=== PATIENT | female | born 1955 | race Caucasian/White ===

== ENCOUNTER → 2017-12-21 | Outpatient (CLI) | payer BC, OTHER | END | disposition home or self-care (01) | LOC: ECHO 08:38 | DX: I42.8 Other cardiomyopathies (principal); I08.1 Rheumatic disorders of both mitral and tricuspid valves; R60.0 Localized edema | CPT/HCPCS: 93306; 93970 ==

== ENCOUNTER 2018-01-02 08:44 | Observation (INO) | payer BC, OTHER ==
[2018-01-02] MEDS: IV RINGERS,LACTATED 1000ML 1,000 ML IV (07:00)
[~2018-01-02 08:44] MED LIST: LIDOCAINE 1% PF 2 ML VIAL. ID; MORPHINE SULFATE 4 MG/ML DISP.SYRIN. IV; ONDANSETRON PF 4 MG/2 ML VIAL. IV; PROCHLORPERAZINE 10 MG/2 ML VIAL. IV; fentaNYL PF VIAL 100 MCG/2 ML VIAL IV
[2018-01-02] MEDS: VANCOMYCIN 1GM IVPB FOR OMNI 250 ML IV (09:00)
[2018-01-02] MEDS: BACITRACIN 50,000 UNIT in IV NORMAL SALINE 250ML 250 ML IRR (09:00)
[2018-01-02 09:25] LABS: HEMATOCRIT 35.6 % (36.0-47.0); HEMOGLOBIN 11.8 g/dL (12.0-15.5); MEAN CORPUSCULAR HEMOGLOBIN 31 pg (25-35); MEAN CORPUSCULAR HGB CONC 33 g/dL (31-37); MEAN CORPUSCULAR VOLUME 93 fL (79-100); PLATELET COUNT 230 x10^3/uL (140-400); RED BLOOD COUNT 3.83 x10^6/uL (3.50-5.40); RED CELL DISTRIBUTION WIDTH 14.8 % (11.5-14.5)
[2018-01-02 09:35] LABS: ANION GAP 6 (6-14); BLOOD UREA NITROGEN 15 mg/dL (7-20); CALCIUM 9.3 mg/dL (8.5-10.1); CARBON DIOXIDE 33 mmol/L (21-32); CHLORIDE 103 mmol/L (98-107); CREATININE 1.2 mg/dL (0.6-1.0); GFR 45.4; GLUCOSE 105 mg/dL (70-99); POTASSIUM 4.2 mmol/L (3.5-5.1); SODIUM 142 mmol/L (136-145)
[2018-01-02 09:45] LABS: PARTIAL THROMBOPLASTIN TIME 28 SEC (24-38); PROTHROMBIN TIME PATIENT 12.3 SEC (11.7-14.0)
[2018-01-02] MEDS ORDERED: PROPOFOL 100 ML IV (11:22)
[2018-01-02] MEDS ORDERED: IODIXANOL 320MG/ML 50ML VIAL. (11:26)
[2018-01-02] MEDS ORDERED: LIDOCAINE 2%/EPI 1:100,000 20 ML VIAL. (11:26)
[2018-01-02] MEDS ORDERED: MIDAZOLAM HCL/PF 2 MG/2 ML VIAL. (11:41)
[2018-01-02] MEDS ORDERED: fentaNYL PF VIAL 100 MCG/2 ML VIAL (11:41)
[2018-01-02] MEDS ORDERED: PROPOFOL 20 ML IV (11:42)
[2018-01-02] MEDS: LIDOCAINE 2%/EPI 1:100,000 20 ML VIAL. IJ (13:30)
[2018-01-02] MEDS: ceFAZolin SODIUM 1 GM in IV DEXTROSE 5% 50 ML IV (13:30)
[2018-01-02] MEDS ORDERED: CONTRAST GIVEN MC (13:30)
[2018-01-02] MEDS: IODIXANOL 320MG/ML 50ML VIAL. IV (13:30)
[2018-01-02] MEDS ORDERED: NO ANTICOAGULANT THERAPY. MC (15:15)
[2018-01-02 15:28] LABS: POC GLUCOSE 87 mg/dL (70-99)
[2018-01-02 16:15] LABS: POC GLUCOSE 82 mg/dL (70-99)
[2018-01-02] MEDS ORDERED: oxyCODONE/APAP 5/325 1 TAB TABLET PO (18:15)
[2018-01-02] MEDS: FERROUS SULFATE 325 MG TABLET. PO (18:25)
[2018-01-02] MEDS: CHOLECALCIFEROL (VITAMIN D3) 1,000 UNIT TABLET PO (18:28)
[2018-01-02] MEDS: oxyCODONE/APAP 5/325 1 TAB TABLET PO (18:30)
[2018-01-02] MEDS: IPRATRPIUM/ALBUTEROL 0.5/2.5MG 3 ML NEBU. NEB (20:47)
[2018-01-02 20:48] LABS: POC GLUCOSE 127 mg/dL (70-99)
[2018-01-02] MEDS: GABAPENTIN 100 MG CAPSULE. PO (21:48)
[2018-01-02] MEDS: rOPINIRole 1 MG TABLET. PO (21:48)
[2018-01-02] MEDS: TAMSULOSIN 0.4 MG CAP.ER.24H. PO (21:48)
[2018-01-03] MEDS: VANCOMYCIN 1 GM in IV DEXTROSE 5% 250 ML IV (00:19)
[2018-01-03] MEDS: LEVOTHYROXINE 50 MCG TABLET PO (06:40)
[2018-01-03] MEDS: oxyCODONE/APAP 5/325 1 TAB TABLET PO ×2 (06:43→11:40)
[2018-01-03 07:50] LABS: POC GLUCOSE 101 mg/dL (70-99)
[2018-01-03] MEDS: CHOLECALCIFEROL (VITAMIN D3) 1,000 UNIT TABLET PO (08:38)
[2018-01-03] MEDS: FERROUS SULFATE 325 MG TABLET. PO (08:38)
[2018-01-03] MEDS: ROFLUMILAST 500 MCG TABLET. PO (08:38)
[2018-01-03] MEDS: GABAPENTIN 100 MG CAPSULE. PO (08:38)
[2018-01-03] MEDS: PANTOPRAZOLE 40 MG TABLET.DR. PO (08:38)
[2018-01-03] MEDS: POTASSIUM CITRATE 10 MEQ TABLET.ER PO (08:39)
[2018-01-03] MEDS: TORSEMIDE 20 MG TABLET. PO (09:00)
[2018-01-03] MEDS: IPRATRPIUM/ALBUTEROL 0.5/2.5MG 3 ML NEBU. NEB ×2 (09:02→12:54)
[2018-01-03 12:08] LABS: POC GLUCOSE 90 mg/dL (70-99)
[2018-01-03] MEDS ORDERED: MAGNESIUM OXIDE 400 MG TABLET PO (13:00)
[2018-01-03] MEDS ORDERED: AMITRIPTYLINE HCL 10 MG TABLET. PO (21:00)
[2018-01-03] MEDS ORDERED: ATORVASTATIN CALCIUM 20 MG TABLET PO (21:00)
[2018-01-05] MEDS ORDERED: metFORMIN 500 MG TABLET PO (08:00)
[2018-01-09] MEDS ORDERED: NON FORMULARY ITEM (Alendronate Sodium 1 TAB) PO (09:00)
== END 2018-01-03 13:55 | disposition home or self-care (01) ==
LOC: SURG 08:44 → 2 SOUTH 09:18
DX: I42.8 Other cardiomyopathies (principal); I49.9 Cardiac arrhythmia, unspecified; E11.9 Type 2 diabetes mellitus without complications; J44.9 Chronic obstructive pulmonary disease, unspecified; E78.5 Hyperlipidemia, unspecified; I50.22 Chronic systolic (congestive) heart failure; I11.0 Hypertensive heart disease with heart failure
CPT/HCPCS: 33225; 33249; 36415; 71045; 80048; 82962; 85027; 85610; 85730; 93566; 93641; 94640; 94760; 96365; 96367; C1769; C1777; C1882; C1892; C1898; C1900; G0378; G0379; J0690; J2250; J2704; J3010; J3370; J3490; J7050; J7620

== ENCOUNTER → 2018-03-24 | Outpatient (CLI) | payer OTHER, BC ==
[2018-03-24 14:02] LABS: ADD MAN DIFF? NO
[2018-03-24 14:09] LABS: BASO # 0.1 x10^3/uL (0.0-0.2); BASO % 1 % (0-3); EOS # 0.2 x10^3/uL (0.0-0.7); EOS % 2 % (0-3); HEMATOCRIT 36.5 % (36.0-47.0); HEMOGLOBIN 12.7 g/dL (12.0-15.5); LYMPH # 2.2 x10^3/uL (1.0-4.8); LYMPH % 23 % (24-48); MEAN CORPUSCULAR HEMOGLOBIN 32 pg (25-35); MEAN CORPUSCULAR HGB CONC 35 g/dL (31-37); MEAN CORPUSCULAR VOLUME 93 fL (79-100); MONO # 0.6 x10^3/uL (0.0-1.1); MONO % 7 % (0-9); NEUT # 6.5 x10^3uL (1.8-7.7); NEUT % 68 % (31-73); PLATELET COUNT 267 x10^3/uL (140-400); RED BLOOD COUNT 3.94 x10^6/uL (3.50-5.40); RED CELL DISTRIBUTION WIDTH 13.5 % (11.5-14.5); WHITE BLOOD COUNT 9.6 x10^3/uL (4.0-11.0)
[2018-03-24 14:29] LABS: ALBUMIN 3.5 g/dL (3.4-5.0); ALBUMIN/GLOBULIN RATIO 0.9 (1.0-1.7); ALK PHOS 74 U/L (46-116); ALT (SGPT) 25 U/L (14-59); ANION GAP 7 (6-14); AST (SGOT) 23 U/L (15-37); BLOOD UREA NITROGEN 12 mg/dL (7-20); BUN/CREATININE RATIO 10 (6-20); CALCIUM 9.8 mg/dL (8.5-10.1); CARBON DIOXIDE 30 mmol/L (21-32); CHLORIDE 105 mmol/L (98-107); CREATININE 1.2 mg/dL (0.6-1.0); GFR 45.2; GLUCOSE 131 mg/dL (70-99); POTASSIUM 3.9 mmol/L (3.5-5.1); SODIUM 142 mmol/L (136-145); TOTAL BILIRUBIN 0.2 mg/dL (0.2-1.0); TOTAL PROTEIN 7.2 g/dL (6.4-8.2)
[2018-03-24 14:39] LABS: NT-PRO BNP 258 pg/mL (0-124)
== END | disposition home or self-care (01) ==
LOC: LAB 13:45
DX: Z48.812 Encounter for surgical aftercare following surgery on the circulatory system (principal); I11.0 Hypertensive heart disease with heart failure; E11.9 Type 2 diabetes mellitus without complications; I50.22 Chronic systolic (congestive) heart failure; E03.9 Hypothyroidism, unspecified; E78.5 Hyperlipidemia, unspecified; J44.9 Chronic obstructive pulmonary disease, unspecified; Z95.810 Presence of automatic (implantable) cardiac defibrillator
CPT/HCPCS: 36415; 71046; 80053; 83880; 85025

== ENCOUNTER → 2018-04-07 | Outpatient (CLI) | payer OTHER ==
[2018-04-07 15:01] LABS: ANION GAP 7 (6-14); BLOOD UREA NITROGEN 12 mg/dL (7-20); CALCIUM 8.8 mg/dL (8.5-10.1); CARBON DIOXIDE 31 mmol/L (21-32); CHLORIDE 102 mmol/L (98-107); CREATININE 1.3 mg/dL (0.6-1.0); GFR 41.2; GLUCOSE 96 mg/dL (70-99); POTASSIUM 3.9 mmol/L (3.5-5.1); SODIUM 140 mmol/L (136-145)
== END | disposition home or self-care (01) ==
LOC: LAB 14:19
DX: I42.8 Other cardiomyopathies (principal); I11.0 Hypertensive heart disease with heart failure; I50.22 Chronic systolic (congestive) heart failure; E11.9 Type 2 diabetes mellitus without complications; J44.9 Chronic obstructive pulmonary disease, unspecified; E78.00 Pure hypercholesterolemia, unspecified; E78.5 Hyperlipidemia, unspecified
CPT/HCPCS: 36415; 80048

== ENCOUNTER → 2018-04-17 | Outpatient (CLI) | payer OTHER ==
[2018-04-17 11:24] LABS: ANION GAP 6 (6-14); BLOOD UREA NITROGEN 14 mg/dL (7-20); CALCIUM 9.1 mg/dL (8.5-10.1); CARBON DIOXIDE 33 mmol/L (21-32); CHLORIDE 101 mmol/L (98-107); CREATININE 1.3 mg/dL (0.6-1.0); GFR 41.2; GLUCOSE 122 mg/dL (70-99); POTASSIUM 3.6 mmol/L (3.5-5.1); SODIUM 140 mmol/L (136-145)
== END | disposition home or self-care (01) ==
LOC: LAB 10:49
DX: I42.8 Other cardiomyopathies (principal)
CPT/HCPCS: 36415; 80048

== ENCOUNTER → 2018-06-15 | Outpatient (CLI) | payer OTHER ==
[2018-01-03 11:34] VITALS: BP 90/44
[~2018-06-15] MED LIST changes: +ALEN70TA5 PO; +AMIT10TA PO; +ASPI-482 PO; +ASPI-630 PO; +ATOR20TA58 PO; +CARV3.12 PO; +CHOL10003 PO; +FERR325T14 PO; +GABA-585 PO; +LEVO50TA5 PO; +LIDO700A39 TP; -LIDOCAINE 1% PF 2 ML VIAL. ID; +LISI10TA2 PO; +MAGN400T22 PO; +METF500T16 PO; +METO-239 PO; -MORPHINE SULFATE 4 MG/ML DISP.SYRIN. IV; -ONDANSETRON PF 4 MG/2 ML VIAL. IV; +OXYC-323 PO; +PANT40TA3 PO; +POTA10TA17 PO; +PROAIR HFA8.5 GM INH; -PROCHLORPERAZINE 10 MG/2 ML VIAL. IV; +ROFL500T7 PO; +ROPI1TAB PO; +TAMS0.4C97 PO; +TORS20TA2 PO; +UMEC1DIS IH; -fentaNYL PF VIAL 100 MCG/2 ML VIAL IV
--- NOTE | 2018-06-15 13:26 | KCIC ---
EXAM: Dual energy x-ray absorptiometry (DEXA). HISTORY: Postmenopausal female presents for osteoporosis screening. COMPARISON: None. TECHNIQUE: Dual energy x-ray absorptiometry of the lumbar spine and left hip was performed. Calculation of bone mineral density based on standard deviations above or below the expected young adult normal value (T-score) was completed. FINDINGS: The average bone mineral density in the 1st through 4th lumbar vertebrae is 1.145 g/cmxcm, corresponding with a T-score of 0.9. The average total bone mineral density in the left hip is 0.771 g/cmxcm, corresponding with a T-score of -1.4. IMPRESSION: 1. Normal bone mineral density measured the lumbar spine. 2. Osteopenia measured at the left hip. Note: Definitions established by the World Health Organization: 1. Normal: T-score is -1.0 or above. 2. Osteopenia: T-score is between -1.0 and -2.5 . 3. Osteoporosis: T-score is -2.5 or below. Electronically signed by: Peyton Pizano MD (06/15/2018 1:23 PM) [place] [id number]
== END | disposition home or self-care (01) ==
LOC: KCIC DEXA 12:48
PROVIDERS: ATTEND Family Medicine
DX: M85.88 Other specified disorders of bone density and structure, other site (principal)
CPT/HCPCS: 77080

== ENCOUNTER 2018-06-24 17:36 | Emergency (ER) | payer OTHER ==
[~2018-06-24] VITALS: Ht 162.6 cm; Wt 59.0 kg
[2018-06-24 18:06] VITALS: BP 117/55
[2018-06-24] MEDS ORDERED: HYDROcodone/APAP 5/325MG 1 TAB TABLET PO ONE (18:30)
--- NOTE | 2018-06-24 19:29 | RAD ---
EXAM: 3 views left shoulder DATE: 06/24/2018 6:09 PM INDICATION: popped shoulder while lifting grankid COMPARISON: No Prior FINDINGS/ IMPRESSION: AC joint degenerative changes are seen. No evidence of acute fracture or dislocation. No AC joint offset or coracoclavicular widening. Humeral head is not high riding. Cardiac generator pack obscures a portion left chest. Electronically signed by: Bashir Pandya MD (06/24/2018 7:25 PM) [facility]
--- NOTE | 2018-06-24 19:34 | PHYS DOC ---
Past Medical History Past Medical History: CAD, CHF, COPD, Diabetes-Type II, High Cholesterol, Hypertension, Hypothyroid Past Surgical History: Cholecystectomy, , Hysterectomy, Knee Replacement Alcohol Use: None Drug Use: None Adult General Chief Complaint Chief Complaint: SHOULDER INJURY HPI HPI Patient is a 63 year old F who reports she was lifting her grandchild today and felt a "pop" in her L shoulder and is now having pain. She denies previous injury or surgery to this shoulder. She did have a L upper chest defibrillator placed in January and was worried about this as well. Review of Systems Review of Systems Constitutional: Denies fever or chills Respiratory: Denies cough or shortness of breath Cardiovascular: Denies chest pain. GI: Denies abdominal pain, nausea, vomiting, bloody stools or diarrhea Musculoskeletal: Denies back pain or neck pain. Reports L shoulder pain. Integument: Denies rash or skin lesions Neurologic: Denies headache, focal weakness or sensory changes All other systems were reviewed and found to be within normal limits, except as documented in this note. Current Medications Current Medications Current Medications Medications (Trade) Dose Ordered Sig/Keshav Start Time Stop Time Status Last Admin Dose Admin Acetaminophen/ Hydrocodone Bitart (Lortab 5/325) 2 tab 1X ONCE 06/24/18 18:30 06/24/18 18:39 DC 06/24/18 18:42 2 TAB Allergies Allergies Allergies Coded Allergies Type Severity Reaction Last Updated Verified ibuprofen Allergy Severe Swelling 09/22/17 Yes naproxen Allergy Severe Shortness of Air 09/22/17 Yes piperacillin Allergy Severe Swelling 09/22/17 Yes tazobactam Allergy Severe Swelling 09/22/17 Yes Physical Exam Physical Exam Constitutional: Well developed, well nourished, no acute distress, non-toxic appearance. Neck: Normal range of motion, no tenderness, supple, no stridor. Cardiovascular:Heart rate regular rhythm, no murmur Lungs & Thorax: Bilateral breath sounds clear to auscultation Abdomen: Bowel sounds normal, soft, no tenderness, no masses, no pulsatile masses. Skin: Warm, dry, no erythema, no rash. Back: No tenderness, no CVA tenderness. Extremities: No cyanosis, no clubbing, ROM intact, no edema. L shoulder painful with abduction past 90 degrees and external rotation. No obvious deformity noted. Neurologic: Alert and oriented X 3, normal motor function, normal sensory function, no focal deficits noted. [] Psychologic: Affect normal, judgement normal, mood normal. [] Current Patient Data Vital Signs Vital Signs Date Time Temp Pulse Resp B/P (MAP) Pulse Ox O2 Delivery O2 Flow Rate FiO2 06/24/18 18:06 98.1 97 18 117/55 (75) 96 Room Air 98.1 EKG EKG [] Radiology/Procedures Radiology/Procedures L shoulder xray shows some degenerative changes of AC joint but no acute bony injury. Course & Med Decision Making Course & Med Decision Making Pertinent Labs and Imaging studies reviewed. (See chart for details) Discussed need for f/u with orthopedics for further evaluation. Pt placed in sling for comfort but encouraged to continue ROM exercises. Pt to rest and ice. Name for ortho f/u provided. Dragon Disclaimer Dragon Disclaimer This electronic medical record was generated, in whole or in part, using a voice recognition dictation system. Departure Departure Impression: Primary Impression: Left shoulder strain Disposition: HOME, SELF-CARE Condition: STABLE Referrals: ANTONIO CHRISTIAN DO (PCP) CECELIA OLIVER MD Patient Instructions: Shoulder Sprain Additional Instructions: Rest, Ice, Follow up with Orthopedics. Scripts Hydrocodone/Apap 5-325 (NORCO 5-325 TABLET) 1 Each Tablet 1-2 TAB PO Q4-6HRS, #15 TAB Prov: SIMRAN MURRY 06/24/18 SIMRAN MURRY Jun 24, 2018 19:34
[2018-06-24] MEDS ORDERED: HYDR-971 PO (19:36)
== END 2018-06-24 19:49 | disposition home or self-care (01) ==
LOC: ER 17:36
DX: S46.912A Strain of unspecified muscle, fascia and tendon at shoulder and upper arm level, left arm, initial encounter (principal); I11.0 Hypertensive heart disease with heart failure; I50.9 Heart failure, unspecified; E78.00 Pure hypercholesterolemia, unspecified; I25.10 Atherosclerotic heart disease of native coronary artery without angina pectoris; J44.9 Chronic obstructive pulmonary disease, unspecified; E03.9 Hypothyroidism, unspecified; E11.9 Type 2 diabetes mellitus without complications; Z88.1 Allergy status to other antibiotic agents; Z88.5 Allergy status to narcotic agent; Z88.8 Allergy status to other drugs, medicaments and biological substances; X50.9XXA Other and unspecified overexertion or strenuous movements or postures, initial encounter; Y93.89 Activity, other specified; Y92.89 Other specified places as the place of occurrence of the external cause; Y99.8 Other external cause status
CPT/HCPCS: 73030; 99284

== ENCOUNTER 2018-10-25 15:42 | Inpatient (IN) | payer OTHER ==
[~2018-10-25] VITALS: Ht 152.4 cm; Wt 62.6 kg
[~2018-10-25 15:42] MED LIST changes: +ALBU2.5V8 INH; -ALEN70TA5 PO; +ALEN70TA6 PO; +DOXY100T PO; +GUAI600T47 PO; +HYDR-2769 PO; +HYDR-3164 PO; +LIDO700A21 TP; -LIDO700A39 TP; +ONDA8TAB12 PO; -OXYC-323 PO; +OXYC1TAB15 PO; -PANT40TA3 PO; +PANT40TA77 PO; +PRED-220 PO; -PROAIR HFA8.5 GM INH; +SACU1TAB7 PO
[2018-10-25] MEDS ORDERED: methylPREDNISolone SOD SUCC PF 125 MG/2 ML VIAL. IV ONE (16:00)
[2018-10-25] MEDS ORDERED: ACETAMINOPHEN 325 MG TABLET. PO ONE (16:00)
[2018-10-25] MEDS ORDERED: IPRATRPIUM/ALBUTEROL 0.5/2.5MG 3 ML NEBU. NEB ONE ×2 (16:00→17:00)
[2018-10-25 16:05] LABS: BASO % 0 % (0-3); EOS % 0 % (0-3); HEMATOCRIT 34.2 % (36.0-47.0); HEMOGLOBIN 11.5 g/dL (12.0-15.5); LYMPH # 0.3 x10^3/uL (1.0-4.8); LYMPH % 9 % (24-48); MEAN CORPUSCULAR HEMOGLOBIN 32 pg (25-35); MEAN CORPUSCULAR HGB CONC 34 g/dL (31-37); MEAN CORPUSCULAR VOLUME 95 fL (79-100); MONO # 0.3 x10^3/uL (0.0-1.1); MONO % 10 % (0-9); NEUT # 2.6 x10^3uL (1.8-7.7); NEUT % 80 % (31-73); PLATELET COUNT 201 x10^3/uL (140-400); RED BLOOD COUNT 3.61 x10^6/uL (3.50-5.40); RED CELL DISTRIBUTION WIDTH 13.6 % (11.5-14.5); WHITE BLOOD COUNT 3.2 x10^3/uL (4.0-11.0)
--- NOTE | 2018-10-25 16:12 | PHYS DOC ---
Past Medical History Past Medical History: CAD, CHF, COPD, Diabetes-Type II, High Cholesterol, Hypertension, Hypothyroid Past Surgical History: Cholecystectomy, , Hysterectomy, Knee Replacement Alcohol Use: None Drug Use: None Adult General Chief Complaint Chief Complaint: SHORTNESS OF BREATH HPI HPI 63 y/o female presents to ER via POV for c/o SOA. Patient reports over the past few days her symptoms have been gradually worsening today she had a 101.4 temperature at home. Patient states she's had crease of shortness of air today. Patient reports she is O2 dependent with history of COPD. She reports she is a daily smoker of less than half a pack per day. Patient reports she's had intermittent nausea with episode of diarrhea today. Patient reports she has had some chest tightness which has been increasing since shortness of air increase. She denies abd pain, swelling, urinary sxs, or lethargy. She denies recent travel or other illness. She reports she did have flu vaccine 2018. Review of Systems Review of Systems Constitutional: Reports fever/chills and generalized fatigue Eyes: Denies change in visual acuity, redness, or eye pain [] HENT: Denies nasal congestion or sore throat [] Respiratory: Reports SOA with nonprod. cough- uses on home O2 Cardiovascular: Reports chest pain/tightness GI: Denies abdominal pain, bloody stools. Reports intermittent nausea with 1 episode of V/D : Denies dysuria or hematuria [] Musculoskeletal: Denies back/neck pain or joint pain [] Integument: Denies rash, swelling or skin lesions [] Neurologic: Denies headache, focal weakness or sensory changes [] Endocrine: Denies polyuria or polydipsia [] All other systems were reviewed and found to be within normal limits, except as documented in this note. Current Medications Current Medications Current Medications Medications (Trade) Dose Ordered Sig/Keshav Start Time Stop Time Status Last Admin Dose Admin Acetaminophen (Tylenol) 650 mg 1X ONCE 10/25/18 16:00 10/25/18 16:01 DC 10/25/18 16:14 650 MG Albuterol/ Ipratropium (Duoneb) 3 ml 1X ONCE 10/25/18 17:00 10/25/18 17:06 DC 10/25/18 18:00 3 ML Azithromycin 250 ml @ 250 mls/hr 1X ONCE 10/25/18 17:00 10/25/18 17:59 Cancel Ceftriaxone Sodium (Rocephin) 1 gm 1X ONCE 10/25/18 17:00 10/25/18 17:01 UNV Methylprednisolone Sodium Succinate (SOLU-Medrol 125MG VIAL) 125 mg 1X ONCE 10/25/18 16:00 10/25/18 16:01 DC 10/25/18 16:16 125 MG Sodium Chloride 1,000 ml @ 1,000 mls/hr 1X ONCE 10/25/18 16:45 10/25/18 17:50 DC 10/25/18 16:36 1,000 MLS/HR Allergies Allergies Allergies Coded Allergies Type Severity Reaction Last Updated Verified ibuprofen Allergy Severe Swelling 08/09/18 Yes piperacillin Allergy Severe Swelling 08/09/18 Yes tazobactam Allergy Severe Swelling 08/09/18 Yes Physical Exam Physical Exam Constitutional: Well developed, well nourished, moderate distress, non-toxic appearance. Speaking in fragmented sentences HENT: Normocephalic, atraumatic, bilateral external ears normal, oropharynx moist, no oral exudates, nose normal. [] Eyes: Pupils equal, no nystag, conjunctiva normal, no discharge. [] Neck: Normal range of motion, no tenderness, supple, no stridor. [] Cardiovascular: Tachycardic heart rate regular rhythm, no murmur [] Lungs & Thorax: Audible expiratory wheezing prior to exam. Diminished air movement in all lung connell- with less movement in bases. Expiratory wheezing in bilat. upper lobes. Resp. equal/labored Abdomen: Bowel sounds normal, soft, no tenderness, no masses, no pulsatile masses. [] Skin: Warm, dry, no erythema, no rash. [] Back: No tenderness, no CVA tenderness. [] Extremities: No tenderness, no cyanosis, no clubbing, ROM intact, no edema. [] Neurologic: Alert and oriented X 3, normal motor function, normal sensory function, no focal deficits noted. [] Psychologic: Affect normal, judgement normal, mood normal. [] Current Patient Data Vital Signs Vital Signs Date Time Temp Pulse Resp B/P (MAP) Pulse Ox O2 Delivery O2 Flow Rate FiO2 10/25/18 17:00 105 33 108/55 (72) 94 Nasal Cannula 2.0 10/25/18 15:43 99.8 99.8 Lab Values Laboratory Tests Test 10/25/18 15:52 10/25/18 15:53 Influenza Type A Antigen Negative (NEGATIVE) Influenza Type B Antigen Negative (NEGATIVE) White Blood Count 3.2 x10^3/uL (4.0-11.0) L Red Blood Count 3.61 x10^6/uL (3.50-5.40) Hemoglobin 11.5 g/dL (12.0-15.5) L Hematocrit 34.2 % (36.0-47.0) L Mean Corpuscular Volume 95 fL (79-100) Mean Corpuscular Hemoglobin 32 pg (25-35) Mean Corpuscular Hemoglobin Concent 34 g/dL (31-37) Red Cell Distribution Width 13.6 % (11.5-14.5) Platelet Count 201 x10^3/uL (140-400) Neutrophils (%) (Auto) 80 % (31-73) H Lymphocytes (%) (Auto) 9 % (24-48) L Monocytes (%) (Auto) 10 % (0-9) H Eosinophils (%) (Auto) 0 % (0-3) Basophils (%) (Auto) 0 % (0-3) Neutrophils # (Auto) 2.6 x10^3uL (1.8-7.7) Lymphocytes # (Auto) 0.3 x10^3/uL (1.0-4.8) L Monocytes # (Auto) 0.3 x10^3/uL (0.0-1.1) Eosinophils # (Auto) 0.0 x10^3/uL (0.0-0.7) Basophils # (Auto) 0.0 x10^3/uL (0.0-0.2) Segmented Neutrophils % 65 % (35-66) Band Neutrophils % 15 % (0-9) H Lymphocytes % 9 % (24-48) L Atypical Lymphocytes % (Manual) 1 % (0-0) H Monocytes % 9 % (0-10) Eosinophils % 1 % (0-5) Platelet Estimate Adequate (ADEQUATE) Sodium Level 138 mmol/L (136-145) Potassium Level 3.7 mmol/L (3.5-5.1) Chloride Level 100 mmol/L (98-107) Carbon Dioxide Level 32 mmol/L (21-32) Anion Gap 6 (6-14) Blood Urea Nitrogen 16 mg/dL (7-20) Creatinine 1.4 mg/dL (0.6-1.0) H Estimated GFR (Cockcroft-Gault) 37.9 BUN/Creatinine Ratio 11 (6-20) Glucose Level 96 mg/dL (70-99) Lactic Acid Level 1.3 mmol/L (0.4-2.0) Calcium Level 8.8 mg/dL (8.5-10.1) Magnesium Level 1.6 mg/dL (1.8-2.4) L Total Bilirubin 0.2 mg/dL (0.2-1.0) Aspartate Amino Transferase (AST) 42 U/L (15-37) H Alanine Aminotransferase (ALT) 22 U/L (14-59) Alkaline Phosphatase 75 U/L (46-116) Troponin I Quantitative < 0.017 ng/mL (0.000-0.055) BA-Sxb-G-Type Natriuretic Peptide 1103 pg/mL (0-124) H Total Protein 8.2 g/dL (6.4-8.2) Albumin 2.8 g/dL (3.4-5.0) L Albumin/Globulin Ratio 0.5 (1.0-1.7) L Laboratory Tests 10/25/18 15:53 Laboratory Tests 10/25/18 15:53 EKG EKG EKG obtained 10/25/18 at [address] Marti Sinus tachycardia PACs Rate 113 No STEMI Radiology/Procedures Radiology/Procedures PROCEDURE: CHEST AP ONLY Single view of the chest. 10/25/2018 3:59 PM Indication: SOA, N,V,D X1 DAY, FEVER. HX OF COPD Comparison: Chest radiograph August 12, 2018 Findings: No pneumothorax or pleural effusion is identified. No new focal consolidative infiltrate is seen. Multilead pacemaking/ICD device from a left subclavian approach is similar in appearance. No acute osseous changes are identified. Diffuse interstitial coarsening is similar to comparison study. Lordotic projection noted. IMPRESSION: No evidence of acute cardiopulmonary process or acute change from prior study. Electronically signed by: Tejas Cottrell MD (10/25/2018 4:23 PM) [facility] DICTATED and SIGNED BY: TEJAS COTTRELL MD DATE: 10/25/18 5127 Course & Med Decision Making Course & Med Decision Making Pertinent Labs and Imaging studies reviewed. (See chart for details) 1640: Pt was evaluated in the ER for complaints of increased shortness of air over the past few days with fever earlier. Patient was given DuoNeb treatment and dose of IV Solu-Medrol 125 mg. Following DuoNeb she reports slight improvement in shortness of air however continues to have labored respirations with diminished lung sounds. Patient does continue to have slight expiratory wheeze in upper lung connell. Discussed test results with chest x-ray showing no acute findings. EKG with no acute ST elevation or STEMI and troponin was < 0.017. WBCs at 3.2- patient reports she had her IgG treatment yesterday which was not mentioned during initial discussion. Patient does have 15 bands on her differential. Blood cultures were obtained- lactic acid NL at 1.3. Neg. flu test. With patient being daily smoker and bandemia on differential- will start patient on Levaquin while in the ER- she was also provided with dose of tylenol and NS fld bolus. Will provide patient with second DuoNeb treatment while in the ER. Patient remains tachycardic at 106-she was afebrile at 99.8. Discussed admission for further care and monitoring and both patient and her are agreeable with this plan. 1700: Spoke with Dr. Rashid, hospitalist and discussed pt's case and admit plan. Will admit to Med/Tele and consult pulmonology with admit orders. Dragon Disclaimer Dragon Disclaimer This electronic medical record was generated, in whole or in part, using a voice recognition dictation system. Departure Departure Impression: Primary Impression: COPD exacerbation Additional Impression: Bandemia Disposition: 09 ADMITTED INPATIENT Admitting Physician: Kaley Rashid Condition: STABLE Referrals: ANTONIO CHRISTIAN DO (PCP) Problem Qualifiers ELPIDIO RAYMUNDO APRN Oct 25, 2018 16:12
[2018-10-25 16:19] LABS: CALCIUM 8.8 mg/dL (8.5-10.1); CREATININE 1.4 mg/dL (0.6-1.0); GFR 37.9; POTASSIUM 3.7 mmol/L (3.5-5.1)
[2018-10-25 16:20] LABS: INFLUENZA A PATIENT NEGATIVE (NEGATIVE); INFLUENZA B PATIENT NEGATIVE (NEGATIVE)
[2018-10-25 16:25] LABS: ALBUMIN 2.8 g/dL (3.4-5.0); ALBUMIN/GLOBULIN RATIO 0.5 (1.0-1.7); MAGNESIUM 1.6 mg/dL (1.8-2.4); TOTAL BILIRUBIN 0.2 mg/dL (0.2-1.0); TOTAL PROTEIN 8.2 g/dL (6.4-8.2)
--- NOTE | 2018-10-25 16:28 | RAD ---
Single view of the chest. 10/25/2018 3:59 PM Indication: SOA, N,V,D X1 DAY, FEVER. HX OF COPD Comparison: Chest radiograph August 12, 2018 Findings: No pneumothorax or pleural effusion is identified. No new focal consolidative infiltrate is seen. Multilead pacemaking/ICD device from a left subclavian approach is similar in appearance. No acute osseous changes are identified. Diffuse interstitial coarsening is similar to comparison study. Lordotic projection noted. IMPRESSION: No evidence of acute cardiopulmonary process or acute change from prior study. Electronically signed by: Tejas Arora MD (10/25/2018 4:23 PM) [facility]
[2018-10-25 16:38] LABS: % ATYL 1 % (0-0); % BANDS 15 % (0-9); % EOS 1 % (0-5); % LYMPHS 9 % (24-48); % MONOS 9 % (0-10); % SEGS 65 % (35-66); PLT ESTIMATE ADEQUATE (ADEQUATE)
[2018-10-25] MEDS ORDERED: IV NORMAL SALINE 1000ML BAG 1,000 ML IV ONE (16:45)
[2018-10-25] MEDS ORDERED: cefTRIAXone IV Push 1 GM VIAL. IVP ONE (17:00)
[2018-10-25] MEDS ORDERED: AZITHRMYCN 500MG IVPB FOR OMNI 250 ML IV ONE (17:00)
[2018-10-25] MEDS ORDERED: ACETAMINOPHEN 325 MG TABLET. PO PRN (17:15)
[2018-10-25] MEDS ORDERED: NON FORMULARY ITEM (Ondansetron (Zofran Odt) 8 MG) PO PRN (17:30)
[2018-10-25] MEDS ORDERED: guaiFENesin DM 200MG/20MG 10 ML SYRUP PO PRN (17:30)
[2018-10-25] MEDS ORDERED: ONDANSETRON ODT 4 MG TAB.RAPDIS. PO PRN (17:30)
[2018-10-25] MEDS ORDERED: oxyCODONE/APAP 5/325 1 TAB TABLET PO PRN (17:30)
[2018-10-25] MEDS ORDERED: ONDANSETRON PF 4 MG/2 ML VIAL. IV PRN (17:30)
[2018-10-25] MEDS ORDERED: diphenhydrAMINE HCL 25 MG CAPSULE PO PRN (17:30)
--- NOTE | 2018-10-25 17:43 | EKG ---
[facility] [address] [place] [address] Test Date: 2018-10-25 Test Time: 15:47:20 Pat Name: JAYCOB CRAWFORD Department: Room: [facility] Gender: F Physical Therapy Manager: : 1955 Requested By: ELPIDIO RAYMUNDO Order Number: [id number] Reading MD: Octaviano Driscoll Measurements Intervals Mobile Rate: 113 P: 60 SD: 138 QRS: -137 QRSD: 116 T: 56 QT: 336 QTc: 460 Interpretive Statements ATRIAL SENSED VENTRICULAR PACED RHYTHM Electronically Signed On 11-01-2018 17:26:23 [employer]AGE [employer]CH[employer] by Octaviano Driscoll
[2018-10-25] MEDS: ROFLUMILAST 500 MCG TABLET. PO SCH (18:00)
[2018-10-25] MEDS: LEVOTHYROXINE 50 MCG TABLET PO SCH (18:00)
[2018-10-25] MEDS: POTASSIUM CITRATE 10 MEQ TABLET.ER PO SCH (18:00)
[2018-10-25] MEDS: METOPROLOL SUCC 24HR ER 25 MG TAB.ER.24H. PO SCH (18:00)
[2018-10-25] MEDS: TORSEMIDE 20 MG TABLET. PO SCH (18:00)
[2018-10-25] MEDS: IPRATRPIUM/ALBUTEROL 0.5/2.5MG 3 ML NEBU. NEB SCH (18:01)
[2018-10-25] MEDS ORDERED: ALBUTEROL SULFATE 2.5 MG/3 ML NEBU. NEB PRN (18:15)
[2018-10-25 19:00] VITALS: BP 119/62
[2018-10-25] MEDS ORDERED: levOFLOXacin PER PHARMACY. MC PRN (20:00)
[2018-10-25] MEDS ORDERED: TEMAZEPAM 7.5 MG CAPSULE PO PRN (20:00)
--- NOTE | 2018-10-25 20:02 | PDOC1 ---
History and Physical Date of Admission Date of Admission DATE: 10/25/18 TIME: 19:55 Identification/Chief Complaint Chief Complaint SOA Source Source: Caregiver, Chart review, Patient History of Present Illness History of Present Illness 63 old female who continues to smoke, known COPD and has IgG treatment , usually follows with [facility] pulmonology. Came in in labored breathing and significantly wheezing at the emergency room. On home O2 24/7 at 2 L nasal cannula. Chest x-ray does not show any acute infiltrate but very wheezy even without use of stethoscope. CBC okay. Tachycardic 106 with temperature 101 at home but afebrile at the ER. Blood cultures have been drawn. Got solu 125 at ER and a dose of doxy Past medical history hypertension dyslipidemia hypothyroidism depression Creatinine 1.4 but she is on Lasix at home Still very wheezy tonight Seh denies any sick contacts or recent travels Flu negative Past Medical History Cardiovascular: CHF, HTN, Hyperlipidemia, Other Pulmonary: COPD CENTRAL NERVOUS SYSTEM: Other GI: No pertinent hx Heme/Onc: No pertinent hx Hepatobiliary: No pertinent hx Psych: No pertinent hx Musculoskeletal: Osteoarthritis Rheumatologic: No pertinent hx Infectious disease: No pertinent hx Renal/: No pertinent hx Endocrine: Diabetes, Hypothyroidism Past Surgical History Past Surgical History: Cholecystectomy, , Hysterectomy, Other Family History Family History: Coronary Artery Disease, Hypertension Social History Smoke: 1 pack per day ALCOHOL: none Drugs: None Current Problem List Problem List Problems Medical Problems: (1) Bandemia Status: Acute (2) COPD exacerbation Status: Acute Current Medications Current Medications Current Medications Albuterol/ Ipratropium (Duoneb) 3 ml 1X ONCE NEB Last administered on at 16:13; Start 10/25/18 at 16:00; Stop 10/25/18 at 16:01; Status DC Methylprednisolone Sodium Succinate (SOLU-Medrol 125MG VIAL) 125 mg 1X ONCE IV Last administered on 10/25/18at 16:16; Start 10/25/18 at 16:00; Stop 10/25/18 at 16:01; Status DC Acetaminophen (Tylenol) 650 mg 1X ONCE PO Last administered on 10/25/18at 16:14 ; Start 10/25/18 at 16:00; Stop 10/25/18 at 16:01; Status DC Sodium Chloride 1,000 ml @ 1,000 mls/hr 1X ONCE IV Last administered on at 16:36; Start 10/25/18 at 16:45; Stop 10/25/18 at 17:50; Status DC Ceftriaxone Sodium (Rocephin) 1 gm 1X ONCE IVP ; Start 10/25/18 at 17:00; Stop 10/25/18 at 17:01; Status UNV Azithromycin 250 ml @ 250 mls/hr 1X ONCE IV ; Start 10/25/18 at 17:00; Stop at 17:59; Status Cancel Albuterol/ Ipratropium (Duoneb) 3 ml 1X ONCE NEB Last administered on at 18:00; Start 10/25/18 at 17:00; Stop 10/25/18 at 17:06; Status DC Levofloxacin/ Dextrose 150 ml @ 100 mls/hr 1X ONCE IV Last administered on at 17:58; Start 10/25/18 at 17:15; Stop 10/25/18 at 18:44; Status DC Acetaminophen (Tylenol) 650 mg PRN Q4HRS PRN PO FEVER; Start 10/25/18 at 17:15 ; Stop 10/26/18 at 17:14 Albuterol/ Ipratropium (Duoneb) 3 ml RTQID NEB Last administered on 10/25/18at 18:01; Start 10/25/18 at 20:00; Stop 10/26/18 at 19:59 Benzonatate (Tessalon Perle) 100 mg [id number] PO ; Start 10/25/18 at 21:00 Guaifenesin (Robitussin Dm) 10 ml PRN Q6HRS PRN PO COUGH 1ST CHOICE; Start at 17:30 Diphenhydramine HCl (Benadryl) 25 mg PRN QHS PRN PO INSOMNIA; Start 10/25/18 at 17:30 Ondansetron HCl (Zofran) 4 mg PRN Q6HRS PRN IV NAUSEA/VOMITING; Start 10/25/18 at 17:30 Ondansetron HCl (Zofran Odt) 4 mg PRN Q6HRS PRN PO NAUSEA/VOMITING; Start 10/25 at 17:30 Amitriptyline HCl (Elavil) 20 mg QHS PO ; Start 10/25/18 at 21:00 Aspirin (Ecotrin) 81 mg DAILY07 PO ; Start 10/25/18 at 18:00 Atorvastatin Calcium (Lipitor) 20 mg HS PO ; Start 10/25/18 at 21:00 Vitamin D (Vitamin D3) 1,000 unit DAILY PO ; Start 10/25/18 at 18:00 Ferrous Sulfate (Feosol) 325 mg DAILY08 PO ; Start 10/25/18 at 18:00 Gabapentin (Neurontin) 100 mg TID PO ; Start 10/25/18 at 21:00 Acetaminophen/ Hydrocodone Bitart (Lortab 10/325) 1 tab PRN Q6HRS PRN PO MODERATE-SEVERE PAIN; Start 10/25/18 at 17:30 Acetaminophen/ Hydrocodone Bitart (Lortab 5/325) 1 tab QID PO ; Start 10/25/18 at 21:00 Metoprolol Succinate (Toprol Xl) 12.5 mg DAILY PO ; Start 10/25/18 at 18:00 Oxycodone/ Acetaminophen (Percocet 5/325) 1 tab PRN Q6HRS PRN PO PAIN severe 2nd choice; Start 10/25/18 at 17:30 Pantoprazole Sodium (Protonix) 40 mg DAILY07 PO ; Start 10/25/18 at 18:00 Potassium Citrate (Urocit-K) 20 meq DAILY08 PO ; Start 10/25/18 at 18:00 Non-Formulary Medication (Alendronate Sodium ) 1 tab WEEKLY PO ; Start 11/01/18 at 09:00; Status UNV Levothyroxine Sodium (Synthroid) 50 mcg DAILY06 PO ; Start 10/25/18 at 18:00 Non-Formulary Medication (Ondansetron (Zofran Odt)) 8 mg BID PRN PO NAUSEA/ VOMITING; Start 10/25/18 at 17:30; Status UNV Roflumilast (Daliresp) 500 mcg DAILY PO ; Start 10/25/18 at 18:00 Ropinirole HCl (Requip) 3 mg QHS PO ; Start 10/25/18 at 21:00 Torsemide (Demadex) 20 mg DAILY PO ; Start 10/25/18 at 18:00 Albuterol Sulfate (Ventolin Neb Soln) 2.5 mg PRN Q4HRS PRN NEB SHORTNESS OF BREATH; Start 10/25/18 at 18:15 Methylprednisolone Sodium Succinate (SOLU-Medrol 40MG VIAL) 60 mg Q8HRS IV ; Start 10/25/18 at 22:00 Temazepam (Restoril) 7.5 mg PRN QHS PRN PO INSOMNIA; Start 10/25/18 at 20:00 Active Scripts Active Prednisone (Prednisone) 10 Mg Tablet 30 Mg PO DAILY Mucinex (Guaifenesin) 600 Mg Tablet.er 600 Mg PO BID Hydrocodone-Apap 10-325 (Hydrocodone Bit/Acetaminophen) 1 Each Tablet 1 Tab PO PRN Q6HRS PRN Doxycycline Hyclate 100 Mg Tablet 100 Mg PO BID 5 Days Thor 5-325 Tablet (Acetaminophen/Hydrocodone Bitart) 1 Each Tablet 1-2 Tab PO Q4-6HRS Reported Percocet 5-325 Mg Tablet (Oxycodone/Acetaminophen) 1 Each Tablet 1 Tab PO PRN Q6HRS PRN Zofran Odt (Ondansetron) 8 Mg Tab.rapdis 8 Mg PO BID PRN Aspir 81 (Aspirin) 81 Mg Tablet. 1 Tab PO DAILY Metoprolol Succinate ( Xl ) (Metoprolol Succinate) 25 Mg Tab.er.24h 12.5 Mg PO DAILY Vitamin D3 (Cholecalciferol (Vitamin D3)) 1,000 Unit Tablet 1 Tab PO DAILY Torsemide 20 Mg Tablet 1 Tab PO DAILY Gabapentin (Gabapentin) 100 Mg Capsule 100 Mg PO TID Ferrous Sulfate 325 Mg Tablet 1 Tab PO DAILY Daliresp (Roflumilast) 500 Mcg Tablet 1 Tab PO DAILY Atorvastatin Calcium 20 Mg Tablet 20 Mg PO HS Amitriptyline Hcl 10 Mg Tablet 1-2 Tab PO QHS Alendronate Sodium 70 Mg Tablet 1 Tab PO WEEKLY Requip (Ropinirole Hcl) 1 Mg Tablet 3 Tab PO QHS Proair Hfa Inhaler (Albuterol Sulfate) 8.5 Gm Hfa.aer.ad 1 Puff INH PRN Q6HRS PRN Potassium Citrate 10 Meq Tablet.er 20 Meq PO DAILY Protonix (Pantoprazole Sodium) 40 Mg Tablet. 1 Tab PO DAILY Lidocaine 1 Each Adh..patch 1 Each TP Levothyroxine Sodium 50 Mcg Tablet 1 Tab PO DAILY Allergies Allergies: Coded Allergies: ibuprofen (Verified Allergy, Severe, Swelling, 08/09/18) naproxen (Verified Allergy, Severe, Shortness of Air, 10/25/18) tolerates asa piperacillin (Verified Allergy, Severe, Swelling, 08/09/18) tazobactam (Verified Allergy, Severe, Swelling, 08/09/18) ROS Review of System No chest pain, denies recent travels The rest of ROS 14 point negative the rest per hPI Physical Exam General: mild distress HEENT: Atraumatic, PERRLA, EOMI Lungs: Normal air movement, Other (wheezy on bilateral and anterior auscultation) Heart: S1S2, no thrills, no rubs, no gallops, no murmurs, other (sinus tachycardia) Breasts: Normal, Rt breast nml w/o mass, Lt breast nml w/o mass, Nipples normal Abdomen: Normal bowel sounds, Soft, No tenderness, No hepatosplenomegaly, No masses Rectal Exam: not examined PELVIC: Nml ext genitalia Extremities: No clubbing, No cyanosis, No edema, Normal pulses, No tenderness/ swelling Skin: No rashes, No breakdown, No significant lesion Neuro: Normal gait, Normal speech, Strength at 5/5 X4 ext, Normal tone, Sensation intact, Cranial nerves 3-12 NL, Reflexes 2+ Psych/Mental Status: Mental status NL Vitals Vitals Vital Signs Date Time Temp Pulse Resp B/P (MAP) Pulse Ox O2 Delivery O2 Flow Rate FiO2 10/25/18 17:30 102 24 103/51 (68) 95 Nasal Cannula 2.0 10/25/18 15:43 99.8 99.8 Labs Labs Laboratory Tests Test 10/25/18 15:52 10/25/18 15:53 Influenza Type A Antigen Negative (NEGATIVE) Influenza Type B Antigen Negative (NEGATIVE) White Blood Count 3.2 x10^3/uL (4.0-11.0) Red Blood Count 3.61 x10^6/uL (3.50-5.40) Hemoglobin 11.5 g/dL (12.0-15.5) Hematocrit 34.2 % (36.0-47.0) Mean Corpuscular Volume 95 fL (79-100) Mean Corpuscular Hemoglobin 32 pg (25-35) Mean Corpuscular Hemoglobin Concent 34 g/dL (31-37) Red Cell Distribution Width 13.6 % (11.5-14.5) Platelet Count 201 x10^3/uL (140-400) Neutrophils (%) (Auto) 80 % (31-73) Lymphocytes (%) (Auto) 9 % (24-48) Monocytes (%) (Auto) 10 % (0-9) Eosinophils (%) (Auto) 0 % (0-3) Basophils (%) (Auto) 0 % (0-3) Neutrophils # (Auto) 2.6 x10^3uL (1.8-7.7) Lymphocytes # (Auto) 0.3 x10^3/uL (1.0-4.8) Monocytes # (Auto) 0.3 x10^3/uL (0.0-1.1) Eosinophils # (Auto) 0.0 x10^3/uL (0.0-0.7) Basophils # (Auto) 0.0 x10^3/uL (0.0-0.2) Segmented Neutrophils % 65 % (35-66) Band Neutrophils % 15 % (0-9) Lymphocytes % 9 % (24-48) Atypical Lymphocytes % (Manual) 1 % (0-0) Monocytes % 9 % (0-10) Eosinophils % 1 % (0-5) Platelet Estimate Adequate (ADEQUATE) Sodium Level 138 mmol/L (136-145) Potassium Level 3.7 mmol/L (3.5-5.1) Chloride Level 100 mmol/L (98-107) Carbon Dioxide Level 32 mmol/L (21-32) Anion Gap 6 (6-14) Blood Urea Nitrogen 16 mg/dL (7-20) Creatinine 1.4 mg/dL (0.6-1.0) Estimated GFR (Cockcroft-Gault) 37.9 BUN/Creatinine Ratio 11 (6-20) Glucose Level 96 mg/dL (70-99) Lactic Acid Level 1.3 mmol/L (0.4-2.0) Calcium Level 8.8 mg/dL (8.5-10.1) Magnesium Level 1.6 mg/dL (1.8-2.4) Total Bilirubin 0.2 mg/dL (0.2-1.0) Aspartate Amino Transf (AST/SGOT) 42 U/L (15-37) Alanine Aminotransferase (ALT/SGPT) 22 U/L (14-59) Alkaline Phosphatase 75 U/L (46-116) Troponin I Quantitative < 0.017 ng/mL (0.000-0.055) QK-Zek-P-Type Natriuretic Peptide 1103 pg/mL (0-124) Total Protein 8.2 g/dL (6.4-8.2) Albumin 2.8 g/dL (3.4-5.0) Albumin/Globulin Ratio 0.5 (1.0-1.7) Laboratory Tests Test 10/25/18 15:52 10/25/18 15:53 Influenza Type A Antigen Negative (NEGATIVE) Influenza Type B Antigen Negative (NEGATIVE) White Blood Count 3.2 x10^3/uL (4.0-11.0) Red Blood Count 3.61 x10^6/uL (3.50-5.40) Hemoglobin 11.5 g/dL (12.0-15.5) Hematocrit 34.2 % (36.0-47.0) Mean Corpuscular Volume 95 fL (79-100) Mean Corpuscular Hemoglobin 32 pg (25-35) Mean Corpuscular Hemoglobin Concent 34 g/dL (31-37) Red Cell Distribution Width 13.6 % (11.5-14.5) Platelet Count 201 x10^3/uL (140-400) Neutrophils (%) (Auto) 80 % (31-73) Lymphocytes (%) (Auto) 9 % (24-48) Monocytes (%) (Auto) 10 % (0-9) Eosinophils (%) (Auto) 0 % (0-3) Basophils (%) (Auto) 0 % (0-3) Neutrophils # (Auto) 2.6 x10^3uL (1.8-7.7) Lymphocytes # (Auto) 0.3 x10^3/uL (1.0-4.8) Monocytes # (Auto) 0.3 x10^3/uL (0.0-1.1) Eosinophils # (Auto) 0.0 x10^3/uL (0.0-0.7) Basophils # (Auto) 0.0 x10^3/uL (0.0-0.2) Segmented Neutrophils % 65 % (35-66) Band Neutrophils % 15 % (0-9) Lymphocytes % 9 % (24-48) Atypical Lymphocytes % (Manual) 1 % (0-0) Monocytes % 9 % (0-10) Eosinophils % 1 % (0-5) Platelet Estimate Adequate (ADEQUATE) Sodium Level 138 mmol/L (136-145) Potassium Level 3.7 mmol/L (3.5-5.1) Chloride Level 100 mmol/L (98-107) Carbon Dioxide Level 32 mmol/L (21-32) Anion Gap 6 (6-14) Blood Urea Nitrogen 16 mg/dL (7-20) Creatinine 1.4 mg/dL (0.6-1.0) Estimated GFR (Cockcroft-Gault) 37.9 BUN/Creatinine Ratio 11 (6-20) Glucose Level 96 mg/dL (70-99) Lactic Acid Level 1.3 mmol/L (0.4-2.0) Calcium Level 8.8 mg/dL (8.5-10.1) Magnesium Level 1.6 mg/dL (1.8-2.4) Total Bilirubin 0.2 mg/dL (0.2-1.0) Aspartate Amino Transf (AST/SGOT) 42 U/L (15-37) Alanine Aminotransferase (ALT/SGPT) 22 U/L (14-59) Alkaline Phosphatase 75 U/L (46-116) Troponin I Quantitative < 0.017 ng/mL (0.000-0.055) IV-Exs-B-Type Natriuretic Peptide 1103 pg/mL (0-124) Total Protein 8.2 g/dL (6.4-8.2) Albumin 2.8 g/dL (3.4-5.0) Albumin/Globulin Ratio 0.5 (1.0-1.7) VTE Prophylaxis Ordered VTE Prophylaxis Devices: Yes VTE Pharmacological Prophylaxi: Yes Assessment/Plan Assessment/Plan Severe acute exacerbation of COPD in a smoker SIRS/sepsis on admission with no organ dysfunction AK I in the background of diuretic use- HTN-chronic stable Hypothyroidism on replacement Dyslipidemia on statin Depression NOS PLAN: Admit 2 midnights Consult pulmonary I did start high-dose steroids , nebs, cough med etc. - I did start empiric abx given fever/sepsis at ER Follow blood culture Home meds I have reconciled Avoid nephrotoxins - creatinine 1.4 monitor this Usually she gets IgG treatment care of pulmonology Dw her plan, agrees Seen MARIBELL Dozier MD Oct 25, 2018 20:02
--- NOTE | 2018-10-25 20:19 | NUR ---
The patient, JAYCOB CRAWFORD, 63 y/o, F admitted by MARIBELL BARKER MD, was given written information regarding hospital policies, unit procedures and contact persons. Valuables were checked and left with patient. Patient is resting in bed with upper rails up and call light within reach.
[2018-10-25] MEDS: GABAPENTIN 100 MG CAPSULE. PO SCH (21:10)
[2018-10-25] MEDS: BENZONATATE 100 MG CAPSULE. PO SCH (21:11)
[2018-10-25] MEDS: CHOLECALCIFEROL (VITAMIN D3) 1,000 UNIT TABLET PO SCH (21:11)
[2018-10-25] MEDS: rOPINIRole 1 MG TABLET. PO SCH (21:11)
[2018-10-25] MEDS: FERROUS SULFATE 325 MG TABLET. PO SCH (21:11)
[2018-10-25] MEDS: ASPIRIN ENTERIC COATED 81 MG TABLET.DR. PO SCH (21:14)
[2018-10-25] MEDS: AMITRIPTYLINE HCL 10 MG TABLET. PO SCH (21:14)
[2018-10-25] MEDS: HYDROcodone/APAP 5/325MG 1 TAB TABLET PO SCH (21:14)
[2018-10-25] MEDS: methylPREDNISolone SOD SUCC PF 40 MG/ML VIAL. IV SCH (21:16)
[2018-10-25] MEDS: ATORVASTATIN CALCIUM 20 MG TABLET PO SCH (21:18)
[2018-10-25] MEDS: PANTOPRAZOLE 40 MG TABLET.DR. PO SCH (21:18)
[2018-10-25 22:57] VITALS: BP 93/39
[2018-10-25 23:43] VITALS: BP 109/58
[2018-10-26 03:00] VITALS: BP 105/53
[2018-10-26] MEDS: methylPREDNISolone SOD SUCC PF 40 MG/ML VIAL. IV SCH ×3 (05:55→20:50)
[2018-10-26] MEDS: LEVOTHYROXINE 50 MCG TABLET PO SCH (06:00)
[2018-10-26 07:00] VITALS: BP 95/42
[2018-10-26 07:30] LABS: BASO % 0 % (0-3); EOS % 0 % (0-3); HEMATOCRIT 33.5 % (36.0-47.0); HEMOGLOBIN 11.2 g/dL (12.0-15.5); LYMPH # 0.2 x10^3/uL (1.0-4.8); LYMPH % 12 % (24-48); MEAN CORPUSCULAR HEMOGLOBIN 31 pg (25-35); MEAN CORPUSCULAR HGB CONC 33 g/dL (31-37); MEAN CORPUSCULAR VOLUME 94 fL (79-100); MONO # 0.1 x10^3/uL (0.0-1.1); MONO % 3 % (0-9); NEUT # 1.5 x10^3uL (1.8-7.7); NEUT % 84 % (31-73); PLATELET COUNT 183 x10^3/uL (140-400); RED BLOOD COUNT 3.56 x10^6/uL (3.50-5.40); RED CELL DISTRIBUTION WIDTH 13.9 % (11.5-14.5)
[2018-10-26 07:32] LABS: WHITE BLOOD COUNT 1.8 x10^3/uL (4.0-11.0)
[2018-10-26 07:43] LABS: CALCIUM 8.7 mg/dL (8.5-10.1); CREATININE 1.1 mg/dL (0.6-1.0); POTASSIUM 4.3 mmol/L (3.5-5.1)
[2018-10-26] MEDS: IPRATRPIUM/ALBUTEROL 0.5/2.5MG 3 ML NEBU. NEB SCH ×4 (07:49→19:37)
[2018-10-26] MEDS ORDERED: levOFLOXacin PER PHARMACY. MC PRN (08:15)
--- NOTE | 2018-10-26 08:42 | PDOC ---
PROGRESS NOTES Chief Complaint Chief Complaint Severe acute exacerbation of COPD in a smoker sepsis on admission with no organ dysfunction known Immune deficiency, NOS, got IgG infusion at home 10/25, per [facility] vasomotor nephropathy, in the background of diuretic use- HTN-chronic stable Hypothyroidism on replacement Dyslipidemia on statin Depression NOS History of Present Illness History of Present Illness Consult pulmonary, Heme, acq. immune def. I did start high-dose steroids , nebs, cough med etc. - I did start empiric abx given fever/sepsis at ER Avoid nephrotoxins - creatinine improved this AM to 1.1 Usually she gets IgG treatment care of pulmonology Vitals Vitals Vital Signs Date Time Temp Pulse Resp B/P (MAP) Pulse Ox O2 Delivery O2 Flow Rate FiO2 10/26/18 07:49 96 Nasal Cannula 2.0 10/26/18 07:00 98.4 75 22 95/42 (59) 98.4 Physical Exam General: Alert, Oriented X3, Cooperative, mild distress, Other (marked resp distress. ) Lungs: Wheezing Abdomen: Normal bowel sounds, Soft, No tenderness, No hepatosplenomegaly, No masses Extremities: No clubbing, No cyanosis, No edema, Normal pulses, No tenderness/ swelling Skin: No rashes, No breakdown, No significant lesion Labs LABS Laboratory Tests Test 10/25/18 15:52 10/25/18 15:53 10/26/18 06:35 Influenza Type A Antigen Negative (NEGATIVE) Influenza Type B Antigen Negative (NEGATIVE) White Blood Count 3.2 x10^3/uL (4.0-11.0) 1.8 x10^3/uL (4.0-11.0) Red Blood Count 3.61 x10^6/uL (3.50-5.40) 3.56 x10^6/uL (3.50-5.40) Hemoglobin 11.5 g/dL (12.0-15.5) 11.2 g/dL (12.0-15.5) Hematocrit 34.2 % (36.0-47.0) 33.5 % (36.0-47.0) Mean Corpuscular Volume 95 fL (79-100) 94 fL (79-100) Mean Corpuscular Hemoglobin 32 pg (25-35) 31 pg (25-35) Mean Corpuscular Hemoglobin Concent 34 g/dL (31-37) 33 g/dL (31-37) Red Cell Distribution Width 13.6 % (11.5-14.5) 13.9 % (11.5-14.5) Platelet Count 201 x10^3/uL (140-400) 183 x10^3/uL (140-400) Neutrophils (%) (Auto) 80 % (31-73) 84 % (31-73) Lymphocytes (%) (Auto) 9 % (24-48) 12 % (24-48) Monocytes (%) (Auto) 10 % (0-9) 3 % (0-9) Eosinophils (%) (Auto) 0 % (0-3) 0 % (0-3) Basophils (%) (Auto) 0 % (0-3) 0 % (0-3) Neutrophils # (Auto) 2.6 x10^3uL (1.8-7.7) 1.5 x10^3uL (1.8-7.7) Lymphocytes # (Auto) 0.3 x10^3/uL (1.0-4.8) 0.2 x10^3/uL (1.0-4.8) Monocytes # (Auto) 0.3 x10^3/uL (0.0-1.1) 0.1 x10^3/uL (0.0-1.1) Eosinophils # (Auto) 0.0 x10^3/uL (0.0-0.7) 0.0 x10^3/uL (0.0-0.7) Basophils # (Auto) 0.0 x10^3/uL (0.0-0.2) 0.0 x10^3/uL (0.0-0.2) Segmented Neutrophils % 65 % (35-66) Band Neutrophils % 15 % (0-9) Lymphocytes % 9 % (24-48) Atypical Lymphocytes % (Manual) 1 % (0-0) Monocytes % 9 % (0-10) Eosinophils % 1 % (0-5) Platelet Estimate Adequate (ADEQUATE) Sodium Level 138 mmol/L (136-145) 138 mmol/L (136-145) Potassium Level 3.7 mmol/L (3.5-5.1) 4.3 mmol/L (3.5-5.1) Chloride Level 100 mmol/L (98-107) 102 mmol/L (98-107) Carbon Dioxide Level 32 mmol/L (21-32) 31 mmol/L (21-32) Anion Gap 6 (6-14) 5 (6-14) Blood Urea Nitrogen 16 mg/dL (7-20) 20 mg/dL (7-20) Creatinine 1.4 mg/dL (0.6-1.0) 1.1 mg/dL (0.6-1.0) Estimated GFR (Cockcroft-Gault) 37.9 50.0 BUN/Creatinine Ratio 11 (6-20) Glucose Level 96 mg/dL (70-99) 138 mg/dL (70-99) Lactic Acid Level 1.3 mmol/L (0.4-2.0) Calcium Level 8.8 mg/dL (8.5-10.1) 8.7 mg/dL (8.5-10.1) Magnesium Level 1.6 mg/dL (1.8-2.4) Total Bilirubin 0.2 mg/dL (0.2-1.0) Aspartate Amino Transf (AST/SGOT) 42 U/L (15-37) Alanine Aminotransferase (ALT/SGPT) 22 U/L (14-59) Alkaline Phosphatase 75 U/L (46-116) Troponin I Quantitative < 0.017 ng/mL (0.000-0.055) JA-[id number]-[id number]-Type Natriuretic Peptide 1103 pg/mL (0-124) Total Protein 8.2 g/dL (6.4-8.2) Albumin 2.8 g/dL (3.4-5.0) Albumin/Globulin Ratio 0.5 (1.0-1.7) Assessment and Plan Assessmemt and Plan Problems Medical Problems: (1) Bandemia Status: Acute (2) COPD exacerbation Status: Acute Comment Review of Relevant I have reviewed the following items jon (where applicable) has been applied. Labs Laboratory Tests Test 10/25/18 15:52 10/25/18 15:53 10/26/18 06:35 Influenza Type A Antigen Negative (NEGATIVE) Influenza Type B Antigen Negative (NEGATIVE) White Blood Count 3.2 x10^3/uL (4.0-11.0) 1.8 x10^3/uL (4.0-11.0) Red Blood Count 3.61 x10^6/uL (3.50-5.40) 3.56 x10^6/uL (3.50-5.40) Hemoglobin 11.5 g/dL (12.0-15.5) 11.2 g/dL (12.0-15.5) Hematocrit 34.2 % (36.0-47.0) 33.5 % (36.0-47.0) Mean Corpuscular Volume 95 fL (79-100) 94 fL (79-100) Mean Corpuscular Hemoglobin 32 pg (25-35) 31 pg (25-35) Mean Corpuscular Hemoglobin Concent 34 g/dL (31-37) 33 g/dL (31-37) Red Cell Distribution Width 13.6 % (11.5-14.5) 13.9 % (11.5-14.5) Platelet Count 201 x10^3/uL (140-400) 183 x10^3/uL (140-400) Neutrophils (%) (Auto) 80 % (31-73) 84 % (31-73) Lymphocytes (%) (Auto) 9 % (24-48) 12 % (24-48) Monocytes (%) (Auto) 10 % (0-9) 3 % (0-9) Eosinophils (%) (Auto) 0 % (0-3) 0 % (0-3) Basophils (%) (Auto) 0 % (0-3) 0 % (0-3) Neutrophils # (Auto) 2.6 x10^3uL (1.8-7.7) 1.5 x10^3uL (1.8-7.7) Lymphocytes # (Auto) 0.3 x10^3/uL (1.0-4.8) 0.2 x10^3/uL (1.0-4.8) Monocytes # (Auto) 0.3 x10^3/uL (0.0-1.1) 0.1 x10^3/uL (0.0-1.1) Eosinophils # (Auto) 0.0 x10^3/uL (0.0-0.7) 0.0 x10^3/uL (0.0-0.7) Basophils # (Auto) 0.0 x10^3/uL (0.0-0.2) 0.0 x10^3/uL (0.0-0.2) Segmented Neutrophils % 65 % (35-66) Band Neutrophils % 15 % (0-9) Lymphocytes % 9 % (24-48) Atypical Lymphocytes % (Manual) 1 % (0-0) Monocytes % 9 % (0-10) Eosinophils % 1 % (0-5) Platelet Estimate Adequate (ADEQUATE) Sodium Level 138 mmol/L (136-145) 138 mmol/L (136-145) Potassium Level 3.7 mmol/L (3.5-5.1) 4.3 mmol/L (3.5-5.1) Chloride Level 100 mmol/L (98-107) 102 mmol/L (98-107) Carbon Dioxide Level 32 mmol/L (21-32) 31 mmol/L (21-32) Anion Gap 6 (6-14) 5 (6-14) Blood Urea Nitrogen 16 mg/dL (7-20) 20 mg/dL (7-20) Creatinine 1.4 mg/dL (0.6-1.0) 1.1 mg/dL (0.6-1.0) Estimated GFR (Cockcroft-Gault) 37.9 50.0 BUN/Creatinine Ratio 11 (6-20) Glucose Level 96 mg/dL (70-99) 138 mg/dL (70-99) Lactic Acid Level 1.3 mmol/L (0.4-2.0) Calcium Level 8.8 mg/dL (8.5-10.1) 8.7 mg/dL (8.5-10.1) Magnesium Level 1.6 mg/dL (1.8-2.4) Total Bilirubin 0.2 mg/dL (0.2-1.0) Aspartate Amino Transf (AST/SGOT) 42 U/L (15-37) Alanine Aminotransferase (ALT/SGPT) 22 U/L (14-59) Alkaline Phosphatase 75 U/L (46-116) Troponin I Quantitative < 0.017 ng/mL (0.000-0.055) [id number]-Mfd-[id number]-Type Natriuretic Peptide 1103 pg/mL (0-124) Total Protein 8.2 g/dL (6.4-8.2) Albumin 2.8 g/dL (3.4-5.0) Albumin/Globulin Ratio 0.5 (1.0-1.7) Laboratory Tests Test 10/25/18 15:52 10/25/18 15:53 10/26/18 06:35 Influenza Type A Antigen Negative (NEGATIVE) Influenza Type B Antigen Negative (NEGATIVE) White Blood Count 3.2 x10^3/uL (4.0-11.0) 1.8 x10^3/uL (4.0-11.0) Red Blood Count 3.61 x10^6/uL (3.50-5.40) 3.56 x10^6/uL (3.50-5.40) Hemoglobin 11.5 g/dL (12.0-15.5) 11.2 g/dL (12.0-15.5) Hematocrit 34.2 % (36.0-47.0) 33.5 % (36.0-47.0) Mean Corpuscular Volume 95 fL (79-100) 94 fL (79-100) Mean Corpuscular Hemoglobin 32 pg (25-35) 31 pg (25-35) Mean Corpuscular Hemoglobin Concent 34 g/dL (31-37) 33 g/dL (31-37) Red Cell Distribution Width 13.6 % (11.5-14.5) 13.9 % (11.5-14.5) Platelet Count 201 x10^3/uL (140-400) 183 x10^3/uL (140-400) Neutrophils (%) (Auto) 80 % (31-73) 84 % (31-73) Lymphocytes (%) (Auto) 9 % (24-48) 12 % (24-48) Monocytes (%) (Auto) 10 % (0-9) 3 % (0-9) Eosinophils (%) (Auto) 0 % (0-3) 0 % (0-3) Basophils (%) (Auto) 0 % (0-3) 0 % (0-3) Neutrophils # (Auto) 2.6 x10^3uL (1.8-7.7) 1.5 x10^3uL (1.8-7.7) Lymphocytes # (Auto) 0.3 x10^3/uL (1.0-4.8) 0.2 x10^3/uL (1.0-4.8) Monocytes # (Auto) 0.3 x10^3/uL (0.0-1.1) 0.1 x10^3/uL (0.0-1.1) Eosinophils # (Auto) 0.0 x10^3/uL (0.0-0.7) 0.0 x10^3/uL (0.0-0.7) Basophils # (Auto) 0.0 x10^3/uL (0.0-0.2) 0.0 x10^3/uL (0.0-0.2) Segmented Neutrophils % 65 % (35-66) Band Neutrophils % 15 % (0-9) Lymphocytes % 9 % (24-48) Atypical Lymphocytes % (Manual) 1 % (0-0) Monocytes % 9 % (0-10) Eosinophils % 1 % (0-5) Platelet Estimate Adequate (ADEQUATE) Sodium Level 138 mmol/L (136-145) 138 mmol/L (136-145) Potassium Level 3.7 mmol/L (3.5-5.1) 4.3 mmol/L (3.5-5.1) Chloride Level 100 mmol/L (98-107) 102 mmol/L (98-107) Carbon Dioxide Level 32 mmol/L (21-32) 31 mmol/L (21-32) Anion Gap 6 (6-14) 5 (6-14) Blood Urea Nitrogen 16 mg/dL (7-20) 20 mg/dL (7-20) Creatinine 1.4 mg/dL (0.6-1.0) 1.1 mg/dL (0.6-1.0) Estimated GFR (Cockcroft-Gault) 37.9 50.0 BUN/Creatinine Ratio 11 (6-20) Glucose Level 96 mg/dL (70-99) 138 mg/dL (70-99) Lactic Acid Level 1.3 mmol/L (0.4-2.0) Calcium Level 8.8 mg/dL (8.5-10.1) 8.7 mg/dL (8.5-10.1) Magnesium Level 1.6 mg/dL (1.8-2.4) Total Bilirubin 0.2 mg/dL (0.2-1.0) Aspartate Amino Transf (AST/SGOT) 42 U/L (15-37) Alanine Aminotransferase (ALT/SGPT) 22 U/L (14-59) Alkaline Phosphatase 75 U/L (46-116) Troponin I Quantitative < 0.017 ng/mL (0.000-0.055) AX-[id number]-[id number]-Type Natriuretic Peptide 1103 pg/mL (0-124) Total Protein 8.2 g/dL (6.4-8.2) Albumin 2.8 g/dL (3.4-5.0) Albumin/Globulin Ratio 0.5 (1.0-1.7) Medications Current Medications Albuterol/ Ipratropium (Duoneb) 3 ml 1X ONCE NEB Last administered on at 16:13; Start 10/25/18 at 16:00; Stop 10/25/18 at 16:01; Status DC Methylprednisolone Sodium Succinate (SOLU-Medrol 125MG VIAL) 125 mg 1X ONCE IV Last administered on 10/25/18at 16:16; Start 10/25/18 at 16:00; Stop 10/25/18 at 16:01; Status DC Acetaminophen (Tylenol) 650 mg 1X ONCE PO Last administered on 10/25/18at 16:14 ; Start 10/25/18 at 16:00; Stop 10/25/18 at 16:01; Status DC Sodium Chloride 1,000 ml @ 1,000 mls/hr 1X ONCE IV Last administered on at 16:36; Start 10/25/18 at 16:45; Stop 10/25/18 at 17:50; Status DC Ceftriaxone Sodium (Rocephin) 1 gm 1X ONCE IVP ; Start 10/25/18 at 17:00; Stop 10/25/18 at 17:01; Status UNV Azithromycin 250 ml @ 250 mls/hr 1X ONCE IV ; Start 10/25/18 at 17:00; Stop at 17:59; Status Cancel Albuterol/ Ipratropium (Duoneb) 3 ml 1X ONCE NEB Last administered on at 18:00; Start 10/25/18 at 17:00; Stop 10/25/18 at 17:06; Status DC Levofloxacin/ Dextrose 150 ml @ 100 mls/hr 1X ONCE IV Last administered on at 17:58; Start 10/25/18 at 17:15; Stop 10/25/18 at 18:44; Status DC Acetaminophen (Tylenol) 650 mg PRN Q4HRS PRN PO FEVER; Start 10/25/18 at 17:15 ; Stop 10/26/18 at 17:14 Albuterol/ Ipratropium (Duoneb) 3 ml RTQID NEB Last administered on 10/26/18at 07:49; Start 10/25/18 at 20:00; Stop 10/26/18 at 19:59 Benzonatate (Tessalon Perle) 100 mg [id number] PO Last administered on 10/25/18at 21 :11; Start 10/25/18 at 21:00 Guaifenesin (Robitussin Dm) 10 ml PRN Q6HRS PRN PO COUGH 1ST CHOICE; Start at 17:30 Diphenhydramine HCl (Benadryl) 25 mg PRN QHS PRN PO INSOMNIA; Start 10/25/18 at 17:30 Ondansetron HCl (Zofran) 4 mg PRN Q6HRS PRN IV NAUSEA/VOMITING; Start 10/25/18 at 17:30 Ondansetron HCl (Zofran Odt) 4 mg PRN Q6HRS PRN PO NAUSEA/VOMITING; Start 10/25 at 17:30 Amitriptyline HCl (Elavil) 20 mg QHS PO Last administered on 10/25/18at 21:14; Start 10/25/18 at 21:00 Aspirin (Ecotrin) 81 mg DAILY07 PO Last administered on 10/25/18at 21:14; Start 10/25/18 at 18:00 Atorvastatin Calcium (Lipitor) 20 mg HS PO Last administered on 10/25/18at 21:18 ; Start 10/25/18 at 21:00 Vitamin D (Vitamin D3) 1,000 unit DAILY PO Last administered on 10/25/18 21:11 ; Start 10/25/18 at 18:00 Ferrous Sulfate (Feosol) 325 mg DAILY08 PO Last administered on 10/25/18at 21:11 ; Start 10/25/18 at 18:00 Gabapentin (Neurontin) 100 mg TID PO Last administered on 10/25/18at 21:10; Start 10/25/18 at 21:00 Acetaminophen/ Hydrocodone Bitart (Lortab 10/325) 1 tab PRN Q6HRS PRN PO MODERATE-SEVERE PAIN; Start 10/25/18 at 17:30 Acetaminophen/ Hydrocodone Bitart (Lortab 5/325) 1 tab QID PO Last administered on 10/25/18at 21:14; Start 10/25/18 at 21:00 Metoprolol Succinate (Toprol Xl) 12.5 mg DAILY PO ; Start 10/25/18 at 18:00 Oxycodone/ Acetaminophen (Percocet 5/325) 1 tab PRN Q6HRS PRN PO PAIN severe 2nd choice; Start 10/25/18 at 17:30 Pantoprazole Sodium (Protonix) 40 mg DAILY07 PO Last administered on 10/25/18at 21:18; Start 10/25/18 at 18:00 Potassium Citrate (Urocit-K) 20 meq DAILY08 PO ; Start 10/25/18 at 18:00 Non-Formulary Medication (Alendronate Sodium ) 1 tab WEEKLY PO ; Start 11/01/18 at 09:00; Status UNV Levothyroxine Sodium (Synthroid) 50 mcg DAILY06 PO Last administered on at 06:00; Start 10/25/18 at 18:00 Non-Formulary Medication (Ondansetron (Zofran Odt)) 8 mg BID PRN PO NAUSEA/ VOMITING; Start 10/25/18 at 17:30; Status UNV Roflumilast (Daliresp) 500 mcg DAILY PO ; Start 10/25/18 at 18:00 Ropinirole HCl (Requip) 3 mg QHS PO Last administered on 10/25/18at 21:11; Start 10/25/18 at 21:00 Torsemide (Demadex) 20 mg DAILY PO ; Start 10/25/18 at 18:00 Albuterol Sulfate (Ventolin Neb Soln) 2.5 mg PRN Q4HRS PRN NEB SHORTNESS OF BREATH; Start 10/25/18 at 18:15 Methylprednisolone Sodium Succinate (SOLU-Medrol 40MG VIAL) 60 mg Q8HRS IV Last administered on 10/26/18at 05:55; Start 10/25/18 at 22:00 Temazepam (Restoril) 7.5 mg PRN QHS PRN PO INSOMNIA; Start 10/25/18 at 20:00 Levofloxacin/ Dextrose (Levaquin Per Pharmacy) 1 each PRN DAILY PRN [facility] SEE COMMENTS; Start 10/25/18 at 20:00 Levofloxacin/ Dextrose 50 ml @ 50 mls/hr Q24H IV ; Start 10/26/18 at 17:00; Stop 10/26/18 at 17:00; Status DC Levofloxacin (Levaquin) 500 mg DAILY16 PO ; Start 10/26/18 at 16:00 Levofloxacin/ Dextrose (Levaquin Per Pharmacy) 1 each PRN DAILY PRN [facility] SEE COMMENTS; Start 10/26/18 at 08:15 Active Scripts Active Prednisone (Prednisone) 10 Mg Tablet 30 Mg PO DAILY Mucinex (Guaifenesin) 600 Mg Tablet.er 600 Mg PO BID Hydrocodone-Apap 10-325 (Hydrocodone Bit/Acetaminophen) 1 Each Tablet 1 Tab PO PRN Q6HRS PRN Doxycycline Hyclate 100 Mg Tablet 100 Mg PO BID 5 Days Ozan 5-325 Tablet (Acetaminophen/Hydrocodone Bitart) 1 Each Tablet 1-2 Tab PO Q4-6HRS Reported Percocet 5-325 Mg Tablet (Oxycodone/Acetaminophen) 1 Each Tablet 1 Tab PO PRN Q6HRS PRN Zofran Odt (Ondansetron) 8 Mg Tab.rapdis 8 Mg PO BID PRN Aspir 81 (Aspirin) 81 Mg Tablet.dr 1 Tab PO DAILY Metoprolol Succinate ( Xl ) (Metoprolol Succinate) 25 Mg Tab.er.24h 12.5 Mg PO DAILY Vitamin D3 (Cholecalciferol (Vitamin D3)) 1,000 Unit Tablet 1 Tab PO DAILY Torsemide 20 Mg Tablet 1 Tab PO DAILY Gabapentin (Gabapentin) 100 Mg Capsule 100 Mg PO TID Ferrous Sulfate 325 Mg Tablet 1 Tab PO DAILY Daliresp (Roflumilast) 500 Mcg Tablet 1 Tab PO DAILY Atorvastatin Calcium 20 Mg Tablet 20 Mg PO HS Amitriptyline Hcl 10 Mg Tablet 1-2 Tab PO QHS Alendronate Sodium 70 Mg Tablet 1 Tab PO WEEKLY Requip (Ropinirole Hcl) 1 Mg Tablet 3 Tab PO QHS Proair Hfa Inhaler (Albuterol Sulfate) 8.5 Gm Hfa.aer.ad 1 Puff INH PRN Q6HRS PRN Potassium Citrate 10 Meq Tablet.er 20 Meq PO DAILY Protonix (Pantoprazole Sodium) 40 Mg Tablet.dr 1 Tab PO DAILY Lidocaine 1 Each Adh..patch 1 Each TP Levothyroxine Sodium 50 Mcg Tablet 1 Tab PO DAILY Vitals/I & O Vital Sign - Last 24 Hours 10/25/18 10/25/18 10/25/18 10/25/18 15:43 16:00 16:13 16:30 Temp 99.8 99.8 Pulse 103 98 66 Resp 30 B/P (MAP) 101/53 (69) 101/53 (69) 104/51 (68) Pulse Ox 86 99 96 95 O2 Delivery Room Air Nasal Cannula Nasal Cannula Nasal Cannula O2 Flow Rate 2.0 2.0 2.0 10/25/18 10/25/18 10/25/18 10/25/18 17:00 17:30 18:00 19:00 Temp 98.8 98.8 Pulse 105 102 92 92 Resp 33 24 24 B/P (MAP) 108/55 (72) 103/51 (68) 119/62 119/62 (81) Pulse Ox 94 95 95 O2 Delivery Nasal Cannula Nasal Cannula Nasal Cannula O2 Flow Rate 2.0 2.0 10/25/18 10/25/18 10/25/18 10/25/18 20:00 21:14 22:30 22:57 Temp 98.5 98.5 Pulse 83 Resp 23 B/P (MAP) 93/39 (57) Pulse Ox 98 98 O2 Delivery Nasal Cannula Nasal Cannula Nasal Cannula Nasal Cannula O2 Flow Rate 3.0 3.0 3.0 3.0 10/25/18 10/26/18 10/26/18 10/26/18 23:43 03:00 07:00 07:49 Temp 97.9 98.4 97.9 98.4 Pulse 74 75 Resp 22 B/P (MAP) 109/58 (75) 105/53 (70) 95/42 (59) Pulse Ox 97 98 96 O2 Delivery Nasal Cannula Nasal Cannula Nasal Cannula O2 Flow Rate 3.0 3.0 2.0 Intake and Output 10/25/18 10/25/18 10/26/18 15:01 23:01 07:01 Intake Total 0 ml Output Total 0 ml Balance 0 ml DEMETRA BABIN MD Oct 26, 2018 08:42
[2018-10-26] MEDS: ROFLUMILAST 500 MCG TABLET. PO SCH (09:44)
[2018-10-26] MEDS: FERROUS SULFATE 325 MG TABLET. PO SCH (09:44)
[2018-10-26] MEDS: GABAPENTIN 100 MG CAPSULE. PO SCH ×3 (09:44→20:51)
[2018-10-26] MEDS: TORSEMIDE 20 MG TABLET. PO SCH (09:44)
[2018-10-26] MEDS: HYDROcodone/APAP 10/325 1 TAB TABLET PO PRN ×2 (09:44→09:48)
[2018-10-26] MEDS: ASPIRIN ENTERIC COATED 81 MG TABLET.DR. PO SCH (09:45)
[2018-10-26] MEDS: POTASSIUM CITRATE 10 MEQ TABLET.ER PO SCH (09:45)
[2018-10-26] MEDS: PANTOPRAZOLE 40 MG TABLET.DR. PO SCH (09:45)
[2018-10-26] MEDS: BENZONATATE 100 MG CAPSULE. PO SCH ×3 (09:45→20:51)
[2018-10-26] MEDS: CHOLECALCIFEROL (VITAMIN D3) 1,000 UNIT TABLET PO SCH (09:45)
[2018-10-26] MEDS: METOPROLOL SUCC 24HR ER 25 MG TAB.ER.24H. PO SCH (09:46)
[2018-10-26] MEDS: HYDROcodone/APAP 5/325MG 1 TAB TABLET PO SCH ×4 (09:51→20:51)
[2018-10-26 11:00] VITALS: BP 92/48
--- NOTE | 2018-10-26 11:56 | CONS ---
DATE OF CONSULTATION: ATTENDING PHYSICIAN: Dr. Rashid. REASON FOR CONSULTATION: COPD exacerbation. HISTORY OF PRESENT ILLNESS: The patient is a 63-year-old who has a long history of tobacco use for at least 30 years. Unknown COPD. She has been followed for immunoglobulin deficiency per history and physical from Dr. Rashid at Pulmonology. The patient was brought into the hospital with increasing shortness of breath. She has been wheezing as well. She has a cough, which has been nonproductive. Chest x-ray was reviewed, and it shows slightly prominent interstitial markings, which was seen previously in 08/2018 as well. The patient denies any headache. No nausea, vomiting, no diarrhea. She had a fever of 99.8 here and at home was 101 reportedly. No focal weakness. No skin rash. No blurring of vision. PAST MEDICAL HISTORY: Significant for CHF, unknown EF. History of hypertension, COPD, unknown FEV1. Chronic respiratory failure. Osteoarthritis. PAST SURGICAL HISTORY: Cholecystectomy, and hysterectomy. FAMILY HISTORY: Coronary artery disease and hypertension. SOCIAL HISTORY: One pack per day smoker for 30 years. ALLERGIES: IBUPROFEN, NAPROXEN, PIPERACILLIN AND TAZOBACTAM. CURRENT MEDICATIONS: Reviewed as listed in the MRAD including antibiotic Levaquin. REVIEW OF SYSTEMS: Twelve-point systems obtained. Pertinent positives discussed in my history of present illness, otherwise noncontributory. All systems that were negative were reviewed as well. PHYSICAL EXAMINATION: VITAL SIGNS: Reviewed. T-max of 99.8 that was yesterday and she is afebrile today. Blood pressure is stable in the 90s. Pulse ox 96% on 3 liters. HEENT: Sclerae nonicteric. NECK: Supple. LUNGS: With bilateral expiratory wheezes. CARDIOVASCULAR: Regular rate and rhythm. ABDOMEN: Soft, nontender. EXTREMITIES: With no pitting edema. LABORATORY DATA: Reviewed. White cell count of 3.2, now is 1.8. IMPRESSION: 1. Acute on chronic hypoxic respiratory failure secondary to acute exacerbation of chronic obstructive pulmonary disease and suspected interstitial pneumonia. 2. 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 Leukopenia could be related to viral infection. 3. Abnormal chest x-ray with prominent interstitial markings. This was a same pattern seen in the last year film as well. We will obtain noncontrast CT chest to rule out any interstitial pneumonia or interstitial lung disease. We will also obtain an echocardiogram. RECOMMENDATION: 1. Continue with present oxygen. 2. Continue with antibiotics. 3. Monitor for fevers. 4. IV steroids. 5. Obtain noncontrast CT chest. 6. Obtain echocardiogram. 7. Continue bronchodilators. 8. Continue diuretics. 9. Smoking cessation counseling provided to the patient. 10. The patient to follow at post-discharge. IMELDA EASTMAN MD DR: MARTÍN/lisa JOB#: [id number] / [id number]
--- NOTE | 2018-10-26 14:29 | RAD ---
CT of the chest without contrast, 10/26/2018: HISTORY: Pneumonia, interstitial lung disease Noncontrast scans were obtained as requested. Artifacts arising from a cardiac pacing device degrade image quality in the mediastinum. There is mild calcific plaquing of the aorta without evidence of aneurysm. No mediastinal adenopathy is seen. Several scattered lucencies in the lungs are compatible with emphysema. There are unchanged mild scattered linear and reticular opacities compatible with scarring scarring. A component of chronic or recurrent atelectasis cannot be excluded. No pulmonary mass or dense consolidation is seen. There is no evidence of pleural fluid. IMPRESSION: 1. Mild emphysema with parenchymal scarring. 2. No acute cardiopulmonary abnormality is detected. PQRS Compliance Statement: One or more of the following individualized dose reduction techniques were utilized for this examination: 1. Automated exposure control 2. Adjustment of the mA and/or kV according to patient size 3. Use of iterative reconstruction technique Electronically signed by: Jace Mcdonald MD (10/26/2018 2:25 PM) [facility]
[2018-10-26 15:00] VITALS: BP 78/36
--- NOTE | 2018-10-26 17:09 | CONS ---
DATE OF CONSULTATION: 10/26/2018 REQUESTING PHYSICIAN: Dr. Kaley Rashid. REASON FOR CONSULTATION: Neutropenia. HISTORY OF PRESENT ILLNESS: The patient is a 63-year-old female who has a history of chronic cigarette smoking and history of immunoglobulin deficiency for which she sees Allergy and Immunology clinic at [facility] and she gets IV immunoglobulins. She was admitted to [facility] on 10/25/2018 for exacerbation of COPD. She was noted to have leukopenia with elevated bands. She also had a fever of up to 101 degrees. She was admitted. Pulmonary Medicine was consulted and she was started on IV antibiotics and steroids. CBC on 10/26/2018 revealed a WBC of 1.9 and hence I was consulted for further evaluation. Review of the old records indicates that this is an acute neutropenia and her previous WBC counts have been normal or elevated. She underwent a CT scan of the chest on 10/26/2018 that revealed mild emphysema and parenchymal scarring. PAST MEDICAL HISTORY: 1. Cholecystectomy. 2. . 3. Hysterectomy. 4. Congestive heart failure. 5. Hypertension. 6. COPD. 7. Osteoarthritis. SOCIAL HISTORY: She has smoked 1 pack of cigarettes per day for 30 years. FAMILY HISTORY: Father had prostate cancer. Sister had breast cancer. REVIEW OF SYSTEMS: A 12-point review of system was performed. Pertinent positives are mentioned in the history of present illness. Rest of the system review is negative. PHYSICAL EXAMINATION: GENERAL APPEARANCE: The patient is a 63-year-old female who is in no acute cardiorespiratory distress. VITAL SIGNS: Blood pressure 92/48, temperature 98.5. HEAD: Atraumatic, normocephalic. EYES: No icterus. NECK: Supple. CHEST: Bilaterally symmetrical. HEART: S1, S2 normal. ABDOMEN: Soft, nontender. CENTRAL NERVOUS SYSTEM: No focal deficits. LYMPHATICS: No lymphadenopathy. SKIN: No rashes. PSYCHOLOGIC: Mood and affect are appropriate. LABORATORY DATA: On 10/26/2018, WBC 1.8, hemoglobin 11.2, platelet count 183. IMPRESSION AND PLAN: 1. Acute neutropenia with a WBC count of 1.8 on 10/26/2018, is consistent with reactive change due to underlying infection. She has evidence of 15% bands. She is admitted for chronic obstructive pulmonary disease exacerbation and she has been started on IV antibiotics. I would expect the WBC count to gradually improve as the underlying infection improves. She may have a viral infection, which could be contributing to neutropenia. I would advise continued monitoring. If her WBC count does not significantly improve, then she may need further investigation with a bone marrow aspiration and biopsy. She understands and agrees with the plan. She will follow up with her primary care physician after discharge for continued monitoring. 2. Chronic obstructive pulmonary disease exacerbation. Appreciate pulmonary consultation and management. NEGRITO ARREOLA MD DR: [place]/lisa JOB#: [id number] / [id number] [place]
[2018-10-26 18:31] LABS: BILIRUBIN,URINE NEGATIVE (NEG); CLARITY,URINE CLEAR; COLOR,URINE YELLOW; NITRITE,URINE NEGATIVE (NEG); PROTEIN,URINE NEGATIVE (NEG-TRACE); UROBILINOGEN,URINE 0.2 mg/dL (0.2 mg/dL)
[2018-10-26 18:43] LABS: BACTERIA,URINE 0 /HPF (0-FEW); HYALINE CASTS, URINE FEW /HPF; RBC,URINE 0 /HPF (0-2); SQUAMOUS EPITHELIAL CELL,UR FEW /LPF; WBC,URINE RARE /HPF (0-4)
[2018-10-26 19:00] VITALS: BP 110/55
[2018-10-26] MEDS: ATORVASTATIN CALCIUM 20 MG TABLET PO SCH (20:50)
[2018-10-26] MEDS: AMITRIPTYLINE HCL 10 MG TABLET. PO SCH (20:50)
[2018-10-26] MEDS: rOPINIRole 1 MG TABLET. PO SCH (20:50)
[2018-10-26] MEDS: LACTOBACILLUS RHAMNOSUS GG 1 CAPSULE. PO SCH (20:51)
[2018-10-26 23:00] VITALS: BP 124/50
[2018-10-27 03:11] VITALS: BP 126/63
[2018-10-27] MEDS: methylPREDNISolone SOD SUCC PF 40 MG/ML VIAL. IV SCH ×3 (05:30→21:26)
[2018-10-27] MEDS: PANTOPRAZOLE 40 MG TABLET.DR. PO SCH (05:30)
[2018-10-27] MEDS: LEVOTHYROXINE 50 MCG TABLET PO SCH (05:30)
[2018-10-27] MEDS: ASPIRIN ENTERIC COATED 81 MG TABLET.DR. PO SCH (05:35)
[2018-10-27 07:00] VITALS: BP 86/43
[2018-10-27] MEDS: IPRATRPIUM/ALBUTEROL 0.5/2.5MG 3 ML NEBU. NEB SCH ×4 (07:10→21:12)
--- NOTE | 2018-10-27 08:50 | PDOC ---
PROGRESS NOTES Subjective Subjective HPI - f/u of Acute neutropenia ROS - has cough Objective Objective Vital Signs Date Time Temp Pulse Resp B/P (MAP) Pulse Ox O2 Delivery O2 Flow Rate FiO2 10/27/18 07:26 100 Nasal Cannula 3.0 10/27/18 07:00 98.3 90 17 86/43 (57) 98.3 Intake and Output 10/27/18 07:01 Intake Total 740 ml Output Total 300 ml Balance 440 ml Intake Oral 740 ml Output Urine Total 300 ml # Voids 5 Physical Exam Heart: Normal S1, Normal S2 General: Alert, Oriented X3 Lungs: Normal air movement Neuro: Normal speech Psych/Mental Status: Mental status NL Assessment Assessment Problems Medical Problems: (1) Bandemia Status: Acute (2) COPD exacerbation Status: Acute IMPRESSION AND PLAN: 1. Acute neutropenia with a WBC count of 1.8 on 10/26/2018, is consistent with reactive change due to underlying infection. She has evidence of 15% bands. She is admitted for chronic obstructive pulmonary disease exacerbation and she has been started on IV antibiotics. I would expect the WBC count to gradually improve as the underlying infection improves. She may have a viral infection, which could be contributing to neutropenia. I would advise continued monitoring. If her WBC count does not significantly improve, then she may need further investigation with a bone marrow aspiration and biopsy. She understands and agrees with the plan. She will follow up with her primary care physician after discharge for continued monitoring. CBC 10/27/18 is pending. 2. Chronic obstructive pulmonary disease exacerbation. Appreciate pulmonary consultation and management. Comment Review of Relevant I have reviewed the following items jon (where applicable) has been applied. Labs Laboratory Tests Test 10/25/18 15:52 10/25/18 15:53 10/26/18 06:35 10/26/18 18:00 Influenza Type A Antigen Negative (NEGATIVE) Influenza Type B Antigen Negative (NEGATIVE) White Blood Count 3.2 x10^3/uL (4.0-11.0) 1.8 x10^3/uL (4.0-11.0) Red Blood Count 3.61 x10^6/uL (3.50-5.40) 3.56 x10^6/uL (3.50-5.40) Hemoglobin 11.5 g/dL (12.0-15.5) 11.2 g/dL (12.0-15.5) Hematocrit 34.2 % (36.0-47.0) 33.5 % (36.0-47.0) Mean Corpuscular Volume 95 fL (79-100) 94 fL (79-100) Mean Corpuscular Hemoglobin 32 pg (25-35) 31 pg (25-35) Mean Corpuscular Hemoglobin Concent 34 g/dL (31-37) 33 g/dL (31-37) Red Cell Distribution Width 13.6 % (11.5-14.5) 13.9 % (11.5-14.5) Platelet Count 201 x10^3/uL (140-400) 183 x10^3/uL (140-400) Neutrophils (%) (Auto) 80 % (31-73) 84 % (31-73) Lymphocytes (%) (Auto) 9 % (24-48) 12 % (24-48) Monocytes (%) (Auto) 10 % (0-9) 3 % (0-9) Eosinophils (%) (Auto) 0 % (0-3) 0 % (0-3) Basophils (%) (Auto) 0 % (0-3) 0 % (0-3) Neutrophils # (Auto) 2.6 x10^3uL (1.8-7.7) 1.5 x10^3uL (1.8-7.7) Lymphocytes # (Auto) 0.3 x10^3/uL (1.0-4.8) 0.2 x10^3/uL (1.0-4.8) Monocytes # (Auto) 0.3 x10^3/uL (0.0-1.1) 0.1 x10^3/uL (0.0-1.1) Eosinophils # (Auto) 0.0 x10^3/uL (0.0-0.7) 0.0 x10^3/uL (0.0-0.7) Basophils # (Auto) 0.0 x10^3/uL (0.0-0.2) 0.0 x10^3/uL (0.0-0.2) Segmented Neutrophils % 65 % (35-66) Band Neutrophils % 15 % (0-9) Lymphocytes % 9 % (24-48) Atypical Lymphocytes % (Manual) 1 % (0-0) Monocytes % 9 % (0-10) Eosinophils % 1 % (0-5) Platelet Estimate Adequate (ADEQUATE) Sodium Level 138 mmol/L (136-145) 138 mmol/L (136-145) Potassium Level 3.7 mmol/L (3.5-5.1) 4.3 mmol/L (3.5-5.1) Chloride Level 100 mmol/L (98-107) 102 mmol/L (98-107) Carbon Dioxide Level 32 mmol/L (21-32) 31 mmol/L (21-32) Anion Gap 6 (6-14) 5 (6-14) Blood Urea Nitrogen 16 mg/dL (7-20) 20 mg/dL (7-20) Creatinine 1.4 mg/dL (0.6-1.0) 1.1 mg/dL (0.6-1.0) Estimated GFR (Cockcroft-Gault) 37.9 50.0 BUN/Creatinine Ratio 11 (6-20) Glucose Level 96 mg/dL (70-99) 138 mg/dL (70-99) Lactic Acid Level 1.3 mmol/L (0.4-2.0) Calcium Level 8.8 mg/dL (8.5-10.1) 8.7 mg/dL (8.5-10.1) Magnesium Level 1.6 mg/dL (1.8-2.4) Total Bilirubin 0.2 mg/dL (0.2-1.0) Aspartate Amino Transf (AST/SGOT) 42 U/L (15-37) Alanine Aminotransferase (ALT/SGPT) 22 U/L (14-59) Alkaline Phosphatase 75 U/L (46-116) Troponin I Quantitative < 0.017 ng/mL (0.000-0.055) KZ-Los-Q-Type Natriuretic Peptide 1103 pg/mL (0-124) Total Protein 8.2 g/dL (6.4-8.2) Albumin 2.8 g/dL (3.4-5.0) Albumin/Globulin Ratio 0.5 (1.0-1.7) Urine Collection Type Unknown Urine Color Yellow Urine Clarity Clear Urine pH 6.0 Urine Specific [place] 1.010 Urine Protein Negative mg/dL (NEG-TRACE) Urine Glucose (UA) Negative mg/dL (NEG) Urine Ketones (Stick) Negative mg/dL (NEG) Urine Blood Negative (NEG) Urine Nitrite Negative (NEG) Urine Bilirubin Negative (NEG) Urine Urobilinogen Dipstick 0.2 mg/dL (0.2 mg/dL) Urine Leukocyte Esterase Negative (NEG) Urine RBC 0 /HPF (0-2) Urine WBC Rare /HPF (0-4) Urine Squamous Epithelial Cells Few /LPF Urine Bacteria 0 /HPF (0-FEW) Urine Hyaline Casts Few /HPF Urine Mucus Slight /LPF Laboratory Tests Test 10/26/18 18:00 Urine Collection Type Unknown Urine Color Yellow Urine Clarity Clear Urine pH 6.0 Urine Specific [place] 1.010 Urine Protein Negative mg/dL (NEG-TRACE) Urine Glucose (UA) Negative mg/dL (NEG) Urine Ketones (Stick) Negative mg/dL (NEG) Urine Blood Negative (NEG) Urine Nitrite Negative (NEG) Urine Bilirubin Negative (NEG) Urine Urobilinogen Dipstick 0.2 mg/dL (0.2 mg/dL) Urine Leukocyte Esterase Negative (NEG) Urine RBC 0 /HPF (0-2) Urine WBC Rare /HPF (0-4) Urine Squamous Epithelial Cells Few /LPF Urine Bacteria 0 /HPF (0-FEW) Urine Hyaline Casts Few /HPF Urine Mucus Slight /LPF Microbiology 10/25/18 Blood Culture - Preliminary, Resulted NO GROWTH AFTER 1 DAY Medications Current Medications Albuterol/ Ipratropium (Duoneb) 3 ml 1X ONCE NEB Last administered on at 16:13; Start 10/25/18 at 16:00; Stop 10/25/18 at 16:01; Status DC Methylprednisolone Sodium Succinate (SOLU-Medrol 125MG VIAL) 125 mg 1X ONCE IV Last administered on 10/25/18at 16:16; Start 10/25/18 at 16:00; Stop 10/25/18 at 16:01; Status DC Acetaminophen (Tylenol) 650 mg 1X ONCE PO Last administered on 10/25/18at 16:14 ; Start 10/25/18 at 16:00; Stop 10/25/18 at 16:01; Status DC Sodium Chloride 1,000 ml @ 1,000 mls/hr 1X ONCE IV Last administered on at 16:36; Start 10/25/18 at 16:45; Stop 10/25/18 at 17:50; Status DC Ceftriaxone Sodium (Rocephin) 1 gm 1X ONCE IVP ; Start 10/25/18 at 17:00; Stop 10/25/18 at 17:01; Status UNV Azithromycin 250 ml @ 250 mls/hr 1X ONCE IV ; Start 10/25/18 at 17:00; Stop at 17:59; Status Cancel Albuterol/ Ipratropium (Duoneb) 3 ml 1X ONCE NEB Last administered on at 18:00; Start 10/25/18 at 17:00; Stop 10/25/18 at 17:06; Status DC Levofloxacin/ Dextrose 150 ml @ 100 mls/hr 1X ONCE IV Last administered on at 17:58; Start 10/25/18 at 17:15; Stop 10/25/18 at 18:44; Status DC Acetaminophen (Tylenol) 650 mg PRN Q4HRS PRN PO FEVER; Start 10/25/18 at 17:15 ; Stop 10/26/18 at 17:14; Status DC Albuterol/ Ipratropium (Duoneb) 3 ml RTQID NEB Last administered on 10/26/18at 15:14; Start 10/25/18 at 20:00; Stop 10/26/18 at 20:12; Status DC Benzonatate (Tessalon Perle) 100 mg [id number] PO Last administered on 10/26/18at 20 :51; Start 10/25/18 at 21:00 Guaifenesin (Robitussin Dm) 10 ml PRN Q6HRS PRN PO COUGH 1ST CHOICE; Start at 17:30 Diphenhydramine HCl (Benadryl) 25 mg PRN QHS PRN PO INSOMNIA; Start 10/25/18 at 17:30 Ondansetron HCl (Zofran) 4 mg PRN Q6HRS PRN IV NAUSEA/VOMITING; Start 10/25/18 at 17:30 Ondansetron HCl (Zofran Odt) 4 mg PRN Q6HRS PRN PO NAUSEA/VOMITING; Start 10/25 at 17:30 Amitriptyline HCl (Elavil) 20 mg QHS PO Last administered on 10/26/18at 20:50; Start 10/25/18 at 21:00 Aspirin (Ecotrin) 81 mg DAILY07 PO Last administered on 10/27/18 05:35; Start 10/25/18 at 18:00 Atorvastatin Calcium (Lipitor) 20 mg HS PO Last administered on 10/26/18 20:50 ; Start 10/25/18 at 21:00 Vitamin D (Vitamin D3) 1,000 unit DAILY PO Last administered on 10/26/18 09:45 ; Start 10/25/18 at 18:00 Ferrous Sulfate (Feosol) 325 mg DAILY08 PO Last administered on 10/26/18 09:44 ; Start 10/25/18 at 18:00 Gabapentin (Neurontin) 100 mg TID PO Last administered on 10/26/18 20:51; Start 10/25/18 at 21:00 Acetaminophen/ Hydrocodone Bitart (Lortab 10/325) 1 tab PRN Q6HRS PRN PO MODERATE-SEVERE PAIN; Start 10/25/18 at 17:30 Acetaminophen/ Hydrocodone Bitart (Lortab 5/325) 1 tab QID PO Last administered on 10/26/18 20:51; Start 10/25/18 at 21:00 Metoprolol Succinate (Toprol Xl) 12.5 mg DAILY PO Last administered on 09:46; Start 10/25/18 at 18:00 Oxycodone/ Acetaminophen (Percocet 5/325) 1 tab PRN Q6HRS PRN PO PAIN severe 2nd choice; Start 10/25/18 at 17:30 Pantoprazole Sodium (Protonix) 40 mg DAILY07 PO Last administered on 10/27/18 05:30; Start 10/25/18 at 18:00 Potassium Citrate (Urocit-K) 20 meq DAILY08 PO Last administered on 10/26/18 09:45; Start 10/25/18 at 18:00 Non-Formulary Medication (Alendronate Sodium ) 1 tab WEEKLY PO ; Start 11/01/18 at 09:00; Status UNV Levothyroxine Sodium (Synthroid) 50 mcg DAILY06 PO Last administered on 05:30; Start 10/25/18 at 18:00 Non-Formulary Medication (Ondansetron (Zofran Odt)) 8 mg BID PRN PO NAUSEA/ VOMITING; Start 10/25/18 at 17:30; Status UNV Roflumilast (Daliresp) 500 mcg DAILY PO Last administered on 10/26/18at 09:44; Start 10/25/18 at 18:00 Ropinirole HCl (Requip) 3 mg QHS PO Last administered on 10/26/18at 20:50; Start 10/25/18 at 21:00 Torsemide (Demadex) 20 mg DAILY PO Last administered on 10/26/18at 09:44; Start 10/25/18 at 18:00 Albuterol Sulfate (Ventolin Neb Soln) 2.5 mg PRN Q4HRS PRN NEB SHORTNESS OF BREATH; Start 10/25/18 at 18:15 Methylprednisolone Sodium Succinate (SOLU-Medrol 40MG VIAL) 60 mg Q8HRS IV Last administered on 10/27/18at 05:30; Start 10/25/18 at 22:00 Temazepam (Restoril) 7.5 mg PRN QHS PRN PO INSOMNIA; Start 10/25/18 at 20:00 Levofloxacin/ Dextrose (Levaquin Per Pharmacy) 1 each PRN DAILY PRN MC SEE COMMENTS; Start 10/25/18 at 20:00; Status Cancel Levofloxacin/ Dextrose 50 ml @ 50 mls/hr Q24H IV ; Start 10/26/18 at 17:00; Stop 10/26/18 at 17:00; Status DC Levofloxacin (Levaquin) 500 mg DAILY16 PO Last administered on 10/27/18at 05:30 ; Start 10/26/18 at 16:00 Levofloxacin/ Dextrose (Levaquin Per Pharmacy) 1 each PRN DAILY PRN MC SEE COMMENTS; Start 10/26/18 at 08:15 Lactobacillus Rhamnosus (Culturelle) 1 cap BID PO Last administered on at 20:51; Start 10/26/18 at 21:00 Albuterol/ Ipratropium (Duoneb) 3 ml RTQID NEB Last administered on 10/27/18at 07:10; Start 10/26/18 at 20:00 Active Scripts Active Prednisone (Prednisone) 10 Mg Tablet 30 Mg PO DAILY Mucinex (Guaifenesin) 600 Mg Tablet.er 600 Mg PO BID Hydrocodone-Apap 10-325 (Hydrocodone Bit/Acetaminophen) 1 Each Tablet 1 Tab PO PRN Q6HRS PRN Doxycycline Hyclate 100 Mg Tablet 100 Mg PO BID 5 Days [place] 5-325 Tablet (Acetaminophen/Hydrocodone Bitart) 1 Each Tablet 1-2 Tab PO Q4-6HRS Reported Percocet 5-325 Mg Tablet (Oxycodone/Acetaminophen) 1 Each Tablet 1 Tab PO PRN Q6HRS PRN Zofran Odt (Ondansetron) 8 Mg Tab.rapdis 8 Mg PO BID PRN Aspir 81 (Aspirin) 81 Mg Tablet. 1 Tab PO DAILY Metoprolol Succinate ( Xl ) (Metoprolol Succinate) 25 Mg Tab.er.24h 12.5 Mg PO DAILY Vitamin D3 (Cholecalciferol (Vitamin D3)) 1,000 Unit Tablet 1 Tab PO DAILY Torsemide 20 Mg Tablet 1 Tab PO DAILY Gabapentin (Gabapentin) 100 Mg Capsule 100 Mg PO TID Ferrous Sulfate 325 Mg Tablet 1 Tab PO DAILY Daliresp (Roflumilast) 500 Mcg Tablet 1 Tab PO DAILY Atorvastatin Calcium 20 Mg Tablet 20 Mg PO HS Amitriptyline Hcl 10 Mg Tablet 1-2 Tab PO QHS Alendronate Sodium 70 Mg Tablet 1 Tab PO WEEKLY Requip (Ropinirole Hcl) 1 Mg Tablet 3 Tab PO QHS Proair Hfa Inhaler (Albuterol Sulfate) 8.5 Gm Hfa.aer.ad 1 Puff INH PRN Q6HRS PRN Potassium Citrate 10 Meq Tablet.er 20 Meq PO DAILY Protonix (Pantoprazole Sodium) 40 Mg Tablet. 1 Tab PO DAILY Lidocaine 1 Each Adh..patch 1 Each TP Levothyroxine Sodium 50 Mcg Tablet 1 Tab PO DAILY Vitals/I & O Vital Sign - Last 24 Hours 10/26/18 10/26/18 10/26/18 10/26/18 09:46 09:51 10:57 11:00 Temp 98.5 98.5 Pulse 75 92 Resp 21 B/P (MAP) 95/42 92/48 (63) Pulse Ox 96 97 O2 Delivery Nasal Cannula Nasal Cannula O2 Flow Rate 3.0 3.0 10/26/18 10/26/18 10/26/18 10/26/18 13:53 15:00 15:15 16:38 Temp 97.9 97.9 Pulse 91 Resp 21 B/P (MAP) 78/36 (50) Pulse Ox 98 O2 Delivery Nasal Cannula Nasal Cannula Nasal Cannula O2 Flow Rate 3.0 3.0 3.0 10/26/18 10/26/18 10/26/18 10/26/18 19:00 19:44 20:00 20:51 Temp 97.4 97.4 Pulse 83 Resp B/P (MAP) 110/55 (73) Pulse Ox 97 97 O2 Delivery Nasal Cannula Nasal Cannula Nasal Cannula Nasal Cannula O2 Flow Rate 3.0 3.0 3.0 10/26/18 10/26/18 10/27/18 10/27/18 21:51 23:00 03:11 07:00 Temp 97.9 98.1 98.3 97.9 98.1 98.3 Pulse 90 91 90 Resp 18 B/P (MAP) 124/50 (74) 126/63 (84) 86/43 (57) Pulse Ox 97 97 100 100 O2 Delivery Nasal Cannula Room Air Nasal Cannula Nasal Cannula O2 Flow Rate 3.0 10/27/18 07:26 Pulse Ox 100 O2 Delivery Nasal Cannula O2 Flow Rate 3.0 Intake and Output 10/26/18 10/26/18 10/27/18 15:01 23:01 07:01 Intake Total 380 ml 360 ml Output Total 300 ml Balance 380 ml 360 ml -300 ml NEGRITO ARREOLA MD Oct 27, 2018 08:50
[2018-10-27] MEDS: METOPROLOL SUCC 24HR ER 25 MG TAB.ER.24H. PO SCH (09:00)
[2018-10-27] MEDS: TORSEMIDE 20 MG TABLET. PO SCH (09:41)
[2018-10-27] MEDS: FERROUS SULFATE 325 MG TABLET. PO SCH (09:41)
[2018-10-27] MEDS: LACTOBACILLUS RHAMNOSUS GG 1 CAPSULE. PO SCH ×2 (09:42→21:24)
[2018-10-27] MEDS: HYDROcodone/APAP 5/325MG 1 TAB TABLET PO SCH ×4 (09:42→21:25)
[2018-10-27] MEDS: POTASSIUM CITRATE 10 MEQ TABLET.ER PO SCH (09:43)
[2018-10-27] MEDS: CHOLECALCIFEROL (VITAMIN D3) 1,000 UNIT TABLET PO SCH (09:43)
[2018-10-27] MEDS: ROFLUMILAST 500 MCG TABLET. PO SCH (09:43)
[2018-10-27] MEDS: BENZONATATE 100 MG CAPSULE. PO SCH ×3 (09:44→21:25)
[2018-10-27] MEDS: GABAPENTIN 100 MG CAPSULE. PO SCH ×3 (09:44→21:26)
--- NOTE | 2018-10-27 09:50 | NUR ---
SW following pt for anticipated dc needs. Chart reviewed. Pt is from home with spouse and has home 02. PT recommends SNU. Spoke with pt at bedside and pt agreeable with SNU at [facility]. SW phoned and faxed referral to [facility]. Pt admission and acceptance pending. SW will continue to follow.
[2018-10-27 09:52] LABS: BASO % 0 % (0-3); EOS % 0 % (0-3); HEMATOCRIT 34.1 % (36.0-47.0); HEMOGLOBIN 11.5 g/dL (12.0-15.5); LYMPH # 0.3 x10^3/uL (1.0-4.8); LYMPH % 5 % (24-48); MEAN CORPUSCULAR HEMOGLOBIN 32 pg (25-35); MEAN CORPUSCULAR HGB CONC 34 g/dL (31-37); MEAN CORPUSCULAR VOLUME 95 fL (79-100); MONO # 0.1 x10^3/uL (0.0-1.1); MONO % 3 % (0-9); NEUT # 5.4 x10^3uL (1.8-7.7); NEUT % 92 % (31-73); PLATELET COUNT 180 x10^3/uL (140-400); RED BLOOD COUNT 3.61 x10^6/uL (3.50-5.40); RED CELL DISTRIBUTION WIDTH 13.7 % (11.5-14.5); WHITE BLOOD COUNT 5.8 x10^3/uL (4.0-11.0)
[2018-10-27 11:00] VITALS: BP 87/34
--- NOTE | 2018-10-27 11:57 | PDOC ---
PULMONARY PROGRESS NOTES Subjective no joe, mild cough Vitals Vital Signs Date Time Temp Pulse Resp B/P (MAP) Pulse Ox O2 Delivery O2 Flow Rate FiO2 10/27/18 11:00 97.8 96 17 87/34 (51) 99 Nasal Cannula 97.8 10/27/18 10:42 3.0 General: Alert, No acute distress Lungs: Other (few rhonchi) Cardiovascular: S1, S2 Abdomen: Soft, Non-tender Extremities: No Edema Labs Laboratory Tests Test 10/25/18 15:52 10/25/18 15:53 10/26/18 06:35 10/26/18 18:00 Influenza Type A Antigen Negative (NEGATIVE) Influenza Type B Antigen Negative (NEGATIVE) White Blood Count 3.2 x10^3/uL (4.0-11.0) 1.8 x10^3/uL (4.0-11.0) Red Blood Count 3.61 x10^6/uL (3.50-5.40) 3.56 x10^6/uL (3.50-5.40) Hemoglobin 11.5 g/dL (12.0-15.5) 11.2 g/dL (12.0-15.5) Hematocrit 34.2 % (36.0-47.0) 33.5 % (36.0-47.0) Mean Corpuscular Volume 95 fL (79-100) 94 fL (79-100) Mean Corpuscular Hemoglobin 32 pg (25-35) 31 pg (25-35) Mean Corpuscular Hemoglobin Concent 34 g/dL (31-37) 33 g/dL (31-37) Red Cell Distribution Width 13.6 % (11.5-14.5) 13.9 % (11.5-14.5) Platelet Count 201 x10^3/uL (140-400) 183 x10^3/uL (140-400) Neutrophils (%) (Auto) 80 % (31-73) 84 % (31-73) Lymphocytes (%) (Auto) 9 % (24-48) 12 % (24-48) Monocytes (%) (Auto) 10 % (0-9) 3 % (0-9) Eosinophils (%) (Auto) 0 % (0-3) 0 % (0-3) Basophils (%) (Auto) 0 % (0-3) 0 % (0-3) Neutrophils # (Auto) 2.6 x10^3uL (1.8-7.7) 1.5 x10^3uL (1.8-7.7) Lymphocytes # (Auto) 0.3 x10^3/uL (1.0-4.8) 0.2 x10^3/uL (1.0-4.8) Monocytes # (Auto) 0.3 x10^3/uL (0.0-1.1) 0.1 x10^3/uL (0.0-1.1) Eosinophils # (Auto) 0.0 x10^3/uL (0.0-0.7) 0.0 x10^3/uL (0.0-0.7) Basophils # (Auto) 0.0 x10^3/uL (0.0-0.2) 0.0 x10^3/uL (0.0-0.2) Segmented Neutrophils % 65 % (35-66) Band Neutrophils % 15 % (0-9) Lymphocytes % 9 % (24-48) Atypical Lymphocytes % (Manual) 1 % (0-0) Monocytes % 9 % (0-10) Eosinophils % 1 % (0-5) Platelet Estimate Adequate (ADEQUATE) Sodium Level 138 mmol/L (136-145) 138 mmol/L (136-145) Potassium Level 3.7 mmol/L (3.5-5.1) 4.3 mmol/L (3.5-5.1) Chloride Level 100 mmol/L (98-107) 102 mmol/L (98-107) Carbon Dioxide Level 32 mmol/L (21-32) 31 mmol/L (21-32) Anion Gap 6 (6-14) 5 (6-14) Blood Urea Nitrogen 16 mg/dL (7-20) 20 mg/dL (7-20) Creatinine 1.4 mg/dL (0.6-1.0) 1.1 mg/dL (0.6-1.0) Estimated GFR (Cockcroft-Gault) 37.9 50.0 BUN/Creatinine Ratio 11 (6-20) Glucose Level 96 mg/dL (70-99) 138 mg/dL (70-99) Lactic Acid Level 1.3 mmol/L (0.4-2.0) Calcium Level 8.8 mg/dL (8.5-10.1) 8.7 mg/dL (8.5-10.1) Magnesium Level 1.6 mg/dL (1.8-2.4) Total Bilirubin 0.2 mg/dL (0.2-1.0) Aspartate Amino Transf (AST/SGOT) 42 U/L (15-37) Alanine Aminotransferase (ALT/SGPT) 22 U/L (14-59) Alkaline Phosphatase 75 U/L (46-116) Troponin I Quantitative < 0.017 ng/mL (0.000-0.055) AL-Nml-Y-Type Natriuretic Peptide 1103 pg/mL (0-124) Total Protein 8.2 g/dL (6.4-8.2) Albumin 2.8 g/dL (3.4-5.0) Albumin/Globulin Ratio 0.5 (1.0-1.7) Urine Collection Type Unknown Urine Color Yellow Urine Clarity Clear Urine pH 6.0 Urine Specific [place] 1.010 Urine Protein Negative mg/dL (NEG-TRACE) Urine Glucose (UA) Negative mg/dL (NEG) Urine Ketones (Stick) Negative mg/dL (NEG) Urine Blood Negative (NEG) Urine Nitrite Negative (NEG) Urine Bilirubin Negative (NEG) Urine Urobilinogen Dipstick 0.2 mg/dL (0.2 mg/dL) Urine Leukocyte Esterase Negative (NEG) Urine RBC 0 /HPF (0-2) Urine WBC Rare /HPF (0-4) Urine Squamous Epithelial Cells Few /LPF Urine Bacteria 0 /HPF (0-FEW) Urine Hyaline Casts Few /HPF Urine Mucus Slight /LPF Test 10/27/18 09:25 White Blood Count 5.8 x10^3/uL (4.0-11.0) Red Blood Count 3.61 x10^6/uL (3.50-5.40) Hemoglobin 11.5 g/dL (12.0-15.5) Hematocrit 34.1 % (36.0-47.0) Mean Corpuscular Volume 95 fL (79-100) Mean Corpuscular Hemoglobin 32 pg (25-35) Mean Corpuscular Hemoglobin Concent 34 g/dL (31-37) Red Cell Distribution Width 13.7 % (11.5-14.5) Platelet Count 180 x10^3/uL (140-400) Neutrophils (%) (Auto) 92 % (31-73) Lymphocytes (%) (Auto) 5 % (24-48) Monocytes (%) (Auto) 3 % (0-9) Eosinophils (%) (Auto) 0 % (0-3) Basophils (%) (Auto) 0 % (0-3) Neutrophils # (Auto) 5.4 x10^3uL (1.8-7.7) Lymphocytes # (Auto) 0.3 x10^3/uL (1.0-4.8) Monocytes # (Auto) 0.1 x10^3/uL (0.0-1.1) Eosinophils # (Auto) 0.0 x10^3/uL (0.0-0.7) Basophils # (Auto) 0.0 x10^3/uL (0.0-0.2) Laboratory Tests Test 10/26/18 18:00 10/27/18 09:25 Urine Collection Type Unknown Urine Color Yellow Urine Clarity Clear Urine pH 6.0 Urine Specific [place] 1.010 Urine Protein Negative mg/dL (NEG-TRACE) Urine Glucose (UA) Negative mg/dL (NEG) Urine Ketones (Stick) Negative mg/dL (NEG) Urine Blood Negative (NEG) Urine Nitrite Negative (NEG) Urine Bilirubin Negative (NEG) Urine Urobilinogen Dipstick 0.2 mg/dL (0.2 mg/dL) Urine Leukocyte Esterase Negative (NEG) Urine RBC 0 /HPF (0-2) Urine WBC Rare /HPF (0-4) Urine Squamous Epithelial Cells Few /LPF Urine Bacteria 0 /HPF (0-FEW) Urine Hyaline Casts Few /HPF Urine Mucus Slight /LPF White Blood Count 5.8 x10^3/uL (4.0-11.0) Red Blood Count 3.61 x10^6/uL (3.50-5.40) Hemoglobin 11.5 g/dL (12.0-15.5) Hematocrit 34.1 % (36.0-47.0) Mean Corpuscular Volume 95 fL (79-100) Mean Corpuscular Hemoglobin 32 pg (25-35) Mean Corpuscular Hemoglobin Concent 34 g/dL (31-37) Red Cell Distribution Width 13.7 % (11.5-14.5) Platelet Count 180 x10^3/uL (140-400) Neutrophils (%) (Auto) 92 % (31-73) Lymphocytes (%) (Auto) 5 % (24-48) Monocytes (%) (Auto) 3 % (0-9) Eosinophils (%) (Auto) 0 % (0-3) Basophils (%) (Auto) 0 % (0-3) Neutrophils # (Auto) 5.4 x10^3uL (1.8-7.7) Lymphocytes # (Auto) 0.3 x10^3/uL (1.0-4.8) Monocytes # (Auto) 0.1 x10^3/uL (0.0-1.1) Eosinophils # (Auto) 0.0 x10^3/uL (0.0-0.7) Basophils # (Auto) 0.0 x10^3/uL (0.0-0.2) Medications Active Scripts Medications Dose Route/Sig Max Daily Dose Days Date Category Prednisone (Prednisone) 10 Mg Tablet 30 Mg PO DAILY 08/13/18 Rx Mucinex (Guaifenesin) 600 Mg Tablet.er 600 Mg PO BID 08/13/18 Rx Hydrocodone-Apap 10-325 (Hydrocodone Bit/Acetaminophen) 1 Each Tablet 1 Tab PO PRN Q6HRS PRN 08/13/18 Rx Doxycycline Hyclate 100 Mg Tablet 100 Mg PO BID 5 08/13/18 Rx Percocet 5-325 Mg Tablet (Oxycodone/Acetaminophen) 1 Each Tablet 1 Tab PO PRN Q6HRS PRN 08/09/18 Reported Zofran Odt (Ondansetron) 8 Mg Tab.rapdis 8 Mg PO BID PRN 08/09/18 Reported [place] 5-325 Tablet (Acetaminophen/Hydrocodone Bitart) 1 Each Tablet 1-2 Tab PO Q4-6HRS 06/24/18 Rx Aspir 81 (Aspirin) 81 Mg Tablet.dr 1 Tab PO DAILY 01/03/18 Reported Metoprolol Succinate ( Xl ) (Metoprolol Succinate) 25 Mg Tab.er.24h 12.5 Mg PO DAILY 01/03/18 Reported Vitamin D3 (Cholecalciferol (Vitamin D3)) 1,000 Unit Tablet 1 Tab PO DAILY 01/02/18 Reported Torsemide 20 Mg Tablet 1 Tab PO DAILY 01/02/18 Reported Gabapentin (Gabapentin) 100 Mg Capsule 100 Mg PO TID 01/02/18 Reported Ferrous Sulfate 325 Mg Tablet 1 Tab PO DAILY 09/23/17 Reported Daliresp (Roflumilast) 500 Mcg Tablet 1 Tab PO DAILY 09/23/17 Reported Atorvastatin Calcium 20 Mg Tablet 20 Mg PO HS 09/23/17 Reported Amitriptyline Hcl 10 Mg Tablet 1-2 Tab PO QHS 09/23/17 Reported Alendronate Sodium 70 Mg Tablet 1 Tab PO WEEKLY 09/23/17 Reported Requip (Ropinirole Hcl) 1 Mg Tablet 3 Tab PO QHS 09/23/17 Reported Proair Hfa Inhaler (Albuterol Sulfate) 8.5 Gm Hfa.aer.ad 1 Puff INH PRN Q6HRS PRN 09/23/17 Reported Potassium Citrate 10 Meq Tablet.er 20 Meq PO DAILY 09/23/17 Reported Protonix (Pantoprazole Sodium) 40 Mg Tablet.dr 1 Tab PO DAILY 09/23/17 Reported Lidocaine 1 Each Adh..patch 1 Each TP 09/23/17 Reported Levothyroxine Sodium 50 Mcg Tablet 1 Tab PO DAILY 09/23/17 Reported Impression . 1. Acute on chronic hypoxic respiratory failure secondary to acute exacerbation of chronic obstructive pulmonary disease and suspected interstitial pneumonia. 2. 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 Leukopenia could be related to viral infection. 3. Abnormal chest x-ray with prominent interstitial markings. This was a same pattern seen in the last year film as well. CT chest reviewed. There is no evidence of interstitial pneumonia or interstitial lung disease. Plan . 1. Continue with present oxygen. 2. Continue with antibiotics. 3. Monitor for fevers. 4. steroids. 5. CT chest reviewed. 6. Normal EF by last echocardiogram. 7. Continue bronchodilators. 8. Continue diuretics. 9. Smoking cessation counseling provided to the patient. 10. The patient to follow at post-discharge. IMELDA EASTMAN MD Oct 27, 2018 11:57
[2018-10-27] MEDS: PHENOL ORAL SPRAY 177ML BOTTLE. PO PRN ×2 (12:22→16:43)
[2018-10-27 15:00] VITALS: BP 89/45
--- NOTE | 2018-10-27 16:11 | PDOC ---
PROGRESS NOTES Chief Complaint Chief Complaint Severe acute exacerbation of COPD sepsis known Immune deficiency, NOS, got IgG infusion at home 10/25, per [facility] vasomotor nephropathy, in the background of diuretic use- HTN-chronic stable Hypothyroidism on replacement Dyslipidemia on statin malnutrition, POA, serum alb 2.8 History of Present Illness History of Present Illness still weak, marked dyspnea with any exertion less cough, creatinine improved Vitals Vitals Vital Signs Date Time Temp Pulse Resp B/P (MAP) Pulse Ox O2 Delivery O2 Flow Rate FiO2 10/27/18 15:06 Nasal Cannula 2.0 10/27/18 15:00 97.8 96 17 89/45 (60) 94 97.8 Physical Exam General: Alert, Oriented X3 Heart: Normal S1, Normal S2 Lungs: Other (few rhonchi) Abdomen: Normal bowel sounds, Soft, No tenderness, No hepatosplenomegaly, No masses Extremities: No clubbing, No cyanosis, No edema, Normal pulses, No tenderness/ swelling Skin: No rashes, No breakdown, No significant lesion Labs LABS Laboratory Tests Test 10/26/18 18:00 10/27/18 09:25 Urine Collection Type Unknown Urine Color Yellow Urine Clarity Clear Urine pH 6.0 Urine Specific [place] 1.010 Urine Protein Negative mg/dL (NEG-TRACE) Urine Glucose (UA) Negative mg/dL (NEG) Urine Ketones (Stick) Negative mg/dL (NEG) Urine Blood Negative (NEG) Urine Nitrite Negative (NEG) Urine Bilirubin Negative (NEG) Urine Urobilinogen Dipstick 0.2 mg/dL (0.2 mg/dL) Urine Leukocyte Esterase Negative (NEG) Urine RBC 0 /HPF (0-2) Urine WBC Rare /HPF (0-4) Urine Squamous Epithelial Cells Few /LPF Urine Bacteria 0 /HPF (0-FEW) Urine Hyaline Casts Few /HPF Urine Mucus Slight /LPF White Blood Count 5.8 x10^3/uL (4.0-11.0) Red Blood Count 3.61 x10^6/uL (3.50-5.40) Hemoglobin 11.5 g/dL (12.0-15.5) Hematocrit 34.1 % (36.0-47.0) Mean Corpuscular Volume 95 fL (79-100) Mean Corpuscular Hemoglobin 32 pg (25-35) Mean Corpuscular Hemoglobin Concent 34 g/dL (31-37) Red Cell Distribution Width 13.7 % (11.5-14.5) Platelet Count 180 x10^3/uL (140-400) Neutrophils (%) (Auto) 92 % (31-73) Lymphocytes (%) (Auto) 5 % (24-48) Monocytes (%) (Auto) 3 % (0-9) Eosinophils (%) (Auto) 0 % (0-3) Basophils (%) (Auto) 0 % (0-3) Neutrophils # (Auto) 5.4 x10^3uL (1.8-7.7) Lymphocytes # (Auto) 0.3 x10^3/uL (1.0-4.8) Monocytes # (Auto) 0.1 x10^3/uL (0.0-1.1) Eosinophils # (Auto) 0.0 x10^3/uL (0.0-0.7) Basophils # (Auto) 0.0 x10^3/uL (0.0-0.2) Review of Systems Review of Systems dyspnea, weakness Assessment and Plan Assessmemt and Plan Problems Medical Problems: (1) Bandemia Status: Acute (2) COPD exacerbation Status: Acute Comment Review of Relevant I have reviewed the following items jon (where applicable) has been applied. Labs Laboratory Tests Test 10/26/18 06:35 10/26/18 18:00 10/27/18 09:25 White Blood Count 1.8 x10^3/uL (4.0-11.0) 5.8 x10^3/uL (4.0-11.0) Red Blood Count 3.56 x10^6/uL (3.50-5.40) 3.61 x10^6/uL (3.50-5.40) Hemoglobin 11.2 g/dL (12.0-15.5) 11.5 g/dL (12.0-15.5) Hematocrit 33.5 % (36.0-47.0) 34.1 % (36.0-47.0) Mean Corpuscular Volume 94 fL (79-100) 95 fL (79-100) Mean Corpuscular Hemoglobin 31 pg (25-35) 32 pg (25-35) Mean Corpuscular Hemoglobin Concent 33 g/dL (31-37) 34 g/dL (31-37) Red Cell Distribution Width 13.9 % (11.5-14.5) 13.7 % (11.5-14.5) Platelet Count 183 x10^3/uL (140-400) 180 x10^3/uL (140-400) Neutrophils (%) (Auto) 84 % (31-73) 92 % (31-73) Lymphocytes (%) (Auto) 12 % (24-48) 5 % (24-48) Monocytes (%) (Auto) 3 % (0-9) 3 % (0-9) Eosinophils (%) (Auto) 0 % (0-3) 0 % (0-3) Basophils (%) (Auto) 0 % (0-3) 0 % (0-3) Neutrophils # (Auto) 1.5 x10^3uL (1.8-7.7) 5.4 x10^3uL (1.8-7.7) Lymphocytes # (Auto) 0.2 x10^3/uL (1.0-4.8) 0.3 x10^3/uL (1.0-4.8) Monocytes # (Auto) 0.1 x10^3/uL (0.0-1.1) 0.1 x10^3/uL (0.0-1.1) Eosinophils # (Auto) 0.0 x10^3/uL (0.0-0.7) 0.0 x10^3/uL (0.0-0.7) Basophils # (Auto) 0.0 x10^3/uL (0.0-0.2) 0.0 x10^3/uL (0.0-0.2) Sodium Level 138 mmol/L (136-145) Potassium Level 4.3 mmol/L (3.5-5.1) Chloride Level 102 mmol/L (98-107) Carbon Dioxide Level 31 mmol/L (21-32) Anion Gap 5 (6-14) Blood Urea Nitrogen 20 mg/dL (7-20) Creatinine 1.1 mg/dL (0.6-1.0) Estimated GFR (Cockcroft-Gault) 50.0 Glucose Level 138 mg/dL (70-99) Calcium Level 8.7 mg/dL (8.5-10.1) Urine Collection Type Unknown Urine Color Yellow Urine Clarity Clear Urine pH 6.0 Urine Specific [place] 1.010 Urine Protein Negative mg/dL (NEG-TRACE) Urine Glucose (UA) Negative mg/dL (NEG) Urine Ketones (Stick) Negative mg/dL (NEG) Urine Blood Negative (NEG) Urine Nitrite Negative (NEG) Urine Bilirubin Negative (NEG) Urine Urobilinogen Dipstick 0.2 mg/dL (0.2 mg/dL) Urine Leukocyte Esterase Negative (NEG) Urine RBC 0 /HPF (0-2) Urine WBC Rare /HPF (0-4) Urine Squamous Epithelial Cells Few /LPF Urine Bacteria 0 /HPF (0-FEW) Urine Hyaline Casts Few /HPF Urine Mucus Slight /LPF Laboratory Tests Test 10/26/18 18:00 10/27/18 09:25 Urine Collection Type Unknown Urine Color Yellow Urine Clarity Clear Urine pH 6.0 Urine Specific [place] 1.010 Urine Protein Negative mg/dL (NEG-TRACE) Urine Glucose (UA) Negative mg/dL (NEG) Urine Ketones (Stick) Negative mg/dL (NEG) Urine Blood Negative (NEG) Urine Nitrite Negative (NEG) Urine Bilirubin Negative (NEG) Urine Urobilinogen Dipstick 0.2 mg/dL (0.2 mg/dL) Urine Leukocyte Esterase Negative (NEG) Urine RBC 0 /HPF (0-2) Urine WBC Rare /HPF (0-4) Urine Squamous Epithelial Cells Few /LPF Urine Bacteria 0 /HPF (0-FEW) Urine Hyaline Casts Few /HPF Urine Mucus Slight /LPF White Blood Count 5.8 x10^3/uL (4.0-11.0) Red Blood Count 3.61 x10^6/uL (3.50-5.40) Hemoglobin 11.5 g/dL (12.0-15.5) Hematocrit 34.1 % (36.0-47.0) Mean Corpuscular Volume 95 fL (79-100) Mean Corpuscular Hemoglobin 32 pg (25-35) Mean Corpuscular Hemoglobin Concent 34 g/dL (31-37) Red Cell Distribution Width 13.7 % (11.5-14.5) Platelet Count 180 x10^3/uL (140-400) Neutrophils (%) (Auto) 92 % (31-73) Lymphocytes (%) (Auto) 5 % (24-48) Monocytes (%) (Auto) 3 % (0-9) Eosinophils (%) (Auto) 0 % (0-3) Basophils (%) (Auto) 0 % (0-3) Neutrophils # (Auto) 5.4 x10^3uL (1.8-7.7) Lymphocytes # (Auto) 0.3 x10^3/uL (1.0-4.8) Monocytes # (Auto) 0.1 x10^3/uL (0.0-1.1) Eosinophils # (Auto) 0.0 x10^3/uL (0.0-0.7) Basophils # (Auto) 0.0 x10^3/uL (0.0-0.2) Microbiology 10/25/18 Blood Culture - Preliminary, Resulted NO GROWTH AFTER 1 DAY Medications Current Medications Albuterol/ Ipratropium (Duoneb) 3 ml 1X ONCE NEB Last administered on at 16:13; Start 10/25/18 at 16:00; Stop 10/25/18 at 16:01; Status DC Methylprednisolone Sodium Succinate (SOLU-Medrol 125MG VIAL) 125 mg 1X ONCE IV Last administered on 10/25/18at 16:16; Start 10/25/18 at 16:00; Stop 10/25/18 at 16:01; Status DC Acetaminophen (Tylenol) 650 mg 1X ONCE PO Last administered on 10/25/18at 16:14 ; Start 10/25/18 at 16:00; Stop 10/25/18 at 16:01; Status DC Sodium Chloride 1,000 ml @ 1,000 mls/hr 1X ONCE IV Last administered on at 16:36; Start 10/25/18 at 16:45; Stop 10/25/18 at 17:50; Status DC Ceftriaxone Sodium (Rocephin) 1 gm 1X ONCE IVP ; Start 10/25/18 at 17:00; Stop 10/25/18 at 17:01; Status UNV Azithromycin 250 ml @ 250 mls/hr 1X ONCE IV ; Start 10/25/18 at 17:00; Stop at 17:59; Status Cancel Albuterol/ Ipratropium (Duoneb) 3 ml 1X ONCE NEB Last administered on at 18:00; Start 10/25/18 at 17:00; Stop 10/25/18 at 17:06; Status DC Levofloxacin/ Dextrose 150 ml @ 100 mls/hr 1X ONCE IV Last administered on at 17:58; Start 10/25/18 at 17:15; Stop 10/25/18 at 18:44; Status DC Acetaminophen (Tylenol) 650 mg PRN Q4HRS PRN PO FEVER; Start 10/25/18 at 17:15 ; Stop 10/26/18 at 17:14; Status DC Albuterol/ Ipratropium (Duoneb) 3 ml RTQID NEB Last administered on 10/26/18at 15:14; Start 10/25/18 at 20:00; Stop 10/26/18 at 20:12; Status DC Benzonatate (Tessalon Perle) 100 mg [id number] PO Last administered on 10/27/18at 12 :23; Start 10/25/18 at 21:00 Guaifenesin (Robitussin Dm) 10 ml PRN Q6HRS PRN PO COUGH 1ST CHOICE; Start at 17:30 Diphenhydramine HCl (Benadryl) 25 mg PRN QHS PRN PO INSOMNIA; Start 10/25/18 at 17:30 Ondansetron HCl (Zofran) 4 mg PRN Q6HRS PRN IV NAUSEA/VOMITING; Start 10/25/18 at 17:30 Ondansetron HCl (Zofran Odt) 4 mg PRN Q6HRS PRN PO NAUSEA/VOMITING; Start 10/25 at 17:30 Amitriptyline HCl (Elavil) 20 mg QHS PO Last administered on 10/26/18at 20:50; Start 10/25/18 at 21:00 Aspirin (Ecotrin) 81 mg DAILY07 PO Last administered on 10/27/18at 05:35; Start 10/25/18 at 18:00 Atorvastatin Calcium (Lipitor) 20 mg HS PO Last administered on 10/26/18at 20:50 ; Start 10/25/18 at 21:00 Vitamin D (Vitamin D3) 1,000 unit DAILY PO Last administered on 10/27/18at 09:43 ; Start 10/25/18 at 18:00 Ferrous Sulfate (Feosol) 325 mg DAILY08 PO Last administered on 10/27/18 09:41 ; Start 10/25/18 at 18:00 Gabapentin (Neurontin) 100 mg TID PO Last administered on 10/27/18 12:23; Start 10/25/18 at 21:00 Acetaminophen/ Hydrocodone Bitart (Lortab 10/325) 1 tab PRN Q6HRS PRN PO MODERATE-SEVERE PAIN; Start 10/25/18 at 17:30 Acetaminophen/ Hydrocodone Bitart (Lortab 5/325) 1 tab QID PO Last administered on 10/27/18 12:23; Start 10/25/18 at 21:00 Metoprolol Succinate (Toprol Xl) 12.5 mg DAILY PO Last administered on 09:46; Start 10/25/18 at 18:00 Oxycodone/ Acetaminophen (Percocet 5/325) 1 tab PRN Q6HRS PRN PO PAIN severe 2nd choice; Start 10/25/18 at 17:30 Pantoprazole Sodium (Protonix) 40 mg DAILY07 PO Last administered on 10/27/18 05:30; Start 10/25/18 at 18:00 Potassium Citrate (Urocit-K) 20 meq DAILY08 PO Last administered on 10/27/18 09:43; Start 10/25/18 at 18:00 Non-Formulary Medication (Alendronate Sodium ) 1 tab WEEKLY PO ; Start 11/01/18 at 09:00; Status UNV Levothyroxine Sodium (Synthroid) 50 mcg DAILY06 PO Last administered on 05:30; Start 10/25/18 at 18:00 Non-Formulary Medication (Ondansetron (Zofran Odt)) 8 mg BID PRN PO NAUSEA/ VOMITING; Start 10/25/18 at 17:30; Status UNV Roflumilast (Daliresp) 500 mcg DAILY PO Last administered on 10/27/18 09:43; Start 10/25/18 at 18:00 Ropinirole HCl (Requip) 3 mg QHS PO Last administered on 10/26/18 20:50; Start 10/25/18 at 21:00 Torsemide (Demadex) 20 mg DAILY PO Last administered on 10/27/18 09:41; Start 10/25/18 at 18:00 Albuterol Sulfate (Ventolin Neb Soln) 2.5 mg PRN Q4HRS PRN NEB SHORTNESS OF BREATH; Start 10/25/18 at 18:15 Methylprednisolone Sodium Succinate (SOLU-Medrol 40MG VIAL) 60 mg Q8HRS IV Last administered on 10/27/18at 12:24; Start 10/25/18 at 22:00 Temazepam (Restoril) 7.5 mg PRN QHS PRN PO INSOMNIA; Start 10/25/18 at 20:00 Levofloxacin/ Dextrose (Levaquin Per Pharmacy) 1 each PRN DAILY PRN MC SEE COMMENTS; Start 10/25/18 at 20:00; Status Cancel Levofloxacin/ Dextrose 50 ml @ 50 mls/hr Q24H IV ; Start 10/26/18 at 17:00; Stop 10/26/18 at 17:00; Status DC Levofloxacin (Levaquin) 500 mg DAILY16 PO Last administered on 10/27/18at 05:30 ; Start 10/26/18 at 16:00 Levofloxacin/ Dextrose (Levaquin Per Pharmacy) 1 each PRN DAILY PRN [facility] SEE COMMENTS; Start 10/26/18 at 08:15 Lactobacillus Rhamnosus (Culturelle) 1 cap BID PO Last administered on at 09:42; Start 10/26/18 at 21:00 Albuterol/ Ipratropium (Duoneb) 3 ml RTQID NEB Last administered on 10/27/18at 15:05; Start 10/26/18 at 20:00 Throat Lozenges (Chloraseptic) 1 spray PRN Q2HR PRN PO SORE THROAT Last administered on 10/27/18at 12:22; Start 10/27/18 at 11:15 Active Scripts Active Prednisone (Prednisone) 10 Mg Tablet 30 Mg PO DAILY Mucinex (Guaifenesin) 600 Mg Tablet.er 600 Mg PO BID Hydrocodone-Apap 10-325 (Hydrocodone Bit/Acetaminophen) 1 Each Tablet 1 Tab PO PRN Q6HRS PRN Doxycycline Hyclate 100 Mg Tablet 100 Mg PO BID 5 Days [place] 5-325 Tablet (Acetaminophen/Hydrocodone Bitart) 1 Each Tablet 1-2 Tab PO Q4-6HRS Reported Percocet 5-325 Mg Tablet (Oxycodone/Acetaminophen) 1 Each Tablet 1 Tab PO PRN Q6HRS PRN Zofran Odt (Ondansetron) 8 Mg Tab.rapdis 8 Mg PO BID PRN Aspir 81 (Aspirin) 81 Mg Tablet.dr 1 Tab PO DAILY Metoprolol Succinate ( Xl ) (Metoprolol Succinate) 25 Mg Tab.er.24h 12.5 Mg PO DAILY Vitamin D3 (Cholecalciferol (Vitamin D3)) 1,000 Unit Tablet 1 Tab PO DAILY Torsemide 20 Mg Tablet 1 Tab PO DAILY Gabapentin (Gabapentin) 100 Mg Capsule 100 Mg PO TID Ferrous Sulfate 325 Mg Tablet 1 Tab PO DAILY Daliresp (Roflumilast) 500 Mcg Tablet 1 Tab PO DAILY Atorvastatin Calcium 20 Mg Tablet 20 Mg PO HS Amitriptyline Hcl 10 Mg Tablet 1-2 Tab PO QHS Alendronate Sodium 70 Mg Tablet 1 Tab PO WEEKLY Requip (Ropinirole Hcl) 1 Mg Tablet 3 Tab PO QHS Proair Hfa Inhaler (Albuterol Sulfate) 8.5 Gm Hfa.aer.ad 1 Puff INH PRN Q6HRS PRN Potassium Citrate 10 Meq Tablet.er 20 Meq PO DAILY Protonix (Pantoprazole Sodium) 40 Mg Tablet.dr 1 Tab PO DAILY Lidocaine 1 Each Adh..patch 1 Each TP Levothyroxine Sodium 50 Mcg Tablet 1 Tab PO DAILY Vitals/I & O Vital Sign - Last 24 Hours 10/26/18 10/26/18 10/26/18 10/26/18 16:38 19:00 19:44 20:00 Temp 97.4 97.4 Pulse 83 Resp 20 B/P (MAP) 110/55 (73) Pulse Ox 97 O2 Delivery Nasal Cannula Nasal Cannula Nasal Cannula Nasal Cannula O2 Flow Rate 3.0 3.0 3.0 10/26/18 10/26/18 10/26/18 10/27/18 20:51 21:51 23:00 03:11 Temp 97.9 98.1 97.9 98.1 Pulse 90 91 Resp 18 20 20 B/P (MAP) 124/50 (74) 126/63 (84) Pulse Ox 97 97 97 100 O2 Delivery Nasal Cannula Room Air Nasal Cannula O2 Flow Rate 3.0 10/27/18 10/27/18 10/27/18 10/27/18 07:00 07:26 08:00 09:00 Temp 98.3 98.3 Pulse 90 90 Resp 17 B/P (MAP) 86/43 (57) 86/43 Pulse Ox 100 100 O2 Delivery Nasal Cannula Nasal Cannula Nasal Cannula O2 Flow Rate 3.0 3.0 10/27/18 10/27/18 10/27/18 10/27/18 09:42 10:42 11:00 12:23 Temp 97.8 97.8 Pulse 96 Resp 16 17 18 B/P (MAP) 87/34 (51) Pulse Ox 99 O2 Delivery Nasal Cannula Nasal Cannula Nasal Cannula Nasal Cannula O2 Flow Rate 3.0 3.0 3.0 10/27/18 10/27/18 10/27/18 13:23 15:00 15:06 Temp 97.8 97.8 Pulse 96 Resp 18 17 B/P (MAP) 89/45 (60) Pulse Ox 94 O2 Delivery Nasal Cannula Nasal Cannula O2 Flow Rate 2.0 Intake and Output 10/26/18 10/26/18 10/27/18 15:01 23:01 07:01 Intake Total 380 ml 360 ml Output Total 300 ml Balance 380 ml 360 ml -300 ml DEMETRA BABIN MD Oct 27, 2018 16:11
[2018-10-27 19:00] VITALS: BP 103/46
[2018-10-27] MEDS: AMITRIPTYLINE HCL 10 MG TABLET. PO SCH (21:25)
[2018-10-27] MEDS: rOPINIRole 1 MG TABLET. PO SCH (21:25)
[2018-10-27] MEDS: ATORVASTATIN CALCIUM 20 MG TABLET PO SCH (21:25)
[2018-10-27 23:00] VITALS: BP 116/47
[2018-10-28 03:00] VITALS: BP 101/44
[2018-10-28] MEDS: ASPIRIN ENTERIC COATED 81 MG TABLET.DR. PO SCH (04:54)
[2018-10-28] MEDS: LEVOTHYROXINE 50 MCG TABLET PO SCH (04:54)
[2018-10-28] MEDS: PANTOPRAZOLE 40 MG TABLET.DR. PO SCH (04:54)
[2018-10-28] MEDS: methylPREDNISolone SOD SUCC PF 40 MG/ML VIAL. IV SCH ×3 (04:55→22:09)
[2018-10-28 07:00] VITALS: BP 94/41
[2018-10-28] MEDS: IPRATRPIUM/ALBUTEROL 0.5/2.5MG 3 ML NEBU. NEB SCH ×4 (07:52→19:35)
[2018-10-28] MEDS: FERROUS SULFATE 325 MG TABLET. PO SCH (08:47)
[2018-10-28] MEDS: TORSEMIDE 20 MG TABLET. PO SCH (08:47)
[2018-10-28] MEDS: CHOLECALCIFEROL (VITAMIN D3) 1,000 UNIT TABLET PO SCH (08:47)
[2018-10-28] MEDS: HYDROcodone/APAP 5/325MG 1 TAB TABLET PO SCH ×4 (08:47→20:21)
[2018-10-28] MEDS: GABAPENTIN 100 MG CAPSULE. PO SCH ×3 (08:47→20:21)
[2018-10-28] MEDS: BENZONATATE 100 MG CAPSULE. PO SCH ×3 (08:47→20:21)
[2018-10-28] MEDS: LACTOBACILLUS RHAMNOSUS GG 1 CAPSULE. PO SCH (08:48)
[2018-10-28] MEDS: POTASSIUM CITRATE 10 MEQ TABLET.ER PO SCH (08:48)
[2018-10-28] MEDS: ROFLUMILAST 500 MCG TABLET. PO SCH (08:49)
--- NOTE | 2018-10-28 08:53 | PDOC ---
PULMONARY PROGRESS NOTES Subjective on home 02 2 lpm, has sob, cough, no sputum, has nasal congestion Vitals Vital Signs Date Time Temp Pulse Resp B/P (MAP) Pulse Ox O2 Delivery O2 Flow Rate FiO2 10/28/18 08:47 18 99 Nasal Cannula 2.0 10/28/18 07:00 98.1 89 94/41 (58) 98.1 ROS: No Nausea General: Alert, No acute distress Lungs: Wheezing, Other (few rhonchi) Cardiovascular: S1, S2 Abdomen: Soft, Non-tender Neuro Exam: Alert Extremities: No Edema Skin: Warm Labs Laboratory Tests Test 10/26/18 18:00 10/27/18 09:25 Urine Collection Type Unknown Urine Color Yellow Urine Clarity Clear Urine pH 6.0 Urine Specific [place] 1.010 Urine Protein Negative mg/dL (NEG-TRACE) Urine Glucose (UA) Negative mg/dL (NEG) Urine Ketones (Stick) Negative mg/dL (NEG) Urine Blood Negative (NEG) Urine Nitrite Negative (NEG) Urine Bilirubin Negative (NEG) Urine Urobilinogen Dipstick 0.2 mg/dL (0.2 mg/dL) Urine Leukocyte Esterase Negative (NEG) Urine RBC 0 /HPF (0-2) Urine WBC Rare /HPF (0-4) Urine Squamous Epithelial Cells Few /LPF Urine Bacteria 0 /HPF (0-FEW) Urine Hyaline Casts Few /HPF Urine Mucus Slight /LPF White Blood Count 5.8 x10^3/uL (4.0-11.0) Red Blood Count 3.61 x10^6/uL (3.50-5.40) Hemoglobin 11.5 g/dL (12.0-15.5) Hematocrit 34.1 % (36.0-47.0) Mean Corpuscular Volume 95 fL (79-100) Mean Corpuscular Hemoglobin 32 pg (25-35) Mean Corpuscular Hemoglobin Concent 34 g/dL (31-37) Red Cell Distribution Width 13.7 % (11.5-14.5) Platelet Count 180 x10^3/uL (140-400) Neutrophils (%) (Auto) 92 % (31-73) Lymphocytes (%) (Auto) 5 % (24-48) Monocytes (%) (Auto) 3 % (0-9) Eosinophils (%) (Auto) 0 % (0-3) Basophils (%) (Auto) 0 % (0-3) Neutrophils # (Auto) 5.4 x10^3uL (1.8-7.7) Lymphocytes # (Auto) 0.3 x10^3/uL (1.0-4.8) Monocytes # (Auto) 0.1 x10^3/uL (0.0-1.1) Eosinophils # (Auto) 0.0 x10^3/uL (0.0-0.7) Basophils # (Auto) 0.0 x10^3/uL (0.0-0.2) Laboratory Tests Test 10/27/18 09:25 White Blood Count 5.8 x10^3/uL (4.0-11.0) Red Blood Count 3.61 x10^6/uL (3.50-5.40) Hemoglobin 11.5 g/dL (12.0-15.5) Hematocrit 34.1 % (36.0-47.0) Mean Corpuscular Volume 95 fL (79-100) Mean Corpuscular Hemoglobin 32 pg (25-35) Mean Corpuscular Hemoglobin Concent 34 g/dL (31-37) Red Cell Distribution Width 13.7 % (11.5-14.5) Platelet Count 180 x10^3/uL (140-400) Neutrophils (%) (Auto) 92 % (31-73) Lymphocytes (%) (Auto) 5 % (24-48) Monocytes (%) (Auto) 3 % (0-9) Eosinophils (%) (Auto) 0 % (0-3) Basophils (%) (Auto) 0 % (0-3) Neutrophils # (Auto) 5.4 x10^3uL (1.8-7.7) Lymphocytes # (Auto) 0.3 x10^3/uL (1.0-4.8) Monocytes # (Auto) 0.1 x10^3/uL (0.0-1.1) Eosinophils # (Auto) 0.0 x10^3/uL (0.0-0.7) Basophils # (Auto) 0.0 x10^3/uL (0.0-0.2) Medications Active Scripts Medications Dose Route/Sig Max Daily Dose Days Date Category Prednisone (Prednisone) 10 Mg Tablet 30 Mg PO DAILY 08/13/18 Rx Mucinex (Guaifenesin) 600 Mg Tablet.er 600 Mg PO BID 08/13/18 Rx Hydrocodone-Apap 10-325 (Hydrocodone Bit/Acetaminophen) 1 Each Tablet 1 Tab PO PRN Q6HRS PRN 08/13/18 Rx Doxycycline Hyclate 100 Mg Tablet 100 Mg PO BID 5 08/13/18 Rx Percocet 5-325 Mg Tablet (Oxycodone/Acetaminophen) 1 Each Tablet 1 Tab PO PRN Q6HRS PRN 08/09/18 Reported Zofran Odt (Ondansetron) 8 Mg Tab.rapdis 8 Mg PO BID PRN 08/09/18 Reported [place] 5-325 Tablet (Acetaminophen/Hydrocodone Bitart) 1 Each Tablet 1-2 Tab PO Q4-6HRS 06/24/18 Rx Aspir 81 (Aspirin) 81 Mg Tablet.dr 1 Tab PO DAILY 01/03/18 Reported Metoprolol Succinate ( Xl ) (Metoprolol Succinate) 25 Mg Tab.er.24h 12.5 Mg PO DAILY 01/03/18 Reported Vitamin D3 (Cholecalciferol (Vitamin D3)) 1,000 Unit Tablet 1 Tab PO DAILY 01/02/18 Reported Torsemide 20 Mg Tablet 1 Tab PO DAILY 01/02/18 Reported Gabapentin (Gabapentin) 100 Mg Capsule 100 Mg PO TID 01/02/18 Reported Ferrous Sulfate 325 Mg Tablet 1 Tab PO DAILY 09/23/17 Reported Daliresp (Roflumilast) 500 Mcg Tablet 1 Tab PO DAILY 09/23/17 Reported Atorvastatin Calcium 20 Mg Tablet 20 Mg PO HS 09/23/17 Reported Amitriptyline Hcl 10 Mg Tablet 1-2 Tab PO QHS 09/23/17 Reported Alendronate Sodium 70 Mg Tablet 1 Tab PO WEEKLY 09/23/17 Reported Requip (Ropinirole Hcl) 1 Mg Tablet 3 Tab PO QHS 09/23/17 Reported Proair Hfa Inhaler (Albuterol Sulfate) 8.5 Gm Hfa.aer.ad 1 Puff INH PRN Q6HRS PRN 09/23/17 Reported Potassium Citrate 10 Meq Tablet.er 20 Meq PO DAILY 09/23/17 Reported Protonix (Pantoprazole Sodium) 40 Mg Tablet.dr 1 Tab PO DAILY 09/23/17 Reported Lidocaine 1 Each Adh..patch 1 Each TP 09/23/17 Reported Levothyroxine Sodium 50 Mcg Tablet 1 Tab PO DAILY 09/23/17 Reported Impression . 1. Acute on chronic hypoxic respiratory failure secondary to acute exacerbation of chronic obstructive pulmonary disease and suspected interstitial pneumonia. 2. 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 Leukopenia could be related to viral infection. 3. Abnormal chest x-ray with prominent interstitial markings. This was a same pattern seen in the last year film as well. CT chest reviewed. There is no evidence of interstitial pneumonia or interstitial lung disease. 4. allergic rhinitis Plan . 1. Continue with present oxygen. 2. Continue with antibiotics. 3. Monitor for fevers. 4. steroids, no dose change, still has sob, cough, wheezing. 5. CT chest reviewed. 6. Normal EF by last echocardiogram. 7. Continue bronchodilators. 8. Continue diuretics. monitor k, cr 9. Smoking cessation counseling provided to the patient. 10. add flonase The patient to follow at post-discharge. discussed w pt KING CHUNG MD Oct 28, 2018 08:53
[2018-10-28] MEDS: METOPROLOL SUCC 24HR ER 25 MG TAB.ER.24H. PO SCH (09:00)
--- NOTE | 2018-10-28 09:53 | PDOC ---
PROGRESS NOTES Chief Complaint Chief Complaint Severe acute exacerbation of COPD sepsis known Immune deficiency, NOS, got IgG infusion at home 10/25, per [facility] vasomotor nephropathy, in the background of diuretic use- HTN-chronic stable Hypothyroidism on replacement Dyslipidemia on statin malnutrition, POA, serum alb 2.8 History of Present Illness History of Present Illness still weak, marked dyspnea with any exertion less cough, creatinine improved Vitals Vitals Vital Signs Date Time Temp Pulse Resp B/P (MAP) Pulse Ox O2 Delivery O2 Flow Rate FiO2 10/28/18 09:00 89 94/41 10/28/18 08:47 18 99 Nasal Cannula 2.0 10/28/18 07:00 98.1 98.1 Physical Exam General: Alert, Oriented X3 Heart: Normal S1, Normal S2 Lungs: Wheezing, Other (few rhonchi) Abdomen: Normal bowel sounds, Soft, No tenderness, No hepatosplenomegaly, No masses Extremities: No clubbing, No cyanosis, No edema, Normal pulses, No tenderness/ swelling Skin: No rashes, No breakdown, No significant lesion Assessment and Plan Assessmemt and Plan Problems Medical Problems: (1) Bandemia Status: Acute (2) COPD exacerbation Status: Acute Comment Review of Relevant I have reviewed the following items jon (where applicable) has been applied. Labs Laboratory Tests Test 10/26/18 18:00 10/27/18 09:25 Urine Collection Type Unknown Urine Color Yellow Urine Clarity Clear Urine pH 6.0 Urine Specific [place] 1.010 Urine Protein Negative mg/dL (NEG-TRACE) Urine Glucose (UA) Negative mg/dL (NEG) Urine Ketones (Stick) Negative mg/dL (NEG) Urine Blood Negative (NEG) Urine Nitrite Negative (NEG) Urine Bilirubin Negative (NEG) Urine Urobilinogen Dipstick 0.2 mg/dL (0.2 mg/dL) Urine Leukocyte Esterase Negative (NEG) Urine RBC 0 /HPF (0-2) Urine WBC Rare /HPF (0-4) Urine Squamous Epithelial Cells Few /LPF Urine Bacteria 0 /HPF (0-FEW) Urine Hyaline Casts Few /HPF Urine Mucus Slight /LPF White Blood Count 5.8 x10^3/uL (4.0-11.0) Red Blood Count 3.61 x10^6/uL (3.50-5.40) Hemoglobin 11.5 g/dL (12.0-15.5) Hematocrit 34.1 % (36.0-47.0) Mean Corpuscular Volume 95 fL (79-100) Mean Corpuscular Hemoglobin 32 pg (25-35) Mean Corpuscular Hemoglobin Concent 34 g/dL (31-37) Red Cell Distribution Width 13.7 % (11.5-14.5) Platelet Count 180 x10^3/uL (140-400) Neutrophils (%) (Auto) 92 % (31-73) Lymphocytes (%) (Auto) 5 % (24-48) Monocytes (%) (Auto) 3 % (0-9) Eosinophils (%) (Auto) 0 % (0-3) Basophils (%) (Auto) 0 % (0-3) Neutrophils # (Auto) 5.4 x10^3uL (1.8-7.7) Lymphocytes # (Auto) 0.3 x10^3/uL (1.0-4.8) Monocytes # (Auto) 0.1 x10^3/uL (0.0-1.1) Eosinophils # (Auto) 0.0 x10^3/uL (0.0-0.7) Basophils # (Auto) 0.0 x10^3/uL (0.0-0.2) Microbiology 10/25/18 Blood Culture - Preliminary, Resulted NO GROWTH AFTER 2 DAYS Medications Current Medications Albuterol/ Ipratropium (Duoneb) 3 ml 1X ONCE NEB Last administered on at 16:13; Start 10/25/18 at 16:00; Stop 10/25/18 at 16:01; Status DC Methylprednisolone Sodium Succinate (SOLU-Medrol 125MG VIAL) 125 mg 1X ONCE IV Last administered on 10/25/18at 16:16; Start 10/25/18 at 16:00; Stop 10/25/18 at 16:01; Status DC Acetaminophen (Tylenol) 650 mg 1X ONCE PO Last administered on 10/25/18at 16:14 ; Start 10/25/18 at 16:00; Stop 10/25/18 at 16:01; Status DC Sodium Chloride 1,000 ml @ 1,000 mls/hr 1X ONCE IV Last administered on at 16:36; Start 10/25/18 at 16:45; Stop 10/25/18 at 17:50; Status DC Ceftriaxone Sodium (Rocephin) 1 gm 1X ONCE IVP ; Start 10/25/18 at 17:00; Stop 10/25/18 at 17:01; Status UNV Azithromycin 250 ml @ 250 mls/hr 1X ONCE IV ; Start 10/25/18 at 17:00; Stop at 17:59; Status Cancel Albuterol/ Ipratropium (Duoneb) 3 ml 1X ONCE NEB Last administered on at 18:00; Start 10/25/18 at 17:00; Stop 10/25/18 at 17:06; Status DC Levofloxacin/ Dextrose 150 ml @ 100 mls/hr 1X ONCE IV Last administered on at 17:58; Start 10/25/18 at 17:15; Stop 10/25/18 at 18:44; Status DC Acetaminophen (Tylenol) 650 mg PRN Q4HRS PRN PO FEVER; Start 10/25/18 at 17:15 ; Stop 10/26/18 at 17:14; Status DC Albuterol/ Ipratropium (Duoneb) 3 ml RTQID NEB Last administered on 10/26/18at 15:14; Start 10/25/18 at 20:00; Stop 10/26/18 at 20:12; Status DC Benzonatate (Tessalon Perle) 100 mg [id number] PO Last administered on 10/28/18at 08 :47; Start 10/25/18 at 21:00 Guaifenesin (Robitussin Dm) 10 ml PRN Q6HRS PRN PO COUGH 1ST CHOICE Last administered on 10/27/18at 21:26; Start 10/25/18 at 17:30 Diphenhydramine HCl (Benadryl) 25 mg PRN QHS PRN PO INSOMNIA; Start 10/25/18 at 17:30 Ondansetron HCl (Zofran) 4 mg PRN Q6HRS PRN IV NAUSEA/VOMITING; Start 10/25/18 at 17:30 Ondansetron HCl (Zofran Odt) 4 mg PRN Q6HRS PRN PO NAUSEA/VOMITING; Start 10/25 at 17:30 Amitriptyline HCl (Elavil) 20 mg QHS PO Last administered on 10/27/18 21:25; Start 10/25/18 at 21:00 Aspirin (Ecotrin) 81 mg DAILY07 PO Last administered on 10/28/18 04:54; Start 10/25/18 at 18:00 Atorvastatin Calcium (Lipitor) 20 mg HS PO Last administered on 10/27/18 21:25 ; Start 10/25/18 at 21:00 Vitamin D (Vitamin D3) 1,000 unit DAILY PO Last administered on 10/28/18 08:47 ; Start 10/25/18 at 18:00 Ferrous Sulfate (Feosol) 325 mg DAILY08 PO Last administered on 10/28/18 08:47 ; Start 10/25/18 at 18:00 Gabapentin (Neurontin) 100 mg TID PO Last administered on 10/28/18 08:47; Start 10/25/18 at 21:00 Acetaminophen/ Hydrocodone Bitart (Lortab 10/325) 1 tab PRN Q6HRS PRN PO MODERATE-SEVERE PAIN; Start 10/25/18 at 17:30 Acetaminophen/ Hydrocodone Bitart (Lortab 5/325) 1 tab QID PO Last administered on 10/28/18 08:47; Start 10/25/18 at 21:00 Metoprolol Succinate (Toprol Xl) 12.5 mg DAILY PO Last administered on 09:46; Start 10/25/18 at 18:00 Oxycodone/ Acetaminophen (Percocet 5/325) 1 tab PRN Q6HRS PRN PO PAIN severe 2nd choice Last administered on 10/28/18 04:54; Start 10/25/18 at 17:30 Pantoprazole Sodium (Protonix) 40 mg DAILY07 PO Last administered on 10/28/18 04:54; Start 10/25/18 at 18:00 Potassium Citrate (Urocit-K) 20 meq DAILY08 PO Last administered on 10/28/18 08:48; Start 10/25/18 at 18:00 Non-Formulary Medication (Alendronate Sodium ) 1 tab WEEKLY PO ; Start 11/01/18 at 09:00; Status UNV Levothyroxine Sodium (Synthroid) 50 mcg DAILY06 PO Last administered on 04:54; Start 10/25/18 at 18:00 Non-Formulary Medication (Ondansetron (Zofran Odt)) 8 mg BID PRN PO NAUSEA/ VOMITING; Start 10/25/18 at 17:30; Status UNV Roflumilast (Daliresp) 500 mcg DAILY PO Last administered on 10/28/18at 08:49; Start 10/25/18 at 18:00 Ropinirole HCl (Requip) 3 mg QHS PO Last administered on 10/27/18at 21:25; Start 10/25/18 at 21:00 Torsemide (Demadex) 20 mg DAILY PO Last administered on 10/28/18at 08:47; Start 10/25/18 at 18:00 Albuterol Sulfate (Ventolin Neb Soln) 2.5 mg PRN Q4HRS PRN NEB SHORTNESS OF BREATH; Start 10/25/18 at 18:15 Methylprednisolone Sodium Succinate (SOLU-Medrol 40MG VIAL) 60 mg Q8HRS IV Last administered on 10/28/18at 04:55; Start 10/25/18 at 22:00 Temazepam (Restoril) 7.5 mg PRN QHS PRN PO INSOMNIA; Start 10/25/18 at 20:00 Levofloxacin/ Dextrose (Levaquin Per Pharmacy) 1 each PRN DAILY PRN [facility] SEE COMMENTS; Start 10/25/18 at 20:00; Status Cancel Levofloxacin/ Dextrose 50 ml @ 50 mls/hr Q24H IV ; Start 10/26/18 at 17:00; Stop 10/26/18 at 17:00; Status DC Levofloxacin (Levaquin) 500 mg DAILY16 PO Last administered on 10/27/18at 05:30 ; Start 10/26/18 at 16:00 Levofloxacin/ Dextrose (Levaquin Per Pharmacy) 1 each PRN DAILY PRN [facility] SEE COMMENTS; Start 10/26/18 at 08:15 Lactobacillus Rhamnosus (Culturelle) 1 cap BID PO Last administered on at 08:48; Start 10/26/18 at 21:00 Albuterol/ Ipratropium (Duoneb) 3 ml RTQID NEB Last administered on 10/28/18at 07:52; Start 10/26/18 at 20:00 Throat Lozenges (Chloraseptic) 1 spray PRN Q2HR PRN PO SORE THROAT Last administered on 10/27/18at 16:43; Start 10/27/18 at 11:15 Fluticasone Propionate (Flonase) 2 spray DAILY NS ; Start 10/28/18 at 09:00 Active Scripts Active Prednisone (Prednisone) 10 Mg Tablet 30 Mg PO DAILY Mucinex (Guaifenesin) 600 Mg Tablet.er 600 Mg PO BID Hydrocodone-Apap 10-325 (Hydrocodone Bit/Acetaminophen) 1 Each Tablet 1 Tab PO PRN Q6HRS PRN Doxycycline Hyclate 100 Mg Tablet 100 Mg PO BID 5 Days [place] 5-325 Tablet (Acetaminophen/Hydrocodone Bitart) 1 Each Tablet 1-2 Tab PO Q4-6HRS Reported Percocet 5-325 Mg Tablet (Oxycodone/Acetaminophen) 1 Each Tablet 1 Tab PO PRN Q6HRS PRN Zofran Odt (Ondansetron) 8 Mg Tab.rapdis 8 Mg PO BID PRN Aspir 81 (Aspirin) 81 Mg Tablet. 1 Tab PO DAILY Metoprolol Succinate ( Xl ) (Metoprolol Succinate) 25 Mg Tab.er.24h 12.5 Mg PO DAILY Vitamin D3 (Cholecalciferol (Vitamin D3)) 1,000 Unit Tablet 1 Tab PO DAILY Torsemide 20 Mg Tablet 1 Tab PO DAILY Gabapentin (Gabapentin) 100 Mg Capsule 100 Mg PO TID Ferrous Sulfate 325 Mg Tablet 1 Tab PO DAILY Daliresp (Roflumilast) 500 Mcg Tablet 1 Tab PO DAILY Atorvastatin Calcium 20 Mg Tablet 20 Mg PO HS Amitriptyline Hcl 10 Mg Tablet 1-2 Tab PO QHS Alendronate Sodium 70 Mg Tablet 1 Tab PO WEEKLY Requip (Ropinirole Hcl) 1 Mg Tablet 3 Tab PO QHS Proair Hfa Inhaler (Albuterol Sulfate) 8.5 Gm Hfa.aer.ad 1 Puff INH PRN Q6HRS PRN Potassium Citrate 10 Meq Tablet.er 20 Meq PO DAILY Protonix (Pantoprazole Sodium) 40 Mg Tablet. 1 Tab PO DAILY Lidocaine 1 Each Adh..patch 1 Each TP Levothyroxine Sodium 50 Mcg Tablet 1 Tab PO DAILY Vitals/I & O Vital Sign - Last 24 Hours 10/27/18 10/27/18 10/27/18 10/27/18 11:00 12:23 15:00 15:06 Temp 97.8 97.8 97.8 97.8 Pulse 96 96 Resp 17 18 17 B/P (MAP) 87/34 (51) 89/45 (60) Pulse Ox 99 94 O2 Delivery Nasal Cannula Nasal Cannula Nasal Cannula Nasal Cannula O2 Flow Rate 3.0 2.0 10/27/18 10/27/18 10/27/18 10/27/18 16:43 19:00 20:00 21:14 Temp 98.4 98.4 Pulse 85 Resp 18 18 B/P (MAP) 103/46 (65) Pulse Ox 94 96 O2 Delivery Nasal Cannula Nasal Cannula Nasal Cannula Nasal Cannula O2 Flow Rate 2.0 2.0 3.0 2.0 10/27/18 10/27/18 10/27/18 10/28/18 21:25 22:25 23:00 03:00 Temp 98.6 98.5 98.6 98.5 Pulse 103 89 Resp 18 18 16 18 B/P (MAP) 116/47 (70) 101/44 (63) Pulse Ox 96 96 95 98 O2 Delivery Nasal Cannula Nasal Cannula Nasal Cannula Nasal Cannula O2 Flow Rate 2.0 2.0 2.0 2.0 10/28/18 10/28/18 10/28/18 10/28/18 04:54 05:54 07:00 07:54 Temp 98.1 98.1 Pulse 89 Resp 18 18 18 B/P (MAP) 94/41 (58) Pulse Ox 98 98 100 99 O2 Delivery Nasal Cannula Nasal Cannula Nasal Cannula Nasal Cannula O2 Flow Rate 2.0 2.0 2.0 2.0 10/28/18 10/28/18 10/28/18 08:00 08:47 09:00 Pulse 89 Resp 18 B/P (MAP) 94/41 Pulse Ox 99 O2 Delivery Nasal Cannula Nasal Cannula O2 Flow Rate 2.0 2.0 Intake and Output 10/27/18 10/27/18 10/28/18 15:01 23:01 07:01 Intake Total 480 ml 420 ml Output Total 0 ml Balance 480 ml 420 ml 0 ml DEMETRA BABIN MD Oct 28, 2018 09:53
[2018-10-28] MEDS ORDERED: BENZOCAINE/MENTHOL LOZENGE. PO PRN (10:00)
[2018-10-28] MEDS ORDERED: guaiFENesin DM 200MG/20MG 10 ML SYRUP PO PRN (10:00)
[2018-10-28 11:00] VITALS: BP 107/60
[2018-10-28] MEDS: FLUTICASONE 50MCG/NASAL SPRAY 16GM BOTTLE. NS SCH (11:24)
--- NOTE | 2018-10-28 12:49 | PDOC ---
PROGRESS NOTES Subjective Subjective HPI - f/u of Acute neutropenia ROS - had dyspnea, better Objective Objective Vital Signs Date Time Temp Pulse Resp B/P (MAP) Pulse Ox O2 Delivery O2 Flow Rate FiO2 10/28/18 11:16 99 Nasal Cannula 2.0 10/28/18 11:00 98.7 92 18 107/60 (76) 98.7 Intake and Output 10/28/18 07:01 Intake Total 900 ml Output Total 0 ml Balance 900 ml Intake Oral 900 ml Output Urine Total 0 ml # Voids 5 Physical Exam Heart: Normal S1, Normal S2 Lungs: Normal air movement Neuro: Normal speech Psych/Mental Status: Mental status NL Assessment Assessment Problems Medical Problems: (1) Bandemia Status: Acute (2) COPD exacerbation Status: Acute IMPRESSION AND PLAN: 1. Acute neutropenia with a WBC count of 1.8 on 10/26/2018, is consistent with reactive change due to underlying infection. She has evidence of 15% bands. She is admitted for chronic obstructive pulmonary disease exacerbation and she has been started on IV antibiotics. WBC improved 5.8 on 10/27/18. 2. Chronic obstructive pulmonary disease exacerbation. Appreciate pulmonary consultation and management. Comment Review of Relevant I have reviewed the following items jon (where applicable) has been applied. Labs Laboratory Tests Test 10/26/18 18:00 10/27/18 09:25 Urine Collection Type Unknown Urine Color Yellow Urine Clarity Clear Urine pH 6.0 Urine Specific [place] 1.010 Urine Protein Negative mg/dL (NEG-TRACE) Urine Glucose (UA) Negative mg/dL (NEG) Urine Ketones (Stick) Negative mg/dL (NEG) Urine Blood Negative (NEG) Urine Nitrite Negative (NEG) Urine Bilirubin Negative (NEG) Urine Urobilinogen Dipstick 0.2 mg/dL (0.2 mg/dL) Urine Leukocyte Esterase Negative (NEG) Urine RBC 0 /HPF (0-2) Urine WBC Rare /HPF (0-4) Urine Squamous Epithelial Cells Few /LPF Urine Bacteria 0 /HPF (0-FEW) Urine Hyaline Casts Few /HPF Urine Mucus Slight /LPF White Blood Count 5.8 x10^3/uL (4.0-11.0) Red Blood Count 3.61 x10^6/uL (3.50-5.40) Hemoglobin 11.5 g/dL (12.0-15.5) Hematocrit 34.1 % (36.0-47.0) Mean Corpuscular Volume 95 fL (79-100) Mean Corpuscular Hemoglobin 32 pg (25-35) Mean Corpuscular Hemoglobin Concent 34 g/dL (31-37) Red Cell Distribution Width 13.7 % (11.5-14.5) Platelet Count 180 x10^3/uL (140-400) Neutrophils (%) (Auto) 92 % (31-73) Lymphocytes (%) (Auto) 5 % (24-48) Monocytes (%) (Auto) 3 % (0-9) Eosinophils (%) (Auto) 0 % (0-3) Basophils (%) (Auto) 0 % (0-3) Neutrophils # (Auto) 5.4 x10^3uL (1.8-7.7) Lymphocytes # (Auto) 0.3 x10^3/uL (1.0-4.8) Monocytes # (Auto) 0.1 x10^3/uL (0.0-1.1) Eosinophils # (Auto) 0.0 x10^3/uL (0.0-0.7) Basophils # (Auto) 0.0 x10^3/uL (0.0-0.2) Microbiology 10/25/18 Blood Culture - Preliminary, Resulted NO GROWTH AFTER 2 DAYS Medications Current Medications Albuterol/ Ipratropium (Duoneb) 3 ml 1X ONCE NEB Last administered on at 16:13; Start 10/25/18 at 16:00; Stop 10/25/18 at 16:01; Status DC Methylprednisolone Sodium Succinate (SOLU-Medrol 125MG VIAL) 125 mg 1X ONCE IV Last administered on 10/25/18at 16:16; Start 10/25/18 at 16:00; Stop 10/25/18 at 16:01; Status DC Acetaminophen (Tylenol) 650 mg 1X ONCE PO Last administered on 10/25/18at 16:14 ; Start 10/25/18 at 16:00; Stop 10/25/18 at 16:01; Status DC Sodium Chloride 1,000 ml @ 1,000 mls/hr 1X ONCE IV Last administered on at 16:36; Start 10/25/18 at 16:45; Stop 10/25/18 at 17:50; Status DC Ceftriaxone Sodium (Rocephin) 1 gm 1X ONCE IVP ; Start 10/25/18 at 17:00; Stop 10/25/18 at 17:01; Status UNV Azithromycin 250 ml @ 250 mls/hr 1X ONCE IV ; Start 10/25/18 at 17:00; Stop at 17:59; Status Cancel Albuterol/ Ipratropium (Duoneb) 3 ml 1X ONCE NEB Last administered on at 18:00; Start 10/25/18 at 17:00; Stop 10/25/18 at 17:06; Status DC Levofloxacin/ Dextrose 150 ml @ 100 mls/hr 1X ONCE IV Last administered on at 17:58; Start 10/25/18 at 17:15; Stop 10/25/18 at 18:44; Status DC Acetaminophen (Tylenol) 650 mg PRN Q4HRS PRN PO FEVER; Start 10/25/18 at 17:15 ; Stop 10/26/18 at 17:14; Status DC Albuterol/ Ipratropium (Duoneb) 3 ml RTQID NEB Last administered on 10/26/18at 15:14; Start 10/25/18 at 20:00; Stop 10/26/18 at 20:12; Status DC Benzonatate (Tessalon Perle) 100 mg [id number] PO Last administered on 10/28/18at 08 :47; Start 10/25/18 at 21:00 Guaifenesin (Robitussin Dm) 10 ml PRN Q6HRS PRN PO COUGH 1ST CHOICE Last administered on 10/27/18at 21:26; Start 10/25/18 at 17:30; Stop 10/28/18 at 09:54 ; Status DC Diphenhydramine HCl (Benadryl) 25 mg PRN QHS PRN PO INSOMNIA; Start 10/25/18 at 17:30 Ondansetron HCl (Zofran) 4 mg PRN Q6HRS PRN IV NAUSEA/VOMITING; Start 10/25/18 at 17:30 Ondansetron HCl (Zofran Odt) 4 mg PRN Q6HRS PRN PO NAUSEA/VOMITING; Start 10/25 at 17:30 Amitriptyline HCl (Elavil) 20 mg QHS PO Last administered on 10/27/18 21:25; Start 10/25/18 at 21:00 Aspirin (Ecotrin) 81 mg DAILY07 PO Last administered on 10/28/18 04:54; Start 10/25/18 at 18:00 Atorvastatin Calcium (Lipitor) 20 mg HS PO Last administered on 10/27/18 21:25 ; Start 10/25/18 at 21:00 Vitamin D (Vitamin D3) 1,000 unit DAILY PO Last administered on 10/28/18 08:47 ; Start 10/25/18 at 18:00 Ferrous Sulfate (Feosol) 325 mg DAILY08 PO Last administered on 10/28/18 08:47 ; Start 10/25/18 at 18:00 Gabapentin (Neurontin) 100 mg TID PO Last administered on 10/28/18 08:47; Start 10/25/18 at 21:00 Acetaminophen/ Hydrocodone Bitart (Lortab 10/325) 1 tab PRN Q6HRS PRN PO MODERATE-SEVERE PAIN; Start 10/25/18 at 17:30 Acetaminophen/ Hydrocodone Bitart (Lortab 5/325) 1 tab QID PO Last administered on 10/28/18 08:47; Start 10/25/18 at 21:00 Metoprolol Succinate (Toprol Xl) 12.5 mg DAILY PO Last administered on 09:46; Start 10/25/18 at 18:00 Oxycodone/ Acetaminophen (Percocet 5/325) 1 tab PRN Q6HRS PRN PO PAIN severe 2nd choice Last administered on 10/28/18 04:54; Start 10/25/18 at 17:30 Pantoprazole Sodium (Protonix) 40 mg DAILY07 PO Last administered on 10/28/18 04:54; Start 10/25/18 at 18:00 Potassium Citrate (Urocit-K) 20 meq DAILY08 PO Last administered on 10/28/18 08:48; Start 10/25/18 at 18:00 Non-Formulary Medication (Alendronate Sodium ) 1 tab WEEKLY PO ; Start 11/01/18 at 09:00; Status UNV Levothyroxine Sodium (Synthroid) 50 mcg DAILY06 PO Last administered on 04:54; Start 10/25/18 at 18:00 Non-Formulary Medication (Ondansetron (Zofran Odt)) 8 mg BID PRN PO NAUSEA/ VOMITING; Start 10/25/18 at 17:30; Status UNV Roflumilast (Daliresp) 500 mcg DAILY PO Last administered on 10/28/18at 08:49; Start 10/25/18 at 18:00 Ropinirole HCl (Requip) 3 mg QHS PO Last administered on 10/27/18at 21:25; Start 10/25/18 at 21:00 Torsemide (Demadex) 20 mg DAILY PO Last administered on 10/28/18at 08:47; Start 10/25/18 at 18:00 Albuterol Sulfate (Ventolin Neb Soln) 2.5 mg PRN Q4HRS PRN NEB SHORTNESS OF BREATH; Start 10/25/18 at 18:15 Methylprednisolone Sodium Succinate (SOLU-Medrol 40MG VIAL) 60 mg Q8HRS IV Last administered on 10/28/18at 04:55; Start 10/25/18 at 22:00 Temazepam (Restoril) 7.5 mg PRN QHS PRN PO INSOMNIA; Start 10/25/18 at 20:00 Levofloxacin/ Dextrose (Levaquin Per Pharmacy) 1 each PRN DAILY PRN [facility] SEE COMMENTS; Start 10/25/18 at 20:00; Status Cancel Levofloxacin/ Dextrose 50 ml @ 50 mls/hr Q24H IV ; Start 10/26/18 at 17:00; Stop 10/26/18 at 17:00; Status DC Levofloxacin (Levaquin) 500 mg DAILY16 PO Last administered on 10/27/18at 05:30 ; Start 10/26/18 at 16:00 Levofloxacin/ Dextrose (Levaquin Per Pharmacy) 1 each PRN DAILY PRN [facility] SEE COMMENTS; Start 10/26/18 at 08:15 Lactobacillus Rhamnosus (Culturelle) 1 cap BID PO Last administered on at 08:48; Start 10/26/18 at 21:00; Stop 10/28/18 at 10:06; Status DC Albuterol/ Ipratropium (Duoneb) 3 ml RTQID NEB Last administered on 10/28/18at 11:16; Start 10/26/18 at 20:00 Throat Lozenges (Chloraseptic) 1 spray PRN Q2HR PRN PO SORE THROAT Last administered on 10/27/18at 16:43; Start 10/27/18 at 11:15 Fluticasone Propionate (Flonase) 2 spray DAILY NS Last administered on at 11:24; Start 10/28/18 at 09:00 Guaifenesin (Robitussin Dm) 10 ml PRN Q6HRS PRN PO COUGH; Start 10/28/18 at 10: 00 Throat Lozenges (Cepacol Sore Throat Lozenge) 1 venancio PRN Q2HRS PRN PO SORE THROAT; Start 10/28/18 at 10:00 Active Scripts Active Prednisone (Prednisone) 10 Mg Tablet 30 Mg PO DAILY Mucinex (Guaifenesin) 600 Mg Tablet.er 600 Mg PO BID Hydrocodone-Apap 10-325 (Hydrocodone Bit/Acetaminophen) 1 Each Tablet 1 Tab PO PRN Q6HRS PRN Doxycycline Hyclate 100 Mg Tablet 100 Mg PO BID 5 Days [place] 5-325 Tablet (Acetaminophen/Hydrocodone Bitart) 1 Each Tablet 1-2 Tab PO Q4-6HRS Reported Percocet 5-325 Mg Tablet (Oxycodone/Acetaminophen) 1 Each Tablet 1 Tab PO PRN Q6HRS PRN Zofran Odt (Ondansetron) 8 Mg Tab.rapdis 8 Mg PO BID PRN Aspir 81 (Aspirin) 81 Mg Tablet.dr 1 Tab PO DAILY Metoprolol Succinate ( Xl ) (Metoprolol Succinate) 25 Mg Tab.er.24h 12.5 Mg PO DAILY Vitamin D3 (Cholecalciferol (Vitamin D3)) 1,000 Unit Tablet 1 Tab PO DAILY Torsemide 20 Mg Tablet 1 Tab PO DAILY Gabapentin (Gabapentin) 100 Mg Capsule 100 Mg PO TID Ferrous Sulfate 325 Mg Tablet 1 Tab PO DAILY Daliresp (Roflumilast) 500 Mcg Tablet 1 Tab PO DAILY Atorvastatin Calcium 20 Mg Tablet 20 Mg PO HS Amitriptyline Hcl 10 Mg Tablet 1-2 Tab PO QHS Alendronate Sodium 70 Mg Tablet 1 Tab PO WEEKLY Requip (Ropinirole Hcl) 1 Mg Tablet 3 Tab PO QHS Proair Hfa Inhaler (Albuterol Sulfate) 8.5 Gm Hfa.aer.ad 1 Puff INH PRN Q6HRS PRN Potassium Citrate 10 Meq Tablet.er 20 Meq PO DAILY Protonix (Pantoprazole Sodium) 40 Mg Tablet.dr 1 Tab PO DAILY Lidocaine 1 Each Adh..patch 1 Each TP Levothyroxine Sodium 50 Mcg Tablet 1 Tab PO DAILY Vitals/I & O Vital Sign - Last 24 Hours 10/27/18 10/27/18 10/27/18 10/27/18 15:00 15:06 16:43 19:00 Temp 97.8 98.4 97.8 98.4 Pulse 96 85 Resp 17 18 18 B/P (MAP) 89/45 (60) 103/46 (65) Pulse Ox 94 94 96 O2 Delivery Nasal Cannula Nasal Cannula Nasal Cannula Nasal Cannula O2 Flow Rate 2.0 2.0 2.0 10/27/18 10/27/18 10/27/18 10/27/18 20:00 21:14 21:25 22:25 Resp 18 Pulse Ox 96 96 O2 Delivery Nasal Cannula Nasal Cannula Nasal Cannula O2 Flow Rate 3.0 2.0 2.0 2.0 10/27/18 10/28/18 10/28/18 10/28/18 23:00 03:00 04:54 05:54 Temp 98.6 98.5 98.6 98.5 Pulse 103 89 Resp 16 18 18 18 B/P (MAP) 116/47 (70) 101/44 (63) Pulse Ox 95 98 98 98 O2 Delivery Nasal Cannula Nasal Cannula Nasal Cannula Nasal Cannula O2 Flow Rate 2.0 2.0 2.0 2.0 10/28/18 10/28/18 10/28/18 10/28/18 07:00 07:54 08:00 08:47 Temp 98.1 98.1 Pulse 89 Resp 18 18 B/P (MAP) 94/41 (58) Pulse Ox 100 99 99 O2 Delivery Nasal Cannula Nasal Cannula Nasal Cannula Nasal Cannula O2 Flow Rate 2.0 2.0 2.0 2.0 10/28/18 10/28/18 10/28/18 10/28/18 09:00 09:47 11:00 11:16 Temp 98.7 98.7 Pulse 89 92 Resp 18 18 B/P (MAP) 94/41 107/60 (76) Pulse Ox 96 99 O2 Delivery Nasal Cannula Nasal Cannula Nasal Cannula O2 Flow Rate 2.0 2.0 Intake and Output 10/27/18 10/27/18 10/28/18 15:01 23:01 07:01 Intake Total 480 ml 420 ml Output Total 0 ml Balance 480 ml 420 ml 0 ml NEGRITO ARREOLA MD Oct 28, 2018 12:49
[2018-10-28 15:00] VITALS: BP 87/49
[2018-10-28 19:00] VITALS: BP 126/54
[2018-10-28] MEDS: ATORVASTATIN CALCIUM 20 MG TABLET PO SCH (20:21)
[2018-10-28] MEDS: AMITRIPTYLINE HCL 10 MG TABLET. PO SCH (20:21)
[2018-10-28] MEDS: rOPINIRole 1 MG TABLET. PO SCH (20:21)
[2018-10-28 22:56] VITALS: BP 115/55
[2018-10-29 03:00] VITALS: BP 110/55
[2018-10-29] MEDS: ASPIRIN ENTERIC COATED 81 MG TABLET.DR. PO SCH (06:10)
[2018-10-29] MEDS: methylPREDNISolone SOD SUCC PF 40 MG/ML VIAL. IV SCH ×3 (06:10→21:03)
[2018-10-29] MEDS: LEVOTHYROXINE 50 MCG TABLET PO SCH (06:10)
[2018-10-29] MEDS: PANTOPRAZOLE 40 MG TABLET.DR. PO SCH (06:10)
[2018-10-29 07:00] VITALS: BP 124/65
[2018-10-29] MEDS: IPRATRPIUM/ALBUTEROL 0.5/2.5MG 3 ML NEBU. NEB SCH ×4 (07:03→19:20)
--- NOTE | 2018-10-29 08:37 | PDOC ---
PULMONARY PROGRESS NOTES Subjective on home 02 2 lpm, has sob, cough, not able to cough up sputum, has nasal congestion Vitals Vital Signs Date Time Temp Pulse Resp B/P (MAP) Pulse Ox O2 Delivery O2 Flow Rate FiO2 10/29/18 07:04 97 Nasal Cannula 2.0 10/29/18 07:00 98.3 72 18 124/65 (84) 98.3 ROS: No Nausea General: Alert, No acute distress Lungs: Wheezing, Other (few rhonchi) Cardiovascular: S1, S2 Abdomen: Soft, Non-tender Neuro Exam: Alert Extremities: No Edema Skin: Warm Labs Laboratory Tests Test 10/27/18 09:25 White Blood Count 5.8 x10^3/uL (4.0-11.0) Red Blood Count 3.61 x10^6/uL (3.50-5.40) Hemoglobin 11.5 g/dL (12.0-15.5) Hematocrit 34.1 % (36.0-47.0) Mean Corpuscular Volume 95 fL (79-100) Mean Corpuscular Hemoglobin 32 pg (25-35) Mean Corpuscular Hemoglobin Concent 34 g/dL (31-37) Red Cell Distribution Width 13.7 % (11.5-14.5) Platelet Count 180 x10^3/uL (140-400) Neutrophils (%) (Auto) 92 % (31-73) Lymphocytes (%) (Auto) 5 % (24-48) Monocytes (%) (Auto) 3 % (0-9) Eosinophils (%) (Auto) 0 % (0-3) Basophils (%) (Auto) 0 % (0-3) Neutrophils # (Auto) 5.4 x10^3uL (1.8-7.7) Lymphocytes # (Auto) 0.3 x10^3/uL (1.0-4.8) Monocytes # (Auto) 0.1 x10^3/uL (0.0-1.1) Eosinophils # (Auto) 0.0 x10^3/uL (0.0-0.7) Basophils # (Auto) 0.0 x10^3/uL (0.0-0.2) Medications Active Scripts Medications Dose Route/Sig Max Daily Dose Days Date Category Prednisone (Prednisone) 10 Mg Tablet 30 Mg PO DAILY 08/13/18 Rx Mucinex (Guaifenesin) 600 Mg Tablet.er 600 Mg PO BID 08/13/18 Rx Hydrocodone-Apap 10-325 (Hydrocodone Bit/Acetaminophen) 1 Each Tablet 1 Tab PO PRN Q6HRS PRN 08/13/18 Rx Doxycycline Hyclate 100 Mg Tablet 100 Mg PO BID 5 08/13/18 Rx Percocet 5-325 Mg Tablet (Oxycodone/Acetaminophen) 1 Each Tablet 1 Tab PO PRN Q6HRS PRN 08/09/18 Reported Zofran Odt (Ondansetron) 8 Mg Tab.rapdis 8 Mg PO BID PRN 08/09/18 Reported [place] 5-325 Tablet (Acetaminophen/Hydrocodone Bitart) 1 Each Tablet 1-2 Tab PO Q4-6HRS 06/24/18 Rx Aspir 81 (Aspirin) 81 Mg Tablet.dr 1 Tab PO DAILY 01/03/18 Reported Metoprolol Succinate ( Xl ) (Metoprolol Succinate) 25 Mg Tab.er.24h 12.5 Mg PO DAILY 01/03/18 Reported Vitamin D3 (Cholecalciferol (Vitamin D3)) 1,000 Unit Tablet 1 Tab PO DAILY 01/02/18 Reported Torsemide 20 Mg Tablet 1 Tab PO DAILY 01/02/18 Reported Gabapentin (Gabapentin) 100 Mg Capsule 100 Mg PO TID 01/02/18 Reported Ferrous Sulfate 325 Mg Tablet 1 Tab PO DAILY 09/23/17 Reported Daliresp (Roflumilast) 500 Mcg Tablet 1 Tab PO DAILY 09/23/17 Reported Atorvastatin Calcium 20 Mg Tablet 20 Mg PO HS 09/23/17 Reported Amitriptyline Hcl 10 Mg Tablet 1-2 Tab PO QHS 09/23/17 Reported Alendronate Sodium 70 Mg Tablet 1 Tab PO WEEKLY 09/23/17 Reported Requip (Ropinirole Hcl) 1 Mg Tablet 3 Tab PO QHS 09/23/17 Reported Proair Hfa Inhaler (Albuterol Sulfate) 8.5 Gm Hfa.aer.ad 1 Puff INH PRN Q6HRS PRN 09/23/17 Reported Potassium Citrate 10 Meq Tablet.er 20 Meq PO DAILY 09/23/17 Reported Protonix (Pantoprazole Sodium) 40 Mg Tablet.dr 1 Tab PO DAILY 09/23/17 Reported Lidocaine 1 Each Adh..patch 1 Each TP 09/23/17 Reported Levothyroxine Sodium 50 Mcg Tablet 1 Tab PO DAILY 09/23/17 Reported Impression . 1. Acute on chronic hypoxic respiratory failure secondary to acute exacerbation of chronic obstructive pulmonary disease and suspected interstitial pneumonia. 2. 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 Leukopenia could be related to viral infection. improving. 3. Abnormal chest x-ray with prominent interstitial markings. This was a same pattern seen in the last year film as well. CT chest reviewed. There is no evidence of interstitial pneumonia or interstitial lung disease. 4. allergic rhinitis Plan . 1. Continue with present oxygen. 2. Continue with antibiotics. 3. Monitor for fevers. 4. steroids, increase to 80 q 8 hrs, still has sob, cough, wheezing. 5. CT chest reviewed. 6. Normal EF by last echocardiogram. 7. Continue bronchodilators. 8. Continue diuretics. monitor k, cr 9. Smoking cessation counseling provided to the patient. 10. flonase The patient to follow at post-discharge. discussed w KING Dowling MD Oct 29, 2018 08:37
[2018-10-29] MEDS: TORSEMIDE 20 MG TABLET. PO SCH (09:02)
[2018-10-29] MEDS: ROFLUMILAST 500 MCG TABLET. PO SCH (09:02)
[2018-10-29] MEDS: GABAPENTIN 100 MG CAPSULE. PO SCH ×3 (09:02→21:03)
[2018-10-29] MEDS: FLUTICASONE 50MCG/NASAL SPRAY 16GM BOTTLE. NS SCH (09:02)
[2018-10-29] MEDS: BENZONATATE 100 MG CAPSULE. PO SCH ×3 (09:02→21:03)
[2018-10-29] MEDS: CHOLECALCIFEROL (VITAMIN D3) 1,000 UNIT TABLET PO SCH (09:02)
[2018-10-29] MEDS: POTASSIUM CITRATE 10 MEQ TABLET.ER PO SCH (09:02)
[2018-10-29] MEDS: HYDROcodone/APAP 5/325MG 1 TAB TABLET PO SCH ×4 (09:03→21:06)
[2018-10-29] MEDS: METOPROLOL SUCC 24HR ER 25 MG TAB.ER.24H. PO SCH (09:04)
[2018-10-29] MEDS: FERROUS SULFATE 325 MG TABLET. PO SCH (09:04)
--- NOTE | 2018-10-29 09:18 | PDOC ---
PROGRESS NOTES Chief Complaint Chief Complaint Severe acute exacerbation of COPD sepsis known Immune deficiency, NOS, got IgG infusion at home 10/25, per [facility] vasomotor nephropathy, in the background of diuretic use- HTN-chronic stable Hypothyroidism on replacement Dyslipidemia on statin malnutrition, POA, serum alb 2.8 History of Present Illness History of Present Illness still weak, marked dyspnea with any exertion less cough, creatinine improved Vitals Vitals Vital Signs Date Time Temp Pulse Resp B/P (MAP) Pulse Ox O2 Delivery O2 Flow Rate FiO2 10/29/18 09:04 72 124/65 10/29/18 09:03 18 97 Nasal Cannula 2.0 10/29/18 07:00 98.3 98.3 Physical Exam General: Alert, Oriented X3, Cooperative, mild distress Heart: Normal S1, Normal S2, No murmurs Lungs: Wheezing, Other (few rhonchi) Abdomen: Normal bowel sounds, Soft, No tenderness, No hepatosplenomegaly, No masses Extremities: No clubbing, No cyanosis, No edema, Normal pulses, No tenderness/ swelling Skin: No rashes, No breakdown, No significant lesion Review of Systems Review of Systems marked dyspnea with exertion, feels better at rest Assessment and Plan Assessmemt and Plan Problems Medical Problems: (1) Bandemia Status: Acute (2) COPD exacerbation Status: Acute Comment Review of Relevant I have reviewed the following items jon (where applicable) has been applied. Labs Laboratory Tests Test 10/27/18 09:25 White Blood Count 5.8 x10^3/uL (4.0-11.0) Red Blood Count 3.61 x10^6/uL (3.50-5.40) Hemoglobin 11.5 g/dL (12.0-15.5) Hematocrit 34.1 % (36.0-47.0) Mean Corpuscular Volume 95 fL (79-100) Mean Corpuscular Hemoglobin 32 pg (25-35) Mean Corpuscular Hemoglobin Concent 34 g/dL (31-37) Red Cell Distribution Width 13.7 % (11.5-14.5) Platelet Count 180 x10^3/uL (140-400) Neutrophils (%) (Auto) 92 % (31-73) Lymphocytes (%) (Auto) 5 % (24-48) Monocytes (%) (Auto) 3 % (0-9) Eosinophils (%) (Auto) 0 % (0-3) Basophils (%) (Auto) 0 % (0-3) Neutrophils # (Auto) 5.4 x10^3uL (1.8-7.7) Lymphocytes # (Auto) 0.3 x10^3/uL (1.0-4.8) Monocytes # (Auto) 0.1 x10^3/uL (0.0-1.1) Eosinophils # (Auto) 0.0 x10^3/uL (0.0-0.7) Basophils # (Auto) 0.0 x10^3/uL (0.0-0.2) Microbiology 10/25/18 Blood Culture - Preliminary, Resulted NO GROWTH AFTER 3 DAYS Medications Current Medications Albuterol/ Ipratropium (Duoneb) 3 ml 1X ONCE NEB Last administered on at 16:13; Start 10/25/18 at 16:00; Stop 10/25/18 at 16:01; Status DC Methylprednisolone Sodium Succinate (SOLU-Medrol 125MG VIAL) 125 mg 1X ONCE IV Last administered on 10/25/18at 16:16; Start 10/25/18 at 16:00; Stop 10/25/18 at 16:01; Status DC Acetaminophen (Tylenol) 650 mg 1X ONCE PO Last administered on 10/25/18at 16:14 ; Start 10/25/18 at 16:00; Stop 10/25/18 at 16:01; Status DC Sodium Chloride 1,000 ml @ 1,000 mls/hr 1X ONCE IV Last administered on at 16:36; Start 10/25/18 at 16:45; Stop 10/25/18 at 17:50; Status DC Ceftriaxone Sodium (Rocephin) 1 gm 1X ONCE IVP ; Start 10/25/18 at 17:00; Stop 10/25/18 at 17:01; Status UNV Azithromycin 250 ml @ 250 mls/hr 1X ONCE IV ; Start 10/25/18 at 17:00; Stop at 17:59; Status Cancel Albuterol/ Ipratropium (Duoneb) 3 ml 1X ONCE NEB Last administered on at 18:00; Start 10/25/18 at 17:00; Stop 10/25/18 at 17:06; Status DC Levofloxacin/ Dextrose 150 ml @ 100 mls/hr 1X ONCE IV Last administered on at 17:58; Start 10/25/18 at 17:15; Stop 10/25/18 at 18:44; Status DC Acetaminophen (Tylenol) 650 mg PRN Q4HRS PRN PO FEVER; Start 10/25/18 at 17:15 ; Stop 10/26/18 at 17:14; Status DC Albuterol/ Ipratropium (Duoneb) 3 ml RTQID NEB Last administered on 10/26/18at 15:14; Start 10/25/18 at 20:00; Stop 10/26/18 at 20:12; Status DC Benzonatate (Tessalon Perle) 100 mg [id number] PO Last administered on 10/29/18 09 :02; Start 10/25/18 at 21:00 Guaifenesin (Robitussin Dm) 10 ml PRN Q6HRS PRN PO COUGH 1ST CHOICE Last administered on 10/27/18at 21:26; Start 10/25/18 at 17:30; Stop 10/28/18 at 09:54 ; Status DC Diphenhydramine HCl (Benadryl) 25 mg PRN QHS PRN PO INSOMNIA; Start 10/25/18 at 17:30 Ondansetron HCl (Zofran) 4 mg PRN Q6HRS PRN IV NAUSEA/VOMITING; Start 10/25/18 at 17:30 Ondansetron HCl (Zofran Odt) 4 mg PRN Q6HRS PRN PO NAUSEA/VOMITING; Start 10/25 at 17:30 Amitriptyline HCl (Elavil) 20 mg QHS PO Last administered on 10/28/18 20:21; Start 10/25/18 at 21:00 Aspirin (Ecotrin) 81 mg DAILY07 PO Last administered on 10/29/18at 06:10; Start 10/25/18 at 18:00 Atorvastatin Calcium (Lipitor) 20 mg HS PO Last administered on 10/28/18 20:21 ; Start 10/25/18 at 21:00 Vitamin D (Vitamin D3) 1,000 unit DAILY PO Last administered on 10/29/18 09:02 ; Start 10/25/18 at 18:00 Ferrous Sulfate (Feosol) 325 mg DAILY08 PO Last administered on 10/29/18 09:04 ; Start 10/25/18 at 18:00 Gabapentin (Neurontin) 100 mg TID PO Last administered on 10/29/18 09:02; Start 10/25/18 at 21:00 Acetaminophen/ Hydrocodone Bitart (Lortab 10/325) 1 tab PRN Q6HRS PRN PO MODERATE-SEVERE PAIN; Start 10/25/18 at 17:30 Acetaminophen/ Hydrocodone Bitart (Lortab 5/325) 1 tab QID PO Last administered on 10/29/18 09:03; Start 10/25/18 at 21:00 Metoprolol Succinate (Toprol Xl) 12.5 mg DAILY PO Last administered on 09:04; Start 10/25/18 at 18:00 Oxycodone/ Acetaminophen (Percocet 5/325) 1 tab PRN Q6HRS PRN PO PAIN severe 2nd choice Last administered on 10/28/18 04:54; Start 10/25/18 at 17:30 Pantoprazole Sodium (Protonix) 40 mg DAILY07 PO Last administered on 10/29/18 06:10; Start 10/25/18 at 18:00 Potassium Citrate (Urocit-K) 20 meq DAILY08 PO Last administered on 10/29/18 09:02; Start 10/25/18 at 18:00 Non-Formulary Medication (Alendronate Sodium ) 1 tab WEEKLY PO ; Start 11/01/18 at 09:00; Status UNV Levothyroxine Sodium (Synthroid) 50 mcg DAILY06 PO Last administered on 06:10; Start 10/25/18 at 18:00 Non-Formulary Medication (Ondansetron (Zofran Odt)) 8 mg BID PRN PO NAUSEA/ VOMITING; Start 10/25/18 at 17:30; Status UNV Roflumilast (Daliresp) 500 mcg DAILY PO Last administered on 10/29/18 09:02; Start 10/25/18 at 18:00 Ropinirole HCl (Requip) 3 mg QHS PO Last administered on 10/28/18 20:21; Start 10/25/18 at 21:00 Torsemide (Demadex) 20 mg DAILY PO Last administered on 10/29/18at 09:02; Start 10/25/18 at 18:00 Albuterol Sulfate (Ventolin Neb Soln) 2.5 mg PRN Q4HRS PRN NEB SHORTNESS OF BREATH; Start 10/25/18 at 18:15 Methylprednisolone Sodium Succinate (SOLU-Medrol 40MG VIAL) 60 mg Q8HRS IV Last administered on 10/29/18at 06:10; Start 10/25/18 at 22:00; Stop 10/29/18 at 08:39; Status DC Temazepam (Restoril) 7.5 mg PRN QHS PRN PO INSOMNIA; Start 10/25/18 at 20:00 Levofloxacin/ Dextrose (Levaquin Per Pharmacy) 1 each PRN DAILY PRN [facility] SEE COMMENTS; Start 10/25/18 at 20:00; Status Cancel Levofloxacin/ Dextrose 50 ml @ 50 mls/hr Q24H IV ; Start 10/26/18 at 17:00; Stop 10/26/18 at 17:00; Status DC Levofloxacin (Levaquin) 500 mg DAILY16 PO Last administered on 10/28/18at 17:14 ; Start 10/26/18 at 16:00 Levofloxacin/ Dextrose (Levaquin Per Pharmacy) 1 each PRN DAILY PRN [facility] SEE COMMENTS; Start 10/26/18 at 08:15 Lactobacillus Rhamnosus (Culturelle) 1 cap BID PO Last administered on at 08:48; Start 10/26/18 at 21:00; Stop 10/28/18 at 10:06; Status DC Albuterol/ Ipratropium (Duoneb) 3 ml RTQID NEB Last administered on 10/29/18at 07:03; Start 10/26/18 at 20:00 Throat Lozenges (Chloraseptic) 1 spray PRN Q2HR PRN PO SORE THROAT Last administered on 10/27/18at 16:43; Start 10/27/18 at 11:15 Fluticasone Propionate (Flonase) 2 spray DAILY NS Last administered on at 09:02; Start 10/28/18 at 09:00 Guaifenesin (Robitussin Dm) 10 ml PRN Q6HRS PRN PO COUGH; Start 10/28/18 at 10: 00 Throat Lozenges (Cepacol Sore Throat Lozenge) 1 venancio PRN Q2HRS PRN PO SORE THROAT; Start 10/28/18 at 10:00 Methylprednisolone Sodium Succinate (SOLU-Medrol 40MG VIAL) 80 mg Q8HRS IV ; Start 10/29/18 at 14:00 Active Scripts Active Prednisone (Prednisone) 10 Mg Tablet 30 Mg PO DAILY Mucinex (Guaifenesin) 600 Mg Tablet.er 600 Mg PO BID Hydrocodone-Apap 10-325 (Hydrocodone Bit/Acetaminophen) 1 Each Tablet 1 Tab PO PRN Q6HRS PRN Doxycycline Hyclate 100 Mg Tablet 100 Mg PO BID 5 Days [place] 5-325 Tablet (Acetaminophen/Hydrocodone Bitart) 1 Each Tablet 1-2 Tab PO Q4-6HRS Reported Percocet 5-325 Mg Tablet (Oxycodone/Acetaminophen) 1 Each Tablet 1 Tab PO PRN Q6HRS PRN Zofran Odt (Ondansetron) 8 Mg Tab.rapdis 8 Mg PO BID PRN Aspir 81 (Aspirin) 81 Mg Tablet. 1 Tab PO DAILY Metoprolol Succinate ( Xl ) (Metoprolol Succinate) 25 Mg Tab.er.24h 12.5 Mg PO DAILY Vitamin D3 (Cholecalciferol (Vitamin D3)) 1,000 Unit Tablet 1 Tab PO DAILY Torsemide 20 Mg Tablet 1 Tab PO DAILY Gabapentin (Gabapentin) 100 Mg Capsule 100 Mg PO TID Ferrous Sulfate 325 Mg Tablet 1 Tab PO DAILY Daliresp (Roflumilast) 500 Mcg Tablet 1 Tab PO DAILY Atorvastatin Calcium 20 Mg Tablet 20 Mg PO HS Amitriptyline Hcl 10 Mg Tablet 1-2 Tab PO QHS Alendronate Sodium 70 Mg Tablet 1 Tab PO WEEKLY Requip (Ropinirole Hcl) 1 Mg Tablet 3 Tab PO QHS Proair Hfa Inhaler (Albuterol Sulfate) 8.5 Gm Hfa.aer.ad 1 Puff INH PRN Q6HRS PRN Potassium Citrate 10 Meq Tablet.er 20 Meq PO DAILY Protonix (Pantoprazole Sodium) 40 Mg Tablet. 1 Tab PO DAILY Lidocaine 1 Each Adh..patch 1 Each TP Levothyroxine Sodium 50 Mcg Tablet 1 Tab PO DAILY Vitals/I & O Vital Sign - Last 24 Hours 10/28/18 10/28/18 10/28/18 10/28/18 11:00 11:16 13:22 15:00 Temp 98.7 98.4 98.7 98.4 Pulse 92 92 Resp 18 18 17 B/P (MAP) 107/60 (76) 87/49 (62) Pulse Ox 96 99 99 97 O2 Delivery Nasal Cannula Nasal Cannula Nasal Cannula Nasal Cannula O2 Flow Rate 2.0 2.0 2.0 2.0 10/28/18 10/28/18 10/28/18 10/28/18 17:14 18:14 19:00 19:30 Temp 97.9 97.9 Pulse 101 Resp 18 18 18 B/P (MAP) 126/54 (78) Pulse Ox 97 O2 Delivery Nasal Cannula Nasal Cannula Nasal Cannula O2 Flow Rate 2.0 2.0 2.0 10/28/18 10/28/18 10/28/18 10/28/18 19:35 20:21 21:21 22:56 Temp 98.6 98.6 Pulse 83 Resp 18 B/P (MAP) 115/55 (75) Pulse Ox 98 98 98 96 O2 Delivery Nasal Cannula Nasal Cannula Nasal Cannula Nasal Cannula O2 Flow Rate 2.0 2.0 2.0 2.0 10/29/18 10/29/18 10/29/18 10/29/18 03:00 07:00 07:04 09:03 Temp 98.4 98.3 98.4 98.3 Pulse 74 72 Resp 18 18 18 B/P (MAP) 110/55 (73) 124/65 (84) Pulse Ox 96 96 97 97 O2 Delivery Nasal Cannula Nasal Cannula Nasal Cannula Nasal Cannula O2 Flow Rate 2.0 2.0 2.0 2.0 10/29/18 09:04 Pulse 72 B/P (MAP) 124/65 Intake and Output 10/28/18 10/28/18 10/29/18 15:01 23:01 07:01 Intake Total 580 ml 180 ml Balance 580 ml 180 ml DEMETRA BABIN MD Oct 29, 2018 09:18
--- NOTE | 2018-10-29 11:30 | PDOC ---
PROGRESS NOTES Subjective Subjective HPI - f/u of neutropenia ROS - Dyspnea better. Objective Objective Vital Signs Date Time Temp Pulse Resp B/P (MAP) Pulse Ox O2 Delivery O2 Flow Rate FiO2 10/29/18 11:16 18 Nasal Cannula 2.0 10/29/18 09:04 72 10/29/18 09:03 97 10/29/18 07:00 98.3 98.3 Intake and Output 10/29/18 07:01 Intake Total 760 ml Balance 760 ml Intake Oral 760 ml # Voids 6 Physical Exam Heart: Normal S1, Normal S2 General: Alert, Oriented X3 Neck: Supple Neuro: Normal speech Assessment Assessment Problems Medical Problems: (1) Bandemia Status: Acute (2) COPD exacerbation Status: Acute IMPRESSION AND PLAN: 1. Acute neutropenia with a WBC count of 1.8 on 10/26/2018, is consistent with reactive change due to underlying infection. She has evidence of 15% bands. She is admitted for chronic obstructive pulmonary disease exacerbation and she has been started on IV antibiotics. WBC improved 5.8 on 10/27/18. 2. Chronic obstructive pulmonary disease exacerbation. Appreciate pulmonary consultation and management. Dyspnea better. Comment Review of Relevant I have reviewed the following items jon (where applicable) has been applied. Labs Microbiology 10/25/18 Blood Culture - Preliminary, Resulted NO GROWTH AFTER 3 DAYS Medications Current Medications Albuterol/ Ipratropium (Duoneb) 3 ml 1X ONCE NEB Last administered on at 16:13; Start 10/25/18 at 16:00; Stop 10/25/18 at 16:01; Status DC Methylprednisolone Sodium Succinate (SOLU-Medrol 125MG VIAL) 125 mg 1X ONCE IV Last administered on 10/25/18at 16:16; Start 10/25/18 at 16:00; Stop 10/25/18 at 16:01; Status DC Acetaminophen (Tylenol) 650 mg 1X ONCE PO Last administered on 10/25/18at 16:14 ; Start 10/25/18 at 16:00; Stop 10/25/18 at 16:01; Status DC Sodium Chloride 1,000 ml @ 1,000 mls/hr 1X ONCE IV Last administered on at 16:36; Start 10/25/18 at 16:45; Stop 10/25/18 at 17:50; Status DC Ceftriaxone Sodium (Rocephin) 1 gm 1X ONCE IVP ; Start 10/25/18 at 17:00; Stop 10/25/18 at 17:01; Status UNV Azithromycin 250 ml @ 250 mls/hr 1X ONCE IV ; Start 10/25/18 at 17:00; Stop at 17:59; Status Cancel Albuterol/ Ipratropium (Duoneb) 3 ml 1X ONCE NEB Last administered on at 18:00; Start 10/25/18 at 17:00; Stop 10/25/18 at 17:06; Status DC Levofloxacin/ Dextrose 150 ml @ 100 mls/hr 1X ONCE IV Last administered on at 17:58; Start 10/25/18 at 17:15; Stop 10/25/18 at 18:44; Status DC Acetaminophen (Tylenol) 650 mg PRN Q4HRS PRN PO FEVER; Start 10/25/18 at 17:15 ; Stop 10/26/18 at 17:14; Status DC Albuterol/ Ipratropium (Duoneb) 3 ml RTQID NEB Last administered on 10/26/18at 15:14; Start 10/25/18 at 20:00; Stop 10/26/18 at 20:12; Status DC Benzonatate (Tessalon Perle) 100 mg [id number] PO Last administered on 10/29/18at 09 :02; Start 10/25/18 at 21:00 Guaifenesin (Robitussin Dm) 10 ml PRN Q6HRS PRN PO COUGH 1ST CHOICE Last administered on 10/27/18at 21:26; Start 10/25/18 at 17:30; Stop 10/28/18 at 09:54 ; Status DC Diphenhydramine HCl (Benadryl) 25 mg PRN QHS PRN PO INSOMNIA; Start 10/25/18 at 17:30 Ondansetron HCl (Zofran) 4 mg PRN Q6HRS PRN IV NAUSEA/VOMITING; Start 10/25/18 at 17:30 Ondansetron HCl (Zofran Odt) 4 mg PRN Q6HRS PRN PO NAUSEA/VOMITING; Start 10/25 at 17:30 Amitriptyline HCl (Elavil) 20 mg QHS PO Last administered on 10/28/18 20:21; Start 10/25/18 at 21:00 Aspirin (Ecotrin) 81 mg DAILY07 PO Last administered on 10/29/18 06:10; Start 10/25/18 at 18:00 Atorvastatin Calcium (Lipitor) 20 mg HS PO Last administered on 10/28/18 20:21 ; Start 10/25/18 at 21:00 Vitamin D (Vitamin D3) 1,000 unit DAILY PO Last administered on 10/29/18 09:02 ; Start 10/25/18 at 18:00 Ferrous Sulfate (Feosol) 325 mg DAILY08 PO Last administered on 10/29/18 09:04 ; Start 10/25/18 at 18:00 Gabapentin (Neurontin) 100 mg TID PO Last administered on 10/29/18 09:02; Start 10/25/18 at 21:00 Acetaminophen/ Hydrocodone Bitart (Lortab 10/325) 1 tab PRN Q6HRS PRN PO MODERATE-SEVERE PAIN; Start 10/25/18 at 17:30 Acetaminophen/ Hydrocodone Bitart (Lortab 5/325) 1 tab QID PO Last administered on 10/29/18 09:03; Start 10/25/18 at 21:00 Metoprolol Succinate (Toprol Xl) 12.5 mg DAILY PO Last administered on 09:04; Start 10/25/18 at 18:00 Oxycodone/ Acetaminophen (Percocet 5/325) 1 tab PRN Q6HRS PRN PO PAIN severe 2nd choice Last administered on 10/28/18 04:54; Start 10/25/18 at 17:30 Pantoprazole Sodium (Protonix) 40 mg DAILY07 PO Last administered on 10/29/18 06:10; Start 10/25/18 at 18:00 Potassium Citrate (Urocit-K) 20 meq DAILY08 PO Last administered on 10/29/18 09:02; Start 10/25/18 at 18:00 Non-Formulary Medication (Alendronate Sodium ) 1 tab WEEKLY PO ; Start 11/01/18 at 09:00; Status UNV Levothyroxine Sodium (Synthroid) 50 mcg DAILY06 PO Last administered on 06:10; Start 10/25/18 at 18:00 Non-Formulary Medication (Ondansetron (Zofran Odt)) 8 mg BID PRN PO NAUSEA/ VOMITING; Start 10/25/18 at 17:30; Status UNV Roflumilast (Daliresp) 500 mcg DAILY PO Last administered on 10/29/18at 09:02; Start 10/25/18 at 18:00 Ropinirole HCl (Requip) 3 mg QHS PO Last administered on 10/28/18at 20:21; Start 10/25/18 at 21:00 Torsemide (Demadex) 20 mg DAILY PO Last administered on 10/29/18at 09:02; Start 10/25/18 at 18:00 Albuterol Sulfate (Ventolin Neb Soln) 2.5 mg PRN Q4HRS PRN NEB SHORTNESS OF BREATH; Start 10/25/18 at 18:15 Methylprednisolone Sodium Succinate (SOLU-Medrol 40MG VIAL) 60 mg Q8HRS IV Last administered on 10/29/18at 06:10; Start 10/25/18 at 22:00; Stop 10/29/18 at 08:39; Status DC Temazepam (Restoril) 7.5 mg PRN QHS PRN PO INSOMNIA; Start 10/25/18 at 20:00 Levofloxacin/ Dextrose (Levaquin Per Pharmacy) 1 each PRN DAILY PRN [facility] SEE COMMENTS; Start 10/25/18 at 20:00; Status Cancel Levofloxacin/ Dextrose 50 ml @ 50 mls/hr Q24H IV ; Start 10/26/18 at 17:00; Stop 10/26/18 at 17:00; Status DC Levofloxacin (Levaquin) 500 mg DAILY16 PO Last administered on 10/28/18at 17:14 ; Start 10/26/18 at 16:00 Levofloxacin/ Dextrose (Levaquin Per Pharmacy) 1 each PRN DAILY PRN [facility] SEE COMMENTS; Start 10/26/18 at 08:15 Lactobacillus Rhamnosus (Culturelle) 1 cap BID PO Last administered on at 08:48; Start 10/26/18 at 21:00; Stop 10/28/18 at 10:06; Status DC Albuterol/ Ipratropium (Duoneb) 3 ml RTQID NEB Last administered on 10/29/18at 07:03; Start 10/26/18 at 20:00 Throat Lozenges (Chloraseptic) 1 spray PRN Q2HR PRN PO SORE THROAT Last administered on 10/27/18at 16:43; Start 10/27/18 at 11:15 Fluticasone Propionate (Flonase) 2 spray DAILY NS Last administered on at 09:02; Start 10/28/18 at 09:00 Guaifenesin (Robitussin Dm) 10 ml PRN Q6HRS PRN PO COUGH; Start 10/28/18 at 10: 00 Throat Lozenges (Cepacol Sore Throat Lozenge) 1 venancio PRN Q2HRS PRN PO SORE THROAT; Start 10/28/18 at 10:00 Methylprednisolone Sodium Succinate (SOLU-Medrol 40MG VIAL) 80 mg Q8HRS IV ; Start 10/29/18 at 14:00 Active Scripts Active Prednisone (Prednisone) 10 Mg Tablet 30 Mg PO DAILY Mucinex (Guaifenesin) 600 Mg Tablet.er 600 Mg PO BID Hydrocodone-Apap 10-325 (Hydrocodone Bit/Acetaminophen) 1 Each Tablet 1 Tab PO PRN Q6HRS PRN Doxycycline Hyclate 100 Mg Tablet 100 Mg PO BID 5 Days [place] 5-325 Tablet (Acetaminophen/Hydrocodone Bitart) 1 Each Tablet 1-2 Tab PO Q4-6HRS Reported Percocet 5-325 Mg Tablet (Oxycodone/Acetaminophen) 1 Each Tablet 1 Tab PO PRN Q6HRS PRN Zofran Odt (Ondansetron) 8 Mg Tab.rapdis 8 Mg PO BID PRN Aspir 81 (Aspirin) 81 Mg Tablet.dr 1 Tab PO DAILY Metoprolol Succinate ( Xl ) (Metoprolol Succinate) 25 Mg Tab.er.24h 12.5 Mg PO DAILY Vitamin D3 (Cholecalciferol (Vitamin D3)) 1,000 Unit Tablet 1 Tab PO DAILY Torsemide 20 Mg Tablet 1 Tab PO DAILY Gabapentin (Gabapentin) 100 Mg Capsule 100 Mg PO TID Ferrous Sulfate 325 Mg Tablet 1 Tab PO DAILY Daliresp (Roflumilast) 500 Mcg Tablet 1 Tab PO DAILY Atorvastatin Calcium 20 Mg Tablet 20 Mg PO HS Amitriptyline Hcl 10 Mg Tablet 1-2 Tab PO QHS Alendronate Sodium 70 Mg Tablet 1 Tab PO WEEKLY Requip (Ropinirole Hcl) 1 Mg Tablet 3 Tab PO QHS Proair Hfa Inhaler (Albuterol Sulfate) 8.5 Gm Hfa.aer.ad 1 Puff INH PRN Q6HRS PRN Potassium Citrate 10 Meq Tablet.er 20 Meq PO DAILY Protonix (Pantoprazole Sodium) 40 Mg Tablet.dr 1 Tab PO DAILY Lidocaine 1 Each Adh..patch 1 Each TP Levothyroxine Sodium 50 Mcg Tablet 1 Tab PO DAILY Vitals/I & O Vital Sign - Last 24 Hours 10/28/18 10/28/18 10/28/18 10/28/18 13:22 15:00 17:14 19:00 Temp 98.4 97.9 98.4 97.9 Pulse 92 101 Resp 18 17 18 18 B/P (MAP) 87/49 (62) 126/54 (78) Pulse Ox 99 97 97 O2 Delivery Nasal Cannula Nasal Cannula Nasal Cannula Nasal Cannula O2 Flow Rate 2.0 2.0 2.0 2.0 10/28/18 10/28/18 10/28/18 10/28/18 19:30 19:35 20:21 21:21 Pulse Ox 98 98 98 O2 Delivery Nasal Cannula Nasal Cannula Nasal Cannula O2 Flow Rate 2.0 2.0 2.0 10/28/18 10/29/18 10/29/18 10/29/18 22:56 03:00 07:00 07:04 Temp 98.6 98.4 98.3 98.6 98.4 98.3 Pulse 83 74 72 Resp 18 18 18 B/P (MAP) 115/55 (75) 110/55 (73) 124/65 (84) Pulse Ox 96 96 96 97 O2 Delivery Nasal Cannula Nasal Cannula Nasal Cannula Nasal Cannula O2 Flow Rate 2.0 2.0 2.0 2.0 10/29/18 10/29/18 10/29/18 10/29/18 08:00 09:03 09:04 10:03 Pulse 72 Resp 18 18 B/P (MAP) 124/65 Pulse Ox 97 O2 Delivery Nasal Cannula Nasal Cannula Nasal Cannula O2 Flow Rate 2.0 2.0 2.0 10/29/18 11:16 Resp 18 B/P (MAP) O2 Delivery Nasal Cannula O2 Flow Rate 2.0 Intake and Output 10/28/18 10/28/18 10/29/18 15:01 23:01 07:01 Intake Total 580 ml 180 ml Balance 580 ml 180 ml NEGRITO ARREOLA MD Oct 29, 2018 11:30
[2018-10-29 15:00] VITALS: BP 102/48
[2018-10-29] MEDS: HYDROcodone/APAP 10/325 1 TAB TABLET PO PRN (17:50)
[2018-10-29 19:00] VITALS: BP 118/62
[2018-10-29] MEDS: ATORVASTATIN CALCIUM 20 MG TABLET PO SCH (21:03)
[2018-10-29] MEDS: AMITRIPTYLINE HCL 10 MG TABLET. PO SCH (21:03)
[2018-10-29] MEDS: rOPINIRole 1 MG TABLET. PO SCH (21:03)
[2018-10-29 23:00] VITALS: BP 132/69
[2018-10-30 03:00] VITALS: BP 122/62
[2018-10-30] MEDS: LEVOTHYROXINE 50 MCG TABLET PO SCH (05:54)
[2018-10-30] MEDS: methylPREDNISolone SOD SUCC PF 40 MG/ML VIAL. IV SCH ×3 (05:54→21:12)
[2018-10-30] MEDS: ASPIRIN ENTERIC COATED 81 MG TABLET.DR. PO SCH (05:54)
[2018-10-30] MEDS: PANTOPRAZOLE 40 MG TABLET.DR. PO SCH (05:54)
[2018-10-30] MEDS: IPRATRPIUM/ALBUTEROL 0.5/2.5MG 3 ML NEBU. NEB SCH ×4 (07:50→19:15)
[2018-10-30 07:58] VITALS: BP 129/66
[2018-10-30] MEDS: FERROUS SULFATE 325 MG TABLET. PO SCH (08:00)
[2018-10-30] MEDS: POTASSIUM CITRATE 10 MEQ TABLET.ER PO SCH (08:01)
[2018-10-30] MEDS: GABAPENTIN 100 MG CAPSULE. PO SCH ×3 (08:39→21:11)
[2018-10-30] MEDS: FLUTICASONE 50MCG/NASAL SPRAY 16GM BOTTLE. NS SCH (08:39)
[2018-10-30] MEDS: BENZONATATE 100 MG CAPSULE. PO SCH ×3 (08:40→21:11)
[2018-10-30] MEDS: CHOLECALCIFEROL (VITAMIN D3) 1,000 UNIT TABLET PO SCH (08:40)
[2018-10-30] MEDS: ROFLUMILAST 500 MCG TABLET. PO SCH (08:40)
[2018-10-30] MEDS: TORSEMIDE 20 MG TABLET. PO SCH (08:40)
[2018-10-30] MEDS: HYDROcodone/APAP 5/325MG 1 TAB TABLET PO SCH ×4 (08:43→21:00)
[2018-10-30] MEDS: METOPROLOL SUCC 24HR ER 25 MG TAB.ER.24H. PO SCH (08:43)
--- NOTE | 2018-10-30 08:56 | PDOC ---
PULMONARY PROGRESS NOTES Subjective PT STILL SOA AND WHEEZE Vitals Vital Signs Date Time Temp Pulse Resp B/P (MAP) Pulse Ox O2 Delivery O2 Flow Rate FiO2 10/30/18 08:43 76 129/66 10/30/18 08:43 Nasal Cannula 2.0 10/30/18 07:58 98.5 20 95 98.5 ROS: No Nausea General: Alert, No acute distress Lungs: Wheezing Cardiovascular: S1, S2 Abdomen: Soft, Non-tender Neuro Exam: Alert Extremities: No Edema Skin: Warm Medications Active Scripts Medications Dose Route/Sig Max Daily Dose Days Date Category Prednisone (Prednisone) 10 Mg Tablet 30 Mg PO DAILY 08/13/18 Rx Mucinex (Guaifenesin) 600 Mg Tablet.er 600 Mg PO BID 08/13/18 Rx Hydrocodone-Apap 10-325 (Hydrocodone Bit/Acetaminophen) 1 Each Tablet 1 Tab PO PRN Q6HRS PRN 08/13/18 Rx Doxycycline Hyclate 100 Mg Tablet 100 Mg PO BID 5 08/13/18 Rx Percocet 5-325 Mg Tablet (Oxycodone/Acetaminophen) 1 Each Tablet 1 Tab PO PRN Q6HRS PRN 08/09/18 Reported Zofran Odt (Ondansetron) 8 Mg Tab.rapdis 8 Mg PO BID PRN 08/09/18 Reported [place] 5-325 Tablet (Acetaminophen/Hydrocodone Bitart) 1 Each Tablet 1-2 Tab PO Q4-6HRS 06/24/18 Rx Aspir 81 (Aspirin) 81 Mg Tablet.dr 1 Tab PO DAILY 01/03/18 Reported Metoprolol Succinate ( Xl ) (Metoprolol Succinate) 25 Mg Tab.er.24h 12.5 Mg PO DAILY 01/03/18 Reported Vitamin D3 (Cholecalciferol (Vitamin D3)) 1,000 Unit Tablet 1 Tab PO DAILY 01/02/18 Reported Torsemide 20 Mg Tablet 1 Tab PO DAILY 01/02/18 Reported Gabapentin (Gabapentin) 100 Mg Capsule 100 Mg PO TID 01/02/18 Reported Ferrous Sulfate 325 Mg Tablet 1 Tab PO DAILY 09/23/17 Reported Daliresp (Roflumilast) 500 Mcg Tablet 1 Tab PO DAILY 09/23/17 Reported Atorvastatin Calcium 20 Mg Tablet 20 Mg PO HS 09/23/17 Reported Amitriptyline Hcl 10 Mg Tablet 1-2 Tab PO QHS 09/23/17 Reported Alendronate Sodium 70 Mg Tablet 1 Tab PO WEEKLY 09/23/17 Reported Requip (Ropinirole Hcl) 1 Mg Tablet 3 Tab PO QHS 09/23/17 Reported Proair Hfa Inhaler (Albuterol Sulfate) 8.5 Gm Hfa.aer.ad 1 Puff INH PRN Q6HRS PRN 09/23/17 Reported Potassium Citrate 10 Meq Tablet.er 20 Meq PO DAILY 09/23/17 Reported Protonix (Pantoprazole Sodium) 40 Mg Tablet.dr 1 Tab PO DAILY 09/23/17 Reported Lidocaine 1 Each Adh..patch 1 Each TP 09/23/17 Reported Levothyroxine Sodium 50 Mcg Tablet 1 Tab PO DAILY 09/23/17 Reported Impression . 1. Acute on chronic hypoxic respiratory failure secondary to acute exacerbation of chronic obstructive pulmonary/ VIRAL TRACHEOBRONCHITIS 2. 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 Leukopenia could be related to viral infection. improving. 3. Abnormal chest x-ray with prominent interstitial markings. This was a same pattern seen in the last year film as well. CT chest reviewed. There is no evidence of interstitial pneumonia or interstitial lung disease. 4. allergic rhinitis Plan . INFORMED PT THAT IT MAY TAKE A WHILE FOR HER TO IMPROVE CONTINUE SUPPORT 1. Continue with present oxygen. 2. Continue with antibiotics. 3. Monitor for fevers. 4. steroids, increase to 80 q 8 hrs, still has sob, cough, wheezing. 5. CT chest reviewed. 6. Normal EF by last echocardiogram. 7. Continue bronchodilators. 8. Continue diuretics. monitor k, cr 9. Smoking cessation counseling provided to the patient. 10. flonase The patient to follow at post-discharge. LETICIA FORTUNE MD Oct 30, 2018 08:56
--- NOTE | 2018-10-30 08:57 | PDOC ---
PROGRESS NOTES Subjective Subjective HPI - f/u of Acute neutropenia ROS - has dyspnea Objective Objective Vital Signs Date Time Temp Pulse Resp B/P (MAP) Pulse Ox O2 Delivery O2 Flow Rate FiO2 10/30/18 08:43 76 129/66 10/30/18 08:43 Nasal Cannula 2.0 10/30/18 07:58 98.5 20 95 98.5 Intake and Output 10/30/18 07:01 Intake Total 960 ml Balance 960 ml Intake Oral 960 ml # Voids 9 Physical Exam Heart: Normal S1, Normal S2 General: Alert, Oriented X3 Lungs: Other (wheeze) Neuro: Normal speech Psych/Mental Status: Mental status NL Assessment Assessment Problems Medical Problems: (1) Bandemia Status: Acute (2) COPD exacerbation Status: Acute IMPRESSION AND PLAN: 1. Acute neutropenia with a WBC count of 1.8 on 10/26/2018, is consistent with reactive change due to underlying infection. She has evidence of 15% bands. She is admitted for chronic obstructive pulmonary disease exacerbation and she has been started on IV antibiotics. WBC improved 5.8 on 10/27/18. 2. Chronic obstructive pulmonary disease exacerbation. Appreciate pulmonary consultation and management. Dyspnea and wheezing persistent.. Comment Review of Relevant I have reviewed the following items jon (where applicable) has been applied. Labs Microbiology 10/25/18 Blood Culture - Preliminary, Resulted NO GROWTH AFTER 4 DAYS Medications Current Medications Albuterol/ Ipratropium (Duoneb) 3 ml 1X ONCE NEB Last administered on at 16:13; Start 10/25/18 at 16:00; Stop 10/25/18 at 16:01; Status DC Methylprednisolone Sodium Succinate (SOLU-Medrol 125MG VIAL) 125 mg 1X ONCE IV Last administered on 10/25/18at 16:16; Start 10/25/18 at 16:00; Stop 10/25/18 at 16:01; Status DC Acetaminophen (Tylenol) 650 mg 1X ONCE PO Last administered on 10/25/18at 16:14 ; Start 10/25/18 at 16:00; Stop 10/25/18 at 16:01; Status DC Sodium Chloride 1,000 ml @ 1,000 mls/hr 1X ONCE IV Last administered on at 16:36; Start 10/25/18 at 16:45; Stop 10/25/18 at 17:50; Status DC Ceftriaxone Sodium (Rocephin) 1 gm 1X ONCE IVP ; Start 10/25/18 at 17:00; Stop 10/25/18 at 17:01; Status UNV Azithromycin 250 ml @ 250 mls/hr 1X ONCE IV ; Start 10/25/18 at 17:00; Stop at 17:59; Status Cancel Albuterol/ Ipratropium (Duoneb) 3 ml 1X ONCE NEB Last administered on at 18:00; Start 10/25/18 at 17:00; Stop 10/25/18 at 17:06; Status DC Levofloxacin/ Dextrose 150 ml @ 100 mls/hr 1X ONCE IV Last administered on at 17:58; Start 10/25/18 at 17:15; Stop 10/25/18 at 18:44; Status DC Acetaminophen (Tylenol) 650 mg PRN Q4HRS PRN PO FEVER; Start 10/25/18 at 17:15 ; Stop 10/26/18 at 17:14; Status DC Albuterol/ Ipratropium (Duoneb) 3 ml RTQID NEB Last administered on 10/26/18at 15:14; Start 10/25/18 at 20:00; Stop 10/26/18 at 20:12; Status DC Benzonatate (Tessalon Perle) 100 mg [id number] PO Last administered on 10/30/18at 08 :40; Start 10/25/18 at 21:00 Guaifenesin (Robitussin Dm) 10 ml PRN Q6HRS PRN PO COUGH 1ST CHOICE Last administered on 10/27/18at 21:26; Start 10/25/18 at 17:30; Stop 10/28/18 at 09:54 ; Status DC Diphenhydramine HCl (Benadryl) 25 mg PRN QHS PRN PO INSOMNIA; Start 10/25/18 at 17:30 Ondansetron HCl (Zofran) 4 mg PRN Q6HRS PRN IV NAUSEA/VOMITING; Start 10/25/18 at 17:30 Ondansetron HCl (Zofran Odt) 4 mg PRN Q6HRS PRN PO NAUSEA/VOMITING; Start 10/25 at 17:30 Amitriptyline HCl (Elavil) 20 mg QHS PO Last administered on 10/29/18 21:03; Start 10/25/18 at 21:00 Aspirin (Ecotrin) 81 mg DAILY07 PO Last administered on 10/30/18 05:54; Start 10/25/18 at 18:00 Atorvastatin Calcium (Lipitor) 20 mg HS PO Last administered on 10/29/18 21:03 ; Start 10/25/18 at 21:00 Vitamin D (Vitamin D3) 1,000 unit DAILY PO Last administered on 10/30/18 08:40 ; Start 10/25/18 at 18:00 Ferrous Sulfate (Feosol) 325 mg DAILY08 PO Last administered on 10/30/18 08:00 ; Start 10/25/18 at 18:00 Gabapentin (Neurontin) 100 mg TID PO Last administered on 10/30/18 08:39; Start 10/25/18 at 21:00 Acetaminophen/ Hydrocodone Bitart (Lortab 10/325) 1 tab PRN Q6HRS PRN PO MODERATE-SEVERE PAIN Last administered on 10/29/18 17:50; Start 10/25/18 at 17: 30 Acetaminophen/ Hydrocodone Bitart (Lortab 5/325) 1 tab QID PO Last administered on 10/30/18 08:43; Start 10/25/18 at 21:00 Metoprolol Succinate (Toprol Xl) 12.5 mg DAILY PO Last administered on 08:43; Start 10/25/18 at 18:00 Oxycodone/ Acetaminophen (Percocet 5/325) 1 tab PRN Q6HRS PRN PO PAIN severe 2nd choice Last administered on 10/28/18 04:54; Start 10/25/18 at 17:30 Pantoprazole Sodium (Protonix) 40 mg DAILY07 PO Last administered on 10/30/18 05:54; Start 10/25/18 at 18:00 Potassium Citrate (Urocit-K) 20 meq DAILY08 PO Last administered on 10/30/18 08:01; Start 10/25/18 at 18:00 Non-Formulary Medication (Alendronate Sodium ) 1 tab WEEKLY PO ; Start 11/01/18 at 09:00; Status UNV Levothyroxine Sodium (Synthroid) 50 mcg DAILY06 PO Last administered on at 05:54; Start 10/25/18 at 18:00 Non-Formulary Medication (Ondansetron (Zofran Odt)) 8 mg BID PRN PO NAUSEA/ VOMITING; Start 10/25/18 at 17:30; Status UNV Roflumilast (Daliresp) 500 mcg DAILY PO Last administered on 10/30/18at 08:40; Start 10/25/18 at 18:00 Ropinirole HCl (Requip) 3 mg QHS PO Last administered on 10/29/18at 21:03; Start 10/25/18 at 21:00 Torsemide (Demadex) 20 mg DAILY PO Last administered on 10/30/18at 08:40; Start 10/25/18 at 18:00 Albuterol Sulfate (Ventolin Neb Soln) 2.5 mg PRN Q4HRS PRN NEB SHORTNESS OF BREATH; Start 10/25/18 at 18:15 Methylprednisolone Sodium Succinate (SOLU-Medrol 40MG VIAL) 60 mg Q8HRS IV Last administered on 10/29/18at 06:10; Start 10/25/18 at 22:00; Stop 10/29/18 at 08:39; Status DC Temazepam (Restoril) 7.5 mg PRN QHS PRN PO INSOMNIA; Start 10/25/18 at 20:00 Levofloxacin/ Dextrose (Levaquin Per Pharmacy) 1 each PRN DAILY PRN [facility] SEE COMMENTS; Start 10/25/18 at 20:00; Status Cancel Levofloxacin/ Dextrose 50 ml @ 50 mls/hr Q24H IV ; Start 10/26/18 at 17:00; Stop 10/26/18 at 17:00; Status DC Levofloxacin (Levaquin) 500 mg DAILY16 PO Last administered on 10/29/18at 17:51 ; Start 10/26/18 at 16:00 Levofloxacin/ Dextrose (Levaquin Per Pharmacy) 1 each PRN DAILY PRN [facility] SEE COMMENTS; Start 10/26/18 at 08:15 Lactobacillus Rhamnosus (Culturelle) 1 cap BID PO Last administered on at 08:48; Start 10/26/18 at 21:00; Stop 10/28/18 at 10:06; Status DC Albuterol/ Ipratropium (Duoneb) 3 ml RTQID NEB Last administered on 10/30/18at 07:50; Start 10/26/18 at 20:00 Throat Lozenges (Chloraseptic) 1 spray PRN Q2HR PRN PO SORE THROAT Last administered on 10/27/18at 16:43; Start 10/27/18 at 11:15 Fluticasone Propionate (Flonase) 2 spray DAILY NS Last administered on at 08:39; Start 10/28/18 at 09:00 Guaifenesin (Robitussin Dm) 10 ml PRN Q6HRS PRN PO COUGH; Start 10/28/18 at 10: 00 Throat Lozenges (Cepacol Sore Throat Lozenge) 1 venancio PRN Q2HRS PRN PO SORE THROAT; Start 10/28/18 at 10:00 Methylprednisolone Sodium Succinate (SOLU-Medrol 40MG VIAL) 80 mg Q8HRS IV Last administered on 10/30/18at 05:54; Start 10/29/18 at 14:00 Active Scripts Active Prednisone (Prednisone) 10 Mg Tablet 30 Mg PO DAILY Mucinex (Guaifenesin) 600 Mg Tablet.er 600 Mg PO BID Hydrocodone-Apap 10-325 (Hydrocodone Bit/Acetaminophen) 1 Each Tablet 1 Tab PO PRN Q6HRS PRN Doxycycline Hyclate 100 Mg Tablet 100 Mg PO BID 5 Days [place] 5-325 Tablet (Acetaminophen/Hydrocodone Bitart) 1 Each Tablet 1-2 Tab PO Q4-6HRS Reported Percocet 5-325 Mg Tablet (Oxycodone/Acetaminophen) 1 Each Tablet 1 Tab PO PRN Q6HRS PRN Zofran Odt (Ondansetron) 8 Mg Tab.rapdis 8 Mg PO BID PRN Aspir 81 (Aspirin) 81 Mg Tablet.dr 1 Tab PO DAILY Metoprolol Succinate ( Xl ) (Metoprolol Succinate) 25 Mg Tab.er.24h 12.5 Mg PO DAILY Vitamin D3 (Cholecalciferol (Vitamin D3)) 1,000 Unit Tablet 1 Tab PO DAILY Torsemide 20 Mg Tablet 1 Tab PO DAILY Gabapentin (Gabapentin) 100 Mg Capsule 100 Mg PO TID Ferrous Sulfate 325 Mg Tablet 1 Tab PO DAILY Daliresp (Roflumilast) 500 Mcg Tablet 1 Tab PO DAILY Atorvastatin Calcium 20 Mg Tablet 20 Mg PO HS Amitriptyline Hcl 10 Mg Tablet 1-2 Tab PO QHS Alendronate Sodium 70 Mg Tablet 1 Tab PO WEEKLY Requip (Ropinirole Hcl) 1 Mg Tablet 3 Tab PO QHS Proair Hfa Inhaler (Albuterol Sulfate) 8.5 Gm Hfa.aer.ad 1 Puff INH PRN Q6HRS PRN Potassium Citrate 10 Meq Tablet.er 20 Meq PO DAILY Protonix (Pantoprazole Sodium) 40 Mg Tablet.dr 1 Tab PO DAILY Lidocaine 1 Each Adh..patch 1 Each TP Levothyroxine Sodium 50 Mcg Tablet 1 Tab PO DAILY Vitals/I & O Vital Sign - Last 24 Hours 10/29/18 10/29/18 10/29/18 10/29/18 09:03 09:04 11:16 11:33 Pulse 72 Resp 18 18 B/P (MAP) 124/65 Pulse Ox 97 O2 Delivery Nasal Cannula Nasal Cannula Nasal Cannula O2 Flow Rate 2.0 2.0 2.0 10/29/18 10/29/18 10/29/18 10/29/18 13:38 14:38 15:00 15:57 Temp 98.4 98.4 Pulse 98 Resp 18 18 18 B/P (MAP) 102/48 (66) Pulse Ox 97 90 97 O2 Delivery Nasal Cannula Room Air Nasal Cannula O2 Flow Rate 2.0 2.0 10/29/18 10/29/18 10/29/18 10/29/18 17:50 18:50 19:00 19:22 Temp 98.0 98.0 Pulse 100 Resp 18 18 B/P (MAP) 118/62 (80) Pulse Ox 97 93 97 O2 Delivery Nasal Cannula Nasal Cannula Nasal Cannula Nasal Cannula O2 Flow Rate 2.0 2.0 2.0 2.0 10/29/18 10/29/18 10/29/18 10/29/18 19:42 21:06 22:06 23:00 Temp 98.3 98.3 Pulse 86 Resp 18 B/P (MAP) 132/69 (90) Pulse Ox 97 97 93 O2 Delivery Nasal Cannula Nasal Cannula Nasal Cannula Nasal Cannula O2 Flow Rate 2.0 2.0 2.0 2.0 10/30/18 10/30/18 10/30/18 10/30/18 03:00 07:52 07:58 08:43 Temp 98.2 98.5 98.2 98.5 Pulse 71 76 Resp 18 20 B/P (MAP) 122/62 (82) 129/66 (87) Pulse Ox 94 98 95 O2 Delivery Nasal Cannula Nasal Cannula Nasal Cannula Nasal Cannula O2 Flow Rate 2.0 2.0 2.0 2.0 10/30/18 08:43 Pulse 76 B/P (MAP) 129/66 Intake and Output 10/29/18 10/29/18 10/30/18 15:01 23:01 07:01 Intake Total 600 ml 360 ml Balance 600 ml 360 ml NEGRITO ARREOLA MD Oct 30, 2018 08:57
--- NOTE | 2018-10-30 11:51 | PDOC ---
PROGRESS NOTES Chief Complaint Chief Complaint Severe acute exacerbation of COPD She is admitted for chronic obstructive pulmonary disease exacerbation , started on IV antibiotics. WBC improved 5.8 on 10/27/18. sepsis known Immune deficiency, NOS, got IgG infusion at home 10/25, per [facility] vasomotor nephropathy, in the background of diuretic use- HTN-chronic stable Hypothyroidism on replacement Dyslipidemia on statin malnutrition, POA, serum alb 2.8 History of Present Illness History of Present Illness still weak, marked dyspnea with any exertion less cough, creatinine improved Vitals Vitals Vital Signs Date Time Temp Pulse Resp B/P (MAP) Pulse Ox O2 Delivery O2 Flow Rate FiO2 10/30/18 10:00 95 Nasal Cannula 2.0 10/30/18 08:43 76 129/66 10/30/18 07:58 98.5 20 98.5 Physical Exam General: Alert, Oriented X3 Heart: Normal S1, Normal S2 Lungs: Wheezing, Other (few rhonchi) Abdomen: Normal bowel sounds, Soft, No tenderness, No hepatosplenomegaly, No masses Extremities: No clubbing, No cyanosis, No edema, Normal pulses, No tenderness/ swelling Skin: No rashes, No breakdown, No significant lesion Labs LABS CT of the chest without contrast, 10/26/2018: HISTORY: Pneumonia, interstitial lung disease Noncontrast scans were obtained as requested. Artifacts arising from a cardiac pacing device degrade image quality in the mediastinum. There is mild calcific plaquing of the aorta without evidence of aneurysm. No mediastinal adenopathy is seen. Several scattered lucencies in the lungs are compatible with emphysema. There are unchanged mild scattered linear and reticular opacities compatible with scarring scarring. A component of chronic or recurrent atelectasis cannot be excluded. No pulmonary mass or dense consolidation is seen. There is no evidence of pleural fluid. IMPRESSION: 1. Mild emphysema with parenchymal scarring. 2. No acute cardiopulmonary abnormality is detected. PQRS Compliance Statement: One or more of the following individualized dose reduction techniques were utilized for this examination: 1. Automated exposure control 2. Adjustment of the mA and/or kV according to patient size 3. Use of iterative reconstruction technique Electronically signed by: Jace Mcdonald MD (10/26/2018 2:25 PM) [facility] Assessment and Plan Assessmemt and Plan Problems Medical Problems: (1) Bandemia Status: Acute (2) COPD exacerbation Status: Acute Comment Review of Relevant I have reviewed the following items jon (where applicable) has been applied. Labs Microbiology 10/25/18 Blood Culture - Preliminary, Resulted NO GROWTH AFTER 4 DAYS Medications Current Medications Albuterol/ Ipratropium (Duoneb) 3 ml 1X ONCE NEB Last administered on at 16:13; Start 10/25/18 at 16:00; Stop 10/25/18 at 16:01; Status DC Methylprednisolone Sodium Succinate (SOLU-Medrol 125MG VIAL) 125 mg 1X ONCE IV Last administered on 10/25/18at 16:16; Start 10/25/18 at 16:00; Stop 10/25/18 at 16:01; Status DC Acetaminophen (Tylenol) 650 mg 1X ONCE PO Last administered on 10/25/18at 16:14 ; Start 10/25/18 at 16:00; Stop 10/25/18 at 16:01; Status DC Sodium Chloride 1,000 ml @ 1,000 mls/hr 1X ONCE IV Last administered on at 16:36; Start 10/25/18 at 16:45; Stop 10/25/18 at 17:50; Status DC Ceftriaxone Sodium (Rocephin) 1 gm 1X ONCE IVP ; Start 10/25/18 at 17:00; Stop 10/25/18 at 17:01; Status UNV Azithromycin 250 ml @ 250 mls/hr 1X ONCE IV ; Start 10/25/18 at 17:00; Stop at 17:59; Status Cancel Albuterol/ Ipratropium (Duoneb) 3 ml 1X ONCE NEB Last administered on at 18:00; Start 10/25/18 at 17:00; Stop 10/25/18 at 17:06; Status DC Levofloxacin/ Dextrose 150 ml @ 100 mls/hr 1X ONCE IV Last administered on at 17:58; Start 10/25/18 at 17:15; Stop 10/25/18 at 18:44; Status DC Acetaminophen (Tylenol) 650 mg PRN Q4HRS PRN PO FEVER; Start 10/25/18 at 17:15 ; Stop 10/26/18 at 17:14; Status DC Albuterol/ Ipratropium (Duoneb) 3 ml RTQID NEB Last administered on 10/26/18 15:14; Start 10/25/18 at 20:00; Stop 10/26/18 at 20:12; Status DC Benzonatate (Tessalon Perle) 100 mg [id number] PO Last administered on 10/30/18 08 :40; Start 10/25/18 at 21:00 Guaifenesin (Robitussin Dm) 10 ml PRN Q6HRS PRN PO COUGH 1ST CHOICE Last administered on 10/27/18 21:26; Start 10/25/18 at 17:30; Stop 10/28/18 at 09:54 ; Status DC Diphenhydramine HCl (Benadryl) 25 mg PRN QHS PRN PO INSOMNIA; Start 10/25/18 at 17:30 Ondansetron HCl (Zofran) 4 mg PRN Q6HRS PRN IV NAUSEA/VOMITING; Start 10/25/18 at 17:30 Ondansetron HCl (Zofran Odt) 4 mg PRN Q6HRS PRN PO NAUSEA/VOMITING; Start 10/25 at 17:30 Amitriptyline HCl (Elavil) 20 mg QHS PO Last administered on 10/29/18 21:03; Start 10/25/18 at 21:00 Aspirin (Ecotrin) 81 mg DAILY07 PO Last administered on 10/30/18 05:54; Start 10/25/18 at 18:00 Atorvastatin Calcium (Lipitor) 20 mg HS PO Last administered on 10/29/18 21:03 ; Start 10/25/18 at 21:00 Vitamin D (Vitamin D3) 1,000 unit DAILY PO Last administered on 10/30/18 08:40 ; Start 10/25/18 at 18:00 Ferrous Sulfate (Feosol) 325 mg DAILY08 PO Last administered on 10/30/18 08:00 ; Start 10/25/18 at 18:00 Gabapentin (Neurontin) 100 mg TID PO Last administered on 10/30/18 08:39; Start 10/25/18 at 21:00 Acetaminophen/ Hydrocodone Bitart (Lortab 10/325) 1 tab PRN Q6HRS PRN PO MODERATE-SEVERE PAIN Last administered on 10/29/18 17:50; Start 10/25/18 at 17: 30 Acetaminophen/ Hydrocodone Bitart (Lortab 5/325) 1 tab QID PO Last administered on 10/30/18 08:43; Start 10/25/18 at 21:00 Metoprolol Succinate (Toprol Xl) 12.5 mg DAILY PO Last administered on 08:43; Start 10/25/18 at 18:00 Oxycodone/ Acetaminophen (Percocet 5/325) 1 tab PRN Q6HRS PRN PO PAIN severe 2nd choice Last administered on 10/28/18 04:54; Start 10/25/18 at 17:30 Pantoprazole Sodium (Protonix) 40 mg DAILY07 PO Last administered on 10/30/18 05:54; Start 10/25/18 at 18:00 Potassium Citrate (Urocit-K) 20 meq DAILY08 PO Last administered on 10/30/18 08:01; Start 10/25/18 at 18:00 Non-Formulary Medication (Alendronate Sodium ) 1 tab WEEKLY PO ; Start 11/01/18 at 09:00; Status UNV Levothyroxine Sodium (Synthroid) 50 mcg DAILY06 PO Last administered on 05:54; Start 10/25/18 at 18:00 Non-Formulary Medication (Ondansetron (Zofran Odt)) 8 mg BID PRN PO NAUSEA/ VOMITING; Start 10/25/18 at 17:30; Status UNV Roflumilast (Daliresp) 500 mcg DAILY PO Last administered on 10/30/18 08:40; Start 10/25/18 at 18:00 Ropinirole HCl (Requip) 3 mg QHS PO Last administered on 10/29/18 21:03; Start 10/25/18 at 21:00 Torsemide (Demadex) 20 mg DAILY PO Last administered on 10/30/18 08:40; Start 10/25/18 at 18:00 Albuterol Sulfate (Ventolin Neb Soln) 2.5 mg PRN Q4HRS PRN NEB SHORTNESS OF BREATH; Start 10/25/18 at 18:15 Methylprednisolone Sodium Succinate (SOLU-Medrol 40MG VIAL) 60 mg Q8HRS IV Last administered on 10/29/18 06:10; Start 10/25/18 at 22:00; Stop 10/29/18 at 08:39; Status DC Temazepam (Restoril) 7.5 mg PRN QHS PRN PO INSOMNIA; Start 10/25/18 at 20:00 Levofloxacin/ Dextrose (Levaquin Per Pharmacy) 1 each PRN DAILY PRN [facility] SEE COMMENTS; Start 10/25/18 at 20:00; Status Cancel Levofloxacin/ Dextrose 50 ml @ 50 mls/hr Q24H IV ; Start 10/26/18 at 17:00; Stop 10/26/18 at 17:00; Status DC Levofloxacin (Levaquin) 500 mg DAILY16 PO Last administered on 10/29/18at 17:51 ; Start 10/26/18 at 16:00 Levofloxacin/ Dextrose (Levaquin Per Pharmacy) 1 each PRN DAILY PRN [facility] SEE COMMENTS; Start 10/26/18 at 08:15 Lactobacillus Rhamnosus (Culturelle) 1 cap BID PO Last administered on at 08:48; Start 10/26/18 at 21:00; Stop 10/28/18 at 10:06; Status DC Albuterol/ Ipratropium (Duoneb) 3 ml RTQID NEB Last administered on 10/30/18at 07:50; Start 10/26/18 at 20:00 Throat Lozenges (Chloraseptic) 1 spray PRN Q2HR PRN PO SORE THROAT Last administered on 10/27/18at 16:43; Start 10/27/18 at 11:15 Fluticasone Propionate (Flonase) 2 spray DAILY NS Last administered on at 08:39; Start 10/28/18 at 09:00 Guaifenesin (Robitussin Dm) 10 ml PRN Q6HRS PRN PO COUGH; Start 10/28/18 at 10: 00 Throat Lozenges (Cepacol Sore Throat Lozenge) 1 venancio PRN Q2HRS PRN PO SORE THROAT; Start 10/28/18 at 10:00 Methylprednisolone Sodium Succinate (SOLU-Medrol 40MG VIAL) 80 mg Q8HRS IV Last administered on 10/30/18at 05:54; Start 10/29/18 at 14:00 Active Scripts Active Prednisone (Prednisone) 10 Mg Tablet 30 Mg PO DAILY Mucinex (Guaifenesin) 600 Mg Tablet.er 600 Mg PO BID Hydrocodone-Apap 10-325 (Hydrocodone Bit/Acetaminophen) 1 Each Tablet 1 Tab PO PRN Q6HRS PRN Doxycycline Hyclate 100 Mg Tablet 100 Mg PO BID 5 Days [place] 5-325 Tablet (Acetaminophen/Hydrocodone Bitart) 1 Each Tablet 1-2 Tab PO Q4-6HRS Reported Percocet 5-325 Mg Tablet (Oxycodone/Acetaminophen) 1 Each Tablet 1 Tab PO PRN Q6HRS PRN Zofran Odt (Ondansetron) 8 Mg Tab.rapdis 8 Mg PO BID PRN Aspir 81 (Aspirin) 81 Mg Tablet. 1 Tab PO DAILY Metoprolol Succinate ( Xl ) (Metoprolol Succinate) 25 Mg Tab.er.24h 12.5 Mg PO DAILY Vitamin D3 (Cholecalciferol (Vitamin D3)) 1,000 Unit Tablet 1 Tab PO DAILY Torsemide 20 Mg Tablet 1 Tab PO DAILY Gabapentin (Gabapentin) 100 Mg Capsule 100 Mg PO TID Ferrous Sulfate 325 Mg Tablet 1 Tab PO DAILY Daliresp (Roflumilast) 500 Mcg Tablet 1 Tab PO DAILY Atorvastatin Calcium 20 Mg Tablet 20 Mg PO HS Amitriptyline Hcl 10 Mg Tablet 1-2 Tab PO QHS Alendronate Sodium 70 Mg Tablet 1 Tab PO WEEKLY Requip (Ropinirole Hcl) 1 Mg Tablet 3 Tab PO QHS Proair Hfa Inhaler (Albuterol Sulfate) 8.5 Gm Hfa.aer.ad 1 Puff INH PRN Q6HRS PRN Potassium Citrate 10 Meq Tablet.er 20 Meq PO DAILY Protonix (Pantoprazole Sodium) 40 Mg Tablet. 1 Tab PO DAILY Lidocaine 1 Each Adh..patch 1 Each TP Levothyroxine Sodium 50 Mcg Tablet 1 Tab PO DAILY Vitals/I & O Vital Sign - Last 24 Hours 10/29/18 10/29/18 10/29/18 10/29/18 13:38 14:38 15:00 15:57 Temp 98.4 98.4 Pulse 98 Resp 18 18 18 B/P (MAP) 102/48 (66) Pulse Ox 97 90 97 O2 Delivery Nasal Cannula Room Air Nasal Cannula O2 Flow Rate 2.0 2.0 10/29/18 10/29/18 10/29/18 10/29/18 17:50 18:50 19:00 19:22 Temp 98.0 98.0 Pulse 100 Resp 18 18 B/P (MAP) 118/62 (80) Pulse Ox 97 93 97 O2 Delivery Nasal Cannula Nasal Cannula Nasal Cannula Nasal Cannula O2 Flow Rate 2.0 2.0 2.0 2.0 10/29/18 10/29/18 10/29/18 10/30/18 19:42 21:06 23:00 03:00 Temp 98.3 98.2 98.3 98.2 Pulse 86 71 Resp 18 18 B/P (MAP) 132/69 (90) 122/62 (82) Pulse Ox 97 93 94 O2 Delivery Nasal Cannula Nasal Cannula Nasal Cannula Nasal Cannula O2 Flow Rate 2.0 2.0 2.0 2.0 10/30/18 10/30/18 10/30/18 10/30/18 07:50 07:52 07:58 08:43 Temp 98.5 98.5 Pulse 76 Resp 20 B/P (MAP) 129/66 (87) Pulse Ox 98 95 O2 Delivery Nasal Cannula Nasal Cannula Nasal Cannula Nasal Cannula O2 Flow Rate 2.0 2.0 2.0 2.0 10/30/18 10/30/18 08:43 10:00 Pulse 76 B/P (MAP) 129/66 Pulse Ox 95 O2 Delivery Nasal Cannula O2 Flow Rate 2.0 Intake and Output 10/29/18 10/29/18 10/30/18 15:01 23:01 07:01 Intake Total 600 ml 360 ml Balance 600 ml 360 ml CAMILA MORELOS MD Oct 30, 2018 11:51
[2018-10-30 11:55] VITALS: BP 117/58
[2018-10-30 15:34] VITALS: BP 101/45
[2018-10-30 19:00] VITALS: BP 122/53
[2018-10-30] MEDS: rOPINIRole 1 MG TABLET. PO SCH (21:11)
[2018-10-30] MEDS: AMITRIPTYLINE HCL 10 MG TABLET. PO SCH (21:11)
[2018-10-30] MEDS: ATORVASTATIN CALCIUM 20 MG TABLET PO SCH (21:11)
[2018-10-30] MEDS: HYDROcodone/APAP 10/325 1 TAB TABLET PO PRN (21:12)
[2018-10-30 23:00] VITALS: BP 126/49
[2018-10-31] VITALS (7 sets, daily range): BP systolic 113–133; BP diastolic 43–62
[2018-10-31] MEDS: LEVOTHYROXINE 50 MCG TABLET PO SCH (05:05)
[2018-10-31] MEDS: ASPIRIN ENTERIC COATED 81 MG TABLET.DR. PO SCH (05:05)
[2018-10-31] MEDS: PANTOPRAZOLE 40 MG TABLET.DR. PO SCH (05:05)
[2018-10-31] MEDS: methylPREDNISolone SOD SUCC PF 40 MG/ML VIAL. IV SCH ×3 (05:05→21:10)
[2018-10-31 06:41] LABS: BASO % 0 % (0-3); EOS % 0 % (0-3); HEMATOCRIT 33.5 % (36.0-47.0); HEMOGLOBIN 11.4 g/dL (12.0-15.5); LYMPH # 0.7 x10^3/uL (1.0-4.8); LYMPH % 13 % (24-48); MEAN CORPUSCULAR HEMOGLOBIN 32 pg (25-35); MEAN CORPUSCULAR HGB CONC 34 g/dL (31-37); MEAN CORPUSCULAR VOLUME 94 fL (79-100); MONO # 0.3 x10^3/uL (0.0-1.1); MONO % 5 % (0-9); NEUT # 4.1 x10^3uL (1.8-7.7); NEUT % 81 % (31-73); PLATELET COUNT 155 x10^3/uL (140-400); RED BLOOD COUNT 3.58 x10^6/uL (3.50-5.40); WHITE BLOOD COUNT 5.1 x10^3/uL (4.0-11.0)
[2018-10-31 07:03] LABS: ALBUMIN 2.6 g/dL (3.4-5.0); ALBUMIN/GLOBULIN RATIO 0.7 (1.0-1.7); CALCIUM 9.1 mg/dL (8.5-10.1); CREATININE 1.3 mg/dL (0.6-1.0); GFR 41.2; POTASSIUM 4.9 mmol/L (3.5-5.1); TOTAL BILIRUBIN 0.3 mg/dL (0.2-1.0); TOTAL PROTEIN 6.5 g/dL (6.4-8.2)
[2018-10-31] MEDS: IPRATRPIUM/ALBUTEROL 0.5/2.5MG 3 ML NEBU. NEB SCH ×4 (07:34→19:54)
[2018-10-31] MEDS: ROFLUMILAST 500 MCG TABLET. PO SCH (08:02)
[2018-10-31] MEDS: BENZONATATE 100 MG CAPSULE. PO SCH ×3 (08:02→21:09)
[2018-10-31] MEDS: POTASSIUM CITRATE 10 MEQ TABLET.ER PO SCH (08:02)
[2018-10-31] MEDS: CHOLECALCIFEROL (VITAMIN D3) 1,000 UNIT TABLET PO SCH (08:02)
[2018-10-31] MEDS: HYDROcodone/APAP 5/325MG 1 TAB TABLET PO SCH ×4 (08:03→21:09)
[2018-10-31] MEDS: FERROUS SULFATE 325 MG TABLET. PO SCH (08:03)
[2018-10-31] MEDS: TORSEMIDE 20 MG TABLET. PO SCH (08:03)
[2018-10-31] MEDS: GABAPENTIN 100 MG CAPSULE. PO SCH ×3 (08:03→21:09)
[2018-10-31] MEDS: METOPROLOL SUCC 24HR ER 25 MG TAB.ER.24H. PO SCH (08:13)
[2018-10-31] MEDS: FLUTICASONE 50MCG/NASAL SPRAY 16GM BOTTLE. NS SCH (08:15)
--- NOTE | 2018-10-31 08:50 | PDOC ---
PULMONARY PROGRESS NOTES Subjective PT STILL SOA AND WHEEZE Vitals Vital Signs Date Time Temp Pulse Resp B/P (MAP) Pulse Ox O2 Delivery O2 Flow Rate FiO2 10/31/18 08:13 85 121/58 10/31/18 08:03 Nasal Cannula 2.0 10/31/18 07:34 99 10/31/18 07:00 98.3 18 98.3 ROS: No Nausea General: Alert, No acute distress Lungs: Wheezing Cardiovascular: S1, S2 Abdomen: Soft, Non-tender Neuro Exam: Alert Extremities: No Edema Skin: Warm Labs Laboratory Tests Test 10/31/18 04:40 White Blood Count 5.1 x10^3/uL (4.0-11.0) Red Blood Count 3.58 x10^6/uL (3.50-5.40) Hemoglobin 11.4 g/dL (12.0-15.5) Hematocrit 33.5 % (36.0-47.0) Mean Corpuscular Volume 94 fL (79-100) Mean Corpuscular Hemoglobin 32 pg (25-35) Mean Corpuscular Hemoglobin Concent 34 g/dL (31-37) Red Cell Distribution Width 13.0 % (11.5-14.5) Platelet Count 155 x10^3/uL (140-400) Neutrophils (%) (Auto) 81 % (31-73) Lymphocytes (%) (Auto) 13 % (24-48) Monocytes (%) (Auto) 5 % (0-9) Eosinophils (%) (Auto) 0 % (0-3) Basophils (%) (Auto) 0 % (0-3) Neutrophils # (Auto) 4.1 x10^3uL (1.8-7.7) Lymphocytes # (Auto) 0.7 x10^3/uL (1.0-4.8) Monocytes # (Auto) 0.3 x10^3/uL (0.0-1.1) Eosinophils # (Auto) 0.0 x10^3/uL (0.0-0.7) Basophils # (Auto) 0.0 x10^3/uL (0.0-0.2) Sodium Level 139 mmol/L (136-145) Potassium Level 4.9 mmol/L (3.5-5.1) Chloride Level 96 mmol/L (98-107) Carbon Dioxide Level 42 mmol/L (21-32) Anion Gap 1 (6-14) Blood Urea Nitrogen 27 mg/dL (7-20) Creatinine 1.3 mg/dL (0.6-1.0) Estimated GFR (Cockcroft-Gault) 41.2 BUN/Creatinine Ratio 21 (6-20) Glucose Level 176 mg/dL (70-99) Calcium Level 9.1 mg/dL (8.5-10.1) Total Bilirubin 0.3 mg/dL (0.2-1.0) Aspartate Amino Transf (AST/SGOT) 31 U/L (15-37) Alanine Aminotransferase (ALT/SGPT) 23 U/L (14-59) Alkaline Phosphatase 44 U/L (46-116) Total Protein 6.5 g/dL (6.4-8.2) Albumin 2.6 g/dL (3.4-5.0) Albumin/Globulin Ratio 0.7 (1.0-1.7) Laboratory Tests Test 10/31/18 04:40 White Blood Count 5.1 x10^3/uL (4.0-11.0) Red Blood Count 3.58 x10^6/uL (3.50-5.40) Hemoglobin 11.4 g/dL (12.0-15.5) Hematocrit 33.5 % (36.0-47.0) Mean Corpuscular Volume 94 fL (79-100) Mean Corpuscular Hemoglobin 32 pg (25-35) Mean Corpuscular Hemoglobin Concent 34 g/dL (31-37) Red Cell Distribution Width 13.0 % (11.5-14.5) Platelet Count 155 x10^3/uL (140-400) Neutrophils (%) (Auto) 81 % (31-73) Lymphocytes (%) (Auto) 13 % (24-48) Monocytes (%) (Auto) 5 % (0-9) Eosinophils (%) (Auto) 0 % (0-3) Basophils (%) (Auto) 0 % (0-3) Neutrophils # (Auto) 4.1 x10^3uL (1.8-7.7) Lymphocytes # (Auto) 0.7 x10^3/uL (1.0-4.8) Monocytes # (Auto) 0.3 x10^3/uL (0.0-1.1) Eosinophils # (Auto) 0.0 x10^3/uL (0.0-0.7) Basophils # (Auto) 0.0 x10^3/uL (0.0-0.2) Sodium Level 139 mmol/L (136-145) Potassium Level 4.9 mmol/L (3.5-5.1) Chloride Level 96 mmol/L (98-107) Carbon Dioxide Level 42 mmol/L (21-32) Anion Gap 1 (6-14) Blood Urea Nitrogen 27 mg/dL (7-20) Creatinine 1.3 mg/dL (0.6-1.0) Estimated GFR (Cockcroft-Gault) 41.2 BUN/Creatinine Ratio 21 (6-20) Glucose Level 176 mg/dL (70-99) Calcium Level 9.1 mg/dL (8.5-10.1) Total Bilirubin 0.3 mg/dL (0.2-1.0) Aspartate Amino Transf (AST/SGOT) 31 U/L (15-37) Alanine Aminotransferase (ALT/SGPT) 23 U/L (14-59) Alkaline Phosphatase 44 U/L (46-116) Total Protein 6.5 g/dL (6.4-8.2) Albumin 2.6 g/dL (3.4-5.0) Albumin/Globulin Ratio 0.7 (1.0-1.7) Medications Active Scripts Medications Dose Route/Sig Max Daily Dose Days Date Category Prednisone (Prednisone) 10 Mg Tablet 30 Mg PO DAILY 08/13/18 Rx Mucinex (Guaifenesin) 600 Mg Tablet.er 600 Mg PO BID 08/13/18 Rx Hydrocodone-Apap 10-325 (Hydrocodone Bit/Acetaminophen) 1 Each Tablet 1 Tab PO PRN Q6HRS PRN 08/13/18 Rx Doxycycline Hyclate 100 Mg Tablet 100 Mg PO BID 5 08/13/18 Rx Percocet 5-325 Mg Tablet (Oxycodone/Acetaminophen) 1 Each Tablet 1 Tab PO PRN Q6HRS PRN 08/09/18 Reported Zofran Odt (Ondansetron) 8 Mg Tab.rapdis 8 Mg PO BID PRN 08/09/18 Reported [place] 5-325 Tablet (Acetaminophen/Hydrocodone Bitart) 1 Each Tablet 1-2 Tab PO Q4-6HRS 06/24/18 Rx Aspir 81 (Aspirin) 81 Mg Tablet.dr 1 Tab PO DAILY 01/03/18 Reported Metoprolol Succinate ( Xl ) (Metoprolol Succinate) 25 Mg Tab.er.24h 12.5 Mg PO DAILY 01/03/18 Reported Vitamin D3 (Cholecalciferol (Vitamin D3)) 1,000 Unit Tablet 1 Tab PO DAILY 01/02/18 Reported Torsemide 20 Mg Tablet 1 Tab PO DAILY 01/02/18 Reported Gabapentin (Gabapentin) 100 Mg Capsule 100 Mg PO TID 01/02/18 Reported Ferrous Sulfate 325 Mg Tablet 1 Tab PO DAILY 09/23/17 Reported Daliresp (Roflumilast) 500 Mcg Tablet 1 Tab PO DAILY 09/23/17 Reported Atorvastatin Calcium 20 Mg Tablet 20 Mg PO HS 09/23/17 Reported Amitriptyline Hcl 10 Mg Tablet 1-2 Tab PO QHS 09/23/17 Reported Alendronate Sodium 70 Mg Tablet 1 Tab PO WEEKLY 09/23/17 Reported Requip (Ropinirole Hcl) 1 Mg Tablet 3 Tab PO QHS 09/23/17 Reported Proair Hfa Inhaler (Albuterol Sulfate) 8.5 Gm Hfa.aer.ad 1 Puff INH PRN Q6HRS PRN 09/23/17 Reported Potassium Citrate 10 Meq Tablet.er 20 Meq PO DAILY 09/23/17 Reported Protonix (Pantoprazole Sodium) 40 Mg Tablet.dr 1 Tab PO DAILY 09/23/17 Reported Lidocaine 1 Each Adh..patch 1 Each TP 09/23/17 Reported Levothyroxine Sodium 50 Mcg Tablet 1 Tab PO DAILY 09/23/17 Reported Impression . 1. Acute on chronic hypoxic respiratory failure secondary to acute exacerbation of chronic obstructive pulmonary/ VIRAL TRACHEOBRONCHITIS 2. 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 Leukopenia could be related to viral infection. improving. 3. Abnormal chest x-ray with prominent interstitial markings. This was a same pattern seen in the last year film as well. CT chest reviewed. There is no evidence of interstitial pneumonia or interstitial lung disease. 4. allergic rhinitis Plan . PT DOES NOT FEEL LIKE SHE IS GETTING GUERLINE WILL ASK PT FOR RECOMMENDATION ON POSSIBLE DC OR SNU INFORMED PT THAT IT MAY TAKE A WHILE FOR HER TO IMPROVE CONTINUE SUPPORT PT TO FOLLOW UP AT [facility] ONCE D/C LETICIA FORTUNE MD Oct 31, 2018 08:50
--- NOTE | 2018-10-31 08:57 | PDOC ---
PROGRESS NOTES Subjective Subjective HPI - f/u of Acute neutropenia ROS - has dyspnea Objective Objective Vital Signs Date Time Temp Pulse Resp B/P (MAP) Pulse Ox O2 Delivery O2 Flow Rate FiO2 10/31/18 08:13 85 121/58 10/31/18 08:03 Nasal Cannula 2.0 10/31/18 07:34 99 10/31/18 07:00 98.3 18 98.3 Intake and Output 10/31/18 07:01 Intake Total 940 ml Balance 940 ml Intake Oral 940 ml # Voids 5 Physical Exam Heart: Normal S1, Normal S2 General: Alert, Oriented X3, No acute distress Neuro: Normal speech Psych/Mental Status: Mental status NL Assessment Assessment Problems Medical Problems: (1) Bandemia Status: Acute (2) COPD exacerbation Status: Acute IMPRESSION AND PLAN: 1. Acute neutropenia with a WBC count of 1.8 on 10/26/2018, is consistent with reactive change due to underlying infection. She has evidence of 15% bands. She is admitted for chronic obstructive pulmonary disease exacerbation and she has been started on IV antibiotics. WBC improved 5.8 on 10/27/18. WBC 5.1 on 10/31/18 2. Chronic obstructive pulmonary disease exacerbation. Appreciate pulmonary consultation and management. Dyspnea and wheezing persistent.. Comment Review of Relevant I have reviewed the following items jon (where applicable) has been applied. Labs Laboratory Tests Test 10/31/18 04:40 White Blood Count 5.1 x10^3/uL (4.0-11.0) Red Blood Count 3.58 x10^6/uL (3.50-5.40) Hemoglobin 11.4 g/dL (12.0-15.5) Hematocrit 33.5 % (36.0-47.0) Mean Corpuscular Volume 94 fL (79-100) Mean Corpuscular Hemoglobin 32 pg (25-35) Mean Corpuscular Hemoglobin Concent 34 g/dL (31-37) Red Cell Distribution Width 13.0 % (11.5-14.5) Platelet Count 155 x10^3/uL (140-400) Neutrophils (%) (Auto) 81 % (31-73) Lymphocytes (%) (Auto) 13 % (24-48) Monocytes (%) (Auto) 5 % (0-9) Eosinophils (%) (Auto) 0 % (0-3) Basophils (%) (Auto) 0 % (0-3) Neutrophils # (Auto) 4.1 x10^3uL (1.8-7.7) Lymphocytes # (Auto) 0.7 x10^3/uL (1.0-4.8) Monocytes # (Auto) 0.3 x10^3/uL (0.0-1.1) Eosinophils # (Auto) 0.0 x10^3/uL (0.0-0.7) Basophils # (Auto) 0.0 x10^3/uL (0.0-0.2) Sodium Level 139 mmol/L (136-145) Potassium Level 4.9 mmol/L (3.5-5.1) Chloride Level 96 mmol/L (98-107) Carbon Dioxide Level 42 mmol/L (21-32) Anion Gap 1 (6-14) Blood Urea Nitrogen 27 mg/dL (7-20) Creatinine 1.3 mg/dL (0.6-1.0) Estimated GFR (Cockcroft-Gault) 41.2 BUN/Creatinine Ratio 21 (6-20) Glucose Level 176 mg/dL (70-99) Calcium Level 9.1 mg/dL (8.5-10.1) Total Bilirubin 0.3 mg/dL (0.2-1.0) Aspartate Amino Transf (AST/SGOT) 31 U/L (15-37) Alanine Aminotransferase (ALT/SGPT) 23 U/L (14-59) Alkaline Phosphatase 44 U/L (46-116) Total Protein 6.5 g/dL (6.4-8.2) Albumin 2.6 g/dL (3.4-5.0) Albumin/Globulin Ratio 0.7 (1.0-1.7) Laboratory Tests Test 10/31/18 04:40 White Blood Count 5.1 x10^3/uL (4.0-11.0) Red Blood Count 3.58 x10^6/uL (3.50-5.40) Hemoglobin 11.4 g/dL (12.0-15.5) Hematocrit 33.5 % (36.0-47.0) Mean Corpuscular Volume 94 fL (79-100) Mean Corpuscular Hemoglobin 32 pg (25-35) Mean Corpuscular Hemoglobin Concent 34 g/dL (31-37) Red Cell Distribution Width 13.0 % (11.5-14.5) Platelet Count 155 x10^3/uL (140-400) Neutrophils (%) (Auto) 81 % (31-73) Lymphocytes (%) (Auto) 13 % (24-48) Monocytes (%) (Auto) 5 % (0-9) Eosinophils (%) (Auto) 0 % (0-3) Basophils (%) (Auto) 0 % (0-3) Neutrophils # (Auto) 4.1 x10^3uL (1.8-7.7) Lymphocytes # (Auto) 0.7 x10^3/uL (1.0-4.8) Monocytes # (Auto) 0.3 x10^3/uL (0.0-1.1) Eosinophils # (Auto) 0.0 x10^3/uL (0.0-0.7) Basophils # (Auto) 0.0 x10^3/uL (0.0-0.2) Sodium Level 139 mmol/L (136-145) Potassium Level 4.9 mmol/L (3.5-5.1) Chloride Level 96 mmol/L (98-107) Carbon Dioxide Level 42 mmol/L (21-32) Anion Gap 1 (6-14) Blood Urea Nitrogen 27 mg/dL (7-20) Creatinine 1.3 mg/dL (0.6-1.0) Estimated GFR (Cockcroft-Gault) 41.2 BUN/Creatinine Ratio 21 (6-20) Glucose Level 176 mg/dL (70-99) Calcium Level 9.1 mg/dL (8.5-10.1) Total Bilirubin 0.3 mg/dL (0.2-1.0) Aspartate Amino Transf (AST/SGOT) 31 U/L (15-37) Alanine Aminotransferase (ALT/SGPT) 23 U/L (14-59) Alkaline Phosphatase 44 U/L (46-116) Total Protein 6.5 g/dL (6.4-8.2) Albumin 2.6 g/dL (3.4-5.0) Albumin/Globulin Ratio 0.7 (1.0-1.7) Microbiology 10/25/18 Blood Culture - Final, Complete NO GROWTH AFTER 5 DAYS Medications Current Medications Albuterol/ Ipratropium (Duoneb) 3 ml 1X ONCE NEB Last administered on at 16:13; Start 10/25/18 at 16:00; Stop 10/25/18 at 16:01; Status DC Methylprednisolone Sodium Succinate (SOLU-Medrol 125MG VIAL) 125 mg 1X ONCE IV Last administered on 10/25/18at 16:16; Start 10/25/18 at 16:00; Stop 10/25/18 at 16:01; Status DC Acetaminophen (Tylenol) 650 mg 1X ONCE PO Last administered on 10/25/18at 16:14 ; Start 10/25/18 at 16:00; Stop 10/25/18 at 16:01; Status DC Sodium Chloride 1,000 ml @ 1,000 mls/hr 1X ONCE IV Last administered on at 16:36; Start 10/25/18 at 16:45; Stop 10/25/18 at 17:50; Status DC Ceftriaxone Sodium (Rocephin) 1 gm 1X ONCE IVP ; Start 10/25/18 at 17:00; Stop 10/25/18 at 17:01; Status UNV Azithromycin 250 ml @ 250 mls/hr 1X ONCE IV ; Start 10/25/18 at 17:00; Stop at 17:59; Status Cancel Albuterol/ Ipratropium (Duoneb) 3 ml 1X ONCE NEB Last administered on at 18:00; Start 10/25/18 at 17:00; Stop 10/25/18 at 17:06; Status DC Levofloxacin/ Dextrose 150 ml @ 100 mls/hr 1X ONCE IV Last administered on at 17:58; Start 10/25/18 at 17:15; Stop 10/25/18 at 18:44; Status DC Acetaminophen (Tylenol) 650 mg PRN Q4HRS PRN PO FEVER; Start 10/25/18 at 17:15 ; Stop 10/26/18 at 17:14; Status DC Albuterol/ Ipratropium (Duoneb) 3 ml RTQID NEB Last administered on 10/26/18at 15:14; Start 10/25/18 at 20:00; Stop 10/26/18 at 20:12; Status DC Benzonatate (Tessalon Perle) 100 mg [id number] PO Last administered on 10/31/18 08 :02; Start 10/25/18 at 21:00 Guaifenesin (Robitussin Dm) 10 ml PRN Q6HRS PRN PO COUGH 1ST CHOICE Last administered on 10/27/18 21:26; Start 10/25/18 at 17:30; Stop 10/28/18 at 09:54 ; Status DC Diphenhydramine HCl (Benadryl) 25 mg PRN QHS PRN PO INSOMNIA; Start 10/25/18 at 17:30 Ondansetron HCl (Zofran) 4 mg PRN Q6HRS PRN IV NAUSEA/VOMITING; Start 10/25/18 at 17:30 Ondansetron HCl (Zofran Odt) 4 mg PRN Q6HRS PRN PO NAUSEA/VOMITING; Start 10/25 at 17:30 Amitriptyline HCl (Elavil) 20 mg QHS PO Last administered on 10/30/18 21:11; Start 10/25/18 at 21:00 Aspirin (Ecotrin) 81 mg DAILY07 PO Last administered on 10/31/18 05:05; Start 10/25/18 at 18:00 Atorvastatin Calcium (Lipitor) 20 mg HS PO Last administered on 10/30/18 21:11 ; Start 10/25/18 at 21:00 Vitamin D (Vitamin D3) 1,000 unit DAILY PO Last administered on 10/31/18 08:02 ; Start 10/25/18 at 18:00 Ferrous Sulfate (Feosol) 325 mg DAILY08 PO Last administered on 10/31/18 08:03 ; Start 10/25/18 at 18:00 Gabapentin (Neurontin) 100 mg TID PO Last administered on 10/31/18 08:03; Start 10/25/18 at 21:00 Acetaminophen/ Hydrocodone Bitart (Lortab 10/325) 1 tab PRN Q6HRS PRN PO MODERATE-SEVERE PAIN Last administered on 10/30/18 21:12; Start 10/25/18 at 17: 30 Acetaminophen/ Hydrocodone Bitart (Lortab 5/325) 1 tab QID PO Last administered on 10/31/18 08:03; Start 10/25/18 at 21:00 Metoprolol Succinate (Toprol Xl) 12.5 mg DAILY PO Last administered on 08:13; Start 10/25/18 at 18:00 Oxycodone/ Acetaminophen (Percocet 5/325) 1 tab PRN Q6HRS PRN PO PAIN severe 2nd choice Last administered on 10/28/18 04:54; Start 10/25/18 at 17:30 Pantoprazole Sodium (Protonix) 40 mg DAILY07 PO Last administered on 10/31/18 05:05; Start 10/25/18 at 18:00 Potassium Citrate (Urocit-K) 20 meq DAILY08 PO Last administered on 10/31/18 08:02; Start 10/25/18 at 18:00 Non-Formulary Medication (Alendronate Sodium ) 1 tab WEEKLY PO ; Start 11/01/18 at 09:00; Status UNV Levothyroxine Sodium (Synthroid) 50 mcg DAILY06 PO Last administered on 05:05; Start 10/25/18 at 18:00 Non-Formulary Medication (Ondansetron (Zofran Odt)) 8 mg BID PRN PO NAUSEA/ VOMITING; Start 10/25/18 at 17:30; Status UNV Roflumilast (Daliresp) 500 mcg DAILY PO Last administered on 10/31/18 08:02; Start 10/25/18 at 18:00 Ropinirole HCl (Requip) 3 mg QHS PO Last administered on 10/30/18at 21:11; Start 10/25/18 at 21:00 Torsemide (Demadex) 20 mg DAILY PO Last administered on 10/31/18 08:03; Start 10/25/18 at 18:00 Albuterol Sulfate (Ventolin Neb Soln) 2.5 mg PRN Q4HRS PRN NEB SHORTNESS OF BREATH; Start 10/25/18 at 18:15 Methylprednisolone Sodium Succinate (SOLU-Medrol 40MG VIAL) 60 mg Q8HRS IV Last administered on 10/29/18 06:10; Start 10/25/18 at 22:00; Stop 10/29/18 at 08:39; Status DC Temazepam (Restoril) 7.5 mg PRN QHS PRN PO INSOMNIA; Start 10/25/18 at 20:00 Levofloxacin/ Dextrose (Levaquin Per Pharmacy) 1 each PRN DAILY PRN MC SEE COMMENTS; Start 10/25/18 at 20:00; Status Cancel Levofloxacin/ Dextrose 50 ml @ 50 mls/hr Q24H IV ; Start 10/26/18 at 17:00; Stop 10/26/18 at 17:00; Status DC Levofloxacin (Levaquin) 500 mg DAILY16 PO Last administered on 10/30/18at 15:36 ; Start 10/26/18 at 16:00 Levofloxacin/ Dextrose (Levaquin Per Pharmacy) 1 each PRN DAILY PRN MC SEE COMMENTS; Start 10/26/18 at 08:15 Lactobacillus Rhamnosus (Culturelle) 1 cap BID PO Last administered on at 08:48; Start 10/26/18 at 21:00; Stop 10/28/18 at 10:06; Status DC Albuterol/ Ipratropium (Duoneb) 3 ml RTQID NEB Last administered on 10/31/18at 07:34; Start 10/26/18 at 20:00 Throat Lozenges (Chloraseptic) 1 spray PRN Q2HR PRN PO SORE THROAT Last administered on 10/27/18at 16:43; Start 10/27/18 at 11:15 Fluticasone Propionate (Flonase) 2 spray DAILY NS Last administered on at 08:15; Start 10/28/18 at 09:00 Guaifenesin (Robitussin Dm) 10 ml PRN Q6HRS PRN PO COUGH Last administered on at 21:11; Start 10/28/18 at 10:00 Throat Lozenges (Cepacol Sore Throat Lozenge) 1 venancio PRN Q2HRS PRN PO SORE THROAT; Start 10/28/18 at 10:00 Methylprednisolone Sodium Succinate (SOLU-Medrol 40MG VIAL) 80 mg Q8HRS IV Last administered on 10/31/18at 05:05; Start 10/29/18 at 14:00 Active Scripts Active Prednisone (Prednisone) 10 Mg Tablet 30 Mg PO DAILY Mucinex (Guaifenesin) 600 Mg Tablet.er 600 Mg PO BID Hydrocodone-Apap 10-325 (Hydrocodone Bit/Acetaminophen) 1 Each Tablet 1 Tab PO PRN Q6HRS PRN Doxycycline Hyclate 100 Mg Tablet 100 Mg PO BID 5 Days [place] 5-325 Tablet (Acetaminophen/Hydrocodone Bitart) 1 Each Tablet 1-2 Tab PO Q4-6HRS Reported Percocet 5-325 Mg Tablet (Oxycodone/Acetaminophen) 1 Each Tablet 1 Tab PO PRN Q6HRS PRN Zofran Odt (Ondansetron) 8 Mg Tab.rapdis 8 Mg PO BID PRN Aspir 81 (Aspirin) 81 Mg Tablet. 1 Tab PO DAILY Metoprolol Succinate ( Xl ) (Metoprolol Succinate) 25 Mg Tab.er.24h 12.5 Mg PO DAILY Vitamin D3 (Cholecalciferol (Vitamin D3)) 1,000 Unit Tablet 1 Tab PO DAILY Torsemide 20 Mg Tablet 1 Tab PO DAILY Gabapentin (Gabapentin) 100 Mg Capsule 100 Mg PO TID Ferrous Sulfate 325 Mg Tablet 1 Tab PO DAILY Daliresp (Roflumilast) 500 Mcg Tablet 1 Tab PO DAILY Atorvastatin Calcium 20 Mg Tablet 20 Mg PO HS Amitriptyline Hcl 10 Mg Tablet 1-2 Tab PO QHS Alendronate Sodium 70 Mg Tablet 1 Tab PO WEEKLY Requip (Ropinirole Hcl) 1 Mg Tablet 3 Tab PO QHS Proair Hfa Inhaler (Albuterol Sulfate) 8.5 Gm Hfa.aer.ad 1 Puff INH PRN Q6HRS PRN Potassium Citrate 10 Meq Tablet.er 20 Meq PO DAILY Protonix (Pantoprazole Sodium) 40 Mg Tablet. 1 Tab PO DAILY Lidocaine 1 Each Adh..patch 1 Each TP Levothyroxine Sodium 50 Mcg Tablet 1 Tab PO DAILY Vitals/I & O Vital Sign - Last 24 Hours 10/30/18 10/30/18 10/30/18 10/30/18 11:55 12:24 12:35 13:49 Temp 98.4 98.4 Pulse 76 Resp 18 B/P (MAP) 117/58 (77) Pulse Ox 95 98 98 O2 Delivery Nasal Cannula Nasal Cannula Nasal Cannula O2 Flow Rate 2.0 2.0 2.0 10/30/18 10/30/18 10/30/18 10/30/18 15:34 16:16 17:25 18:25 Temp 98.4 98.4 Pulse 73 Resp 18 B/P (MAP) 101/45 (63) Pulse Ox 95 98 O2 Delivery Nasal Cannula Nasal Cannula Nasal Cannula Nasal Cannula O2 Flow Rate 2.0 2.0 2.0 2.0 10/30/18 10/30/18 10/30/18 10/30/18 19:00 19:16 20:00 21:12 Temp 98.5 98.5 Pulse 100 Resp 17 18 B/P (MAP) 122/53 (76) Pulse Ox 96 100 100 O2 Delivery Nasal Cannula Nasal Cannula Nasal Cannula Nasal Cannula O2 Flow Rate 2.0 2.0 2.0 2.0 10/30/18 10/30/18 10/31/18 10/31/18 22:12 23:00 03:00 07:00 Temp 98.0 98.5 98.3 98.0 98.5 98.3 Pulse 96 85 85 Resp 18 17 18 18 B/P (MAP) 126/49 (74) 113/52 (72) 121/58 (79) Pulse Ox 100 97 94 92 O2 Delivery Nasal Cannula Nasal Cannula Nasal Cannula Nasal Cannula O2 Flow Rate 2.0 2.0 2.0 2.0 10/31/18 10/31/18 10/31/18 07:34 08:03 08:13 Pulse 85 B/P (MAP) 121/58 Pulse Ox 99 O2 Delivery Nasal Cannula Nasal Cannula O2 Flow Rate 2.0 2.0 Intake and Output 10/30/18 10/30/18 10/31/18 15:01 23:01 07:01 Intake Total 420 ml 520 ml Balance 420 ml 520 ml NEGRITO ARREOLA MD Oct 31, 2018 08:56
--- NOTE | 2018-10-31 10:42 | PDOC ---
PROGRESS NOTES Chief Complaint Chief Complaint Severe acute exacerbation of COPD chronic obstructive pulmonary disease exacerbation , IV antibiotics. WBC improved 5.8 on 10/27/18. sepsis known Immune deficiency, NOS, got IgG infusion at home 10/25, per [facility] vasomotor nephropathy, in the background of diuretic use- HTN-chronic stable Hypothyroidism on replacement Dyslipidemia on statin malnutrition, POA, serum alb 2.8 iv steroids inc 10/30 History of Present Illness History of Present Illness still weak, marked dyspnea with any exertion less cough, creatinine improved Vitals Vitals Vital Signs Date Time Temp Pulse Resp B/P (MAP) Pulse Ox O2 Delivery O2 Flow Rate FiO2 10/31/18 09:05 Nasal Cannula 2.0 10/31/18 08:13 85 121/58 10/31/18 07:34 99 10/31/18 07:00 98.3 18 98.3 Physical Exam General: Alert, Oriented X3, No acute distress Heart: Normal S1, Normal S2 Lungs: Wheezing Abdomen: Normal bowel sounds, Soft, No tenderness, No hepatosplenomegaly, No masses Extremities: No clubbing, No cyanosis, No edema, Normal pulses, No tenderness/ swelling Skin: No rashes, No breakdown, No significant lesion Labs LABS Laboratory Tests Test 10/31/18 04:40 White Blood Count 5.1 x10^3/uL (4.0-11.0) Red Blood Count 3.58 x10^6/uL (3.50-5.40) Hemoglobin 11.4 g/dL (12.0-15.5) Hematocrit 33.5 % (36.0-47.0) Mean Corpuscular Volume 94 fL (79-100) Mean Corpuscular Hemoglobin 32 pg (25-35) Mean Corpuscular Hemoglobin Concent 34 g/dL (31-37) Red Cell Distribution Width 13.0 % (11.5-14.5) Platelet Count 155 x10^3/uL (140-400) Neutrophils (%) (Auto) 81 % (31-73) Lymphocytes (%) (Auto) 13 % (24-48) Monocytes (%) (Auto) 5 % (0-9) Eosinophils (%) (Auto) 0 % (0-3) Basophils (%) (Auto) 0 % (0-3) Neutrophils # (Auto) 4.1 x10^3uL (1.8-7.7) Lymphocytes # (Auto) 0.7 x10^3/uL (1.0-4.8) Monocytes # (Auto) 0.3 x10^3/uL (0.0-1.1) Eosinophils # (Auto) 0.0 x10^3/uL (0.0-0.7) Basophils # (Auto) 0.0 x10^3/uL (0.0-0.2) Sodium Level 139 mmol/L (136-145) Potassium Level 4.9 mmol/L (3.5-5.1) Chloride Level 96 mmol/L (98-107) Carbon Dioxide Level 42 mmol/L (21-32) Anion Gap 1 (6-14) Blood Urea Nitrogen 27 mg/dL (7-20) Creatinine 1.3 mg/dL (0.6-1.0) Estimated GFR (Cockcroft-Gault) 41.2 BUN/Creatinine Ratio 21 (6-20) Glucose Level 176 mg/dL (70-99) Calcium Level 9.1 mg/dL (8.5-10.1) Total Bilirubin 0.3 mg/dL (0.2-1.0) Aspartate Amino Transf (AST/SGOT) 31 U/L (15-37) Alanine Aminotransferase (ALT/SGPT) 23 U/L (14-59) Alkaline Phosphatase 44 U/L (46-116) Total Protein 6.5 g/dL (6.4-8.2) Albumin 2.6 g/dL (3.4-5.0) Albumin/Globulin Ratio 0.7 (1.0-1.7) Assessment and Plan Assessmemt and Plan Problems Medical Problems: (1) Bandemia Status: Acute (2) COPD exacerbation Status: Acute Comment Review of Relevant I have reviewed the following items jon (where applicable) has been applied. Labs Laboratory Tests Test 10/31/18 04:40 White Blood Count 5.1 x10^3/uL (4.0-11.0) Red Blood Count 3.58 x10^6/uL (3.50-5.40) Hemoglobin 11.4 g/dL (12.0-15.5) Hematocrit 33.5 % (36.0-47.0) Mean Corpuscular Volume 94 fL (79-100) Mean Corpuscular Hemoglobin 32 pg (25-35) Mean Corpuscular Hemoglobin Concent 34 g/dL (31-37) Red Cell Distribution Width 13.0 % (11.5-14.5) Platelet Count 155 x10^3/uL (140-400) Neutrophils (%) (Auto) 81 % (31-73) Lymphocytes (%) (Auto) 13 % (24-48) Monocytes (%) (Auto) 5 % (0-9) Eosinophils (%) (Auto) 0 % (0-3) Basophils (%) (Auto) 0 % (0-3) Neutrophils # (Auto) 4.1 x10^3uL (1.8-7.7) Lymphocytes # (Auto) 0.7 x10^3/uL (1.0-4.8) Monocytes # (Auto) 0.3 x10^3/uL (0.0-1.1) Eosinophils # (Auto) 0.0 x10^3/uL (0.0-0.7) Basophils # (Auto) 0.0 x10^3/uL (0.0-0.2) Sodium Level 139 mmol/L (136-145) Potassium Level 4.9 mmol/L (3.5-5.1) Chloride Level 96 mmol/L (98-107) Carbon Dioxide Level 42 mmol/L (21-32) Anion Gap 1 (6-14) Blood Urea Nitrogen 27 mg/dL (7-20) Creatinine 1.3 mg/dL (0.6-1.0) Estimated GFR (Cockcroft-Gault) 41.2 BUN/Creatinine Ratio 21 (6-20) Glucose Level 176 mg/dL (70-99) Calcium Level 9.1 mg/dL (8.5-10.1) Total Bilirubin 0.3 mg/dL (0.2-1.0) Aspartate Amino Transf (AST/SGOT) 31 U/L (15-37) Alanine Aminotransferase (ALT/SGPT) 23 U/L (14-59) Alkaline Phosphatase 44 U/L (46-116) Total Protein 6.5 g/dL (6.4-8.2) Albumin 2.6 g/dL (3.4-5.0) Albumin/Globulin Ratio 0.7 (1.0-1.7) Laboratory Tests Test 10/31/18 04:40 White Blood Count 5.1 x10^3/uL (4.0-11.0) Red Blood Count 3.58 x10^6/uL (3.50-5.40) Hemoglobin 11.4 g/dL (12.0-15.5) Hematocrit 33.5 % (36.0-47.0) Mean Corpuscular Volume 94 fL (79-100) Mean Corpuscular Hemoglobin 32 pg (25-35) Mean Corpuscular Hemoglobin Concent 34 g/dL (31-37) Red Cell Distribution Width 13.0 % (11.5-14.5) Platelet Count 155 x10^3/uL (140-400) Neutrophils (%) (Auto) 81 % (31-73) Lymphocytes (%) (Auto) 13 % (24-48) Monocytes (%) (Auto) 5 % (0-9) Eosinophils (%) (Auto) 0 % (0-3) Basophils (%) (Auto) 0 % (0-3) Neutrophils # (Auto) 4.1 x10^3uL (1.8-7.7) Lymphocytes # (Auto) 0.7 x10^3/uL (1.0-4.8) Monocytes # (Auto) 0.3 x10^3/uL (0.0-1.1) Eosinophils # (Auto) 0.0 x10^3/uL (0.0-0.7) Basophils # (Auto) 0.0 x10^3/uL (0.0-0.2) Sodium Level 139 mmol/L (136-145) Potassium Level 4.9 mmol/L (3.5-5.1) Chloride Level 96 mmol/L (98-107) Carbon Dioxide Level 42 mmol/L (21-32) Anion Gap 1 (6-14) Blood Urea Nitrogen 27 mg/dL (7-20) Creatinine 1.3 mg/dL (0.6-1.0) Estimated GFR (Cockcroft-Gault) 41.2 BUN/Creatinine Ratio 21 (6-20) Glucose Level 176 mg/dL (70-99) Calcium Level 9.1 mg/dL (8.5-10.1) Total Bilirubin 0.3 mg/dL (0.2-1.0) Aspartate Amino Transf (AST/SGOT) 31 U/L (15-37) Alanine Aminotransferase (ALT/SGPT) 23 U/L (14-59) Alkaline Phosphatase 44 U/L (46-116) Total Protein 6.5 g/dL (6.4-8.2) Albumin 2.6 g/dL (3.4-5.0) Albumin/Globulin Ratio 0.7 (1.0-1.7) Microbiology 10/25/18 Blood Culture - Final, Complete NO GROWTH AFTER 5 DAYS Medications Current Medications Albuterol/ Ipratropium (Duoneb) 3 ml 1X ONCE NEB Last administered on at 16:13; Start 10/25/18 at 16:00; Stop 10/25/18 at 16:01; Status DC Methylprednisolone Sodium Succinate (SOLU-Medrol 125MG VIAL) 125 mg 1X ONCE IV Last administered on 10/25/18at 16:16; Start 10/25/18 at 16:00; Stop 10/25/18 at 16:01; Status DC Acetaminophen (Tylenol) 650 mg 1X ONCE PO Last administered on 10/25/18at 16:14 ; Start 10/25/18 at 16:00; Stop 10/25/18 at 16:01; Status DC Sodium Chloride 1,000 ml @ 1,000 mls/hr 1X ONCE IV Last administered on at 16:36; Start 10/25/18 at 16:45; Stop 10/25/18 at 17:50; Status DC Ceftriaxone Sodium (Rocephin) 1 gm 1X ONCE IVP ; Start 10/25/18 at 17:00; Stop 10/25/18 at 17:01; Status UNV Azithromycin 250 ml @ 250 mls/hr 1X ONCE IV ; Start 10/25/18 at 17:00; Stop at 17:59; Status Cancel Albuterol/ Ipratropium (Duoneb) 3 ml 1X ONCE NEB Last administered on at 18:00; Start 10/25/18 at 17:00; Stop 10/25/18 at 17:06; Status DC Levofloxacin/ Dextrose 150 ml @ 100 mls/hr 1X ONCE IV Last administered on at 17:58; Start 10/25/18 at 17:15; Stop 10/25/18 at 18:44; Status DC Acetaminophen (Tylenol) 650 mg PRN Q4HRS PRN PO FEVER; Start 10/25/18 at 17:15 ; Stop 10/26/18 at 17:14; Status DC Albuterol/ Ipratropium (Duoneb) 3 ml RTQID NEB Last administered on 10/26/18 15:14; Start 10/25/18 at 20:00; Stop 10/26/18 at 20:12; Status DC Benzonatate (Tessalon Perle) 100 mg [id number] PO Last administered on 10/31/18 08 :02; Start 10/25/18 at 21:00 Guaifenesin (Robitussin Dm) 10 ml PRN Q6HRS PRN PO COUGH 1ST CHOICE Last administered on 10/27/18 21:26; Start 10/25/18 at 17:30; Stop 10/28/18 at 09:54 ; Status DC Diphenhydramine HCl (Benadryl) 25 mg PRN QHS PRN PO INSOMNIA; Start 10/25/18 at 17:30 Ondansetron HCl (Zofran) 4 mg PRN Q6HRS PRN IV NAUSEA/VOMITING; Start 10/25/18 at 17:30 Ondansetron HCl (Zofran Odt) 4 mg PRN Q6HRS PRN PO NAUSEA/VOMITING; Start 10/25 at 17:30 Amitriptyline HCl (Elavil) 20 mg QHS PO Last administered on 10/30/18 21:11; Start 10/25/18 at 21:00 Aspirin (Ecotrin) 81 mg DAILY07 PO Last administered on 10/31/18 05:05; Start 10/25/18 at 18:00 Atorvastatin Calcium (Lipitor) 20 mg HS PO Last administered on 10/30/18 21:11 ; Start 10/25/18 at 21:00 Vitamin D (Vitamin D3) 1,000 unit DAILY PO Last administered on 10/31/18 08:02 ; Start 10/25/18 at 18:00 Ferrous Sulfate (Feosol) 325 mg DAILY08 PO Last administered on 10/31/18 08:03 ; Start 10/25/18 at 18:00 Gabapentin (Neurontin) 100 mg TID PO Last administered on 10/31/18 08:03; Start 10/25/18 at 21:00 Acetaminophen/ Hydrocodone Bitart (Lortab 10/325) 1 tab PRN Q6HRS PRN PO MODERATE-SEVERE PAIN Last administered on 10/30/18 21:12; Start 10/25/18 at 17: 30 Acetaminophen/ Hydrocodone Bitart (Lortab 5/325) 1 tab QID PO Last administered on 10/31/18 08:03; Start 10/25/18 at 21:00 Metoprolol Succinate (Toprol Xl) 12.5 mg DAILY PO Last administered on 08:13; Start 10/25/18 at 18:00 Oxycodone/ Acetaminophen (Percocet 5/325) 1 tab PRN Q6HRS PRN PO PAIN severe 2nd choice Last administered on 10/28/18 04:54; Start 10/25/18 at 17:30 Pantoprazole Sodium (Protonix) 40 mg DAILY07 PO Last administered on 10/31/18 05:05; Start 10/25/18 at 18:00 Potassium Citrate (Urocit-K) 20 meq DAILY08 PO Last administered on 10/31/18 08:02; Start 10/25/18 at 18:00 Non-Formulary Medication (Alendronate Sodium ) 1 tab WEEKLY PO ; Start 11/01/18 at 09:00; Status UNV Levothyroxine Sodium (Synthroid) 50 mcg DAILY06 PO Last administered on 05:05; Start 10/25/18 at 18:00 Non-Formulary Medication (Ondansetron (Zofran Odt)) 8 mg BID PRN PO NAUSEA/ VOMITING; Start 10/25/18 at 17:30; Status UNV Roflumilast (Daliresp) 500 mcg DAILY PO Last administered on 10/31/18 08:02; Start 10/25/18 at 18:00 Ropinirole HCl (Requip) 3 mg QHS PO Last administered on 10/30/18 21:11; Start 10/25/18 at 21:00 Torsemide (Demadex) 20 mg DAILY PO Last administered on 10/31/18 08:03; Start 10/25/18 at 18:00 Albuterol Sulfate (Ventolin Neb Soln) 2.5 mg PRN Q4HRS PRN NEB SHORTNESS OF BREATH; Start 10/25/18 at 18:15 Methylprednisolone Sodium Succinate (SOLU-Medrol 40MG VIAL) 60 mg Q8HRS IV Last administered on 10/29/18at 06:10; Start 10/25/18 at 22:00; Stop 10/29/18 at 08:39; Status DC Temazepam (Restoril) 7.5 mg PRN QHS PRN PO INSOMNIA; Start 10/25/18 at 20:00 Levofloxacin/ Dextrose (Levaquin Per Pharmacy) 1 each PRN DAILY PRN MC SEE COMMENTS; Start 10/25/18 at 20:00; Status Cancel Levofloxacin/ Dextrose 50 ml @ 50 mls/hr Q24H IV ; Start 10/26/18 at 17:00; Stop 10/26/18 at 17:00; Status DC Levofloxacin (Levaquin) 500 mg DAILY16 PO Last administered on 10/30/18at 15:36 ; Start 10/26/18 at 16:00 Levofloxacin/ Dextrose (Levaquin Per Pharmacy) 1 each PRN DAILY PRN MC SEE COMMENTS; Start 10/26/18 at 08:15 Lactobacillus Rhamnosus (Culturelle) 1 cap BID PO Last administered on at 08:48; Start 10/26/18 at 21:00; Stop 10/28/18 at 10:06; Status DC Albuterol/ Ipratropium (Duoneb) 3 ml RTQID NEB Last administered on 10/31/18at 07:34; Start 10/26/18 at 20:00 Throat Lozenges (Chloraseptic) 1 spray PRN Q2HR PRN PO SORE THROAT Last administered on 10/27/18at 16:43; Start 10/27/18 at 11:15 Fluticasone Propionate (Flonase) 2 spray DAILY NS Last administered on at 08:15; Start 10/28/18 at 09:00 Guaifenesin (Robitussin Dm) 10 ml PRN Q6HRS PRN PO COUGH Last administered on at 21:11; Start 10/28/18 at 10:00 Throat Lozenges (Cepacol Sore Throat Lozenge) 1 venancio PRN Q2HRS PRN PO SORE THROAT; Start 10/28/18 at 10:00 Methylprednisolone Sodium Succinate (SOLU-Medrol 40MG VIAL) 80 mg Q8HRS IV Last administered on 10/31/18at 05:05; Start 10/29/18 at 14:00 Active Scripts Active Prednisone (Prednisone) 10 Mg Tablet 30 Mg PO DAILY Mucinex (Guaifenesin) 600 Mg Tablet.er 600 Mg PO BID Hydrocodone-Apap 10-325 (Hydrocodone Bit/Acetaminophen) 1 Each Tablet 1 Tab PO PRN Q6HRS PRN Doxycycline Hyclate 100 Mg Tablet 100 Mg PO BID 5 Days [place] 5-325 Tablet (Acetaminophen/Hydrocodone Bitart) 1 Each Tablet 1-2 Tab PO Q4-6HRS Reported Percocet 5-325 Mg Tablet (Oxycodone/Acetaminophen) 1 Each Tablet 1 Tab PO PRN Q6HRS PRN Zofran Odt (Ondansetron) 8 Mg Tab.rapdis 8 Mg PO BID PRN Aspir 81 (Aspirin) 81 Mg Tablet. 1 Tab PO DAILY Metoprolol Succinate ( Xl ) (Metoprolol Succinate) 25 Mg Tab.er.24h 12.5 Mg PO DAILY Vitamin D3 (Cholecalciferol (Vitamin D3)) 1,000 Unit Tablet 1 Tab PO DAILY Torsemide 20 Mg Tablet 1 Tab PO DAILY Gabapentin (Gabapentin) 100 Mg Capsule 100 Mg PO TID Ferrous Sulfate 325 Mg Tablet 1 Tab PO DAILY Daliresp (Roflumilast) 500 Mcg Tablet 1 Tab PO DAILY Atorvastatin Calcium 20 Mg Tablet 20 Mg PO HS Amitriptyline Hcl 10 Mg Tablet 1-2 Tab PO QHS Alendronate Sodium 70 Mg Tablet 1 Tab PO WEEKLY Requip (Ropinirole Hcl) 1 Mg Tablet 3 Tab PO QHS Proair Hfa Inhaler (Albuterol Sulfate) 8.5 Gm Hfa.aer.ad 1 Puff INH PRN Q6HRS PRN Potassium Citrate 10 Meq Tablet.er 20 Meq PO DAILY Protonix (Pantoprazole Sodium) 40 Mg Tablet.dr 1 Tab PO DAILY Lidocaine 1 Each Adh..patch 1 Each TP Levothyroxine Sodium 50 Mcg Tablet 1 Tab PO DAILY Vitals/I & O Vital Sign - Last 24 Hours 10/30/18 10/30/18 10/30/18 10/30/18 11:55 12:24 12:35 13:49 Temp 98.4 98.4 Pulse 76 Resp 18 B/P (MAP) 117/58 (77) Pulse Ox 95 98 98 O2 Delivery Nasal Cannula Nasal Cannula Nasal Cannula O2 Flow Rate 2.0 2.0 2.0 10/30/18 10/30/18 10/30/18 10/30/18 15:34 16:16 17:25 19:00 Temp 98.4 98.5 98.4 98.5 Pulse 73 100 Resp 18 17 B/P (MAP) 101/45 (63) 122/53 (76) Pulse Ox 95 98 96 O2 Delivery Nasal Cannula Nasal Cannula Nasal Cannula Nasal Cannula O2 Flow Rate 2.0 2.0 2.0 2.0 10/30/18 10/30/18 10/30/18 10/30/18 19:16 20:00 21:12 22:12 Resp 18 18 Pulse Ox 100 100 100 O2 Delivery Nasal Cannula Nasal Cannula Nasal Cannula Nasal Cannula O2 Flow Rate 2.0 2.0 2.0 2.0 10/30/18 10/31/18 10/31/18 10/31/18 23:00 03:00 07:00 07:34 Temp 98.0 98.5 98.3 98.0 98.5 98.3 Pulse 96 85 85 Resp 17 18 18 B/P (MAP) 126/49 (74) 113/52 (72) 121/58 (79) Pulse Ox 97 94 92 99 O2 Delivery Nasal Cannula Nasal Cannula Nasal Cannula Nasal Cannula O2 Flow Rate 2.0 2.0 2.0 2.0 10/31/18 10/31/18 10/31/18 10/31/18 07:55 08:03 08:13 09:05 Pulse 85 B/P (MAP) 121/58 O2 Delivery Nasal Cannula Nasal Cannula Nasal Cannula O2 Flow Rate 2.0 2.0 2.0 Intake and Output 10/30/18 10/30/18 10/31/18 15:01 23:01 07:01 Intake Total 420 ml 520 ml Balance 420 ml 520 ml CAMILA MORELOS MD Oct 31, 2018 10:42
[2018-10-31] MEDS: HYDROcodone/APAP 10/325 1 TAB TABLET PO PRN (15:00)
--- NOTE | 2018-10-31 15:52 | NUR ---
SW following. PT/OT recommends HH so pt does not qualify for SNU evaluation. SW will set up HH if ordered by Physician.
[2018-10-31] MEDS: ATORVASTATIN CALCIUM 20 MG TABLET PO SCH (21:09)
[2018-10-31] MEDS: AMITRIPTYLINE HCL 10 MG TABLET. PO SCH (21:09)
[2018-10-31] MEDS: rOPINIRole 1 MG TABLET. PO SCH (21:09)
--- NOTE | 2018-10-31 22:00 | NUR ---
Patient c/o IV site being painful, site red and swollen, tender to touch, discontinued site, pressure dressing applied, Patient refused to have a new one replaced would prefer to wait till talk to doctor in AM to see if can just be put on PO steroids instead of IV solu-medro.
[2018-11-01 03:00] VITALS: BP 128/56
[2018-11-01] MEDS: ASPIRIN ENTERIC COATED 81 MG TABLET.DR. PO SCH (05:26)
[2018-11-01] MEDS: PANTOPRAZOLE 40 MG TABLET.DR. PO SCH (05:26)
[2018-11-01] MEDS: LEVOTHYROXINE 50 MCG TABLET PO SCH (05:26)
[2018-11-01 07:00] VITALS: BP 146/64
[2018-11-01] MEDS: ROFLUMILAST 500 MCG TABLET. PO SCH (08:31)
[2018-11-01] MEDS: METOPROLOL SUCC 24HR ER 25 MG TAB.ER.24H. PO SCH (08:31)
[2018-11-01] MEDS: BENZONATATE 100 MG CAPSULE. PO SCH (08:32)
[2018-11-01] MEDS: FERROUS SULFATE 325 MG TABLET. PO SCH (08:32)
[2018-11-01] MEDS: HYDROcodone/APAP 10/325 1 TAB TABLET PO PRN (08:32)
[2018-11-01] MEDS: TORSEMIDE 20 MG TABLET. PO SCH (08:32)
[2018-11-01] MEDS: POTASSIUM CITRATE 10 MEQ TABLET.ER PO SCH (08:32)
[2018-11-01] MEDS: CHOLECALCIFEROL (VITAMIN D3) 1,000 UNIT TABLET PO SCH (08:32)
[2018-11-01] MEDS: GABAPENTIN 100 MG CAPSULE. PO SCH (08:32)
[2018-11-01] MEDS: FLUTICASONE 50MCG/NASAL SPRAY 16GM BOTTLE. NS SCH (08:33)
[2018-11-01] MEDS: IPRATRPIUM/ALBUTEROL 0.5/2.5MG 3 ML NEBU. NEB SCH (08:53)
[2018-11-01] MEDS ORDERED: NON FORMULARY ITEM (Alendronate Sodium 1 TAB) PO SCH (09:00)
[2018-11-01] MEDS ORDERED: predniSONE 20 MG TABLET PO SCH (09:00)
[2018-11-01] MEDS: HYDROcodone/APAP 5/325MG 1 TAB TABLET PO SCH (09:00)
--- NOTE | 2018-11-01 09:27 | PDOC ---
PULMONARY PROGRESS NOTES Subjective PT STILL SOA AND WHEEZE Vitals Vital Signs Date Time Temp Pulse Resp B/P (MAP) Pulse Ox O2 Delivery O2 Flow Rate FiO2 11/01/18 08:54 97 Nasal Cannula 3.0 11/01/18 08:31 66 146/64 11/01/18 07:00 98.2 17 98.2 ROS: No Nausea General: Alert, No acute distress Lungs: Wheezing Cardiovascular: S1, S2 Abdomen: Soft, Non-tender Neuro Exam: Alert Extremities: No Edema Skin: Warm Labs Laboratory Tests Test 10/31/18 04:40 White Blood Count 5.1 x10^3/uL (4.0-11.0) Red Blood Count 3.58 x10^6/uL (3.50-5.40) Hemoglobin 11.4 g/dL (12.0-15.5) Hematocrit 33.5 % (36.0-47.0) Mean Corpuscular Volume 94 fL (79-100) Mean Corpuscular Hemoglobin 32 pg (25-35) Mean Corpuscular Hemoglobin Concent 34 g/dL (31-37) Red Cell Distribution Width 13.0 % (11.5-14.5) Platelet Count 155 x10^3/uL (140-400) Neutrophils (%) (Auto) 81 % (31-73) Lymphocytes (%) (Auto) 13 % (24-48) Monocytes (%) (Auto) 5 % (0-9) Eosinophils (%) (Auto) 0 % (0-3) Basophils (%) (Auto) 0 % (0-3) Neutrophils # (Auto) 4.1 x10^3uL (1.8-7.7) Lymphocytes # (Auto) 0.7 x10^3/uL (1.0-4.8) Monocytes # (Auto) 0.3 x10^3/uL (0.0-1.1) Eosinophils # (Auto) 0.0 x10^3/uL (0.0-0.7) Basophils # (Auto) 0.0 x10^3/uL (0.0-0.2) Sodium Level 139 mmol/L (136-145) Potassium Level 4.9 mmol/L (3.5-5.1) Chloride Level 96 mmol/L (98-107) Carbon Dioxide Level 42 mmol/L (21-32) Anion Gap 1 (6-14) Blood Urea Nitrogen 27 mg/dL (7-20) Creatinine 1.3 mg/dL (0.6-1.0) Estimated GFR (Cockcroft-Gault) 41.2 BUN/Creatinine Ratio 21 (6-20) Glucose Level 176 mg/dL (70-99) Calcium Level 9.1 mg/dL (8.5-10.1) Total Bilirubin 0.3 mg/dL (0.2-1.0) Aspartate Amino Transf (AST/SGOT) 31 U/L (15-37) Alanine Aminotransferase (ALT/SGPT) 23 U/L (14-59) Alkaline Phosphatase 44 U/L (46-116) Total Protein 6.5 g/dL (6.4-8.2) Albumin 2.6 g/dL (3.4-5.0) Albumin/Globulin Ratio 0.7 (1.0-1.7) Medications Active Scripts Medications Dose Route/Sig Max Daily Dose Days Date Category Prednisone (Prednisone) 10 Mg Tablet 30 Mg PO DAILY 08/13/18 Rx Mucinex (Guaifenesin) 600 Mg Tablet.er 600 Mg PO BID 08/13/18 Rx Hydrocodone-Apap 10-325 (Hydrocodone Bit/Acetaminophen) 1 Each Tablet 1 Tab PO PRN Q6HRS PRN 08/13/18 Rx Doxycycline Hyclate 100 Mg Tablet 100 Mg PO BID 5 08/13/18 Rx Percocet 5-325 Mg Tablet (Oxycodone/Acetaminophen) 1 Each Tablet 1 Tab PO PRN Q6HRS PRN 08/09/18 Reported Zofran Odt (Ondansetron) 8 Mg Tab.rapdis 8 Mg PO BID PRN 08/09/18 Reported [place] 5-325 Tablet (Acetaminophen/Hydrocodone Bitart) 1 Each Tablet 1-2 Tab PO Q4-6HRS 06/24/18 Rx Aspir 81 (Aspirin) 81 Mg Tablet.dr 1 Tab PO DAILY 01/03/18 Reported Metoprolol Succinate ( Xl ) (Metoprolol Succinate) 25 Mg Tab.er.24h 12.5 Mg PO DAILY 01/03/18 Reported Vitamin D3 (Cholecalciferol (Vitamin D3)) 1,000 Unit Tablet 1 Tab PO DAILY 01/02/18 Reported Torsemide 20 Mg Tablet 1 Tab PO DAILY 01/02/18 Reported Gabapentin (Gabapentin) 100 Mg Capsule 100 Mg PO TID 01/02/18 Reported Ferrous Sulfate 325 Mg Tablet 1 Tab PO DAILY 09/23/17 Reported Daliresp (Roflumilast) 500 Mcg Tablet 1 Tab PO DAILY 09/23/17 Reported Atorvastatin Calcium 20 Mg Tablet 20 Mg PO HS 09/23/17 Reported Amitriptyline Hcl 10 Mg Tablet 1-2 Tab PO QHS 09/23/17 Reported Alendronate Sodium 70 Mg Tablet 1 Tab PO WEEKLY 09/23/17 Reported Requip (Ropinirole Hcl) 1 Mg Tablet 3 Tab PO QHS 09/23/17 Reported Proair Hfa Inhaler (Albuterol Sulfate) 8.5 Gm Hfa.aer.ad 1 Puff INH PRN Q6HRS PRN 09/23/17 Reported Potassium Citrate 10 Meq Tablet.er 20 Meq PO DAILY 09/23/17 Reported Protonix (Pantoprazole Sodium) 40 Mg Tablet.dr 1 Tab PO DAILY 09/23/17 Reported Lidocaine 1 Each Adh..patch 1 Each TP 09/23/17 Reported Levothyroxine Sodium 50 Mcg Tablet 1 Tab PO DAILY 09/23/17 Reported Impression . 1. Acute on chronic hypoxic respiratory failure secondary to acute exacerbation of chronic obstructive pulmonary/ VIRAL TRACHEOBRONCHITIS 2. 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 Leukopenia could be related to viral infection. improving. 3. Abnormal chest x-ray with prominent interstitial markings. This was a same pattern seen in the last year film as well. CT chest reviewed. There is no evidence of interstitial pneumonia or interstitial lung disease. 4. allergic rhinitis Plan . PT SEEN WORKING WITH PT THEY REC HOME WITH HH [facility] HAS O2 AT HOME OK TO D/C FROM MY STANDPOINT INFORMED PT THAT IT MAY TAKE A WHILE FOR HER TO IMPROVE CONTINUE SUPPORT PT TO FOLLOW UP AT ONCE D/C LETICIA FORTUNE MD Nov 01, 2018 09:27
[2018-11-01 11:00] VITALS: BP 114/63
--- NOTE | 2018-11-01 11:40 | PDOC ---
PROGRESS NOTES Chief Complaint Chief Complaint Severe acute exacerbation of COPD chronic obstructive pulmonary disease exacerbation , IV antibiotics. WBC improved 5.8 on 10/27/18. sepsis known Immune deficiency, NOS, got IgG infusion at home 10/25, per [facility] vasomotor nephropathy, in the background of diuretic use- HTN-chronic stable Hypothyroidism on replacement Dyslipidemia on statin malnutrition, POA, serum alb 2.8 iv steroids inc 10/30 CONTINUES to have moderate wheezing and rhonchi on exp all lung connell 11/01, plan sputum cult, cxr today History of Present Illness History of Present Illness still weak, marked dyspnea with any exertion less cough, creatinine improved Vitals Vitals Vital Signs Date Time Temp Pulse Resp B/P (MAP) Pulse Ox O2 Delivery O2 Flow Rate FiO2 11/01/18 11:39 93 Nasal Cannula 2.0 11/01/18 11:00 97.5 66 17 114/63 (80) 97.5 Physical Exam General: Alert, Oriented X3, Cooperative, No acute distress, mild distress Heart: Normal S1, Normal S2 Lungs: Wheezing, Other (rhonchi) Abdomen: Normal bowel sounds, Soft, No tenderness, No hepatosplenomegaly, No masses Extremities: No clubbing, No cyanosis, No edema, Normal pulses, No tenderness/ swelling Skin: No rashes, No breakdown, No significant lesion Assessment and Plan Assessmemt and Plan Problems Medical Problems: (1) Bandemia Status: Acute (2) COPD exacerbation Status: Acute Comment Review of Relevant I have reviewed the following items jon (where applicable) has been applied. Labs Laboratory Tests Test 10/31/18 04:40 White Blood Count 5.1 x10^3/uL (4.0-11.0) Red Blood Count 3.58 x10^6/uL (3.50-5.40) Hemoglobin 11.4 g/dL (12.0-15.5) Hematocrit 33.5 % (36.0-47.0) Mean Corpuscular Volume 94 fL (79-100) Mean Corpuscular Hemoglobin 32 pg (25-35) Mean Corpuscular Hemoglobin Concent 34 g/dL (31-37) Red Cell Distribution Width 13.0 % (11.5-14.5) Platelet Count 155 x10^3/uL (140-400) Neutrophils (%) (Auto) 81 % (31-73) Lymphocytes (%) (Auto) 13 % (24-48) Monocytes (%) (Auto) 5 % (0-9) Eosinophils (%) (Auto) 0 % (0-3) Basophils (%) (Auto) 0 % (0-3) Neutrophils # (Auto) 4.1 x10^3uL (1.8-7.7) Lymphocytes # (Auto) 0.7 x10^3/uL (1.0-4.8) Monocytes # (Auto) 0.3 x10^3/uL (0.0-1.1) Eosinophils # (Auto) 0.0 x10^3/uL (0.0-0.7) Basophils # (Auto) 0.0 x10^3/uL (0.0-0.2) Sodium Level 139 mmol/L (136-145) Potassium Level 4.9 mmol/L (3.5-5.1) Chloride Level 96 mmol/L (98-107) Carbon Dioxide Level 42 mmol/L (21-32) Anion Gap 1 (6-14) Blood Urea Nitrogen 27 mg/dL (7-20) Creatinine 1.3 mg/dL (0.6-1.0) Estimated GFR (Cockcroft-Gault) 41.2 BUN/Creatinine Ratio 21 (6-20) Glucose Level 176 mg/dL (70-99) Calcium Level 9.1 mg/dL (8.5-10.1) Total Bilirubin 0.3 mg/dL (0.2-1.0) Aspartate Amino Transf (AST/SGOT) 31 U/L (15-37) Alanine Aminotransferase (ALT/SGPT) 23 U/L (14-59) Alkaline Phosphatase 44 U/L (46-116) Total Protein 6.5 g/dL (6.4-8.2) Albumin 2.6 g/dL (3.4-5.0) Albumin/Globulin Ratio 0.7 (1.0-1.7) Microbiology 10/25/18 Blood Culture - Final, Complete NO GROWTH AFTER 5 DAYS Medications Current Medications Albuterol/ Ipratropium (Duoneb) 3 ml 1X ONCE NEB Last administered on at 16:13; Start 10/25/18 at 16:00; Stop 10/25/18 at 16:01; Status DC Methylprednisolone Sodium Succinate (SOLU-Medrol 125MG VIAL) 125 mg 1X ONCE IV Last administered on 10/25/18at 16:16; Start 10/25/18 at 16:00; Stop 10/25/18 at 16:01; Status DC Acetaminophen (Tylenol) 650 mg 1X ONCE PO Last administered on 10/25/18at 16:14 ; Start 10/25/18 at 16:00; Stop 10/25/18 at 16:01; Status DC Sodium Chloride 1,000 ml @ 1,000 mls/hr 1X ONCE IV Last administered on at 16:36; Start 10/25/18 at 16:45; Stop 10/25/18 at 17:50; Status DC Ceftriaxone Sodium (Rocephin) 1 gm 1X ONCE IVP ; Start 10/25/18 at 17:00; Stop 10/25/18 at 17:01; Status UNV Azithromycin 250 ml @ 250 mls/hr 1X ONCE IV ; Start 10/25/18 at 17:00; Stop at 17:59; Status Cancel Albuterol/ Ipratropium (Duoneb) 3 ml 1X ONCE NEB Last administered on at 18:00; Start 10/25/18 at 17:00; Stop 10/25/18 at 17:06; Status DC Levofloxacin/ Dextrose 150 ml @ 100 mls/hr 1X ONCE IV Last administered on at 17:58; Start 10/25/18 at 17:15; Stop 10/25/18 at 18:44; Status DC Acetaminophen (Tylenol) 650 mg PRN Q4HRS PRN PO FEVER; Start 10/25/18 at 17:15 ; Stop 10/26/18 at 17:14; Status DC Albuterol/ Ipratropium (Duoneb) 3 ml RTQID NEB Last administered on 10/26/18at 15:14; Start 10/25/18 at 20:00; Stop 10/26/18 at 20:12; Status DC Benzonatate (Tessalon Perle) 100 mg [id number] PO Last administered on 11/01/18at 08 :32; Start 10/25/18 at 21:00 Guaifenesin (Robitussin Dm) 10 ml PRN Q6HRS PRN PO COUGH 1ST CHOICE Last administered on 10/27/18 21:26; Start 10/25/18 at 17:30; Stop 10/28/18 at 09:54 ; Status DC Diphenhydramine HCl (Benadryl) 25 mg PRN QHS PRN PO INSOMNIA; Start 10/25/18 at 17:30 Ondansetron HCl (Zofran) 4 mg PRN Q6HRS PRN IV NAUSEA/VOMITING Last administered on 10/31/18 11:37; Start 10/25/18 at 17:30 Ondansetron HCl (Zofran Odt) 4 mg PRN Q6HRS PRN PO NAUSEA/VOMITING; Start 10/25 at 17:30 Amitriptyline HCl (Elavil) 20 mg QHS PO Last administered on 10/31/18 21:09; Start 10/25/18 at 21:00 Aspirin (Ecotrin) 81 mg DAILY07 PO Last administered on 11/01/18 05:26; Start 10/25/18 at 18:00 Atorvastatin Calcium (Lipitor) 20 mg HS PO Last administered on 10/31/18 21:09 ; Start 10/25/18 at 21:00 Vitamin D (Vitamin D3) 1,000 unit DAILY PO Last administered on 11/01/18 08:32 ; Start 10/25/18 at 18:00 Ferrous Sulfate (Feosol) 325 mg DAILY08 PO Last administered on 11/01/18 08:32 ; Start 10/25/18 at 18:00 Gabapentin (Neurontin) 100 mg TID PO Last administered on 11/01/18 08:32; Start 10/25/18 at 21:00 Acetaminophen/ Hydrocodone Bitart (Lortab 10/325) 1 tab PRN Q6HRS PRN PO MODERATE-SEVERE PAIN Last administered on 11/01/18 08:32; Start 10/25/18 at 17: 30 Acetaminophen/ Hydrocodone Bitart (Lortab 5/325) 1 tab QID PO Last administered on 10/31/18 21:09; Start 10/25/18 at 21:00 Metoprolol Succinate (Toprol Xl) 12.5 mg DAILY PO Last administered on 08:31; Start 10/25/18 at 18:00 Oxycodone/ Acetaminophen (Percocet 5/325) 1 tab PRN Q6HRS PRN PO PAIN severe 2nd choice Last administered on 10/28/18 04:54; Start 10/25/18 at 17:30 Pantoprazole Sodium (Protonix) 40 mg DAILY07 PO Last administered on 11/01/18 05:26; Start 10/25/18 at 18:00 Potassium Citrate (Urocit-K) 20 meq DAILY08 PO Last administered on 11/01/18 08:32; Start 10/25/18 at 18:00 Non-Formulary Medication (Alendronate Sodium ) 1 tab WEEKLY PO ; Start 11/01/18 at 09:00; Status UNV Levothyroxine Sodium (Synthroid) 50 mcg DAILY06 PO Last administered on 05:26; Start 10/25/18 at 18:00 Non-Formulary Medication (Ondansetron (Zofran Odt)) 8 mg BID PRN PO NAUSEA/ VOMITING; Start 10/25/18 at 17:30; Status UNV Roflumilast (Daliresp) 500 mcg DAILY PO Last administered on 11/01/18 08:31; Start 10/25/18 at 18:00 Ropinirole HCl (Requip) 3 mg QHS PO Last administered on 10/31/18at 21:09; Start 10/25/18 at 21:00 Torsemide (Demadex) 20 mg DAILY PO Last administered on 11/01/18 08:32; Start 10/25/18 at 18:00 Albuterol Sulfate (Ventolin Neb Soln) 2.5 mg PRN Q4HRS PRN NEB SHORTNESS OF BREATH; Start 10/25/18 at 18:15 Methylprednisolone Sodium Succinate (SOLU-Medrol 40MG VIAL) 60 mg Q8HRS IV Last administered on 10/29/18at 06:10; Start 10/25/18 at 22:00; Stop 10/29/18 at 08:39; Status DC Temazepam (Restoril) 7.5 mg PRN QHS PRN PO INSOMNIA; Start 10/25/18 at 20:00 Levofloxacin/ Dextrose (Levaquin Per Pharmacy) 1 each PRN DAILY PRN [facility] SEE COMMENTS; Start 10/25/18 at 20:00; Status Cancel Levofloxacin/ Dextrose 50 ml @ 50 mls/hr Q24H IV ; Start 10/26/18 at 17:00; Stop 10/26/18 at 17:00; Status DC Levofloxacin (Levaquin) 500 mg DAILY16 PO Last administered on 10/31/18at 16:12 ; Start 10/26/18 at 16:00 Levofloxacin/ Dextrose (Levaquin Per Pharmacy) 1 each PRN DAILY PRN [facility] SEE COMMENTS; Start 10/26/18 at 08:15 Lactobacillus Rhamnosus (Culturelle) 1 cap BID PO Last administered on at 08:48; Start 10/26/18 at 21:00; Stop 10/28/18 at 10:06; Status DC Albuterol/ Ipratropium (Duoneb) 3 ml RTQID NEB Last administered on 11/01/18at 08:53; Start 10/26/18 at 20:00 Throat Lozenges (Chloraseptic) 1 spray PRN Q2HR PRN PO SORE THROAT Last administered on 10/27/18at 16:43; Start 10/27/18 at 11:15 Fluticasone Propionate (Flonase) 2 spray DAILY NS Last administered on at 08:33; Start 10/28/18 at 09:00 Guaifenesin (Robitussin Dm) 10 ml PRN Q6HRS PRN PO COUGH Last administered on at 21:11; Start 10/28/18 at 10:00 Throat Lozenges (Cepacol Sore Throat Lozenge) 1 venancio PRN Q2HRS PRN PO SORE THROAT; Start 10/28/18 at 10:00 Methylprednisolone Sodium Succinate (SOLU-Medrol 40MG VIAL) 80 mg Q8HRS IV Last administered on 10/31/18at 21:10; Start 10/29/18 at 14:00; Stop 11/01/18 at 01:28; Status DC Prednisone (Prednisone) 40 mg BID PO Last administered on 11/01/18at 08:31; Start 11/01/18 at 09:00 Active Scripts Active Prednisone (Prednisone) 10 Mg Tablet 30 Mg PO DAILY Mucinex (Guaifenesin) 600 Mg Tablet.er 600 Mg PO BID Hydrocodone-Apap 10-325 (Hydrocodone Bit/Acetaminophen) 1 Each Tablet 1 Tab PO PRN Q6HRS PRN Doxycycline Hyclate 100 Mg Tablet 100 Mg PO BID 5 Days [place] 5-325 Tablet (Acetaminophen/Hydrocodone Bitart) 1 Each Tablet 1-2 Tab PO Q4-6HRS Reported Percocet 5-325 Mg Tablet (Oxycodone/Acetaminophen) 1 Each Tablet 1 Tab PO PRN Q6HRS PRN Zofran Odt (Ondansetron) 8 Mg Tab.rapdis 8 Mg PO BID PRN Aspir 81 (Aspirin) 81 Mg Tablet. 1 Tab PO DAILY Metoprolol Succinate ( Xl ) (Metoprolol Succinate) 25 Mg Tab.er.24h 12.5 Mg PO DAILY Vitamin D3 (Cholecalciferol (Vitamin D3)) 1,000 Unit Tablet 1 Tab PO DAILY Torsemide 20 Mg Tablet 1 Tab PO DAILY Gabapentin (Gabapentin) 100 Mg Capsule 100 Mg PO TID Ferrous Sulfate 325 Mg Tablet 1 Tab PO DAILY Daliresp (Roflumilast) 500 Mcg Tablet 1 Tab PO DAILY Atorvastatin Calcium 20 Mg Tablet 20 Mg PO HS Amitriptyline Hcl 10 Mg Tablet 1-2 Tab PO QHS Alendronate Sodium 70 Mg Tablet 1 Tab PO WEEKLY Requip (Ropinirole Hcl) 1 Mg Tablet 3 Tab PO QHS Proair Hfa Inhaler (Albuterol Sulfate) 8.5 Gm Hfa.aer.ad 1 Puff INH PRN Q6HRS PRN Potassium Citrate 10 Meq Tablet.er 20 Meq PO DAILY Protonix (Pantoprazole Sodium) 40 Mg Tablet. 1 Tab PO DAILY Lidocaine 1 Each Adh..patch 1 Each TP Levothyroxine Sodium 50 Mcg Tablet 1 Tab PO DAILY Vitals/I & O Vital Sign - Last 24 Hours 10/31/18 10/31/18 10/31/18 10/31/18 14:06 15:00 15:00 15:10 Temp 98.1 98.1 Pulse 95 Resp 17 B/P (MAP) 119/57 (77) Pulse Ox 90 99 O2 Delivery Nasal Cannula Nasal Cannula Nasal Cannula Nasal Cannula O2 Flow Rate 2.0 18.0 2.0 2.0 10/31/18 10/31/18 10/31/18 10/31/18 17:34 19:00 19:42 19:56 Temp 98.4 98.4 Pulse 89 Resp 18 B/P (MAP) 121/43 (69) Pulse Ox 94 96 O2 Delivery Nasal Cannula Nasal Cannula Nasal Cannula Nasal Cannula O2 Flow Rate 2.0 2.0 2.0 2.0 10/31/18 10/31/18 10/31/18 10/31/18 21:09 21:51 22:09 23:00 Temp 98.4 97.6 98.4 97.6 Pulse 89 76 Resp 18 18 18 16 B/P (MAP) 121/43 (69) 127/62 (83) Pulse Ox 96 90 90 93 O2 Delivery Nasal Cannula Nasal Cannula Nasal Cannula Nasal Cannula O2 Flow Rate 2.0 2.0 2.0 2.0 11/01/18 11/01/18 11/01/18 11/01/18 03:00 07:00 08:00 08:31 Temp 97.9 98.2 97.9 98.2 Pulse 74 66 66 Resp 16 17 B/P (MAP) 128/56 (80) 146/64 (91) 146/64 Pulse Ox 92 97 O2 Delivery Nasal Cannula Nasal Cannula Nasal Cannula O2 Flow Rate 2.0 2.0 3.0 11/01/18 11/01/18 11/01/18 11/01/18 08:32 08:54 11:00 11:39 Temp 97.5 97.5 Pulse 66 Resp 17 B/P (MAP) 114/63 (80) Pulse Ox 92 97 93 93 O2 Delivery Nasal Cannula Nasal Cannula Nasal Cannula Nasal Cannula O2 Flow Rate 2.0 3.0 2.0 2.0 Intake and Output 10/31/18 10/31/18 11/01/18 15:01 23:01 07:01 Intake Total 420 ml 360 ml 320 ml Output Total 1 ml Balance 419 ml 360 ml 320 ml CAMILA MORELOS MD Nov 01, 2018 11:40
--- NOTE | 2018-11-01 12:50 | PDOC3 ---
Discharge Summary Date of Admission: Oct 26, 2018 Date of Discharge: Nov 01, 2018 Follow-Up: 1-2 days Admitting Diagnosis comment: discharge dx Chief Complaint Severe acute exacerbation of COPD chronic obstructive pulmonary disease exacerbation , IV antibiotics. WBC improved 5.8 on 10/27/18. sepsis known Immune deficiency, NOS, got IgG infusion at home 10/25, per [facility] vasomotor nephropathy, in the background of diuretic use- HTN-chronic stable Hypothyroidism on replacement Dyslipidemia on statin malnutrition, POA, serum alb 2.8 iv steroids inc 10/30 CONTINUES to have moderate wheezing and rhonchi on exp all lung connell 11/01, has o2 at home, plan home with home health today plan sputum cult, cxr today, flu screen repeat History of Present Illness History of Present Illness still weak, doing well with PT less cough, creatinine improved Vitals Vitals Vital Signs Date Time Temp Pulse Resp B/P (MAP) Pulse Ox O2 Delivery O2 Flow Rate FiO2 11/01/18 11:39 93 Nasal Cannula 2.0 11/01/18 11:00 97.5 66 17 114/63 (80) 97.5 Physical Exam General: Alert, Oriented X3, Cooperative, No acute distress, mild distress Heart: Normal S1, Normal S2 Lungs: Wheezing, Other (rhonchi) Abdomen: Normal bowel sounds, Soft, No tenderness, No hepatosplenomegaly, No masses Extremities: No clubbing, No cyanosis, No edema, Normal pulses, No tenderness/ swelling Skin: No rashes, No breakdown, No significant lesion FINAL DIAGNOSIS Problems Medical Problems: (1) Bandemia Status: Acute (2) COPD exacerbation Status: Acute Brief Hospital Course Ms. Mathur is a 63 old [sex] who presented with [COPD EXAC, ACUTE ] CONDITION AT DISCHARGE: Improved Discharge Medications Current Medications Albuterol/ Ipratropium (Duoneb) 3 ml 1X ONCE NEB Last administered on at 16:13; Start 10/25/18 at 16:00; Stop 10/25/18 at 16:01; Status DC Methylprednisolone Sodium Succinate (SOLU-Medrol 125MG VIAL) 125 mg 1X ONCE IV Last administered on 10/25/18at 16:16; Start 10/25/18 at 16:00; Stop 10/25/18 at 16:01; Status DC Acetaminophen (Tylenol) 650 mg 1X ONCE PO Last administered on 10/25/18at 16:14 ; Start 10/25/18 at 16:00; Stop 10/25/18 at 16:01; Status DC Sodium Chloride 1,000 ml @ 1,000 mls/hr 1X ONCE IV Last administered on at 16:36; Start 10/25/18 at 16:45; Stop 10/25/18 at 17:50; Status DC Ceftriaxone Sodium (Rocephin) 1 gm 1X ONCE IVP ; Start 10/25/18 at 17:00; Stop 10/25/18 at 17:01; Status UNV Azithromycin 250 ml @ 250 mls/hr 1X ONCE IV ; Start 10/25/18 at 17:00; Stop at 17:59; Status Cancel Albuterol/ Ipratropium (Duoneb) 3 ml 1X ONCE NEB Last administered on at 18:00; Start 10/25/18 at 17:00; Stop 10/25/18 at 17:06; Status DC Levofloxacin/ Dextrose 150 ml @ 100 mls/hr 1X ONCE IV Last administered on at 17:58; Start 10/25/18 at 17:15; Stop 10/25/18 at 18:44; Status DC Acetaminophen (Tylenol) 650 mg PRN Q4HRS PRN PO FEVER; Start 10/25/18 at 17:15 ; Stop 10/26/18 at 17:14; Status DC Albuterol/ Ipratropium (Duoneb) 3 ml RTQID NEB Last administered on 10/26/18at 15:14; Start 10/25/18 at 20:00; Stop 10/26/18 at 20:12; Status DC Benzonatate (Tessalon Perle) 100 mg [id number] PO Last administered on 11/01/18at 08 :32; Start 10/25/18 at 21:00 Guaifenesin (Robitussin Dm) 10 ml PRN Q6HRS PRN PO COUGH 1ST CHOICE Last administered on 10/27/18at 21:26; Start 10/25/18 at 17:30; Stop 10/28/18 at 09:54 ; Status DC Diphenhydramine HCl (Benadryl) 25 mg PRN QHS PRN PO INSOMNIA; Start 10/25/18 at 17:30 Ondansetron HCl (Zofran) 4 mg PRN Q6HRS PRN IV NAUSEA/VOMITING Last administered on 10/31/18 11:37; Start 10/25/18 at 17:30 Ondansetron HCl (Zofran Odt) 4 mg PRN Q6HRS PRN PO NAUSEA/VOMITING; Start 10/25 at 17:30 Amitriptyline HCl (Elavil) 20 mg QHS PO Last administered on 10/31/18 21:09; Start 10/25/18 at 21:00 Aspirin (Ecotrin) 81 mg DAILY07 PO Last administered on 11/01/18 05:26; Start 10/25/18 at 18:00 Atorvastatin Calcium (Lipitor) 20 mg HS PO Last administered on 10/31/18 21:09 ; Start 10/25/18 at 21:00 Vitamin D (Vitamin D3) 1,000 unit DAILY PO Last administered on 11/01/18 08:32 ; Start 10/25/18 at 18:00 Ferrous Sulfate (Feosol) 325 mg DAILY08 PO Last administered on 11/01/18 08:32 ; Start 10/25/18 at 18:00 Gabapentin (Neurontin) 100 mg TID PO Last administered on 11/01/18 08:32; Start 10/25/18 at 21:00 Acetaminophen/ Hydrocodone Bitart (Lortab 10/325) 1 tab PRN Q6HRS PRN PO MODERATE-SEVERE PAIN Last administered on 11/01/18 08:32; Start 10/25/18 at 17: 30 Acetaminophen/ Hydrocodone Bitart (Lortab 5/325) 1 tab QID PO Last administered on 10/31/18 21:09; Start 10/25/18 at 21:00 Metoprolol Succinate (Toprol Xl) 12.5 mg DAILY PO Last administered on 08:31; Start 10/25/18 at 18:00 Oxycodone/ Acetaminophen (Percocet 5/325) 1 tab PRN Q6HRS PRN PO PAIN severe 2nd choice Last administered on 10/28/18 04:54; Start 10/25/18 at 17:30 Pantoprazole Sodium (Protonix) 40 mg DAILY07 PO Last administered on 11/01/18 05:26; Start 10/25/18 at 18:00 Potassium Citrate (Urocit-K) 20 meq DAILY08 PO Last administered on 11/01/18 08:32; Start 10/25/18 at 18:00 Non-Formulary Medication (Alendronate Sodium ) 1 tab WEEKLY PO ; Start 11/01/18 at 09:00; Status UNV Levothyroxine Sodium (Synthroid) 50 mcg DAILY06 PO Last administered on 05:26; Start 10/25/18 at 18:00 Non-Formulary Medication (Ondansetron (Zofran Odt)) 8 mg BID PRN PO NAUSEA/ VOMITING; Start 10/25/18 at 17:30; Status UNV Roflumilast (Daliresp) 500 mcg DAILY PO Last administered on 11/01/18 08:31; Start 10/25/18 at 18:00 Ropinirole HCl (Requip) 3 mg QHS PO Last administered on 10/31/18at 21:09; Start 10/25/18 at 21:00 Torsemide (Demadex) 20 mg DAILY PO Last administered on 11/01/18 08:32; Start 10/25/18 at 18:00 Albuterol Sulfate (Ventolin Neb Soln) 2.5 mg PRN Q4HRS PRN NEB SHORTNESS OF BREATH; Start 10/25/18 at 18:15 Methylprednisolone Sodium Succinate (SOLU-Medrol 40MG VIAL) 60 mg Q8HRS IV Last administered on 10/29/18at 06:10; Start 10/25/18 at 22:00; Stop 10/29/18 at 08:39; Status DC Temazepam (Restoril) 7.5 mg PRN QHS PRN PO INSOMNIA; Start 10/25/18 at 20:00 Levofloxacin/ Dextrose (Levaquin Per Pharmacy) 1 each PRN DAILY PRN [facility] SEE COMMENTS; Start 10/25/18 at 20:00; Status Cancel Levofloxacin/ Dextrose 50 ml @ 50 mls/hr Q24H IV ; Start 10/26/18 at 17:00; Stop 10/26/18 at 17:00; Status DC Levofloxacin (Levaquin) 500 mg DAILY16 PO Last administered on 1/29/19at 16:12 ; Start 10/26/18 at 16:00 Levofloxacin/ Dextrose (Levaquin Per Pharmacy) 1 each PRN DAILY PRN [facility] SEE COMMENTS; Start 10/26/18 at 08:15 Lactobacillus Rhamnosus (Culturelle) 1 cap BID PO Last administered on at 08:48; Start 10/26/18 at 21:00; Stop 10/28/18 at 10:06; Status DC Albuterol/ Ipratropium (Duoneb) 3 ml RTQID NEB Last administered on 11/01/18 08:53; Start 10/26/18 at 20:00 Throat Lozenges (Chloraseptic) 1 spray PRN Q2HR PRN PO SORE THROAT Last administered on 10/27/18 16:43; Start 10/27/18 at 11:15 Fluticasone Propionate (Flonase) 2 spray DAILY NS Last administered on 08:33; Start 10/28/18 at 09:00 Guaifenesin (Robitussin Dm) 10 ml PRN Q6HRS PRN PO COUGH Last administered on at 21:11; Start 10/28/18 at 10:00 Throat Lozenges (Cepacol Sore Throat Lozenge) 1 venancio PRN Q2HRS PRN PO SORE THROAT; Start 10/28/18 at 10:00 Methylprednisolone Sodium Succinate (SOLU-Medrol 40MG VIAL) 80 mg Q8HRS IV Last administered on 10/31/18at 21:10; Start 10/29/18 at 14:00; Stop 11/01/18 at 01:28; Status DC Prednisone (Prednisone) 40 mg BID PO Last administered on 11/01/18at 08:31; Start 11/01/18 at 09:00 Active Scripts Active Prednisone (Prednisone) 10 Mg Tablet 30 Mg PO DAILY Mucinex (Guaifenesin) 600 Mg Tablet.er 600 Mg PO BID Hydrocodone-Apap 10-325 (Hydrocodone Bit/Acetaminophen) 1 Each Tablet 1 Tab PO PRN Q6HRS PRN Doxycycline Hyclate 100 Mg Tablet 100 Mg PO BID 5 Days [place] 5-325 Tablet (Acetaminophen/Hydrocodone Bitart) 1 Each Tablet 1-2 Tab PO Q4-6HRS Reported Percocet 5-325 Mg Tablet (Oxycodone/Acetaminophen) 1 Each Tablet 1 Tab PO PRN Q6HRS PRN Zofran Odt (Ondansetron) 8 Mg Tab.rapdis 8 Mg PO BID PRN Aspir 81 (Aspirin) 81 Mg Tablet. 1 Tab PO DAILY Metoprolol Succinate ( Xl ) (Metoprolol Succinate) 25 Mg Tab.er.24h 12.5 Mg PO DAILY Vitamin D3 (Cholecalciferol (Vitamin D3)) 1,000 Unit Tablet 1 Tab PO DAILY Torsemide 20 Mg Tablet 1 Tab PO DAILY Gabapentin (Gabapentin) 100 Mg Capsule 100 Mg PO TID Ferrous Sulfate 325 Mg Tablet 1 Tab PO DAILY Daliresp (Roflumilast) 500 Mcg Tablet 1 Tab PO DAILY Atorvastatin Calcium 20 Mg Tablet 20 Mg PO HS Amitriptyline Hcl 10 Mg Tablet 1-2 Tab PO QHS Alendronate Sodium 70 Mg Tablet 1 Tab PO WEEKLY Requip (Ropinirole Hcl) 1 Mg Tablet 3 Tab PO QHS Proair Hfa Inhaler (Albuterol Sulfate) 8.5 Gm Hfa.aer.ad 1 Puff INH PRN Q6HRS PRN Potassium Citrate 10 Meq Tablet.er 20 Meq PO DAILY Protonix (Pantoprazole Sodium) 40 Mg Tablet.dr 1 Tab PO DAILY Lidocaine 1 Each Adh..patch 1 Each TP Levothyroxine Sodium 50 Mcg Tablet 1 Tab PO DAILY Vital Signs Vital Signs Date Time Temp Pulse Resp B/P (MAP) Pulse Ox O2 Delivery O2 Flow Rate FiO2 11/01/18 11:39 93 Nasal Cannula 2.0 11/01/18 11:00 97.5 66 17 114/63 (80) 97.5 Labs Laboratory Tests Test 10/31/18 04:40 White Blood Count 5.1 x10^3/uL (4.0-11.0) Red Blood Count 3.58 x10^6/uL (3.50-5.40) Hemoglobin 11.4 g/dL (12.0-15.5) Hematocrit 33.5 % (36.0-47.0) Mean Corpuscular Volume 94 fL (79-100) Mean Corpuscular Hemoglobin 32 pg (25-35) Mean Corpuscular Hemoglobin Concent 34 g/dL (31-37) Red Cell Distribution Width 13.0 % (11.5-14.5) Platelet Count 155 x10^3/uL (140-400) Neutrophils (%) (Auto) 81 % (31-73) Lymphocytes (%) (Auto) 13 % (24-48) Monocytes (%) (Auto) 5 % (0-9) Eosinophils (%) (Auto) 0 % (0-3) Basophils (%) (Auto) 0 % (0-3) Neutrophils # (Auto) 4.1 x10^3uL (1.8-7.7) Lymphocytes # (Auto) 0.7 x10^3/uL (1.0-4.8) Monocytes # (Auto) 0.3 x10^3/uL (0.0-1.1) Eosinophils # (Auto) 0.0 x10^3/uL (0.0-0.7) Basophils # (Auto) 0.0 x10^3/uL (0.0-0.2) Sodium Level 139 mmol/L (136-145) Potassium Level 4.9 mmol/L (3.5-5.1) Chloride Level 96 mmol/L (98-107) Carbon Dioxide Level 42 mmol/L (21-32) Anion Gap 1 (6-14) Blood Urea Nitrogen 27 mg/dL (7-20) Creatinine 1.3 mg/dL (0.6-1.0) Estimated GFR (Cockcroft-Gault) 41.2 BUN/Creatinine Ratio 21 (6-20) Glucose Level 176 mg/dL (70-99) Calcium Level 9.1 mg/dL (8.5-10.1) Total Bilirubin 0.3 mg/dL (0.2-1.0) Aspartate Amino Transf (AST/SGOT) 31 U/L (15-37) Alanine Aminotransferase (ALT/SGPT) 23 U/L (14-59) Alkaline Phosphatase 44 U/L (46-116) Total Protein 6.5 g/dL (6.4-8.2) Albumin 2.6 g/dL (3.4-5.0) Albumin/Globulin Ratio 0.7 (1.0-1.7) Allergies Allergies Coded Allergies Type Severity Reaction Last Updated Verified ibuprofen Allergy Severe Swelling 08/09/18 Yes naproxen Allergy Severe Shortness of Air 10/25/18 Yes piperacillin Allergy Severe Swelling 08/09/18 Yes tazobactam Allergy Severe Swelling 08/09/18 Yes Disposition/Orders: D/C to Home w/ HH CAMILA MORELOS MD Nov 01, 2018 12:50
--- NOTE | 2018-11-01 12:51 | DISCH ---
DISCHARGE WITH HOME HEALTH DISCHARGE INFORMATION: Final Diagnosis: Problems Medical Problems: (1) Bandemia Status: Acute (2) COPD exacerbation Status: Acute Condition on Discharge: Stable CODE STATUS: Code Status: Full HOME HEALTH: Face to Face: I certify this patient is under my care and that I, or a nurse practitioner or physician's public health training assistant working with me, had a face to face encounter that meets the physician face to face encounter requirements with this patient on []. Medical Complications: COPD [facility] For: Assess Cardiopulm Status, Assess & Educate Safety, Medication Management Physical Therapy For: Evalulation/Treatment Occupational Therapy For: Evaluation/Treatment Speech Language Pathology For: Evaluation/Treatment Home Health Aide For: Self-care [employer] P[employer]ER For: Community Resources Pt Meets Homebound Status: Fatigue w/ amb. POST DISCHARGE ORDERS: Activity Instructions for Disc: No restrictions, Activity as tolerated Weight Bearing Status after Di: Non weight bearing DIET AFTER DISCHARGE: Cardiac Wound/Incision Care: Change dressing CHECKS AFTER DISCHARGE: Checks after discharge: Check blood press - daily, Check blood sugar, ac/hs, Weigh Yourself Daily TREATMENT/EQUIPMENT ORDERS: Adaptive Equipment Issued: None Discharge Respiratory Equipmen: Oxygen CERTIFICATION STATEMENT: Certification Statement: Certification Statement: Based on the above finding, I certify that this patient is confined to the home and needs intermittent long term care, physical therapy and/or speech therapy, or continues to need occupational therapy.~ This patient is under my care, and I have initiated the establishment of the plan of care.~ This patient will be followed by myself or a community physician who will periodically review the plan of care. Home Meds Active Scripts Prednisone (PREDNISONE ) 10 Mg Tablet, 30 MG PO DAILY for copd, #25 TAB Prov:MARYJANE CLEANING MD 08/13/18 Guaifenesin (MUCINEX) 600 Mg Tablet.er, 600 MG PO BID for cough, #10 TAB.SR Prov:MARYJANE CLEANING MD 08/13/18 Hydrocodone Bit/Acetaminophen (HYDROCODONE-APAP 10-325 ) 1 Each Tablet, 1 TAB PO PRN Q6HRS PRN for MODERATE-SEVERE PAIN, #20 TAB Prov:MARYJANE CLEANING MD 08/13/18 Doxycycline Hyclate (DOXYCYCLINE HYCLATE) 100 Mg Tablet, 100 MG PO BID for copd for 5 Days, #10 TAB Prov:MARYJANE CLEANING MD 08/13/18 Hydrocodone/Apap 5-325 (NORCO 5-325 TABLET) 1 Each Tablet, 1-2 TAB PO Q4-6HRS, # 15 TAB Prov:SIMRAN MURRY 06/24/18 Reported Medications Oxycodone/Apap 5-325 (PERCOCET 5-325 MG TABLET ) 1 Each Tablet, 1 TAB PO PRN Q6HRS PRN for PAIN, TAB 0 Refills 08/09/18 Ondansetron (ZOFRAN ODT) 8 Mg Tab.rapdis, 8 MG PO BID PRN for NAUSEA/VOMITING, TAB 08/09/18 Aspirin (ASPIR 81) 81 Mg Tablet.dr, 1 TAB PO DAILY, #30 TAB 5 Refills 01/03/18 Metoprolol Succinate (METOPROLOL SUCCINATE ( XL )) 25 Mg Tab.er.24h, 12.5 MG PO DAILY for FOR HYPERTENSION, #30 TAB 0 Refills 01/03/18 Cholecalciferol (Vitamin D3) (VITAMIN D3) 1,000 Unit Tablet, 1 TAB PO DAILY, # 30 TAB 5 Refills 01/02/18 Torsemide (TORSEMIDE) 20 Mg Tablet, 1 TAB PO DAILY, #90 TAB 1 Refill 01/02/18 Gabapentin (GABAPENTIN ) 100 Mg Capsule, 100 MG PO TID, CAP 01/02/18 Ferrous Sulfate (FERROUS SULFATE) 325 Mg Tablet, 1 TAB PO DAILY, #30 TAB 3 Refills 09/23/17 Roflumilast (DALIRESP) 500 Mcg Tablet, 1 TAB PO DAILY, #90 TAB 3 Refills 09/23/17 Atorvastatin Calcium (ATORVASTATIN CALCIUM) 20 Mg Tablet, 20 MG PO HS for FOR CHOLESTEROL, #30 TAB 0 Refills 09/23/17 Amitriptyline Hcl (AMITRIPTYLINE HCL) 10 Mg Tablet, 1-2 TAB PO QHS, #30 TAB 1 Refill 09/23/17 Alendronate Sodium (ALENDRONATE SODIUM) 70 Mg Tablet, 1 TAB PO WEEKLY, #4 TAB 3 Refills 09/23/17 Ropinirole Hcl (REQUIP) 1 Mg Tablet, 3 TAB PO QHS, #30 TAB 2 Refills 09/23/17 Albuterol Sulfate (PROAIR HFA INHALER) 8.5 Gm Hfa.aer.ad, 1 PUFF INH PRN Q6HRS PRN for SHORTNESS OF BREATH, INHALER 0 Refills 09/23/17 Potassium Citrate (POTASSIUM CITRATE) 10 Meq Tablet.er, 20 MEQ PO DAILY, TAB.SR 09/23/17 Pantoprazole Sodium (PROTONIX) 40 Mg Tablet.dr, 1 TAB PO DAILY, #30 TAB 5 Refills 09/23/17 Lidocaine (Lidocaine) 1 Each Adh..patch, 1 EACH TP, PATCH 09/23/17 Levothyroxine Sodium (LEVOTHYROXINE SODIUM) 50 Mcg Tablet, 1 TAB PO DAILY, #30 TAB 5 Refills 09/23/17 CAMILA MORELOS MD Nov 01, 2018 12:51
[2018-11-01] MEDS ORDERED: LEVO500T59 PO (12:56)
[2018-11-01] MEDS ORDERED: IPRA3AMP29 NEB (12:56)
[2018-11-01] MEDS ORDERED: FLUT16SP NS (12:56)
[2018-11-01] MEDS ORDERED: PRED20TA PO (12:56)
--- NOTE | 2018-11-01 13:43 | RAD ---
CHEST PA LATERAL History: wheezing short of air Comparison: AP chest October 25, 2018. Findings: Left chest dual-chamber biventricular ICD. The cardiomediastinal silhouette is normal. Mild interstitial marking prominence is stable, likely chronic. Mild bibasilar atelectasis. No pleural effusion or pneumothorax is seen. There is no acute bone abnormality. IMPRESSION: Mild bibasilar atelectasis. Electronically signed by: Alvin Hayden MD (11/01/2018 1:38 PM) [id number]
--- NOTE | 2018-11-01 14:36 | NUR ---
SW following pt. Discussed with pt about HH options and pt agreeable with [facility]. Zulma from [facility] will assist to with setting up HH. SW asked pt needs transportation and pt reported she wants to see the result of her chest x-ray first before thinking about transport. BHARAT RN.
[2018-11-01 15:00] VITALS: BP 126/59
[2018-11-01 15:00] LABS: INFLUENZA A PATIENT NEGATIVE (NEGATIVE); INFLUENZA B PATIENT NEGATIVE (NEGATIVE)
--- NOTE | 2018-11-01 15:50 | NUR ---
HEIKE Spoke with pt in room and informed her she is discharging home with home health services. Dr. Diego discussed with pt her chest x-ray is clear and can dc home with home health services. also discussed hospital is not doing anything different that she can't do at home with home health. RN also has informed pt her Flu test is negative. Pt upset about dc but is agreeable with going home. Home health nurse will see pt tomorrow.
--- NOTE | 2018-11-01 16:13 | NUR ---
Discharge Note: JAYCOB CRAWFORD Discharge instructions and discharge home medications reviewed with Patient and a copy given. All questions have been answered and understanding verbalized. The following instructions and handouts were given: ADVISED PATIENT WILL DISCHARGE WITH [facility]. PATIENT UPSET ABOUT DISCHARGING. PATIENT NOT WILLING TO PARTICIPATE IN DISCHARGE INSTRUCTIONS. Discontinued lines and drains: Peripheral IV intact. Patient discharged to Home w/services with Spouse via Wheelchair.
== END 2018-11-01 16:00 | disposition home health service (06) | DRG 871 ==
LOC: ER 15:42 → 5 NORTH 17:00
PROVIDERS: ADMIT Internal Medicine; ATTEND Internal Medicine
DX: A41.9 Sepsis, unspecified organism (principal); N17.0 Acute kidney failure with tubular necrosis; J96.21 Acute and chronic respiratory failure with hypoxia; J44.1 Chronic obstructive pulmonary disease with (acute) exacerbation; D84.9 Immunodeficiency, unspecified; E46 Unspecified protein-calorie malnutrition; D70.9 Neutropenia, unspecified; E03.9 Hypothyroidism, unspecified; E11.9 Type 2 diabetes mellitus without complications; E78.00 Pure hypercholesterolemia, unspecified; E78.5 Hyperlipidemia, unspecified; F17.210 Nicotine dependence, cigarettes, uncomplicated; F32.9 Major depressive disorder, single episode, unspecified; I11.0 Hypertensive heart disease with heart failure; I25.10 Atherosclerotic heart disease of native coronary artery without angina pectoris; I50.9 Heart failure, unspecified; M19.90 Unspecified osteoarthritis, unspecified site; J30.9 Allergic rhinitis, unspecified; Z96.659 Presence of unspecified artificial knee joint; Z80.3 Family history of malignant neoplasm of breast; Z80.42 Family history of malignant neoplasm of prostate; Z82.49 Family history of ischemic heart disease and other diseases of the circulatory system; Z90.710 Acquired absence of both cervix and uterus; Z88.8 Allergy status to other drugs, medicaments and biological substances; Z99.81 Dependence on supplemental oxygen; Z68.27 Body mass index [BMI] 27.0-27.9, adult; Z90.49 Acquired absence of other specified parts of digestive tract; Z71.6 Tobacco abuse counseling
CPT/HCPCS: 36415; 71045; 71046; 71250; 80048; 80053; 81001; 83605; 83735; 83880; 84484; 85007; 85025; 87040; 87804; 93005; 94640; 94760; 96361; 96365; 96375; J1956; J2405; J2920; J2930; J7030; J7512; J7620; 97116; 97530; 97535; 99285-25; G0378

== ENCOUNTER → 2019-01-05 | Outpatient (CLI) | payer MEDICARE, OTHER ==
[~2019-01-05] MED LIST changes: +BUPIVACAINE MPF 0.5% 10 ML VIAL for KCIC. IJ ONE; +FLUT16SP NS; +IPRA3AMP29 NEB; +LEVO500T59 PO; -LIDO700A21 TP; +LIDO700A39 TP; +LIDOCAINE 1% Multi-Dose 20 ML VIAL. ID ONE; +PANT40TA3 PO; -PANT40TA77 PO; +PRED20TA PO; +methylPREDNISolone ACETATE 40 MG/ML VIAL. INT ART ONE
--- NOTE | 2019-01-05 16:47 | KCIC ---
Therapeutic right and left bicipital groove injection using fluoroscopic guidance. HISTORY: Pain. TECHNIQUE The procedure was explained to the patient as were potential risks, including among others infection, bleeding or allergic reaction. All questions were answered. Informed written consent was obtained. The anterior right shoulder was prepped and draped in the usual sterile manner. Following administration of local anesthetic, a 22-gauge needle was advanced to the bicipital groove without difficulty. Following negative aspiration, a mixture of 1 cc (40 mg) Depo-Medrol, 1 cc lidocaine and 1 cc 0.5% Marcaine were injected without difficulty. The needle was removed. There was good hemostasis at the injection site. The above procedure was then repeated at the left shoulder and a mixture of 1 cc (40 mg) Depo-Medrol, 1 cc lidocaine and 1 cc 0.5% Marcaine was injected into the left biceps tendon sheath without difficulty. 2 spot images are obtained. FLUOROSCOPY TIME: 38 seconds Electronically signed by: Jamie Nguyen MD (01/05/2019 4:44 PM) [facility]
== END | disposition home or self-care (01) ==
LOC: KCIC 13:53
PROVIDERS: ATTEND Orthopaedic Surgery Sports Medicine
DX: M75.21 Bicipital tendinitis, right shoulder (principal); M75.22 Bicipital tendinitis, left shoulder; J44.9 Chronic obstructive pulmonary disease, unspecified; Z95.0 Presence of cardiac pacemaker; Z88.8 Allergy status to other drugs, medicaments and biological substances; Z98.42 Cataract extraction status, left eye; Z98.41 Cataract extraction status, right eye; Z96.1 Presence of intraocular lens; F17.210 Nicotine dependence, cigarettes, uncomplicated; Z79.82 Long term (current) use of aspirin; Z79.899 Other long term (current) drug therapy; Z88.0 Allergy status to penicillin
CPT/HCPCS: 20550; 77002; J1030; 20605

== ENCOUNTER → 2019-05-03 | Outpatient (CLI) | payer MEDICARE, OTHER ==
[~2019-05-03] MED LIST changes: -BUPIVACAINE MPF 0.5% 10 ML VIAL for KCIC. IJ ONE; +LIDO700A21 TP; -LIDO700A39 TP; -LIDOCAINE 1% Multi-Dose 20 ML VIAL. ID ONE; -PANT40TA3 PO; +PANT40TA77 PO; -methylPREDNISolone ACETATE 40 MG/ML VIAL. INT ART ONE
--- NOTE | 2019-05-03 11:11 | CARD ---
MR#: [id number] Date of Study: 05/03/2019 Ordering Physician: SAMM CRUZ, Referring Physician: SAMM CRUZ Tech: Eva Levi RDCS APPROVED REPORT EXAM: Two-dimensional and M-mode echocardiogram with Doppler and color Doppler. Other Information Quality : AverageHR: 65bpm Rhythm : NSR INDICATION Cardiomyopathy 2D DIMENSIONS RVDd3.1 (2.9-3.5cm)Left Atrium(2D)3.0 (1.6-4.0cm) IVSd0.7 (0.7-1.1cm)Aortic Root(2D)2.7 (2.0-3.7cm) LVDd5.2 (3.9-5.9cm)LVOT Diameter1.7 (1.8-2.4cm) PWd0.8 (0.7-1.1cm)LVDs3.6 (2.5-4.0cm) FS (%) 31.7 %SV77.4 ml LVEF(%)59.3 (>50%) M-Mode DIMENSIONS Left Atrium(MM)3.55 (2.5-4.0cm)Aortic Root2.70 (2.2-3.7cm) Aortic Valve AoV Peak Toni.124.1cm/sAoV VTI21.0cm AO Peak GR.6.2mmHgLVOT Peak Toni.89.4cm/s AO Mean GR.3mmHgAVA (VMAX)1.73cm2 GUERRERO (VTI)1.70cm2 Mitral Valve MV E Ckaymgez78.3cm/sMV DECEL VULV427tr MV A Rvtakgxh49.0cm/sE/A Ratio1.2 Pulmonary Valve PV Peak Tbakbcbu679.4cm/s Tricuspid Valve TR P. Xwokmgcg568ve/sRAP [id number] TR Peak Gr.92fmNrRNQH43zlYv LEFT VENTRICLE The left ventricle is normal size. There is normal left ventricular wall thickness. The left ventricu lar systolic function is normal and the ejection fraction is within normal range. The Ejection Fracti on is 55%. Septal motion consistent with conduction abnormality. Transmitral Doppler flow pattern is Grade II-pseudonormal filling dynamics. RIGHT VENTRICLE The right ventricle is normal size. There is normal right ventricular wall thickness. The right ventr icular systolic function is normal. Pacer lead noted in RV/RA. ATRIA The left atrium size is normal. The right atrium size is normal. The interatrial septum is intact wit h no evidence for an atrial septal defect or patent foramen ovale as noted on 2-D or Doppler imaging. AORTIC VALVE The aortic valve is normal in structure and function. The aortic valve is trileaflet. Doppler and Col or Flow revealed no significant aortic regurgitation. There is no significant aortic valvular stenosi s. There is no aortic valvular vegetation. MITRAL VALVE The mitral valve is thickened but opens well. There is no evidence of mitral valve prolapse. There is no mitral valve stenosis. Doppler and Color-flow revealed mild to moderate mitral regurgitation. TRICUSPID VALVE The tricuspid valve is normal in structure and function. Doppler and Color Flow revealed trace tricus pid regurgitation. The PA pressure was estimated at 25 mmHg. There is no tricuspid valve prolapse or vegetation. There is no tricuspid valve stenosis. PULMONIC VALVE The pulmonic valve is not well visualized. GREAT VESSELS The aortic root is normal in size. The ascending aorta is normal in size. The IVC is normal in size a nd collapses >50% with inspiration. PERICARDIAL EFFUSION There is no evidence of significant pericardial effusion. Critical Notification Critical Value: No <Conclusion> The left ventricular systolic function is normal and the ejection fraction is within normal range. Th e Ejection Fraction is 55%. Septal motion consistent with conduction abnormality. Pacer lead noted in RV/RA. Doppler and Color-flow revealed mild to moderate mitral regurgitation. Signed by : Hair Garza, Electronically Approved : 05/03/2019 11:10:30
== END | disposition home or self-care (01) ==
LOC: ECHO 09:45
PROVIDERS: ATTEND Internal Medicine Cardiovascular Disease
DX: I34.1 Nonrheumatic mitral (valve) prolapse (principal); I42.8 Other cardiomyopathies
CPT/HCPCS: 93306

== ENCOUNTER 2019-07-29 17:12 | Inpatient (IN) | payer MEDICARE, OTHER ==
[~2019-07-29] VITALS: Ht 152.4 cm; Wt 69.0 kg
[2019-07-29] MEDS ORDERED: methylPREDNISolone SOD SUCC PF 125 MG/2 ML VIAL. IV STA ×2 (17:40→18:42)
[2019-07-29] MEDS ORDERED: IPRATRPIUM/ALBUTEROL 0.5/2.5MG 3 ML NEBU. NEB ONE (17:45)
--- NOTE | 2019-07-29 17:46 | PHYS DOC ---
Past Medical History Past Medical History: CAD, CHF, COPD, Diabetes-Type II, High Cholesterol, Hypertension, Hypothyroid (JAMIE MINOR APRN) Past Surgical History: Cholecystectomy, , Hysterectomy, Knee Replacement, Other Additional Past Surgical Histo: left shoulder (JAMIE MINOR APRN) Alcohol Use: None Drug Use: None (JAMIE MINOR APRN) Adult General Chief Complaint Chief Complaint: COUGH HPI HPI Patient is a 64 year old female that presents for shortness of breath, productive cough, and chest pain. The patient states that the shortness of breath started ongoing for last 2 months however is gotten worse over last 2 weeks she was put on some steroids 2 weeks ago to try to stop a COPD exacerbation. She states the last several days is gotten worse. She took an aspirin last night up she noticed that she had 101 temperature at home. She also is has been taking Robitussin for cough. The patient has a history of CHF, COPD, and is normally on 2 L of oxygen night. The patient states that she also smokes several cigarettes a day still. She states this today she's noticed that she's been having some left-sided chest pain as well. The patient also states that her pain level 6 out of 10 in severity and sharp. (JAMIE MINOR APRN) Review of Systems Review of Systems Constitutional: Reports fever or chills [] Eyes: Denies change in visual acuity, redness, or eye pain [] HENT: Denies nasal congestion or sore throat [] Respiratory: Reports cough and shortness of breath [] Cardiovascular: No additional information not addressed in HPI [] GI: Denies abdominal pain, nausea, vomiting, bloody stools or diarrhea [] : Denies dysuria or hematuria [] Musculoskeletal: Denies back pain or joint pain [] Integument: Denies rash or skin lesions [] Neurologic: Denies headache, focal weakness or sensory changes [] Endocrine: Denies polyuria or polydipsia [] Complete systems were reviewed and found to be within normal limits, except as documented in this note. (JAMIE MINOR APRN) Current Medications Current Medications Current Medications Medications (Trade) Dose Ordered Sig/Keshav Start Time Stop Time Status Last Admin Dose Admin Albuterol Sulfate (Ventolin Neb Soln) 10 mg 1X STAT 07/29/19 18:42 07/29/19 18:45 DC 07/29/19 18:57 10 MG Albuterol/ Ipratropium (Duoneb) 3 ml 1X ONCE 07/29/19 17:45 07/29/19 17:49 DC 07/29/19 17:54 3 ML Aztreonam (Azactam) 2 gm 1X ONCE 07/29/19 18:45 07/29/19 18:46 DC 07/29/19 18:45 2 GM Heparin Sodium (Porcine) (Heparin Sodium) 4,000 unit 1X ONCE 07/29/19 19:00 07/29/19 19:01 DC 07/29/19 19:06 4,000 UNIT Heparin Sodium/ Dextrose 500 ml @ As Directed STK-MED ONCE 07/29/19 18:59 07/29/19 19:00 DC Levofloxacin/ Dextrose 100 ml @ 100 mls/hr 1X ONCE 07/29/19 19:00 07/29/19 19:59 DC 07/29/19 19:15 100 MLS/HR Methylprednisolone Sodium Succinate (SOLU-Medrol 125MG VIAL) 62.5 mg 1X STAT 07/29/19 18:42 07/29/19 18:45 DC 07/29/19 19:07 62.5 MG (AGUIAR,JAMIE R DO) Allergies Allergies Allergies Coded Allergies Type Severity Reaction Last Updated Verified ibuprofen Allergy Severe Swelling 08/09/18 Yes naproxen Allergy Severe Shortness of Air 10/25/18 Yes piperacillin Allergy Severe Swelling 08/09/18 Yes tazobactam Allergy Severe Swelling 08/09/18 Yes (AGUIAR,JAMIE R DO) Physical Exam Physical Exam Constitutional: Well developed, well nourished, no acute distress, non-toxic appearance. [] HENT: Normocephalic, atraumatic, bilateral external ears normal, oropharynx moist, no oral exudates, nose normal. [] Eyes: PERRLA, EOMI, conjunctiva normal, no discharge. [] Neck: Normal range of motion, no tenderness, supple, no stridor. [] Cardiovascular:Heart rate regular rhythm, no murmur [] Lungs & Thorax: Bilateral breath sounds have rhonchi diffusely with wheezing in left lower lobe. Abdomen: Bowel sounds normal, soft, no tenderness, no masses, no pulsatile masses. [] Skin: Warm, dry, no erythema, no rash. [] Back: No tenderness, no CVA tenderness. [] Extremities: No tenderness, no cyanosis, no clubbing, ROM intact, no edema. [] Neurologic: Alert and oriented X 3, normal motor function, normal sensory function, no focal deficits noted. [] Psychologic: Affect normal, judgement normal, mood normal. [] (JAMIE MINOR APRN) Physical Exam Constitutional: Well developed, well nourished, no acute distress, non-toxic appearance HENT: Normocephalic, atraumatic, oropharynx moist Eyes: Conjunctiva normal, no discharge Neck: Normal range of motion, no tenderness, supple Cardiovascular: Heart rate normal, regular rhythm Lungs & Thorax: Coarse breath sounds bilaterally with expiratory wheezes Skin: Warm, dry, no erythema, no rash Back: No tenderness, no CVA tenderness Extremities: No tenderness, ROM intact, no edema Neurologic: Alert and oriented X 3, no focal deficits noted Psychologic: Affect normal, judgement normal (JAMIE AGUIAR DO) Current Patient Data Vital Signs Vital Signs Date Time Temp Pulse Resp B/P (MAP) Pulse Ox O2 Delivery O2 Flow Rate FiO2 07/29/19 19:17 70 15 83/49 (60) 100 Nasal Cannula 2.0 07/29/19 17:41 97.7 97.7 (AJMIE AGUIAR DO) Lab Values Laboratory Tests Test 07/29/19 18:00 07/29/19 18:42 White Blood Count 8.7 x10^3/uL (4.0-11.0) Red Blood Count 4.10 x10^6/uL (3.50-5.40) Hemoglobin 13.0 g/dL (12.0-15.5) Hematocrit 39.2 % (36.0-47.0) Mean Corpuscular Volume 96 fL (79-100) Mean Corpuscular Hemoglobin 32 pg (25-35) Mean Corpuscular Hemoglobin Concent 33 g/dL (31-37) Red Cell Distribution Width 14.0 % (11.5-14.5) Platelet Count 249 x10^3/uL (140-400) Neutrophils (%) (Auto) 68 % (31-73) Lymphocytes (%) (Auto) 23 % (24-48) L Monocytes (%) (Auto) 6 % (0-9) Eosinophils (%) (Auto) 3 % (0-3) Basophils (%) (Auto) 1 % (0-3) Neutrophils # (Auto) 5.9 x10^3/uL (1.8-7.7) Lymphocytes # (Auto) 2.0 x10^3/uL (1.0-4.8) Monocytes # (Auto) 0.5 x10^3/uL (0.0-1.1) Eosinophils # (Auto) 0.2 x10^3/uL (0.0-0.7) Basophils # (Auto) 0.1 x10^3/uL (0.0-0.2) Prothrombin Time 11.7 SEC (11.7-14.0) Prothrombin Time INR 0.9 (0.8-1.1) Activated Partial Thromboplast Time 29 SEC (24-38) Sodium Level 141 mmol/L (136-145) Potassium Level 4.6 mmol/L (3.5-5.1) Chloride Level 103 mmol/L (98-107) Carbon Dioxide Level 32 mmol/L (21-32) Anion Gap 6 (6-14) Blood Urea Nitrogen 15 mg/dL (7-20) Creatinine 1.5 mg/dL (0.6-1.0) H Estimated GFR (Cockcroft-Gault) 34.9 BUN/Creatinine Ratio 10 (6-20) Glucose Level 95 mg/dL (70-99) Lactic Acid Level 2.1 mmol/L (0.4-2.0) H Calcium Level 9.0 mg/dL (8.5-10.1) Magnesium Level 2.2 mg/dL (1.8-2.4) Total Bilirubin 0.3 mg/dL (0.2-1.0) Aspartate Amino Transferase (AST) 13 U/L (15-37) L Alanine Aminotransferase (ALT) 15 U/L (14-59) Alkaline Phosphatase 79 U/L (46-116) Troponin I Quantitative < 0.017 ng/mL (0.000-0.055) ON-Ybr-D-Type Natriuretic Peptide 329 pg/mL (0-124) H Total Protein 7.7 g/dL (6.4-8.2) Albumin 3.3 g/dL (3.4-5.0) L Albumin/Globulin Ratio 0.8 (1.0-1.7) L O2 Saturation 99 % (92-99) Arterial Blood pH 7.52 (7.35-7.45) H Arterial Blood pCO2 at Patient Temp 35 mmHg (35-46) Arterial Blood pO2 at Patient Temp 227 mmHg (65-108) H Arterial Blood HCO3 28 mmol/L (21-28) Arterial Blood Base Excess 5 mmol/L (-3-3) H Oxyhemoglobin 96.7 % Methemoglobin 0.4 % (0.0-1.9) Carbon Monoxide, Quantitative 1.7 % (0.0-1.9) FiO2 50 Laboratory Tests 07/29/19 18:00 Laboratory Tests 07/29/19 18:00 (JAMIE AGUIAR DO) Lab Values Laboratory Tests Test 07/29/19 18:00 White Blood Count 8.7 x10^3/uL (4.0-11.0) Red Blood Count 4.10 x10^6/uL (3.50-5.40) Hemoglobin 13.0 g/dL (12.0-15.5) Hematocrit 39.2 % (36.0-47.0) Mean Corpuscular Volume 96 fL (79-100) Mean Corpuscular Hemoglobin 32 pg (25-35) Mean Corpuscular Hemoglobin Concent 33 g/dL (31-37) Red Cell Distribution Width 14.0 % (11.5-14.5) Platelet Count 249 x10^3/uL (140-400) Neutrophils (%) (Auto) 68 % (31-73) Lymphocytes (%) (Auto) 23 % (24-48) L Monocytes (%) (Auto) 6 % (0-9) Eosinophils (%) (Auto) 3 % (0-3) Basophils (%) (Auto) 1 % (0-3) Neutrophils # (Auto) 5.9 x10^3/uL (1.8-7.7) Lymphocytes # (Auto) 2.0 x10^3/uL (1.0-4.8) Monocytes # (Auto) 0.5 x10^3/uL (0.0-1.1) Eosinophils # (Auto) 0.2 x10^3/uL (0.0-0.7) Basophils # (Auto) 0.1 x10^3/uL (0.0-0.2) Prothrombin Time 11.7 SEC (11.7-14.0) Prothrombin Time INR 0.9 (0.8-1.1) Activated Partial Thromboplast Time 29 SEC (24-38) Sodium Level 141 mmol/L (136-145) Potassium Level 4.6 mmol/L (3.5-5.1) Chloride Level 103 mmol/L (98-107) Carbon Dioxide Level 32 mmol/L (21-32) Anion Gap 6 (6-14) Blood Urea Nitrogen 15 mg/dL (7-20) Creatinine 1.5 mg/dL (0.6-1.0) H Estimated GFR (Cockcroft-Gault) 34.9 BUN/Creatinine Ratio 10 (6-20) Glucose Level 95 mg/dL (70-99) Lactic Acid Level 2.1 mmol/L (0.4-2.0) H Calcium Level 9.0 mg/dL (8.5-10.1) Magnesium Level 2.2 mg/dL (1.8-2.4) Total Bilirubin 0.3 mg/dL (0.2-1.0) Aspartate Amino Transferase (AST) 13 U/L (15-37) L Alanine Aminotransferase (ALT) 15 U/L (14-59) Alkaline Phosphatase 79 U/L (46-116) Troponin I Quantitative < 0.017 ng/mL (0.000-0.055) PZ-Urp-G-Type Natriuretic Peptide 329 pg/mL (0-124) H Total Protein 7.7 g/dL (6.4-8.2) Albumin 3.3 g/dL (3.4-5.0) L Albumin/Globulin Ratio 0.8 (1.0-1.7) L Laboratory Tests 07/29/19 18:00 Laboratory Tests 07/29/19 18:00 (JAMIE MINOR APRN) EKG EKG EKG was interpreted by Dr. Aguiar 1st EKG: Sinus was rate of 80 with wandering pacer spikes. 2nd EKG: Sinus rate of 69, has pacemaker spikes with ST elevation in 2, 3, AVF less than 1 mm, Dr. Aguiar discussed on phone with Dr. Driscoll who recommends to give heparin and trend serial troponin. [] (JAMIE MINOR APRN) Radiology/Procedures Radiology/Procedures [] (JAMIE MINOR APRN) Radiology/Procedures PROCEDURE: PORTABLE CHEST 1V Exam: Chest one view INDICATION: Chest pain TECHNIQUE: Frontal view of the chest Comparisons: 11/01/2018 FINDINGS: AICD with leads terminating the right atrium, ventricle and coronary sinus. Heart is mildly enlarged. Pulmonary vessels are within normal limits. The lung and pleural spaces are clear. IMPRESSION: No acute cardiopulmonary process. Electronically signed by: Alejandro Conde MD (07/29/2019 10:24 PM) [facility] (JAMIE AGUIAR DO) Course & Med Decision Making Course & Med Decision Making Pertinent Labs and Imaging studies reviewed. (See chart for details) Will get labs, EKG, chest x-ray, and will give steroids and breathing treatments. Based on EKG and recommendations from Dr. Driscoll will order Heparin. Also will have staff interrogate pacemaker. Patient took 650 of ASA at 0900 this AM. Will also order ABG, and additional breathing treatment and more steroids. Lactic is 2.1. Patient seems to be struggling more to breathe. BNP is 300, Concern for pneumonia vs atelectasis. Labs are unremarkable otherwise. [employer] states that device looks okay from their reports and she has bi chamber spiking. Will hold fluids as she does not meet SIRS at this time and has history of CHF. Will order antibiotics. Will trend troponins. First troponin was negative. Discussed with patient who agrees to admission. Consulted Cards and Pulm. Discussed with Dr. Verduzco who agrees to admit. Patient states she wants to be a full code. (JAMIE MINOR APRN) Course & Med Decision Making Patient seen and evaluated by Jamie PAYNE with reports of increases work of breathing and abnormal EKG. EKG with concern for inferior lead ST elevation but appears paced. Discussed EKG findings with Dr. Driscoll (cardiology) who also evaluated EKG. Recommend treading troponins and starting heparin. Patient seen and evaluated by myself. Appears more respiratory in nature. Lactic acid elevated. SIRS criteria not met however. Presumed source- respiratory. Empiric antibiotics given. IVF bolusing held given hx of CHF. Initial troponin negative. BNP WNL. Patient admitted for further evaluation and treatment. (JAMIE AGUIAR DO) Dragon Disclaimer Dragon Disclaimer This electronic medical record was generated, in whole or in part, using a voice recognition dictation system. (JAMIE MINOR APRN) Departure Departure Impression: Primary Impression: COPD exacerbation Additional Impressions: Hypoxia Chest pain Acute electrocardiogram changes Lactic acidosis Disposition: ADMITTED INPATIENT Admitting Physician: ROYCE (JAMIE MIONR APRN) Condition: GUARDED Referrals: ANGIE WILLINGHAM MD (PCP) The HEART Score for CP Pts HEART Score for Chest Pain: HEART Score for Chest Pain Response (Comments) Value History Slighlty/Non-Suspicious 0 ECG Nonspecific Repolarizatio 1 Age > 65 2 Risk Factors >3 Risk Factors or Hx CAD 2 Troponin < Normal Limit 0 Total 5 Risk Factors: Risk Factors: DM, Current or recent (<one month) smoker, HTN, HLP, family history of CAD, obesity. Risk Scores: Score 0 - 3: 2.5% MACE over next 6 weeks - Discharge Home Score 4 - 6: 20.3% MACE over next 6 weeks - Admit for Clinical Observation Score 7 - 10: 72.7% MACE over next 6 weeks - Early Invasive Strategies (JAMIE MINOR APRN) Critical Care Time Critical care time was 30 minutes which includes time at bedside, spent in discussion of patient's care with specialists and/or family members, with interpretation of laboratory and/or radiological studies and is exclusive of procedures. (JAMIE AGUIAR DO) Attending Signature Attending Signature I have personally interviewed and examined the patient. All charts, labs, and imaging studies were reviewed. I agree with the PA/REGIONAL FACILITIES SPECIALIST's findings, exam, and plan. (JAMIE AGUIAR DO) Problem Qualifiers Additional Impressions: Chest pain Chest pain type: unspecified Qualified Codes: R07.9 - Chest pain, unspecified JAMIE MINOR APRN Jul 29, 2019 17:46 JAMIE AGUIAR DO Jul 30, 2019 00:18
[2019-07-29 18:12] LABS: BASO # 0.1 x10^3/uL (0.0-0.2); BASO % 1 % (0-3); EOS # 0.2 x10^3/uL (0.0-0.7); EOS % 3 % (0-3); HEMATOCRIT 39.2 % (36.0-47.0); LYMPH % 23 % (24-48); MEAN CORPUSCULAR HEMOGLOBIN 32 pg (25-35); MEAN CORPUSCULAR HGB CONC 33 g/dL (31-37); MEAN CORPUSCULAR VOLUME 96 fL (79-100); MONO # 0.5 x10^3/uL (0.0-1.1); MONO % 6 % (0-9); NEUT # 5.9 x10^3/uL (1.8-7.7); NEUT % 68 % (31-73); PLATELET COUNT 249 x10^3/uL (140-400); WHITE BLOOD COUNT 8.7 x10^3/uL (4.0-11.0)
[2019-07-29 18:18] LABS: CREATININE 1.5 mg/dL (0.6-1.0); GFR 34.9; POTASSIUM 4.6 mmol/L (3.5-5.1)
[2019-07-29 18:25] LABS: ALBUMIN 3.3 g/dL (3.4-5.0); ALBUMIN/GLOBULIN RATIO 0.8 (1.0-1.7); MAGNESIUM 2.2 mg/dL (1.8-2.4); TOTAL BILIRUBIN 0.3 mg/dL (0.2-1.0); TOTAL PROTEIN 7.7 g/dL (6.4-8.2)
[2019-07-29] MEDS ORDERED: ALBUTEROL SULFATE 2.5 MG/3 ML NEBU. CONT NEB STA (18:42)
[2019-07-29] MEDS ORDERED: HEPARIN for IV BOLUS 10,000 UNIT/10 ML VIAL. IV PRN (18:45)
[2019-07-29] MEDS ORDERED: AZTREONAM IV Push 2 GM VIAL. IVP ONE (18:45)
[2019-07-29 18:47] LABS: PROTHROMBIN TIME PATIENT 11.7 SEC (11.7-14.0)
[2019-07-29] MEDS ORDERED: HEPARIN 25,000UTS/500ML PREMIX 500 ML IV ONE (18:59)
[2019-07-29] MEDS ORDERED: HEPARIN for IV BOLUS 10,000 UNIT/10 ML VIAL. IV ONE (19:00)
[2019-07-29] MEDS ORDERED: HEPARIN 25,000UTS/500ML PREMIX 500 ML IV PRN (19:00)
[2019-07-29 20:53] LABS: CREATINE KINASE 31 U/L (26-192)
[2019-07-29] MEDS ORDERED: LEVO5TAB2 PO (21:06)
[2019-07-29] MEDS ORDERED: ESOM40CA PO (21:06)
[2019-07-29] MEDS ORDERED: MONT10TA49 PO (21:06)
[2019-07-29] MEDS ORDERED: MAGN400C PO (21:06)
[2019-07-29] MEDS ORDERED: AMIT25TA PO (21:06)
[2019-07-29] MEDS ORDERED: ACET325T9 PO (21:06)
[2019-07-29] MEDS ORDERED: AZEL137S3 NS (21:06)
[2019-07-29 21:07] VITALS: BP 86/33
[2019-07-29 22:17] VITALS: BP 91/44
[2019-07-29 22:24] LABS: BASE EXCESS COOX 5 mmol/L (-3-3); HCO3 COOX 28 mmol/L (21-28); METHEMOGLOBIN 0.4 % (0.0-1.9); OXYHEMOGLOBIN 96.7 %; PCO2 COOX 35 mmHg (35-46); PO2 COOX 227 mmHg (65-108); SAT O2 COOX 99 % (92-99)
--- NOTE | 2019-07-29 22:27 | RAD ---
Exam: Chest one view INDICATION: Chest pain TECHNIQUE: Frontal view of the chest Comparisons: 11/01/2018 FINDINGS: AICD with leads terminating the right atrium, ventricle and coronary sinus. Heart is mildly enlarged. Pulmonary vessels are within normal limits. The lung and pleural spaces are clear. IMPRESSION: No acute cardiopulmonary process. Electronically signed by: Alejandro Conde MD (07/29/2019 10:24 PM) [facility]
[2019-07-30] MEDS ORDERED: AMITRIPTYLINE HCL 25 MG TABLET. PO PRN (00:15)
[2019-07-30] MEDS ORDERED: rOPINIRole 1 MG TABLET. PO ONE (00:30)
[2019-07-30 01:17] LABS: HEMATOCRIT 36.9 % (36.0-47.0); HEMOGLOBIN 12.4 g/dL (12.0-15.5); RED BLOOD COUNT 3.87 x10^6/uL (3.50-5.40); RED CELL DISTRIBUTION WIDTH 14.1 % (11.5-14.5); WHITE BLOOD COUNT 8.2 x10^3/uL (4.0-11.0)
[2019-07-30 01:50] LABS: CREATINE KINASE 34 U/L (26-192)
[2019-07-30 03:09] VITALS: BP 94/48
[2019-07-30 07:00] VITALS: BP 94/47
--- NOTE | 2019-07-30 07:14 | EKG ---
[facility] [address] [place] [address] Test Date: 2019-07-29 Test Time: 18:07:21 Pat Name: JAYCOB CRAWFORD Department: Room: Gender: F Case Finisher: : 1955 Requested By: SALMA MINOR Order Number: [id number] Reading MD: Measurements Intervals [place] Rate: 80 P: [place]: QRS: 153 QRSD: 104 T: 82 QT: 406 QTc: 472 Interpretive Statements ATRIAL FIBRILLATION ABNORMAL RIGHT AXIS DEVIATION LOW LIMB LEAD VOLTAGE CONSIDER RIGHT VENTRICULAR HYPERTROPHY QRS(T) CONTOUR ABNORMALITY CONSIDER HIGH LATERAL INFARCT ABNORMAL ECG No previous ECG available for comparison
--- NOTE | 2019-07-30 07:58 | EKG ---
[facility] [address] [place] [address] Test Date: 2019-07-29 Test Time: 18:12:55 Pat Name: JAYCOB CRAWFORD Department: Room: [facility] Gender: F Skein Dyer: : 1955 Requested By: CAMILA MORELOS Order Number: [id number] Reading MD: Measurements Intervals [place] Rate: P: [place]: QRS: QRSD: T: QT: QTc: Interpretive Statements
[2019-07-30] MEDS ORDERED: FLU VAX QS 2019-20 (36MOS+)/PF 0.5 ML SYRINGE. VAX IM ONE (08:30)
[2019-07-30 11:00] VITALS: BP 100/49
--- NOTE | 2019-07-30 11:24 | PDOC2 ---
CONSULT Date of Consult Date of Consult DATE: 07/30/19 TIME: 11:24 Reason for Consult Reason for Consult: Shortness of breath Referring Physician Referring Physician: Dr. Mccloud Identification/Chief Complaint Chief Complaint Shortness of breath Source Source: Chart review, Patient History of Present Illness Reason for Visit: 64-year-old female with history of nonischemic cardiomyopathy s/p biventricular ICD/INSTRUCTOR PHYSICAL-D implantation presented complaining of progressive shortness of breath associated with chest tightness. She also complained of cough, nasal congestion and fever. She denied any palpitations or syncope. Past Medical History Cardiovascular: CHF, HTN, Hyperlipidemia, Other Pulmonary: COPD CENTRAL NERVOUS SYSTEM: Other GI: No pertinent hx Heme/Onc: No pertinent hx Hepatobiliary: No pertinent hx Psych: No pertinent hx Musculoskeletal: Osteoarthritis Rheumatologic: No pertinent hx Infectious disease: No pertinent hx Renal/: No pertinent hx Endocrine: Diabetes, Hypothyroidism Past Surgical History Past Surgical History: Cholecystectomy, , Hysterectomy, Other Family History Family History: Coronary Artery Disease, Hypertension Social History ALCOHOL: none Drugs: None Lives: with Family Current Problem List Problem List Problems Medical Problems: (1) Acute electrocardiogram changes Status: Acute (2) Chest pain Status: Acute (3) COPD exacerbation Status: Acute (4) Hypoxia Status: Acute (5) Lactic acidosis Status: Acute Current Medications Current Medications Current Medications Methylprednisolone Sodium Succinate (SOLU-Medrol 125MG VIAL) 62.5 mg 1X STAT IV Last administered on 07/29/19at 17:40; Start 07/29/19 at 17:40; Stop 07/29/19 at 17:49; Status DC Albuterol/ Ipratropium (Duoneb) 3 ml 1X ONCE NEB Last administered on 07/29/19at 17:54; Start 07/29/19 at 17:45; Stop 07/29/19 at 17:49; Status DC Aztreonam (Azactam) 2 gm 1X ONCE IVP Last administered on 07/29/19at 18:45; Start 07/29/19 at 18:45; Stop 07/29/19 at 18:46; Status DC Heparin Sodium (Porcine) (Heparin Sodium) 1,700 unit PRN Q6HRS PRN IV FOR UFH LEVEL LESS THAN 0.2; Start 07/29/19 at 18:45 Methylprednisolone Sodium Succinate (SOLU-Medrol 125MG VIAL) 62.5 mg 1X STAT IV Last administered on 07/29/19at 19:07; Start 07/29/19 at 18:42; Stop 07/29/19 at 18:45; Status DC Albuterol Sulfate (Ventolin Neb Soln) 10 mg 1X STAT CONT NEB Last administered on 07/29/19at 18:57; Start 07/29/19 at 18:42; Stop 07/29/19 at 18:45; Status DC Heparin Sodium (Porcine) (Heparin Sodium) 4,000 unit 1X ONCE IV Last administered on 07/29/19at 19:06; Start 07/29/19 at 19:00; Stop 07/29/19 at 19:01; Status DC Heparin Sodium/ Dextrose 500 ml @ 16.1 mls/hr CONT PRN IV PER PROTOCOL Last administered on 07/29/19at 19:05; Start 07/29/19 at 19:00 Levofloxacin/ Dextrose 100 ml @ 100 mls/hr 1X ONCE IV Last administered on 07/29/19at 19:15; Start 07/29/19 at 19:00; Stop 07/29/19 at 19:59; Status DC Heparin Sodium/ Dextrose 500 ml @ As Directed STK-MED ONCE IV ; Start 07/29/19 at 18:59; Stop 07/29/19 at 19:00; Status DC Ropinirole HCl (Requip) 3 mg 1X ONCE PO Last administered on 07/30/19at 00:20; Start 07/30/19 at 00:30; Stop 07/30/19 at 00:31; Status DC Amitriptyline HCl (Elavil) 25 mg PRN QHS PRN PO INSOMNIA Last administered on 07/30/19at 00:20; Start 07/30/19 at 00:15 Influenza Virus Vaccine Quadrival (Afluria Quad 2019-20 (3yr Up) Syringe) 0.5 ml ONCE ONCE VAX IM ; Start 07/30/19 at 08:30; Stop 07/30/19 at 08:31; Status DC Active Scripts Active Fluticasone Propionate Nasal [place] (Fluticasone Propionate) 16 Gm Villan[place]va.susp 2 [place] NS DAILY 30 Days Duoneb 0.5-3(2.5) Mg/3 Ml (Albuterol/Ipratropium) 3 Ml Ampul.neb 3 Ml NEB RTQID 14 Days Reported Nexium Capsule (Esomeprazole Magnesium) 40 Mg Capsule.dr 40 Mg PO DAILYAC Montelukast Sodium Tablet (Montelukast Sodium) 10 Mg Tablet 10 Mg PO HS Magnesium (Magnesium Oxide) 400 Mg Capsule 200 Mg PO DAILY Levocetirizine Dihydrochloride 5 Mg Tablet 5 Mg PO DAILY Azelastine Hcl 137 Mcg/0.137 Ml Villan[place]va.pump 2 [place] NS PRN BID PRN 30 Days Amitriptyline Hcl 25 Mg Tablet 25 Mg PO QHS Tylenol (Acetaminophen) 325 Mg Tablet 650 Mg PO PRN Q4HRS PRN Aspir 81 (Aspirin) 81 Mg Tablet.dr 1 Tab PO DAILY Metoprolol Succinate ( Xl ) (Metoprolol Succinate) 25 Mg Tab.er.24h 25 Mg PO DAILY Vitamin D3 (Cholecalciferol (Vitamin D3)) 1,000 Unit Tablet 1 Tab PO DAILY Torsemide 20 Mg Tablet 1 Tab PO DAILY Gabapentin (Gabapentin) 100 Mg Capsule 100 Mg PO TID Ferrous Sulfate 325 Mg Tablet 1 Tab PO DAILY Daliresp (Roflumilast) 500 Mcg Tablet 1 Tab PO DAILY Atorvastatin Calcium 20 Mg Tablet 20 Mg PO HS Requip (Ropinirole Hcl) 1 Mg Tablet 3 Tab PO QHS Proair Hfa Inhaler (Albuterol Sulfate) 8.5 Gm Hfa.aer.ad 1 Puff INH PRN Q6HRS PRN Lidocaine PATCH (Lidocaine) 1 Each Adh..patch 1 Each TP Levothyroxine Sodium 50 Mcg Tablet 1 Tab PO DAILY Allergies Allergies: Coded Allergies: ibuprofen (Verified Allergy, Severe, Swelling, 08/09/18) naproxen (Verified Allergy, Severe, Shortness of Air, 10/25/18) tolerates asa piperacillin (Verified Allergy, Severe, Swelling, 08/09/18) tazobactam (Verified Allergy, Severe, Swelling, 08/09/18) ROS PSYCHOLOGICAL ROS: No: Hallucinations Eyes: No Loss of vision HEENT: No: Epistaxis Respiratory: YES: Cough, Shortness of breath; No: Hemoptysis Cardiovascular: yes Chest Pain Gastrointestinal: No Vomiting, No Diarrhea Genitourinary: No Hematuria Neurological: No Seizures Skin: No Rash Physical Exam General: Alert, Oriented X3 HEENT: Atraumatic, PERRLA Lungs: Other (bilateral expiratory rhonchi) Heart: Regular rate Abdomen: Soft, No tenderness Extremities: No edema Psych/Mental Status: Mood NL Vitals VITALS Vital Signs Date Time Temp Pulse Resp B/P (MAP) Pulse Ox O2 Delivery O2 Flow Rate FiO2 07/30/19 11:00 98.1 72 16 100/49 (66) 97 Nasal Cannula 2.0 98.1 Labs Labs Laboratory Tests Test 07/29/19 18:00 07/29/19 18:42 07/29/19 20:15 07/29/19 21:20 White Blood Count 8.7 x10^3/uL (4.0-11.0) Red Blood Count 4.10 x10^6/uL (3.50-5.40) Hemoglobin 13.0 g/dL (12.0-15.5) Hematocrit 39.2 % (36.0-47.0) Mean Corpuscular Volume 96 fL (79-100) Mean Corpuscular Hemoglobin 32 pg (25-35) Mean Corpuscular Hemoglobin Concent 33 g/dL (31-37) Red Cell Distribution Width 14.0 % (11.5-14.5) Platelet Count 249 x10^3/uL (140-400) Neutrophils (%) (Auto) 68 % (31-73) Lymphocytes (%) (Auto) 23 % (24-48) Monocytes (%) (Auto) 6 % (0-9) Eosinophils (%) (Auto) 3 % (0-3) Basophils (%) (Auto) 1 % (0-3) Neutrophils # (Auto) 5.9 x10^3/uL (1.8-7.7) Lymphocytes # (Auto) 2.0 x10^3/uL (1.0-4.8) Monocytes # (Auto) 0.5 x10^3/uL (0.0-1.1) Eosinophils # (Auto) 0.2 x10^3/uL (0.0-0.7) Basophils # (Auto) 0.1 x10^3/uL (0.0-0.2) Prothrombin Time 11.7 SEC (11.7-14.0) Prothromb Time International Ratio 0.9 (0.8-1.1) Activated Partial Thromboplast Time 29 SEC (24-38) Sodium Level 141 mmol/L (136-145) Potassium Level 4.6 mmol/L (3.5-5.1) Chloride Level 103 mmol/L (98-107) Carbon Dioxide Level 32 mmol/L (21-32) Anion Gap 6 (6-14) Blood Urea Nitrogen 15 mg/dL (7-20) Creatinine 1.5 mg/dL (0.6-1.0) Estimated GFR (Cockcroft-Gault) 34.9 BUN/Creatinine Ratio 10 (6-20) Glucose Level 95 mg/dL (70-99) Lactic Acid Level 2.1 mmol/L (0.4-2.0) 2.8 mmol/L (0.4-2.0) Calcium Level 9.0 mg/dL (8.5-10.1) Magnesium Level 2.2 mg/dL (1.8-2.4) Total Bilirubin 0.3 mg/dL (0.2-1.0) Aspartate Amino Transf (AST/SGOT) 13 U/L (15-37) Alanine Aminotransferase (ALT/SGPT) 15 U/L (14-59) Alkaline Phosphatase 79 U/L (46-116) Troponin I Quantitative < 0.017 ng/mL (0.000-0.055) < 0.017 ng/mL (0.000-0.055) YN-Ctm-Z-Type Natriuretic Peptide 329 pg/mL (0-124) Total Protein 7.7 g/dL (6.4-8.2) Albumin 3.3 g/dL (3.4-5.0) Albumin/Globulin Ratio 0.8 (1.0-1.7) O2 Saturation 99 % (92-99) Arterial Blood pH 7.52 (7.35-7.45) Arterial Blood pCO2 at Patient Temp 35 mmHg (35-46) Arterial Blood pO2 at Patient Temp 227 mmHg (65-108) Arterial Blood HCO3 28 mmol/L (21-28) Arterial Blood Base Excess 5 mmol/L (-3-3) Oxyhemoglobin 96.7 % Methemoglobin 0.4 % (0.0-1.9) Carbon Monoxide, Quantitative 1.7 % (0.0-1.9) FiO2 50 Creatine Kinase 31 U/L (26-192) Creatine Kinase MB (Mass) < 0.5 ng/mL (0.0-3.6) Creatine Kinase MB Relative Index % (0-4) Test 07/30/19 01:05 07/30/19 07:00 07/30/19 07:36 White Blood Count 8.2 x10^3/uL (4.0-11.0) Red Blood Count 3.87 x10^6/uL (3.50-5.40) Hemoglobin 12.4 g/dL (12.0-15.5) Hematocrit 36.9 % (36.0-47.0) Mean Corpuscular Volume 96 fL (79-100) Mean Corpuscular Hemoglobin 32 pg (25-35) Mean Corpuscular Hemoglobin Concent 34 g/dL (31-37) Red Cell Distribution Width 14.1 % (11.5-14.5) Platelet Count 190 x10^3/uL (140-400) Heparin Anti-Xa Act, Unfractionated 0.76 IU/mL (0.30-0.70) 0.70 IU/mL (0.30-0.70) Creatine Kinase 34 U/L (26-192) Creatine Kinase MB (Mass) < 0.5 ng/mL (0.0-3.6) Creatine Kinase MB Relative Index % (0-4) Troponin I Quantitative < 0.017 ng/mL (0.000-0.055) Glucose (Fingerstick) 152 mg/dL (70-99) Laboratory Tests Test 07/29/19 18:00 07/29/19 18:42 07/29/19 20:15 07/29/19 21:20 White Blood Count 8.7 x10^3/uL (4.0-11.0) Red Blood Count 4.10 x10^6/uL (3.50-5.40) Hemoglobin 13.0 g/dL (12.0-15.5) Hematocrit 39.2 % (36.0-47.0) Mean Corpuscular Volume 96 fL (79-100) Mean Corpuscular Hemoglobin 32 pg (25-35) Mean Corpuscular Hemoglobin Concent 33 g/dL (31-37) Red Cell Distribution Width 14.0 % (11.5-14.5) Platelet Count 249 x10^3/uL (140-400) Neutrophils (%) (Auto) 68 % (31-73) Lymphocytes (%) (Auto) 23 % (24-48) Monocytes (%) (Auto) 6 % (0-9) Eosinophils (%) (Auto) 3 % (0-3) Basophils (%) (Auto) 1 % (0-3) Neutrophils # (Auto) 5.9 x10^3/uL (1.8-7.7) Lymphocytes # (Auto) 2.0 x10^3/uL (1.0-4.8) Monocytes # (Auto) 0.5 x10^3/uL (0.0-1.1) Eosinophils # (Auto) 0.2 x10^3/uL (0.0-0.7) Basophils # (Auto) 0.1 x10^3/uL (0.0-0.2) Prothrombin Time 11.7 SEC (11.7-14.0) Prothromb Time International Ratio 0.9 (0.8-1.1) Activated Partial Thromboplast Time 29 SEC (24-38) Sodium Level 141 mmol/L (136-145) Potassium Level 4.6 mmol/L (3.5-5.1) Chloride Level 103 mmol/L (98-107) Carbon Dioxide Level 32 mmol/L (21-32) Anion Gap 6 (6-14) Blood Urea Nitrogen 15 mg/dL (7-20) Creatinine 1.5 mg/dL (0.6-1.0) Estimated GFR (Cockcroft-Gault) 34.9 BUN/Creatinine Ratio 10 (6-20) Glucose Level 95 mg/dL (70-99) Lactic Acid Level 2.1 mmol/L (0.4-2.0) 2.8 mmol/L (0.4-2.0) Calcium Level 9.0 mg/dL (8.5-10.1) Magnesium Level 2.2 mg/dL (1.8-2.4) Total Bilirubin 0.3 mg/dL (0.2-1.0) Aspartate Amino Transf (AST/SGOT) 13 U/L (15-37) Alanine Aminotransferase (ALT/SGPT) 15 U/L (14-59) Alkaline Phosphatase 79 U/L (46-116) Troponin I Quantitative < 0.017 ng/mL (0.000-0.055) < 0.017 ng/mL (0.000-0.055) IG-Xgs-V-Type Natriuretic Peptide 329 pg/mL (0-124) Total Protein 7.7 g/dL (6.4-8.2) Albumin 3.3 g/dL (3.4-5.0) Albumin/Globulin Ratio 0.8 (1.0-1.7) O2 Saturation 99 % (92-99) Arterial Blood pH 7.52 (7.35-7.45) Arterial Blood pCO2 at Patient Temp 35 mmHg (35-46) Arterial Blood pO2 at Patient Temp 227 mmHg (65-108) Arterial Blood HCO3 28 mmol/L (21-28) Arterial Blood Base Excess 5 mmol/L (-3-3) Oxyhemoglobin 96.7 % Methemoglobin 0.4 % (0.0-1.9) Carbon Monoxide, Quantitative 1.7 % (0.0-1.9) FiO2 50 Creatine Kinase 31 U/L (26-192) Creatine Kinase MB (Mass) < 0.5 ng/mL (0.0-3.6) Creatine Kinase MB Relative Index % (0-4) Test 07/30/19 01:05 07/30/19 07:00 07/30/19 07:36 White Blood Count 8.2 x10^3/uL (4.0-11.0) Red Blood Count 3.87 x10^6/uL (3.50-5.40) Hemoglobin 12.4 g/dL (12.0-15.5) Hematocrit 36.9 % (36.0-47.0) Mean Corpuscular Volume 96 fL (79-100) Mean Corpuscular Hemoglobin 32 pg (25-35) Mean Corpuscular Hemoglobin Concent 34 g/dL (31-37) Red Cell Distribution Width 14.1 % (11.5-14.5) Platelet Count 190 x10^3/uL (140-400) Heparin Anti-Xa Act, Unfractionated 0.76 IU/mL (0.30-0.70) 0.70 IU/mL (0.30-0.70) Creatine Kinase 34 U/L (26-192) Creatine Kinase MB (Mass) < 0.5 ng/mL (0.0-3.6) Creatine Kinase MB Relative Index % (0-4) Troponin I Quantitative < 0.017 ng/mL (0.000-0.055) Glucose (Fingerstick) 152 mg/dL (70-99) Assessment/Plan Assessment/Plan 1. Acute respiratory failure secondary to acute COPD exacerbation. Doubt CHF. Chest x-ray did not show any evidence of CHF. Continue treatment per primary team. 2. Chronic systolic heart failure: Most recent 2-D echo showed normalized left ventricle systolic function. She is clinically well compensated. Continue current medical regimen. 3. Nonischemic cardio myopathy s/p biventricular ICD/INSTRUCTOR PHYSICAL-D implantation. Recent device check showed normal function. 4. Hyperlipidemia: Continue statin therapy 5. Diabetes mellitus type 2: Treat per IM Thank you for your consultation SAMM CRUZ MD Jul 30, 2019 11:24
--- NOTE | 2019-07-30 11:58 | PDOC1 ---
History and Physical Date of Admission Date of Admission DATE: 07/30/19 TIME: 11:52 Identification/Chief Complaint Chief Complaint Cough, chest pain Source Source: Patient History of Present Illness History of Present Illness Ms Mathur is a 63-year-old who has a long history of tobacco use for at least 30 years, CHF, unknown EF, hypertension, COPD, unknown FEV1, chronic respiratory failure on 2l NCO2, osteoarthritis who was brought into the hospital with increasing shortness of breath with associated chest pain. She has had sinus pressure and headache for the past 8 days on the left side. She has been wheezing as well. She has a cough, which has been nonproductive. Chest x-ray unchanged from prior. No nausea, vomiting, no diarrhea. No focal weakness. No skin rash. No blurring of vision. Cr notably 1.5, up from 1.1 baseline. She c/o severe left sided headache and tooth pain, has had some nasal congestion with discharge. No body aches. She did not a fever of 101.1F on 07/28/19, no elevated temp since then. Past Medical History Cardiovascular: CHF, HTN, Hyperlipidemia, Other Pulmonary: COPD CENTRAL NERVOUS SYSTEM: Other GI: No pertinent hx Heme/Onc: No pertinent hx Hepatobiliary: No pertinent hx Psych: No pertinent hx Musculoskeletal: Osteoarthritis Rheumatologic: No pertinent hx Infectious disease: No pertinent hx Renal/: No pertinent hx Endocrine: Diabetes, Hypothyroidism Past Surgical History Past Surgical History: Cholecystectomy, , Hysterectomy, Other Family History Family History: Coronary Artery Disease, Hypertension Social History Smoke: <1 pack per day ALCOHOL: none Drugs: None Current Problem List Problem List Problems Medical Problems: (1) Acute electrocardiogram changes Status: Acute (2) Chest pain Status: Acute (3) COPD exacerbation Status: Acute (4) Hypoxia Status: Acute (5) Lactic acidosis Status: Acute Current Medications Current Medications Current Medications Methylprednisolone Sodium Succinate (SOLU-Medrol 125MG VIAL) 62.5 mg 1X STAT IV Last administered on 07/29/19at 17:40; Start 07/29/19 at 17:40; Stop 07/29/19 at 17:49; Status DC Albuterol/ Ipratropium (Duoneb) 3 ml 1X ONCE NEB Last administered on 07/29/19at 17:54; Start 07/29/19 at 17:45; Stop 07/29/19 at 17:49; Status DC Aztreonam (Azactam) 2 gm 1X ONCE IVP Last administered on 07/29/19at 18:45; Start 07/29/19 at 18:45; Stop 07/29/19 at 18:46; Status DC Heparin Sodium (Porcine) (Heparin Sodium) 1,700 unit PRN Q6HRS PRN IV FOR UFH LEVEL LESS THAN 0.2; Start 07/29/19 at 18:45 Methylprednisolone Sodium Succinate (SOLU-Medrol 125MG VIAL) 62.5 mg 1X STAT IV Last administered on 07/29/19at 19:07; Start 07/29/19 at 18:42; Stop 07/29/19 at 18:45; Status DC Albuterol Sulfate (Ventolin Neb Soln) 10 mg 1X STAT CONT NEB Last administered on 07/29/19at 18:57; Start 07/29/19 at 18:42; Stop 07/29/19 at 18:45; Status DC Heparin Sodium (Porcine) (Heparin Sodium) 4,000 unit 1X ONCE IV Last administered on 07/29/19at 19:06; Start 07/29/19 at 19:00; Stop 07/29/19 at 19:01; Status DC Heparin Sodium/ Dextrose 500 ml @ 16.1 mls/hr CONT PRN IV PER PROTOCOL Last administered on 07/29/19at 19:05; Start 07/29/19 at 19:00 Levofloxacin/ Dextrose 100 ml @ 100 mls/hr 1X ONCE IV Last administered on 07/29/19at 19:15; Start 07/29/19 at 19:00; Stop 07/29/19 at 19:59; Status DC Heparin Sodium/ Dextrose 500 ml @ As Directed STK-MED ONCE IV ; Start 07/29/19 at 18:59; Stop 07/29/19 at 19:00; Status DC Ropinirole HCl (Requip) 3 mg 1X ONCE PO Last administered on 07/30/19at 00:20; Start 07/30/19 at 00:30; Stop 07/30/19 at 00:31; Status DC Amitriptyline HCl (Elavil) 25 mg PRN QHS PRN PO INSOMNIA Last administered on 07/30/19at 00:20; Start 07/30/19 at 00:15 Influenza Virus Vaccine Quadrival (Afluria Quad 2019-20 (3yr Up) Syringe) 0.5 ml ONCE ONCE VAX IM Last administered on 07/30/19at 11:26; Start 07/30/19 at 08:30; Stop 07/30/19 at 08:31; Status DC Active Scripts Active Fluticasone Propionate Nasal [place] (Fluticasone Propionate) 16 Gm [place].susp 2 [place] NS DAILY 30 Days Duoneb 0.5-3(2.5) Mg/3 Ml (Albuterol/Ipratropium) 3 Ml Amp[place].neb 3 Ml NEB RTQID 14 Days Reported Nexium Capsule (Esomeprazole Magnesium) 40 Mg Capsule.dr 40 Mg PO DAILYAC Montelukast Sodium Tablet (Montelukast Sodium) 10 Mg Tablet 10 Mg PO HS Magnesium (Magnesium Oxide) 400 Mg Capsule 200 Mg PO DAILY Levocetirizine Dihydrochloride 5 Mg Tablet 5 Mg PO DAILY Azelastine Hcl 137 Mcg/0.137 Ml [place].pump 2 [place] NS PRN BID PRN 30 Days Amitriptyline Hcl 25 Mg Tablet 25 Mg PO QHS Tylenol (Acetaminophen) 325 Mg Tablet 650 Mg PO PRN Q4HRS PRN Aspir 81 (Aspirin) 81 Mg Tablet.dr 1 Tab PO DAILY Metoprolol Succinate ( Xl ) (Metoprolol Succinate) 25 Mg Tab.er.24h 25 Mg PO DAILY Vitamin D3 (Cholecalciferol (Vitamin D3)) 1,000 Unit Tablet 1 Tab PO DAILY Torsemide 20 Mg Tablet 1 Tab PO DAILY Gabapentin (Gabapentin) 100 Mg Capsule 100 Mg PO TID Ferrous Sulfate 325 Mg Tablet 1 Tab PO DAILY Daliresp (Roflumilast) 500 Mcg Tablet 1 Tab PO DAILY Atorvastatin Calcium 20 Mg Tablet 20 Mg PO HS Requip (Ropinirole Hcl) 1 Mg Tablet 3 Tab PO QHS Proair Hfa Inhaler (Albuterol Sulfate) 8.5 Gm Hfa.aer.ad 1 Puff INH PRN Q6HRS PRN Lidocaine PATCH (Lidocaine) 1 Each Adh..patch 1 Each TP Levothyroxine Sodium 50 Mcg Tablet 1 Tab PO DAILY Allergies Allergies: Coded Allergies: ibuprofen (Verified Allergy, Severe, Swelling, 08/09/18) naproxen (Verified Allergy, Severe, Shortness of Air, 10/25/18) tolerates asa piperacillin (Verified Allergy, Severe, Swelling, 08/09/18) tazobactam (Verified Allergy, Severe, Swelling, 08/09/18) ROS General: YES: Fatigue, Malaise; No: Chills, Night Sweats, Appetite, Other PSYCHOLOGICAL ROS: No: Anxiety, Behavioral Disorder, Concentration difficultie, Decreased libido, Depression, Disorientation, Hallucinations, Hostility, Irritablity, Memory difficulties, Mood Swings, Obsessive thoughts, Physical abuse, Sexual abuse, Sleep disturbances, Suicidal ideation, Other Eyes: No Blurry vision, No Decreased vision, No Double vision, No Dry eyes, No Excessive tearing, No Eye Pain, No Itchy Eyes, No Loss of vision, No Photophobia, No Scotomata, No Uses contacts, No Uses glasses, No Other HEENT: YES: Heacaches, Nasal congestion, Nasal discharge, Sinus pain; No: Visual Changes, Hearing change, Oral lesions, Sore Throat, Epistaxis, Sneezing, Snoring, Tinnitus, Vertigo, Vocal changes, Other ALLERGY AND IMMUNOLOGY: No: Hives, Insect Bite Sensitivity, Itchy/Watery Eyes, Nasal Congestion, Post Nasal Drip, Seasonal Allergies, Other Hematological and Lymphatic: No: Bleeding Problems, Blood Clots, Blood Transfusions, Brusing, Night Sweats, Pallor, Swollen Lymph Nodes, Other ENDOCRINE: No: Breast Changes, Galactorrhea, Hair Pattern Changes, Hot Flashes, Malaise/lethargy, Mood Swings, Palpitations, Polydipsia/polyuria, Skin Changes, Temperature Intolerance, Unexpected Weight Changes, Other Breast: No New/Changing Breast Lumps, No Nipple changes, No Nipple discharge, No Other Respiratory: YES: Cough, Pleuritic Pain, Shortness of breath, SOB with excertion, Tachypnea, Wheezing; No: Hemoptysis, Orthopnea, Sputum Changes, Stridor, Other Cardiovascular: yes Chest Pain; No Palpitations, No Orthopnea, No Paroxysmal Noc. Dyspnea, No Edema, No Lt Headedness, No Other Gastrointestinal: Yes Nausea; No Vomiting, No Abdominal Pain, No Diarrhea, No Constipation, No Melena, No Hematochezia, No Other Genitourinary: No Dysuria, No Frequency, No Incontinence, No Hematuria, No Retention, No Discharge, No Urgency, No Pain, No Flank Pain, No Other, No , No , No , No , No , No , No Musculoskeletal: No Gait Disturbance, No Joint Pain, No Joint Stiffness, No Joint Swelling, No Muscle Pain, No Muscular Weakness, No Pain In:, No Swelling In:, No Other Neurological: No Behavorial Changes, No Bowel/Bladder ControlChng, No Confusion, No Dizziness, No Gait Disturbance, No Headaches, No Impaired Coord/balance, No Memory Loss, No Numbness/Tingling, No Seizures, No Speech Problems, No Tremors, No Visual Changes, No Weakness, No Other Skin: No Dry Skin, No Eczema, No Hair Changes, No Lumps, No Mole Changes, No Mottling, No Nail Changes, No Pruritus, No Rash, No Skin Lesion Changes, No Other, No Acne Physical Exam General: Alert, Oriented X3, Cooperative, No acute distress HEENT: Atraumatic, PERRLA, EOMI, Mucous membr. moist/pink, Other (Left maxillary sinus pain on palpation) Lungs: Other (Wheezing scattered, prolonged expiratory phase) Heart: S1S2, RRR, no thrills, no rubs, no gallops, no murmurs Abdomen: Normal bowel sounds, Soft, No tenderness, No hepatosplenomegaly, No masses Rectal Exam: not examined Extremities: No clubbing, No cyanosis, No edema, Normal pulses, No tenderness/s welling Skin: No rashes, No breakdown, No significant lesion Neuro: Normal gait, Normal speech, Strength at 5/5 X4 ext, Normal tone, Sensation intact, Cranial nerves 3-12 NL, Reflexes 2+ Psych/Mental Status: Mental status NL, Mood NL Vitals Vitals Vital Signs Date Time Temp Pulse Resp B/P (MAP) Pulse Ox O2 Delivery O2 Flow Rate FiO2 07/30/19 11:00 98.1 72 16 100/49 (66) 97 Nasal Cannula 2.0 98.1 Labs Labs Laboratory Tests Test 07/29/19 18:00 07/29/19 18:42 07/29/19 20:15 07/29/19 21:20 White Blood Count 8.7 x10^3/uL (4.0-11.0) Red Blood Count 4.10 x10^6/uL (3.50-5.40) Hemoglobin 13.0 g/dL (12.0-15.5) Hematocrit 39.2 % (36.0-47.0) Mean Corpuscular Volume 96 fL (79-100) Mean Corpuscular Hemoglobin 32 pg (25-35) Mean Corpuscular Hemoglobin Concent 33 g/dL (31-37) Red Cell Distribution Width 14.0 % (11.5-14.5) Platelet Count 249 x10^3/uL (140-400) Neutrophils (%) (Auto) 68 % (31-73) Lymphocytes (%) (Auto) 23 % (24-48) Monocytes (%) (Auto) 6 % (0-9) Eosinophils (%) (Auto) 3 % (0-3) Basophils (%) (Auto) 1 % (0-3) Neutrophils # (Auto) 5.9 x10^3/uL (1.8-7.7) Lymphocytes # (Auto) 2.0 x10^3/uL (1.0-4.8) Monocytes # (Auto) 0.5 x10^3/uL (0.0-1.1) Eosinophils # (Auto) 0.2 x10^3/uL (0.0-0.7) Basophils # (Auto) 0.1 x10^3/uL (0.0-0.2) Prothrombin Time 11.7 SEC (11.7-14.0) Prothromb Time International Ratio 0.9 (0.8-1.1) Activated Partial Thromboplast Time 29 SEC (24-38) Sodium Level 141 mmol/L (136-145) Potassium Level 4.6 mmol/L (3.5-5.1) Chloride Level 103 mmol/L (98-107) Carbon Dioxide Level 32 mmol/L (21-32) Anion Gap 6 (6-14) Blood Urea Nitrogen 15 mg/dL (7-20) Creatinine 1.5 mg/dL (0.6-1.0) Estimated GFR (Cockcroft-Gault) 34.9 BUN/Creatinine Ratio 10 (6-20) Glucose Level 95 mg/dL (70-99) Lactic Acid Level 2.1 mmol/L (0.4-2.0) 2.8 mmol/L (0.4-2.0) Calcium Level 9.0 mg/dL (8.5-10.1) Magnesium Level 2.2 mg/dL (1.8-2.4) Total Bilirubin 0.3 mg/dL (0.2-1.0) Aspartate Amino Transf (AST/SGOT) 13 U/L (15-37) Alanine Aminotransferase (ALT/SGPT) 15 U/L (14-59) Alkaline Phosphatase 79 U/L (46-116) Troponin I Quantitative < 0.017 ng/mL (0.000-0.055) < 0.017 ng/mL (0.000-0.055) KN-Dtj-V-Type Natriuretic Peptide 329 pg/mL (0-124) Total Protein 7.7 g/dL (6.4-8.2) Albumin 3.3 g/dL (3.4-5.0) Albumin/Globulin Ratio 0.8 (1.0-1.7) O2 Saturation 99 % (92-99) Arterial Blood pH 7.52 (7.35-7.45) Arterial Blood pCO2 at Patient Temp 35 mmHg (35-46) Arterial Blood pO2 at Patient Temp 227 mmHg (65-108) Arterial Blood HCO3 28 mmol/L (21-28) Arterial Blood Base Excess 5 mmol/L (-3-3) Oxyhemoglobin 96.7 % Methemoglobin 0.4 % (0.0-1.9) Carbon Monoxide, Quantitative 1.7 % (0.0-1.9) FiO2 50 Creatine Kinase 31 U/L (26-192) Creatine Kinase MB (Mass) < 0.5 ng/mL (0.0-3.6) Creatine Kinase MB Relative Index % (0-4) Test 07/30/19 01:05 07/30/19 07:00 07/30/19 07:36 07/30/19 11:42 White Blood Count 8.2 x10^3/uL (4.0-11.0) Red Blood Count 3.87 x10^6/uL (3.50-5.40) Hemoglobin 12.4 g/dL (12.0-15.5) Hematocrit 36.9 % (36.0-47.0) Mean Corpuscular Volume 96 fL (79-100) Mean Corpuscular Hemoglobin 32 pg (25-35) Mean Corpuscular Hemoglobin Concent 34 g/dL (31-37) Red Cell Distribution Width 14.1 % (11.5-14.5) Platelet Count 190 x10^3/uL (140-400) Heparin Anti-Xa Act, Unfractionated 0.76 IU/mL (0.30-0.70) 0.70 IU/mL (0.30-0.70) Creatine Kinase 34 U/L (26-192) Creatine Kinase MB (Mass) < 0.5 ng/mL (0.0-3.6) Creatine Kinase MB Relative Index % (0-4) Troponin I Quantitative < 0.017 ng/mL (0.000-0.055) Glucose (Fingerstick) 152 mg/dL (70-99) 123 mg/dL (70-99) Laboratory Tests Test 07/29/19 18:00 07/29/19 18:42 07/29/19 20:15 07/29/19 21:20 White Blood Count 8.7 x10^3/uL (4.0-11.0) Red Blood Count 4.10 x10^6/uL (3.50-5.40) Hemoglobin 13.0 g/dL (12.0-15.5) Hematocrit 39.2 % (36.0-47.0) Mean Corpuscular Volume 96 fL (79-100) Mean Corpuscular Hemoglobin 32 pg (25-35) Mean Corpuscular Hemoglobin Concent 33 g/dL (31-37) Red Cell Distribution Width 14.0 % (11.5-14.5) Platelet Count 249 x10^3/uL (140-400) Neutrophils (%) (Auto) 68 % (31-73) Lymphocytes (%) (Auto) 23 % (24-48) Monocytes (%) (Auto) 6 % (0-9) Eosinophils (%) (Auto) 3 % (0-3) Basophils (%) (Auto) 1 % (0-3) Neutrophils # (Auto) 5.9 x10^3/uL (1.8-7.7) Lymphocytes # (Auto) 2.0 x10^3/uL (1.0-4.8) Monocytes # (Auto) 0.5 x10^3/uL (0.0-1.1) Eosinophils # (Auto) 0.2 x10^3/uL (0.0-0.7) Basophils # (Auto) 0.1 x10^3/uL (0.0-0.2) Prothrombin Time 11.7 SEC (11.7-14.0) Prothromb Time International Ratio 0.9 (0.8-1.1) Activated Partial Thromboplast Time 29 SEC (24-38) Sodium Level 141 mmol/L (136-145) Potassium Level 4.6 mmol/L (3.5-5.1) Chloride Level 103 mmol/L (98-107) Carbon Dioxide Level 32 mmol/L (21-32) Anion Gap 6 (6-14) Blood Urea Nitrogen 15 mg/dL (7-20) Creatinine 1.5 mg/dL (0.6-1.0) Estimated GFR (Cockcroft-Gault) 34.9 BUN/Creatinine Ratio 10 (6-20) Glucose Level 95 mg/dL (70-99) Lactic Acid Level 2.1 mmol/L (0.4-2.0) 2.8 mmol/L (0.4-2.0) Calcium Level 9.0 mg/dL (8.5-10.1) Magnesium Level 2.2 mg/dL (1.8-2.4) Total Bilirubin 0.3 mg/dL (0.2-1.0) Aspartate Amino Transf (AST/SGOT) 13 U/L (15-37) Alanine Aminotransferase (ALT/SGPT) 15 U/L (14-59) Alkaline Phosphatase 79 U/L (46-116) Troponin I Quantitative < 0.017 ng/mL (0.000-0.055) < 0.017 ng/mL (0.000-0.055) QW-Pbe-Q-Type Natriuretic Peptide 329 pg/mL (0-124) Total Protein 7.7 g/dL (6.4-8.2) Albumin 3.3 g/dL (3.4-5.0) Albumin/Globulin Ratio 0.8 (1.0-1.7) O2 Saturation 99 % (92-99) Arterial Blood pH 7.52 (7.35-7.45) Arterial Blood pCO2 at Patient Temp 35 mmHg (35-46) Arterial Blood pO2 at Patient Temp 227 mmHg (65-108) Arterial Blood HCO3 28 mmol/L (21-28) Arterial Blood Base Excess 5 mmol/L (-3-3) Oxyhemoglobin 96.7 % Methemoglobin 0.4 % (0.0-1.9) Carbon Monoxide, Quantitative 1.7 % (0.0-1.9) FiO2 50 Creatine Kinase 31 U/L (26-192) Creatine Kinase MB (Mass) < 0.5 ng/mL (0.0-3.6) Creatine Kinase MB Relative Index % (0-4) Test 07/30/19 01:05 07/30/19 07:00 07/30/19 07:36 07/30/19 11:42 White Blood Count 8.2 x10^3/uL (4.0-11.0) Red Blood Count 3.87 x10^6/uL (3.50-5.40) Hemoglobin 12.4 g/dL (12.0-15.5) Hematocrit 36.9 % (36.0-47.0) Mean Corpuscular Volume 96 fL (79-100) Mean Corpuscular Hemoglobin 32 pg (25-35) Mean Corpuscular Hemoglobin Concent 34 g/dL (31-37) Red Cell Distribution Width 14.1 % (11.5-14.5) Platelet Count 190 x10^3/uL (140-400) Heparin Anti-Xa Act, Unfractionated 0.76 IU/mL (0.30-0.70) 0.70 IU/mL (0.30-0.70) Creatine Kinase 34 U/L (26-192) Creatine Kinase MB (Mass) < 0.5 ng/mL (0.0-3.6) Creatine Kinase MB Relative Index % (0-4) Troponin I Quantitative < 0.017 ng/mL (0.000-0.055) Glucose (Fingerstick) 152 mg/dL (70-99) 123 mg/dL (70-99) Images Images CXR - AICD with leads terminating the right atrium, ventricle and coronary sinus. Heart is mildly enlarged. Pulmonary vessels are within normal limits. The lung and pleural spaces are clear. VTE Prophylaxis Ordered VTE Prophylaxis Devices: No VTE Pharmacological Prophylaxi: Yes Assessment/Plan Assessment/Plan A/P: Chest pain - sounds pleuritic, but with her h/o CHF needs cardiac evaluation, trend troponins. ASA, BB. Started on heparin GTT in ED Shortness of breath - this seems like a COPD exacerbation incited by smoking, change of seasons, also with sinus infection. 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 May be in mild exacerbation. Consult cardiology. Lasix Hypertension - cont meds COPD, unknown FEV1 - will treat as acute exacerbation Left maxillary sinusitis - doxycycline and prednisone Chronic respiratory failure on 2l NCO2 - Will downtitrate as tolerated Osteoarthritis - cont meds FEN - Cardiac diet PPX - Heparin GTT Full code Dispo - inpatient for chest pain/COPD exacerbation PHONG YEBOAH MD Jul 30, 2019 11:58
[2019-07-30] MEDS ORDERED: AZELASTINE NASAL SPRAY 30ML BOTTLE. NS PRN (12:00)
[2019-07-30] MEDS: IPRATRPIUM/ALBUTEROL 0.5/2.5MG 3 ML NEBU. NEB SCH ×3 (12:00→20:12)
[2019-07-30] MEDS ORDERED: DEXTROSE 50% 25 GM / 50ML DISP.SYRIN. IV PRN (12:00)
[2019-07-30] MEDS: LIDOCAINE (700MG/PATCH) PATCH. TP SCH (12:00)
[2019-07-30] MEDS: INSULIN LISPRO 300 UNITS/3 ML VIAL. SQ SCH ×3 (12:00→21:20)
[2019-07-30] MEDS: FLUTICASONE 50MCG/NASAL SPRAY 16GM BOTTLE. NS SCH (12:00)
[2019-07-30] MEDS ORDERED: ACETAMINOPHEN 325 MG TABLET. PO PRN (12:00)
[2019-07-30] MEDS: PANTOPRAZOLE 40 MG TABLET.DR. PO SCH (12:23)
[2019-07-30] MEDS: CHOLECALCIFEROL (VITAMIN D3) 1,000 UNIT TABLET PO SCH (12:23)
[2019-07-30] MEDS: CETIRIZINE HCL 10 MG TABLET. PO SCH (12:24)
[2019-07-30] MEDS: ASPIRIN ENTERIC COATED 81 MG TABLET.DR. PO SCH (12:24)
[2019-07-30] MEDS: FERROUS SULFATE 325 MG TABLET. PO SCH (12:24)
--- NOTE | 2019-07-30 12:24 | NUR ---
SS following for discharge planning. SS reviewed pt chart. Pt is from home with spouse and is currently requiring oxygen. Pt was previously on services in the past with [facility], ; fax [phone]. SS will continue to follow for discharge planning.
[2019-07-30] MEDS: MAGNESIUM OXIDE 400 MG TABLET PO SCH (12:25)
[2019-07-30] MEDS: ROFLUMILAST 500 MCG TABLET. PO SCH (12:25)
[2019-07-30] MEDS: LEVOTHYROXINE 50 MCG TABLET PO SCH (12:25)
[2019-07-30] MEDS: TORSEMIDE 20 MG TABLET. PO SCH (12:28)
[2019-07-30] MEDS: METOPROLOL SUCC 24HR ER 25 MG TAB.ER.24H. PO SCH (12:29)
[2019-07-30] MEDS: predniSONE 20 MG TABLET PO SCH (12:38)
[2019-07-30] MEDS: DOXYCYCLINE HYCLATE 100 MG TABLET PO SCH ×2 (12:38→21:15)
[2019-07-30] MEDS: ALBUTEROL SULFATE 2.5 MG/3 ML NEBU. INH PRN ×2 (14:19→15:28)
[2019-07-30] MEDS ORDERED: ANTI-COAG MONITOR BY PHARMACY. MC PRN (14:30)
[2019-07-30 15:00] VITALS: BP 97/47
[2019-07-30] MEDS: GABAPENTIN 100 MG CAPSULE. PO SCH ×2 (15:03→21:16)
--- NOTE | 2019-07-30 18:14 | NUR ---
PT RECEIVED ALBUTEROL TX AT 1530 SO 1600 TX WAS HELD [employer]
[2019-07-30 19:27] VITALS: BP 118/55
[2019-07-30] MEDS ORDERED: SACU1TAB7 PO (19:43)
[2019-07-30] MEDS ORDERED: POTA20TA84 PO (19:43)
[2019-07-30] MEDS ORDERED: AMITRIPTYLINE HCL 25 MG TABLET. PO SCH (21:00)
[2019-07-30] MEDS ORDERED: ATORVASTATIN CALCIUM 20 MG TABLET PO SCH (21:00)
[2019-07-30] MEDS ORDERED: rOPINIRole 1 MG TABLET. PO SCH (21:00)
[2019-07-30] MEDS ORDERED: MONTELUKAST SODIUM 10 MG TABLET. PO SCH (21:00)
[2019-07-30] MEDS: SACUBITRIL/VALSARTAN 49/51MG TABLET. PO SCH (21:15)
[2019-07-30 23:31] VITALS: BP 107/53
--- NOTE | 2019-07-31 02:22 | CONS ---
DATE OF CONSULTATION: 07/30/2019 ATTENDING PHYSICIAN: Dr. Mccloud. REASON FOR CONSULTATION: The patient was seen in pulmonary consultation at the request of Dr. Mccloud for increasing shortness of air. 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 She has chronic respiratory failure, normally on 2 liters of oxygen supplementation, underlying COPD, unknown FEV1, presents with increasing shortness of breath, cough productive of some clear sputum. She had a chest x-ray, which I reviewed. I do not appreciate any acute cardiopulmonary process. She does smoke. She was last admitted with an acute exacerbation of COPD back in October. At that time, the patient was treated and was discharged home. PAST MEDICAL HISTORY: COPD, unknown FEV1; cardiomyopathy; chronic respiratory failure; osteoarthritis; hypertension; chronic heart failure; type 2 diabetes; hypothyroidism. PAST SURGICAL HISTORY: Status post cholecystectomy, . She is also status post pacemaker implantation. 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 ALLERGIES: IBUPROFEN, NAPROSYN, PIPERACILLIN, TAZOBACTAM. REVIEW OF SYSTEMS: CONSTITUTIONAL: No fever or chills. EYES: No change in visual acuity. HENT: No nasal congestion or sore throat. PULMONARY: As indicated above. CARDIOVASCULAR: No chest pain. No pressure. GASTROINTESTINAL: No nausea, vomiting, diarrhea. GENITOURINARY: No dysuria or frequency. MUSCULOSKELETAL: No localized muscle aches or joint pains. SKIN: No new skin rashes. NEUROLOGIC: No headaches, diplopia or blurred vision. PHYSICAL EXAMINATION: VITAL SIGNS: The patient was in no respiratory distress, currently on 2 liters of oxygen supplementation. HEENT: Eyes, the sclerae were nonicteric. NECK: Jugular venous distention was not elevated. No lymphadenopathy. CHEST: Full expansion. LUNGS: Poor airway flow with crackles in the bases. No wheezes. CARDIOVASCULAR: Regular rate and rhythm with S1, S2, no S3. ABDOMEN: Soft, nontender, nondistended. EXTREMITIES: No clubbing, cyanosis or edema. IMAGING: Chest x-ray was reviewed, no acute cardiopulmonary process. LABORATORY DATA: Likewise reviewed. White count was normal. Hemoglobin and hematocrit were noted. Arterial blood gas; pH of 7.52, PaCO2 of 35, PaO2 of 227 on 50%. Lactic acid level was elevated at 2.1. Troponin was not elevated. IMPRESSION: 1. Ytnko-tm-iuougue hypoxemic respiratory failure. 2. Acute exacerbation of chronic obstructive pulmonary disease. 3. Chronic systolic heart failure. 4. Nonischemic cardiomyopathy, status post biventricular ICD. 5. Hyperlipidemia. 6. Type 2 diabetes. 7. Tobacco dependence. 8. Chronic obstructive pulmonary disease. PLAN: 1. Continue current medical management. The patient instructed on the importance of discontinuing tobacco use. 2. I concur with Cardiology. I do not see acute heart failure as a component of her presenting symptoms. 3. Steroids. 4. Nebulized treatments. 5. I spent 5 minutes talking to the patient about the importance of discontinuing tobacco use and offered her nicotine replacement, she states that the nicotine replacement makes her jittery and causes shakiness. We spoke about Wellbutrin. I do appreciate the privilege in sharing in the patient's care. LETICIA FORTUNE MD DR: JOHANNA/lisa JOB#: [id number] / [id number]
[2019-07-31 03:39] LABS: CALCIUM 8.7 mg/dL (8.5-10.1); CREATININE 1.5 mg/dL (0.6-1.0); GFR 34.9; POTASSIUM 4.1 mmol/L (3.5-5.1)
[2019-07-31 03:43] VITALS: BP 99/51
[2019-07-31] MEDS: LEVOTHYROXINE 50 MCG TABLET PO SCH (06:10)
[2019-07-31] MEDS: PANTOPRAZOLE 40 MG TABLET.DR. PO SCH (06:10)
[2019-07-31 07:00] VITALS: BP 90/51
[2019-07-31] MEDS: INSULIN LISPRO 300 UNITS/3 ML VIAL. SQ SCH ×2 (07:30→11:30)
[2019-07-31] MEDS: IPRATRPIUM/ALBUTEROL 0.5/2.5MG 3 ML NEBU. NEB SCH ×2 (07:45→11:43)
--- NOTE | 2019-07-31 08:11 | PDOC ---
PROGRESS NOTES Chief Complaint Chief Complaint A/P: Chest pain - sounds pleuritic, but with her h/o CHF needs cardiac evaluation, trend troponins. ASA, BB. Started on heparin GTT in ED. stopped by cardiology Shortness of breath - this seems like a COPD exacerbation incited by smoking, change of seasons, also with sinus infection. Started prednisone, doxy, nebs. Smoking cessation is simons Tobacco use for at least 30 years - counseled on cessation, failed chantix. 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 not in exacerbation. Consult cardiology. Lasix Hypertension - cont meds COPD, unknown FEV1 - will treat as acute exacerbation Left maxillary sinusitis - doxycycline and prednisone Chronic respiratory failure on 2l NCO2 - Will downtitrate as tolerated Osteoarthritis - cont meds FEN - Cardiac diet PPX - Lovenox Full code Dispo - inpatient for chest pain/COPD exacerbation History of Present Illness History of Present Illness Ms Mathur is a 63-year-old who has a long history of tobacco use for at least 30 years, CHF, unknown EF, hypertension, COPD, unknown FEV1, chronic respiratory failure on 2l NCO2, osteoarthritis who was brought into the hospital with increasing shortness of breath with associated chest pain. She has had sinus pressure and headache for the past 8 days on the left side. She has been wheezing as well. She has a cough, which has been nonproductive. Chest x-ray unchanged from prior. No nausea, vomiting, no diarrhea. No focal weakness. No skin rash. No blurring of vision. Cr notably 1.5, up from 1.1 baseline. She c/o severe left sided headache and tooth pain, has had some nasal congestion with discharge. No body aches. She did not a fever of 101.1F on 07/28/19, no elevated temp since then. Vitals Vitals Vital Signs Date Time Temp Pulse Resp B/P (MAP) Pulse Ox O2 Delivery O2 Flow Rate FiO2 07/31/19 07:45 98 Nasal Cannula 2.0 07/31/19 03:43 98.0 77 16 99/51 (67) 98.0 Physical Exam General: Alert, Oriented X3 Heart: Regular rate Lungs: Wheezing, Other Abdomen: Soft, No tenderness Extremities: No edema Skin: No rashes, No breakdown, No significant lesion Labs LABS Laboratory Tests Test 07/30/19 11:42 07/30/19 16:37 07/30/19 20:41 07/31/19 02:50 Glucose (Fingerstick) 123 mg/dL (70-99) 115 mg/dL (70-99) 212 mg/dL (70-99) Sodium Level 141 mmol/L (136-145) Potassium Level 4.1 mmol/L (3.5-5.1) Chloride Level 101 mmol/L (98-107) Carbon Dioxide Level 33 mmol/L (21-32) Anion Gap 7 (6-14) Blood Urea Nitrogen 24 mg/dL (7-20) Creatinine 1.5 mg/dL (0.6-1.0) Estimated GFR (Cockcroft-Gault) 34.9 Glucose Level 237 mg/dL (70-99) Calcium Level 8.7 mg/dL (8.5-10.1) Assessment and Plan Assessmemt and Plan Problems Medical Problems: (1) Acute electrocardiogram changes Status: Acute (2) Chest pain Status: Acute (3) COPD exacerbation Status: Acute (4) Hypoxia Status: Acute (5) Lactic acidosis Status: Acute Comment Review of Relevant I have reviewed the following items jon (where applicable) has been applied. Labs Laboratory Tests Test 07/29/19 18:00 07/29/19 18:42 07/29/19 20:15 07/29/19 21:20 White Blood Count 8.7 x10^3/uL (4.0-11.0) Red Blood Count 4.10 x10^6/uL (3.50-5.40) Hemoglobin 13.0 g/dL (12.0-15.5) Hematocrit 39.2 % (36.0-47.0) Mean Corpuscular Volume 96 fL (79-100) Mean Corpuscular Hemoglobin 32 pg (25-35) Mean Corpuscular Hemoglobin Concent 33 g/dL (31-37) Red Cell Distribution Width 14.0 % (11.5-14.5) Platelet Count 249 x10^3/uL (140-400) Neutrophils (%) (Auto) 68 % (31-73) Lymphocytes (%) (Auto) 23 % (24-48) Monocytes (%) (Auto) 6 % (0-9) Eosinophils (%) (Auto) 3 % (0-3) Basophils (%) (Auto) 1 % (0-3) Neutrophils # (Auto) 5.9 x10^3/uL (1.8-7.7) Lymphocytes # (Auto) 2.0 x10^3/uL (1.0-4.8) Monocytes # (Auto) 0.5 x10^3/uL (0.0-1.1) Eosinophils # (Auto) 0.2 x10^3/uL (0.0-0.7) Basophils # (Auto) 0.1 x10^3/uL (0.0-0.2) Prothrombin Time 11.7 SEC (11.7-14.0) Prothromb Time International Ratio 0.9 (0.8-1.1) Activated Partial Thromboplast Time 29 SEC (24-38) Sodium Level 141 mmol/L (136-145) Potassium Level 4.6 mmol/L (3.5-5.1) Chloride Level 103 mmol/L (98-107) Carbon Dioxide Level 32 mmol/L (21-32) Anion Gap 6 (6-14) Blood Urea Nitrogen 15 mg/dL (7-20) Creatinine 1.5 mg/dL (0.6-1.0) Estimated GFR (Cockcroft-Gault) 34.9 BUN/Creatinine Ratio 10 (6-20) Glucose Level 95 mg/dL (70-99) Lactic Acid Level 2.1 mmol/L (0.4-2.0) 2.8 mmol/L (0.4-2.0) Calcium Level 9.0 mg/dL (8.5-10.1) Magnesium Level 2.2 mg/dL (1.8-2.4) Total Bilirubin 0.3 mg/dL (0.2-1.0) Aspartate Amino Transf (AST/SGOT) 13 U/L (15-37) Alanine Aminotransferase (ALT/SGPT) 15 U/L (14-59) Alkaline Phosphatase 79 U/L (46-116) Troponin I Quantitative < 0.017 ng/mL (0.000-0.055) < 0.017 ng/mL (0.000-0.055) EE-[id number]-M-Type Natriuretic Peptide 329 pg/mL (0-124) Total Protein 7.7 g/dL (6.4-8.2) Albumin 3.3 g/dL (3.4-5.0) Albumin/Globulin Ratio 0.8 (1.0-1.7) O2 Saturation 99 % (92-99) Arterial Blood pH 7.52 (7.35-7.45) Arterial Blood pCO2 at Patient Temp 35 mmHg (35-46) Arterial Blood pO2 at Patient Temp 227 mmHg (65-108) Arterial Blood HCO3 28 mmol/L (21-28) Arterial Blood Base Excess 5 mmol/L (-3-3) Oxyhemoglobin 96.7 % Methemoglobin 0.4 % (0.0-1.9) Carbon Monoxide, Quantitative 1.7 % (0.0-1.9) FiO2 50 Creatine Kinase 31 U/L (26-192) Creatine Kinase MB (Mass) < 0.5 ng/mL (0.0-3.6) Creatine Kinase MB Relative Index % (0-4) Test 07/30/19 01:05 07/30/19 07:00 07/30/19 07:36 07/30/19 11:42 White Blood Count 8.2 x10^3/uL (4.0-11.0) Red Blood Count 3.87 x10^6/uL (3.50-5.40) Hemoglobin 12.4 g/dL (12.0-15.5) Hematocrit 36.9 % (36.0-47.0) Mean Corpuscular Volume 96 fL (79-100) Mean Corpuscular Hemoglobin 32 pg (25-35) Mean Corpuscular Hemoglobin Concent 34 g/dL (31-37) Red Cell Distribution Width 14.1 % (11.5-14.5) Platelet Count 190 x10^3/uL (140-400) Heparin Anti-Xa Act, Unfractionated 0.76 IU/mL (0.30-0.70) 0.70 IU/mL (0.30-0.70) Creatine Kinase 34 U/L (26-192) Creatine Kinase MB (Mass) < 0.5 ng/mL (0.0-3.6) Creatine Kinase MB Relative Index % (0-4) Troponin I Quantitative < 0.017 ng/mL (0.000-0.055) Glucose (Fingerstick) 152 mg/dL (70-99) 123 mg/dL (70-99) Test 07/30/19 16:37 07/30/19 20:41 07/31/19 02:50 Glucose (Fingerstick) 115 mg/dL (70-99) 212 mg/dL (70-99) Sodium Level 141 mmol/L (136-145) Potassium Level 4.1 mmol/L (3.5-5.1) Chloride Level 101 mmol/L (98-107) Carbon Dioxide Level 33 mmol/L (21-32) Anion Gap 7 (6-14) Blood Urea Nitrogen 24 mg/dL (7-20) Creatinine 1.5 mg/dL (0.6-1.0) Estimated GFR (Cockcroft-Gault) 34.9 Glucose Level 237 mg/dL (70-99) Calcium Level 8.7 mg/dL (8.5-10.1) Laboratory Tests Test 07/30/19 11:42 07/30/19 16:37 07/30/19 20:41 07/31/19 02:50 Glucose (Fingerstick) 123 mg/dL (70-99) 115 mg/dL (70-99) 212 mg/dL (70-99) Sodium Level 141 mmol/L (136-145) Potassium Level 4.1 mmol/L (3.5-5.1) Chloride Level 101 mmol/L (98-107) Carbon Dioxide Level 33 mmol/L (21-32) Anion Gap 7 (6-14) Blood Urea Nitrogen 24 mg/dL (7-20) Creatinine 1.5 mg/dL (0.6-1.0) Estimated GFR (Cockcroft-Gault) 34.9 Glucose Level 237 mg/dL (70-99) Calcium Level 8.7 mg/dL (8.5-10.1) Microbiology 07/29/19 Blood Culture - Preliminary, Resulted NO GROWTH AFTER 1 DAY Medications Current Medications Methylprednisolone Sodium Succinate (SOLU-Medrol 125MG VIAL) 62.5 mg 1X STAT IV Last administered on 07/29/19at 17:40; Start 07/29/19 at 17:40; Stop 07/29/19 at 17:49; Status DC Albuterol/ Ipratropium (Duoneb) 3 ml 1X ONCE NEB Last administered on 07/29/19at 17:54; Start 07/29/19 at 17:45; Stop 07/29/19 at 17:49; Status DC Aztreonam (Azactam) 2 gm 1X ONCE IVP Last administered on 07/29/19at 18:45; Start 07/29/19 at 18:45; Stop 07/29/19 at 18:46; Status DC Heparin Sodium (Porcine) (Heparin Sodium) 1,700 unit PRN Q6HRS PRN IV FOR UFH LEVEL LESS THAN 0.2; Start 07/29/19 at 18:45; Stop 07/30/19 at 17:57; Status DC Methylprednisolone Sodium Succinate (SOLU-Medrol 125MG VIAL) 62.5 mg 1X STAT IV Last administered on 07/29/19at 19:07; Start 07/29/19 at 18:42; Stop 07/29/19 at 18:45; Status DC Albuterol Sulfate (Ventolin Neb Soln) 10 mg 1X STAT CONT NEB Last administered on 07/29/19at 18:57; Start 07/29/19 at 18:42; Stop 07/29/19 at 18:45; Status DC Heparin Sodium (Porcine) (Heparin Sodium) 4,000 unit 1X ONCE IV Last administered on 07/29/19at 19:06; Start 07/29/19 at 19:00; Stop 07/29/19 at 19:01; Status DC Heparin Sodium/ Dextrose 500 ml @ 16.1 mls/hr CONT PRN IV PER PROTOCOL Last administered on 07/29/19at 19:05; Start 07/29/19 at 19:00; Stop 07/30/19 at 17:57; Status DC Levofloxacin/ Dextrose 100 ml @ 100 mls/hr 1X ONCE IV Last administered on 07/29/19at 19:15; Start 07/29/19 at 19:00; Stop 07/29/19 at 19:59; Status DC Heparin Sodium/ Dextrose 500 ml @ As Directed STK-MED ONCE IV ; Start 07/29/19 at 18:59; Stop 07/29/19 at 19:00; Status DC Ropinirole HCl (Requip) 3 mg 1X ONCE PO Last administered on 07/30/19at 00:20; Start 07/30/19 at 00:30; Stop 07/30/19 at 00:31; Status DC Amitriptyline HCl (Elavil) 25 mg PRN QHS PRN PO INSOMNIA Last administered on 07/30/19 00:20; Start 07/30/19 at 00:15; Stop 07/30/19 at 11:58; Status DC Influenza Virus Vaccine Quadrival (Afluria Quad 2019-20 (3yr Up) Syringe) 0.5 ml ONCE ONCE VAX IM Last administered on 07/30/19 11:26; Start 07/30/19 at 08:30; Stop 07/30/19 at 08:31; Status DC Insulin Human Lispro (HumaLOG) 0-7 UNITS TIDACHC SQ Last administered on 07/30/19at 21:20; Start 07/30/19 at 12:00 Dextrose (Dextrose 50%-Water Syringe) 12.5 gm PRN Q15MIN PRN IV SEE COMMENTS; Start 07/30/19 at 12:00 Acetaminophen (Tylenol) 650 mg PRN Q4HRS PRN PO PAIN Last administered on 07/30/19at 12:33; Start 07/30/19 at 12:00 Albuterol Sulfate (Ventolin Neb Soln) 2.5 mg PRN Q6HRS PRN INH SHORTNESS OF BREATH Last administered on 07/30/19at 15:28; Start 07/30/19 at 12:00 Amitriptyline HCl (Elavil) 25 mg QHS PO Last administered on 07/30/19at 21:16; Start 07/30/19 at 21:00 Aspirin (Ecotrin) 81 mg DAILY PO Last administered on 07/30/19 12:24; Start 07/30/19 at 12:01 Atorvastatin Calcium (Lipitor) 20 mg HS PO Last administered on 07/30/19at 21:15; Start 07/30/19 at 21:00 Azelastine HCl (Astelin) 2 spray PRN BID PRN NS NASAL ALLERGIES; Start 07/30/19 at 12:00 Vitamin D (Vitamin D3) 1,000 unit DAILY PO Last administered on 07/30/19 12:23; Start 07/30/19 at 12:00 Ferrous Sulfate (Feosol) 325 mg DAILY PO Last administered on 07/30/19at 12:24; Start 07/30/19 at 12:00 Fluticasone Propionate (Flonase) 2 spray DAILY NS ; Start 07/30/19 at 12:00 Gabapentin (Neurontin) 100 mg TID PO Last administered on 07/30/19 21:16; Start 07/30/19 at 14:00 Albuterol/ Ipratropium (Duoneb) 3 ml RTQID NEB Last administered on 07/31/19 07:45; Start 07/30/19 at 12:00 Levothyroxine Sodium (Synthroid) 50 mcg DAILY07 PO Last administered on 07/31/19 06:10; Start 07/30/19 at 12:00 Lidocaine (Lidoderm) 1 patch DAILY TP ; Start 07/30/19 at 12:00 Metoprolol Succinate (Toprol Xl) 25 mg DAILY PO Last administered on 07/30/19 12:29; Start 07/30/19 at 12:00 Montelukast Sodium (Singulair) 10 mg HS PO Last administered on 07/30/19 21:16; Start 07/30/19 at 21:00 Roflumilast (Daliresp) 500 mcg DAILY PO Last administered on 07/30/19 12:25; Start 07/30/19 at 12:00 Ropinirole HCl (Requip) 3 mg QHS PO Last administered on 07/30/19 21:14; Start 07/30/19 at 21:00 Torsemide (Demadex) 20 mg DAILY PO Last administered on 07/30/19 12:28; Start 07/30/19 at 12:00 Pantoprazole Sodium (Protonix) 40 mg DAILYAC PO Last administered on 07/31/19 06:10; Start 07/30/19 at 12:00 Cetirizine HCl (ZyrTEC) 10 mg DAILY PO Last administered on 07/30/19 12:24; Start 07/30/19 at 12:00 Magnesium Oxide (Magnesium Oxide) 200 mg DAILY PO Last administered on 07/30/19 12:25; Start 07/30/19 at 12:00 Doxycycline Hyclate (Vibra-Tab) 100 mg BID PO Last administered on 07/30/19 21:15; Start 07/30/19 at 12:30 Prednisone (Prednisone) 40 mg DAILY PO Last administered on 07/30/19 12:38; Start 07/30/19 at 12:30 Info (Anti-Coagulation Monitoring By Pharmacy) 1 each PRN DAILY PRN MC SEE COMMENTS; Start 07/30/19 at 14:30; Stop 07/30/19 at 17:04; Status DC Sacubitril/ Valsartan (Entresto 49 Mg-51 Mg) 1 tab BID PO Last administered on 07/30/19at 21:15; Start 07/30/19 at 21:00 Active Scripts Active Fluticasone Propionate Nasal [place] (Fluticasone Propionate) 16 Gm [place].susp 2 [place] NS DAILY 30 Days Duoneb 0.5-3(2.5) Mg/3 Ml (Albuterol/Ipratropium) 3 Ml Ampul.neb 3 Ml NEB RTQID 14 Days Reported Entresto 49 mg-51 mg Tablet (Sacubitril/Valsartan) 1 Each Tablet 49-51 Mg PO BID K-Tab ER (Potassium Chloride) 20 Meq Tablet.er 20 Meq PO DAILY Nexium Capsule (Esomeprazole Magnesium) 40 Mg Capsule.dr 40 Mg PO DAILYAC Montelukast Sodium Tablet (Montelukast Sodium) 10 Mg Tablet 10 Mg PO HS Magnesium (Magnesium Oxide) 400 Mg Capsule 200 Mg PO DAILY Levocetirizine Dihydrochloride 5 Mg Tablet 5 Mg PO DAILY Azelastine Hcl 137 Mcg/0.137 Ml [place].pump 2 [place] NS PRN BID PRN 30 Days Amitriptyline Hcl 25 Mg Tablet 25 Mg PO QHS Tylenol (Acetaminophen) 325 Mg Tablet 650 Mg PO PRN Q4HRS PRN Aspir 81 (Aspirin) 81 Mg Tablet.dr 1 Tab PO DAILY Metoprolol Succinate ( Xl ) (Metoprolol Succinate) 25 Mg Tab.er.24h 25 Mg PO DAILY Vitamin D3 (Cholecalciferol (Vitamin D3)) 1,000 Unit Tablet 1 Tab PO DAILY Torsemide 20 Mg Tablet 1 Tab PO DAILY Gabapentin (Gabapentin) 100 Mg Capsule 100 Mg PO TID Ferrous Sulfate 325 Mg Tablet 1 Tab PO DAILY Daliresp (Roflumilast) 500 Mcg Tablet 1 Tab PO DAILY Atorvastatin Calcium 20 Mg Tablet 20 Mg PO HS Requip (Ropinirole Hcl) 1 Mg Tablet 3 Tab PO QHS Proair Hfa Inhaler (Albuterol Sulfate) 8.5 Gm Hfa.aer.ad 1 Puff INH PRN Q6HRS PRN Lidocaine PATCH (Lidocaine) 1 Each Adh..patch 1 Each TP Levothyroxine Sodium 50 Mcg Tablet 1 Tab PO DAILY Vitals/I & O Vital Sign - Last 24 Hours 07/30/19 07/30/19 07/30/19 07/30/19 11:00 12:05 12:29 14:19 Temp 98.1 98.1 Pulse 72 60 Resp 16 B/P (MAP) 100/49 (66) 110/57 Pulse Ox 97 96 96 O2 Delivery Nasal Cannula Nasal Cannula Nasal Cannula O2 Flow Rate 2.0 2.0 2.0 07/30/19 07/30/19 07/30/19 07/30/19 15:00 15:29 19:27 20:00 Temp 97.2 97.8 97.2 97.8 Pulse 60 78 Resp 16 16 B/P (MAP) 97/47 (64) 118/55 (76) Pulse Ox 99 96 95 O2 Delivery Nasal Cannula Nasal Cannula Nasal Cannula Nasal Cannula O2 Flow Rate 2.0 2.0 2.0 2.0 07/30/19 07/30/19 07/30/19 07/31/19 20:12 21:15 23:31 03:43 Temp 97.5 98.0 97.5 98.0 Pulse 109 101 77 Resp 16 16 B/P (MAP) 141/72 107/53 (71) 99/51 (67) Pulse Ox 100 99 99 O2 Delivery Nasal Cannula Nasal Cannula Nasal Cannula O2 Flow Rate 2.0 2.0 2.0 07/31/19 07:45 Pulse Ox 98 O2 Delivery Nasal Cannula O2 Flow Rate 2.0 Intake and Output 07/30/19 07/30/19 07/31/19 15:00 23:00 07:00 Intake Total 0 ml Output Total 575 ml Balance -575 ml PHONG YEBOAH MD Jul 31, 2019 08:11
[2019-07-31] MEDS: MAGNESIUM OXIDE 400 MG TABLET PO SCH (08:51)
[2019-07-31] MEDS: FLUTICASONE 50MCG/NASAL SPRAY 16GM BOTTLE. NS SCH (08:51)
[2019-07-31] MEDS: CHOLECALCIFEROL (VITAMIN D3) 1,000 UNIT TABLET PO SCH (08:52)
[2019-07-31] MEDS: LIDOCAINE (700MG/PATCH) PATCH. TP SCH (08:52)
[2019-07-31] MEDS: predniSONE 20 MG TABLET PO SCH (08:53)
[2019-07-31] MEDS: FERROUS SULFATE 325 MG TABLET. PO SCH (08:53)
[2019-07-31] MEDS: ASPIRIN ENTERIC COATED 81 MG TABLET.DR. PO SCH (08:53)
[2019-07-31] MEDS: CETIRIZINE HCL 10 MG TABLET. PO SCH (08:53)
[2019-07-31] MEDS: GABAPENTIN 100 MG CAPSULE. PO SCH ×2 (08:53→13:53)
[2019-07-31] MEDS: SACUBITRIL/VALSARTAN 49/51MG TABLET. PO SCH (08:53)
[2019-07-31] MEDS: TORSEMIDE 20 MG TABLET. PO SCH (08:53)
[2019-07-31] MEDS: ROFLUMILAST 500 MCG TABLET. PO SCH (08:53)
[2019-07-31] MEDS: DOXYCYCLINE HYCLATE 100 MG TABLET PO SCH (08:53)
[2019-07-31] MEDS: METOPROLOL SUCC 24HR ER 25 MG TAB.ER.24H. PO SCH (08:54)
[2019-07-31] MEDS ORDERED: ENOXAPARIN 40 MG/0.4 ML SYRINGE. SQ SCH (09:00)
--- NOTE | 2019-07-31 10:28 | PDOC ---
PULMONARY PROGRESS NOTES Subjective PT STILL SOA AT TIMES AND COUGHING Vitals Vital Signs Date Time Temp Pulse Resp B/P (MAP) Pulse Ox O2 Delivery O2 Flow Rate FiO2 07/31/19 08:54 70 90/51 07/31/19 08:00 Nasal Cannula 2.0 07/31/19 07:45 98 07/31/19 07:00 97.8 20 97.8 ROS: No Nausea, No Chest Pain, No Abdominal Pain General: Alert Lungs: Wheezing, Crackles, Other Cardiovascular: S1, S2 Abdomen: Soft, Non-tender Neuro Exam: Alert Extremities: No Edema Skin: Warm Labs Laboratory Tests Test 07/29/19 18:00 07/29/19 18:42 07/29/19 20:15 07/29/19 21:20 White Blood Count 8.7 x10^3/uL (4.0-11.0) Red Blood Count 4.10 x10^6/uL (3.50-5.40) Hemoglobin 13.0 g/dL (12.0-15.5) Hematocrit 39.2 % (36.0-47.0) Mean Corpuscular Volume 96 fL (79-100) Mean Corpuscular Hemoglobin 32 pg (25-35) Mean Corpuscular Hemoglobin Concent 33 g/dL (31-37) Red Cell Distribution Width 14.0 % (11.5-14.5) Platelet Count 249 x10^3/uL (140-400) Neutrophils (%) (Auto) 68 % (31-73) Lymphocytes (%) (Auto) 23 % (24-48) Monocytes (%) (Auto) 6 % (0-9) Eosinophils (%) (Auto) 3 % (0-3) Basophils (%) (Auto) 1 % (0-3) Neutrophils # (Auto) 5.9 x10^3/uL (1.8-7.7) Lymphocytes # (Auto) 2.0 x10^3/uL (1.0-4.8) Monocytes # (Auto) 0.5 x10^3/uL (0.0-1.1) Eosinophils # (Auto) 0.2 x10^3/uL (0.0-0.7) Basophils # (Auto) 0.1 x10^3/uL (0.0-0.2) Prothrombin Time 11.7 SEC (11.7-14.0) Prothromb Time International Ratio 0.9 (0.8-1.1) Activated Partial Thromboplast Time 29 SEC (24-38) Sodium Level 141 mmol/L (136-145) Potassium Level 4.6 mmol/L (3.5-5.1) Chloride Level 103 mmol/L (98-107) Carbon Dioxide Level 32 mmol/L (21-32) Anion Gap 6 (6-14) Blood Urea Nitrogen 15 mg/dL (7-20) Creatinine 1.5 mg/dL (0.6-1.0) Estimated GFR (Cockcroft-Gault) 34.9 BUN/Creatinine Ratio 10 (6-20) Glucose Level 95 mg/dL (70-99) Lactic Acid Level 2.1 mmol/L (0.4-2.0) 2.8 mmol/L (0.4-2.0) Calcium Level 9.0 mg/dL (8.5-10.1) Magnesium Level 2.2 mg/dL (1.8-2.4) Total Bilirubin 0.3 mg/dL (0.2-1.0) Aspartate Amino Transf (AST/SGOT) 13 U/L (15-37) Alanine Aminotransferase (ALT/SGPT) 15 U/L (14-59) Alkaline Phosphatase 79 U/L (46-116) Troponin I Quantitative < 0.017 ng/mL (0.000-0.055) < 0.017 ng/mL (0.000-0.055) OM-Rok-V-Type Natriuretic Peptide 329 pg/mL (0-124) Total Protein 7.7 g/dL (6.4-8.2) Albumin 3.3 g/dL (3.4-5.0) Albumin/Globulin Ratio 0.8 (1.0-1.7) O2 Saturation 99 % (92-99) Arterial Blood pH 7.52 (7.35-7.45) Arterial Blood pCO2 at Patient Temp 35 mmHg (35-46) Arterial Blood pO2 at Patient Temp 227 mmHg (65-108) Arterial Blood HCO3 28 mmol/L (21-28) Arterial Blood Base Excess 5 mmol/L (-3-3) Oxyhemoglobin 96.7 % Methemoglobin 0.4 % (0.0-1.9) Carbon Monoxide, Quantitative 1.7 % (0.0-1.9) FiO2 50 Creatine Kinase 31 U/L (26-192) Creatine Kinase MB (Mass) < 0.5 ng/mL (0.0-3.6) Creatine Kinase MB Relative Index % (0-4) Test 07/30/19 01:05 07/30/19 07:00 07/30/19 07:36 07/30/19 11:42 White Blood Count 8.2 x10^3/uL (4.0-11.0) Red Blood Count 3.87 x10^6/uL (3.50-5.40) Hemoglobin 12.4 g/dL (12.0-15.5) Hematocrit 36.9 % (36.0-47.0) Mean Corpuscular Volume 96 fL (79-100) Mean Corpuscular Hemoglobin 32 pg (25-35) Mean Corpuscular Hemoglobin Concent 34 g/dL (31-37) Red Cell Distribution Width 14.1 % (11.5-14.5) Platelet Count 190 x10^3/uL (140-400) Heparin Anti-Xa Act, Unfractionated 0.76 IU/mL (0.30-0.70) 0.70 IU/mL (0.30-0.70) Creatine Kinase 34 U/L (26-192) Creatine Kinase MB (Mass) < 0.5 ng/mL (0.0-3.6) Creatine Kinase MB Relative Index % (0-4) Troponin I Quantitative < 0.017 ng/mL (0.000-0.055) Glucose (Fingerstick) 152 mg/dL (70-99) 123 mg/dL (70-99) Test 07/30/19 16:37 07/30/19 20:41 07/31/19 02:50 07/31/19 07:37 Glucose (Fingerstick) 115 mg/dL (70-99) 212 mg/dL (70-99) 95 mg/dL (70-99) Sodium Level 141 mmol/L (136-145) Potassium Level 4.1 mmol/L (3.5-5.1) Chloride Level 101 mmol/L (98-107) Carbon Dioxide Level 33 mmol/L (21-32) Anion Gap 7 (6-14) Blood Urea Nitrogen 24 mg/dL (7-20) Creatinine 1.5 mg/dL (0.6-1.0) Estimated GFR (Cockcroft-Gault) 34.9 Glucose Level 237 mg/dL (70-99) Calcium Level 8.7 mg/dL (8.5-10.1) Laboratory Tests Test 07/30/19 11:42 07/30/19 16:37 07/30/19 20:41 07/31/19 02:50 Glucose (Fingerstick) 123 mg/dL (70-99) 115 mg/dL (70-99) 212 mg/dL (70-99) Sodium Level 141 mmol/L (136-145) Potassium Level 4.1 mmol/L (3.5-5.1) Chloride Level 101 mmol/L (98-107) Carbon Dioxide Level 33 mmol/L (21-32) Anion Gap 7 (6-14) Blood Urea Nitrogen 24 mg/dL (7-20) Creatinine 1.5 mg/dL (0.6-1.0) Estimated GFR (Cockcroft-Gault) 34.9 Glucose Level 237 mg/dL (70-99) Calcium Level 8.7 mg/dL (8.5-10.1) Test 07/31/19 07:37 Glucose (Fingerstick) 95 mg/dL (70-99) Medications Active Scripts Medications Dose Route/Sig Max Daily Dose Days Date Category Entresto 49 mg-51 mg Tablet (Sacubitril/Valsartan) 1 Each Tablet 49-51 Mg PO BID 07/30/19 Reported K-Tab ER (Potassium Chloride) 20 Meq Tablet.er 20 Meq PO DAILY 07/30/19 Reported Nexium Capsule (Esomeprazole Magnesium) 40 Mg Capsule.dr 40 Mg PO DAILYAC 07/29/19 Reported Montelukast Sodium Tablet (Montelukast Sodium) 10 Mg Tablet 10 Mg PO HS 07/29/19 Reported Magnesium (Magnesium Oxide) 400 Mg Capsule 200 Mg PO DAILY 07/29/19 Reported Levocetirizine Dihydrochloride 5 Mg Tablet 5 Mg PO DAILY 07/29/19 Reported Azelastine Hcl 137 Mcg/0.137 Ml [place].pump 2 [place] NS PRN BID PRN 30 07/29/19 Reported Amitriptyline Hcl 25 Mg Tablet 25 Mg PO QHS 07/29/19 Reported Tylenol (Acetaminophen) 325 Mg Tablet 650 Mg PO PRN Q4HRS PRN 07/29/19 Reported Fluticasone Propionate Nasal [place] (Fluticasone Propionate) 16 Gm [place].susp 2 [place] NS DAILY 30 11/01/18 Rx Duoneb 0.5-3(2.5) Mg/3 Ml (Albuterol/Ipratropium) 3 Ml Ampul.neb 3 Ml NEB RTQID 14 11/01/18 Rx Aspir 81 (Aspirin) 81 Mg Tablet.dr 1 Tab PO DAILY 01/03/18 Reported Metoprolol Succinate ( Xl ) (Metoprolol Succinate) 25 Mg Tab.er.24h 25 Mg PO DAILY 01/03/18 Reported Vitamin D3 (Cholecalciferol (Vitamin D3)) 1,000 Unit Tablet 1 Tab PO DAILY 01/02/18 Reported Torsemide 20 Mg Tablet 1 Tab PO DAILY 01/02/18 Reported Gabapentin (Gabapentin) 100 Mg Capsule 100 Mg PO TID 01/02/18 Reported Ferrous Sulfate 325 Mg Tablet 1 Tab PO DAILY 09/23/17 Reported Daliresp (Roflumilast) 500 Mcg Tablet 1 Tab PO DAILY 09/23/17 Reported Atorvastatin Calcium 20 Mg Tablet 20 Mg PO HS 09/23/17 Reported Requip (Ropinirole Hcl) 1 Mg Tablet 3 Tab PO QHS 09/23/17 Reported Proair Hfa Inhaler (Albuterol Sulfate) 8.5 Gm Hfa.aer.ad 1 Puff INH PRN Q6HRS PRN 09/23/17 Reported Lidocaine PATCH (Lidocaine) 1 Each Adh..patch 1 Each TP 09/23/17 Reported Levothyroxine Sodium 50 Mcg Tablet 1 Tab PO DAILY 09/23/17 Reported Impression . IMPRESSION: 1. Ouwbf-tf-qhmoyqv hypoxemic respiratory failure. 2. Acute exacerbation of chronic obstructive pulmonary disease. 3. Chronic systolic heart failure. 4. Nonischemic cardiomyopathy, status post biventricular ICD. 5. Hyperlipidemia. 6. Type 2 diabetes. 7. Tobacco dependence. 8. Chronic obstructive pulmonary disease. Plan . WILL CONTINUE SUPPORT D/W DR YEBOAH D/C SMOKING FOLLOW UP IN OFFICE FOLLOW CARD INPUT LETICIA FORTUNE MD Jul 31, 2019 10:28
[2019-07-31 11:00] VITALS: BP 98/57
--- NOTE | 2019-07-31 11:34 | PDOC ---
CARDIO Progress Notes Date and Time Date of Service 07/31/19 Time of Evaluation 1115 Subjective Subjective: No Chest Pain, No shortness of breath, No Palpitations Vitals Vitals Vital Signs Date Time Temp Pulse Resp B/P (MAP) Pulse Ox O2 Delivery O2 Flow Rate FiO2 07/31/19 08:54 70 90/51 07/31/19 08:00 Nasal Cannula 2.0 07/31/19 07:45 98 07/31/19 07:00 97.8 20 97.8 Weight Weight [ ] Input and Output Intake and Output Intake and Output 07/31/19 06:59 Intake Total 0 ml Output Total 575 ml Balance -575 ml Intake Oral 0 ml Output Urine Total 575 ml Laboratory Labs Laboratory Tests Test 07/30/19 11:42 07/30/19 16:37 07/30/19 20:41 07/31/19 02:50 Glucose (Fingerstick) 123 mg/dL (70-99) 115 mg/dL (70-99) 212 mg/dL (70-99) Sodium Level 141 mmol/L (136-145) Potassium Level 4.1 mmol/L (3.5-5.1) Chloride Level 101 mmol/L (98-107) Carbon Dioxide Level 33 mmol/L (21-32) Anion Gap 7 (6-14) Blood Urea Nitrogen 24 mg/dL (7-20) Creatinine 1.5 mg/dL (0.6-1.0) Estimated GFR (Cockcroft-Gault) 34.9 Glucose Level 237 mg/dL (70-99) Calcium Level 8.7 mg/dL (8.5-10.1) Test 07/31/19 07:37 Glucose (Fingerstick) 95 mg/dL (70-99) Microbiology Micro Microbiology 07/29/19 Blood Culture - Preliminary, Resulted NO GROWTH AFTER 1 DAY Physical Exam HEENT: Neck Supple W Full Motion Chest: Symmetric LUNGS: Other (expiratroy wheezes) Heart: S1S2, RRR, no thrills, no rubs, no gallops, no murmurs Abdomen: Soft N/T Extremities: No Edema Neurology: alert, oriented, follow commands Assessment Assessment 1. Acute respiratory failure secondary to acute COPD exacerbation. Doubt CHF. NT Pro BNP only midly elevated and CXR without any evidence of CHF. Continue treatment per primary team. 2. Chronic systolic heart failure: Most recent 2-D echo showed normalized left ventricle systolic function. Clinically well compensated. Continue current medical regimen. 3. 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 Recent device check showed normal function. 4. Hyperlipidemia: Continue statin therapy 5. Diabetes mellitus type 2: Treat per IM 6. Tobaccoism; discussed/encouraged cessation 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 APRN Jul 31, 2019 11:34
[2019-07-31] MEDS ORDERED: LACTOBACILLUS RHAMNOSUS GG 1 CAPSULE. PO SCH (12:00)
[2019-07-31] MEDS ORDERED: PRED20TA PO (14:24)
[2019-07-31] MEDS ORDERED: DOXY100T PO (14:24)
[2019-07-31] MEDS ORDERED: CEFU500T46 PO (14:24)
--- NOTE | 2019-07-31 14:27 | SNU/HH DC ---
DISCHARGE WITH HOME HEALTH DISCHARGE INFORMATION: Discharge Date: Jul 31, 2019 Final Diagnosis: Problems Medical Problems: (1) Acute electrocardiogram changes Status: Acute (2) Chest pain Status: Acute (3) COPD exacerbation Status: Acute (4) Hypoxia Status: Acute (5) Lactic acidosis Status: Acute Condition on Discharge: Stable CODE STATUS: Code Status: Full HOME HEALTH: Face to Face: I certify this patient is under my care and that I, or a nurse practitioner or physician's store assistant working with me, had a face to face encounter that meets the physician face to face encounter requirements with this patient on 07/31/19. Medical Complications: CHF, COPD Prison For: Assess Cardiopulm Status, Assess & Educate Safety, Medication Management RN For Eval/Treatment: Yes Pt Meets Homebound Status: Extreme weakness w/ amb., Fatigue w/ amb., Limited distance walking POST DISCHARGE ORDERS: Activity Instructions for Disc: Activity as tolerated Weight Bearing Status after Di: Non weight bearing DIET AFTER DISCHARGE: Cardiac Wound/Incision Care: Change dressing CHECKS AFTER DISCHARGE: Checks after discharge: Check blood press - daily, Check blood sugar, ac/hs, Weigh Yourself Daily TREATMENT/EQUIPMENT ORDERS: Adaptive Equipment Issued: None Discharge Respiratory Equipmen: Oxygen CERTIFICATION STATEMENT: Certification Statement: Certification Statement: Based on the above finding, I certify that this patient is confined to the home and needs intermittent chcf care, physical therapy and/or speech therapy, or continues to need occupational therapy.~ This patient is under my care, and I have initiated the establishment of the plan of care.~ This patient will be followed by myself or a community physician who will periodically review the plan of care. Home Meds Active Scripts Cefuroxime Axetil (CEFUROXIME) 500 Mg Tablet, 1 TAB PO BID for COPD for 5 Days, #10 TAB 0 Refills Prov:PHONG YEBOAH MD 07/31/19 Prednisone (PREDNISONE) 20 Mg Tablet, 40 MG PO DAILY for COPD exacerbation for 5 Days, #10 TAB Prov:PHONG YEBOAH MD 07/31/19 Doxycycline Hyclate (DOXYCYCLINE HYCLATE) 100 Mg Tablet, 100 MG PO BID for COPD exacerbation for 5 Days, #10 TAB Prov:PHONG YEBOAH MD 07/31/19 Fluticasone Propionate (FLUTICASONE PROPIONATE NASAL SPRAY) 16 Gm [place].susp, 2 SPRAY NS DAILY for CONGESTION for 30 Days, #30 SPRAY Prov:CAMILA MORELOS MD 11/01/18 Ipratropium/Albuterol Sulfate (DUONEB 0.5-3(2.5) MG/3 ML) 3 Ml Ampul.neb, 3 ML NEB RTQID for WHEEZING, COUGH for 14 Days, #56 EACH Prov:CAMILA MORELOS MD 11/01/18 Reported Medications Sacubitril/Valsartan (Entresto 49 mg-51 mg Tablet) 1 Each Tablet, 49-51 MG PO BID for bp 07/30/19 Potassium Chloride (K-Tab ER) 20 Meq Tablet.er, 20 MEQ PO DAILY for hypokalemia 07/30/19 Esomeprazole Magnesium (NEXIUM CAPSULE) 40 Mg Capsule.dr, 40 MG PO DAILYAC for GERD, #30 CAP 0 Refills 07/29/19 Montelukast Sodium (MONTELUKAST SODIUM TABLET ) 10 Mg Tablet, 10 MG PO HS for FOR ASTHMA, TAB 0 Refills 07/29/19 Magnesium Oxide (MAGNESIUM) 400 Mg Capsule, 200 MG PO DAILY for electrolyte, CAP 07/29/19 Levocetirizine Dihydrochloride (LEVOCETIRIZINE DIHYDROCHLORIDE) 5 Mg Tablet, 5 MG PO DAILY for allergies, TAB 07/29/19 Azelastine Hcl (AZELASTINE HCL) 137 Mcg/0.137 Ml [place].pump, 2 SPRAY NS PRN BID PRN for CONGESTION for 30 Days, #30 ML 0 Refills 07/29/19 Amitriptyline Hcl (AMITRIPTYLINE HCL) 25 Mg Tablet, 25 MG PO QHS for nerve pain, TAB 07/29/19 Acetaminophen (TYLENOL) 325 Mg Tablet, 650 MG PO PRN Q4HRS PRN for PAIN, TAB 07/29/19 Aspirin (ASPIR 81) 81 Mg Tablet.dr, 1 TAB PO DAILY, #30 TAB 5 Refills 01/03/18 Metoprolol Succinate (METOPROLOL SUCCINATE ( XL )) 25 Mg Tab.er.24h, 25 MG PO DAILY for FOR HYPERTENSION, #30 TAB 0 Refills 01/03/18 Cholecalciferol (Vitamin D3) (VITAMIN D3) 1,000 Unit Tablet, 1 TAB PO DAILY, #30 TAB 5 Refills 01/02/18 Torsemide (TORSEMIDE) 20 Mg Tablet, 1 TAB PO DAILY, #90 TAB 1 Refill 01/02/18 Gabapentin (GABAPENTIN ) 100 Mg Capsule, 100 MG PO TID, CAP 01/02/18 Ferrous Sulfate (FERROUS SULFATE) 325 Mg Tablet, 1 TAB PO DAILY, #30 TAB 3 Refills 09/23/17 Roflumilast (DALIRESP) 500 Mcg Tablet, 1 TAB PO DAILY, #90 TAB 3 Refills 09/23/17 Atorvastatin Calcium (ATORVASTATIN CALCIUM) 20 Mg Tablet, 20 MG PO HS for FOR CHOLESTEROL, #30 TAB 0 Refills 09/23/17 Ropinirole Hcl (REQUIP) 1 Mg Tablet, 3 TAB PO QHS, #30 TAB 2 Refills 09/23/17 Albuterol Sulfate (PROAIR HFA INHALER) 8.5 Gm Hfa.aer.ad, 1 PUFF INH PRN Q6HRS PRN for SHORTNESS OF BREATH, INHALER 0 Refills 09/23/17 Lidocaine (Lidocaine PATCH ) 1 Each Adh..patch, 1 EACH TP, PATCH 09/23/17 Levothyroxine Sodium (LEVOTHYROXINE SODIUM) 50 Mcg Tablet, 1 TAB PO DAILY, #30 TAB 5 Refills 09/23/17 PHONG YEBOAH MD Jul 31, 2019 14:27
--- NOTE | 2019-07-31 14:29 | PDOC3 ---
Discharge Summary Visit Information Date of Admission: Jul 29, 2019 Date of Discharge: Jul 31, 2019 Admitting Diagnosis: Chest pain Final Diagnosis Problems Medical Problems: (1) Acute electrocardiogram changes Status: Acute (2) Chest pain Status: Acute (3) COPD exacerbation Status: Acute (4) Hypoxia Status: Acute (5) Lactic acidosis Status: Acute Brief Hospital Course Allergies Allergies Coded Allergies Type Severity Reaction Last Updated Verified ibuprofen Allergy Severe Swelling 08/09/18 Yes naproxen Allergy Severe Shortness of Air 10/25/18 Yes piperacillin Allergy Severe Swelling 08/09/18 Yes tazobactam Allergy Severe Swelling 08/09/18 Yes Vital Signs Vital Signs Date Time Temp Pulse Resp B/P (MAP) Pulse Ox O2 Delivery O2 Flow Rate FiO2 07/31/19 11:43 95 Room Air 07/31/19 11:00 97.3 90 20 98/57 (71) 97.3 07/31/19 08:00 2.0 Lab Results Laboratory Tests Test 07/29/19 18:00 07/29/19 18:42 07/29/19 20:15 07/29/19 21:20 White Blood Count 8.7 x10^3/uL (4.0-11.0) Red Blood Count 4.10 x10^6/uL (3.50-5.40) Hemoglobin 13.0 g/dL (12.0-15.5) Hematocrit 39.2 % (36.0-47.0) Mean Corpuscular Volume 96 fL (79-100) Mean Corpuscular Hemoglobin 32 pg (25-35) Mean Corpuscular Hemoglobin Concent 33 g/dL (31-37) Red Cell Distribution Width 14.0 % (11.5-14.5) Platelet Count 249 x10^3/uL (140-400) Neutrophils (%) (Auto) 68 % (31-73) Lymphocytes (%) (Auto) 23 % (24-48) Monocytes (%) (Auto) 6 % (0-9) Eosinophils (%) (Auto) 3 % (0-3) Basophils (%) (Auto) 1 % (0-3) Neutrophils # (Auto) 5.9 x10^3/uL (1.8-7.7) Lymphocytes # (Auto) 2.0 x10^3/uL (1.0-4.8) Monocytes # (Auto) 0.5 x10^3/uL (0.0-1.1) Eosinophils # (Auto) 0.2 x10^3/uL (0.0-0.7) Basophils # (Auto) 0.1 x10^3/uL (0.0-0.2) Prothrombin Time 11.7 SEC (11.7-14.0) Prothromb Time International Ratio 0.9 (0.8-1.1) Activated Partial Thromboplast Time 29 SEC (24-38) Sodium Level 141 mmol/L (136-145) Potassium Level 4.6 mmol/L (3.5-5.1) Chloride Level 103 mmol/L (98-107) Carbon Dioxide Level 32 mmol/L (21-32) Anion Gap 6 (6-14) Blood Urea Nitrogen 15 mg/dL (7-20) Creatinine 1.5 mg/dL (0.6-1.0) Estimated GFR (Cockcroft-Gault) 34.9 BUN/Creatinine Ratio 10 (6-20) Glucose Level 95 mg/dL (70-99) Lactic Acid Level 2.1 mmol/L (0.4-2.0) 2.8 mmol/L (0.4-2.0) Calcium Level 9.0 mg/dL (8.5-10.1) Magnesium Level 2.2 mg/dL (1.8-2.4) Total Bilirubin 0.3 mg/dL (0.2-1.0) Aspartate Amino Transf (AST/SGOT) 13 U/L (15-37) Alanine Aminotransferase (ALT/SGPT) 15 U/L (14-59) Alkaline Phosphatase 79 U/L (46-116) Troponin I Quantitative < 0.017 ng/mL (0.000-0.055) < 0.017 ng/mL (0.000-0.055) DE-Fcw-K-Type Natriuretic Peptide 329 pg/mL (0-124) Total Protein 7.7 g/dL (6.4-8.2) Albumin 3.3 g/dL (3.4-5.0) Albumin/Globulin Ratio 0.8 (1.0-1.7) O2 Saturation 99 % (92-99) Arterial Blood pH 7.52 (7.35-7.45) Arterial Blood pCO2 at Patient Temp 35 mmHg (35-46) Arterial Blood pO2 at Patient Temp 227 mmHg (65-108) Arterial Blood HCO3 28 mmol/L (21-28) Arterial Blood Base Excess 5 mmol/L (-3-3) Oxyhemoglobin 96.7 % Methemoglobin 0.4 % (0.0-1.9) Carbon Monoxide, Quantitative 1.7 % (0.0-1.9) FiO2 50 Creatine Kinase 31 U/L (26-192) Creatine Kinase MB (Mass) < 0.5 ng/mL (0.0-3.6) Creatine Kinase MB Relative Index % (0-4) Test 07/30/19 01:05 07/30/19 07:00 07/30/19 07:36 07/30/19 11:42 White Blood Count 8.2 x10^3/uL (4.0-11.0) Red Blood Count 3.87 x10^6/uL (3.50-5.40) Hemoglobin 12.4 g/dL (12.0-15.5) Hematocrit 36.9 % (36.0-47.0) Mean Corpuscular Volume 96 fL (79-100) Mean Corpuscular Hemoglobin 32 pg (25-35) Mean Corpuscular Hemoglobin Concent 34 g/dL (31-37) Red Cell Distribution Width 14.1 % (11.5-14.5) Platelet Count 190 x10^3/uL (140-400) Heparin Anti-Xa Act, Unfractionated 0.76 IU/mL (0.30-0.70) 0.70 IU/mL (0.30-0.70) Creatine Kinase 34 U/L (26-192) Creatine Kinase MB (Mass) < 0.5 ng/mL (0.0-3.6) Creatine Kinase MB Relative Index % (0-4) Troponin I Quantitative < 0.017 ng/mL (0.000-0.055) Glucose (Fingerstick) 152 mg/dL (70-99) 123 mg/dL (70-99) Test 07/30/19 16:37 07/30/19 20:41 07/31/19 02:50 07/31/19 07:37 Glucose (Fingerstick) 115 mg/dL (70-99) 212 mg/dL (70-99) 95 mg/dL (70-99) Sodium Level 141 mmol/L (136-145) Potassium Level 4.1 mmol/L (3.5-5.1) Chloride Level 101 mmol/L (98-107) Carbon Dioxide Level 33 mmol/L (21-32) Anion Gap 7 (6-14) Blood Urea Nitrogen 24 mg/dL (7-20) Creatinine 1.5 mg/dL (0.6-1.0) Estimated GFR (Cockcroft-Gault) 34.9 Glucose Level 237 mg/dL (70-99) Calcium Level 8.7 mg/dL (8.5-10.1) Test 07/31/19 12:26 Glucose (Fingerstick) 145 mg/dL (70-99) Laboratory Tests Test 07/30/19 16:37 07/30/19 20:41 07/31/19 02:50 07/31/19 07:37 Glucose (Fingerstick) 115 mg/dL (70-99) 212 mg/dL (70-99) 95 mg/dL (70-99) Sodium Level 141 mmol/L (136-145) Potassium Level 4.1 mmol/L (3.5-5.1) Chloride Level 101 mmol/L (98-107) Carbon Dioxide Level 33 mmol/L (21-32) Anion Gap 7 (6-14) Blood Urea Nitrogen 24 mg/dL (7-20) Creatinine 1.5 mg/dL (0.6-1.0) Estimated GFR (Cockcroft-Gault) 34.9 Glucose Level 237 mg/dL (70-99) Calcium Level 8.7 mg/dL (8.5-10.1) Test 07/31/19 12:26 Glucose (Fingerstick) 145 mg/dL (70-99) Brief Hospital Course Ms Mathur is a 63-year-old who has a long history of tobacco use for at least 30 years, CHF, unknown EF, hypertension, COPD, unknown FEV1, chronic respiratory failure on 2l NCO2, osteoarthritis who was brought into the hospital with increasing shortness of breath with associated chest pain. She has had sinus pressure and headache for the past 8 days on the left side. She has been wheezing as well. She has a cough, which has been nonproductive. Chest x-ray unchanged from prior. No nausea, vomiting, no diarrhea. No focal weakness. No skin rash. No blurring of vision. Cr notably 1.5, up from 1.1 baseline. She c/o severe left sided headache and tooth pain, has had some nasal congestion with discharge. No body aches. She did not a fever of 101.1F on 07/28/19, no elevated temp since then. Improved with nebs, steroids, doxycycline. Seen by pulmonology and cardiology. no acute STEMI or CHF exacerbation. purely COPD A/P: Chest pain - sounds pleuritic, but with her h/o CHF needs cardiac evaluation, trend troponins. ASA, BB. Started on heparin GTT in ED. stopped by cardiology Shortness of breath - this seems like a COPD exacerbation incited by smoking, change of seasons, also with sinus infection. Started prednisone, doxy, nebs. Smoking cessation is simons Tobacco use for at least 30 years - counseled on cessation, failed chantix. 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 not in exacerbation. Consult cardiology. Lasix Hypertension - cont meds COPD, unknown FEV1 - will treat as acute exacerbation Left maxillary sinusitis - doxycycline and prednisone Chronic respiratory failure on 2l NCO2 - Will downtitrate as tolerated Osteoarthritis - cont meds Greater than 30 minute spent on d/c Discharge Information Condition at Discharge: Improved Follow Up: Weeks (1) Disposition/Orders: D/C to Home w/ HH Scheduled Amitriptyline Hcl (Amitriptyline Hcl) 25 Mg Tablet, 25 MG PO QHS for nerve pain, (Reported) Entered as Reported by: BURTON HORTON on 07/29/19 2106 Last Action: Continued on 07/30/19 115 by PHONG YEBOAH MD Aspirin (Aspir 81) 81 Mg Tablet.dr, 1 TAB PO DAILY, #30 Ref 5 (Reported) Entered as Reported by: MAIA BONE on 01/03/18 1332 Last Action: Continued on 07/30/19 115 by PHONG YEBOAH MD Atorvastatin Calcium (Atorvastatin Calcium) 20 Mg Tablet, 20 MG PO HS for FOR CHOLESTEROL, #30 Ref 0 (Reported) Entered as Reported by: SANDRO CRAFT on 09/23/17 1028 Last Action: Continued on 07/30/19 115 by PHONG YEBOAH MD Cefuroxime Axetil (Cefuroxime) 500 Mg Tablet, 1 TAB PO BID for COPD for 5 Days, #10 Ref 0 Prescribed by: PHONG YEBOAH MD on 07/31/19 1424 Cholecalciferol (Vitamin D3) (Vitamin D3) 1,000 Unit Tablet, 1 TAB PO DAILY, #30 Ref 5 (Reported) Entered as Reported by: Kenya Hodgson on 01/02/18 1012 Last Action: Continued on 07/30/191155 by PHONG YEBOAH MD Doxycycline Hyclate (Doxycycline Hyclate) 100 Mg Tablet, 100 MG PO BID for COPD exacerbation for 5 Days, #10 Prescribed by: PHONG YEBOAH MD on 07/31/19 1424 Esomeprazole Magnesium (Nexium Capsule) 40 Mg Capsule.dr, 40 MG PO DAILYAC for GERD, #30 Ref 0 (Reported) Entered as Reported by: BURTON HORTON on 07/29/19 210 Last Action: Converted on 07/30/191155 by PHONG YEBOAH MD Ferrous Sulfate (Ferrous Sulfate) 325 Mg Tablet, 1 TAB PO DAILY, #30 Ref 3 (Reported) Entered as Reported by: SANDRO CRAFT on 09/23/17 1028 Last Action: Continued on 07/30/191155 by PHONG YEBOAH MD Fluticasone Propionate (Fluticasone Propionate Nasal [place]) 16 Gm [place].susp, 2 SPRAY NS DAILY for CONGESTION for 30 Days, #30 Prescribed by: CAMILA MORELOS MD on 11/01/18 1256 Last Action: Continued on 07/30/191155 by PHONG YEBOAH MD Gabapentin (Gabapentin ) 100 Mg Capsule, 100 MG PO TID, (Reported) Entered as Reported by: Kenya Hodgson on 01/02/18 1012 Last Action: Continued on 07/30/191155 by PHONG YEBOAH MD Ipratropium/Albuterol Sulfate (Duoneb 0.5-3(2.5) Mg/3 Ml) 3 Ml Ampul.neb, 3 ML NEB RTQID for WHEEZING, COUGH for 14 Days, #56 Prescribed by: CAMILA MORELOS MD on 11/01/18 1256 Last Action: Continued on 07/30/19 115 by PHONG YEBOAH MD Levocetirizine Dihydrochloride (Levocetirizine Dihydrochloride) 5 Mg Tablet, 5 MG PO DAILY for allergies, (Reported) Entered as Reported by: BURTON HORTON on 07/29/192105 Last Action: Converted on 07/30/191155 by PHONG YEBOAH MD Levothyroxine Sodium (Levothyroxine Sodium) 50 Mcg Tablet, 1 TAB PO DAILY, #30 Ref 5 (Reported) Entered as Reported by: SANDRO CRAFT on 09/23/17 1028 Last Action: Continued on 07/30/191155 by PHONG YEBOAH MD Magnesium Oxide (Magnesium) 400 Mg Capsule, 200 MG PO DAILY for electrolyte, (Reported) Entered as Reported by: BURTON HORTON on 07/29/192105 Last Action: Converted on 07/30/191155 by PHONG YEBOAH MD Metoprolol Succinate (Metoprolol Succinate ( Xl )) 25 Mg Tab.er.24h, 25 MG PO DAILY for FOR HYPERTENSION, #30 Ref 0 (Reported) Entered as Reported by: MAIA BONE on 01/03/18 1331 Last Action: Continued on 07/30/191155 by PHONG YEBOAH MD Montelukast Sodium (Montelukast Sodium Tablet ) 10 Mg Tablet, 10 MG PO HS for FOR ASTHMA, Ref 0 (Reported) Entered as Reported by: BURTON HORTON on 07/29/192105 Last Action: Continued on 07/30/191155 by PHONG YEBOAH MD Potassium Chloride (K-Tab ER) 20 Meq Tablet.er, 20 MEQ PO DAILY for hypokalemia, (Reported) Entered as Reported by: CECILIA NOVAK on 07/30/191942 Last Action: New Order on 07/30/191942 by CECILIA NOVAK Prednisone (Prednisone) 20 Mg Tablet, 40 MG PO DAILY for COPD exacerbation for 5 Days, #10 Prescribed by: PHONG YEBOAH MD on 07/31/19 1424 Roflumilast (Daliresp) 500 Mcg Tablet, 1 TAB PO DAILY, #90 Ref 3 (Reported) Entered as Reported by: SANDRO CRAFT on 09/23/17 1028 Last Action: Continued on 07/30/191155 by PHONG YEBOAH MD Ropinirole Hcl (Requip) 1 Mg Tablet, 3 TAB PO QHS, #30 Ref 2 (Reported) Entered as Reported by: SANDRO CRAFT on 09/23/17 1028 Last Action: Continued on 07/30/191155 by PHONG YEBOAH MD Sacubitril/Valsartan (Entresto 49 mg-51 mg Tablet) 1 Each Tablet, 49-51 MG PO BID for bp, (Reported) Entered as Reported by: CECILIA NOVAK on 07/30/191942 Last Action: Continued on 07/30/192035 by PHONG YEBOAH MD Torsemide (Torsemide) 20 Mg Tablet, 1 TAB PO DAILY, #90 Ref 1 (Reported) Entered as Reported by: Kenya Hodgson on 01/02/18 1012 Last Action: Continued on 07/30/191155 by PHONG YEBOAH MD Scheduled PRN Acetaminophen (Tylenol) 325 Mg Tablet, 650 MG PO PRN Q4HRS PRN for PAIN, (Reported) Entered as Reported by: BURTON HORTON on 07/29/192105 Last Action: Continued on 07/30/191155 by PHONG YEBOAH MD Albuterol Sulfate (Proair Hfa Inhaler) 8.5 Gm Hfa.aer.ad, 1 PUFF INH PRN Q6HRS PRN for SHORTNESS OF BREATH, Ref 0 (Reported) Entered as Reported by: SANDRO CRAFT on 09/23/17 1028 Last Action: Continued on 07/30/191155 by PHONG YEBOAH MD Azelastine Hcl (Azelastine Hcl) 137 Mcg/0.137 Ml [place].pump, 2 SPRAY NS PRN BID PRN for CONGESTION for 30 Days, #30 Ref 0 (Reported) Entered as Reported by: BURTON HORTON on 07/29/192105 Last Action: Continued on 07/30/191155 by PHONG YEBOAH MD Miscellaneous Medications Lidocaine (Lidocaine PATCH ) 1 Each Adh..patch, 1 EACH TP, (Reported) Entered as Reported by: SANDRO CRAFT on 09/23/17 1028 Last Action: Continued on 07/30/19 1156 by MD EDILIA COYLE CHRISTOPHER S MD Jul 31, 2019 14:28
--- NOTE | 2019-07-31 14:58 | NUR ---
SS following up with discharge planning. Discharge orders received for home healthcare. SS met with pt to discuss discharge planning and home healthcare. Pt reported that she has had [facility], ; fax [phone], when she was last dismissed from the hospital. She reported having several others in the past as well. Pt reported having no preference of company. Referral and discharge orders phoned and faxed to [facility]. Pt's RN notified.
--- NOTE | 2019-07-31 15:40 | NUR ---
DISCHARGE INSTRUCTION GIVEN AND VERBALIZED UNDERSTANDING. PIV AND HEART MONITOR REMOVED. ESCORTED PATIENT INTO A PRIVATE VEHICLE.
== END 2019-07-31 15:40 | disposition home health service (06) | DRG 190 ==
LOC: ER 17:12 → 2 NORTH 19:31
PROVIDERS: ADMIT Family Medicine; ATTEND Family Medicine
PROC: 4B02XSZ Measurement of Cardiac Pacemaker, External Approach (ICD-10-PCS; principal; 2019-07-29)
DX: J44.1 Chronic obstructive pulmonary disease with (acute) exacerbation (principal); J96.21 Acute and chronic respiratory failure with hypoxia; I50.42 Chronic combined systolic (congestive) and diastolic (congestive) heart failure; I42.8 Other cardiomyopathies; E87.2 Acidosis; R07.81 Pleurodynia; I25.10 Atherosclerotic heart disease of native coronary artery without angina pectoris; I11.0 Hypertensive heart disease with heart failure; J32.9 Chronic sinusitis, unspecified; E11.9 Type 2 diabetes mellitus without complications; E78.00 Pure hypercholesterolemia, unspecified; E03.9 Hypothyroidism, unspecified; Z96.659 Presence of unspecified artificial knee joint; F17.210 Nicotine dependence, cigarettes, uncomplicated; M19.90 Unspecified osteoarthritis, unspecified site; E78.5 Hyperlipidemia, unspecified; J32.0 Chronic maxillary sinusitis; K08.89 Other specified disorders of teeth and supporting structures; Z71.6 Tobacco abuse counseling; Z90.49 Acquired absence of other specified parts of digestive tract; Z95.810 Presence of automatic (implantable) cardiac defibrillator; Z90.710 Acquired absence of both cervix and uterus; Z88.8 Allergy status to other drugs, medicaments and biological substances; Z82.49 Family history of ischemic heart disease and other diseases of the circulatory system
CPT/HCPCS: 36415; 36600; 71045; 80048; 80053; 82553; 82805; 82962; 83605; 83735; 83880; 84484; 85025; 85027; 85520; 85610; 85730; 87040; 90471; 90686; 93005; 94640; 94644; 94760; 96374; 96375; J1644; J1650; J1815; J1956; J2930; J3490; J7512; J7613; J7620; 99291-25; G0378

== ENCOUNTER → 2020-03-13 | Outpatient (CLI) | payer MEDICARE, OTHER ==
[2019-11-20 10:31] VITALS: BP 98/50
[~2020-03-13] MED LIST changes: +ACET325T9 PO; +AMIT25TA PO; +AZEL137S3 NS; +CEFU500T46 PO; +ESOM40CA PO; +FLUT1BLS3 IH; +HYDR-2761 PO; +LEVO5TAB2 PO; +MAGN400C PO; +MONT10TA49 PO; +OMEP20TA63 PO; +POTA20TA84 PO
== END | disposition home or self-care (01) ==
LOC: LAB 13:06
PROVIDERS: ATTEND Internal Medicine Cardiovascular Disease
DX: Z01.818 Encounter for other preprocedural examination (principal); Z11.59 Encounter for screening for other viral diseases; R06.09 Other forms of dyspnea
CPT/HCPCS: C9803-CS; U0003-CS

== ENCOUNTER 2020-03-17 06:55 | Outpatient (CLI) | payer MEDICARE, OTHER ==
[2020-03-17] VITALS (10 sets, daily range): BP systolic 84–101; BP diastolic 41–54
[~2020-03-17] VITALS: Ht 152.4 cm; Wt 72.6 kg
[~2020-03-17 06:55] MED LIST changes: -FLUT1BLS3 IH; -OMEP20TA63 PO
[2020-03-17 07:30] LABS: HEMATOCRIT 34.4 % (36.0-47.0); HEMOGLOBIN 11.7 g/dL (12.0-15.5); RED BLOOD COUNT 3.76 x10^6/uL (3.50-5.40); RED CELL DISTRIBUTION WIDTH 14.9 % (11.5-14.5); WHITE BLOOD COUNT 5.9 x10^3/uL (4.0-11.0)
[2020-03-17] MEDS ORDERED: LIDOCAINE 1% Multi-Dose 20 ML VIAL. ONE (07:34)
[2020-03-17] MEDS ORDERED: IODIXANOL 320 MG/ML 100 ML VIAL. ONE (07:34)
[2020-03-17 07:39] LABS: PROTHROMBIN TIME PATIENT 11.5 SEC (11.7-14.0)
[2020-03-17 07:42] LABS: CALCIUM 8.9 mg/dL (8.5-10.1); CREATININE 1.5 mg/dL (0.6-1.0); GFR 34.7; POTASSIUM 4.1 mmol/L (3.5-5.1)
[2020-03-17] MEDS ORDERED: FLUT1BLS3 IH (07:48)
[2020-03-17] MEDS ORDERED: OMEP20TA63 PO (07:48)
[2020-03-17] MEDS ORDERED: MIDAZOLAM HCL/PF 2 MG/2 ML VIAL. ONE (08:00)
[2020-03-17] MEDS ORDERED: fentaNYL PF VIAL 100 MCG/2 ML VIAL ONE (08:00)
[2020-03-17] MEDS ORDERED: MIDAZOLAM HCL/PF 2 MG/2 ML VIAL. IV ONE (08:15)
[2020-03-17] MEDS ORDERED: fentaNYL PF VIAL 100 MCG/2 ML VIAL IV ONE (08:15)
[2020-03-17] MEDS ORDERED: LIDOCAINE 1% Multi-Dose 20 ML VIAL. INJ ONE (08:15)
[2020-03-17] MEDS ORDERED: IODIXANOL 320 MG/ML 100 ML VIAL. IART ONE (08:15)
--- NOTE | 2020-03-17 10:04 | CARD ---
MR#: [id number] Date of Study: 03/17/2020 Ordering Physician: SAMM DRISCOLL, Referring Physician: SAMM DRISCOLL, Tech: RT Melly (R) APPROVED REPORT Technologist: RT Melly (R) Nurse: Farrah Ulrich RN Procedure(s) performed: Right and left heart catheterization, selective coronary angiography and left ventriculography FL TIME: 3.9 MIN DOSE: 33 GYCM2 CONTRAST: 78 ML MODERATE SEDATION: 33 MINS INDICATION The indication(s) include : Refractory dyspnea on exertion. [facility] Clinical Frailty Scale [facility] Clinical Frailty Scale: Mildly Frail Heart Failure Heart Failure: Yes If Yes, Newly Diagnosed: No If Yes, HF Type: Diastolic If Yes, NYHA Class: Class II PROCEDURE NARRATIVE After explaining the risks, benefits and alternative options, informed consent was obtained from remy ent. Patient was brought to the cardiac Gear Design Engineer and her right groin was prepped and draped in the u sual fashion. 20 cc of 2% lidocaine was infiltrated into the skin and subcutaneous tissues for local anesthesia. Arterial and venous accesses were obtained in the right common femoral artery and vein respectively and 6 and 5 [place] sheaths inserted. A 5 [place] catheter was then used to per form advanced under fluoroscopy guidance and intracardiac pressures and oxygen saturations were measu red. Subsequently, 6 [place] JL4 and 6 [place] JR4 catheters were used to perform selective angiograph y of the left and right coronary arteries. 6 [place] pigtail catheter was used to perform left ventri culography. Patient tolerated the procedure well. Hemostasis was achieved using Angio-Seal and manu al compression. There were no immediate complications FINDINGS A. RIGHT HEART CATHETERIZATION 1. Intracardiac pressures: Mean right atrial pressure 9 mmHg, right pressure 33/5 mmHg, pulmonary ar jyoti pressure 35/15 mmHg with mean PA pressure 25 mmHg, mean pulmonary capillary wedge pressure 12 mm Hg. Mild pulmonary hypertension. 2. Oxygen saturations: Right atrium 70.3%, pulmonary artery 71.9%, femoral arterial sheath 98.2%. N o evidence of intracardiac shunt. 3. Cardiac output by Mago method 3.96 L/min. B. LEFT HEART CATHETERIZATION: 1. Hemodynamics: Left ventricular end-diastolic pressure 27 mmHg consistent with mild acute on chron ic diastolic heart failure. No pullback gradient across the aortic valve. 2. Left ventriculography: Normal left ventricular systolic function with ejection fraction estimated at 55%. No significant mitral regurgitation seen. 3. Coronary angiography: a. The Left main coronary artery arose from the left sinus of Valsalva, gave rise to the left anti-d escending and left circumflex arteries and did not show any significant stenosis. b. The left anti-descending artery did not show any significant stenosis. c. The left circumflex artery did not show any significant stenosis. d. The right coronary artery was a dominant vessel arising from the right sinus of Valsalva that did not show any significant stenosis. Conclusion 1. No significant coronary disease. 2. Normal left ventricular systolic function with ejection fraction estimated at 55%. 3. Mild acute on chronic diastolic heart failure as evidenced by elevated LVEDP. 4. Mild pulmonary hypertension. 5. No evidence of intracardiac shunt. Recommendations Medical Therapy Signed by : Samm Driscoll, Electronically Approved : 03/17/2020 10:03:34
[2020-03-17] MEDS ORDERED: IV 1/2 NORMAL SALINE 1,000 ML IV SCH (10:05)
--- NOTE | 2020-03-17 10:05 | PDOC ---
MODERATE SEDATION ASSESSMENT RISKS/ALTERNATIVES Risks/Alternatives Risks and alternatives of this type of sedation and procedure discussed with: RISK/ALTERNATIVES: Patient H & P ON CHART H & P H & P on chart and reviewed for co-morbid conditions and appropriate labs. H&P ON CHART: Yes STATUS PREG STATUS ASSESSED: N/A MEDS/ALLERGIES REVIEWED Meds/Allergies Reviewed Medications and Allergies including time and route of recently administered narcotics and sedatives. MEDS/ALLERGIES REVIEWED: Yes ASA RATING ASA RATING: III AIRWAY ASSESSMENT Airway Assessment Airway patency, oral function limitations, presence of caps, crowns, dentures, partials, and ability to extend neck assessed. AIRWAY ASSESSMENT: Yes MALLAMPATI SCORE MALLAMPATI SCORE: II PRE-SEDATION ASSESSMENT PRE-SEDATION ASSESSMENT: Yes SAMM CRUZ MD Mar 17, 2020 10:05
[2020-03-17] MEDS ORDERED: NITROGLYCERIN SUBLINGUAL 0.4 MG BOTTLE OF 25. SL PRN (10:15)
[2020-03-17] MEDS ORDERED: 0.9 % SODIUM CHLORIDE 10 ML DISP.SYRIN. IV PRN (10:15)
[2020-03-17] MEDS ORDERED: FUROSEMIDE 20 MG/2 ML VIAL. IVP ONE (11:30)
[2020-03-17] MEDS ORDERED: FUROSEMIDE 40 MG/4 ML VIAL. ONE (11:45)
--- NOTE | 2020-03-17 12:44 | NUR ---
Discharge Note: [facility] COUNTS INCLUDE 234 BEDS AT THE [facility] Discharge instructions and discharge home medications reviewed with Patient and , a copy given. All questions have been answered and understanding verbalized. The following instructions and handouts were given: Groin site care and moderate sedation. Discontinued lines and drains: Left FA IV dc'd and tip intact. Patient discharged to home with via personal vehicle.
== END 2020-03-17 12:26 | disposition home or self-care (01) ==
LOC: CCL 06:55
PROVIDERS: ATTEND Internal Medicine Cardiovascular Disease
DX: R06.00 Dyspnea, unspecified (principal); I27.20 Pulmonary hypertension, unspecified; I11.0 Hypertensive heart disease with heart failure; I50.32 Chronic diastolic (congestive) heart failure; Z79.01 Long term (current) use of anticoagulants
CPT/HCPCS: 36415; 80048; 85027; 85610; 93460; 99152; 99153; C1760; C1769; C1773; C1892; J1644; J1940; J2250; J3010; J3490; Q9967; G0269; C1771

== ENCOUNTER → 2020-04-21 | Outpatient (CLI) | payer MEDICARE, OTHER ==
[2020-03-17 12:20] VITALS: BP 93/41
[~2020-04-21] MED LIST changes: +FLUT1BLS3 IH; +OMEP20TA63 PO
--- NOTE | 2020-04-21 11:01 | RAD ---
MR#: [id number] Date of Study: 04/21/2020 Ordering Physician: SAMM CRUZ, Referring Physician: SAMM CRUZ, Tech: Ronny Rangel MBA, RDMS, RVT, RDCS, RTR APPROVED REPORT Patient Location : OUT-PATIENT Indications Lower Extremity Edema : Bilateral Findings [place] scale images of the bilateral saphenofemoral junctions are grossly unremarkable. The bilateral greater and lesser saphenous veins do not reveal any evidence of reflux. No evidence of thrombus on limited images Critical Notification Critical Value: No <Conclusion> 1. No reflux noted. Signed by : Hair Garza, Electronically Approved : 04/21/2020 11:00:58
== END | disposition home or self-care (01) ==
LOC: US 08:32
PROVIDERS: ATTEND Internal Medicine Cardiovascular Disease
DX: R60.0 Localized edema (principal)
CPT/HCPCS: 93970

== ENCOUNTER 2020-05-01 12:40 | Inpatient (IN) | payer MEDICARE, OTHER ==
[~2020-05-01] VITALS: Ht 152.4 cm; Wt 69.9 kg
--- NOTE | 2020-05-01 13:28 | PHYS DOC ---
Past Medical History Past Medical History: CAD, CHF, COPD, Diabetes-Type II, High Cholesterol, Hypertension, Hypothyroid Past Surgical History: Cholecystectomy, , Hysterectomy, Knee Replaceme nt, Other Additional Past Surgical Histo: left shoulder Smoking Status: Former Smoker Alcohol Use: None Drug Use: None General Adult EDM: Chief Complaint: SHORTNESS OF BREATH HPI: HPI: Patient is a 65 year old FEMALE who presents with days of shortness of breath and loss of appetite with a nonproductive cough. She states she had diarrhea la st night. She states that she had called her doctor and they put her on doxycycline and prednisone. She states that she took the doxycycline for the first time yesterday and took a dose today. She states that she took prednisone yesterday but had not taken any today. She states she has been using her nebulizer at home and it helps a small bit but she is still short of breath. Patient states that she usually wears 2 L of oxygen at home. Patient is 100% on 2 L. She has a history of COPD, CHF, diabetes, CAD's high cholesterol, hypertension, hypothyroidism. Patient denies chest pain, dizziness, syncope, vision changes, numbness or tingling, abdominal pain, nausea, vomiting, headache. Patient denies any pain. She states she does have chest tightness. Review of Systems: Review of Systems: Constitutional: Denies fever or chills. [] Eyes: Denies change in visual acuity. [] HENT: Denies nasal congestion or sore throat. [] Respiratory: Dry cough or shortness of breath. [] Cardiovascular: Chest tightness. Denies chest pain. Bilateral lower extremity 1+ edema. [] GI: Denies abdominal pain, nausea, vomiting, bloody stools. + diarrhea, loss of appetite. [] : Denies dysuria. [] Musculoskeletal: Denies back pain or joint pain. [] Integument: Denies rash. [] Neurologic: Denies headache, focal weakness or sensory changes. [] Endocrine: Denies polyuria or polydipsia. [] Lymphatic: Denies swollen glands. [] Psychiatric: Denies depression or anxiety. [] Heart Score: HEART Score for Chest Pain: HEART Score for Chest Pain Response (Comments) Value History Slighlty/Non-Suspicious 0 ECG Normal 0 Age > 65 2 Risk Factors >3 Risk Factors or Hx CAD 2 Troponin < Normal Limit 0 Total 4 Risk Factors: Risk Factors: DM, Current or recent (<one month) smoker, HTN, HLP, family history of CAD, obesity. Risk Scores: Score 0 - 3: 2.5% MACE over next 6 weeks - Discharge Home Score 4 - 6: 20.3% MACE over next 6 weeks - Admit for Clinical Observation Score 7 - 10: 72.7% MACE over next 6 weeks - Early Invasive Strategies Allergies: Allergies: Allergies Coded Allergies Type Severity Reaction Last Updated Verified ibuprofen Allergy Severe Swelling 08/09/18 Yes naproxen Allergy Severe Shortness of Air 10/25/18 Yes piperacillin Allergy Severe Swelling 11/17/19 Yes tazobactam Allergy Severe Swelling 08/09/18 Yes Physical Exam: PE: Constitutional: Well developed, well nourished, no acute distress, non-toxic appearance. [] HENT: Normocephalic, atraumatic, bilateral external ears normal, oropharynx moist, no oral exudates, nose normal. [] Eyes: PERRLA, EOMI, conjunctiva normal, no discharge. [] Neck: Normal range of motion, no tenderness, supple, no stridor. [] Cardiovascular:Heart rate regular rhythm, no murmur [] Lungs & Thorax: Bilateral upper and lower breath sounds inspiratory and expiratory wheezing to auscultation [] Abdomen: Bowel sounds normal, soft, no tenderness, no masses, no pulsatile masses. [] Skin: Warm, dry, no erythema, no rash. [] Back: No tenderness, no CVA tenderness. [] Extremities: No tenderness, no cyanosis, no clubbing, ROM intact, bilateral lower 1+ edema. [] Neurologic: Alert and oriented X 3, normal motor function, normal sensory function, no focal deficits noted. [] Psychologic: Affect normal, judgement normal, mood normal. [] EKG: EK and read by Dr Langston as Sinus Rhythm and no STEMI[] Radiology/Procedures: Radiology/Procedures: [] Impression: [facility] [address] [place] [address] IMAGING REPORT Signed PATIENT: JAYCOB CRAWFORD ACCOUNT: [id number] : 1955 LOCATION: ER AGE: 65 SEX: F EXAM STATUS: REG ER ORD. PHYSICIAN: MARTHA MATIAS APRN REASON: SOA PROCEDURE: PORTABLE CHEST 1V Portable AP chest. HISTORY: Short of air AP view was taken of the chest. Heart is normal in size. Left pacemaker is unchanged. There is no effusion. There are no confluent infiltrates. IMPRESSION: 1. No acute infiltrates. Electronically signed by: Randy Amador MD (05/01/2020 1:42 PM) [id number] DICTATED and SIGNED BY: RANDY AMADOR MD DATE: 05/01/20 1342 Course & Med Decision Making: Course & Med Decision Making Pertinent Labs and Imaging studies reviewed. (See chart for details) COVID-19 CRITERIA: The patient was evaluated during the global COVID-19 pandemic, and that diagnosis was suspected/considered upon their initial presentation. Their evaluation, treatment and testing was consistent with current guidelines for patients who present with complaints or symptoms that may be related to COVID-19. HPI. Patient does have audible wheezing. She speaks in full complete sentences but does sound breathless. 1+ lower extremity edema. Lungs are inspiratory expiratory wheezing throughout all lobes. Skin pink warm and dry. Abdomen is soft and nontender. Patient is given a dose of Solu-Medrol in the ED. I have also ordered a breathing treatment. She states she does not know if she has been around anyone that has had COVID but has not been around anyone that is sick. Patient is going to be admitted to Dr. Pop for a COPD exacerbation. Patient is a PUI patient. Have started her on antibiotic. Patient did receive a breathing treatment and Solu-Medrol in the ED. [] Dragon Disclaimer: Dragmaciel Disclaimer: This electronic medical record was generated, in whole or in part, using a voice recognition dictation system. COVID-19 Patient Risks: Age 65 or older: Yes Sign of co-morbidity: Yes Exp to person + for COVID: No Exp to PUI: No Lower respiratory symptoms: Yes Fever: No Other: No PPE Use: Full PPE with N95 mask or PAPR: Yes Departure Departure Impression: Primary Impression: COPD exacerbation Disposition: ADMITTED INPATIENT Admitting Physician: ROYCE Condition: STABLE Referrals: ANGIE WILLINGHAM MD (PCP) Justicifation of Admission Dx: Justifications for Admission: Justification of Admission Dx: Yes Comments: copd exacerbation MARTHA MATIAS PROGRAMMER [employer] May 01, 2020 13:28
[2020-05-01] MEDS ORDERED: methylPREDNISolone SOD SUCC PF 125 MG/2 ML VIAL. IV ONE (13:30)
[2020-05-01] MEDS ORDERED: ALBUTEROL SULFATE 2.5 MG/3 ML NEBU. CONT NEB ONE (13:30)
[2020-05-01] MEDS ORDERED: fentaNYL PF VIAL 100 MCG/2 ML VIAL IVP ONE (13:45)
--- NOTE | 2020-05-01 13:45 | RAD ---
Portable AP chest. HISTORY: Short of air AP view was taken of the chest. Heart is normal in size. Left pacemaker is unchanged. There is no effusion. There are no confluent infiltrates. IMPRESSION: 1. No acute infiltrates. Electronically signed by: Randy Amador MD (05/01/2020 1:42 PM) [id number]
[2020-05-01 13:49] LABS: BASO % 0 % (0-3); EOS % 0 % (0-3); HEMATOCRIT 34.1 % (36.0-47.0); HEMOGLOBIN 11.3 g/dL (12.0-15.5); LYMPH % 10 % (24-48); MEAN CORPUSCULAR HEMOGLOBIN 31 pg (25-35); MEAN CORPUSCULAR HGB CONC 33 g/dL (31-37); MEAN CORPUSCULAR VOLUME 92 fL (79-100); MONO # 0.4 x10^3/uL (0.0-1.1); MONO % 4 % (0-9); NEUT # 8.8 x10^3/uL (1.8-7.7); NEUT % 86 % (31-73); PLATELET COUNT 273 x10^3/uL (140-400); RED BLOOD COUNT 3.69 x10^6/uL (3.50-5.40); RED CELL DISTRIBUTION WIDTH 15.1 % (11.5-14.5); WHITE BLOOD COUNT 10.3 x10^3/uL (4.0-11.0)
[2020-05-01 13:54] LABS: CALCIUM 9.1 mg/dL (8.5-10.1); CREATININE 1.4 mg/dL (0.6-1.0); GFR 37.6; POTASSIUM 4.3 mmol/L (3.5-5.1)
[2020-05-01 14:00] LABS: ALBUMIN 3.1 g/dL (3.4-5.0); ALBUMIN/GLOBULIN RATIO 0.8 (1.0-1.7); TOTAL BILIRUBIN 0.2 mg/dL (0.2-1.0); TOTAL PROTEIN 6.8 g/dL (6.4-8.2)
[2020-05-01 14:03] LABS: BASE EXCESS COOX 4 mmol/L (-3-3); HCO3 COOX 30 mmol/L (21-28); METHEMOGLOBIN 0.4 % (0.0-1.9); OXYHEMOGLOBIN 97.6 %; PCO2 COOX 50 mmHg (35-46); PO2 COOX 144 mmHg (65-108); SAT O2 COOX 98 % (92-99)
[2020-05-01] MEDS ORDERED: AZITHRMYCN 500MG IVPB FOR OMNI 250 ML IV ONE (14:15)
[2020-05-01] MEDS ORDERED: IV NORMAL SALINE 1000ML BAG 1,000 ML IV ONE (14:15)
[2020-05-01 14:20] LABS: % LYMPHS 15 % (24-48); % MONOS 1 % (0-10); % SEGS 84 % (35-66); PLATELET CLUMP PRESENT; PLT ESTIMATE ADEQUATE (ADEQUATE)
[2020-05-01] MEDS ORDERED: fentaNYL PF VIAL 100 MCG/2 ML VIAL IV PRN (14:45)
[2020-05-01] MEDS ORDERED: ONDANSETRON PF 4 MG/2 ML VIAL. IV PRN (14:45)
[2020-05-01 15:45] LABS: BILIRUBIN,URINE NEGATIVE (NEG); CLARITY,URINE CLEAR; COLOR,URINE YELLOW; NITRITE,URINE NEGATIVE (NEG); PROTEIN,URINE NEGATIVE (NEG-TRACE); UROBILINOGEN,URINE 0.2 mg/dL (0.2 mg/dL)
[2020-05-01 15:49] LABS: BACTERIA,URINE 0 /HPF (0-FEW); RBC,URINE 0 /HPF (0-2); SQUAMOUS EPITHELIAL CELL,UR OCC /LPF; WBC,URINE 0 /HPF (0-4)
[2020-05-01] MEDS ORDERED: ALLO100T PO (20:15)
[2020-05-01] MEDS ORDERED: ALBUTEROL SULFATE 2.5 MG/3 ML NEBU. INH PRN (20:45)
[2020-05-01] MEDS ORDERED: ACETAMINOPHEN 325 MG TABLET. PO PRN (20:45)
[2020-05-01] MEDS: SACUBITRIL/VALSARTAN 49/51MG TABLET. PO SCH (21:12)
[2020-05-01] MEDS: ATORVASTATIN CALCIUM 20 MG TABLET PO SCH (21:12)
[2020-05-01] MEDS: GABAPENTIN 100 MG CAPSULE. PO SCH (21:12)
[2020-05-01] MEDS: AMITRIPTYLINE HCL 25 MG TABLET. PO SCH (21:12)
[2020-05-01] MEDS: rOPINIRole 1 MG TABLET. PO SCH (21:12)
[2020-05-01] MEDS: MONTELUKAST SODIUM 10 MG TABLET. PO SCH (21:12)
[2020-05-01] MEDS: IPRATRPIUM/ALBUTEROL 0.5/2.5MG 3 ML NEBU. NEB SCH (22:00)
[2020-05-01 23:00] VITALS: BP 112/63
[2020-05-02] VITALS (7 sets, daily range): BP systolic 88–113; BP diastolic 25–58
--- NOTE | 2020-05-02 00:39 | HP ---
ADMIT DATE: 05/01/2020 CHIEF COMPLAINT: Shortness of breath. HISTORY OF PRESENT ILLNESS: The patient is a pleasant 65-year-old female, well-known to my service, who continues to smoke, although she states she just did quit smoking within the past week or so. Once again, she presents with shortness of breath and COPD exacerbation. She has got wheezing. Rates her symptoms at 7/10. She has associated anxiety. I discussed the case with ER physician. We are going to admit the patient and consult Pulmonary Medicine. PAST MEDICAL HISTORY: CAD, CHF, COPD, tobacco abuse, although she just recently quit, hyperlipidemia, hypertension, hypothyroidism, cholecystectomy, , hysterectomy, knee replacement, and shoulder surgery. ALLERGIES: None. FAMILY HISTORY: Diabetes. SOCIAL HISTORY: She quit smoking a few weeks ago. No drink or drugs. MEDICATIONS: Reviewed, please refer to the MRAD. REVIEW OF SYSTEMS: GENERAL: No history of weight change, weakness or fevers. SKIN: No bruising, hair changes or rashes. EYES: No blurred, double or loss of vision. NOSE AND THROAT: No history of nosebleeds, hoarseness or sore throat. HEART: No history of palpitations, chest pain or shortness of breath on exertion. LUNGS: She complains of shortness of breath and wheezing. GASTROINTESTINAL: Denies changes in appetite, nausea, vomiting, diarrhea or constipation. GENITOURINARY: No history of frequency, urgency, hesitancy or nocturia. NEUROLOGIC: Denies history of numbness, tingling, tremor or weakness. PSYCHIATRIC: No history of panic, anxiety or depression. ENDOCRINE: No history of heat or cold intolerance, polyuria or polydipsia. EXTREMITIES: Denies muscle weakness, joint pain, pain on walking or stiffness. PHYSICAL EXAMINATION: VITALS: Within normal limits and are stable. GENERAL: No apparent distress. Alert and oriented. HEENT: Normal cephalic atraumatic, external auditory canals are patent. EYES: Extraocular muscles are intact, pupils are equally round and reactive to light and accommodation. MUSCULOSKELETAL: Well-developed, well-nourished, good range of motion. ENDOCRINE: No thyromegaly was palpated. LYMPHATICS: No cervical chain or axillary nodes were noted. HEMATOPOIETIC: No bruising. NECK: Supple, no JVD, no thyromegaly was noted. LUNGS: She has diffuse wheezing. HEART: RRR, S1, S2 present. Peripheral pulses intact, no obvious murmurs were noted. ABDOMEN: Soft, nontender. Positive bowel sounds no organomegaly, normal bowel sounds. EXTREMITIES: Without any cyanosis, clubbing, or edema. Pedal pulses intact, Homans sign is negative. NEUROLOGIC: Normal speech, normal tone. A & O x3, moves all extremities, no obvious focal deficits. PSYCHIATRIC: Normal affect, normal mood. Stable. SKIN: No ulcerations or rashes, good skin turgor, no jaundice. VASCULAR: Good capillary refill, neurovascular bundle appears to be intact. ASSESSMENT AND PLAN: Respiratory failure, suspect chronic obstructive pulmonary disease exacerbation with probable concomitant pneumonia and possible COVID-19. The patient will be admitted. We will check her for COVID-19. IV antibiotics, breathing treatments, oxygen, steroids, consult Pulmonary. Home meds, deep venous thrombosis prophylaxis. Full code. JULIANA ERNST DO DR: MARTA/lisa JOB#: [id number] / [id number]
--- NOTE | 2020-05-02 05:00 | NUR ---
Spoke with Dr. Pop re cardiac catheterization technician. Patient has pacemaker/defibrillator. Apparently the defibrillator interferes with our cardiac monitoring system and we cannot get an accurate reading. Patient was hooked up to the [place] when admitted but could never get an accurate reading. Monitor would read asystole and would keep alarming. Patient stated that this happened last visit and that nurses were constantly in her room trying to resolve the problem. We also tried the regular telemetry box with the same results. Dr. Pop was informed and gave order to d/c telemetry.
[2020-05-02] MEDS: methylPREDNISolone SOD SUCC PF 40 MG/ML VIAL. IV SCH ×4 (05:05→23:53)
[2020-05-02] MEDS: LEVOTHYROXINE 50 MCG TABLET PO SCH (06:00)
[2020-05-02] MEDS: IPRATRPIUM/ALBUTEROL 0.5/2.5MG 3 ML NEBU. NEB SCH ×3 (06:00→19:55)
[2020-05-02] MEDS: BUDESONIDE 0.5 MG/2 ML NEBU. NEB SCH ×2 (08:00→19:55)
[2020-05-02] MEDS: ASPIRIN ENTERIC COATED 81 MG TABLET.DR. PO SCH (08:03)
[2020-05-02] MEDS: TORSEMIDE 20 MG TABLET. PO SCH (08:03)
[2020-05-02] MEDS: ROFLUMILAST 500 MCG TABLET. PO SCH (08:03)
[2020-05-02] MEDS: GABAPENTIN 100 MG CAPSULE. PO SCH ×3 (08:03→20:46)
[2020-05-02] MEDS: POTASSIUM CHLORIDE 20 MEQ TABLET.ER. PO SCH (08:03)
[2020-05-02] MEDS: FERROUS SULFATE 325 MG TABLET. PO SCH (08:04)
[2020-05-02] MEDS: PANTOPRAZOLE 40 MG TABLET.DR. PO SCH (08:04)
[2020-05-02] MEDS: CETIRIZINE HCL 10 MG TABLET. PO SCH (08:04)
[2020-05-02] MEDS: ALLOPURINOL 100 MG TABLET. PO SCH (08:04)
[2020-05-02] MEDS: CHOLECALCIFEROL (VITAMIN D3) 1,000 UNIT TABLET PO SCH (08:04)
[2020-05-02] MEDS: SACUBITRIL/VALSARTAN 49/51MG TABLET. PO SCH ×2 (08:23→23:59)
[2020-05-02] MEDS: METOPROLOL SUCC 24HR ER 25 MG TAB.ER.24H. PO SCH (08:24)
[2020-05-02] MEDS: AZITHROMYCIN 500 MG in IV NORMAL SALINE 250ML 250 ML IV SCH (10:49)
--- NOTE | 2020-05-02 11:45 | PDOC ---
[facility] [facility] PROGRESS NOTE Chief Complaint Chief Complaint Respiratory failure, suspect chronic obstructive pulmonary disease exacerbation Probable concomitant pneumonia COVID-19 results pending COPD CAD CHF Diabetes-Type II High Cholesterol Hypertension Hypothyroid History of Present Illness History of Present Illness 05/02/20 Patient seen and examined in COVID unit Patient is in moderate distress with audible wheezing Discussed with RN Chart reviewed Vitals/I&O Vitals/I&O: Vital Signs Date Time Temp Pulse Resp B/P (MAP) Pulse Ox O2 Delivery O2 Flow Rate FiO2 05/02/20 11:00 97.1 79 18 90/47 (61) 97 Nasal Cannula 2.0 97.1 I & O 05/01/20 05/01/20 05/02/20 15:00 23:00 07:00 Intake Total 1490 ml 700 ml Balance 1490 ml 700 ml Physical Exam General: Alert, Cooperative, moderate distress Heart: Regular rate, Normal S1 Lungs: Wheezing (audible wheezing in all lung connell ), Other Abdomen: Soft, No tenderness Extremities: No clubbing, No cyanosis Skin: No rashes, No significant lesion Labs Labs: Laboratory Tests Test 05/01/20 13:15 05/01/20 13:55 05/01/20 15:30 White Blood Count 10.3 x10^3/uL (4.0-11.0) Red Blood Count 3.69 x10^6/uL (3.50-5.40) Hemoglobin 11.3 g/dL (12.0-15.5) Hematocrit 34.1 % (36.0-47.0) Mean Corpuscular Volume 92 fL (79-100) Mean Corpuscular Hemoglobin 31 pg (25-35) Mean Corpuscular Hemoglobin Concent 33 g/dL (31-37) Red Cell Distribution Width 15.1 % (11.5-14.5) Platelet Count 273 x10^3/uL (140-400) Neutrophils (%) (Auto) 86 % (31-73) Lymphocytes (%) (Auto) 10 % (24-48) Monocytes (%) (Auto) 4 % (0-9) Eosinophils (%) (Auto) 0 % (0-3) Basophils (%) (Auto) 0 % (0-3) Neutrophils # (Auto) 8.8 x10^3/uL (1.8-7.7) Lymphocytes # (Auto) 1.0 x10^3/uL (1.0-4.8) Monocytes # (Auto) 0.4 x10^3/uL (0.0-1.1) Eosinophils # (Auto) 0.0 x10^3/uL (0.0-0.7) Basophils # (Auto) 0.0 x10^3/uL (0.0-0.2) Segmented Neutrophils % 84 % (35-66) Lymphocytes % 15 % (24-48) Monocytes % 1 % (0-10) Platelet Estimate Adequate (ADEQUATE) Platelet Clumps, EDTA Present Sodium Level 138 mmol/L (136-145) Potassium Level 4.3 mmol/L (3.5-5.1) Chloride Level 101 mmol/L (98-107) Carbon Dioxide Level 33 mmol/L (21-32) Anion Gap 4 (6-14) Blood Urea Nitrogen 21 mg/dL (7-20) Creatinine 1.4 mg/dL (0.6-1.0) Estimated GFR (Cockcroft-Gault) 37.6 BUN/Creatinine Ratio 15 (6-20) Glucose Level 98 mg/dL (70-99) Calcium Level 9.1 mg/dL (8.5-10.1) Total Bilirubin 0.2 mg/dL (0.2-1.0) Aspartate Amino Transf (AST/SGOT) 28 U/L (15-37) Alanine Aminotransferase (ALT/SGPT) 27 U/L (14-59) Alkaline Phosphatase 89 U/L (46-116) Troponin I Quantitative < 0.017 ng/mL (0.000-0.055) NJ-Pwc-G-Type Natriuretic Peptide 1088 pg/mL (0-124) Total Protein 6.8 g/dL (6.4-8.2) Albumin 3.1 g/dL (3.4-5.0) Albumin/Globulin Ratio 0.8 (1.0-1.7) O2 Saturation 98 % (92-99) Arterial Blood pH 7.40 (7.35-7.45) Arterial Blood pCO2 at Patient Temp 50 mmHg (35-46) Arterial Blood pO2 at Patient Temp 144 mmHg (65-108) Arterial Blood HCO3 30 mmol/L (21-28) Arterial Blood Base Excess 4 mmol/L (-3-3) Oxyhemoglobin 97.6 % Methemoglobin 0.4 % (0.0-1.9) Carbon Monoxide, Quantitative 0.3 % (0.0-1.9) FiO2 28% Urine Collection Type Void Urine Color Yellow Urine Clarity Clear Urine pH 6.0 (<5.0-8.0) Urine Specific [place] <=1.005 (1.000-1.030) Urine Protein Negative mg/dL (NEG-TRACE) Urine Glucose (UA) Negative mg/dL (NEG) Urine Ketones (Stick) Negative mg/dL (NEG) Urine Blood Negative (NEG) Urine Nitrite Negative (NEG) Urine Bilirubin Negative (NEG) Urine Urobilinogen Dipstick 0.2 mg/dL (0.2 mg/dL) Urine Leukocyte Esterase Negative (NEG) Urine RBC 0 /HPF (0-2) Urine WBC 0 /HPF (0-4) Urine Squamous Epithelial Cells Occ /LPF Urine Bacteria 0 /HPF (0-FEW) Assessment and Plan Assessmemt and Plan Problems Medical Problems: (1) COPD exacerbation Status: Acute ASSESSMENT Respiratory failure, suspect chronic obstructive pulmonary disease exacerbation Probable concomitant pneumonia COVID-19 results pending COPD CAD CHF Diabetes-Type II High Cholesterol Hypertension Hypothyroid PLAN COVID-19 results pending Respiratory isolation IV doxycycline and azithromycin Methylprednisone breathing treatments Oxygen Monitor oxygen Awaiting pulmonary consult Home meds DVT prophylaxis Full code Appreciate subspecialty input Comment Review of Relevant I have reviewed the following items jon (where applicable) has been applied. Medications: Current Medications Medications (Trade) Dose Ordered Sig/Keshav Route PRN Reason Start Time Stop Time Status Last Admin Dose Admin Methylprednisolone Sodium Succinate (SOLU-Medrol 125MG VIAL) 125 mg 1X ONCE IV 05/01/20 13:30 05/01/20 13:31 DC 05/01/20 14:10 Albuterol Sulfate (Ventolin Neb Soln) 10 mg 1X ONCE CONT NEB 05/01/20 13:30 05/01/20 13:31 DC 05/01/20 13:47 Fentanyl Citrate (Fentanyl 2ml Vial) 50 mcg 1X ONCE IVP 05/01/20 13:45 05/01/20 13:51 DC 05/01/20 14:10 Sodium Chloride 1,000 ml @ 1,000 mls/hr 1X ONCE IV 05/01/20 14:15 05/01/20 15:14 DC 05/01/20 14:12 Azithromycin 250 ml @ 250 mls/hr 1X ONCE IV 05/01/20 14:15 05/01/20 15:14 DC 05/01/20 14:26 Fentanyl Citrate (Fentanyl 2ml Vial) 50 mcg PRN Q1HR PRN IV PAIN 05/01/20 14:45 05/02/20 14:44 05/01/20 16:12 Allopurinol (Zyloprim) 100 mg DAILY PO 05/02/20 09:00 05/02/20 08:04 Amitriptyline HCl (Elavil) 25 mg QHS PO 05/01/20 21:00 05/01/20 21:12 Aspirin (Ecotrin) 81 mg DAILY PO 05/02/20 09:00 05/02/20 08:03 Atorvastatin Calcium (Lipitor) 20 mg HS PO 05/01/20 21:00 05/01/20 21:12 Vitamin D (Vitamin D3) 1,000 unit DAILY PO 05/02/20 09:00 05/02/20 08:04 Ferrous Sulfate (Feosol) 325 mg DAILY PO 05/02/20 09:00 05/02/20 08:04 Gabapentin (Neurontin) 100 mg TID PO 05/01/20 21:00 05/02/20 08:03 Levothyroxine Sodium (Synthroid) 50 mcg DAILY06 PO 05/02/20 06:00 05/02/20 06:00 Montelukast Sodium (Singulair) 10 mg HS PO 05/01/20 21:00 05/01/20 21:12 Roflumilast (Daliresp) 500 mcg DAILY PO 05/02/20 09:00 05/02/20 08:03 Ropinirole HCl (Requip) 3 mg QHS PO 05/01/20 21:00 05/01/20 21:12 Sacubitril/ Valsartan (Entresto 49 Mg-51 Mg) 1 tab BID PO 05/01/20 21:00 05/01/20 21:12 Torsemide (Demadex) 20 mg DAILY PO 05/02/20 09:00 05/02/20 08:03 Cetirizine HCl (ZyrTEC) 10 mg DAILY PO 05/02/20 09:00 05/02/20 08:04 Pantoprazole Sodium (Protonix) 40 mg DAILYAC PO 05/02/20 07:30 05/02/20 08:04 Potassium Chloride (Klor-Con) 20 meq DAILYWBKFT PO 05/02/20 08:00 05/02/20 08:03 Methylprednisolone Sodium Succinate (SOLU-Medrol 40MG VIAL) 60 mg Q6HRS IV 05/02/20 05:00 05/02/20 05:05 Azithromycin 500 mg/Sodium Chloride 250 ml @ 250 mls/hr Q24H IV 05/02/20 10:00 05/02/20 10:49 Justicifation of Admission Dx: Justifications for Admission: Justification of Admission Dx: Yes JULIANA ERNST III DO May 02, 2020 11:45
--- NOTE | 2020-05-02 12:25 | PDOC ---
Provider Note Provider Note FULL NOTE DICTATED AECOPD Justicifation of Admission Dx: Justifications for Admission: Justification of Admission Dx: Yes IMELDA EASTMAN MD May 02, 2020 12:25
--- NOTE | 2020-05-02 12:38 | CONS ---
DATE OF CONSULTATION: PULMONARY CONSULTATION ATTENDING PHYSICIAN: Cherry Pop DO REASON FOR CONSULTATION: Dyspnea. HISTORY OF PRESENT ILLNESS: The patient is 65-year-old with long history of tobacco use for at least 30 years, she quit a year ago. She was brought into the hospital with complaint of shortness of breath. She has some cough. No fever, no chills, no chest pain, no headaches. No nausea, vomiting or diarrhea. She was audibly wheezing. She was seen in the Emergency Room. Chest x-ray did not reveal any definite consolidation. The patient is currently on oxygen at 2 liters. PAST MEDICAL HISTORY: Significant for COPD, history of CHF, history of tobacco abuse for a long time, history of hyperlipidemia, hypertension, hypothyroidism. PAST SURGICAL HISTORY: Cholecystectomy, , knee replacement and shoulder surgery. FAMILY HISTORY: Diabetes. SOCIAL HISTORY: Quit tobacco recently, but smoked for 30+ years. REVIEW OF SYSTEMS: Twelve-point system obtained. Pertinent positives discussed in my history of present illness, otherwise noncontributory. All systems that were negative were reviewed as well. ALLERGIES: IBUPROFEN, NAPROXEN, PIPERACILLIN AND TAZOBACTAM. MEDICATIONS: Reviewed as listed in the MRAD. PHYSICAL EXAMINATION: VITAL SIGNS: Reviewed, pulse oximetry 97% on 2 liters, blood pressure on the low side. NECK: Supple. LUNGS: With bilateral expiratory wheezes. CARDIOVASCULAR: With a regular rate. ABDOMEN: Soft. EXTREMITIES: With trace pitting edema. LABORATORY DATA: Reviewed. White cell count 10.3, hemoglobin 11.3, platelets are 273. BUN 21, creatinine 1.4. ABGs with a pH of 7.40, pCO2 of 50, pO2 of 144, bicarbonate 30 on 28% FIO2. IMPRESSION: 1. Dyspnea secondary to acute exacerbation of chronic obstructive pulmonary disease with audible wheezing. 2. No signs of pneumonia. 3. Chronic compensated hypercapnia. RECOMMENDATIONS: 1. The patient is audibly wheezing. I have called Pharmacy and we will add MDI since her COVID test is still pending and nebulizer are being withhold. 2. Continue IV Solu-Medrol. 3. If bronchospasm does not resolve with MDI, then we have to hold metoprolol. 4. Empiric antibiotics for now. 5. Once COVID test is negative, we will discontinue MDI and restart her on DuoNebs. We will add Pulmicort nebulizer as well. 6. Discussed with RN. We will follow along with you. IMELDA EASTMAN MD DR: MARTÍN/lisa JOB#: [id number] / [id number]
[2020-05-02] MEDS: IPRATROPIUM/ALBUTEROL 20/100mcg/INH INHALER. INH SCH ×2 (13:30→17:39)
--- NOTE | 2020-05-02 17:01 | NUR ---
SW following. Reviewed chart and spoke with RN. Pt from home. Pt COIVD negative. Pt on 2l 02. Pt on IV Zithromax, and IV Solu-Medrol. SW to follow.
[2020-05-02] MEDS: AMITRIPTYLINE HCL 25 MG TABLET. PO SCH (20:45)
[2020-05-02] MEDS: MONTELUKAST SODIUM 10 MG TABLET. PO SCH (20:45)
[2020-05-02] MEDS: rOPINIRole 1 MG TABLET. PO SCH (20:45)
[2020-05-02] MEDS: ATORVASTATIN CALCIUM 20 MG TABLET PO SCH (20:46)
[2020-05-03] MEDS: IPRATRPIUM/ALBUTEROL 0.5/2.5MG 3 ML NEBU. NEB SCH ×7 (00:13→23:23)
[2020-05-03 03:00] VITALS: BP 86/37
[2020-05-03] MEDS: LEVOTHYROXINE 50 MCG TABLET PO SCH (05:28)
[2020-05-03] MEDS: methylPREDNISolone SOD SUCC PF 40 MG/ML VIAL. IV SCH ×3 (05:28→18:00)
[2020-05-03] MEDS: PANTOPRAZOLE 40 MG TABLET.DR. PO SCH (05:28)
[2020-05-03 06:26] VITALS: BP 101/47
[2020-05-03] MEDS: BUDESONIDE 0.5 MG/2 ML NEBU. NEB SCH ×2 (07:32→20:32)
[2020-05-03] MEDS: GABAPENTIN 100 MG CAPSULE. PO SCH ×3 (08:43→20:26)
[2020-05-03] MEDS: CHOLECALCIFEROL (VITAMIN D3) 1,000 UNIT TABLET PO SCH (08:43)
[2020-05-03] MEDS: ROFLUMILAST 500 MCG TABLET. PO SCH (08:43)
[2020-05-03] MEDS: ALLOPURINOL 100 MG TABLET. PO SCH (08:43)
[2020-05-03] MEDS: TORSEMIDE 20 MG TABLET. PO SCH (08:43)
[2020-05-03] MEDS: ASPIRIN ENTERIC COATED 81 MG TABLET.DR. PO SCH (08:43)
[2020-05-03] MEDS: POTASSIUM CHLORIDE 20 MEQ TABLET.ER. PO SCH (08:43)
[2020-05-03] MEDS: METOPROLOL SUCC 24HR ER 25 MG TAB.ER.24H. PO SCH (08:44)
[2020-05-03] MEDS: CETIRIZINE HCL 10 MG TABLET. PO SCH (08:44)
[2020-05-03] MEDS: FERROUS SULFATE 325 MG TABLET. PO SCH (08:44)
[2020-05-03] MEDS: SACUBITRIL/VALSARTAN 49/51MG TABLET. PO SCH ×2 (08:44→20:26)
[2020-05-03 11:00] VITALS: BP 94/50
--- NOTE | 2020-05-03 11:19 | PDOC ---
PULMONARY PROGRESS NOTES Subjective n 02 still has sob, cough, wheezing has post nasal drip Vitals Vital Signs Date Time Temp Pulse Resp B/P (MAP) Pulse Ox O2 Delivery O2 Flow Rate FiO2 05/03/20 08:44 91 101/47 05/03/20 07:35 99 Nasal Cannula 2.0 05/03/20 03:00 98.0 20 98.0 ROS: No Nausea General: Alert, No acute distress HEENT: Other (nc at perrl ) Lungs: Wheezing (audible wheezing in all lung connell ), Other Cardiovascular: S1, S2 Abdomen: Soft, Non-tender Neuro Exam: Alert Extremities: No Edema Skin: Warm Labs Laboratory Tests Test 05/01/20 13:15 05/01/20 13:20 05/01/20 13:55 05/01/20 15:30 White Blood Count 10.3 x10^3/uL (4.0-11.0) Red Blood Count 3.69 x10^6/uL (3.50-5.40) Hemoglobin 11.3 g/dL (12.0-15.5) Hematocrit 34.1 % (36.0-47.0) Mean Corpuscular Volume 92 fL (79-100) Mean Corpuscular Hemoglobin 31 pg (25-35) Mean Corpuscular Hemoglobin Concent 33 g/dL (31-37) Red Cell Distribution Width 15.1 % (11.5-14.5) Platelet Count 273 x10^3/uL (140-400) Neutrophils (%) (Auto) 86 % (31-73) Lymphocytes (%) (Auto) 10 % (24-48) Monocytes (%) (Auto) 4 % (0-9) Eosinophils (%) (Auto) 0 % (0-3) Basophils (%) (Auto) 0 % (0-3) Neutrophils # (Auto) 8.8 x10^3/uL (1.8-7.7) Lymphocytes # (Auto) 1.0 x10^3/uL (1.0-4.8) Monocytes # (Auto) 0.4 x10^3/uL (0.0-1.1) Eosinophils # (Auto) 0.0 x10^3/uL (0.0-0.7) Basophils # (Auto) 0.0 x10^3/uL (0.0-0.2) Segmented Neutrophils % 84 % (35-66) Lymphocytes % 15 % (24-48) Monocytes % 1 % (0-10) Platelet Estimate Adequate (ADEQUATE) Platelet Clumps, EDTA Present Sodium Level 138 mmol/L (136-145) Potassium Level 4.3 mmol/L (3.5-5.1) Chloride Level 101 mmol/L (98-107) Carbon Dioxide Level 33 mmol/L (21-32) Anion Gap 4 (6-14) Blood Urea Nitrogen 21 mg/dL (7-20) Creatinine 1.4 mg/dL (0.6-1.0) Estimated GFR (Cockcroft-Gault) 37.6 BUN/Creatinine Ratio 15 (6-20) Glucose Level 98 mg/dL (70-99) Calcium Level 9.1 mg/dL (8.5-10.1) Total Bilirubin 0.2 mg/dL (0.2-1.0) Aspartate Amino Transf (AST/SGOT) 28 U/L (15-37) Alanine Aminotransferase (ALT/SGPT) 27 U/L (14-59) Alkaline Phosphatase 89 U/L (46-116) Troponin I Quantitative < 0.017 ng/mL (0.000-0.055) LD-Aqx-Y-Type Natriuretic Peptide 1088 pg/mL (0-124) Total Protein 6.8 g/dL (6.4-8.2) Albumin 3.1 g/dL (3.4-5.0) Albumin/Globulin Ratio 0.8 (1.0-1.7) Coronavirus (PCR) Not detected (Not Detected) O2 Saturation 98 % (92-99) Arterial Blood pH 7.40 (7.35-7.45) Arterial Blood pCO2 at Patient Temp 50 mmHg (35-46) Arterial Blood pO2 at Patient Temp 144 mmHg (65-108) Arterial Blood HCO3 30 mmol/L (21-28) Arterial Blood Base Excess 4 mmol/L (-3-3) Oxyhemoglobin 97.6 % Methemoglobin 0.4 % (0.0-1.9) Carbon Monoxide, Quantitative 0.3 % (0.0-1.9) FiO2 28% Urine Collection Type Void Urine Color Yellow Urine Clarity Clear Urine pH 6.0 (<5.0-8.0) Urine Specific [place] <=1.005 (1.000-1.030) Urine Protein Negative mg/dL (NEG-TRACE) Urine Glucose (UA) Negative mg/dL (NEG) Urine Ketones (Stick) Negative mg/dL (NEG) Urine Blood Negative (NEG) Urine Nitrite Negative (NEG) Urine Bilirubin Negative (NEG) Urine Urobilinogen Dipstick 0.2 mg/dL (0.2 mg/dL) Urine Leukocyte Esterase Negative (NEG) Urine RBC 0 /HPF (0-2) Urine WBC 0 /HPF (0-4) Urine Squamous Epithelial Cells Occ /LPF Urine Bacteria 0 /HPF (0-FEW) Test 05/02/20 20:40 05/03/20 07:35 Glucose (Fingerstick) 206 mg/dL (70-99) 170 mg/dL (70-99) Laboratory Tests Test 05/02/20 20:40 05/03/20 07:35 Glucose (Fingerstick) 206 mg/dL (70-99) 170 mg/dL (70-99) Medications Active Scripts Medications Dose Route/Sig Max Daily Dose Days Date Category Allopurinol 100 Mg Tablet 1 Tab PO DAILY 05/01/20 Reported Trelegy Ellipta 100-62.5-25 (Fluticasone/Umeclidin/Vilanter) 1 Each Blst.w.dev 1 Each IH DAILY 03/17/20 Reported Prilosec Otc (Omeprazole Magnesium) 20 Mg Tablet.dr 40 Mg PO DAILY 03/17/20 Reported Duoneb 0.5-3(2.5) Mg/3 Ml (Albuterol/Ipratropium) 3 Ml Ampul.neb 3 Ml NEB Q4HRS 14 10/22/19 Rx Hydrocodone-Apap 5-325 (Hydrocodone Bit/Acetaminophen) 1 Tab Tablet 1 Tab PO PRN Q4HRS PRN 10/20/19 Rx Entresto 49 mg-51 mg Tablet (Sacubitril/Valsartan) 1 Each Tablet 49-51 Mg PO BID 07/30/19 Reported K-Tab ER (Potassium Chloride) 20 Meq Tablet.er 20 Meq PO DAILY 07/30/19 Reported Montelukast Sodium Tablet (Montelukast Sodium) 10 Mg Tablet 10 Mg PO HS 07/29/19 Reported Levocetirizine Dihydrochloride 5 Mg Tablet 5 Mg PO DAILY 07/29/19 Reported Amitriptyline Hcl 25 Mg Tablet 25 Mg PO QHS 07/29/19 Reported Tylenol (Acetaminophen) 325 Mg Tablet 650 Mg PO PRN Q4HRS PRN 07/29/19 Reported Aspir 81 (Aspirin) 81 Mg Tablet.dr 1 Tab PO DAILY 01/03/18 Reported Metoprolol Succinate ( Xl ) (Metoprolol Succinate) 25 Mg Tab.er.24h 25 Mg PO DAILY 01/03/18 Reported Vitamin D3 (Cholecalciferol (Vitamin D3)) 1,000 Unit Tablet 1 Tab PO DAILY 01/02/18 Reported Torsemide 20 Mg Tablet 1 Tab PO DAILY 01/02/18 Reported Gabapentin (Gabapentin) 100 Mg Capsule 100 Mg PO TID 01/02/18 Reported Ferrous Sulfate 325 Mg Tablet 1 Tab PO DAILY 09/23/17 Reported Daliresp (Roflumilast) 500 Mcg Tablet 1 Tab PO DAILY 09/23/17 Reported Atorvastatin Calcium 20 Mg Tablet 20 Mg PO HS 09/23/17 Reported Requip (Ropinirole Hcl) 1 Mg Tablet 3 Tab PO QHS 09/23/17 Reported Proair Hfa Inhaler (Albuterol Sulfate) 8.5 Gm Hfa.aer.ad 1 Puff INH PRN Q6HRS PRN 09/23/17 Reported Levothyroxine Sodium 50 Mcg Tablet 1 Tab PO DAILY 09/23/17 Reported Impression . IMPRESSION: 1. Dyspnea secondary to acute exacerbation of chronic obstructive pulmonary disease with audible wheezing. 2. No signs of pneumonia. 3. Chronic compensated hypercapnia. 4. allergic rhinitis Plan . RECOMMENDATIONS: 1. The patient is still wheezing. 02 titration 2. Continue IV Solu-Medrol 60 q 6hrs. 3. ? hold metoprolol. 4. Empiric antibiotics for now. 5. COVID test is negative, w 6. BD q 4hrs cont ics, add flonase. Discussed with RN. We will follow along with you. KING CHUNG MD May 03, 2020 11:19
[2020-05-03] MEDS: AZITHROMYCIN 500 MG in IV NORMAL SALINE 250ML 250 ML IV SCH (11:59)
[2020-05-03] MEDS: HYDROcodone/APAP 5/325MG 1 TAB TABLET PO PRN ×2 (12:09→20:27)
[2020-05-03 15:00] VITALS: BP 103/54
[2020-05-03] MEDS: FLUTICASONE 50MCG/NASAL SPRAY 16GM BOTTLE. NS SCH (15:08)
--- NOTE | 2020-05-03 16:26 | PDOC ---
PROGRESS NOTES Chief Complaint Chief Complaint Respiratory failure, suspect chronic obstructive pulmonary disease exacerbation Probable concomitant pneumonia COVID-19 results pending COPD CAD CHF Diabetes-Type II High Cholesterol Hypertension Hypothyroid History of Present Illness History of Present Illness 05/03/20. cont current, still weak, wheezing, plan OOB 05/02/20 Patient seen and examined - covid was negative Patient is in moderate distress with audible wheezing Discussed with RN Chart reviewed Vitals Vitals Vital Signs Date Time Temp Pulse Resp B/P (MAP) Pulse Ox O2 Delivery O2 Flow Rate FiO2 05/03/20 15:10 Nasal Cannula 2.0 05/03/20 15:00 97.9 92 18 103/54 (70) 99 97.9 Physical Exam General: Alert, Cooperative, moderate distress Heart: Regular rate, Normal S1 Lungs: Wheezing (audible wheezing in all lung connell ), Other Abdomen: Soft, No tenderness Extremities: No clubbing, No cyanosis Skin: No rashes, No significant lesion Labs LABS Laboratory Tests Test 05/02/20 20:40 05/03/20 07:35 05/03/20 11:42 Glucose (Fingerstick) 206 mg/dL (70-99) 170 mg/dL (70-99) 206 mg/dL (70-99) Assessment and Plan Assessmemt and Plan Problems Medical Problems: (1) COPD exacerbation Status: Acute Comment Review of Relevant I have reviewed the following items jon (where applicable) has been applied. Labs Laboratory Tests Test 05/02/20 20:40 05/03/20 07:35 05/03/20 11:42 Glucose (Fingerstick) 206 mg/dL (70-99) 170 mg/dL (70-99) 206 mg/dL (70-99) Laboratory Tests Test 05/02/20 20:40 05/03/20 07:35 05/03/20 11:42 Glucose (Fingerstick) 206 mg/dL (70-99) 170 mg/dL (70-99) 206 mg/dL (70-99) Medications Current Medications Methylprednisolone Sodium Succinate (SOLU-Medrol 125MG VIAL) 125 mg 1X ONCE IV Last administered on 05/01/20at 14:10; Start 05/01/20 at 13:30; Stop 05/01/20 at 13:31; Status DC Albuterol Sulfate (Ventolin Neb Soln) 10 mg 1X ONCE CONT NEB Last administered on 05/01/20at 13:47; Start 05/01/20 at 13:30; Stop 05/01/20 at 13:31; Status DC Fentanyl Citrate (Fentanyl 2ml Vial) 50 mcg 1X ONCE IVP Last administered on 05/01/20at 14:10; Start 05/01/20 at 13:45; Stop 05/01/20 at 13:51; Status DC Sodium Chloride 1,000 ml @ 1,000 mls/hr 1X ONCE IV Last administered on 05/01/20at 14:12; Start 05/01/20 at 14:15; Stop 05/01/20 at 15:14; Status DC Azithromycin 250 ml @ 250 mls/hr 1X ONCE IV Last administered on 05/01/20at 14:26; Start 05/01/20 at 14:15; Stop 05/01/20 at 15:14; Status DC Ondansetron HCl (Zofran) 4 mg PRN Q8HRS PRN IV NAUSEA/VOMITING; Start 05/01/20 at 14:45; Stop 05/02/20 at 14:44; Status DC Fentanyl Citrate (Fentanyl 2ml Vial) 50 mcg PRN Q1HR PRN IV PAIN Last administered on 05/01/20at 16:12; Start 05/01/20 at 14:45; Stop 05/02/20 at 14:44; Status DC Acetaminophen (Tylenol) 650 mg PRN Q4HRS PRN PO MILD PAIN 1-3; Start 05/01/20 at 20:45 Albuterol Sulfate (Ventolin Neb Soln) 2.5 mg PRN Q6HRS PRN INH SHORTNESS OF BREATH; Start 05/01/20 at 20:45 Allopurinol (Zyloprim) 100 mg DAILY PO Last administered on 05/03/20at 08:43; Start 05/02/20 at 09:00 Amitriptyline HCl (Elavil) 25 mg QHS PO Last administered on 05/02/20at 20:45; Start 05/01/20 at 21:00 Aspirin (Ecotrin) 81 mg DAILY PO Last administered on 05/03/20at 08:43; Start 05/02/20 at 09:00 Atorvastatin Calcium (Lipitor) 20 mg HS PO Last administered on 05/02/20at 20: 46; Start 05/01/20 at 21:00 Vitamin D (Vitamin D3) 1,000 unit DAILY PO Last administered on 05/03/20 08:43; Start 05/02/20 at 09:00 Ferrous Sulfate (Feosol) 325 mg DAILY PO Last administered on 05/03/20 08:44; Start 05/02/20 at 09:00 Gabapentin (Neurontin) 100 mg TID PO Last administered on 05/03/20 15:07; Start 05/01/20 at 21:00 Acetaminophen/ Hydrocodone Bitart (Lortab 5/325) 1 tab PRN Q4HRS PRN PO MODERATE PAIN 4-6 Last administered on 05/03/20 12:09; Start 05/01/20 at 20:45 Albuterol/ Ipratropium (Duoneb) 3 ml Q4HRS W/A NEB ; Start 05/01/20 at 22:00; Stop 05/02/20 at 10:59; Status DC Levothyroxine Sodium (Synthroid) 50 mcg DAILY06 PO Last administered on 05/03/20 05:28; Start 05/02/20 at 06:00 Metoprolol Succinate (Toprol Xl) 25 mg DAILY PO Last administered on 05/03/20 08:44; Start 05/02/20 at 09:00 Montelukast Sodium (Singulair) 10 mg HS PO Last administered on 05/02/20 20:45; Start 05/01/20 at 21:00 Roflumilast (Daliresp) 500 mcg DAILY PO Last administered on 05/03/20 08:43; Start 05/02/20 at 09:00 Ropinirole HCl (Requip) 3 mg QHS PO Last administered on 05/02/20 20:45; Start 05/01/20 at 21:00 Sacubitril/ Valsartan (Entresto 49 Mg-51 Mg) 1 tab BID PO Last administered on 05/03/20 08:44; Start 05/01/20 at 21:00 Torsemide (Demadex) 20 mg DAILY PO Last administered on 05/03/20 08:43; Start 05/02/20 at 09:00 Budesonide (Pulmicort) 0.5 mg RTBID NEB Last administered on 05/03/20 07:32; Start 05/02/20 at 08:00 Cetirizine HCl (ZyrTEC) 10 mg DAILY PO Last administered on 05/03/20at 08:44; Start 05/02/20 at 09:00 Pantoprazole Sodium (Protonix) 40 mg DAILYAC PO Last administered on 05/03/20at 05:28; Start 05/02/20 at 07:30 Potassium Chloride (Klor-Con) 20 meq DAILYWBKFT PO Last administered on 05/03/20at 08:43; Start 05/02/20 at 08:00 Methylprednisolone Sodium Succinate (SOLU-Medrol 40MG VIAL) 60 mg Q6HRS IV Last administered on 05/03/20at 12:10; Start 05/02/20 at 05:00 Azithromycin 500 mg/Sodium Chloride 250 ml @ 250 mls/hr Q24H IV Last administered on 05/03/20at 11:59; Start 05/02/20 at 10:00; Stop 05/03/20 at 12:58; Status DC Albuterol/ Ipratropium (Combivent Respimat 20-100 Mcg) 1 puff Q4HRS W/A INH Last administered on 05/02/20at 17:39; Start 05/02/20 at 14:00; Stop 05/02/20 at 18:39; Status DC Albuterol/ Ipratropium (Duoneb) 3 ml Q4HRS NEB Last administered on 05/03/20at 15:09; Start 05/02/20 at 20:00 Fluticasone Propionate (Flonase) 2 spray DAILY NS Last administered on 05/03/20at 15:08; Start 05/03/20 at 12:00 Lactobacillus Rhamnosus (Culturelle) 1 cap BID PO ; Start 05/03/20 at 21:00; Status Cancel Azithromycin (Zithromax) 500 mg DAILY PO ; Start 05/04/20 at 09:00 Active Scripts Active Duoneb 0.5-3(2.5) Mg/3 Ml (Albuterol/Ipratropium) 3 Ml Ampul.neb 3 Ml NEB Q4HRS 14 Days Hydrocodone-Apap 5-325 (Hydrocodone Bit/Acetaminophen) 1 Tab Tablet 1 Tab PO PRN Q4HRS PRN Reported Allopurinol 100 Mg Tablet 1 Tab PO DAILY Trelegy Ellipta 100-62.5-25 (Fluticasone/Umeclidin/Vilanter) 1 Each Blst.w.dev 1 Each IH DAILY Prilosec Otc (Omeprazole Magnesium) 20 Mg Tablet.dr 40 Mg PO DAILY Entresto 49 mg-51 mg Tablet (Sacubitril/Valsartan) 1 Each Tablet 49-51 Mg PO BID K-Tab ER (Potassium Chloride) 20 Meq Tablet.er 20 Meq PO DAILY Montelukast Sodium Tablet (Montelukast Sodium) 10 Mg Tablet 10 Mg PO HS Levocetirizine Dihydrochloride 5 Mg Tablet 5 Mg PO DAILY Amitriptyline Hcl 25 Mg Tablet 25 Mg PO QHS Tylenol (Acetaminophen) 325 Mg Tablet 650 Mg PO PRN Q4HRS PRN Aspir 81 (Aspirin) 81 Mg Tablet.dr 1 Tab PO DAILY Metoprolol Succinate ( Xl ) (Metoprolol Succinate) 25 Mg Tab.er.24h 25 Mg PO DAILY Vitamin D3 (Cholecalciferol (Vitamin D3)) 1,000 Unit Tablet 1 Tab PO DAILY Torsemide 20 Mg Tablet 1 Tab PO DAILY Gabapentin (Gabapentin) 100 Mg Capsule 100 Mg PO TID Ferrous Sulfate 325 Mg Tablet 1 Tab PO DAILY Daliresp (Roflumilast) 500 Mcg Tablet 1 Tab PO DAILY Atorvastatin Calcium 20 Mg Tablet 20 Mg PO HS Requip (Ropinirole Hcl) 1 Mg Tablet 3 Tab PO QHS Proair Hfa Inhaler (Albuterol Sulfate) 8.5 Gm Hfa.aer.ad 1 Puff INH PRN Q6HRS PRN Levothyroxine Sodium 50 Mcg Tablet 1 Tab PO DAILY Vitals/I & O Vital Sign - Last 24 Hours 05/02/20 05/02/20 05/02/20 05/02/20 19:51 20:02 20:15 20:42 Temp 98.0 97.9 98.0 97.9 Pulse 76 79 Resp 20 20 B/P (MAP) 90/50 (63) 93/38 (56) Pulse Ox 97 98 95 O2 Delivery Nasal Cannula Nasal Cannula Nasal Cannula Nasal Cannula O2 Flow Rate 2.0 2.0 2.0 2.0 05/02/20 05/02/20 05/03/20 05/03/20 23:00 23:59 00:12 03:00 Temp 98.3 98.0 98.3 98.0 Pulse 80 80 92 Resp 22 20 B/P (MAP) 113/43 (66) 113/43 86/37 (53) Pulse Ox 97 96 O2 Delivery Nasal Cannula Nasal Cannula Nasal Cannula O2 Flow Rate 2.0 2.0 2.0 05/03/20 05/03/20 05/03/20 05/03/20 03:36 06:26 07:35 07:35 Pulse 91 B/P (MAP) 101/47 (65) Pulse Ox 99 99 O2 Delivery Nasal Cannula Nasal Cannula Nasal Cannula O2 Flow Rate 2.0 2.0 2.0 05/03/20 05/03/20 05/03/20 05/03/20 08:00 08:44 08:44 11:00 Temp 98.1 98.1 Pulse 91 91 90 Resp 18 B/P (MAP) 101/47 101/47 94/50 (65) Pulse Ox 99 O2 Delivery Nasal Cannula Nasal Cannula O2 Flow Rate 2.0 2.0 05/03/20 05/03/20 05/03/20 05/03/20 11:25 12:09 15:00 15:10 Temp 97.9 97.9 Pulse 92 Resp 20 18 B/P (MAP) 103/54 (70) Pulse Ox 99 O2 Delivery Nasal Cannula Nasal Cannula Room Air Nasal Cannula O2 Flow Rate 2.0 2.0 2.0 Intake and Output0 05/02/20 05/02/20 05/03/20 15:00 23:00 07:00 Intake Total 100 ml 300 ml Balance 100 ml 300 ml Justicifation of Admission Dx: Justifications for Admission: Justification of Admission Dx: Yes DEMETRA BABIN MD May 03, 2020 16:26
[2020-05-03 19:00] VITALS: BP 112/50
[2020-05-03] MEDS: rOPINIRole 1 MG TABLET. PO SCH (20:25)
[2020-05-03] MEDS: MONTELUKAST SODIUM 10 MG TABLET. PO SCH (20:26)
[2020-05-03] MEDS: ATORVASTATIN CALCIUM 20 MG TABLET PO SCH (20:26)
[2020-05-03] MEDS: AMITRIPTYLINE HCL 25 MG TABLET. PO SCH (20:26)
[2020-05-03] MEDS ORDERED: LACTOBACILLUS RHAMNOSUS GG 1 CAPSULE. PO SCH (21:00)
[2020-05-03 22:59] VITALS: BP 100/51
[2020-05-04] MEDS: methylPREDNISolone SOD SUCC PF 40 MG/ML VIAL. IV SCH ×4 (00:22→18:05)
[2020-05-04 03:00] VITALS: BP 101/48
[2020-05-04] MEDS: IPRATRPIUM/ALBUTEROL 0.5/2.5MG 3 ML NEBU. NEB SCH ×5 (03:40→20:03)
[2020-05-04] MEDS: LEVOTHYROXINE 50 MCG TABLET PO SCH (06:08)
[2020-05-04] MEDS: BUDESONIDE 0.5 MG/2 ML NEBU. NEB SCH ×2 (07:23→20:03)
[2020-05-04 07:26] VITALS: BP 98/39
[2020-05-04] MEDS: METOPROLOL SUCC 24HR ER 25 MG TAB.ER.24H. PO SCH (09:00)
[2020-05-04] MEDS: SACUBITRIL/VALSARTAN 49/51MG TABLET. PO SCH ×2 (09:00→20:44)
--- NOTE | 2020-05-04 09:53 | PDOC ---
PROGRESS NOTES Chief Complaint Chief Complaint Respiratory failure, suspect chronic obstructive pulmonary disease exacerbation Probable concomitant pneumonia COVID-19 results pending COPD CAD CHF Diabetes-Type II High Cholesterol Hypertension Hypothyroid History of Present Illness History of Present Illness 05/04/20. cough is worse, she has a headache today, would like a lortab weakness and dyspnea persist, she reports that her torsemide dose had been increased by Dr. Driscoll 05/03/20. cont current, still weak, wheezing, plan OOB 05/02/20 Patient seen and examined - covid was negative Patient is in moderate distress with audible wheezing Discussed with RN Chart reviewed Vitals Vitals Vital Signs Date Time Temp Pulse Resp B/P (MAP) Pulse Ox O2 Delivery O2 Flow Rate FiO2 05/04/20 07:26 98.7 87 18 98/39 (58) 98 Room Air 98.7 05/04/20 07:23 2.0 Physical Exam General: Alert, Cooperative, moderate distress Heart: Regular rate, Normal S1 Lungs: Wheezing (audible wheezing in all lung connell ), Other Abdomen: Soft, No tenderness Extremities: No clubbing, No cyanosis Skin: No rashes, No significant lesion Labs LABS Laboratory Tests Test 05/03/20 11:42 05/03/20 16:41 05/03/20 20:07 05/04/20 07:00 Glucose (Fingerstick) 206 mg/dL (70-99) 288 mg/dL (70-99) 175 mg/dL (70-99) 158 mg/dL (70-99) Assessment and Plan Assessmemt and Plan Problems Medical Problems: (1) COPD exacerbation Status: Acute Comment Review of Relevant I have reviewed the following items jon (where applicable) has been applied. Labs Laboratory Tests Test 05/02/20 20:40 05/03/20 07:35 05/03/20 11:42 05/03/20 16:41 Glucose (Fingerstick) 206 mg/dL (70-99) 170 mg/dL (70-99) 206 mg/dL (70-99) 288 mg/dL (70-99) Test 05/03/20 20:07 05/04/20 07:00 Glucose (Fingerstick) 175 mg/dL (70-99) 158 mg/dL (70-99) Laboratory Tests Test 05/03/20 11:42 05/03/20 16:41 05/03/20 20:07 05/04/20 07:00 Glucose (Fingerstick) 206 mg/dL (70-99) 288 mg/dL (70-99) 175 mg/dL (70-99) 158 mg/dL (70-99) Medications Current Medications Methylprednisolone Sodium Succinate (SOLU-Medrol 125MG VIAL) 125 mg 1X ONCE IV Last administered on 05/01/20at 14:10; Start 05/01/20 at 13:30; Stop 05/01/20 at 13:31; Status DC Albuterol Sulfate (Ventolin Neb Soln) 10 mg 1X ONCE CONT NEB Last administered on 05/01/20at 13:47; Start 05/01/20 at 13:30; Stop 05/01/20 at 13:31; Status DC Fentanyl Citrate (Fentanyl 2ml Vial) 50 mcg 1X ONCE IVP Last administered on 05/01/20at 14:10; Start 05/01/20 at 13:45; Stop 05/01/20 at 13:51; Status DC Sodium Chloride 1,000 ml @ 1,000 mls/hr 1X ONCE IV Last administered on 05/01/20at 14:12; Start 05/01/20 at 14:15; Stop 05/01/20 at 15:14; Status DC Azithromycin 250 ml @ 250 mls/hr 1X ONCE IV Last administered on 05/01/20at 14:26; Start 05/01/20 at 14:15; Stop 05/01/20 at 15:14; Status DC Ondansetron HCl (Zofran) 4 mg PRN Q8HRS PRN IV NAUSEA/VOMITING; Start 05/01/20 at 14:45; Stop 05/02/20 at 14:44; Status DC Fentanyl Citrate (Fentanyl 2ml Vial) 50 mcg PRN Q1HR PRN IV PAIN Last administered on 05/01/20at 16:12; Start 05/01/20 at 14:45; Stop 05/02/20 at 14:44; Status DC Acetaminophen (Tylenol) 650 mg PRN Q4HRS PRN PO MILD PAIN 1-3; Start 05/01/20 at 20:45 Albuterol Sulfate (Ventolin Neb Soln) 2.5 mg PRN Q6HRS PRN INH SHORTNESS OF BREATH; Start 05/01/20 at 20:45 Allopurinol (Zyloprim) 100 mg DAILY PO Last administered on 05/03/20 08:43; Start 05/02/20 at 09:00 Amitriptyline HCl (Elavil) 25 mg QHS PO Last administered on 05/03/20 20:26; Start 05/01/20 at 21:00 Aspirin (Ecotrin) 81 mg DAILY PO Last administered on 05/03/20 08:43; Start 05/02/20 at 09:00 Atorvastatin Calcium (Lipitor) 20 mg HS PO Last administered on 05/03/20 20:26; Start 05/01/20 at 21:00 Vitamin D (Vitamin D3) 1,000 unit DAILY PO Last administered on 05/03/20 08:43; Start 05/02/20 at 09:00 Ferrous Sulfate (Feosol) 325 mg DAILY PO Last administered on 05/03/20 08:44; Start 05/02/20 at 09:00 Gabapentin (Neurontin) 100 mg TID PO Last administered on 05/03/20 20:26; Start 05/01/20 at 21:00 Acetaminophen/ Hydrocodone Bitart (Lortab 5/325) 1 tab PRN Q4HRS PRN PO MODERATE PAIN 4-6 Last administered on 05/03/20 20:27; Start 05/01/20 at 20:45 Albuterol/ Ipratropium (Duoneb) 3 ml Q4HRS W/A NEB ; Start 05/01/20 at 22:00; Stop 05/02/20 at 10:59; Status DC Levothyroxine Sodium (Synthroid) 50 mcg DAILY06 PO Last administered on 05/04/20 06:08; Start 05/02/20 at 06:00 Metoprolol Succinate (Toprol Xl) 25 mg DAILY PO Last administered on 05/03/20 08:44; Start 05/02/20 at 09:00 Montelukast Sodium (Singulair) 10 mg HS PO Last administered on 05/03/20 20:26; Start 05/01/20 at 21:00 Roflumilast (Daliresp) 500 mcg DAILY PO Last administered on 05/03/20 08:43; Start 05/02/20 at 09:00 Ropinirole HCl (Requip) 3 mg QHS PO Last administered on 05/03/20 20:25; Start 05/01/20 at 21:00 Sacubitril/ Valsartan (Entresto 49 Mg-51 Mg) 1 tab BID PO Last administered on 05/03/20 20:26; Start 05/01/20 at 21:00 Torsemide (Demadex) 20 mg DAILY PO Last administered on 05/03/20 08:43; Start 05/02/20 at 09:00 Budesonide (Pulmicort) 0.5 mg RTBID NEB Last administered on 05/04/20 07:23; Start 05/02/20 at 08:00 Cetirizine HCl (ZyrTEC) 10 mg DAILY PO Last administered on 05/03/20 08:44; Start 05/02/20 at 09:00 Pantoprazole Sodium (Protonix) 40 mg DAILYAC PO Last administered on 05/03/20at 05:28; Start 05/02/20 at 07:30 Potassium Chloride (Klor-Con) 20 meq DAILYWBKFT PO Last administered on 05/03/20at 08:43; Start 05/02/20 at 08:00 Methylprednisolone Sodium Succinate (SOLU-Medrol 40MG VIAL) 60 mg Q6HRS IV Last administered on 05/04/20 06:08; Start 05/02/20 at 05:00 Azithromycin 500 mg/Sodium Chloride 250 ml @ 250 mls/hr Q24H IV Last administered on 05/03/20at 11:59; Start 05/02/20 at 10:00; Stop 05/03/20 at 12:58; Status DC Albuterol/ Ipratropium (Combivent Respimat 20-100 Mcg) 1 puff Q4HRS W/A INH Last administered on 05/02/20at 17:39; Start 05/02/20 at 14:00; Stop 05/02/20 at 18:39; Status DC Albuterol/ Ipratropium (Duoneb) 3 ml Q4HRS NEB Last administered on 05/04/20 07:23; Start 05/02/20 at 20:00 Fluticasone Propionate (Flonase) 2 spray DAILY NS Last administered on 05/03/20at 15:08; Start 05/03/20 at 12:00 Lactobacillus Rhamnosus (Culturelle) 1 cap BID PO ; Start 05/03/20 at 21:00; Status Cancel Azithromycin (Zithromax) 500 mg DAILY PO ; Start 05/04/20 at 09:00 Active Scripts Active Duoneb 0.5-3(2.5) Mg/3 Ml (Albuterol/Ipratropium) 3 Ml Ampul.neb 3 Ml NEB Q4HRS 14 Days Hydrocodone-Apap 5-325 (Hydrocodone Bit/Acetaminophen) 1 Tab Tablet 1 Tab PO PRN Q4HRS PRN Reported Allopurinol 100 Mg Tablet 1 Tab PO DAILY Trelegy Ellipta 100-62.5-25 (Fluticasone/Umeclidin/Vilanter) 1 Each Blst.w.dev 1 Each IH DAILY Prilosec Otc (Omeprazole Magnesium) 20 Mg Tablet.dr 40 Mg PO DAILY Entresto 49 mg-51 mg Tablet (Sacubitril/Valsartan) 1 Each Tablet 49-51 Mg PO BID K-Tab ER (Potassium Chloride) 20 Meq Tablet.er 20 Meq PO DAILY Montelukast Sodium Tablet (Montelukast Sodium) 10 Mg Tablet 10 Mg PO HS Levocetirizine Dihydrochloride 5 Mg Tablet 5 Mg PO DAILY Amitriptyline Hcl 25 Mg Tablet 25 Mg PO QHS Tylenol (Acetaminophen) 325 Mg Tablet 650 Mg PO PRN Q4HRS PRN Aspir 81 (Aspirin) 81 Mg Tablet.dr 1 Tab PO DAILY Metoprolol Succinate ( Xl ) (Metoprolol Succinate) 25 Mg Tab.er.24h 25 Mg PO DAILY Vitamin D3 (Cholecalciferol (Vitamin D3)) 1,000 Unit Tablet 1 Tab PO DAILY Torsemide 20 Mg Tablet 1 Tab PO DAILY Gabapentin (Gabapentin) 100 Mg Capsule 100 Mg PO TID Ferrous Sulfate 325 Mg Tablet 1 Tab PO DAILY Daliresp (Roflumilast) 500 Mcg Tablet 1 Tab PO DAILY Atorvastatin Calcium 20 Mg Tablet 20 Mg PO HS Requip (Ropinirole Hcl) 1 Mg Tablet 3 Tab PO QHS Proair Hfa Inhaler (Albuterol Sulfate) 8.5 Gm Hfa.aer.ad 1 Puff INH PRN Q6HRS PRN Levothyroxine Sodium 50 Mcg Tablet 1 Tab PO DAILY Vitals/I & O Vital Sign - Last 24 Hours 05/03/20 05/03/20 05/03/20 05/03/20 11:00 11:25 12:09 13:09 Temp 98.1 98.1 Pulse 90 Resp 18 20 20 B/P (MAP) 94/50 (65) Pulse Ox 99 O2 Delivery Nasal Cannula Nasal Cannula Nasal Cannula Room Air O2 Flow Rate 2.0 2.0 2.0 05/03/20 05/03/20 05/03/20 05/03/20 15:00 15:10 19:00 19:50 Temp 97.9 98.8 97.9 98.8 Pulse 92 88 Resp 18 22 B/P (MAP) 103/54 (70) 112/50 (70) Pulse Ox 99 96 O2 Delivery Room Air Nasal Cannula Room Air Nasal Cannula O2 Flow Rate 2.0 2.0 05/03/20 05/03/20 05/03/20 05/03/20 20:26 20:27 20:34 20:34 Pulse 88 B/P (MAP) 112/50 Pulse Ox 97 97 O2 Delivery Nasal Cannula Nasal Cannula Nasal Cannula O2 Flow Rate 2.0 2.0 2.0 05/03/20 05/03/20 05/04/20 05/04/20 22:59 23:24 03:00 03:42 Temp 98.8 98.4 98.8 98.4 Pulse 88 85 Resp 18 22 B/P (MAP) 100/51 (67) 101/48 (65) Pulse Ox 95 97 95 O2 Delivery Room Air Nasal Cannula Room Air Nasal Cannula O2 Flow Rate 2.0 2.0 05/04/20 05/04/20 07:23 07:26 Temp 98.7 98.7 Pulse 87 Resp 18 B/P (MAP) 98/39 (58) Pulse Ox 96 98 O2 Delivery Nasal Cannula Room Air O2 Flow Rate 2.0 Intake and Output 05/03/20 05/03/20 05/04/20 15:00 23:00 07:00 Intake Total 540 ml 360 ml Balance 540 ml 360 ml Justicifation of Admission Dx: Justifications for Admission: Justification of Admission Dx: Yes DEMETRA BABIN MD May 04, 2020 09:53
[2020-05-04] MEDS: guaiFENesin DM 200MG/20MG 10 ML SYRUP PO PRN (10:09)
[2020-05-04] MEDS: BENZONATATE 100 MG CAPSULE. PO SCH ×3 (10:10→21:34)
[2020-05-04] MEDS: HYDROcodone/APAP 5/325MG 1 TAB TABLET PO PRN ×2 (10:10→15:57)
[2020-05-04] MEDS: CHOLECALCIFEROL (VITAMIN D3) 1,000 UNIT TABLET PO SCH (10:10)
[2020-05-04] MEDS: ASPIRIN ENTERIC COATED 81 MG TABLET.DR. PO SCH (10:11)
[2020-05-04] MEDS: ALLOPURINOL 100 MG TABLET. PO SCH (10:11)
[2020-05-04] MEDS: GABAPENTIN 100 MG CAPSULE. PO SCH ×3 (10:11→20:44)
[2020-05-04] MEDS: CETIRIZINE HCL 10 MG TABLET. PO SCH (10:11)
[2020-05-04] MEDS: FERROUS SULFATE 325 MG TABLET. PO SCH (10:11)
[2020-05-04] MEDS: ROFLUMILAST 500 MCG TABLET. PO SCH (10:11)
[2020-05-04] MEDS: PANTOPRAZOLE 40 MG TABLET.DR. PO SCH (10:12)
[2020-05-04] MEDS: POTASSIUM CHLORIDE 20 MEQ TABLET.ER. PO SCH (10:12)
[2020-05-04] MEDS: AZITHROMYCIN 250 MG TABLET. PO SCH (10:12)
[2020-05-04] MEDS ORDERED: TORSEMIDE 20 MG TABLET. PO ONE (10:15)
[2020-05-04] MEDS: FLUTICASONE 50MCG/NASAL SPRAY 16GM BOTTLE. NS SCH (10:17)
--- NOTE | 2020-05-04 11:16 | PDOC ---
PULMONARY PROGRESS NOTES Subjective n 02 still has sob, cough, no audible wheezing has post nasal drip Vitals Vital Signs Date Time Temp Pulse Resp B/P (MAP) Pulse Ox O2 Delivery O2 Flow Rate FiO2 05/04/20 10:10 20 Room Air 2.0 05/04/20 07:26 98.7 87 98/39 (58) 98 98.7 ROS: No Nausea, No Chest Pain General: Alert, Oriented X4, No acute distress HEENT: Other (nc at perr ) Lungs: Wheezing (has better air movement and wheezing), Other Cardiovascular: S1, S2 Abdomen: Soft, Non-tender Neuro Exam: Alert Extremities: No Edema Skin: Warm Labs Laboratory Tests Test 05/02/20 20:40 05/03/20 07:35 05/03/20 11:42 05/03/20 16:41 Glucose (Fingerstick) 206 mg/dL (70-99) 170 mg/dL (70-99) 206 mg/dL (70-99) 288 mg/dL (70-99) Test 05/03/20 20:07 05/04/20 07:00 Glucose (Fingerstick) 175 mg/dL (70-99) 158 mg/dL (70-99) Laboratory Tests Test 05/03/20 11:42 05/03/20 16:41 05/03/20 20:07 05/04/20 07:00 Glucose (Fingerstick) 206 mg/dL (70-99) 288 mg/dL (70-99) 175 mg/dL (70-99) 158 mg/dL (70-99) Medications Active Scripts Medications Dose Route/Sig Max Daily Dose Days Date Category Allopurinol 100 Mg Tablet 1 Tab PO DAILY 05/01/20 Reported Trelegy Ellipta 100-62.5-25 (Fluticasone/Umeclidin/Vilanter) 1 Each Blst.w.dev 1 Each IH DAILY 03/17/20 Reported Prilosec Otc (Omeprazole Magnesium) 20 Mg Tablet.dr 40 Mg PO DAILY 03/17/20 Reported Duoneb 0.5-3(2.5) Mg/3 Ml (Albuterol/Ipratropium) 3 Ml Ampul.neb 3 Ml NEB Q4HRS 14 10/22/19 Rx Hydrocodone-Apap 5-325 (Hydrocodone Bit/Acetaminophen) 1 Tab Tablet 1 Tab PO PRN Q4HRS PRN 10/20/19 Rx Entresto 49 mg-51 mg Tablet (Sacubitril/Valsartan) 1 Each Tablet 49-51 Mg PO BID 07/30/19 Reported K-Tab ER (Potassium Chloride) 20 Meq Tablet.er 20 Meq PO DAILY 07/30/19 Reported Montelukast Sodium Tablet (Montelukast Sodium) 10 Mg Tablet 10 Mg PO HS 07/29/19 Reported Levocetirizine Dihydrochloride 5 Mg Tablet 5 Mg PO DAILY 07/29/19 Reported Amitriptyline Hcl 25 Mg Tablet 25 Mg PO QHS 07/29/19 Reported Tylenol (Acetaminophen) 325 Mg Tablet 650 Mg PO PRN Q4HRS PRN 07/29/19 Reported Aspir 81 (Aspirin) 81 Mg Tablet.dr 1 Tab PO DAILY 01/03/18 Reported Metoprolol Succinate ( Xl ) (Metoprolol Succinate) 25 Mg Tab.er.24h 25 Mg PO DAILY 01/03/18 Reported Vitamin D3 (Cholecalciferol (Vitamin D3)) 1,000 Unit Tablet 1 Tab PO DAILY 01/02/18 Reported Torsemide 20 Mg Tablet 1 Tab PO DAILY 01/02/18 Reported Gabapentin (Gabapentin) 100 Mg Capsule 100 Mg PO TID 01/02/18 Reported Ferrous Sulfate 325 Mg Tablet 1 Tab PO DAILY 09/23/17 Reported Daliresp (Roflumilast) 500 Mcg Tablet 1 Tab PO DAILY 09/23/17 Reported Atorvastatin Calcium 20 Mg Tablet 20 Mg PO HS 09/23/17 Reported Requip (Ropinirole Hcl) 1 Mg Tablet 3 Tab PO QHS 09/23/17 Reported Proair Hfa Inhaler (Albuterol Sulfate) 8.5 Gm Hfa.aer.ad 1 Puff INH PRN Q6HRS PRN 09/23/17 Reported Levothyroxine Sodium 50 Mcg Tablet 1 Tab PO DAILY 09/23/17 Reported Impression . IMPRESSION: 1. Dyspnea secondary to acute exacerbation of chronic obstructive pulmonary disease with audible wheezing. 2. No signs of pneumonia. 3. Chronic compensated hypercapnia. 4. allergic rhinitis Plan . RECOMMENDATIONS: 1. The patient is wheezing less 02 titration 2. Continue IV Solu-Medrol 60 q 6hrs. has less wheezing 3. ? hold metoprolol. 4. Empiric antibiotics for now. 5. COVID test is negative, 6. BD q 4hrs cont ics, cont flonase. Discussed with RN, pt. We will follow along with you. KING CHUNG MD May 04, 2020 11:16
[2020-05-04 11:23] VITALS: BP 99/44
[2020-05-04 11:55] LABS: HEMATOCRIT 31.7 % (36.0-47.0); HEMOGLOBIN 10.6 g/dL (12.0-15.5); RED BLOOD COUNT 3.41 x10^6/uL (3.50-5.40); RED CELL DISTRIBUTION WIDTH 14.9 % (11.5-14.5); WHITE BLOOD COUNT 9.4 x10^3/uL (4.0-11.0)
[2020-05-04 12:19] LABS: ALBUMIN 2.6 g/dL (3.4-5.0); ALBUMIN/GLOBULIN RATIO 0.7 (1.0-1.7); CALCIUM 8.8 mg/dL (8.5-10.1); CREATININE 1.3 mg/dL (0.6-1.0); POTASSIUM 4.2 mmol/L (3.5-5.1); TOTAL BILIRUBIN 0.2 mg/dL (0.2-1.0); TOTAL PROTEIN 6.3 g/dL (6.4-8.2)
[2020-05-04 15:31] VITALS: BP 107/51
[2020-05-04 19:00] VITALS: BP 112/50
[2020-05-04] MEDS: MONTELUKAST SODIUM 10 MG TABLET. PO SCH (20:44)
[2020-05-04] MEDS: AMITRIPTYLINE HCL 25 MG TABLET. PO SCH (20:45)
[2020-05-04] MEDS: ATORVASTATIN CALCIUM 20 MG TABLET PO SCH (20:45)
[2020-05-04] MEDS: rOPINIRole 1 MG TABLET. PO SCH (20:45)
[2020-05-04] MEDS ORDERED: diphenhydrAMINE 50 MG/ML VIAL IVP PRN (21:30)
[2020-05-04 23:00] VITALS: BP 115/61
[2020-05-05] MEDS: IPRATRPIUM/ALBUTEROL 0.5/2.5MG 3 ML NEBU. NEB SCH ×6 (00:13→19:58)
[2020-05-05] MEDS: methylPREDNISolone SOD SUCC PF 40 MG/ML VIAL. IV SCH ×5 (00:30→23:58)
[2020-05-05 03:10] VITALS: BP 118/40
[2020-05-05] MEDS: LEVOTHYROXINE 50 MCG TABLET PO SCH (05:29)
[2020-05-05] MEDS: PANTOPRAZOLE 40 MG TABLET.DR. PO SCH (05:34)
[2020-05-05] MEDS: BUDESONIDE 0.5 MG/2 ML NEBU. NEB SCH ×2 (06:59→19:58)
[2020-05-05 07:28] VITALS: BP 113/50
[2020-05-05] MEDS: FERROUS SULFATE 325 MG TABLET. PO SCH (07:58)
[2020-05-05] MEDS: POTASSIUM CHLORIDE 20 MEQ TABLET.ER. PO SCH (07:58)
[2020-05-05] MEDS: BENZONATATE 100 MG CAPSULE. PO SCH ×3 (07:58→20:37)
[2020-05-05] MEDS: ROFLUMILAST 500 MCG TABLET. PO SCH (07:58)
[2020-05-05] MEDS: ASPIRIN ENTERIC COATED 81 MG TABLET.DR. PO SCH (07:58)
[2020-05-05] MEDS: CETIRIZINE HCL 10 MG TABLET. PO SCH (07:58)
[2020-05-05] MEDS: AZITHROMYCIN 250 MG TABLET. PO SCH (07:59)
[2020-05-05] MEDS: ALLOPURINOL 100 MG TABLET. PO SCH (07:59)
[2020-05-05] MEDS: GABAPENTIN 100 MG CAPSULE. PO SCH ×3 (07:59→20:38)
[2020-05-05] MEDS ORDERED: IPRATRPIUM/ALBUTEROL 0.5/2.5MG 3 ML NEBU. NEB SCH (08:00)
[2020-05-05] MEDS: SACUBITRIL/VALSARTAN 49/51MG TABLET. PO SCH ×2 (08:00→20:39)
[2020-05-05] MEDS: METOPROLOL SUCC 24HR ER 25 MG TAB.ER.24H. PO SCH (08:01)
[2020-05-05] MEDS: CHOLECALCIFEROL (VITAMIN D3) 1,000 UNIT TABLET PO SCH (08:01)
[2020-05-05] MEDS: FLUTICASONE 50MCG/NASAL SPRAY 16GM BOTTLE. NS SCH (08:02)
[2020-05-05] MEDS: TORSEMIDE 20 MG TABLET. PO SCH (08:07)
[2020-05-05] MEDS: HYDROcodone/APAP 5/325MG 1 TAB TABLET PO PRN ×2 (08:14→12:03)
--- NOTE | 2020-05-05 08:28 | NUR ---
SW following. Discussed with RN, pt on 2L oxygen - uses at home. Pt gets around fine. SW will continue to follow.
[2020-05-05] MEDS ORDERED: TORSEMIDE 20 MG TABLET. PO SCH (09:00)
--- NOTE | 2020-05-05 09:10 | PDOC ---
PROGRESS NOTES Chief Complaint Chief Complaint impression Respiratory failure, suspect chronic obstructive pulmonary disease exacerbation Probable concomitant pneumonia COVID-19 results neg COPD CAD CHF Diabetes-Type II High Cholesterol Hypertension Hypothyroid plan admit consult pulmonary med o2 support History of Present Illness History of Present Illness 05/05/20. cough she reports that her torsemide dose had been increased by Dr. Driscoll Continue IV Solu-Medrol 60 q 6hrs. has less wheezing hold metoprolol. Empiric antibiotics D/W RN 05/03/20. cont current, still weak, wheezing, plan OOB 05/02/20 Patient seen and examined - covid was negative Patient is in moderate distress with audible wheezing Discussed with RN Chart reviewed Vitals Vitals Vital Signs Date Time Temp Pulse Resp B/P (MAP) Pulse Ox O2 Delivery O2 Flow Rate FiO2 05/05/20 08:14 20 Nasal Cannula 2.0 05/05/20 08:01 102 113/50 05/05/20 07:28 97.6 99 97.6 Physical Exam General: Alert, Oriented X3, Cooperative, No acute distress Heart: Regular rate, Normal S1 Lungs: Wheezing (has better air movement and wheezing), Other Abdomen: Soft, No tenderness Extremities: No clubbing, No cyanosis Skin: No rashes, No significant lesion Labs LABS Laboratory Tests Test 05/04/20 11:15 05/04/20 11:21 05/04/20 16:37 05/04/20 19:46 White Blood Count 9.4 x10^3/uL (4.0-11.0) Red Blood Count 3.41 x10^6/uL (3.50-5.40) Hemoglobin 10.6 g/dL (12.0-15.5) Hematocrit 31.7 % (36.0-47.0) Mean Corpuscular Volume 93 fL (79-100) Mean Corpuscular Hemoglobin 31 pg (25-35) Mean Corpuscular Hemoglobin Concent 33 g/dL (31-37) Red Cell Distribution Width 14.9 % (11.5-14.5) Platelet Count 229 x10^3/uL (140-400) Sodium Level 139 mmol/L (136-145) Potassium Level 4.2 mmol/L (3.5-5.1) Chloride Level 101 mmol/L (98-107) Carbon Dioxide Level 34 mmol/L (21-32) Anion Gap 4 (6-14) Blood Urea Nitrogen 27 mg/dL (7-20) Creatinine 1.3 mg/dL (0.6-1.0) Estimated GFR (Cockcroft-Gault) 41.0 BUN/Creatinine Ratio 21 (6-20) Glucose Level 247 mg/dL (70-99) Calcium Level 8.8 mg/dL (8.5-10.1) Total Bilirubin 0.2 mg/dL (0.2-1.0) Aspartate Amino Transf (AST/SGOT) 16 U/L (15-37) Alanine Aminotransferase (ALT/SGPT) 23 U/L (14-59) Alkaline Phosphatase 62 U/L (46-116) Total Protein 6.3 g/dL (6.4-8.2) Albumin 2.6 g/dL (3.4-5.0) Albumin/Globulin Ratio 0.7 (1.0-1.7) Glucose (Fingerstick) 256 mg/dL (70-99) 114 mg/dL (70-99) 234 mg/dL (70-99) Test 05/05/20 07:40 Glucose (Fingerstick) 242 mg/dL (70-99) Assessment and Plan Assessmemt and Plan Problems Medical Problems: (1) COPD exacerbation Status: Acute Comment Review of Relevant I have reviewed the following items jon (where applicable) has been applied. Labs Laboratory Tests Test 05/03/20 11:42 05/03/20 16:41 05/03/20 20:07 05/04/20 07:00 Glucose (Fingerstick) 206 mg/dL (70-99) 288 mg/dL (70-99) 175 mg/dL (70-99) 158 mg/dL (70-99) Test 05/04/20 11:15 05/04/20 11:21 05/04/20 16:37 05/04/20 19:46 White Blood Count 9.4 x10^3/uL (4.0-11.0) Red Blood Count 3.41 x10^6/uL (3.50-5.40) Hemoglobin 10.6 g/dL (12.0-15.5) Hematocrit 31.7 % (36.0-47.0) Mean Corpuscular Volume 93 fL (79-100) Mean Corpuscular Hemoglobin 31 pg (25-35) Mean Corpuscular Hemoglobin Concent 33 g/dL (31-37) Red Cell Distribution Width 14.9 % (11.5-14.5) Platelet Count 229 x10^3/uL (140-400) Sodium Level 139 mmol/L (136-145) Potassium Level 4.2 mmol/L (3.5-5.1) Chloride Level 101 mmol/L (98-107) Carbon Dioxide Level 34 mmol/L (21-32) Anion Gap 4 (6-14) Blood Urea Nitrogen 27 mg/dL (7-20) Creatinine 1.3 mg/dL (0.6-1.0) Estimated GFR (Cockcroft-Gault) 41.0 BUN/Creatinine Ratio 21 (6-20) Glucose Level 247 mg/dL (70-99) Calcium Level 8.8 mg/dL (8.5-10.1) Total Bilirubin 0.2 mg/dL (0.2-1.0) Aspartate Amino Transf (AST/SGOT) 16 U/L (15-37) Alanine Aminotransferase (ALT/SGPT) 23 U/L (14-59) Alkaline Phosphatase 62 U/L (46-116) Total Protein 6.3 g/dL (6.4-8.2) Albumin 2.6 g/dL (3.4-5.0) Albumin/Globulin Ratio 0.7 (1.0-1.7) Glucose (Fingerstick) 256 mg/dL (70-99) 114 mg/dL (70-99) 234 mg/dL (70-99) Test 05/05/20 07:40 Glucose (Fingerstick) 242 mg/dL (70-99) Laboratory Tests Test 05/04/20 11:15 05/04/20 11:21 05/04/20 16:37 05/04/20 19:46 White Blood Count 9.4 x10^3/uL (4.0-11.0) Red Blood Count 3.41 x10^6/uL (3.50-5.40) Hemoglobin 10.6 g/dL (12.0-15.5) Hematocrit 31.7 % (36.0-47.0) Mean Corpuscular Volume 93 fL (79-100) Mean Corpuscular Hemoglobin 31 pg (25-35) Mean Corpuscular Hemoglobin Concent 33 g/dL (31-37) Red Cell Distribution Width 14.9 % (11.5-14.5) Platelet Count 229 x10^3/uL (140-400) Sodium Level 139 mmol/L (136-145) Potassium Level 4.2 mmol/L (3.5-5.1) Chloride Level 101 mmol/L (98-107) Carbon Dioxide Level 34 mmol/L (21-32) Anion Gap 4 (6-14) Blood Urea Nitrogen 27 mg/dL (7-20) Creatinine 1.3 mg/dL (0.6-1.0) Estimated GFR (Cockcroft-Gault) 41.0 BUN/Creatinine Ratio 21 (6-20) Glucose Level 247 mg/dL (70-99) Calcium Level 8.8 mg/dL (8.5-10.1) Total Bilirubin 0.2 mg/dL (0.2-1.0) Aspartate Amino Transf (AST/SGOT) 16 U/L (15-37) Alanine Aminotransferase (ALT/SGPT) 23 U/L (14-59) Alkaline Phosphatase 62 U/L (46-116) Total Protein 6.3 g/dL (6.4-8.2) Albumin 2.6 g/dL (3.4-5.0) Albumin/Globulin Ratio 0.7 (1.0-1.7) Glucose (Fingerstick) 256 mg/dL (70-99) 114 mg/dL (70-99) 234 mg/dL (70-99) Test 05/05/20 07:40 Glucose (Fingerstick) 242 mg/dL (70-99) Medications Current Medications Methylprednisolone Sodium Succinate (SOLU-Medrol 125MG VIAL) 125 mg 1X ONCE IV Last administered on 05/01/20at 14:10; Start 05/01/20 at 13:30; Stop 05/01/20 at 13:31; Status DC Albuterol Sulfate (Ventolin Neb Soln) 10 mg 1X ONCE CONT NEB Last administered on 05/01/20at 13:47; Start 05/01/20 at 13:30; Stop 05/01/20 at 13:31; Status DC Fentanyl Citrate (Fentanyl 2ml Vial) 50 mcg 1X ONCE IVP Last administered on 05/01/20 14:10; Start 05/01/20 at 13:45; Stop 05/01/20 at 13:51; Status DC Sodium Chloride 1,000 ml @ 1,000 mls/hr 1X ONCE IV Last administered on 05/01/20at 14:12; Start 05/01/20 at 14:15; Stop 05/01/20 at 15:14; Status DC Azithromycin 250 ml @ 250 mls/hr 1X ONCE IV Last administered on 05/01/20at 14:26; Start 05/01/20 at 14:15; Stop 05/01/20 at 15:14; Status DC Ondansetron HCl (Zofran) 4 mg PRN Q8HRS PRN IV NAUSEA/VOMITING; Start 05/01/20 at 14:45; Stop 05/02/20 at 14:44; Status DC Fentanyl Citrate (Fentanyl 2ml Vial) 50 mcg PRN Q1HR PRN IV PAIN Last administered on 05/01/20at 16:12; Start 05/01/20 at 14:45; Stop 05/02/20 at 14:44; Status DC Acetaminophen (Tylenol) 650 mg PRN Q4HRS PRN PO MILD PAIN 1-3 Last administered on 05/04/20at 20:45; Start 05/01/20 at 20:45 Albuterol Sulfate (Ventolin Neb Soln) 2.5 mg PRN Q6HRS PRN INH SHORTNESS OF BREATH; Start 05/01/20 at 20:45 Allopurinol (Zyloprim) 100 mg DAILY PO Last administered on 05/05/20at 07:59; Start 05/02/20 at 09:00 Amitriptyline HCl (Elavil) 25 mg QHS PO Last administered on 05/04/20 20:45; Start 05/01/20 at 21:00 Aspirin (Ecotrin) 81 mg DAILY PO Last administered on 05/05/20 07:58; Start 05/02/20 at 09:00 Atorvastatin Calcium (Lipitor) 20 mg HS PO Last administered on 05/04/20 20:45; Start 05/01/20 at 21:00 Vitamin D (Vitamin D3) 1,000 unit DAILY PO Last administered on 05/05/20at 08:01; Start 05/02/20 at 09:00 Ferrous Sulfate (Feosol) 325 mg DAILY PO Last administered on 05/05/20 07:58; Start 05/02/20 at 09:00 Gabapentin (Neurontin) 100 mg TID PO Last administered on 05/05/20 07:59; Start 05/01/20 at 21:00 Acetaminophen/ Hydrocodone Bitart (Lortab 5/325) 1 tab PRN Q4HRS PRN PO MODERATE PAIN 4-6 Last administered on 05/05/20 08:14; Start 05/01/20 at 20:45 Albuterol/ Ipratropium (Duoneb) 3 ml Q4HRS W/A NEB ; Start 05/01/20 at 22:00; Stop 05/02/20 at 10:59; Status DC Levothyroxine Sodium (Synthroid) 50 mcg DAILY06 PO Last administered on 05/05/20 05:29; Start 05/02/20 at 06:00 Metoprolol Succinate (Toprol Xl) 25 mg DAILY PO Last administered on 05/05/20 08:01; Start 05/02/20 at 09:00 Montelukast Sodium (Singulair) 10 mg HS PO Last administered on 05/04/20 20:44; Start 05/01/20 at 21:00 Roflumilast (Daliresp) 500 mcg DAILY PO Last administered on 05/05/20 07:58; Start 05/02/20 at 09:00 Ropinirole HCl (Requip) 3 mg QHS PO Last administered on 05/04/20 20:45; Start 05/01/20 at 21:00 Sacubitril/ Valsartan (Entresto 49 Mg-51 Mg) 1 tab BID PO Last administered on 05/05/20 08:00; Start 05/01/20 at 21:00 Torsemide (Demadex) 20 mg DAILY PO Last administered on 05/03/20 08:43; Start 05/02/20 at 09:00; Stop 05/04/20 at 09:55; Status DC Budesonide (Pulmicort) 0.5 mg RTBID NEB Last administered on 05/05/20 06:59; Start 05/02/20 at 08:00 Cetirizine HCl (ZyrTEC) 10 mg DAILY PO Last administered on 05/05/20 07:58; Start 05/02/20 at 09:00 Pantoprazole Sodium (Protonix) 40 mg DAILYAC PO Last administered on 05/05/20at 05:34; Start 05/02/20 at 07:30 Potassium Chloride (Klor-Con) 20 meq [id number] PO Last administered on 05/05/20at 07:58; Start 05/02/20 at 08:00 Methylprednisolone Sodium Succinate (SOLU-Medrol 40MG VIAL) 60 mg Q6HRS IV Last administered on 05/05/20at 05:28; Start 05/02/20 at 05:00 Azithromycin 500 mg/Sodium Chloride 250 ml @ 250 mls/hr Q24H IV Last administered on 05/03/20at 11:59; Start 05/02/20 at 10:00; Stop 05/03/20 at 12:58; Status DC Albuterol/ Ipratropium (Combivent Respimat 20-100 Mcg) 1 puff Q4HRS W/A INH Last administered on 05/02/20at 17:39; Start 05/02/20 at 14:00; Stop 05/02/20 at 18:39; Status DC Albuterol/ Ipratropium (Duoneb) 3 ml Q4HRS NEB Last administered on 05/05/20at 00:13; Start 05/02/20 at 20:00; Stop 05/05/20 at 05:24; Status DC Fluticasone Propionate (Flonase) 2 spray DAILY NS Last administered on 05/05/20at 08:02; Start 05/03/20 at 12:00 Lactobacillus Rhamnosus (Culturelle) 1 cap BID PO ; Start 05/03/20 at 21:00; Status Cancel Azithromycin (Zithromax) 500 mg DAILY PO Last administered on 05/05/20 07:59; Start 05/04/20 at 09:00 Benzonatate (Tessalon Perle) 100 mg [id number] PO Last administered on 05/05/20at 07:58; Start 05/04/20 at 10:00 Guaifenesin (Robitussin Dm) 10 ml PRN Q6HRS PRN PO COUGH Last administered on 05/04/20at 10:09; Start 05/04/20 at 10:00 Torsemide (Demadex) 40 mg DAILY PO Last administered on 05/04/20at 10:21; Start 05/05/20 at 09:00; Stop 05/04/20 at 12:45; Status DC Torsemide (Demadex) 20 mg 1X ONCE PO ; Start 05/04/20 at 10:15; Stop 05/04/20 at 10:16; Status DC Torsemide (Demadex) 40 mg DAILY PO Last administered on 05/05/20at 08:07; Start 05/05/20 at 09:00 Diphenhydramine HCl (Benadryl) 25 mg PRN Q6HRS PRN IVP ITCHING Last a dministered on 05/04/20at 21:31; Start 05/04/20 at 21:30 Albuterol/ Ipratropium (Duoneb) 3 ml RTQID NEB Last administered on 05/05/20at 06:59; Start 05/05/20 at 08:00 Active Scripts Active Duoneb 0.5-3(2.5) Mg/3 Ml (Albuterol/Ipratropium) 3 Ml Ampul.neb 3 Ml NEB Q4HRS 14 Days Hydrocodone-Apap 5-325 (Hydrocodone Bit/Acetaminophen) 1 Tab Tablet 1 Tab PO PRN Q4HRS PRN Reported Allopurinol 100 Mg Tablet 1 Tab PO DAILY Trelegy Ellipta 100-62.5-25 (Fluticasone/Umeclidin/Vilanter) 1 Each Blst.w.dev 1 Each IH DAILY Prilosec Otc (Omeprazole Magnesium) 20 Mg Tablet.dr 40 Mg PO DAILY Entresto 49 mg-51 mg Tablet (Sacubitril/Valsartan) 1 Each Tablet 49-51 Mg PO BID K-Tab ER (Potassium Chloride) 20 Meq Tablet.er 20 Meq PO DAILY Montelukast Sodium Tablet (Montelukast Sodium) 10 Mg Tablet 10 Mg PO HS Levocetirizine Dihydrochloride 5 Mg Tablet 5 Mg PO DAILY Amitriptyline Hcl 25 Mg Tablet 25 Mg PO QHS Tylenol (Acetaminophen) 325 Mg Tablet 650 Mg PO PRN Q4HRS PRN Aspir 81 (Aspirin) 81 Mg Tablet.dr 1 Tab PO DAILY Metoprolol Succinate ( Xl ) (Metoprolol Succinate) 25 Mg Tab.er.24h 25 Mg PO DAILY Vitamin D3 (Cholecalciferol (Vitamin D3)) 1,000 Unit Tablet 1 Tab PO DAILY Torsemide 20 Mg Tablet 1 Tab PO DAILY Gabapentin (Gabapentin) 100 Mg Capsule 100 Mg PO TID Ferrous Sulfate 325 Mg Tablet 1 Tab PO DAILY Daliresp (Roflumilast) 500 Mcg Tablet 1 Tab PO DAILY Atorvastatin Calcium 20 Mg Tablet 20 Mg PO HS Requip (Ropinirole Hcl) 1 Mg Tablet 3 Tab PO QHS Proair Hfa Inhaler (Albuterol Sulfate) 8.5 Gm Hfa.aer.ad 1 Puff INH PRN Q6HRS PRN Levothyroxine Sodium 50 Mcg Tablet 1 Tab PO DAILY Vitals/I & O Vital Sign - Last 24 Hours 05/04/20 05/04/20 05/04/20 05/04/20 10:10 11:10 11:21 11:23 Temp 98.9 98.9 Pulse 94 Resp B/P (MAP) 99/44 (62) Pulse Ox 97 97 O2 Delivery Room Air Room Air Nasal Cannula Room Air O2 Flow Rate 2.0 2.0 05/04/20 05/04/20 05/04/20 05/04/20 15:16 15:31 15:57 16:57 Temp 98.0 98.0 Pulse 81 Resp B/P (MAP) 107/51 (69) Pulse Ox 97 97 O2 Delivery Nasal Cannula Room Air Room Air Nasal Cannula O2 Flow Rate 2.0 2.0 05/04/20 05/04/20 05/04/20 05/04/20 19:00 20:00 20:04 20:04 Temp 98.0 98.0 Pulse 99 Resp 18 B/P (MAP) 112/50 (70) Pulse Ox 97 98 98 O2 Delivery Room Air Nasal Cannula Nasal Cannula Nasal Cannula O2 Flow Rate 2.0 2.0 2.0 05/04/20 05/04/20 05/05/20 05/05/20 20:44 23:00 00:14 03:10 Temp 98.2 98.6 98.2 98.6 Pulse 99 99 98 Resp 18 18 B/P (MAP) 112/50 115/61 (79) 118/40 (66) Pulse Ox 97 98 97 O2 Delivery Room Air Nasal Cannula Nasal Cannula O2 Flow Rate 2.0 2.0 05/05/20 05/05/20 05/05/20 05/05/20 07:00 07:28 08:00 08:01 Temp 97.6 97.6 Pulse 102 102 102 Resp 20 B/P (MAP) 113/50 (71) 113/50 113/50 Pulse Ox 97 99 O2 Delivery Nasal Cannula Room Air O2 Flow Rate 2.0 05/05/20 08:14 Resp 20 O2 Delivery Nasal Cannula O2 Flow Rate 2.0 Intake and Output 05/04/20 05/04/20 05/05/20 15:00 23:00 07:00 Intake Total 600 ml 200 ml Balance 600 ml 200 ml Justicifation of Admission Dx: Justifications for Admission: Justification of Admission Dx: Yes CAMILA MORELOS MD May 05, 2020 09:10
--- NOTE | 2020-05-05 10:39 | PDOC ---
PULMONARY PROGRESS NOTES Subjective n 02 still has sob, cough,/wheezing Vitals Vital Signs Date Time Temp Pulse Resp B/P (MAP) Pulse Ox O2 Delivery O2 Flow Rate FiO2 05/05/20 08:14 20 Nasal Cannula 2.0 05/05/20 08:01 102 113/50 05/05/20 07:28 97.6 99 97.6 ROS: No Nausea, No Chest Pain General: Alert, Oriented X4, No acute distress HEENT: Other (nc at perrl ) Lungs: Wheezing (has better air movement and wheezing) Cardiovascular: S1, S2 Abdomen: Soft, Non-tender Neuro Exam: Alert Extremities: No Edema Skin: Warm Labs Laboratory Tests Test 05/03/20 11:42 05/03/20 16:41 05/03/20 20:07 05/04/20 07:00 Glucose (Fingerstick) 206 mg/dL (70-99) 288 mg/dL (70-99) 175 mg/dL (70-99) 158 mg/dL (70-99) Test 05/04/20 11:15 05/04/20 11:21 05/04/20 16:37 05/04/20 19:46 White Blood Count 9.4 x10^3/uL (4.0-11.0) Red Blood Count 3.41 x10^6/uL (3.50-5.40) Hemoglobin 10.6 g/dL (12.0-15.5) Hematocrit 31.7 % (36.0-47.0) Mean Corpuscular Volume 93 fL (79-100) Mean Corpuscular Hemoglobin 31 pg (25-35) Mean Corpuscular Hemoglobin Concent 33 g/dL (31-37) Red Cell Distribution Width 14.9 % (11.5-14.5) Platelet Count 229 x10^3/uL (140-400) Sodium Level 139 mmol/L (136-145) Potassium Level 4.2 mmol/L (3.5-5.1) Chloride Level 101 mmol/L (98-107) Carbon Dioxide Level 34 mmol/L (21-32) Anion Gap 4 (6-14) Blood Urea Nitrogen 27 mg/dL (7-20) Creatinine 1.3 mg/dL (0.6-1.0) Estimated GFR (Cockcroft-Gault) 41.0 BUN/Creatinine Ratio 21 (6-20) Glucose Level 247 mg/dL (70-99) Calcium Level 8.8 mg/dL (8.5-10.1) Total Bilirubin 0.2 mg/dL (0.2-1.0) Aspartate Amino Transf (AST/SGOT) 16 U/L (15-37) Alanine Aminotransferase (ALT/SGPT) 23 U/L (14-59) Alkaline Phosphatase 62 U/L (46-116) Total Protein 6.3 g/dL (6.4-8.2) Albumin 2.6 g/dL (3.4-5.0) Albumin/Globulin Ratio 0.7 (1.0-1.7) Glucose (Fingerstick) 256 mg/dL (70-99) 114 mg/dL (70-99) 234 mg/dL (70-99) Test 05/05/20 07:40 Glucose (Fingerstick) 242 mg/dL (70-99) Laboratory Tests Test 05/04/20 11:15 05/04/20 11:21 05/04/20 16:37 05/04/20 19:46 White Blood Count 9.4 x10^3/uL (4.0-11.0) Red Blood Count 3.41 x10^6/uL (3.50-5.40) Hemoglobin 10.6 g/dL (12.0-15.5) Hematocrit 31.7 % (36.0-47.0) Mean Corpuscular Volume 93 fL (79-100) Mean Corpuscular Hemoglobin 31 pg (25-35) Mean Corpuscular Hemoglobin Concent 33 g/dL (31-37) Red Cell Distribution Width 14.9 % (11.5-14.5) Platelet Count 229 x10^3/uL (140-400) Sodium Level 139 mmol/L (136-145) Potassium Level 4.2 mmol/L (3.5-5.1) Chloride Level 101 mmol/L (98-107) Carbon Dioxide Level 34 mmol/L (21-32) Anion Gap 4 (6-14) Blood Urea Nitrogen 27 mg/dL (7-20) Creatinine 1.3 mg/dL (0.6-1.0) Estimated GFR (Cockcroft-Gault) 41.0 BUN/Creatinine Ratio 21 (-20) Glucose Level 247 mg/dL (70-99) Calcium Level 8.8 mg/dL (8.5-10.1) Total Bilirubin 0.2 mg/dL (0.2-1.0) Aspartate Amino Transf (AST/SGOT) 16 U/L (15-37) Alanine Aminotransferase (ALT/SGPT) 23 U/L (14-59) Alkaline Phosphatase 62 U/L (46-116) Total Protein 6.3 g/dL (6.4-8.2) Albumin 2.6 g/dL (3.4-5.0) Albumin/Globulin Ratio 0.7 (1.0-1.7) Glucose (Fingerstick) 256 mg/dL (70-99) 114 mg/dL (70-99) 234 mg/dL (70-99) Test 05/05/20 07:40 Glucose (Fingerstick) 242 mg/dL (70-99) Medications Active Scripts Medications Dose Route/Sig Max Daily Dose Days Date Category Allopurinol 100 Mg Tablet 1 Tab PO DAILY 05/01/20 Reported Trelegy Ellipta 100-62.5-25 (Fluticasone/Umeclidin/Vilanter) 1 Each Blst.w.dev 1 Each IH DAILY 03/17/20 Reported Prilosec Otc (Omeprazole Magnesium) 20 Mg Tablet.dr 40 Mg PO DAILY 03/17/20 Reported Duoneb 0.5-3(2.5) Mg/3 Ml (Albuterol/Ipratropium) 3 Ml Ampul.neb 3 Ml NEB Q4HRS 14 10/22/19 Rx Hydrocodone-Apap 5-325 (Hydrocodone Bit/Acetaminophen) 1 Tab Tablet 1 Tab PO PRN Q4HRS PRN 10/20/19 Rx Entresto 49 mg-51 mg Tablet (Sacubitril/Valsartan) 1 Each Tablet 49-51 Mg PO BID 07/30/19 Reported K-Tab ER (Potassium Chloride) 20 Meq Tablet.er 20 Meq PO DAILY 07/30/19 Reported Montelukast Sodium Tablet (Montelukast Sodium) 10 Mg Tablet 10 Mg PO HS 07/29/19 Reported Levocetirizine Dihydrochloride 5 Mg Tablet 5 Mg PO DAILY 07/29/19 Reported Amitriptyline Hcl 25 Mg Tablet 25 Mg PO QHS 07/29/19 Reported Tylenol (Acetaminophen) 325 Mg Tablet 650 Mg PO PRN Q4HRS PRN 07/29/19 Reported Aspir 81 (Aspirin) 81 Mg Tablet.dr 1 Tab PO DAILY 01/03/18 Reported Metoprolol Succinate ( Xl ) (Metoprolol Succinate) 25 Mg Tab.er.24h 25 Mg PO DAILY 01/03/18 Reported Vitamin D3 (Cholecalciferol (Vitamin D3)) 1,000 Unit Tablet 1 Tab PO DAILY 01/02/18 Reported Torsemide 20 Mg Tablet 1 Tab PO DAILY 01/02/18 Reported Gabapentin (Gabapentin) 100 Mg Capsule 100 Mg PO TID 01/02/18 Reported Ferrous Sulfate 325 Mg Tablet 1 Tab PO DAILY 09/23/17 Reported Daliresp (Roflumilast) 500 Mcg Tablet 1 Tab PO DAILY 09/23/17 Reported Atorvastatin Calcium 20 Mg Tablet 20 Mg PO HS 09/23/17 Reported Requip (Ropinirole Hcl) 1 Mg Tablet 3 Tab PO QHS 09/23/17 Reported Proair Hfa Inhaler (Albuterol Sulfate) 8.5 Gm Hfa.aer.ad 1 Puff INH PRN Q6HRS PRN 09/23/17 Reported Levothyroxine Sodium 50 Mcg Tablet 1 Tab PO DAILY 09/23/17 Reported Impression . IMPRESSION: 1. Dyspnea secondary to acute exacerbation of chronic obstructive pulmonary disease with persistent wheezing. 2. No signs of pneumonia. 3. Chronic compensated hypercapnia. 4. allergic rhinitis Plan . RECOMMENDATIONS: 1. The patient is still wheezing . hold metoprolol 2. Continue IV Solu-Medrol 60 q 6hrs. 3. pulmocort 4. Empiric antibiotics for now. 5. COVID test is negative, 6. BD q 4hrs cont ics, cont flonase. Discussed with RN, pt. We will follow along with you. IMELDA EASTMAN MD May 05, 2020 10:39
[2020-05-05 11:11] VITALS: BP 104/50
[2020-05-05] MEDS ORDERED: DEXTROSE 50% 25 GM / 50ML DISP.SYRIN. IV PRN (12:00)
[2020-05-05] MEDS: guaiFENesin DM 200MG/20MG 10 ML SYRUP PO PRN (12:02)
[2020-05-05] MEDS: INSULIN LISPRO 300 UNITS/3 ML VIAL. SQ SCH ×2 (12:30→18:02)
--- NOTE | 2020-05-05 13:36 | EKG ---
[facility] [address] [place] [address] Test Date: 2020-05-01 Test Time: 13:21:21 Pat Name: JAYCOB CRAWFORD Department: Room: Gender: F Service Provider: : 1955 Requested By: MARTHA MATIAS Order Number: [id number] Reading MD: Measurements Intervals [place] Rate: 167 P: MD: QRS: -142 QRSD: 120 T: 55 QT: 296 QTc: 493 Interpretive Statements IRREGULAR RHYTHM, NO P-WAVE FOUND VENTRICULAR PREMATURE COMPLEX(ES), BIGEMINY ABNORMAL RIGHT SUPERIOR AXIS DEVIATION CONSIDER RIGHT VENTRICULAR HYPERTROPHY QRS(T) CONTOUR ABNORMALITY CONSISTENT WITH HIGH LATERAL INFARCT PROBABLY OLD ABNORMAL ECG RI6.01 No previous ECG available for comparison
[2020-05-05 15:29] VITALS: BP 104/49
[2020-05-05] MEDS: PHENOL ORAL SPRAY 177ML BOTTLE. PO PRN (15:38)
[2020-05-05 19:00] VITALS: BP 112/53
[2020-05-05] MEDS: MONTELUKAST SODIUM 10 MG TABLET. PO SCH (20:37)
[2020-05-05] MEDS: rOPINIRole 1 MG TABLET. PO SCH (20:38)
[2020-05-05] MEDS: AMITRIPTYLINE HCL 25 MG TABLET. PO SCH (20:38)
[2020-05-05] MEDS: ATORVASTATIN CALCIUM 20 MG TABLET PO SCH (20:38)
[2020-05-05] MEDS: LACTOBACILLUS RHAMNOSUS GG 1 CAPSULE. PO SCH (20:38)
[2020-05-05 23:00] VITALS: BP 111/50
[2020-05-06] VITALS (7 sets, daily range): BP systolic 92–120; BP diastolic 38–55
[2020-05-06] MEDS: IPRATRPIUM/ALBUTEROL 0.5/2.5MG 3 ML NEBU. NEB SCH ×7 (03:23→22:55)
[2020-05-06] MEDS: PANTOPRAZOLE 40 MG TABLET.DR. PO SCH (05:44)
[2020-05-06] MEDS: LEVOTHYROXINE 50 MCG TABLET PO SCH (05:44)
[2020-05-06] MEDS: methylPREDNISolone SOD SUCC PF 40 MG/ML VIAL. IV SCH ×4 (05:44→23:00)
[2020-05-06] MEDS: BUDESONIDE 0.5 MG/2 ML NEBU. NEB SCH ×2 (07:21→20:20)
[2020-05-06] MEDS: FERROUS SULFATE 325 MG TABLET. PO SCH (08:26)
[2020-05-06] MEDS: ASPIRIN ENTERIC COATED 81 MG TABLET.DR. PO SCH (08:26)
[2020-05-06] MEDS: PHENOL ORAL SPRAY 177ML BOTTLE. PO PRN ×2 (08:26→11:58)
[2020-05-06] MEDS: ROFLUMILAST 500 MCG TABLET. PO SCH (08:27)
[2020-05-06] MEDS: SACUBITRIL/VALSARTAN 49/51MG TABLET. PO SCH ×2 (08:27→20:35)
[2020-05-06] MEDS: POTASSIUM CHLORIDE 20 MEQ TABLET.ER. PO SCH (08:27)
[2020-05-06] MEDS: TORSEMIDE 20 MG TABLET. PO SCH (08:28)
[2020-05-06] MEDS: BENZONATATE 100 MG CAPSULE. PO SCH ×3 (08:28→20:36)
[2020-05-06] MEDS: ALLOPURINOL 100 MG TABLET. PO SCH (08:28)
[2020-05-06] MEDS: HYDROcodone/APAP 5/325MG 1 TAB TABLET PO PRN ×2 (08:28→12:20)
[2020-05-06] MEDS: LACTOBACILLUS RHAMNOSUS GG 1 CAPSULE. PO SCH ×2 (08:28→20:36)
[2020-05-06] MEDS: CHOLECALCIFEROL (VITAMIN D3) 1,000 UNIT TABLET PO SCH (08:28)
[2020-05-06] MEDS: CETIRIZINE HCL 10 MG TABLET. PO SCH (08:28)
[2020-05-06] MEDS: AZITHROMYCIN 250 MG TABLET. PO SCH (08:28)
[2020-05-06] MEDS: GABAPENTIN 100 MG CAPSULE. PO SCH ×3 (08:29→20:36)
[2020-05-06] MEDS: FLUTICASONE 50MCG/NASAL SPRAY 16GM BOTTLE. NS SCH (08:29)
[2020-05-06] MEDS: INSULIN LISPRO 300 UNITS/3 ML VIAL. SQ SCH ×3 (08:33→17:44)
--- NOTE | 2020-05-06 09:31 | NUR ---
SW following. Discussed with RN, pt from home, IV solumedrol - potentially could discharge home today. SW will continue to follow.
--- NOTE | 2020-05-06 11:25 | PDOC ---
PROGRESS NOTES Date of Service: DATE: 05/06/20 TIME: 11:25 Chief Complaint Chief Complaint impression Respiratory failure, suspect chronic obstructive pulmonary disease exacerbation Probable concomitant pneumonia COVID-19 results neg COPD CAD CHF Diabetes-Type II High Cholesterol Hypertension Hypothyroid 05/06 wheezing slow to resolve, discussed need for smoking cessation in room, present plan admit consult pulmonary med o2 support History of Present Illness History of Present Illness 05/05/20. cough she reports that her torsemide dose had been increased by Dr. Driscoll Continue IV Solu-Medrol 60 q 6hrs. has less wheezing hold metoprolol. Empiric antibiotics D/W RN 05/03/20. cont current, still weak, wheezing, plan OOB 05/02/20 Patient seen and examined - covid was negative Patient is in moderate distress with audible wheezing Discussed with RN Chart reviewed Vitals Vitals Vital Signs Date Time Temp Pulse Resp B/P (MAP) Pulse Ox O2 Delivery O2 Flow Rate FiO2 05/06/20 11:00 98.3 78 18 92/38 (56) 96 Nasal Cannula 2.0 98.3 Physical Exam General: Alert, Oriented X3, Cooperative, No acute distress Heart: Regular rate, Normal S1 Lungs: Wheezing (has better air movement and wheezing) Abdomen: Soft, No tenderness Extremities: No clubbing, No cyanosis, No edema Skin: No rashes, No significant lesion Labs LABS Laboratory Tests Test 05/05/20 11:28 05/05/20 16:15 05/05/20 20:49 05/06/20 07:42 Glucose (Fingerstick) 209 mg/dL (70-99) 264 mg/dL (70-99) 183 mg/dL (70-99) 166 mg/dL (70-99) Assessment and Plan Assessmemt and Plan Problems Medical Problems: (1) COPD exacerbation Status: Acute Comment Review of Relevant I have reviewed the following items jon (where applicable) has been applied. Labs Laboratory Tests Test 05/04/20 16:37 05/04/20 19:46 05/05/20 07:40 05/05/20 11:28 Glucose (Fingerstick) 114 mg/dL (70-99) 234 mg/dL (70-99) 242 mg/dL (70-99) 209 mg/dL (70-99) Test 05/05/20 16:15 05/05/20 20:49 05/06/20 07:42 Glucose (Fingerstick) 264 mg/dL (70-99) 183 mg/dL (70-99) 166 mg/dL (70-99) Laboratory Tests Test 05/05/20 11:28 05/05/20 16:15 05/05/20 20:49 05/06/20 07:42 Glucose (Fingerstick) 209 mg/dL (70-99) 264 mg/dL (70-99) 183 mg/dL (70-99) 166 mg/dL (70-99) Medications Current Medications Methylprednisolone Sodium Succinate (SOLU-Medrol 125MG VIAL) 125 mg 1X ONCE IV Last administered on 05/01/20at 14:10; Start 05/01/20 at 13:30; Stop 05/01/20 at 13:31; Status DC Albuterol Sulfate (Ventolin Neb Soln) 10 mg 1X ONCE CONT NEB Last administered on 05/01/20at 13:47; Start 05/01/20 at 13:30; Stop 05/01/20 at 13:31; Status DC Fentanyl Citrate (Fentanyl 2ml Vial) 50 mcg 1X ONCE IVP Last administered on 05/01/20at 14:10; Start 05/01/20 at 13:45; Stop 05/01/20 at 13:51; Status DC Sodium Chloride 1,000 ml @ 1,000 mls/hr 1X ONCE IV Last administered on 05/01/20at 14:12; Start 05/01/20 at 14:15; Stop 05/01/20 at 15:14; Status DC Azithromycin 250 ml @ 250 mls/hr 1X ONCE IV Last administered on 05/01/20at 14:26; Start 05/01/20 at 14:15; Stop 05/01/20 at 15:14; Status DC Ondansetron HCl (Zofran) 4 mg PRN Q8HRS PRN IV NAUSEA/VOMITING; Start 05/01/20 at 14:45; Stop 05/02/20 at 14:44; Status DC Fentanyl Citrate (Fentanyl 2ml Vial) 50 mcg PRN Q1HR PRN IV PAIN Last administered on 05/01/20at 16:12; Start 05/01/20 at 14:45; Stop 05/02/20 at 14:44; Status DC Acetaminophen (Tylenol) 650 mg PRN Q4HRS PRN PO MILD PAIN 1-3 Last administered on 05/04/20 20:45; Start 05/01/20 at 20:45 Albuterol Sulfate (Ventolin Neb Soln) 2.5 mg PRN Q6HRS PRN INH SHORTNESS OF BREATH; Start 05/01/20 at 20:45 Allopurinol (Zyloprim) 100 mg DAILY PO Last administered on 05/06/20 08:28; S tart 05/02/20 at 09:00 Amitriptyline HCl (Elavil) 25 mg QHS PO Last administered on 05/05/20 20:38; Start 05/01/20 at 21:00 Aspirin (Ecotrin) 81 mg DAILY PO Last administered on 05/06/20 08:26; Start 05/02/20 at 09:00 Atorvastatin Calcium (Lipitor) 20 mg HS PO Last administered on 05/05/20 20:38; Start 05/01/20 at 21:00 Vitamin D (Vitamin D3) 1,000 unit DAILY PO Last administered on 05/06/20 08:28; Start 05/02/20 at 09:00 Ferrous Sulfate (Feosol) 325 mg DAILY PO Last administered on 05/06/20 08:26; Start 05/02/20 at 09:00 Gabapentin (Neurontin) 100 mg TID PO Last administered on 05/06/20 08:29; Start 05/01/20 at 21:00 Acetaminophen/ Hydrocodone Bitart (Lortab 5/325) 1 tab PRN Q4HRS PRN PO MODERATE PAIN 4-6 Last administered on 05/06/20 08:28; Start 05/01/20 at 20:45 Albuterol/ Ipratropium (Duoneb) 3 ml Q4HRS W/A NEB ; Start 05/01/20 at 22:00; Stop 05/02/20 at 10:59; Status DC Levothyroxine Sodium (Synthroid) 50 mcg DAILY06 PO Last administered on 05/06/20 05:44; Start 05/02/20 at 06:00 Metoprolol Succinate (Toprol Xl) 25 mg DAILY PO Last administered on 05/05/20 08:01; Start 05/02/20 at 09:00; Stop 05/05/20 at 09:58; Status DC Montelukast Sodium (Singulair) 10 mg HS PO Last administered on 05/05/20 20:37; Start 05/01/20 at 21:00 Roflumilast (Daliresp) 500 mcg DAILY PO Last administered on 05/06/20 08:27; Start 05/02/20 at 09:00 Ropinirole HCl (Requip) 3 mg QHS PO Last administered on 05/05/20 20:38; Start 05/01/20 at 21:00 Sacubitril/ Valsartan (Entresto 49 Mg-51 Mg) 1 tab BID PO Last administered on 05/06/20 08:27; Start 05/01/20 at 21:00 Torsemide (Demadex) 20 mg DAILY PO Last administered on 05/03/20 08:43; Start 05/02/20 at 09:00; Stop 05/04/20 at 09:55; Status DC Budesonide (Pulmicort) 0.5 mg RTBID NEB Last administered on 05/06/20 07:21; S tart 05/02/20 at 08:00 Cetirizine HCl (ZyrTEC) 10 mg DAILY PO Last administered on 05/06/20 08:28; Start 05/02/20 at 09:00 Pantoprazole Sodium (Protonix) 40 mg DAILYAC PO Last administered on 05/06/20 05:44; Start 05/02/20 at 07:30 Potassium Chloride (Klor-Con) 20 meq DAILYWBKFT PO Last administered on 05/06/20 08:27; Start 05/02/20 at 08:00 Methylprednisolone Sodium Succinate (SOLU-Medrol 40MG VIAL) 60 mg Q6HRS IV Last administered on 05/06/20 05:44; Start 05/02/20 at 05:00 Azithromycin 500 mg/Sodium Chloride 250 ml @ 250 mls/hr Q24H IV Last administered on 05/03/20 11:59; Start 05/02/20 at 10:00; Stop 05/03/20 at 12:58; Status DC Albuterol/ Ipratropium (Combivent Respimat 20-100 Mcg) 1 puff Q4HRS W/A INH Last administered on 05/02/20at 17:39; Start 05/02/20 at 14:00; Stop 05/02/20 at 18:39; Status DC Albuterol/ Ipratropium (Duoneb) 3 ml Q4HRS NEB Last administered on 05/05/20at 00:13; Start 05/02/20 at 20:00; Stop 05/05/20 at 05:24; Status DC Fluticasone Propionate (Flonase) 2 spray DAILY NS Last administered on 05/06/20at 08:29; Start 05/03/20 at 12:00 Lactobacillus Rhamnosus (Culturelle) 1 cap BID PO ; Start 05/03/20 at 21:00; Status Cancel Azithromycin (Zithromax) 500 mg DAILY PO Last administered on 05/06/20 08:28; Start 05/04/20 at 09:00 Benzonatate (Tessalon Perle) 100 mg [id number] PO Last administered on 05/06/20at 08:28; Start 05/04/20 at 10:00 Guaifenesin (Robitussin Dm) 10 ml PRN Q6HRS PRN PO COUGH Last administered on 05/05/20 12:02; Start 05/04/20 at 10:00 Torsemide (Demadex) 40 mg DAILY PO Last administered on 05/04/20at 10:21; Start 05/05/20 at 09:00; Stop 05/04/20 at 12:45; Status DC Torsemide (Demadex) 20 mg 1X ONCE PO ; Start 05/04/20 at 10:15; Stop 05/04/20 at 10:16; Status DC Torsemide (Demadex) 40 mg DAILY PO Last administered on 05/06/20 08:28; Start 05/05/20 at 09:00 Diphenhydramine HCl (Benadryl) 25 mg PRN Q6HRS PRN IVP ITCHING Last administered on 05/04/20at 21:31; Start 05/04/20 at 21:30 Albuterol/ Ipratropium (Duoneb) 3 ml RTQID NEB Last administered on 05/05/20at 06:59; Start 05/05/20 at 08:00; Stop 05/05/20 at 10:00; Status DC Albuterol/ Ipratropium (Duoneb) 3 ml Q4HRS NEB Last administered on 05/06/20at 10:51; Start 05/05/20 at 10:00 Lactobacillus Rhamnosus (Culturelle) 1 cap BID PO Last administered on 05/06/20at 08:28; Start 05/05/20 at 21:00 Phenol (Chloraseptic) 1 spray PRN Q2HR PRN PO SORE THROAT Last administered on 05/06/20at 08:26; Start 05/05/20 at 12:00 Insulin Human Lispro (HumaLOG) 0-7 UNITS TIDWMEALS SQ Last administered on 05/06/20at 08:33; Start 05/05/20 at 12:30 Dextrose (Dextrose 50%-Water Syringe) 12.5 gm PRN Q15MIN PRN IV SEE COMMENTS; Start 05/05/20 at 12:00 Active Scripts Active Duoneb 0.5-3(2.5) Mg/3 Ml (Albuterol/Ipratropium) 3 Ml Ampul.neb 3 Ml NEB Q4HRS 14 Days Hydrocodone-Apap 5-325 (Hydrocodone Bit/Acetaminophen) 1 Tab Tablet 1 Tab PO PRN Q4HRS PRN Reported Allopurinol 100 Mg Tablet 1 Tab PO DAILY Trelegy Ellipta 100-62.5-25 (Fluticasone/Umeclidin/Vilanter) 1 Each Blst.w.dev 1 Each IH DAILY Prilosec Otc (Omeprazole Magnesium) 20 Mg Tablet.dr 40 Mg PO DAILY Entresto 49 mg-51 mg Tablet (Sacubitril/Valsartan) 1 Each Tablet 49-51 Mg PO BID K-Tab ER (Potassium Chloride) 20 Meq Tablet.er 20 Meq PO DAILY Montelukast Sodium Tablet (Montelukast Sodium) 10 Mg Tablet 10 Mg PO HS Levocetirizine Dihydrochloride 5 Mg Tablet 5 Mg PO DAILY Amitriptyline Hcl 25 Mg Tablet 25 Mg PO QHS Tylenol (Acetaminophen) 325 Mg Tablet 650 Mg PO PRN Q4HRS PRN Aspir 81 (Aspirin) 81 Mg Tablet.dr 1 Tab PO DAILY Metoprolol Succinate ( Xl ) (Metoprolol Succinate) 25 Mg Tab.er.24h 25 Mg PO DAILY Vitamin D3 (Cholecalciferol (Vitamin D3)) 1,000 Unit Tablet 1 Tab PO DAILY Torsemide 20 Mg Tablet 1 Tab PO DAILY Gabapentin (Gabapentin) 100 Mg Capsule 100 Mg PO TID Ferrous Sulfate 325 Mg Tablet 1 Tab PO DAILY Daliresp (Roflumilast) 500 Mcg Tablet 1 Tab PO DAILY Atorvastatin Calcium 20 Mg Tablet 20 Mg PO HS Requip (Ropinirole Hcl) 1 Mg Tablet 3 Tab PO QHS Proair Hfa Inhaler (Albuterol Sulfate) 8.5 Gm Hfa.aer.ad 1 Puff INH PRN Q6HRS PRN Levothyroxine Sodium 50 Mcg Tablet 1 Tab PO DAILY Vitals/I & O Vital Sign - Last 24 Hours 05/05/20 05/05/20 05/05/20 05/05/20 12:03 13:03 15:21 15:29 Temp 97.9 97.9 Pulse 100 Resp 20 20 18 B/P (MAP) 104/49 (67) Pulse Ox 97 97 97 97 O2 Delivery Nasal Cannula Nasal Cannula Nasal Cannula Room Air O2 Flow Rate 2.0 2.0 2.0 05/05/20 05/05/20 05/05/20 05/05/20 19:00 19:35 19:59 20:39 Temp 98.2 98.2 Pulse 95 90 Resp 18 B/P (MAP) 112/53 (72) 114/52 Pulse Ox 96 97 O2 Delivery Room Air Nasal Cannula Nasal Cannula O2 Flow Rate 2.0 2.0 05/05/20 05/06/20 05/06/20 05/06/20 23:00 03:00 07:00 07:21 Temp 98.5 98.5 97.9 98.5 98.5 97.9 Pulse 94 78 70 Resp 18 19 18 B/P (MAP) 111/50 (70) 101/40 (60) 120/55 (76) Pulse Ox 96 98 96 97 O2 Delivery Nasal Cannula Nasal Cannula Nasal Cannula Nasal Cannula O2 Flow Rate 2.0 2.0 2.0 2.0 05/06/20 05/06/20 05/06/20 05/06/20 07:25 08:27 08:28 10:51 Pulse 70 B/P (MAP) 120/55 O2 Delivery Nasal Cannula Nasal Cannula Nasal Cannula O2 Flow Rate 2.0 2.0 2.0 05/06/20 11:00 Temp 98.3 98.3 Pulse 78 Resp 18 B/P (MAP) 92/38 (56) Pulse Ox 96 O2 Delivery Nasal Cannula O2 Flow Rate 2.0 Intake and Output 05/05/20 05/05/20 05/06/20 15:00 23:00 07:00 Intake Total 500 ml 700 ml 800 ml Balance 500 ml 700 ml 800 ml Justicifation of Admission Dx: Justifications for Admission: Justification of Admission Dx: Yes CAMILA MORELOS MD May 06, 2020 11:25
[2020-05-06] MEDS: AMITRIPTYLINE HCL 25 MG TABLET. PO SCH (20:35)
[2020-05-06] MEDS: MONTELUKAST SODIUM 10 MG TABLET. PO SCH (20:35)
[2020-05-06] MEDS: rOPINIRole 1 MG TABLET. PO SCH (20:36)
[2020-05-06] MEDS: ATORVASTATIN CALCIUM 20 MG TABLET PO SCH (20:36)
[2020-05-07] VITALS (7 sets, daily range): BP systolic 91–115; BP diastolic 49–57
[2020-05-07] MEDS: IPRATRPIUM/ALBUTEROL 0.5/2.5MG 3 ML NEBU. NEB SCH ×5 (02:33→19:56)
[2020-05-07] MEDS: methylPREDNISolone SOD SUCC PF 40 MG/ML VIAL. IV SCH ×4 (05:01→23:57)
[2020-05-07] MEDS: LEVOTHYROXINE 50 MCG TABLET PO SCH (05:01)
[2020-05-07] MEDS: BUDESONIDE 0.5 MG/2 ML NEBU. NEB SCH ×2 (07:26→19:56)
[2020-05-07] MEDS: PHENOL ORAL SPRAY 177ML BOTTLE. PO PRN (08:38)
[2020-05-07] MEDS: FLUTICASONE 50MCG/NASAL SPRAY 16GM BOTTLE. NS SCH (08:38)
[2020-05-07] MEDS: HYDROcodone/APAP 5/325MG 1 TAB TABLET PO PRN ×2 (08:39→14:45)
[2020-05-07] MEDS: FERROUS SULFATE 325 MG TABLET. PO SCH (08:39)
[2020-05-07] MEDS: CETIRIZINE HCL 10 MG TABLET. PO SCH (08:39)
[2020-05-07] MEDS: TORSEMIDE 20 MG TABLET. PO SCH (08:39)
[2020-05-07] MEDS: CHOLECALCIFEROL (VITAMIN D3) 1,000 UNIT TABLET PO SCH (08:39)
[2020-05-07] MEDS: POTASSIUM CHLORIDE 20 MEQ TABLET.ER. PO SCH (08:39)
[2020-05-07] MEDS: BENZONATATE 100 MG CAPSULE. PO SCH ×3 (08:40→21:07)
[2020-05-07] MEDS: ASPIRIN ENTERIC COATED 81 MG TABLET.DR. PO SCH (08:40)
[2020-05-07] MEDS: ROFLUMILAST 500 MCG TABLET. PO SCH (08:40)
[2020-05-07] MEDS: LACTOBACILLUS RHAMNOSUS GG 1 CAPSULE. PO SCH ×2 (08:40→21:08)
[2020-05-07] MEDS: PANTOPRAZOLE 40 MG TABLET.DR. PO SCH (08:40)
[2020-05-07] MEDS: GABAPENTIN 100 MG CAPSULE. PO SCH ×3 (08:40→21:07)
[2020-05-07] MEDS: ALLOPURINOL 100 MG TABLET. PO SCH (08:40)
[2020-05-07] MEDS: SACUBITRIL/VALSARTAN 49/51MG TABLET. PO SCH ×2 (08:40→21:08)
[2020-05-07] MEDS: AZITHROMYCIN 250 MG TABLET. PO SCH (08:40)
[2020-05-07] MEDS: INSULIN LISPRO 300 UNITS/3 ML VIAL. SQ SCH ×3 (08:45→17:29)
--- NOTE | 2020-05-07 09:20 | PDOC ---
PROGRESS NOTES Date of Service: DATE: 05/07/20 TIME: 09:20 Chief Complaint Chief Complaint impression Respiratory failure, suspect chronic obstructive pulmonary disease exacerbation Probable concomitant pneumonia COVID-19 results neg COPD CAD CHF Diabetes-Type II High Cholesterol Hypertension Hypothyroid 05/06 wheezing slow to resolve, discussed need for smoking cessation in room, present 05/07 WHEEZING SLOW TO RESOLVE to do duonebs q 4 hrs at night as well plan admit consult pulmonary med o2 support History of Present Illness History of Present Illness 05/05/20. cough she reports that her torsemide dose had been increased by Dr. Driscoll Continue IV Solu-Medrol 60 q 6hrs. has less wheezing hold metoprolol. Empiric antibiotics D/W RN 05/03/20. cont current, still weak, wheezing, plan OOB 05/02/20 Patient seen and examined - covid was negative Patient is in moderate distress with audible wheezing Discussed with RN Chart reviewed Vitals Vitals Vital Signs Date Time Temp Pulse Resp B/P (MAP) Pulse Ox O2 Delivery O2 Flow Rate FiO2 05/07/20 08:40 79 112/54 05/07/20 08:39 Nasal Cannula 2.0 05/07/20 07:24 98 05/07/20 07:00 97.7 18 97.7 Physical Exam General: Alert, Oriented X3, Cooperative, No acute distress Heart: Regular rate, Normal S1 Lungs: Wheezing (has better air movement and wheezing) Abdomen: Soft, No tenderness Extremities: No clubbing, No cyanosis, No edema Skin: No rashes, No significant lesion Labs LABS Laboratory Tests Test 05/06/20 11:27 05/06/20 16:42 05/06/20 20:15 05/07/20 07:16 Glucose (Fingerstick) 249 mg/dL (70-99) 290 mg/dL (70-99) 276 mg/dL (70-99) 185 mg/dL (70-99) Assessment and Plan Assessmemt and Plan Problems Medical Problems: (1) COPD exacerbation Status: Acute Comment Review of Relevant I have reviewed the following items jon (where applicable) has been applied. Labs Laboratory Tests Test 05/05/20 11:28 05/05/20 16:15 05/05/20 20:49 05/06/20 07:42 Glucose (Fingerstick) 209 mg/dL (70-99) 264 mg/dL (70-99) 183 mg/dL (70-99) 166 mg/dL (70-99) Test 05/06/20 11:27 05/06/20 16:42 05/06/20 20:15 05/07/20 07:16 Glucose (Fingerstick) 249 mg/dL (70-99) 290 mg/dL (70-99) 276 mg/dL (70-99) 185 mg/dL (70-99) Laboratory Tests Test 05/06/20 11:27 05/06/20 16:42 05/06/20 20:15 05/07/20 07:16 Glucose (Fingerstick) 249 mg/dL (70-99) 290 mg/dL (70-99) 276 mg/dL (70-99) 185 mg/dL (70-99) Medications Current Medications Methylprednisolone Sodium Succinate (SOLU-Medrol 125MG VIAL) 125 mg 1X ONCE IV Last administered on 05/01/20at 14:10; Start 05/01/20 at 13:30; Stop 05/01/20 at 13:31; Status DC Albuterol Sulfate (Ventolin Neb Soln) 10 mg 1X ONCE CONT NEB Last administered on 05/01/20at 13:47; Start 05/01/20 at 13:30; Stop 05/01/20 at 13:31; Status DC Fentanyl Citrate (Fentanyl 2ml Vial) 50 mcg 1X ONCE IVP Last administered on 05/01/20at 14:10; Start 05/01/20 at 13:45; Stop 05/01/20 at 13:51; Status DC Sodium Chloride 1,000 ml @ 1,000 mls/hr 1X ONCE IV Last administered on 05/01/20at 14:12; Start 05/01/20 at 14:15; Stop 05/01/20 at 15:14; Status DC Azithromycin 250 ml @ 250 mls/hr 1X ONCE IV Last administered on 05/01/20at 14:26; Start 05/01/20 at 14:15; Stop 05/01/20 at 15:14; Status DC Ondansetron HCl (Zofran) 4 mg PRN Q8HRS PRN IV NAUSEA/VOMITING; Start 05/01/20 at 14:45; Stop 05/02/20 at 14:44; Status DC Fentanyl Citrate (Fentanyl 2ml Vial) 50 mcg PRN Q1HR PRN IV PAIN Last administered on 05/01/20 16:12; Start 05/01/20 at 14:45; Stop 05/02/20 at 14:44; Status DC Acetaminophen (Tylenol) 650 mg PRN Q4HRS PRN PO MILD PAIN 1-3 Last administered on 05/04/20 20:45; Start 05/01/20 at 20:45 Albuterol Sulfate (Ventolin Neb Soln) 2.5 mg PRN Q6HRS PRN INH SHORTNESS OF BREATH; Start 05/01/20 at 20:45 Allopurinol (Zyloprim) 100 mg DAILY PO Last administered on 05/07/20 08:40; Start 05/02/20 at 09:00 Amitriptyline HCl (Elavil) 25 mg QHS PO Last administered on 05/06/20 20:35; Start 05/01/20 at 21:00 Aspirin (Ecotrin) 81 mg DAILY PO Last administered on 05/07/20 08:40; Start 05/02/20 at 09:00 Atorvastatin Calcium (Lipitor) 20 mg HS PO Last administered on 05/06/20 20:36; Start 05/01/20 at 21:00 Vitamin D (Vitamin D3) 1,000 unit DAILY PO Last administered on 05/07/20 08:39; Start 05/02/20 at 09:00 Ferrous Sulfate (Feosol) 325 mg DAILY PO Last administered on 05/07/20 08:39; Start 05/02/20 at 09:00 Gabapentin (Neurontin) 100 mg TID PO Last administered on 05/07/20 08:40; Start 05/01/20 at 21:00 Acetaminophen/ Hydrocodone Bitart (Lortab 5/325) 1 tab PRN Q4HRS PRN PO MODERATE PAIN 4-6 Last administered on 05/07/20 08:39; Start 05/01/20 at 20:45 Albuterol/ Ipratropium (Duoneb) 3 ml Q4HRS W/A NEB ; Start 05/01/20 at 22:00; Stop 05/02/20 at 10:59; Status DC Levothyroxine Sodium (Synthroid) 50 mcg DAILY06 PO Last administered on 05/07/20 05:01; Start 05/02/20 at 06:00 Metoprolol Succinate (Toprol Xl) 25 mg DAILY PO Last administered on 05/05/20 08:01; Start 05/02/20 at 09:00; Stop 05/05/20 at 09:58; Status DC Montelukast Sodium (Singulair) 10 mg HS PO Last administered on 05/06/20 20:35; Start 05/01/20 at 21:00 Roflumilast (Daliresp) 500 mcg DAILY PO Last administered on 05/07/20 08:40; Start 05/02/20 at 09:00 Ropinirole HCl (Requip) 3 mg QHS PO Last administered on 05/06/20 20:36; Start 05/01/20 at 21:00 Sacubitril/ Valsartan (Entresto 49 Mg-51 Mg) 1 tab BID PO Last administered on 05/07/20 08:40; Start 05/01/20 at 21:00 Torsemide (Demadex) 20 mg DAILY PO Last administered on 05/03/20at 08:43; Start 05/02/20 at 09:00; Stop 05/04/20 at 09:55; Status DC Budesonide (Pulmicort) 0.5 mg RTBID NEB Last administered on 05/07/20 07:26; Start 05/02/20 at 08:00 Cetirizine HCl (ZyrTEC) 10 mg DAILY PO Last administered on 05/07/20 08:39; Start 05/02/20 at 09:00 Pantoprazole Sodium (Protonix) 40 mg DAILYAC PO Last administered on 05/07/20 08:40; Start 05/02/20 at 07:30 Potassium Chloride (Klor-Con) 20 meq DAILYWBKFT PO Last administered on 05/07/20 08:39; Start 05/02/20 at 08:00 Methylprednisolone Sodium Succinate (SOLU-Medrol 40MG VIAL) 60 mg Q6HRS IV Last administered on 05/07/20 05:01; Start 05/02/20 at 05:00 Azithromycin 500 mg/Sodium Chloride 250 ml @ 250 mls/hr Q24H IV Last administered on 05/03/20at 11:59; Start 05/02/20 at 10:00; Stop 05/03/20 at 12:58; Status DC Albuterol/ Ipratropium (Combivent Respimat 20-100 Mcg) 1 puff Q4HRS W/A INH Last administered on 05/02/20at 17:39; Start 05/02/20 at 14:00; Stop 05/02/20 at 18:39; Status DC Albuterol/ Ipratropium (Duoneb) 3 ml Q4HRS NEB Last administered on 05/05/20at 00:13; Start 05/02/20 at 20:00; Stop 05/05/20 at 05:24; Status DC Fluticasone Propionate (Flonase) 2 spray DAILY NS Last administered on 05/07/20at 08:38; Start 05/03/20 at 12:00 Lactobacillus Rhamnosus (Culturelle) 1 cap BID PO ; Start 05/03/20 at 21:00; Status Cancel Azithromycin (Zithromax) 500 mg DAILY PO Last administered on 05/07/20at 08:40; Start 05/04/20 at 09:00 Benzonatate (Tessalon Perle) 100 mg [id number] PO Last administered on 05/07/20at 08:40; Start 05/04/20 at 10:00 Guaifenesin (Robitussin Dm) 10 ml PRN Q6HRS PRN PO COUGH Last administered on 05/05/20at 12:02; Start 05/04/20 at 10:00 Torsemide (Demadex) 40 mg DAILY PO Last administered on 05/04/20at 10:21; Start 05/05/20 at 09:00; Stop 05/04/20 at 12:45; Status DC Torsemide (Demadex) 20 mg 1X ONCE PO ; Start 05/04/20 at 10:15; Stop 05/04/20 at 10:16; Status DC Torsemide (Demadex) 40 mg DAILY PO Last administered on 05/07/20at 08:39; Start 05/05/20 at 09:00 Diphenhydramine HCl (Benadryl) 25 mg PRN Q6HRS PRN IVP ITCHING Last administered on 05/04/20at 21:31; Start 05/04/20 at 21:30 Albuterol/ Ipratropium (Duoneb) 3 ml RTQID NEB Last administered on 05/05/20at 06:59; Start 05/05/20 at 08:00; Stop 05/05/20 at 10:00; Status DC Albuterol/ Ipratropium (Duoneb) 3 ml Q4HRS NEB Last administered on 05/07/20at 07:26; Start 05/05/20 at 10:00 Lactobacillus Rhamnosus (Culturelle) 1 cap BID PO Last administered on 05/07/20at 08:40; Start 05/05/20 at 21:00 Phenol (Chloraseptic) 1 spray PRN Q2HR PRN PO SORE THROAT Last administered on 05/07/20at 08:38; Start 05/05/20 at 12:00 Insulin Human Lispro (HumaLOG) 0-7 UNITS TIDWMEALS SQ Last administered on 05/07/20at 08:45; Start 05/05/20 at 12:30 Dextrose (Dextrose 50%-Water Syringe) 12.5 gm PRN Q15MIN PRN IV SEE COMMENTS; Start 05/05/20 at 12:00 Active Scripts Active Duoneb 0.5-3(2.5) Mg/3 Ml (Albuterol/Ipratropium) 3 Ml Ampul.neb 3 Ml NEB Q4HRS 14 Days Hydrocodone-Apap 5-325 (Hydrocodone Bit/Acetaminophen) 1 Tab Tablet 1 Tab PO PRN Q4HRS PRN Reported Allopurinol 100 Mg Tablet 1 Tab PO DAILY Trelegy Ellipta 100-62.5-25 (Fluticasone/Umeclidin/Vilanter) 1 Each Blst.w.dev 1 Each IH DAILY Prilosec Otc (Omeprazole Magnesium) 20 Mg Tablet.dr 40 Mg PO DAILY Entresto 49 mg-51 mg Tablet (Sacubitril/Valsartan) 1 Each Tablet 49-51 Mg PO BID K-Tab ER (Potassium Chloride) 20 Meq Tablet.er 20 Meq PO DAILY Montelukast Sodium Tablet (Montelukast Sodium) 10 Mg Tablet 10 Mg PO HS Levocetirizine Dihydrochloride 5 Mg Tablet 5 Mg PO DAILY Amitriptyline Hcl 25 Mg Tablet 25 Mg PO QHS Tylenol (Acetaminophen) 325 Mg Tablet 650 Mg PO PRN Q4HRS PRN Aspir 81 (Aspirin) 81 Mg Tablet.dr 1 Tab PO DAILY Metoprolol Succinate ( Xl ) (Metoprolol Succinate) 25 Mg Tab.er.24h 25 Mg PO DAILY Vitamin D3 (Cholecalciferol (Vitamin D3)) 1,000 Unit Tablet 1 Tab PO DAILY Torsemide 20 Mg Tablet 1 Tab PO DAILY Gabapentin (Gabapentin) 100 Mg Capsule 100 Mg PO TID Ferrous Sulfate 325 Mg Tablet 1 Tab PO DAILY Daliresp (Roflumilast) 500 Mcg Tablet 1 Tab PO DAILY Atorvastatin Calcium 20 Mg Tablet 20 Mg PO HS Requip (Ropinirole Hcl) 1 Mg Tablet 3 Tab PO QHS Proair Hfa Inhaler (Albuterol Sulfate) 8.5 Gm Hfa.aer.ad 1 Puff INH PRN Q6HRS PRN Levothyroxine Sodium 50 Mcg Tablet 1 Tab PO DAILY Vitals/I & O Vital Sign - Last 24 Hours 05/06/20 05/06/20 05/06/20 05/06/20 10:51 11:00 12:20 13:37 Temp 98.3 98.3 Pulse 78 Resp 18 B/P (MAP) 92/38 (56) Pulse Ox 96 O2 Delivery Nasal Cannula Nasal Cannula Nasal Cannula Nasal Cannula O2 Flow Rate 2.0 2.0 2.0 2.0 05/06/20 05/06/20 05/06/20 05/06/20 15:06 15:24 19:33 19:51 Temp 98.7 97.6 98.7 97.6 Pulse 63 93 Resp 18 16 B/P (MAP) 99/43 (61) 97/52 (67) Pulse Ox 97 99 O2 Delivery Nasal Cannula Nasal Cannula Nasal Cannula Nasal Cannula O2 Flow Rate 2.0 2.0 2.0 2.0 05/06/20 05/06/20 05/06/20 05/06/20 20:23 20:35 20:38 22:50 Temp 98.6 98.6 Pulse 93 90 Resp 18 B/P (MAP) 97/52 100/42 (61) 98/49 (65) Pulse Ox 97 97 O2 Delivery Nasal Cannula Nasal Cannula O2 Flow Rate 2.0 2.5 05/06/20 05/07/20 05/07/20 05/07/20 22:57 03:59 07:00 07:10 Temp 98.0 97.7 98.0 97.7 Pulse 88 79 Resp 16 18 B/P (MAP) 107/49 (68) 112/54 (73) Pulse Ox 95 96 96 O2 Delivery Nasal Cannula Nasal Cannula Room Air Nasal Cannula O2 Flow Rate 2.0 2.0 2.0 2.0 05/07/20 05/07/20 05/07/20 07:24 08:39 08:40 Pulse 79 B/P (MAP) 112/54 Pulse Ox 98 O2 Delivery Nasal Cannula Nasal Cannula O2 Flow Rate 2.0 2.0 Intake and Output 05/06/20 05/06/20 05/07/20 14:59 22:59 06:59 Intake Total 360 ml 500 ml 480 ml Balance 360 ml 500 ml 480 ml Justicifation of Admission Dx: Justifications for Admission: Justification of Admission Dx: Yes CAMILA MORELOS MD May 07, 2020 09:20
--- NOTE | 2020-05-07 10:40 | PDOC ---
PULMONARY PROGRESS NOTES DATE: 05/07/20 TIME: 10:39 Subjective n 02 still has sob, cough,/wheezing Vitals Vital Signs Date Time Temp Pulse Resp B/P (MAP) Pulse Ox O2 Delivery O2 Flow Rate FiO2 05/07/20 10:15 Nasal Cannula 2.0 05/07/20 08:40 79 112/54 05/07/20 07:24 98 05/07/20 07:00 97.7 18 97.7 ROS: No Nausea, No Chest Pain General: Alert, Oriented X4, No acute distress HEENT: Other (nc at perr ) Lungs: Wheezing (has better air movement and wheezing) Cardiovascular: S1, S2 Abdomen: Soft, Non-tender Neuro Exam: Alert Extremities: No Edema Skin: Warm Labs Laboratory Tests Test 05/05/20 11:28 05/05/20 16:15 05/05/20 20:49 05/06/20 07:42 Glucose (Fingerstick) 209 mg/dL (70-99) 264 mg/dL (70-99) 183 mg/dL (70-99) 166 mg/dL (70-99) Test 05/06/20 11:27 05/06/20 16:42 05/06/20 20:15 05/07/20 07:16 Glucose (Fingerstick) 249 mg/dL (70-99) 290 mg/dL (70-99) 276 mg/dL (70-99) 185 mg/dL (70-99) Laboratory Tests Test 05/06/20 11:27 05/06/20 16:42 05/06/20 20:15 05/07/20 07:16 Glucose (Fingerstick) 249 mg/dL (70-99) 290 mg/dL (70-99) 276 mg/dL (70-99) 185 mg/dL (70-99) Medications Active Scripts Medications Dose Route/Sig Max Daily Dose Days Date Category Allopurinol 100 Mg Tablet 1 Tab PO DAILY 05/01/20 Reported Trelegy Ellipta 100-62.5-25 (Fluticasone/Umeclidin/Vilanter) 1 Each Blst.w.dev 1 Each IH DAILY 03/17/20 Reported Prilosec Otc (Omeprazole Magnesium) 20 Mg Tablet.dr 40 Mg PO DAILY 03/17/20 Reported Duoneb 0.5-3(2.5) Mg/3 Ml (Albuterol/Ipratropium) 3 Ml Ampul.neb 3 Ml NEB Q4HRS 14 10/22/19 Rx Hydrocodone-Apap 5-325 (Hydrocodone Bit/Acetaminophen) 1 Tab Tablet 1 Tab PO PRN Q4HRS PRN 10/20/19 Rx Entresto 49 mg-51 mg Tablet (Sacubitril/Valsartan) 1 Each Tablet 49-51 Mg PO BID 07/30/19 Reported K-Tab ER (Potassium Chloride) 20 Meq Tablet.er 20 Meq PO DAILY 07/30/19 Reported Montelukast Sodium Tablet (Montelukast Sodium) 10 Mg Tablet 10 Mg PO HS 07/29/19 Reported Levocetirizine Dihydrochloride 5 Mg Tablet 5 Mg PO DAILY 07/29/19 Reported Amitriptyline Hcl 25 Mg Tablet 25 Mg PO QHS 07/29/19 Reported Tylenol (Acetaminophen) 325 Mg Tablet 650 Mg PO PRN Q4HRS PRN 07/29/19 Reported Aspir 81 (Aspirin) 81 Mg Tablet.dr 1 Tab PO DAILY 01/03/18 Reported Metoprolol Succinate ( Xl ) (Metoprolol Succinate) 25 Mg Tab.er.24h 25 Mg PO DAILY 01/03/18 Reported Vitamin D3 (Cholecalciferol (Vitamin D3)) 1,000 Unit Tablet 1 Tab PO DAILY 01/02/18 Reported Torsemide 20 Mg Tablet 1 Tab PO DAILY 01/02/18 Reported Gabapentin (Gabapentin) 100 Mg Capsule 100 Mg PO TID 01/02/18 Reported Ferrous Sulfate 325 Mg Tablet 1 Tab PO DAILY 09/23/17 Reported Daliresp (Roflumilast) 500 Mcg Tablet 1 Tab PO DAILY 09/23/17 Reported Atorvastatin Calcium 20 Mg Tablet 20 Mg PO HS 09/23/17 Reported Requip (Ropinirole Hcl) 1 Mg Tablet 3 Tab PO QHS 09/23/17 Reported Proair Hfa Inhaler (Albuterol Sulfate) 8.5 Gm Hfa.aer.ad 1 Puff INH PRN Q6HRS PRN 09/23/17 Reported Levothyroxine Sodium 50 Mcg Tablet 1 Tab PO DAILY 09/23/17 Reported Impression . IMPRESSION: 1. Dyspnea secondary to acute exacerbation of chronic obstructive pulmonary disease with persistent wheezing. 2. No signs of pneumonia. 3. Chronic compensated hypercapnia. 4. allergic rhinitis Plan . RECOMMENDATIONS: 1. The patient is still wheezing . holding metoprolol. will try Mg So4 2. Continue IV Solu-Medrol 60 q 6hrs. 3. pulmocort 4. Empiric antibiotics for now. 5. COVID test is negative, 6. BD q 4hrs cont ics, cont flonase. Discussed with RN, pt. repeat cxr today IMELDA EASTMAN MD May 07, 2020 10:39
[2020-05-07] MEDS ORDERED: MAGNESIUM SULFATE 2GM 50 ML IV ONE (11:00)
--- NOTE | 2020-05-07 14:35 | RAD ---
PORTABLE CHEST 1V History: Cough Comparison: May 01, 2020 Findings: Single view of the chest is submitted. There is again dual lead left electronic cardiac device. Heart size is stable. There is no new significant dependent pleural fluid, pneumothorax, or lobar consolidation. Impression: 1. No acute radiographic abnormality is identified. Electronically signed by: Randell Washington MD (05/07/2020 2:32 PM) [id number]
--- NOTE | 2020-05-07 15:33 | NUR ---
SW following. Discussed with Tita HUGHES met with pt to discuss home health. Potentially ready for discharge on Tuesday. SW will continue to follow.
[2020-05-07] MEDS: AMITRIPTYLINE HCL 25 MG TABLET. PO SCH (21:07)
[2020-05-07] MEDS: rOPINIRole 1 MG TABLET. PO SCH (21:08)
[2020-05-07] MEDS: MONTELUKAST SODIUM 10 MG TABLET. PO SCH (21:08)
[2020-05-07] MEDS: ATORVASTATIN CALCIUM 20 MG TABLET PO SCH (21:08)
[2020-05-07] MEDS ORDERED: INSULIN LISPRO 300 UNITS/3 ML VIAL. SQ ONE (22:30)
[2020-05-08 03:38] VITALS: BP 102/51
[2020-05-08] MEDS: IPRATRPIUM/ALBUTEROL 0.5/2.5MG 3 ML NEBU. NEB SCH ×7 (04:00→23:52)
[2020-05-08 07:00] VITALS: BP 96/37
[2020-05-08] MEDS: LEVOTHYROXINE 50 MCG TABLET PO SCH (07:13)
[2020-05-08] MEDS: methylPREDNISolone SOD SUCC PF 40 MG/ML VIAL. IV SCH ×3 (07:13→18:06)
[2020-05-08] MEDS: HYDROcodone/APAP 5/325MG 1 TAB TABLET PO PRN ×2 (07:18→21:10)
[2020-05-08] MEDS: PANTOPRAZOLE 40 MG TABLET.DR. PO SCH (07:18)
[2020-05-08] MEDS: BUDESONIDE 0.5 MG/2 ML NEBU. NEB SCH ×2 (07:27→20:15)
[2020-05-08] MEDS: TORSEMIDE 20 MG TABLET. PO SCH (08:05)
[2020-05-08] MEDS: POTASSIUM CHLORIDE 20 MEQ TABLET.ER. PO SCH (08:06)
[2020-05-08] MEDS: CHOLECALCIFEROL (VITAMIN D3) 1,000 UNIT TABLET PO SCH (08:06)
[2020-05-08] MEDS: ROFLUMILAST 500 MCG TABLET. PO SCH (08:06)
[2020-05-08] MEDS: CETIRIZINE HCL 10 MG TABLET. PO SCH (08:06)
[2020-05-08] MEDS: ASPIRIN ENTERIC COATED 81 MG TABLET.DR. PO SCH (08:06)
[2020-05-08 08:07] LABS: ALBUMIN 2.5 g/dL (3.4-5.0); ALBUMIN/GLOBULIN RATIO 0.8 (1.0-1.7); CALCIUM 8.2 mg/dL (8.5-10.1); CREATININE 1.2 mg/dL (0.6-1.0); GFR 44.9; POTASSIUM 4.5 mmol/L (3.5-5.1); TOTAL BILIRUBIN 0.2 mg/dL (0.2-1.0); TOTAL PROTEIN 5.6 g/dL (6.4-8.2)
[2020-05-08] MEDS: FERROUS SULFATE 325 MG TABLET. PO SCH (08:07)
[2020-05-08] MEDS: BENZONATATE 100 MG CAPSULE. PO SCH ×3 (08:07→21:11)
[2020-05-08] MEDS: AZITHROMYCIN 250 MG TABLET. PO SCH (08:07)
[2020-05-08] MEDS: LACTOBACILLUS RHAMNOSUS GG 1 CAPSULE. PO SCH ×2 (08:07→21:11)
[2020-05-08] MEDS: ALLOPURINOL 100 MG TABLET. PO SCH (08:07)
[2020-05-08] MEDS: GABAPENTIN 100 MG CAPSULE. PO SCH ×3 (08:07→21:11)
[2020-05-08 08:09] LABS: BASO % 0 % (0-3); EOS % 0 % (0-3); HEMATOCRIT 33.2 % (36.0-47.0); HEMOGLOBIN 11.1 g/dL (12.0-15.5); LYMPH # 0.7 x10^3/uL (1.0-4.8); LYMPH % 5 % (24-48); MEAN CORPUSCULAR HEMOGLOBIN 30 pg (25-35); MEAN CORPUSCULAR HGB CONC 33 g/dL (31-37); MEAN CORPUSCULAR VOLUME 91 fL (79-100); MONO # 0.5 x10^3/uL (0.0-1.1); MONO % 4 % (0-9); NEUT # 12.4 x10^3/uL (1.8-7.7); NEUT % 92 % (31-73); PLATELET COUNT 198 x10^3/uL (140-400); RED BLOOD COUNT 3.65 x10^6/uL (3.50-5.40); RED CELL DISTRIBUTION WIDTH 14.4 % (11.5-14.5); WHITE BLOOD COUNT 13.6 x10^3/uL (4.0-11.0)
[2020-05-08] MEDS: INSULIN LISPRO 300 UNITS/3 ML VIAL. SQ SCH ×3 (08:10→17:11)
[2020-05-08] MEDS: SACUBITRIL/VALSARTAN 49/51MG TABLET. PO SCH ×2 (08:11→21:00)
[2020-05-08] MEDS: FLUTICASONE 50MCG/NASAL SPRAY 16GM BOTTLE. NS SCH (08:11)
--- NOTE | 2020-05-08 09:39 | NUR ---
SW following. Discussed with RN, pt accepted with [facility] - awaiting discharge orders. SW will continue to follow.
--- NOTE | 2020-05-08 10:26 | PDOC ---
PROGRESS NOTES Date of Service: DATE: 05/08/20 TIME: 10:26 Chief Complaint Chief Complaint impression Respiratory failure, suspect chronic obstructive pulmonary disease exacerbation Probable concomitant pneumonia, GRAM NEG COVID-19 results neg COPD CAD CHF Diabetes-Type II High Cholesterol Hypertension Hypothyroid 05/06 wheezing slow to resolve, discussed need for smoking cessation in room, present 05/08 WHEEZING SLOW TO RESOLVE to do duonebs q 4 hrs at night mgso4 helped plan admit consult pulmonary med o2 support D/W RN History of Present Illness History of Present Illness 05/08/20. cough she reports that her torsemide dose had been increased by Dr. Driscoll Continue IV Solu-Medrol 60 q 6hrs. has less wheezing hold metoprolol. Empiric antibiotics D/W RN 05/03/20. cont current, still weak, wheezing, plan OOB 05/02/20 Patient seen and examined - covid was negative Patient is in moderate distress with audible wheezing Discussed with RN Chart reviewed Vitals Vitals Vital Signs Date Time Temp Pulse Resp B/P (MAP) Pulse Ox O2 Delivery O2 Flow Rate FiO2 05/08/20 08:27 16 Room Air 05/08/20 08:11 87 102/51 05/08/20 08:00 1.0 05/08/20 07:28 98 05/08/20 07:00 97.6 97.6 Physical Exam General: Alert, Oriented X3, Cooperative, No acute distress Heart: Regular rate, Normal S1 Lungs: Wheezing (has better air movement and wheezing) Abdomen: Soft, No tenderness Extremities: No clubbing, No cyanosis, No edema Skin: No rashes, No significant lesion Labs LABS Laboratory Tests Test 05/07/20 10:56 05/07/20 16:29 05/07/20 20:52 05/08/20 06:55 Glucose (Fingerstick) 223 mg/dL (70-99) 211 mg/dL (70-99) 306 mg/dL (70-99) White Blood Count 13.6 x10^3/uL (4.0-11.0) Red Blood Count 3.65 x10^6/uL (3.50-5.40) Hemoglobin 11.1 g/dL (12.0-15.5) Hematocrit 33.2 % (36.0-47.0) Mean Corpuscular Volume 91 fL (79-100) Mean Corpuscular Hemoglobin 30 pg (25-35) Mean Corpuscular Hemoglobin Concent 33 g/dL (31-37) Red Cell Distribution Width 14.4 % (11.5-14.5) Platelet Count 198 x10^3/uL (140-400) Neutrophils (%) (Auto) 92 % (31-73) Lymphocytes (%) (Auto) 5 % (24-48) Monocytes (%) (Auto) 4 % (0-9) Eosinophils (%) (Auto) 0 % (0-3) Basophils (%) (Auto) 0 % (0-3) Neutrophils # (Auto) 12.4 x10^3/uL (1.8-7.7) Lymphocytes # (Auto) 0.7 x10^3/uL (1.0-4.8) Monocytes # (Auto) 0.5 x10^3/uL (0.0-1.1) Eosinophils # (Auto) 0.0 x10^3/uL (0.0-0.7) Basophils # (Auto) 0.0 x10^3/uL (0.0-0.2) Sodium Level 140 mmol/L (136-145) Potassium Level 4.5 mmol/L (3.5-5.1) Chloride Level 100 mmol/L (98-107) Carbon Dioxide Level 38 mmol/L (21-32) Anion Gap 2 (6-14) Blood Urea Nitrogen 36 mg/dL (7-20) Creatinine 1.2 mg/dL (0.6-1.0) Estimated GFR (Cockcroft-Gault) 44.9 BUN/Creatinine Ratio 30 (6-20) Glucose Level 177 mg/dL (70-99) Calcium Level 8.2 mg/dL (8.5-10.1) Total Bilirubin 0.2 mg/dL (0.2-1.0) Aspartate Amino Transf (AST/SGOT) 30 U/L (15-37) Alanine Aminotransferase (ALT/SGPT) 51 U/L (14-59) Alkaline Phosphatase 54 U/L (46-116) Total Protein 5.6 g/dL (6.4-8.2) Albumin 2.5 g/dL (3.4-5.0) Albumin/Globulin Ratio 0.8 (1.0-1.7) Test 05/08/20 07:26 Glucose (Fingerstick) 173 mg/dL (70-99) Assessment and Plan Assessmemt and Plan Problems Medical Problems: (1) COPD exacerbation Status: Acute Comment Review of Relevant I have reviewed the following items jon (where applicable) has been applied. Labs Laboratory Tests Test 05/06/20 11:27 05/06/20 16:42 05/06/20 20:15 05/07/20 07:16 Glucose (Fingerstick) 249 mg/dL (70-99) 290 mg/dL (70-99) 276 mg/dL (70-99) 185 mg/dL (70-99) Test 05/07/20 10:56 05/07/20 16:29 05/07/20 20:52 05/08/20 06:55 Glucose (Fingerstick) 223 mg/dL (70-99) 211 mg/dL (70-99) 306 mg/dL (70-99) White Blood Count 13.6 x10^3/uL (4.0-11.0) Red Blood Count 3.65 x10^6/uL (3.50-5.40) Hemoglobin 11.1 g/dL (12.0-15.5) Hematocrit 33.2 % (36.0-47.0) Mean Corpuscular Volume 91 fL (79-100) Mean Corpuscular Hemoglobin 30 pg (25-35) Mean Corpuscular Hemoglobin Concent 33 g/dL (31-37) Red Cell Distribution Width 14.4 % (11.5-14.5) Platelet Count 198 x10^3/uL (140-400) Neutrophils (%) (Auto) 92 % (31-73) Lymphocytes (%) (Auto) 5 % (24-48) Monocytes (%) (Auto) 4 % (0-9) Eosinophils (%) (Auto) 0 % (0-3) Basophils (%) (Auto) 0 % (0-3) Neutrophils # (Auto) 12.4 x10^3/uL (1.8-7.7) Lymphocytes # (Auto) 0.7 x10^3/uL (1.0-4.8) Monocytes # (Auto) 0.5 x10^3/uL (0.0-1.1) Eosinophils # (Auto) 0.0 x10^3/uL (0.0-0.7) Basophils # (Auto) 0.0 x10^3/uL (0.0-0.2) Sodium Level 140 mmol/L (136-145) Potassium Level 4.5 mmol/L (3.5-5.1) Chloride Level 100 mmol/L (98-107) Carbon Dioxide Level 38 mmol/L (21-32) Anion Gap 2 (6-14) Blood Urea Nitrogen 36 mg/dL (7-20) Creatinine 1.2 mg/dL (0.6-1.0) Estimated GFR (Cockcroft-Gault) 44.9 BUN/Creatinine Ratio 30 (6-20) Glucose Level 177 mg/dL (70-99) Calcium Level 8.2 mg/dL (8.5-10.1) Total Bilirubin 0.2 mg/dL (0.2-1.0) Aspartate Amino Transf (AST/SGOT) 30 U/L (15-37) Alanine Aminotransferase (ALT/SGPT) 51 U/L (14-59) Alkaline Phosphatase 54 U/L (46-116) Total Protein 5.6 g/dL (6.4-8.2) Albumin 2.5 g/dL (3.4-5.0) Albumin/Globulin Ratio 0.8 (1.0-1.7) Test 05/08/20 07:26 Glucose (Fingerstick) 173 mg/dL (70-99) Laboratory Tests Test 05/07/20 10:56 05/07/20 16:29 05/07/20 20:52 05/08/20 06:55 Glucose (Fingerstick) 223 mg/dL (70-99) 211 mg/dL (70-99) 306 mg/dL (70-99) White Blood Count 13.6 x10^3/uL (4.0-11.0) Red Blood Count 3.65 x10^6/uL (3.50-5.40) Hemoglobin 11.1 g/dL (12.0-15.5) Hematocrit 33.2 % (36.0-47.0) Mean Corpuscular Volume 91 fL (79-100) Mean Corpuscular Hemoglobin 30 pg (25-35) Mean Corpuscular Hemoglobin Concent 33 g/dL (31-37) Red Cell Distribution Width 14.4 % (11.5-14.5) Platelet Count 198 x10^3/uL (140-400) Neutrophils (%) (Auto) 92 % (31-73) Lymphocytes (%) (Auto) 5 % (24-48) Monocytes (%) (Auto) 4 % (0-9) Eosinophils (%) (Auto) 0 % (0-3) Basophils (%) (Auto) 0 % (0-3) Neutrophils # (Auto) 12.4 x10^3/uL (1.8-7.7) Lymphocytes # (Auto) 0.7 x10^3/uL (1.0-4.8) Monocytes # (Auto) 0.5 x10^3/uL (0.0-1.1) Eosinophils # (Auto) 0.0 x10^3/uL (0.0-0.7) Basophils # (Auto) 0.0 x10^3/uL (0.0-0.2) Sodium Level 140 mmol/L (136-145) Potassium Level 4.5 mmol/L (3.5-5.1) Chloride Level 100 mmol/L (98-107) Carbon Dioxide Level 38 mmol/L (21-32) Anion Gap 2 (6-14) Blood Urea Nitrogen 36 mg/dL (7-20) Creatinine 1.2 mg/dL (0.6-1.0) Estimated GFR (Cockcroft-Gault) 44.9 BUN/Creatinine Ratio 30 (6-20) Glucose Level 177 mg/dL (70-99) Calcium Level 8.2 mg/dL (8.5-10.1) Total Bilirubin 0.2 mg/dL (0.2-1.0) Aspartate Amino Transf (AST/SGOT) 30 U/L (15-37) Alanine Aminotransferase (ALT/SGPT) 51 U/L (14-59) Alkaline Phosphatase 54 U/L (46-116) Total Protein 5.6 g/dL (6.4-8.2) Albumin 2.5 g/dL (3.4-5.0) Albumin/Globulin Ratio 0.8 (1.0-1.7) Test 05/08/20 07:26 Glucose (Fingerstick) 173 mg/dL (70-99) Medications Current Medications Methylprednisolone Sodium Succinate (SOLU-Medrol 125MG VIAL) 125 mg 1X ONCE IV Last administered on 05/01/20at 14:10; Start 05/01/20 at 13:30; Stop 05/01/20 at 13:31; Status DC Albuterol Sulfate (Ventolin Neb Soln) 10 mg 1X ONCE CONT NEB Last administered on 05/01/20at 13:47; Start 05/01/20 at 13:30; Stop 05/01/20 at 13:31; Status DC Fentanyl Citrate (Fentanyl 2ml Vial) 50 mcg 1X ONCE IVP Last administered on 05/01/20at 14:10; Start 05/01/20 at 13:45; Stop 05/01/20 at 13:51; Status DC Sodium Chloride 1,000 ml @ 1,000 mls/hr 1X ONCE IV Last administered on 05/01/20at 14:12; Start 05/01/20 at 14:15; Stop 05/01/20 at 15:14; Status DC Azithromycin 250 ml @ 250 mls/hr 1X ONCE IV Last administered on 05/01/20at 14:26; Start 05/01/20 at 14:15; Stop 05/01/20 at 15:14; Status DC Ondansetron HCl (Zofran) 4 mg PRN Q8HRS PRN IV NAUSEA/VOMITING; Start 05/01/20 at 14:45; Stop 05/02/20 at 14:44; Status DC Fentanyl Citrate (Fentanyl 2ml Vial) 50 mcg PRN Q1HR PRN IV PAIN Last administered on 05/01/20at 16:12; Start 05/01/20 at 14:45; Stop 05/02/20 at 14:44; Status DC Acetaminophen (Tylenol) 650 mg PRN Q4HRS PRN PO MILD PAIN 1-3 Last administered on 05/04/20at 20:45; Start 05/01/20 at 20:45 Albuterol Sulfate (Ventolin Neb Soln) 2.5 mg PRN Q6HRS PRN INH SHORTNESS OF BREATH; Start 05/01/20 at 20:45 Allopurinol (Zyloprim) 100 mg DAILY PO Last administered on 05/08/20at 08:07; Start 05/02/20 at 09:00 Amitriptyline HCl (Elavil) 25 mg QHS PO Last administered on 05/07/20 21:07; Start 05/01/20 at 21:00 Aspirin (Ecotrin) 81 mg DAILY PO Last administered on 05/08/20 08:06; Start 05/02/20 at 09:00 Atorvastatin Calcium (Lipitor) 20 mg HS PO Last administered on 05/07/20 21:08; Start 05/01/20 at 21:00 Vitamin D (Vitamin D3) 1,000 unit DAILY PO Last administered on 05/08/20 08:06; Start 05/02/20 at 09:00 Ferrous Sulfate (Feosol) 325 mg DAILY PO Last administered on 05/08/20 08:07; Start 05/02/20 at 09:00 Gabapentin (Neurontin) 100 mg TID PO Last administered on 05/08/20 08:07; Start 05/01/20 at 21:00 Acetaminophen/ Hydrocodone Bitart (Lortab 5/325) 1 tab PRN Q4HRS PRN PO MODERATE PAIN 4-6 Last administered on 05/08/20 07:18; Start 05/01/20 at 20:45 Albuterol/ Ipratropium (Duoneb) 3 ml Q4HRS W/A NEB ; Start 05/01/20 at 22:00; Stop 05/02/20 at 10:59; Status DC Levothyroxine Sodium (Synthroid) 50 mcg DAILY06 PO Last administered on 05/08/20 07:13; Start 05/02/20 at 06:00 Metoprolol Succinate (Toprol Xl) 25 mg DAILY PO Last administered on 05/05/20 08:01; Start 05/02/20 at 09:00; Stop 05/05/20 at 09:58; Status DC Montelukast Sodium (Singulair) 10 mg HS PO Last administered on 05/07/20 21:08; Start 05/01/20 at 21:00 Roflumilast (Daliresp) 500 mcg DAILY PO Last administered on 05/08/20 08:06; Start 05/02/20 at 09:00 Ropinirole HCl (Requip) 3 mg QHS PO Last administered on 05/07/20 21:08; Start 05/01/20 at 21:00 Sacubitril/ Valsartan (Entresto 49 Mg-51 Mg) 1 tab BID PO Last administered on 05/07/20 21:08; Start 05/01/20 at 21:00 Torsemide (Demadex) 20 mg DAILY PO Last administered on 05/03/20at 08:43; Start 05/02/20 at 09:00; Stop 05/04/20 at 09:55; Status DC Budesonide (Pulmicort) 0.5 mg RTBID NEB Last administered on 05/08/20 07:27; Start 05/02/20 at 08:00 Cetirizine HCl (ZyrTEC) 10 mg DAILY PO Last administered on 05/08/20 08:06; Start 05/02/20 at 09:00 Pantoprazole Sodium (Protonix) 40 mg DAILYAC PO Last administered on 05/08/20 07:18; Start 05/02/20 at 07:30 Potassium Chloride (Klor-Con) 20 meq [id number] PO Last administered on 08:06; Start 05/02/20 at 08:00 Methylprednisolone Sodium Succinate (SOLU-Medrol 40MG VIAL) 60 mg Q6HRS IV Last administered on 05/08/20 07:13; Start 05/02/20 at 05:00 Azithromycin 500 mg/Sodium Chloride 250 ml @ 250 mls/hr Q24H IV Last administe red on 05/03/20at 11:59; Start 05/02/20 at 10:00; Stop 05/03/20 at 12:58; Status DC Albuterol/ Ipratropium (Combivent Respimat 20-100 Mcg) 1 puff Q4HRS W/A INH Last administered on 05/02/20at 17:39; Start 05/02/20 at 14:00; Stop 05/02/20 at 18:39; Status DC Albuterol/ Ipratropium (Duoneb) 3 ml Q4HRS NEB Last administered on 05/05/20at 00:13; Start 05/02/20 at 20:00; Stop 05/05/20 at 05:24; Status DC Fluticasone Propionate (Flonase) 2 spray DAILY NS Last administered on 05/08/20at 08:11; Start 05/03/20 at 12:00 Lactobacillus Rhamnosus (Culturelle) 1 cap BID PO ; Start 05/03/20 at 21:00; Status Cancel Azithromycin (Zithromax) 500 mg DAILY PO Last administered on 05/08/20at 08:07; Start 05/04/20 at 09:00 Benzonatate (Tessalon Perle) 100 mg [id number] PO Last administered on 05/08/20 08:07; Start 05/04/20 at 10:00 Guaifenesin (Robitussin Dm) 10 ml PRN Q6HRS PRN PO COUGH Last administered on 05/05/20 12:02; Start 05/04/20 at 10:00 Torsemide (Demadex) 40 mg DAILY PO Last administered on 05/04/20at 10:21; Start 05/05/20 at 09:00; Stop 05/04/20 at 12:45; Status DC Torsemide (Demadex) 20 mg 1X ONCE PO ; Start 05/04/20 at 10:15; Stop 05/04/20 at 10:16; Status DC Torsemide (Demadex) 40 mg DAILY PO Last administered on 05/08/20at 08:05; Start 05/05/20 at 09:00 Diphenhydramine HCl (Benadryl) 25 mg PRN Q6HRS PRN IVP ITCHING Last administered on 05/04/20at 21:31; Start 05/04/20 at 21:30 Albuterol/ Ipratropium (Duoneb) 3 ml RTQID NEB Last administered on 05/05/20at 06:59; Start 05/05/20 at 08:00; Stop 05/05/20 at 10:00; Status DC Albuterol/ Ipratropium (Duoneb) 3 ml Q4HRS NEB Last administered on 05/08/20at 07:27; Start 05/05/20 at 10:00 Lactobacillus Rhamnosus (Culturelle) 1 cap BID PO Last administered on 05/08/20at 08:07; Start 05/05/20 at 21:00 Phenol (Chloraseptic) 1 spray PRN Q2HR PRN PO SORE THROAT Last administered on 05/07/20at 08:38; Start 05/05/20 at 12:00 Insulin Human Lispro (HumaLOG) 0-7 UNITS TIDWMEALS SQ Last administered on 05/08/20at 08:10; Start 05/05/20 at 12:30 Dextrose (Dextrose 50%-Water Syringe) 12.5 gm PRN Q15MIN PRN IV SEE COMMENTS; Start 05/05/20 at 12:00 Magnesium Sulfate 50 ml @ 25 mls/hr 1X ONCE IV Last administered on 05/07/20at 11:30; Start 05/07/20 at 11:00; Stop 05/07/20 at 12:59; Status DC Insulin Human Lispro (HumaLOG) 7 units 1X ONCE SQ Last administered on 05/07/20at 22:38; Start 05/07/20 at 22:30; Stop 05/07/20 at 22:33; Status DC Active Scripts Active Duoneb 0.5-3(2.5) Mg/3 Ml (Albuterol/Ipratropium) 3 Ml Ampul.neb 3 Ml NEB Q4HRS 14 Days Hydrocodone-Apap 5-325 (Hydrocodone Bit/Acetaminophen) 1 Tab Tablet 1 Tab PO PRN Q4HRS PRN Reported Allopurinol 100 Mg Tablet 1 Tab PO DAILY Trelegy Ellipta 100-62.5-25 (Fluticasone/Umeclidin/Vilanter) 1 Each Blst.w.dev 1 Each IH DAILY Prilosec Otc (Omeprazole Magnesium) 20 Mg Tablet.dr 40 Mg PO DAILY Entresto 49 mg-51 mg Tablet (Sacubitril/Valsartan) 1 Each Tablet 49-51 Mg PO BID K-Tab ER (Potassium Chloride) 20 Meq Tablet.er 20 Meq PO DAILY Montelukast Sodium Tablet (Montelukast Sodium) 10 Mg Tablet 10 Mg PO HS Levocetirizine Dihydrochloride 5 Mg Tablet 5 Mg PO DAILY Amitriptyline Hcl 25 Mg Tablet 25 Mg PO QHS Tylenol (Acetaminophen) 325 Mg Tablet 650 Mg PO PRN Q4HRS PRN Aspir 81 (Aspirin) 81 Mg Tablet.dr 1 Tab PO DAILY Metoprolol Succinate ( Xl ) (Metoprolol Succinate) 25 Mg Tab.er.24h 25 Mg PO DAILY Vitamin D3 (Cholecalciferol (Vitamin D3)) 1,000 Unit Tablet 1 Tab PO DAILY Torsemide 20 Mg Tablet 1 Tab PO DAILY Gabapentin (Gabapentin) 100 Mg Capsule 100 Mg PO TID Ferrous Sulfate 325 Mg Tablet 1 Tab PO DAILY Daliresp (Roflumilast) 500 Mcg Tablet 1 Tab PO DAILY Atorvastatin Calcium 20 Mg Tablet 20 Mg PO HS Requip (Ropinirole Hcl) 1 Mg Tablet 3 Tab PO QHS Proair Hfa Inhaler (Albuterol Sulfate) 8.5 Gm Hfa.aer.ad 1 Puff INH PRN Q6HRS PRN Levothyroxine Sodium 50 Mcg Tablet 1 Tab PO DAILY Vitals/I & O Vital Sign - Last 24 Hours 05/07/20 05/07/20 05/07/20 05/07/20 11:00 11:38 14:45 15:00 Temp 97.9 97.9 97.9 97.9 Pulse 99 97 Resp 20 20 B/P (MAP) 107/49 (68) 113/50 (71) Pulse Ox 97 97 O2 Delivery Nasal Cannula Nasal Cannula Room Air Nasal Cannula O2 Flow Rate 2.0 2.0 2.0 05/07/20 05/07/20 05/07/20 05/07/20 15:15 19:34 19:56 19:57 Temp 98.6 98.6 Pulse 91 Resp 16 B/P (MAP) 112/50 (70) Pulse Ox 96 97 97 O2 Delivery Nasal Cannula Nasal Cannula Nasal Cannula Nasal Cannula O2 Flow Rate 2.0 2.0 2.0 2.0 05/07/20 05/07/20 05/07/20 05/08/20 20:00 21:08 23:57 03:38 Temp 98.0 99.1 98.0 99.1 Pulse 91 101 87 Resp 16 16 B/P (MAP) 112/50 115/57 (76) 102/51 (68) Pulse Ox 96 98 O2 Delivery Nasal Cannula Nasal Cannula Nasal Cannula O2 Flow Rate 2.0 2.0 2.0 05/08/20 05/08/20 05/08/20 05/08/20 07:00 07:18 07:28 08:00 Temp 97.6 97.6 Pulse 87 Resp 18 B/P (MAP) 96/37 (56) Pulse Ox 98 98 O2 Delivery Room Air Nasal Cannula Nasal Cannula Nasal Cannula O2 Flow Rate 2.0 1.0 05/08/20 05/08/20 08:11 08:27 Pulse 87 Resp 16 B/P (MAP) 102/51 O2 Delivery Room Air Intake and Output 05/07/20 05/07/20 05/08/20 15:00 23:00 07:00 Intake Total 540 ml 660 ml 240 ml Balance 540 ml 660 ml 240 ml Justicifation of Admission Dx: Justifications for Admission: Justification of Admission Dx: Yes CAMILA MORELOS MD May 08, 2020 10:26
[2020-05-08 11:00] VITALS: BP 98/40
--- NOTE | 2020-05-08 11:07 | PDOC ---
PULMONARY PROGRESS NOTES DATE: 05/08/20 TIME: 11:04 Subjective less soa felt better after MgSo4 Vitals Vital Signs Date Time Temp Pulse Resp B/P (MAP) Pulse Ox O2 Delivery O2 Flow Rate FiO2 05/08/20 08:27 16 Room Air 05/08/20 08:11 87 102/51 05/08/20 08:00 1.0 05/08/20 07:28 98 05/08/20 07:00 97.6 97.6 ROS: No Nausea, No Chest Pain General: Alert, Oriented X4, No acute distress HEENT: Other (nc at [facility] ) Lungs: Wheezing (has better air movement and wheezing less) Cardiovascular: S1, S2 Abdomen: Soft, Non-tender Neuro Exam: Alert Extremities: No Edema Skin: Warm Labs Laboratory Tests Test 05/06/20 11:27 05/06/20 16:42 05/06/20 20:15 05/07/20 07:16 Glucose (Fingerstick) 249 mg/dL (70-99) 290 mg/dL (70-99) 276 mg/dL (70-99) 185 mg/dL (70-99) Test 05/07/20 10:56 05/07/20 16:29 05/07/20 20:52 05/08/20 06:55 Glucose (Fingerstick) 223 mg/dL (70-99) 211 mg/dL (70-99) 306 mg/dL (70-99) White Blood Count 13.6 x10^3/uL (4.0-11.0) Red Blood Count 3.65 x10^6/uL (3.50-5.40) Hemoglobin 11.1 g/dL (12.0-15.5) Hematocrit 33.2 % (36.0-47.0) Mean Corpuscular Volume 91 fL (79-100) Mean Corpuscular Hemoglobin 30 pg (25-35) Mean Corpuscular Hemoglobin Concent 33 g/dL (31-37) Red Cell Distribution Width 14.4 % (11.5-14.5) Platelet Count 198 x10^3/uL (140-400) Neutrophils (%) (Auto) 92 % (31-73) Lymphocytes (%) (Auto) 5 % (24-48) Monocytes (%) (Auto) 4 % (0-9) Eosinophils (%) (Auto) 0 % (0-3) Basophils (%) (Auto) 0 % (0-3) Neutrophils # (Auto) 12.4 x10^3/uL (1.8-7.7) Lymphocytes # (Auto) 0.7 x10^3/uL (1.0-4.8) Monocytes # (Auto) 0.5 x10^3/uL (0.0-1.1) Eosinophils # (Auto) 0.0 x10^3/uL (0.0-0.7) Basophils # (Auto) 0.0 x10^3/uL (0.0-0.2) Sodium Level 140 mmol/L (136-145) Potassium Level 4.5 mmol/L (3.5-5.1) Chloride Level 100 mmol/L (98-107) Carbon Dioxide Level 38 mmol/L (21-32) Anion Gap 2 (6-14) Blood Urea Nitrogen 36 mg/dL (7-20) Creatinine 1.2 mg/dL (0.6-1.0) Estimated GFR (Cockcroft-Gault) 44.9 BUN/Creatinine Ratio 30 (6-20) Glucose Level 177 mg/dL (70-99) Calcium Level 8.2 mg/dL (8.5-10.1) Total Bilirubin 0.2 mg/dL (0.2-1.0) Aspartate Amino Transf (AST/SGOT) 30 U/L (15-37) Alanine Aminotransferase (ALT/SGPT) 51 U/L (14-59) Alkaline Phosphatase 54 U/L (46-116) Total Protein 5.6 g/dL (6.4-8.2) Albumin 2.5 g/dL (3.4-5.0) Albumin/Globulin Ratio 0.8 (1.0-1.7) Test 05/08/20 07:26 Glucose (Fingerstick) 173 mg/dL (70-99) Laboratory Tests Test 05/07/20 16:29 05/07/20 20:52 05/08/20 06:55 05/08/20 07:26 Glucose (Fingerstick) 211 mg/dL (70-99) 306 mg/dL (70-99) 173 mg/dL (70-99) White Blood Count 13.6 x10^3/uL (4.0-11.0) Red Blood Count 3.65 x10^6/uL (3.50-5.40) Hemoglobin 11.1 g/dL (12.0-15.5) Hematocrit 33.2 % (36.0-47.0) Mean Corpuscular Volume 91 fL (79-100) Mean Corpuscular Hemoglobin 30 pg (25-35) Mean Corpuscular Hemoglobin Concent 33 g/dL (31-37) Red Cell Distribution Width 14.4 % (11.5-14.5) Platelet Count 198 x10^3/uL (140-400) Neutrophils (%) (Auto) 92 % (31-73) Lymphocytes (%) (Auto) 5 % (24-48) Monocytes (%) (Auto) 4 % (0-9) Eosinophils (%) (Auto) 0 % (0-3) Basophils (%) (Auto) 0 % (0-3) Neutrophils # (Auto) 12.4 x10^3/uL (1.8-7.7) Lymphocytes # (Auto) 0.7 x10^3/uL (1.0-4.8) Monocytes # (Auto) 0.5 x10^3/uL (0.0-1.1) Eosinophils # (Auto) 0.0 x10^3/uL (0.0-0.7) Basophils # (Auto) 0.0 x10^3/uL (0.0-0.2) Sodium Level 140 mmol/L (136-145) Potassium Level 4.5 mmol/L (3.5-5.1) Chloride Level 100 mmol/L (98-107) Carbon Dioxide Level 38 mmol/L (21-32) Anion Gap 2 (6-14) Blood Urea Nitrogen 36 mg/dL (7-20) Creatinine 1.2 mg/dL (0.6-1.0) Estimated GFR (Cockcroft-Gault) 44.9 BUN/Creatinine Ratio 30 (6-20) Glucose Level 177 mg/dL (70-99) Calcium Level 8.2 mg/dL (8.5-10.1) Total Bilirubin 0.2 mg/dL (0.2-1.0) Aspartate Amino Transf (AST/SGOT) 30 U/L (15-37) Alanine Aminotransferase (ALT/SGPT) 51 U/L (14-59) Alkaline Phosphatase 54 U/L (46-116) Total Protein 5.6 g/dL (6.4-8.2) Albumin 2.5 g/dL (3.4-5.0) Albumin/Globulin Ratio 0.8 (1.0-1.7) Medications Active Scripts Medications Dose Route/Sig Max Daily Dose Days Date Category Allopurinol 100 Mg Tablet 1 Tab PO DAILY 05/01/20 Reported Trelegy Ellipta 100-62.5-25 (Fluticasone/Umeclidin/Vilanter) 1 Each Blst.w.dev 1 Each IH DAILY 03/17/20 Reported Prilosec Otc (Omeprazole Magnesium) 20 Mg Tablet.dr 40 Mg PO DAILY 03/17/20 Reported Duoneb 0.5-3(2.5) Mg/3 Ml (Albuterol/Ipratropium) 3 Ml Ampul.neb 3 Ml NEB Q4HRS 14 10/22/19 Rx Hydrocodone-Apap 5-325 (Hydrocodone Bit/Acetaminophen) 1 Tab Tablet 1 Tab PO PRN Q4HRS PRN 10/20/19 Rx Entresto 49 mg-51 mg Tablet (Sacubitril/Valsartan) 1 Each Tablet 49-51 Mg PO BID 07/30/19 Reported K-Tab ER (Potassium Chloride) 20 Meq Tablet.er 20 Meq PO DAILY 07/30/19 Reported Montelukast Sodium Tablet (Montelukast Sodium) 10 Mg Tablet 10 Mg PO HS 07/29/19 Reported Levocetirizine Dihydrochloride 5 Mg Tablet 5 Mg PO DAILY 07/29/19 Reported Amitriptyline Hcl 25 Mg Tablet 25 Mg PO QHS 07/29/19 Reported Tylenol (Acetaminophen) 325 Mg Tablet 650 Mg PO PRN Q4HRS PRN 07/29/19 Reported Aspir 81 (Aspirin) 81 Mg Tablet.dr 1 Tab PO DAILY 01/03/18 Reported Metoprolol Succinate ( Xl ) (Metoprolol Succinate) 25 Mg Tab.er.24h 25 Mg PO DAILY 01/03/18 Reported Vitamin D3 (Cholecalciferol (Vitamin D3)) 1,000 Unit Tablet 1 Tab PO DAILY 01/02/18 Reported Torsemide 20 Mg Tablet 1 Tab PO DAILY 01/02/18 Reported Gabapentin (Gabapentin) 100 Mg Capsule 100 Mg PO TID 01/02/18 Reported Ferrous Sulfate 325 Mg Tablet 1 Tab PO DAILY 09/23/17 Reported Daliresp (Roflumilast) 500 Mcg Tablet 1 Tab PO DAILY 09/23/17 Reported Atorvastatin Calcium 20 Mg Tablet 20 Mg PO HS 09/23/17 Reported Requip (Ropinirole Hcl) 1 Mg Tablet 3 Tab PO QHS 09/23/17 Reported Proair Hfa Inhaler (Albuterol Sulfate) 8.5 Gm Hfa.aer.ad 1 Puff INH PRN Q6HRS PRN 09/23/17 Reported Levothyroxine Sodium 50 Mcg Tablet 1 Tab PO DAILY 09/23/17 Reported Impression . IMPRESSION: 1. Dyspnea secondary to acute exacerbation of chronic obstructive pulmonary disease with persistent wheezing.? CHF. Pt had left heart cath 03/22 and had LVEDP of 27 2. No signs of pneumonia. 3. Chronic compensated hypercapnia. 4. allergic rhinitis 5. CXR 05/07 with possible mild CHF Plan . RECOMMENDATIONS: 1. The patient is still wheezing . holding metoprolol. s/p Mg So4 2. Continue IV Solu-Medrol 60 q 6hrs. 3. pulmocort 4. Empiric antibiotics for now. 5. COVID test is negative, 6. BD q 4hrs cont ics, cont flonase. 7. IV lasix today Discussed with RN, pt. IMELDA EASTMAN MD May 08, 2020 11:07
[2020-05-08] MEDS ORDERED: MAGNESIUM SULFATE 2GM 50 ML IV ONE (11:30)
[2020-05-08] MEDS ORDERED: FUROSEMIDE 40 MG/4 ML VIAL. IVP ONE (11:45)
[2020-05-08 15:00] VITALS: BP 112/44
[2020-05-08 19:00] VITALS: BP 96/46
[2020-05-08] MEDS: MONTELUKAST SODIUM 10 MG TABLET. PO SCH (21:11)
[2020-05-08] MEDS: AMITRIPTYLINE HCL 25 MG TABLET. PO SCH (21:11)
[2020-05-08] MEDS: rOPINIRole 1 MG TABLET. PO SCH (21:11)
[2020-05-08] MEDS: ATORVASTATIN CALCIUM 20 MG TABLET PO SCH (21:12)
[2020-05-08] MEDS ORDERED: INSULIN LISPRO 300 UNITS/3 ML VIAL. SQ ONE (21:30)
[2020-05-08 23:00] VITALS: BP 121/36
[2020-05-09] MEDS: methylPREDNISolone SOD SUCC PF 40 MG/ML VIAL. IV SCH ×4 (00:04→18:06)
[2020-05-09 03:00] VITALS: BP 99/38
[2020-05-09] MEDS: IPRATRPIUM/ALBUTEROL 0.5/2.5MG 3 ML NEBU. NEB SCH ×6 (04:00→23:15)
[2020-05-09 07:00] VITALS: BP 109/53
[2020-05-09] MEDS: BUDESONIDE 0.5 MG/2 ML NEBU. NEB SCH ×2 (07:09→20:23)
[2020-05-09] MEDS: PANTOPRAZOLE 40 MG TABLET.DR. PO SCH (07:24)
[2020-05-09] MEDS: LEVOTHYROXINE 50 MCG TABLET PO SCH (07:24)
--- NOTE | 2020-05-09 09:47 | PDOC ---
PROGRESS NOTES Date of Service: DATE: 05/09/20 TIME: 09:47 Chief Complaint Chief Complaint impression Respiratory failure, suspect chronic obstructive pulmonary disease exacerbation Probable concomitant pneumonia, GRAM NEG COVID-19 results neg COPD CAD CHF Diabetes-Type II High Cholesterol Hypertension Hypothyroid 05/06 wheezing slow to resolve, discussed need for smoking cessation in room, present 05/09 WHEEZING SLOW TO RESOLVE, WORSE TODAY to do duonebs q 4 hrs at night mgso4 helped plan admit consult pulmonary med o2 support D/W RN INC STEROIDS History of Present Illness History of Present Illness 05/08/20. cough she reports that her torsemide dose had been increased by Dr. Driscoll Continue IV Solu-Medrol 60 q 6hrs. has less wheezing hold metoprolol. Empiric antibiotics D/W RN 05/03/20. cont current, still weak, wheezing, plan OOB 05/02/20 Patient seen and examined - covid was negative Patient is in moderate distress with audible wheezing Discussed with RN Chart reviewed Vitals Vitals Vital Signs Date Time Temp Pulse Resp B/P (MAP) Pulse Ox O2 Delivery O2 Flow Rate FiO2 05/09/20 07:13 95 Nasal Cannula 2.0 05/09/20 07:00 98.3 91 16 109/53 (71) 98.3 Physical Exam General: Alert, Oriented X3, Cooperative, No acute distress Heart: Regular rate, Normal S1 Lungs: Wheezing (has better air movement and wheezing less) Abdomen: Soft, No tenderness Extremities: No clubbing, No cyanosis, No edema Skin: No rashes, No significant lesion Labs LABS Laboratory Tests Test 05/08/20 11:33 05/08/20 17:00 05/08/20 20:28 05/09/20 07:26 Glucose (Fingerstick) 288 mg/dL (70-99) 219 mg/dL (70-99) 240 mg/dL (70-99) 177 mg/dL (70-99) Assessment and Plan Assessmemt and Plan Problems Medical Problems: (1) COPD exacerbation Status: Acute Comment Review of Relevant I have reviewed the following items jon (where applicable) has been applied. Labs Laboratory Tests Test 05/07/20 10:56 05/07/20 16:29 05/07/20 20:52 05/08/20 06:55 Glucose (Fingerstick) 223 mg/dL (70-99) 211 mg/dL (70-99) 306 mg/dL (70-99) White Blood Count 13.6 x10^3/uL (4.0-11.0) Red Blood Count 3.65 x10^6/uL (3.50-5.40) Hemoglobin 11.1 g/dL (12.0-15.5) Hematocrit 33.2 % (36.0-47.0) Mean Corpuscular Volume 91 fL (79-100) Mean Corpuscular Hemoglobin 30 pg (25-35) Mean Corpuscular Hemoglobin Concent 33 g/dL (31-37) Red Cell Distribution Width 14.4 % (11.5-14.5) Platelet Count 198 x10^3/uL (140-400) Neutrophils (%) (Auto) 92 % (31-73) Lymphocytes (%) (Auto) 5 % (24-48) Monocytes (%) (Auto) 4 % (0-9) Eosinophils (%) (Auto) 0 % (0-3) Basophils (%) (Auto) 0 % (0-3) Neutrophils # (Auto) 12.4 x10^3/uL (1.8-7.7) Lymphocytes # (Auto) 0.7 x10^3/uL (1.0-4.8) Monocytes # (Auto) 0.5 x10^3/uL (0.0-1.1) Eosinophils # (Auto) 0.0 x10^3/uL (0.0-0.7) Basophils # (Auto) 0.0 x10^3/uL (0.0-0.2) Sodium Level 140 mmol/L (136-145) Potassium Level 4.5 mmol/L (3.5-5.1) Chloride Level 100 mmol/L (98-107) Carbon Dioxide Level 38 mmol/L (21-32) Anion Gap 2 (6-14) Blood Urea Nitrogen 36 mg/dL (7-20) Creatinine 1.2 mg/dL (0.6-1.0) Estimated GFR (Cockcroft-Gault) 44.9 BUN/Creatinine Ratio 30 (6-20) Glucose Level 177 mg/dL (70-99) Calcium Level 8.2 mg/dL (8.5-10.1) Total Bilirubin 0.2 mg/dL (0.2-1.0) Aspartate Amino Transf (AST/SGOT) 30 U/L (15-37) Alanine Aminotransferase (ALT/SGPT) 51 U/L (14-59) Alkaline Phosphatase 54 U/L (46-116) Total Protein 5.6 g/dL (6.4-8.2) Albumin 2.5 g/dL (3.4-5.0) Albumin/Globulin Ratio 0.8 (1.0-1.7) Test 05/08/20 07:26 05/08/20 11:33 05/08/20 17:00 05/08/20 20:28 Glucose (Fingerstick) 173 mg/dL (70-99) 288 mg/dL (70-99) 219 mg/dL (70-99) 240 mg/dL (70-99) Test 05/09/20 07:26 Glucose (Fingerstick) 177 mg/dL (70-99) Laboratory Tests Test 05/08/20 11:33 05/08/20 17:00 05/08/20 20:28 05/09/20 07:26 Glucose (Fingerstick) 288 mg/dL (70-99) 219 mg/dL (70-99) 240 mg/dL (70-99) 177 mg/dL (70-99) Medications Current Medications Methylprednisolone Sodium Succinate (SOLU-Medrol 125MG VIAL) 125 mg 1X ONCE IV Last administered on 05/01/20at 14:10; Start 05/01/20 at 13:30; Stop 05/01/20 at 13:31; Status DC Albuterol Sulfate (Ventolin Neb Soln) 10 mg 1X ONCE CONT NEB Last administered on 05/01/20at 13:47; Start 05/01/20 at 13:30; Stop 05/01/20 at 13:31; Status DC Fentanyl Citrate (Fentanyl 2ml Vial) 50 mcg 1X ONCE IVP Last administered on 05/01/20at 14:10; Start 05/01/20 at 13:45; Stop 05/01/20 at 13:51; Status DC Sodium Chloride 1,000 ml @ 1,000 mls/hr 1X ONCE IV Last administered on 05/01/20at 14:12; Start 05/01/20 at 14:15; Stop 05/01/20 at 15:14; Status DC Azithromycin 250 ml @ 250 mls/hr 1X ONCE IV Last administered on 05/01/20at 14:26; Start 05/01/20 at 14:15; Stop 05/01/20 at 15:14; Status DC Ondansetron HCl (Zofran) 4 mg PRN Q8HRS PRN IV NAUSEA/VOMITING; Start 05/01/20 at 14:45; Stop 05/02/20 at 14:44; Status DC Fentanyl Citrate (Fentanyl 2ml Vial) 50 mcg PRN Q1HR PRN IV PAIN Last administered on 05/01/20at 16:12; Start 05/01/20 at 14:45; Stop 05/02/20 at 14:44; Status DC Acetaminophen (Tylenol) 650 mg PRN Q4HRS PRN PO MILD PAIN 1-3 Last administered on 05/04/20at 20:45; Start 05/01/20 at 20:45 Albuterol Sulfate (Ventolin Neb Soln) 2.5 mg PRN Q6HRS PRN INH SHORTNESS OF BREATH; Start 05/01/20 at 20:45 Allopurinol (Zyloprim) 100 mg DAILY PO Last administered on 05/08/20 08:07; Start 05/02/20 at 09:00 Amitriptyline HCl (Elavil) 25 mg QHS PO Last administered on 05/08/20 21:11; Start 05/01/20 at 21:00 Aspirin (Ecotrin) 81 mg DAILY PO Last administered on 05/08/20 08:06; Start 05/02/20 at 09:00 Atorvastatin Calcium (Lipitor) 20 mg HS PO Last administered on 05/08/20 21:12; Start 05/01/20 at 21:00 Vitamin D (Vitamin D3) 1,000 unit DAILY PO Last administered on 05/08/20 08:06; Start 05/02/20 at 09:00 Ferrous Sulfate (Feosol) 325 mg DAILY PO Last administered on 05/08/20 08:07; Start 05/02/20 at 09:00 Gabapentin (Neurontin) 100 mg TID PO Last administered on 05/08/20 21:11; Start 05/01/20 at 21:00 Acetaminophen/ Hydrocodone Bitart (Lortab 5/325) 1 tab PRN Q4HRS PRN PO MODERATE PAIN 4-6 Last administered on 05/08/20 21:10; Start 05/01/20 at 20:45 Albuterol/ Ipratropium (Duoneb) 3 ml Q4HRS W/A NEB ; Start 05/01/20 at 22:00; Stop 05/02/20 at 10:59; Status DC Levothyroxine Sodium (Synthroid) 50 mcg DAILY06 PO Last administered on 05/09/20 07:24; Start 05/02/20 at 06:00 Metoprolol Succinate (Toprol Xl) 25 mg DAILY PO Last administered on 05/05/20 08:01; Start 05/02/20 at 09:00; Stop 05/05/20 at 09:58; Status DC Montelukast Sodium (Singulair) 10 mg HS PO Last administered on 05/08/20 21:11; Start 05/01/20 at 21:00 Roflumilast (Daliresp) 500 mcg DAILY PO Last administered on 05/08/20 08:06; Start 05/02/20 at 09:00 Ropinirole HCl (Requip) 3 mg QHS PO Last administered on 05/08/20 21:11; Start 05/01/20 at 21:00 Sacubitril/ Valsartan (Entresto 49 Mg-51 Mg) 1 tab BID PO Last administered on 05/07/20 21:08; Start 05/01/20 at 21:00 Torsemide (Demadex) 20 mg DAILY PO Last administered on 05/03/20at 08:43; Start 05/02/20 at 09:00; Stop 05/04/20 at 09:55; Status DC Budesonide (Pulmicort) 0.5 mg RTBID NEB Last administered on 05/09/20 07:09; Start 05/02/20 at 08:00 Cetirizine HCl (ZyrTEC) 10 mg DAILY PO Last administered on 05/08/20 08:06; Start 05/02/20 at 09:00 Pantoprazole Sodium (Protonix) 40 mg DAILYAC PO Last administered on 05/09/20at 07:24; Start 05/02/20 at 07:30 Potassium Chloride (Klor-Con) 20 meq DAILYWBKFT PO Last administered on 05/08/20at 08:06; Start 05/02/20 at 08:00 Methylprednisolone Sodium Succinate (SOLU-Medrol 40MG VIAL) 60 mg Q6HRS IV Last administered on 05/09/20at 07:24; Start 05/02/20 at 05:00 Azithromycin 500 mg/Sodium Chloride 250 ml @ 250 mls/hr Q24H IV Last administered on 05/03/20at 11:59; Start 05/02/20 at 10:00; Stop 05/03/20 at 12:58; Status DC Albuterol/ Ipratropium (Combivent Respimat 20-100 Mcg) 1 puff Q4HRS W/A INH Last administered on 05/02/20at 17:39; Start 05/02/20 at 14:00; Stop 05/02/20 at 18:39; Status DC Albuterol/ Ipratropium (Duoneb) 3 ml Q4HRS NEB Last administered on 05/05/20at 00:13; Start 05/02/20 at 20:00; Stop 05/05/20 at 05:24; Status DC Fluticasone Propionate (Flonase) 2 spray DAILY NS Last administered on 05/08/20 08:11; Start 05/03/20 at 12:00 Lactobacillus Rhamnosus (Culturelle) 1 cap BID PO ; Start 05/03/20 at 21:00; Status Cancel Azithromycin (Zithromax) 500 mg DAILY PO Last administered on 05/08/20 08:07; Start 05/04/20 at 09:00 Benzonatate (Tessalon Perle) 100 mg [id number] PO Last administered on 05/08/20 21:11; Start 05/04/20 at 10:00 Guaifenesin (Robitussin Dm) 10 ml PRN Q6HRS PRN PO COUGH Last administered on 05/05/20 12:02; Start 05/04/20 at 10:00 Torsemide (Demadex) 40 mg DAILY PO Last administered on 05/04/20 10:21; Start 05/05/20 at 09:00; Stop 05/04/20 at 12:45; Status DC Torsemide (Demadex) 20 mg 1X ONCE PO ; Start 05/04/20 at 10:15; Stop 05/04/20 at 10:16; Status DC Torsemide (Demadex) 40 mg DAILY PO Last administered on 05/08/20at 08:05; Start 05/05/20 at 09:00 Diphenhydramine HCl (Benadryl) 25 mg PRN Q6HRS PRN IVP ITCHING Last administered on 05/04/20at 21:31; Start 05/04/20 at 21:30 Albuterol/ Ipratropium (Duoneb) 3 ml RTQID NEB Last administered on 05/05/20at 06:59; Start 05/05/20 at 08:00; Stop 05/05/20 at 10:00; Status DC Albuterol/ Ipratropium (Duoneb) 3 ml Q4HRS NEB Last administered on 05/09/20at 07:09; Start 05/05/20 at 10:00 Lactobacillus Rhamnosus (Culturelle) 1 cap BID PO Last administered on 05/08/20at 21:11; Start 05/05/20 at 21:00 Phenol (Chloraseptic) 1 spray PRN Q2HR PRN PO SORE THROAT Last administered on 05/07/20at 08:38; Start 05/05/20 at 12:00 Insulin Human Lispro (HumaLOG) 0-7 UNITS TIDWMEALS SQ Last administered on 05/08/20at 17:11; Start 05/05/20 at 12:30 Dextrose (Dextrose 50%-Water Syringe) 12.5 gm PRN Q15MIN PRN IV SEE COMMENTS; Start 05/05/20 at 12:00 Magnesium Sulfate 50 ml @ 25 mls/hr 1X ONCE IV Last administered on 05/07/20at 11:30; Start 05/07/20 at 11:00; Stop 05/07/20 at 12:59; Status DC Insulin Human Lispro (HumaLOG) 7 units 1X ONCE SQ Last administered on 05/07/20at 22:38; Start 05/07/20 at 22:30; Stop 05/07/20 at 22:33; Status DC Magnesium Sulfate 50 ml @ 25 mls/hr 1X ONCE IV Last administered on 05/08/20at 11:32; Start 05/08/20 at 11:30; Stop 05/08/20 at 13:29; Status DC Furosemide (Lasix) 40 mg 1X ONCE IVP Last administered on 05/08/20at 11:32; Start 05/08/20 at 11:45; Stop 05/08/20 at 11:46; Status DC Insulin Human Lispro (HumaLOG) 4 units 1X ONCE SQ Last administered on 05/08/20at 21:41; Start 05/08/20 at 21:30; Stop 05/08/20 at 21:31; Status DC Active Scripts Active Duoneb 0.5-3(2.5) Mg/3 Ml (Albuterol/Ipratropium) 3 Ml Ampul.neb 3 Ml NEB Q4HRS 14 Days Hydrocodone-Apap 5-325 (Hydrocodone Bit/Acetaminophen) 1 Tab Tablet 1 Tab PO PRN Q4HRS PRN Reported Allopurinol 100 Mg Tablet 1 Tab PO DAILY Trelegy Ellipta 100-62.5-25 (Fluticasone/Umeclidin/Vilanter) 1 Each Blst.w.dev 1 Each IH DAILY Prilosec Otc (Omeprazole Magnesium) 20 Mg Tablet.dr 40 Mg PO DAILY Entresto 49 mg-51 mg Tablet (Sacubitril/Valsartan) 1 Each Tablet 49-51 Mg PO BID K-Tab ER (Potassium Chloride) 20 Meq Tablet.er 20 Meq PO DAILY Montelukast Sodium Tablet (Montelukast Sodium) 10 Mg Tablet 10 Mg PO HS Levocetirizine Dihydrochloride 5 Mg Tablet 5 Mg PO DAILY Amitriptyline Hcl 25 Mg Tablet 25 Mg PO QHS Tylenol (Acetaminophen) 325 Mg Tablet 650 Mg PO PRN Q4HRS PRN Aspir 81 (Aspirin) 81 Mg Tablet.dr 1 Tab PO DAILY Metoprolol Succinate ( Xl ) (Metoprolol Succinate) 25 Mg Tab.er.24h 25 Mg PO DAILY Vitamin D3 (Cholecalciferol (Vitamin D3)) 1,000 Unit Tablet 1 Tab PO DAILY Torsemide 20 Mg Tablet 1 Tab PO DAILY Gabapentin (Gabapentin) 100 Mg Capsule 100 Mg PO TID Ferrous Sulfate 325 Mg Tablet 1 Tab PO DAILY Daliresp (Roflumilast) 500 Mcg Tablet 1 Tab PO DAILY Atorvastatin Calcium 20 Mg Tablet 20 Mg PO HS Requip (Ropinirole Hcl) 1 Mg Tablet 3 Tab PO QHS Proair Hfa Inhaler (Albuterol Sulfate) 8.5 Gm Hfa.aer.ad 1 Puff INH PRN Q6HRS PRN Levothyroxine Sodium 50 Mcg Tablet 1 Tab PO DAILY Vitals/I & O Vital Sign - Last 24 Hours 05/08/20 05/08/20 05/08/20 05/08/20 11:00 11:14 15:00 19:00 Temp 97.7 98.5 98.8 97.7 98.5 98.8 Pulse 92 78 105 Resp 18 18 20 B/P (MAP) 98/40 (59) 112/44 (66) 96/46 (63) Pulse Ox 98 98 97 98 O2 Delivery Room Air Nasal Cannula Room Air Room Air O2 Flow Rate 2.0 05/08/20 05/08/20 05/08/20 05/08/20 20:00 20:15 20:17 21:00 Pulse 105 B/P (MAP) 96/46 Pulse Ox 95 95 O2 Delivery Nasal Cannula Nasal Cannula Nasal Cannula O2 Flow Rate 2.0 2.0 2.0 05/08/20 05/08/20 05/08/20 05/09/20 21:10 22:10 23:00 03:00 Temp 98.8 98.3 98.8 98.3 Pulse 98 90 Resp 24 22 B/P (MAP) 121/36 (64) 99/38 (58) Pulse Ox 96 94 O2 Delivery Room Air Room Air Room Air Room Air 05/09/20 05/09/20 05/09/20 07:00 07:12 07:13 Temp 98.3 98.3 Pulse 91 Resp 16 B/P (MAP) 109/53 (71) Pulse Ox 97 95 95 O2 Delivery Room Air Nasal Cannula Nasal Cannula O2 Flow Rate 2.0 2.0 Intake and Output 05/08/20 05/08/20 05/09/20 15:00 23:00 07:00 Intake Total 700 ml 480 ml Output Total 0 ml Balance 700 ml 480 ml 0 ml Justicifation of Admission Dx: Justifications for Admission: Justification of Admission Dx: Yes CAMILA MORELOS MD May 09, 2020 09:47
[2020-05-09] MEDS: POTASSIUM CHLORIDE 20 MEQ TABLET.ER. PO SCH (10:11)
[2020-05-09] MEDS: ASPIRIN ENTERIC COATED 81 MG TABLET.DR. PO SCH (10:11)
[2020-05-09] MEDS: CHOLECALCIFEROL (VITAMIN D3) 1,000 UNIT TABLET PO SCH (10:11)
[2020-05-09] MEDS: LACTOBACILLUS RHAMNOSUS GG 1 CAPSULE. PO SCH ×2 (10:11→20:42)
[2020-05-09] MEDS: TORSEMIDE 20 MG TABLET. PO SCH (10:11)
[2020-05-09] MEDS: CETIRIZINE HCL 10 MG TABLET. PO SCH (10:11)
[2020-05-09] MEDS: BENZONATATE 100 MG CAPSULE. PO SCH ×3 (10:12→20:42)
[2020-05-09] MEDS: SACUBITRIL/VALSARTAN 49/51MG TABLET. PO SCH ×2 (10:12→20:42)
[2020-05-09] MEDS: ALLOPURINOL 100 MG TABLET. PO SCH (10:12)
[2020-05-09] MEDS: GABAPENTIN 100 MG CAPSULE. PO SCH ×3 (10:12→20:42)
[2020-05-09] MEDS: FERROUS SULFATE 325 MG TABLET. PO SCH (10:12)
[2020-05-09] MEDS: ROFLUMILAST 500 MCG TABLET. PO SCH (10:12)
[2020-05-09] MEDS: AZITHROMYCIN 250 MG TABLET. PO SCH (10:12)
[2020-05-09] MEDS: FLUTICASONE 50MCG/NASAL SPRAY 16GM BOTTLE. NS SCH (10:13)
[2020-05-09] MEDS: HYDROcodone/APAP 5/325MG 1 TAB TABLET PO PRN ×2 (10:20→14:25)
[2020-05-09] MEDS: INSULIN LISPRO 300 UNITS/3 ML VIAL. SQ SCH ×3 (10:25→17:02)
[2020-05-09 11:00] VITALS: BP 82/43
--- NOTE | 2020-05-09 11:40 | PDOC ---
PULMONARY PROGRESS NOTES DATE: 05/09/20 TIME: 11:38 Subjective reports she is not feeling well today continues to have wheezing, reports SOA and non productive cough remains on N/C Vitals Vital Signs Date Time Temp Pulse Resp B/P (MAP) Pulse Ox O2 Delivery O2 Flow Rate FiO2 05/09/20 11:18 Nasal Cannula 2.0 05/09/20 11:00 98.0 92 18 82/43 (56) 96 98.0 ROS: No Nausea, No Chest Pain General: Alert, Oriented X4, No acute distress HEENT: Other (nc at perr ) Lungs: Wheezing (has better air movement and wheezing less) Cardiovascular: S1, S2 Abdomen: Soft, Non-tender Neuro Exam: Alert Extremities: No Edema Skin: Warm Labs Laboratory Tests Test 05/07/20 16:29 05/07/20 20:52 05/08/20 06:55 05/08/20 07:26 Glucose (Fingerstick) 211 mg/dL (70-99) 306 mg/dL (70-99) 173 mg/dL (70-99) White Blood Count 13.6 x10^3/uL (4.0-11.0) Red Blood Count 3.65 x10^6/uL (3.50-5.40) Hemoglobin 11.1 g/dL (12.0-15.5) Hematocrit 33.2 % (36.0-47.0) Mean Corpuscular Volume 91 fL (79-100) Mean Corpuscular Hemoglobin 30 pg (25-35) Mean Corpuscular Hemoglobin Concent 33 g/dL (31-37) Red Cell Distribution Width 14.4 % (11.5-14.5) Platelet Count 198 x10^3/uL (140-400) Neutrophils (%) (Auto) 92 % (31-73) Lymphocytes (%) (Auto) 5 % (24-48) Monocytes (%) (Auto) 4 % (0-9) Eosinophils (%) (Auto) 0 % (0-3) Basophils (%) (Auto) 0 % (0-3) Neutrophils # (Auto) 12.4 x10^3/uL (1.8-7.7) Lymphocytes # (Auto) 0.7 x10^3/uL (1.0-4.8) Monocytes # (Auto) 0.5 x10^3/uL (0.0-1.1) Eosinophils # (Auto) 0.0 x10^3/uL (0.0-0.7) Basophils # (Auto) 0.0 x10^3/uL (0.0-0.2) Sodium Level 140 mmol/L (136-145) Potassium Level 4.5 mmol/L (3.5-5.1) Chloride Level 100 mmol/L (98-107) Carbon Dioxide Level 38 mmol/L (21-32) Anion Gap 2 (6-14) Blood Urea Nitrogen 36 mg/dL (-20) Creatinine 1.2 mg/dL (0.6-1.0) Estimated GFR (Cockcroft-Gault) 44.9 BUN/Creatinine Ratio 30 (-20) Glucose Level 177 mg/dL (70-99) Calcium Level 8.2 mg/dL (8.5-10.1) Total Bilirubin 0.2 mg/dL (0.2-1.0) Aspartate Amino Transf (AST/SGOT) 30 U/L (15-37) Alanine Aminotransferase (ALT/SGPT) 51 U/L (14-59) Alkaline Phosphatase 54 U/L (46-116) Total Protein 5.6 g/dL (6.4-8.2) Albumin 2.5 g/dL (3.4-5.0) Albumin/Globulin Ratio 0.8 (1.0-1.7) Test 05/08/20 11:33 05/08/20 17:00 05/08/20 20:28 05/09/20 07:26 Glucose (Fingerstick) 288 mg/dL (70-99) 219 mg/dL (70-99) 240 mg/dL (70-99) 177 mg/dL (70-99) Laboratory Tests Test 05/08/20 17:00 05/08/20 20:28 05/09/20 07:26 Glucose (Fingerstick) 219 mg/dL (70-99) 240 mg/dL (70-99) 177 mg/dL (70-99) Medications Active Scripts Medications Dose Route/Sig Max Daily Dose Days Date Category Allopurinol 100 Mg Tablet 1 Tab PO DAILY 05/01/20 Reported Trelegy Ellipta 100-62.5-25 (Fluticasone/Umeclidin/Vilanter) 1 Each Blst.w.dev 1 Each IH DAILY 03/17/20 Reported Prilosec Otc (Omeprazole Magnesium) 20 Mg Tablet.dr 40 Mg PO DAILY 03/17/20 Reported Duoneb 0.5-3(2.5) Mg/3 Ml (Albuterol/Ipratropium) 3 Ml Ampul.neb 3 Ml NEB Q4HRS 14 10/22/19 Rx Hydrocodone-Apap 5-325 (Hydrocodone Bit/Acetaminophen) 1 Tab Tablet 1 Tab PO PRN Q4HRS PRN 10/20/19 Rx Entresto 49 mg-51 mg Tablet (Sacubitril/Valsartan) 1 Each Tablet 49-51 Mg PO BID 07/30/19 Reported K-Tab ER (Potassium Chloride) 20 Meq Tablet.er 20 Meq PO DAILY 07/30/19 Reported Montelukast Sodium Tablet (Montelukast Sodium) 10 Mg Tablet 10 Mg PO HS 07/29/19 Reported Levocetirizine Dihydrochloride 5 Mg Tablet 5 Mg PO DAILY 07/29/19 Reported Amitriptyline Hcl 25 Mg Tablet 25 Mg PO QHS 07/29/19 Reported Tylenol (Acetaminophen) 325 Mg Tablet 650 Mg PO PRN Q4HRS PRN 07/29/19 Reported Aspir 81 (Aspirin) 81 Mg Tablet.dr 1 Tab PO DAILY 01/03/18 Reported Metoprolol Succinate ( Xl ) (Metoprolol Succinate) 25 Mg Tab.er.24h 25 Mg PO DAILY 01/03/18 Reported Vitamin D3 (Cholecalciferol (Vitamin D3)) 1,000 Unit Tablet 1 Tab PO DAILY 01/02/18 Reported Torsemide 20 Mg Tablet 1 Tab PO DAILY 01/02/18 Reported Gabapentin (Gabapentin) 100 Mg Capsule 100 Mg PO TID 01/02/18 Reported Ferrous Sulfate 325 Mg Tablet 1 Tab PO DAILY 09/23/17 Reported Daliresp (Roflumilast) 500 Mcg Tablet 1 Tab PO DAILY 09/23/17 Reported Atorvastatin Calcium 20 Mg Tablet 20 Mg PO HS 09/23/17 Reported Requip (Ropinirole Hcl) 1 Mg Tablet 3 Tab PO QHS 09/23/17 Reported Proair Hfa Inhaler (Albuterol Sulfate) 8.5 Gm Hfa.aer.ad 1 Puff INH PRN Q6HRS PRN 09/23/17 Reported Levothyroxine Sodium 50 Mcg Tablet 1 Tab PO DAILY 09/23/17 Reported Impression . IMPRESSION: 1. Dyspnea secondary to acute exacerbation of chronic obstructive pulmonary disease with persistent wheezing.? CHF. Pt had left heart cath 03/22 and had LVEDP of 27 2. No signs of pneumonia. 3. Chronic compensated hypercapnia. 4. allergic rhinitis 5. CXR 05/07 with possible mild CHF Plan . RECOMMENDATIONS: 1. The patient is still wheezing . holding metoprolol. s/p Mg So4 X 2days, will obtain CT chest today 2. Continue IV Solu-Medrol, will increase steroids dose today 3. continue plumicort 4. Empiric antibiotics for now. 5. COVID test is negative, 6. BD q 4hrs cont ics, cont flonase. Discussed with RN, and Patient IMELDA EASTMAN MD May 09, 2020 11:40
[2020-05-09 15:00] VITALS: BP 106/45
--- NOTE | 2020-05-09 15:39 | RAD ---
CT CHEST WO CONTRAST INDICATION: hypoxia/ wheezing COMPARISON STUDY: CT chest 11/15/2019. TECHNIQUE: Unenhanced axial images were obtained through the lungs and upper abdomen. Coronal and sagittal multiplanar reconstructions were also obtained. PQRS compliance statement: One or more of the following individualized dose reduction techniques were utilized for this examination: 1. Automated exposure control 2. Adjustment of the mA and/or kV according to patient size 3. Use of iterative reconstruction technique FINDINGS: Lungs and Airways: No pulmonary mass or consolidation. There are a couple of small nodules which are stable with access services representative nodule as follows: Stable right upper lobe 5 mm nodule (series 3 image 12). Normal central airways. Pleura: The pleural spaces are normal. Heart and Mediastinum: Left pectoral pacemaker. The visualized thyroid gland is normal in size and attenuation. No axillary or supraclavicular lymphadenopathy. No mediastinal, hilar or retrocrural lymphadenopathy. Normal cardiac size. No pericardial effusion. The great vessels of the thorax are normal. Abdomen: Cholecystectomy. Right renal calcification. Bones and Soft Tissues: Degenerative changes of the spine. IMPRESSION: No pulmonary mass or consolidation. Electronically signed by: Randell Atkins MD (05/09/2020 3:36 PM) [id number]
[2020-05-09 19:40] VITALS: BP 111/50
[2020-05-09] MEDS: AMITRIPTYLINE HCL 25 MG TABLET. PO SCH (20:42)
[2020-05-09] MEDS: rOPINIRole 1 MG TABLET. PO SCH (20:42)
[2020-05-09] MEDS: MONTELUKAST SODIUM 10 MG TABLET. PO SCH (20:42)
[2020-05-09] MEDS: ATORVASTATIN CALCIUM 20 MG TABLET PO SCH (20:43)
[2020-05-09 23:29] VITALS: BP 119/52
[2020-05-10] MEDS: methylPREDNISolone SOD SUCC PF 40 MG/ML VIAL. IV SCH ×2 (00:24→05:59)
[2020-05-10] MEDS: IPRATRPIUM/ALBUTEROL 0.5/2.5MG 3 ML NEBU. NEB SCH ×5 (02:13→20:03)
[2020-05-10 03:50] VITALS: BP 117/58
[2020-05-10 05:53] LABS: CALCIUM 7.9 mg/dL (8.5-10.1); GFR 55.5; POTASSIUM 4.6 mmol/L (3.5-5.1)
[2020-05-10] MEDS: LEVOTHYROXINE 50 MCG TABLET PO SCH (05:58)
[2020-05-10 06:13] LABS: BASO % 0 % (0-3); EOS % 0 % (0-3); HEMATOCRIT 32.6 % (36.0-47.0); HEMOGLOBIN 10.9 g/dL (12.0-15.5); LYMPH # 0.7 x10^3/uL (1.0-4.8); LYMPH % 5 % (24-48); MEAN CORPUSCULAR HEMOGLOBIN 31 pg (25-35); MEAN CORPUSCULAR HGB CONC 34 g/dL (31-37); MEAN CORPUSCULAR VOLUME 92 fL (79-100); MONO # 0.5 x10^3/uL (0.0-1.1); MONO % 3 % (0-9); NEUT % 92 % (31-73); PLATELET COUNT 153 x10^3/uL (140-400); RED BLOOD COUNT 3.54 x10^6/uL (3.50-5.40); RED CELL DISTRIBUTION WIDTH 14.8 % (11.5-14.5); WHITE BLOOD COUNT 15.3 x10^3/uL (4.0-11.0)
--- NOTE | 2020-05-10 07:32 | PDOC ---
PULMONARY PROGRESS NOTES DATE: 05/10/20 TIME: 07:28 Subjective feeling better, sob better, has cough, no pain, on home 02 2 lpm Vitals Vital Signs Date Time Temp Pulse Resp B/P (MAP) Pulse Ox O2 Delivery O2 Flow Rate FiO2 05/10/20 03:50 98.7 79 20 117/58 (77) 96 Nasal Cannula 2.0 98.7 ROS: No Nausea, No Chest Pain General: Alert, Oriented X4, No acute distress HEENT: Other (nc at perrl ) Lungs: Other (a few end exp wheezing good airmovement) Cardiovascular: S1, S2 Abdomen: Soft, Non-tender Neuro Exam: Alert Extremities: No Edema Skin: Warm Labs Laboratory Tests Test 05/08/20 11:33 05/08/20 17:00 05/08/20 20:28 05/09/20 07:26 Glucose (Fingerstick) 288 mg/dL (70-99) 219 mg/dL (70-99) 240 mg/dL (70-99) 177 mg/dL (70-99) Test 05/09/20 12:04 05/09/20 16:50 05/09/20 20:51 05/10/20 04:45 Glucose (Fingerstick) 233 mg/dL (70-99) 326 mg/dL (70-99) 285 mg/dL (70-99) White Blood Count 15.3 x10^3/uL (4.0-11.0) Red Blood Count 3.54 x10^6/uL (3.50-5.40) Hemoglobin 10.9 g/dL (12.0-15.5) Hematocrit 32.6 % (36.0-47.0) Mean Corpuscular Volume 92 fL (79-100) Mean Corpuscular Hemoglobin 31 pg (25-35) Mean Corpuscular Hemoglobin Concent 34 g/dL (31-37) Red Cell Distribution Width 14.8 % (11.5-14.5) Platelet Count 153 x10^3/uL (140-400) Neutrophils (%) (Auto) 92 % (31-73) Lymphocytes (%) (Auto) 5 % (24-48) Monocytes (%) (Auto) 3 % (0-9) Eosinophils (%) (Auto) 0 % (0-3) Basophils (%) (Auto) 0 % (0-3) Neutrophils # (Auto) 14.0 x10^3/uL (1.8-7.7) Lymphocytes # (Auto) 0.7 x10^3/uL (1.0-4.8) Monocytes # (Auto) 0.5 x10^3/uL (0.0-1.1) Eosinophils # (Auto) 0.0 x10^3/uL (0.0-0.7) Basophils # (Auto) 0.0 x10^3/uL (0.0-0.2) Sodium Level 138 mmol/L (136-145) Potassium Level 4.6 mmol/L (3.5-5.1) Chloride Level 99 mmol/L (98-107) Carbon Dioxide Level 39 mmol/L (21-32) Anion Gap 0 (6-14) Blood Urea Nitrogen 40 mg/dL (7-20) Creatinine 1.0 mg/dL (0.6-1.0) Estimated GFR (Cockcroft-Gault) 55.5 Glucose Level 199 mg/dL (70-99) Calcium Level 7.9 mg/dL (8.5-10.1) Test 05/10/20 07:26 Glucose (Fingerstick) 202 mg/dL (70-99) Laboratory Tests Test 05/09/20 12:04 05/09/20 16:50 05/09/20 20:51 05/10/20 04:45 Glucose (Fingerstick) 233 mg/dL (70-99) 326 mg/dL (70-99) 285 mg/dL (70-99) White Blood Count 15.3 x10^3/uL (4.0-11.0) Red Blood Count 3.54 x10^6/uL (3.50-5.40) Hemoglobin 10.9 g/dL (12.0-15.5) Hematocrit 32.6 % (36.0-47.0) Mean Corpuscular Volume 92 fL (79-100) Mean Corpuscular Hemoglobin 31 pg (25-35) Mean Corpuscular Hemoglobin Concent 34 g/dL (31-37) Red Cell Distribution Width 14.8 % (11.5-14.5) Platelet Count 153 x10^3/uL (140-400) Neutrophils (%) (Auto) 92 % (31-73) Lymphocytes (%) (Auto) 5 % (24-48) Monocytes (%) (Auto) 3 % (0-9) Eosinophils (%) (Auto) 0 % (0-3) Basophils (%) (Auto) 0 % (0-3) Neutrophils # (Auto) 14.0 x10^3/uL (1.8-7.7) Lymphocytes # (Auto) 0.7 x10^3/uL (1.0-4.8) Monocytes # (Auto) 0.5 x10^3/uL (0.0-1.1) Eosinophils # (Auto) 0.0 x10^3/uL (0.0-0.7) Basophils # (Auto) 0.0 x10^3/uL (0.0-0.2) Sodium Level 138 mmol/L (136-145) Potassium Level 4.6 mmol/L (3.5-5.1) Chloride Level 99 mmol/L (98-107) Carbon Dioxide Level 39 mmol/L (21-32) Anion Gap 0 (6-14) Blood Urea Nitrogen 40 mg/dL (7-20) Creatinine 1.0 mg/dL (0.6-1.0) Estimated GFR (Cockcroft-Gault) 55.5 Glucose Level 199 mg/dL (70-99) Calcium Level 7.9 mg/dL (8.5-10.1) Test 05/10/20 07:26 Glucose (Fingerstick) 202 mg/dL (70-99) Medications Active Scripts Medications Dose Route/Sig Max Daily Dose Days Date Category Allopurinol 100 Mg Tablet 1 Tab PO DAILY 05/01/20 Reported Trelegy Ellipta 100-62.5-25 (Fluticasone/Umeclidin/Vilanter) 1 Each Blst.w.dev 1 Each IH DAILY 03/17/20 Reported Prilosec Otc (Omeprazole Magnesium) 20 Mg Tablet.dr 40 Mg PO DAILY 03/17/20 Reported Duoneb 0.5-3(2.5) Mg/3 Ml (Albuterol/Ipratropium) 3 Ml Ampul.neb 3 Ml NEB Q4HRS 14 10/22/19 Rx Hydrocodone-Apap 5-325 (Hydrocodone Bit/Acetaminophen) 1 Tab Tablet 1 Tab PO PRN Q4HRS PRN 10/20/19 Rx Entresto 49 mg-51 mg Tablet (Sacubitril/Valsartan) 1 Each Tablet 49-51 Mg PO BID 07/30/19 Reported K-Tab ER (Potassium Chloride) 20 Meq Tablet.er 20 Meq PO DAILY 07/30/19 Reported Montelukast Sodium Tablet (Montelukast Sodium) 10 Mg Tablet 10 Mg PO HS 07/29/19 Reported Levocetirizine Dihydrochloride 5 Mg Tablet 5 Mg PO DAILY 07/29/19 Reported Amitriptyline Hcl 25 Mg Tablet 25 Mg PO QHS 07/29/19 Reported Tylenol (Acetaminophen) 325 Mg Tablet 650 Mg PO PRN Q4HRS PRN 07/29/19 Reported Aspir 81 (Aspirin) 81 Mg Tablet.dr 1 Tab PO DAILY 01/03/18 Reported Metoprolol Succinate ( Xl ) (Metoprolol Succinate) 25 Mg Tab.er.24h 25 Mg PO DAILY 01/03/18 Reported Vitamin D3 (Cholecalciferol (Vitamin D3)) 1,000 Unit Tablet 1 Tab PO DAILY 01/02/18 Reported Torsemide 20 Mg Tablet 1 Tab PO DAILY 01/02/18 Reported Gabapentin (Gabapentin) 100 Mg Capsule 100 Mg PO TID 01/02/18 Reported Ferrous Sulfate 325 Mg Tablet 1 Tab PO DAILY 09/23/17 Reported Daliresp (Roflumilast) 500 Mcg Tablet 1 Tab PO DAILY 09/23/17 Reported Atorvastatin Calcium 20 Mg Tablet 20 Mg PO HS 09/23/17 Reported Requip (Ropinirole Hcl) 1 Mg Tablet 3 Tab PO QHS 09/23/17 Reported Proair Hfa Inhaler (Albuterol Sulfate) 8.5 Gm Hfa.aer.ad 1 Puff INH PRN Q6HRS PRN 09/23/17 Reported Levothyroxine Sodium 50 Mcg Tablet 1 Tab PO DAILY 09/23/[address] No pulmonary mass or consolidation. Impression . IMPRESSION: 1. Dyspnea secondary to acute exacerbation of chronic obstructive pulmonary disease with persistent wheezing.? CHF. Pt had left heart cath 03/22 and had LVEDP of 27 2. No signs of pneumonia. 3. Chronic compensated hypercapnia. 4. allergic rhinitis Plan . RECOMMENDATIONS: 1. wheezing better, mostly upper airway wheezing . holding metoprolol. s/p Mg So4 X 2days, ct reviewed, No pulmonary mass or consolidation. 2. will change solumedrol to 80 q 8 hrs 3. continue plumicort 4. may dc abx 5. COVID test is negative, 6. BD q 4hrs cont ics, cont flonase. Discussed with RN, and Patient KING CHUNG MD May 10, 2020 07:32
[2020-05-10] MEDS: BUDESONIDE 0.5 MG/2 ML NEBU. NEB SCH ×2 (07:49→20:03)
[2020-05-10 07:59] VITALS: BP 114/56
[2020-05-10] MEDS: POTASSIUM CHLORIDE 20 MEQ TABLET.ER. PO SCH (08:01)
[2020-05-10] MEDS: CHOLECALCIFEROL (VITAMIN D3) 1,000 UNIT TABLET PO SCH (08:01)
[2020-05-10] MEDS: CETIRIZINE HCL 10 MG TABLET. PO SCH (08:01)
[2020-05-10] MEDS: PANTOPRAZOLE 40 MG TABLET.DR. PO SCH (08:01)
[2020-05-10] MEDS: GABAPENTIN 100 MG CAPSULE. PO SCH ×3 (08:01→21:23)
[2020-05-10] MEDS: FERROUS SULFATE 325 MG TABLET. PO SCH (08:02)
[2020-05-10] MEDS: SACUBITRIL/VALSARTAN 49/51MG TABLET. PO SCH ×2 (08:02→21:23)
[2020-05-10] MEDS: BENZONATATE 100 MG CAPSULE. PO SCH ×3 (08:03→21:25)
[2020-05-10] MEDS: ALLOPURINOL 100 MG TABLET. PO SCH (08:03)
[2020-05-10] MEDS: AZITHROMYCIN 250 MG TABLET. PO SCH (08:03)
[2020-05-10] MEDS: LACTOBACILLUS RHAMNOSUS GG 1 CAPSULE. PO SCH ×2 (08:03→21:23)
[2020-05-10] MEDS: ASPIRIN ENTERIC COATED 81 MG TABLET.DR. PO SCH (08:03)
[2020-05-10] MEDS: TORSEMIDE 20 MG TABLET. PO SCH (08:03)
[2020-05-10] MEDS: FLUTICASONE 50MCG/NASAL SPRAY 16GM BOTTLE. NS SCH (08:04)
[2020-05-10] MEDS: ROFLUMILAST 500 MCG TABLET. PO SCH (08:04)
[2020-05-10] MEDS: INSULIN LISPRO 300 UNITS/3 ML VIAL. SQ SCH ×4 (08:05→21:33)
[2020-05-10 08:35] LABS: % BANDS 1 % (0-9); % LYMPHS 5 % (24-48); % MONOS 2 % (0-10); % SEGS 92 % (35-66); PLT ESTIMATE ADEQUATE (ADEQUATE)
--- NOTE | 2020-05-10 10:49 | PDOC ---
PROGRESS NOTES Date of Service: DATE: 05/10/20 TIME: 10:47 Chief Complaint Chief Complaint impression Respiratory failure, suspect chronic obstructive pulmonary disease exacerbation Probable concomitant pneumonia, GRAM NEG COVID-19 results neg COPD CAD CHF Diabetes-Type II High Cholesterol Hypertension Hypothyroid 05/06 wheezing slow to resolve, discussed need for smoking cessation in room, present 05/09 WHEEZING SLOW TO RESOLVE, WORSE TODAY to do duonebs q 4 hrs at night mgso4 helped plan admit consult pulmonary med o2 support D/W RN INC STEROIDS History of Present Illness History of Present Illness 05/10/20. cough PERSISTENT she reports that her torsemide dose had been increased by Dr. Driscoll Continue IV Solu-Medrol 60 q 6hrs. has less wheezing hold metoprolol. Empiric antibiotics D/W RN REPEAT ABG 05/03/20. cont current, still weak, wheezing, plan OOB 05/02/20 Patient seen and examined - covid was negative Patient is in moderate distress with audible wheezing Discussed with RN Chart reviewed Vitals Vitals Vital Signs Date Time Temp Pulse Resp B/P (MAP) Pulse Ox O2 Delivery O2 Flow Rate FiO2 05/10/20 09:00 97 Nasal Cannula 2.0 05/10/20 08:02 80 114/56 05/10/20 07:59 98.0 18 98.0 Physical Exam General: Alert, Oriented X3, Cooperative, No acute distress Heart: Regular rate, Normal S1 Lungs: Other (a few end exp wheezing good airmovement) Abdomen: Soft, No tenderness Extremities: No clubbing, No cyanosis, No edema Skin: No rashes, No significant lesion Labs LABS CT CHEST WO CONTRAST INDICATION: hypoxia/ wheezing COMPARISON STUDY: CT chest 11/15/2019. TECHNIQUE: Unenhanced axial images were obtained through the lungs and upper abdomen. Coronal and sagittal multiplanar reconstructions were also obtained. PQRS compliance statement: One or more of the following individualized dose reduction techniques were utilized for this examination: 1. Automated exposure control 2. Adjustment of the mA and/or kV according to patient size 3. Use of iterative reconstruction technique FINDINGS: Lungs and Airways: No pulmonary mass or consolidation. There are a couple of small nodules which are stable with artist representative nodule as follows: Stable right upper lobe 5 mm nodule (series 3 image 12). Normal central airways. Pleura: The pleural spaces are normal. Heart and Mediastinum: Left pectoral pacemaker. The visualized thyroid gland is normal in size and attenuation. No axillary or supraclavicular lymphadenopathy. No mediastinal, hilar or retrocrural lymphadenopathy. Normal cardiac size. No pericardial effusion. The great vessels of the thorax are normal. Abdomen: Cholecystectomy. Right renal calcification. Bones and Soft Tissues: Degenerative changes of the spine. IMPRESSION: No pulmonary mass or consolidation. Electronically signed by: Brandi Pillai MD (05/09/2020 3:36 PM) [id number] DICTATED and SIGNED BY: BRANDI PILLAI MD DATE: 05/09/20 1536 Laboratory Tests Test 05/09/20 12:04 05/09/20 16:50 05/09/20 20:51 05/10/20 04:45 Glucose (Fingerstick) 233 mg/dL (70-99) 326 mg/dL (70-99) 285 mg/dL (70-99) White Blood Count 15.3 x10^3/uL (4.0-11.0) Red Blood Count 3.54 x10^6/uL (3.50-5.40) Hemoglobin 10.9 g/dL (12.0-15.5) Hematocrit 32.6 % (36.0-47.0) Mean Corpuscular Volume 92 fL (79-100) Mean Corpuscular Hemoglobin 31 pg (25-35) Mean Corpuscular Hemoglobin Concent 34 g/dL (31-37) Red Cell Distribution Width 14.8 % (11.5-14.5) Platelet Count 153 x10^3/uL (140-400) Neutrophils (%) (Auto) 92 % (31-73) Lymphocytes (%) (Auto) 5 % (24-48) Monocytes (%) (Auto) 3 % (0-9) Eosinophils (%) (Auto) 0 % (0-3) Basophils (%) (Auto) 0 % (0-3) Neutrophils # (Auto) 14.0 x10^3/uL (1.8-7.7) Lymphocytes # (Auto) 0.7 x10^3/uL (1.0-4.8) Monocytes # (Auto) 0.5 x10^3/uL (0.0-1.1) Eosinophils # (Auto) 0.0 x10^3/uL (0.0-0.7) Basophils # (Auto) 0.0 x10^3/uL (0.0-0.2) Segmented Neutrophils % 92 % (35-66) Band Neutrophils % 1 % (0-9) Lymphocytes % 5 % (24-48) Monocytes % 2 % (0-10) Platelet Estimate Adequate (ADEQUATE) Sodium Level 138 mmol/L (136-145) Potassium Level 4.6 mmol/L (3.5-5.1) Chloride Level 99 mmol/L (98-107) Carbon Dioxide Level 39 mmol/L (21-32) Anion Gap 0 (6-14) Blood Urea Nitrogen 40 mg/dL (7-20) Creatinine 1.0 mg/dL (0.6-1.0) Estimated GFR (Cockcroft-Gault) 55.5 Glucose Level 199 mg/dL (70-99) Calcium Level 7.9 mg/dL (8.5-10.1) Test 05/10/20 07:26 05/10/20 10:39 Glucose (Fingerstick) 202 mg/dL (70-99) 262 mg/dL (70-99) Assessment and Plan Assessmemt and Plan Problems Medical Problems: (1) COPD exacerbation Status: Acute Comment Review of Relevant I have reviewed the following items jon (where applicable) has been applied. Labs Laboratory Tests Test 05/08/20 11:33 05/08/20 17:00 05/08/20 20:28 05/09/20 07:26 Glucose (Fingerstick) 288 mg/dL (70-99) 219 mg/dL (70-99) 240 mg/dL (70-99) 177 mg/dL (70-99) Test 05/09/20 12:04 05/09/20 16:50 05/09/20 20:51 05/10/20 04:45 Glucose (Fingerstick) 233 mg/dL (70-99) 326 mg/dL (70-99) 285 mg/dL (70-99) White Blood Count 15.3 x10^3/uL (4.0-11.0) Red Blood Count 3.54 x10^6/uL (3.50-5.40) Hemoglobin 10.9 g/dL (12.0-15.5) Hematocrit 32.6 % (36.0-47.0) Mean Corpuscular Volume 92 fL (79-100) Mean Corpuscular Hemoglobin 31 pg (25-35) Mean Corpuscular Hemoglobin Concent 34 g/dL (31-37) Red Cell Distribution Width 14.8 % (11.5-14.5) Platelet Count 153 x10^3/uL (140-400) Neutrophils (%) (Auto) 92 % (31-73) Lymphocytes (%) (Auto) 5 % (24-48) Monocytes (%) (Auto) 3 % (0-9) Eosinophils (%) (Auto) 0 % (0-3) Basophils (%) (Auto) 0 % (0-3) Neutrophils # (Auto) 14.0 x10^3/uL (1.8-7.7) Lymphocytes # (Auto) 0.7 x10^3/uL (1.0-4.8) Monocytes # (Auto) 0.5 x10^3/uL (0.0-1.1) Eosinophils # (Auto) 0.0 x10^3/uL (0.0-0.7) Basophils # (Auto) 0.0 x10^3/uL (0.0-0.2) Segmented Neutrophils % 92 % (35-66) Band Neutrophils % 1 % (0-9) Lymphocytes % 5 % (24-48) Monocytes % 2 % (0-10) Platelet Estimate Adequate (ADEQUATE) Sodium Level 138 mmol/L (136-145) Potassium Level 4.6 mmol/L (3.5-5.1) Chloride Level 99 mmol/L (98-107) Carbon Dioxide Level 39 mmol/L (21-32) Anion Gap 0 (6-14) Blood Urea Nitrogen 40 mg/dL (7-20) Creatinine 1.0 mg/dL (0.6-1.0) Estimated GFR (Cockcroft-Gault) 55.5 Glucose Level 199 mg/dL (70-99) Calcium Level 7.9 mg/dL (8.5-10.1) Test 05/10/20 07:26 05/10/20 10:39 Glucose (Fingerstick) 202 mg/dL (70-99) 262 mg/dL (70-99) Laboratory Tests Test 05/09/20 12:04 05/09/20 16:50 05/09/20 20:51 05/10/20 04:45 Glucose (Fingerstick) 233 mg/dL (70-99) 326 mg/dL (70-99) 285 mg/dL (70-99) White Blood Count 15.3 x10^3/uL (4.0-11.0) Red Blood Count 3.54 x10^6/uL (3.50-5.40) Hemoglobin 10.9 g/dL (12.0-15.5) Hematocrit 32.6 % (36.0-47.0) Mean Corpuscular Volume 92 fL (79-100) Mean Corpuscular Hemoglobin 31 pg (25-35) Mean Corpuscular Hemoglobin Concent 34 g/dL (31-37) Red Cell Distribution Width 14.8 % (11.5-14.5) Platelet Count 153 x10^3/uL (140-400) Neutrophils (%) (Auto) 92 % (31-73) Lymphocytes (%) (Auto) 5 % (24-48) Monocytes (%) (Auto) 3 % (0-9) Eosinophils (%) (Auto) 0 % (0-3) Basophils (%) (Auto) 0 % (0-3) Neutrophils # (Auto) 14.0 x10^3/uL (1.8-7.7) Lymphocytes # (Auto) 0.7 x10^3/uL (1.0-4.8) Monocytes # (Auto) 0.5 x10^3/uL (0.0-1.1) Eosinophils # (Auto) 0.0 x10^3/uL (0.0-0.7) Basophils # (Auto) 0.0 x10^3/uL (0.0-0.2) Segmented Neutrophils % 92 % (35-66) Band Neutrophils % 1 % (0-9) Lymphocytes % 5 % (24-48) Monocytes % 2 % (0-10) Platelet Estimate Adequate (ADEQUATE) Sodium Level 138 mmol/L (136-145) Potassium Level 4.6 mmol/L (3.5-5.1) Chloride Level 99 mmol/L (98-107) Carbon Dioxide Level 39 mmol/L (21-32) Anion Gap 0 (6-14) Blood Urea Nitrogen 40 mg/dL (7-20) Creatinine 1.0 mg/dL (0.6-1.0) Estimated GFR (Cockcroft-Gault) 55.5 Glucose Level 199 mg/dL (70-99) Calcium Level 7.9 mg/dL (8.5-10.1) Test 05/10/20 07:26 05/10/20 10:39 Glucose (Fingerstick) 202 mg/dL (70-99) 262 mg/dL (70-99) Medications Current Medications Methylprednisolone Sodium Succinate (SOLU-Medrol 125MG VIAL) 125 mg 1X ONCE IV Last administered on 05/01/20at 14:10; Start 05/01/20 at 13:30; Stop 05/01/20 at 13:31; Status DC Albuterol Sulfate (Ventolin Neb Soln) 10 mg 1X ONCE CONT NEB Last administered on 05/01/20at 13:47; Start 05/01/20 at 13:30; Stop 05/01/20 at 13:31; Status DC Fentanyl Citrate (Fentanyl 2ml Vial) 50 mcg 1X ONCE IVP Last administered on 05/01/20at 14:10; Start 05/01/20 at 13:45; Stop 05/01/20 at 13:51; Status DC Sodium Chloride 1,000 ml @ 1,000 mls/hr 1X ONCE IV Last administered on 05/01/20at 14:12; Start 05/01/20 at 14:15; Stop 05/01/20 at 15:14; Status DC Azithromycin 250 ml @ 250 mls/hr 1X ONCE IV Last administered on 05/01/20at 14:26; Start 05/01/20 at 14:15; Stop 05/01/20 at 15:14; Status DC Ondansetron HCl (Zofran) 4 mg PRN Q8HRS PRN IV NAUSEA/VOMITING; Start 05/01/20 at 14:45; Stop 05/02/20 at 14:44; Status DC Fentanyl Citrate (Fentanyl 2ml Vial) 50 mcg PRN Q1HR PRN IV PAIN Last administered on 05/01/20at 16:12; Start 05/01/20 at 14:45; Stop 05/02/20 at 14:44; Status DC Acetaminophen (Tylenol) 650 mg PRN Q4HRS PRN PO MILD PAIN 1-3 Last administered on 05/04/20 20:45; Start 05/01/20 at 20:45 Albuterol Sulfate (Ventolin Neb Soln) 2.5 mg PRN Q6HRS PRN INH SHORTNESS OF BREATH; Start 05/01/20 at 20:45 Allopurinol (Zyloprim) 100 mg DAILY PO Last administered on 05/10/20 08:03; Start 05/02/20 at 09:00 Amitriptyline HCl (Elavil) 25 mg QHS PO Last administered on 05/09/20 20:42; Start 05/01/20 at 21:00 Aspirin (Ecotrin) 81 mg DAILY PO Last administered on 05/10/20 08:03; Start 05/02/20 at 09:00 Atorvastatin Calcium (Lipitor) 20 mg HS PO Last administered on 05/09/20 20:43; Start 05/01/20 at 21:00 Vitamin D (Vitamin D3) 1,000 unit DAILY PO Last administered on 05/10/20 08:01; Start 05/02/20 at 09:00 Ferrous Sulfate (Feosol) 325 mg DAILY PO Last administered on 05/10/20 08:02; Start 05/02/20 at 09:00 Gabapentin (Neurontin) 100 mg TID PO Last administered on 05/10/20 08:01; Start 05/01/20 at 21:00 Acetaminophen/ Hydrocodone Bitart (Lortab 5/325) 1 tab PRN Q4HRS PRN PO MODERATE PAIN 4-6 Last administered on 05/09/20 14:25; Start 05/01/20 at 20:45 Albuterol/ Ipratropium (Duoneb) 3 ml Q4HRS W/A NEB ; Start 05/01/20 at 22:00; Stop 05/02/20 at 10:59; Status DC Levothyroxine Sodium (Synthroid) 50 mcg DAILY06 PO Last administered on 05/10/20 05:58; Start 05/02/20 at 06:00 Metoprolol Succinate (Toprol Xl) 25 mg DAILY PO Last administered on 05/05/20 08:01; Start 05/02/20 at 09:00; Stop 05/05/20 at 09:58; Status DC Montelukast Sodium (Singulair) 10 mg HS PO Last administered on 05/09/20 20:42; Start 05/01/20 at 21:00 Roflumilast (Daliresp) 500 mcg DAILY PO Last administered on 05/10/20 08:04; Start 05/02/20 at 09:00 Ropinirole HCl (Requip) 3 mg QHS PO Last administered on 05/09/20 20:42; Start 05/01/20 at 21:00 Sacubitril/ Valsartan (Entresto 49 Mg-51 Mg) 1 tab BID PO Last administered on 05/10/20 08:02; Start 05/01/20 at 21:00 Torsemide (Demadex) 20 mg DAILY PO Last administered on 05/03/20 08:43; Start 05/02/20 at 09:00; Stop 05/04/20 at 09:55; Status DC Budesonide (Pulmicort) 0.5 mg RTBID NEB Last administered on 05/10/20 07:49; Start 05/02/20 at 08:00 Cetirizine HCl (ZyrTEC) 10 mg DAILY PO Last administered on 05/10/20 08:01; Start 05/02/20 at 09:00 Pantoprazole Sodium (Protonix) 40 mg DAILYAC PO Last administered on 05/10/20 08:01; Start 05/02/20 at 07:30 Potassium Chloride (Klor-Con) 20 meq [id number] PO Last administered on 05/10/20 08:01; Start 05/02/20 at 08:00 Methylprednisolone Sodium Succinate (SOLU-Medrol 40MG VIAL) 60 mg Q6HRS IV Last administered on 05/09/20at 07:24; Start 05/02/20 at 05:00; Stop 05/09/20 at 11:38; Status DC Azithromycin 500 mg/Sodium Chloride 250 ml @ 250 mls/hr Q24H IV Last administered on 05/03/20 11:59; Start 05/02/20 at 10:00; Stop 05/03/20 at 12:58; Status DC Albuterol/ Ipratropium (Combivent Respimat 20-100 Mcg) 1 puff Q4HRS W/A INH Last administered on 05/02/20at 17:39; Start 05/02/20 at 14:00; Stop 05/02/20 at 18:39; Status DC Albuterol/ Ipratropium (Duoneb) 3 ml Q4HRS NEB Last administered on 05/05/20at 00:13; Start 05/02/20 at 20:00; Stop 05/05/20 at 05:24; Status DC Fluticasone Propionate (Flonase) 2 spray DAILY NS Last administered on 05/10/20at 08:04; Start 05/03/20 at 12:00 Lactobacillus Rhamnosus (Culturelle) 1 cap BID PO ; Start 05/03/20 at 21:00; Status Cancel Azithromycin (Zithromax) 500 mg DAILY PO Last administered on 05/10/20at 08:03; Start 05/04/20 at 09:00 Benzonatate (Tessalon Perle) 100 mg [id number] PO Last administered on 05/10/20at 08:03; Start 05/04/20 at 10:00 Guaifenesin (Robitussin Dm) 10 ml PRN Q6HRS PRN PO COUGH Last administered on 05/05/20at 12:02; Start 05/04/20 at 10:00 Torsemide (Demadex) 40 mg DAILY PO Last administered on 05/04/20at 10:21; Start 05/05/20 at 09:00; Stop 05/04/20 at 12:45; Status DC Torsemide (Demadex) 20 mg 1X ONCE PO ; Start 05/04/20 at 10:15; Stop 05/04/20 at 10:16; Status DC Torsemide (Demadex) 40 mg DAILY PO Last administered on 05/10/20at 08:03; Start 05/05/20 at 09:00 Diphenhydramine HCl (Benadryl) 25 mg PRN Q6HRS PRN IVP ITCHING Last administered on 05/04/20at 21:31; Start 05/04/20 at 21:30 Albuterol/ Ipratropium (Duoneb) 3 ml RTQID NEB Last administered on 05/05/20at 06:59; Start 05/05/20 at 08:00; Stop 05/05/20 at 10:00; Status DC Albuterol/ Ipratropium (Duoneb) 3 ml Q4HRS NEB Last administered on 05/10/20 07:49; Start 05/05/20 at 10:00 Lactobacillus Rhamnosus (Culturelle) 1 cap BID PO Last administered on 05/10/20 08:03; Start 05/05/20 at 21:00 Phenol (Chloraseptic) 1 spray PRN Q2HR PRN PO SORE THROAT Last administered on 05/07/20at 08:38; Start 05/05/20 at 12:00 Insulin Human Lispro (HumaLOG) 0-7 UNITS TIDWMEALS SQ Last administered on 05/10/20at 08:05; Start 05/05/20 at 12:30 Dextrose (Dextrose 50%-Water Syringe) 12.5 gm PRN Q15MIN PRN IV SEE COMMENTS; Start 05/05/20 at 12:00 Magnesium Sulfate 50 ml @ 25 mls/hr 1X ONCE IV Last administered on 05/07/20at 11:30; Start 05/07/20 at 11:00; Stop 05/07/20 at 12:59; Status DC Insulin Human Lispro (HumaLOG) 7 units 1X ONCE SQ Last administered on 05/07/20at 22:38; Start 05/07/20 at 22:30; Stop 05/07/20 at 22:33; Status DC Magnesium Sulfate 50 ml @ 25 mls/hr 1X ONCE IV Last administered on 05/08/20at 11:32; Start 05/08/20 at 11:30; Stop 05/08/20 at 13:29; Status DC Furosemide (Lasix) 40 mg 1X ONCE IVP Last administered on 05/08/20at 11:32; Start 05/08/20 at 11:45; Stop 05/08/20 at 11:46; Status DC Insulin Human Lispro (HumaLOG) 4 units 1X ONCE SQ Last administered on 05/08/20at 21:41; Start 05/08/20 at 21:30; Stop 05/08/20 at 21:31; Status DC Methylprednisolone Sodium Succinate (SOLU-Medrol 40MG VIAL) 80 mg Q6HRS IV Last administered on 05/10/20at 05:59; Start 05/09/20 at 12:00; Stop 05/10/20 at 07:32; Status DC Methylprednisolone Sodium Succinate (SOLU-Medrol 125MG VIAL) 80 mg Q8HRS IV ; Start 05/10/20 at 14:00 Active Scripts Active Duoneb 0.5-3(2.5) Mg/3 Ml (Albuterol/Ipratropium) 3 Ml Ampul.neb 3 Ml NEB Q4HRS 14 Days Hydrocodone-Apap 5-325 (Hydrocodone Bit/Acetaminophen) 1 Tab Tablet 1 Tab PO PRN Q4HRS PRN Reported Allopurinol 100 Mg Tablet 1 Tab PO DAILY Trelegy Ellipta 100-62.5-25 (Fluticasone/Umeclidin/Vilanter) 1 Each Blst.w.dev 1 Each IH DAILY Prilosec Otc (Omeprazole Magnesium) 20 Mg Tablet.dr 40 Mg PO DAILY Entresto 49 mg-51 mg Tablet (Sacubitril/Valsartan) 1 Each Tablet 49-51 Mg PO BID K-Tab ER (Potassium Chloride) 20 Meq Tablet.er 20 Meq PO DAILY Montelukast Sodium Tablet (Montelukast Sodium) 10 Mg Tablet 10 Mg PO HS Levocetirizine Dihydrochloride 5 Mg Tablet 5 Mg PO DAILY Amitriptyline Hcl 25 Mg Tablet 25 Mg PO QHS Tylenol (Acetaminophen) 325 Mg Tablet 650 Mg PO PRN Q4HRS PRN Aspir 81 (Aspirin) 81 Mg Tablet.dr 1 Tab PO DAILY Metoprolol Succinate ( Xl ) (Metoprolol Succinate) 25 Mg Tab.er.24h 25 Mg PO DAILY Vitamin D3 (Cholecalciferol (Vitamin D3)) 1,000 Unit Tablet 1 Tab PO DAILY Torsemide 20 Mg Tablet 1 Tab PO DAILY Gabapentin (Gabapentin) 100 Mg Capsule 100 Mg PO TID Ferrous Sulfate 325 Mg Tablet 1 Tab PO DAILY Daliresp (Roflumilast) 500 Mcg Tablet 1 Tab PO DAILY Atorvastatin Calcium 20 Mg Tablet 20 Mg PO HS Requip (Ropinirole Hcl) 1 Mg Tablet 3 Tab PO QHS Proair Hfa Inhaler (Albuterol Sulfate) 8.5 Gm Hfa.aer.ad 1 Puff INH PRN Q6HRS PRN Levothyroxine Sodium 50 Mcg Tablet 1 Tab PO DAILY Vitals/I & O Vital Sign - Last 24 Hours 05/09/20 05/09/20 05/09/20 05/09/20 11:00 11:18 12:47 14:25 Temp 98.0 98.0 Pulse 92 Resp 18 B/P (MAP) 82/43 (56) Pulse Ox 96 96 96 O2 Delivery Room Air Nasal Cannula Nasal Cannula Nasal Cannula O2 Flow Rate 2.0 2.0 2.0 05/09/20 05/09/20 05/09/20 05/09/20 15:00 15:40 16:29 19:40 Temp 98.0 98.6 98.0 98.6 Pulse 105 94 Resp 18 21 B/P (MAP) 106/45 (65) 111/50 (70) Pulse Ox 97 97 95 O2 Delivery Room Air Nasal Cannula Nasal Cannula Nasal Cannula O2 Flow Rate 2.0 2.0 2.0 05/09/20 05/09/20 05/09/20 05/09/20 19:50 20:25 20:25 20:42 Pulse 94 B/P (MAP) 111/50 Pulse Ox 97 97 O2 Delivery Nasal Cannula Nasal Cannula Nasal Cannula O2 Flow Rate 2.0 2.0 2.0 05/09/20 05/10/20 05/10/20 05/10/20 23:29 03:50 07:59 08:00 Temp 98.6 98.7 98.0 98.6 98.7 98.0 Pulse 90 79 80 Resp 22 20 18 B/P (MAP) 119/52 (74) 117/58 (77) 114/56 (75) Pulse Ox 96 96 97 O2 Delivery Nasal Cannula Nasal Cannula Room Air Nasal Cannula O2 Flow Rate 2.0 2.0 2.0 05/10/20 05/10/20 08:02 09:00 Pulse 80 B/P (MAP) 114/56 Pulse Ox 97 O2 Delivery Nasal Cannula O2 Flow Rate 2.0 Intake and Output 05/09/20 05/09/20 05/10/20 15:00 23:00 07:00 Intake Total 780 ml 240 ml 420 ml Balance 780 ml 240 ml 420 ml Justicifation of Admission Dx: Justifications for Admission: Justification of Admission Dx: Yes CAMILA MORELOS MD May 10, 2020 10:49
[2020-05-10 10:54] VITALS: BP 105/48
[2020-05-10 12:38] LABS: BASE EXCESS COOX 8 mmol/L (-3-3); HCO3 COOX 31 mmol/L (21-28); METHEMOGLOBIN 0.2 % (0.0-1.9); OXYHEMOGLOBIN 96.9 %; PCO2 COOX 39 mmHg (35-46); PO2 COOX 96 mmHg (65-108); SAT O2 COOX 97 % (92-99)
[2020-05-10] MEDS: HYDROcodone/APAP 5/325MG 1 TAB TABLET PO PRN (14:14)
[2020-05-10] MEDS: methylPREDNISolone SOD SUCC PF 125 MG/2 ML VIAL. IV SCH ×2 (14:15→21:24)
[2020-05-10 15:43] VITALS: BP 117/48
--- NOTE | 2020-05-10 15:53 | NUR ---
Pt. Complained of SOA and said that she did not feel that she was getting any oxygen from her cannula. Checked SpO2, it was 97%. Checked flow, it was at 2 LPM. Changed the cannula to help. Will continue to monitor.
[2020-05-10 19:28] VITALS: BP 112/49
[2020-05-10] MEDS: MONTELUKAST SODIUM 10 MG TABLET. PO SCH (21:23)
[2020-05-10] MEDS: ATORVASTATIN CALCIUM 20 MG TABLET PO SCH (21:23)
[2020-05-10] MEDS: rOPINIRole 1 MG TABLET. PO SCH (21:23)
[2020-05-10] MEDS: AMITRIPTYLINE HCL 25 MG TABLET. PO SCH (21:23)
[2020-05-10 23:50] VITALS: BP 110/38
[2020-05-11] MEDS: IPRATRPIUM/ALBUTEROL 0.5/2.5MG 3 ML NEBU. NEB SCH ×6 (00:56→20:31)
[2020-05-11 03:30] VITALS: BP 122/53
[2020-05-11] MEDS: LEVOTHYROXINE 50 MCG TABLET PO SCH (05:54)
[2020-05-11] MEDS: methylPREDNISolone SOD SUCC PF 125 MG/2 ML VIAL. IV SCH ×3 (05:54→20:44)
[2020-05-11] MEDS: BUDESONIDE 0.5 MG/2 ML NEBU. NEB SCH ×2 (07:25→20:31)
[2020-05-11 07:59] VITALS: BP 112/52
[2020-05-11] MEDS ORDERED: INSULIN LISPRO 300 UNITS/3 ML VIAL. SQ ONE ×3 (08:00→23:30)
[2020-05-11] MEDS: ASPIRIN ENTERIC COATED 81 MG TABLET.DR. PO SCH (08:13)
[2020-05-11] MEDS: ROFLUMILAST 500 MCG TABLET. PO SCH (08:13)
[2020-05-11] MEDS: GABAPENTIN 100 MG CAPSULE. PO SCH ×3 (08:13→20:44)
[2020-05-11] MEDS: PANTOPRAZOLE 40 MG TABLET.DR. PO SCH (08:13)
[2020-05-11] MEDS: ALLOPURINOL 100 MG TABLET. PO SCH (08:13)
[2020-05-11] MEDS: CHOLECALCIFEROL (VITAMIN D3) 1,000 UNIT TABLET PO SCH (08:13)
[2020-05-11] MEDS: CETIRIZINE HCL 10 MG TABLET. PO SCH (08:13)
[2020-05-11] MEDS: BENZONATATE 100 MG CAPSULE. PO SCH ×3 (08:13→20:44)
[2020-05-11] MEDS: AZITHROMYCIN 250 MG TABLET. PO SCH (08:14)
[2020-05-11] MEDS: FERROUS SULFATE 325 MG TABLET. PO SCH (08:14)
[2020-05-11] MEDS: POTASSIUM CHLORIDE 20 MEQ TABLET.ER. PO SCH (08:14)
[2020-05-11] MEDS: SACUBITRIL/VALSARTAN 49/51MG TABLET. PO SCH ×2 (08:14→20:44)
[2020-05-11] MEDS: TORSEMIDE 20 MG TABLET. PO SCH (08:14)
[2020-05-11] MEDS: LACTOBACILLUS RHAMNOSUS GG 1 CAPSULE. PO SCH ×2 (08:14→20:44)
[2020-05-11] MEDS: FLUTICASONE 50MCG/NASAL SPRAY 16GM BOTTLE. NS SCH (08:15)
--- NOTE | 2020-05-11 08:16 | PDOC ---
PULMONARY PROGRESS NOTES DATE: 05/11/20 TIME: 08:15 Subjective feeling better, sob better, has cough, no pain, on home 02 2 lpm Vitals Vital Signs Date Time Temp Pulse Resp B/P (MAP) Pulse Ox O2 Delivery O2 Flow Rate FiO2 05/11/20 07:59 98.2 92 20 112/52 (72) 93 Nasal Cannula 2.0 98.2 ROS: No Nausea, No Chest Pain General: Alert, Oriented X4, No acute distress HEENT: Other (nc at perrl ) Lungs: Other (a few end exp wheezing good airmovement) Cardiovascular: S1, S2 Abdomen: Soft, Non-tender Neuro Exam: Alert Extremities: No Edema Skin: Warm Labs Laboratory Tests Test 05/09/20 12:04 05/09/20 16:50 05/09/20 20:51 05/10/20 04:45 Glucose (Fingerstick) 233 mg/dL (70-99) 326 mg/dL (70-99) 285 mg/dL (70-99) White Blood Count 15.3 x10^3/uL (4.0-11.0) Red Blood Count 3.54 x10^6/uL (3.50-5.40) Hemoglobin 10.9 g/dL (12.0-15.5) Hematocrit 32.6 % (36.0-47.0) Mean Corpuscular Volume 92 fL (79-100) Mean Corpuscular Hemoglobin 31 pg (25-35) Mean Corpuscular Hemoglobin Concent 34 g/dL (31-37) Red Cell Distribution Width 14.8 % (11.5-14.5) Platelet Count 153 x10^3/uL (140-400) Neutrophils (%) (Auto) 92 % (31-73) Lymphocytes (%) (Auto) 5 % (24-48) Monocytes (%) (Auto) 3 % (0-9) Eosinophils (%) (Auto) 0 % (0-3) Basophils (%) (Auto) 0 % (0-3) Neutrophils # (Auto) 14.0 x10^3/uL (1.8-7.7) Lymphocytes # (Auto) 0.7 x10^3/uL (1.0-4.8) Monocytes # (Auto) 0.5 x10^3/uL (0.0-1.1) Eosinophils # (Auto) 0.0 x10^3/uL (0.0-0.7) Basophils # (Auto) 0.0 x10^3/uL (0.0-0.2) Segmented Neutrophils % 92 % (35-66) Band Neutrophils % 1 % (0-9) Lymphocytes % 5 % (24-48) Monocytes % 2 % (0-10) Platelet Estimate Adequate (ADEQUATE) Sodium Level 138 mmol/L (136-145) Potassium Level 4.6 mmol/L (3.5-5.1) Chloride Level 99 mmol/L (98-107) Carbon Dioxide Level 39 mmol/L (21-32) Anion Gap 0 (6-14) Blood Urea Nitrogen 40 mg/dL (7-20) Creatinine 1.0 mg/dL (0.6-1.0) Estimated GFR (Cockcroft-Gault) 55.5 Glucose Level 199 mg/dL (70-99) Calcium Level 7.9 mg/dL (8.5-10.1) Test 05/10/20 07:26 05/10/20 10:39 05/10/20 12:15 05/10/20 16:46 Glucose (Fingerstick) 202 mg/dL (70-99) 262 mg/dL (70-99) 231 mg/dL (70-99) O2 Saturation 97 % (92-99) Arterial Blood pH 7.52 (7.35-7.45) Arterial Blood pCO2 at Patient Temp 39 mmHg (35-46) Arterial Blood pO2 at Patient Temp 96 mmHg (65-108) Arterial Blood HCO3 31 mmol/L (21-28) Arterial Blood Base Excess 8 mmol/L (-3-3) Oxyhemoglobin 96.9 % Methemoglobin 0.2 % (0.0-1.9) Carbon Monoxide, Quantitative 0.3 % (0.0-1.9) FiO2 28 Test 05/10/20 20:43 05/11/20 07:41 Glucose (Fingerstick) 299 mg/dL (70-99) 170 mg/dL (70-99) Laboratory Tests Test 05/10/20 10:39 05/10/20 12:15 05/10/20 16:46 05/10/20 20:43 Glucose (Fingerstick) 262 mg/dL (70-99) 231 mg/dL (70-99) 299 mg/dL (70-99) O2 Saturation 97 % (92-99) Arterial Blood pH 7.52 (7.35-7.45) Arterial Blood pCO2 at Patient Temp 39 mmHg (35-46) Arterial Blood pO2 at Patient Temp 96 mmHg (65-108) Arterial Blood HCO3 31 mmol/L (21-28) Arterial Blood Base Excess 8 mmol/L (-3-3) Oxyhemoglobin 96.9 % Methemoglobin 0.2 % (0.0-1.9) Carbon Monoxide, Quantitative 0.3 % (0.0-1.9) FiO2 28 Test 05/11/20 07:41 Glucose (Fingerstick) 170 mg/dL (70-99) Medications Active Scripts Medications Dose Route/Sig Max Daily Dose Days Date Category Allopurinol 100 Mg Tablet 1 Tab PO DAILY 05/01/20 Reported Trelegy Ellipta 100-62.5-25 (Fluticasone/Umeclidin/Vilanter) 1 Each Blst.w.dev 1 Each IH DAILY 03/17/20 Reported Prilosec Otc (Omeprazole Magnesium) 20 Mg Tablet. 40 Mg PO DAILY 03/17/20 Reported Duoneb 0.5-3(2.5) Mg/3 Ml (Albuterol/Ipratropium) 3 Ml Ampul.neb 3 Ml NEB Q4HRS 14 10/22/19 Rx Hydrocodone-Apap 5-325 (Hydrocodone Bit/Acetaminophen) 1 Tab Tablet 1 Tab PO PRN Q4HRS PRN 10/20/19 Rx Entresto 49 mg-51 mg Tablet (Sacubitril/Valsartan) 1 Each Tablet 49-51 Mg PO BID 07/30/19 Reported K-Tab ER (Potassium Chloride) 20 Meq Tablet.er 20 Meq PO DAILY 07/30/19 Reported Montelukast Sodium Tablet (Montelukast Sodium) 10 Mg Tablet 10 Mg PO HS 07/29/19 Reported Levocetirizine Dihydrochloride 5 Mg Tablet 5 Mg PO DAILY 07/29/19 Reported Amitriptyline Hcl 25 Mg Tablet 25 Mg PO QHS 07/29/19 Reported Tylenol (Acetaminophen) 325 Mg Tablet 650 Mg PO PRN Q4HRS PRN 07/29/19 Reported Aspir 81 (Aspirin) 81 Mg Tablet.dr 1 Tab PO DAILY 01/03/18 Reported Metoprolol Succinate ( Xl ) (Metoprolol Succinate) 25 Mg Tab.er.24h 25 Mg PO DAILY 01/03/18 Reported Vitamin D3 (Cholecalciferol (Vitamin D3)) 1,000 Unit Tablet 1 Tab PO DAILY 01/02/18 Reported Torsemide 20 Mg Tablet 1 Tab PO DAILY 01/02/18 Reported Gabapentin (Gabapentin) 100 Mg Capsule 100 Mg PO TID 01/02/18 Reported Ferrous Sulfate 325 Mg Tablet 1 Tab PO DAILY 09/23/17 Reported Daliresp (Roflumilast) 500 Mcg Tablet 1 Tab PO DAILY 09/23/17 Reported Atorvastatin Calcium 20 Mg Tablet 20 Mg PO HS 09/23/17 Reported Requip (Ropinirole Hcl) 1 Mg Tablet 3 Tab PO QHS 09/23/17 Reported Proair Hfa Inhaler (Albuterol Sulfate) 8.5 Gm Hfa.aer.ad 1 Puff INH PRN Q6HRS PRN 09/23/17 Reported Levothyroxine Sodium 50 Mcg Tablet 1 Tab PO DAILY 09/23/[address] No pulmonary mass or consolidation. Impression . IMPRESSION: 1. Dyspnea secondary to acute exacerbation of chronic obstructive pulmonary disease with persistent wheezing.? CHF. Pt had left heart cath 03/22 and had LVEDP of 27 2. No signs of pneumonia. 3. Chronic compensated hypercapnia. 4. allergic rhinitis Plan . RECOMMENDATIONS: 1. wheezing, mostly upper airway wheezing . holding metoprolol. s/p Mg So4 X 2days, ct reviewed, No pulmonary mass or consolidation. am cxr 2. cont solumedrol 80 q 8 hrs 3. continue plumicort 4. may dc abx 5. COVID test is negative, 6. BD q 4hrs cont ics, cont flonase. Discussed with RN, and Patient KING CHUNG MD May 11, 2020 08:16
--- NOTE | 2020-05-11 10:28 | PDOC ---
PROGRESS NOTES Date of Service: DATE: 05/11/20 TIME: 10:28 Chief Complaint Chief Complaint impression Respiratory failure, suspect chronic obstructive pulmonary disease exacerbation Probable concomitant pneumonia, GRAM NEG COVID-19 results neg COPD CAD CHF Diabetes-Type II High Cholesterol Hypertension Hypothyroid 05/06 wheezing slow to resolve, discussed need for smoking cessation in room, present 05/09 WHEEZING SLOW TO RESOLVE, WORSE TODAY to do duonebs q 4 hrs at night mgso4 helped plan admit consult pulmonary med o2 support D/W RN INC STEROIDS History of Present Illness History of Present Illness 05/11/20. cough PERSISTENT she reports that her torsemide dose had been increased by Dr. Driscoll Continue IV Solu-Medrol 60 q 6hrs. has MILD-MOD wheezing hold metoprolol. Empiric antibiotics D/W RN REPEAT ABG reviewed D/W 05/03/20. cont current, still weak, wheezing, plan OOB 05/02/20 Patient seen and examined - covid was negative Patient is in moderate distress with audible wheezing Discussed with RN Chart reviewed Vitals Vitals Vital Signs Date Time Temp Pulse Resp B/P (MAP) Pulse Ox O2 Delivery O2 Flow Rate FiO2 05/11/20 08:14 92 112/52 05/11/20 08:00 Nasal Cannula 2.0 05/11/20 07:59 98.2 20 93 98.2 Physical Exam General: Alert, Oriented X3, Cooperative, No acute distress Heart: Regular rate, Normal S1 Lungs: Other (a few end exp wheezing good airmovement) Abdomen: Soft, No tenderness Extremities: No clubbing, No cyanosis, No edema Skin: No rashes, No significant lesion Labs LABS Laboratory Tests Test 05/10/20 10:39 05/10/20 12:15 05/10/20 16:46 05/10/20 20:43 Glucose (Fingerstick) 262 mg/dL (70-99) 231 mg/dL (70-99) 299 mg/dL (70-99) O2 Saturation 97 % (92-99) Arterial Blood pH 7.52 (7.35-7.45) Arterial Blood pCO2 at Patient Temp 39 mmHg (35-46) Arterial Blood pO2 at Patient Temp 96 mmHg (65-108) Arterial Blood HCO3 31 mmol/L (21-28) Arterial Blood Base Excess 8 mmol/L (-3-3) Oxyhemoglobin 96.9 % Methemoglobin 0.2 % (0.0-1.9) Carbon Monoxide, Quantitative 0.3 % (0.0-1.9) FiO2 28 Test 05/11/20 07:41 Glucose (Fingerstick) 170 mg/dL (70-99) Assessment and Plan Assessmemt and Plan Problems Medical Problems: (1) COPD exacerbation Status: Acute Comment Review of Relevant I have reviewed the following items jon (where applicable) has been applied. Labs Laboratory Tests Test 05/09/20 12:04 05/09/20 16:50 05/09/20 20:51 05/10/20 04:45 Glucose (Fingerstick) 233 mg/dL (70-99) 326 mg/dL (70-99) 285 mg/dL (70-99) White Blood Count 15.3 x10^3/uL (4.0-11.0) Red Blood Count 3.54 x10^6/uL (3.50-5.40) Hemoglobin 10.9 g/dL (12.0-15.5) Hematocrit 32.6 % (36.0-47.0) Mean Corpuscular Volume 92 fL (79-100) Mean Corpuscular Hemoglobin 31 pg (25-35) Mean Corpuscular Hemoglobin Concent 34 g/dL (31-37) Red Cell Distribution Width 14.8 % (11.5-14.5) Platelet Count 153 x10^3/uL (140-400) Neutrophils (%) (Auto) 92 % (31-73) Lymphocytes (%) (Auto) 5 % (24-48) Monocytes (%) (Auto) 3 % (0-9) Eosinophils (%) (Auto) 0 % (0-3) Basophils (%) (Auto) 0 % (0-3) Neutrophils # (Auto) 14.0 x10^3/uL (1.8-7.7) Lymphocytes # (Auto) 0.7 x10^3/uL (1.0-4.8) Monocytes # (Auto) 0.5 x10^3/uL (0.0-1.1) Eosinophils # (Auto) 0.0 x10^3/uL (0.0-0.7) Basophils # (Auto) 0.0 x10^3/uL (0.0-0.2) Segmented Neutrophils % 92 % (35-66) Band Neutrophils % 1 % (0-9) Lymphocytes % 5 % (24-48) Monocytes % 2 % (0-10) Platelet Estimate Adequate (ADEQUATE) Sodium Level 138 mmol/L (136-145) Potassium Level 4.6 mmol/L (3.5-5.1) Chloride Level 99 mmol/L (98-107) Carbon Dioxide Level 39 mmol/L (21-32) Anion Gap 0 (6-14) Blood Urea Nitrogen 40 mg/dL (7-20) Creatinine 1.0 mg/dL (0.6-1.0) Estimated GFR (Cockcroft-Gault) 55.5 Glucose Level 199 mg/dL (70-99) Calcium Level 7.9 mg/dL (8.5-10.1) Test 05/10/20 07:26 05/10/20 10:39 05/10/20 12:15 05/10/20 16:46 Glucose (Fingerstick) 202 mg/dL (70-99) 262 mg/dL (70-99) 231 mg/dL (70-99) O2 Saturation 97 % (92-99) Arterial Blood pH 7.52 (7.35-7.45) Arterial Blood pCO2 at Patient Temp 39 mmHg (35-46) Arterial Blood pO2 at Patient Temp 96 mmHg (65-108) Arterial Blood HCO3 31 mmol/L (21-28) Arterial Blood Base Excess 8 mmol/L (-3-3) Oxyhemoglobin 96.9 % Methemoglobin 0.2 % (0.0-1.9) Carbon Monoxide, Quantitative 0.3 % (0.0-1.9) FiO2 28 Test 05/10/20 20:43 05/11/20 07:41 Glucose (Fingerstick) 299 mg/dL (70-99) 170 mg/dL (70-99) Laboratory Tests Test 05/10/20 10:39 05/10/20 12:15 05/10/20 16:46 05/10/20 20:43 Glucose (Fingerstick) 262 mg/dL (70-99) 231 mg/dL (70-99) 299 mg/dL (70-99) O2 Saturation 97 % (92-99) Arterial Blood pH 7.52 (7.35-7.45) Arterial Blood pCO2 at Patient Temp 39 mmHg (35-46) Arterial Blood pO2 at Patient Temp 96 mmHg (65-108) Arterial Blood HCO3 31 mmol/L (21-28) Arterial Blood Base Excess 8 mmol/L (-3-3) Oxyhemoglobin 96.9 % Methemoglobin 0.2 % (0.0-1.9) Carbon Monoxide, Quantitative 0.3 % (0.0-1.9) FiO2 28 Test 05/11/20 07:41 Glucose (Fingerstick) 170 mg/dL (70-99) Medications Current Medications Methylprednisolone Sodium Succinate (SOLU-Medrol 125MG VIAL) 125 mg 1X ONCE IV Last administered on 05/01/20at 14:10; Start 05/01/20 at 13:30; Stop 05/01/20 at 13:31; Status DC Albuterol Sulfate (Ventolin Neb Soln) 10 mg 1X ONCE CONT NEB Last administered on 05/01/20at 13:47; Start 05/01/20 at 13:30; Stop 05/01/20 at 13:31; Status DC Fentanyl Citrate (Fentanyl 2ml Vial) 50 mcg 1X ONCE IVP Last administered on 05/01/20at 14:10; Start 05/01/20 at 13:45; Stop 05/01/20 at 13:51; Status DC Sodium Chloride 1,000 ml @ 1,000 mls/hr 1X ONCE IV Last administered on 05/01/20at 14:12; Start 05/01/20 at 14:15; Stop 05/01/20 at 15:14; Status DC Azithromycin 250 ml @ 250 mls/hr 1X ONCE IV Last administered on 05/01/20at 14:26; Start 05/01/20 at 14:15; Stop 05/01/20 at 15:14; Status DC Ondansetron HCl (Zofran) 4 mg PRN Q8HRS PRN IV NAUSEA/VOMITING; Start 05/01/20 at 14:45; Stop 05/02/20 at 14:44; Status DC Fentanyl Citrate (Fentanyl 2ml Vial) 50 mcg PRN Q1HR PRN IV PAIN Last administered on 05/01/20at 16:12; Start 05/01/20 at 14:45; Stop 05/02/20 at 14:44; Status DC Acetaminophen (Tylenol) 650 mg PRN Q4HRS PRN PO MILD PAIN 1-3 Last administered on 05/04/20 20:45; Start 05/01/20 at 20:45 Albuterol Sulfate (Ventolin Neb Soln) 2.5 mg PRN Q6HRS PRN INH SHORTNESS OF BREATH; Start 05/01/20 at 20:45 Allopurinol (Zyloprim) 100 mg DAILY PO Last administered on 05/11/20 08:13; Start 05/02/20 at 09:00 Amitriptyline HCl (Elavil) 25 mg QHS PO Last administered on 05/10/20 21:23; Start 05/01/20 at 21:00 Aspirin (Ecotrin) 81 mg DAILY PO Last administered on 05/11/20 08:13; Start 05/02/20 at 09:00 Atorvastatin Calcium (Lipitor) 20 mg HS PO Last administered on 05/10/20 21:23; Start 05/01/20 at 21:00 Vitamin D (Vitamin D3) 1,000 unit DAILY PO Last administered on 05/11/20 08:13; Start 05/02/20 at 09:00 Ferrous Sulfate (Feosol) 325 mg DAILY PO Last administered on 05/11/20 08:14; Start 05/02/20 at 09:00 Gabapentin (Neurontin) 100 mg TID PO Last administered on 05/11/20 08:13; Start 05/01/20 at 21:00 Acetaminophen/ Hydrocodone Bitart (Lortab 5/325) 1 tab PRN Q4HRS PRN PO MODERATE PAIN 4-6 Last administered on 05/10/20 14:14; Start 05/01/20 at 20:45 Albuterol/ Ipratropium (Duoneb) 3 ml Q4HRS W/A NEB ; Start 05/01/20 at 22:00; Stop 05/02/20 at 10:59; Status DC Levothyroxine Sodium (Synthroid) 50 mcg DAILY06 PO Last administered on 05/11/20 05:54; Start 05/02/20 at 06:00 Metoprolol Succinate (Toprol Xl) 25 mg DAILY PO Last administered on 05/05/20 08:01; Start 05/02/20 at 09:00; Stop 05/05/20 at 09:58; Status DC Montelukast Sodium (Singulair) 10 mg HS PO Last administered on 05/10/20 21:23; Start 05/01/20 at 21:00 Roflumilast (Daliresp) 500 mcg DAILY PO Last administered on 05/11/20 08:13; Start 05/02/20 at 09:00 Ropinirole HCl (Requip) 3 mg QHS PO Last administered on 05/10/20 21:23; Start 05/01/20 at 21:00 Sacubitril/ Valsartan (Entresto 49 Mg-51 Mg) 1 tab BID PO Last administered on 05/11/20 08:14; Start 05/01/20 at 21:00 Torsemide (Demadex) 20 mg DAILY PO Last administered on 05/03/20 08:43; Start 05/02/20 at 09:00; Stop 05/04/20 at 09:55; Status DC Budesonide (Pulmicort) 0.5 mg RTBID NEB Last administered on 05/11/20 07:25; Start 05/02/20 at 08:00 Cetirizine HCl (ZyrTEC) 10 mg DAILY PO Last administered on 05/11/20 08:13; Start 05/02/20 at 09:00 Pantoprazole Sodium (Protonix) 40 mg DAILYAC PO Last administered on 05/11/20 08:13; Start 05/02/20 at 07:30 Potassium Chloride (Klor-Con) 20 meq DAILYWBKFT PO Last administered on 05/11/20at 08:14; Start 05/02/20 at 08:00 Methylprednisolone Sodium Succinate (SOLU-Medrol 40MG VIAL) 60 mg Q6HRS IV Last administered on 05/09/20 07:24; Start 05/02/20 at 05:00; Stop 05/09/20 at 11:38; Status DC Azithromycin 500 mg/Sodium Chloride 250 ml @ 250 mls/hr Q24H IV Last administered on 05/03/20at 11:59; Start 05/02/20 at 10:00; Stop 05/03/20 at 12:58; Status DC Albuterol/ Ipratropium (Combivent Respimat 20-100 Mcg) 1 puff Q4HRS W/A INH Last administered on 05/02/20at 17:39; Start 05/02/20 at 14:00; Stop 05/02/20 at 18:39; Status DC Albuterol/ Ipratropium (Duoneb) 3 ml Q4HRS NEB Last administered on 05/05/20at 00:13; Start 05/02/20 at 20:00; Stop 05/05/20 at 05:24; Status DC Fluticasone Propionate (Flonase) 2 spray DAILY NS Last administered on 05/11/20at 08:15; Start 05/03/20 at 12:00 Lactobacillus Rhamnosus (Culturelle) 1 cap BID PO ; Start 05/03/20 at 21:00; Status Cancel Azithromycin (Zithromax) 500 mg DAILY PO Last administered on 05/11/20 08:14; Start 05/04/20 at 09:00 Benzonatate (Tessalon Perle) 100 mg IOP688 PO Last administered on 05/11/20at 08:13; Start 05/04/20 at 10:00 Guaifenesin (Robitussin Dm) 10 ml PRN Q6HRS PRN PO COUGH Last administered on 05/05/20at 12:02; Start 05/04/20 at 10:00 Torsemide (Demadex) 40 mg DAILY PO Last administered on 05/04/20at 10:21; Start 05/05/20 at 09:00; Stop 05/04/20 at 12:45; Status DC Torsemide (Demadex) 20 mg 1X ONCE PO ; Start 05/04/20 at 10:15; Stop 05/04/20 at 10:16; Status DC Torsemide (Demadex) 40 mg DAILY PO Last administered on 05/11/20at 08:14; Start 05/05/20 at 09:00 Diphenhydramine HCl (Benadryl) 25 mg PRN Q6HRS PRN IVP ITCHING Last administered on 05/04/20at 21:31; Start 05/04/20 at 21:30 Albuterol/ Ipratropium (Duoneb) 3 ml RTQID NEB Last administered on 05/05/20at 06:59; Start 05/05/20 at 08:00; Stop 05/05/20 at 10:00; Status DC Albuterol/ Ipratropium (Duoneb) 3 ml Q4HRS NEB Last administered on 05/11/20 07:25; Start 05/05/20 at 10:00 Lactobacillus Rhamnosus (Culturelle) 1 cap BID PO Last administered on 05/11/20 08:14; Start 05/05/20 at 21:00 Phenol (Chloraseptic) 1 spray PRN Q2HR PRN PO SORE THROAT Last administered on 05/07/20at 08:38; Start 05/05/20 at 12:00 Insulin Human Lispro (HumaLOG) 0-7 UNITS TIDWMEALS SQ Last administered on 05/10/20 21:33; Start 05/05/20 at 12:30 Dextrose (Dextrose 50%-Water Syringe) 12.5 gm PRN Q15MIN PRN IV SEE COMMENTS; Start 05/05/20 at 12:00 Magnesium Sulfate 50 ml @ 25 mls/hr 1X ONCE IV Last administered on 05/07/20at 11:30; Start 05/07/20 at 11:00; Stop 05/07/20 at 12:59; Status DC Insulin Human Lispro (HumaLOG) 7 units 1X ONCE SQ Last administered on 05/07/20 22:38; Start 05/07/20 at 22:30; Stop 05/07/20 at 22:33; Status DC Magnesium Sulfate 50 ml @ 25 mls/hr 1X ONCE IV Last administered on 05/08/20 11:32; Start 05/08/20 at 11:30; Stop 05/08/20 at 13:29; Status DC Furosemide (Lasix) 40 mg 1X ONCE IVP Last administered on 05/08/20 11:32; Start 05/08/20 at 11:45; Stop 05/08/20 at 11:46; Status DC Insulin Human Lispro (HumaLOG) 4 units 1X ONCE SQ Last administered on 05/08/20at 21:41; Start 05/08/20 at 21:30; Stop 05/08/20 at 21:31; Status DC Methylprednisolone Sodium Succinate (SOLU-Medrol 40MG VIAL) 80 mg Q6HRS IV Last administered on 05/10/20 05:59; Start 05/09/20 at 12:00; Stop 05/10/20 at 07:32; Status DC Methylprednisolone Sodium Succinate (SOLU-Medrol 125MG VIAL) 80 mg Q8HRS IV Last administered on 05/11/20at 05:54; Start 05/10/20 at 14:00 Insulin Human Lispro (HumaLOG) 3 units 1X ONCE SQ Last administered on 05/11/20at 08:25; Start 05/11/20 at 08:00; Stop 05/11/20 at 08:01; Status DC Active Scripts Active Duoneb 0.5-3(2.5) Mg/3 Ml (Albuterol/Ipratropium) 3 Ml Ampul.neb 3 Ml NEB Q4HRS 14 Days Hydrocodone-Apap 5-325 (Hydrocodone Bit/Acetaminophen) 1 Tab Tablet 1 Tab PO PRN Q4HRS PRN Reported Allopurinol 100 Mg Tablet 1 Tab PO DAILY Trelegy Ellipta 100-62.5-25 (Fluticasone/Umeclidin/Vilanter) 1 Each Blst.w.dev 1 Each IH DAILY Prilosec Otc (Omeprazole Magnesium) 20 Mg Tablet.dr 40 Mg PO DAILY Entresto 49 mg-51 mg Tablet (Sacubitril/Valsartan) 1 Each Tablet 49-51 Mg PO BID K-Tab ER (Potassium Chloride) 20 Meq Tablet.er 20 Meq PO DAILY Montelukast Sodium Tablet (Montelukast Sodium) 10 Mg Tablet 10 Mg PO HS Levocetirizine Dihydrochloride 5 Mg Tablet 5 Mg PO DAILY Amitriptyline Hcl 25 Mg Tablet 25 Mg PO QHS Tylenol (Acetaminophen) 325 Mg Tablet 650 Mg PO PRN Q4HRS PRN Aspir 81 (Aspirin) 81 Mg Tablet.dr 1 Tab PO DAILY Metoprolol Succinate ( Xl ) (Metoprolol Succinate) 25 Mg Tab.er.24h 25 Mg PO DAILY Vitamin D3 (Cholecalciferol (Vitamin D3)) 1,000 Unit Tablet 1 Tab PO DAILY Torsemide 20 Mg Tablet 1 Tab PO DAILY Gabapentin (Gabapentin) 100 Mg Capsule 100 Mg PO TID Ferrous Sulfate 325 Mg Tablet 1 Tab PO DAILY Daliresp (Roflumilast) 500 Mcg Tablet 1 Tab PO DAILY Atorvastatin Calcium 20 Mg Tablet 20 Mg PO HS Requip (Ropinirole Hcl) 1 Mg Tablet 3 Tab PO QHS Proair Hfa Inhaler (Albuterol Sulfate) 8.5 Gm Hfa.aer.ad 1 Puff INH PRN Q6HRS PRN Levothyroxine Sodium 50 Mcg Tablet 1 Tab PO DAILY Vitals/I & O Vital Sign - Last 24 Hours 05/10/20 05/10/20 05/10/20 05/10/20 10:54 12:20 14:14 15:14 Temp 98.6 98.6 Pulse 102 Resp 18 15 17 B/P (MAP) 105/48 (67) Pulse Ox 96 97 O2 Delivery Room Air Nasal Cannula Nasal Cannula Nasal Cannula O2 Flow Rate 2.0 2.0 2.0 05/10/20 05/10/20 05/10/20 05/10/20 15:41 15:43 19:28 20:00 Temp 98.3 98.3 98.3 98.3 Pulse 88 96 Resp 18 21 B/P (MAP) 117/48 (71) 112/49 (70) Pulse Ox 98 97 96 O2 Delivery Nasal Cannula Room Air Nasal Cannula Nasal Cannula O2 Flow Rate 2.0 2.0 2.0 05/10/20 05/10/20 05/10/20 05/10/20 20:04 20:05 21:23 23:50 Temp 98.4 98.4 Pulse 96 88 Resp 20 B/P (MAP) 112/49 110/38 (62) Pulse Ox 96 96 97 O2 Delivery Nasal Cannula Nasal Cannula Nasal Cannula O2 Flow Rate 2.0 2.0 2.0 05/11/20 05/11/20 05/11/20 05/11/20 00:56 03:30 07:29 07:59 Temp 98.1 98.2 98.1 98.2 Pulse 87 92 Resp 22 20 B/P (MAP) 122/53 (76) 112/52 (72) Pulse Ox 96 97 96 93 O2 Delivery Nasal Cannula Nasal Cannula Nasal Cannula Nasal Cannula O2 Flow Rate 2.0 2.0 2.0 2.0 05/11/20 05/11/20 08:00 08:14 Pulse 92 B/P (MAP) 112/52 O2 Delivery Nasal Cannula O2 Flow Rate 2.0 Intake and Output 05/10/20 05/10/20 05/11/20 15:00 23:00 07:00 Intake Total 600 ml 300 ml 350 ml Balance 600 ml 300 ml 350 ml Justicifation of Admission Dx: Justifications for Admission: Justification of Admission Dx: Yes CAMILA MORELOS MD May 11, 2020 10:28
[2020-05-11 11:13] VITALS: BP 109/48
[2020-05-11] MEDS: INSULIN LISPRO 300 UNITS/3 ML VIAL. SQ SCH ×2 (12:03→18:04)
[2020-05-11 15:57] VITALS: BP 105/52
[2020-05-11 19:41] VITALS: BP 116/37
[2020-05-11] MEDS: MONTELUKAST SODIUM 10 MG TABLET. PO SCH (20:44)
[2020-05-11] MEDS: ATORVASTATIN CALCIUM 20 MG TABLET PO SCH (20:44)
[2020-05-11] MEDS: rOPINIRole 1 MG TABLET. PO SCH (20:44)
[2020-05-11] MEDS: AMITRIPTYLINE HCL 25 MG TABLET. PO SCH (20:44)
[2020-05-11 22:36] VITALS: BP 97/44
[2020-05-12] MEDS: IPRATRPIUM/ALBUTEROL 0.5/2.5MG 3 ML NEBU. NEB SCH ×6 (01:18→19:37)
[2020-05-12 02:51] VITALS: BP 108/46
[2020-05-12] MEDS: methylPREDNISolone SOD SUCC PF 125 MG/2 ML VIAL. IV SCH ×3 (05:38→22:11)
[2020-05-12] MEDS: LEVOTHYROXINE 50 MCG TABLET PO SCH (05:38)
[2020-05-12 06:04] LABS: BASO % 0 % (0-3); EOS % 0 % (0-3); HEMATOCRIT 32.5 % (36.0-47.0); HEMOGLOBIN 10.8 g/dL (12.0-15.5); LYMPH # 0.6 x10^3/uL (1.0-4.8); LYMPH % 4 % (24-48); MEAN CORPUSCULAR HEMOGLOBIN 31 pg (25-35); MEAN CORPUSCULAR HGB CONC 33 g/dL (31-37); MEAN CORPUSCULAR VOLUME 93 fL (79-100); MONO # 0.5 x10^3/uL (0.0-1.1); MONO % 3 % (0-9); NEUT # 16.2 x10^3/uL (1.8-7.7); NEUT % 94 % (31-73); PLATELET COUNT 137 x10^3/uL (140-400); RED BLOOD COUNT 3.51 x10^6/uL (3.50-5.40); WHITE BLOOD COUNT 17.3 x10^3/uL (4.0-11.0)
[2020-05-12 06:24] LABS: ALBUMIN 2.4 g/dL (3.4-5.0); ALBUMIN/GLOBULIN RATIO 0.9 (1.0-1.7); CALCIUM 8.1 mg/dL (8.5-10.1); GFR 55.5; POTASSIUM 4.7 mmol/L (3.5-5.1); TOTAL BILIRUBIN 0.2 mg/dL (0.2-1.0); TOTAL PROTEIN 5.2 g/dL (6.4-8.2)
[2020-05-12 07:00] VITALS: BP 118/51
[2020-05-12] MEDS: BUDESONIDE 0.5 MG/2 ML NEBU. NEB SCH ×2 (07:25→19:37)
[2020-05-12] MEDS: LACTOBACILLUS RHAMNOSUS GG 1 CAPSULE. PO SCH ×2 (08:55→21:18)
[2020-05-12] MEDS: CHOLECALCIFEROL (VITAMIN D3) 1,000 UNIT TABLET PO SCH (08:55)
[2020-05-12] MEDS: ASPIRIN ENTERIC COATED 81 MG TABLET.DR. PO SCH (08:55)
[2020-05-12] MEDS: TORSEMIDE 20 MG TABLET. PO SCH (08:55)
[2020-05-12] MEDS: ROFLUMILAST 500 MCG TABLET. PO SCH (08:55)
[2020-05-12] MEDS: ALLOPURINOL 100 MG TABLET. PO SCH (08:56)
[2020-05-12] MEDS: BENZONATATE 100 MG CAPSULE. PO SCH ×3 (08:56→21:18)
[2020-05-12] MEDS: FERROUS SULFATE 325 MG TABLET. PO SCH (08:56)
[2020-05-12] MEDS: PANTOPRAZOLE 40 MG TABLET.DR. PO SCH (08:56)
[2020-05-12] MEDS: SACUBITRIL/VALSARTAN 49/51MG TABLET. PO SCH ×2 (08:56→21:00)
[2020-05-12] MEDS: CETIRIZINE HCL 10 MG TABLET. PO SCH (08:56)
[2020-05-12] MEDS: POTASSIUM CHLORIDE 20 MEQ TABLET.ER. PO SCH (08:56)
[2020-05-12] MEDS: GABAPENTIN 100 MG CAPSULE. PO SCH ×3 (08:56→21:18)
[2020-05-12] MEDS: AZITHROMYCIN 250 MG TABLET. PO SCH (08:56)
[2020-05-12] MEDS: FLUTICASONE 50MCG/NASAL SPRAY 16GM BOTTLE. NS SCH (09:00)
[2020-05-12] MEDS: INSULIN LISPRO 300 UNITS/3 ML VIAL. SQ SCH ×4 (09:04→21:20)
--- NOTE | 2020-05-12 09:56 | NUR ---
SW following. Discussed with RN, pt from home, chest xray today. Possible discharge home today if IV steroids can be stopped. Plan is for [facility]. HEIKE will continue to follow.
--- NOTE | 2020-05-12 10:09 | RAD ---
EXAM: CHEST PA LATERAL INDICATION: Reason: sob / Spl. Instructions: / History: . TECHNIQUE: PA and lateral views COMPARISON: 05/07/2020 FINDINGS: Heart is upper normal in size. Left chest multichamber AICD is redemonstrated. The great vessels appear unremarkable. There is no hilar or mediastinal mass. Lungs show interval increase in pulmonary vascular fullness and slightly improved lung volumes. There is no pleural effusion or pneumothorax. There are no significant osseous abnormalities. IMPRESSION: Developing pulmonary vascular congestion. No focal infiltrates. Electronically signed by: Heather Barron MD (05/12/2020 10:06 AM) [id number]
[2020-05-12 11:00] VITALS: BP 86/29
--- NOTE | 2020-05-12 12:11 | PDOC ---
PULMONARY PROGRESS NOTES DATE: 05/12/20 TIME: 12:09 Subjective did better over weekend more wheezes today. on home 02 2 lpm Vitals Vital Signs Date Time Temp Pulse Resp B/P (MAP) Pulse Ox O2 Delivery O2 Flow Rate FiO2 05/12/20 11:00 98.0 100 16 86/29 (48) 97 Nasal Cannula 2.0 98.0 ROS: No Nausea, No Chest Pain General: Alert, Oriented X4, No acute distress HEENT: Other (nc at perrl ) Lungs: Wheezing Cardiovascular: S1, S2 Abdomen: Soft, Non-tender Neuro Exam: Alert Extremities: No Edema Skin: Warm Labs Laboratory Tests Test 05/10/20 12:15 05/10/20 16:46 05/10/20 20:43 05/11/20 07:41 O2 Saturation 97 % (92-99) Arterial Blood pH 7.52 (7.35-7.45) Arterial Blood pCO2 at Patient Temp 39 mmHg (35-46) Arterial Blood pO2 at Patient Temp 96 mmHg (65-108) Arterial Blood HCO3 31 mmol/L (21-28) Arterial Blood Base Excess 8 mmol/L (-3-3) Oxyhemoglobin 96.9 % Methemoglobin 0.2 % (0.0-1.9) Carbon Monoxide, Quantitative 0.3 % (0.0-1.9) FiO2 28 Glucose (Fingerstick) 231 mg/dL (70-99) 299 mg/dL (70-99) 170 mg/dL (70-99) Test 05/11/20 11:47 05/11/20 17:29 05/11/20 20:54 05/12/20 05:50 Glucose (Fingerstick) 202 mg/dL (70-99) 226 mg/dL (70-99) 301 mg/dL (70-99) White Blood Count 17.3 x10^3/uL (4.0-11.0) Red Blood Count 3.51 x10^6/uL (3.50-5.40) Hemoglobin 10.8 g/dL (12.0-15.5) Hematocrit 32.5 % (36.0-47.0) Mean Corpuscular Volume 93 fL (79-100) Mean Corpuscular Hemoglobin 31 pg (25-35) Mean Corpuscular Hemoglobin Concent 33 g/dL (31-37) Red Cell Distribution Width 15.0 % (11.5-14.5) Platelet Count 137 x10^3/uL (140-400) Neutrophils (%) (Auto) 94 % (31-73) Lymphocytes (%) (Auto) 4 % (24-48) Monocytes (%) (Auto) 3 % (0-9) Eosinophils (%) (Auto) 0 % (0-3) Basophils (%) (Auto) 0 % (0-3) Neutrophils # (Auto) 16.2 x10^3/uL (1.8-7.7) Lymphocytes # (Auto) 0.6 x10^3/uL (1.0-4.8) Monocytes # (Auto) 0.5 x10^3/uL (0.0-1.1) Eosinophils # (Auto) 0.0 x10^3/uL (0.0-0.7) Basophils # (Auto) 0.0 x10^3/uL (0.0-0.2) Sodium Level 138 mmol/L (136-145) Potassium Level 4.7 mmol/L (3.5-5.1) Chloride Level 99 mmol/L (98-107) Carbon Dioxide Level 37 mmol/L (21-32) Anion Gap 2 (6-14) Blood Urea Nitrogen 40 mg/dL (7-20) Creatinine 1.0 mg/dL (0.6-1.0) Estimated GFR (Cockcroft-Gault) 55.5 BUN/Creatinine Ratio 40 (6-20) Glucose Level 189 mg/dL (70-99) Calcium Level 8.1 mg/dL (8.5-10.1) Total Bilirubin 0.2 mg/dL (0.2-1.0) Aspartate Amino Transf (AST/SGOT) 42 U/L (15-37) Alanine Aminotransferase (ALT/SGPT) 97 U/L (14-59) Alkaline Phosphatase 45 U/L (46-116) Total Protein 5.2 g/dL (6.4-8.2) Albumin 2.4 g/dL (3.4-5.0) Albumin/Globulin Ratio 0.9 (1.0-1.7) Test 05/12/20 07:35 05/12/20 11:40 Glucose (Fingerstick) 179 mg/dL (70-99) 211 mg/dL (70-99) Laboratory Tests Test 05/11/20 17:29 05/11/20 20:54 05/12/20 05:50 05/12/20 07:35 Glucose (Fingerstick) 226 mg/dL (70-99) 301 mg/dL (70-99) 179 mg/dL (70-99) White Blood Count 17.3 x10^3/uL (4.0-11.0) Red Blood Count 3.51 x10^6/uL (3.50-5.40) Hemoglobin 10.8 g/dL (12.0-15.5) Hematocrit 32.5 % (36.0-47.0) Mean Corpuscular Volume 93 fL (79-100) Mean Corpuscular Hemoglobin 31 pg (25-35) Mean Corpuscular Hemoglobin Concent 33 g/dL (31-37) Red Cell Distribution Width 15.0 % (11.5-14.5) Platelet Count 137 x10^3/uL (140-400) Neutrophils (%) (Auto) 94 % (31-73) Lymphocytes (%) (Auto) 4 % (24-48) Monocytes (%) (Auto) 3 % (0-9) Eosinophils (%) (Auto) 0 % (0-3) Basophils (%) (Auto) 0 % (0-3) Neutrophils # (Auto) 16.2 x10^3/uL (1.8-7.7) Lymphocytes # (Auto) 0.6 x10^3/uL (1.0-4.8) Monocytes # (Auto) 0.5 x10^3/uL (0.0-1.1) Eosinophils # (Auto) 0.0 x10^3/uL (0.0-0.7) Basophils # (Auto) 0.0 x10^3/uL (0.0-0.2) Sodium Level 138 mmol/L (136-145) Potassium Level 4.7 mmol/L (3.5-5.1) Chloride Level 99 mmol/L (98-107) Carbon Dioxide Level 37 mmol/L (21-32) Anion Gap 2 (6-14) Blood Urea Nitrogen 40 mg/dL (7-20) Creatinine 1.0 mg/dL (0.6-1.0) Estimated GFR (Cockcroft-Gault) 55.5 BUN/Creatinine Ratio 40 (6-20) Glucose Level 189 mg/dL (70-99) Calcium Level 8.1 mg/dL (8.5-10.1) Total Bilirubin 0.2 mg/dL (0.2-1.0) Aspartate Amino Transf (AST/SGOT) 42 U/L (15-37) Alanine Aminotransferase (ALT/SGPT) 97 U/L (14-59) Alkaline Phosphatase 45 U/L (46-116) Total Protein 5.2 g/dL (6.4-8.2) Albumin 2.4 g/dL (3.4-5.0) Albumin/Globulin Ratio 0.9 (1.0-1.7) Test 05/12/20 11:40 Glucose (Fingerstick) 211 mg/dL (70-99) Medications Active Scripts Medications Dose Route/Sig Max Daily Dose Days Date Category Allopurinol 100 Mg Tablet 1 Tab PO DAILY 05/01/20 Reported Trelegy Ellipta 100-62.5-25 (Fluticasone/Umeclidin/Vilanter) 1 Each Blst.w.dev 1 Each IH DAILY 03/17/20 Reported Prilosec Otc (Omeprazole Magnesium) 20 Mg Tablet.dr 40 Mg PO DAILY 03/17/20 Reported Duoneb 0.5-3(2.5) Mg/3 Ml (Albuterol/Ipratropium) 3 Ml Ampul.neb 3 Ml NEB Q4HRS 14 10/22/19 Rx Hydrocodone-Apap 5-325 (Hydrocodone Bit/Acetaminophen) 1 Tab Tablet 1 Tab PO PRN Q4HRS PRN 10/20/19 Rx Entresto 49 mg-51 mg Tablet (Sacubitril/Valsartan) 1 Each Tablet 49-51 Mg PO BID 07/30/19 Reported K-Tab ER (Potassium Chloride) 20 Meq Tablet.er 20 Meq PO DAILY 07/30/19 Reported Montelukast Sodium Tablet (Montelukast Sodium) 10 Mg Tablet 10 Mg PO HS 07/29/19 Reported Levocetirizine Dihydrochloride 5 Mg Tablet 5 Mg PO DAILY 07/29/19 Reported Amitriptyline Hcl 25 Mg Tablet 25 Mg PO QHS 07/29/19 Reported Tylenol (Acetaminophen) 325 Mg Tablet 650 Mg PO PRN Q4HRS PRN 07/29/19 Reported Aspir 81 (Aspirin) 81 Mg Tablet.dr 1 Tab PO DAILY 01/03/18 Reported Metoprolol Succinate ( Xl ) (Metoprolol Succinate) 25 Mg Tab.er.24h 25 Mg PO DAILY 01/03/18 Reported Vitamin D3 (Cholecalciferol (Vitamin D3)) 1,000 Unit Tablet 1 Tab PO DAILY 01/02/18 Reported Torsemide 20 Mg Tablet 1 Tab PO DAILY 01/02/18 Reported Gabapentin (Gabapentin) 100 Mg Capsule 100 Mg PO TID 01/02/18 Reported Ferrous Sulfate 325 Mg Tablet 1 Tab PO DAILY 09/23/17 Reported Daliresp (Roflumilast) 500 Mcg Tablet 1 Tab PO DAILY 09/23/17 Reported Atorvastatin Calcium 20 Mg Tablet 20 Mg PO HS 09/23/17 Reported Requip (Ropinirole Hcl) 1 Mg Tablet 3 Tab PO QHS 09/23/17 Reported Proair Hfa Inhaler (Albuterol Sulfate) 8.5 Gm Hfa.aer.ad 1 Puff INH PRN Q6HRS PRN 09/23/17 Reported Levothyroxine Sodium 50 Mcg Tablet 1 Tab PO DAILY 09/23/[address] No pulmonary mass or consolidation. Impression . IMPRESSION: 1. Dyspnea secondary to acute exacerbation of chronic obstructive pulmonary disease with persistent wheezing.no CHF. Pt had left heart cath 03/22 and had LVEDP of 27 2. No signs of pneumonia. 3. Chronic compensated hypercapnia. 4. allergic rhinitis Plan . RECOMMENDATIONS: 1. wheezing, mostly upper airway wheezing . holding metoprolol. s/p Mg So4 X 2days, ct reviewed, No pulmonary mass or consolidation. no CHF. 2. cont solumedrol 80 q 8 hrs 3. continue plumicort 4. off abx 5. COVID test is negative, 6. BD q 4hrs cont ics, cont flonase. 7. Not ready for dc Discussed with RN, and Patient IMELDA EASTMAN MD May 12, 2020 12:11
--- NOTE | 2020-05-12 12:51 | PDOC ---
PROGRESS NOTES Date of Service: DATE: 05/12/20 TIME: 12:50 Chief Complaint Chief Complaint Respiratory failure, suspect chronic obstructive pulmonary disease exacerbation Probable concomitant pneumonia, GRAM NEG COVID-19 results neg COPD CAD CHF Diabetes-Type II High Cholesterol Hypertension Hypothyroid cont IV steroids History of Present Illness History of Present Illness 05/12, cough, wheeze, dyspnea, today, not much worse or hypoxic 05/11/20. cough PERSISTENT she reports that her torsemide dose had been increased by Dr. Driscoll Continue IV Solu-Medrol 60 q 6hrs. has MILD-MOD wheezing hold metoprolol. Empiric antibiotics D/W RN REPEAT ABG reviewed D/W 05/03/20. cont current, still weak, wheezing, plan OOB 05/02/20 Patient seen and examined - covid was negative Patient is in moderate distress with audible wheezing Discussed with RN Chart reviewed Vitals Vitals Vital Signs Date Time Temp Pulse Resp B/P (MAP) Pulse Ox O2 Delivery O2 Flow Rate FiO2 05/12/20 11:00 98.0 100 16 86/29 (48) 97 Nasal Cannula 2.0 98.0 Physical Exam General: Alert, Oriented X3, Cooperative, No acute distress Heart: Regular rate, Normal S1 Lungs: Wheezing Abdomen: Soft, No tenderness Extremities: No clubbing, No cyanosis, No edema Skin: No rashes, No significant lesion Labs LABS Laboratory Tests Test 05/11/20 17:29 05/11/20 20:54 05/12/20 05:50 05/12/20 07:35 Glucose (Fingerstick) 226 mg/dL (70-99) 301 mg/dL (70-99) 179 mg/dL (70-99) White Blood Count 17.3 x10^3/uL (4.0-11.0) Red Blood Count 3.51 x10^6/uL (3.50-5.40) Hemoglobin 10.8 g/dL (12.0-15.5) Hematocrit 32.5 % (36.0-47.0) Mean Corpuscular Volume 93 fL (79-100) Mean Corpuscular Hemoglobin 31 pg (25-35) Mean Corpuscular Hemoglobin Concent 33 g/dL (31-37) Red Cell Distribution Width 15.0 % (11.5-14.5) Platelet Count 137 x10^3/uL (140-400) Neutrophils (%) (Auto) 94 % (31-73) Lymphocytes (%) (Auto) 4 % (24-48) Monocytes (%) (Auto) 3 % (0-9) Eosinophils (%) (Auto) 0 % (0-3) Basophils (%) (Auto) 0 % (0-3) Neutrophils # (Auto) 16.2 x10^3/uL (1.8-7.7) Lymphocytes # (Auto) 0.6 x10^3/uL (1.0-4.8) Monocytes # (Auto) 0.5 x10^3/uL (0.0-1.1) Eosinophils # (Auto) 0.0 x10^3/uL (0.0-0.7) Basophils # (Auto) 0.0 x10^3/uL (0.0-0.2) Sodium Level 138 mmol/L (136-145) Potassium Level 4.7 mmol/L (3.5-5.1) Chloride Level 99 mmol/L (98-107) Carbon Dioxide Level 37 mmol/L (21-32) Anion Gap 2 (6-14) Blood Urea Nitrogen 40 mg/dL (7-20) Creatinine 1.0 mg/dL (0.6-1.0) Estimated GFR (Cockcroft-Gault) 55.5 BUN/Creatinine Ratio 40 (6-20) Glucose Level 189 mg/dL (70-99) Calcium Level 8.1 mg/dL (8.5-10.1) Total Bilirubin 0.2 mg/dL (0.2-1.0) Aspartate Amino Transf (AST/SGOT) 42 U/L (15-37) Alanine Aminotransferase (ALT/SGPT) 97 U/L (14-59) Alkaline Phosphatase 45 U/L (46-116) Total Protein 5.2 g/dL (6.4-8.2) Albumin 2.4 g/dL (3.4-5.0) Albumin/Globulin Ratio 0.9 (1.0-1.7) Test 05/12/20 11:40 Glucose (Fingerstick) 211 mg/dL (70-99) Assessment and Plan Assessmemt and Plan Problems Medical Problems: (1) COPD exacerbation Status: Acute Comment Review of Relevant I have reviewed the following items jon (where applicable) has been applied. Labs Laboratory Tests Test 05/10/20 16:46 05/10/20 20:43 05/11/20 07:41 05/11/20 11:47 Glucose (Fingerstick) 231 mg/dL (70-99) 299 mg/dL (70-99) 170 mg/dL (70-99) 202 mg/dL (70-99) Test 05/11/20 17:29 05/11/20 20:54 05/12/20 05:50 05/12/20 07:35 Glucose (Fingerstick) 226 mg/dL (70-99) 301 mg/dL (70-99) 179 mg/dL (70-99) White Blood Count 17.3 x10^3/uL (4.0-11.0) Red Blood Count 3.51 x10^6/uL (3.50-5.40) Hemoglobin 10.8 g/dL (12.0-15.5) Hematocrit 32.5 % (36.0-47.0) Mean Corpuscular Volume 93 fL (79-100) Mean Corpuscular Hemoglobin 31 pg (25-35) Mean Corpuscular Hemoglobin Concent 33 g/dL (31-37) Red Cell Distribution Width 15.0 % (11.5-14.5) Platelet Count 137 x10^3/uL (140-400) Neutrophils (%) (Auto) 94 % (31-73) Lymphocytes (%) (Auto) 4 % (24-48) Monocytes (%) (Auto) 3 % (0-9) Eosinophils (%) (Auto) 0 % (0-3) Basophils (%) (Auto) 0 % (0-3) Neutrophils # (Auto) 16.2 x10^3/uL (1.8-7.7) Lymphocytes # (Auto) 0.6 x10^3/uL (1.0-4.8) Monocytes # (Auto) 0.5 x10^3/uL (0.0-1.1) Eosinophils # (Auto) 0.0 x10^3/uL (0.0-0.7) Basophils # (Auto) 0.0 x10^3/uL (0.0-0.2) Sodium Level 138 mmol/L (136-145) Potassium Level 4.7 mmol/L (3.5-5.1) Chloride Level 99 mmol/L (98-107) Carbon Dioxide Level 37 mmol/L (21-32) Anion Gap 2 (6-14) Blood Urea Nitrogen 40 mg/dL (7-20) Creatinine 1.0 mg/dL (0.6-1.0) Estimated GFR (Cockcroft-Gault) 55.5 BUN/Creatinine Ratio 40 (6-20) Glucose Level 189 mg/dL (70-99) Calcium Level 8.1 mg/dL (8.5-10.1) Total Bilirubin 0.2 mg/dL (0.2-1.0) Aspartate Amino Transf (AST/SGOT) 42 U/L (15-37) Alanine Aminotransferase (ALT/SGPT) 97 U/L (14-59) Alkaline Phosphatase 45 U/L (46-116) Total Protein 5.2 g/dL (6.4-8.2) Albumin 2.4 g/dL (3.4-5.0) Albumin/Globulin Ratio 0.9 (1.0-1.7) Test 05/12/20 11:40 Glucose (Fingerstick) 211 mg/dL (70-99) Laboratory Tests Test 05/11/20 17:29 05/11/20 20:54 05/12/20 05:50 05/12/20 07:35 Glucose (Fingerstick) 226 mg/dL (70-99) 301 mg/dL (70-99) 179 mg/dL (70-99) White Blood Count 17.3 x10^3/uL (4.0-11.0) Red Blood Count 3.51 x10^6/uL (3.50-5.40) Hemoglobin 10.8 g/dL (12.0-15.5) Hematocrit 32.5 % (36.0-47.0) Mean Corpuscular Volume 93 fL (79-100) Mean Corpuscular Hemoglobin 31 pg (25-35) Mean Corpuscular Hemoglobin Concent 33 g/dL (31-37) Red Cell Distribution Width 15.0 % (11.5-14.5) Platelet Count 137 x10^3/uL (140-400) Neutrophils (%) (Auto) 94 % (31-73) Lymphocytes (%) (Auto) 4 % (24-48) Monocytes (%) (Auto) 3 % (0-9) Eosinophils (%) (Auto) 0 % (0-3) Basophils (%) (Auto) 0 % (0-3) Neutrophils # (Auto) 16.2 x10^3/uL (1.8-7.7) Lymphocytes # (Auto) 0.6 x10^3/uL (1.0-4.8) Monocytes # (Auto) 0.5 x10^3/uL (0.0-1.1) Eosinophils # (Auto) 0.0 x10^3/uL (0.0-0.7) Basophils # (Auto) 0.0 x10^3/uL (0.0-0.2) Sodium Level 138 mmol/L (136-145) Potassium Level 4.7 mmol/L (3.5-5.1) Chloride Level 99 mmol/L (98-107) Carbon Dioxide Level 37 mmol/L (21-32) Anion Gap 2 (6-14) Blood Urea Nitrogen 40 mg/dL (7-20) Creatinine 1.0 mg/dL (0.6-1.0) Estimated GFR (Cockcroft-Gault) 55.5 BUN/Creatinine Ratio 40 (6-20) Glucose Level 189 mg/dL (70-99) Calcium Level 8.1 mg/dL (8.5-10.1) Total Bilirubin 0.2 mg/dL (0.2-1.0) Aspartate Amino Transf (AST/SGOT) 42 U/L (15-37) Alanine Aminotransferase (ALT/SGPT) 97 U/L (14-59) Alkaline Phosphatase 45 U/L (46-116) Total Protein 5.2 g/dL (6.4-8.2) Albumin 2.4 g/dL (3.4-5.0) Albumin/Globulin Ratio 0.9 (1.0-1.7) Test 05/12/20 11:40 Glucose (Fingerstick) 211 mg/dL (70-99) Medications Current Medications Methylprednisolone Sodium Succinate (SOLU-Medrol 125MG VIAL) 125 mg 1X ONCE IV Last administered on 05/01/20at 14:10; Start 05/01/20 at 13:30; Stop 05/01/20 at 13:31; Status DC Albuterol Sulfate (Ventolin Neb Soln) 10 mg 1X ONCE CONT NEB Last administered on 05/01/20at 13:47; Start 05/01/20 at 13:30; Stop 05/01/20 at 13:31; Status DC Fentanyl Citrate (Fentanyl 2ml Vial) 50 mcg 1X ONCE IVP Last administered on 05/01/20at 14:10; Start 05/01/20 at 13:45; Stop 05/01/20 at 13:51; Status DC Sodium Chloride 1,000 ml @ 1,000 mls/hr 1X ONCE IV Last administered on 05/01/20at 14:12; Start 05/01/20 at 14:15; Stop 05/01/20 at 15:14; Status DC Azithromycin 250 ml @ 250 mls/hr 1X ONCE IV Last administered on 05/01/20at 14:26; Start 05/01/20 at 14:15; Stop 05/01/20 at 15:14; Status DC Ondansetron HCl (Zofran) 4 mg PRN Q8HRS PRN IV NAUSEA/VOMITING; Start 05/01/20 at 14:45; Stop 05/02/20 at 14:44; Status DC Fentanyl Citrate (Fentanyl 2ml Vial) 50 mcg PRN Q1HR PRN IV PAIN Last administered on 05/01/20at 16:12; Start 05/01/20 at 14:45; Stop 05/02/20 at 14:44; Status DC Acetaminophen (Tylenol) 650 mg PRN Q4HRS PRN PO MILD PAIN 1-3 Last administered on 05/04/20at 20:45; Start 05/01/20 at 20:45 Albuterol Sulfate (Ventolin Neb Soln) 2.5 mg PRN Q6HRS PRN INH SHORTNESS OF BREATH; Start 05/01/20 at 20:45 Allopurinol (Zyloprim) 100 mg DAILY PO Last administered on 05/12/20 08:56; Start 05/02/20 at 09:00 Amitriptyline HCl (Elavil) 25 mg QHS PO Last administered on 05/11/20at 20:44; Start 05/01/20 at 21:00 Aspirin (Ecotrin) 81 mg DAILY PO Last administered on 05/12/20 08:55; Start 05/02/20 at 09:00 Atorvastatin Calcium (Lipitor) 20 mg HS PO Last administered on 05/11/20 20:44; Start 05/01/20 at 21:00 Vitamin D (Vitamin D3) 1,000 unit DAILY PO Last administered on 05/12/20 08:55; Start 05/02/20 at 09:00 Ferrous Sulfate (Feosol) 325 mg DAILY PO Last administered on 05/12/20 08:56; Start 05/02/20 at 09:00 Gabapentin (Neurontin) 100 mg TID PO Last administered on 05/12/20 08:56; Start 05/01/20 at 21:00 Acetaminophen/ Hydrocodone Bitart (Lortab 5/325) 1 tab PRN Q4HRS PRN PO MODERATE PAIN 4-6 Last administered on 05/10/20 14:14; Start 05/01/20 at 20:45 Albuterol/ Ipratropium (Duoneb) 3 ml Q4HRS W/A NEB ; Start 05/01/20 at 22:00; Stop 05/02/20 at 10:59; Status DC Levothyroxine Sodium (Synthroid) 50 mcg DAILY06 PO Last administered on 05/12/20 05:38; Start 05/02/20 at 06:00 Metoprolol Succinate (Toprol Xl) 25 mg DAILY PO Last administered on 05/05/20 08:01; Start 05/02/20 at 09:00; Stop 05/05/20 at 09:58; Status DC Montelukast Sodium (Singulair) 10 mg HS PO Last administered on 05/11/20 20:44; Start 05/01/20 at 21:00 Roflumilast (Daliresp) 500 mcg DAILY PO Last administered on 05/12/20 08:55; Start 05/02/20 at 09:00 Ropinirole HCl (Requip) 3 mg QHS PO Last administered on 05/11/20 20:44; Start 05/01/20 at 21:00 Sacubitril/ Valsartan (Entresto 49 Mg-51 Mg) 1 tab BID PO Last administered on 05/12/20 08:56; Start 05/01/20 at 21:00 Torsemide (Demadex) 20 mg DAILY PO Last administered on 05/03/20 08:43; Start 05/02/20 at 09:00; Stop 05/04/20 at 09:55; Status DC Budesonide (Pulmicort) 0.5 mg RTBID NEB Last administered on 05/12/20at 07:25; Start 05/02/20 at 08:00 Cetirizine HCl (ZyrTEC) 10 mg DAILY PO Last administered on 05/12/20at 08:56; Start 05/02/20 at 09:00 Pantoprazole Sodium (Protonix) 40 mg DAILYAC PO Last administered on 05/12/20 08:56; Start 05/02/20 at 07:30 Potassium Chloride (Klor-Con) 20 meq [id number] PO Last administered on 05/12/20at 08:56; Start 05/02/20 at 08:00 Methylprednisolone Sodium Succinate (SOLU-Medrol 40MG VIAL) 60 mg Q6HRS IV Last administered on 05/09/20at 07:24; Start 05/02/20 at 05:00; Stop 05/09/20 at 11:38; Status DC Azithromycin 500 mg/Sodium Chloride 250 ml @ 250 mls/hr Q24H IV Last administered on 05/03/20at 11:59; Start 05/02/20 at 10:00; Stop 05/03/20 at 12:58; Status DC Albuterol/ Ipratropium (Combivent Respimat 20-100 Mcg) 1 puff Q4HRS W/A INH Last administered on 05/02/20at 17:39; Start 05/02/20 at 14:00; Stop 05/02/20 at 18:39; Status DC Albuterol/ Ipratropium (Duoneb) 3 ml Q4HRS NEB Last administered on 05/05/20at 00:13; Start 05/02/20 at 20:00; Stop 05/05/20 at 05:24; Status DC Fluticasone Propionate (Flonase) 2 spray DAILY NS Last administered on 05/12/20at 09:00; Start 05/03/20 at 12:00 Lactobacillus Rhamnosus (Culturelle) 1 cap BID PO ; Start 05/03/20 at 21:00; Status Cancel Azithromycin (Zithromax) 500 mg DAILY PO Last administered on 05/12/20at 08:56; Start 05/04/20 at 09:00; Stop 05/12/20 at 12:36; Status DC Benzonatate (Tessalon Perle) 100 mg [id number] PO Last administered on 05/12/20 08:56; Start 05/04/20 at 10:00 Guaifenesin (Robitussin Dm) 10 ml PRN Q6HRS PRN PO COUGH Last administered on 05/05/20 12:02; Start 05/04/20 at 10:00 Torsemide (Demadex) 40 mg DAILY PO Last administered on 05/04/20at 10:21; Start 05/05/20 at 09:00; Stop 05/04/20 at 12:45; Status DC Torsemide (Demadex) 20 mg 1X ONCE PO ; Start 05/04/20 at 10:15; Stop 05/04/20 at 10:16; Status DC Torsemide (Demadex) 40 mg DAILY PO Last administered on 05/12/20at 08:55; Start 05/05/20 at 09:00 Diphenhydramine HCl (Benadryl) 25 mg PRN Q6HRS PRN IVP ITCHING Last administered on 05/04/20 21:31; Start 05/04/20 at 21:30 Albuterol/ Ipratropium (Duoneb) 3 ml RTQID NEB Last administered on 05/05/20 06:59; Start 05/05/20 at 08:00; Stop 05/05/20 at 10:00; Status DC Albuterol/ Ipratropium (Duoneb) 3 ml Q4HRS NEB Last administered on 05/12/20at 10:46; Start 05/05/20 at 10:00 Lactobacillus Rhamnosus (Culturelle) 1 cap BID PO Last administered on 05/12/20 08:55; Start 05/05/20 at 21:00 Phenol (Chloraseptic) 1 spray PRN Q2HR PRN PO SORE THROAT Last administered on 05/07/20 08:38; Start 05/05/20 at 12:00 Insulin Human Lispro (HumaLOG) 0-7 UNITS TIDWMEALS SQ Last administered on 05/12/20at 12:27; Start 05/05/20 at 12:30 Dextrose (Dextrose 50%-Water Syringe) 12.5 gm PRN Q15MIN PRN IV SEE COMMENTS; Start 05/05/20 at 12:00 Magnesium Sulfate 50 ml @ 25 mls/hr 1X ONCE IV Last administered on 05/07/20at 11:30; Start 05/07/20 at 11:00; Stop 05/07/20 at 12:59; Status DC Insulin Human Lispro (HumaLOG) 7 units 1X ONCE SQ Last administered on 05/07/20at 22:38; Start 05/07/20 at 22:30; Stop 05/07/20 at 22:33; Status DC Magnesium Sulfate 50 ml @ 25 mls/hr 1X ONCE IV Last administered on 05/08/20at 11:32; Start 05/08/20 at 11:30; Stop 05/08/20 at 13:29; Status DC Furosemide (Lasix) 40 mg 1X ONCE IVP Last administered on 05/08/20at 11:32; Start 05/08/20 at 11:45; Stop 05/08/20 at 11:46; Status DC Insulin Human Lispro (HumaLOG) 4 units 1X ONCE SQ Last administered on 05/08/20at 21:41; Start 05/08/20 at 21:30; Stop 05/08/20 at 21:31; Status DC Methylprednisolone Sodium Succinate (SOLU-Medrol 40MG VIAL) 80 mg Q6HRS IV Last administered on 05/10/20at 05:59; Start 05/09/20 at 12:00; Stop 05/10/20 at 07:32; Status DC Methylprednisolone Sodium Succinate (SOLU-Medrol 125MG VIAL) 80 mg Q8HRS IV Last administered on 05/12/20at 05:38; Start 05/10/20 at 14:00 Insulin Human Lispro (HumaLOG) 3 units 1X ONCE SQ Last administered on 05/11/20at 08:25; Start 05/11/20 at 08:00; Stop 05/11/20 at 08:01; Status DC Insulin Human Lispro (HumaLOG) 4 units HS ONCE SQ Last administered on 05/11/20at 23:02; Start 05/11/20 at 23:00; Stop 05/11/20 at 23:15; Status DC Insulin Human Lispro (HumaLOG) 4 units 1X ONCE SQ ; Start 05/11/20 at 23:30; Stop 05/11/20 at 23:31; Status DC Active Scripts Active Duoneb 0.5-3(2.5) Mg/3 Ml (Albuterol/Ipratropium) 3 Ml Ampul.neb 3 Ml NEB Q4HRS 14 Days Hydrocodone-Apap 5-325 (Hydrocodone Bit/Acetaminophen) 1 Tab Tablet 1 Tab PO PRN Q4HRS PRN Reported Allopurinol 100 Mg Tablet 1 Tab PO DAILY Trelegy Ellipta 100-62.5-25 (Fluticasone/Umeclidin/Vilanter) 1 Each Blst.w.dev 1 Each IH DAILY Prilosec Otc (Omeprazole Magnesium) 20 Mg Tablet.dr 40 Mg PO DAILY Entresto 49 mg-51 mg Tablet (Sacubitril/Valsartan) 1 Each Tablet 49-51 Mg PO BID K-Tab ER (Potassium Chloride) 20 Meq Tablet.er 20 Meq PO DAILY Montelukast Sodium Tablet (Montelukast Sodium) 10 Mg Tablet 10 Mg PO HS Levocetirizine Dihydrochloride 5 Mg Tablet 5 Mg PO DAILY Amitriptyline Hcl 25 Mg Tablet 25 Mg PO QHS Tylenol (Acetaminophen) 325 Mg Tablet 650 Mg PO PRN Q4HRS PRN Aspir 81 (Aspirin) 81 Mg Tablet.dr 1 Tab PO DAILY Metoprolol Succinate ( Xl ) (Metoprolol Succinate) 25 Mg Tab.er.24h 25 Mg PO MAY LY Vitamin D3 (Cholecalciferol (Vitamin D3)) 1,000 Unit Tablet 1 Tab PO DAILY Torsemide 20 Mg Tablet 1 Tab PO DAILY Gabapentin (Gabapentin) 100 Mg Capsule 100 Mg PO TID Ferrous Sulfate 325 Mg Tablet 1 Tab PO DAILY Daliresp (Roflumilast) 500 Mcg Tablet 1 Tab PO DAILY Atorvastatin Calcium 20 Mg Tablet 20 Mg PO HS Requip (Ropinirole Hcl) 1 Mg Tablet 3 Tab PO QHS Proair Hfa Inhaler (Albuterol Sulfate) 8.5 Gm Hfa.aer.ad 1 Puff INH PRN Q6HRS PRN Levothyroxine Sodium 50 Mcg Tablet 1 Tab PO DAILY Vitals/I & O Vital Sign - Last 24 Hours 05/11/20 05/11/20 05/11/20 05/11/20 15:36 15:57 19:41 20:00 Temp 98.2 98.8 98.2 98.8 Pulse 96 99 Resp 20 18 B/P (MAP) 105/52 (69) 116/37 (63) Pulse Ox 96 94 95 O2 Delivery Nasal Cannula Nasal Cannula Nasal Cannula Nasal Cannula O2 Flow Rate 2.0 2.0 2.0 2.0 05/11/20 05/11/20 05/11/20 05/11/20 20:31 20:34 20:44 22:36 Temp 98.5 98.5 Pulse 99 98 Resp 18 B/P (MAP) 116/37 97/44 (61) Pulse Ox 97 97 96 O2 Delivery Nasal Cannula Nasal Cannula Nasal Cannula O2 Flow Rate 2.0 2.0 2.0 05/12/20 05/12/20 05/12/20 05/12/20 01:18 02:51 07:00 07:25 Temp 98.8 98.8 98.8 98.8 Pulse 91 85 Resp 18 18 B/P (MAP) 108/46 (66) 118/51 (73) Pulse Ox 98 96 97 97 O2 Delivery Nasal Cannula Nasal Cannula Room Air Nasal Cannula O2 Flow Rate 2.0 2.0 05/12/20 05/12/20 05/12/20 08:56 10:47 11:00 Temp 98.0 98.0 Pulse 85 100 Resp 16 B/P (MAP) 118/51 86/29 (48) Pulse Ox 98 97 O2 Delivery Nasal Cannula Nasal Cannula O2 Flow Rate 2.0 2.0 Intake and Output 05/11/20 05/11/20 05/12/20 15:00 23:00 07:00 Intake Total 550 ml 0 ml Balance 550 ml 0 ml Justicifation of Admission Dx: Justifications for Admission: Justification of Admission Dx: Yes DEMETRA BABIN MD May 12, 2020 12:51
[2020-05-12 15:00] VITALS: BP 115/59
[2020-05-12 19:00] VITALS: BP 85/37
[2020-05-12] MEDS: ATORVASTATIN CALCIUM 20 MG TABLET PO SCH (21:18)
[2020-05-12] MEDS: AMITRIPTYLINE HCL 25 MG TABLET. PO SCH (21:18)
[2020-05-12] MEDS: MONTELUKAST SODIUM 10 MG TABLET. PO SCH (21:18)
[2020-05-12] MEDS: rOPINIRole 1 MG TABLET. PO SCH (21:18)
--- NOTE | 2020-05-12 21:28 | NUR ---
Jonnie held. BP was outside of limit; 85/57.
[2020-05-12 23:00] VITALS: BP 112/40
[2020-05-13] MEDS: IPRATRPIUM/ALBUTEROL 0.5/2.5MG 3 ML NEBU. NEB SCH ×6 (00:31→19:26)
[2020-05-13 03:00] VITALS: BP 102/46
[2020-05-13] MEDS: LEVOTHYROXINE 50 MCG TABLET PO SCH (05:55)
[2020-05-13] MEDS: methylPREDNISolone SOD SUCC PF 125 MG/2 ML VIAL. IV SCH ×3 (05:57→22:31)
[2020-05-13] MEDS: BUDESONIDE 0.5 MG/2 ML NEBU. NEB SCH ×2 (07:29→19:26)
[2020-05-13 07:37] VITALS: BP 120/59
[2020-05-13 07:43] LABS: BASO % 0 % (0-3); EOS % 0 % (0-3); HEMATOCRIT 32.2 % (36.0-47.0); HEMOGLOBIN 10.7 g/dL (12.0-15.5); LYMPH # 0.6 x10^3/uL (1.0-4.8); LYMPH % 3 % (24-48); MEAN CORPUSCULAR HEMOGLOBIN 31 pg (25-35); MEAN CORPUSCULAR HGB CONC 33 g/dL (31-37); MEAN CORPUSCULAR VOLUME 92 fL (79-100); MONO # 0.4 x10^3/uL (0.0-1.1); MONO % 3 % (0-9); NEUT # 15.1 x10^3/uL (1.8-7.7); NEUT % 94 % (31-73); PLATELET COUNT 131 x10^3/uL (140-400); RED BLOOD COUNT 3.49 x10^6/uL (3.50-5.40); RED CELL DISTRIBUTION WIDTH 15.7 % (11.5-14.5)
[2020-05-13] MEDS: INSULIN LISPRO 300 UNITS/3 ML VIAL. SQ SCH ×5 (08:00→22:40)
[2020-05-13 08:06] LABS: ALBUMIN 2.4 g/dL (3.4-5.0); ALBUMIN/GLOBULIN RATIO 0.9 (1.0-1.7); CALCIUM 7.8 mg/dL (8.5-10.1); CREATININE 1.1 mg/dL (0.6-1.0); GFR 49.7; POTASSIUM 4.7 mmol/L (3.5-5.1); TOTAL BILIRUBIN 0.2 mg/dL (0.2-1.0); TOTAL PROTEIN 5.2 g/dL (6.4-8.2)
[2020-05-13] MEDS: FERROUS SULFATE 325 MG TABLET. PO SCH (08:20)
[2020-05-13] MEDS: TORSEMIDE 20 MG TABLET. PO SCH (08:21)
[2020-05-13] MEDS: GABAPENTIN 100 MG CAPSULE. PO SCH ×3 (08:21→21:05)
[2020-05-13] MEDS: PANTOPRAZOLE 40 MG TABLET.DR. PO SCH (08:21)
[2020-05-13] MEDS: CETIRIZINE HCL 10 MG TABLET. PO SCH (08:21)
[2020-05-13] MEDS: ALLOPURINOL 100 MG TABLET. PO SCH (08:21)
[2020-05-13] MEDS: BENZONATATE 100 MG CAPSULE. PO SCH ×3 (08:21→21:05)
[2020-05-13] MEDS: POTASSIUM CHLORIDE 20 MEQ TABLET.ER. PO SCH (08:21)
[2020-05-13] MEDS: LACTOBACILLUS RHAMNOSUS GG 1 CAPSULE. PO SCH ×2 (08:21→21:05)
[2020-05-13] MEDS: CHOLECALCIFEROL (VITAMIN D3) 1,000 UNIT TABLET PO SCH (08:21)
[2020-05-13] MEDS: ROFLUMILAST 500 MCG TABLET. PO SCH (08:21)
[2020-05-13] MEDS: ASPIRIN ENTERIC COATED 81 MG TABLET.DR. PO SCH (08:22)
[2020-05-13] MEDS: SACUBITRIL/VALSARTAN 49/51MG TABLET. PO SCH ×2 (08:23→21:06)
[2020-05-13] MEDS: FLUTICASONE 50MCG/NASAL SPRAY 16GM BOTTLE. NS SCH (08:23)
--- NOTE | 2020-05-13 09:38 | NUR ---
SW following. Discussed with RN, pt not ready for discharge per pulmonology. SW will continue to follow. Plan for [facility] at discharge.
[2020-05-13 11:44] VITALS: BP 117/60
[2020-05-13] MEDS ORDERED: MAGNESIUM SULFATE 2GM 50 ML IV ONE (12:30)
--- NOTE | 2020-05-13 14:12 | PDOC ---
PROGRESS NOTES Date of Service: DATE: 05/13/20 TIME: 14:11 Chief Complaint Chief Complaint Respiratory failure, suspect chronic obstructive pulmonary disease exacerbation Probable concomitant pneumonia, GRAM NEG COVID-19 results neg COPD CAD CHF Diabetes-Type II High Cholesterol Hypertension Hypothyroid cont IV steroids History of Present Illness History of Present Illness 05/13. IV mag ordered some ability to ambulate, still weak, wheezy, right foot hurting, poss gout, 05/12, cough, wheeze, dyspnea, today, not much worse or hypoxic 05/11/20. cough PERSISTENT she reports that her torsemide dose had been increased by Dr. Driscoll Continue IV Solu-Medrol 60 q 6hrs. has MILD-MOD wheezing hold metoprolol. Empiric antibiotics D/W RN REPEAT ABG reviewed D/W 05/03/20. cont current, still weak, wheezing, plan OOB 05/02/20 Patient seen and examined - covid was negative Patient is in moderate distress with audible wheezing Discussed with RN Chart reviewed Vitals Vitals Vital Signs Date Time Temp Pulse Resp B/P (MAP) Pulse Ox O2 Delivery O2 Flow Rate FiO2 05/13/20 11:44 97.8 106 20 117/60 (79) 96 Nasal Cannula 2.0 97.8 Physical Exam General: Alert, Oriented X3, Cooperative, No acute distress Heart: Regular rate, Normal S1 Lungs: Wheezing Abdomen: Soft, No tenderness Extremities: No clubbing, No cyanosis, No edema Skin: No rashes, No significant lesion Labs LABS Laboratory Tests Test 05/12/20 16:38 05/12/20 20:24 05/13/20 07:04 05/13/20 07:20 Glucose (Fingerstick) 274 mg/dL (70-99) 356 mg/dL (70-99) 148 mg/dL (70-99) White Blood Count 16.0 x10^3/uL (4.0-11.0) Red Blood Count 3.49 x10^6/uL (3.50-5.40) Hemoglobin 10.7 g/dL (12.0-15.5) Hematocrit 32.2 % (36.0-47.0) Mean Corpuscular Volume 92 fL (79-100) Mean Corpuscular Hemoglobin 31 pg (25-35) Mean Corpuscular Hemoglobin Concent 33 g/dL (31-37) Red Cell Distribution Width 15.7 % (11.5-14.5) Platelet Count 131 x10^3/uL (140-400) Neutrophils (%) (Auto) 94 % (31-73) Lymphocytes (%) (Auto) 3 % (24-48) Monocytes (%) (Auto) 3 % (0-9) Eosinophils (%) (Auto) 0 % (0-3) Basophils (%) (Auto) 0 % (0-3) Neutrophils # (Auto) 15.1 x10^3/uL (1.8-7.7) Lymphocytes # (Auto) 0.6 x10^3/uL (1.0-4.8) Monocytes # (Auto) 0.4 x10^3/uL (0.0-1.1) Eosinophils # (Auto) 0.0 x10^3/uL (0.0-0.7) Basophils # (Auto) 0.0 x10^3/uL (0.0-0.2) Sodium Level 138 mmol/L (136-145) Potassium Level 4.7 mmol/L (3.5-5.1) Chloride Level 99 mmol/L (98-107) Carbon Dioxide Level 36 mmol/L (21-32) Anion Gap 3 (6-14) Blood Urea Nitrogen 36 mg/dL (7-20) Creatinine 1.1 mg/dL (0.6-1.0) Estimated GFR (Cockcroft-Gault) 49.7 BUN/Creatinine Ratio 33 (6-20) Glucose Level 172 mg/dL (70-99) Calcium Level 7.8 mg/dL (8.5-10.1) Total Bilirubin 0.2 mg/dL (0.2-1.0) Aspartate Amino Transf (AST/SGOT) 45 U/L (15-37) Alanine Aminotransferase (ALT/SGPT) 108 U/L (14-59) Alkaline Phosphatase 46 U/L (46-116) Total Protein 5.2 g/dL (6.4-8.2) Albumin 2.4 g/dL (3.4-5.0) Albumin/Globulin Ratio 0.9 (1.0-1.7) Test 05/13/20 11:35 Glucose (Fingerstick) 339 mg/dL (70-99) Assessment and Plan Assessmemt and Plan Problems Medical Problems: (1) COPD exacerbation Status: Acute Comment Review of Relevant I have reviewed the following items jon (where applicable) has been applied. Labs Laboratory Tests Test 05/11/20 17:29 05/11/20 20:54 05/12/20 05:50 05/12/20 07:35 Glucose (Fingerstick) 226 mg/dL (70-99) 301 mg/dL (70-99) 179 mg/dL (70-99) White Blood Count 17.3 x10^3/uL (4.0-11.0) Red Blood Count 3.51 x10^6/uL (3.50-5.40) Hemoglobin 10.8 g/dL (12.0-15.5) Hematocrit 32.5 % (36.0-47.0) Mean Corpuscular Volume 93 fL (79-100) Mean Corpuscular Hemoglobin 31 pg (25-35) Mean Corpuscular Hemoglobin Concent 33 g/dL (31-37) Red Cell Distribution Width 15.0 % (11.5-14.5) Platelet Count 137 x10^3/uL (140-400) Neutrophils (%) (Auto) 94 % (31-73) Lymphocytes (%) (Auto) 4 % (24-48) Monocytes (%) (Auto) 3 % (0-9) Eosinophils (%) (Auto) 0 % (0-3) Basophils (%) (Auto) 0 % (0-3) Neutrophils # (Auto) 16.2 x10^3/uL (1.8-7.7) Lymphocytes # (Auto) 0.6 x10^3/uL (1.0-4.8) Monocytes # (Auto) 0.5 x10^3/uL (0.0-1.1) Eosinophils # (Auto) 0.0 x10^3/uL (0.0-0.7) Basophils # (Auto) 0.0 x10^3/uL (0.0-0.2) Sodium Level 138 mmol/L (136-145) Potassium Level 4.7 mmol/L (3.5-5.1) Chloride Level 99 mmol/L (98-107) Carbon Dioxide Level 37 mmol/L (21-32) Anion Gap 2 (6-14) Blood Urea Nitrogen 40 mg/dL (7-20) Creatinine 1.0 mg/dL (0.6-1.0) Estimated GFR (Cockcroft-Gault) 55.5 BUN/Creatinine Ratio 40 (6-20) Glucose Level 189 mg/dL (70-99) Calcium Level 8.1 mg/dL (8.5-10.1) Total Bilirubin 0.2 mg/dL (0.2-1.0) Aspartate Amino Transf (AST/SGOT) 42 U/L (15-37) Alanine Aminotransferase (ALT/SGPT) 97 U/L (14-59) Alkaline Phosphatase 45 U/L (46-116) Total Protein 5.2 g/dL (6.4-8.2) Albumin 2.4 g/dL (3.4-5.0) Albumin/Globulin Ratio 0.9 (1.0-1.7) Test 05/12/20 11:40 05/12/20 16:38 05/12/20 20:24 05/13/20 07:04 Glucose (Fingerstick) 211 mg/dL (70-99) 274 mg/dL (70-99) 356 mg/dL (70-99) 148 mg/dL (70-99) Test 05/13/20 07:20 05/13/20 11:35 White Blood Count 16.0 x10^3/uL (4.0-11.0) Red Blood Count 3.49 x10^6/uL (3.50-5.40) Hemoglobin 10.7 g/dL (12.0-15.5) Hematocrit 32.2 % (36.0-47.0) Mean Corpuscular Volume 92 fL (79-100) Mean Corpuscular Hemoglobin 31 pg (25-35) Mean Corpuscular Hemoglobin Concent 33 g/dL (31-37) Red Cell Distribution Width 15.7 % (11.5-14.5) Platelet Count 131 x10^3/uL (140-400) Neutrophils (%) (Auto) 94 % (31-73) Lymphocytes (%) (Auto) 3 % (24-48) Monocytes (%) (Auto) 3 % (0-9) Eosinophils (%) (Auto) 0 % (0-3) Basophils (%) (Auto) 0 % (0-3) Neutrophils # (Auto) 15.1 x10^3/uL (1.8-7.7) Lymphocytes # (Auto) 0.6 x10^3/uL (1.0-4.8) Monocytes # (Auto) 0.4 x10^3/uL (0.0-1.1) Eosinophils # (Auto) 0.0 x10^3/uL (0.0-0.7) Basophils # (Auto) 0.0 x10^3/uL (0.0-0.2) Sodium Level 138 mmol/L (136-145) Potassium Level 4.7 mmol/L (3.5-5.1) Chloride Level 99 mmol/L (98-107) Carbon Dioxide Level 36 mmol/L (21-32) Anion Gap 3 (6-14) Blood Urea Nitrogen 36 mg/dL (7-20) Creatinine 1.1 mg/dL (0.6-1.0) Estimated GFR (Cockcroft-Gault) 49.7 BUN/Creatinine Ratio 33 (6-20) Glucose Level 172 mg/dL (70-99) Calcium Level 7.8 mg/dL (8.5-10.1) Total Bilirubin 0.2 mg/dL (0.2-1.0) Aspartate Amino Transf (AST/SGOT) 45 U/L (15-37) Alanine Aminotransferase (ALT/SGPT) 108 U/L (14-59) Alkaline Phosphatase 46 U/L (46-116) Total Protein 5.2 g/dL (6.4-8.2) Albumin 2.4 g/dL (3.4-5.0) Albumin/Globulin Ratio 0.9 (1.0-1.7) Glucose (Fingerstick) 339 mg/dL (70-99) Laboratory Tests Test 05/12/20 16:38 05/12/20 20:24 05/13/20 07:04 05/13/20 07:20 Glucose (Fingerstick) 274 mg/dL (70-99) 356 mg/dL (70-99) 148 mg/dL (70-99) White Blood Count 16.0 x10^3/uL (4.0-11.0) Red Blood Count 3.49 x10^6/uL (3.50-5.40) Hemoglobin 10.7 g/dL (12.0-15.5) Hematocrit 32.2 % (36.0-47.0) Mean Corpuscular Volume 92 fL (79-100) Mean Corpuscular Hemoglobin 31 pg (25-35) Mean Corpuscular Hemoglobin Concent 33 g/dL (31-37) Red Cell Distribution Width 15.7 % (11.5-14.5) Platelet Count 131 x10^3/uL (140-400) Neutrophils (%) (Auto) 94 % (31-73) Lymphocytes (%) (Auto) 3 % (24-48) Monocytes (%) (Auto) 3 % (0-9) Eosinophils (%) (Auto) 0 % (0-3) Basophils (%) (Auto) 0 % (0-3) Neutrophils # (Auto) 15.1 x10^3/uL (1.8-7.7) Lymphocytes # (Auto) 0.6 x10^3/uL (1.0-4.8) Monocytes # (Auto) 0.4 x10^3/uL (0.0-1.1) Eosinophils # (Auto) 0.0 x10^3/uL (0.0-0.7) Basophils # (Auto) 0.0 x10^3/uL (0.0-0.2) Sodium Level 138 mmol/L (136-145) Potassium Level 4.7 mmol/L (3.5-5.1) Chloride Level 99 mmol/L (98-107) Carbon Dioxide Level 36 mmol/L (21-32) Anion Gap 3 (6-14) Blood Urea Nitrogen 36 mg/dL (7-20) Creatinine 1.1 mg/dL (0.6-1.0) Estimated GFR (Cockcroft-Gault) 49.7 BUN/Creatinine Ratio 33 (6-20) Glucose Level 172 mg/dL (70-99) Calcium Level 7.8 mg/dL (8.5-10.1) Total Bilirubin 0.2 mg/dL (0.2-1.0) Aspartate Amino Transf (AST/SGOT) 45 U/L (15-37) Alanine Aminotransferase (ALT/SGPT) 108 U/L (14-59) Alkaline Phosphatase 46 U/L (46-116) Total Protein 5.2 g/dL (6.4-8.2) Albumin 2.4 g/dL (3.4-5.0) Albumin/Globulin Ratio 0.9 (1.0-1.7) Test 05/13/20 11:35 Glucose (Fingerstick) 339 mg/dL (70-99) Medications Current Medications Methylprednisolone Sodium Succinate (SOLU-Medrol 125MG VIAL) 125 mg 1X ONCE IV Last administered on 05/01/20at 14:10; Start 05/01/20 at 13:30; Stop 05/01/20 at 13:31; Status DC Albuterol Sulfate (Ventolin Neb Soln) 10 mg 1X ONCE CONT NEB Last administered on 05/01/20at 13:47; Start 05/01/20 at 13:30; Stop 05/01/20 at 13:31; Status DC Fentanyl Citrate (Fentanyl 2ml Vial) 50 mcg 1X ONCE IVP Last administered on 05/01/20at 14:10; Start 05/01/20 at 13:45; Stop 05/01/20 at 13:51; Status DC Sodium Chloride 1,000 ml @ 1,000 mls/hr 1X ONCE IV Last administered on 05/01/20at 14:12; Start 05/01/20 at 14:15; Stop 05/01/20 at 15:14; Status DC Azithromycin 250 ml @ 250 mls/hr 1X ONCE IV Last administered on 05/01/20at 14:26; Start 05/01/20 at 14:15; Stop 05/01/20 at 15:14; Status DC Ondansetron HCl (Zofran) 4 mg PRN Q8HRS PRN IV NAUSEA/VOMITING; Start 05/01/20 at 14:45; Stop 05/02/20 at 14:44; Status DC Fentanyl Citrate (Fentanyl 2ml Vial) 50 mcg PRN Q1HR PRN IV PAIN Last administered on 05/01/20at 16:12; Start 05/01/20 at 14:45; Stop 05/02/20 at 14:44; Status DC Acetaminophen (Tylenol) 650 mg PRN Q4HRS PRN PO MILD PAIN 1-3 Last administered on 05/04/20at 20:45; Start 05/01/20 at 20:45 Albuterol Sulfate (Ventolin Neb Soln) 2.5 mg PRN Q6HRS PRN INH SHORTNESS OF BREATH; Start 05/01/20 at 20:45 Allopurinol (Zyloprim) 100 mg DAILY PO Last administered on 05/13/20 08:21; Start 05/02/20 at 09:00 Amitriptyline HCl (Elavil) 25 mg QHS PO Last administered on 05/12/20 21:18; Start 05/01/20 at 21:00 Aspirin (Ecotrin) 81 mg DAILY PO Last administered on 05/13/20 08:22; Start 05/02/20 at 09:00 Atorvastatin Calcium (Lipitor) 20 mg HS PO Last administered on 05/12/20 21:18; Start 05/01/20 at 21:00 Vitamin D (Vitamin D3) 1,000 unit DAILY PO Last administered on 05/13/20 08:21; Start 05/02/20 at 09:00 Ferrous Sulfate (Feosol) 325 mg DAILY PO Last administered on 05/13/20 08:20; Start 05/02/20 at 09:00 Gabapentin (Neurontin) 100 mg TID PO Last administered on 05/13/20 08:21; Start 05/01/20 at 21:00 Acetaminophen/ Hydrocodone Bitart (Lortab 5/325) 1 tab PRN Q4HRS PRN PO MODERATE PAIN 4-6 Last administered on 05/10/20 14:14; Start 05/01/20 at 20:45 Albuterol/ Ipratropium (Duoneb) 3 ml Q4HRS W/A NEB ; Start 05/01/20 at 22:00; Stop 05/02/20 at 10:59; Status DC Levothyroxine Sodium (Synthroid) 50 mcg DAILY06 PO Last administered on 05/13/20at 05:55; Start 05/02/20 at 06:00 Metoprolol Succinate (Toprol Xl) 25 mg DAILY PO Last administered on 05/05/20 08:01; Start 05/02/20 at 09:00; Stop 05/05/20 at 09:58; Status DC Montelukast Sodium (Singulair) 10 mg HS PO Last administered on 05/12/20 21:18; Start 05/01/20 at 21:00 Roflumilast (Daliresp) 500 mcg DAILY PO Last administered on 05/13/20 08:21; Start 05/02/20 at 09:00 Ropinirole HCl (Requip) 3 mg QHS PO Last administered on 05/12/20 21:18; Start 05/01/20 at 21:00 Sacubitril/ Valsartan (Entresto 49 Mg-51 Mg) 1 tab BID PO Last administered on 05/13/20 08:23; Start 05/01/20 at 21:00 Torsemide (Demadex) 20 mg DAILY PO Last administered on 05/03/20 08:43; Start 05/02/20 at 09:00; Stop 05/04/20 at 09:55; Status DC Budesonide (Pulmicort) 0.5 mg RTBID NEB Last administered on 05/13/20 07:29; Start 05/02/20 at 08:00 Cetirizine HCl (ZyrTEC) 10 mg DAILY PO Last administered on 05/13/20 08:21; Start 05/02/20 at 09:00 Pantoprazole Sodium (Protonix) 40 mg DAILYAC PO Last administered on 05/13/20 08:21; Start 05/02/20 at 07:30 Potassium Chloride (Klor-Con) 20 meq DAILYWBKFT PO Last administered on 05/13/20 08:21; Start 05/02/20 at 08:00 Methylprednisolone Sodium Succinate (SOLU-Medrol 40MG VIAL) 60 mg Q6HRS IV Last administered on 05/09/20at 07:24; Start 05/02/20 at 05:00; Stop 05/09/20 at 11:38; Status DC Azithromycin 500 mg/Sodium Chloride 250 ml @ 250 mls/hr Q24H IV Last administered on 05/03/20at 11:59; Start 05/02/20 at 10:00; Stop 05/03/20 at 12:58; Status DC Albuterol/ Ipratropium (Combivent Respimat 20-100 Mcg) 1 puff Q4HRS W/A INH L ast administered on 05/02/20at 17:39; Start 05/02/20 at 14:00; Stop 05/02/20 at 18:39; Status DC Albuterol/ Ipratropium (Duoneb) 3 ml Q4HRS NEB Last administered on 05/05/20at 00:13; Start 05/02/20 at 20:00; Stop 05/05/20 at 05:24; Status DC Fluticasone Propionate (Flonase) 2 spray DAILY NS Last administered on 05/13/20at 08:23; Start 05/03/20 at 12:00 Lactobacillus Rhamnosus (Culturelle) 1 cap BID PO ; Start 05/03/20 at 21:00; Status Cancel Azithromycin (Zithromax) 500 mg DAILY PO Last administered on 05/12/20at 08:56; Start 05/04/20 at 09:00; Stop 05/12/20 at 12:36; Status DC Benzonatate (Tessalon Perle) 100 mg [id number] PO Last administered on 05/13/20at 08:21; Start 05/04/20 at 10:00 Guaifenesin (Robitussin Dm) 10 ml PRN Q6HRS PRN PO COUGH Last administered on 05/05/20at 12:02; Start 05/04/20 at 10:00 Torsemide (Demadex) 40 mg DAILY PO Last administered on 05/04/20at 10:21; Start 05/05/20 at 09:00; Stop 05/04/20 at 12:45; Status DC Torsemide (Demadex) 20 mg 1X ONCE PO ; Start 05/04/20 at 10:15; Stop 05/04/20 at 10:16; Status DC Torsemide (Demadex) 40 mg DAILY PO Last administered on 05/13/20at 08:21; Start 05/05/20 at 09:00 Diphenhydramine HCl (Benadryl) 25 mg PRN Q6HRS PRN IVP ITCHING Last administered on 05/04/20at 21:31; Start 05/04/20 at 21:30 Albuterol/ Ipratropium (Duoneb) 3 ml RTQID NEB Last administered on 05/05/20at 06:59; Start 05/05/20 at 08:00; Stop 05/05/20 at 10:00; Status DC Albuterol/ Ipratropium (Duoneb) 3 ml Q4HRS NEB Last administered on 05/13/20at 10:59; Start 05/05/20 at 10:00 Lactobacillus Rhamnosus (Culturelle) 1 cap BID PO Last administered on 05/13/20 08:21; Start 05/05/20 at 21:00 Phenol (Chloraseptic) 1 spray PRN Q2HR PRN PO SORE THROAT Last administered on 05/07/20at 08:38; Start 05/05/20 at 12:00 Insulin Human Lispro (HumaLOG) 0-7 UNITS TIDWMEALS SQ Last administered on 05/12/20at 17:03; Start 05/05/20 at 12:30; Stop 05/12/20 at 19:23; Status DC Dextrose (Dextrose 50%-Water Syringe) 12.5 gm PRN Q15MIN PRN IV SEE COMMENTS; Start 05/05/20 at 12:00 Magnesium Sulfate 50 ml @ 25 mls/hr 1X ONCE IV Last administered on 05/07/20at 11:30; Start 05/07/20 at 11:00; Stop 05/07/20 at 12:59; Status DC Insulin Human Lispro (HumaLOG) 7 units 1X ONCE SQ Last administered on 05/07/20at 22:38; Start 05/07/20 at 22:30; Stop 05/07/20 at 22:33; Status DC Magnesium Sulfate 50 ml @ 25 mls/hr 1X ONCE IV Last administered on 05/08/20at 11:32; Start 05/08/20 at 11:30; Stop 05/08/20 at 13:29; Status DC Furosemide (Lasix) 40 mg 1X ONCE IVP Last administered on 05/08/20at 11:32; Start 05/08/20 at 11:45; Stop 05/08/20 at 11:46; Status DC Insulin Human Lispro (HumaLOG) 4 units 1X ONCE SQ Last administered on 05/08/20at 21:41; Start 05/08/20 at 21:30; Stop 05/08/20 at 21:31; Status DC Methylprednisolone Sodium Succinate (SOLU-Medrol 40MG VIAL) 80 mg Q6HRS IV Last administered on 05/10/20at 05:59; Start 05/09/20 at 12:00; Stop 05/10/20 at 07:32; Status DC Methylprednisolone Sodium Succinate (SOLU-Medrol 125MG VIAL) 80 mg Q8HRS IV Last administered on 05/13/20at 05:57; Start 05/10/20 at 14:00 Insulin Human Lispro (HumaLOG) 3 units 1X ONCE SQ Last administered on 05/11/20at 08:25; Start 05/11/20 at 08:00; Stop 05/11/20 at 08:01; Status DC Insulin Human Lispro (HumaLOG) 4 units HS ONCE SQ Last administered on 05/11/20at 23:02; Start 05/11/20 at 23:00; Stop 05/11/20 at 23:15; Status DC Insulin Human Lispro (HumaLOG) 4 units 1X ONCE SQ ; Start 05/11/20 at 23:30; Stop 05/11/20 at 23:31; Status DC Insulin Human Lispro (HumaLOG) 0-7 UNITS TIDWMEALHC SQ Last administered on 05/13/20at 12:30; Start 05/12/20 at 21:00 Magnesium Sulfate 50 ml @ 25 mls/hr 1X ONCE IV Last administered on 05/13/20at 12:24; Start 05/13/20 at 12:30; Stop 05/13/20 at 14:29 Insulin Glargine (Lantus Syringe) 15 unit DAILY08 SQ ; Start 05/13/20 at 13:45 Active Scripts Active Duoneb 0.5-3(2.5) Mg/3 Ml (Albuterol/Ipratropium) 3 Ml Ampul.neb 3 Ml NEB Q4HRS 14 Days Hydrocodone-Apap 5-325 (Hydrocodone Bit/Acetaminophen) 1 Tab Tablet 1 Tab PO PRN Q4HRS PRN Reported Allopurinol 100 Mg Tablet 1 Tab PO DAILY Trelegy Ellipta 100-62.5-25 (Fluticasone/Umeclidin/Vilanter) 1 Each Blst.w.dev 1 Each IH DAILY Prilosec Otc (Omeprazole Magnesium) 20 Mg Tablet.dr 40 Mg PO DAILY Entresto 49 mg-51 mg Tablet (Sacubitril/Valsartan) 1 Each Tablet 49-51 Mg PO BID K-Tab ER (Potassium Chloride) 20 Meq Tablet.er 20 Meq PO DAILY Montelukast Sodium Tablet (Montelukast Sodium) 10 Mg Tablet 10 Mg PO HS Levocetirizine Dihydrochloride 5 Mg Tablet 5 Mg PO DAILY Amitriptyline Hcl 25 Mg Tablet 25 Mg PO QHS Tylenol (Acetaminophen) 325 Mg Tablet 650 Mg PO PRN Q4HRS PRN Aspir 81 (Aspirin) 81 Mg Tablet.dr 1 Tab PO DAILY Metoprolol Succinate ( Xl ) (Metoprolol Succinate) 25 Mg Tab.er.24h 25 Mg PO DAILY Vitamin D3 (Cholecalciferol (Vitamin D3)) 1,000 Unit Tablet 1 Tab PO DAILY Torsemide 20 Mg Tablet 1 Tab PO DAILY Gabapentin (Gabapentin) 100 Mg Capsule 100 Mg PO TID Ferrous Sulfate 325 Mg Tablet 1 Tab PO DAILY Daliresp (Roflumilast) 500 Mcg Tablet 1 Tab PO DAILY Atorvastatin Calcium 20 Mg Tablet 20 Mg PO HS Requip (Ropinirole Hcl) 1 Mg Tablet 3 Tab PO QHS Proair Hfa Inhaler (Albuterol Sulfate) 8.5 Gm Hfa.aer.ad 1 Puff INH PRN Q6HRS PRN Levothyroxine Sodium 50 Mcg Tablet 1 Tab PO DAILY Vitals/I & O Vital Sign - Last 24 Hours 05/12/20 05/12/20 05/12/20 05/12/20 15:00 15:26 19:00 19:38 Temp 98.2 99.3 98.2 99.3 Pulse 82 102 Resp 16 22 B/P (MAP) 115/59 (77) 85/37 (53) Pulse Ox 97 95 O2 Delivery Room Air Nasal Cannula Nasal Cannula Nasal Cannula O2 Flow Rate 2.0 2.0 2.0 05/12/20 05/12/20 05/12/20 05/12/20 19:39 20:00 21:00 23:00 Temp 99.1 99.1 Pulse 102 96 Resp 18 B/P (MAP) 85/37 112/40 (64) Pulse Ox 96 O2 Delivery Nasal Cannula Nasal Cannula Room Air O2 Flow Rate 2.0 2.0 05/13/20 05/13/20 05/13/20 05/13/20 00:31 03:00 07:28 07:37 Temp 99.0 98.2 99.0 98.2 Pulse 87 85 Resp 20 20 B/P (MAP) 102/46 (64) 120/59 (79) Pulse Ox 97 97 98 94 O2 Delivery Nasal Cannula Nasal Cannula Nasal Cannula Nasal Cannula O2 Flow Rate 2.0 2.0 2.0 2.0 05/13/20 05/13/20 05/13/20 05/13/20 08:00 08:23 10:59 11:44 Temp 97.8 97.8 Pulse 85 106 Resp 20 B/P (MAP) 120/59 117/60 (79) Pulse Ox 96 O2 Delivery Nasal Cannula Nasal Cannula Nasal Cannula O2 Flow Rate 2.0 2.0 2.0 Intake and Output 05/12/20 05/12/20 05/13/20 15:00 23:00 07:00 Intake Total 640 ml Output Total 0 ml 0 ml Balance 640 ml 0 ml 0 ml Justicifation of Admission Dx: Justifications for Admission: Justification of Admission Dx: Yes DEMETRA BABIN MD May 13, 2020 14:12
[2020-05-13 15:30] VITALS: BP 102/39
[2020-05-13] MEDS: INSULIN GLARGINE SYRINGE. SQ SCH (15:57)
--- NOTE | 2020-05-13 16:39 | PDOC ---
Provider Note Provider Note patient in shower. Not seen. RN reports soa/ wheezing not better. will add another dose of MgSo4 today Justicifation of Admission Dx: Justifications for Admission: Justification of Admission Dx: Yes IMELDA EASTMAN MD May 13, 2020 16:39
[2020-05-13 19:00] VITALS: BP 107/44
[2020-05-13] MEDS: rOPINIRole 1 MG TABLET. PO SCH (21:05)
[2020-05-13] MEDS: ATORVASTATIN CALCIUM 20 MG TABLET PO SCH (21:05)
[2020-05-13] MEDS: MONTELUKAST SODIUM 10 MG TABLET. PO SCH (21:05)
[2020-05-13] MEDS: AMITRIPTYLINE HCL 25 MG TABLET. PO SCH (21:05)
[2020-05-13 23:00] VITALS: BP 109/61
[2020-05-14 03:00] VITALS: BP 98/49
[2020-05-14] MEDS: IPRATRPIUM/ALBUTEROL 0.5/2.5MG 3 ML NEBU. NEB SCH ×6 (04:00→20:00)
[2020-05-14] MEDS: LEVOTHYROXINE 50 MCG TABLET PO SCH (05:52)
[2020-05-14] MEDS: methylPREDNISolone SOD SUCC PF 125 MG/2 ML VIAL. IV SCH ×3 (05:53→21:35)
[2020-05-14 07:00] VITALS: BP 103/44
[2020-05-14] MEDS: BUDESONIDE 0.5 MG/2 ML NEBU. NEB SCH ×2 (07:36→20:00)
[2020-05-14] MEDS: POTASSIUM CHLORIDE 20 MEQ TABLET.ER. PO SCH (08:21)
[2020-05-14] MEDS: ALLOPURINOL 100 MG TABLET. PO SCH (08:21)
[2020-05-14] MEDS: BENZONATATE 100 MG CAPSULE. PO SCH ×3 (08:22→21:28)
[2020-05-14] MEDS: TORSEMIDE 20 MG TABLET. PO SCH (08:22)
[2020-05-14] MEDS: SACUBITRIL/VALSARTAN 49/51MG TABLET. PO SCH ×2 (08:22→21:27)
[2020-05-14] MEDS: GABAPENTIN 100 MG CAPSULE. PO SCH ×3 (08:22→21:28)
[2020-05-14] MEDS: CHOLECALCIFEROL (VITAMIN D3) 1,000 UNIT TABLET PO SCH (08:22)
[2020-05-14] MEDS: FERROUS SULFATE 325 MG TABLET. PO SCH (08:22)
[2020-05-14] MEDS: HYDROcodone/APAP 5/325MG 1 TAB TABLET PO PRN (08:23)
[2020-05-14] MEDS: PANTOPRAZOLE 40 MG TABLET.DR. PO SCH (08:23)
[2020-05-14] MEDS: FLUTICASONE 50MCG/NASAL SPRAY 16GM BOTTLE. NS SCH (08:23)
[2020-05-14] MEDS: ROFLUMILAST 500 MCG TABLET. PO SCH (08:23)
[2020-05-14] MEDS: ASPIRIN ENTERIC COATED 81 MG TABLET.DR. PO SCH (08:23)
[2020-05-14] MEDS: LACTOBACILLUS RHAMNOSUS GG 1 CAPSULE. PO SCH ×2 (08:23→21:28)
[2020-05-14] MEDS: CETIRIZINE HCL 10 MG TABLET. PO SCH (08:23)
[2020-05-14] MEDS: INSULIN GLARGINE SYRINGE. SQ SCH ×2 (09:50→21:32)
[2020-05-14 11:00] VITALS: BP 98/40
--- NOTE | 2020-05-14 11:02 | PDOC ---
PULMONARY PROGRESS NOTES DATE: 05/14/20 TIME: 11:00 Subjective Feeling better today, remains on 3 liters N/C improved cough and improved wheezing reports post nasal gtt Vitals Vital Signs Date Time Temp Pulse Resp B/P (MAP) Pulse Ox O2 Delivery O2 Flow Rate FiO2 05/14/20 09:47 Nasal Cannula 3.0 05/14/20 08:22 85 103/44 05/14/20 07:30 99 05/14/20 07:00 98.1 16 98.1 ROS: No Nausea, No Chest Pain General: Alert, Oriented X4, No acute distress HEENT: Other (nc at [facility] [place] ) Lungs: Wheezing Cardiovascular: S1, S2 Abdomen: Soft, Non-tender Neuro Exam: Alert Extremities: No Edema Skin: Warm Labs Laboratory Tests Test 05/12/20 11:40 05/12/20 16:38 05/12/20 20:24 05/13/20 07:04 Glucose (Fingerstick) 211 mg/dL (70-99) 274 mg/dL (70-99) 356 mg/dL (70-99) 148 mg/dL (70-99) Test 05/13/20 07:20 05/13/20 11:35 05/13/20 16:39 05/13/20 21:01 White Blood Count 16.0 x10^3/uL (4.0-11.0) Red Blood Count 3.49 x10^6/uL (3.50-5.40) Hemoglobin 10.7 g/dL (12.0-15.5) Hematocrit 32.2 % (36.0-47.0) Mean Corpuscular Volume 92 fL (79-100) Mean Corpuscular Hemoglobin 31 pg (25-35) Mean Corpuscular Hemoglobin Concent 33 g/dL (31-37) Red Cell Distribution Width 15.7 % (11.5-14.5) Platelet Count 131 x10^3/uL (140-400) Neutrophils (%) (Auto) 94 % (31-73) Lymphocytes (%) (Auto) 3 % (24-48) Monocytes (%) (Auto) 3 % (0-9) Eosinophils (%) (Auto) 0 % (0-3) Basophils (%) (Auto) 0 % (0-3) Neutrophils # (Auto) 15.1 x10^3/uL (1.8-7.7) Lymphocytes # (Auto) 0.6 x10^3/uL (1.0-4.8) Monocytes # (Auto) 0.4 x10^3/uL (0.0-1.1) Eosinophils # (Auto) 0.0 x10^3/uL (0.0-0.7) Basophils # (Auto) 0.0 x10^3/uL (0.0-0.2) Sodium Level 138 mmol/L (136-145) Potassium Level 4.7 mmol/L (3.5-5.1) Chloride Level 99 mmol/L (98-107) Carbon Dioxide Level 36 mmol/L (21-32) Anion Gap 3 (6-14) Blood Urea Nitrogen 36 mg/dL (7-20) Creatinine 1.1 mg/dL (0.6-1.0) Estimated GFR (Cockcroft-Gault) 49.7 BUN/Creatinine Ratio 33 (6-20) Glucose Level 172 mg/dL (70-99) Calcium Level 7.8 mg/dL (8.5-10.1) Total Bilirubin 0.2 mg/dL (0.2-1.0) Aspartate Amino Transf (AST/SGOT) 45 U/L (15-37) Alanine Aminotransferase (ALT/SGPT) 108 U/L (14-59) Alkaline Phosphatase 46 U/L (46-116) Total Protein 5.2 g/dL (6.4-8.2) Albumin 2.4 g/dL (3.4-5.0) Albumin/Globulin Ratio 0.9 (1.0-1.7) Glucose (Fingerstick) 339 mg/dL (70-99) 62 mg/dL (70-99) 412 mg/dL (70-99) Test 05/13/20 22:09 05/13/20 22:19 05/13/20 23:03 05/14/20 07:11 Glucose (Fingerstick) 499 mg/dL (70-99) 466 mg/dL (70-99) 412 mg/dL (70-99) 171 mg/dL (70-99) Laboratory Tests Test 05/13/20 11:35 05/13/20 16:39 05/13/20 21:01 05/13/20 22:09 Glucose (Fingerstick) 339 mg/dL (70-99) 62 mg/dL (70-99) 412 mg/dL (70-99) 499 mg/dL (70-99) Test 05/13/20 22:19 05/13/20 23:03 05/14/20 07:11 Glucose (Fingerstick) 466 mg/dL (70-99) 412 mg/dL (70-99) 171 mg/dL (70-99) Medications Active Scripts Medications Dose Route/Sig Max Daily Dose Days Date Category Allopurinol 100 Mg Tablet 1 Tab PO DAILY 05/01/20 Reported Trelegy Ellipta 100-62.5-25 (Fluticasone/Umeclidin/Vilanter) 1 Each Blst.w.dev 1 Each IH DAILY 03/17/20 Reported Prilosec Otc (Omeprazole Magnesium) 20 Mg Tablet.dr 40 Mg PO DAILY 03/17/20 Reported Duoneb 0.5-3(2.5) Mg/3 Ml (Albuterol/Ipratropium) 3 Ml Ampul.neb 3 Ml NEB Q4HRS 14 10/22/19 Rx Hydrocodone-Apap 5-325 (Hydrocodone Bit/Acetaminophen) 1 Tab Tablet 1 Tab PO PRN Q4HRS PRN 10/20/19 Rx Entresto 49 mg-51 mg Tablet (Sacubitril/Valsartan) 1 Each Tablet 49-51 Mg PO BID 07/30/19 Reported K-Tab ER (Potassium Chloride) 20 Meq Tablet.er 20 Meq PO DAILY 07/30/19 Reported Montelukast Sodium Tablet (Montelukast Sodium) 10 Mg Tablet 10 Mg PO HS 07/29/19 Reported Levocetirizine Dihydrochloride 5 Mg Tablet 5 Mg PO DAILY 07/29/19 Reported Amitriptyline Hcl 25 Mg Tablet 25 Mg PO QHS 07/29/19 Reported Tylenol (Acetaminophen) 325 Mg Tablet 650 Mg PO PRN Q4HRS PRN 07/29/19 Reported Aspir 81 (Aspirin) 81 Mg Tablet.dr 1 Tab PO DAILY 01/03/18 Reported Metoprolol Succinate ( Xl ) (Metoprolol Succinate) 25 Mg Tab.er.24h 25 Mg PO DAILY 01/03/18 Reported Vitamin D3 (Cholecalciferol (Vitamin D3)) 1,000 Unit Tablet 1 Tab PO DAILY 01/02/18 Reported Torsemide 20 Mg Tablet 1 Tab PO DAILY 01/02/18 Reported Gabapentin (Gabapentin) 100 Mg Capsule 100 Mg PO TID 01/02/18 Reported Ferrous Sulfate 325 Mg Tablet 1 Tab PO DAILY 09/23/17 Reported Daliresp (Roflumilast) 500 Mcg Tablet 1 Tab PO DAILY 09/23/17 Reported Atorvastatin Calcium 20 Mg Tablet 20 Mg PO HS 09/23/17 Reported Requip (Ropinirole Hcl) 1 Mg Tablet 3 Tab PO QHS 09/23/17 Reported Proair Hfa Inhaler (Albuterol Sulfate) 8.5 Gm Hfa.aer.ad 1 Puff INH PRN Q6HRS PRN 09/23/17 Reported Levothyroxine Sodium 50 Mcg Tablet 1 Tab PO DAILY 09/23/[address] No pulmonary mass or consolidation. Impression . IMPRESSION: 1. Dyspnea secondary to acute exacerbation of chronic obstructive pulmonary disease with persistent wheezing.no CHF. Pt had left heart cath 03/22 and had LVEDP of 27 2. No signs of pneumonia. 3. Chronic compensated hypercapnia. 4. allergic rhinitis Plan . RECOMMENDATIONS: 1. wheezing, mostly upper airway wheezing . holding metoprolol. s/p Mg So4 X 2days, ct reviewed, No pulmonary mass or consolidation. no CHF. 2. cont solumedrol 80 q 8 hrs 3. continue plumicort 4. off abx 5. COVID test is negative, 6. BD q 4hrs cont ics, cont flonase, add mucinex 7. Not ready for dc 8. on protonix for PPI Discussed with RN, and Patient IMELDA EASTMAN MD May 14, 2020 11:02
--- NOTE | 2020-05-14 11:07 | NUR ---
SW following. Discussed with RN, pt slightly better today. Dr. Tejeda's note states "not ready for discharge." Plan is [facility] at discharge.
[2020-05-14] MEDS: INSULIN LISPRO 300 UNITS/3 ML VIAL. SQ SCH ×4 (12:01→21:45)
--- NOTE | 2020-05-14 13:38 | PDOC ---
PROGRESS NOTES Date of Service: DATE: 05/14/20 TIME: 13:38 Chief Complaint Chief Complaint Respiratory failure, suspect chronic obstructive pulmonary disease exacerbation Probable concomitant pneumonia, GRAM NEG COVID-19 results neg COPD CAD CHF Diabetes-Type II High Cholesterol Hypertension Hypothyroid cont IV steroids History of Present Illness History of Present Illness 05/14. wheezing, weak, a little better, no event, eating OK 05/13. IV mag ordered some ability to ambulate, still weak, wheezy, right foot hurting, poss gout, 05/12, cough, wheeze, dyspnea, today, not much worse or hypoxic 05/11/20. cough PERSISTENT she reports that her torsemide dose had been increased by Dr. Driscoll Continue IV Solu-Medrol 60 q 6hrs. has MILD-MOD wheezing hold metoprolol. Empiric antibiotics D/W RN REPEAT ABG reviewed D/W 05/03/20. cont current, still weak, wheezing, plan OOB 05/02/20 Patient seen and examined - covid was negative Patient is in moderate distress with audible wheezing Discussed with RN Chart reviewed Vitals Vitals Vital Signs Date Time Temp Pulse Resp B/P (MAP) Pulse Ox O2 Delivery O2 Flow Rate FiO2 05/14/20 11:26 97 Nasal Cannula 3.0 05/14/20 11:00 98.6 95 14 98/40 (59) 98.6 Physical Exam General: Alert, Oriented X3, Cooperative, No acute distress Heart: Regular rate, Normal S1 Lungs: Wheezing Abdomen: Soft, No tenderness Extremities: No clubbing, No cyanosis, No edema Skin: No rashes, No significant lesion Labs LABS Laboratory Tests Test 05/13/20 16:39 05/13/20 21:01 05/13/20 22:09 05/13/20 22:19 Glucose (Fingerstick) 62 mg/dL (70-99) 412 mg/dL (70-99) 499 mg/dL (70-99) 466 mg/dL (70-99) Test 05/13/20 23:03 05/14/20 07:11 05/14/20 11:06 Glucose (Fingerstick) 412 mg/dL (70-99) 171 mg/dL (70-99) 335 mg/dL (70-99) Assessment and Plan Assessmemt and Plan Problems Medical Problems: (1) COPD exacerbation Status: Acute Comment Review of Relevant I have reviewed the following items jon (where applicable) has been applied. Labs Laboratory Tests Test 05/12/20 16:38 05/12/20 20:24 05/13/20 07:04 05/13/20 07:20 Glucose (Fingerstick) 274 mg/dL (70-99) 356 mg/dL (70-99) 148 mg/dL (70-99) White Blood Count 16.0 x10^3/uL (4.0-11.0) Red Blood Count 3.49 x10^6/uL (3.50-5.40) Hemoglobin 10.7 g/dL (12.0-15.5) Hematocrit 32.2 % (36.0-47.0) Mean Corpuscular Volume 92 fL (79-100) Mean Corpuscular Hemoglobin 31 pg (25-35) Mean Corpuscular Hemoglobin Concent 33 g/dL (31-37) Red Cell Distribution Width 15.7 % (11.5-14.5) Platelet Count 131 x10^3/uL (140-400) Neutrophils (%) (Auto) 94 % (31-73) Lymphocytes (%) (Auto) 3 % (24-48) Monocytes (%) (Auto) 3 % (0-9) Eosinophils (%) (Auto) 0 % (0-3) Basophils (%) (Auto) 0 % (0-3) Neutrophils # (Auto) 15.1 x10^3/uL (1.8-7.7) Lymphocytes # (Auto) 0.6 x10^3/uL (1.0-4.8) Monocytes # (Auto) 0.4 x10^3/uL (0.0-1.1) Eosinophils # (Auto) 0.0 x10^3/uL (0.0-0.7) Basophils # (Auto) 0.0 x10^3/uL (0.0-0.2) Sodium Level 138 mmol/L (136-145) Potassium Level 4.7 mmol/L (3.5-5.1) Chloride Level 99 mmol/L (98-107) Carbon Dioxide Level 36 mmol/L (21-32) Anion Gap 3 (6-14) Blood Urea Nitrogen 36 mg/dL (7-20) Creatinine 1.1 mg/dL (0.6-1.0) Estimated GFR (Cockcroft-Gault) 49.7 BUN/Creatinine Ratio 33 (6-20) Glucose Level 172 mg/dL (70-99) Calcium Level 7.8 mg/dL (8.5-10.1) Total Bilirubin 0.2 mg/dL (0.2-1.0) Aspartate Amino Transf (AST/SGOT) 45 U/L (15-37) Alanine Aminotransferase (ALT/SGPT) 108 U/L (14-59) Alkaline Phosphatase 46 U/L (46-116) Total Protein 5.2 g/dL (6.4-8.2) Albumin 2.4 g/dL (3.4-5.0) Albumin/Globulin Ratio 0.9 (1.0-1.7) Test 05/13/20 11:35 05/13/20 16:39 05/13/20 21:01 05/13/20 22:09 Glucose (Fingerstick) 339 mg/dL (70-99) 62 mg/dL (70-99) 412 mg/dL (70-99) 499 mg/dL (70-99) Test 05/13/20 22:19 05/13/20 23:03 05/14/20 07:11 05/14/20 11:06 Glucose (Fingerstick) 466 mg/dL (70-99) 412 mg/dL (70-99) 171 mg/dL (70-99) 335 mg/dL (70-99) Laboratory Tests Test 05/13/20 16:39 05/13/20 21:01 05/13/20 22:09 05/13/20 22:19 Glucose (Fingerstick) 62 mg/dL (70-99) 412 mg/dL (70-99) 499 mg/dL (70-99) 466 mg/dL (70-99) Test 05/13/20 23:03 05/14/20 07:11 05/14/20 11:06 Glucose (Fingerstick) 412 mg/dL (70-99) 171 mg/dL (70-99) 335 mg/dL (70-99) Medications Current Medications Methylprednisolone Sodium Succinate (SOLU-Medrol 125MG VIAL) 125 mg 1X ONCE IV Last administered on 05/01/20at 14:10; Start 05/01/20 at 13:30; Stop 05/01/20 at 13:31; Status DC Albuterol Sulfate (Ventolin Neb Soln) 10 mg 1X ONCE CONT NEB Last administered on 05/01/20at 13:47; Start 05/01/20 at 13:30; Stop 05/01/20 at 13:31; Status DC Fentanyl Citrate (Fentanyl 2ml Vial) 50 mcg 1X ONCE IVP Last administered on 05/01/20at 14:10; Start 05/01/20 at 13:45; Stop 05/01/20 at 13:51; Status DC Sodium Chloride 1,000 ml @ 1,000 mls/hr 1X ONCE IV Last administered on 05/01/20at 14:12; Start 05/01/20 at 14:15; Stop 05/01/20 at 15:14; Status DC Azithromycin 250 ml @ 250 mls/hr 1X ONCE IV Last administered on 05/01/20at 14:26; Start 05/01/20 at 14:15; Stop 05/01/20 at 15:14; Status DC Ondansetron HCl (Zofran) 4 mg PRN Q8HRS PRN IV NAUSEA/VOMITING; Start 05/01/20 at 14:45; Stop 05/02/20 at 14:44; Status DC Fentanyl Citrate (Fentanyl 2ml Vial) 50 mcg PRN Q1HR PRN IV PAIN Last administered on 05/01/20at 16:12; Start 05/01/20 at 14:45; Stop 05/02/20 at 14:44; Status DC Acetaminophen (Tylenol) 650 mg PRN Q4HRS PRN PO MILD PAIN 1-3 Last administered on 05/04/20at 20:45; Start 05/01/20 at 20:45 Albuterol Sulfate (Ventolin Neb Soln) 2.5 mg PRN Q6HRS PRN INH SHORTNESS OF BREATH; Start 05/01/20 at 20:45 Allopurinol (Zyloprim) 100 mg DAILY PO Last administered on 05/14/20at 08:21; Start 05/02/20 at 09:00 Amitriptyline HCl (Elavil) 25 mg QHS PO Last administered on 05/13/20at 21:05; Start 05/01/20 at 21:00 Aspirin (Ecotrin) 81 mg DAILY PO Last administered on 8/12/20at 08:23; Start 05/02/20 at 09:00 Atorvastatin Calcium (Lipitor) 20 mg HS PO Last administered on 05/13/20 21:05; Start 05/01/20 at 21:00 Vitamin D (Vitamin D3) 1,000 unit DAILY PO Last administered on 05/14/20 08:22; Start 05/02/20 at 09:00 Ferrous Sulfate (Feosol) 325 mg DAILY PO Last administered on 05/14/20 08:22; Start 05/02/20 at 09:00 Gabapentin (Neurontin) 100 mg TID PO Last administered on 05/14/20 08:22; Start 05/01/20 at 21:00 Acetaminophen/ Hydrocodone Bitart (Lortab 5/325) 1 tab PRN Q4HRS PRN PO MODERATE PAIN 4-6 Last administered on 05/14/20 08:23; Start 05/01/20 at 20:45 Albuterol/ Ipratropium (Duoneb) 3 ml Q4HRS W/A NEB ; Start 05/01/20 at 22:00; Stop 05/02/20 at 10:59; Status DC Levothyroxine Sodium (Synthroid) 50 mcg DAILY06 PO Last administered on 05/14/20 05:52; Start 05/02/20 at 06:00 Metoprolol Succinate (Toprol Xl) 25 mg DAILY PO Last administered on 05/05/20 08:01; Start 05/02/20 at 09:00; Stop 05/05/20 at 09:58; Status DC Montelukast Sodium (Singulair) 10 mg HS PO Last administered on 05/13/20 21:05; Start 05/01/20 at 21:00 Roflumilast (Daliresp) 500 mcg DAILY PO Last administered on 05/14/20 08:23; Start 05/02/20 at 09:00 Ropinirole HCl (Requip) 3 mg QHS PO Last administered on 05/13/20 21:05; Start 05/01/20 at 21:00 Sacubitril/ Valsartan (Entresto 49 Mg-51 Mg) 1 tab BID PO Last administered on 05/14/20 08:22; Start 05/01/20 at 21:00 Torsemide (Demadex) 20 mg DAILY PO Last administered on 05/03/20at 08:43; Start 05/02/20 at 09:00; Stop 05/04/20 at 09:55; Status DC Budesonide (Pulmicort) 0.5 mg RTBID NEB Last administered on 05/14/20at 07:36; Start 05/02/20 at 08:00 Cetirizine HCl (ZyrTEC) 10 mg DAILY PO Last administered on 05/14/20at 08:23; Start 05/02/20 at 09:00 Pantoprazole Sodium (Protonix) 40 mg DAILYAC PO Last administered on 05/14/20at 08:23; Start 05/02/20 at 07:30 Potassium Chloride (Klor-Con) 20 meq DAILYWBKFT PO Last administered on 05/14/20at 08:21; Start 05/02/20 at 08:00 Methylprednisolone Sodium Succinate (SOLU-Medrol 40MG VIAL) 60 mg Q6HRS IV Last administered on 05/09/20at 07:24; Start 05/02/20 at 05:00; Stop 05/09/20 at 11:38; Status DC Azithromycin 500 mg/Sodium Chloride 250 ml @ 250 mls/hr Q24H IV Last administered on 05/03/20at 11:59; Start 05/02/20 at 10:00; Stop 05/03/20 at 12:58; Status DC Albuterol/ Ipratropium (Combivent Respimat 20-100 Mcg) 1 puff Q4HRS W/A INH Last administered on 05/02/20at 17:39; Start 05/02/20 at 14:00; Stop 05/02/20 at 18:39; Status DC Albuterol/ Ipratropium (Duoneb) 3 ml Q4HRS NEB Last administered on 05/05/20at 00:13; Start 05/02/20 at 20:00; Stop 05/05/20 at 05:24; Status DC Fluticasone Propionate (Flonase) 2 spray DAILY NS Last administered on 05/14/20at 08:23; Start 05/03/20 at 12:00 Lactobacillus Rhamnosus (Culturelle) 1 cap BID PO ; Start 05/03/20 at 21:00; Status Cancel Azithromycin (Zithromax) 500 mg DAILY PO Last administered on 05/12/20 08:56; Start 05/04/20 at 09:00; Stop 05/12/20 at 12:36; Status DC Benzonatate (Tessalon Perle) 100 mg [id number] PO Last administered on 05/14/20 08 :22; Start 05/04/20 at 10:00 Guaifenesin (Robitussin Dm) 10 ml PRN Q6HRS PRN PO COUGH Last administered on 05/05/20 12:02; Start 05/04/20 at 10:00 Torsemide (Demadex) 40 mg DAILY PO Last administered on 05/04/20 10:21; Start 05/05/20 at 09:00; Stop 05/04/20 at 12:45; Status DC Torsemide (Demadex) 20 mg 1X ONCE PO ; Start 05/04/20 at 10:15; Stop 05/04/20 at 10:16; Status DC Torsemide (Demadex) 40 mg DAILY PO Last administered on 05/14/20 08:22; Start 05/05/20 at 09:00 Diphenhydramine HCl (Benadryl) 25 mg PRN Q6HRS PRN IVP ITCHING Last administered on 05/04/20 21:31; Start 05/04/20 at 21:30 Albuterol/ Ipratropium (Duoneb) 3 ml RTQID NEB Last administered on 05/05/20 06:59; Start 05/05/20 at 08:00; Stop 05/05/20 at 10:00; Status DC Albuterol/ Ipratropium (Duoneb) 3 ml Q4HRS NEB Last administered on 05/14/20at 11:32; Start 05/05/20 at 10:00 Lactobacillus Rhamnosus (Culturelle) 1 cap BID PO Last administered on 05/14/20 08:23; Start 05/05/20 at 21:00 Phenol (Chloraseptic) 1 spray PRN Q2HR PRN PO SORE THROAT Last administered on 05/07/20 08:38; Start 05/05/20 at 12:00 Insulin Human Lispro (HumaLOG) 0-7 UNITS TIDWMEALS SQ Last administered on 05/12/20 17:03; Start 05/05/20 at 12:30; Stop 05/12/20 at 19:23; Status DC Dextrose (Dextrose 50%-Water Syringe) 12.5 gm PRN Q15MIN PRN IV SEE COMMENTS; Start 05/05/20 at 12:00 Magnesium Sulfate 50 ml @ 25 mls/hr 1X ONCE IV Last administered on 05/07/20at 11:30; Start 05/07/20 at 11:00; Stop 05/07/20 at 12:59; Status DC Insulin Human Lispro (HumaLOG) 7 units 1X ONCE SQ Last administered on 05/07/20at 22:38; Start 05/07/20 at 22:30; Stop 05/07/20 at 22:33; Status DC Magnesium Sulfate 50 ml @ 25 mls/hr 1X ONCE IV Last administered on 05/08/20at 11:32; Start 05/08/20 at 11:30; Stop 05/08/20 at 13:29; Status DC Furosemide (Lasix) 40 mg 1X ONCE IVP Last administered on 05/08/20at 11:32; Start 05/08/20 at 11:45; Stop 05/08/20 at 11:46; Status DC Insulin Human Lispro (HumaLOG) 4 units 1X ONCE SQ Last administered on 05/08/20at 21:41; Start 05/08/20 at 21:30; Stop 05/08/20 at 21:31; Status DC Methylprednisolone Sodium Succinate (SOLU-Medrol 40MG VIAL) 80 mg Q6HRS IV Last administered on 05/10/20at 05:59; Start 05/09/20 at 12:00; Stop 05/10/20 at 07:32; Status DC Methylprednisolone Sodium Succinate (SOLU-Medrol 125MG VIAL) 80 mg Q8HRS IV Last administered on 05/14/20at 05:53; Start 05/10/20 at 14:00 Insulin Human Lispro (HumaLOG) 3 units 1X ONCE SQ Last administered on at 08:25; Start 05/11/20 at 08:00; Stop 05/11/20 at 08:01; Status DC Insulin Human Lispro (HumaLOG) 4 units HS ONCE SQ Last administered on 05/11/20at 23:02; Start 05/11/20 at 23:00; Stop 8/9/20 at 23:15; Status DC Insulin Human Lispro (HumaLOG) 4 units 1X ONCE SQ ; Start 05/11/20 at 23:30; Stop 05/11/20 at 23:31; Status DC Insulin Human Lispro (HumaLOG) 0-7 UNITS TIDWMEALHC SQ Last administered on 05/14/20at 12:01; Start 05/12/20 at 21:00 Magnesium Sulfate 50 ml @ 25 mls/hr 1X ONCE IV Last administered on 05/13/20at 12:24; Start 05/13/20 at 12:30; Stop 05/13/20 at 14:29; Status DC Insulin Glargine (Lantus Syringe) 15 unit DAILY08 SQ Last administered on 05/14/20at 09:50; Start 05/13/20 at 13:45; Stop 05/14/20 at 12:52; Status DC Guaifenesin (MUCINEX ER with DM) 1 tab BID PO ; Start 05/14/20 at 12:00 Insulin Glargine (Lantus Syringe) 20 unit BID SQ ; Start 05/14/20 at 21:00 Insulin Human Lispro (HumaLOG) 10 units TIDWMEALS SQ ; Start 05/14/20 at 17:00 Active Scripts Active Duoneb 0.5-3(2.5) Mg/3 Ml (Albuterol/Ipratropium) 3 Ml Ampul.neb 3 Ml NEB Q4HRS 14 Days Hydrocodone-Apap 5-325 (Hydrocodone Bit/Acetaminophen) 1 Tab Tablet 1 Tab PO PRN Q4HRS PRN Reported Allopurinol 100 Mg Tablet 1 Tab PO DAILY Trelegy Ellipta 100-62.5-25 (Fluticasone/Umeclidin/Vilanter) 1 Each Blst.w.dev 1 Each IH DAILY Prilosec Otc (Omeprazole Magnesium) 20 Mg Tablet.dr 40 Mg PO DAILY Entresto 49 mg-51 mg Tablet (Sacubitril/Valsartan) 1 Each Tablet 49-51 Mg PO BID K-Tab ER (Potassium Chloride) 20 Meq Tablet.er 20 Meq PO DAILY Montelukast Sodium Tablet (Montelukast Sodium) 10 Mg Tablet 10 Mg PO HS Levocetirizine Dihydrochloride 5 Mg Tablet 5 Mg PO DAILY Amitriptyline Hcl 25 Mg Tablet 25 Mg PO QHS Tylenol (Acetaminophen) 325 Mg Tablet 650 Mg PO PRN Q4HRS PRN Aspir 81 (Aspirin) 81 Mg Tablet.dr 1 Tab PO DAILY Metoprolol Succinate ( Xl ) (Metoprolol Succinate) 25 Mg Tab.er.24h 25 Mg PO DAILY Vitamin D3 (Cholecalciferol (Vitamin D3)) 1,000 Unit Tablet 1 Tab PO DAILY Torsemide 20 Mg Tablet 1 Tab PO DAILY Gabapentin (Gabapentin) 100 Mg Capsule 100 Mg PO TID Ferrous Sulfate 325 Mg Tablet 1 Tab PO DAILY Daliresp (Roflumilast) 500 Mcg Tablet 1 Tab PO DAILY Atorvastatin Calcium 20 Mg Tablet 20 Mg PO HS Requip (Ropinirole Hcl) 1 Mg Tablet 3 Tab PO QHS Proair Hfa Inhaler (Albuterol Sulfate) 8.5 Gm Hfa.aer.ad 1 Puff INH PRN Q6HRS PRN Levothyroxine Sodium 50 Mcg Tablet 1 Tab PO DAILY Vitals/I & O Vital Sign - Last 24 Hours 05/13/20 05/13/20 05/13/20 05/13/20 15:30 16:07 19:00 19:29 Temp 98.0 97.9 98.0 97.9 Pulse 98 111 Resp 20 18 B/P (MAP) 102/39 (60) 107/44 (65) Pulse Ox 99 96 96 O2 Delivery Nasal Cannula Nasal Cannula Nasal Cannula Nasal Cannula O2 Flow Rate 2.0 2.0 2.0 2.0 05/13/20 05/13/20 05/13/20 05/14/20 20:00 21:06 23:00 00:05 Temp 97.9 97.9 Pulse 111 103 Resp 18 B/P (MAP) 107/44 109/61 (77) Pulse Ox 92 O2 Delivery Nasal Cannula Nasal Cannula Nasal Cannula O2 Flow Rate 2.0 2.0 2.0 05/14/20 05/14/20 05/14/20 05/14/20 03:00 07:00 07:30 07:35 Temp 98.0 98.1 98.0 98.1 Pulse 87 85 Resp 18 16 B/P (MAP) 98/49 (65) 103/44 (63) Pulse Ox 97 96 99 O2 Delivery Nasal Cannula Nasal Cannula Nasal Cannula Nasal Cannula O2 Flow Rate 2.0 2.0 3.0 3.0 05/14/20 05/14/20 05/14/20 05/14/20 08:22 08:23 09:47 11:00 Temp 98.6 98.6 Pulse 85 95 Resp 14 B/P (MAP) 103/44 98/40 (59) Pulse Ox 96 O2 Delivery Nasal Cannula Nasal Cannula Nasal Cannula O2 Flow Rate 3.0 3.0 2.0 05/14/20 11:26 Pulse Ox 97 O2 Delivery Nasal Cannula O2 Flow Rate 3.0 Intake and Output 05/13/20 05/13/20 05/14/20 15:00 23:00 07:00 Intake Total 400 ml 900 ml 800 ml Balance 400 ml 900 ml 800 ml Justicifation of Admission Dx: Justifications for Admission: Justification of Admission Dx: Yes DEMETRA BABIN MD May 14, 2020 13:38
[2020-05-14] MEDS: guaiFENesin DM 600/30MG 1 TAB TAB.ER.12H PO SCH ×2 (14:12→21:33)
[2020-05-14 15:13] VITALS: BP 98/50
[2020-05-14 19:00] VITALS: BP 102/61
[2020-05-14] MEDS: MONTELUKAST SODIUM 10 MG TABLET. PO SCH (21:27)
[2020-05-14] MEDS: rOPINIRole 1 MG TABLET. PO SCH (21:27)
[2020-05-14] MEDS: AMITRIPTYLINE HCL 25 MG TABLET. PO SCH (21:27)
[2020-05-14] MEDS: ATORVASTATIN CALCIUM 20 MG TABLET PO SCH (21:27)
[2020-05-14 23:00] VITALS: BP 98/44
[2020-05-15 03:00] VITALS: BP 105/52
[2020-05-15] MEDS: PANTOPRAZOLE 40 MG TABLET.DR. PO SCH (06:03)
[2020-05-15] MEDS: methylPREDNISolone SOD SUCC PF 125 MG/2 ML VIAL. IV SCH ×3 (06:03→21:58)
[2020-05-15] MEDS: LEVOTHYROXINE 50 MCG TABLET PO SCH (06:03)
[2020-05-15 07:00] VITALS: BP_SYST 104; BP_SYST 43; BP_DIAS 52
[2020-05-15] MEDS: IPRATRPIUM/ALBUTEROL 0.5/2.5MG 3 ML NEBU. NEB SCH ×6 (07:09→20:19)
[2020-05-15] MEDS: BUDESONIDE 0.5 MG/2 ML NEBU. NEB SCH ×2 (07:20→20:19)
[2020-05-15] MEDS: INSULIN LISPRO 300 UNITS/3 ML VIAL. SQ SCH ×7 (07:55→21:13)
[2020-05-15] MEDS: guaiFENesin DM 600/30MG 1 TAB TAB.ER.12H PO SCH ×2 (08:38→21:00)
[2020-05-15] MEDS: TORSEMIDE 20 MG TABLET. PO SCH (08:38)
[2020-05-15] MEDS: ASPIRIN ENTERIC COATED 81 MG TABLET.DR. PO SCH (08:38)
[2020-05-15] MEDS: POTASSIUM CHLORIDE 20 MEQ TABLET.ER. PO SCH (08:38)
[2020-05-15] MEDS: CETIRIZINE HCL 10 MG TABLET. PO SCH (08:38)
[2020-05-15] MEDS: FLUTICASONE 50MCG/NASAL SPRAY 16GM BOTTLE. NS SCH (08:38)
[2020-05-15] MEDS: BENZONATATE 100 MG CAPSULE. PO SCH ×3 (08:38→21:00)
[2020-05-15] MEDS: CHOLECALCIFEROL (VITAMIN D3) 1,000 UNIT TABLET PO SCH (08:38)
[2020-05-15] MEDS: GABAPENTIN 100 MG CAPSULE. PO SCH ×3 (08:38→21:02)
[2020-05-15] MEDS: LACTOBACILLUS RHAMNOSUS GG 1 CAPSULE. PO SCH ×2 (08:39→21:00)
[2020-05-15] MEDS: SACUBITRIL/VALSARTAN 49/51MG TABLET. PO SCH ×2 (08:39→21:02)
[2020-05-15] MEDS: ALLOPURINOL 100 MG TABLET. PO SCH (08:39)
[2020-05-15] MEDS: FERROUS SULFATE 325 MG TABLET. PO SCH (08:39)
[2020-05-15] MEDS: ROFLUMILAST 500 MCG TABLET. PO SCH (08:39)
[2020-05-15] MEDS: INSULIN GLARGINE SYRINGE. SQ SCH ×2 (08:44→21:14)
--- NOTE | 2020-05-15 09:52 | NUR ---
SW following. Discussed with RN and Dr. Parra - pt is slow to recover. Plan is [facility] at discharge.
[2020-05-15 11:00] VITALS: BP 106/46
--- NOTE | 2020-05-15 11:00 | PDOC ---
PULMONARY PROGRESS NOTES DATE: 05/15/20 TIME: 10:59 Subjective Feeling better today, remains on 3 liters N/C improved cough and improved wheezing Vitals Vital Signs Date Time Temp Pulse Resp B/P (MAP) Pulse Ox O2 Delivery O2 Flow Rate FiO2 05/15/20 08:39 94 104/52 05/15/20 07:20 Nasal Cannula 2.0 05/15/20 07:10 96 05/15/20 07:00 98.3 19 98.3 ROS: No Nausea, No Chest Pain General: Alert, Oriented X4, No acute distress HEENT: Other (nc at per ) Lungs: Wheezing (Faint ) Cardiovascular: S1, S2 Abdomen: Soft, Non-tender Neuro Exam: Alert Extremities: No Edema Skin: Warm Labs Laboratory Tests Test 05/13/20 11:35 05/13/20 16:39 05/13/20 21:01 05/13/20 22:09 Glucose (Fingerstick) 339 mg/dL (70-99) 62 mg/dL (70-99) 412 mg/dL (70-99) 499 mg/dL (70-99) Test 05/13/20 22:19 05/13/20 23:03 05/14/20 07:11 05/14/20 11:06 Glucose (Fingerstick) 466 mg/dL (70-99) 412 mg/dL (70-99) 171 mg/dL (70-99) 335 mg/dL (70-99) Test 05/14/20 16:37 05/14/20 20:40 05/15/20 07:26 Glucose (Fingerstick) 191 mg/dL (70-99) 275 mg/dL (70-99) 145 mg/dL (70-99) Laboratory Tests Test 05/14/20 11:06 05/14/20 16:37 05/14/20 20:40 05/15/20 07:26 Glucose (Fingerstick) 335 mg/dL (70-99) 191 mg/dL (70-99) 275 mg/dL (70-99) 145 mg/dL (70-99) Medications Active Scripts Medications Dose Route/Sig Max Daily Dose Days Date Category Allopurinol 100 Mg Tablet 1 Tab PO DAILY 05/01/20 Reported Trelegy Ellipta 100-62.5-25 (Fluticasone/Umeclidin/Vilanter) 1 Each Blst.w.dev 1 Each IH DAILY 03/17/20 Reported Prilosec Otc (Omeprazole Magnesium) 20 Mg Tablet.dr 40 Mg PO DAILY 03/17/20 Reported Duoneb 0.5-3(2.5) Mg/3 Ml (Albuterol/Ipratropium) 3 Ml Ampul.neb 3 Ml NEB Q4HRS 14 10/22/19 Rx Hydrocodone-Apap 5-325 (Hydrocodone Bit/Acetaminophen) 1 Tab Tablet 1 Tab PO PRN Q4HRS PRN 10/20/19 Rx Entresto 49 mg-51 mg Tablet (Sacubitril/Valsartan) 1 Each Tablet 49-51 Mg PO BID 07/30/19 Reported K-Tab ER (Potassium Chloride) 20 Meq Tablet.er 20 Meq PO DAILY 07/30/19 Reported Montelukast Sodium Tablet (Montelukast Sodium) 10 Mg Tablet 10 Mg PO HS 07/29/19 Reported Levocetirizine Dihydrochloride 5 Mg Tablet 5 Mg PO DAILY 07/29/19 Reported Amitriptyline Hcl 25 Mg Tablet 25 Mg PO QHS 07/29/19 Reported Tylenol (Acetaminophen) 325 Mg Tablet 650 Mg PO PRN Q4HRS PRN 07/29/19 Reported Aspir 81 (Aspirin) 81 Mg Tablet.dr 1 Tab PO DAILY 01/03/18 Reported Metoprolol Succinate ( Xl ) (Metoprolol Succinate) 25 Mg Tab.er.24h 25 Mg PO DAILY 01/03/18 Reported Vitamin D3 (Cholecalciferol (Vitamin D3)) 1,000 Unit Tablet 1 Tab PO DAILY 01/02/18 Reported Torsemide 20 Mg Tablet 1 Tab PO DAILY 01/02/18 Reported Gabapentin (Gabapentin) 100 Mg Capsule 100 Mg PO TID 01/02/18 Reported Ferrous Sulfate 325 Mg Tablet 1 Tab PO DAILY 09/23/17 Reported Daliresp (Roflumilast) 500 Mcg Tablet 1 Tab PO DAILY 09/23/17 Reported Atorvastatin Calcium 20 Mg Tablet 20 Mg PO HS 09/23/17 Reported Requip (Ropinirole Hcl) 1 Mg Tablet 3 Tab PO QHS 09/23/17 Reported Proair Hfa Inhaler (Albuterol Sulfate) 8.5 Gm Hfa.aer.ad 1 Puff INH PRN Q6HRS PRN 09/23/17 Reported Levothyroxine Sodium 50 Mcg Tablet 1 Tab PO DAILY 09/23/[address] No pulmonary mass or consolidation. Impression . IMPRESSION: 1. Dyspnea secondary to acute exacerbation of chronic obstructive pulmonary disease with persistent wheezing.no CHF. Pt had left heart cath 03/22 and had LVEDP of 27 2. No signs of pneumonia. 3. Chronic compensated hypercapnia. 4. allergic rhinitis Plan . RECOMMENDATIONS: 1. wheezing, mostly upper airway wheezing . holding metoprolol. s/p Mg So4 X 2days, ct reviewed, No pulmonary mass or consolidation. no CHF. - improved today 2. reduce IV steroids today 3. continue plumicort 4. off abx 5. COVID test is negative, 6. BD q 4hrs cont ics, cont flonase, cont. mucinex 7. Not ready for dc, would like to go to inpatient rehab on D/C social work to assist with D/C planning 8. on protonix for PPI Discussed with RN, and Patient IMELDA EASTMAN MD May 15, 2020 11:00
--- NOTE | 2020-05-15 13:14 | PDOC ---
PROGRESS NOTES Date of Service: DATE: 05/15/20 TIME: 13:13 Chief Complaint Chief Complaint acute on chronic Respiratory failure, suspect chronic obstructive pulmonary disease exacerbation Probable concomitant pneumonia, GRAM NEG COPD CAD CHF Diabetes-Type II High Cholesterol Hypertension Hypothyroid tapering the IV steroids History of Present Illness History of Present Illness 05/15, Dr. Tejeda tapering the steroids, willneed skilled, snu in a few days if able to tolerate, still very weak 05/14. wheezing, weak, a little better, no event, eating OK 05/13. IV mag ordered some ability to ambulate, still weak, wheezy, right foot hurting, poss gout, 05/12, cough, wheeze, dyspnea, today, not much worse or hypoxic 05/11/20. cough PERSISTENT she reports that her torsemide dose had been increased by Dr. Driscoll Continue IV Solu-Medrol 60 q 6hrs. has MILD-MOD wheezing hold metoprolol. Empiric antibiotics D/W RN REPEAT ABG reviewed D/W 05/03/20. cont current, still weak, wheezing, plan OOB 05/02/20 Patient seen and examined - covid was negative Patient is in moderate distress with audible wheezing Discussed with RN Chart reviewed Vitals Vitals Vital Signs Date Time Temp Pulse Resp B/P (MAP) Pulse Ox O2 Delivery O2 Flow Rate FiO2 05/15/20 11:15 96 Nasal Cannula 3.0 05/15/20 11:00 98.2 107 19 106/46 (66) 98.2 Physical Exam General: Alert, Oriented X3, Cooperative, No acute distress Heart: Regular rate, Normal S1 Lungs: Wheezing (Faint ), Other (rales) Abdomen: Soft, No tenderness Extremities: No clubbing, No cyanosis, No edema Skin: No rashes, No significant lesion Labs LABS Laboratory Tests Test 05/14/20 16:37 05/14/20 20:40 05/15/20 07:26 Glucose (Fingerstick) 191 mg/dL (70-99) 275 mg/dL (70-99) 145 mg/dL (70-99) Review of Systems Review of Systems no n/v/d Assessment and Plan Assessmemt and Plan Problems Medical Problems: (1) COPD exacerbation Status: Acute Comment Review of Relevant I have reviewed the following items jon (where applicable) has been applied. Labs Laboratory Tests Test 05/13/20 16:39 05/13/20 21:01 05/13/20 22:09 05/13/20 22:19 Glucose (Fingerstick) 62 mg/dL (70-99) 412 mg/dL (70-99) 499 mg/dL (70-99) 466 mg/dL (70-99) Test 05/13/20 23:03 05/14/20 07:11 05/14/20 11:06 05/14/20 16:37 Glucose (Fingerstick) 412 mg/dL (70-99) 171 mg/dL (70-99) 335 mg/dL (70-99) 191 mg/dL (70-99) Test 05/14/20 20:40 05/15/20 07:26 Glucose (Fingerstick) 275 mg/dL (70-99) 145 mg/dL (70-99) Laboratory Tests Test 05/14/20 16:37 05/14/20 20:40 05/15/20 07:26 Glucose (Fingerstick) 191 mg/dL (70-99) 275 mg/dL (70-99) 145 mg/dL (70-99) Medications Current Medications Methylprednisolone Sodium Succinate (SOLU-Medrol 125MG VIAL) 125 mg 1X ONCE IV Last administered on 05/01/20at 14:10; Start 05/01/20 at 13:30; Stop 05/01/20 at 13:31; Status DC Albuterol Sulfate (Ventolin Neb Soln) 10 mg 1X ONCE CONT NEB Last administered on 05/01/20at 13:47; Start 05/01/20 at 13:30; Stop 05/01/20 at 13:31; Status DC Fentanyl Citrate (Fentanyl 2ml Vial) 50 mcg 1X ONCE IVP Last administered on 05/01/20at 14:10; Start 05/01/20 at 13:45; Stop 05/01/20 at 13:51; Status DC Sodium Chloride 1,000 ml @ 1,000 mls/hr 1X ONCE IV Last administered on 05/01/20at 14:12; Start 05/01/20 at 14:15; Stop 05/01/20 at 15:14; Status DC Azithromycin 250 ml @ 250 mls/hr 1X ONCE IV Last administered on 05/01/20at 14:26; Start 05/01/20 at 14:15; Stop 05/01/20 at 15:14; Status DC Ondansetron HCl (Zofran) 4 mg PRN Q8HRS PRN IV NAUSEA/VOMITING; Start 05/01/20 at 14:45; Stop 05/02/20 at 14:44; Status DC Fentanyl Citrate (Fentanyl 2ml Vial) 50 mcg PRN Q1HR PRN IV PAIN Last administered on 05/01/20 16:12; Start 05/01/20 at 14:45; Stop 05/02/20 at 14:44; Status DC Acetaminophen (Tylenol) 650 mg PRN Q4HRS PRN PO MILD PAIN 1-3 Last administered on 05/04/20 20:45; Start 05/01/20 at 20:45 Albuterol Sulfate (Ventolin Neb Soln) 2.5 mg PRN Q6HRS PRN INH SHORTNESS OF BREATH; Start 05/01/20 at 20:45 Allopurinol (Zyloprim) 100 mg DAILY PO Last administered on 05/15/20 08:39; Start 05/02/20 at 09:00 Amitriptyline HCl (Elavil) 25 mg QHS PO Last administered on 05/14/20 21:27; Start 05/01/20 at 21:00 Aspirin (Ecotrin) 81 mg DAILY PO Last administered on 05/15/20 08:38; Start 05/02/20 at 09:00 Atorvastatin Calcium (Lipitor) 20 mg HS PO Last administered on 05/14/20 21:27; Start 05/01/20 at 21:00 Vitamin D (Vitamin D3) 1,000 unit DAILY PO Last administered on 05/15/20 08:38; Start 05/02/20 at 09:00 Ferrous Sulfate (Feosol) 325 mg DAILY PO Last administered on 05/15/20 08:39; Start 05/02/20 at 09:00 Gabapentin (Neurontin) 100 mg TID PO Last administered on 05/15/20 08:38; Start 05/01/20 at 21:00 Acetaminophen/ Hydrocodone Bitart (Lortab 5/325) 1 tab PRN Q4HRS PRN PO MODERATE PAIN 4-6 Last administered on 05/14/20 08:23; Start 05/01/20 at 20:45 Albuterol/ Ipratropium (Duoneb) 3 ml Q4HRS W/A NEB ; Start 05/01/20 at 22:00; Stop 05/02/20 at 10:59; Status DC Levothyroxine Sodium (Synthroid) 50 mcg DAILY06 PO Last administered on 05/15/20 06:03; Start 05/02/20 at 06:00 Metoprolol Succinate (Toprol Xl) 25 mg DAILY PO Last administered on 05/05/20 08:01; Start 05/02/20 at 09:00; Stop 05/05/20 at 09:58; Status DC Montelukast Sodium (Singulair) 10 mg HS PO Last administered on 05/14/20 21:27; Start 05/01/20 at 21:00 Roflumilast (Daliresp) 500 mcg DAILY PO Last administered on 05/15/20 08:39; Start 05/02/20 at 09:00 Ropinirole HCl (Requip) 3 mg QHS PO Last administered on 05/14/20 21:27; Start 05/01/20 at 21:00 Sacubitril/ Valsartan (Entresto 49 Mg-51 Mg) 1 tab BID PO Last administered on 05/15/20 08:39; Start 05/01/20 at 21:00 Torsemide (Demadex) 20 mg DAILY PO Last administered on 05/03/20 08:43; Start 05/02/20 at 09:00; Stop 05/04/20 at 09:55; Status DC Budesonide (Pulmicort) 0.5 mg RTBID NEB Last administered on 05/15/20 07:20; Start 05/02/20 at 08:00 Cetirizine HCl (ZyrTEC) 10 mg DAILY PO Last administered on 05/15/20 08:38; Start 05/02/20 at 09:00 Pantoprazole Sodium (Protonix) 40 mg DAILYAC PO Last administered on 05/15/20 06:03; Start 05/02/20 at 07:30 Potassium Chloride (Klor-Con) 20 meq [id number] PO Last administered on 08:38; Start 05/02/20 at 08:00 Methylprednisolone Sodium Succinate (SOLU-Medrol 40MG VIAL) 60 mg Q6HRS IV Last administered on 05/09/20at 07:24; Start 05/02/20 at 05:00; Stop 05/09/20 at 11:38; Status DC Azithromycin 500 mg/Sodium Chloride 250 ml @ 250 mls/hr Q24H IV Last administered on 05/03/20at 11:59; Start 05/02/20 at 10:00; Stop 05/03/20 at 12:58; Status DC Albuterol/ Ipratropium (Combivent Respimat 20-100 Mcg) 1 puff Q4HRS W/A INH Last administered on 05/02/20at 17:39; Start 05/02/20 at 14:00; Stop 05/02/20 at 18:39; Status DC Albuterol/ Ipratropium (Duoneb) 3 ml Q4HRS NEB Last administered on 05/05/20at 00:13; Start 05/02/20 at 20:00; Stop 05/05/20 at 05:24; Status DC Fluticasone Propionate (Flonase) 2 spray DAILY NS Last administered on 0at 08:38; Start 05/03/20 at 12:00 Lactobacillus Rhamnosus (Culturelle) 1 cap BID PO ; Start 05/03/20 at 21:00; Status Cancel Azithromycin (Zithromax) 500 mg DAILY PO Last administered on 05/12/20at 08:56; Start 05/04/20 at 09:00; Stop 05/12/20 at 12:36; Status DC Benzonatate (Tessalon Perle) 100 mg [id number] PO Last administered on 05/15/20at 08:38; Start 05/04/20 at 10:00 Guaifenesin (Robitussin Dm) 10 ml PRN Q6HRS PRN PO COUGH Last administered on 05/05/20at 12:02; Start 05/04/20 at 10:00 Torsemide (Demadex) 40 mg DAILY PO Last administered on 05/04/20at 10:21; Start 05/05/20 at 09:00; Stop 05/04/20 at 12:45; Status DC Torsemide (Demadex) 20 mg 1X ONCE PO ; Start 05/04/20 at 10:15; Stop 05/04/20 at 10:16; Status DC Torsemide (Demadex) 40 mg DAILY PO Last administered on 05/15/20 08:38; Start 05/05/20 at 09:00 Diphenhydramine HCl (Benadryl) 25 mg PRN Q6HRS PRN IVP ITCHING Last administere d on 05/04/20 21:31; Start 05/04/20 at 21:30 Albuterol/ Ipratropium (Duoneb) 3 ml RTQID NEB Last administered on 05/05/20at 06:59; Start 05/05/20 at 08:00; Stop 05/05/20 at 10:00; Status DC Albuterol/ Ipratropium (Duoneb) 3 ml Q4HRS NEB Last administered on 05/15/20at 11:14; Start 05/05/20 at 10:00 Lactobacillus Rhamnosus (Culturelle) 1 cap BID PO Last administered on 05/15/20at 08:39; Start 05/05/20 at 21:00 Phenol (Chloraseptic) 1 spray PRN Q2HR PRN PO SORE THROAT Last administered on 05/07/20at 08:38; Start 05/05/20 at 12:00 Insulin Human Lispro (HumaLOG) 0-7 UNITS TIDWMEALS SQ Last administered on 05/12/20at 17:03; Start 05/05/20 at 12:30; Stop 05/12/20 at 19:23; Status DC Dextrose (Dextrose 50%-Water Syringe) 12.5 gm PRN Q15MIN PRN IV SEE COMMENTS; Start 05/05/20 at 12:00 Magnesium Sulfate 50 ml @ 25 mls/hr 1X ONCE IV Last administered on 05/07/20at 11:30; Start 05/07/20 at 11:00; Stop 05/07/20 at 12:59; Status DC Insulin Human Lispro (HumaLOG) 7 units 1X ONCE SQ Last administered on 05/07/20 22:38; Start 05/07/20 at 22:30; Stop 05/07/20 at 22:33; Status DC Magnesium Sulfate 50 ml @ 25 mls/hr 1X ONCE IV Last administered on 05/08/20at 1 1:32; Start 05/08/20 at 11:30; Stop 05/08/20 at 13:29; Status DC Furosemide (Lasix) 40 mg 1X ONCE IVP Last administered on 05/08/20at 11:32; Start 05/08/20 at 11:45; Stop 05/08/20 at 11:46; Status DC Insulin Human Lispro (HumaLOG) 4 units 1X ONCE SQ Last administered on 05/08/20at 21:41; Start 05/08/20 at 21:30; Stop 05/08/20 at 21:31; Status DC Methylprednisolone Sodium Succinate (SOLU-Medrol 40MG VIAL) 80 mg Q6HRS IV Last administered on 05/10/20at 05:59; Start 05/09/20 at 12:00; Stop 05/10/20 at 07:32; Status DC Methylprednisolone Sodium Succinate (SOLU-Medrol 125MG VIAL) 80 mg Q8HRS IV Last administered on 05/15/20at 06:03; Start 05/10/20 at 14:00; Stop 05/15/20 at 10:58; Status DC Insulin Human Lispro (HumaLOG) 3 units 1X ONCE SQ Last administered on 0at 08:25; Start 05/11/20 at 08:00; Stop 05/11/20 at 08:01; Status DC Insulin Human Lispro (HumaLOG) 4 units HS ONCE SQ Last administered on 05/11/20at 23:02; Start 05/11/20 at 23:00; Stop 05/11/20 at 23:15; Status DC Insulin Human Lispro (HumaLOG) 4 units 1X ONCE SQ ; Start 05/11/20 at 23:30; Stop 05/11/20 at 23:31; Status DC Insulin Human Lispro (HumaLOG) 0-7 UNITS TIDWMEALHC SQ Last administered on 05/15/20at 12:30; Start 05/12/20 at 21:00 Magnesium Sulfate 50 ml @ 25 mls/hr 1X ONCE IV Last administered on 05/13/20at 12:24; Start 05/13/20 at 12:30; Stop 05/13/20 at 14:29; Status DC Insulin Glargine (Lantus Syringe) 15 unit DAILY08 SQ Last administered on 05/14/20at 09:50; Start 05/13/20 at 13:45; Stop 05/14/20 at 12:52; Status DC Guaifenesin (MUCINEX ER with DM) 1 tab BID PO Last administered on 05/15/20at 08:38; Start 05/14/20 at 12:00 Insulin Glargine (Lantus Syringe) 20 unit BID SQ Last administered on 05/15/20at 08:44; Start 05/14/20 at 21:00 Insulin Human Lispro (HumaLOG) 10 units TIDWMEALS SQ Last administered on 05/15/20at 12:31; Start 05/14/20 at 17:00 Methylprednisolone Sodium Succinate (SOLU-Medrol 125MG VIAL) 60 mg Q8HRS IV Last administered on 05/15/20at 12:26; Start 05/15/20 at 11:30 Active Scripts Active Duoneb 0.5-3(2.5) Mg/3 Ml (Albuterol/Ipratropium) 3 Ml Ampul.neb 3 Ml NEB Q4HRS 14 Days Hydrocodone-Apap 5-325 (Hydrocodone Bit/Acetaminophen) 1 Tab Tablet 1 Tab PO PRN Q4HRS PRN Reported Allopurinol 100 Mg Tablet 1 Tab PO DAILY Trelegy Ellipta 100-62.5-25 (Fluticasone/Umeclidin/Vilanter) 1 Each Blst.w.dev 1 Each IH DAILY Prilosec Otc (Omeprazole Magnesium) 20 Mg Tablet.dr 40 Mg PO DAILY Entresto 49 mg-51 mg Tablet (Sacubitril/Valsartan) 1 Each Tablet 49-51 Mg PO BID K-Tab ER (Potassium Chloride) 20 Meq Tablet.er 20 Meq PO DAILY Montelukast Sodium Tablet (Montelukast Sodium) 10 Mg Tablet 10 Mg PO HS Levocetirizine Dihydrochloride 5 Mg Tablet 5 Mg PO DAILY Amitriptyline Hcl 25 Mg Tablet 25 Mg PO QHS Tylenol (Acetaminophen) 325 Mg Tablet 650 Mg PO PRN Q4HRS PRN Aspir 81 (Aspirin) 81 Mg Tablet.dr 1 Tab PO DAILY Metoprolol Succinate ( Xl ) (Metoprolol Succinate) 25 Mg Tab.er.24h 25 Mg PO DAILY Vitamin D3 (Cholecalciferol (Vitamin D3)) 1,000 Unit Tablet 1 Tab PO DAILY Torsemide 20 Mg Tablet 1 Tab PO DAILY Gabapentin (Gabapentin) 100 Mg Capsule 100 Mg PO TID Ferrous Sulfate 325 Mg Tablet 1 Tab PO DAILY Daliresp (Roflumilast) 500 Mcg Tablet 1 Tab PO DAILY Atorvastatin Calcium 20 Mg Tablet 20 Mg PO HS Requip (Ropinirole Hcl) 1 Mg Tablet 3 Tab PO QHS Proair Hfa Inhaler (Albuterol Sulfate) 8.5 Gm Hfa.aer.ad 1 Puff INH PRN Q6HRS PRN Levothyroxine Sodium 50 Mcg Tablet 1 Tab PO DAILY Vitals/I & O Vital Sign - Last 24 Hours 05/14/20 05/14/20 05/14/20 05/14/20 15:13 16:35 19:00 20:00 Temp 98.3 98.2 98.3 98.2 Pulse 100 109 Resp 18 18 B/P (MAP) 98/50 (66) 102/61 (75) Pulse Ox 99 99 96 O2 Delivery Nasal Cannula Nasal Cannula Nasal Cannula Nasal Cannula O2 Flow Rate 2.0 3.0 2.0 3.0 05/14/20 05/14/20 05/14/20 05/14/20 20:29 20:30 21:27 23:00 Temp 98.3 98.3 Pulse 109 94 Resp 19 B/P (MAP) 102/61 98/44 (62) Pulse Ox 99 99 96 O2 Delivery Nasal Cannula Nasal Cannula Nasal Cannula O2 Flow Rate 3.0 3.0 2.0 05/15/20 05/15/20 05/15/20 05/15/20 03:00 07:00 07:10 07:20 Temp 98.2 98.3 98.2 98.3 Pulse 88 94 Resp 19 19 B/P (MAP) 105/52 (69) 104/52 (69) Pulse Ox 96 97 96 O2 Delivery Nasal Cannula Nasal Cannula Nasal Cannula Nasal Cannula O2 Flow Rate 2.0 2.0 2.0 2.0 05/15/20 05/15/20 05/15/20 08:39 11:00 11:15 Temp 98.2 98.2 Pulse 94 107 Resp 19 B/P (MAP) 104/52 106/46 (66) Pulse Ox 97 96 O2 Delivery Nasal Cannula Nasal Cannula O2 Flow Rate 2.0 3.0 Intake and Output 05/14/20 05/14/20 05/15/20 14:59 22:59 06:59 Intake Total 320 ml 520 ml 550 ml Balance 320 ml 520 ml 550 ml Justicifation of Admission Dx: Justifications for Admission: Justification of Admission Dx: Yes DEMETRA BABIN MD May 15, 2020 13:14
[2020-05-15 15:00] VITALS: BP 92/37
[2020-05-15 19:00] VITALS: BP 104/45
[2020-05-15] MEDS: AMITRIPTYLINE HCL 25 MG TABLET. PO SCH (21:00)
[2020-05-15] MEDS: ATORVASTATIN CALCIUM 20 MG TABLET PO SCH (21:00)
[2020-05-15] MEDS: MONTELUKAST SODIUM 10 MG TABLET. PO SCH (21:01)
[2020-05-15] MEDS: rOPINIRole 1 MG TABLET. PO SCH (21:01)
[2020-05-15 23:00] VITALS: BP 95/42
[2020-05-16] MEDS: IPRATRPIUM/ALBUTEROL 0.5/2.5MG 3 ML NEBU. NEB SCH ×3 (00:16→07:55)
[2020-05-16 03:00] VITALS: BP 101/57
[2020-05-16] MEDS: LEVOTHYROXINE 50 MCG TABLET PO SCH (05:48)
[2020-05-16] MEDS: methylPREDNISolone SOD SUCC PF 125 MG/2 ML VIAL. IV SCH (05:49)
[2020-05-16 07:15] VITALS: BP 113/54
[2020-05-16] MEDS: BUDESONIDE 0.5 MG/2 ML NEBU. NEB SCH (07:55)
[2020-05-16] MEDS: INSULIN LISPRO 300 UNITS/3 ML VIAL. SQ SCH ×2 (08:00→08:56)
[2020-05-16] MEDS: ROFLUMILAST 500 MCG TABLET. PO SCH (08:53)
[2020-05-16] MEDS: BENZONATATE 100 MG CAPSULE. PO SCH (08:53)
[2020-05-16] MEDS: POTASSIUM CHLORIDE 20 MEQ TABLET.ER. PO SCH (08:53)
[2020-05-16] MEDS: FERROUS SULFATE 325 MG TABLET. PO SCH (08:53)
[2020-05-16] MEDS: TORSEMIDE 20 MG TABLET. PO SCH (08:53)
[2020-05-16] MEDS: ALLOPURINOL 100 MG TABLET. PO SCH (08:53)
[2020-05-16] MEDS: CETIRIZINE HCL 10 MG TABLET. PO SCH (08:53)
[2020-05-16] MEDS: PANTOPRAZOLE 40 MG TABLET.DR. PO SCH (08:53)
[2020-05-16] MEDS: guaiFENesin DM 600/30MG 1 TAB TAB.ER.12H PO SCH (08:53)
[2020-05-16] MEDS: SACUBITRIL/VALSARTAN 49/51MG TABLET. PO SCH (08:53)
[2020-05-16] MEDS: GABAPENTIN 100 MG CAPSULE. PO SCH (08:53)
[2020-05-16] MEDS: LACTOBACILLUS RHAMNOSUS GG 1 CAPSULE. PO SCH (08:53)
[2020-05-16] MEDS: ASPIRIN ENTERIC COATED 81 MG TABLET.DR. PO SCH (08:53)
[2020-05-16] MEDS: CHOLECALCIFEROL (VITAMIN D3) 1,000 UNIT TABLET PO SCH (08:53)
[2020-05-16] MEDS: INSULIN GLARGINE SYRINGE. SQ SCH (09:00)
[2020-05-16] MEDS: FLUTICASONE 50MCG/NASAL SPRAY 16GM BOTTLE. NS SCH (09:47)
--- NOTE | 2020-05-16 09:50 | PDOC ---
PULMONARY PROGRESS NOTES DATE: 05/16/20 TIME: 09:49 Subjective Feeling better today, remains on 3 liters N/C improved cough and improved wheezing Vitals Vital Signs Date Time Temp Pulse Resp B/P (MAP) Pulse Ox O2 Delivery O2 Flow Rate FiO2 05/16/20 08:53 86 113/54 05/16/20 07:55 99 Nasal Cannula 3.0 05/16/20 07:15 97.9 18 97.9 ROS: No Nausea, No Chest Pain General: Alert, Oriented X4, No acute distress HEENT: Other (nc at perrl ) Lungs: Wheezing (much improved), Other (rales) Cardiovascular: S1, S2 Abdomen: Soft, Non-tender Neuro Exam: Alert Extremities: No Edema Skin: Warm Labs Laboratory Tests Test 05/14/20 11:06 05/14/20 16:37 05/14/20 20:40 05/15/20 07:26 Glucose (Fingerstick) 335 mg/dL (70-99) 191 mg/dL (70-99) 275 mg/dL (70-99) 145 mg/dL (70-99) Test 05/15/20 11:58 05/15/20 17:06 05/15/20 20:10 05/16/20 07:11 Glucose (Fingerstick) 160 mg/dL (70-99) 222 mg/dL (70-99) 301 mg/dL (70-99) 113 mg/dL (70-99) Laboratory Tests Test 05/15/20 11:58 05/15/20 17:06 05/15/20 20:10 05/16/20 07:11 Glucose (Fingerstick) 160 mg/dL (70-99) 222 mg/dL (70-99) 301 mg/dL (70-99) 113 mg/dL (70-99) Medications Active Scripts Medications Dose Route/Sig Max Daily Dose Days Date Category Allopurinol 100 Mg Tablet 1 Tab PO DAILY 05/01/20 Reported Trelegy Ellipta 100-62.5-25 (Fluticasone/Umeclidin/Vilanter) 1 Each Blst.w.dev 1 Each IH DAILY 03/17/20 Reported Prilosec Otc (Omeprazole Magnesium) 20 Mg Tablet.dr 40 Mg PO DAILY 03/17/20 Reported Duoneb 0.5-3(2.5) Mg/3 Ml (Albuterol/Ipratropium) 3 Ml Ampul.neb 3 Ml NEB Q4HRS 14 10/22/19 Rx Hydrocodone-Apap 5-325 (Hydrocodone Bit/Acetaminophen) 1 Tab Tablet 1 Tab PO PRN Q4HRS PRN 10/20/19 Rx Entresto 49 mg-51 mg Tablet (Sacubitril/Valsartan) 1 Each Tablet 49-51 Mg PO BID 07/30/19 Reported K-Tab ER (Potassium Chloride) 20 Meq Tablet.er 20 Meq PO DAILY 07/30/19 Reported Montelukast Sodium Tablet (Montelukast Sodium) 10 Mg Tablet 10 Mg PO HS 07/29/19 Reported Levocetirizine Dihydrochloride 5 Mg Tablet 5 Mg PO DAILY 07/29/19 Reported Amitriptyline Hcl 25 Mg Tablet 25 Mg PO QHS 07/29/19 Reported Tylenol (Acetaminophen) 325 Mg Tablet 650 Mg PO PRN Q4HRS PRN 07/29/19 Reported Aspir 81 (Aspirin) 81 Mg Tablet.dr 1 Tab PO DAILY 01/03/18 Reported Metoprolol Succinate ( Xl ) (Metoprolol Succinate) 25 Mg Tab.er.24h 25 Mg PO DAILY 01/03/18 Reported Vitamin D3 (Cholecalciferol (Vitamin D3)) 1,000 Unit Tablet 1 Tab PO DAILY 01/02/18 Reported Torsemide 20 Mg Tablet 1 Tab PO DAILY 01/02/18 Reported Gabapentin (Gabapentin) 100 Mg Capsule 100 Mg PO TID 01/02/18 Reported Ferrous Sulfate 325 Mg Tablet 1 Tab PO DAILY 09/23/17 Reported Daliresp (Roflumilast) 500 Mcg Tablet 1 Tab PO DAILY 09/23/17 Reported Atorvastatin Calcium 20 Mg Tablet 20 Mg PO HS 09/23/17 Reported Requip (Ropinirole Hcl) 1 Mg Tablet 3 Tab PO QHS 09/23/17 Reported Proair Hfa Inhaler (Albuterol Sulfate) 8.5 Gm Hfa.aer.ad 1 Puff INH PRN Q6HRS PRN 09/23/17 Reported Levothyroxine Sodium 50 Mcg Tablet 1 Tab PO DAILY 09/23/[address] reviewed ct No pulmonary mass or consolidation. Impression . IMPRESSION: 1. Dyspnea secondary to acute exacerbation of chronic obstructive pulmonary disease with persistent wheezing.no CHF. Pt had left heart cath 03/22 and had LVEDP of 27/ improved wheezing in last 48 hrs 2. No signs of pneumonia. 3. Chronic compensated hypercapnia. 4. allergic rhinitis Plan . RECOMMENDATIONS: 1. wheezing, mostly resolved. . holding metoprolol. s/p Mg So4 X 2days, ct reviewed, No pulmonary mass or consolidation. no CHF. 2. reduce IV steroids today 3. continue plumicort 4. off abx 5. COVID test is negative, 6. BD q 4hrs cont ics, cont flonase, cont. mucinex 7. consider inpatient rehab on D/C social work to assist with D/C planning 8. on protonix for PPI Discussed with RN, and Patient IMELDA EASTMAN MD May 16, 2020 09:50
[2020-05-16] MEDS ORDERED: HYDR-2761 PO (09:58)
[2020-05-16] MEDS ORDERED: methylPREDNISolone SOD SUCC PF 125 MG/2 ML VIAL. IV SCH (10:00)
--- NOTE | 2020-05-16 10:08 | SNU/HH DC ---
DISCHARGE ORDERS DISCHARGE INFORMATION: DISCHARGE DATE: May 16, 2020 FINAL DIAGNOSIS Problems Medical Problems: (1) COPD exacerbation Status: Acute CONDITION ON DISCHARGE: Stable CODE STATUS: Code Status: Full JAIL: SNF STAY <30 DAYS: Yes POST DISCHARGE ORDERS: ACTIVITY ORDERS: Activity as tolerated, Avoid exertion WEIGHT BEARING STATUS: Full weight bearing BATHING ORDERS: No Tub Bath until see Dr. CABA AFTER DISCHARGE: Cardiac WOUND/INCISION CARE: Ice to area for comfort, Change dressing, May get incision wet CHECKS AFTER DISCHARGE: CHECKS AFTER DISCHARGE: Check blood press - daily, Check blood sugar, ac/hs, Weigh Yourself Daily FOLLOW-UP: PHYSICIAN FOLLOW-UP: Dr. Ledbetter in 1 week TREATMENT/EQUIPMENT ORDERS: ADAPTIVE EQUIPMENT NEEDED: None RESPIRATORY EQUIPMENT NEEDED: Oxygen Physical Therapy For: Evalulation/Treatment Occupational Therapy For: Evaluation/Treatment DISCHARGE MEDICATIONS: Home Meds Active Scripts Doxycycline Hyclate (DOXYCYCLINE HYCLATE) 100 Mg Tablet, 1 TAB PO BID for copd, #14 TAB Prov:DEMETRA BABIN MD 05/16/20 Prednisone (PREDNISONE ) 10 Mg Tablet, 10 MG PO UD for PREDNISONE TAPER, #39 TAB 0 Refills Take 4 tablets by mouth daily for 5 days, then take 2 tablets by mouth daily for 5 days, then take 1 tablet by mouth daily for 5 days, then take 1 tablet by mouth daily x 3 days, then stop. Prov:DEMETRA BABIN MD 05/16/20 Hydrocodone Bit/Acetaminophen (HYDROCODONE-APAP 5-325 ) 1 Tab Tablet, 1 TAB PO PRN Q4HRS PRN for PAIN, #20 TAB Prov:DEMETRA BABIN MD 05/16/20 Ipratropium/Albuterol Sulfate (DUONEB 0.5-3(2.5) MG/3 ML) 3 Ml Ampul.neb, 3 ML NEB Q4HRS for WHEEZING, COUGH for 14 Days, #84 EACH Prov:PHONG EYBOAH MD 10/22/19 Reported Medications Allopurinol (ALLOPURINOL) 100 Mg Tablet, 1 TAB PO DAILY for gout 05/01/20 Fluticasone/Umeclidin/Vilanter (Trelegy Ellipta 100-62.5-25) 1 Each Blst.w.dev, 1 EACH IH DAILY for rx 03/17/20 Omeprazole Magnesium (PRILOSEC OTC) 20 Mg Tablet., 40 MG PO DAILY for rx, TAB 03/17/20 Sacubitril/Valsartan (Entresto 49 mg-51 mg Tablet) 1 Each Tablet, 49-51 MG PO BID for bp 07/30/19 Potassium Chloride (K-Tab ER) 20 Meq Tablet.er, 20 MEQ PO DAILY for hypokalemia 07/30/19 Montelukast Sodium (MONTELUKAST SODIUM TABLET ) 10 Mg Tablet, 10 MG PO HS for FOR ASTHMA, TAB 0 Refills 07/29/19 Levocetirizine Dihydrochloride (LEVOCETIRIZINE DIHYDROCHLORIDE) 5 Mg Tablet, 5 MG PO DAILY for allergies, TAB 07/29/19 Amitriptyline Hcl (AMITRIPTYLINE HCL) 25 Mg Tablet, 25 MG PO QHS for nerve pain, TAB 07/29/19 Acetaminophen (TYLENOL) 325 Mg Tablet, 650 MG PO PRN Q4HRS PRN for PAIN, TAB 07/29/19 Aspirin (ASPIR 81) 81 Mg Tablet.dr, 1 TAB PO DAILY, #30 TAB 5 Refills 01/03/18 Metoprolol Succinate (METOPROLOL SUCCINATE ( XL )) 25 Mg Tab.er.24h, 25 MG PO DAILY for FOR HYPERTENSION, #30 TAB 0 Refills 01/03/18 Cholecalciferol (Vitamin D3) (VITAMIN D3) 1,000 Unit Tablet, 1 TAB PO DAILY, #30 TAB 5 Refills 01/02/18 Torsemide (TORSEMIDE) 20 Mg Tablet, 1 TAB PO DAILY, #90 TAB 1 Refill 01/02/18 Gabapentin (GABAPENTIN ) 100 Mg Capsule, 100 MG PO TID, CAP 01/02/18 Ferrous Sulfate (FERROUS SULFATE) 325 Mg Tablet, 1 TAB PO DAILY, #30 TAB 3 Refills 09/23/17 Roflumilast (DALIRESP) 500 Mcg Tablet, 1 TAB PO DAILY, #90 TAB 3 Refills 09/23/17 Atorvastatin Calcium (ATORVASTATIN CALCIUM) 20 Mg Tablet, 20 MG PO HS for FOR CHOLESTEROL, #30 TAB 0 Refills 09/23/17 Ropinirole Hcl (REQUIP) 1 Mg Tablet, 3 TAB PO QHS, #30 TAB 2 Refills 09/23/17 Albuterol Sulfate (PROAIR HFA INHALER) 8.5 Gm Hfa.aer.ad, 1 PUFF INH PRN Q6HRS PRN for SHORTNESS OF BREATH, INHALER 0 Refills 09/23/17 Levothyroxine Sodium (LEVOTHYROXINE SODIUM) 50 Mcg Tablet, 1 TAB PO DAILY, #30 TAB 5 Refills 09/23/17 DEMETRA BABIN MD May 16, 2020 10:08
[2020-05-16] MEDS ORDERED: PRED-220 PO (10:12)
[2020-05-16] MEDS ORDERED: DOXY100T PO (10:14)
--- NOTE | 2020-05-16 10:25 | PDOC3 ---
Discharge Summary Visit Information Date of Admission: May 01, 2020 Date of Discharge: May 16, 2020 Admitting Diagnosis Comment: The patient is a pleasant 65-year-old female, who continues to smoke, although she states she just did quit smoking within the past week prior to admission. Once again, she presents with shortness of breath and COPD exacerbation. She had wheezing and rates her symptoms at 7/10 on admission. She has associated anxiety on admission. We consulted Pulmonary Medicine. Final Diagnosis Problems Medical Problems: (1) COPD exacerbation Status: Acute Brief Hospital Course Allergies Allergies Coded Allergies Type Severity Reaction Last Updated Verified ibuprofen Allergy Severe Swelling 08/09/18 Yes naproxen Allergy Severe Shortness of Air 10/25/18 Yes piperacillin Allergy Severe Swelling 11/17/19 Yes tazobactam Allergy Severe Swelling 08/09/18 Yes Vital Signs Vital Signs Date Time Temp Pulse Resp B/P (MAP) Pulse Ox O2 Delivery O2 Flow Rate FiO2 05/16/20 08:53 86 113/54 05/16/20 07:55 99 Nasal Cannula 3.0 05/16/20 07:15 97.9 18 97.9 Lab Results Laboratory Tests Test 05/14/20 11:06 05/14/20 16:37 05/14/20 20:40 05/15/20 07:26 Glucose (Fingerstick) 335 mg/dL (70-99) 191 mg/dL (70-99) 275 mg/dL (70-99) 145 mg/dL (70-99) Test 05/15/20 11:58 05/15/20 17:06 05/15/20 20:10 05/16/20 07:11 Glucose (Fingerstick) 160 mg/dL (70-99) 222 mg/dL (70-99) 301 mg/dL (70-99) 113 mg/dL (70-99) Laboratory Tests Test 05/15/20 11:58 05/15/20 17:06 05/15/20 20:10 05/16/20 07:11 Glucose (Fingerstick) 160 mg/dL (70-99) 222 mg/dL (70-99) 301 mg/dL (70-99) 113 mg/dL (70-99) Brief Hospital Course Ms. Mathur is a 65 old with hx COPD and frequent exacerbations. She took a long time to respond, treated with standard therapy of steroids and antibiotics. She improved but was still week on discharge, requiring skilled rehab. Discharge Information Condition at Discharge: Improved Follow Up: Weeks Disposition/Orders: D/C to Another Facility Scheduled Allopurinol (Allopurinol) 100 Mg Tablet, 1 TAB PO DAILY for gout, (Reported) Entered as Reported by: Aida Contreras on 05/01/202014 Last Action: Continued on 05/01/202039 by Aida Contreras Amitriptyline Hcl (Amitriptyline Hcl) 25 Mg Tablet, 25 MG PO QHS for nerve pain, (Reported) Entered as Reported by: BUTRON HORTON on 07/29/192105 Last Action: Continued on 05/01/202039 by Aida Contreras Aspirin (Aspir 81) 81 Mg Tablet.dr, 1 TAB PO DAILY, #30 Ref 5 (Reported) Entered as Reported by: MAIA BONE on 01/03/18 1332 Last Action: Continued on 05/01/202039 by Aida Contreras Atorvastatin Calcium (Atorvastatin Calcium) 20 Mg Tablet, 20 MG PO HS for FOR CHOLESTEROL, #30 Ref 0 (Reported) Entered as Reported by: SANDRO CRAFT on 09/23/17 1028 Last Action: Continued on 05/01/202039 by Aida Contreras Cholecalciferol (Vitamin D3) (Vitamin D3) 1,000 Unit Tablet, 1 TAB PO DAILY, #30 Ref 5 (Reported) Entered as Reported by: Kenya Hodgson on 01/02/18 1012 Last Action: Continued on 05/01/202039 by Aida Contreras Doxycycline Hyclate (Doxycycline Hyclate) 100 Mg Tablet, 1 TAB PO BID for copd, #14 Prescribed by: DEMETRA BABIN on 05/16/20 1014 Ferrous Sulfate (Ferrous Sulfate) 325 Mg Tablet, 1 TAB PO DAILY, #30 Ref 3 (Reported) Entered as Reported by: SANDRO CRAFT on 09/23/17 1028 Last Action: Continued on 05/01/202039 by Aida Contreras Fluticasone/Umeclidin/Vilanter (Trelegy Ellipta 100-62.5-25) 1 Each Blst.w.dev, 1 EACH IH DAILY for rx, (Reported) Entered as Reported by: KATT RIVERA on 03/17/20 0748 Last Action: Converted on 05/01/202039 by Aida Contreras Gabapentin (Gabapentin ) 100 Mg Capsule, 100 MG PO TID, (Reported) Entered as Reported by: Kenya Hodgson on 01/02/18 1012 Last Action: Continued on 05/01/202039 by Aida Contreras Ipratropium/Albuterol Sulfate (Duoneb 0.5-3(2.5) Mg/3 Ml) 3 Ml Ampul.neb, 3 ML NEB Q4HRS for WHEEZING, COUGH for 14 Days, #84 Prescribed by: PHONG YEBOAH MD on 10/22/19 1305 Last Action: Continued on 05/01/202039 by Aida Contreras Levocetirizine Dihydrochloride (Levocetirizine Dihydrochloride) 5 Mg Tablet, 5 MG PO DAILY for allergies, (Reported) Entered as Reported by: BURTON HORTON on 07/29/192105 Last Action: Converted on 05/01/202039 by Aida Contreras Levothyroxine Sodium (Levothyroxine Sodium) 50 Mcg Tablet, 1 TAB PO DAILY, #30 Ref 5 (Reported) Entered as Reported by: SANDRO CRAFT on 09/23/17 1028 Last Action: Continued on 05/01/202039 by Aida Contreras Metoprolol Succinate (Metoprolol Succinate ( Xl )) 25 Mg Tab.er.24h, 25 MG PO DAILY for FOR HYPERTENSION, #30 Ref 0 (Reported) Entered as Reported by: MAIA BONE on 01/03/18 1331 Last Action: Continued on 05/01/202039 by Aida Contreras Montelukast Sodium (Montelukast Sodium Tablet ) 10 Mg Tablet, 10 MG PO HS for FOR ASTHMA, Ref 0 (Reported) Entered as Reported by: BURTON HORTON on 07/29/192105 Last Action: Continued on 05/01/202039 by Aida Contreras Omeprazole Magnesium (Prilosec Otc) 20 Mg Tablet.dr, 40 MG PO DAILY for rx, (Reported) Entered as Reported by: KATT RIVERA on 03/17/20 0748 Last Action: Converted on 05/01/202039 by Aida Contreras Potassium Chloride (K-Tab ER) 20 Meq Tablet.er, 20 MEQ PO DAILY for hypokalemia, (Reported) Entered as Reported by: CECILIA NOVAK on 07/30/191942 Last Action: Converted on 05/01/202039 by Aida Contreras Prednisone (Prednisone ) 10 Mg Tablet, 10 MG PO UD for PREDNISONE TAPER, #39 Ref 0 Take 4 tablets by mouth daily for 5 days, then take 2 tablets by mouth daily for 5 days, then take 1 tablet by mouth daily for 5 days, then take 1 tablet by mouth daily x 3 days, then stop. Prescribed by: DEMETRA BABIN on 05/16/20 1012 Roflumilast (Daliresp) 500 Mcg Tablet, 1 TAB PO DAILY, #90 Ref 3 (Reported) Entered as Reported by: SANDRO CRAFT on 09/23/17 1028 Last Action: Continued on 05/01/202039 by Aida Contreras Ropinirole Hcl (Requip) 1 Mg Tablet, 3 TAB PO QHS, #30 Ref 2 (Reported) Entered as Reported by: SANDRO CRAFT on 09/23/17 1028 Last Action: Continued on 05/01/202039 by Aida Contreras Sacubitril/Valsartan (Entresto 49 mg-51 mg Tablet) 1 Each Tablet, 49-51 MG PO BID for bp, (Reported) Entered as Reported by: CECILIA NOVAK on 07/30/191942 Last Action: Continued on 05/01/202039 by Aida Contreras Torsemide (Torsemide) 20 Mg Tablet, 1 TAB PO DAILY, #90 Ref 1 (Reported) Entered as Reported by: Kenya Hodgson on 01/02/18 1012 Last Action: Continued on 05/01/202039 by Aida Contreras Scheduled PRN Acetaminophen (Tylenol) 325 Mg Tablet, 650 MG PO PRN Q4HRS PRN for PAIN, (Reported) Entered as Reported by: BURTON HORTON on 07/29/192105 Last Action: Continued on 05/01/202039 by Aida Contreras Albuterol Sulfate (Proair Hfa Inhaler) 8.5 Gm Hfa.aer.ad, 1 PUFF INH PRN Q6HRS PRN for SHORTNESS OF BREATH, Ref 0 (Reported) Entered as Reported by: SANDRO CRAFT on 09/23/17 1028 Last Action: Continued on 05/01/202039 by Aida Contreras Hydrocodone Bit/Acetaminophen (Hydrocodone-Apap 5-325 ) 1 Tab Tablet, 1 TAB PO PRN Q4HRS PRN for PAIN, #20 Prescribed by: DEMETRA BABIN on 05/16/20 1002 Patient Instructions Patient Instructions Discharge time greater than 30 min, [id number]. Justicifation of Admission Dx: Justifications for Admission: Justification of Admission Dx: Yes DEMETRA BABIN MD May 16, 2020 10:25
[2020-05-16 10:45] VITALS: BP 99/48
--- NOTE | 2020-05-16 11:50 | NUR ---
Pt. discharged to via per transportation. Transport packet with pt.
== END 2020-05-16 11:50 | DRG 177 ==
LOC: ER 12:40 → 6 SOUTH 14:26 → 4 NORTH 05-02 20:15
PROVIDERS: ADMIT Internal Medicine; ATTEND Internal Medicine
DX: J15.6 Pneumonia due to other Gram-negative bacteria (principal); J96.21 Acute and chronic respiratory failure with hypoxia; J96.22 Acute and chronic respiratory failure with hypercapnia; J44.1 Chronic obstructive pulmonary disease with (acute) exacerbation; Z20.828 Contact with and (suspected) exposure to other viral communicable diseases; E11.9 Type 2 diabetes mellitus without complications; E78.00 Pure hypercholesterolemia, unspecified; F41.9 Anxiety disorder, unspecified; I11.0 Hypertensive heart disease with heart failure; I25.10 Atherosclerotic heart disease of native coronary artery without angina pectoris; I50.9 Heart failure, unspecified; J30.9 Allergic rhinitis, unspecified; E78.5 Hyperlipidemia, unspecified; Z96.659 Presence of unspecified artificial knee joint; F17.200 Nicotine dependence, unspecified, uncomplicated; E03.9 Hypothyroidism, unspecified; Z71.6 Tobacco abuse counseling; Z90.710 Acquired absence of both cervix and uterus; Z90.49 Acquired absence of other specified parts of digestive tract; Z98.891 History of uterine scar from previous surgery; Z83.3 Family history of diabetes mellitus; Z88.6 Allergy status to analgesic agent; Z88.1 Allergy status to other antibiotic agents
CPT/HCPCS: 36415; 36600; 71045; 71046; 71250; 80048; 80053; 81001; 82805; 82962; 83880; 84484; 85007; 85025; 85027; 93005; 94640; 94644; 94760; 96365; 96375; 99285; J0456; J1200; J1815; J1940; J2920; J2930; J3010; J3475; J7030; J7050; 97110-GO; 97110-GP; 97116-GP; 97530-GO; 97530-GP; 97535-GO; G0378; J7613; J7626; U0003-CS

== ENCOUNTER → 2020-08-06 | Outpatient (CLI) | payer MEDICARE, OTHER ==
[~2020-08-06] MED LIST changes: -ALEN70TA6 PO; +ALEN70TA60 PO; +ALLO100T PO; +REGADENOSON 0.4 MG/5 ML DISP.SYRIN. IV ONE
--- NOTE | 2020-08-06 11:25 | CARD ---
MR#: [id number] Date of Study: 08/06/2020 Ordering Physician: SAMM CRUZ, Referring Physician: SAMM CRUZ, Tech: Ruthann Hansen APPROVED REPORT EXAM: Two-dimensional and M-mode echocardiogram with Doppler and color Doppler. Other Information Quality : AverageHR: 85bpm INDICATION Congestive Heart Failure Surgery/Intervention ICD/Pacemaker: Date: 2017 RISK FACTORS Hypertension Hyperlipidemia 2D DIMENSIONS RVDd3.4 (2.9-3.5cm)Left Atrium(2D)2.7 (1.6-4.0cm) IVSd0.8 (0.7-1.1cm)Aortic Root(2D)2.6 (2.0-3.7cm) LVDd4.2 (3.9-5.9cm)LVOT Diameter1.9 (1.8-2.4cm) PWd0.9 (0.7-1.1cm)LVDs3.3 (2.5-4.0cm) FS (%) 19.9 %SV31.5 ml Aortic Valve AoV Peak Toni.128.1cm/sAoV VTI20.7cm AO Peak GR.6.6mmHgLVOT Peak Toni.103.2cm/s LVOT VTI 20.46cmAO Mean GR.4mmHg GUERRERO (VMAX)1.85bx0CQF (VTI)2.86cm2 Mitral Valve MV E Uqhwexqi92.5cm/sMV E Peak Gr.76mmHg MV DECEL [id number] A Zzyejslm10.2cm/s MV E Mean Gr.1mmHgMV DJG63pn E/A Ratio0.8MVA (PHT)3.33cm2 TDI E/Lateral E'10.2E/Medial E'7.9 Pulmonary Valve PV Peak Rlaefras28.7cm/sPV Peak Grad.3mmHg Tricuspid Valve TR P. Jftluave489wj/sRAP VPSTEDXO6kpMt TR Peak Gr.17mmHg Pulmonary Vein S1 Gkynthnk71.3cm/sD2 Fsrryyfs14.0cm/s PVa rtpctfad385hewp LEFT VENTRICLE The left ventricle is normal size. There is normal left ventricular wall thickness. The left ventricu lar systolic function is low normal. The Ejection Fraction is 50%. Wall motion consistent with pacema ker activation Transmitral Doppler flow pattern is Grade I-abnormal relaxation pattern. RIGHT VENTRICLE The right ventricle is normal size. There is normal right ventricular wall thickness. The right ventr icular systolic function is normal. There is a device lead in the right ventricle. ATRIA The left atrium size is normal. The right atrium size is normal. The interatrial septum is intact wit h no evidence for an atrial septal defect or patent foramen ovale as noted on 2-D or Doppler imaging. AORTIC VALVE The aortic valve is normal in structure and function. Doppler and Color Flow revealed trace aortic re gurgitation. There is no significant aortic valvular stenosis. Calculated aortic valve area is 2.50 c m2 with maximum pressure gradient of 8 mmHg and mean pressure gradient of 5 mmHg. MITRAL VALVE The mitral valve is normal in structure and function. There is no evidence of mitral valve prolapse. There is no mitral valve stenosis. Doppler and Color-flow revealed trace mitral regurgitation. TRICUSPID VALVE The tricuspid valve is normal in structure and function. Doppler and Color Flow revealed trace tricus pid regurgitation with an estimated PAP of 20 mmHg. There is no tricuspid valve stenosis. PULMONIC VALVE The pulmonic valve is not well visualized. Doppler and Color Flow revealed trace pulmonic valvular re gurgitation. GREAT VESSELS The aortic root is normal in size. The ascending aorta is normal in size. The IVC is normal in size a nd collapses >50% with inspiration. PERICARDIAL EFFUSION There is no evidence of significant pericardial effusion. Critical Notification Critical Value: No <Conclusion> The left ventricle is normal size. The left ventricular systolic function is low normal. The Ejection Fraction is 50%. Wall motion consistent with pacemaker activation There is a device lead in the right ventricle. Doppler and Color Flow revealed trace aortic regurgitation. There is no significant aortic valvular stenosis. Doppler and Color-flow revealed trace mitral regurgitation. Doppler and Color Flow revealed trace tricuspid regurgitation with an estimated PAP of 20 mmHg. Signed by : William Oliveros MD Electronically Approved : 08/06/2020 11:24:54
--- NOTE | 2020-08-06 15:38 | RAD ---
MR#: [id number] Date of Study: 08/06/2020 Ordering Physician: SAMM CRUZ, Referring Physician: CECY KIDD Tech: JUDAH Head ARRT (R) (N) APPROVED REPORT Test Type: Pharmacological Stress Nurse/Tech: Andreina Jones R.N. Test Indications: chronic systolic heart function Cardiac History: cardiac caths, ICD, COPD, home O2 Medications: See Electronic Medical Record Medical History: See Electronic Medical Record Resting EC% V paced, inverted T wave in leads AVR,AVL,V1,V2 Resting Heart Rate: 80 bpm Resting Blood Pressure: 102/51mmHg Pretest Chest Pain: No chest pain Nurse/Tech Notes S1S2- deminished heart tones, lungs CTA but deminished throughout, Consent: The procedure was explained to the patient in lay terms. Informed consent was witnessed. Jon eout was entered into [facility]. History and Stress Test performed by RT Teena LeeR) (N) Pharm. Details Pharmacologic stress testing was performed using 0.4mg per 5ml of regadenoson given intravenously ove r 7-10 seconds. Stress Symptoms No chest pain or symptoms. POST EXERCISE Reason for Termination: Infusion complete Max HR: 93 bpm Max Blood Pressure: 103/51mmHg Blood Pressure response to exercise: Normal blood pressure response during stress. Heart Rate response to exercise: wnl Chest Pain: No. Arrhythmia: No. ST Change: No. INTERPRETATION Stress EKG Conclusion: The resting EKG shows a V paced rhythm. The patient remains in a V paced rhythm throughout the test. Imaging Protocol IMAGE PROTOCOL: Rest Tc-99m/stress Tc-99m 1 day Rest: Stress: Viability: Radiopharm.Tc99m SrairatkeDd72c Sestamibi Kpia38gFm 32mCi Img Date 08/06/2020 08/06/2020 Inj-Img Bcxb12wsp. 60min. Rest Admin Site:IV - Right AntecubitalAdministrator:JUDAH Head ARRT (R)(N) Stress Admin Site: IV - Right AntecubitalAdministrator: Peyton Galvan, RT (R)(N) STRESS DATA End Diast. Vol.67.0mlAv. Heart Rate88.0bpm End Syst. Vol.18.0mlCO Index BSA0.0L/min Myocardial Uyzo849.0gEject. Mjhtyolf06.0% Stress Rates Pk. Fill Rate2.62EDV/secLVtime Pk. Fill 93.24msec Pk. Empty Rate3.05ESV/secLVtime Pk. Bhpvm562.26msec 3 Pk. Fill1.82EDV/sec Stress Scores Regional WT0.00Summed WT7.00 Regional WM0.00Summed WM1.00 LV Perfusion The stress scans showed no significant defects. The rest scans showed minimal apical thinning. Nuclear imaging shows no reversible ischemia or infarct. Wall Motion Left ventricular systolic function is normal with an ejection fraction of greater than 70%. LV Perf. Quant 17 Seg. SSS3.00 17 Seg. SRS3.00 17 Seg. SDS1.00 Stress Defect Extent (% LAD)10.60Rest Defect Extent (% LAD)13.80Rev. Defect Extent (% LAD)6.30 Stress Defect Extent (% LCX) 0.00Rest Defect Extent (% LCX)0.00Rev. Defect Extent (% LCX)0.00 Stress Defect Extent (% RCA)0.00Rest Defect Extent (% RCA)0.00Rev. Defect Extent (% RCA)0.00 Stress Defect Extent (% [place])5.20Rest Defect Extent (% [place])7.40Rev. Defect Extent (% [place])3.00 Conclusion 1. V paced rhythm throughout the study. 2. Nuclear imaging shows no reversible ischemia or infarct. 3. Normal left ventricular systolic function with an ejection fraction of greater than 70%. 4. Low risk Lexiscan nuclear stress test. Signed by : William Oliveros MD Electronically Approved : 08/06/2020 15:38:04
== END ==
LOC: NM 09:24
PROVIDERS: ATTEND Internal Medicine Cardiovascular Disease
DX: I50.22 Chronic systolic (congestive) heart failure (principal); Z95.0 Presence of cardiac pacemaker; Z95.9 Presence of cardiac and vascular implant and graft, unspecified
CPT/HCPCS: 78452; 93017; 93306; A9500; J2785

== ENCOUNTER 2020-10-15 18:42 | Inpatient (IN) | payer MEDICARE, OTHER ==
[~2020-10-15] VITALS: Ht 152.4 cm; Wt 78.0 kg
[~2020-10-15 18:42] MED LIST changes: -ALEN70TA60 PO; +ALEN70TA71 PO; +LISI10TA16 PO; -LISI10TA2 PO; -REGADENOSON 0.4 MG/5 ML DISP.SYRIN. IV ONE
--- NOTE | 2020-10-15 19:12 | PHYS DOC ---
Past Medical History Past Medical History: CAD, CHF, COPD, Diabetes-Type II, High Cholesterol, Hypertension, Hypothyroid Past Surgical History: Cholecystectomy, , Hysterectomy, Knee Replacement, Other Additional Past Surgical Histo: left shoulder Smoking Status: Former Smoker Alcohol Use: None Drug Use: None Adult General Chief Complaint Chief Complaint: CHEST PAIN HPI HPI Patient is a 65-year-old female presenting for shortness of breath. Onset was 1 week ago without any known inciting event, trauma or exposure. Nothing known makes better or worse. Patient reports dull chest pain due to inability to take full deep breaths in and out, reports deep pressure on her chest without radiation that has been constant for past 1 week since symptom onset but worse mack yesterday evening. Associated symptoms include increased shortness of breath past baseline, increased sputum purulence and production, wheezing and dull chest pressure that is substernal as noted above. Patient denies any fever, recent travel, sick contact, known COVID-19 contact, lightheadedness, syncope, ripping or tearing chest pain, abdominal issues, no urinary symptoms, no edema. Patient has significant cardiac history, has pacemaker placed and takes 81 mg aspirin of daily, has heart failure reduced ejection fraction and on appropriate beta-herberth and Entresto therapy, no changes in weight, lower extremity edema or paroxysmal dyspnea etc. Patient does have extensive history of COPD as well, reports last exacerbation was May 2020 which required hospital admission for IV antibiotics and steroids. Review of Systems Review of Systems Fourteen body systems of review of systems have been reviewed. See HPI for pertinent positives and negative responses, other monroy all other systems are negative, non-pertinent or non-contributory Current Medications Current Medications Current Medications Medications (Trade) Dose Ordered Sig/Keshav Start Time Stop Time Status Last Admin Dose Admin Albuterol/ Ipratropium (Duoneb) 3 ml 1X ONCE 10/15/20 19:15 10/15/20 19:16 DC 10/15/20 19:43 3 ML Aspirin (Aspirin Chewable) 162 mg 1X ONCE 10/15/20 19:15 10/15/20 19:16 DC 10/15/20 19:19 162 MG Doxycycline Hyclate 100 mg/ Dextrose 100 ml @ 50 mls/hr 1X ONCE 10/15/20 20:15 10/15/20 22:14 DC 10/15/20 21:07 50 MLS/HR Methylprednisolone Sodium Succinate (SOLU-Medrol 125MG VIAL) 125 mg 1X ONCE 10/15/20 19:15 10/15/20 19:16 DC 10/15/20 19:19 125 MG Allergies Allergies Allergies Coded Allergies Type Severity Reaction Last Updated Verified ibuprofen Allergy Severe Swelling 08/09/18 Yes naproxen Allergy Severe Shortness of Air 10/25/18 Yes piperacillin Allergy Severe Swelling 11/17/19 Yes tazobactam Allergy Severe Swelling 08/09/18 Yes Physical Exam Physical Exam Constitutional: Well developed, well nourished, no acute distress, non-toxic appearance. HENT: Normocephalic, atraumatic, bilateral external ears normal, oropharynx moist, no oral exudates, nose normal. Eyes: PERRLA, EOMI, conjunctiva normal, no discharge. Neck: Normal range of motion, no tenderness, supple, no stridor. Cardiovascular: Heart rate regular, sinus rhythm, no murmurs rubs or gallops Lungs & Thorax: Bilateral breath sounds clear to auscultation Abdomen: Bowel sounds normal, soft, no tenderness, no masses, no pulsatile masses. Nonsurgical abdomen, no peritoneal signs Skin: Warm, dry, no erythema, no rash. Back: No tenderness, no CVA tenderness. Extremities: No tenderness, no cyanosis, no clubbing, ROM intact, no edema. Neurologic: Alert and oriented X 3, grossly normal motor & sensory function, no focal deficits noted. Psychologic: Affect normal, judgement normal, mood normal. Current Patient Data Vital Signs Vital Signs Date Time Temp Pulse Resp B/P (MAP) Pulse Ox O2 Delivery O2 Flow Rate FiO2 10/15/20 19:50 90 24 85/53 (64) 98 Room Air 10/15/20 18:58 97.6 97.6 Lab Values Laboratory Tests Test 10/15/20 19:14 White Blood Count 7.5 x10^3/uL (4.0-11.0) Red Blood Count 3.86 x10^6/uL (3.50-5.40) Hemoglobin 11.8 g/dL (12.0-15.5) L Hematocrit 35.3 % (36.0-47.0) L Mean Corpuscular Volume 92 fL (79-100) Mean Corpuscular Hemoglobin 31 pg (25-35) Mean Corpuscular Hemoglobin Concent 33 g/dL (31-37) Red Cell Distribution Width 16.6 % (11.5-14.5) H Platelet Count 306 x10^3/uL (140-400) Neutrophils (%) (Auto) 91 % (31-73) H Lymphocytes (%) (Auto) 7 % (24-48) L Monocytes (%) (Auto) 1 % (0-9) Eosinophils (%) (Auto) 0 % (0-3) Basophils (%) (Auto) 1 % (0-3) Neutrophils # (Auto) 6.9 x10^3/uL (1.8-7.7) Lymphocytes # (Auto) 0.5 x10^3/uL (1.0-4.8) L Monocytes # (Auto) 0.1 x10^3/uL (0.0-1.1) Eosinophils # (Auto) 0.0 x10^3/uL (0.0-0.7) Basophils # (Auto) 0.0 x10^3/uL (0.0-0.2) Segmented Neutrophils % 90 % (35-66) H Lymphocytes % 9 % (24-48) L Basophils % 1 % (0-3) Platelet Estimate Adequate (ADEQUATE) Large Platelets Sodium Level 136 mmol/L (136-145) Potassium Level 4.6 mmol/L (3.5-5.1) Chloride Level 99 mmol/L (98-107) Carbon Dioxide Level 30 mmol/L (21-32) Anion Gap 7 (6-14) Blood Urea Nitrogen 20 mg/dL (7-20) Creatinine 1.5 mg/dL (0.6-1.0) H Estimated GFR (Cockcroft-Gault) 34.7 BUN/Creatinine Ratio 13 (6-20) Glucose Level 193 mg/dL (70-99) H Calcium Level 9.8 mg/dL (8.5-10.1) Total Bilirubin 0.3 mg/dL (0.2-1.0) Aspartate Amino Transferase (AST) 30 U/L (15-37) Alanine Aminotransferase (ALT) 26 U/L (14-59) Alkaline Phosphatase 105 U/L (46-116) Troponin I Quantitative < 0.017 ng/mL (0.000-0.055) KX-Emk-F-Type Natriuretic Peptide 158 pg/mL (0-124) H Total Protein 7.9 g/dL (6.4-8.2) Albumin 3.3 g/dL (3.4-5.0) L Albumin/Globulin Ratio 0.7 (1.0-1.7) L Laboratory Tests 10/15/20 19:14 Laboratory Tests 10/15/20 19:14 EKG EKG EKG ordered and interpreted by myself at 1905 hrs. as an atrial paced rhythm at 98 bpm, prolonged QTC at 487 otherwise unremarkable intervals, right axis deviation, T wave inversions noted in leads aVR without any other obvious abnormalities, no STEMI Radiology/Procedures Radiology/Procedures AP portable chest radiograph 10/15/2020 Clinical History: Shortness of breath. An AP erect portable digital radiograph of the chest was obtained. Comparison study is dated 05/12/2020. A Left-sided pacemaker/defibrillator is unchanged in position. The cardiac silhouette is normal in size. The thoracic aorta is mildly tortuous. Atherosclerotic calcification thoracic aorta is seen. Prominence of the pulmonary vasculature and interstitial markings in both lungs is seen which c ould reflect mild CHF. No area of consolidation is seen. No pneumothorax or pleural effusion is noted. Degenerative changes are seen involving the thoracic spine and both shoulders. IMPRESSION: Question mild CHF. Electronically signed by: Clyde Hsieh MD (10/15/2020 7:52 PM) [id number] Course & Med Decision Making Course & Med Decision Making Pertinent Labs and Imaging studies reviewed. (See chart for details) Discussed most likely diagnosis of acute exacerbation of COPD that meets criteria for antibiotic treatment. Patient did not significantly improve with ER intervention and so, hospitalization is recommended for continued inpatient medical management I also disclosed patient's acute on chronic episode of chest pain that is substernal in nature starting yesterday evening and high risk patient with known CAD and current pacemaker. I reiterated need for hospital admission for COPD but also to ensure no ACS Hospitalist contacted and case discussed, Dr. Butcher agreed need for admission and accepted patient under his care I updated patient on proposed plan of care for continued treatment of acute exacerbation of COPD and to rule out ACS with serial troponin and EKGs. All questions and concerns addressed prior to hospital admission Critical Care Time This patient required critical care. Due to the fact that the patient required a significant amount of one on one physician - patient contact time, ordering and review of studies, arranging urgent treatment with development of a management plan, evaluation of patients response to treatment with frequent reassessments, and discussions with other providers this patient required 35 minutes of c ritical care time. Critical care time was indicated due to the inherent instability and/or potential for instability in this patient. The critical care time that is allocated to this patient is above and beyond any time spent on any other billable procedures performed on this patient. Dragon Disclaimer Dragon Disclaimer This electronic medical record was generated, in whole or in part, using a voice recognition dictation system. Departure Departure Impression: Primary Impression: Acute exacerbation of chronic obstructive pulmonary disease (COPD) Additional Impression: Chest pain, rule out acute myocardial infarction Disposition: 09 ADMITTED INPT THIS HOSP Admitting Physician: ROYCE (DR RAYMOND) Condition: STABLE Referrals: ANGIE WILLINGHAM MD (PCP) Problem Qualifiers ELIA YE DO Oct 15, 2020 19:12
[2020-10-15] MEDS ORDERED: IPRATRPIUM/ALBUTEROL 0.5/2.5MG 3 ML NEBU. NEB ONE (19:15)
[2020-10-15] MEDS ORDERED: ASPIRIN CHEWABLE 81 MG TABLET. PO ONE (19:15)
[2020-10-15] MEDS ORDERED: methylPREDNISolone SOD SUCC PF 125 MG/2 ML VIAL. IV ONE (19:15)
[2020-10-15 19:24] LABS: BASO % 1 % (0-3); EOS % 0 % (0-3); HEMATOCRIT 35.3 % (36.0-47.0); HEMOGLOBIN 11.8 g/dL (12.0-15.5); LYMPH # 0.5 x10^3/uL (1.0-4.8); LYMPH % 7 % (24-48); MEAN CORPUSCULAR HEMOGLOBIN 31 pg (25-35); MEAN CORPUSCULAR HGB CONC 33 g/dL (31-37); MEAN CORPUSCULAR VOLUME 92 fL (79-100); MONO # 0.1 x10^3/uL (0.0-1.1); MONO % 1 % (0-9); NEUT # 6.9 x10^3/uL (1.8-7.7); NEUT % 91 % (31-73); PLATELET COUNT 306 x10^3/uL (140-400); RED BLOOD COUNT 3.86 x10^6/uL (3.50-5.40); RED CELL DISTRIBUTION WIDTH 16.6 % (11.5-14.5); WHITE BLOOD COUNT 7.5 x10^3/uL (4.0-11.0)
[2020-10-15 19:45] LABS: CALCIUM 9.8 mg/dL (8.5-10.1); CREATININE 1.5 mg/dL (0.6-1.0); GFR 34.7; POTASSIUM 4.6 mmol/L (3.5-5.1)
--- NOTE | 2020-10-15 19:54 | RAD ---
AP portable chest radiograph 10/15/2020 Clinical History: Shortness of breath. An AP erect portable digital radiograph of the chest was obtained. Comparison study is dated 05/12/2020. A Left-sided pacemaker/defibrillator is unchanged in position. The cardiac silhouette is normal in si ze. The thoracic aorta is mildly tortuous. Atherosclerotic calcification thoracic aorta is seen. Prom inence of the pulmonary vasculature and interstitial markings in both lungs is seen which could refle ct mild CHF. No area of consolidation is seen. No pneumothorax or pleural effusion is noted. Degenera tive changes are seen involving the thoracic spine and both shoulders. IMPRESSION: Question mild CHF. Electronically signed by: Clyde Hsieh MD (10/15/2020 7:52 PM) [id number]
[2020-10-15 19:56] LABS: ALBUMIN 3.3 g/dL (3.4-5.0); ALBUMIN/GLOBULIN RATIO 0.7 (1.0-1.7); TOTAL BILIRUBIN 0.3 mg/dL (0.2-1.0); TOTAL PROTEIN 7.9 g/dL (6.4-8.2)
[2020-10-15] MEDS ORDERED: DOXYCYCLINE HYCLATE 100 MG in IV DEXTROSE 5% 100ML 100 ML IV ONE (20:15)
[2020-10-15 20:26] LABS: % BASOS 1 % (0-3); % LYMPHS 9 % (24-48); % SEGS 90 % (35-66); PLT ESTIMATE ADEQUATE (ADEQUATE)
[2020-10-15] MEDS ORDERED: ACETAMINOPHEN 325 MG TABLET. PO PRN (21:15)
[2020-10-15] MEDS ORDERED: NITROGLYCERIN SUBLINGUAL 0.4 MG BOTTLE OF 25. SL PRN (21:15)
[2020-10-15 23:10] VITALS: BP 107/52
[2020-10-16] MEDS ORDERED: ALEN70TA71 PO (00:14)
[2020-10-16] MEDS ORDERED: ALLO300T PO (00:14)
[2020-10-16] MEDS ORDERED: FLUT16SP NS (00:14)
[2020-10-16 03:30] VITALS: BP 94/50
[2020-10-16 07:00] VITALS: BP 92/46
[2020-10-16] MEDS: IPRATRPIUM/ALBUTEROL 0.5/2.5MG 3 ML NEBU. NEB SCH ×5 (07:53→20:00)
[2020-10-16 11:00] VITALS: BP 123/57
--- NOTE | 2020-10-16 11:43 | NUR ---
SS following for discharge planning. SS reviewed pt chart and discussed with pt RN. Pt is currently requiring oxygen at three liters nasal canula. Pt has home oxygen. COVID19 negative. PT/OT ordered. Pt has had [facility], ; fax [phone], in the past. SS will continue to follow for discharge planning.
--- NOTE | 2020-10-16 12:50 | PDOC2 ---
KJ LORA PRECISION INSTRUMENT MAKER AND REPAIRER 10/16/20 1250: CARDIAC CONSULT DATE OF CONSULT Date of Consult DATE: 10/16/20 TIME: 12:31 REASON FOR CONSULT Reason for Consult: Chest pain REFERRING PHYSICIAN Referring Physician: Kiesha SOURCE Source: Chart review, Patient HISTORY OF PRESENT ILLNESS HISTORY OF PRESENT ILLNESS This is a pleasant 65 yo female admitted for complains of shortness of breath and chest pain. Reports that she has been having more SOA in the last week but more pronounced in the last 2 days. Positive for coughing although not much coming up. [place] body aches but no reported fever. Feels hot and cold at times. No significant leg edema. Her left chest pain is sharp and sometimes cramping hurts more when taking a deep breath. SOA despite her inhalers and SOA despite being on 3LPM of O2 and note at home O2 sat in the 80s. Her also has been coughing and reported that she and her attended a close to [place]. Denies any palpitations, nausea or vomiting. Negative for loss of taste and smell and no diarrhea. Also has been having more heart burn lately and has increased her dosing of prilosec. PAST MEDICAL HISTORY Past Medical History Cardiovascular: diastolic CHF, HTN, Hyperlipidemia, NICM, chronic LBBB Pulmonary: COPD, pulmonary HTN CENTRAL NERVOUS SYSTEM: RLS GI: GERD Heme/Onc: No pertinent hx Hepatobiliary: No pertinent hx Psych: No pertinent hx Musculoskeletal: Osteoarthritis, osteoporosis Rheumatologic: Gout Infectious disease: No pertinent hx Renal/: No pertinent hx Endocrine: Diabetes, Hypothyroidism FAMILY HISTORY Family History: Heart Disease SOCIAL HISTORY Social History Smoke: Quit (10/02/19) ALCOHOL: none Drugs: None Lives: with Family PAST SURGICAL HISTORY Past Surgical History Pacemaker (Bi-V ICD/AUTOMOTIVE BRAKE ADJUSTER-D ), left shoulder arthroscopy, hysterectomy, cholecystectomy FAMILY HISTORY Family History: Heart Disease SOCIAL HISTORY Smoke: Quit ALCOHOL: none Drugs: None Lives: with Family CURRENT MEDICATIONS CURRENT MEDICATIONS Current Medications Medications (Trade) Dose Ordered Sig/Keshav Route PRN Reason Start Time Stop Time Status Last Admin Dose Admin Albuterol/ Ipratropium (Duoneb) 3 ml 1X ONCE NEB 10/15/20 19:15 10/15/20 19:16 DC 10/15/20 19:43 Methylprednisolone Sodium Succinate (SOLU-Medrol 125MG VIAL) 125 mg 1X ONCE IV 10/15/20 19:15 10/15/20 19:16 DC 10/15/20 19:19 Aspirin (Aspirin Chewable) 162 mg 1X ONCE PO 10/15/20 19:15 10/15/20 19:16 DC 10/15/20 19:19 Doxycycline Hyclate 100 mg/ Dextrose 100 ml @ 50 mls/hr 1X ONCE IV 10/15/20 20:15 10/15/20 22:14 DC 10/15/20 21:07 Albuterol/ Ipratropium (Duoneb) 3 ml RTQID NEB 10/16/20 08:00 10/17/20 07:59 10/16/20 12:19 ALLERGIES ALLERGIES: Coded Allergies: ibuprofen (Verified Allergy, Severe, Swelling, 08/09/18) naproxen (Verified Allergy, Severe, Shortness of Air, 10/25/18) tolerates asa piperacillin (Verified Allergy, Severe, Swelling, 11/17/19) Tolerated cefepime tazobactam (Verified Allergy, Severe, Swelling, 08/09/18) ROS Review of System 14 point ROS evaluated with pertinent positives noted per HPI PHYSICAL EXAM General: Alert, Oriented X3, Cooperative, No acute distress HEENT: Atraumatic, Mucous membr. moist/pink Lungs: Other (diffuse faint wheeze) Heart: Regular rate (SR), Normal S1, Normal S2 Abdomen: Soft, No tenderness Extremities: No cyanosis, No edema Skin: No breakdown, No significant lesion Neuro: Normal speech, Sensation intact Psych/Mental Status: Mental status NL, Mood NL MUSCULOSKELETAL: Osteoarthritic changes both hands VITALS/I&O VITALS/I&O: Vital Signs Date Time Temp Pulse Resp B/P (MAP) Pulse Ox O2 Delivery O2 Flow Rate FiO2 10/16/20 12:20 Nasal Cannula 3.0 10/16/20 07:55 97 10/16/20 07:00 97.4 83 18 92/46 (61) 97.4 I & O 10/15/20 10/15/20 10/16/20 15:00 23:00 07:00 Intake Total 400 ml Output Total 250 ml Balance 150 ml LABS Lab: Laboratory Tests Test 10/15/20 19:14 10/16/20 07:17 White Blood Count 7.5 x10^3/uL (4.0-11.0) Red Blood Count 3.86 x10^6/uL (3.50-5.40) Hemoglobin 11.8 g/dL (12.0-15.5) L Hematocrit 35.3 % (36.0-47.0) L Mean Corpuscular Volume 92 fL (79-100) Mean Corpuscular Hemoglobin 31 pg (25-35) Mean Corpuscular Hemoglobin Concent 33 g/dL (31-37) Red Cell Distribution Width 16.6 % (11.5-14.5) H Platelet Count 306 x10^3/uL (140-400) Neutrophils (%) (Auto) 91 % (31-73) H Lymphocytes (%) (Auto) 7 % (24-48) L Monocytes (%) (Auto) 1 % (0-9) Eosinophils (%) (Auto) 0 % (0-3) Basophils (%) (Auto) 1 % (0-3) Neutrophils # (Auto) 6.9 x10^3/uL (1.8-7.7) Lymphocytes # (Auto) 0.5 x10^3/uL (1.0-4.8) L Monocytes # (Auto) 0.1 x10^3/uL (0.0-1.1) Eosinophils # (Auto) 0.0 x10^3/uL (0.0-0.7) Basophils # (Auto) 0.0 x10^3/uL (0.0-0.2) Segmented Neutrophils % 90 % (35-66) H Lymphocytes % 9 % (24-48) L Basophils % 1 % (0-3) Platelet Estimate Adequate (ADEQUATE) Large Platelets Sodium Level 136 mmol/L (136-145) Potassium Level 4.6 mmol/L (3.5-5.1) Chloride Level 99 mmol/L (98-107) Carbon Dioxide Level 30 mmol/L (21-32) Anion Gap 7 (6-14) Blood Urea Nitrogen 20 mg/dL (7-20) Creatinine 1.5 mg/dL (0.6-1.0) H Estimated GFR (Cockcroft-Gault) 34.7 BUN/Creatinine Ratio 13 (6-20) Glucose Level 193 mg/dL (70-99) H Calcium Level 9.8 mg/dL (8.5-10.1) Total Bilirubin 0.3 mg/dL (0.2-1.0) Aspartate Amino Transferase (AST) 30 U/L (15-37) Alanine Aminotransferase (ALT) 26 U/L (14-59) Alkaline Phosphatase 105 U/L (46-116) Troponin I Quantitative < 0.017 ng/mL (0.000-0.055) < 0.017 ng/mL (0.000-0.055) PE-Uvp-Q-Type Natriuretic Peptide 158 pg/mL (0-124) H Total Protein 7.9 g/dL (6.4-8.2) Albumin 3.3 g/dL (3.4-5.0) L Albumin/Globulin Ratio 0.7 (1.0-1.7) L Laboratory Tests 10/15/20 19:14 Laboratory Tests 10/15/20 19:14 ECHOCARDIOGRAM ECHOCARDIOGRAM <Conclusion> The left ventricle is normal size. The left ventricular systolic function is low normal. The Ejection Fraction is 50%. Wall motion consistent with pacemaker activation There is a device lead in the right ventricle. Doppler and Color Flow revealed trace aortic regurgitation. There is no significant aortic valvular stenosis. Doppler and Color-flow revealed trace mitral regurgitation. Doppler and Color Flow revealed trace tricuspid regurgitation with an estimated PAP of 20 mmHg. DATE: 08/06/20 1040 STRESS TEST STRESS TEST Conclusion 1. V paced rhythm throughout the study. 2. Nuclear imaging shows no reversible ischemia or infarct. 3. Normal left ventricular systolic function with an ejection fraction of greater than 70%. 4. Low risk Lexiscan nuclear stress test. DATE: 08/06/20 1131 HEART CATH HEART CATH Conclusion 1. No significant coronary disease. 2. Normal left ventricular systolic function with ejection fraction estimated at 55%. 3. Mild acute on chronic diastolic heart failure as evidenced by elevated LVEDP. 4. Mild pulmonary hypertension. 5. No evidence of intracardiac shunt. Recommendations Medical Therapy DATE: 03/17/20 7109 ASSESSMENT/PLAN ASSESSMENT/PLAN 1. Atypical chest pain: possibly from bronchospasm. Significant workup last yr including MPI and LHC with no significant CAD 2. Chronic diastolic CHF 3. AECOPD: which is likely the cause of her dyspnea per PCP 4. HTN: controlled currently low marginal 5. HLP 6. Hx of NICM: recovered 7. AUTOMOTIVE BRAKE ADJUSTER-D: Biotronik. Interrogation revealed normal function and no significant arrhythmias, impedances stable denoting no significant fluid overload 8. CKD3: Cr 1.3-1.5 9. PUI 10. GERD exacerbation Recommendations COPD treatment per PCP May hold BP meds if BP trend is slow. Resume home torsemide May hold entresto for now and resume prior to DC Await covid PCR otherwise no further cardiac workup Start on PPI SAMM CRUZ MD 10/16/20 1703: CARDIAC CONSULT ASSESSMENT/PLAN ASSESSMENT/PLAN Patient seen and examined. Agree with HOSPITAL FOOD SERVICE WORKER's assessment and plan. Chest pain with atypical features and most probably secondary to bronchospasm. Cardiac catheterization 03/2020 did not show any significant coronary artery disease. Chronic diastolic heart failure well compensated. LVEF 50% on recent 2D echo. s/p BiV ICD/AUTOMOTIVE BRAKE ADJUSTER-D implantation, stable with normal function. Covid test pending. Continue treatment for acute COPD exacerbation per IM. Thank you for your consultation. KJ LORA APRN Oct 16, 2020 12:50 SAMM CRUZ MD Oct 16, 2020 17:03
--- NOTE | 2020-10-16 13:31 | HP ---
ADMIT DATE: 10/15/2020 CHIEF COMPLAINT: Shortness of breath and chest pain. HISTORY OF PRESENT ILLNESS: The patient is a pleasant middle-aged female who has known COPD and coronary artery disease. She presents today with chest pain, rated 7/10, has been occurring for about a week, but it got worse over the past day or two, states her pain is worse with moving, better sitting still. She increased her home meds, but that did not work. I discussed the case with ER physician. We are going to admit the patient and consult Cardiology and treated for COPD exacerbation. PAST MEDICAL HISTORY: COPD, CHF, CAD, hypertension, hyperlipidemia, hypothyroidism, cholecystectomy, , hysterectomy, knee replacement, left shoulder surgery, previous tobacco abuse. ALLERGIES: IBUPROFEN, NAPROXEN, ZOSYN AND TAZOBACTAM. FAMILY HISTORY: Coronary artery disease. SOCIAL HISTORY: She does not drink or take drugs. She used to smoke, states she quit. MEDICATIONS: Reviewed, please refer to the MRAD. REVIEW OF SYSTEMS: GENERAL: No history of weight change, weakness or fevers. SKIN: No bruising, hair changes or rashes. EYES: No blurred, double or loss of vision. NOSE AND THROAT: No history of nosebleeds, hoarseness or sore throat. HEART: She complains of chest pain. LUNGS: She complains of shortness of breath. GASTROINTESTINAL: Denies changes in appetite, nausea, vomiting, diarrhea or constipation. GENITOURINARY: No history of frequency, urgency, hesitancy or nocturia. NEUROLOGIC: Denies history of numbness, tingling, tremor or weakness. PSYCHIATRIC: No history of panic, anxiety or depression. ENDOCRINE: No history of heat or cold intolerance, polyuria or polydipsia. EXTREMITIES: Denies muscle weakness, joint pain, pain on walking or stiffness. PHYSICAL EXAMINATION: VITALS: Within normal limits and are stable. GENERAL: No apparent distress. Alert and oriented. HEENT: Normal cephalic atraumatic, external auditory canals are patent EYES: Extraocular muscles are intact, pupils are equally round and reactive to light and accommodation MUSCULOSKELETAL: Well developed, well nourished, good range of motion ENDOCRINE: No thyromegaly was palpated LYMPHATICS: No cervical chain or axillary nodes were noted HEMATOPOIETIC: No bruising NECK: Supple, no JVD, no thyromegaly was noted. LUNGS: She has decreased breath sounds. HEART: RRR, S1, S2 present. Peripheral pulses intact, no obvious murmurs were noted. ABDOMEN: Soft, nontender. Positive bowel sounds no organomegaly, normal bowel sounds. EXTREMITIES: Without any cyanosis, clubbing, or edema. Pedal pulses intact, Homans sign is negative. NEUROLOGIC: Normal speech, normal tone. A & O x3, moves all extremities, no obvious focal deficits. PSYCHIATRIC: Normal affect, normal mood. Stable. SKIN: No ulcerations or rashes, good skin turgor, no jaundice. VASCULAR: Good capillary refill, neurovascular bundle appears to be intact. LABORATORY DATA: Troponin is 0. Chest x-ray shows possible CHF. ASSESSMENT AND PLAN: Chronic obstructive pulmonary disease exacerbation and chest pain and possible heart failure. The patient will be admitted. We will consult Cardiology. Cardiac monitoring, home meds, deep venous thrombosis prophylaxis. Full code. Serial enzymes, serial EKGs. I ordered Solu-Medrol and DuoNeb. JULIANA ERNST DO DR: MARTA/lisa JOB#: [id number] / [id number]
[2020-10-16] MEDS: methylPREDNISolone SOD SUCC PF 40 MG/ML VIAL. IV SCH ×2 (13:35→20:48)
[2020-10-16 15:00] VITALS: BP 92/45
[2020-10-16] MEDS: ASPIRIN ENTERIC COATED 81 MG TABLET.DR. PO SCH (16:23)
[2020-10-16] MEDS: METOPROLOL SUCC 24HR ER 25 MG TAB.ER.24H. PO SCH (16:24)
[2020-10-16] MEDS: PANTOPRAZOLE 40 MG TABLET.DR. PO SCH (16:24)
[2020-10-16 19:00] VITALS: BP 100/57
--- NOTE | 2020-10-16 20:44 | NUR ---
Patient transfered to 2S room 261. Report given to margarito, all belongings with patient at time of transfer.
[2020-10-16] MEDS: ATORVASTATIN CALCIUM 20 MG TABLET PO SCH (20:48)
[2020-10-16] MEDS: AMITRIPTYLINE HCL 25 MG TABLET. PO SCH (21:04)
[2020-10-16] MEDS: rOPINIRole 1 MG TABLET. PO SCH (21:04)
[2020-10-16 22:59] VITALS: BP 95/49
[2020-10-17 02:35] VITALS: BP 91/53
[2020-10-17 07:00] VITALS: BP 106/54
[2020-10-17] MEDS: IPRATRPIUM/ALBUTEROL 0.5/2.5MG 3 ML NEBU. NEB SCH ×2 (08:00→12:00)
[2020-10-17] MEDS: ASPIRIN ENTERIC COATED 81 MG TABLET.DR. PO SCH (08:34)
[2020-10-17] MEDS: PANTOPRAZOLE 40 MG TABLET.DR. PO SCH (08:34)
[2020-10-17] MEDS: methylPREDNISolone SOD SUCC PF 40 MG/ML VIAL. IV SCH ×2 (08:35→20:46)
[2020-10-17] MEDS: METOPROLOL SUCC 24HR ER 25 MG TAB.ER.24H. PO SCH (08:35)
[2020-10-17 11:00] VITALS: BP 113/67
--- NOTE | 2020-10-17 11:25 | NUR ---
SS following up with discharge planning. SS reviewed pt chart and discussed with pt RN. Pt is currently requiring oxygen at three liters nasal canula. Pt has home oxygen. COVID19 negative. PT/OT recommended home with home healthcare. Pt has had [facility], ; fax [phone], in the past and is agreeable to resume services with [facility]. Referral phoned and faxed to [facility]. SS will continue to follow for discharge planning.
--- NOTE | 2020-10-17 13:48 | PDOC ---
[facility] PROGRESS NOTE Date of Service DOS: DATE: 10/17/20 TIME: 13:43 Chief Complaint Chief Complaint Atypical chest pain possible NSTEMI Investigation for COVID-19 infection Chronic diastolic CHF Acute COPD exacerbation Hypertension, controlled Dyslipidemia History of nonischemic cardiomyopathy Acute on chronic kidney injury Continue telemetry monitoring Appreciate cardiology recommendationsresume torsemide, hold Entresto, hold blood pressure medication of blood pressure is marginal Lovenox for DVT prophylaxis Protonix GI prophylaxis ADA diet Full code Discussed with RN and SW Disposition inpatient management as above Surrogate decision maker is Herman Mathur History of Present Illness History of Present Illness 10/17/2020 No acute events overnight. Patient has improved dyspnea and she is saturating well on room air. Complains of some cough and sounds congested on my examination. Will attempt Combivent inhaler before Covid test returns. Patient's chart, labs, images were reviewed and discussed with RN 65-year-old female middle-aged appearing female who has known COPD and coronary artery disease. She presents today with chest pain, rated 7/10, has been occurring for about a week, but it got worse over the past day or two, states her pain is worse with moving, better sitting still. She increased her home meds, but that did not work. I discussed the case with ER physician. We are going to admit the patient and consult Cardiology and treated for COPD exacerbation. Vitals/I&O Vitals/I&O: Vital Signs Date Time Temp Pulse Resp B/P (MAP) Pulse Ox O2 Delivery O2 Flow Rate FiO2 10/17/20 08:35 106/54 10/17/20 07:00 97.7 66 22 99 Nasal Cannula 3.0 97.7 I & O 10/16/20 10/16/20 10/17/20 15:00 23:00 07:00 Output Total 250 ml 100 ml Balance -250 ml -100 ml Physical Exam General: Alert, Oriented X3, Cooperative, No acute distress Heart: Regular rate (SR), Normal S1, Normal S2 Lungs: Wheezing, Other Abdomen: Soft, No tenderness Extremities: No cyanosis, No edema Skin: No breakdown, No significant lesion Labs Labs: Laboratory Tests Test 10/16/20 21:00 Glucose (Fingerstick) 278 mg/dL (70-99) Assessment and Plan Assessmemt and Plan Problems Medical Problems: (1) Acute exacerbation of chronic obstructive pulmonary disease (COPD) Status: Acute (2) Chest pain, rule out acute myocardial infarction Status: Acute Comment Review of Relevant I have reviewed the following items jon (where applicable) has been applied. Medications: Current Medications Medications (Trade) Dose Ordered Sig/Keshav Route PRN Reason Start Time Stop Time Status Last Admin Dose Admin Aspirin (Ecotrin) 81 mg DAILY PO 10/16/20 15:00 10/17/20 08:34 Atorvastatin Calcium (Lipitor) 20 mg HS PO 10/16/20 21:00 10/16/20 20:48 Metoprolol Succinate (Toprol Xl) 25 mg DAILY PO 10/16/20 15:00 10/17/20 08:35 Pantoprazole Sodium (Protonix) 40 mg DAILYAC PO 10/16/20 16:30 10/17/20 08:34 Amitriptyline HCl (Elavil) 25 mg QHS PO 10/16/20 21:00 10/16/20 21:04 Ropinirole HCl (Requip) 3 mg QHS PO 10/16/20 21:00 10/16/20 21:04 Justifications for Admission Other Justification BRAYAN RAYMOND MD Oct 17, 2020 13:48
[2020-10-17 15:00] VITALS: BP 105/49
[2020-10-17] MEDS: ACETAMINOPHEN 325 MG TABLET. PO PRN (15:47)
[2020-10-17] MEDS: TORSEMIDE 20 MG TABLET. PO SCH (15:47)
[2020-10-17] MEDS: guaiFENesin/CODEINE 100mg/10mg 5 ML LIQUID PO PRN (15:48)
[2020-10-17] MEDS: IPRATROPIUM/ALBUTEROL 20/100mcg/INH INHALER. INH SCH (16:00)
[2020-10-17 19:50] VITALS: BP 86/45
[2020-10-17] MEDS: ATORVASTATIN CALCIUM 20 MG TABLET PO SCH (20:46)
[2020-10-17] MEDS: AMITRIPTYLINE HCL 25 MG TABLET. PO SCH (20:46)
[2020-10-17] MEDS: rOPINIRole 1 MG TABLET. PO SCH (20:46)
[2020-10-17 22:06] VITALS: BP 92/47
[2020-10-18 02:48] VITALS: BP 102/45
[2020-10-18 07:00] VITALS: BP 96/54
[2020-10-18] MEDS: METOPROLOL SUCC 24HR ER 25 MG TAB.ER.24H. PO SCH (08:51)
[2020-10-18] MEDS: guaiFENesin/CODEINE 100mg/10mg 5 ML LIQUID PO PRN ×2 (08:51→21:00)
[2020-10-18] MEDS: IPRATROPIUM/ALBUTEROL 20/100mcg/INH INHALER. INH SCH ×5 (08:51→20:00)
[2020-10-18] MEDS: ASPIRIN ENTERIC COATED 81 MG TABLET.DR. PO SCH (08:51)
[2020-10-18] MEDS: methylPREDNISolone SOD SUCC PF 40 MG/ML VIAL. IV SCH ×2 (08:52→21:00)
[2020-10-18] MEDS: PANTOPRAZOLE 40 MG TABLET.DR. PO SCH (08:52)
[2020-10-18] MEDS: TORSEMIDE 20 MG TABLET. PO SCH (08:52)
[2020-10-18 09:43] LABS: CALCIUM 9.2 mg/dL (8.5-10.1); CREATININE 1.2 mg/dL (0.6-1.0); GFR 44.9; MAGNESIUM 2.1 mg/dL (1.8-2.4); POTASSIUM 4.1 mmol/L (3.5-5.1)
[2020-10-18] MEDS ORDERED: GABA-585 PO (10:12)
--- NOTE | 2020-10-18 10:20 | NUR ---
Spoke with Dr corona this shift regarding restarting 2 of the patients home meds up. Orders given.
[2020-10-18 11:00] VITALS: BP 92/42
--- NOTE | 2020-10-18 11:47 | PDOC ---
[facility] PROGRESS NOTE Date of Service DOS: DATE: 10/18/20 TIME: 11:46 Chief Complaint Chief Complaint Atypical chest pain possible NSTEMI Negative for COVID-19 infection Chronic diastolic CHF Acute COPD exacerbation Hypertension, controlled Dyslipidemia History of nonischemic cardiomyopathy Acute on chronic kidney injuryimproving Continue telemetry monitoring Appreciate cardiology recommendationsresume torsemide, hold Entresto, hold blood pressure medication of blood pressure is marginal Lovenox for DVT prophylaxis Protonix GI prophylaxis ADA diet Full code Discussed with RN and SW Disposition inpatient management as above Surrogate decision maker is Herman Mathur History of Present Illness History of Present Illness 10/18/2020 No acute events overnight. Patient remains afebrile. No complaints voiced at this time. Patient's chart, labs, images were reviewed and discussed with RN 10/17/2020 No acute events overnight. Patient has improved dyspnea and she is saturating well on room air. Complains of some cough and sounds congested on my examination. Will attempt Combivent inhaler before Covid test returns. Patient's chart, labs, images were reviewed and discussed with RN 65-year-old female middle-aged appearing female who has known COPD and coronary artery disease. She presents today with chest pain, rated 7/10, has been occurring for about a week, but it got worse over the past day or two, states her pain is worse with moving, better sitting still. She increased her home meds, but that did not work. I discussed the case with ER physician. We are going to admit the patient and consult Cardiology and treated for COPD exacerbation. Vitals/I&O Vitals/I&O: Vital Signs Date Time Temp Pulse Resp B/P (MAP) Pulse Ox O2 Delivery O2 Flow Rate FiO2 10/18/20 08:51 74 96/54 10/18/20 07:00 97.9 18 97 Nasal Cannula 3.0 97.9 I & O 10/17/20 10/17/20 10/18/20 15:00 23:00 07:00 Intake Total 250 ml 900 ml Balance 250 ml 900 ml Physical Exam General: Alert, Oriented X3, Cooperative, No acute distress Heart: Regular rate (SR), Normal S1, Normal S2 Lungs: Wheezing, Other Abdomen: Soft, No tenderness Extremities: No cyanosis, No edema Skin: No breakdown, No significant lesion Labs Labs: Laboratory Tests Test 10/18/20 09:03 Sodium Level 141 mmol/L (136-145) Potassium Level 4.1 mmol/L (3.5-5.1) Chloride Level 99 mmol/L (98-107) Carbon Dioxide Level 35 mmol/L (21-32) Anion Gap 7 (6-14) Blood Urea Nitrogen 29 mg/dL (7-20) Creatinine 1.2 mg/dL (0.6-1.0) Estimated GFR (Cockcroft-Gault) 44.9 Glucose Level 127 mg/dL (70-99) Calcium Level 9.2 mg/dL (8.5-10.1) Magnesium Level 2.1 mg/dL (1.8-2.4) Assessment and Plan Assessmemt and Plan Problems Medical Problems: (1) Acute exacerbation of chronic obstructive pulmonary disease (COPD) Status: Acute (2) Chest pain, rule out acute myocardial infarction Status: Acute Comment Review of Relevant I have reviewed the following items jon (where applicable) has been applied. Medications: Current Medications Medications (Trade) Dose Ordered Sig/Keshav Route PRN Reason Start Time Stop Time Status Last Admin Dose Admin Torsemide (Demadex) 20 mg DAILY PO 10/17/20 14:00 10/18/20 08:52 Albuterol/ Ipratropium (Combivent Respimat 20-100 Mcg) 1 puff RTQID INH 10/17/20 16:00 10/18/20 08:53 Acetaminophen (Tylenol) 650 mg PRN Q6HRS PRN PO MILD PAIN / TEMP > 100.3'F 10/17/20 15:45 10/17/20 15:47 Justifications for Admission Other Justification BRAYAN RAYMOND MD Oct 18, 2020 11:47
[2020-10-18] MEDS: ROFLUMILAST 500 MCG TABLET. PO SCH (12:28)
[2020-10-18] MEDS: GABAPENTIN 100 MG CAPSULE. PO SCH ×2 (12:28→20:59)
[2020-10-18 15:00] VITALS: BP 93/45
[2020-10-18 19:20] VITALS: BP 116/51
[2020-10-18] MEDS: AMITRIPTYLINE HCL 25 MG TABLET. PO SCH (20:59)
[2020-10-18] MEDS: ATORVASTATIN CALCIUM 20 MG TABLET PO SCH (20:59)
[2020-10-18] MEDS: rOPINIRole 1 MG TABLET. PO SCH (21:00)
[2020-10-18 22:05] VITALS: BP 129/57
[2020-10-19 02:48] VITALS: BP 110/46
[2020-10-19 07:00] VITALS: BP 118/66
[2020-10-19] MEDS: PANTOPRAZOLE 40 MG TABLET.DR. PO SCH (08:56)
[2020-10-19] MEDS: ROFLUMILAST 500 MCG TABLET. PO SCH (08:57)
[2020-10-19] MEDS: METOPROLOL SUCC 24HR ER 25 MG TAB.ER.24H. PO SCH (08:57)
[2020-10-19] MEDS: GABAPENTIN 100 MG CAPSULE. PO SCH ×3 (08:57→21:10)
[2020-10-19] MEDS: methylPREDNISolone SOD SUCC PF 40 MG/ML VIAL. IV SCH ×2 (08:57→21:11)
[2020-10-19] MEDS: ASPIRIN ENTERIC COATED 81 MG TABLET.DR. PO SCH (08:57)
[2020-10-19] MEDS: guaiFENesin/CODEINE 100mg/10mg 5 ML LIQUID PO PRN ×3 (08:57→21:10)
[2020-10-19] MEDS: TORSEMIDE 20 MG TABLET. PO SCH (08:57)
[2020-10-19] MEDS: IPRATROPIUM/ALBUTEROL 20/100mcg/INH INHALER. INH SCH ×4 (09:02→21:10)
--- NOTE | 2020-10-19 09:18 | PDOC ---
[facility] PROGRESS NOTE Date of Service DOS: DATE: 10/19/20 TIME: 09:16 Chief Complaint Chief Complaint Atypical chest pain possible NSTEMI ruled out Negative for COVID-19 infection Chronic diastolic CHF Acute COPD exacerbation Hypertension, controlled Dyslipidemia History of nonischemic cardiomyopathy Acute on chronic kidney injuryimproving Continue telemetry monitoring Appreciate cardiology recommendationsresume torsemide, hold Entresto restarted upon discharge, hold blood pressure medication of blood pressure is marginal Lovenox for DVT prophylaxis Protonix GI prophylaxis ADA diet Full code Discussed with RN and SW Disposition inpatient management as above Surrogate decision maker is Herman Mathur History of Present Illness History of Present Illness 10/19/2020 No acute events overnight. Patient remains afebrile. Saturating 99% on 3 L take nasal cannula. Patient uses oxygen at home at 2 L nasal cannula. May benefit from 6-minute walk test before discharge. Will allow 1 more day before symptomatic improvement as the patient started just feeling better this morning. She wanted to get some more breathing treatments before going home and did not want to get her sick. Patient's chart, labs, images were reviewed and discussed with RN 10/18/2020 No acute events overnight. Patient remains afebrile. No complaints voiced at this time. Patient's chart, labs, images were reviewed and discussed with RN 10/17/2020 No acute events overnight. Patient has improved dyspnea and she is saturating well on room air. Complains of some cough and sounds congested on my examination. Will attempt Combivent inhaler before Covid test returns. Patient's chart, labs, images were reviewed and discussed with RN 65-year-old female middle-aged appearing female who has known COPD and coronary artery disease. She presents today with chest pain, rated 7/10, has been occurring for about a week, but it got worse over the past day or two, states her pain is worse with moving, better sitting still. She increased her home meds, but that did not work. I discussed the case with ER physician. We are going to admit the patient and consult Cardiology and treated for COPD exacerbation. Vitals/I&O Vitals/I&O: Vital Signs Date Time Temp Pulse Resp B/P (MAP) Pulse Ox O2 Delivery O2 Flow Rate FiO2 10/19/20 08:57 65 118/66 10/19/20 07:00 98.5 18 99 Nasal Cannula 3.0 98.5 I & O 10/18/20 10/18/20 10/19/20 15:00 23:00 07:00 Intake Total 700 ml 550 ml 50 ml Balance 700 ml 550 ml 50 ml Physical Exam General: Alert, Oriented X3, Cooperative, No acute distress Heart: Regular rate (SR), Normal S1, Normal S2 Lungs: Wheezing, Other Abdomen: Soft, No tenderness Extremities: No cyanosis, No edema Skin: No breakdown, No significant lesion Assessment and Plan Assessmemt and Plan Problems Medical Problems: (1) Acute exacerbation of chronic obstructive pulmonary disease (COPD) Status: Acute (2) Chest pain, rule out acute myocardial infarction Status: Acute Comment Review of Relevant I have reviewed the following items jon (where applicable) has been applied. Medications: Current Medications Medications (Trade) Dose Ordered Sig/Keshav Route PRN Reason Start Time Stop Time Status Last Admin Dose Admin Roflumilast (Daliresp) 500 mcg DAILY PO 10/18/20 11:00 10/19/20 08:57 Gabapentin (Neurontin) 100 mg TID PO 10/18/20 14:00 10/19/20 08:57 Justifications for Admission Other Justification BRAYAN RAYMOND MD Oct 19, 2020 09:18
[2020-10-19 10:53] VITALS: BP 104/53
[2020-10-19 15:24] VITALS: BP 97/50
[2020-10-19 19:00] VITALS: BP 103/47
--- NOTE | 2020-10-19 19:10 | NUR ---
Assessment completed vss poc explained pt c/o back pain will medicated pt and continue to monitor pt.Call light in reach.
[2020-10-19] MEDS: AMITRIPTYLINE HCL 25 MG TABLET. PO SCH (21:10)
[2020-10-19] MEDS: ATORVASTATIN CALCIUM 20 MG TABLET PO SCH (21:10)
[2020-10-19] MEDS: rOPINIRole 1 MG TABLET. PO SCH (21:10)
[2020-10-19] MEDS: ACETAMINOPHEN 325 MG TABLET. PO PRN (21:10)
[2020-10-19 22:32] VITALS: BP 107/55
[2020-10-20 02:48] VITALS: BP 105/54
[2020-10-20] MEDS: PANTOPRAZOLE 40 MG TABLET.DR. PO SCH (06:12)
[2020-10-20 07:24] VITALS: BP 96/45
--- NOTE | 2020-10-20 08:37 | PDOC ---
[facility] PROGRESS NOTE Date of Service DOS: DATE: 10/20/20 TIME: 08:25 Chief Complaint Chief Complaint Atypical chest pain possible NSTEMI ruled out Negative for COVID-19 infection Chronic diastolic CHF Acute COPD exacerbation Hypertension, controlled Dyslipidemia History of nonischemic cardiomyopathy Acute on chronic kidney injuryimproving Continue telemetry monitoring Appreciate cardiology recommendationsresume torsemide, hold Entresto restarted upon discharge, hold blood pressure medication of blood pressure is marginal Lovenox for DVT prophylaxis Protonix GI prophylaxis ADA diet Full code Discussed with RN and SW Disposition inpatient management as above Surrogate decision maker is Herman Mathur History of Present Illness History of Present Illness Ms Mathur is a 65yo F w/ PMHx PMHx chronic respiratory failure, unknown FEV1, COPD, cardiomyopathy, tobacco dependence, in remission, 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 She also c/o worsening SOB. Admitted for COPD exacerbation, tested negative for COVID 19. 10/17: No acute events overnight. Patient has improved dyspnea and she is saturating well on room air. Complains of some cough and sounds congested on my examination. Will attempt Combivent inhaler before Covid test returns. 10/18: No acute events overnight. Patient remains afebrile. No complaints voiced at this time. Patient's chart, labs, images were reviewed and discussed with RN 10/19: No acute events overnight. Patient remains afebrile. Saturating 99% on 3 L take nasal cannula. Patient uses oxygen at home at 2 L nasal cannula. May benefit from 6-minute walk test before discharge. No overnight events. Still little short of breath this morning. Currently on her home O2. Vitals/I&O Vitals/I&O: Vital Signs Date Time Temp Pulse Resp B/P (MAP) Pulse Ox O2 Delivery O2 Flow Rate FiO2 10/20/20 07:24 97.8 66 18 96/45 (62) 98 Nasal Cannula 3.0 97.8 I & O 10/19/20 10/19/20 10/20/20 14:55 22:55 06:55 Intake Total 600 ml 300 ml Balance 600 ml 300 ml Physical Exam General: Alert, Oriented X3, Cooperative, No acute distress Heart: Regular rate (SR), Normal S1, Normal S2 Lungs: Wheezing, Other Abdomen: Soft, No tenderness Extremities: No cyanosis, No edema Skin: No breakdown, No significant lesion Assessment and Plan Assessmemt and Plan Problems Medical Problems: (1) Acute exacerbation of chronic obstructive pulmonary disease (COPD) Status: Acute (2) Chest pain, rule out acute myocardial infarction Status: Acute Comment Review of Relevant I have reviewed the following items jon (where applicable) has been applied. Justifications for Admission Other Justification PHONG YEBOAH MD Oct 20, 2020 08:37
[2020-10-20] MEDS ORDERED: BUDESONIDE 0.5 MG/2 ML NEBU. NEB ONE (08:45)
[2020-10-20] MEDS ORDERED: ALLOPURINOL 300 MG TABLET. PO SCH (09:00)
[2020-10-20] MEDS ORDERED: BUDESONIDE 0.5 MG/2 ML NEBU. NEB SCH (09:00)
[2020-10-20] MEDS: ROFLUMILAST 500 MCG TABLET. PO SCH (09:22)
[2020-10-20] MEDS: GABAPENTIN 100 MG CAPSULE. PO SCH ×3 (09:22→20:48)
[2020-10-20] MEDS: CHOLECALCIFEROL (VITAMIN D3) 1,000 UNIT TABLET PO SCH (09:22)
[2020-10-20] MEDS: ASPIRIN ENTERIC COATED 81 MG TABLET.DR. PO SCH (09:22)
[2020-10-20] MEDS: predniSONE 20 MG TABLET PO SCH (09:22)
[2020-10-20] MEDS: TORSEMIDE 20 MG TABLET. PO SCH (09:22)
[2020-10-20] MEDS: SACUBITRIL/VALSARTAN 49/51MG TABLET. PO SCH ×2 (09:24→20:47)
[2020-10-20] MEDS: FLUTICASONE 50MCG/NASAL SPRAY 16GM BOTTLE. NS SCH (09:25)
[2020-10-20] MEDS: LEVOTHYROXINE 50 MCG TABLET PO SCH (09:25)
[2020-10-20] MEDS: METOPROLOL SUCC 24HR ER 25 MG TAB.ER.24H. PO SCH (09:25)
[2020-10-20 10:38] VITALS: BP 102/47
[2020-10-20] MEDS ORDERED: fentaNYL PF VIAL 100 MCG/2 ML VIAL IVP ONE (11:00)
[2020-10-20] MEDS: IPRATRPIUM/ALBUTEROL 0.5/2.5MG 3 ML NEBU. NEB SCH ×4 (11:55→19:46)
[2020-10-20] MEDS: ALLOPURINOL 100 MG TABLET. PO SCH (12:13)
[2020-10-20] MEDS: traMADol 50 MG TABLET PO PRN ×2 (12:14→20:48)
--- NOTE | 2020-10-20 14:08 | NUR ---
SS following up with discharge planning. SS reviewed pt chart and discussed with pt RN. Pt is currently requiring oxygen at three liters nasal canula. Pt has home oxygen at two liters. COVID19 negative. PT/OT recommended home with home healthcare. Pt accepted on services with [facility], ; fax [phone]. SS will continue to follow for discharge planning.
[2020-10-20 14:48] VITALS: BP 96/46
[2020-10-20 18:43] VITALS: BP 98/46
--- NOTE | 2020-10-20 19:30 | NUR ---
Pt in bed assessment completed vss poc explained pt c/o pain to back will medicate pt and resume care.
[2020-10-20] MEDS: BUDESONIDE 0.5 MG/2 ML NEBU. NEB SCH (19:46)
[2020-10-20] MEDS: rOPINIRole 1 MG TABLET. PO SCH (20:45)
[2020-10-20] MEDS: ATORVASTATIN CALCIUM 20 MG TABLET PO SCH (20:48)
[2020-10-20] MEDS: MONTELUKAST SODIUM 10 MG TABLET. PO SCH (20:48)
[2020-10-20] MEDS: AMITRIPTYLINE HCL 25 MG TABLET. PO SCH (20:48)
[2020-10-20] MEDS: guaiFENesin/CODEINE 100mg/10mg 5 ML LIQUID PO PRN (20:49)
[2020-10-20 22:43] VITALS: BP 92/44
[2020-10-21 02:59] VITALS: BP 92/48
[2020-10-21] MEDS: PANTOPRAZOLE 40 MG TABLET.DR. PO SCH (06:00)
[2020-10-21 07:00] VITALS: BP 91/41
--- NOTE | 2020-10-21 07:21 | PDOC ---
[facility] PROGRESS NOTE Date of Service DOS: DATE: 10/21/20 TIME: 07:18 Chief Complaint Chief Complaint Atypical chest pain possible NSTEMI ruled out Negative for COVID-19 infection Chronic diastolic CHF Acute COPD exacerbation Hypertension, controlled Dyslipidemia History of nonischemic cardiomyopathy Acute on chronic kidney injuryimproving Continue telemetry monitoring Appreciate cardiology recommendationsresume torsemide, hold Entresto restarted upon discharge, hold blood pressure medication of blood pressure is marginal Lovenox for DVT prophylaxis Protonix GI prophylaxis ADA diet Full code Discussed with RN and SW Disposition inpatient management as above Surrogate decision maker is Herman Mathur History of Present Illness History of Present Illness Ms Mathur is a 65yo F w/ PMHx PMHx chronic respiratory failure, unknown FEV1, COPD, cardiomyopathy, tobacco dependence, in remission, 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 She also c/o worsening SOB. Admitted for COPD exacerbation, tested negative for COVID 19. 10/17: No acute events overnight. Patient has improved dyspnea and she is saturating well on room air. Complains of some cough and sounds congested on my examination. 10/18: No acute events overnight. Patient remains afebrile. No complaints voiced at this time. Patient's chart, labs, images were reviewed and discussed with RN 10/19: No acute events overnight. Patient remains afebrile. Saturating 99% on 3 L take nasal cannula. Patient uses oxygen at home at 2 L nasal cannula. 10/20: No overnight events. Still little short of breath this morning. Currently on 3L, her home O2 is 2L. Having some significant back pain. Afebrile. C/o back pain and headache today that are severe. Still very short of breath with coarse rhonchi. Vitals/I&O Vitals/I&O: Vital Signs Date Time Temp Pulse Resp B/P (MAP) Pulse Ox O2 Delivery O2 Flow Rate FiO2 10/21/20 02:59 97.7 64 16 92/48 (63) 100 Nasal Cannula 3.0 97.7 I & O 10/20/20 10/20/20 10/21/20 15:00 23:00 07:00 Intake Total 840 ml 300 ml 330 ml Balance 840 ml 300 ml 330 ml Physical Exam General: Alert, Oriented X3, Cooperative, No acute distress Heart: Regular rate (SR), Normal S1, Normal S2 Lungs: Wheezing, Other Abdomen: Soft, No tenderness Extremities: No cyanosis, No edema Skin: No breakdown, No significant lesion Assessment and Plan Assessmemt and Plan Problems Medical Problems: (1) Acute exacerbation of chronic obstructive pulmonary disease (COPD) Status: Acute (2) Chest pain, rule out acute myocardial infarction Status: Acute Comment Review of Relevant I have reviewed the following items jon (where applicable) has been applied. Medications: Current Medications Medications (Trade) Dose Ordered Sig/Keshav Route PRN Reason Start Time Stop Time Status Last Admin Dose Admin Vitamin D (Vitamin D3) 1,000 unit DAILY PO 10/20/20 09:00 10/20/20 09:22 Fluticasone Propionate (Flonase) 2 spray DAILY NS 10/20/20 09:00 10/20/20 09:25 Levothyroxine Sodium (Synthroid) 50 mcg DAILY PO 10/20/20 10:30 10/20/20 09:25 Montelukast Sodium (Singulair) 10 mg HS PO 10/20/20 21:00 10/20/20 20:48 Sacubitril/ Valsartan (Entresto 49 Mg-51 Mg) 1 tab BID PO 10/20/20 09:00 10/20/20 09:24 Prednisone (Prednisone) 20 mg DAILY PO 10/20/20 09:00 10/20/20 09:22 Albuterol/ Ipratropium (Duoneb) 3 ml RTQID NEB 10/20/20 09:00 10/20/20 19:46 Budesonide (Pulmicort) 0.5 mg 1X ONCE NEB 10/20/20 08:45 10/20/20 09:03 DC 10/20/20 11:55 Budesonide (Pulmicort) 0.5 mg RTBID NEB 10/20/20 20:00 10/20/20 19:46 Tramadol HCl (Ultram) 50 mg PRN Q6HRS PRN PO MILD TO MODERATE PAIN 10/20/20 11:00 10/20/20 20:48 Allopurinol (Zyloprim) 100 mg DAILY PO 10/20/20 12:00 10/20/20 12:13 Fentanyl Citrate (Fentanyl 2ml Vial) 50 mcg 1X ONCE IVP 10/20/20 11:00 10/20/20 11:13 DC 10/20/20 12:15 Justifications for Admission Other Justification PHONG YEBOAH MD Oct 21, 2020 07:21
[2020-10-21] MEDS: BUDESONIDE 0.5 MG/2 ML NEBU. NEB SCH ×2 (07:45→21:24)
[2020-10-21] MEDS: IPRATRPIUM/ALBUTEROL 0.5/2.5MG 3 ML NEBU. NEB SCH ×4 (07:45→21:24)
[2020-10-21] MEDS: METOPROLOL SUCC 24HR ER 25 MG TAB.ER.24H. PO SCH (09:00)
[2020-10-21] MEDS ORDERED: PROCHLORPERAZINE 10 MG/2 ML VIAL. IV ONE (09:00)
[2020-10-21] MEDS: CHOLECALCIFEROL (VITAMIN D3) 1,000 UNIT TABLET PO SCH (09:06)
[2020-10-21] MEDS: ASPIRIN ENTERIC COATED 81 MG TABLET.DR. PO SCH (09:06)
[2020-10-21] MEDS: CETIRIZINE HCL 10 MG TABLET. PO SCH (09:06)
[2020-10-21] MEDS: ROFLUMILAST 500 MCG TABLET. PO SCH (09:06)
[2020-10-21] MEDS: ALLOPURINOL 100 MG TABLET. PO SCH (09:07)
[2020-10-21] MEDS: TORSEMIDE 20 MG TABLET. PO SCH (09:07)
[2020-10-21] MEDS: GABAPENTIN 100 MG CAPSULE. PO SCH ×3 (09:07→20:40)
[2020-10-21] MEDS: SACUBITRIL/VALSARTAN 49/51MG TABLET. PO SCH ×2 (09:07→20:40)
[2020-10-21] MEDS: traMADol 50 MG TABLET PO PRN ×2 (09:07→20:41)
[2020-10-21] MEDS: guaiFENesin/CODEINE 100mg/10mg 5 ML LIQUID PO PRN (09:08)
[2020-10-21] MEDS: predniSONE 20 MG TABLET PO SCH (09:08)
[2020-10-21] MEDS: FLUTICASONE 50MCG/NASAL SPRAY 16GM BOTTLE. NS SCH (09:08)
[2020-10-21] MEDS: LEVOTHYROXINE 50 MCG TABLET PO SCH (09:15)
[2020-10-21 11:00] VITALS: BP 93/50
[2020-10-21] MEDS: methylPREDNISolone SOD SUCC PF 40 MG/ML VIAL. IV SCH ×2 (15:05→20:41)
[2020-10-21 15:15] VITALS: BP 117/75
[2020-10-21 19:20] VITALS: BP 134/62
[2020-10-21] MEDS: AMITRIPTYLINE HCL 25 MG TABLET. PO SCH (20:40)
[2020-10-21] MEDS: rOPINIRole 1 MG TABLET. PO SCH (20:40)
[2020-10-21] MEDS: MONTELUKAST SODIUM 10 MG TABLET. PO SCH (20:40)
[2020-10-21] MEDS: ATORVASTATIN CALCIUM 20 MG TABLET PO SCH (20:40)
[2020-10-21 22:24] VITALS: BP 118/43
[2020-10-22] MEDS: METOPROLOL SUCC 24HR ER 25 MG TAB.ER.24H. PO SCH ×2 (00:38→09:28)
[2020-10-22 02:30] VITALS: BP 135/51
[2020-10-22] MEDS: traMADol 50 MG TABLET PO PRN ×2 (03:14→20:33)
[2020-10-22] MEDS: guaiFENesin/CODEINE 100mg/10mg 5 ML LIQUID PO PRN ×2 (03:14→20:32)
[2020-10-22] MEDS: methylPREDNISolone SOD SUCC PF 40 MG/ML VIAL. IV SCH ×3 (06:17→20:32)
[2020-10-22 07:00] VITALS: BP 120/61
--- NOTE | 2020-10-22 08:05 | PDOC ---
[facility] PROGRESS NOTE Date of Service DOS: DATE: 10/22/20 TIME: 08:05 Chief Complaint Chief Complaint Atypical chest pain possible NSTEMI ruled out Negative for COVID-19 infection Chronic diastolic CHF Acute COPD exacerbation Hypertension, controlled Dyslipidemia History of nonischemic cardiomyopathy Acute on chronic kidney injuryimproving Continue telemetry monitoring Appreciate cardiology recommendationsresume torsemide, hold Entresto restarted upon discharge, hold blood pressure medication of blood pressure is marginal Lovenox for DVT prophylaxis Protonix GI prophylaxis ADA diet Full code Discussed with RN and SW Disposition inpatient management as above Surrogate decision maker is Herman Mathur History of Present Illness History of Present Illness Ms Mathur is a 65yo F w/ PMHx PMHx chronic respiratory failure, unknown FEV1, COPD, cardiomyopathy, tobacco dependence, in remission, 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 She also c/o worsening SOB. Admitted for COPD exacerbation, tested negative for COVID 19. 10/17: No acute events overnight. Patient has improved dyspnea and she is saturating well on room air. Complains of some cough and sounds congested on my examination. 10/18: No acute events overnight. Patient remains afebrile. No complaints voiced at this time. Patient's chart, labs, images were reviewed and discussed with RN 10/19: No acute events overnight. Patient remains afebrile. Saturating 99% on 3 L take nasal cannula. Patient uses oxygen at home at 2 L nasal cannula. 10/20: No overnight events. Still little short of breath this morning. Currently on 3L, her home O2 is 2L. Having some significant back pain. 10/21: Afebrile. C/o back pain and headache today that are severe. Still very short of breath with coarse rhonchi. Restarted IV steroids. Afebrile. Plan she did not sleep at all last night very short of breath with mi nimal exertion. At rest her breathing is much easier today than today lung sounds better. Vitals/I&O Vitals/I&O: Vital Signs Date Time Temp Pulse Resp B/P (MAP) Pulse Ox O2 Delivery O2 Flow Rate FiO2 10/22/20 04:14 20 98 Nasal Cannula 3.0 1/20/21 02:30 98.8 92 135/51 (79) 98.8 I & O 10/21/20 10/21/20 10/22/20 15:00 23:00 07:00 Intake Total 360 ml 1500 ml 100 ml Balance 360 ml 1500 ml 100 ml Physical Exam General: Alert, Oriented X3, Cooperative, No acute distress Heart: Regular rate (SR), Normal S1, Normal S2 Lungs: Wheezing, Other Abdomen: Soft, No tenderness Extremities: No cyanosis, No edema Skin: No breakdown, No significant lesion Labs Labs: Laboratory Tests Test 10/21/20 11:54 Glucose (Fingerstick) 142 mg/dL (70-99) Assessment and Plan Assessmemt and Plan Problems Medical Problems: (1) Acute exacerbation of chronic obstructive pulmonary disease (COPD) Status: Acute (2) Chest pain, rule out acute myocardial infarction Status: Acute Comment Review of Relevant I have reviewed the following items jon (where applicable) has been applied. Medications: Current Medications Medications (Trade) Dose Ordered Sig/Keshav Route PRN Reason Start Time Stop Time Status Last Admin Dose Admin Cetirizine HCl (ZyrTEC) 10 mg DAILY PO 10/21/20 09:00 10/21/20 09:06 Prochlorperazine Edisylate (Compazine) 10 mg 1X ONCE IV 10/21/20 09:00 10/21/20 09:01 DC 10/21/20 09:08 Methylprednisolone Sodium Succinate (SOLU-Medrol 40MG VIAL) 40 mg Q8HRS IV 10/21/20 14:00 10/22/20 06:17 Justifications for Admission Other Justification PHONG YEBOAH MD Oct 22, 2020 08:05
[2020-10-22] MEDS: BUDESONIDE 0.5 MG/2 ML NEBU. NEB SCH ×2 (08:39→20:43)
[2020-10-22] MEDS: IPRATRPIUM/ALBUTEROL 0.5/2.5MG 3 ML NEBU. NEB SCH ×4 (08:39→20:43)
[2020-10-22] MEDS: CETIRIZINE HCL 10 MG TABLET. PO SCH (09:27)
[2020-10-22] MEDS: ASPIRIN ENTERIC COATED 81 MG TABLET.DR. PO SCH (09:27)
[2020-10-22] MEDS: LEVOTHYROXINE 50 MCG TABLET PO SCH (09:27)
[2020-10-22] MEDS: GABAPENTIN 100 MG CAPSULE. PO SCH ×3 (09:27→20:32)
[2020-10-22] MEDS: PANTOPRAZOLE 40 MG TABLET.DR. PO SCH (09:27)
[2020-10-22] MEDS: ALLOPURINOL 100 MG TABLET. PO SCH (09:27)
[2020-10-22] MEDS: FLUTICASONE 50MCG/NASAL SPRAY 16GM BOTTLE. NS SCH (09:28)
[2020-10-22] MEDS: ROFLUMILAST 500 MCG TABLET. PO SCH (09:28)
[2020-10-22] MEDS: SACUBITRIL/VALSARTAN 49/51MG TABLET. PO SCH ×2 (09:28→20:32)
[2020-10-22] MEDS: CHOLECALCIFEROL (VITAMIN D3) 1,000 UNIT TABLET PO SCH (09:28)
[2020-10-22] MEDS: TORSEMIDE 20 MG TABLET. PO SCH (09:28)
[2020-10-22 11:00] VITALS: BP 129/58
[2020-10-22] MEDS ORDERED: FUROSEMIDE 20 MG/2 ML VIAL. IVP ONE ×2 (11:30→16:15)
[2020-10-22 11:35] LABS: CREATININE 1.5 mg/dL (0.6-1.0); GFR 34.7; MAGNESIUM 2.3 mg/dL (1.8-2.4); POTASSIUM 4.6 mmol/L (3.5-5.1)
--- NOTE | 2020-10-22 11:50 | CONS ---
DATE OF CONSULTATION: PULMONARY CONSULTATION ATTENDING PHYSICIAN: Dr. Abbasi. REASON FOR CONSULTATION: Dyspnea, persistent bronchospasm. HISTORY OF PRESENT ILLNESS: The patient is a 65-year-old female with history of COPD. She smoked for about 35 years before quitting a year and half ago. She has history of cardiomyopathy. She was brought into the hospital with complaint of shortness of breath and a cough, which has been nonproductive. No fever, no chills, no chest pains. The patient was noted to have a mild cephalization of vessels on initial chest x-ray. She is currently on steroids IV and also Pulmicort nebulizer along with DuoNebs. However, she still has wheezing, as a result discharge has been withheld. I have been asked to see her for further evaluation. PAST MEDICAL HISTORY: Significant for COPD, suspect severe, history of cardiomyopathy, nonischemic, history of chronic diastolic congestive heart failure, history of CKD. History of non-STEMI, COVID-19 negative. PAST SURGICAL HISTORY: No recent surgeries. ALLERGIES: IBUPROFEN, NAPROXEN, PIPERACILLIN AND TAZOBACTAM. MEDICATIONS: Reviewed as listed in the MRAD. REVIEW OF SYSTEMS: Twelve-point system obtained. Pertinent positives discussed in my history of present illness, otherwise noncontributory. All systems that were negative were reviewed as well. FAMILY HISTORY: Noncontributory to lungs. PHYSICAL EXAMINATION: VITAL SIGNS: Reviewed. She is currently on 3 liters. HEENT: Sclerae nonicteric. NECK: Supple. LUNGS: With wheezing bilaterally. CARDIOVASCULAR: With a regular rate. ABDOMEN: Soft, nontender. EXTREMITIES: With no pitting edema. IMAGING AND LAB DATA: Last echo had an EF of 50%. Chest x-ray with mild cephalization of vessels. Last cardiac cath had reportedly had increased left ventricular end-diastolic pressure. Labs were reviewed. Her COVID test is negative. BUN is 29, creatinine 1.2. White cell count 7.5. IMPRESSION: 1. Acute hypoxic respiratory failure with persistent bronchospasm. Likely related to combination of acute exacerbation of chronic obstructive pulmonary disease and acute on chronic diastolic heart failure. 2. Persistent bronchospasm, likely contributed by diastolic heart failure. Her chest x-ray had some mild cephalization of vessels. 3. Underlying chronic obstructive pulmonary disease, could be severe. Her FEV1 is unknown. RECOMMENDATIONS: 1. At this point, the patient would benefit from an extra IV Lasix. She is on furosemide oral. 2. Continue with IV Solu-Medrol along with Pulmicort and DuoNebs. 3. We will repeat chest x-ray to see any worsening CHF. 4. Continue with metoprolol at low dose for now. However, if bronchospasm persists, we may have to hold it for 24 hours. 5. Discussed with RN and we will follow along with you. IMELDA EASTMAN MD DR: MARTÍN/lisa JOB#: [id number] / [id number]
[2020-10-22 15:00] VITALS: BP 117/51
--- NOTE | 2020-10-22 15:01 | RAD ---
XR CHEST 1V INDICATION: CHF / Spl. Instructions: / History: . COMPARISON STUDY: 10/15/2020. FINDINGS: Life Support Devices: Left pectoral ICD/pacemaker. Lungs: Low lung volume. No confluent consolidation. Persistent mild interstitial prominence. Pleura: No pleural effusion or pneumothorax. Heart and Mediastinum: Stable cardiomediastinal silhouette and great vessels. Bones and Soft Tissues: Stable regional skeleton and soft tissues. IMPRESSION: Persistent mild interstitial prominence. No confluent consolidation. Electronically signed by: Randell Atkins MD (10/22/2020 2:59 PM) [id number]
[2020-10-22 19:39] VITALS: BP 113/49
[2020-10-22] MEDS: AMITRIPTYLINE HCL 25 MG TABLET. PO SCH (20:31)
[2020-10-22] MEDS: ATORVASTATIN CALCIUM 20 MG TABLET PO SCH (20:32)
[2020-10-22] MEDS: MONTELUKAST SODIUM 10 MG TABLET. PO SCH (20:32)
[2020-10-22] MEDS: rOPINIRole 1 MG TABLET. PO SCH (20:32)
[2020-10-22 22:35] VITALS: BP 115/48
[2020-10-23 02:23] VITALS: BP 124/56
[2020-10-23] MEDS: guaiFENesin/CODEINE 100mg/10mg 5 ML LIQUID PO PRN ×2 (02:27→21:18)
[2020-10-23] MEDS: traMADol 50 MG TABLET PO PRN ×2 (02:27→21:18)
[2020-10-23] MEDS: methylPREDNISolone SOD SUCC PF 40 MG/ML VIAL. IV SCH ×3 (06:21→21:19)
[2020-10-23 07:00] VITALS: BP 143/61
[2020-10-23 07:20] LABS: BLOOD UREA NITROGEN 33 mg/dL (7-20); CARBON DIOXIDE 41 mmol/L (21-32); CHLORIDE 98 mmol/L (98-107); CREATININE 1.1 mg/dL (0.6-1.0); GFR 49.7; GLUCOSE 172 mg/dL (70-99); MAGNESIUM 2.5 mg/dL (1.8-2.4); POTASSIUM 5.5 mmol/L (3.5-5.1); SODIUM 137 mmol/L (136-145)
--- NOTE | 2020-10-23 07:38 | PDOC ---
[facility] PROGRESS NOTE Date of Service DOS: DATE: 10/23/20 TIME: 07:37 Chief Complaint Chief Complaint A/P: Acute COPD exacerbation Acute on chronic hypoxic respiratory failure Atypical chest pain possible NSTEMI ruled out Negative for COVID-19 infection Acute on Chronic diastolic CHF Hypertension, controlled Dyslipidemia History of nonischemic cardiomyopathy Acute on chronic kidney injuryimproving Continue telemetry monitoring Appreciate cardiology recommendationsresume torsemide, hold Entresto restarted upon discharge, hold blood pressure medication of blood pressure is marginal Lovenox for DVT prophylaxis Protonix GI prophylaxis ADA diet Full code Discussed with RN and SW Disposition inpatient management as above Surrogate decision maker is Herman Mathur History of Present Illness History of Present Illness Ms Mathur is a 65yo F w/ PMHx PMHx chronic respiratory failure, unknown FEV1, COPD, cardiomyopathy, tobacco dependence, in remission, 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 She also c/o worsening SOB. Admitted for COPD exacerbation, tested negative for COVID 19. 10/17: No acute events overnight. Patient has improved dyspnea and she is saturating well on room air. Complains of some cough and sounds congested on my examination. 10/18: No acute events overnight. Patient remains afebrile. No complaints voiced at this time. Patient's chart, labs, images were reviewed and discussed with RN 10/19: No acute events overnight. Patient remains afebrile. Saturating 99% on 3 L take nasal cannula. Patient uses oxygen at home at 2 L nasal cannula. 10/20: No overnight events. Still little short of breath this morning. Currently on 3L, her home O2 is 2L. Having some significant back pain. 10/21: Afebrile. C/o back pain and headache today that are severe. Still very short of breath with coarse rhonchi. Restarted IV steroids. 10/22: Afebrile. Plan she did not sleep at all last night very short of breath with minimal exertion. Pulm consulted, lasix IV x2 administered. Afebrile. K5.5. At rest her breathing is much easier today than today lung sounds better. Plan: Hold entresto today PO torsemide F/u pulm and cardiology recs, seems ready for d/c in next 24 hours Vitals/I&O Vitals/I&O: Vital Signs Date Time Temp Pulse Resp B/P (MAP) Pulse Ox O2 Delivery O2 Flow Rate FiO2 10/23/20 03:27 20 97 Nasal Cannula 3.0 10/23/20 02:23 98.6 99 124/56 (78) 98.6 I & O 10/22/20 10/22/20 10/23/20 15:00 23:00 07:00 Intake Total 550 ml 520 ml 650 ml Balance 550 ml 520 ml 650 ml Physical Exam General: Alert, Oriented X3, Cooperative, No acute distress Heart: Regular rate (SR), Normal S1, Normal S2 Lungs: Wheezing, Other Abdomen: Soft, No tenderness Extremities: No cyanosis, No edema Skin: No breakdown, No significant lesion Labs Labs: Laboratory Tests Test 10/22/20 10:55 10/23/20 06:53 Sodium Level 137 mmol/L (136-145) 137 mmol/L (136-145) Potassium Level 4.6 mmol/L (3.5-5.1) 5.5 mmol/L (3.5-5.1) Chloride Level 98 mmol/L (98-107) 98 mmol/L (98-107) Carbon Dioxide Level 32 mmol/L (21-32) 41 mmol/L (21-32) Anion Gap 7 (6-14) (6-14) Blood Urea Nitrogen 31 mg/dL (7-20) 33 mg/dL (7-20) Creatinine 1.5 mg/dL (0.6-1.0) 1.1 mg/dL (0.6-1.0) Estimated GFR (Cockcroft-Gault) 34.7 49.7 Glucose Level 359 mg/dL (70-99) 172 mg/dL (70-99) Calcium Level 9.0 mg/dL (8.5-10.1) 9.0 mg/dL (8.5-10.1) Magnesium Level 2.3 mg/dL (1.8-2.4) 2.5 mg/dL (1.8-2.4) Assessment and Plan Assessmemt and Plan Problems Medical Problems: (1) Acute exacerbation of chronic obstructive pulmonary disease (COPD) Status: Acute (2) Chest pain, rule out acute myocardial infarction Status: Acute Comment Review of Relevant I have reviewed the following items jon (where applicable) has been applied. Medications: Current Medications Medications (Trade) Dose Ordered Sig/Keshav Route PRN Reason Start Time Stop Time Status Last Admin Dose Admin Furosemide (Lasix) 20 mg 1X ONCE IVP 10/22/20 11:30 10/22/20 11:31 DC 10/22/20 11:49 Furosemide (Lasix) 20 mg 1X ONCE IVP 10/22/20 16:15 10/22/20 16:16 DC 10/22/20 17:38 Justifications for Admission Other Justification PHONG YEBOAH MD Oct 23, 2020 07:38
[2020-10-23] MEDS: IPRATRPIUM/ALBUTEROL 0.5/2.5MG 3 ML NEBU. NEB SCH ×4 (07:44→20:18)
[2020-10-23] MEDS: BUDESONIDE 0.5 MG/2 ML NEBU. NEB SCH ×2 (07:44→20:18)
[2020-10-23] MEDS ORDERED: DEXTROSE 50% 25 GM / 50ML DISP.SYRIN. IV PRN (07:45)
[2020-10-23] MEDS: INSULIN LISPRO 300 UNITS/3 ML VIAL. SQ SCH ×3 (08:00→17:13)
[2020-10-23] MEDS: CHOLECALCIFEROL (VITAMIN D3) 1,000 UNIT TABLET PO SCH (08:19)
[2020-10-23] MEDS: CETIRIZINE HCL 10 MG TABLET. PO SCH (08:19)
[2020-10-23] MEDS: ASPIRIN ENTERIC COATED 81 MG TABLET.DR. PO SCH (08:19)
[2020-10-23] MEDS: GABAPENTIN 100 MG CAPSULE. PO SCH ×3 (08:19→21:18)
[2020-10-23] MEDS: ALLOPURINOL 100 MG TABLET. PO SCH (08:20)
[2020-10-23] MEDS: FLUTICASONE 50MCG/NASAL SPRAY 16GM BOTTLE. NS SCH (08:20)
[2020-10-23] MEDS: LEVOTHYROXINE 50 MCG TABLET PO SCH (08:20)
[2020-10-23] MEDS: ROFLUMILAST 500 MCG TABLET. PO SCH (08:20)
[2020-10-23] MEDS: PANTOPRAZOLE 40 MG TABLET.DR. PO SCH (08:20)
[2020-10-23] MEDS: TORSEMIDE 20 MG TABLET. PO SCH (08:20)
--- NOTE | 2020-10-23 10:11 | PDOC ---
PULMONARY PROGRESS NOTES DATE: 10/23/20 TIME: 10:07 Subjective Pt. is resting on 3 liters N/C reports SOB, and cough Improvement of wheezing Vitals Vital Signs Date Time Temp Pulse Resp B/P (MAP) Pulse Ox O2 Delivery O2 Flow Rate FiO2 10/23/20 08:00 Nasal Cannula 3.0 10/23/20 07:00 97.1 68 20 143/61 (88) 100 97.1 ROS: No Nausea, No Chest Pain, No Abdominal Pain General: Alert, Oriented X4, No acute distress HEENT: Other Lungs: Wheezing, Other Cardiovascular: S1, S2 Abdomen: Soft, Non-tender Neuro Exam: Alert, Oriented Extremities: No Edema Labs Laboratory Tests Test 10/21/20 11:54 10/22/20 10:55 10/23/20 06:53 Glucose (Fingerstick) 142 mg/dL (70-99) Sodium Level 137 mmol/L (136-145) 137 mmol/L (136-145) Potassium Level 4.6 mmol/L (3.5-5.1) 5.5 mmol/L (3.5-5.1) Chloride Level 98 mmol/L (98-107) 98 mmol/L (98-107) Carbon Dioxide Level 32 mmol/L (21-32) 41 mmol/L (21-32) Anion Gap 7 (6-14) (6-14) Blood Urea Nitrogen 31 mg/dL (7-20) 33 mg/dL (7-20) Creatinine 1.5 mg/dL (0.6-1.0) 1.1 mg/dL (0.6-1.0) Estimated GFR (Cockcroft-Gault) 34.7 49.7 Glucose Level 359 mg/dL (70-99) 172 mg/dL (70-99) Calcium Level 9.0 mg/dL (8.5-10.1) 9.0 mg/dL (8.5-10.1) Magnesium Level 2.3 mg/dL (1.8-2.4) 2.5 mg/dL (1.8-2.4) Laboratory Tests Test 10/22/20 10:55 10/23/20 06:53 Sodium Level 137 mmol/L (136-145) 137 mmol/L (136-145) Potassium Level 4.6 mmol/L (3.5-5.1) 5.5 mmol/L (3.5-5.1) Chloride Level 98 mmol/L (98-107) 98 mmol/L (98-107) Carbon Dioxide Level 32 mmol/L (21-32) 41 mmol/L (21-32) Anion Gap 7 (6-14) (6-14) Blood Urea Nitrogen 31 mg/dL (7-20) 33 mg/dL (7-20) Creatinine 1.5 mg/dL (0.6-1.0) 1.1 mg/dL (0.6-1.0) Estimated GFR (Cockcroft-Gault) 34.7 49.7 Glucose Level 359 mg/dL (70-99) 172 mg/dL (70-99) Calcium Level 9.0 mg/dL (8.5-10.1) 9.0 mg/dL (8.5-10.1) Magnesium Level 2.3 mg/dL (1.8-2.4) 2.5 mg/dL (1.8-2.4) Medications Active Scripts Medications Dose Route/Sig Max Daily Dose Days Date Category Gabapentin (Gabapentin) 100 Mg Capsule 100 Mg PO TID 10/18/20 Reported Alendronate Sodium 70 Mg Tablet 1 Tab PO WEEKLY 10/16/20 Reported Fluticasone Propionate Nasal Mobile (Fluticasone Propionate) 16 Gm Mobile.susp 2 Mobile NS DAILY 10/16/20 Reported Allopurinol 300 Mg Tablet 1 Tab PO DAILY 10/16/20 Reported Prednisone 20 Mg Tablet 1 Tab PO BID 10/16/20 Reported Doxycycline Hyclate 100 Mg Tablet 1 Tab PO BID 05/16/20 Rx Trelegy Ellipta 100-62.5-25 (Fluticasone/Umeclidin/Vilanter) 1 Each Blst.w.dev 1 Each IH DAILY 03/17/20 Reported Prilosec Otc (Omeprazole Magnesium) 20 Mg Tablet.dr 40 Mg PO DAILY 03/17/20 Reported Duoneb 0.5-3(2.5) Mg/3 Ml (Albuterol/Ipratropium) 3 Ml Ampul.neb 3 Ml NEB Q4HRS 14 10/22/19 Rx Entresto 49 mg-51 mg Tablet (Sacubitril/Valsartan) 1 Each Tablet 49-51 Mg PO BID 07/30/19 Reported K-Tab ER (Potassium Chloride) 20 Meq Tablet.er 20 Meq PO DAILY 07/30/19 Reported Montelukast Sodium Tablet (Montelukast Sodium) 10 Mg Tablet 10 Mg PO HS 07/29/19 Reported Levocetirizine Dihydrochloride 5 Mg Tablet 5 Mg PO DAILY 07/29/19 Reported Amitriptyline Hcl 25 Mg Tablet 25 Mg PO QHS 07/29/19 Reported Tylenol (Acetaminophen) 325 Mg Tablet 650 Mg PO PRN Q4HRS PRN 07/29/19 Reported Aspir 81 (Aspirin) 81 Mg Tablet.dr 1 Tab PO DAILY 01/03/18 Reported Metoprolol Succinate ( Xl ) (Metoprolol Succinate) 25 Mg Tab.er.24h 25 Mg PO DAILY 01/03/18 Reported Vitamin D3 (Cholecalciferol (Vitamin D3)) 1,000 Unit Tablet 1 Tab PO DAILY 01/02/18 Reported Torsemide 20 Mg Tablet 1 Tab PO DAILY 01/02/18 Reported Daliresp (Roflumilast) 500 Mcg Tablet 1 Tab PO DAILY 09/23/17 Reported Atorvastatin Calcium 20 Mg Tablet 20 Mg PO HS 09/23/17 Reported Requip (Ropinirole Hcl) 1 Mg Tablet 3 Tab PO QHS 09/23/17 Reported Proair Hfa Inhaler (Albuterol Sulfate) 8.5 Gm Hfa.aer.ad 1 Puff INH PRN Q6HRS PRN 09/23/17 Reported Levothyroxine Sodium 50 Mcg Tablet 1 Tab PO DAILY 09/23/17 Reported Comments CXR IMPRESSION: Persistent mild interstitial prominence. No confluent consolidation. Impression . IMPRESSION: 1. Acute hypoxic respiratory failure with persistent bronchospasm. Likely related to combination of acute exacerbation of chronic obstructive pulmonary disease and acute on chronic diastolic heart failure. 2. Persistent bronchospasm, likely contributed by diastolic heart failure. Her chest x-ray had some mild cephalization of vessels. 3. Underlying chronic obstructive pulmonary disease, could be severe. Her FEV1 is unknown. Plan . RECOMMENDATIONS: Continue supplemental oxygen, on 2 liters N/C Give additional lasix today Continue IV Solu-Medrol along with Pulmicort and DuoNebs ok to restart her beta-herberth Monitor renal function and KCL DVT/GI PPX D/W RN and IMELDA Sanchez MD Oct 23, 2020 10:11
[2020-10-23] MEDS ORDERED: FUROSEMIDE 40 MG/4 ML VIAL. IVP ONE (10:15)
[2020-10-23 10:56] VITALS: BP 131/50
--- NOTE | 2020-10-23 12:14 | NUR ---
SS following up with discharge planning. SS reviewed pt chart and discussed with pt RN. Pt is currently requiring oxygen at three liters nasal canula. Pt has home oxygen. COVID19 negative. Pt continuing to report shortness of air on oxygen. Pt given Lasix today. Pulmonology following. PT/OT recommended home with home healthcare. Pt accepted on services with [facility], ; fax [phone]. SS will continue to follow for discharge planning.
--- NOTE | 2020-10-23 13:26 | PDOC ---
KJ LORA GEOSPATIAL SPECIALIST 10/23/20 1326: CARDIO Progress Notes Date and Time Date of Service 10/23/2020 Time of Evaluation 1140 Subjective Subjective: No Chest Pain, No Palpitations, Other (still has some SOA) Vitals Vitals Vital Signs Date Time Temp Pulse Resp B/P (MAP) Pulse Ox O2 Delivery O2 Flow Rate FiO2 10/23/20 11:00 Nasal Cannula 3.0 10/23/20 10:56 98.9 96 18 131/50 (77) 98 98.9 Weight Weight [ ] Input and Output Intake and Output Intake and Output 10/23/20 07:00 Intake Total 1720 ml Balance 1720 ml Intake Oral 1720 ml # Voids 4 Laboratory Labs Laboratory Tests Test 10/23/20 06:53 10/23/20 11:56 Sodium Level 137 mmol/L (136-145) Potassium Level 5.5 mmol/L (3.5-5.1) Chloride Level 98 mmol/L (98-107) Carbon Dioxide Level 41 mmol/L (21-32) Anion Gap (6-14) Blood Urea Nitrogen 33 mg/dL (7-20) Creatinine 1.1 mg/dL (0.6-1.0) Estimated GFR (Cockcroft-Gault) 49.7 Glucose Level 172 mg/dL (70-99) Calcium Level 9.0 mg/dL (8.5-10.1) Magnesium Level 2.5 mg/dL (1.8-2.4) Glucose (Fingerstick) 287 mg/dL (70-99) Physical Exam HEENT: Neck Supple W Full Motion Chest: Symmetric LUNGS: Clear to Auscultation (no further wheeze) Heart: RRR (SR with intermittent pacing) Abdomen: Soft N/T Extremities: No Edema, No Calf Tenderness Neurology: alert, oriented, follow commands Assessment Assessment 1. Atypical chest pain: possibly from bronchospasm. Significant workup last yr including MPI and LHC with no significant CAD 2. Mild acute on chronic diastolic CHF: precipitated more from her COPD exacerbation 3. AECOPD: which is likely the cause of her dyspnea. Pulmonary following 4. HTN: controlled 5. HLP 6. 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 Interrogation revealed normal function and no significant arrhythmias, impedances stable denoting no significant fluid overload 8. CKD3: Cr 1.3-1.5 9. PUI 10. GERD exacerbation 11. Hyperkalemia: 5.5 Recommendations COPD treatment per pulmonary Continue torsemide. Lasix PRN May hold entresto for now and monitor K and renal function.May resume tomorrow. Continue low dose toprol. Continue PPI. May need GI referral if GERD issues continues., potentially could exacerbate and induced bronchospasm. Will defer to PCP Justicifation of Admission Dx: Justifications for Admission: Justification of Admission Dx: Yes SAMM CRUZ MD 10/23/20 2002: CARDIO Progress Notes Assessment Assessment Patient seen and examined. Agree with MOLDED CANDLES WICKER's assessment and plan. Chest pain with atypical features and most probably secondary to bronchospasm, currently resolved Cardiac catheterization 03/2020 did not show any significant coronary artery disease. Chronic diastolic heart failure well compensated. LVEF 50% on recent 2D echo. s/p BiV ICD/PROJECT CONTROL ANALYST-D implantation, stable with normal function. Covid test negative AECOPD significantly improved - pulm following KJ LORA APRN Oct 23, 2020 13:26 SAMM CRUZ MD Oct 23, 2020 20:02
[2020-10-23] MEDS ORDERED: METOPROLOL SUCC 24HR ER 25 MG TAB.ER.24H. PO ONE (13:30)
[2020-10-23 15:02] VITALS: BP 116/48
[2020-10-23 19:30] VITALS: BP 155/67
[2020-10-23] MEDS ORDERED: SACUBITRIL/VALSARTAN 49/51MG TABLET. PO SCH (21:00)
[2020-10-23] MEDS: ATORVASTATIN CALCIUM 20 MG TABLET PO SCH (21:16)
[2020-10-23] MEDS: MONTELUKAST SODIUM 10 MG TABLET. PO SCH (21:18)
[2020-10-23] MEDS: AMITRIPTYLINE HCL 25 MG TABLET. PO SCH (21:18)
[2020-10-23] MEDS: rOPINIRole 1 MG TABLET. PO SCH (21:22)
[2020-10-23 23:25] VITALS: BP 118/61
[2020-10-24 03:10] VITALS: BP 117/50
[2020-10-24] MEDS: PANTOPRAZOLE 40 MG TABLET.DR. PO SCH ×2 (05:23→08:20)
[2020-10-24] MEDS: methylPREDNISolone SOD SUCC PF 40 MG/ML VIAL. IV SCH ×3 (05:23→21:31)
[2020-10-24] MEDS: guaiFENesin/CODEINE 100mg/10mg 5 ML LIQUID PO PRN ×2 (05:23→21:31)
[2020-10-24] MEDS: traMADol 50 MG TABLET PO PRN ×3 (05:23→21:35)
[2020-10-24 06:59] LABS: CALCIUM 8.4 mg/dL (8.5-10.1); CREATININE 1.2 mg/dL (0.6-1.0); GFR 44.9; POTASSIUM 5.2 mmol/L (3.5-5.1)
[2020-10-24 07:00] VITALS: BP 116/59
[2020-10-24] MEDS: BUDESONIDE 0.5 MG/2 ML NEBU. NEB SCH ×2 (08:00→20:46)
[2020-10-24] MEDS: IPRATRPIUM/ALBUTEROL 0.5/2.5MG 3 ML NEBU. NEB SCH ×4 (08:00→20:46)
[2020-10-24] MEDS: CETIRIZINE HCL 10 MG TABLET. PO SCH (08:20)
[2020-10-24] MEDS: CHOLECALCIFEROL (VITAMIN D3) 1,000 UNIT TABLET PO SCH (08:20)
[2020-10-24] MEDS: ALLOPURINOL 100 MG TABLET. PO SCH (08:20)
[2020-10-24] MEDS: TORSEMIDE 20 MG TABLET. PO SCH (08:21)
[2020-10-24] MEDS: ROFLUMILAST 500 MCG TABLET. PO SCH (08:21)
[2020-10-24] MEDS: ASPIRIN ENTERIC COATED 81 MG TABLET.DR. PO SCH (08:21)
[2020-10-24] MEDS: LEVOTHYROXINE 50 MCG TABLET PO SCH (08:22)
[2020-10-24] MEDS: GABAPENTIN 100 MG CAPSULE. PO SCH ×3 (08:22→21:30)
[2020-10-24] MEDS: METOPROLOL SUCC 24HR ER 25 MG TAB.ER.24H. PO SCH (08:22)
[2020-10-24] MEDS: INSULIN LISPRO 300 UNITS/3 ML VIAL. SQ SCH ×3 (08:27→17:47)
--- NOTE | 2020-10-24 08:32 | PDOC ---
[facility] PROGRESS NOTE Date of Service DOS: DATE: 10/24/20 TIME: 08:32 Chief Complaint Chief Complaint A/P: Acute COPD exacerbation Acute on chronic hypoxic respiratory failure Atypical chest pain possible NSTEMI ruled out Negative for COVID-19 infection Acute on Chronic diastolic CHF Hypertension, controlled Dyslipidemia History of nonischemic cardiomyopathy Acute on chronic kidney injuryimproving Continue telemetry monitoring Appreciate cardiology recommendationsresume torsemide, hold Entresto restarted upon discharge, hold blood pressure medication of blood pressure is marginal Lovenox for DVT prophylaxis Protonix GI prophylaxis ADA diet Full code Discussed with RN and SW Disposition inpatient management as above Surrogate decision maker is Herman Mathur History of Present Illness History of Present Illness Ms Mathur is a 65yo F w/ PMHx PMHx chronic respiratory failure, unknown FEV1, COPD, cardiomyopathy, tobacco dependence, in remission, 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 She also c/o worsening SOB. Admitted for COPD exacerbation, tested negative for COVID 19. 10/17: No acute events overnight. Patient has improved dyspnea and she is saturating well on room air. Complains of some cough and sounds congested on my examination. 10/18: No acute events overnight. Patient remains afebrile. No complaints voiced at this time. Patient's chart, labs, images were reviewed and discussed with RN 10/19: No acute events overnight. Patient remains afebrile. Saturating 99% on 3 L take nasal cannula. Patient uses oxygen at home at 2 L nasal cannula. 10/20: No overnight events. Still little short of breath this morning. Currently on 3L, her home O2 is 2L. Having some significant back pain. 10/21: Afebrile. C/o back pain and headache today that are severe. Still very short of breath with coarse rhonchi. Restarted IV steroids. 10/22: Afebrile. Plan she did not sleep at all last night very short of breath with minimal exertion. Pulm consulted, lasix IV x2 administered. 10/23: Afebrile. K5.5. At rest her breathing is much easier today than today lung sounds better. Still requiring IV lasix Afebrile. Good UOP after IV lasix dosing. C/o sore throat. steroid IV dosing increased per pulm Plan: Hold entresto today PO torsemide F/u pulm and cardiology recs, seems ready for d/c in next 24 hours Vitals/I&O Vitals/I&O: Vital Signs Date Time Temp Pulse Resp B/P (MAP) Pulse Ox O2 Delivery O2 Flow Rate FiO2 10/24/20 08:22 70 116/59 10/24/20 08:01 98 Nasal Cannula 3.0 10/24/20 06:23 20 10/24/20 03:10 98.0 98.0 I & O 10/23/20 10/23/20 10/24/20 15:00 23:00 07:00 Intake Total 500 ml 350 ml 320 ml Balance 500 ml 350 ml 320 ml Physical Exam General: Alert, Oriented X3, Cooperative, No acute distress Heart: Regular rate (SR), Normal S1, Normal S2 Lungs: Wheezing, Other Abdomen: Soft, No tenderness Extremities: No cyanosis, No edema Skin: No breakdown, No significant lesion Labs Labs: Laboratory Tests Test 10/23/20 11:56 10/23/20 16:45 10/23/20 20:17 10/24/20 04:43 Glucose (Fingerstick) 287 mg/dL (70-99) 250 mg/dL (70-99) 262 mg/dL (70-99) Sodium Level 140 mmol/L (136-145) Potassium Level 5.2 mmol/L (3.5-5.1) Chloride Level 98 mmol/L (98-107) Carbon Dioxide Level 39 mmol/L (21-32) Anion Gap 3 (6-14) Blood Urea Nitrogen 33 mg/dL (7-20) Creatinine 1.2 mg/dL (0.6-1.0) Estimated GFR (Cockcroft-Gault) 44.9 Glucose Level 200 mg/dL (70-99) Calcium Level 8.4 mg/dL (8.5-10.1) Assessment and Plan Assessmemt and Plan Problems Medical Problems: (1) Acute exacerbation of chronic obstructive pulmonary disease (COPD) Status: Acute (2) Chest pain, rule out acute myocardial infarction Status: Acute Comment Review of Relevant I have reviewed the following items jon (where applicable) has been applied. Medications: Current Medications Medications (Trade) Dose Ordered Sig/Keshav Route PRN Reason Start Time Stop Time Status Last Admin Dose Admin Metoprolol Succinate (Toprol Xl) 25 mg DAILY PO 10/24/20 09:00 10/24/20 08:22 Furosemide (Lasix) 40 mg 1X ONCE IVP 10/23/20 10:15 10/23/20 10:16 DC 10/23/20 11:20 Metoprolol Succinate (Toprol Xl) 25 mg 1X ONCE PO 10/23/20 13:30 10/23/20 13:31 DC 10/23/20 14:38 Justifications for Admission Other Justification PHONG YEBOAH MD Oct 24, 2020 08:32
--- NOTE | 2020-10-24 10:05 | PDOC ---
PULMONARY PROGRESS NOTES DATE: 10/24/20 TIME: 10:00 Subjective Pt. is resting on 3 liters N/C reports SOB, and cough Improvement of wheezing Vitals Vital Signs Date Time Temp Pulse Resp B/P (MAP) Pulse Ox O2 Delivery O2 Flow Rate FiO2 10/24/20 08:22 70 116/59 10/24/20 08:01 98 Nasal Cannula 3.0 10/24/20 07:00 97.6 18 97.6 ROS: No Nausea, No Chest Pain, No Abdominal Pain, No Increase Cough General: Alert, Oriented X4, No acute distress Lungs: Wheezing (faint) Cardiovascular: S1, S2 Abdomen: Soft, Non-tender Neuro Exam: Alert, Oriented Extremities: No Edema Labs Laboratory Tests Test 10/22/20 10:55 10/23/20 06:53 10/23/20 11:56 10/23/20 16:45 Sodium Level 137 mmol/L (136-145) 137 mmol/L (136-145) Potassium Level 4.6 mmol/L (3.5-5.1) 5.5 mmol/L (3.5-5.1) Chloride Level 98 mmol/L (98-107) 98 mmol/L (98-107) Carbon Dioxide Level 32 mmol/L (21-32) 41 mmol/L (21-32) Anion Gap 7 (6-14) (6-14) Blood Urea Nitrogen 31 mg/dL (7-20) 33 mg/dL (7-20) Creatinine 1.5 mg/dL (0.6-1.0) 1.1 mg/dL (0.6-1.0) Estimated GFR (Cockcroft-Gault) 34.7 49.7 Glucose Level 359 mg/dL (70-99) 172 mg/dL (70-99) Calcium Level 9.0 mg/dL (8.5-10.1) 9.0 mg/dL (8.5-10.1) Magnesium Level 2.3 mg/dL (1.8-2.4) 2.5 mg/dL (1.8-2.4) Glucose (Fingerstick) 287 mg/dL (70-99) 250 mg/dL (70-99) Test 10/23/20 20:17 10/24/20 04:43 10/24/20 07:54 Glucose (Fingerstick) 262 mg/dL (70-99) 162 mg/dL (70-99) Sodium Level 140 mmol/L (136-145) Potassium Level 5.2 mmol/L (3.5-5.1) Chloride Level 98 mmol/L (98-107) Carbon Dioxide Level 39 mmol/L (21-32) Anion Gap 3 (6-14) Blood Urea Nitrogen 33 mg/dL (7-20) Creatinine 1.2 mg/dL (0.6-1.0) Estimated GFR (Cockcroft-Gault) 44.9 Glucose Level 200 mg/dL (70-99) Calcium Level 8.4 mg/dL (8.5-10.1) Laboratory Tests Test 10/23/20 11:56 10/23/20 16:45 10/23/20 20:17 10/24/20 04:43 Glucose (Fingerstick) 287 mg/dL (70-99) 250 mg/dL (70-99) 262 mg/dL (70-99) Sodium Level 140 mmol/L (136-145) Potassium Level 5.2 mmol/L (3.5-5.1) Chloride Level 98 mmol/L (98-107) Carbon Dioxide Level 39 mmol/L (21-32) Anion Gap 3 (6-14) Blood Urea Nitrogen 33 mg/dL (7-20) Creatinine 1.2 mg/dL (0.6-1.0) Estimated GFR (Cockcroft-Gault) 44.9 Glucose Level 200 mg/dL (70-99) Calcium Level 8.4 mg/dL (8.5-10.1) Test 10/24/20 07:54 Glucose (Fingerstick) 162 mg/dL (70-99) Medications Active Scripts Medications Dose Route/Sig Max Daily Dose Days Date Category Gabapentin (Gabapentin) 100 Mg Capsule 100 Mg PO TID 10/18/20 Reported Alendronate Sodium 70 Mg Tablet 1 Tab PO WEEKLY 10/16/20 Reported Fluticasone Propionate Nasal [place] (Fluticasone Propionate) 16 Gm [place].susp 2 [place] NS DAILY 10/16/20 Reported Allopurinol 300 Mg Tablet 1 Tab PO DAILY 10/16/20 Reported Prednisone 20 Mg Tablet 1 Tab PO BID 10/16/20 Reported Doxycycline Hyclate 100 Mg Tablet 1 Tab PO BID 05/16/20 Rx Trelegy Ellipta 100-62.5-25 (Fluticasone/Umeclidin/Vilanter) 1 Each Blst.w.dev 1 Each IH DAILY 03/17/20 Reported Prilosec Otc (Omeprazole Magnesium) 20 Mg Tablet.dr 40 Mg PO DAILY 03/17/20 Reported Duoneb 0.5-3(2.5) Mg/3 Ml (Albuterol/Ipratropium) 3 Ml Ampul.neb 3 Ml NEB Q4HRS 14 10/22/19 Rx Entresto 49 mg-51 mg Tablet (Sacubitril/Valsartan) 1 Each Tablet 49-51 Mg PO BID 07/30/19 Reported K-Tab ER (Potassium Chloride) 20 Meq Tablet.er 20 Meq PO DAILY 07/30/19 Reported Montelukast Sodium Tablet (Montelukast Sodium) 10 Mg Tablet 10 Mg PO HS 07/29/19 Reported Levocetirizine Dihydrochloride 5 Mg Tablet 5 Mg PO DAILY 07/29/19 Reported Amitriptyline Hcl 25 Mg Tablet 25 Mg PO QHS 07/29/19 Reported Tylenol (Acetaminophen) 325 Mg Tablet 650 Mg PO PRN Q4HRS PRN 07/29/19 Reported Aspir 81 (Aspirin) 81 Mg Tablet.dr 1 Tab PO DAILY 01/03/18 Reported Metoprolol Succinate ( Xl ) (Metoprolol Succinate) 25 Mg Tab.er.24h 25 Mg PO DAILY 01/03/18 Reported Vitamin D3 (Cholecalciferol (Vitamin D3)) 1,000 Unit Tablet 1 Tab PO DAILY 01/02/18 Reported Torsemide 20 Mg Tablet 1 Tab PO DAILY 01/02/18 Reported Daliresp (Roflumilast) 500 Mcg Tablet 1 Tab PO DAILY 09/23/17 Reported Atorvastatin Calcium 20 Mg Tablet 20 Mg PO HS 09/23/17 Reported Requip (Ropinirole Hcl) 1 Mg Tablet 3 Tab PO QHS 09/23/17 Reported Proair Hfa Inhaler (Albuterol Sulfate) 8.5 Gm Hfa.aer.ad 1 Puff INH PRN Q6HRS PRN 09/23/17 Reported Levothyroxine Sodium 50 Mcg Tablet 1 Tab PO DAILY 09/23/17 Reported Comments CXR IMPRESSION: Persistent mild interstitial prominence. No confluent consolidation. Impression . IMPRESSION: 1. Acute hypoxic respiratory failure with persistent bronchospasm. Likely related to combination of acute exacerbation of chronic obstructive pulmonary disease and acute on chronic diastolic heart failure. 2. Persistent bronchospasm, likely contributed by diastolic heart failure. Her chest x-ray had some mild cephalization of vessels. 3. Underlying chronic obstructive pulmonary disease, could be severe. Her FEV1 is unknown. Plan . RECOMMENDATIONS: Continue supplemental oxygen, on 2 liters N/C Trial dose of magnesium for bronchospasm Continue IV Solu-Medrol we will increase dose today, slow taper Continue Pulmicort and DuoNebs Symptomatic treatment of cough Monitor renal function and KCL DVT/GI PPX D/W RN and IMELDA Sanchez MD Oct 24, 2020 10:05
[2020-10-24] MEDS: FLUTICASONE 50MCG/NASAL SPRAY 16GM BOTTLE. NS SCH (10:30)
[2020-10-24] MEDS ORDERED: MAGNESIUM SULFATE 2GM 50 ML IV ONE (10:30)
[2020-10-24] MEDS ORDERED: BENZOCAINE/MENTHOL LOZENGE. PO PRN (10:45)
[2020-10-24 11:00] VITALS: BP 131/63
[2020-10-24 15:00] VITALS: BP 116/52
[2020-10-24 19:25] VITALS: BP 149/54
[2020-10-24] MEDS: ATORVASTATIN CALCIUM 20 MG TABLET PO SCH (21:30)
[2020-10-24] MEDS: MONTELUKAST SODIUM 10 MG TABLET. PO SCH (21:30)
[2020-10-24] MEDS: rOPINIRole 1 MG TABLET. PO SCH (21:31)
[2020-10-24] MEDS: AMITRIPTYLINE HCL 25 MG TABLET. PO SCH (21:31)
[2020-10-24 23:10] VITALS: BP 141/63
[2020-10-25 04:10] VITALS: BP 137/69
[2020-10-25] MEDS: methylPREDNISolone SOD SUCC PF 40 MG/ML VIAL. IV SCH ×3 (06:10→21:44)
--- NOTE | 2020-10-25 06:38 | PDOC ---
PULMONARY PROGRESS NOTES DATE: 10/25/20 TIME: 06:38 Subjective Pt. is resting on 3 liters N/C sob better has occ cough Vitals Vital Signs Date Time Temp Pulse Resp B/P (MAP) Pulse Ox O2 Delivery O2 Flow Rate FiO2 10/25/20 04:10 98.1 80 20 137/69 (91) 96 Nasal Cannula 3.0 98.1 ROS: No Nausea, No Chest Pain, No Abdominal Pain, No Increase Cough General: Alert, Oriented X4, No acute distress Lungs: Crackles Cardiovascular: S1, S2 Abdomen: Soft, Non-tender Neuro Exam: Alert, Oriented Extremities: No Edema Labs Laboratory Tests Test 10/23/20 06:53 10/23/20 11:56 10/23/20 16:45 10/23/20 20:17 Sodium Level 137 mmol/L (136-145) Potassium Level 5.5 mmol/L (3.5-5.1) Chloride Level 98 mmol/L (98-107) Carbon Dioxide Level 41 mmol/L (21-32) Anion Gap (6-14) Blood Urea Nitrogen 33 mg/dL (7-20) Creatinine 1.1 mg/dL (0.6-1.0) Estimated GFR (Cockcroft-Gault) 49.7 Glucose Level 172 mg/dL (70-99) Calcium Level 9.0 mg/dL (8.5-10.1) Magnesium Level 2.5 mg/dL (1.8-2.4) Glucose (Fingerstick) 287 mg/dL (70-99) 250 mg/dL (70-99) 262 mg/dL (70-99) Test 10/24/20 04:43 10/24/20 07:54 10/24/20 11:34 10/24/20 17:43 Sodium Level 140 mmol/L (136-145) Potassium Level 5.2 mmol/L (3.5-5.1) Chloride Level 98 mmol/L (98-107) Carbon Dioxide Level 39 mmol/L (21-32) Anion Gap 3 (6-14) Blood Urea Nitrogen 33 mg/dL (7-20) Creatinine 1.2 mg/dL (0.6-1.0) Estimated GFR (Cockcroft-Gault) 44.9 Glucose Level 200 mg/dL (70-99) Calcium Level 8.4 mg/dL (8.5-10.1) Glucose (Fingerstick) 162 mg/dL (70-99) 219 mg/dL (70-99) 268 mg/dL (70-99) Test 10/24/20 20:54 Glucose (Fingerstick) 318 mg/dL (70-99) Laboratory Tests Test 10/24/20 07:54 10/24/20 11:34 10/24/20 17:43 10/24/20 20:54 Glucose (Fingerstick) 162 mg/dL (70-99) 219 mg/dL (70-99) 268 mg/dL (70-99) 318 mg/dL (70-99) Medications Active Scripts Medications Dose Route/Sig Max Daily Dose Days Date Category Gabapentin (Gabapentin) 100 Mg Capsule 100 Mg PO TID 10/18/20 Reported Alendronate Sodium 70 Mg Tablet 1 Tab PO WEEKLY 10/16/20 Reported Fluticasone Propionate Nasal [place] (Fluticasone Propionate) 16 Gm [place].susp 2 [place] NS DAILY 10/16/20 Reported Allopurinol 300 Mg Tablet 1 Tab PO DAILY 10/16/20 Reported Prednisone 20 Mg Tablet 1 Tab PO BID 10/16/20 Reported Doxycycline Hyclate 100 Mg Tablet 1 Tab PO BID 05/16/20 Rx Trelegy Ellipta 100-62.5-25 (Fluticasone/Umeclidin/Vilanter) 1 Each Blst.w.dev 1 Each IH DAILY 03/17/20 Reported Prilosec Otc (Omeprazole Magnesium) 20 Mg Tablet.dr 40 Mg PO DAILY 03/17/20 Reported Duoneb 0.5-3(2.5) Mg/3 Ml (Albuterol/Ipratropium) 3 Ml Ampul.neb 3 Ml NEB Q4HRS 14 10/22/19 Rx Entresto 49 mg-51 mg Tablet (Sacubitril/Valsartan) 1 Each Tablet 49-51 Mg PO BID 07/30/19 Reported K-Tab ER (Potassium Chloride) 20 Meq Tablet.er 20 Meq PO DAILY 07/30/19 Reported Montelukast Sodium Tablet (Montelukast Sodium) 10 Mg Tablet 10 Mg PO HS 07/29/19 Reported Levocetirizine Dihydrochloride 5 Mg Tablet 5 Mg PO DAILY 07/29/19 Reported Amitriptyline Hcl 25 Mg Tablet 25 Mg PO QHS 07/29/19 Reported Tylenol (Acetaminophen) 325 Mg Tablet 650 Mg PO PRN Q4HRS PRN 07/29/19 Reported Aspir 81 (Aspirin) 81 Mg Tablet.dr 1 Tab PO DAILY 01/03/18 Reported Metoprolol Succinate ( Xl ) (Metoprolol Succinate) 25 Mg Tab.er.24h 25 Mg PO DAILY 01/03/18 Reported Vitamin D3 (Cholecalciferol (Vitamin D3)) 1,000 Unit Tablet 1 Tab PO DAILY 01/02/18 Reported Torsemide 20 Mg Tablet 1 Tab PO DAILY 01/02/18 Reported Daliresp (Roflumilast) 500 Mcg Tablet 1 Tab PO DAILY 09/23/17 Reported Atorvastatin Calcium 20 Mg Tablet 20 Mg PO HS 09/23/17 Reported Requip (Ropinirole Hcl) 1 Mg Tablet 3 Tab PO QHS 09/23/17 Reported Proair Hfa Inhaler (Albuterol Sulfate) 8.5 Gm Hfa.aer.ad 1 Puff INH PRN Q6HRS PRN 09/23/17 Reported Levothyroxine Sodium 50 Mcg Tablet 1 Tab PO DAILY 09/23/17 Reported Comments CXR IMPRESSION: Persistent mild interstitial prominence. No confluent consolidation. Impression . IMPRESSION: 1. Acute hypoxic respiratory failure with persistent bronchospasm. Likely related to combination of acute exacerbation of chronic obstructive pulmonary disease and acute on chronic diastolic heart failure. 2. Persistent bronchospasm, likely contributed by diastolic heart failure. Her chest x-ray had some mild cephalization of vessels. 3. Underlying chronic obstructive pulmonary disease, could be severe. Her FEV1 is unknown. Plan . RECOMMENDATIONS: Continue supplemental oxygen, on 2 liters N/C Trial dose of magnesium for bronchospasm Continue IV Solu-Medrol change to 80 bid Continue Pulmicort and DuoNebs Symptomatic treatment of cough Monitor renal function and KCL DVT/GI PPX D/W KING GIRON MD Oct 25, 2020 06:38
[2020-10-25 07:00] VITALS: BP 114/60
[2020-10-25] MEDS: BUDESONIDE 0.5 MG/2 ML NEBU. NEB SCH ×2 (07:48→21:20)
[2020-10-25] MEDS: IPRATRPIUM/ALBUTEROL 0.5/2.5MG 3 ML NEBU. NEB SCH ×4 (07:48→21:20)
[2020-10-25] MEDS: CETIRIZINE HCL 10 MG TABLET. PO SCH (09:14)
[2020-10-25] MEDS: GABAPENTIN 100 MG CAPSULE. PO SCH ×3 (09:15→21:44)
[2020-10-25] MEDS: ALLOPURINOL 100 MG TABLET. PO SCH (09:15)
[2020-10-25] MEDS: LEVOTHYROXINE 50 MCG TABLET PO SCH (09:15)
[2020-10-25] MEDS: ASPIRIN ENTERIC COATED 81 MG TABLET.DR. PO SCH (09:15)
[2020-10-25] MEDS: ROFLUMILAST 500 MCG TABLET. PO SCH (09:15)
[2020-10-25] MEDS: TORSEMIDE 20 MG TABLET. PO SCH (09:15)
[2020-10-25] MEDS: METOPROLOL SUCC 24HR ER 25 MG TAB.ER.24H. PO SCH (09:16)
[2020-10-25 09:19] LABS: BLOOD UREA NITROGEN 31 mg/dL (7-20); CALCIUM 8.7 mg/dL (8.5-10.1); CARBON DIOXIDE 43 mmol/L (21-32); CHLORIDE 99 mmol/L (98-107); GFR 55.5; GLUCOSE 168 mg/dL (70-99); SODIUM 140 mmol/L (136-145)
[2020-10-25] MEDS: CHOLECALCIFEROL (VITAMIN D3) 1,000 UNIT TABLET PO SCH (09:19)
[2020-10-25] MEDS: guaiFENesin/CODEINE 100mg/10mg 5 ML LIQUID PO PRN ×3 (09:20→21:45)
[2020-10-25] MEDS: FLUTICASONE 50MCG/NASAL SPRAY 16GM BOTTLE. NS SCH (09:23)
[2020-10-25] MEDS: INSULIN LISPRO 300 UNITS/3 ML VIAL. SQ SCH ×3 (09:24→18:02)
[2020-10-25] MEDS ORDERED: SODIUM POLYSTYRENE SULFON/SORB 15 GM/60 ML ORAL.SUSP. PO ONE (09:30)
[2020-10-25] MEDS ORDERED: SODIUM BICARB ADULT 8.4% 50 MEQ/50 ML DISP.SYRIN. IV ONE (09:30)
[2020-10-25] MEDS ORDERED: CALCIUM GLUCONATE 1,000 MG/10 ML VIAL. IVP ONE (09:30)
--- NOTE | 2020-10-25 09:35 | PDOC ---
[facility] PROGRESS NOTE Date of Service DOS: DATE: 10/25/20 TIME: 09:37 Chief Complaint Chief Complaint A/P: Acute COPD exacerbation Acute on chronic hypoxic respiratory failure Atypical chest pain possible NSTEMI ruled out Negative for COVID-19 infection Acute on Chronic diastolic CHF Hypertension, controlled Dyslipidemia History of nonischemic cardiomyopathy Acute on chronic kidney injuryimproving Continue telemetry monitoring Appreciate cardiology recommendationsresume torsemide, hold Entresto restarted upon discharge, hold blood pressure medication of blood pressure is marginal Lovenox for DVT prophylaxis Protonix GI prophylaxis ADA diet Full code Discussed with RN and SW Disposition inpatient management as above Surrogate decision maker is Herman Mathur History of Present Illness History of Present Illness Ms Mathur is a 65yo F w/ PMHx PMHx chronic respiratory failure, unknown FEV1, COPD, cardiomyopathy, tobacco dependence, in remission, 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 She also c/o worsening SOB. Admitted for COPD exacerbation, tested negative for COVID 19. 10/17: No acute events overnight. Patient has improved dyspnea and she is saturating well on room air. Complains of some cough and sounds congested on my examination. 10/18: No acute events overnight. Patient remains afebrile. No complaints voiced at this time. Patient's chart, labs, images were reviewed and discussed with RN 10/19: No acute events overnight. Patient remains afebrile. Saturating 99% on 3 L take nasal cannula. Patient uses oxygen at home at 2 L nasal cannula. 10/20: No overnight events. Still little short of breath this morning. Currently on 3L, her home O2 is 2L. Having some significant back pain. 10/21: Afebrile. C/o back pain and headache today that are severe. Still very short of breath with coarse rhonchi. Restarted IV steroids. 10/22: Afebrile. Plan she did not sleep at all last night very short of breath with minimal exertion. Pulm consulted, lasix IV x2 administered. 10/23: Afebrile. K5.5. At rest her breathing is much easier today than today lung sounds better. Still requiring IV lasix 10/24: Afebrile. Good UOP after IV lasix dosing. C/o sore throat. steroid IV dosing increased per pulm Afebrile. Overnight she slept with her room window open despite 21 F temperature outdoors. She complains of substernal chest discomfort rating to her neck today. Sore throat improved with Cepacol. K of 6 today. Plan: Hold entresto today PO torsemide Calcium, nebs, insulin, bicarb, and Kayexelate for hyperkalemia despite treatment F/u pulm and cardiology recs Vitals/I&O Vitals/I&O: Vital Signs Date Time Temp Pulse Resp B/P (MAP) Pulse Ox O2 Delivery O2 Flow Rate FiO2 10/25/20 09:16 80 137/69 10/25/20 07:50 99 Nasal Cannula 3.0 10/25/20 04:10 98.1 20 98.1 I & O 0 10/24/20 10/24/20 10/25/20 14:55 22:55 06:55 Intake Total 605 ml 420 ml 500 ml Output Total 200 ml Balance 605 ml 420 ml 300 ml Physical Exam General: Alert, Oriented X3, Cooperative, No acute distress Heart: Regular rate (SR), Normal S1, Normal S2 Lungs: Crackles Abdomen: Soft, No tenderness Extremities: No cyanosis, No edema Skin: No breakdown, No significant lesion Labs Labs: Laboratory Tests Test 10/24/20 11:34 10/24/20 17:43 10/24/20 20:54 10/25/20 07:50 Glucose (Fingerstick) 219 mg/dL (70-99) 268 mg/dL (70-99) 318 mg/dL (70-99) Sodium Level 140 mmol/L (136-145) Potassium Level 6.0 mmol/L (3.5-5.1) Chloride Level 99 mmol/L (98-107) Carbon Dioxide Level 43 mmol/L (21-32) Anion Gap (6-14) Blood Urea Nitrogen 31 mg/dL (7-20) Creatinine 1.0 mg/dL (0.6-1.0) Estimated GFR (Cockcroft-Gault) 55.5 Glucose Level 168 mg/dL (70-99) Calcium Level 8.7 mg/dL (8.5-10.1) Test 10/25/20 08:11 Glucose (Fingerstick) 178 mg/dL (70-99) Assessment and Plan Assessmemt and Plan Problems Medical Problems: (1) Acute exacerbation of chronic obstructive pulmonary disease (COPD) Status: Acute (2) Chest pain, rule out acute myocardial infarction Status: Acute Comment Review of Relevant I have reviewed the following items jon (where applicable) has been applied. Medications: Current Medications Medications (Trade) Dose Ordered Sig/Keshav Route PRN Reason Start Time Stop Time Status Last Admin Dose Admin Methylprednisolone Sodium Succinate (SOLU-Medrol 40MG VIAL) 80 mg Q8HRS IV 10/24/20 14:00 10/25/20 06:39 DC 10/25/20 06:10 Magnesium Sulfate 50 ml @ 25 mls/hr 1X ONCE IV 10/24/20 10:30 10/24/20 12:29 DC 10/24/20 10:31 Throat Lozenges (Cepacol Sore Throat Lozenge) 1 venancio PRN Q2HRS PRN PO SORE THROAT 10/24/20 10:45 10/24/20 14:03 Methylprednisolone Sodium Succinate (SOLU-Medrol 40MG VIAL) 80 mg Q12HR IV 10/25/20 09:00 10/25/20 09:27 Justifications for Admission Other Justification PHONG YEBOAH MD Oct 25, 2020 09:35
[2020-10-25 11:00] VITALS: BP 163/71
[2020-10-25] MEDS: NITROGLYCERIN SUBLINGUAL 0.4 MG BOTTLE OF 25. SL PRN (14:45)
[2020-10-25 15:00] VITALS: BP 113/61
[2020-10-25 19:45] VITALS: BP 151/60
[2020-10-25] MEDS: traMADol 50 MG TABLET PO PRN (21:44)
[2020-10-25] MEDS: AMITRIPTYLINE HCL 25 MG TABLET. PO SCH (21:44)
[2020-10-25] MEDS: MONTELUKAST SODIUM 10 MG TABLET. PO SCH (21:44)
[2020-10-25] MEDS: ATORVASTATIN CALCIUM 20 MG TABLET PO SCH (21:45)
[2020-10-25] MEDS: rOPINIRole 1 MG TABLET. PO SCH (21:45)
[2020-10-25 23:39] VITALS: BP 153/62
[2020-10-26 03:43] VITALS: BP 142/61
[2020-10-26 07:00] VITALS: BP 138/69
--- NOTE | 2020-10-26 07:55 | PDOC ---
[facility] PROGRESS NOTE Date of Service DOS: DATE: 10/26/20 TIME: 07:54 Chief Complaint Chief Complaint A/P: Acute COPD exacerbation Acute on chronic hypoxic respiratory failure Atypical chest pain possible NSTEMI ruled out Negative for COVID-19 infection Acute on Chronic diastolic CHF Hypertension, controlled Dyslipidemia History of nonischemic cardiomyopathy Acute on chronic kidney injuryimproving Continue telemetry monitoring Appreciate cardiology recommendationsresume torsemide, hold Entresto restarted upon discharge, hold blood pressure medication of blood pressure is marginal Lovenox for DVT prophylaxis Protonix GI prophylaxis ADA diet Full code Discussed with RN and SW Disposition inpatient management as above Surrogate decision maker is Herman Mathur History of Present Illness History of Present Illness Ms Mathur is a 65yo F w/ PMHx PMHx chronic respiratory failure, unknown FEV1, COPD, cardiomyopathy, tobacco dependence, in remission, 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 She also c/o worsening SOB. Admitted for COPD exacerbation, tested negative for COVID 19. 10/17: No acute events overnight. Patient has improved dyspnea and she is saturating well on room air. Complains of some cough and sounds congested on my examination. 10/18: No acute events overnight. Patient remains afebrile. No complaints voiced at this time. Patient's chart, labs, images were reviewed and discussed with RN 10/19: No acute events overnight. Patient remains afebrile. Saturating 99% on 3 L take nasal cannula. Patient uses oxygen at home at 2 L nasal cannula. 10/20: No overnight events. Still little short of breath this morning. Currently on 3L, her home O2 is 2L. Having some significant back pain. 10/21: Afebrile. C/o back pain and headache today that are severe. Still very short of breath with coarse rhonchi. Restarted IV steroids. 10/22: Afebrile. Plan she did not sleep at all last night very short of breath with minimal exertion. Pulm consulted, lasix IV x2 administered. 10/23: Afebrile. K5.5. At rest her breathing is much easier today than today lung sounds better. Still requiring IV lasix 10/24: Afebrile. Good UOP after IV lasix dosing. C/o sore throat. steroid IV dosing increased per pulm 10/25: Afebrile. Slept with her room window open despite 21 F temperature outdoors. C/o substernal chest pain, K of 6. Sore throat improved with Cepacol. Overnight had 8 bowel movements after Kayexalate dosing. Potassium now 3.2. She complains of significant leg weakness due to shortness of breath is little worse with compatible with cough especially when she lays flat. On further review she notes that she felt shock while she was at the grocery store 3 weeks ago. Has not had a device interrogation since then. Despite aggressive diuresis BNP has elevated. Plan: Restart Entresto today PO torsemide + x1 lasix 40mg F/u pulm and cardiology recs Device interrogation Vitals/I&O Vitals/I&O: Vital Signs Date Time Temp Pulse Resp B/P (MAP) Pulse Ox O2 Delivery O2 Flow Rate FiO2 10/26/20 03:43 98.2 78 21 142/61 (88) 98 Nasal Cannula 3.0 98.2 I & O 10/25/20 10/25/20 10/26/20 15:00 23:00 07:00 Intake Total 118 ml 60 ml 260 ml Output Total 200 ml Balance 118 ml -140 ml 260 ml Physical Exam General: Alert, Oriented X3, Cooperative, No acute distress Heart: Regular rate (SR), Normal S1, Normal S2 Lungs: Crackles Abdomen: Soft, No tenderness Extremities: No cyanosis, No edema Skin: No breakdown, No significant lesion Labs Labs: Laboratory Tests Test 10/25/20 08:11 10/25/20 11:59 10/25/20 12:36 10/25/20 15:05 Glucose (Fingerstick) 178 mg/dL (70-99) 183 mg/dL (70-99) Troponin I Quantitative 0.029 ng/mL (0.000-0.055) 0.029 ng/mL (0.000-0.055) Test 10/25/20 17:28 10/25/20 18:00 10/25/20 21:01 Glucose (Fingerstick) 246 mg/dL (70-99) 306 mg/dL (70-99) Troponin I Quantitative 0.028 ng/mL (0.000-0.055) Assessment and Plan Assessmemt and Plan Problems Medical Problems: (1) Acute exacerbation of chronic obstructive pulmonary disease (COPD) Status: Acute (2) Chest pain, rule out acute myocardial infarction Status: Acute Comment Review of Relevant I have reviewed the following items jon (where applicable) has been applied. Medications: Current Medications Medications (Trade) Dose Ordered Sig/Keshav Route PRN Reason Start Time Stop Time Status Last Admin Dose Admin Methylprednisolone Sodium Succinate (SOLU-Medrol 40MG VIAL) 80 mg Q12HR IV 10/25/20 09:00 10/25/20 21:44 Calcium Gluconate (Calcium Gluconate) 1,000 mg 1X ONCE IVP 10/25/20 09:30 10/25/20 09:38 DC 10/25/20 09:57 Sodium Bicarbonate (Sodium Bicarb Adult 8.4% Syr) 50 meq 1X ONCE IV 10/25/20 09:30 10/25/20 09:38 DC 10/25/20 09:59 Sodium Polystyrene Sulfonate (Kayexalate) 30 gm 1X ONCE PO 10/25/20 09:30 10/25/20 09:38 DC 10/25/20 10:00 Nitroglycerin (Nitrostat) 0.4 mg PRN Q5MIN PRN SL CHEST PAIN 10/25/20 09:45 10/25/20 14:45 Justifications for Admission Other Justification PHONG YEBOAH MD Oct 26, 2020 07:55
[2020-10-26] MEDS: BUDESONIDE 0.5 MG/2 ML NEBU. NEB SCH ×2 (08:02→21:19)
[2020-10-26] MEDS: IPRATRPIUM/ALBUTEROL 0.5/2.5MG 3 ML NEBU. NEB SCH ×4 (08:02→21:19)
[2020-10-26] MEDS: NITROGLYCERIN SUBLINGUAL 0.4 MG BOTTLE OF 25. SL PRN (08:20)
[2020-10-26] MEDS: traMADol 50 MG TABLET PO PRN ×3 (08:21→21:35)
[2020-10-26] MEDS: guaiFENesin/CODEINE 100mg/10mg 5 ML LIQUID PO PRN ×2 (08:23→15:24)
[2020-10-26] MEDS: GABAPENTIN 100 MG CAPSULE. PO SCH ×3 (08:24→21:31)
[2020-10-26] MEDS: ROFLUMILAST 500 MCG TABLET. PO SCH (08:24)
[2020-10-26] MEDS: CETIRIZINE HCL 10 MG TABLET. PO SCH (08:24)
[2020-10-26] MEDS: ASPIRIN ENTERIC COATED 81 MG TABLET.DR. PO SCH (08:24)
[2020-10-26] MEDS: CHOLECALCIFEROL (VITAMIN D3) 1,000 UNIT TABLET PO SCH (08:24)
[2020-10-26] MEDS: LEVOTHYROXINE 50 MCG TABLET PO SCH (08:24)
[2020-10-26] MEDS: PANTOPRAZOLE 40 MG TABLET.DR. PO SCH (08:24)
[2020-10-26] MEDS: ALLOPURINOL 100 MG TABLET. PO SCH (08:24)
[2020-10-26] MEDS: TORSEMIDE 20 MG TABLET. PO SCH (08:25)
[2020-10-26] MEDS: METOPROLOL SUCC 24HR ER 25 MG TAB.ER.24H. PO SCH (08:25)
[2020-10-26] MEDS: FLUTICASONE 50MCG/NASAL SPRAY 16GM BOTTLE. NS SCH (08:26)
[2020-10-26] MEDS: methylPREDNISolone SOD SUCC PF 40 MG/ML VIAL. IV SCH ×2 (08:26→21:32)
[2020-10-26] MEDS: INSULIN LISPRO 300 UNITS/3 ML VIAL. SQ SCH ×3 (08:59→17:23)
[2020-10-26 10:16] VITALS: BP 147/65
[2020-10-26 11:08] LABS: CREATININE 1.3 mg/dL (0.6-1.0); POTASSIUM 3.2 mmol/L (3.5-5.1)
--- NOTE | 2020-10-26 12:08 | PDOC ---
PULMONARY PROGRESS NOTES DATE: 10/26/20 TIME: 12:07 Subjective Pt. is resting on 3 liters N/C still has sob, has cough Vitals Vital Signs Date Time Temp Pulse Resp B/P (MAP) Pulse Ox O2 Delivery O2 Flow Rate FiO2 10/26/20 11:42 Nasal Cannula 3.0 10/26/20 10:16 98.8 97 20 147/65 (92) 99 98.8 ROS: No Nausea, No Chest Pain, No Abdominal Pain, No Increase Cough General: Alert, Oriented X4, No acute distress Lungs: Crackles Cardiovascular: S1, S2 Abdomen: Soft, Non-tender Neuro Exam: Alert, Oriented Extremities: No Edema Labs Laboratory Tests Test 10/24/20 17:43 10/24/20 20:54 10/25/20 07:50 10/25/20 08:11 Glucose (Fingerstick) 268 mg/dL (70-99) 318 mg/dL (70-99) 178 mg/dL (70-99) Sodium Level 140 mmol/L (136-145) Potassium Level 6.0 mmol/L (3.5-5.1) Chloride Level 99 mmol/L (98-107) Carbon Dioxide Level 43 mmol/L (21-32) Anion Gap (6-14) Blood Urea Nitrogen 31 mg/dL (7-20) Creatinine 1.0 mg/dL (0.6-1.0) Estimated GFR (Cockcroft-Gault) 55.5 Glucose Level 168 mg/dL (70-99) Calcium Level 8.7 mg/dL (8.5-10.1) Test 10/25/20 11:59 10/25/20 12:36 10/25/20 15:05 10/25/20 17:28 Troponin I Quantitative 0.029 ng/mL (0.000-0.055) 0.029 ng/mL (0.000-0.055) Glucose (Fingerstick) 183 mg/dL (70-99) 246 mg/dL (70-99) Test 10/25/20 18:00 10/25/20 21:01 10/26/20 08:43 10/26/20 09:45 Troponin I Quantitative 0.028 ng/mL (0.000-0.055) Glucose (Fingerstick) 306 mg/dL (70-99) 208 mg/dL (70-99) Sodium Level 140 mmol/L (136-145) Potassium Level 3.2 mmol/L (3.5-5.1) Chloride Level 96 mmol/L (98-107) Carbon Dioxide Level 39 mmol/L (21-32) Anion Gap 5 (6-14) Blood Urea Nitrogen 32 mg/dL (7-20) Creatinine 1.3 mg/dL (0.6-1.0) Estimated GFR (Cockcroft-Gault) 41.0 Glucose Level 248 mg/dL (70-99) Calcium Level 8.0 mg/dL (8.5-10.1) KF-Ybh-C-Type Natriuretic Peptide 4795 pg/mL (0-124) Laboratory Tests Test 10/25/20 12:36 10/25/20 15:05 10/25/20 17:28 10/25/20 18:00 Glucose (Fingerstick) 183 mg/dL (70-99) 246 mg/dL (70-99) Troponin I Quantitative 0.029 ng/mL (0.000-0.055) 0.028 ng/mL (0.000-0.055) Test 10/25/20 21:01 10/26/20 08:43 10/26/20 09:45 Glucose (Fingerstick) 306 mg/dL (70-99) 208 mg/dL (70-99) Sodium Level 140 mmol/L (136-145) Potassium Level 3.2 mmol/L (3.5-5.1) Chloride Level 96 mmol/L (98-107) Carbon Dioxide Level 39 mmol/L (21-32) Anion Gap 5 (6-14) Blood Urea Nitrogen 32 mg/dL (7-20) Creatinine 1.3 mg/dL (0.6-1.0) Estimated GFR (Cockcroft-Gault) 41.0 Glucose Level 248 mg/dL (70-99) Calcium Level 8.0 mg/dL (8.5-10.1) GX-Wop-I-Type Natriuretic Peptide 4795 pg/mL (0-124) Medications Active Scripts Medications Dose Route/Sig Max Daily Dose Days Date Category Gabapentin (Gabapentin) 100 Mg Capsule 100 Mg PO TID 10/18/20 Reported Alendronate Sodium 70 Mg Tablet 1 Tab PO WEEKLY 10/16/20 Reported Fluticasone Propionate Nasal [place] (Fluticasone Propionate) 16 Gm [place].susp 2 [place] NS DAILY 10/16/20 Reported Allopurinol 300 Mg Tablet 1 Tab PO DAILY 10/16/20 Reported Prednisone 20 Mg Tablet 1 Tab PO BID 10/16/20 Reported Doxycycline Hyclate 100 Mg Tablet 1 Tab PO BID 05/16/20 Rx Trelegy Ellipta 100-62.5-25 (Fluticasone/Umeclidin/Vilanter) 1 Each Blst.w.dev 1 Each IH DAILY 03/17/20 Reported Prilosec Otc (Omeprazole Magnesium) 20 Mg Tablet.dr 40 Mg PO DAILY 03/17/20 Reported Duoneb 0.5-3(2.5) Mg/3 Ml (Albuterol/Ipratropium) 3 Ml Ampul.neb 3 Ml NEB Q4HRS 14 10/22/19 Rx Entresto 49 mg-51 mg Tablet (Sacubitril/Valsartan) 1 Each Tablet 49-51 Mg PO BID 07/30/19 Reported K-Tab ER (Potassium Chloride) 20 Meq Tablet.er 20 Meq PO DAILY 07/30/19 Reported Montelukast Sodium Tablet (Montelukast Sodium) 10 Mg Tablet 10 Mg PO HS 07/29/19 Reported Levocetirizine Dihydrochloride 5 Mg Tablet 5 Mg PO DAILY 07/29/19 Reported Amitriptyline Hcl 25 Mg Tablet 25 Mg PO QHS 07/29/19 Reported Tylenol (Acetaminophen) 325 Mg Tablet 650 Mg PO PRN Q4HRS PRN 07/29/19 Reported Aspir 81 (Aspirin) 81 Mg Tablet.dr 1 Tab PO DAILY 01/03/18 Reported Metoprolol Succinate ( Xl ) (Metoprolol Succinate) 25 Mg Tab.er.24h 25 Mg PO DAILY 01/03/18 Reported Vitamin D3 (Cholecalciferol (Vitamin D3)) 1,000 Unit Tablet 1 Tab PO DAILY 01/02/18 Reported Torsemide 20 Mg Tablet 1 Tab PO DAILY 01/02/18 Reported Daliresp (Roflumilast) 500 Mcg Tablet 1 Tab PO DAILY 09/23/17 Reported Atorvastatin Calcium 20 Mg Tablet 20 Mg PO HS 09/23/17 Reported Requip (Ropinirole Hcl) 1 Mg Tablet 3 Tab PO QHS 09/23/17 Reported Proair Hfa Inhaler (Albuterol Sulfate) 8.5 Gm Hfa.aer.ad 1 Puff INH PRN Q6HRS PRN 09/23/17 Reported Levothyroxine Sodium 50 Mcg Tablet 1 Tab PO DAILY 09/23/17 Reported Comments CXR IMPRESSION: Persistent mild interstitial prominence. No confluent consolidation. Impression . IMPRESSION: 1. Acute hypoxic respiratory failure with persistent bronchospasm. Likely related to combination of acute exacerbation of chronic obstructive pulmonary disease and acute on chronic diastolic heart failure. 2. Persistent bronchospasm, likely contributed by diastolic heart failure. Her chest x-ray had some mild cephalization of vessels. 3. Underlying chronic obstructive pulmonary disease, could be severe. Her FEV1 is unknown. Plan . RECOMMENDATIONS: Continue supplemental oxygen, on 2 liters N/C Trial dose of magnesium for bronchospasm Continue IV Solu-Medrol 80 bid Continue Pulmicort and DuoNebs Symptomatic treatment of cough Monitor renal function and KCL DVT/GI PPX D/W KING GIRON MD Oct 26, 2020 12:08
[2020-10-26] MEDS ORDERED: FUROSEMIDE 40 MG/4 ML VIAL. IVP ONE (14:00)
[2020-10-26] MEDS ORDERED: POTASSIUM BICARB 20 MEQ EFFERVESCENT TABLET. PO ONE (14:00)
[2020-10-26 15:00] VITALS: BP 145/54
[2020-10-26 19:50] VITALS: BP 142/65
[2020-10-26] MEDS: AMITRIPTYLINE HCL 25 MG TABLET. PO SCH (21:31)
[2020-10-26] MEDS: MONTELUKAST SODIUM 10 MG TABLET. PO SCH (21:31)
[2020-10-26] MEDS: rOPINIRole 1 MG TABLET. PO SCH (21:31)
[2020-10-26] MEDS: ATORVASTATIN CALCIUM 20 MG TABLET PO SCH (21:31)
[2020-10-26 22:40] VITALS: BP 147/67
[2020-10-27 03:45] VITALS: BP 151/74
[2020-10-27 05:36] LABS: CALCIUM 7.8 mg/dL (8.5-10.1); CREATININE 1.1 mg/dL (0.6-1.0); GFR 49.7; MAGNESIUM 2.4 mg/dL (1.8-2.4)
[2020-10-27 07:00] VITALS: BP 138/71
[2020-10-27] MEDS: BUDESONIDE 0.5 MG/2 ML NEBU. NEB SCH ×2 (07:21→20:00)
[2020-10-27] MEDS: IPRATRPIUM/ALBUTEROL 0.5/2.5MG 3 ML NEBU. NEB SCH ×4 (07:21→20:33)
[2020-10-27] MEDS: TORSEMIDE 20 MG TABLET. PO SCH (08:59)
[2020-10-27] MEDS: PANTOPRAZOLE 40 MG TABLET.DR. PO SCH (08:59)
[2020-10-27] MEDS: ASPIRIN ENTERIC COATED 81 MG TABLET.DR. PO SCH (08:59)
[2020-10-27] MEDS: ALLOPURINOL 100 MG TABLET. PO SCH (08:59)
[2020-10-27] MEDS: CETIRIZINE HCL 10 MG TABLET. PO SCH (08:59)
[2020-10-27] MEDS: GABAPENTIN 100 MG CAPSULE. PO SCH ×3 (08:59→21:09)
[2020-10-27] MEDS: CHOLECALCIFEROL (VITAMIN D3) 1,000 UNIT TABLET PO SCH (08:59)
[2020-10-27] MEDS: ROFLUMILAST 500 MCG TABLET. PO SCH (08:59)
[2020-10-27] MEDS: LEVOTHYROXINE 50 MCG TABLET PO SCH (08:59)
[2020-10-27] MEDS: traMADol 50 MG TABLET PO PRN ×2 (09:00→21:08)
[2020-10-27] MEDS: METOPROLOL SUCC 24HR ER 25 MG TAB.ER.24H. PO SCH (09:00)
[2020-10-27] MEDS: methylPREDNISolone SOD SUCC PF 40 MG/ML VIAL. IV SCH (09:01)
[2020-10-27] MEDS: FLUTICASONE 50MCG/NASAL SPRAY 16GM BOTTLE. NS SCH (09:01)
[2020-10-27] MEDS: INSULIN LISPRO 300 UNITS/3 ML VIAL. SQ SCH ×3 (09:09→17:32)
--- NOTE | 2020-10-27 10:48 | PDOC ---
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 She also c/o worsening SOB. Admitted for COPD exacerbation, tested negative for COVID 19. 10/17: No acute events overnight. Patient has improved dyspnea and she is saturating well on room air. Complains of some cough and sounds congested on my examination. 10/18: No acute events overnight. Patient remains afebrile. No complaints voiced at this time. Patient's chart, labs, images were reviewed and discussed with RN 10/19: No acute events overnight. Patient remains afebrile. Saturating 99% on 3 L take nasal cannula. Patient uses oxygen at home at 2 L nasal cannula. 10/20: No overnight events. Still little short of breath this morning. Currently on 3L, her home O2 is 2L. Having some significant back pain. 10/21: Afebrile. C/o back pain and headache today that are severe. Still very short of breath with coarse rhonchi. Restarted IV steroids. 10/22: Afebrile. Plan she did not sleep at all last night very short of breath with minimal exertion. Pulm consulted, lasix IV x2 administered. 10/23: Afebrile. K5.5. At rest her breathing is much easier today than today lung sounds better. Still requiring IV lasix 10/24: Afebrile. Good UOP after IV lasix dosing. C/o sore throat. steroid IV dosing increased per pulm 10/25: Afebrile. Slept with her room window open despite 21 F temperature outdoors. C/o substernal chest pain, K of 6. Sore throat improved with Cepacol. Overnight had 8 bowel movements after Kayexalate dosing. Potassium now 3.2. She complains of significant leg weakness due to shortness of breath is little worse with compatible with cough especially when she lays flat. On further review she notes that she felt shock while she was at the grocery store 3 weeks ago. Has not had a device interrogation since then. Despite aggressive diuresis BNP has elevated. Plan: Restart Entresto today PO torsemide + x1 lasix 40mg F/u pulm and cardiology recs Device interrogation 10-27-20 - Pt seen and examined - Dw RN - Chart reviewed Vitals/I&O Vitals/I&O: Vital Signs Date Time Temp Pulse Resp B/P (MAP) Pulse Ox O2 Delivery O2 Flow Rate FiO2 10/27/20 09:00 101 138/71 10/27/20 09:00 Nasal Cannula 3.0 10/27/20 07:19 99 10/27/20 07:00 97.8 20 97.8 I & O 0 10/26/20 10/26/20 10/27/20 15:00 23:00 07:00 Intake Total 120 ml 660 ml Balance 120 ml 660 ml Physical Exam General: Alert, Oriented X3, Cooperative, No acute distress Heart: Regular rate (SR), Normal S1, Normal S2 Lungs: Crackles Abdomen: Soft, No tenderness Extremities: No cyanosis, No edema Skin: No breakdown, No significant lesion Labs Labs: Laboratory Tests Test 10/26/20 11:42 10/26/20 16:48 10/26/20 21:24 10/27/20 05:00 Glucose (Fingerstick) 110 mg/dL (70-99) 232 mg/dL (70-99) 236 mg/dL (70-99) Sodium Level 139 mmol/L (136-145) Potassium Level 4.0 mmol/L (3.5-5.1) Chloride Level 96 mmol/L (98-107) Carbon Dioxide Level 41 mmol/L (21-32) Anion Gap 2 (6-14) Blood Urea Nitrogen 30 mg/dL (7-20) Creatinine 1.1 mg/dL (0.6-1.0) Estimated GFR (Cockcroft-Gault) 49.7 Glucose Level 201 mg/dL (70-99) Calcium Level 7.8 mg/dL (8.5-10.1) Magnesium Level 2.4 mg/dL (1.8-2.4) Test 10/27/20 08:14 Glucose (Fingerstick) 185 mg/dL (70-99) Review of Systems Review of Systems: No rashes or itching. No GI distress. Pt is alert and oriented. Assessment and Plan Assessmemt and Plan Problems Medical Problems: (1) Acute exacerbation of chronic obstructive pulmonary disease (COPD) Status: Acute (2) Chest pain, rule out acute myocardial infarction Status: Acute A/P: Acute COPD exacerbation Acute on chronic hypoxic respiratory failure Atypical chest pain possible NSTEMI ruled out Negative for COVID-19 infection Acute on Chronic diastolic CHF Hypertension, controlled Dyslipidemia History of nonischemic cardiomyopathy Acute on chronic kidney injuryimproving Continue telemetry monitoring Appreciate cardiology recommendationsresume torsemide, hold Entresto restarted upon discharge, hold blood pressure medication of blood pressure is marginal Lovenox for DVT prophylaxis Protonix GI prophylaxis ADA diet Full code Discussed with RN and SW Disposition inpatient management as above Surrogate decision maker is Herman Mathur Assessment: 1. COPD exacerbation 2. Atypical chest pain 3. HTN 4. Nonischemic cardiomyopathy 5. Chronic diastolic CHF Plan 1. Pt appears to be approaching baseline 2. Cont IV steroids 3. Diurese per cardiology 4. Trend potassium 5. Cont home meds 6. DVT prophylaxis 7. Appreciate specialist input 8. Probable discharge with home health in a few days Comment Review of Relevant I have reviewed the following items jon (where applicable) has been applied. Medications: Current Medications Medications (Trade) Dose Ordered Sig/Keshav Route PRN Reason Start Time Stop Time Status Last Admin Dose Admin Furosemide (Lasix) 40 mg 1X ONCE IVP 10/26/20 14:00 10/26/20 14:01 DC 10/26/20 15:25 Potassium Bicarbonate (Potassium Effervescent Tablet) 40 meq 1X ONCE PO 10/26/20 14:00 10/26/20 14:01 DC 10/26/20 15:25 Justifications for Admission Other Justification JULIANA ERNST III DO Oct 27, 2020 10:48
[2020-10-27 11:00] VITALS: BP 155/64
--- NOTE | 2020-10-27 11:07 | RAD ---
EXAM: CHEST 1 VIEW History: Shortness of breath COMPARISON: 10/22/2020 TECHNIQUE: Single portable radiograph of the chest FINDINGS: Low lung volumes and technique accentuates heart size and pulmonary vascularity.. Left-jess ed cardiac pacer AICD is identified. Mild prominent bilateral interstitial lung markings likely mild congestive changes or interstitial infiltrates. IMPRESSION: Mild prominent bilateral interstitial lung markings likely mild congestive changes or in terstitial infiltrates. Electronically signed by: Cristian Rob MD (10/27/2020 11:04 AM) [id number]
--- NOTE | 2020-10-27 11:52 | PDOC ---
PULMONARY PROGRESS NOTES DATE: 10/27/20 TIME: 11:46 Subjective Patient remains on nasal cannula oxygen No increased shortness of breath or increased cough Vitals Vital Signs Date Time Temp Pulse Resp B/P (MAP) Pulse Ox O2 Delivery O2 Flow Rate FiO2 10/27/20 11:00 98.2 92 19 155/64 (94) 98 Nasal Cannula 3.0 98.2 ROS: No Nausea, No Chest Pain, No Abdominal Pain, No Increase Cough General: Alert, Oriented X4, No acute distress Lungs: Clear Cardiovascular: S1, S2 Abdomen: Soft, Non-tender Neuro Exam: Alert, Oriented Extremities: No Edema Labs Laboratory Tests Test 10/25/20 11:59 10/25/20 12:36 10/25/20 15:05 10/25/20 17:28 Troponin I Quantitative 0.029 ng/mL (0.000-0.055) 0.029 ng/mL (0.000-0.055) Glucose (Fingerstick) 183 mg/dL (70-99) 246 mg/dL (70-99) Test 10/25/20 18:00 10/25/20 21:01 10/26/20 08:43 10/26/20 09:45 Troponin I Quantitative 0.028 ng/mL (0.000-0.055) Glucose (Fingerstick) 306 mg/dL (70-99) 208 mg/dL (70-99) Sodium Level 140 mmol/L (136-145) Potassium Level 3.2 mmol/L (3.5-5.1) Chloride Level 96 mmol/L (98-107) Carbon Dioxide Level 39 mmol/L (21-32) Anion Gap 5 (6-14) Blood Urea Nitrogen 32 mg/dL (7-20) Creatinine 1.3 mg/dL (0.6-1.0) Estimated GFR (Cockcroft-Gault) 41.0 Glucose Level 248 mg/dL (70-99) Calcium Level 8.0 mg/dL (8.5-10.1) GR-Fgj-[id number]-Type Natriuretic Peptide 4795 pg/mL (0-124) Test 10/26/20 11:42 10/26/20 16:48 10/26/20 21:24 10/27/20 05:00 Glucose (Fingerstick) 110 mg/dL (70-99) 232 mg/dL (70-99) 236 mg/dL (70-99) Sodium Level 139 mmol/L (136-145) Potassium Level 4.0 mmol/L (3.5-5.1) Chloride Level 96 mmol/L (98-107) Carbon Dioxide Level 41 mmol/L (21-32) Anion Gap 2 (6-14) Blood Urea Nitrogen 30 mg/dL (7-20) Creatinine 1.1 mg/dL (0.6-1.0) Estimated GFR (Cockcroft-Gault) 49.7 Glucose Level 201 mg/dL (70-99) Calcium Level 7.8 mg/dL (8.5-10.1) Magnesium Level 2.4 mg/dL (1.8-2.4) Test 10/27/20 08:14 Glucose (Fingerstick) 185 mg/dL (70-99) Laboratory Tests Test 10/26/20 16:48 10/26/20 21:24 10/27/20 05:00 10/27/20 08:14 Glucose (Fingerstick) 232 mg/dL (70-99) 236 mg/dL (70-99) 185 mg/dL (70-99) Sodium Level 139 mmol/L (136-145) Potassium Level 4.0 mmol/L (3.5-5.1) Chloride Level 96 mmol/L (98-107) Carbon Dioxide Level 41 mmol/L (21-32) Anion Gap 2 (6-14) Blood Urea Nitrogen 30 mg/dL (7-20) Creatinine 1.1 mg/dL (0.6-1.0) Estimated GFR (Cockcroft-Gault) 49.7 Glucose Level 201 mg/dL (70-99) Calcium Level 7.8 mg/dL (8.5-10.1) Magnesium Level 2.4 mg/dL (1.8-2.4) Medications Active Scripts Medications Dose Route/Sig Max Daily Dose Days Date Category Gabapentin (Gabapentin) 100 Mg Capsule 100 Mg PO TID 10/18/20 Reported Alendronate Sodium 70 Mg Tablet 1 Tab PO WEEKLY 10/16/20 Reported Fluticasone Propionate Nasal [place] (Fluticasone Propionate) 16 Gm [place].susp 2 [place] NS DAILY 10/16/20 Reported Allopurinol 300 Mg Tablet 1 Tab PO DAILY 10/16/20 Reported Prednisone 20 Mg Tablet 1 Tab PO BID 10/16/20 Reported Doxycycline Hyclate 100 Mg Tablet 1 Tab PO BID 05/16/20 Rx Trelegy Ellipta 100-62.5-25 (Fluticasone/Umeclidin/Vilanter) 1 Each Blst.w.dev 1 Each IH DAILY 03/17/20 Reported Prilosec Otc (Omeprazole Magnesium) 20 Mg Tablet.dr 40 Mg PO DAILY 03/17/20 Reported Duoneb 0.5-3(2.5) Mg/3 Ml (Albuterol/Ipratropium) 3 Ml Ampul.neb 3 Ml NEB Q4HRS 14 10/22/19 Rx Entresto 49 mg-51 mg Tablet (Sacubitril/Valsartan) 1 Each Tablet 49-51 Mg PO BID 07/30/19 Reported K-Tab ER (Potassium Chloride) 20 Meq Tablet.er 20 Meq PO DAILY 07/30/19 Reported Montelukast Sodium Tablet (Montelukast Sodium) 10 Mg Tablet 10 Mg PO HS 07/29/19 Reported Levocetirizine Dihydrochloride 5 Mg Tablet 5 Mg PO DAILY 07/29/19 Reported Amitriptyline Hcl 25 Mg Tablet 25 Mg PO QHS 07/29/19 Reported Tylenol (Acetaminophen) 325 Mg Tablet 650 Mg PO PRN Q4HRS PRN 07/29/19 Reported Aspir 81 (Aspirin) 81 Mg Tablet.dr 1 Tab PO DAILY 01/03/18 Reported Metoprolol Succinate ( Xl ) (Metoprolol Succinate) 25 Mg Tab.er.24h 25 Mg PO DAILY 01/03/18 Reported Vitamin D3 (Cholecalciferol (Vitamin D3)) 1,000 Unit Tablet 1 Tab PO DAILY 01/02/18 Reported Torsemide 20 Mg Tablet 1 Tab PO DAILY 01/02/18 Reported Daliresp (Roflumilast) 500 Mcg Tablet 1 Tab PO DAILY 09/23/17 Reported Atorvastatin Calcium 20 Mg Tablet 20 Mg PO HS 09/23/17 Reported Requip (Ropinirole Hcl) 1 Mg Tablet 3 Tab PO QHS 09/23/17 Reported Proair Hfa Inhaler (Albuterol Sulfate) 8.5 Gm Hfa.aer.ad 1 Puff INH PRN Q6HRS PRN 09/23/17 Reported Levothyroxine Sodium 50 Mcg Tablet 1 Tab PO DAILY 09/23/17 Reported Comments CXR IMPRESSION: Persistent mild interstitial prominence. No confluent consolidation. Impression . IMPRESSION: 1. Acute hypoxic respiratory failure with persistent bronchospasm. Likely related to combination of acute exacerbation of chronic obstructive pulmonary disease and acute on chronic diastolic heart failure. 2. Persistent bronchospasm, likely contributed by diastolic heart failure. Her chest x-ray had some mild cephalization of vessels. 3. Underlying chronic obstructive pulmonary disease, could be severe. Her FEV1 is unknown. Plan . RECOMMENDATIONS: Continue supplemental oxygen, on 2 liters N/C 6-minute walk prior to discharge Chest x-ray reviewed mild interstitial markings, will give one-time dose of Lasix today Discontinue IV steroids start prednisone taper slow taper Continue Pulmicort and DuoNebs Symptomatic treatment of cough Monitor renal function DVT/GI PPX D/W IMELDA ALARCON MD Oct 27, 2020 11:52
[2020-10-27] MEDS ORDERED: FUROSEMIDE 40 MG/4 ML VIAL. IVP ONE (12:00)
[2020-10-27 15:00] VITALS: BP 140/54
--- NOTE | 2020-10-27 15:10 | PDOC ---
C[facility] Progress Notes Date and Time Date of Service 10/27/20 Time of Evaluation 1310 Subjective Subjective: No Chest Pain, No Palpitations, Other (still has some SOA) Vitals Vitals Vital Signs Date Time Temp Pulse Resp B/P (MAP) Pulse Ox O2 Delivery O2 Flow Rate FiO2 10/27/20 11:51 95 Nasal Cannula 3.0 10/27/20 11:00 98.2 92 19 155/64 (94) 98.2 Weight Weight [ ] Input and Output Intake and Output Intake and Output 10/27/20 07:00 Intake Total 780 ml Balance 780 ml Intake Oral 780 ml # Voids 2 Laboratory Labs Laboratory Tests Test 10/26/20 16:48 10/26/20 21:24 10/27/20 05:00 10/27/20 08:14 Glucose (Fingerstick) 232 mg/dL (70-99) 236 mg/dL (70-99) 185 mg/dL (70-99) Sodium Level 139 mmol/L (136-145) Potassium Level 4.0 mmol/L (3.5-5.1) Chloride Level 96 mmol/L (98-107) Carbon Dioxide Level 41 mmol/L (21-32) Anion Gap 2 (6-14) Blood Urea Nitrogen 30 mg/dL (7-20) Creatinine 1.1 mg/dL (0.6-1.0) Estimated GFR (Cockcroft-Gault) 49.7 Glucose Level 201 mg/dL (70-99) Calcium Level 7.8 mg/dL (8.5-10.1) Magnesium Level 2.4 mg/dL (1.8-2.4) Test 10/27/20 11:51 Glucose (Fingerstick) 141 mg/dL (70-99) Physical Exam HEENT: Neck Supple W Full Motion Chest: Symmetric LUNGS: Other (crackles) Heart: RRR (SR with intermittent pacing) Abdomen: Soft N/T Extremities: No Calf Tenderness Neurology: alert, oriented, follow commands Assessment Assessment 1. Atypical chest pain: possibly from bronchospasm. Significant workup last yr including MPI and LHC with no significant CAD 2. Acute on chronic diastolic CHF: LVEF 50% 3. AECOPD: as per pulm 4. HTN: controlled overall 5. HLP 6. Hx of NICM: recovered 7. [employer]-D: [employer]. Interrogation revealed normal function and no significant arrhythmias, impedances stable denoting no significant fluid overload 8. CKD; Cr stable 9. PUI; COVID negative 10. GERD exacerbation 11. Hyperkalemia: resolved Recommendations Diuresis with monitoring of renal function Entresto discontinued due to hyperkalemia COPD treatment per pulmonary Continue PPI. Supportive care Justicifation of Admission Dx: Justifications for Admission: Justification of Admission Dx: Yes 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 APRN Oct 27, 2020 15:10
[2020-10-27 19:37] VITALS: BP 137/57
[2020-10-27] MEDS: ATORVASTATIN CALCIUM 20 MG TABLET PO SCH (21:07)
[2020-10-27] MEDS: AMITRIPTYLINE HCL 25 MG TABLET. PO SCH (21:07)
[2020-10-27] MEDS: MONTELUKAST SODIUM 10 MG TABLET. PO SCH (21:09)
[2020-10-27] MEDS: rOPINIRole 1 MG TABLET. PO SCH (21:09)
[2020-10-27 23:18] VITALS: BP 145/47
[2020-10-28 02:35] VITALS: BP 131/54
[2020-10-28 06:22] LABS: BASO % 0 % (0-3); EOS % 0 % (0-3); HEMATOCRIT 30.4 % (36.0-47.0); HEMOGLOBIN 9.8 g/dL (12.0-15.5); LYMPH # 1.8 x10^3/uL (1.0-4.8); LYMPH % 11 % (24-48); MEAN CORPUSCULAR HEMOGLOBIN 30 pg (25-35); MEAN CORPUSCULAR HGB CONC 32 g/dL (31-37); MEAN CORPUSCULAR VOLUME 95 fL (79-100); MONO # 0.6 x10^3/uL (0.0-1.1); MONO % 4 % (0-9); NEUT # 13.8 x10^3/uL (1.8-7.7); NEUT % 85 % (31-73); PLATELET COUNT 121 x10^3/uL (140-400); RED BLOOD COUNT 3.21 x10^6/uL (3.50-5.40); RED CELL DISTRIBUTION WIDTH 17.1 % (11.5-14.5); WHITE BLOOD COUNT 16.2 x10^3/uL (4.0-11.0)
[2020-10-28 06:26] LABS: ALBUMIN 2.6 g/dL (3.4-5.0); ALBUMIN/GLOBULIN RATIO 0.9 (1.0-1.7); CALCIUM 8.6 mg/dL (8.5-10.1); GFR 55.5; POTASSIUM 3.4 mmol/L (3.5-5.1); TOTAL BILIRUBIN 0.3 mg/dL (0.2-1.0); TOTAL PROTEIN 5.4 g/dL (6.4-8.2)
[2020-10-28 07:00] VITALS: BP 133/69
[2020-10-28 08:11] LABS: % BANDS 1 % (0-9); % LYMPHS 8 % (24-48); % MONOS 3 % (0-10); % SEGS 88 % (35-66)
[2020-10-28 08:12] LABS: ANISOCYTOSIS SLIGHT; PLT ESTIMATE DECREASED (ADEQUATE)
[2020-10-28] MEDS: BUDESONIDE 0.5 MG/2 ML NEBU. NEB SCH ×2 (08:52→21:10)
[2020-10-28] MEDS: IPRATRPIUM/ALBUTEROL 0.5/2.5MG 3 ML NEBU. NEB SCH ×4 (08:52→21:09)
[2020-10-28] MEDS ORDERED: predniSONE 20 MG TABLET PO SCH (09:00)
[2020-10-28] MEDS: ROFLUMILAST 500 MCG TABLET. PO SCH (09:01)
[2020-10-28] MEDS: CHOLECALCIFEROL (VITAMIN D3) 1,000 UNIT TABLET PO SCH (09:02)
[2020-10-28] MEDS: TORSEMIDE 20 MG TABLET. PO SCH (09:02)
[2020-10-28] MEDS: ALLOPURINOL 100 MG TABLET. PO SCH (09:02)
[2020-10-28] MEDS: GABAPENTIN 100 MG CAPSULE. PO SCH ×3 (09:02→22:19)
[2020-10-28] MEDS: ASPIRIN ENTERIC COATED 81 MG TABLET.DR. PO SCH (09:02)
[2020-10-28] MEDS: LEVOTHYROXINE 50 MCG TABLET PO SCH (09:02)
[2020-10-28] MEDS: CETIRIZINE HCL 10 MG TABLET. PO SCH (09:02)
[2020-10-28] MEDS: PANTOPRAZOLE 40 MG TABLET.DR. PO SCH (09:02)
[2020-10-28] MEDS: METOPROLOL SUCC 24HR ER 25 MG TAB.ER.24H. PO SCH (09:02)
[2020-10-28] MEDS: traMADol 50 MG TABLET PO PRN ×2 (09:03→22:19)
[2020-10-28] MEDS: FLUTICASONE 50MCG/NASAL SPRAY 16GM BOTTLE. NS SCH (09:06)
[2020-10-28] MEDS: guaiFENesin/CODEINE 100mg/10mg 5 ML LIQUID PO PRN ×2 (09:08→22:22)
[2020-10-28] MEDS: INSULIN LISPRO 300 UNITS/3 ML VIAL. SQ SCH ×3 (09:08→17:43)
[2020-10-28] MEDS ORDERED: MAGNESIUM SULFATE 2GM 50 ML IV ONE (10:30)
--- NOTE | 2020-10-28 10:31 | PDOC ---
PULMONARY PROGRESS NOTES DATE: 10/28/20 TIME: 10:29 Subjective Patient remains on 3 liters nasal cannula oxygen increased wheezing mild SOB, and wet cough not feeling well today Vitals Vital Signs Date Time Temp Pulse Resp B/P (MAP) Pulse Ox O2 Delivery O2 Flow Rate FiO2 10/28/20 09:03 Nasal Cannula 3.0 10/28/20 09:02 76 133/69 10/28/20 08:55 95 10/28/20 07:00 98.0 18 98.0 ROS: No Nausea, No Chest Pain, No Abdominal Pain, No Increase Cough General: Alert, Oriented X4, No acute distress Lungs: Wheezing Cardiovascular: S1, S2 Abdomen: Soft, Non-tender Neuro Exam: Alert, Oriented Extremities: No Edema Labs Laboratory Tests Test 10/26/20 11:42 10/26/20 16:48 10/26/20 21:24 10/27/20 05:00 Glucose (Fingerstick) 110 mg/dL (70-99) 232 mg/dL (70-99) 236 mg/dL (70-99) Sodium Level 139 mmol/L (136-145) Potassium Level 4.0 mmol/L (3.5-5.1) Chloride Level 96 mmol/L (98-107) Carbon Dioxide Level 41 mmol/L (21-32) Anion Gap 2 (6-14) Blood Urea Nitrogen 30 mg/dL (7-20) Creatinine 1.1 mg/dL (0.6-1.0) Estimated GFR (Cockcroft-Gault) 49.7 Glucose Level 201 mg/dL (70-99) Calcium Level 7.8 mg/dL (8.5-10.1) Magnesium Level 2.4 mg/dL (1.8-2.4) Test 10/27/20 08:14 10/27/20 11:51 10/27/20 17:08 10/27/20 20:39 Glucose (Fingerstick) 185 mg/dL (70-99) 141 mg/dL (70-99) 186 mg/dL (70-99) 238 mg/dL (70-99) Test 10/28/20 05:10 10/28/20 08:05 White Blood Count 16.2 x10^3/uL (4.0-11.0) Red Blood Count 3.21 x10^6/uL (3.50-5.40) Hemoglobin 9.8 g/dL (12.0-15.5) Hematocrit 30.4 % (36.0-47.0) Mean Corpuscular Volume 95 fL (79-100) Mean Corpuscular Hemoglobin 30 pg (25-35) Mean Corpuscular Hemoglobin Concent 32 g/dL (31-37) Red Cell Distribution Width 17.1 % (11.5-14.5) Platelet Count 121 x10^3/uL (140-400) Neutrophils (%) (Auto) 85 % (31-73) Lymphocytes (%) (Auto) 11 % (24-48) Monocytes (%) (Auto) 4 % (0-9) Eosinophils (%) (Auto) 0 % (0-3) Basophils (%) (Auto) 0 % (0-3) Neutrophils # (Auto) 13.8 x10^3/uL (1.8-7.7) Lymphocytes # (Auto) 1.8 x10^3/uL (1.0-4.8) Monocytes # (Auto) 0.6 x10^3/uL (0.0-1.1) Eosinophils # (Auto) 0.0 x10^3/uL (0.0-0.7) Basophils # (Auto) 0.0 x10^3/uL (0.0-0.2) Segmented Neutrophils % 88 % (35-66) Band Neutrophils % 1 % (0-9) Lymphocytes % 8 % (24-48) Monocytes % 3 % (0-10) Platelet Estimate Decreased (ADEQUATE) Anisocytosis Slight Sodium Level 141 mmol/L (136-145) Potassium Level 3.4 mmol/L (3.5-5.1) Chloride Level 98 mmol/L (98-107) Carbon Dioxide Level 43 mmol/L (21-32) Anion Gap 0 (6-14) Blood Urea Nitrogen 39 mg/dL (7-20) Creatinine 1.0 mg/dL (0.6-1.0) Estimated GFR (Cockcroft-Gault) 55.5 BUN/Creatinine Ratio 39 (6-20) Glucose Level 94 mg/dL (70-99) Calcium Level 8.6 mg/dL (8.5-10.1) Total Bilirubin 0.3 mg/dL (0.2-1.0) Aspartate Amino Transf (AST/SGOT) 47 U/L (15-37) Alanine Aminotransferase (ALT/SGPT) 87 U/L (14-59) Alkaline Phosphatase 43 U/L (46-116) Total Protein 5.4 g/dL (6.4-8.2) Albumin 2.6 g/dL (3.4-5.0) Albumin/Globulin Ratio 0.9 (1.0-1.7) Glucose (Fingerstick) 100 mg/dL (70-99) Laboratory Tests Test 10/27/20 11:51 10/27/20 17:08 10/27/20 20:39 10/28/20 05:10 Glucose (Fingerstick) 141 mg/dL (70-99) 186 mg/dL (70-99) 238 mg/dL (70-99) White Blood Count 16.2 x10^3/uL (4.0-11.0) Red Blood Count 3.21 x10^6/uL (3.50-5.40) Hemoglobin 9.8 g/dL (12.0-15.5) Hematocrit 30.4 % (36.0-47.0) Mean Corpuscular Volume 95 fL (79-100) Mean Corpuscular Hemoglobin 30 pg (25-35) Mean Corpuscular Hemoglobin Concent 32 g/dL (31-37) Red Cell Distribution Width 17.1 % (11.5-14.5) Platelet Count 121 x10^3/uL (140-400) Neutrophils (%) (Auto) 85 % (31-73) Lymphocytes (%) (Auto) 11 % (24-48) Monocytes (%) (Auto) 4 % (0-9) Eosinophils (%) (Auto) 0 % (0-3) Basophils (%) (Auto) 0 % (0-3) Neutrophils # (Auto) 13.8 x10^3/uL (1.8-7.7) Lymphocytes # (Auto) 1.8 x10^3/uL (1.0-4.8) Monocytes # (Auto) 0.6 x10^3/uL (0.0-1.1) Eosinophils # (Auto) 0.0 x10^3/uL (0.0-0.7) Basophils # (Auto) 0.0 x10^3/uL (0.0-0.2) Segmented Neutrophils % 88 % (35-66) Band Neutrophils % 1 % (0-9) Lymphocytes % 8 % (24-48) Monocytes % 3 % (0-10) Platelet Estimate Decreased (ADEQUATE) Anisocytosis Slight Sodium Level 141 mmol/L (136-145) Potassium Level 3.4 mmol/L (3.5-5.1) Chloride Level 98 mmol/L (98-107) Carbon Dioxide Level 43 mmol/L (21-32) Anion Gap 0 (6-14) Blood Urea Nitrogen 39 mg/dL (7-20) Creatinine 1.0 mg/dL (0.6-1.0) Estimated GFR (Cockcroft-Gault) 55.5 BUN/Creatinine Ratio 39 (6-20) Glucose Level 94 mg/dL (70-99) Calcium Level 8.6 mg/dL (8.5-10.1) Total Bilirubin 0.3 mg/dL (0.2-1.0) Aspartate Amino Transf (AST/SGOT) 47 U/L (15-37) Alanine Aminotransferase (ALT/SGPT) 87 U/L (14-59) Alkaline Phosphatase 43 U/L (46-116) Total Protein 5.4 g/dL (6.4-8.2) Albumin 2.6 g/dL (3.4-5.0) Albumin/Globulin Ratio 0.9 (1.0-1.7) Test 10/28/20 08:05 Glucose (Fingerstick) 100 mg/dL (70-99) Medications Active Scripts Medications Dose Route/Sig Max Daily Dose Days Date Category Gabapentin (Gabapentin) 100 Mg Capsule 100 Mg PO TID 10/18/20 Reported Alendronate Sodium 70 Mg Tablet 1 Tab PO WEEKLY 10/16/20 Reported Fluticasone Propionate Nasal [place] (Fluticasone Propionate) 16 Gm [place].susp 2 [place] NS DAILY 10/16/20 Reported Allopurinol 300 Mg Tablet 1 Tab PO DAILY 10/16/20 Reported Prednisone 20 Mg Tablet 1 Tab PO BID 10/16/20 Reported Doxycycline Hyclate 100 Mg Tablet 1 Tab PO BID 05/16/20 Rx Trelegy Ellipta 100-62.5-25 (Fluticasone/Umeclidin/Vilanter) 1 Each Blst.w.dev 1 Each IH DAILY 03/17/20 Reported Prilosec Otc (Omeprazole Magnesium) 20 Mg Tablet.dr 40 Mg PO DAILY 03/17/20 Reported Duoneb 0.5-3(2.5) Mg/3 Ml (Albuterol/Ipratropium) 3 Ml Ampul.neb 3 Ml NEB Q4HRS 14 10/22/19 Rx Entresto 49 mg-51 mg Tablet (Sacubitril/Valsartan) 1 Each Tablet 49-51 Mg PO BID 07/30/19 Reported K-Tab ER (Potassium Chloride) 20 Meq Tablet.er 20 Meq PO DAILY 07/30/19 Reported Montelukast Sodium Tablet (Montelukast Sodium) 10 Mg Tablet 10 Mg PO HS 07/29/19 Reported Levocetirizine Dihydrochloride 5 Mg Tablet 5 Mg PO DAILY 07/29/19 Reported Amitriptyline Hcl 25 Mg Tablet 25 Mg PO QHS 07/29/19 Reported Tylenol (Acetaminophen) 325 Mg Tablet 650 Mg PO PRN Q4HRS PRN 07/29/19 Reported Aspir 81 (Aspirin) 81 Mg Tablet.dr 1 Tab PO DAILY 01/03/18 Reported Metoprolol Succinate ( Xl ) (Metoprolol Succinate) 25 Mg Tab.er.24h 25 Mg PO DAILY 01/03/18 Reported Vitamin D3 (Cholecalciferol (Vitamin D3)) 1,000 Unit Tablet 1 Tab PO DAILY 01/02/18 Reported Torsemide 20 Mg Tablet 1 Tab PO DAILY 01/02/18 Reported Daliresp (Roflumilast) 500 Mcg Tablet 1 Tab PO DAILY 09/23/17 Reported Atorvastatin Calcium 20 Mg Tablet 20 Mg PO HS 09/23/17 Reported Requip (Ropinirole Hcl) 1 Mg Tablet 3 Tab PO QHS 09/23/17 Reported Proair Hfa Inhaler (Albuterol Sulfate) 8.5 Gm Hfa.aer.ad 1 Puff INH PRN Q6HRS PRN 09/23/17 Reported Levothyroxine Sodium 50 Mcg Tablet 1 Tab PO DAILY 09/23/17 Reported Comments CXR IMPRESSION: Persistent mild interstitial prominence. No confluent consolidation. Impression . IMPRESSION: 1. Acute hypoxic respiratory failure with persistent bronchospasm. Likely related to combination of acute exacerbation of chronic obstructive pulmonary disease and acute on chronic diastolic heart failure. 2. Persistent bronchospasm, likely contributed by diastolic heart failure. Her chest x-ray had some mild cephalization of vessels. 3. Underlying chronic obstructive pulmonary disease, could be severe. Her FEV1 is unknown. Plan . RECOMMENDATIONS: Continue supplemental oxygen, on 3 liters N/C Chest x-ray PRN will transition back to IV steroids Mag sulfate X1 today Obtain non-contrast CT chest Continue Pulmicort and DuoNebs Symptomatic treatment of cough Monitor renal function DVT/GI PPX D/W RN IMELDA EASTMAN MD Oct 28, 2020 10:31
[2020-10-28 11:00] VITALS: BP 120/46
--- NOTE | 2020-10-28 11:28 | PDOC ---
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 She also c/o worsening SOB. Admitted for COPD exacerbation, tested negative for COVID 19. 10/17: No acute events overnight. Patient has improved dyspnea and she is saturating well on room air. Complains of some cough and sounds congested on my examination. 10/18: No acute events overnight. Patient remains afebrile. No complaints voiced at this time. Patient's chart, labs, images were reviewed and discussed with RN 10/19: No acute events overnight. Patient remains afebrile. Saturating 99% on 3 L take nasal cannula. Patient uses oxygen at home at 2 L nasal cannula. 10/20: No overnight events. Still little short of breath this morning. Currently on 3L, her home O2 is 2L. Having some significant back pain. 10/21: Afebrile. C/o back pain and headache today that are severe. Still very short of breath with coarse rhonchi. Restarted IV steroids. 10/22: Afebrile. Plan she did not sleep at all last night very short of breath with minimal exertion. Pulm consulted, lasix IV x2 administered. 10/23: Afebrile. K5.5. At rest her breathing is much easier today than today lung sounds better. Still requiring IV lasix 10/24: Afebrile. Good UOP after IV lasix dosing. C/o sore throat. steroid IV dosing increased per pulm 10/25: Afebrile. Slept with her room window open despite 21 F temperature outdoors. C/o substernal chest pain, K of 6. Sore throat improved with Cepacol. Overnight had 8 bowel movements after Kayexalate dosing. Potassium now 3.2. She complains of significant leg weakness due to shortness of breath is little worse with compatible with cough especially when she lays flat. On further review she notes that she felt shock while she was at the grocery store 3 weeks ago. Has not had a device interrogation since then. Despite aggressive diuresis BNP has elevated. 10-27-20 - Pt seen and examined - Bonifacio RN - Chart reviewed 10-28-20 - Pt seen and examined. - Bonifacio RN. - Chart reviewed. Vitals/I&O Vitals/I&O: Vital Signs Date Time Temp Pulse Resp B/P (MAP) Pulse Ox O2 Delivery O2 Flow Rate FiO2 10/28/20 10:03 Nasal Cannula 3.0 10/28/20 09:02 76 133/69 10/28/20 08:55 95 10/28/20 07:00 98.0 18 98.0 I & O 10/27/20 10/27/20 10/28/20 14:59 22:59 06:59 Intake Total 640 ml 810 ml 200 ml Output Total 350 ml Balance 640 ml 460 ml 200 ml Physical Exam General: Alert, Oriented X3, Cooperative, No acute distress Heart: Regular rate (SR), Normal S1, Normal S2 Lungs: Wheezing Abdomen: Soft, No tenderness Extremities: No cyanosis, No edema Skin: No breakdown, No significant lesion Labs Labs: Laboratory Tests Test 10/27/20 11:51 10/27/20 17:08 10/27/20 20:39 10/28/20 05:10 Glucose (Fingerstick) 141 mg/dL (70-99) 186 mg/dL (70-99) 238 mg/dL (70-99) White Blood Count 16.2 x10^3/uL (4.0-11.0) Red Blood Count 3.21 x10^6/uL (3.50-5.40) Hemoglobin 9.8 g/dL (12.0-15.5) Hematocrit 30.4 % (36.0-47.0) Mean Corpuscular Volume 95 fL (79-100) Mean Corpuscular Hemoglobin 30 pg (25-35) Mean Corpuscular Hemoglobin Concent 32 g/dL (31-37) Red Cell Distribution Width 17.1 % (11.5-14.5) Platelet Count 121 x10^3/uL (140-400) Neutrophils (%) (Auto) 85 % (31-73) Lymphocytes (%) (Auto) 11 % (24-48) Monocytes (%) (Auto) 4 % (0-9) Eosinophils (%) (Auto) 0 % (0-3) Basophils (%) (Auto) 0 % (0-3) Neutrophils # (Auto) 13.8 x10^3/uL (1.8-7.7) Lymphocytes # (Auto) 1.8 x10^3/uL (1.0-4.8) Monocytes # (Auto) 0.6 x10^3/uL (0.0-1.1) Eosinophils # (Auto) 0.0 x10^3/uL (0.0-0.7) Basophils # (Auto) 0.0 x10^3/uL (0.0-0.2) Segmented Neutrophils % 88 % (35-66) Band Neutrophils % 1 % (0-9) Lymphocytes % 8 % (24-48) Monocytes % 3 % (0-10) Platelet Estimate Decreased (ADEQUATE) Anisocytosis Slight Sodium Level 141 mmol/L (136-145) Potassium Level 3.4 mmol/L (3.5-5.1) Chloride Level 98 mmol/L (98-107) Carbon Dioxide Level 43 mmol/L (21-32) Anion Gap 0 (6-14) Blood Urea Nitrogen 39 mg/dL (7-20) Creatinine 1.0 mg/dL (0.6-1.0) Estimated GFR (Cockcroft-Gault) 55.5 BUN/Creatinine Ratio 39 (6-20) Glucose Level 94 mg/dL (70-99) Calcium Level 8.6 mg/dL (8.5-10.1) Total Bilirubin 0.3 mg/dL (0.2-1.0) Aspartate Amino Transf (AST/SGOT) 47 U/L (15-37) Alanine Aminotransferase (ALT/SGPT) 87 U/L (14-59) Alkaline Phosphatase 43 U/L (46-116) Total Protein 5.4 g/dL (6.4-8.2) Albumin 2.6 g/dL (3.4-5.0) Albumin/Globulin Ratio 0.9 (1.0-1.7) Test 10/28/20 08:05 Glucose (Fingerstick) 100 mg/dL (70-99) Review of Systems Review of Systems: No rashes or itching. No headache or dizziness. No diarrhea or vomiting. Assessment and Plan Assessmemt and Plan Problems Medical Problems: (1) Acute exacerbation of chronic obstructive pulmonary disease (COPD) Status: Acute (2) Chest pain, rule out acute myocardial infarction Status: Acute Plan: Restart Entresto today PO torsemide + x1 lasix 40mg F/u pulm and cardiology recs Device interrogation Assessment: 1. COPD exacerbation 2. Diastolic CHF 3. Atypical chest pain Plan: 1. Pt approaching baseline 2. Cont IV steroids 3. Trend labs 4. DVT prophylaxis 5. Code full 6. Appreciate specialist input 7. Discharge disposition pending Comment Review of Relevant I have reviewed the following items jon (where applicable) has been applied. Medications: Current Medications Medications (Trade) Dose Ordered Sig/Keshav Route PRN Reason Start Time Stop Time Status Last Admin Dose Admin Prednisone (Prednisone) 60 mg DAILY PO 10/28/20 09:00 10/28/20 10:29 DC 10/28/20 09:01 Furosemide (Lasix) 40 mg 1X ONCE IVP 10/27/20 12:00 10/27/20 12:01 DC 10/27/20 12:54 Magnesium Sulfate 50 ml @ 25 mls/hr 1X ONCE IV 10/28/20 10:30 10/28/20 12:29 10/28/20 11:06 Justifications for Admission Other Justification JULIANA ERNST III DO Oct 28, 2020 11:28
--- NOTE | 2020-10-28 12:26 | PDOC ---
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 CYTOGENETIC TECHNOLOGIST 10/28/20 1226: CARDIO Progress Notes Date and Time Date of Service 10/28/20 Time of Evaluation 1220 Subjective Subjective: No Chest Pain, No Palpitations, Other (still SOA) Vitals Vitals Vital Signs Date Time Temp Pulse Resp B/P (MAP) Pulse Ox O2 Delivery O2 Flow Rate FiO2 10/28/20 11:00 98.1 98 18 120/46 (70) 98 Nasal Cannula 3.0 98.1 Weight Weight [ ] Input and Output Intake and Output Intake and Output 10/28/20 07:00 Intake Total 1650 ml Output Total 350 ml Balance 1300 ml Intake Oral 1650 ml Output Urine Total 350 ml # Voids 3 Laboratory Labs Laboratory Tests Test 10/27/20 17:08 10/27/20 20:39 10/28/20 05:10 10/28/20 08:05 Glucose (Fingerstick) 186 mg/dL (70-99) 238 mg/dL (70-99) 100 mg/dL (70-99) White Blood Count 16.2 x10^3/uL (4.0-11.0) Red Blood Count 3.21 x10^6/uL (3.50-5.40) Hemoglobin 9.8 g/dL (12.0-15.5) Hematocrit 30.4 % (36.0-47.0) Mean Corpuscular Volume 95 fL (79-100) Mean Corpuscular Hemoglobin 30 pg (25-35) Mean Corpuscular Hemoglobin Concent 32 g/dL (31-37) Red Cell Distribution Width 17.1 % (11.5-14.5) Platelet Count 121 x10^3/uL (140-400) Neutrophils (%) (Auto) 85 % (31-73) Lymphocytes (%) (Auto) 11 % (24-48) Monocytes (%) (Auto) 4 % (0-9) Eosinophils (%) (Auto) 0 % (0-3) Basophils (%) (Auto) 0 % (0-3) Neutrophils # (Auto) 13.8 x10^3/uL (1.8-7.7) Lymphocytes # (Auto) 1.8 x10^3/uL (1.0-4.8) Monocytes # (Auto) 0.6 x10^3/uL (0.0-1.1) Eosinophils # (Auto) 0.0 x10^3/uL (0.0-0.7) Basophils # (Auto) 0.0 x10^3/uL (0.0-0.2) Segmented Neutrophils % 88 % (35-66) Band Neutrophils % 1 % (0-9) Lymphocytes % 8 % (24-48) Monocytes % 3 % (0-10) Platelet Estimate Decreased (ADEQUATE) Anisocytosis Slight Sodium Level 141 mmol/L (136-145) Potassium Level 3.4 mmol/L (3.5-5.1) Chloride Level 98 mmol/L (98-107) Carbon Dioxide Level 43 mmol/L (21-32) Anion Gap 0 (6-14) Blood Urea Nitrogen 39 mg/dL (7-20) Creatinine 1.0 mg/dL (0.6-1.0) Estimated GFR (Cockcroft-Gault) 55.5 BUN/Creatinine Ratio 39 (6-20) Glucose Level 94 mg/dL (70-99) Calcium Level 8.6 mg/dL (8.5-10.1) Total Bilirubin 0.3 mg/dL (0.2-1.0) Aspartate Amino Transf (AST/SGOT) 47 U/L (15-37) Alanine Aminotransferase (ALT/SGPT) 87 U/L (14-59) Alkaline Phosphatase 43 U/L (46-116) Total Protein 5.4 g/dL (6.4-8.2) Albumin 2.6 g/dL (3.4-5.0) Albumin/Globulin Ratio 0.9 (1.0-1.7) Test 10/28/20 11:34 Glucose (Fingerstick) 158 mg/dL (70-99) Physical Exam HEENT: Neck Supple W Full Motion Chest: Symmetric LUNGS: Other (crackles) Heart: RRR (SR with intermittent pacing) Abdomen: Soft N/T Extremities: No Calf Tenderness Neurology: alert, oriented, follow commands Assessment Assessment 1. Atypical chest pain: possibly from bronchospasm. Significant workup last yr including MPI and LHC with no significant CAD 2. Acute on chronic diastolic CHF: LVEF 50% 3. AECOPD: as per pulm 4. HTN: controlled overall 5. HLP 6. 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 Interrogation revealed normal function and no significant arrhythmias. Thoracic impedance with slight volume increase starting earlier this month. 8. CKD; Cr stable 9. PUI; COVID negative 10. GERD exacerbation 11. Hyperkalemia: resolved Recommendations Ongoing diuresis with monitoring of renal function Entresto discontinued due to hyperkalemia COPD treatment per pulmonary Continue PPI. Supportive care Justicifation of Admission Dx: Justifications for Admission: Justification of Admission Dx: Yes SAMM CRUZ MD 10/28/202117: CARDIO Progress Notes Assessment Assessment Patient seen and examined. Agree with CLEANER AND TRIMMER's assessment and plan. Ac on chr diastolic HF better compensated with diuresis Ongoing dyspnea secondary to COPD exacerbation - manage per pulm team CP very atypical, reproducible to palpation. Doubt cardiac etiology. Recent cardiac cath did not show any significant CAD Recent BLENDING LINE ATTENDANT-D interrogation normal 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 APRN Oct 28, 2020 12:26 SAMM CRUZ MD Oct 28, 2020 21:18
[2020-10-28] MEDS: methylPREDNISolone SOD SUCC PF 40 MG/ML VIAL. IV SCH ×2 (14:25→22:18)
[2020-10-28 15:00] VITALS: BP 182/72
[2020-10-28] MEDS ORDERED: POTASSIUM CHLORIDE 20 MEQ TABLET.ER. PO ONE (15:30)
[2020-10-28] MEDS ORDERED: FUROSEMIDE 40 MG/4 ML VIAL. IVP ONE (15:30)
--- NOTE | 2020-10-28 16:18 | RAD ---
Exam performed: CT scan of the chest without contrast. Indication: Respiratory failure Date of Service: 10/28/2020.Comparison: CT chest without contrast from 05/09/2020 and priors Technique: Contiguous helical acquisitions are obtained through the chest without IV contrast. Sagit sharif and coronal reformatted images are obtained and reviewed. CT chest findings: Soft tissue density nodule in the right upper lobe appears slightly larger and measures approximately 6 mm (previously 5 mm. New soft tissue density nodules are seen in the left lung as follows, 3.5 mm nodule in the anterior left upper lobe, axial image 16/62, 3.8 mm nodule in the left upper lobe, axia l image 19/62, 5.4 mm in a 4 mm and a 5.4 mm nodule in the left upper lobe, axial image 23/62. A pleu ral-based nodule in the anterior left lingula is stable. Mild emphysematous changes are seen. There a re stable prominent chronic interstitial markings in both lungs. Lack of IV contrast limits evaluation of neck and intrathoracic great vessels, however they appear g rossly normal in course and caliber. No dominant mediastinal, hilar or axillary lymphadenopathy seen . The central airway is patent. There is no pleural effusion or pneumothorax. Limited evaluation of the upper abdominal structures demonstrates a small calcification in the right kidney perhaps nonobstructing calculus. Bones are normal.. Impression CT chest: 1. Mild interval increase in the size of previously seen nodules in both lungs. Interval development of some new nodules. Metastasis is suspected. 2. Emphysematous and chronic interstitial changes seen in both lungs. PQRS Compliance Statement: One or more of the following individualized dose reduction techniques were utilized for this examinat ion: 1. Automated exposure control 2. Adjustment of the mA and/or kV according to patient size 3. Use of iterative reconstruction technique Electronically signed by: Bekah Moon MD (10/28/2020 4:16 PM) [facility] HOSPITALEliceo
[2020-10-28 19:15] VITALS: BP 147/71
[2020-10-28] MEDS: rOPINIRole 1 MG TABLET. PO SCH (22:18)
[2020-10-28] MEDS: MONTELUKAST SODIUM 10 MG TABLET. PO SCH (22:19)
[2020-10-28] MEDS: AMITRIPTYLINE HCL 25 MG TABLET. PO SCH (22:19)
[2020-10-28] MEDS: ATORVASTATIN CALCIUM 20 MG TABLET PO SCH (22:20)
[2020-10-28 23:10] VITALS: BP 132/58
[2020-10-29 03:25] VITALS: BP 144/58
[2020-10-29 05:33] LABS: BASO % 0 % (0-3); EOS % 0 % (0-3); HEMATOCRIT 29.4 % (36.0-47.0); HEMOGLOBIN 9.3 g/dL (12.0-15.5); LYMPH # 0.4 x10^3/uL (1.0-4.8); LYMPH % 3 % (24-48); MEAN CORPUSCULAR HEMOGLOBIN 31 pg (25-35); MEAN CORPUSCULAR HGB CONC 32 g/dL (31-37); MEAN CORPUSCULAR VOLUME 96 fL (79-100); MONO # 0.4 x10^3/uL (0.0-1.1); MONO % 3 % (0-9); NEUT # 14.2 x10^3/uL (1.8-7.7); NEUT % 95 % (31-73); PLATELET COUNT 113 x10^3/uL (140-400); RED BLOOD COUNT 3.06 x10^6/uL (3.50-5.40); RED CELL DISTRIBUTION WIDTH 16.9 % (11.5-14.5)
[2020-10-29 06:04] LABS: ALBUMIN 2.5 g/dL (3.4-5.0); ALBUMIN/GLOBULIN RATIO 0.9 (1.0-1.7); CREATININE 1.1 mg/dL (0.6-1.0); GFR 49.7; POTASSIUM 4.1 mmol/L (3.5-5.1); TOTAL BILIRUBIN 0.2 mg/dL (0.2-1.0); TOTAL PROTEIN 5.4 g/dL (6.4-8.2)
[2020-10-29] MEDS: methylPREDNISolone SOD SUCC PF 40 MG/ML VIAL. IV SCH ×3 (06:24→21:05)
[2020-10-29 07:00] VITALS: BP 134/60
[2020-10-29] MEDS: INSULIN LISPRO 300 UNITS/3 ML VIAL. SQ SCH ×3 (08:00→17:00)
[2020-10-29] MEDS: IPRATRPIUM/ALBUTEROL 0.5/2.5MG 3 ML NEBU. NEB SCH ×4 (08:17→20:18)
[2020-10-29] MEDS: BUDESONIDE 0.5 MG/2 ML NEBU. NEB SCH ×2 (08:18→20:18)
[2020-10-29] MEDS: LEVOTHYROXINE 50 MCG TABLET PO SCH (08:53)
[2020-10-29] MEDS: FLUTICASONE 50MCG/NASAL SPRAY 16GM BOTTLE. NS SCH (08:53)
[2020-10-29] MEDS: ASPIRIN ENTERIC COATED 81 MG TABLET.DR. PO SCH (08:54)
[2020-10-29] MEDS: ROFLUMILAST 500 MCG TABLET. PO SCH (08:54)
[2020-10-29] MEDS: METOPROLOL SUCC 24HR ER 25 MG TAB.ER.24H. PO SCH (08:54)
[2020-10-29] MEDS: PANTOPRAZOLE 40 MG TABLET.DR. PO SCH (08:54)
[2020-10-29] MEDS: CHOLECALCIFEROL (VITAMIN D3) 1,000 UNIT TABLET PO SCH (08:54)
[2020-10-29] MEDS: CETIRIZINE HCL 10 MG TABLET. PO SCH (08:54)
[2020-10-29] MEDS: ALLOPURINOL 100 MG TABLET. PO SCH (08:54)
[2020-10-29] MEDS: GABAPENTIN 100 MG CAPSULE. PO SCH ×3 (08:57→21:04)
--- NOTE | 2020-10-29 09:02 | PDOC ---
[employer] PROGRESS NOTE Date of Service DOS: DATE: 10/29/20 TIME: 08:55 Chief Complaint Chief Complaint COPD exacerbation History of Present Illness History of Present Illness Ms Mathur is a 65yo F w/ PMHx PMHx chronic respiratory failure, unknown FEV1, COPD, cardiomyopathy, tobacco dependence, in remission, 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 She also c/o worsening SOB. Admitted for COPD exacerbation, tested negative for COVID 19. 10/17: No acute events overnight. Patient has improved dyspnea and she is saturating well on room air. Complains of some cough and sounds congested on my examination. 10/18: No acute events overnight. Patient remains afebrile. No complaints voiced at this time. Patient's chart, labs, images were reviewed and discussed with RN 10/19: No acute events overnight. Patient remains afebrile. Saturating 99% on 3 L take nasal cannula. Patient uses oxygen at home at 2 L nasal cannula. 10/20: No overnight events. Still little short of breath this morning. Currently on 3L, her home O2 is 2L. Having some significant back pain. 10/21: Afebrile. C/o back pain and headache today that are severe. Still very short of breath with coarse rhonchi. Restarted IV steroids. 10/22: Afebrile. Plan she did not sleep at all last night very short of breath with minimal exertion. Pulm consulted, lasix IV x2 administered. 10/23: Afebrile. K5.5. At rest her breathing is much easier today than today lung sounds better. Still requiring IV lasix 10/24: Afebrile. Good UOP after IV lasix dosing. C/o sore throat. steroid IV dosing increased per pulm 10/25: Afebrile. Slept with her room window open despite 21 F temperature outdoors. C/o substernal chest pain, K of 6. Sore throat improved with Cepacol. Overnight had 8 bowel movements after Kayexalate dosing. Potassium now 3.2. She complains of significant leg weakness due to shortness of breath is little worse with compatible with cough especially when she lays flat. On further review she notes that she felt shock while she was at the grocery store 3 weeks ago. Has not had a device interrogation since then. Despite aggressive diuresis BNP has elevated. 10-27-20 - Pt seen and examined - Bonifacio RN - Chart reviewed 10-28-20 - Pt seen and examined. - Bonifacio RN. - Chart reviewed. 10-29-20 - Pt seen and examined. - Bonifacio RN and senior case manager. - Chart reviewed. Vitals/I&O Vitals/I&O: Vital Signs Date Time Temp Pulse Resp B/P (MAP) Pulse Ox O2 Delivery O2 Flow Rate FiO2 10/29/20 08:18 98 Nasal Cannula 3.0 10/29/20 03:25 98.5 84 20 144/58 (86) 98.5 I & O 10/28/20 10/28/20 10/29/20 15:00 23:00 07:00 Intake Total 240 ml 300 ml Output Total 1100 ml 200 ml Balance 240 ml -1100 ml 100 ml Physical Exam General: Alert, Oriented X3, Cooperative, No acute distress Heart: Regular rate (SR), Normal S1, Normal S2 Lungs: Wheezing Abdomen: Normal bowel sounds, Soft, No tenderness Extremities: No clubbing, No cyanosis Skin: No rashes, No breakdown, No significant lesion Labs Labs: Laboratory Tests Test 10/28/20 11:34 10/28/20 16:46 10/28/20 21:09 10/29/20 05:10 Glucose (Fingerstick) 158 mg/dL (70-99) 282 mg/dL (70-99) 283 mg/dL (70-99) White Blood Count 15.0 x10^3/uL (4.0-11.0) Red Blood Count 3.06 x10^6/uL (3.50-5.40) Hemoglobin 9.3 g/dL (12.0-15.5) Hematocrit 29.4 % (36.0-47.0) Mean Corpuscular Volume 96 fL (79-100) Mean Corpuscular Hemoglobin 31 pg (25-35) Mean Corpuscular Hemoglobin Concent 32 g/dL (31-37) Red Cell Distribution Width 16.9 % (11.5-14.5) Platelet Count 113 x10^3/uL (140-400) Neutrophils (%) (Auto) 95 % (31-73) Lymphocytes (%) (Auto) 3 % (24-48) Monocytes (%) (Auto) 3 % (0-9) Eosinophils (%) (Auto) 0 % (0-3) Basophils (%) (Auto) 0 % (0-3) Neutrophils # (Auto) 14.2 x10^3/uL (1.8-7.7) Lymphocytes # (Auto) 0.4 x10^3/uL (1.0-4.8) Monocytes # (Auto) 0.4 x10^3/uL (0.0-1.1) Eosinophils # (Auto) 0.0 x10^3/uL (0.0-0.7) Basophils # (Auto) 0.0 x10^3/uL (0.0-0.2) Sodium Level 142 mmol/L (136-145) Potassium Level 4.1 mmol/L (3.5-5.1) Chloride Level 98 mmol/L (98-107) Carbon Dioxide Level 41 mmol/L (21-32) Anion Gap 3 (6-14) Blood Urea Nitrogen 29 mg/dL (7-20) Creatinine 1.1 mg/dL (0.6-1.0) Estimated GFR (Cockcroft-Gault) 49.7 BUN/Creatinine Ratio 26 (6-20) Glucose Level 214 mg/dL (70-99) Calcium Level 8.0 mg/dL (8.5-10.1) Total Bilirubin 0.2 mg/dL (0.2-1.0) Aspartate Amino Transf (AST/SGOT) 38 U/L (15-37) Alanine Aminotransferase (ALT/SGPT) 83 U/L (14-59) Alkaline Phosphatase 47 U/L (46-116) Total Protein 5.4 g/dL (6.4-8.2) Albumin 2.5 g/dL (3.4-5.0) Albumin/Globulin Ratio 0.9 (1.0-1.7) Test 10/29/20 08:22 Glucose (Fingerstick) 139 mg/dL (70-99) Review of Systems Review of Systems: No rashes or itching. No vomiting or diarrhea. No headache or dizziness. Assessment and Plan Assessmemt and Plan Problems Medical Problems: (1) Acute exacerbation of chronic obstructive pulmonary disease (COPD) Status: Acute (2) Chest pain, rule out acute myocardial infarction Status: Acute Assessment: 1. COPD exacerbation 2. Atypical chest pain 3. Diastolic CHF Plan: 1. Cont monitoring 2. Code full 3. Trend labs 4. Appreciate specialist input 5. Probable discharge home today Comment Review of Relevant I have reviewed the following items jon (where applicable) has been applied. Medications: Current Medications Medications (Trade) Dose Ordered Sig/Keshav Route PRN Reason Start Time Stop Time Status Last Admin Dose Admin Prednisone (Prednisone) 60 mg DAILY PO 10/28/20 09:00 10/28/20 10:29 DC 10/28/20 09:01 Methylprednisolone Sodium Succinate (SOLU-Medrol 40MG VIAL) 60 mg Q8HRS IV 10/28/20 14:00 10/29/20 06:24 Magnesium Sulfate 50 ml @ 25 mls/hr 1X ONCE IV 10/28/20 10:30 10/28/20 12:29 DC 10/28/20 11:06 Furosemide (Lasix) 40 mg 1X ONCE IVP 10/28/20 15:30 10/28/20 15:32 DC 10/28/20 16:06 Potassium Chloride (Klor-Con) 20 meq 1X ONCE PO 10/28/20 15:30 10/28/20 15:32 DC 10/28/20 16:05 Justifications for Admission Other Justification JULIANA ERNST III DO Oct 29, 2020 09:02
--- NOTE | 2020-10-29 09:11 | SNU/HH DC ---
DISCHARGE WITH HOME HEALTH DISCHARGE INFORMATION: Final Diagnosis: Problems Medical Problems: (1) Acute exacerbation of chronic obstructive pulmonary disease (COPD) Status: Acute (2) Chest pain, rule out acute myocardial infarction Status: Acute Condition on Discharge: Stable CODE STATUS: Code Status: Full HOME HEALTH: Face to Face: I certify this patient is under my care and that I, or a nurse practitioner or physician's payroll and benefits assistant working with me, had a face to face encounter that meets the physician face to face encounter requirements with this patient on []. Medical Complications: COPD Intermediate For: Assess & Educate Safety RN For Eval/Treatment: Yes Physical Therapy For: Evalulation/Treatment Occupational Therapy For: Evaluation/Treatment Home Health Aide For: Self-care NARCOTICS AND VICE DETECTIVE For: Community Resources Pt Meets Homebound Status: Poor coordination w/ amb. POST DISCHARGE ORDERS: Activity Instructions for Disc: Activity as tolerated Weight Bearing Status after Di: No restrictions Bathing Instructions: No Tub Bath until see Dr. CABA AFTER DISCHARGE: Cardiac Wound/Incision Care: Ice to area for comfort, Change dressing, May get incision wet CHECKS AFTER DISCHARGE: Checks after discharge: Check blood press - daily, Check blood sugar, ac/hs, Weigh Yourself Daily TREATMENT/EQUIPMENT ORDERS: Adaptive Equipment Issued: None Discharge Respiratory Equipmen: Oxygen CERTIFICATION STATEMENT: Certification Statement: Certification Statement: Based on the above finding, I certify that this patient is confined to the home and needs intermittent fci care, physical therapy and/or speech therapy, or continues to need occupational therapy.~ This patient is under my care, and I have initiated the establishment of the plan of care.~ This patient will be followed by myself or a community physician who will periodically review the plan of care. Home Meds Active Scripts Doxycycline Hyclate (DOXYCYCLINE HYCLATE) 100 Mg Tablet, 1 TAB PO BID for copd, #14 TAB Prov:DEMETRA BABIN MD 05/16/20 Ipratropium/Albuterol Sulfate (DUONEB 0.5-3(2.5) MG/3 ML) 3 Ml Ampul.neb, 3 ML NEB Q4HRS for WHEEZING, COUGH for 14 Days, #84 EACH Prov:PHONG YEBOAH MD 10/22/19 Reported Medications Gabapentin (GABAPENTIN ) 100 Mg Capsule, 100 MG PO TID for NEUROGENIC PAIN, CAP 10/18/20 Alendronate Sodium (ALENDRONATE SODIUM) 70 Mg Tablet, 1 TAB PO WEEKLY for 10/16/20 Fluticasone Propionate (FLUTICASONE PROPIONATE NASAL SPRAY) 16 Gm [place].susp, 2 SPRAY NS DAILY for , EACH 10/16/20 Allopurinol (ALLOPURINOL) 300 Mg Tablet, 1 TAB PO DAILY for gout 10/16/20 Prednisone (PREDNISONE) 20 Mg Tablet, 1 TAB PO BID for 10/16/20 Fluticasone/Umeclidin/Vilanter (Trelegy Ellipta 100-62.5-25) 1 Each Blst.w.dev, 1 EACH IH DAILY for rx 03/17/20 Omeprazole Magnesium (PRILOSEC OTC) 20 Mg Tablet.dr, 40 MG PO DAILY for rx, TAB 03/17/20 Sacubitril/Valsartan (Entresto 49 mg-51 mg Tablet) 1 Each Tablet, 49-51 MG PO BID for bp 07/30/19 Potassium Chloride (K-Tab ER) 20 Meq Tablet.er, 20 MEQ PO DAILY for hypokalemia 07/30/19 Montelukast Sodium (MONTELUKAST SODIUM TABLET ) 10 Mg Tablet, 10 MG PO HS for FOR ASTHMA, TAB 0 Refills 07/29/19 Levocetirizine Dihydrochloride (LEVOCETIRIZINE DIHYDROCHLORIDE) 5 Mg Tablet, 5 MG PO DAILY for allergies, TAB 07/29/19 Amitriptyline Hcl (AMITRIPTYLINE HCL) 25 Mg Tablet, 25 MG PO QHS for nerve pain, TAB 07/29/19 Acetaminophen (TYLENOL) 325 Mg Tablet, 650 MG PO PRN Q4HRS PRN for PAIN, TAB 07/29/19 Aspirin (ASPIR 81) 81 Mg Tablet.dr, 1 TAB PO DAILY, #30 TAB 5 Refills 01/03/18 Metoprolol Succinate (METOPROLOL SUCCINATE ( XL )) 25 Mg Tab.er.24h, 25 MG PO DAILY for FOR HYPERTENSION, #30 TAB 0 Refills 01/03/18 Cholecalciferol (Vitamin D3) (VITAMIN D3) 1,000 Unit Tablet, 1 TAB PO DAILY, #30 TAB 5 Refills 01/02/18 Torsemide (TORSEMIDE) 20 Mg Tablet, 1 TAB PO DAILY, #90 TAB 1 Refill 01/02/18 Roflumilast (DALIRESP) 500 Mcg Tablet, 1 TAB PO DAILY, #90 TAB 3 Refills 09/23/17 Atorvastatin Calcium (ATORVASTATIN CALCIUM) 20 Mg Tablet, 20 MG PO HS for FOR CHOLESTEROL, #30 TAB 0 Refills 09/23/17 Ropinirole Hcl (REQUIP) 1 Mg Tablet, 3 TAB PO QHS, #30 TAB 2 Refills 09/23/17 Albuterol Sulfate (PROAIR HFA INHALER) 8.5 Gm Hfa.aer.ad, 1 PUFF INH PRN Q6HRS PRN for SHORTNESS OF BREATH, INHALER 0 Refills 09/23/17 Levothyroxine Sodium (LEVOTHYROXINE SODIUM) 50 Mcg Tablet, 1 TAB PO DAILY, #30 TAB 5 Refills 09/23/17 JULIANA ERNST III DO Oct 29, 2020 09:11
--- NOTE | 2020-10-29 10:11 | NUR ---
SS assisting town planner. SS reviewed pt chart and discussed with pt RN. Pt is currently requiring oxygen at three liters nasal canula. Pt has home oxygen at home. PT/OT recommended home with home health. Pt is walking over 200 feet independent with roller walker per PT notes. Pt is accepted on services with [facility], ; fax [phone]. SS phoned and faxed discharge orders to [facility]. SS notified that Dr. Ledbetter is wanting pt to stay one more night. SS discussed with Dr. Ledbetter. He reported that he is still concerned about exacerbation and wheezing. Pt on IV solu-medrol. Dr. Ledbetter asked about LTACH. SS contacted Teena at [facility] and reviewed pt and was notified that pt does not meet medical criteria for LTACH. Dr. Ledbetter notified. community development planner and case project management consultant notified. SS will continue to follow for discharge planning as needed.
--- NOTE | 2020-10-29 10:13 | PDOC ---
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 CABLE SUPERVISOR 10/29/20 1013: CARDIO Progress Notes Date and Time Date of Service 10/29/20 Time of Evaluation 1000 Subjective Subjective: No Chest Pain, No Palpitations, Other (still SOA) Vitals Vitals Vital Signs Date Time Temp Pulse Resp B/P (MAP) Pulse Ox O2 Delivery O2 Flow Rate FiO2 10/29/20 08:54 84 144/58 10/29/20 08:18 98 Nasal Cannula 3.0 10/29/20 07:00 97.9 19 97.9 Weight Weight [ ] Input and Output Intake and Output Intake and Output 10/29/20 07:00 Intake Total 540 ml Output Total 1300 ml Balance -760 ml Intake Oral 540 ml Output Urine Total 1300 ml # Voids 2 Laboratory Labs Laboratory Tests Test 10/28/20 11:34 10/28/20 16:46 10/28/20 21:09 10/29/20 05:10 Glucose (Fingerstick) 158 mg/dL (70-99) 282 mg/dL (70-99) 283 mg/dL (70-99) White Blood Count 15.0 x10^3/uL (4.0-11.0) Red Blood Count 3.06 x10^6/uL (3.50-5.40) Hemoglobin 9.3 g/dL (12.0-15.5) Hematocrit 29.4 % (36.0-47.0) Mean Corpuscular Volume 96 fL (79-100) Mean Corpuscular Hemoglobin 31 pg (25-35) Mean Corpuscular Hemoglobin Concent 32 g/dL (31-37) Red Cell Distribution Width 16.9 % (11.5-14.5) Platelet Count 113 x10^3/uL (140-400) Neutrophils (%) (Auto) 95 % (31-73) Lymphocytes (%) (Auto) 3 % (24-48) Monocytes (%) (Auto) 3 % (0-9) Eosinophils (%) (Auto) 0 % (0-3) Basophils (%) (Auto) 0 % (0-3) Neutrophils # (Auto) 14.2 x10^3/uL (1.8-7.7) Lymphocytes # (Auto) 0.4 x10^3/uL (1.0-4.8) Monocytes # (Auto) 0.4 x10^3/uL (0.0-1.1) Eosinophils # (Auto) 0.0 x10^3/uL (0.0-0.7) Basophils # (Auto) 0.0 x10^3/uL (0.0-0.2) Sodium Level 142 mmol/L (136-145) Potassium Level 4.1 mmol/L (3.5-5.1) Chloride Level 98 mmol/L (98-107) Carbon Dioxide Level 41 mmol/L (21-32) Anion Gap 3 (6-14) Blood Urea Nitrogen 29 mg/dL (7-20) Creatinine 1.1 mg/dL (0.6-1.0) Estimated GFR (Cockcroft-Gault) 49.7 BUN/Creatinine Ratio 26 (6-20) Glucose Level 214 mg/dL (70-99) Calcium Level 8.0 mg/dL (8.5-10.1) Total Bilirubin 0.2 mg/dL (0.2-1.0) Aspartate Amino Transf (AST/SGOT) 38 U/L (15-37) Alanine Aminotransferase (ALT/SGPT) 83 U/L (14-59) Alkaline Phosphatase 47 U/L (46-116) Total Protein 5.4 g/dL (6.4-8.2) Albumin 2.5 g/dL (3.4-5.0) Albumin/Globulin Ratio 0.9 (1.0-1.7) Test 10/29/20 08:22 Glucose (Fingerstick) 139 mg/dL (70-99) Physical Exam HEENT: Neck Supple W Full Motion Chest: Symmetric LUNGS: Other (crackles, diffused expiratory wheezes) Heart: RRR (SR with intermittent pacing) Abdomen: Soft N/T Extremities: No Calf Tenderness Neurology: alert, oriented, follow commands Assessment Assessment 1. Acute respiratory failure; multifactorial with AECOPD, bronchospasms, CHF. CT chest with increasing lung nodules with concerns for malignancy. 2. Acute on chronic diastolic CHF: LVEF 50%. better compensated with diuresis. Recent cardiac cath did not show any significant CAD 3. HTN: controlled overall 4. HLP 5. Hx of NICM: recovered 6. DRAY DRIVER-D: Biotronik. Interrogation revealed normal function and no significant arrhythmias. Thoracic impedance with slight volume increase starting earlier this month. 7. CKD; Cr stable 8. PUI; COVID negative 9. Hyperkalemia: resolved Recommendations Continue Torsemide. Additional diuresis PRN Hold BB with ongoing wheezing Ongoing lung optimization as per pulmonary Continue PPI. Supportive care Justicifation of Admission Dx: Justifications for Admission: Justification of Admission Dx: Yes SAMM CRUZ MD 10/29/20 2212: CARDIO Progress Notes Assessment Assessment Patient seen and examined. Agree with SUPERVISOR GLYCERIN's assessment and plan. Ac on chr diastolic HF better compensated with diuresis Ongoing dyspnea secondary to COPD exacerbation - manage per pulm team CP very atypical, reproducible to palpation. Doubt cardiac etiology. Recent cardiac cath did not show any significant CAD Recent DRAY DRIVER-D interrogation normal 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 APRN Oct 29, 2020 10:13 SAMM CRUZ MD Oct 29, 2020 22:12
--- NOTE | 2020-10-29 10:52 | PDOC ---
PULMONARY PROGRESS NOTES DATE: 10/29/20 TIME: 10:46 Subjective Patient remains on 3 liters nasal cannula oxygen still wheezing mild SOB, and cough not feeling any better Vitals Vital Signs Date Time Temp Pulse Resp B/P (MAP) Pulse Ox O2 Delivery O2 Flow Rate FiO2 10/29/20 08:54 84 144/58 10/29/20 08:18 98 Nasal Cannula 3.0 10/29/20 07:00 97.9 19 97.9 ROS: No Nausea, No Chest Pain, No Abdominal Pain, No Increase Cough General: Alert, Oriented X4, No acute distress Lungs: Wheezing Cardiovascular: S1, S2 Abdomen: Soft, Non-tender Neuro Exam: Alert, Oriented Extremities: No Edema Labs Laboratory Tests Test 10/27/20 11:51 10/27/20 17:08 10/27/20 20:39 10/28/20 05:10 Glucose (Fingerstick) 141 mg/dL (70-99) 186 mg/dL (70-99) 238 mg/dL (70-99) White Blood Count 16.2 x10^3/uL (4.0-11.0) Red Blood Count 3.21 x10^6/uL (3.50-5.40) Hemoglobin 9.8 g/dL (12.0-15.5) Hematocrit 30.4 % (36.0-47.0) Mean Corpuscular Volume 95 fL (79-100) Mean Corpuscular Hemoglobin 30 pg (25-35) Mean Corpuscular Hemoglobin Concent 32 g/dL (31-37) Red Cell Distribution Width 17.1 % (11.5-14.5) Platelet Count 121 x10^3/uL (140-400) Neutrophils (%) (Auto) 85 % (31-73) Lymphocytes (%) (Auto) 11 % (24-48) Monocytes (%) (Auto) 4 % (0-9) Eosinophils (%) (Auto) 0 % (0-3) Basophils (%) (Auto) 0 % (0-3) Neutrophils # (Auto) 13.8 x10^3/uL (1.8-7.7) Lymphocytes # (Auto) 1.8 x10^3/uL (1.0-4.8) Monocytes # (Auto) 0.6 x10^3/uL (0.0-1.1) Eosinophils # (Auto) 0.0 x10^3/uL (0.0-0.7) Basophils # (Auto) 0.0 x10^3/uL (0.0-0.2) Segmented Neutrophils % 88 % (35-66) Band Neutrophils % 1 % (0-9) Lymphocytes % 8 % (24-48) Monocytes % 3 % (0-10) Platelet Estimate Decreased (ADEQUATE) Anisocytosis Slight Sodium Level 141 mmol/L (136-145) Potassium Level 3.4 mmol/L (3.5-5.1) Chloride Level 98 mmol/L (98-107) Carbon Dioxide Level 43 mmol/L (21-32) Anion Gap 0 (6-14) Blood Urea Nitrogen 39 mg/dL (7-20) Creatinine 1.0 mg/dL (0.6-1.0) Estimated GFR (Cockcroft-Gault) 55.5 BUN/Creatinine Ratio 39 (6-20) Glucose Level 94 mg/dL (70-99) Calcium Level 8.6 mg/dL (8.5-10.1) Total Bilirubin 0.3 mg/dL (0.2-1.0) Aspartate Amino Transf (AST/SGOT) 47 U/L (15-37) Alanine Aminotransferase (ALT/SGPT) 87 U/L (14-59) Alkaline Phosphatase 43 U/L (46-116) Total Protein 5.4 g/dL (6.4-8.2) Albumin 2.6 g/dL (3.4-5.0) Albumin/Globulin Ratio 0.9 (1.0-1.7) Test 10/28/20 08:05 10/28/20 11:34 10/28/20 16:46 10/28/20 21:09 Glucose (Fingerstick) 100 mg/dL (70-99) 158 mg/dL (70-99) 282 mg/dL (70-99) 283 mg/dL (70-99) Test 10/29/20 05:10 10/29/20 08:22 White Blood Count 15.0 x10^3/uL (4.0-11.0) Red Blood Count 3.06 x10^6/uL (3.50-5.40) Hemoglobin 9.3 g/dL (12.0-15.5) Hematocrit 29.4 % (36.0-47.0) Mean Corpuscular Volume 96 fL (79-100) Mean Corpuscular Hemoglobin 31 pg (25-35) Mean Corpuscular Hemoglobin Concent 32 g/dL (31-37) Red Cell Distribution Width 16.9 % (11.5-14.5) Platelet Count 113 x10^3/uL (140-400) Neutrophils (%) (Auto) 95 % (31-73) Lymphocytes (%) (Auto) 3 % (24-48) Monocytes (%) (Auto) 3 % (0-9) Eosinophils (%) (Auto) 0 % (0-3) Basophils (%) (Auto) 0 % (0-3) Neutrophils # (Auto) 14.2 x10^3/uL (1.8-7.7) Lymphocytes # (Auto) 0.4 x10^3/uL (1.0-4.8) Monocytes # (Auto) 0.4 x10^3/uL (0.0-1.1) Eosinophils # (Auto) 0.0 x10^3/uL (0.0-0.7) Basophils # (Auto) 0.0 x10^3/uL (0.0-0.2) Sodium Level 142 mmol/L (136-145) Potassium Level 4.1 mmol/L (3.5-5.1) Chloride Level 98 mmol/L (98-107) Carbon Dioxide Level 41 mmol/L (21-32) Anion Gap 3 (6-14) Blood Urea Nitrogen 29 mg/dL (7-20) Creatinine 1.1 mg/dL (0.6-1.0) Estimated GFR (Cockcroft-Gault) 49.7 BUN/Creatinine Ratio 26 (6-20) Glucose Level 214 mg/dL (70-99) Calcium Level 8.0 mg/dL (8.5-10.1) Total Bilirubin 0.2 mg/dL (0.2-1.0) Aspartate Amino Transf (AST/SGOT) 38 U/L (15-37) Alanine Aminotransferase (ALT/SGPT) 83 U/L (14-59) Alkaline Phosphatase 47 U/L (46-116) Total Protein 5.4 g/dL (6.4-8.2) Albumin 2.5 g/dL (3.4-5.0) Albumin/Globulin Ratio 0.9 (1.0-1.7) Glucose (Fingerstick) 139 mg/dL (70-99) Laboratory Tests Test 10/28/20 11:34 10/28/20 16:46 10/28/20 21:09 10/29/20 05:10 Glucose (Fingerstick) 158 mg/dL (70-99) 282 mg/dL (70-99) 283 mg/dL (70-99) White Blood Count 15.0 x10^3/uL (4.0-11.0) Red Blood Count 3.06 x10^6/uL (3.50-5.40) Hemoglobin 9.3 g/dL (12.0-15.5) Hematocrit 29.4 % (36.0-47.0) Mean Corpuscular Volume 96 fL (79-100) Mean Corpuscular Hemoglobin 31 pg (25-35) Mean Corpuscular Hemoglobin Concent 32 g/dL (31-37) Red Cell Distribution Width 16.9 % (11.5-14.5) Platelet Count 113 x10^3/uL (140-400) Neutrophils (%) (Auto) 95 % (31-73) Lymphocytes (%) (Auto) 3 % (24-48) Monocytes (%) (Auto) 3 % (0-9) Eosinophils (%) (Auto) 0 % (0-3) Basophils (%) (Auto) 0 % (0-3) Neutrophils # (Auto) 14.2 x10^3/uL (1.8-7.7) Lymphocytes # (Auto) 0.4 x10^3/uL (1.0-4.8) Monocytes # (Auto) 0.4 x10^3/uL (0.0-1.1) Eosinophils # (Auto) 0.0 x10^3/uL (0.0-0.7) Basophils # (Auto) 0.0 x10^3/uL (0.0-0.2) Sodium Level 142 mmol/L (136-145) Potassium Level 4.1 mmol/L (3.5-5.1) Chloride Level 98 mmol/L (98-107) Carbon Dioxide Level 41 mmol/L (21-32) Anion Gap 3 (6-14) Blood Urea Nitrogen 29 mg/dL (7-20) Creatinine 1.1 mg/dL (0.6-1.0) Estimated GFR (Cockcroft-Gault) 49.7 BUN/Creatinine Ratio 26 (6-20) Glucose Level 214 mg/dL (70-99) Calcium Level 8.0 mg/dL (8.5-10.1) Total Bilirubin 0.2 mg/dL (0.2-1.0) Aspartate Amino Transf (AST/SGOT) 38 U/L (15-37) Alanine Aminotransferase (ALT/SGPT) 83 U/L (14-59) Alkaline Phosphatase 47 U/L (46-116) Total Protein 5.4 g/dL (6.4-8.2) Albumin 2.5 g/dL (3.4-5.0) Albumin/Globulin Ratio 0.9 (1.0-1.7) Test 10/29/20 08:22 Glucose (Fingerstick) 139 mg/dL (70-99) Medications Active Scripts Medications Dose Route/Sig Max Daily Dose Days Date Category Gabapentin (Gabapentin) 100 Mg Capsule 100 Mg PO TID 10/18/20 Reported Alendronate Sodium 70 Mg Tablet 1 Tab PO WEEKLY 10/16/20 Reported Fluticasone Propionate Nasal [place] (Fluticasone Propionate) 16 Gm [place].susp 2 [place] NS DAILY 10/16/20 Reported Allopurinol 300 Mg Tablet 1 Tab PO DAILY 10/16/20 Reported Prednisone 20 Mg Tablet 1 Tab PO BID 10/16/20 Reported Doxycycline Hyclate 100 Mg Tablet 1 Tab PO BID 05/16/20 Rx Trelegy Ellipta 100-62.5-25 (Fluticasone/Umeclidin/Vilanter) 1 Each Blst.w.dev 1 Each IH DAILY 03/17/20 Reported Prilosec Otc (Omeprazole Magnesium) 20 Mg Tablet.dr 40 Mg PO DAILY 03/17/20 Reported Duoneb 0.5-3(2.5) Mg/3 Ml (Albuterol/Ipratropium) 3 Ml Ampul.neb 3 Ml NEB Q4HRS 14 10/22/19 Rx Entresto 49 mg-51 mg Tablet (Sacubitril/Valsartan) 1 Each Tablet 49-51 Mg PO BID 07/30/19 Reported K-Tab ER (Potassium Chloride) 20 Meq Tablet.er 20 Meq PO DAILY 07/30/19 Reported Montelukast Sodium Tablet (Montelukast Sodium) 10 Mg Tablet 10 Mg PO HS 07/29/19 Reported Levocetirizine Dihydrochloride 5 Mg Tablet 5 Mg PO DAILY 07/29/19 Reported Amitriptyline Hcl 25 Mg Tablet 25 Mg PO QHS 07/29/19 Reported Tylenol (Acetaminophen) 325 Mg Tablet 650 Mg PO PRN Q4HRS PRN 07/29/19 Reported Aspir 81 (Aspirin) 81 Mg Tablet.dr 1 Tab PO DAILY 01/03/18 Reported Metoprolol Succinate ( Xl ) (Metoprolol Succinate) 25 Mg Tab.er.24h 25 Mg PO DAILY 01/03/18 Reported Vitamin D3 (Cholecalciferol (Vitamin D3)) 1,000 Unit Tablet 1 Tab PO DAILY 01/02/18 Reported Torsemide 20 Mg Tablet 1 Tab PO DAILY 01/02/18 Reported Daliresp (Roflumilast) 500 Mcg Tablet 1 Tab PO DAILY 09/23/17 Reported Atorvastatin Calcium 20 Mg Tablet 20 Mg PO HS 09/23/17 Reported Requip (Ropinirole Hcl) 1 Mg Tablet 3 Tab PO QHS 09/23/17 Reported Proair Hfa Inhaler (Albuterol Sulfate) 8.5 Gm Hfa.aer.ad 1 Puff INH PRN Q6HRS PRN 09/23/17 Reported Levothyroxine Sodium 50 Mcg Tablet 1 Tab PO DAILY 09/23/[address] chest Impression CT chest: 1. Mild interval increase in the size of previously seen nodules in both lungs. Interval development of some new nodules. Metastasis is suspected. 2. Emphysematous and chronic interstitial changes seen in both lungs. Impression . IMPRESSION: 1. Acute hypoxic respiratory failure with persistent faint bronchospasm. Likely related to combination of acute exacerbation of chronic obstructive pulmonary disease and acute on chronic diastolic heart failure. 2. Persistent bronchospasm, likely contributed by diastolic heart failure. Her chest x-ray had some mild cephalization of vessels. 3. Underlying chronic obstructive pulmonary disease, could be severe. Her FEV1 is unknown. 4. Abnormal ct chest with mild interstitial thickening/ enlarged bilateral lung nodules, still 4-6mm in size Plan . Continue supplemental oxygen, on 3 liters N/C IV steroids Mag sulfate prn Needs a repeat ct chest in 3 months, Nodules too small for PET scan but may help with any other focus of malignancy. will arrange as OP in Nov Continue Pulmicort and DuoNebs/ daliresp Symptomatic treatment of cough Monitor renal function Hold Metoprolol for now not ready for dc DVT/GI PPX D/W IMELDA ALARCON MD Oct 29, 2020 10:52
[2020-10-29 11:00] VITALS: BP 146/56
[2020-10-29] MEDS: TORSEMIDE 20 MG TABLET. PO SCH (12:46)
[2020-10-29] MEDS: LIDOCAINE (700MG/PATCH) PATCH. TD SCH (12:46)
[2020-10-29 15:00] VITALS: BP 145/65
[2020-10-29 19:32] VITALS: BP 151/61
[2020-10-29] MEDS: ATORVASTATIN CALCIUM 20 MG TABLET PO SCH (21:03)
[2020-10-29] MEDS: MONTELUKAST SODIUM 10 MG TABLET. PO SCH (21:03)
[2020-10-29] MEDS: rOPINIRole 1 MG TABLET. PO SCH (21:03)
[2020-10-29] MEDS: AMITRIPTYLINE HCL 25 MG TABLET. PO SCH (21:04)
[2020-10-29] MEDS: traMADol 50 MG TABLET PO PRN (21:06)
[2020-10-29 22:09] VITALS: BP 141/62
[2020-10-30 02:49] VITALS: BP 144/53
[2020-10-30] MEDS: methylPREDNISolone SOD SUCC PF 40 MG/ML VIAL. IV SCH ×3 (06:16→21:44)
[2020-10-30 07:00] VITALS: BP 150/66
[2020-10-30 07:34] LABS: BASO % 0 % (0-3); EOS % 0 % (0-3); HEMATOCRIT 28.9 % (36.0-47.0); HEMOGLOBIN 9.3 g/dL (12.0-15.5); LYMPH # 0.7 x10^3/uL (1.0-4.8); LYMPH % 5 % (24-48); MEAN CORPUSCULAR HEMOGLOBIN 31 pg (25-35); MEAN CORPUSCULAR HGB CONC 32 g/dL (31-37); MEAN CORPUSCULAR VOLUME 96 fL (79-100); MONO # 0.5 x10^3/uL (0.0-1.1); MONO % 4 % (0-9); NEUT # 11.6 x10^3/uL (1.8-7.7); NEUT % 91 % (31-73); PLATELET COUNT 117 x10^3/uL (140-400); RED BLOOD COUNT 3.01 x10^6/uL (3.50-5.40); RED CELL DISTRIBUTION WIDTH 17.3 % (11.5-14.5); WHITE BLOOD COUNT 12.8 x10^3/uL (4.0-11.0)
[2020-10-30 07:48] LABS: ALBUMIN 2.6 g/dL (3.4-5.0); CALCIUM 8.1 mg/dL (8.5-10.1); CREATININE 1.1 mg/dL (0.6-1.0); GFR 49.7; POTASSIUM 4.1 mmol/L (3.5-5.1); TOTAL BILIRUBIN 0.2 mg/dL (0.2-1.0); TOTAL PROTEIN 5.3 g/dL (6.4-8.2)
[2020-10-30] MEDS: INSULIN LISPRO 300 UNITS/3 ML VIAL. SQ SCH ×3 (08:00→17:00)
[2020-10-30] MEDS: BUDESONIDE 0.5 MG/2 ML NEBU. NEB SCH ×2 (08:11→20:23)
[2020-10-30] MEDS: IPRATRPIUM/ALBUTEROL 0.5/2.5MG 3 ML NEBU. NEB SCH ×4 (08:11→20:23)
[2020-10-30] MEDS: LIDOCAINE (700MG/PATCH) PATCH. TD SCH (08:28)
[2020-10-30] MEDS: CHOLECALCIFEROL (VITAMIN D3) 1,000 UNIT TABLET PO SCH (08:29)
[2020-10-30] MEDS: LEVOTHYROXINE 50 MCG TABLET PO SCH (08:29)
[2020-10-30] MEDS: GABAPENTIN 100 MG CAPSULE. PO SCH ×3 (08:29→21:42)
[2020-10-30] MEDS: PANTOPRAZOLE 40 MG TABLET.DR. PO SCH (08:29)
[2020-10-30] MEDS: ALLOPURINOL 100 MG TABLET. PO SCH (08:29)
[2020-10-30] MEDS: ASPIRIN ENTERIC COATED 81 MG TABLET.DR. PO SCH (08:29)
[2020-10-30] MEDS: CETIRIZINE HCL 10 MG TABLET. PO SCH (08:29)
[2020-10-30] MEDS: ROFLUMILAST 500 MCG TABLET. PO SCH (08:29)
[2020-10-30] MEDS: TORSEMIDE 20 MG TABLET. PO SCH (08:29)
[2020-10-30] MEDS: FLUTICASONE 50MCG/NASAL SPRAY 16GM BOTTLE. NS SCH (08:31)
[2020-10-30] MEDS ORDERED: predniSONE 20 MG TABLET PO SCH (09:00)
--- NOTE | 2020-10-30 10:27 | PDOC ---
PULMONARY PROGRESS NOTES DATE: 10/30/20 TIME: 10:25 Subjective Patient remains on 3 liters nasal cannula oxygen mild SOB, and cough not feeling any better Vitals Vital Signs Date Time Temp Pulse Resp B/P (MAP) Pulse Ox O2 Delivery O2 Flow Rate FiO2 10/30/20 08:13 98 Nasal Cannula 3.0 10/30/20 07:00 97.9 79 20 150/66 (94) 97.9 ROS: No Nausea, No Chest Pain, No Abdominal Pain, No Increase Cough General: Alert, Oriented X4, No acute distress Lungs: Wheezing (faint LLL) Cardiovascular: S1, S2 Abdomen: Soft, Non-tender Neuro Exam: Alert, Oriented Extremities: No Edema Labs Laboratory Tests Test 10/28/20 11:34 10/28/20 16:46 10/28/20 21:09 10/29/20 05:10 Glucose (Fingerstick) 158 mg/dL (70-99) 282 mg/dL (70-99) 283 mg/dL (70-99) White Blood Count 15.0 x10^3/uL (4.0-11.0) Red Blood Count 3.06 x10^6/uL (3.50-5.40) Hemoglobin 9.3 g/dL (12.0-15.5) Hematocrit 29.4 % (36.0-47.0) Mean Corpuscular Volume 96 fL (79-100) Mean Corpuscular Hemoglobin 31 pg (25-35) Mean Corpuscular Hemoglobin Concent 32 g/dL (31-37) Red Cell Distribution Width 16.9 % (11.5-14.5) Platelet Count 113 x10^3/uL (140-400) Neutrophils (%) (Auto) 95 % (31-73) Lymphocytes (%) (Auto) 3 % (24-48) Monocytes (%) (Auto) 3 % (0-9) Eosinophils (%) (Auto) 0 % (0-3) Basophils (%) (Auto) 0 % (0-3) Neutrophils # (Auto) 14.2 x10^3/uL (1.8-7.7) Lymphocytes # (Auto) 0.4 x10^3/uL (1.0-4.8) Monocytes # (Auto) 0.4 x10^3/uL (0.0-1.1) Eosinophils # (Auto) 0.0 x10^3/uL (0.0-0.7) Basophils # (Auto) 0.0 x10^3/uL (0.0-0.2) Sodium Level 142 mmol/L (136-145) Potassium Level 4.1 mmol/L (3.5-5.1) Chloride Level 98 mmol/L (98-107) Carbon Dioxide Level 41 mmol/L (21-32) Anion Gap 3 (6-14) Blood Urea Nitrogen 29 mg/dL (7-20) Creatinine 1.1 mg/dL (0.6-1.0) Estimated GFR (Cockcroft-Gault) 49.7 BUN/Creatinine Ratio 26 (6-20) Glucose Level 214 mg/dL (70-99) Calcium Level 8.0 mg/dL (8.5-10.1) Total Bilirubin 0.2 mg/dL (0.2-1.0) Aspartate Amino Transf (AST/SGOT) 38 U/L (15-37) Alanine Aminotransferase (ALT/SGPT) 83 U/L (14-59) Alkaline Phosphatase 47 U/L (46-116) Total Protein 5.4 g/dL (6.4-8.2) Albumin 2.5 g/dL (3.4-5.0) Albumin/Globulin Ratio 0.9 (1.0-1.7) Test 10/29/20 08:22 10/29/20 11:43 10/29/20 16:40 10/30/20 07:01 Glucose (Fingerstick) 139 mg/dL (70-99) 271 mg/dL (70-99) 164 mg/dL (70-99) White Blood Count 12.8 x10^3/uL (4.0-11.0) Red Blood Count 3.01 x10^6/uL (3.50-5.40) Hemoglobin 9.3 g/dL (12.0-15.5) Hematocrit 28.9 % (36.0-47.0) Mean Corpuscular Volume 96 fL (79-100) Mean Corpuscular Hemoglobin 31 pg (25-35) Mean Corpuscular Hemoglobin Concent 32 g/dL (31-37) Red Cell Distribution Width 17.3 % (11.5-14.5) Platelet Count 117 x10^3/uL (140-400) Neutrophils (%) (Auto) 91 % (31-73) Lymphocytes (%) (Auto) 5 % (24-48) Monocytes (%) (Auto) 4 % (0-9) Eosinophils (%) (Auto) 0 % (0-3) Basophils (%) (Auto) 0 % (0-3) Neutrophils # (Auto) 11.6 x10^3/uL (1.8-7.7) Lymphocytes # (Auto) 0.7 x10^3/uL (1.0-4.8) Monocytes # (Auto) 0.5 x10^3/uL (0.0-1.1) Eosinophils # (Auto) 0.0 x10^3/uL (0.0-0.7) Basophils # (Auto) 0.0 x10^3/uL (0.0-0.2) Sodium Level 141 mmol/L (136-145) Potassium Level 4.1 mmol/L (3.5-5.1) Chloride Level 99 mmol/L (98-107) Carbon Dioxide Level 42 mmol/L (21-32) Anion Gap 0 (6-14) Blood Urea Nitrogen 29 mg/dL (7-20) Creatinine 1.1 mg/dL (0.6-1.0) Estimated GFR (Cockcroft-Gault) 49.7 BUN/Creatinine Ratio 26 (6-20) Glucose Level 141 mg/dL (70-99) Calcium Level 8.1 mg/dL (8.5-10.1) Total Bilirubin 0.2 mg/dL (0.2-1.0) Aspartate Amino Transf (AST/SGOT) 46 U/L (15-37) Alanine Aminotransferase (ALT/SGPT) 98 U/L (14-59) Alkaline Phosphatase 45 U/L (46-116) Total Protein 5.3 g/dL (6.4-8.2) Albumin 2.6 g/dL (3.4-5.0) Albumin/Globulin Ratio 1.0 (1.0-1.7) Test 10/30/20 07:24 Glucose (Fingerstick) 151 mg/dL (70-99) Laboratory Tests Test 10/29/20 11:43 10/29/20 16:40 10/30/20 07:10/30/20 07:24 Glucose (Fingerstick) 271 mg/dL (70-99) 164 mg/dL (70-99) 151 mg/dL (70-99) White Blood Count 12.8 x10^3/uL (4.0-11.0) Red Blood Count 3.01 x10^6/uL (3.50-5.40) Hemoglobin 9.3 g/dL (12.0-15.5) Hematocrit 28.9 % (36.0-47.0) Mean Corpuscular Volume 96 fL (79-100) Mean Corpuscular Hemoglobin 31 pg (25-35) Mean Corpuscular Hemoglobin Concent 32 g/dL (31-37) Red Cell Distribution Width 17.3 % (11.5-14.5) Platelet Count 117 x10^3/uL (140-400) Neutrophils (%) (Auto) 91 % (31-73) Lymphocytes (%) (Auto) 5 % (24-48) Monocytes (%) (Auto) 4 % (0-9) Eosinophils (%) (Auto) 0 % (0-3) Basophils (%) (Auto) 0 % (0-3) Neutrophils # (Auto) 11.6 x10^3/uL (1.8-7.7) Lymphocytes # (Auto) 0.7 x10^3/uL (1.0-4.8) Monocytes # (Auto) 0.5 x10^3/uL (0.0-1.1) Eosinophils # (Auto) 0.0 x10^3/uL (0.0-0.7) Basophils # (Auto) 0.0 x10^3/uL (0.0-0.2) Sodium Level 141 mmol/L (136-145) Potassium Level 4.1 mmol/L (3.5-5.1) Chloride Level 99 mmol/L (98-107) Carbon Dioxide Level 42 mmol/L (21-32) Anion Gap 0 (6-14) Blood Urea Nitrogen 29 mg/dL (7-20) Creatinine 1.1 mg/dL (0.6-1.0) Estimated GFR (Cockcroft-Gault) 49.7 BUN/Creatinine Ratio 26 (6-20) Glucose Level 141 mg/dL (70-99) Calcium Level 8.1 mg/dL (8.5-10.1) Total Bilirubin 0.2 mg/dL (0.2-1.0) Aspartate Amino Transf (AST/SGOT) 46 U/L (15-37) Alanine Aminotransferase (ALT/SGPT) 98 U/L (14-59) Alkaline Phosphatase 45 U/L (46-116) Total Protein 5.3 g/dL (6.4-8.2) Albumin 2.6 g/dL (3.4-5.0) Albumin/Globulin Ratio 1.0 (1.0-1.7) Medications Active Scripts Medications Dose Route/Sig Max Daily Dose Days Date Category Gabapentin (Gabapentin) 100 Mg Capsule 100 Mg PO TID 10/18/20 Reported Alendronate Sodium 70 Mg Tablet 1 Tab PO WEEKLY 10/16/20 Reported Fluticasone Propionate Nasal [place] (Fluticasone Propionate) 16 Gm [place].susp 2 [place] NS DAILY 10/16/20 Reported Allopurinol 300 Mg Tablet 1 Tab PO DAILY 10/16/20 Reported Prednisone 20 Mg Tablet 1 Tab PO BID 10/16/20 Reported Doxycycline Hyclate 100 Mg Tablet 1 Tab PO BID 05/16/20 Rx Trelegy Ellipta 100-62.5-25 (Fluticasone/Umeclidin/Vilanter) 1 Each Blst.w.dev 1 Each IH DAILY 03/17/20 Reported Prilosec Otc (Omeprazole Magnesium) 20 Mg Tablet.dr 40 Mg PO DAILY 03/17/20 Reported Duoneb 0.5-3(2.5) Mg/3 Ml (Albuterol/Ipratropium) 3 Ml Ampul.neb 3 Ml NEB Q4HRS 14 10/22/19 Rx Entresto 49 mg-51 mg Tablet (Sacubitril/Valsartan) 1 Each Tablet 49-51 Mg PO BID 07/30/19 Reported K-Tab ER (Potassium Chloride) 20 Meq Tablet.er 20 Meq PO DAILY 07/30/19 Reported Montelukast Sodium Tablet (Montelukast Sodium) 10 Mg Tablet 10 Mg PO HS 07/29/19 Reported Levocetirizine Dihydrochloride 5 Mg Tablet 5 Mg PO DAILY 07/29/19 Reported Amitriptyline Hcl 25 Mg Tablet 25 Mg PO QHS 07/29/19 Reported Tylenol (Acetaminophen) 325 Mg Tablet 650 Mg PO PRN Q4HRS PRN 07/29/19 Reported Aspir 81 (Aspirin) 81 Mg Tablet.dr 1 Tab PO DAILY 01/03/18 Reported Metoprolol Succinate ( Xl ) (Metoprolol Succinate) 25 Mg Tab.er.24h 25 Mg PO DAILY 01/03/18 Reported Vitamin D3 (Cholecalciferol (Vitamin D3)) 1,000 Unit Tablet 1 Tab PO DAILY 01/02/18 Reported Torsemide 20 Mg Tablet 1 Tab PO DAILY 01/02/18 Reported Daliresp (Roflumilast) 500 Mcg Tablet 1 Tab PO DAILY 09/23/17 Reported Atorvastatin Calcium 20 Mg Tablet 20 Mg PO HS 09/23/17 Reported Requip (Ropinirole Hcl) 1 Mg Tablet 3 Tab PO QHS 09/23/17 Reported Proair Hfa Inhaler (Albuterol Sulfate) 8.5 Gm Hfa.aer.ad 1 Puff INH PRN Q6HRS PRN 09/23/17 Reported Levothyroxine Sodium 50 Mcg Tablet 1 Tab PO DAILY 09/23/[address] chest Impression CT chest: 1. Mild interval increase in the size of previously seen nodules in both lungs. Interval development of some new nodules. Metastasis is suspected. 2. Emphysematous and chronic interstitial changes seen in both lungs. Impression . IMPRESSION: 1. Acute hypoxic respiratory failure with persistent faint bronchospasm. Likely related to combination of acute exacerbation of chronic obstructive pulmonary disease and acute on chronic diastolic heart failure. 2. Persistent bronchospasm, likely contributed by diastolic heart failure. Her chest x-ray had some mild cephalization of vessels. 3. Underlying chronic obstructive pulmonary disease, could be severe. Her FEV1 is unknown. 4. Abnormal ct chest with mild interstitial thickening/ enlarged bilateral lung nodules, still 4-6mm in size--now scheduled for outpatient PET scan Plan . Continue supplemental oxygen, on 3 liters N/C Continue IV steroids Patient has slowly progressively growing lung nodules, scheduled for outpatient appointment in December with a PET scan prior to appointment Continue Pulmicort and DuoNebs/ daliresp Symptomatic treatment of cough Monitor renal function Physical therapy/Occupational Therapy DVT/GI PPX D/W RN Patient would benefit from custodial facility/rehab versus discharging home, social work to assist with DC planning IMELDA EASTMAN MD Oct 30, 2020 10:27
[2020-10-30 11:00] VITALS: BP 138/56
--- NOTE | 2020-10-30 11:31 | PDOC ---
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 She also c/o worsening SOB. Admitted for COPD exacerbation, tested negative for COVID 19. 10/17: No acute events overnight. Patient has improved dyspnea and she is saturating well on room air. Complains of some cough and sounds congested on my examination. 10/18: No acute events overnight. Patient remains afebrile. No complaints voiced at this time. Patient's chart, labs, images were reviewed and discussed with RN 10/19: No acute events overnight. Patient remains afebrile. Saturating 99% on 3 L take nasal cannula. Patient uses oxygen at home at 2 L nasal cannula. 10/20: No overnight events. Still little short of breath this morning. Currently on 3L, her home O2 is 2L. Having some significant back pain. 10/21: Afebrile. C/o back pain and headache today that are severe. Still very short of breath with coarse rhonchi. Restarted IV steroids. 10/22: Afebrile. Plan she did not sleep at all last night very short of breath with minimal exertion. Pulm consulted, lasix IV x2 administered. 10/23: Afebrile. K5.5. At rest her breathing is much easier today than today lung sounds better. Still requiring IV lasix 10/24: Afebrile. Good UOP after IV lasix dosing. C/o sore throat. steroid IV dosing increased per pulm 10/25: Afebrile. Slept with her room window open despite 21 F temperature outdoors. C/o substernal chest pain, K of 6. Sore throat improved with Cepacol. Overnight had 8 bowel movements after Kayexalate dosing. Potassium now 3.2. She complains of significant leg weakness due to shortness of breath is little worse with compatible with cough especially when she lays flat. On further review she notes that she felt shock while she was at the grocery store 3 weeks ago. Has not had a device interrogation since then. Despite aggressive diuresis BNP has elevated. 10-27-20 - Pt seen and examined - Bonifacio RN - Chart reviewed 10-28-20 - Pt seen and examined. - Bonifacio RN. - Chart reviewed. 10-29-20 - Pt seen and examined. - Bonifacio RN and disability case manager. - Chart reviewed. 10/30/2020 -Patient seen and examined -Bonifacio RN and disability case manager -Patient with more SOB. Pulmonology said pt is not ready for d/c. -CT showed increased nodules on lung tissue -Holding pt's metoprolol -Chart reviewed Vitals/I&O Vitals/I&O: Vital Signs Date Time Temp Pulse Resp B/P (MAP) Pulse Ox O2 Delivery O2 Flow Rate FiO2 10/30/20 08:13 98 Nasal Cannula 3.0 10/30/20 07:00 97.9 79 20 150/66 (94) 97.9 I & O 10/29/20 10/29/20 10/30/20 15:00 23:00 07:00 Intake Total 800 ml 120 ml 850 ml Output Total 960 ml 1700 ml 1100 ml Balance -160 ml -1580 ml -250 ml Physical Exam General: Alert, Oriented X3, Cooperative, No acute distress Heart: Regular rate (SR), Normal S1, Normal S2 Lungs: Wheezing (faint LLL) Abdomen: Normal bowel sounds, Soft, No tenderness Extremities: No clubbing, No cyanosis Skin: No rashes, No breakdown, No significant lesion Labs Labs: Laboratory Tests Test 10/29/20 11:43 10/29/20 16:40 10/30/20 07:01 10/30/20 07:24 Glucose (Fingerstick) 271 mg/dL (70-99) 164 mg/dL (70-99) 151 mg/dL (70-99) White Blood Count 12.8 x10^3/uL (4.0-11.0) Red Blood Count 3.01 x10^6/uL (3.50-5.40) Hemoglobin 9.3 g/dL (12.0-15.5) Hematocrit 28.9 % (36.0-47.0) Mean Corpuscular Volume 96 fL (79-100) Mean Corpuscular Hemoglobin 31 pg (25-35) Mean Corpuscular Hemoglobin Concent 32 g/dL (31-37) Red Cell Distribution Width 17.3 % (11.5-14.5) Platelet Count 117 x10^3/uL (140-400) Neutrophils (%) (Auto) 91 % (31-73) Lymphocytes (%) (Auto) 5 % (24-48) Monocytes (%) (Auto) 4 % (0-9) Eosinophils (%) (Auto) 0 % (0-3) Basophils (%) (Auto) 0 % (0-3) Neutrophils # (Auto) 11.6 x10^3/uL (1.8-7.7) Lymphocytes # (Auto) 0.7 x10^3/uL (1.0-4.8) Monocytes # (Auto) 0.5 x10^3/uL (0.0-1.1) Eosinophils # (Auto) 0.0 x10^3/uL (0.0-0.7) Basophils # (Auto) 0.0 x10^3/uL (0.0-0.2) Sodium Level 141 mmol/L (136-145) Potassium Level 4.1 mmol/L (3.5-5.1) Chloride Level 99 mmol/L (98-107) Carbon Dioxide Level 42 mmol/L (21-32) Anion Gap 0 (6-14) Blood Urea Nitrogen 29 mg/dL (7-20) Creatinine 1.1 mg/dL (0.6-1.0) Estimated GFR (Cockcroft-Gault) 49.7 BUN/Creatinine Ratio 26 (6-20) Glucose Level 141 mg/dL (70-99) Calcium Level 8.1 mg/dL (8.5-10.1) Total Bilirubin 0.2 mg/dL (0.2-1.0) Aspartate Amino Transf (AST/SGOT) 46 U/L (15-37) Alanine Aminotransferase (ALT/SGPT) 98 U/L (14-59) Alkaline Phosphatase 45 U/L (46-116) Total Protein 5.3 g/dL (6.4-8.2) Albumin 2.6 g/dL (3.4-5.0) Albumin/Globulin Ratio 1.0 (1.0-1.7) Review of Systems Review of Systems: Denies NVD. Denies fever. Assessment and Plan Assessmemt and Plan Problems Medical Problems: (1) Acute exacerbation of chronic obstructive pulmonary disease (COPD) Status: Acute (2) Chest pain, rule out acute myocardial infarction Status: Acute COPD exacerbation Atypical chest pain Diastolic CHF 10/30/2020 Plan 1. MAR eval for pulmonary issues 2 Supplemental oxygen as needed 3 Breathing treatments 4 Cardiac monitoring 5 Steroids 6 Continue to hold metoprolol 7 Appreciate subspecialist input 8 Full code 9 Trend labs 10 Home meds Comment Review of Relevant I have reviewed the following items jon (where applicable) has been applied. Medications: Current Medications Medications (Trade) Dose Ordered Sig/Keshav Route PRN Reason Start Time Stop Time Status Last Admin Dose Admin Lidocaine (Lidoderm) 2 patch DAILY TD 10/29/20 12:30 10/30/20 08:28 Justifications for Admission Other Justification JULIANA ERNST III DO Oct 30, 2020 11:31
--- NOTE | 2020-10-30 12:06 | PDOC ---
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 STULL INSTALLER 10/30/20 1206: CARDIO Progress Notes Date and Time Date of Service 10/30/20 Time of Evaluation 1200 Subjective Subjective: No Chest Pain, No Palpitations, Other (still SOA) Vitals Vitals Vital Signs Date Time Temp Pulse Resp B/P (MAP) Pulse Ox O2 Delivery O2 Flow Rate FiO2 10/30/20 08:13 98 Nasal Cannula 3.0 10/30/20 07:00 97.9 79 20 150/66 (94) 97.9 Weight Weight [ ] Input and Output Intake and Output Intake and Output 10/30/20 07:00 Intake Total 1770 ml Output Total 3760 ml Balance -1990 ml Intake Oral 1770 ml Output Urine Total 3760 ml Laboratory Labs Laboratory Tests Test 10/29/20 16:40 10/30/20 07:01 10/30/20 07:24 10/30/20 11:54 Glucose (Fingerstick) 164 mg/dL (70-99) 151 mg/dL (70-99) 159 mg/dL (70-99) White Blood Count 12.8 x10^3/uL (4.0-11.0) Red Blood Count 3.01 x10^6/uL (3.50-5.40) Hemoglobin 9.3 g/dL (12.0-15.5) Hematocrit 28.9 % (36.0-47.0) Mean Corpuscular Volume 96 fL (79-100) Mean Corpuscular Hemoglobin 31 pg (25-35) Mean Corpuscular Hemoglobin Concent 32 g/dL (31-37) Red Cell Distribution Width 17.3 % (11.5-14.5) Platelet Count 117 x10^3/uL (140-400) Neutrophils (%) (Auto) 91 % (31-73) Lymphocytes (%) (Auto) 5 % (24-48) Monocytes (%) (Auto) 4 % (0-9) Eosinophils (%) (Auto) 0 % (0-3) Basophils (%) (Auto) 0 % (0-3) Neutrophils # (Auto) 11.6 x10^3/uL (1.8-7.7) Lymphocytes # (Auto) 0.7 x10^3/uL (1.0-4.8) Monocytes # (Auto) 0.5 x10^3/uL (0.0-1.1) Eosinophils # (Auto) 0.0 x10^3/uL (0.0-0.7) Basophils # (Auto) 0.0 x10^3/uL (0.0-0.2) Sodium Level 141 mmol/L (136-145) Potassium Level 4.1 mmol/L (3.5-5.1) Chloride Level 99 mmol/L (98-107) Carbon Dioxide Level 42 mmol/L (21-32) Anion Gap 0 (6-14) Blood Urea Nitrogen 29 mg/dL (7-20) Creatinine 1.1 mg/dL (0.6-1.0) Estimated GFR (Cockcroft-Gault) 49.7 BUN/Creatinine Ratio 26 (6-20) Glucose Level 141 mg/dL (70-99) Calcium Level 8.1 mg/dL (8.5-10.1) Total Bilirubin 0.2 mg/dL (0.2-1.0) Aspartate Amino Transf (AST/SGOT) 46 U/L (15-37) Alanine Aminotransferase (ALT/SGPT) 98 U/L (14-59) Alkaline Phosphatase 45 U/L (46-116) Total Protein 5.3 g/dL (6.4-8.2) Albumin 2.6 g/dL (3.4-5.0) Albumin/Globulin Ratio 1.0 (1.0-1.7) Physical Exam HEENT: Neck Supple W Full Motion Chest: Symmetric LUNGS: Other (crackles, diffused expiratory wheezes) Heart: RRR (SR with intermittent pacing) Abdomen: Soft N/T Extremities: No Calf Tenderness Neurology: alert, oriented, follow commands Assessment Assessment 1. Acute respiratory failure; multifactorial with AECOPD, bronchospasms, CHF. CT chest with increasing lung nodules with concerns for malignancy. 2. Acute on chronic diastolic CHF: LVEF 50%. better compensated with diuresis. Recent cardiac cath did not show any significant CAD 3. HTN: controlled overall 4. HLP 5. 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 Interrogation revealed normal function and no significant arrhythmias. Thoracic impedance with slight volume increase starting earlier this month. 7. CKD; Cr stable 8. PUI; COVID negative 9. Hyperkalemia: resolved Recommendations Continue Torsemide. Additional diuresis PRN Hold BB with ongoing wheezing Ongoing lung optimization as per pulmonary Continue PPI. Supportive care Follow up in our office with Dr. Driscoll as scheduled Justicifation of Admission Dx: Justifications for Admission: Justification of Admission Dx: Yes SAMM DRISCOLL MD 10/30/202033: CARDIO Progress Notes Assessment Assessment Patient seen and examined. Agree with CLEARANCE DIVER's assessment and plan. Ac on chr diastolic HF better compensated with diuresis Continue treatment of AECOPD per pulm team CP very atypical, reproducible to palpation. Doubt cardiac etiology. Recent cardiac cath did not show any significant CAD Recent AUTOMOBILE RADIO REPAIRER-D interrogation normal CT chest findings concerning for malignancy - defer w/u to pulm team 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 APRN Oct 30, 2020 12:06 SAMM DRISCOLL MD Oct 30, 2020 20:34
[2020-10-30] MEDS: traMADol 50 MG TABLET PO PRN ×2 (12:44→21:43)
[2020-10-30 15:00] VITALS: BP 145/66
[2020-10-30 20:14] VITALS: BP 123/62
[2020-10-30] MEDS: rOPINIRole 1 MG TABLET. PO SCH (21:42)
[2020-10-30] MEDS: ATORVASTATIN CALCIUM 20 MG TABLET PO SCH (21:42)
[2020-10-30] MEDS: AMITRIPTYLINE HCL 25 MG TABLET. PO SCH (21:42)
[2020-10-30] MEDS: MONTELUKAST SODIUM 10 MG TABLET. PO SCH (21:42)
[2020-10-30 22:27] VITALS: BP 133/57
[2020-10-31 02:33] VITALS: BP 168/60
[2020-10-31 04:24] LABS: BASO % 0 % (0-3); EOS % 0 % (0-3); HEMATOCRIT 29.8 % (36.0-47.0); HEMOGLOBIN 9.7 g/dL (12.0-15.5); LYMPH # 0.4 x10^3/uL (1.0-4.8); LYMPH % 3 % (24-48); MEAN CORPUSCULAR HEMOGLOBIN 31 pg (25-35); MEAN CORPUSCULAR HGB CONC 33 g/dL (31-37); MEAN CORPUSCULAR VOLUME 96 fL (79-100); MONO # 0.3 x10^3/uL (0.0-1.1); MONO % 3 % (0-9); NEUT # 11.4 x10^3/uL (1.8-7.7); NEUT % 94 % (31-73); PLATELET COUNT 118 x10^3/uL (140-400); RED BLOOD COUNT 3.12 x10^6/uL (3.50-5.40); RED CELL DISTRIBUTION WIDTH 17.6 % (11.5-14.5); WHITE BLOOD COUNT 12.1 x10^3/uL (4.0-11.0)
[2020-10-31 04:44] LABS: ALBUMIN 2.6 g/dL (3.4-5.0); ALBUMIN/GLOBULIN RATIO 0.9 (1.0-1.7); CALCIUM 8.8 mg/dL (8.5-10.1); CREATININE 1.1 mg/dL (0.6-1.0); GFR 49.7; POTASSIUM 4.2 mmol/L (3.5-5.1); TOTAL BILIRUBIN 0.2 mg/dL (0.2-1.0); TOTAL PROTEIN 5.4 g/dL (6.4-8.2)
[2020-10-31] MEDS: methylPREDNISolone SOD SUCC PF 40 MG/ML VIAL. IV SCH ×2 (06:02→14:05)
[2020-10-31 07:00] VITALS: BP 148/71
[2020-10-31] MEDS: INSULIN LISPRO 300 UNITS/3 ML VIAL. SQ SCH ×2 (08:00→13:01)
[2020-10-31] MEDS: BUDESONIDE 0.5 MG/2 ML NEBU. NEB SCH (08:11)
[2020-10-31] MEDS: IPRATRPIUM/ALBUTEROL 0.5/2.5MG 3 ML NEBU. NEB SCH ×3 (08:11→15:21)
[2020-10-31] MEDS: ASPIRIN ENTERIC COATED 81 MG TABLET.DR. PO SCH (09:02)
[2020-10-31] MEDS: CHOLECALCIFEROL (VITAMIN D3) 1,000 UNIT TABLET PO SCH (09:02)
[2020-10-31] MEDS: PANTOPRAZOLE 40 MG TABLET.DR. PO SCH (09:02)
[2020-10-31] MEDS: TORSEMIDE 20 MG TABLET. PO SCH (09:03)
[2020-10-31] MEDS: GABAPENTIN 100 MG CAPSULE. PO SCH ×2 (09:03→14:04)
[2020-10-31] MEDS: ALLOPURINOL 100 MG TABLET. PO SCH (09:03)
[2020-10-31] MEDS: ROFLUMILAST 500 MCG TABLET. PO SCH (09:03)
[2020-10-31] MEDS: LEVOTHYROXINE 50 MCG TABLET PO SCH (09:03)
[2020-10-31] MEDS: CETIRIZINE HCL 10 MG TABLET. PO SCH (09:03)
[2020-10-31] MEDS: FLUTICASONE 50MCG/NASAL SPRAY 16GM BOTTLE. NS SCH (09:04)
[2020-10-31] MEDS: LIDOCAINE (700MG/PATCH) PATCH. TD SCH (09:04)
--- NOTE | 2020-10-31 09:24 | PDOC ---
PULMONARY PROGRESS NOTES DATE: 10/31/20 TIME: 09:23 Subjective Patient remains on 3 liters nasal cannula oxygen Feeling a little bit better today [facility] Vitals Vital Signs Date Time Temp Pulse Resp B/P (MAP) Pulse Ox O2 Delivery O2 Flow Rate FiO2 10/31/20 09:03 104 148/71 10/31/20 08:11 96 Nasal Cannula 3.0 10/31/20 02:33 98.6 20 98.6 ROS: No Nausea, No Chest Pain, No Abdominal Pain, No Increase Cough General: Alert, Oriented X4, No acute distress Cardiovascular: S1, S2 Abdomen: Soft, Non-tender Neuro Exam: Alert, Oriented Extremities: No Edema Labs Laboratory Tests Test 10/29/20 11:43 10/29/20 16:40 10/30/20 07:01 10/30/20 07:24 Glucose (Fingerstick) 271 mg/dL (70-99) 164 mg/dL (70-99) 151 mg/dL (70-99) White Blood Count 12.8 x10^3/uL (4.0-11.0) Red Blood Count 3.01 x10^6/uL (3.50-5.40) Hemoglobin 9.3 g/dL (12.0-15.5) Hematocrit 28.9 % (36.0-47.0) Mean Corpuscular Volume 96 fL (79-100) Mean Corpuscular Hemoglobin 31 pg (25-35) Mean Corpuscular Hemoglobin Concent 32 g/dL (31-37) Red Cell Distribution Width 17.3 % (11.5-14.5) Platelet Count 117 x10^3/uL (140-400) Neutrophils (%) (Auto) 91 % (31-73) Lymphocytes (%) (Auto) 5 % (24-48) Monocytes (%) (Auto) 4 % (0-9) Eosinophils (%) (Auto) 0 % (0-3) Basophils (%) (Auto) 0 % (0-3) Neutrophils # (Auto) 11.6 x10^3/uL (1.8-7.7) Lymphocytes # (Auto) 0.7 x10^3/uL (1.0-4.8) Monocytes # (Auto) 0.5 x10^3/uL (0.0-1.1) Eosinophils # (Auto) 0.0 x10^3/uL (0.0-0.7) Basophils # (Auto) 0.0 x10^3/uL (0.0-0.2) Sodium Level 141 mmol/L (136-145) Potassium Level 4.1 mmol/L (3.5-5.1) Chloride Level 99 mmol/L (98-107) Carbon Dioxide Level 42 mmol/L (21-32) Anion Gap 0 (6-14) Blood Urea Nitrogen 29 mg/dL (7-20) Creatinine 1.1 mg/dL (0.6-1.0) Estimated GFR (Cockcroft-Gault) 49.7 BUN/Creatinine Ratio 26 (6-20) Glucose Level 141 mg/dL (70-99) Calcium Level 8.1 mg/dL (8.5-10.1) Total Bilirubin 0.2 mg/dL (0.2-1.0) Aspartate Amino Transf (AST/SGOT) 46 U/L (15-37) Alanine Aminotransferase (ALT/SGPT) 98 U/L (14-59) Alkaline Phosphatase 45 U/L (46-116) Total Protein 5.3 g/dL (6.4-8.2) Albumin 2.6 g/dL (3.4-5.0) Albumin/Globulin Ratio 1.0 (1.0-1.7) Test 10/30/20 11:54 10/30/20 17:17 10/30/20 20:25 10/31/20 04:00 Glucose (Fingerstick) 159 mg/dL (70-99) 193 mg/dL (70-99) 384 mg/dL (70-99) White Blood Count 12.1 x10^3/uL (4.0-11.0) Red Blood Count 3.12 x10^6/uL (3.50-5.40) Hemoglobin 9.7 g/dL (12.0-15.5) Hematocrit 29.8 % (36.0-47.0) Mean Corpuscular Volume 96 fL (79-100) Mean Corpuscular Hemoglobin 31 pg (25-35) Mean Corpuscular Hemoglobin Concent 33 g/dL (31-37) Red Cell Distribution Width 17.6 % (11.5-14.5) Platelet Count 118 x10^3/uL (140-400) Neutrophils (%) (Auto) 94 % (31-73) Lymphocytes (%) (Auto) 3 % (24-48) Monocytes (%) (Auto) 3 % (0-9) Eosinophils (%) (Auto) 0 % (0-3) Basophils (%) (Auto) 0 % (0-3) Neutrophils # (Auto) 11.4 x10^3/uL (1.8-7.7) Lymphocytes # (Auto) 0.4 x10^3/uL (1.0-4.8) Monocytes # (Auto) 0.3 x10^3/uL (0.0-1.1) Eosinophils # (Auto) 0.0 x10^3/uL (0.0-0.7) Basophils # (Auto) 0.0 x10^3/uL (0.0-0.2) Sodium Level 140 mmol/L (136-145) Potassium Level 4.2 mmol/L (3.5-5.1) Chloride Level 98 mmol/L (98-107) Carbon Dioxide Level 39 mmol/L (21-32) Anion Gap 3 (6-14) Blood Urea Nitrogen 27 mg/dL (7-20) Creatinine 1.1 mg/dL (0.6-1.0) Estimated GFR (Cockcroft-Gault) 49.7 BUN/Creatinine Ratio 25 (6-20) Glucose Level 235 mg/dL (70-99) Calcium Level 8.8 mg/dL (8.5-10.1) Total Bilirubin 0.2 mg/dL (0.2-1.0) Aspartate Amino Transf (AST/SGOT) 42 U/L (15-37) Alanine Aminotransferase (ALT/SGPT) 101 U/L (14-59) Alkaline Phosphatase 50 U/L (46-116) Total Protein 5.4 g/dL (6.4-8.2) Albumin 2.6 g/dL (3.4-5.0) Albumin/Globulin Ratio 0.9 (1.0-1.7) Test 10/31/20 07:23 Glucose (Fingerstick) 156 mg/dL (70-99) Laboratory Tests Test 10/30/20 11:54 10/30/20 17:17 10/30/20 20:25 10/31/20 04:00 Glucose (Fingerstick) 159 mg/dL (70-99) 193 mg/dL (70-99) 384 mg/dL (70-99) White Blood Count 12.1 x10^3/uL (4.0-11.0) Red Blood Count 3.12 x10^6/uL (3.50-5.40) Hemoglobin 9.7 g/dL (12.0-15.5) Hematocrit 29.8 % (36.0-47.0) Mean Corpuscular Volume 96 fL (79-100) Mean Corpuscular Hemoglobin 31 pg (25-35) Mean Corpuscular Hemoglobin Concent 33 g/dL (31-37) Red Cell Distribution Width 17.6 % (11.5-14.5) Platelet Count 118 x10^3/uL (140-400) Neutrophils (%) (Auto) 94 % (31-73) Lymphocytes (%) (Auto) 3 % (24-48) Monocytes (%) (Auto) 3 % (0-9) Eosinophils (%) (Auto) 0 % (0-3) Basophils (%) (Auto) 0 % (0-3) Neutrophils # (Auto) 11.4 x10^3/uL (1.8-7.7) Lymphocytes # (Auto) 0.4 x10^3/uL (1.0-4.8) Monocytes # (Auto) 0.3 x10^3/uL (0.0-1.1) Eosinophils # (Auto) 0.0 x10^3/uL (0.0-0.7) Basophils # (Auto) 0.0 x10^3/uL (0.0-0.2) Sodium Level 140 mmol/L (136-145) Potassium Level 4.2 mmol/L (3.5-5.1) Chloride Level 98 mmol/L (98-107) Carbon Dioxide Level 39 mmol/L (21-32) Anion Gap 3 (6-14) Blood Urea Nitrogen 27 mg/dL (7-20) Creatinine 1.1 mg/dL (0.6-1.0) Estimated GFR (Cockcroft-Gault) 49.7 BUN/Creatinine Ratio 25 (6-20) Glucose Level 235 mg/dL (70-99) Calcium Level 8.8 mg/dL (8.5-10.1) Total Bilirubin 0.2 mg/dL (0.2-1.0) Aspartate Amino Transf (AST/SGOT) 42 U/L (15-37) Alanine Aminotransferase (ALT/SGPT) 101 U/L (14-59) Alkaline Phosphatase 50 U/L (46-116) Total Protein 5.4 g/dL (6.4-8.2) Albumin 2.6 g/dL (3.4-5.0) Albumin/Globulin Ratio 0.9 (1.0-1.7) Test 10/31/20 07:23 Glucose (Fingerstick) 156 mg/dL (70-99) Medications Active Scripts Medications Dose Route/Sig Max Daily Dose Days Date Category Gabapentin (Gabapentin) 100 Mg Capsule 100 Mg PO TID 10/18/20 Reported Alendronate Sodium 70 Mg Tablet 1 Tab PO WEEKLY 10/16/20 Reported Fluticasone Propionate Nasal Maxie (Fluticasone Propionate) 16 Gm Maxie.susp 2 Maxie NS DAILY 10/16/20 Reported Allopurinol 300 Mg Tablet 1 Tab PO DAILY 10/16/20 Reported Prednisone 20 Mg Tablet 1 Tab PO BID 10/16/20 Reported Doxycycline Hyclate 100 Mg Tablet 1 Tab PO BID 05/16/20 Rx Trelegy Ellipta 100-62.5-25 (Fluticasone/Umeclidin/Vilanter) 1 Each Blst.w.dev 1 Each IH DAILY 03/17/20 Reported Prilosec Otc (Omeprazole Magnesium) 20 Mg Tablet.dr 40 Mg PO DAILY 03/17/20 Reported Duoneb 0.5-3(2.5) Mg/3 Ml (Albuterol/Ipratropium) 3 Ml Ampul.neb 3 Ml NEB Q4HRS 14 10/22/19 Rx Entresto 49 mg-51 mg Tablet (Sacubitril/Valsartan) 1 Each Tablet 49-51 Mg PO BID 07/30/19 Reported K-Tab ER (Potassium Chloride) 20 Meq Tablet.er 20 Meq PO DAILY 07/30/19 Reported Montelukast Sodium Tablet (Montelukast Sodium) 10 Mg Tablet 10 Mg PO HS 07/29/19 Reported Levocetirizine Dihydrochloride 5 Mg Tablet 5 Mg PO DAILY 07/29/19 Reported Amitriptyline Hcl 25 Mg Tablet 25 Mg PO QHS 07/29/19 Reported Tylenol (Acetaminophen) 325 Mg Tablet 650 Mg PO PRN Q4HRS PRN 07/29/19 Reported Aspir 81 (Aspirin) 81 Mg Tablet.dr 1 Tab PO DAILY 01/03/18 Reported Metoprolol Succinate ( Xl ) (Metoprolol Succinate) 25 Mg Tab.er.24h 25 Mg PO DAILY 01/03/18 Reported Vitamin D3 (Cholecalciferol (Vitamin D3)) 1,000 Unit Tablet 1 Tab PO DAILY 01/02/18 Reported Torsemide 20 Mg Tablet 1 Tab PO DAILY 01/02/18 Reported Daliresp (Roflumilast) 500 Mcg Tablet 1 Tab PO DAILY 09/23/17 Reported Atorvastatin Calcium 20 Mg Tablet 20 Mg PO HS 09/23/17 Reported Requip (Ropinirole Hcl) 1 Mg Tablet 3 Tab PO QHS 09/23/17 Reported Proair Hfa Inhaler (Albuterol Sulfate) 8.5 Gm Hfa.aer.ad 1 Puff INH PRN Q6HRS PRN 09/23/17 Reported Levothyroxine Sodium 50 Mcg Tablet 1 Tab PO DAILY 09/23/[address] chest Impression CT chest: 1. Mild interval increase in the size of previously seen nodules in both lungs. Interval development of some new nodules. Metastasis is suspected. 2. Emphysematous and chronic interstitial changes seen in both lungs. Impression . IMPRESSION: 1. Acute hypoxic respiratory failure with persistent faint bronchospasm. Likely related to combination of acute exacerbation of chronic obstructive pulmonary disease and acute on chronic diastolic heart failure. 2. Persistent bronchospasm, likely contributed by diastolic heart failure. Her chest x-ray had some mild cephalization of vessels. 3. Underlying chronic obstructive pulmonary disease, could be severe. Her FEV1 is unknown. 4. Abnormal ct chest with mild interstitial thickening/ enlarged bilateral lung nodules, still 4-6mm in size--now scheduled for outpatient PET scan Plan . Continue supplemental oxygen, on 3 liters N/C Continue IV steroids Patient has slowly progressively growing lung nodules, scheduled for outpatient appointment in December with a PET scan prior to appointment Continue Pulmicort and DuoNebs/ daliresp Symptomatic treatment of cough Monitor renal function Physical therapy/Occupational Therapy DVT/GI PPX D/W RN Patient would benefit from [facility] facility/rehab versus discharging home, social work to assist with DC planning--- working on discharge to [facility] LETICIA FORTUNE MD Oct 31, 2020 09:24
[2020-10-31 11:00] VITALS: BP 149/70
--- NOTE | 2020-10-31 11:33 | PDOC ---
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 She also c/o worsening SOB. Admitted for COPD exacerbation, tested negative for COVID 19. 10/17: No acute events overnight. Patient has improved dyspnea and she is saturating well on room air. Complains of some cough and sounds congested on my examination. 10/18: No acute events overnight. Patient remains afebrile. No complaints voiced at this time. Patient's chart, labs, images were reviewed and discussed with RN 10/19: No acute events overnight. Patient remains afebrile. Saturating 99% on 3 L take nasal cannula. Patient uses oxygen at home at 2 L nasal cannula. 10/20: No overnight events. Still little short of breath this morning. Currently on 3L, her home O2 is 2L. Having some significant back pain. 10/21: Afebrile. C/o back pain and headache today that are severe. Still very short of breath with coarse rhonchi. Restarted IV steroids. 10/22: Afebrile. Plan she did not sleep at all last night very short of breath with minimal exertion. Pulm consulted, lasix IV x2 administered. 10/23: Afebrile. K5.5. At rest her breathing is much easier today than today lung sounds better. Still requiring IV lasix 10/24: Afebrile. Good UOP after IV lasix dosing. C/o sore throat. steroid IV dosing increased per pulm 10/25: Afebrile. Slept with her room window open despite 21 F temperature outdoors. C/o substernal chest pain, K of 6. Sore throat improved with Cepacol. Overnight had 8 bowel movements after Kayexalate dosing. Potassium now 3.2. She complains of significant leg weakness due to shortness of breath is little worse with compatible with cough especially when she lays flat. On further review she notes that she felt shock while she was at the grocery store 3 weeks ago. Has not had a device interrogation since then. Despite aggressive diuresis BNP has elevated. 10-27-20 - Pt seen and examined - Ralph RN - Chart reviewed 10-28-20 - Pt seen and examined. - Ralph RN. - Chart reviewed. 10-29-20 - Pt seen and examined. - Ralph RN and case packer. - Chart reviewed. 10/30/2020 -Patient seen and examined -Ralph RN and case packer -Patient with more SOB. Pulmonology said pt is not ready for d/c. -CT showed increased nodules on lung tissue -Holding pt's metoprolol -Chart reviewed 10/31/2020 -Patient seen and examined -Ralph RN and case packer -pt on COPD exaccerbation management including abx -Chart reviewed - ralph pulmonology - pt on cardiac monitoring Vitals/I&O Vitals/I&O: Vital Signs Date Time Temp Pulse Resp B/P (MAP) Pulse Ox O2 Delivery O2 Flow Rate FiO2 10/31/20 09:03 104 148/71 10/31/20 08:11 96 Nasal Cannula 3.0 10/31/20 07:00 98.0 20 98.0 I & O 10/30/20 10/30/20 10/31/20 15:00 23:00 07:00 Intake Total 700 ml 500 ml 500 ml Output Total 400 ml 850 ml Balance 700 ml 100 ml -350 ml Physical Exam General: Alert, Oriented X3, Cooperative, No acute distress Heart: Regular rate (SR), Normal S1, Normal S2 Abdomen: Normal bowel sounds, Soft, No tenderness Extremities: No clubbing, No cyanosis Skin: No rashes, No breakdown, No significant lesion Labs Labs: Laboratory Tests Test 10/30/20 11:54 10/30/20 17:17 10/30/20 20:25 10/31/20 04:00 Glucose (Fingerstick) 159 mg/dL (70-99) 193 mg/dL (70-99) 384 mg/dL (70-99) White Blood Count 12.1 x10^3/uL (4.0-11.0) Red Blood Count 3.12 x10^6/uL (3.50-5.40) Hemoglobin 9.7 g/dL (12.0-15.5) Hematocrit 29.8 % (36.0-47.0) Mean Corpuscular Volume 96 fL (79-100) Mean Corpuscular Hemoglobin 31 pg (25-35) Mean Corpuscular Hemoglobin Concent 33 g/dL (31-37) Red Cell Distribution Width 17.6 % (11.5-14.5) Platelet Count 118 x10^3/uL (140-400) Neutrophils (%) (Auto) 94 % (31-73) Lymphocytes (%) (Auto) 3 % (24-48) Monocytes (%) (Auto) 3 % (0-9) Eosinophils (%) (Auto) 0 % (0-3) Basophils (%) (Auto) 0 % (0-3) Neutrophils # (Auto) 11.4 x10^3/uL (1.8-7.7) Lymphocytes # (Auto) 0.4 x10^3/uL (1.0-4.8) Monocytes # (Auto) 0.3 x10^3/uL (0.0-1.1) Eosinophils # (Auto) 0.0 x10^3/uL (0.0-0.7) Basophils # (Auto) 0.0 x10^3/uL (0.0-0.2) Sodium Level 140 mmol/L (136-145) Potassium Level 4.2 mmol/L (3.5-5.1) Chloride Level 98 mmol/L (98-107) Carbon Dioxide Level 39 mmol/L (21-32) Anion Gap 3 (6-14) Blood Urea Nitrogen 27 mg/dL (7-20) Creatinine 1.1 mg/dL (0.6-1.0) Estimated GFR (Cockcroft-Gault) 49.7 BUN/Creatinine Ratio 25 (6-20) Glucose Level 235 mg/dL (70-99) Calcium Level 8.8 mg/dL (8.5-10.1) Total Bilirubin 0.2 mg/dL (0.2-1.0) Aspartate Amino Transf (AST/SGOT) 42 U/L (15-37) Alanine Aminotransferase (ALT/SGPT) 101 U/L (14-59) Alkaline Phosphatase 50 U/L (46-116) Total Protein 5.4 g/dL (6.4-8.2) Albumin 2.6 g/dL (3.4-5.0) Albumin/Globulin Ratio 0.9 (1.0-1.7) Test 10/31/20 07:23 Glucose (Fingerstick) 156 mg/dL (70-99) Review of Systems Review of Systems: - pt denies NUNO - pt denies change in mentation Assessment and Plan Assessmemt and Plan Problems Medical Problems: (1) Acute exacerbation of chronic obstructive pulmonary disease (COPD) Status: Acute (2) Chest pain, rule out acute myocardial infarction Status: Acute Assessment - COPD exacerbation Plan - continue cardiac monitoring - continue COPD exacerbation management including Abx - pt on O2 supplementation sliding scale Prn - MAR placement pending - appreciate input of subspecialists Comment Review of Relevant I have reviewed the following items jon (where applicable) has been applied. Medications: Current Medications Medications (Trade) Dose Ordered Sig/Keshav Route PRN Reason Start Time Stop Time Status Last Admin Dose Admin Amlodipine Besylate (Norvasc) 5 mg DAILY PO 10/31/20 09:00 10/31/20 09:03 Justifications for Admission Other Justification JULIANA ERNST III DO Oct 31, 2020 11:33
--- NOTE | 2020-10-31 12:17 | SNU/HH DC ---
DISCHARGE ORDERS DISCHARGE INFORMATION: FINAL DIAGNOSIS Problems Medical Problems: (1) Acute exacerbation of chronic obstructive pulmonary disease (COPD) Status: Acute (2) Chest pain, rule out acute myocardial infarction Status: Acute CONDITION ON DISCHARGE: Stable CODE STATUS: Code Status: Full RETIREMENT: SNF STAY <30 DAYS: No HOSPICE: HOSPICE: No HOSPICE EVAL & TREAT: No LTAC: ADMIT TO LTAC: Yes POST DISCHARGE ORDERS: ACTIVITY ORDERS: Activity as tolerated WEIGHT BEARING STATUS: No restrictions BATHING ORDERS: No Tub Bath until see DIET AFTER DISCHARGE: Cardiac WOUND/INCISION CARE: Ice to area for comfort, Change dressing, May get incision wet CHECKS AFTER DISCHARGE: CHECKS AFTER DISCHARGE: Check blood press - daily, Check blood sugar, ac/hs, Weigh Yourself Daily TREATMENT/EQUIPMENT ORDERS: ADAPTIVE EQUIPMENT NEEDED: None RESPIRATORY EQUIPMENT NEEDED: Oxygen Physical Therapy For: Evalulation/Treatment Occupational Therapy For: Evaluation/Treatment DISCHARGE MEDICATIONS: Home Meds Active Scripts Doxycycline Hyclate (DOXYCYCLINE HYCLATE) 100 Mg Tablet, 1 TAB PO BID for copd, #14 TAB Prov:DEMETRA BABIN MD 05/16/20 Ipratropium/Albuterol Sulfate (DUONEB 0.5-3(2.5) MG/3 ML) 3 Ml Ampul.neb, 3 ML NEB Q4HRS for WHEEZING, COUGH for 14 Days, #84 EACH Prov:PHONG YEBOAH MD 10/22/19 Reported Medications Gabapentin (GABAPENTIN ) 100 Mg Capsule, 100 MG PO TID for NEUROGENIC PAIN, CAP 10/18/20 Alendronate Sodium (ALENDRONATE SODIUM) 70 Mg Tablet, 1 TAB PO WEEKLY for 10/16/20 Fluticasone Propionate (FLUTICASONE PROPIONATE NASAL SPRAY) 16 Gm Soldier.susp, 2 SPRAY NS DAILY for , EACH 10/16/20 Allopurinol (ALLOPURINOL) 300 Mg Tablet, 1 TAB PO DAILY for gout 10/16/20 Prednisone (PREDNISONE) 20 Mg Tablet, 1 TAB PO BID for 10/16/20 Fluticasone/Umeclidin/Vilanter (Trelegy Ellipta 100-62.5-25) 1 Each Blst.w.dev, 1 EACH IH DAILY for rx 03/17/20 Omeprazole Magnesium (PRILOSEC OTC) 20 Mg Tablet.dr, 40 MG PO DAILY for rx, TAB 03/17/20 Sacubitril/Valsartan (Entresto 49 mg-51 mg Tablet) 1 Each Tablet, 49-51 MG PO BID for bp 07/30/19 Potassium Chloride (K-Tab ER) 20 Meq Tablet.er, 20 MEQ PO DAILY for hypokalemia 07/30/19 Montelukast Sodium (MONTELUKAST SODIUM TABLET ) 10 Mg Tablet, 10 MG PO HS for FOR ASTHMA, TAB 0 Refills 07/29/19 Levocetirizine Dihydrochloride (LEVOCETIRIZINE DIHYDROCHLORIDE) 5 Mg Tablet, 5 MG PO DAILY for allergies, TAB 07/29/19 Amitriptyline Hcl (AMITRIPTYLINE HCL) 25 Mg Tablet, 25 MG PO QHS for nerve pain, TAB 07/29/19 Acetaminophen (TYLENOL) 325 Mg Tablet, 650 MG PO PRN Q4HRS PRN for PAIN, TAB 07/29/19 Aspirin (ASPIR 81) 81 Mg Tablet.dr, 1 TAB PO DAILY, #30 TAB 5 Refills 01/03/18 Metoprolol Succinate (METOPROLOL SUCCINATE ( XL )) 25 Mg Tab.er.24h, 25 MG PO DAILY for FOR HYPERTENSION, #30 TAB 0 Refills 01/03/18 Cholecalciferol (Vitamin D3) (VITAMIN D3) 1,000 Unit Tablet, 1 TAB PO DAILY, #30 TAB 5 Refills 01/02/18 Torsemide (TORSEMIDE) 20 Mg Tablet, 1 TAB PO DAILY, #90 TAB 1 Refill 01/02/18 Roflumilast (DALIRESP) 500 Mcg Tablet, 1 TAB PO DAILY, #90 TAB 3 Refills 09/23/17 Atorvastatin Calcium (ATORVASTATIN CALCIUM) 20 Mg Tablet, 20 MG PO HS for FOR CHOLESTEROL, #30 TAB 0 Refills 09/23/17 Ropinirole Hcl (REQUIP) 1 Mg Tablet, 3 TAB PO QHS, #30 TAB 2 Refills 09/23/17 Albuterol Sulfate (PROAIR HFA INHALER) 8.5 Gm Hfa.aer.ad, 1 PUFF INH PRN Q6HRS PRN for SHORTNESS OF BREATH, INHALER 0 Refills 09/23/17 Levothyroxine Sodium (LEVOTHYROXINE SODIUM) 50 Mcg Tablet, 1 TAB PO DAILY, #30 TAB 5 Refills 09/23/17 CASTLE,NIAL K III DO Oct 31, 2020 12:17
--- NOTE | 2020-10-31 13:33 | DS ---
DATE OF DISCHARGE: 10/31/2020 ADMISSION DIAGNOSES: 1. Respiratory failure. 2. Chronic obstructive pulmonary disease. DISCHARGE DIAGNOSES: 1. Resolving respiratory failure. 2. End-stage chronic obstructive pulmonary disease. 3. Congestive heart failure. 4. Coronary artery disease. 5. Hypertension. 6. Hyperlipidemia. 7. Hypothyroidism. 8. Cholecystectomy. 9. . 10. Hysterectomy. 11. Knee replacement. 12. Left shoulder surgery. 13. Previous tobacco abuse. CONSULTS: Pulmonary, Medicine and Cardiology. PROCEDURES: None. 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 She presented once again with respiratory failure. We gave her IV antibiotics, steroids, breathing treatments, oxygen, physical therapy and occupational therapy. The above consults were obtained. Over the past few days, she has improved, but she is still extremely weak. The plan is to get her to [facility]. [facility] ACTIVITY: As tolerated. DIET: Low sodium. MEDICATIONS: Please see the MRAD. TOTAL TIME: 38 minutes. JULIANA ERNST DO DR: MARTA/lisa JOB#: [id number] / [id number]
--- NOTE | 2020-10-31 14:57 | NUR ---
Discharge Note: JAYCOB CRAWFORD [address] Discharge instructions and discharge medications reviewed with Amada nurse at [facility] and understanding verbalized. Also educated patient about COPD and need to keep hospital follow ups with cardiology an Pulmonary. Discontinued iv line and catheter intact.
[2020-11-01] MEDS ORDERED: predniSONE 20 MG TABLET PO SCH (09:00)
[2020-11-04] MEDS ORDERED: predniSONE 20 MG TABLET PO SCH (09:00)
[2020-11-19] MEDS ORDERED: APIX5TAB PO ×2 (11:36→16:34)
[2020-11-19] MEDS ORDERED: CYCL5TAB PO (11:36)
[2020-11-19] MEDS ORDERED: SOTA80TA20 PO (11:36)
[2020-11-19] MEDS ORDERED: SACU1TAB7 PO (11:54)
[2020-11-19] MEDS ORDERED: SOTA80TA48 PO (12:55)
[2020-11-19] MEDS ORDERED: SACU1TAB PO (12:55)
== END 2020-10-31 16:00 | DRG 291 ==
LOC: ER 18:42 → 2 NORTH 20:21 → 2 SOUTH 10-16 20:41
PROVIDERS: ADMIT Internal Medicine; ATTEND Internal Medicine
DX: I13.0 Hypertensive heart and chronic kidney disease with heart failure and stage 1 through stage 4 chronic kidney disease, or unspecified chronic kidney disease (principal); I50.33 Acute on chronic diastolic (congestive) heart failure; J96.21 Acute and chronic respiratory failure with hypoxia; N17.9 Acute kidney failure, unspecified; J44.1 Chronic obstructive pulmonary disease with (acute) exacerbation; I42.8 Other cardiomyopathies; E03.9 Hypothyroidism, unspecified; E11.22 Type 2 diabetes mellitus with diabetic chronic kidney disease; E78.00 Pure hypercholesterolemia, unspecified; E78.5 Hyperlipidemia, unspecified; E87.5 Hyperkalemia; G25.81 Restless legs syndrome; I25.10 Atherosclerotic heart disease of native coronary artery without angina pectoris; I25.2 Old myocardial infarction; I27.20 Pulmonary hypertension, unspecified; K21.9 Gastro-esophageal reflux disease without esophagitis; M81.0 Age-related osteoporosis without current pathological fracture; N18.30 Chronic kidney disease, stage 3 unspecified; Z20.822 Contact with and (suspected) exposure to COVID-19; Z82.49 Family history of ischemic heart disease and other diseases of the circulatory system; Z87.891 Personal history of nicotine dependence; Z90.710 Acquired absence of both cervix and uterus; Z95.0 Presence of cardiac pacemaker; Z96.659 Presence of unspecified artificial knee joint; M10.9 Gout, unspecified; M19.90 Unspecified osteoarthritis, unspecified site; Z88.8 Allergy status to other drugs, medicaments and biological substances; Z90.49 Acquired absence of other specified parts of digestive tract
CPT/HCPCS: 36415; 71045; 71250; 80048; 80053; 82962; 83735; 83880; 84484; 85007; 85025; 87426; 93005; 94640; 94667; 94668; 94760; 96365; 96366; 96375; J0610; J0780; J1940; J2920; J2930; J3010; J3475; J3490; J7060; J7512; U0003; 97110-GP; 97116-GP; 97530-GO; 97530-GP; 99291-25; G0378; J7626

== ENCOUNTER 2020-11-04 11:12 | Observation (INO) | payer MEDICARE, OTHER ==
[~2020-11-04] VITALS: Ht 152.4 cm; Wt 75.0 kg
[~2020-11-04 11:12] MED LIST changes: +ALLO300T PO
[2020-11-04 11:34] LABS: BASO # 0.1 x10^3/uL (0.0-0.2); BASO % 1 % (0-3); EOS # 0.1 x10^3/uL (0.0-0.7); EOS % 1 % (0-3); HEMATOCRIT 35.3 % (36.0-47.0); HEMOGLOBIN 11.6 g/dL (12.0-15.5); LYMPH # 2.2 x10^3/uL (1.0-4.8); LYMPH % 14 % (24-48); MEAN CORPUSCULAR HEMOGLOBIN 32 pg (25-35); MEAN CORPUSCULAR HGB CONC 33 g/dL (31-37); MEAN CORPUSCULAR VOLUME 96 fL (79-100); MONO # 0.4 x10^3/uL (0.0-1.1); MONO % 3 % (0-9); NEUT # 12.3 x10^3/uL (1.8-7.7); NEUT % 82 % (31-73); PLATELET COUNT 134 x10^3/uL (140-400); RED BLOOD COUNT 3.67 x10^6/uL (3.50-5.40); RED CELL DISTRIBUTION WIDTH 18.3 % (11.5-14.5); WHITE BLOOD COUNT 15.1 x10^3/uL (4.0-11.0)
[2020-11-04 11:48] LABS: CALCIUM 9.5 mg/dL (8.5-10.1); CREATININE 1.1 mg/dL (0.6-1.0); GFR 49.7; POTASSIUM 3.8 mmol/L (3.5-5.1)
[2020-11-04 11:52] LABS: ALBUMIN 2.7 g/dL (3.4-5.0); ALBUMIN/GLOBULIN RATIO 0.9 (1.0-1.7); TOTAL BILIRUBIN 0.4 mg/dL (0.2-1.0); TOTAL PROTEIN 5.7 g/dL (6.4-8.2)
--- NOTE | 2020-11-04 12:02 | RAD ---
XR CHEST 1V 11/04/2020 11:19 AM INDICATION: Chest pain COMPARISON: 10/27/2020 TECHNIQUE: Portable frontal view of the chest is provided. FINDINGS: The cardiomediastinal silhouette is similar in appearance. Left chest wall cardiac device is in simil ar position. Lungs are clear. There are no significant pleural effusions. There is no pulmonary vascular congestion. No pneumothora x. Degenerative changes of the glenohumeral joints are noted bilaterally, left greater than right. IMPRESSION: There is no acute cardiopulmonary process. Electronically signed by: Nina Franklin MD (11/04/2020 12:00 PM) [id number]
--- NOTE | 2020-11-04 12:17 | PHYS DOC ---
Past Medical History Past Medical History: CAD, CHF, COPD, Diabetes-Type II, High Cholesterol, Hypertension, Hypothyroid Past Surgical History: Other Additional Past Surgical Histo: left shoulder Smoking Status: Former Smoker Alcohol Use: None Drug Use: None General Adult EDM: Chief Complaint: Palpitations HPI: HPI: Patient is a 65 year old female who was brought here by EMS from [facility] rehab due to heart palpitation. Patient was walking at the time when she sudden ly feel her heart was racing fast. Nursing staff checked her heart rate and it was in 180 bpm, they did an EKG, showed heart rate 175 beats per minute, wide QRS tachycardia, left bundle branch block, no ST segment elevation. Patient denies any chest pain, no abdominal pain, no cough, no fever. Patient denies any trouble breathing. Patient had a defibrillator, patient said the defibrillator did not come on. Review of Systems: Review of Systems: Constitutional: Denies fever or chills. [] Eyes: Denies change in visual acuity. [] HENT: Denies nasal congestion or sore throat. [] Respiratory: Denies cough or shortness of breath. [] Cardiovascular: Denies chest pain or edema. [] GI: Denies abdominal pain, nausea, vomiting, bloody stools or diarrhea. [] : Denies dysuria. [] Musculoskeletal: Denies back pain or joint pain. [] Integument: Denies rash. [] Neurologic: Denies headache, focal weakness or sensory changes. [] Endocrine: Denies polyuria or polydipsia. [] Lymphatic: Denies swollen glands. [] Psychiatric: Denies depression or anxiety. [] Heart Score: Risk Factors: Risk Factors: DM, Current or recent (<one month) smoker, HTN, HLP, family history of CAD, obesity. Risk Scores: Score 0 - 3: 2.5% MACE over next 6 weeks - Discharge Home Score 4 - 6: 20.3% MACE over next 6 weeks - Admit for Clinical Observation Score 7 - 10: 72.7% MACE over next 6 weeks - Early Invasive Strategies Allergies: Allergies: Allergies Coded Allergies Type Severity Reaction Last Updated Verified ibuprofen Allergy Severe Swelling 08/09/18 Yes naproxen Allergy Severe Shortness of Air 10/25/18 Yes piperacillin Allergy Severe Swelling 11/17/19 Yes tazobactam Allergy Severe Swelling 08/09/18 Yes Physical Exam: PE: Constitutional: Well developed, well nourished, no acute distress, non-toxic appearance. [] HENT: Normocephalic, atraumatic, bilateral external ears normal, oropharynx moist, no oral exudates, nose normal. [] Eyes: PERRLA, EOMI, conjunctiva normal, no discharge. [] Neck: Normal range of motion, no tenderness, supple, no stridor. [] Cardiovascular:sinus tachycarida, regular rhythm, no murmur [] Lungs & Thorax: Bilateral breath sounds clear to auscultation [] Abdomen: Bowel sounds normal, soft, no tenderness, no masses, no pulsatile ma sses. [] Skin: Warm, dry, no erythema, no rash. [] Back: No tenderness, no CVA tenderness. [] Extremities: No tenderness, no cyanosis, no clubbing, ROM intact, no edema. [] Neurologic: Alert and oriented X 3, normal motor function, normal sensory function, no focal deficits noted. [] Psychologic: Affect normal, judgement normal, mood normal. [] Current Patient Data: Labs: Laboratory Tests Test 11/04/20 11:21 White Blood Count 15.1 x10^3/uL (4.0-11.0) H Red Blood Count 3.67 x10^6/uL (3.50-5.40) Hemoglobin 11.6 g/dL (12.0-15.5) L Hematocrit 35.3 % (36.0-47.0) L Mean Corpuscular Volume 96 fL (79-100) Mean Corpuscular Hemoglobin 32 pg (25-35) Mean Corpuscular Hemoglobin Concent 33 g/dL (31-37) Red Cell Distribution Width 18.3 % (11.5-14.5) H Platelet Count 134 x10^3/uL (140-400) L Neutrophils (%) (Auto) 82 % (31-73) H Lymphocytes (%) (Auto) 14 % (24-48) L Monocytes (%) (Auto) 3 % (0-9) Eosinophils (%) (Auto) 1 % (0-3) Basophils (%) (Auto) 1 % (0-3) Neutrophils # (Auto) 12.3 x10^3/uL (1.8-7.7) H Lymphocytes # (Auto) 2.2 x10^3/uL (1.0-4.8) Monocytes # (Auto) 0.4 x10^3/uL (0.0-1.1) Eosinophils # (Auto) 0.1 x10^3/uL (0.0-0.7) Basophils # (Auto) 0.1 x10^3/uL (0.0-0.2) Sodium Level 143 mmol/L (136-145) Potassium Level 3.8 mmol/L (3.5-5.1) Chloride Level 102 mmol/L (98-107) Carbon Dioxide Level 36 mmol/L (21-32) H Anion Gap 5 (6-14) L Blood Urea Nitrogen 18 mg/dL (7-20) Creatinine 1.1 mg/dL (0.6-1.0) H Estimated GFR (Cockcroft-Gault) 49.7 BUN/Creatinine Ratio 16 (6-20) Glucose Level 101 mg/dL (70-99) H Calcium Level 9.5 mg/dL (8.5-10.1) Magnesium Level 2.0 mg/dL (1.8-2.4) Total Bilirubin 0.4 mg/dL (0.2-1.0) Aspartate Amino Transferase (AST) 32 U/L (15-37) Alanine Aminotransferase (ALT) 81 U/L (14-59) H Alkaline Phosphatase 51 U/L (46-116) Troponin I Quantitative 0.038 ng/mL (0.000-0.055) MV-Mvc-L-Type Natriuretic Peptide 920 pg/mL (0-124) H Total Protein 5.7 g/dL (6.4-8.2) L Albumin 2.7 g/dL (3.4-5.0) L Albumin/Globulin Ratio 0.9 (1.0-1.7) L Laboratory Tests 11/04/20 11:21 Laboratory Tests 11/04/20 11:21 Vital Signs: Vital Signs Date Time Temp Pulse Resp B/P (MAP) Pulse Ox O2 Delivery O2 Flow Rate FiO2 11/04/20 11:12 97.6 116 20 93/50 (64) 96 Nasal Cannula 3.0 97.6 EKG: EKG: EKG was done at 1123, heart rate 115 beats per minutes, sinus tachycardia, no ST segment elevation. [] Radiology/Procedures: Radiology/Procedures: [][facility] [address] [place] [address] IMAGING REPORT Signed PATIENT: JAYCOB CRAWFORD ACCOUNT: [id number] : 1955 LOCATION: ER AGE: 65 SEX: F EXAM STATUS: REG ER ORD. PHYSICIAN: PHILIPPE MOLINA DO REASON: chest pain PROCEDURE: PORTABLE CHEST 1V XR CHEST 1V 11/04/2020 11:19 AM INDICATION: Chest pain COMPARISON: 10/27/2020 TECHNIQUE: Portable frontal view of the chest is provided. FINDINGS: The cardiomediastinal silhouette is similar in appearance. Left chest wall cardiac device is in similar position. Lungs are clear. There are no significant pleural effusions. There is no pulmonary vascular congestion. No pneumothorax. Degenerative changes of the glenohumeral joints are noted bilaterally, left greater than right. IMPRESSION: There is no acute cardiopulmonary process. Electronically signed by: Evette Springer MD (11/04/2020 12:00 PM) [id number] DICTATED and SIGNED BY: EVETTE SPRINGER MD DATE: 11/04/20 [id number] 0 Course & Med Decision Making: Course & Med Decision Making Pertinent Labs and Imaging studies reviewed. (See chart for details) Discussed with the occupational therapist's assistant on-call Dr. Hudson, recommended to admit her for observation. Dragon Disclaimer: Dragon Disclaimer: This electronic medical record was generated, in whole or in part, using a voice recognition dictation system. Departure Departure Impression: Primary Impression: Wide QRS ventricular tachycardia Additional Impression: Palpitation Disposition: ADMITTED INPT THIS HOSP Admitting Physician: ROYCE (Dr. Mccloud) Condition: STABLE Referrals: ANGIE WILLINGHAM MD (PCP) PHILIPPE MOLINA DO Nov 04, 2020 12:17
--- NOTE | 2020-11-04 12:34 | EKG ---
[facility] [address] [place] [address] Test Date: 2020-11-04 Test Time: 11:16:37 Pat Name: JAYCOB CRAWFORD Department: Room: Gender: F Magistrate Assistant: : 1955 Requested By: PHILIPPE MOLINA Order Number: [id number] Reading MD: Octaviano Driscoll Measurements Intervals Aurora Rate: 115 P: 61 ME: 130 QRS: 111 QRSD: 94 T: 62 QT: 320 QTc: 444 Interpretive Statements ATRIAL SENSED VENTRICULAR PACED RHYTHM ABNORMAL RIGHT AXIS DEVIATION LOW LIMB LEAD VOLTAGE ABNORMAL ECG Electronically Signed On 11-11-2020 10:12:33 [employer] by Octaviano Driscoll
--- NOTE | 2020-11-04 12:39 | PDOC2 ---
KJ LORA CAPTAIN WAITER 11/04/20 1239: CARDIAC CONSULT DATE OF CONSULT Date of Consult DATE: 11/04/20 TIME: 12:39 REASON FOR CONSULT Reason for Consult: Palpitation REFERRING PHYSICIAN Referring Physician: Boyd SOURCE Source: Chart review, Patient HISTORY OF PRESENT ILLNESS HISTORY OF PRESENT ILLNESS This is a pleasant 65 yo female admitted for complains of palpitations. She was recently discharged from here to [facility] rehab. She was doing therapy and while walking she got dizzy and noted her HR in the 180s. She was tolerating her activity before that. No SOA and her wheezing has been much better. Denies any chest pain, nausea or vomiting. Reports that the palpitations happened a few times but this time it was longer. It was then deemed that she has not been getting any metoprolol. She was treated for COPD and CHF from her prior admission and her BB was hed at some point due to wheeze but then resumed upon discharged. Again she has been doing well with her rehab until today. PAST MEDICAL HISTORY Past Medical History Cardiovascular: diastolic CHF, HTN, Hyperlipidemia, NICM, chronic LBBB Pulmonary: COPD, pulmonary HTN CENTRAL NERVOUS SYSTEM: RLS GI: GERD Heme/Onc: No pertinent hx Hepatobiliary: No pertinent hx Psych: No pertinent hx Musculoskeletal: Osteoarthritis, osteoporosis Rheumatologic: Gout Infectious disease: No pertinent hx Renal/: No pertinent hx Endocrine: Diabetes, Hypothyroidism PAST SURGICAL HISTORY Past Surgical History Pacemaker (Bi-V ICD/BENCH PATTERNMAKER METAL-D ), left shoulder arthroscopy, hysterectomy, cholecystectomy FAMILY HISTORY Family History: Heart Disease SOCIAL HISTORY Social History Smoke: Quit (10/02/19) ALCOHOL: none Drugs: None Lives: with Family ALLERGIES ALLERGIES: Coded Allergies: ibuprofen (Verified Allergy, Severe, Swelling, 08/09/18) naproxen (Verified Allergy, Severe, Shortness of Air, 10/25/18) tolerates asa piperacillin (Verified Allergy, Severe, Swelling, 11/17/19) Tolerated cefepime tazobactam (Verified Allergy, Severe, Swelling, 08/09/18) ROS Review of System 14 point ROS evaluated with pertinent positives noted per HPI PHYSICAL EXAM General: Alert, Oriented X3, Cooperative, No acute distress HEENT: Atraumatic, Mucous membr. moist/pink Lungs: Other Heart: Regular rate (SR), Other (distant heart sounds) Abdomen: Soft, No tenderness Extremities: No cyanosis, No edema Skin: No breakdown, No significant lesion Neuro: Normal speech, Sensation intact Psych/Mental Status: Mental status NL, Mood NL MUSCULOSKELETAL: Osteoarthritic changes both hands VITALS/I&O VITALS/I&O: Vital Signs Date Time Temp Pulse Resp B/P (MAP) Pulse Ox O2 Delivery O2 Flow Rate FiO2 11/04/20 11:12 97.6 116 20 93/50 (64) 96 Nasal Cannula 3.0 97.6 LABS Lab: Laboratory Tests Test 11/04/20 11:21 White Blood Count 15.1 x10^3/uL (4.0-11.0) H Red Blood Count 3.67 x10^6/uL (3.50-5.40) Hemoglobin 11.6 g/dL (12.0-15.5) L Hematocrit 35.3 % (36.0-47.0) L Mean Corpuscular Volume 96 fL (79-100) Mean Corpuscular Hemoglobin 32 pg (25-35) Mean Corpuscular Hemoglobin Concent 33 g/dL (31-37) Red Cell Distribution Width 18.3 % (11.5-14.5) H Platelet Count 134 x10^3/uL (140-400) L Neutrophils (%) (Auto) 82 % (31-73) H Lymphocytes (%) (Auto) 14 % (24-48) L Monocytes (%) (Auto) 3 % (0-9) Eosinophils (%) (Auto) 1 % (0-3) Basophils (%) (Auto) 1 % (0-3) Neutrophils # (Auto) 12.3 x10^3/uL (1.8-7.7) H Lymphocytes # (Auto) 2.2 x10^3/uL (1.0-4.8) Monocytes # (Auto) 0.4 x10^3/uL (0.0-1.1) Eosinophils # (Auto) 0.1 x10^3/uL (0.0-0.7) Basophils # (Auto) 0.1 x10^3/uL (0.0-0.2) Sodium Level 143 mmol/L (136-145) Potassium Level 3.8 mmol/L (3.5-5.1) Chloride Level 102 mmol/L (98-107) Carbon Dioxide Level 36 mmol/L (21-32) H Anion Gap 5 (6-14) L Blood Urea Nitrogen 18 mg/dL (7-20) Creatinine 1.1 mg/dL (0.6-1.0) H Estimated GFR (Cockcroft-Gault) 49.7 BUN/Creatinine Ratio 16 (6-20) Glucose Level 101 mg/dL (70-99) H Calcium Level 9.5 mg/dL (8.5-10.1) Magnesium Level 2.0 mg/dL (1.8-2.4) Total Bilirubin 0.4 mg/dL (0.2-1.0) Aspartate Amino Transferase (AST) 32 U/L (15-37) Alanine Aminotransferase (ALT) 81 U/L (14-59) H Alkaline Phosphatase 51 U/L (46-116) Troponin I Quantitative 0.038 ng/mL (0.000-0.055) OR-Pld-O-Type Natriuretic Peptide 920 pg/mL (0-124) H Total Protein 5.7 g/dL (6.4-8.2) L Albumin 2.7 g/dL (3.4-5.0) L Albumin/Globulin Ratio 0.9 (1.0-1.7) L Laboratory Tests 11/04/20 11:21 Laboratory Tests 11/04/20 11:21 ECHOCARDIOGRAM ECHOCARDIOGRAM <Conclusion> The left ventricle is normal size. The left ventricular systolic function is low normal. The Ejection Fraction is 50%. Wall motion consistent with pacemaker activation There is a device lead in the right ventricle. Doppler and Color Flow revealed trace aortic regurgitation. There is no significant aortic valvular stenosis. Doppler and Color-flow revealed trace mitral regurgitation. Doppler and Color Flow revealed trace tricuspid regurgitation with an estimated PAP of 20 mmHg. DATE: 08/06/20 1040 HEART CATH HEART CATH FINDINGS A. RIGHT HEART CATHETERIZATION 1. Intracardiac pressures: Mean right atrial pressure 9 mmHg, right pressure 33/5 mmHg, pulmonary artery pressure 35/15 mmHg with mean PA pressure 25 mmHg, mean pulmonary capillary wedge pressure 12 mmHg. Mild pulmonary hypertension. 2. Oxygen saturations: Right atrium 70.3%, pulmonary artery 71.9%, femoral arterial sheath 98.2%. No evidence of intracardiac shunt. 3. Cardiac output by Mago method 3.96 L/min. B. LEFT HEART CATHETERIZATION: 1. Hemodynamics: Left ventricular end-diastolic pressure 27 mmHg consistent with mild acute on chronic diastolic heart failure. No pullback gradient across the aortic valve. 2. Left ventriculography: Normal left ventricular systolic function with ejection fraction estimated at 55%. No significant mitral regurgitation seen. 3. Coronary angiography: a. The Left main coronary artery arose from the left sinus of Valsalva, gave rise to the left anti-descending and left circumflex arteries and did not show any significant stenosis. b. The left anti-descending artery did not show any significant stenosis. c. The left circumflex artery did not show any significant stenosis. d. The right coronary artery was a dominant vessel arising from the right sinus of Valsalva that did not show any significant stenosis. Conclusion 1. No significant coronary disease. 2. Normal left ventricular systolic function with ejection fraction estimated at 55%. 3. Mild acute on chronic diastolic heart failure as evidenced by elevated LVEDP. 4. Mild pulmonary hypertension. 5. No evidence of intracardiac shunt. Recommendations Medical Therapy DATE: 03/17/20 0934 ASSESSMENT/PLAN ASSESSMENT/PLAN 1. Palpitations: due to AFIB/flutter 2. PAFIB/flutter: new 3. BENCH PATTERNMAKER METAL-D in situ ([employer]-crowd) interrogation revealed 1.9% AFIB burden since 10/17/2020 She had atrial flutter rates up to 180 with prior 13 brief episodes 4. Chronic diastolic CHF: Appears compensated and no further wheezing. Interrogation revealed down trend of throacic impedance suggesting increase fluid. However to peripheral edema and unremarkable CXR. 5. Hx of HTN: SBP marginal at 90s 6. CKD3: Cr stable 7. COPD: possibly on the severe spectrum 8. Hx of NICM with chronic LBBB Recommendations 1. Pt apparently has not been receiving BB at the rehab center. Will restart toprol and monitor HR and BP trend. IVF 0.5L x1. Lopressor IV PRN and could also utilize Digoxin if needed. 2. Continue ASA for now for stroke prevention. She has been noted with mild thrombocytopenia in the past. Monitor rhythm and if burden is high in the next 24 hours then will consider for NOAC. 3. Would not be a candidate for either sotalol nor amiodarone given her pulmonary issue. 4. Will obtain limited TTE and note EF, PAP 5. Restart entresto and torsemide tomorrow. Monitor BP trend. 6. Patient has slowly progressively growing lung nodules, scheduled for outpatient pulmonary appointment in December with a PET scan prior to appointment SAMM CRUZ MD 11/04/201928: CARDIAC CONSULT ASSESSMENT/PLAN ASSESSMENT/PLAN Patient seen and examined. Agree with CREATIVE WRITING ENGLISH PROFESSOR's assessment and plan. PAF newly diagnosed - agree with resuming BB and consider NOAC if AF burden high Chr diastolic HF well compensated Recent cardiac cath did not show any significant CAD We will obtain 2D echo to evaluate LVEF Recent BENCH PATTERNMAKER METAL-D interrogation normal Pulm following for COPD/lung nodules Thank you for your consultation KJ LORA APRN Nov 04, 2020 12:39 SAMM CRUZ MD Nov 04, 2020 19:29
[2020-11-04] MEDS ORDERED: IV NORMAL SALINE 1000ML BAG 1,000 ML IV ONE (12:45)
[2020-11-04] MEDS ORDERED: IV NORMAL SALINE 500ML BAG 500 ML IV ONE (13:15)
--- NOTE | 2020-11-04 13:50 | PDOC1 ---
History and Physical Date of Admission Date of Admission DATE: 11/04/20 TIME: 13:52 Identification/Chief Complaint Chief Complaint Tachycardia Source Source: Patient History of Present Illness History of Present Illness Ms Mathur is a 65yo F w/ PMHx PMHx chronic respiratory failure, unknown FEV1, COPD, cardiomyopathy, tobacco dependence, in remission, quit 09/2019, h ypertension, chronic heart failure, type 2 diabetes, and hypothyroidism presents here by EMS from [facility] rehab due to heart palpitation. Patient was walking at the time when she suddenly feel her heart was racing fast. Nursing staff checked her heart rate and it was in 180 bpm, they did an EKG, showed heart rate 175 beats per minute, wide QRS tachycardia, left bundle branch block, no ST segment elevation. Patient denies any chest pain, no abdominal pain, no cough, no fever. Patient denies any trouble breathing. Patient had a defibrillator, patient said the defibrillator did not fire. Of note she has not been receiving her metoprolol at Chest radiograph with no acute abnormalities. WBC 15.1, Hb 11.6, Platelets 134, Na 143, K 3.8, BUN 18, Cr 1.1, Glucose 101, BNP 920, Albumin 2.7, Trop 0.038 EKG sinus tachycardia 115bpm, no STEMI Given saline bolus for SBP < 90. Admitted for further observation and treatment. Past Medical History Cardiovascular: CHF, HTN, Hyperlipidemia, Other Pulmonary: COPD CENTRAL NERVOUS SYSTEM: Other GI: No pertinent hx Heme/Onc: No pertinent hx Hepatobiliary: No pertinent hx Psych: No pertinent hx Musculoskeletal: Osteoarthritis Rheumatologic: No pertinent hx Infectious disease: No pertinent hx Renal/: Chronic renal insuff Endocrine: Diabetes, Hypothyroidism Past Surgical History Past Surgical History: Pacemaker Family History Family History: Heart Disease Social History Smoke: Quit ALCOHOL: none Drugs: None Current Medications Current Medications Current Medications Sodium Chloride 1,000 ml @ 125 mls/hr 1X ONCE IV ; Start 11/04/20 at 12:45; Stop 11/04/20 at 20:44 Sodium Chloride 500 ml @ 125 mls/hr 1X ONCE IV Last administered on 11/04/20at 13:09; Start 11/04/20 at 13:15; Stop 11/04/20 at 17:14 Active Scripts Active Doxycycline Hyclate 100 Mg Tablet 1 Tab PO BID Duoneb 0.5-3(2.5) Mg/3 Ml (Albuterol/Ipratropium) 3 Ml Ampul.neb 3 Ml NEB Q4HRS 14 Days Reported Gabapentin (Gabapentin) 100 Mg Capsule 100 Mg PO TID Alendronate Sodium 70 Mg Tablet 1 Tab PO WEEKLY Fluticasone Propionate Nasal Atkinson (Fluticasone Propionate) 16 Gm [place]kinson.susp 2 Atkinson NS DAILY Allopurinol 300 Mg Tablet 1 Tab PO DAILY Prednisone 20 Mg Tablet 1 Tab PO BID Trelegy Ellipta 100-62.5-25 (Fluticasone/Umeclidin/Vilanter) 1 Each Blst.w.dev 1 Each IH DAILY Prilosec Otc (Omeprazole Magnesium) 20 Mg Tablet.dr 40 Mg PO DAILY Entresto 49 mg-51 mg Tablet (Sacubitril/Valsartan) 1 Each Tablet 49-51 Mg PO BID K-Tab ER (Potassium Chloride) 20 Meq Tablet.er 20 Meq PO DAILY Montelukast Sodium Tablet (Montelukast Sodium) 10 Mg Tablet 10 Mg PO HS Levocetirizine Dihydrochloride 5 Mg Tablet 5 Mg PO DAILY Amitriptyline Hcl 25 Mg Tablet 25 Mg PO QHS Tylenol (Acetaminophen) 325 Mg Tablet 650 Mg PO PRN Q4HRS PRN Aspir 81 (Aspirin) 81 Mg Tablet.dr 1 Tab PO DAILY Metoprolol Succinate ( Xl ) (Metoprolol Succinate) 25 Mg Tab.er.24h 25 Mg PO DAILY Vitamin D3 (Cholecalciferol (Vitamin D3)) 1,000 Unit Tablet 1 Tab PO DAILY Torsemide 20 Mg Tablet 1 Tab PO DAILY Daliresp (Roflumilast) 500 Mcg Tablet 1 Tab PO DAILY Atorvastatin Calcium 20 Mg Tablet 20 Mg PO HS Requip (Ropinirole Hcl) 1 Mg Tablet 3 Tab PO QHS Proair Hfa Inhaler (Albuterol Sulfate) 8.5 Gm Hfa.aer.ad 1 Puff INH PRN Q6HRS PRN Levothyroxine Sodium 50 Mcg Tablet 1 Tab PO DAILY Allergies Allergies: Coded Allergies: ibuprofen (Verified Allergy, Severe, Swelling, 08/09/18) naproxen (Verified Allergy, Severe, Shortness of Air, 10/25/18) tolerates asa piperacillin (Verified Allergy, Severe, Swelling, 11/17/19) Tolerated cefepime tazobactam (Verified Allergy, Severe, Swelling, 08/09/18) ROS General: YES: Fatigue, Malaise; No: Chills, Night Sweats, Appetite, Other PSYCHOLOGICAL ROS: No: Anxiety, Behavioral Disorder, Concentration difficultie, Decreased libido, Depression, Disorientation, Hallucinations, Hostility, Irritablity, Memory difficulties, Mood Swings, Obsessive thoughts, Physical abuse, Sexual abuse, Sleep disturbances, Suicidal ideation, Other Eyes: No Blurry vision, No Decreased vision, No Double vision, No Dry eyes, No Excessive tearing, No Eye Pain, No Itchy Eyes, No Loss of vision, No Photophobia, No Scotomata, No Uses contacts, No Uses glasses, No Other HEENT: No: Heacaches, Visual Changes, Hearing change, Nasal congestion, Nasal discharge, Oral lesions, Sinus pain, Sore Throat, Epistaxis, Sneezing, Snoring, Tinnitus, Vertigo, Vocal changes, Other ALLERGY AND IMMUNOLOGY: No: Hives, Insect Bite Sensitivity, Itchy/Watery Eyes, Nasal Congestion, Post Nasal Drip, Seasonal Allergies, Other Hematological and Lymphatic: No: Bleeding Problems, Blood Clots, Blood Transfusions, Brusing, Night Sweats, Pallor, Swollen Lymph Nodes, Other ENDOCRINE: No: Breast Changes, Galactorrhea, Hair Pattern Changes, Hot Flashes, Malaise/lethargy, Mood Swings, Palpitations, Polydipsia/polyuria, Skin Changes, Temperature Intolerance, Unexpected Weight Changes, Other Breast: No New/Changing Breast Lumps, No Nipple changes, No Nipple discharge, No Other Respiratory: No: Cough, Hemoptysis, Orthopnea, Pleuritic Pain, Shortness of breath, SOB with excertion, Sputum Changes, Stridor, Tachypnea, Wheezing, Other Gastrointestinal: No Nausea, No Vomiting, No Abdominal Pain, No Diarrhea, No Constipation, No Melena, No Hematochezia, No Other Genitourinary: No Dysuria, No Frequency, No Incontinence, No Hematuria, No Retention, No Discharge, No Urgency, No Pain, No Flank Pain, No Other, No , No , No , No , No , No , No Musculoskeletal: No Gait Disturbance, No Joint Pain, No Joint Stiffness, No Joint Swelling, No Muscle Pain, No Muscular Weakness, No Pain In:, No Swelling In:, No Other Neurological: No Behavorial Changes, No Bowel/Bladder ControlChng, No Confusion, No Dizziness, No Gait Disturbance, No Headaches, No Impaired Coord/balance, No Memory Loss, No Numbness/Tingling, No Seizures, No Speech Problems, No Tremors, No Visual Changes, No Weakness, No Other Skin: No Dry Skin, No Eczema, No Hair Changes, No Lumps, No Mole Changes, No Mottling, No Nail Changes, No Pruritus, No Rash, No Skin Lesion Changes, No Other, No Acne Physical Exam General: Alert, Oriented X3, Cooperative, No acute distress HEENT: Atraumatic, PERRLA, EOMI, Mucous membr. moist/pink Lungs: Other (Scattered wheezes) Heart: S1S2, RRR, no thrills, no rubs, no gallops, no murmurs Abdomen: Normal bowel sounds, Soft, No tenderness, No hepatosplenomegaly, No masses Rectal Exam: not examined Extremities: No clubbing, No cyanosis, No edema, Normal pulses, No tenderness/swelling Skin: No rashes, No breakdown, No significant lesion Neuro: Normal gait, Normal speech, Strength at 5/5 X4 ext, Normal tone, Sensation intact, Cranial nerves 3-12 NL, Reflexes 2+ Psych/Mental Status: Mental status NL, Mood NL Vitals Vitals Vital Signs Date Time Temp Pulse Resp B/P (MAP) Pulse Ox O2 Delivery O2 Flow Rate FiO2 11/04/20 11:12 97.6 116 20 93/50 (64) 96 Nasal Cannula 3.0 97.6 Labs Labs Laboratory Tests Test 11/04/20 11:21 White Blood Count 15.1 x10^3/uL (4.0-11.0) Red Blood Count 3.67 x10^6/uL (3.50-5.40) Hemoglobin 11.6 g/dL (12.0-15.5) Hematocrit 35.3 % (36.0-47.0) Mean Corpuscular Volume 96 fL (79-100) Mean Corpuscular Hemoglobin 32 pg (25-35) Mean Corpuscular Hemoglobin Concent 33 g/dL (31-37) Red Cell Distribution Width 18.3 % (11.5-14.5) Platelet Count 134 x10^3/uL (140-400) Neutrophils (%) (Auto) 82 % (31-73) Lymphocytes (%) (Auto) 14 % (24-48) Monocytes (%) (Auto) 3 % (0-9) Eosinophils (%) (Auto) 1 % (0-3) Basophils (%) (Auto) 1 % (0-3) Neutrophils # (Auto) 12.3 x10^3/uL (1.8-7.7) Lymphocytes # (Auto) 2.2 x10^3/uL (1.0-4.8) Monocytes # (Auto) 0.4 x10^3/uL (0.0-1.1) Eosinophils # (Auto) 0.1 x10^3/uL (0.0-0.7) Basophils # (Auto) 0.1 x10^3/uL (0.0-0.2) Sodium Level 143 mmol/L (136-145) Potassium Level 3.8 mmol/L (3.5-5.1) Chloride Level 102 mmol/L (98-107) Carbon Dioxide Level 36 mmol/L (21-32) Anion Gap 5 (6-14) Blood Urea Nitrogen 18 mg/dL (7-20) Creatinine 1.1 mg/dL (0.6-1.0) Estimated GFR (Cockcroft-Gault) 49.7 BUN/Creatinine Ratio 16 (6-20) Glucose Level 101 mg/dL (70-99) Calcium Level 9.5 mg/dL (8.5-10.1) Magnesium Level 2.0 mg/dL (1.8-2.4) Total Bilirubin 0.4 mg/dL (0.2-1.0) Aspartate Amino Transf (AST/SGOT) 32 U/L (15-37) Alanine Aminotransferase (ALT/SGPT) 81 U/L (14-59) Alkaline Phosphatase 51 U/L (46-116) Troponin I Quantitative 0.038 ng/mL (0.000-0.055) CQ-Wwv-J-Type Natriuretic Peptide 920 pg/mL (0-124) Total Protein 5.7 g/dL (6.4-8.2) Albumin 2.7 g/dL (3.4-5.0) Albumin/Globulin Ratio 0.9 (1.0-1.7) Laboratory Tests Test 11/04/20 11:21 White Blood Count 15.1 x10^3/uL (4.0-11.0) Red Blood Count 3.67 x10^6/uL (3.50-5.40) Hemoglobin 11.6 g/dL (12.0-15.5) Hematocrit 35.3 % (36.0-47.0) Mean Corpuscular Volume 96 fL (79-100) Mean Corpuscular Hemoglobin 32 pg (25-35) Mean Corpuscular Hemoglobin Concent 33 g/dL (31-37) Red Cell Distribution Width 18.3 % (11.5-14.5) Platelet Count 134 x10^3/uL (140-400) Neutrophils (%) (Auto) 82 % (31-73) Lymphocytes (%) (Auto) 14 % (24-48) Monocytes (%) (Auto) 3 % (0-9) Eosinophils (%) (Auto) 1 % (0-3) Basophils (%) (Auto) 1 % (0-3) Neutrophils # (Auto) 12.3 x10^3/uL (1.8-7.7) Lymphocytes # (Auto) 2.2 x10^3/uL (1.0-4.8) Monocytes # (Auto) 0.4 x10^3/uL (0.0-1.1) Eosinophils # (Auto) 0.1 x10^3/uL (0.0-0.7) Basophils # (Auto) 0.1 x10^3/uL (0.0-0.2) Sodium Level 143 mmol/L (136-145) Potassium Level 3.8 mmol/L (3.5-5.1) Chloride Level 102 mmol/L (98-107) Carbon Dioxide Level 36 mmol/L (21-32) Anion Gap 5 (6-14) Blood Urea Nitrogen 18 mg/dL (7-20) Creatinine 1.1 mg/dL (0.6-1.0) Estimated GFR (Cockcroft-Gault) 49.7 BUN/Creatinine Ratio 16 (6-20) Glucose Level 101 mg/dL (70-99) Calcium Level 9.5 mg/dL (8.5-10.1) Magnesium Level 2.0 mg/dL (1.8-2.4) Total Bilirubin 0.4 mg/dL (0.2-1.0) Aspartate Amino Transf (AST/SGOT) 32 U/L (15-37) Alanine Aminotransferase (ALT/SGPT) 81 U/L (14-59) Alkaline Phosphatase 51 U/L (46-116) Troponin I Quantitative 0.038 ng/mL (0.000-0.055) WS-Ttb-O-Type Natriuretic Peptide 920 pg/mL (0-124) Total Protein 5.7 g/dL (6.4-8.2) Albumin 2.7 g/dL (3.4-5.0) Albumin/Globulin Ratio 0.9 (1.0-1.7) Images Images Chest radiograph: The cardiomediastinal silhouette is similar in appearance. Left chest wall cardiac device is in similar position. Lungs are clear. There are no significant pleural effusions. There is no pulmonary vascular congestion. No pneumothorax. Degenerative changes of the glenohumeral joints are noted bilaterally, left greater than right. IMPRESSION: There is no acute cardiopulmonary process. VTE Prophylaxis Ordered VTE Prophylaxis Devices: No VTE Pharmacological Prophylaxi: Yes Assessment/Plan Assessment/Plan A/P: Tachycardia - symptomatic, will check d dimer. Given COPD is high risk for PE, Will consult cardiology. Trend troponins Elevated troponin - likely demand ischemia, will trend. Cardiology consulted Leukocytosis - likely steroid related, will monitor Thrombocytopenia - uncertain etiology, will trend Severe COPD - will continue nebs Acute on chronic hypoxic respiratory failure Atypical chest pain possible NSTEMI ruled out Negative for COVID-19 infection Acute on Chronic diastolic CHF Hypertension, controlled Dyslipidemia History of nonischemic cardiomyopathy FEN - ADA diet PPX - Lovenox Full code Dispo - CVC admission Surrogate decision maker is Herman Mathur Justifications for Admission Other Justification PHONG YEBOAH MD Nov 04, 2020 13:50
[2020-11-04] MEDS ORDERED: ONDANSETRON PF 4 MG/2 ML VIAL. IV PRN (14:00)
[2020-11-04] MEDS ORDERED: ALBUTEROL SULFATE 2.5 MG/3 ML NEBU. INH PRN (14:00)
[2020-11-04] MEDS ORDERED: ACETAMINOPHEN 325 MG TABLET. PO PRN (14:00)
[2020-11-04 14:48] VITALS: BP 105/60
[2020-11-04] MEDS: GABAPENTIN 100 MG CAPSULE. PO SCH ×2 (15:08→21:27)
[2020-11-04] MEDS: ENOXAPARIN 40 MG/0.4 ML SYRINGE. SQ SCH (15:08)
[2020-11-04] MEDS: IPRATRPIUM/ALBUTEROL 0.5/2.5MG 3 ML NEBU. NEB SCH ×5 (15:53→22:00)
[2020-11-04] MEDS ORDERED: MORPHINE SULFATE 2 MG/ML VIAL. IV PRN (16:00)
[2020-11-04] MEDS ORDERED: METOPROLOL IV PUSH 5 MG/5 ML VIAL. IVP PRN (16:15)
[2020-11-04] MEDS: METOPROLOL SUCC 24HR ER 25 MG TAB.ER.24H. PO SCH (17:19)
[2020-11-04 19:00] VITALS: BP 130/58
[2020-11-04] MEDS: BUDESONIDE 0.5 MG/2 ML NEBU. NEB SCH (19:54)
[2020-11-04] MEDS ORDERED: SACUBITRIL/VALSARTAN 49/51MG TABLET. PO SCH (21:00)
[2020-11-04] MEDS ORDERED: ATORVASTATIN CALCIUM 20 MG TABLET PO SCH (21:00)
[2020-11-04] MEDS ORDERED: rOPINIRole 1 MG TABLET. PO SCH (21:00)
[2020-11-04] MEDS ORDERED: MONTELUKAST SODIUM 10 MG TABLET. PO SCH (21:00)
[2020-11-04] MEDS ORDERED: AMITRIPTYLINE HCL 25 MG TABLET. PO SCH (22:00)
[2020-11-04] MEDS: SACUBITRIL/VALSARTAN 49/51MG TABLET. PO SCH (22:03)
[2020-11-04 22:52] VITALS: BP 102/45
[2020-11-05 02:25] VITALS: BP 105/56
[2020-11-05 06:32] LABS: BASO % 0 % (0-3); EOS % 1 % (0-3); HEMOGLOBIN 9.6 g/dL (12.0-15.5); LYMPH # 1.4 x10^3/uL (1.0-4.8); LYMPH % 16 % (24-48); MEAN CORPUSCULAR HEMOGLOBIN 32 pg (25-35); MEAN CORPUSCULAR HGB CONC 33 g/dL (31-37); MEAN CORPUSCULAR VOLUME 96 fL (79-100); MONO # 0.3 x10^3/uL (0.0-1.1); MONO % 3 % (0-9); NEUT % 80 % (31-73); PLATELET COUNT 114 x10^3/uL (140-400); RED BLOOD COUNT 3.02 x10^6/uL (3.50-5.40); RED CELL DISTRIBUTION WIDTH 18.8 % (11.5-14.5); WHITE BLOOD COUNT 8.8 x10^3/uL (4.0-11.0)
[2020-11-05 06:43] LABS: CALCIUM 8.1 mg/dL (8.5-10.1); CREATININE 1.1 mg/dL (0.6-1.0); GFR 49.7; POTASSIUM 4.1 mmol/L (3.5-5.1)
[2020-11-05 07:00] VITALS: BP 94/50
[2020-11-05] MEDS ORDERED: LEVOTHYROXINE 50 MCG TABLET PO SCH (07:00)
[2020-11-05] MEDS ORDERED: PANTOPRAZOLE 40 MG TABLET.DR. PO SCH (07:30)
[2020-11-05] MEDS: IPRATRPIUM/ALBUTEROL 0.5/2.5MG 3 ML NEBU. NEB SCH ×6 (07:38→15:46)
[2020-11-05] MEDS: BUDESONIDE 0.5 MG/2 ML NEBU. NEB SCH (07:38)
[2020-11-05] MEDS: SACUBITRIL/VALSARTAN 49/51MG TABLET. PO SCH (08:36)
[2020-11-05] MEDS: GABAPENTIN 100 MG CAPSULE. PO SCH ×2 (08:37→12:55)
[2020-11-05] MEDS: METOPROLOL SUCC 24HR ER 25 MG TAB.ER.24H. PO SCH (08:37)
[2020-11-05 08:43] VITALS: BP 103/51
[2020-11-05] MEDS ORDERED: TORSEMIDE 20 MG TABLET. PO SCH (09:00)
[2020-11-05] MEDS ORDERED: ASPIRIN ENTERIC COATED 81 MG TABLET.DR. PO SCH (09:00)
[2020-11-05] MEDS ORDERED: CETIRIZINE HCL 10 MG TABLET. PO SCH (09:00)
[2020-11-05] MEDS ORDERED: FLUTICASONE 50MCG/NASAL SPRAY 16GM BOTTLE. NS SCH (09:00)
[2020-11-05] MEDS ORDERED: ALLOPURINOL 300 MG TABLET. PO SCH (09:00)
[2020-11-05] MEDS ORDERED: METOPROLOL SUCC 24HR ER 25 MG TAB.ER.24H. PO SCH (09:00)
[2020-11-05] MEDS ORDERED: ROFLUMILAST 500 MCG TABLET. PO SCH (09:00)
[2020-11-05] MEDS ORDERED: CHOLECALCIFEROL (VITAMIN D3) 1,000 UNIT TABLET PO SCH (09:00)
[2020-11-05] MEDS ORDERED: NON FORMULARY ITEM (Fluticasone/Umeclidin/Vilanter (Trelegy Ellipta 100-62.5-25) 1 EACH) IH SCH (09:00)
[2020-11-05] MEDS ORDERED: SACUBITRIL/VALSARTAN 49/51MG TABLET. PO SCH (10:00)
--- NOTE | 2020-11-05 10:16 | PDOC ---
[employer] PROGRESS NOTE Date of Service DOS: DATE: 11/05/20 TIME: 10:15 Chief Complaint Chief Complaint A/P: Tachycardia - symptomatic, negative d dimer. Consulted cardiology. Trend troponins was downward. Cont metoprolol Elevated troponin - likely demand ischemia, will trend. Cardiology consulted Leukocytosis - likely steroid related, will monitor Thrombocytopenia - uncertain etiology, will trend Severe COPD - will continue nebs Acute on chronic hypoxic respiratory failure Atypical chest pain possible NSTEMI ruled out Negative for COVID-19 infection Acute on Chronic diastolic CHF Hypertension, controlled Dyslipidemia History of nonischemic cardiomyopathy FEN - ADA diet PPX - Lovenox Full code Dispo - CVC admission Surrogate decision maker is Herman Mathur History of Present Illness History of Present Illness Ms Mathur is a 65yo F w/ PMHx PMHx chronic respiratory failure, unknown FEV1, COPD, cardiomyopathy, tobacco dependence, in remission, quit 09/2019, hypertension, chronic heart failure, type 2 diabetes, and hypothyroidism presents here by EMS from [facility] rehab due to heart palpitation. Patient was walking at the time when she suddenly feel her heart was racing fast. Nursing staff checked her heart rate and it was in 180 bpm, they did an EKG, showed heart rate 175 beats per minute, wide QRS tachycardia, left bundle branch block, no ST segment elevation. Patient denies any chest pain, no abdominal pain, no cough, no fever. Patient denies any trouble breathing. Patient had a defibrillator, patient said the defibrillator did not fire. Of note she has not been receiving her metoprolol at Chest radiograph with no acute abnormalities. WBC 15.1, Hb 11.6, Platelets 134, Na 143, K 3.8, BUN 18, Cr 1.1, Glucose 101, BNP 920, Albumin 2.7, Trop 0.038 EKG sinus tachycardia 115bpm, no STEMI Given saline bolus for SBP < 90. Admitted for further observation and treatment. HR controlled with restarting BB. Troponin trended downward. bedside. Feeling improved no CP or palpitations today. On baseline O2. Vitals/I&O Vitals/I&O: Vital Signs Date Time Temp Pulse Resp B/P (MAP) Pulse Ox O2 Delivery O2 Flow Rate FiO2 11/05/20 08:43 96 17 103/51 (68) Room Air 11/05/20 07:39 3.0 11/05/20 07:00 98.3 96 98.3 I & O 11/04/20 11/04/20 11/05/20 15:00 23:00 07:00 Intake Total 100 ml 500 ml Balance 100 ml 500 ml Physical Exam General: Alert, Oriented X3, Cooperative, No acute distress Heart: Regular rate (SR), Other (distant heart sounds) Abdomen: Soft, No tenderness Extremities: No cyanosis, No edema Skin: No breakdown, No significant lesion Labs Labs: Laboratory Tests Test 11/04/20 11:21 11/04/20 14:09 11/04/20 17:30 11/05/20 06:13 White Blood Count 15.1 x10^3/uL (4.0-11.0) 8.8 x10^3/uL (4.0-11.0) Red Blood Count 3.67 x10^6/uL (3.50-5.40) 3.02 x10^6/uL (3.50-5.40) Hemoglobin 11.6 g/dL (12.0-15.5) 9.6 g/dL (12.0-15.5) Hematocrit 35.3 % (36.0-47.0) 29.0 % (36.0-47.0) Mean Corpuscular Volume 96 fL (79-100) 96 fL (79-100) Mean Corpuscular Hemoglobin 32 pg (25-35) 32 pg (25-35) Mean Corpuscular Hemoglobin Concent 33 g/dL (31-37) 33 g/dL (31-37) Red Cell Distribution Width 18.3 % (11.5-14.5) 18.8 % (11.5-14.5) Platelet Count 134 x10^3/uL (140-400) 114 x10^3/uL (140-400) Neutrophils (%) (Auto) 82 % (31-73) 80 % (31-73) Lymphocytes (%) (Auto) 14 % (24-48) 16 % (24-48) Monocytes (%) (Auto) 3 % (0-9) 3 % (0-9) Eosinophils (%) (Auto) 1 % (0-3) 1 % (0-3) Basophils (%) (Auto) 1 % (0-3) 0 % (0-3) Neutrophils # (Auto) 12.3 x10^3/uL (1.8-7.7) 7.0 x10^3/uL (1.8-7.7) Lymphocytes # (Auto) 2.2 x10^3/uL (1.0-4.8) 1.4 x10^3/uL (1.0-4.8) Monocytes # (Auto) 0.4 x10^3/uL (0.0-1.1) 0.3 x10^3/uL (0.0-1.1) Eosinophils # (Auto) 0.1 x10^3/uL (0.0-0.7) 0.0 x10^3/uL (0.0-0.7) Basophils # (Auto) 0.1 x10^3/uL (0.0-0.2) 0.0 x10^3/uL (0.0-0.2) D-Dimer (Katie) 0.47 ug/mlFEU (0.00-0.50) Sodium Level 143 mmol/L (136-145) 143 mmol/L (136-145) Potassium Level 3.8 mmol/L (3.5-5.1) 4.1 mmol/L (3.5-5.1) Chloride Level 102 mmol/L (98-107) 105 mmol/L (98-107) Carbon Dioxide Level 36 mmol/L (21-32) 35 mmol/L (21-32) Anion Gap 5 (6-14) 3 (6-14) Blood Urea Nitrogen 18 mg/dL (7-20) 20 mg/dL (7-20) Creatinine 1.1 mg/dL (0.6-1.0) 1.1 mg/dL (0.6-1.0) Estimated GFR (Cockcroft-Gault) 49.7 49.7 BUN/Creatinine Ratio 16 (6-20) Glucose Level 101 mg/dL (70-99) 110 mg/dL (70-99) Calcium Level 9.5 mg/dL (8.5-10.1) 8.1 mg/dL (8.5-10.1) Magnesium Level 2.0 mg/dL (1.8-2.4) Total Bilirubin 0.4 mg/dL (0.2-1.0) Aspartate Amino Transf (AST/SGOT) 32 U/L (15-37) Alanine Aminotransferase (ALT/SGPT) 81 U/L (14-59) Alkaline Phosphatase 51 U/L (46-116) Troponin I Quantitative 0.038 ng/mL (0.000-0.055) 0.043 ng/mL (0.000-0.055) 0.035 ng/mL (0.000-0.055) 0.018 ng/mL (0.000-0.055) BU-Iix-G-Type Natriuretic Peptide 920 pg/mL (0-124) Total Protein 5.7 g/dL (6.4-8.2) Albumin 2.7 g/dL (3.4-5.0) Albumin/Globulin Ratio 0.9 (1.0-1.7) Assessment and Plan Assessmemt and Plan Problems Medical Problems: (1) Palpitation Status: Acute (2) Wide QRS ventricular tachycardia Status: Acute Comment Review of Relevant I have reviewed the following items jon (where applicable) has been applied. Medications: Current Medications Medications (Trade) Dose Ordered Sig/Keshav Route PRN Reason Start Time Stop Time Status Last Admin Dose Admin Sodium Chloride 500 ml @ 125 mls/hr 1X ONCE IV 11/04/20 13:15 11/04/20 17:14 DC 11/04/20 13:09 Allopurinol (Zyloprim) 300 mg DAILY PO 11/05/20 09:00 11/05/20 08:36 Aspirin (Ecotrin) 81 mg DAILY PO 11/05/20 09:00 11/05/20 08:36 Atorvastatin Calcium (Lipitor) 20 mg HS PO 11/04/20 21:00 11/04/20 21:27 Vitamin D (Vitamin D3) 1,000 unit DAILY PO 11/05/20 09:00 11/05/20 08:37 Fluticasone Propionate (Flonase) 2 spray DAILY NS 11/05/20 09:00 11/05/20 08:38 Gabapentin (Neurontin) 100 mg TID PO 11/04/20 15:00 11/05/20 08:37 Albuterol/ Ipratropium (Duoneb) 3 ml Q4HRS W/A NEB 11/04/20 14:00 11/05/20 07:38 Levothyroxine Sodium (Synthroid) 50 mcg DAILY07 PO 11/05/20 07:00 11/05/20 06:21 Montelukast Sodium (Singulair) 10 mg HS PO 11/04/20 21:00 11/04/20 21:27 Roflumilast (Daliresp) 500 mcg DAILY PO 11/05/20 09:00 11/05/20 08:37 Ropinirole HCl (Requip) 3 mg QHS PO 11/04/20 21:00 11/04/20 21:27 Torsemide (Demadex) 20 mg DAILY PO 11/05/20 09:00 11/05/20 08:36 Cetirizine HCl (ZyrTEC) 10 mg DAILY PO 11/05/20 09:00 11/05/20 08:37 Pantoprazole Sodium (Protonix) 40 mg DAILYAC PO 11/05/20 07:30 11/05/20 08:37 Enoxaparin Sodium (Lovenox 40mg Syringe) 40 mg Q24H SQ 11/04/20 16:00 11/04/20 15:08 Albuterol/ Ipratropium (Duoneb) 3 ml RTQID NEB 11/04/20 16:00 11/04/20 19:54 Budesonide (Pulmicort) 0.5 mg RTBID NEB 11/04/20 20:00 11/05/20 07:38 Morphine Sulfate (Morphine Sulfate) 2 mg PRN Q4HRS PRN IV PAIN 11/04/20 16:00 11/04/20 15:58 Metoprolol Succinate (Toprol Xl) 25 mg DAILY PO 11/04/20 16:15 11/05/20 08:37 Amitriptyline HCl (Elavil) 25 mg QHS PO 11/04/20 22:00 11/04/20 22:03 Sacubitril/ Valsartan (Entresto 49 Mg-51 Mg) 1 tab BID PO 11/04/20 22:00 11/05/20 08:40 DC 11/05/20 08:36 Justifications for Admission Other Justification PHONG YEBOAH MD Nov 05, 2020 10:16
[2020-11-05 10:34] VITALS: BP 110/50
--- NOTE | 2020-11-05 10:38 | CARD ---
MR#: [id number] Date of Study: 11/05/2020 Ordering Physician: KJ LORA, Referring Physician: KJ LORA Tech: Kassandra Reddy ELROY APPROVED REPORT EXAM: LIMITED Two-dimensional echocardiogram with Doppler and color Doppler. Other Information Quality : Good INDICATION LV Function:Systolic Evaluate Pulmonary Artery Pressure Tricuspid Valve TR P. [id number] TR Peak [id number] LEFT VENTRICLE The left ventricular systolic function is normal and the ejection fraction is within normal range. Th e Ejection Fraction is 50-55%. There is normal LV segmental wall motion. RIGHT VENTRICLE The right ventricular systolic function is normal. There is a pacemaker lead in the right ventricle. ATRIA A pacemaker is seen in the right atrium consistent with history. TRICUSPID VALVE The tricuspid valve is normal in structure and function. Doppler and Color Flow revealed trace tricus pid regurgitation. There is moderate pulmonary hypertension. The PA pressure was estimated at 50 mmHg . There is no tricuspid valve stenosis. GREAT VESSELS The aortic root is normal in size. PERICARDIAL EFFUSION There is no evidence of significant pericardial effusion. Critical Notification Critical Value: No <Conclusion> The left ventricular systolic function is normal and the ejection fraction is within normal range. Th e Ejection Fraction is 50-55%. There is normal LV segmental wall motion. There is a pacemaker lead in the right ventricle. Doppler and Color Flow revealed trace tricuspid regurgitation. There is moderate pulmonary hypertensi on. The PA pressure was estimated at 50 mmHg. Limited TTE only. Signed by : Hair Garza, Electronically Approved : 11/05/2020 10:38:18
--- NOTE | 2020-11-05 10:38 | SNU/HH DC ---
DISCHARGE ORDERS DISCHARGE INFORMATION: DISCHARGE DATE: Nov 05, 2020 FINAL DIAGNOSIS Problems Medical Problems: (1) Palpitation Status: Acute (2) Wide QRS ventricular tachycardia Status: Acute CONDITION ON DISCHARGE: Stable CODE STATUS: Code Status: Full CARE HOME: SNF STAY <30 DAYS: Yes POST DISCHARGE ORDERS: ACTIVITY ORDERS: Activity as tolerated WEIGHT BEARING STATUS: No restrictions BATHING ORDERS: No Tub Bath until see DIET AFTER DISCHARGE: Cardiac WOUND/INCISION CARE: Ice to area for comfort, Change dressing, May get incision wet CHECKS AFTER DISCHARGE: CHECKS AFTER DISCHARGE: Check blood press - daily, Check blood sugar, ac/hs, Weigh Yourself Daily TREATMENT/EQUIPMENT ORDERS: ADAPTIVE EQUIPMENT NEEDED: None RESPIRATORY EQUIPMENT NEEDED: Oxygen, Nebulizer, MDI Physical Therapy For: Evalulation/Treatment Occupational Therapy For: Evaluation/Treatment DISCHARGE MEDICATIONS: Home Meds Active Scripts Ipratropium/Albuterol Sulfate (DUONEB 0.5-3(2.5) MG/3 ML) 3 Ml Ampul.neb, 3 ML NEB Q4HRS for WHEEZING, COUGH for 14 Days, #84 EACH Prov:PHONG YEBOAH MD 10/22/19 Reported Medications Gabapentin (GABAPENTIN ) 100 Mg Capsule, 100 MG PO TID for NEUROGENIC PAIN, CAP 10/18/20 Alendronate Sodium (ALENDRONATE SODIUM) 70 Mg Tablet, 1 TAB PO WEEKLY for 10/16/20 Fluticasone Propionate (FLUTICASONE PROPIONATE NASAL SPRAY) 16 Gm [place].susp, 2 SPRAY NS DAILY for , EACH 10/16/20 Allopurinol (ALLOPURINOL) 300 Mg Tablet, 1 TAB PO DAILY for gout 10/16/20 Fluticasone/Umeclidin/Vilanter (Trelegy Ellipta 100-62.5-25) 1 Each Blst.w.dev, 1 EACH IH DAILY for rx 03/17/20 Omeprazole Magnesium (PRILOSEC OTC) 20 Mg Tablet.dr, 40 MG PO DAILY for rx, TAB 03/17/20 Sacubitril/Valsartan (Entresto 49 mg-51 mg Tablet) 1 Each Tablet, 49-51 MG PO BID for bp 07/30/19 Potassium Chloride (K-Tab ER) 20 Meq Tablet.er, 20 MEQ PO DAILY for hypokalemia 07/30/19 Montelukast Sodium (MONTELUKAST SODIUM TABLET ) 10 Mg Tablet, 10 MG PO HS for FOR ASTHMA, TAB 0 Refills 07/29/19 Levocetirizine Dihydrochloride (LEVOCETIRIZINE DIHYDROCHLORIDE) 5 Mg Tablet, 5 MG PO DAILY for allergies, TAB 07/29/19 Amitriptyline Hcl (AMITRIPTYLINE HCL) 25 Mg Tablet, 25 MG PO QHS for nerve pain, TAB 07/29/19 Acetaminophen (TYLENOL) 325 Mg Tablet, 650 MG PO PRN Q4HRS PRN for PAIN, TAB 07/29/19 Aspirin (ASPIR 81) 81 Mg Tablet.dr, 1 TAB PO DAILY, #30 TAB 5 Refills 01/03/18 Metoprolol Succinate (METOPROLOL SUCCINATE ( XL )) 25 Mg Tab.er.24h, 25 MG PO DAILY for FOR HYPERTENSION, #30 TAB 0 Refills 01/03/18 Cholecalciferol (Vitamin D3) (VITAMIN D3) 1,000 Unit Tablet, 1 TAB PO DAILY, #30 TAB 5 Refills 01/02/18 Torsemide (TORSEMIDE) 20 Mg Tablet, 1 TAB PO DAILY, #90 TAB 1 Refill 01/02/18 Roflumilast (DALIRESP) 500 Mcg Tablet, 1 TAB PO DAILY, #90 TAB 3 Refills 09/23/17 Atorvastatin Calcium (ATORVASTATIN CALCIUM) 20 Mg Tablet, 20 MG PO HS for FOR CHOLESTEROL, #30 TAB 0 Refills 09/23/17 Ropinirole Hcl (REQUIP) 1 Mg Tablet, 3 TAB PO QHS, #30 TAB 2 Refills 09/23/17 Albuterol Sulfate (PROAIR HFA INHALER) 8.5 Gm Hfa.aer.ad, 1 PUFF INH PRN Q6HRS PRN for SHORTNESS OF BREATH, INHALER 0 Refills 09/23/17 Levothyroxine Sodium (LEVOTHYROXINE SODIUM) 50 Mcg Tablet, 1 TAB PO DAILY, #30 TAB 5 Refills 09/23/17 Discontinued Reported Medications Prednisone (PREDNISONE) 20 Mg Tablet, 1 TAB PO BID for 10/16/20 Discontinued Scripts Doxycycline Hyclate (DOXYCYCLINE HYCLATE) 100 Mg Tablet, 1 TAB PO BID for copd, #14 TAB Prov:DEMETRA BABIN MD 05/16/20 PHONG YEBOAH MD Nov 05, 2020 10:37
--- NOTE | 2020-11-05 11:24 | NUR ---
SS following for discharge planning. SS reviewed pt chart and discussed with pt RN. Pt is from [facility], ; fax [phone]. Pt is currently requiring oxygen at three liters nasal canula. PT/OT ordered. Pt admitted for heart palpitation. Cardiology adjusting pt's Entresto today. SS spoke with Atilio at [facility] and was notified that if pt discharges by tomorrow they can accept back without requiring PT/OT notes or COVID19 test. They reported that if pt discharges past tomorrow then new referral will need to be sent. Dr. Mccloud notified. SS will continue to follow for discharge planning.
--- NOTE | 2020-11-05 11:50 | PDOC3 ---
Discharge Summary Visit Information Date of Admission: Nov 04, 2020 Date of Discharge: Nov 05, 2020 Admitting Diagnosis: Palpitations Final Diagnosis Problems Medical Problems: (1) Palpitation Status: Acute (2) Wide QRS ventricular tachycardia Status: Acute Brief Hospital Course Allergies Allergies Coded Allergies Type Severity Reaction Last Updated Verified ibuprofen Allergy Severe Swelling 08/09/18 Yes naproxen Allergy Severe Shortness of Air 10/25/18 Yes piperacillin Allergy Severe Swelling 11/17/19 Yes tazobactam Allergy Severe Swelling 08/09/18 Yes Vital Signs Vital Signs Date Time Temp Pulse Resp B/P (MAP) Pulse Ox O2 Delivery O2 Flow Rate FiO2 11/05/20 11:29 Nasal Cannula 3.0 11/05/20 10:34 98.0 89 18 110/50 (70) 98 98.0 Lab Results Laboratory Tests Test 11/04/20 11:21 11/04/20 14:09 11/04/20 17:30 11/05/20 06:13 White Blood Count 15.1 x10^3/uL (4.0-11.0) 8.8 x10^3/uL (4.0-11.0) Red Blood Count 3.67 x10^6/uL (3.50-5.40) 3.02 x10^6/uL (3.50-5.40) Hemoglobin 11.6 g/dL (12.0-15.5) 9.6 g/dL (12.0-15.5) Hematocrit 35.3 % (36.0-47.0) 29.0 % (36.0-47.0) Mean Corpuscular Volume 96 fL (79-100) 96 fL (79-100) Mean Corpuscular Hemoglobin 32 pg (25-35) 32 pg (25-35) Mean Corpuscular Hemoglobin Concent 33 g/dL (31-37) 33 g/dL (31-37) Red Cell Distribution Width 18.3 % (11.5-14.5) 18.8 % (11.5-14.5) Platelet Count 134 x10^3/uL (140-400) 114 x10^3/uL (140-400) Neutrophils (%) (Auto) 82 % (31-73) 80 % (31-73) Lymphocytes (%) (Auto) 14 % (24-48) 16 % (24-48) Monocytes (%) (Auto) 3 % (0-9) 3 % (0-9) Eosinophils (%) (Auto) 1 % (0-3) 1 % (0-3) Basophils (%) (Auto) 1 % (0-3) 0 % (0-3) Neutrophils # (Auto) 12.3 x10^3/uL (1.8-7.7) 7.0 x10^3/uL (1.8-7.7) Lymphocytes # (Auto) 2.2 x10^3/uL (1.0-4.8) 1.4 x10^3/uL (1.0-4.8) Monocytes # (Auto) 0.4 x10^3/uL (0.0-1.1) 0.3 x10^3/uL (0.0-1.1) Eosinophils # (Auto) 0.1 x10^3/uL (0.0-0.7) 0.0 x10^3/uL (0.0-0.7) Basophils # (Auto) 0.1 x10^3/uL (0.0-0.2) 0.0 x10^3/uL (0.0-0.2) D-Dimer (Katie) 0.47 ug/mlFEU (0.00-0.50) Sodium Level 143 mmol/L (136-145) 143 mmol/L (136-145) Potassium Level 3.8 mmol/L (3.5-5.1) 4.1 mmol/L (3.5-5.1) Chloride Level 102 mmol/L (98-107) 105 mmol/L (98-107) Carbon Dioxide Level 36 mmol/L (21-32) 35 mmol/L (21-32) Anion Gap 5 (6-14) 3 (6-14) Blood Urea Nitrogen 18 mg/dL (7-20) 20 mg/dL (7-20) Creatinine 1.1 mg/dL (0.6-1.0) 1.1 mg/dL (0.6-1.0) Estimated GFR (Cockcroft-Gault) 49.7 49.7 BUN/Creatinine Ratio 16 (6-20) Glucose Level 101 mg/dL (70-99) 110 mg/dL (70-99) Calcium Level 9.5 mg/dL (8.5-10.1) 8.1 mg/dL (8.5-10.1) Magnesium Level 2.0 mg/dL (1.8-2.4) Total Bilirubin 0.4 mg/dL (0.2-1.0) Aspartate Amino Transf (AST/SGOT) 32 U/L (15-37) Alanine Aminotransferase (ALT/SGPT) 81 U/L (14-59) Alkaline Phosphatase 51 U/L (46-116) Troponin I Quantitative 0.038 ng/mL (0.000-0.055) 0.043 ng/mL (0.000-0.055) 0.035 ng/mL (0.000-0.055) 0.018 ng/mL (0.000-0.055) LI-Eho-P-Type Natriuretic Peptide 920 pg/mL (0-124) Total Protein 5.7 g/dL (6.4-8.2) Albumin 2.7 g/dL (3.4-5.0) Albumin/Globulin Ratio 0.9 (1.0-1.7) Laboratory Tests Test 11/04/20 14:09 11/04/20 17:30 11/05/20 06:13 Troponin I Quantitative 0.043 ng/mL (0.000-0.055) 0.035 ng/mL (0.000-0.055) 0.018 ng/mL (0.000-0.055) White Blood Count 8.8 x10^3/uL (4.0-11.0) Red Blood Count 3.02 x10^6/uL (3.50-5.40) Hemoglobin 9.6 g/dL (12.0-15.5) Hematocrit 29.0 % (36.0-47.0) Mean Corpuscular Volume 96 fL (79-100) Mean Corpuscular Hemoglobin 32 pg (25-35) Mean Corpuscular Hemoglobin Concent 33 g/dL (31-37) Red Cell Distribution Width 18.8 % (11.5-14.5) Platelet Count 114 x10^3/uL (140-400) Neutrophils (%) (Auto) 80 % (31-73) Lymphocytes (%) (Auto) 16 % (24-48) Monocytes (%) (Auto) 3 % (0-9) Eosinophils (%) (Auto) 1 % (0-3) Basophils (%) (Auto) 0 % (0-3) Neutrophils # (Auto) 7.0 x10^3/uL (1.8-7.7) Lymphocytes # (Auto) 1.4 x10^3/uL (1.0-4.8) Monocytes # (Auto) 0.3 x10^3/uL (0.0-1.1) Eosinophils # (Auto) 0.0 x10^3/uL (0.0-0.7) Basophils # (Auto) 0.0 x10^3/uL (0.0-0.2) Sodium Level 143 mmol/L (136-145) Potassium Level 4.1 mmol/L (3.5-5.1) Chloride Level 105 mmol/L (98-107) Carbon Dioxide Level 35 mmol/L (21-32) Anion Gap 3 (6-14) Blood Urea Nitrogen 20 mg/dL (7-20) Creatinine 1.1 mg/dL (0.6-1.0) Estimated GFR (Cockcroft-Gault) 49.7 Glucose Level 110 mg/dL (70-99) Calcium Level 8.1 mg/dL (8.5-10.1) Brief Hospital Course Ms Mathur is a 65yo F w/ PMHx PMHx chronic respiratory failure, unknown FEV1, COPD, cardiomyopathy, tobacco dependence, in remission, quit 09/2019, hypertension, chronic heart failure, type 2 diabetes, and hypothyroidism presen ts here by EMS from [facility] rehab due to heart palpitation. Patient was walking at the time when she suddenly feel her heart was racing fast. Nursing staff checked her heart rate and it was in 180 bpm, they did an EKG, showed heart rate 175 beats per minute, wide QRS tachycardia, left bundle branch block, no ST segment elevation. Patient denies any chest pain, no abdominal pain, no cough, no fever. Patient denies any trouble breathing. Patient had a defibrillator, patient said the defibrillator did not fire. Of note she has not been receiving her metoprolol at Chest radiograph with no acute abnormalities. WBC 15.1, Hb 11.6, Platelets 134, Na 143, K 3.8, BUN 18, Cr 1.1, Glucose 101, BNP 920, Albumin 2.7, Trop 0.038 EKG sinus tachycardia 115bpm, no STEMI Given saline bolus for SBP < 90. Admitted for further observation and treatment. HR controlled with restarting BB. Troponin trended downward. bedside. Feeling improved no CP or palpitations today. On baseline O2. Consults; Cardiology - emphasized importance of not discontinuing BB. Would hold entresto for low BP, but not metoprolol Problem list: Tachycardia - symptomatic, negative d dimer. Consulted cardiology. Trend troponins was downward. Cont metoprolol Elevated troponin - likely demand ischemia, will trend. Cardiology consulted Leukocytosis - likely steroid related Thrombocytopenia - uncertain etiology, stable Severe COPD - will continue nebs Chronic hypoxic respiratory failure Atypical chest pain possible NSTEMI ruled out Negative for COVID-19 infection Acute on Chronic diastolic CHF Hypertension, controlled Dyslipidemia History of nonischemic cardiomyopathy Greater than 30 minutes spent on d/c to acute rehab Discharge Information Condition at Discharge: Improved Follow Up: Weeks (1) Disposition/Orders: D/C to Another Facility Scheduled Alendronate Sodium (Alendronate Sodium) 70 Mg Tablet, 1 TAB PO WEEKLY for , (Reported) Entered as Reported by: DAMARIS SÁNCHEZ RN on 10/16/2013 Allopurinol (Allopurinol) 300 Mg Tablet, 1 TAB PO DAILY for gout, (Reported) Entered as Reported by: DAMARIS SÁNCHEZ RN on 10/16/2013 Last Action: Continued on 11/04/20 1354 by PHONG YEBOAH MD Amitriptyline Hcl (Amitriptyline Hcl) 25 Mg Tablet, 25 MG PO QHS for nerve pain, (Reported) Entered as Reported by: BURTON HORTON on 07/29/192105 Last Action: Continued on 11/04/202148 by Maia Hernandez Aspirin (Aspir 81) 81 Mg Tablet., 1 TAB PO DAILY, #30 Ref 5 (Reported) Entered as Reported by: MAIA BONE on 01/03/18 1332 Last Action: Continued on 11/04/20 1355 by PHONG YEBOAH MD Atorvastatin Calcium (Atorvastatin Calcium) 20 Mg Tablet, 20 MG PO HS for FOR CHOLESTEROL, #30 Ref 0 (Reported) Entered as Reported by: SANDRO CRAFT on 09/23/17 1028 Last Action: Continued on 11/04/201354 by PHONG YEBOAH MD Cholecalciferol (Vitamin D3) (Vitamin D3) 1,000 Unit Tablet, 1 TAB PO DAILY, #30 Ref 5 (Reported) Entered as Reported by: Kenya Hodgson on 01/02/18 1012 Last Action: Continued on 11/04/201354 by PHONG YEBOAH MD Fluticasone Propionate (Fluticasone Propionate Nasal [place]) 16 Gm [place].susp, 2 SPRAY NS DAILY for , (Reported) Entered as Reported by: DAMARIS SÁNCHEZ RN on 10/16/20 0014 Last Action: Continued on 11/04/201354 by PHONG YEBOAH MD Fluticasone/Umeclidin/Vilanter (Trelegy Ellipta 100-62.5-25) 1 Each Blst.w.dev, 1 EACH IH DAILY for rx, (Reported) Entered as Reported by: KATT RIVERA on 03/17/20 0748 Last Action: Converted on 11/04/201354 by PHONG YEBOAH MD Gabapentin (Gabapentin ) 100 Mg Capsule, 100 MG PO TID for NEUROGENIC PAIN, (Reported) Entered as Reported by: NURY VAUGHN on 10/18/20 1012 Last Action: Continued on 11/04/201354 by PHONG YEBOAH MD Ipratropium/Albuterol Sulfate (Duoneb 0.5-3(2.5) Mg/3 Ml) 3 Ml Ampul.neb, 3 ML NEB Q4HRS for WHEEZING, COUGH for 14 Days, #84 Prescribed by: PHONG YEBOAH MD on 10/22/19 1305 Last Action: Continued on 11/04/201354 by PHONG YEBOAH MD Levocetirizine Dihydrochloride (Levocetirizine Dihydrochloride) 5 Mg Tablet, 5 MG PO DAILY for allergies, (Reported) Entered as Reported by: BURTON HORTON on 07/29/19 2106 Last Action: Converted on 11/04/201354 by PHONG YEBOAH MD Levothyroxine Sodium (Levothyroxine Sodium) 50 Mcg Tablet, 1 TAB PO DAILY, #30 Ref 5 (Reported) Entered as Reported by: SANDRO CRAFT on 09/23/17 1028 Last Action: Continued on 11/04/201354 by PHONG YEBOAH MD Metoprolol Succinate (Metoprolol Succinate ( Xl )) 25 Mg Tab.er.24h, 25 MG PO DAILY for FOR HYPERTENSION, #30 Ref 0 (Reported) Entered as Reported by: MAIA BONE on 01/03/18 1331 Last Action: Continued on 11/04/201354 by PHONG YEBOAH MD Montelukast Sodium (Montelukast Sodium Tablet ) 10 Mg Tablet, 10 MG PO HS for FOR ASTHMA, Ref 0 (Reported) Entered as Reported by: BURTON OHRTON on 07/29/19 2106 Last Action: Continued on 11/04/201354 by PHONG YEBOAH MD Omeprazole Magnesium (Prilosec Otc) 20 Mg Tablet.dr, 40 MG PO DAILY for rx, (Reported) Entered as Reported by: KATT RIVERA on 03/17/20 0748 Last Action: Converted on 11/04/201354 by PHONG YEBOAH MD Potassium Chloride (K-Tab ER) 20 Meq Tablet.er, 20 MEQ PO DAILY for hypokalemia, (Reported) Entered as Reported by: CECILIA NOVAK on 07/30/191942 Roflumilast (Daliresp) 500 Mcg Tablet, 1 TAB PO DAILY, #90 Ref 3 (Reported) Entered as Reported by: SANDRO CRAFT on 09/23/17 1028 Last Action: Continued on 11/04/201354 by PHONG YEBOAH MD Ropinirole Hcl (Requip) 1 Mg Tablet, 3 TAB PO QHS, #30 Ref 2 (Reported) Entered as Reported by: SANDRO CRAFT on 09/23/17 1028 Last Action: Continued on 11/04/201354 by PHONG YEBOAH MD Sacubitril/Valsartan (Entresto 49 mg-51 mg Tablet) 1 Each Tablet, 49-51 MG PO BID for bp, (Reported) Entered as Reported by: CECILIA NOVAK on 07/30/191942 Last Action: Continued on 11/04/201354 by PHONG YEBOAH MD Torsemide (Torsemide) 20 Mg Tablet, 1 TAB PO DAILY, #90 Ref 1 (Reported) Entered as Reported by: Kenya Hodgson on 01/02/18 1012 Last Action: Continued on 11/04/20 1355 by PHONG YEBOAH MD Scheduled PRN Acetaminophen (Tylenol) 325 Mg Tablet, 650 MG PO PRN Q4HRS PRN for PAIN, (Reported) Entered as Reported by: BURTON HORTON on 07/29/19 2106 Last Action: Continued on 11/04/20 1354 by PHONG YEBOAH MD Albuterol Sulfate (Proair Hfa Inhaler) 8.5 Gm Hfa.aer.ad, 1 PUFF INH PRN Q6HRS PRN for SHORTNESS OF BREATH, Ref 0 (Reported) Entered as Reported by: SANDRO CRAFT on 09/23/17 1028 Last Action: Continued on 11/04/20 1354 by PHONG YEBOAH MD Discontinued Medications Doxycycline Hyclate (Doxycycline Hyclate) 100 Mg Tablet, 1 TAB PO BID for copd, #14 Prescribed by: DEMETRA BABIN on 05/16/20 1014 Prednisone (Prednisone) 20 Mg Tablet, 1 TAB PO BID for , (Reported) Entered as Reported by: DAMARIS SÁNCHEZ RN on 10/16/20 0014 Justicifation of Admission Dx: Justifications for Admission: Justification of Admission Dx: Yes PHONG YEBOAH MD Nov 05, 2020 11:50
--- NOTE | 2020-11-05 13:57 | NUR ---
SS following up with discharge planning. Discharge orders received for return to [facility], ; fax [phone]. SS phoned and faxed discharge orders and clinical to [facility]. Pt will discharge today and return to [facility] between 1700 and 1730. [facility] to provide transportation. Pt and pt's RN notified.
--- NOTE | 2020-11-05 14:20 | PDOC ---
KJ LORA SURGICAL COORDINATOR 11/05/20 1420: CARDIO Progress Notes Date and Time Date of Service 11/05/2020 Time of Evaluation 1020 Subjective Subjective: No Chest Pain, No shortness of breath, No Palpitations, Other (tolerating increase activity with rehab) Vitals Vitals Vital Signs Date Time Temp Pulse Resp B/P (MAP) Pulse Ox O2 Delivery O2 Flow Rate FiO2 11/05/20 11:29 Nasal Cannula 3.0 11/05/20 10:34 98.0 89 18 110/50 (70) 98 98.0 Weight Weight [ ] Input and Output Intake and Output Intake and Output 11/05/20 07:00 Intake Total 600 ml Balance 600 ml Intake Oral 600 ml # Voids 2 Laboratory Labs Laboratory Tests Test 11/04/20 17:30 11/05/20 06:13 Troponin I Quantitative 0.035 ng/mL (0.000-0.055) 0.018 ng/mL (0.000-0.055) White Blood Count 8.8 x10^3/uL (4.0-11.0) Red Blood Count 3.02 x10^6/uL (3.50-5.40) Hemoglobin 9.6 g/dL (12.0-15.5) Hematocrit 29.0 % (36.0-47.0) Mean Corpuscular Volume 96 fL (79-100) Mean Corpuscular Hemoglobin 32 pg (25-35) Mean Corpuscular Hemoglobin Concent 33 g/dL (31-37) Red Cell Distribution Width 18.8 % (11.5-14.5) Platelet Count 114 x10^3/uL (140-400) Neutrophils (%) (Auto) 80 % (31-73) Lymphocytes (%) (Auto) 16 % (24-48) Monocytes (%) (Auto) 3 % (0-9) Eosinophils (%) (Auto) 1 % (0-3) Basophils (%) (Auto) 0 % (0-3) Neutrophils # (Auto) 7.0 x10^3/uL (1.8-7.7) Lymphocytes # (Auto) 1.4 x10^3/uL (1.0-4.8) Monocytes # (Auto) 0.3 x10^3/uL (0.0-1.1) Eosinophils # (Auto) 0.0 x10^3/uL (0.0-0.7) Basophils # (Auto) 0.0 x10^3/uL (0.0-0.2) Sodium Level 143 mmol/L (136-145) Potassium Level 4.1 mmol/L (3.5-5.1) Chloride Level 105 mmol/L (98-107) Carbon Dioxide Level 35 mmol/L (21-32) Anion Gap 3 (6-14) Blood Urea Nitrogen 20 mg/dL (7-20) Creatinine 1.1 mg/dL (0.6-1.0) Estimated GFR (Cockcroft-Gault) 49.7 Glucose Level 110 mg/dL (70-99) Calcium Level 8.1 mg/dL (8.5-10.1) Physical Exam HEENT: Neck Supple W Full Motion Chest: Symmetric LUNGS: Clear to Auscultation Heart: S1S2, RRR (SR no further ectopies) Abdomen: Soft N/T Extremities: No Edema, No Calf Tenderness Neurology: alert, oriented, follow commands Assessment Assessment 1. Palpitations: due to AFIB/flutter. EF and WM nml 2. PAFIB/flutter: new, none further since BB restarted. Low burden so far. 3. 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 Chronic diastolic CHF: Appears compensated and no further wheezing. 5. Hx of HTN: SBP marginal at 90s 6. CKD3: Cr stable 7. COPD: possibly on the severe spectrum. PAP 50 mmHg 8. Hx of NICM with chronic LBBB Recommendations 1. Pt apparently has not been receiving BB at the rehab center. No further ectopies since BB started. Continue toprol 2. Continue ASA for stroke prevention. She has been noted with mild thrombocyt openia in the past. Will reeval burden on her next follow up for any NOAC consideration. Her transmitted is at home and spouse will bring it to rehab. 3. Would not be a candidate for either sotalol nor amiodarone given her pulmonary issue. 4. Restart entresto and torsemide 6. Patient has slowly progressively growing lung nodules, scheduled for outpatient pulmonary appointment in December with a PET scan prior to appointment 7. Anticipate back to [facility] today, follow up in office as scheduled Nov 27 1045 AM Justicifation of Admission Dx: Justifications for Admission: Justification of Admission Dx: Yes SAMM CRUZ MD 11/05/20 1604: CARDIO Progress Notes Assessment Assessment Patient seen and examined. Agree with COPY COORDINATOR's assessment and plan. PAF newly diagnosed, presently sinus rhythm. Telemetry did not show any further episodes. Continue beta-blockers. We will consider event monitor as an outpa tient to assess AF burden to guide therapy. Chr diastolic HF well compensated Recent cardiac cath did not show any significant CAD We will obtain 2D echo to evaluate LVEF Recent ELECTRO MECHANICAL ENGINEER-D interrogation normal Pulm following for COPD/lung nodules -scheduled for outpatient PET scan KJ LORA APRN Nov 05, 2020 14:20 SAMM CRUZ MD Nov 05, 2020 16:04
[2020-11-05 14:39] VITALS: BP 102/36
[2020-11-05] MEDS: ENOXAPARIN 40 MG/0.4 ML SYRINGE. SQ SCH (16:00)
--- NOTE | 2020-11-05 18:00 | NUR ---
Discharge Note: JAYCOB CRAWFORD [address] Discharge instructions and discharge home medications reviewed with Patient and a copy given. All questions have been answered and understanding verbalized. The following instructions and handouts were given: metoprolol Patient discharged to [facility] with transport via wheelchair.
[2020-11-06] MEDS ORDERED: SACUBITRIL/VALSARTAN 49/51MG TABLET. PO SCH (09:00)
== END 2020-11-05 18:00 | disposition short-term general hospital, planned readmission (82) ==
LOC: ER 11:12 → 2 NORTH 12:52
PROVIDERS: ADMIT Internal Medicine; ATTEND Internal Medicine
DX: I47.2 Ventricular tachycardia (principal); J96.21 Acute and chronic respiratory failure with hypoxia; I13.0 Hypertensive heart and chronic kidney disease with heart failure and stage 1 through stage 4 chronic kidney disease, or unspecified chronic kidney disease; I50.33 Acute on chronic diastolic (congestive) heart failure; N18.30 Chronic kidney disease, stage 3 unspecified; E11.22 Type 2 diabetes mellitus with diabetic chronic kidney disease; I44.7 Left bundle-branch block, unspecified; I48.0 Paroxysmal atrial fibrillation; I24.8 Other forms of acute ischemic heart disease; I42.8 Other cardiomyopathies; I25.10 Atherosclerotic heart disease of native coronary artery without angina pectoris; I48.92 Unspecified atrial flutter; D72.829 Elevated white blood cell count, unspecified; D69.6 Thrombocytopenia, unspecified; E78.5 Hyperlipidemia, unspecified; E78.00 Pure hypercholesterolemia, unspecified; E03.9 Hypothyroidism, unspecified; G25.81 Restless legs syndrome; J44.9 Chronic obstructive pulmonary disease, unspecified; M81.0 Age-related osteoporosis without current pathological fracture; I27.20 Pulmonary hypertension, unspecified; K21.9 Gastro-esophageal reflux disease without esophagitis; R74.8 Abnormal levels of other serum enzymes; M19.90 Unspecified osteoarthritis, unspecified site; R00.2 Palpitations; Z87.891 Personal history of nicotine dependence; Z90.710 Acquired absence of both cervix and uterus; Z95.0 Presence of cardiac pacemaker; Z79.82 Long term (current) use of aspirin; Z98.890 Other specified postprocedural states; Z90.49 Acquired absence of other specified parts of digestive tract
CPT/HCPCS: 36415; 71045; 80048; 80053; 83735; 83880; 84484; 85025; 85379; 93005; 93308; 93320; 93325; 94640; 94760; 96372; 96374; 97110; 97161; 97166; 97535; 99285; G0378; J1650; J2270; J7040; J7626; G0379

== ENCOUNTER → 2020-12-05 | Outpatient (CLI) | payer MEDICARE, OTHER ==
[2020-11-19 15:00] VITALS: BP 118/58
[~2020-12-05] MED LIST changes: +APIX5TAB PO; +CYCL5TAB PO; +SACU1TAB PO; +SOTA80TA20 PO; +SOTA80TA48 PO
--- NOTE | 2020-12-05 19:16 | RAD ---
EXAM: NM PET/CT SKULL BASE TO MID THIGH EXAM DATE: 12/05/2020 INDICATION: Reason: R UPPER LOBE LUNG NODULES / Spl. Instructions: / History: RADIOPHARMACEUTICAL: 14.9 mCi of F-18 Fluorodeoxyglucose (FDG) I.V. via the right antecubital fossa. TECHNIQUE: Patient weight: 159 pounds. Following at least four-hour fasting, the patient's blood gluc ose was 153 mg/dl. Approximately an hour and a half after administration of FDG, overlapping emissio n scanning was performed from the orbital meatal line through the pelvis. A low-dose CT was performe d for attenuation correction purposes and anatomic localization. Fused images of PET and CT were revi ewed. Any standardized uptake values (SUV) reported are maximum values within a volume region of int erest, expressed in gm/ml. COMPARISON: CT chest without IV contrast of 10/28/2020 FINDINGS: PET: No abnormal FDG uptake is identified. CT: Head and neck show no adenopathy or mass. The thyroid is normal in size and density on noncontrast CT . Chest shows that numerous bilateral subcentimeter pulmonary nodules, largest measuring 6 mm in the po sterior right upper lobe (image 103, series 3) are still present, somewhat obscured by respiratory mo tion artifact on this examination. No pleural effusion. No adenopathy. Left chest pacemaker is redemo nstrated. Abdomen and pelvis show prior cholecystectomy, scattered colonic diverticuli, the right gluteal neuro stimulator with electrode in the left presacral soft tissues. The uterus and ovaries are not seen and may be surgically absent. IMPRESSION: Numerous bilateral subcentimeter pulmonary nodules persist but show no abnormal FDG uptake at this ti me. This could be an artifact of their small size. Although metastatic disease can yield this appeara nce, benign etiologies such as granulomatous disease in the differential diagnosis. Continued close CT follow-up is suggested. Per Fleischner Society guidelines, in a high-risk patient for lung cancer, CT follow-up at 3-6 months following initial diagnosis then an optional follow-up (a ssuming stability) at 18-24 months for multiple nodules 6 to 8 mm in size is recommended. Electronically signed by: Heather Barron MD (12/05/2020 7:13 PM) [id number]
== END ==
LOC: PETSC 08:55
PROVIDERS: ATTEND Internal Medicine Critical Care Medicine
DX: R91.8 Other nonspecific abnormal finding of lung field (principal)
CPT/HCPCS: 78815; A9552

== ENCOUNTER → 2021-04-03 | Outpatient (CLI) | payer MEDICARE, OTHER ==
[2020-11-19 15:00] VITALS: BP 118/58
--- NOTE | 2021-04-03 11:34 | RAD ---
CT THORAX WO History: Left lung nodule. Comparison: PET/CT 12/05/2020. CT chest 10/28/2020, 05/09/2020, 10/26/2018. Technique: Noncontrast CT of the chest. Findings: Assessment is limited by lack of IV contrast. Cardiovascular: Left chest 3-lead pacemaker-defibrillator. Mild calcification of the aortic arch. Tra ce pericardial fluid Mediastinum and sb: Precarinal lymph node measures 8 mm. Not significantly changed from 2019. Unrem arkable thyroid. Airways, lungs and pleura: Pulmonary innumerable bilateral pulmonary nodules with development and/or enlargement enlargement from 2019, largest measures 8 mm right upper lobe (axial 55), additional nodu les including left upper lobe 5 mm nodule (axial 108), left upper lobe 7 mm (axial 109), right lower lobe 5 mm (axial 112). Upper abdomen: Cholecystectomy clips. Calcifications partially visualized in the upper kidneys. Osseous structures and soft tissues: Within normal limits for age. Impression: 1. Innumerable pulmonary nodules developing and/or enlarging consistently over multiple exams beginn ing from 2019 comparison. The largest measures 8 mm in the right upper lobe. This remains concerning for possible metastatic versus granulomatous disease. ------ Exposure: One or more of the following individualized dose reduction techniques were utilized for thi s examination: 1. Automated exposure control 2. Adjustment of the mA and/or kV according to patient size 3. Use of iterative reconstruction technique. Electronically signed by: James De Jesus MD (04/03/2021 11:31 AM) [id number]
== END ==
LOC: CT 09:31
PROVIDERS: ATTEND Internal Medicine Critical Care Medicine
DX: R91.8 Other nonspecific abnormal finding of lung field (principal); I70.0 Atherosclerosis of aorta; R59.0 Localized enlarged lymph nodes; N28.89 Other specified disorders of kidney and ureter; Z90.49 Acquired absence of other specified parts of digestive tract
CPT/HCPCS: 71250

== ENCOUNTER → 2021-04-20 | Outpatient (CLI) | payer MEDICARE, OTHER ==
[2020-11-19 15:00] VITALS: BP 118/58
[~2021-04-20] MED LIST changes: +CONTRAST GIVEN. MC PRN; +IOHEXOL 240 MG/ML 50ML VIAL. PO ONE
--- NOTE | 2021-04-20 14:48 | RAD ---
EXAM: CT CHEST, ABDOMEN, AND PELVIS WITHOUT CONTRAST INDICATION: Lung nodule COMPARISON: CT chest 04/03/2021 and 10/28/2020 TECHNIQUE: Helical CT imaging performed of the chest, abdomen and pelvis without the use of intraveno us contrast. Sagittal and coronal reformats were obtained. One or more of the following individualized dose reduction techniques were utilized for this examinat ion: 1. Automated exposure control 2. Adjustment of the mA and/or kV according to patient size 3. Use of iterative reconstruction technique. FINDINGS: CHEST: Thyroid gland and thoracic inlet: Visual is portion of thyroid gland is normal. Heart and great vessels: Heart is normal in size. There is a pacemaker/AICD. Thoracic aorta is normal in caliber. Mediastinum and sb: No mediastinal or hilar lymphadenopathy. Lungs and pleura: Numerous round pulmonary nodules throughout both lungs are unchanged. The largest i s a 8 mm pulmonary nodule in the right upper lobe. There are multiple other bilateral pulmonary nodul es measuring 5 to 7 mm and similar smaller. Mild emphysema. No pleural effusion. There is airway wall thickening. Chest wall and axillae: No axillary lymphadenopathy. Breast tissue symmetric. Bones: No acute osseous abnormality. ABDOMEN AND PELVIS: Liver: Normal noncontrast appearance of the liver. Gallbladder/Biliary Tree: Post cholecystectomy. Common bile duct is prominent but tapers distally. Pancreas: Normal. Spleen: Normal. Adrenal Glands: Normal. Kidneys/Ureters/Bladder: Kidneys are normal in size. There is right nephrolithiasis. No hydronephrosi s. Ureters are normal. Urinary bladder is normal. Reproductive Organs: Uterus is surgically absent. No adnexal mass. Stomach, small bowel, and colon: Mild diffuse gastric wall thickening along the greater curvature of the stomach without focal mass. Diverticula in the first portion of the duodenum. Possible mild wall thickening in the second portion of the duodenum versus redundancy of the duodenum. No small bowel ob struction. There is sigmoid diverticulosis. No acute diverticulitis. The appendix is normal. Vasculature: Abdominal aorta is normal in caliber. Mild scattered calcifications. Lymph Nodes: There is no lymphadenopathy. Peritoneum and retroperitoneum: No free fluid or free air. Bones: No pelvic osseous abnormality in the abdomen and pelvis. IMPRESSION: 1. Multiple pulmonary nodules are unchanged and concerning for metastatic disease. 2. Mild wall thickening along the greater curvature of the stomach, nonspecific. This could be relat ed to gastritis although underlying mass is not excluded. Possible mild wall thickening in the second portion of the duodenum versus redundancy of the duodenum. Correlate with EGD. 3. No lymphadenopathy in the chest, abdomen, or pelvis. 4. Mild sigmoid diverticulosis. 5. Right nephrolithiasis. Electronically signed by: Emma Lizama MD (04/20/2021 2:45 PM) [id number]
== END ==
LOC: CT 11:31
PROVIDERS: ATTEND Internal Medicine Critical Care Medicine
DX: K57.30 Diverticulosis of large intestine without perforation or abscess without bleeding (principal); N20.0 Calculus of kidney; R91.8 Other nonspecific abnormal finding of lung field; J43.9 Emphysema, unspecified
CPT/HCPCS: 71250; 74176; Q9966

== ENCOUNTER → 2021-04-29 | Outpatient (CLI) | payer MEDICARE, OTHER ==
[2020-11-19 15:00] VITALS: BP 118/58
[~2021-04-29] MED LIST changes: -CONTRAST GIVEN. MC PRN; -IOHEXOL 240 MG/ML 50ML VIAL. PO ONE
[2021-04-29 14:04] LABS: CALCIUM 9.3 mg/dL (8.5-10.1); CREATININE 1.2 mg/dL (0.6-1.0); GFR 44.8; POTASSIUM 4.8 mmol/L (3.5-5.1)
== END ==
LOC: LAB 13:23
DX: I34.0 Nonrheumatic mitral (valve) insufficiency (principal)
CPT/HCPCS: 36415; 80048

== ENCOUNTER 2021-05-19 08:11 | Outpatient (CLI) | payer MEDICARE, OTHER ==
[~2021-05-19] VITALS: Ht 152.4 cm; Wt 63.6 kg
[2021-05-19] VITALS (8 sets, daily range): BP systolic 68–90; BP diastolic 34–45
[2021-05-19 09:12] LABS: BASO % 1 % (0-3); EOS # 0.1 x10^3/uL (0.0-0.7); EOS % 1 % (0-3); HEMATOCRIT 22.2 % (36.0-47.0); HEMOGLOBIN 7.1 g/dL (12.0-15.5); LYMPH # 1.3 x10^3/uL (1.0-4.8); LYMPH % 14 % (24-48); MEAN CORPUSCULAR HEMOGLOBIN 30 pg (25-35); MEAN CORPUSCULAR HGB CONC 32 g/dL (31-37); MEAN CORPUSCULAR VOLUME 94 fL (79-100); MONO # 0.5 x10^3/uL (0.0-1.1); MONO % 5 % (0-9); NEUT # 7.6 x10^3/uL (1.8-7.7); NEUT % 80 % (31-73); PLATELET COUNT 460 x10^3/uL (140-400); RED BLOOD COUNT 2.38 x10^6/uL (3.50-5.40); RED CELL DISTRIBUTION WIDTH 20.5 % (11.5-14.5); WHITE BLOOD COUNT 9.5 x10^3/uL (4.0-11.0)
[2021-05-19 09:28] LABS: PROTHROMBIN TIME PATIENT 12.1 SEC (11.7-14.0)
[2021-05-19] MEDS ORDERED: AMIO200T6 PO (09:40)
[2021-05-19] MEDS ORDERED: SUCR1TAB PO (09:40)
[2021-05-19] MEDS ORDERED: DILT240T8 PO (09:40)
[2021-05-19] MEDS ORDERED: DICL20GE TP (09:40)
[2021-05-19] MEDS ORDERED: SPIR25TA5 PO (09:51)
[2021-05-19] MEDS ORDERED: METO-239 PO (09:51)
[2021-05-19 10:10] LABS: ANISOCYTOSIS MOD; PLT ESTIMATE INCREASED (ADEQUATE); POLYCHROMASIA PRESENT
[2021-05-19] MEDS ORDERED: IV NORMAL SALINE 250ML 250 ML IV ONE (10:15)
--- NOTE | 2021-05-19 11:19 | NUR ---
Pt. was scheduled for a lung biopsy. Though was unable to complete the procedure due to hypotension. Pt's blood pressure was taken multiple times on both arms, with appropriate cuff. First bp was 76/36, with the lowest bp at 68/34. Dr. Arora notified; Dr. Arora contacted the therapeutic sales specialist. Pt was given 250cc ns bolus and breakfast. Mrs. Mathur's bp increased to 90/42. An appointment was made for Mrs. Mathur, with Dr. Driscoll on 05/21 @ 11am. The appointment time, a new list of current medications, and new list of current labs given to Mrs. Mathur; to take to her doctor appointment. Education was given to and Mr. Mathur on hypotension signs/symptoms and what to do if feeling lightheaded and dizzy. Mrs. Mathur was walked out, per patient request, to the out patient entrance where her was waiting with their car.
== END 2021-05-19 11:32 | disposition home or self-care (01) ==
LOC: INTRAD 08:11
PROVIDERS: ATTEND Internal Medicine Critical Care Medicine
DX: R91.8 Other nonspecific abnormal finding of lung field (principal); Z53.8 Procedure and treatment not carried out for other reasons; I11.0 Hypertensive heart disease with heart failure; I50.9 Heart failure, unspecified; I48.91 Unspecified atrial fibrillation; I25.10 Atherosclerotic heart disease of native coronary artery without angina pectoris; E78.00 Pure hypercholesterolemia, unspecified; E11.9 Type 2 diabetes mellitus without complications; E03.9 Hypothyroidism, unspecified; J44.9 Chronic obstructive pulmonary disease, unspecified; M19.90 Unspecified osteoarthritis, unspecified site; M81.0 Age-related osteoporosis without current pathological fracture; Z90.49 Acquired absence of other specified parts of digestive tract; Z90.710 Acquired absence of both cervix and uterus; Z98.890 Other specified postprocedural states; Z87.891 Personal history of nicotine dependence; Z79.82 Long term (current) use of aspirin; Z79.899 Other long term (current) drug therapy; Z82.49 Family history of ischemic heart disease and other diseases of the circulatory system; Z83.3 Family history of diabetes mellitus; Z88.8 Allergy status to other drugs, medicaments and biological substances
CPT/HCPCS: 36415; 85025; 85610; J7050; J7030

== ENCOUNTER 2021-05-25 08:28 | Outpatient (CLI) | payer MEDICARE, OTHER ==
[2021-05-25] VITALS (22 sets, daily range): BP systolic 63–93; BP diastolic 37–49
[~2021-05-25] VITALS: Ht 152.4 cm; Wt 64.0 kg
[~2021-05-25 08:28] MED LIST changes: +AMIO200T6 PO; +DICL20GE TP; +DILT240T8 PO; +SPIR25TA5 PO; +SUCR1TAB PO
[2021-05-25] MEDS ORDERED: METH-561 PO (08:59)
[2021-05-25] MEDS ORDERED: LIDOCAINE WITH 8.4% SOD BICARB 3 ML DISP.SYRIN. ONE ×2 (09:22→10:29)
[2021-05-25] MEDS ORDERED: MIDAZOLAM HCL/PF 2 MG/2 ML VIAL. ONE (09:36)
[2021-05-25] MEDS ORDERED: fentaNYL PF VIAL 100 MCG/2 ML VIAL ONE (09:37)
[2021-05-25] MEDS ORDERED: MIDAZOLAM HCL/PF 2 MG/2 ML VIAL. IV ONE (09:45)
[2021-05-25] MEDS ORDERED: fentaNYL PF VIAL 100 MCG/2 ML VIAL IV ONE (09:45)
[2021-05-25] MEDS ORDERED: LIDOCAINE WITH 8.4% SOD BICARB 3 ML DISP.SYRIN. IJ ONE (09:45)
[2021-05-25] MEDS ORDERED: KETOROLAC 15 MG/ML VIAL. IVP ONE (12:30)
[2021-05-25] MEDS ORDERED: ACETAMINOPHEN 325 MG TABLET. PO ONE (12:45)
[2021-05-25] MEDS ORDERED: ACETAMINOPHEN 325 MG TABLET. PO PRN (13:00)
--- NOTE | 2021-05-25 13:20 | RAD ---
EXAM: Chest, single view. HISTORY: Postbiopsy pain with breathing. COMPARISON: CT obtained on the same date. FINDINGS: A frontal view of the chest is obtained. There is a tiny superior lateral right pneumothora x. This is unchanged compared to the CT performed earlier on the same date. There is nodular opacity within the superolateral right upper lobe due to the combination of a recently biopsied of concern an d surrounding postbiopsy changes. There are additional small pulmonary nodules which are better lizzie cterized on the prior CT. There is no pleural effusion. The heart is normal in size. There is a cardi ac pacemaker defibrillator in expected position. IMPRESSION: 1. Tiny right pneumothorax, stable compared to a CT performed earlier on the same date. 2. Small right upper lobe pulmonary nodule with surrounding post plasty changes.. There are additiona l small nodules within both lungs which are better characterized on the prior CT. Findings were discussed with Dr. Arora at 1245 hours on 05/25/2021. Electronically signed by: Peyton Pizano MD (05/25/2021 1:18 PM) [id number]
--- NOTE | 2021-05-25 13:54 | NUR ---
Pt does not complain of pain or discomfort at this time. Dr. Arora at bedside to discuss repeat chest x-ray. ROSALVA ferro'd. Pt home with family in private vehicle. Pt ambulated and tolerated PO.
--- NOTE | 2021-05-25 14:43 | RAD ---
EXAM: Chest, single view. HISTORY: Postbiopsy pneumothorax. COMPARISON: 05/25/2021 FINDINGS: A frontal view the chest is obtained. The recently demonstrated tiny lateral right pneumoth orax is not well seen on this exam. There is a small amount right chest wall soft tissue gas is stabl e in appearance. There is stable nodular opacity within the right upper lobe. There are few additiona l subtle areas of nodularity within both lungs. There is no consolidation. There is no pleural effusi on. There is a cardiac pacemaker defibrillator in expected position. IMPRESSION: 1. No convincing significant residual pneumothorax status post biopsy. There is a stable small amount of soft tissue emphysema along the right chest wall. 2. Nodular opacity within the right upper lobe due to the recently biopsied lesion of concern and pos t biopsy changes. There are additional nodules within both lungs which are better characterized on th e prior CT. Electronically signed by: Peyton Pizano MD (05/25/2021 2:41 PM) [id number]
--- NOTE | 2021-05-26 17:07 | PATHOLOGY ---
[facility] Accession Number: [id number] . 01 Material submitted: . lung - RT UPPER LOBE LUNG MASS. Modifiers: right, upper, LOBE . 01 Clinical history: . RIGHT UPPER LOBE RIGHT LUNG MASS . 02 Diagnosis: Lung, fibroadipose, and skeletal muscle tissue, right upper lobe lung mass, needle biopsy: - No diagnostic abnormalities. See comment. . (JPM:mm; 05/26/2021) [facility] 05/26/2021 1032 Local . 02 Comment: Sections of the right upper lobe lung mass biopsy reveal multiple segments of skeletal muscle, fibroadipose, and lung tissue. The lung tissue shows partial atelectasis. The alveolar septa, in general, appear delicate. Air spaces focally contain a few pigmented pulmonary macrophages and red blood cells. I suspect that the targeted lesion is not present in the biopsy material. There is no evidence of malignancy. . (JPM:mml; 05/26/2021) . 02 Electronically signed: . Herman Arceo MD, Pathologist NPI- [id number] . 01 Gross description: . The specimen is received in formalin designated "Sarah Mathur, RT lung mass", the requisition additionally designates the specimen as "RT upper lobe lung mass". The specimen consists of multiple pale boateng soft irregular tissues aggregating 0.3 x 0.3 x < 0.1 cm which are filtered and submitted in toto in A1. (TELLER; 05/25/2021) DKA/DKA 05/25/2021 1517 Local . 02 Pathologist provided ICD-10: K29.50 . 02 CPT . 428210, [id number] Specimen Comment: A courtesy copy of this report has been sent to [phone], [phone] Specimen Comment: [id number] Specimen Comment: Report sent to / DR COTTRELL [facility]formed at: [facility] [address] [id number] MD Gerson Rodriguez MD Phone: [phone] [facility]formed at: [facility] [address] [place], [place] [id number] MD Herman Arceo MD Phone: [phone]
--- NOTE | 2021-05-27 11:19 | RAD ---
CT-guided lung biopsy 05/27/2021 9:14 AM Dictation: Multiple bilateral subcentimeter lung nodules Discussion: The procedure was explained in its entirety to the patient or the patients designated insurance verification representative by a member of the treatment team, including a discussion of the risks, benefits and commonly accepted alternatives to the procedure, as well as the expected consequences of no therapy whatsoever. Discussion of the risks included, but was not limited to, those that are most frequent and those that are rare but possibly severe or life-threatening, as well as the possibility of unforeseen complications. Specifically discussed with this patient was pneumothorax, hemoptysis, and the small size of her pulmonary nodules in the transfer nondiagnostic biopsy. All elements of maximal sterile barrier technique including the use of a cap, mask, sterile gown, sterile gloves, large sterile sheet, appropriate hand hygiene, and 2% chlorhexidine for cutaneous antisepsis (or acceptable alternative antiseptic per current guidelines) were followed for this procedure. CT imaging of the chest was performed demonstrating an approximately 8 mm nodule right upper lung, which is the largest targetable nodule. The anterior chest was prepped and draped using sterile barrier technique. 1% lidocaine was administered for local anesthesia. Under intermittent CT guidance a 17-gauge needle was advanced to the periphery of the nodule. Core biopsy samples were obtained. Tiny post biopsy pneumothorax is noted, which was stable over several minutes in the CT scanner. No enlarging pneumothorax is identified on subsequent serial radiographs. Sterile dressings were applied. Procedures performed under conscious sedation including continuous cardiopulmonary monitoring via dedicated sedation nurse. Ihya-hu-ljot sedation time: 40 minutes. IMPRESSION: CT-guided biopsy, right upper lobe pulmonary nodule PQRS Compliance Statement: One or more of the following individualized dose reduction techniques were utilized for this examination: 1. Automated exposure control 2. Adjustment of the mA and/or kV according to patient size 3. Use of iterative reconstruction technique
--- NOTE | 2021-06-09 09:02 | PDOC1 ---
History and Physical Date of Procedure Date of Admission 05.25.21 Procedure Procedure Lung nodule biopsy, RUL Indication Indication RUL nodule History of Present Illness Reason for Visit Same Past Medical History Past Medical History COPD Cardiovascular: CHF Pulmonary: COPD Current Medications Current Medications Current Medications Lidocaine HCl (Buffered Lidocaine 1%) 3 ml STK-MED ONCE .ROUTE ; Start 05/25/21 at 09:22; Stop 05/25/21 at 09:22; Status DC Lidocaine HCl (Buffered Lidocaine 1%) 3 ml 1X ONCE IJ Last administered on 05/25/21at 10:17; Start 05/25/21 at 09:45; Stop 05/25/21 at 09:46; Status DC Midazolam HCl (Versed) 2 mg 1X ONCE IV Last administered on 05/25/21at 10:31; Start 05/25/21 at 09:45; Stop 05/25/21 at 09:46; Status DC Fentanyl Citrate (Fentanyl 2ml Vial) 100 mcg 1X ONCE IV Last administered on 05/25/21at 10:40; Start 05/25/21 at 09:45; Stop 05/25/21 at 09:46; Status DC Midazolam HCl (Versed) 2 mg STK-MED ONCE .ROUTE ; Start 05/25/21 at 09:36; Stop 05/25/21 at 09:37; Status DC Fentanyl Citrate (Fentanyl 2ml Vial) 100 mcg STK-MED ONCE .ROUTE ; Start 05/25/21 at 09:37; Stop 05/25/21 at 09:37; Status DC Lidocaine HCl (Buffered Lidocaine 1%) 3 ml STK-MED ONCE .ROUTE ; Start 05/25/21 at 10:29; Stop 05/25/21 at 10:29; Status DC Ketorolac Tromethamine (Toradol 15mg Vial) 15 mg 1X ONCE IVP Last administered on 05/25/21at 12:45; Start 05/25/21 at 12:30; Stop 05/25/21 at 12:33; Status DC Acetaminophen (Tylenol) 325 mg STK-MED ONCE PO ; Start 05/25/21 at 12:45; Stop 05/25/21 at 12:45; Status DC Acetaminophen (Tylenol) 650 mg PRN Q6HRS PRN PO MILD PAIN / TEMP > 100.3'F Last administered on 05/25/21at 12:52; Start 05/25/21 at 13:00; Stop 05/25/21 at 13:56; Status DC Active Scripts Active Eliquis (Apixaban) 5 Mg Tablet 5 Mg PO BID 30 Days Entresto 24 mg-26 mg Tablet (Sacubitril/Valsartan) 1 Each Tablet 1 Each PO BID 3 0 Days Duoneb 0.5-3(2.5) Mg/3 Ml (Albuterol/Ipratropium) 3 Ml Ampul.neb 3 Ml NEB Q4HRS 14 Days Reported Methocarbamol 500 Mg Tablet 1,000 Mg PO BID Spironolactone 25 Mg Tablet 25 Mg PO DAILY Metoprolol Succinate ( Xl ) (Metoprolol Succinate) 25 Mg Tab.er.24h 25 Mg PO DAILY Voltaren Arthritis Pain (Diclofenac Sodium) 20 Gm Gel..gram. 20 Gm TP PRN PRN Gabapentin (Gabapentin) 100 Mg Capsule 100 Mg PO TID Alendronate Sodium 70 Mg Tablet 1 Tab PO WEEKLY Allopurinol 300 Mg Tablet 1 Tab PO DAILY Trelegy Ellipta 100-62.5-25 (Fluticasone/Umeclidin/Vilanter) 1 Each Blst.w.dev 1 Each IH DAILY Prilosec Otc (Omeprazole Magnesium) 20 Mg Tablet.dr 40 Mg PO DAILY K-Tab ER (Potassium Chloride) 20 Meq Tablet.er 20 Meq PO DAILY Montelukast Sodium Tablet (Montelukast Sodium) 10 Mg Tablet 10 Mg PO HS Levocetirizine Dihydrochloride 5 Mg Tablet 5 Mg PO DAILY Amitriptyline Hcl 25 Mg Tablet 25 Mg PO QHS Tylenol (Acetaminophen) 325 Mg Tablet 650 Mg PO PRN Q4HRS PRN Aspir 81 (Aspirin) 81 Mg Tablet.dr 1 Tab PO DAILY Vitamin D3 (Cholecalciferol (Vitamin D3)) 1,000 Unit Tablet 1 Tab PO DAILY Torsemide 20 Mg Tablet 2 Tab PO DAILY Daliresp (Roflumilast) 500 Mcg Tablet 1 Tab PO DAILY Atorvastatin Calcium 20 Mg Tablet 20 Mg PO HS Requip (Ropinirole Hcl) 1 Mg Tablet 3 Tab PO QHS Proair Hfa Inhaler (Albuterol Sulfate) 8.5 Gm Hfa.aer.ad 1 Puff INH PRN Q6HRS PRN Levothyroxine Sodium 50 Mcg Tablet 1 Tab PO DAILY Allergies Allergies: Coded Allergies: ibuprofen (Verified Allergy, Severe, Swelling, 08/09/18) naproxen (Verified Allergy, Severe, Shortness of Air, 10/25/18) tolerates asa piperacillin (Verified Allergy, Severe, Swelling, 11/17/19) Tolerated cefepime tazobactam (Verified Allergy, Severe, Swelling, 08/09/18) Physical Exam Lungs: Clear to auscultation Heart: Regular rate Psych/Mental Status: Mental status NL Diagnostic Data/Imaging Images FROM MOST RECENT CT 21 : Lungs and pleura: Numerous round pulmonary nodules throughout both lungs are unchanged. The largest is a 8 mm pulmonary nodule in the right upper lobe. There are multiple other bilateral pulmonary nodules measuring 5 to 7 mm and similar smaller. Mild emphysema. No pleural effusion. There is airway wall thickening. Assessment Assessment RUL NODULE Plan Plan CT Guided Biopsy TREE COTTRELL MD Jun 09, 2021 09:02
== END 2021-05-25 13:56 | disposition home or self-care (01) ==
LOC: INTRAD 08:28
PROVIDERS: ATTEND Internal Medicine Critical Care Medicine
DX: R91.8 Other nonspecific abnormal finding of lung field (principal); K29.50 Unspecified chronic gastritis without bleeding; J93.9 Pneumothorax, unspecified; R91.1 Solitary pulmonary nodule; J44.9 Chronic obstructive pulmonary disease, unspecified; I11.0 Hypertensive heart disease with heart failure; I50.9 Heart failure, unspecified; I25.10 Atherosclerotic heart disease of native coronary artery without angina pectoris; I48.91 Unspecified atrial fibrillation; E78.00 Pure hypercholesterolemia, unspecified; E03.9 Hypothyroidism, unspecified; E11.9 Type 2 diabetes mellitus without complications; K21.9 Gastro-esophageal reflux disease without esophagitis; M19.90 Unspecified osteoarthritis, unspecified site; M81.0 Age-related osteoporosis without current pathological fracture; Z90.49 Acquired absence of other specified parts of digestive tract; Z90.710 Acquired absence of both cervix and uterus; Z98.890 Other specified postprocedural states; Z79.899 Other long term (current) drug therapy; Z87.891 Personal history of nicotine dependence; Z88.8 Allergy status to other drugs, medicaments and biological substances
CPT/HCPCS: 32408; 71045; 88305; 88342; 99152; 99153; J1885; J2250; J3010; J3490

== ENCOUNTER 2021-07-20 08:58 | Outpatient (CLI) | payer MEDICARE, OTHER ==
[~2021-07-20] VITALS: Ht 152.4 cm; Wt 63.6 kg
[2021-07-20] VITALS (20 sets, daily range): BP systolic 81–112; BP diastolic 34–52
[~2021-07-20 08:58] MED LIST changes: +AMIO200T53 PO; -AMIO200T6 PO; +LIDOCAINE 1% Multi-Dose 20 ML VIAL. ONE; +METH-561 PO
[2021-07-20 09:44] LABS: HEMATOCRIT 21.7 % (36.0-47.0); RED BLOOD COUNT 2.34 x10^6/uL (3.50-5.40); RED CELL DISTRIBUTION WIDTH 18.4 % (11.5-14.5); WHITE BLOOD COUNT 11.8 x10^3/uL (4.0-11.0)
[2021-07-20 09:47] LABS: HEMOGLOBIN 6.7 g/dL (12.0-15.5)
[2021-07-20 10:03] LABS: CALCIUM 9.1 mg/dL (8.5-10.1); CREATININE 1.4 mg/dL (0.6-1.0); GFR 37.5
[2021-07-20] MEDS ORDERED: MIDAZOLAM HCL/PF 2 MG/2 ML VIAL. ONE (10:35)
[2021-07-20] MEDS ORDERED: fentaNYL PF VIAL 100 MCG/2 ML VIAL ONE (10:35)
[2021-07-20] MEDS ORDERED: MIDAZOLAM HCL/PF 2 MG/2 ML VIAL. IV ONE (11:00)
[2021-07-20] MEDS ORDERED: fentaNYL PF VIAL 100 MCG/2 ML VIAL IV ONE (11:00)
[2021-07-20] MEDS ORDERED: LIDOCAINE 1% Multi-Dose 20 ML VIAL. INJ ONE (11:00)
--- NOTE | 2021-07-20 11:30 | PDOC ---
MODERATE SEDATION ASSESSMENT RISKS/ALTERNATIVES Risks/Alternatives Risks and alternatives of this type of sedation and procedure discussed with: RISK/ALTERNATIVES: Patient H & P ON CHART H & P H & P on chart and reviewed for co-morbid conditions and appropriate labs. H&P ON CHART: Yes STATUS PREG STATUS ASSESSED: N/A MEDS/ALLERGIES REVIEWED Meds/Allergies Reviewed Medications and Allergies including time and route of recently administered narcotics and sedatives. MEDS/ALLERGIES REVIEWED: Yes ASA RATING ASA RATING: III AIRWAY ASSESSMENT Airway Assessment Airway patency, oral function limitations, presence of caps, crowns, dentures, partials, and ability to extend neck assessed. AIRWAY ASSESSMENT: Yes MALLAMPATI SCORE MALLAMPATI SCORE: II PRE-SEDATION ASSESSMENT PRE-SEDATION ASSESSMENT: Yes SAMM CRUZ MD Jul 20, 2021 11:30
--- NOTE | 2021-07-20 12:37 | CARD ---
MR#: [id number] Date of Study: 07/20/2021 Ordering Physician: SAMM DRISCOLL, Referring Physician: SAMM DRISCOLL Tech: RT Rosalba(R) APPROVED REPORT Technologist: Teena Rodriguez RT(R) Nurse: Andreina Jones RN Procedure(s) performed: Right heart catheterization via right internal jugular venous access Fluoro time: 0.8 min Dose: 0.5 Gycm2 Mod Sed: 30 min INDICATION The indication(s) include : Refractory dyspnea on minor exertion. CASE TECHNIQUE IV conscious sedation was used throughout procedure with appropriate monitoring and was performed in the presence of a registered nurse who was an independent trained observer other than the physician p erforming the procedure. During this case, Fluoroscopy and low osmolar contrast were used for imaging . Specimen(s) Removed: No Estimated Blood loss: 20 cc's. PROCEDURE NARRATIVE After explaining the risk, benefits and alternative options, informed consent was obtained from patie nt. Patient was brought to cardiac [employer] and right neck was prepped and draped in the usual fashi on. 10 cc of 2% lidocaine was infiltrated into the skin and subcutaneous tissues for local anesthesi a. Vascular ultrasound was used to obtain access in the right internal jugular vein and a 5 Spanish s nikki was inserted. A 5 Spanish Lindsay-Rodney catheter was then advanced under fluoroscopic guidance and intracardiac pressures, oxygen saturations and cardiac output by Mago method measured. Patient ginette ated the procedure well. Hemostasis was achieved using manual compression. There were no immediate complications FINDINGS 1. Intracardiac pressures: Mean right atrial pressure 12 mmHg, right ventricular pressure 35/10 mmHg , pulmonary artery pressure 36/14 mmHg with a mean PA pressure of 23 mmHg and mean pulmonary capillar y wedge pressure of 18 mmHg. Slightly elevated right and left-sided filling pressures without any si gnificant pulmonary hypertension. 2. Oxygen saturations: Right atrium 51.1, pulmonary artery 50.5. No evidence of intracardiac shunt. 3. Cardiac output by Mago method 3.5 L/min. Conclusion 1. Slightly elevated right and left-sided filling pressures without any significant pulmonary hypert ension. 2. No evidence of intracardiac shunt. Recommendations Medical Therapy Signed by : Samm Driscoll, Electronically Approved : 07/20/2021 12:37:10
[2021-07-20] MEDS ORDERED: CLOP75TA PO (13:08)
--- NOTE | 2021-07-20 14:30 | NUR ---
Patient's PIV removed. VS stable-- patient state's her SBP is usually around 80-90 when resting. See VS in EMR. 1 U PRBC transfused. RN advised patient to see PCP regarding chronic anemia and low HgB. Instructions provided on site care, sedation. Patient and verbalized understanding. All belongings taken w/ patient at time of d/c.
== END 2021-07-20 14:40 | disposition home or self-care (01) ==
LOC: CCL 08:58
PROVIDERS: ATTEND Internal Medicine Cardiovascular Disease
DX: R06.09 Other forms of dyspnea (principal); I25.10 Atherosclerotic heart disease of native coronary artery without angina pectoris; I11.0 Hypertensive heart disease with heart failure; I50.9 Heart failure, unspecified; I48.91 Unspecified atrial fibrillation; E78.00 Pure hypercholesterolemia, unspecified; J44.9 Chronic obstructive pulmonary disease, unspecified; K21.9 Gastro-esophageal reflux disease without esophagitis; M19.90 Unspecified osteoarthritis, unspecified site; E11.9 Type 2 diabetes mellitus without complications; E03.9 Hypothyroidism, unspecified; Z90.49 Acquired absence of other specified parts of digestive tract; Z98.890 Other specified postprocedural states; Z79.899 Other long term (current) drug therapy; Z79.82 Long term (current) use of aspirin; Z79.84 Long term (current) use of oral hypoglycemic drugs; Z87.891 Personal history of nicotine dependence; Z88.8 Allergy status to other drugs, medicaments and biological substances; Z82.49 Family history of ischemic heart disease and other diseases of the circulatory system; Z83.3 Family history of diabetes mellitus
CPT/HCPCS: 36415; 76937; 80048; 85027; 86850; 86900; 86901; 86920; 93451; 99152; 99153; C1773; C1894; J1644; J2250; J3010; J3490; P9016

== ENCOUNTER 2021-07-25 22:04 | Inpatient (IN) | payer MEDICARE, OTHER ==
[~2021-07-25] VITALS: Ht 152.4 cm; Wt 67.0 kg
[~2021-07-25 22:04] MED LIST changes: +CLOP75TA PO; -LIDOCAINE 1% Multi-Dose 20 ML VIAL. ONE
--- NOTE | 2021-07-25 22:19 | PHYS DOC ---
Past Medical History Past Medical History: CAD, CHF, COPD, Diabetes-Type II, High Cholesterol, Hypertension, Hypothyroid Past Surgical History: Pacemaker, Other Additional Past Surgical Histo: left shoulder; pacemaker/defibrillator Smoking Status: Former Smoker Alcohol Use: None Drug Use: None General Adult EDM: Chief Complaint: SHORTNESS OF BREATH HPI: HPI: 66-year-old female on 3 L of oxygen at all times with history of COPD, former smoking, CHF presents the emergency department complaining of shortness of breath and fatigue that started this morning. She reports when she woke up this morning she felt fatigued tired and not her usual self. She admits to feeling some wheezing and shortness of breath throughout the day with gradual onset. She denies any hemoptysis with her cough. She had a recent watchman procedure 3 weeks ago. She admits to swelling in both legs that is mild. She has a history of a PE in the past after being admitted to the hospital. The patient denies nausea, vomiting, fever, chills, chest pain, abdominal pain, urinary symptoms, or any other complaints. She is vaccinated for Covid and has had no recent exposure to Covid positive people. Review of Systems: Review of Systems: Constitutional: Negative except what was mentioned in HPI. Eyes: Negative except what was mentioned in HPI. HENT: Negative except what was mentioned in HPI. Respiratory: Negative except what was mentioned in HPI. Cardiovascular: Negative except what was mentioned in HPI. GI: Negative except what was mentioned in HPI. : Negative except what was mentioned in HPI. Musculoskeletal: Negative except what was mentioned in HPI. Integument: Negative except what was mentioned in HPI. Neurologic: Negative except what was mentioned in HPI. Heart Score: C/O Chest Pain: No Family History: Family History: non contributory Allergies: Allergies: Allergies Coded Allergies Type Severity Reaction Last Updated Verified ibuprofen Allergy Severe Swelling 08/09/18 Yes naproxen Allergy Severe Shortness of Air 10/25/18 Yes piperacillin Allergy Severe Swelling 11/17/19 Yes tazobactam Allergy Severe Swelling 08/09/18 Yes Physical Exam: PE: Constitutional: No acute distress, non-toxic appearance. Speaks in short sentences HENT: Atraumatic, bilateral external ears normal, nose normal. Eyes: PERRLA, EOMI, conjunctiva normal, no discharge. Neck: Normal range of motion, supple, no stridor. Cardiovascular: Heart rate regular rhythm. 2+ radial pulses Lungs & Thorax: No respiratory distress, symmetrical expansion. Wheezes appreciated bilateral lung connell. Abdomen: Soft, no tenderness Skin: Warm, dry. Extremities: No tenderness, no cyanosis, ROM intact, bilateral 1+ edema. Neurologic: Alert and oriented X 3, normal motor function, normal sensory function, no focal deficits noted. GCS 15. Psychologic: Affect normal, judgment normal, mood normal. Current Patient Data: Labs: Laboratory Tests Test 07/25/21 22:35 07/25/21 22:50 White Blood Count 10.2 x10^3/uL (4.0-11.0) Red Blood Count 2.74 x10^6/uL (3.50-5.40) Hemoglobin 8.3 g/dL (12.0-15.5) Hematocrit 25.1 % (36.0-47.0) Mean Corpuscular Volume 92 fL (79-100) Mean Corpuscular Hemoglobin 30 pg (25-35) Mean Corpuscular Hemoglobin Concent 33 g/dL (31-37) Red Cell Distribution Width 17.7 % (11.5-14.5) Platelet Count 399 x10^3/uL (140-400) Neutrophils (%) (Auto) 78 % (31-73) Lymphocytes (%) (Auto) 11 % (24-48) Monocytes (%) (Auto) 7 % (0-9) Eosinophils (%) (Auto) 5 % (0-3) Basophils (%) (Auto) 1 % (0-3) Neutrophils # (Auto) 7.9 x10^3/uL (1.8-7.7) Lymphocytes # (Auto) 1.1 x10^3/uL (1.0-4.8) Monocytes # (Auto) 0.7 x10^3/uL (0.0-1.1) Eosinophils # (Auto) 0.5 x10^3/uL (0.0-0.7) Basophils # (Auto) 0.1 x10^3/uL (0.0-0.2) Sodium Level 141 mmol/L (136-145) Potassium Level 4.7 mmol/L (3.5-5.1) Chloride Level 105 mmol/L (98-107) Carbon Dioxide Level 28 mmol/L (21-32) Anion Gap 8 (6-14) Blood Urea Nitrogen 11 mg/dL (7-20) Creatinine 1.1 mg/dL (0.6-1.0) Estimated GFR (Cockcroft-Gault) 49.5 Glucose Level 128 mg/dL (70-99) Calcium Level 8.2 mg/dL (8.5-10.1) Troponin I Quantitative < 0.017 ng/mL (0.000-0.055) PF-Mrr-T-Type Natriuretic Peptide 791 pg/mL (0-124) Influenza Type A Antigen Negative (NEGATIVE) Influenza Type B Antigen Negative (NEGATIVE) SARS-CoV-2 Antigen (Rapid) Negative (NEGATIVE) Vital Signs: Vital Signs Date Time Temp Pulse Resp B/P (MAP) Pulse Ox O2 Delivery O2 Flow Rate FiO2 07/25/21 23:20 99 Nasal Cannula 2.0 07/25/21 22:10 99.3 98 24 116/56 (76) 95 Room Air 99.3 EKG: EKG: Paced rhythm rate of 88, no ST-T wave changes. Impression: Normal EKG; paced rhythm. Interpreted by meMercy D.O. Radiology/Procedures: Radiology/Procedures: PROCEDURE: PORTABLE CHEST 1V EXAM: AP View of the chest DATE: 07/25/2021 10:23 PM INDICATION: Reason: shortness of air / Spl. Instructions: / History: COMPARISON: 05/25/2021 FINDINGS: The heart is not enlarged. Generator pack obscures a portion of the left chest with leads projecting over the right atrium and both ventricles. Interstitial prominence. No lobar consolidation. No pleural effusion or pneumothorax. IMPRESSION: Interstitial prominence, possibly atypical infectious or inflammatory process. Electronically signed by: Bashir Pandya MD (07/25/2021 10:51 PM) PROCEDURE: CT ANGIOGRAPHY CHEST Examination: CT angiography chest with IV contrast HISTORY: History of pulmonary embolism, shortness of breath COMPARISON: CT chest from 04/03/2021 Technique: Axial CT angiographic images of chest were performed with IV contrast. Coronal and sagittal 3-D MIP reformats are performed. Exposure: One or more of the following individualized dose reduction techniques were utilized for this examination: 1. Automated exposure control 2. Adjustment of the mA and/or kV according to patient size 3. Use of iterative reconstruction technique. FINDINGS: Central airways are patent. Mild cardiomegaly. The caliber of the aorta grossly appears unremarkable. There is no evidence of filling defect identified in the main pulmonary arterial trunk and right and left main pulmonary arteries and the visualized lobar, segmental branches of the pulmonary arteries. Moderate bilateral lung emphysematous changes. There are multiple scattered bilateral lung nodules with the largest measuring 1 cm in the right upper lobe of the lung increased in size compared to prior exam with the largest measuring 7.5 mm. The smaller nodules appears slightly increased in size. Mild decreased attenuation noted in the liver likely hepatic steatosis. The spleen, adrenals grossly appears unremarkable. Moderate degenerative changes thoracic spine. IMPRESSION: 1. No evidence of pulmonary embolism. 2. Multiple scattered bilateral lung nodules with the largest measuring 1 cm in the right upper lobe of the lung increased in size compared to prior exam with the largest measuring 7.5 mm. The smaller nodules appears slightly increased in size, concerning for metastasis. 3. Moderate bilateral lung emphysematous changes. Electronically signed by: Cristian Rob MD (07/26/2021 1:29 AM) Course & Med Decision Making: Course & Med Decision Making Patient continues to have wheezing, will order additional albuterol treatments and admit to the hospital. I discussed the patient CT scan and other findings with the patient who has a known history of lung nodules and is aware of the changes described in the CTA. We will admit the patient to the hospital to Dr. Lewis. 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 Casillas and she is well-known to the pulmonology service here at [place]. Departure Departure Impression: Primary Impression: COPD exacerbation Disposition: 09 ADMITTED INPATIENT (med/surg) Admitting Physician: ROYCE Nichols) Condition: STABLE Referrals: ANGIE WILLINGHAM MD (PCP) MERCY KAUR DO Jul 25, 2021 22:19
[2021-07-25] MEDS ORDERED: predniSONE 10 MG TABLET PO ONE (22:30)
[2021-07-25] MEDS ORDERED: IPRATRPIUM/ALBUTEROL 0.5/2.5MG 3 ML NEBU. NEB ONE (22:30)
[2021-07-25] MEDS ORDERED: ALBUTEROL SULFATE 2.5 MG/3 ML NEBU. NEB ONE (22:30)
--- NOTE | 2021-07-25 22:53 | RAD ---
EXAM: AP View of the chest DATE: 07/25/2021 10:23 PM INDICATION: Reason: shortness of air / Spl. Instructions: / History: COMPARISON: 05/25/2021 FINDINGS: The heart is not enlarged. Generator pack obscures a portion of the left chest with leads projecting over the right atrium and both ventricles. Interstitial prominence. No lobar consolidation. No pleural effusion or pneumothorax. IMPRESSION: Interstitial prominence, possibly atypical infectious or inflammatory process. Electronically signed by: Bashir Pandya MD (07/25/2021 10:51 PM) NATACHA
[2021-07-25 22:56] LABS: BASO # 0.1 x10^3/uL (0.0-0.2); BASO % 1 % (0-3); EOS # 0.5 x10^3/uL (0.0-0.7); EOS % 5 % (0-3); HEMATOCRIT 25.1 % (36.0-47.0); HEMOGLOBIN 8.3 g/dL (12.0-15.5); LYMPH # 1.1 x10^3/uL (1.0-4.8); LYMPH % 11 % (24-48); MEAN CORPUSCULAR HEMOGLOBIN 30 pg (25-35); MEAN CORPUSCULAR HGB CONC 33 g/dL (31-37); MEAN CORPUSCULAR VOLUME 92 fL (79-100); MONO # 0.7 x10^3/uL (0.0-1.1); MONO % 7 % (0-9); NEUT # 7.9 x10^3/uL (1.8-7.7); NEUT % 78 % (31-73); PLATELET COUNT 399 x10^3/uL (140-400); RED BLOOD COUNT 2.74 x10^6/uL (3.50-5.40); RED CELL DISTRIBUTION WIDTH 17.7 % (11.5-14.5); WHITE BLOOD COUNT 10.2 x10^3/uL (4.0-11.0)
[2021-07-25 23:40] LABS: CALCIUM 8.2 mg/dL (8.5-10.1); CREATININE 1.1 mg/dL (0.6-1.0); GFR 49.5; POTASSIUM 4.7 mmol/L (3.5-5.1)
[2021-07-26] LABS: INFLUENZA A PATIENT NEGATIVE (NEGATIVE); INFLUENZA B PATIENT NEGATIVE (NEGATIVE)
[2021-07-26] MEDS ORDERED: CONTRAST GIVEN. MC PRN (00:30)
[2021-07-26] MEDS ORDERED: IOHEXOL 350 MG/ML 100 ML VIAL. IV ONE (01:00)
--- NOTE | 2021-07-26 01:00 | EKG ---
[facility] [address] [place] [address] Test Date: 2021-07-25 Test Time: 22:52:48 Pat Name: JAYCOB CRAWFORD Department: Room: Gender: F Chip Tuner: : 1955 Requested By: MERCY KAUR Order Number: [id number] Reading MD: Hair Garza MD Measurements Intervals Bowman Rate: 88 P: 90 AR: 138 QRS: -11 QRSD: 130 T: 146 QT: 400 QTc: 488 Interpretive Statements SINUS RHYTHM V-PACED Electronically Signed On 07-27-2021 8:50:51 CDT by Hair Garza MD
--- NOTE | 2021-07-26 01:31 | RAD ---
Examination: CT angiography chest with IV contrast HISTORY: History of pulmonary embolism, shortness of breath COMPARISON: CT chest from 04/03/2021 Technique: Axial CT angiographic images of chest were performed with IV contrast. Coronal and sagitta l 3-D MIP reformats are performed. Exposure: One or more of the following individualized dose reduction techniques were utilized for thi s examination: 1. Automated exposure control 2. Adjustment of the mA and/or kV according to patient size 3. Use of iterative reconstruction technique. FINDINGS: Central airways are patent. Mild cardiomegaly. The caliber of the aorta grossly appears unremarkable. There is no evidence of filling defect identified in the main pulmonary arterial trunk and right and left main pulmonary arteries and the visualized lobar, segmental branches of the pulmonary arteries. Moderate bilateral lung emphysematous changes. There are multiple scattered bilateral lung nodules w ith the largest measuring 1 cm in the right upper lobe of the lung increased in size compared to prio r exam with the largest measuring 7.5 mm. The smaller nodules appears slightly increased in size. Mil d decreased attenuation noted in the liver likely hepatic steatosis. The spleen, adrenals grossly rosa elena ears unremarkable. Moderate degenerative changes thoracic spine. IMPRESSION: 1. No evidence of pulmonary embolism. 2. Multiple scattered bilateral lung nodules with the largest measuring 1 cm in the right upper lobe of the lung increased in size compared to prior exam with the largest measuring 7.5 mm. The smaller nodules appears slightly increased in size, concerning for metastasis. 3. Moderate bilateral lung emphysematous changes. Electronically signed by: Cristian Rob MD (07/26/2021 1:29 AM) [id number]
[2021-07-26] MEDS ORDERED: MORPHINE SULFATE 4 MG/ML INJ. IVP PRN (01:45)
[2021-07-26] MEDS ORDERED: ACETAMINOPHEN 325 MG TABLET. PO PRN (01:45)
[2021-07-26] MEDS ORDERED: ONDANSETRON PF 4 MG/2 ML VIAL. IVP PRN (01:45)
[2021-07-26] MEDS ORDERED: ALBUTEROL SULFATE 2.5 MG/3 ML NEBU. NEB ONE (02:00)
[2021-07-26 03:00] VITALS: BP 110/53
[2021-07-26] MEDS ORDERED: SUCR1TAB PO (03:13)
[2021-07-26] MEDS ORDERED: FERR325T14 PO (03:13)
[2021-07-26 07:33] VITALS: BP 116/56
[2021-07-26] MEDS ORDERED: methylPREDNISolone SOD SUCC PF 125 MG/2 ML VIAL. IV ONE (10:15)
--- NOTE | 2021-07-26 10:20 | PDOC ---
PULMONARY PROGRESS NOTES DATE: 07/26/21 TIME: 10:13 Vitals Vital Signs Date Time Temp Pulse Resp B/P (MAP) Pulse Ox O2 Delivery O2 Flow Rate FiO2 07/26/21 08:00 Nasal Cannula 3.0 07/26/21 07:33 97.8 61 16 116/56 (76) 95 97.8 General: Alert, Oriented X4, No acute distress Lungs: Wheezing, Crackles Cardiovascular: S1, S2 Abdomen: Soft, Non-tender Extremities: No Edema Labs Laboratory Tests Test 07/25/21 22:35 07/25/21 22:50 07/26/21 01:30 07/26/21 04:40 White Blood Count 10.2 x10^3/uL (4.0-11.0) Red Blood Count 2.74 x10^6/uL (3.50-5.40) Hemoglobin 8.3 g/dL (12.0-15.5) Hematocrit 25.1 % (36.0-47.0) Mean Corpuscular Volume 92 fL (79-100) Mean Corpuscular Hemoglobin 30 pg (25-35) Mean Corpuscular Hemoglobin Concent 33 g/dL (31-37) Red Cell Distribution Width 17.7 % (11.5-14.5) Platelet Count 399 x10^3/uL (140-400) Neutrophils (%) (Auto) 78 % (31-73) Lymphocytes (%) (Auto) 11 % (24-48) Monocytes (%) (Auto) 7 % (0-9) Eosinophils (%) (Auto) 5 % (0-3) Basophils (%) (Auto) 1 % (0-3) Neutrophils # (Auto) 7.9 x10^3/uL (1.8-7.7) Lymphocytes # (Auto) 1.1 x10^3/uL (1.0-4.8) Monocytes # (Auto) 0.7 x10^3/uL (0.0-1.1) Eosinophils # (Auto) 0.5 x10^3/uL (0.0-0.7) Basophils # (Auto) 0.1 x10^3/uL (0.0-0.2) Sodium Level 141 mmol/L (136-145) Potassium Level 4.7 mmol/L (3.5-5.1) Chloride Level 105 mmol/L (98-107) Carbon Dioxide Level 28 mmol/L (21-32) Anion Gap 8 (6-14) Blood Urea Nitrogen 11 mg/dL (7-20) Creatinine 1.1 mg/dL (0.6-1.0) Estimated GFR (Cockcroft-Gault) 49.5 Glucose Level 128 mg/dL (70-99) Calcium Level 8.2 mg/dL (8.5-10.1) Troponin I Quantitative < 0.017 ng/mL (0.000-0.055) < 0.017 ng/mL (0.000-0.055) < 0.017 ng/mL (0.000-0.055) HY-Fbd-G-Type Natriuretic Peptide 791 pg/mL (0-124) Influenza Type A Antigen Negative (NEGATIVE) Influenza Type B Antigen Negative (NEGATIVE) SARS-CoV-2 Antigen (Rapid) Negative (NEGATIVE) Laboratory Tests Test 07/25/21 22:35 07/25/21 22:50 07/26/21 01:30 07/26/21 04:40 White Blood Count 10.2 x10^3/uL (4.0-11.0) Red Blood Count 2.74 x10^6/uL (3.50-5.40) Hemoglobin 8.3 g/dL (12.0-15.5) Hematocrit 25.1 % (36.0-47.0) Mean Corpuscular Volume 92 fL (79-100) Mean Corpuscular Hemoglobin 30 pg (25-35) Mean Corpuscular Hemoglobin Concent 33 g/dL (31-37) Red Cell Distribution Width 17.7 % (11.5-14.5) Platelet Count 399 x10^3/uL (140-400) Neutrophils (%) (Auto) 78 % (31-73) Lymphocytes (%) (Auto) 11 % (24-48) Monocytes (%) (Auto) 7 % (0-9) Eosinophils (%) (Auto) 5 % (0-3) Basophils (%) (Auto) 1 % (0-3) Neutrophils # (Auto) 7.9 x10^3/uL (1.8-7.7) Lymphocytes # (Auto) 1.1 x10^3/uL (1.0-4.8) Monocytes # (Auto) 0.7 x10^3/uL (0.0-1.1) Eosinophils # (Auto) 0.5 x10^3/uL (0.0-0.7) Basophils # (Auto) 0.1 x10^3/uL (0.0-0.2) Sodium Level 141 mmol/L (136-145) Potassium Level 4.7 mmol/L (3.5-5.1) Chloride Level 105 mmol/L (98-107) Carbon Dioxide Level 28 mmol/L (21-32) Anion Gap 8 (6-14) Blood Urea Nitrogen 11 mg/dL (7-20) Creatinine 1.1 mg/dL (0.6-1.0) Estimated GFR (Cockcroft-Gault) 49.5 Glucose Level 128 mg/dL (70-99) Calcium Level 8.2 mg/dL (8.5-10.1) Troponin I Quantitative < 0.017 ng/mL (0.000-0.055) < 0.017 ng/mL (0.000-0.055) < 0.017 ng/mL (0.000-0.055) CM-Itu-X-Type Natriuretic Peptide 791 pg/mL (0-124) Influenza Type A Antigen Negative (NEGATIVE) Influenza Type B Antigen Negative (NEGATIVE) SARS-CoV-2 Antigen (Rapid) Negative (NEGATIVE) Medications Active Scripts Medications Dose Route/Sig Max Daily Dose Days Date Category Ferrous Sulfate 325 Mg Tablet 1 Tab PO DAILY 07/26/21 Reported Sucralfate 1 Gm Tablet 1 Tab PO QID 07/26/21 Reported Clopidogrel (Clopidogrel Bisulfate) 75 Mg Tablet 1 Tab PO DAILY 07/20/21 Reported Methocarbamol 500 Mg Tablet 1,000 Mg PO PRN BID PRN 05/25/21 Reported Spironolactone 25 Mg Tablet 25 Mg PO DAILY 05/19/21 Reported Metoprolol Succinate ( Xl ) (Metoprolol Succinate) 25 Mg Tab.er.24h 25 Mg PO DAILY 05/19/21 Reported Voltaren Arthritis Pain (Diclofenac Sodium) 20 Gm Gel..gram. 20 Gm TP PRN PRN 05/19/21 Reported Entresto 24 mg-26 mg Tablet (Sacubitril/Valsartan) 1 Each Tablet 1 Each PO BID 30 11/19/20 Rx Gabapentin (Gabapentin) 100 Mg Capsule 100 Mg PO TID 10/18/20 Reported Alendronate Sodium 70 Mg Tablet 1 Tab PO WEEKLY 10/16/20 Reported Allopurinol 300 Mg Tablet 1 Tab PO DAILY 10/16/20 Reported Trelegy Ellipta 100-62.5-25 (Fluticasone/Umeclidin/Vilanter) 1 Each Blst.w.dev 1 Each IH DAILY 03/17/20 Reported Prilosec Otc (Omeprazole Magnesium) 20 Mg Tablet.dr 40 Mg PO DAILY 03/17/20 Reported Duoneb 0.5-3(2.5) Mg/3 Ml (Albuterol/Ipratropium) 3 Ml Ampul.neb 3 Ml NEB Q4HRS 14 10/22/19 Rx K-Tab ER (Potassium Chloride) 20 Meq Tablet.er 20 Meq PO DAILY 07/30/19 Reported Montelukast Sodium Tablet (Montelukast Sodium) 10 Mg Tablet 10 Mg PO HS 07/29/19 Reported Levocetirizine Dihydrochloride 5 Mg Tablet 5 Mg PO DAILY 07/29/19 Reported Amitriptyline Hcl 25 Mg Tablet 25 Mg PO QHS 07/29/19 Reported Aspir 81 (Aspirin) 81 Mg Tablet.dr 1 Tab PO DAILY 01/03/18 Reported Vitamin D3 (Cholecalciferol (Vitamin D3)) 1,000 Unit Tablet 1 Tab PO DAILY 01/02/18 Reported Torsemide 20 Mg Tablet 2 Tab PO DAILY 01/02/18 Reported Daliresp (Roflumilast) 500 Mcg Tablet 1 Tab PO DAILY 09/23/17 Reported Atorvastatin Calcium 20 Mg Tablet 20 Mg PO HS 09/23/17 Reported Requip (Ropinirole Hcl) 1 Mg Tablet 3 Tab PO QHS 09/23/17 Reported Proair Hfa Inhaler (Albuterol Sulfate) 8.5 Gm Hfa.aer.ad 1 Puff INH PRN Q6HRS PRN 09/23/17 Reported Levothyroxine Sodium 50 Mcg Tablet 1 Tab PO DAILY 09/23/17 Reported Impression . Full note dictated Acute exacerbation of COPD Enlarging right upper lobe nodule See order LETICIA FORTUNE MD Jul 26, 2021 10:20
[2021-07-26 10:46] VITALS: BP_SYST 170; BP_SYST 99; BP_DIAS 52; BP_DIAS 65
[2021-07-26] MEDS: IPRATRPIUM/ALBUTEROL 0.5/2.5MG 3 ML NEBU. NEB SCH ×3 (11:13→20:37)
[2021-07-26] MEDS: ENOXAPARIN 40 MG/0.4 ML SYRINGE. SQ SCH (11:20)
[2021-07-26] MEDS: DOXYCYCLINE HYCLATE 100 MG TABLET PO SCH ×2 (11:21→21:00)
[2021-07-26] MEDS ORDERED: ALBUTEROL SULFATE 2.5 MG/3 ML NEBU. INH PRN (13:00)
[2021-07-26] MEDS ORDERED: DICLOFENAC SODIUM 1% TOPICAL GEL 100GM TUBE. TP PRN (13:00)
[2021-07-26] MEDS ORDERED: METHOCARBAMOL 500 MG TABLET PO PRN (13:00)
[2021-07-26] MEDS: GABAPENTIN 100 MG CAPSULE. PO SCH ×2 (14:03→21:00)
[2021-07-26] MEDS: FERROUS SULFATE 325 MG TABLET. PO SCH (14:03)
[2021-07-26] MEDS: ROFLUMILAST 500 MCG TABLET. PO SCH (14:03)
[2021-07-26] MEDS: ASPIRIN ENTERIC COATED 81 MG TABLET.DR. PO SCH (14:03)
[2021-07-26] MEDS: LEVOTHYROXINE 50 MCG TABLET PO SCH (14:03)
[2021-07-26] MEDS: CLOPIDOGREL BISULFATE 75 MG TABLET PO SCH (14:03)
[2021-07-26] MEDS: CETIRIZINE HCL 10 MG TABLET. PO SCH (14:03)
[2021-07-26] MEDS: ALLOPURINOL 300 MG TABLET. PO SCH (14:03)
[2021-07-26] MEDS: POTASSIUM CHLORIDE 20 MEQ TABLET.ER. PO SCH (14:04)
[2021-07-26] MEDS: METOPROLOL SUCC 24HR ER 25 MG TAB.ER.24H. PO SCH (14:04)
[2021-07-26] MEDS: SUCRALFATE 1 GM TABLET. PO SCH ×3 (14:04→22:26)
[2021-07-26] MEDS: SPIRONOLACTONE 25 MG TABLET PO SCH (14:05)
[2021-07-26] MEDS: TORSEMIDE 20 MG TABLET. PO SCH (14:05)
[2021-07-26 15:00] VITALS: BP_SYST 103; BP_SYST 111; BP_DIAS 51; BP_DIAS 75
[2021-07-26] MEDS ORDERED: IPRATRPIUM/ALBUTEROL 0.5/2.5MG 3 ML NEBU. NEB SCH (16:00)
--- NOTE | 2021-07-26 18:56 | HP ---
DATE OF SERVICE: 07/26/2021 ADMIT DATE: 07/26/2021 CHIEF COMPLAINT: Shortness of breath. HISTORY OF PRESENT ILLNESS: The patient is a pleasant, older female who quit smoking 3 years ago. She does have near end-stage COPD and pulmonary nodules. She presented to the ER for evaluation of progressive shortness of breath. I have not seen her in the past year. She states she has been going to [facility] because she needed to see a photo mask cleaner there, to get an ablation done. Today, she has been examined on the medical floor where she is quite short of breath. She is on oxygen. I discussed the case with the ER doctor and reviewed the chart. We are going to be treating her for COPD protocol including consultation with Pulmonary Medicine, who has already seen her. PAST MEDICAL HISTORY: End-stage COPD, CAD, recent ablation, CHF, diabetes, hypertension, hyperlipidemia, hypothyroidism, AICD, left shoulder surgery, previous tobacco abuse but she quit 3 years ago, anxiety and depression. ALLERGIES: IBUPROFEN, NAPROXEN AND ZOSYN. FAMILY HISTORY: Diabetes. SOCIAL HISTORY: She quit smoking 3 years ago. No drinking or drugs. She is retired. MEDICATIONS: Reviewed, please refer to the MRAD. REVIEW OF SYSTEMS: GENERAL: No history of weight change, weakness or fevers. SKIN: No bruising, hair changes or rashes. EYES: No blurred, double or loss of vision. NOSE AND THROAT: No history of nosebleeds, hoarseness or sore throat. HEART: No history of palpitations, chest pain or shortness of breath on exertion. LUNGS: She complains of shortness of breath. GASTROINTESTINAL: Denies changes in appetite, nausea, vomiting, diarrhea or constipation. GENITOURINARY: No history of frequency, urgency, hesitancy or nocturia. NEUROLOGIC: Denies history of numbness, tingling, tremor or weakness. PSYCHIATRIC: No history of panic, anxiety or depression. ENDOCRINE: No history of heat or cold intolerance, polyuria or polydipsia. EXTREMITIES: Denies muscle weakness, joint pain, pain on walking or stiffness. PHYSICAL EXAMINATION: VITALS: Within normal limits and are stable. GENERAL: No apparent distress. Alert and oriented. HEENT: Normal cephalic atraumatic, external auditory canals are patent. Eyes: Extraocular muscles are intact, pupils are equally round and reactive to light and accommodation. MUSCULOSKELETAL: Well developed, well nourished, good range of motion. ENDOCRINE: No thyromegaly was palpated. LYMPHATICS: No cervical chain or axillary nodes were noted. HEMATOPOIETIC: No bruising. NECK: Supple, no JVD, no thyromegaly was noted. LUNGS: She has decreased breath sounds bilaterally with some slight crackles. HEART: RRR, S1, S2 present. Peripheral pulses intact, no obvious murmurs were noted. ABDOMEN: Soft, nontender. Positive bowel sounds no organomegaly, normal bowel sounds. EXTREMITIES: Without any cyanosis, clubbing, or edema. Pedal pulses intact, Homans sign is negative. NEUROLOGIC: Normal speech, normal tone. A and O x 3, moves all extremities, no obvious focal deficits. PSYCHIATRIC: Normal affect, normal mood. Stable. SKIN: No ulcerations or rashes, good skin turgor, no jaundice. VASCULAR: Good capillary refill, neurovascular bundle appears to be intact. LABORATORY DATA: White count 10, hemoglobin 8.3, platelets 399. Electrolytes are normal. Creatinine is 1.1, calcium low at 8.2. Glucose slightly high at 128. BNP slightly high at 791. Troponins are 0. Flu and COVID testing are both negative. I reviewed the chest x-ray, she has got hyperinflated lungs. CAT scan is also mentioning pulmonary nodules, which she has had in the past, but one of them has increased in size from 0.7 mm to 1 cm. ASSESSMENT AND PLAN: Respiratory failure, progression of disease with severe chronic obstructive pulmonary disease, hypoxia, anemia, abnormal imaging with increasing pulmonary nodule size. The patient has been admitted. We are using IV steroids, breathing treatments, oxygen, antibiotics, home meds. DVT prophylaxis. Full code. We have consulted Dr. Diego, he has already seen the patient. We certainly agree and appreciate his input. We will order some PT, OT and trend her labs. Cardiac monitoring. Prognosis long-term guarded. MARTA/JUAN/JOSY GREENE: MARTA/lisa TID: [id number]
--- NOTE | 2021-07-26 19:11 | CONS ---
DATE OF CONSULTATION: 07/26/2021 REASON FOR CONSULTATION: The patient is seen in pulmonary consultation at the request of Dr. Pop for increasing shortness of air. HISTORY OF PRESENT ILLNESS: The patient is a patient of practice. She normally sees Dr. Tejeda. She is chronically on 3 liters of oxygen at home and has underlying COPD, presented with progressive dyspnea, tachypnea. No fever, chills, or night sweats, coughing, mostly nonproductive wheezing. She underwent a CT angiogram revealing no evidence of pulmonary emboli and there were scattered bilateral pulmonary nodules, the largest measuring 1 cm in the right upper lobe. She also has some emphysematous changes. The patient has had previous biopsy of the right upper lobe nodule, which was nondiagnostic. PAST MEDICAL HISTORY: COPD, chronic respiratory failure, right upper lobe nodule with previous workup being nondiagnostic. There is a history of CHF, coronary artery disease, hyperlipidemia, hypertension. PAST SURGICAL HISTORY: Pacemaker implantation. She also has a defibrillator in place. She has had previous left shoulder surgery. REVIEW OF SYSTEMS: As indicated above, otherwise a 10-point system was reviewed and negative. CURRENT MEDICATIONS: List was reviewed. VACCINATION HISTORY: The patient is up to date on her COVID vaccine. ALLERGIES: IBUPROFEN, NAPROSYN, PIPERACILLIN AND TAZOBACTAM. PHYSICAL EXAMINATION: GENERAL: The patient is in no respiratory distress. She did cough on several occasions during my evaluation. It was nonproductive, currently on 3 liters, afebrile. NECK: Jugular venous distention was not elevated. No lymphadenopathy. CHEST: Full expansion. LUNGS: Coarse breath sounds, expiratory wheeze, rhonchi. CARDIOVASCULAR: Regular rate and rhythm with S1, S2. No S3. ABDOMEN: Soft. EXTREMITIES: No clubbing, cyanosis, or edema. LABORATORY DATA: Reviewed. White count was normal. Hemoglobin and hematocrit were noted. Electrolytes were noted. SARS-CoV-2 rapid test negative. IMPRESSION: 1. Progressive dyspnea secondary to acute exacerbation of chronic obstructive pulmonary disease. 2. Chronic respiratory failure. 3. Abnormal CT revealing right upper lobe nodule, currently measuring 1 cm. Previous workup is nondiagnostic. 4. Chronic obstructive pulmonary disease. 5. Hyperlipidemia. PLAN: 1. Continue steroids and antibiotics. 2. We will obtain office records from Dr. Tejeda regarding the right upper lobe nodule. 3. DVT prophylaxis. SS/KSV/JOSE DR: Delhpine TID: [id number]
[2021-07-26 19:20] VITALS: BP 118/59
[2021-07-26] MEDS: BUDESONIDE 0.5 MG/2 ML NEBU. NEB SCH (20:37)
[2021-07-26] MEDS: methylPREDNISolone SOD SUCC PF 125 MG/2 ML VIAL. IV SCH (20:59)
[2021-07-26] MEDS: rOPINIRole 1 MG TABLET. PO SCH (21:00)
[2021-07-26] MEDS: AMITRIPTYLINE HCL 25 MG TABLET. PO SCH (21:00)
[2021-07-26] MEDS: ENTRESTO PO SCH (21:00)
[2021-07-26] MEDS: MONTELUKAST SODIUM 10 MG TABLET. PO SCH (21:00)
[2021-07-26] MEDS: ATORVASTATIN CALCIUM 20 MG TABLET PO SCH (21:00)
[2021-07-26 22:56] VITALS: BP 95/46
[2021-07-27 03:00] VITALS: BP 101/51
[2021-07-27 05:24] LABS: BASO % 0 % (0-3); EOS % 0 % (0-3); HEMATOCRIT 24.7 % (36.0-47.0); HEMOGLOBIN 7.8 g/dL (12.0-15.5); LYMPH # 0.5 x10^3/uL (1.0-4.8); LYMPH % 5 % (24-48); MEAN CORPUSCULAR HEMOGLOBIN 29 pg (25-35); MEAN CORPUSCULAR HGB CONC 32 g/dL (31-37); MEAN CORPUSCULAR VOLUME 93 fL (79-100); MONO # 0.2 x10^3/uL (0.0-1.1); MONO % 2 % (0-9); NEUT % 93 % (31-73); PLATELET COUNT 373 x10^3/uL (140-400); RED BLOOD COUNT 2.65 x10^6/uL (3.50-5.40); RED CELL DISTRIBUTION WIDTH 17.9 % (11.5-14.5); WHITE BLOOD COUNT 9.7 x10^3/uL (4.0-11.0)
[2021-07-27] MEDS: LEVOTHYROXINE 50 MCG TABLET PO SCH (05:43)
[2021-07-27 05:45] LABS: CALCIUM 8.9 mg/dL (8.5-10.1); CREATININE 1.2 mg/dL (0.6-1.0); GFR 44.8
[2021-07-27 07:00] VITALS: BP 104/51
[2021-07-27] MEDS: BUDESONIDE 0.5 MG/2 ML NEBU. NEB SCH ×2 (07:18→20:28)
[2021-07-27] MEDS: IPRATRPIUM/ALBUTEROL 0.5/2.5MG 3 ML NEBU. NEB SCH ×4 (07:19→20:28)
[2021-07-27] MEDS: methylPREDNISolone SOD SUCC PF 125 MG/2 ML VIAL. IV SCH ×2 (08:05→22:43)
[2021-07-27] MEDS: ENOXAPARIN 40 MG/0.4 ML SYRINGE. SQ SCH (08:05)
[2021-07-27] MEDS: FERROUS SULFATE 325 MG TABLET. PO SCH (08:06)
[2021-07-27] MEDS: ASPIRIN ENTERIC COATED 81 MG TABLET.DR. PO SCH (08:06)
[2021-07-27] MEDS: CLOPIDOGREL BISULFATE 75 MG TABLET PO SCH (08:06)
[2021-07-27] MEDS: ROFLUMILAST 500 MCG TABLET. PO SCH (08:06)
[2021-07-27] MEDS: POTASSIUM CHLORIDE 20 MEQ TABLET.ER. PO SCH (08:06)
[2021-07-27] MEDS: ALLOPURINOL 300 MG TABLET. PO SCH (08:06)
[2021-07-27] MEDS: CHOLECALCIFEROL (VITAMIN D3) 1,000 UNIT TABLET PO SCH (08:06)
[2021-07-27] MEDS: CETIRIZINE HCL 10 MG TABLET. PO SCH (08:06)
[2021-07-27] MEDS: DOXYCYCLINE HYCLATE 100 MG TABLET PO SCH ×2 (08:06→22:46)
[2021-07-27] MEDS: PANTOPRAZOLE 40 MG TABLET.DR. PO SCH (08:06)
[2021-07-27] MEDS: SPIRONOLACTONE 25 MG TABLET PO SCH (08:07)
[2021-07-27] MEDS: GABAPENTIN 100 MG CAPSULE. PO SCH ×3 (08:07→22:45)
[2021-07-27] MEDS: TORSEMIDE 20 MG TABLET. PO SCH (08:07)
[2021-07-27] MEDS: METOPROLOL SUCC 24HR ER 25 MG TAB.ER.24H. PO SCH (08:07)
[2021-07-27] MEDS: ENTRESTO PO SCH ×2 (08:10→21:00)
--- NOTE | 2021-07-27 08:43 | PDOC ---
PULMONARY PROGRESS NOTES DATE: 07/27/21 TIME: 08:43 Subjective Patient with sore throat, increasing wheeze, increasing shortness of breath Vitals Vital Signs Date Time Temp Pulse Resp B/P (MAP) Pulse Ox O2 Delivery O2 Flow Rate FiO2 07/27/21 08:07 116 104/51 07/27/21 07:19 100 Nasal Cannula 3.0 07/27/21 07:00 98.0 20 98.0 ROS: No Nausea, No Chest Pain, No Abdominal Pain, No Increase Cough General: Alert, Oriented X4, No acute distress HEENT: Other (Audible wheezing) Lungs: Wheezing Cardiovascular: S1, S2 Abdomen: Soft, Non-tender Extremities: No Edema Labs Laboratory Tests Test 07/25/21 22:35 07/25/21 22:50 07/26/21 01:30 07/26/21 04:40 White Blood Count 10.2 x10^3/uL (4.0-11.0) Red Blood Count 2.74 x10^6/uL (3.50-5.40) Hemoglobin 8.3 g/dL (12.0-15.5) Hematocrit 25.1 % (36.0-47.0) Mean Corpuscular Volume 92 fL (79-100) Mean Corpuscular Hemoglobin 30 pg (25-35) Mean Corpuscular Hemoglobin Concent 33 g/dL (31-37) Red Cell Distribution Width 17.7 % (11.5-14.5) Platelet Count 399 x10^3/uL (140-400) Neutrophils (%) (Auto) 78 % (31-73) Lymphocytes (%) (Auto) 11 % (24-48) Monocytes (%) (Auto) 7 % (0-9) Eosinophils (%) (Auto) 5 % (0-3) Basophils (%) (Auto) 1 % (0-3) Neutrophils # (Auto) 7.9 x10^3/uL (1.8-7.7) Lymphocytes # (Auto) 1.1 x10^3/uL (1.0-4.8) Monocytes # (Auto) 0.7 x10^3/uL (0.0-1.1) Eosinophils # (Auto) 0.5 x10^3/uL (0.0-0.7) Basophils # (Auto) 0.1 x10^3/uL (0.0-0.2) Sodium Level 141 mmol/L (136-145) Potassium Level 4.7 mmol/L (3.5-5.1) Chloride Level 105 mmol/L (98-107) Carbon Dioxide Level 28 mmol/L (21-32) Anion Gap 8 (6-14) Blood Urea Nitrogen 11 mg/dL (7-20) Creatinine 1.1 mg/dL (0.6-1.0) Estimated GFR (Cockcroft-Gault) 49.5 Glucose Level 128 mg/dL (70-99) Calcium Level 8.2 mg/dL (8.5-10.1) Troponin I Quantitative < 0.017 ng/mL (0.000-0.055) < 0.017 ng/mL (0.000-0.055) < 0.017 ng/mL (0.000-0.055) JK-Cyq-W-Type Natriuretic Peptide 791 pg/mL (0-124) Influenza Type A Antigen Negative (NEGATIVE) Influenza Type B Antigen Negative (NEGATIVE) SARS-CoV-2 Antigen (Rapid) Negative (NEGATIVE) Test 07/27/21 04:10 White Blood Count 9.7 x10^3/uL (4.0-11.0) Red Blood Count 2.65 x10^6/uL (3.50-5.40) Hemoglobin 7.8 g/dL (12.0-15.5) Hematocrit 24.7 % (36.0-47.0) Mean Corpuscular Volume 93 fL (79-100) Mean Corpuscular Hemoglobin 29 pg (25-35) Mean Corpuscular Hemoglobin Concent 32 g/dL (31-37) Red Cell Distribution Width 17.9 % (11.5-14.5) Platelet Count 373 x10^3/uL (140-400) Neutrophils (%) (Auto) 93 % (31-73) Lymphocytes (%) (Auto) 5 % (24-48) Monocytes (%) (Auto) 2 % (0-9) Eosinophils (%) (Auto) 0 % (0-3) Basophils (%) (Auto) 0 % (0-3) Neutrophils # (Auto) 9.0 x10^3/uL (1.8-7.7) Lymphocytes # (Auto) 0.5 x10^3/uL (1.0-4.8) Monocytes # (Auto) 0.2 x10^3/uL (0.0-1.1) Eosinophils # (Auto) 0.0 x10^3/uL (0.0-0.7) Basophils # (Auto) 0.0 x10^3/uL (0.0-0.2) Sodium Level 137 mmol/L (136-145) Potassium Level 5.0 mmol/L (3.5-5.1) Chloride Level 101 mmol/L (98-107) Carbon Dioxide Level 34 mmol/L (21-32) Anion Gap 2 (6-14) Blood Urea Nitrogen 14 mg/dL (7-20) Creatinine 1.2 mg/dL (0.6-1.0) Estimated GFR (Cockcroft-Gault) 44.8 Glucose Level 183 mg/dL (70-99) Calcium Level 8.9 mg/dL (8.5-10.1) Laboratory Tests Test 07/27/21 04:10 White Blood Count 9.7 x10^3/uL (4.0-11.0) Red Blood Count 2.65 x10^6/uL (3.50-5.40) Hemoglobin 7.8 g/dL (12.0-15.5) Hematocrit 24.7 % (36.0-47.0) Mean Corpuscular Volume 93 fL (79-100) Mean Corpuscular Hemoglobin 29 pg (25-35) Mean Corpuscular Hemoglobin Concent 32 g/dL (31-37) Red Cell Distribution Width 17.9 % (11.5-14.5) Platelet Count 373 x10^3/uL (140-400) Neutrophils (%) (Auto) 93 % (31-73) Lymphocytes (%) (Auto) 5 % (24-48) Monocytes (%) (Auto) 2 % (0-9) Eosinophils (%) (Auto) 0 % (0-3) Basophils (%) (Auto) 0 % (0-3) Neutrophils # (Auto) 9.0 x10^3/uL (1.8-7.7) Lymphocytes # (Auto) 0.5 x10^3/uL (1.0-4.8) Monocytes # (Auto) 0.2 x10^3/uL (0.0-1.1) Eosinophils # (Auto) 0.0 x10^3/uL (0.0-0.7) Basophils # (Auto) 0.0 x10^3/uL (0.0-0.2) Sodium Level 137 mmol/L (136-145) Potassium Level 5.0 mmol/L (3.5-5.1) Chloride Level 101 mmol/L (98-107) Carbon Dioxide Level 34 mmol/L (21-32) Anion Gap 2 (6-14) Blood Urea Nitrogen 14 mg/dL (7-20) Creatinine 1.2 mg/dL (0.6-1.0) Estimated GFR (Cockcroft-Gault) 44.8 Glucose Level 183 mg/dL (70-99) Calcium Level 8.9 mg/dL (8.5-10.1) Medications Active Scripts Medications Dose Route/Sig Max Daily Dose Days Date Category Ferrous Sulfate 325 Mg Tablet 1 Tab PO DAILY 07/26/21 Reported Sucralfate 1 Gm Tablet 1 Tab PO QID 07/26/21 Reported Clopidogrel (Clopidogrel Bisulfate) 75 Mg Tablet 1 Tab PO DAILY 07/20/21 Reported Methocarbamol 500 Mg Tablet 1,000 Mg PO PRN BID PRN 05/25/21 Reported Spironolactone 25 Mg Tablet 25 Mg PO DAILY 05/19/21 Reported Metoprolol Succinate ( Xl ) (Metoprolol Succinate) 25 Mg Tab.er.24h 25 Mg PO DAILY 05/19/21 Reported Voltaren Arthritis Pain (Diclofenac Sodium) 20 Gm Gel..gram. 20 Gm TP PRN PRN 05/19/21 Reported Entresto 24 mg-26 mg Tablet (Sacubitril/Valsartan) 1 Each Tablet 1 Each PO BID 30 11/19/20 Rx Gabapentin (Gabapentin) 100 Mg Capsule 100 Mg PO TID 10/18/20 Reported Alendronate Sodium 70 Mg Tablet 1 Tab PO WEEKLY 10/16/20 Reported Allopurinol 300 Mg Tablet 1 Tab PO DAILY 10/16/20 Reported Trelegy Ellipta 100-62.5-25 (Fluticasone/Umeclidin/Vilanter) 1 Each Blst.w.dev 1 Each IH DAILY 03/17/20 Reported Prilosec Otc (Omeprazole Magnesium) 20 Mg Tablet.dr 40 Mg PO DAILY 03/17/20 Reported Duoneb 0.5-3(2.5) Mg/3 Ml (Albuterol/Ipratropium) 3 Ml Ampul.neb 3 Ml NEB Q4HRS 14 10/22/19 Rx K-Tab ER (Potassium Chloride) 20 Meq Tablet.er 20 Meq PO DAILY 07/30/19 Reported Montelukast Sodium Tablet (Montelukast Sodium) 10 Mg Tablet 10 Mg PO HS 07/29/19 Reported Levocetirizine Dihydrochloride 5 Mg Tablet 5 Mg PO DAILY 07/29/19 Reported Amitriptyline Hcl 25 Mg Tablet 25 Mg PO QHS 07/29/19 Reported Aspir 81 (Aspirin) 81 Mg Tablet.dr 1 Tab PO DAILY 01/03/18 Reported Vitamin D3 (Cholecalciferol (Vitamin D3)) 1,000 Unit Tablet 1 Tab PO DAILY 01/02/18 Reported Torsemide 20 Mg Tablet 2 Tab PO DAILY 01/02/18 Reported Daliresp (Roflumilast) 500 Mcg Tablet 1 Tab PO DAILY 09/23/17 Reported Atorvastatin Calcium 20 Mg Tablet 20 Mg PO HS 09/23/17 Reported Requip (Ropinirole Hcl) 1 Mg Tablet 3 Tab PO QHS 09/23/17 Reported Proair Hfa Inhaler (Albuterol Sulfate) 8.5 Gm Hfa.aer.ad 1 Puff INH PRN Q6HRS PRN 09/23/17 Reported Levothyroxine Sodium 50 Mcg Tablet 1 Tab PO DAILY 09/23/17 Reported Impression . IMPRESSION: 1. Progressive dyspnea secondary to acute exacerbation of chronic obstructive pulmonary disease. 2. Chronic respiratory failure. 3. Abnormal CT revealing right upper lobe nodule, currently measuring 1 cm. Previous workup is nondiagnostic. 4. Chronic obstructive pulmonary disease. 5. Hyperlipidemia. 6. Viral tracheobronchitis Plan . UPDATED 07/27 Continue current support Office notes reviewed, follow-up with Dr. Tejeda once discharge Continues steroid PLAN: 1. Continue steroids and antibiotics. 2. We will obtain office records from Dr. Tejeda regarding the right upper lobe nodule. 3. DVT prophylaxis. LETICIA FORTUNE MD Jul 27, 2021 08:43
[2021-07-27 09:46] LABS: % LYMPHS 3 % (24-48); % MONOS 1 % (0-10); % SEGS 96 % (35-66)
[2021-07-27 09:50] LABS: PLT ESTIMATE ADEQUATE (ADEQUATE)
[2021-07-27 09:51] LABS: ANISOCYTOSIS PRESENT; POLYCHROMASIA PRESENT
[2021-07-27] MEDS: SUCRALFATE 1 GM TABLET. PO SCH ×4 (10:20→22:46)
[2021-07-27 10:30] VITALS: BP 98/53
[2021-07-27] MEDS: guaiFENesin/CODEINE 100mg/10mg 5 ML LIQUID PO PRN ×2 (12:21→22:46)
--- NOTE | 2021-07-27 12:50 | PDOC ---
[employer] PROGRESS NOTE Date of Service DOS: DATE: 07/27/21 TIME: 12:39 Chief Complaint Chief Complaint End-stage COPD Exacerbation Respiratory Failure CAD CHF diabetes, hypertension hyperlipidemia hypothyroidism AICD Hx left shoulder surgery, Hx tobacco abuse (quit 3 years ago) LAILA MDD History of Present Illness History of Present Illness 07/27 Patient seen and examined at bedside Charts reviewed No acute overnight events Pt visibly dyspneic and coughing,currently on 3L by [place] Discussed case with RN and SW Vitals/I&O Vitals/I&O: Vital Signs Date Time Temp Pulse Resp B/P (MAP) Pulse Ox O2 Delivery O2 Flow Rate FiO2 07/27/21 11:35 Nasal Cannula 3.0 07/27/21 10:30 98.0 92 20 98/53 (68) 10 98.0 I & O 07/26/21 07/26/21 07/27/21 15:00 23:00 07:00 Intake Total 240 ml 240 ml 400 ml Balance 240 ml 240 ml 400 ml Physical Exam General: Alert, Oriented X3, Cooperative Heart: Regular rate, Normal S1, Normal S2 Lungs: Wheezing, Crackles Abdomen: Normal bowel sounds, Soft Extremities: No cyanosis, No edema Skin: No rashes, No breakdown Labs Labs: Laboratory Tests Test 07/27/21 04:10 White Blood Count 9.7 x10^3/uL (4.0-11.0) Red Blood Count 2.65 x10^6/uL (3.50-5.40) Hemoglobin 7.8 g/dL (12.0-15.5) Hematocrit 24.7 % (36.0-47.0) Mean Corpuscular Volume 93 fL (79-100) Mean Corpuscular Hemoglobin 29 pg (25-35) Mean Corpuscular Hemoglobin Concent 32 g/dL (31-37) Red Cell Distribution Width 17.9 % (11.5-14.5) Platelet Count 373 x10^3/uL (140-400) Neutrophils (%) (Auto) 93 % (31-73) Lymphocytes (%) (Auto) 5 % (24-48) Monocytes (%) (Auto) 2 % (0-9) Eosinophils (%) (Auto) 0 % (0-3) Basophils (%) (Auto) 0 % (0-3) Neutrophils # (Auto) 9.0 x10^3/uL (1.8-7.7) Lymphocytes # (Auto) 0.5 x10^3/uL (1.0-4.8) Monocytes # (Auto) 0.2 x10^3/uL (0.0-1.1) Eosinophils # (Auto) 0.0 x10^3/uL (0.0-0.7) Basophils # (Auto) 0.0 x10^3/uL (0.0-0.2) Segmented Neutrophils % 96 % (35-66) Lymphocytes % 3 % (24-48) Monocytes % 1 % (0-10) Platelet Estimate Adequate (ADEQUATE) Large Platelets Occ Polychromasia Present Anisocytosis Present Sodium Level 137 mmol/L (136-145) Potassium Level 5.0 mmol/L (3.5-5.1) Chloride Level 101 mmol/L (98-107) Carbon Dioxide Level 34 mmol/L (21-32) Anion Gap 2 (6-14) Blood Urea Nitrogen 14 mg/dL (7-20) Creatinine 1.2 mg/dL (0.6-1.0) Estimated GFR (Cockcroft-Gault) 44.8 Glucose Level 183 mg/dL (70-99) Calcium Level 8.9 mg/dL (8.5-10.1) Review of Systems Review of Systems: ROS negative Assessment and Plan Assessmemt and Plan Problems Medical Problems: (1) COPD exacerbation Status: Acute End-stage COPD Exacerbation Respiratory Failure CAD CHF diabetes, hypertension hyperlipidemia hypothyroidism AICD Hx left shoulder surgery, Hx tobacco abuse (quit 3 years ago) LAILA MDD Plan Pulmonology input appreciated Added Robitussen with codeine Continue monitoring on telemetry Continue IV steroids Continue antibiotics Continue breathing treatments Titrate oxygen PRN Encourage p.o. intake Restarted home meds as indicated DVT prophylaxis PT/OT Full code Comment Review of Relevant I have reviewed the following items jon (where applicable) has been applied. Medications: Current Medications Medications (Trade) Dose Ordered Sig/Keshav Route PRN Reason Start Time Stop Time Status Last Admin Dose Admin Methylprednisolone Sodium Succinate (SOLU-Medrol 125MG VIAL) 125 mg Q12HR IV 07/26/21 21:00 07/27/21 08:05 Allopurinol (Zyloprim) 300 mg DAILY PO 07/26/21 14:00 07/27/21 08:06 Amitriptyline HCl (Elavil) 25 mg QHS PO 07/26/21 21:00 07/26/21 21:00 Aspirin (Ecotrin) 81 mg DAILY PO 07/26/21 14:00 07/27/21 08:06 Atorvastatin Calcium (Lipitor) 20 mg HS PO 07/26/21 21:00 07/26/21 21:00 Vitamin D (Vitamin D3) 1,000 unit DAILY PO 07/27/21 09:00 07/27/21 08:06 Clopidogrel Bisulfate (Plavix) 75 mg DAILY PO 07/26/21 14:00 07/27/21 08:06 Ferrous Sulfate (Feosol) 325 mg DAILY PO 07/26/21 14:00 07/27/21 08:06 Gabapentin (Neurontin) 100 mg TID PO 07/26/21 14:00 07/27/21 08:07 Levothyroxine Sodium (Synthroid) 50 mcg DAILY06 PO 07/26/21 13:30 07/27/21 05:43 Metoprolol Succinate (Toprol Xl) 25 mg DAILY PO 07/26/21 14:00 07/27/21 08:07 Montelukast Sodium (Singulair) 10 mg HS PO 07/26/21 21:00 07/26/21 21:00 Roflumilast (Daliresp) 500 mcg DAILY PO 07/26/21 15:00 07/27/21 08:06 Ropinirole HCl (Requip) 3 mg QHS PO 07/26/21 21:00 07/26/21 21:00 Non-Formulary Medication (Entresto ) 1 ea BID PO 07/26/21 21:00 07/27/21 08:10 Spironolactone (Aldactone) 25 mg DAILY PO 07/26/21 15:00 07/27/21 08:07 Sucralfate (Carafate) 1 gm QIDPMEDS PO 07/26/21 14:00 07/27/21 10:20 Torsemide (Demadex) 40 mg DAILY PO 07/26/21 14:00 07/27/21 08:07 Budesonide (Pulmicort) 0.5 mg RTBID NEB 07/26/21 20:00 07/27/21 07:18 Cetirizine HCl (ZyrTEC) 10 mg DAILY PO 07/26/21 14:00 07/27/21 08:06 Pantoprazole Sodium (Protonix) 40 mg DAILYAC PO 07/27/21 07:30 07/27/21 08:06 Potassium Chloride (Klor-Con) 20 meq DAILYWBKFT PO 07/26/21 14:00 07/27/21 08:06 Guaifenesin/ Codeine Phosphate (Robitussin Ac) 5 ml PRN Q4HRS PRN PO COUGH 07/27/21 10:00 07/27/21 12:21 Justifications for Admission Other Justification MALFUNCTIONING AICJULIANA SALGUERO III DO Jul 27, 2021 12:50
[2021-07-27 14:25] VITALS: BP 91/42
--- NOTE | 2021-07-27 15:44 | NUR ---
SS following for discharge planning. SS reviewed pt chart and discussed with pt RN. Pt is from home with spouse and is currently requiring oxygen at three liters nasal canula. Pt has home oxygen. COVID19 negative. Pt on IV Solu-Medrol. Pulmonology following. Pt has had previous services with [facility], ; fax [phone]. SS will continue to follow for discharge planning.
[2021-07-27 19:15] VITALS: BP 126/60
[2021-07-27] MEDS: MONTELUKAST SODIUM 10 MG TABLET. PO SCH (22:42)
[2021-07-27] MEDS: rOPINIRole 1 MG TABLET. PO SCH (22:44)
[2021-07-27] MEDS: LACTOBACILLUS RHAMNOSUS GG 1 CAPSULE. PO SCH (22:44)
[2021-07-27] MEDS: ATORVASTATIN CALCIUM 20 MG TABLET PO SCH (22:45)
[2021-07-27] MEDS: AMITRIPTYLINE HCL 25 MG TABLET. PO SCH (22:46)
[2021-07-27 23:25] VITALS: BP 109/50
[2021-07-28 03:30] VITALS: BP 93/48
[2021-07-28 03:40] LABS: BILIRUBIN,URINE NEGATIVE (NEG); CLARITY,URINE CLEAR; COLOR,URINE YELLOW; NITRITE,URINE NEGATIVE (NEG); PH,URINE 5.5 (<5.0-8.0); PROTEIN,URINE NEGATIVE (NEG-TRACE); UROBILINOGEN,URINE 0.2 mg/dL (0.2 mg/dL)
[2021-07-28 03:52] LABS: BACTERIA,URINE 0 /HPF (0-FEW); RBC,URINE 0 /HPF (0-2); WBC,URINE RARE /HPF (0-4)
[2021-07-28] MEDS: LEVOTHYROXINE 50 MCG TABLET PO SCH (06:24)
[2021-07-28 07:00] VITALS: BP 96/51
[2021-07-28] MEDS: BUDESONIDE 0.5 MG/2 ML NEBU. NEB SCH ×2 (07:40→20:56)
[2021-07-28] MEDS: IPRATRPIUM/ALBUTEROL 0.5/2.5MG 3 ML NEBU. NEB SCH ×4 (07:40→20:56)
[2021-07-28 07:53] LABS: BASO % 0 % (0-3); EOS % 0 % (0-3); HEMATOCRIT 27.1 % (36.0-47.0); HEMOGLOBIN 8.6 g/dL (12.0-15.5); LYMPH # 0.5 x10^3/uL (1.0-4.8); LYMPH % 4 % (24-48); MEAN CORPUSCULAR HEMOGLOBIN 30 pg (25-35); MEAN CORPUSCULAR HGB CONC 32 g/dL (31-37); MEAN CORPUSCULAR VOLUME 94 fL (79-100); MONO # 0.3 x10^3/uL (0.0-1.1); MONO % 2 % (0-9); NEUT # 13.2 x10^3/uL (1.8-7.7); NEUT % 95 % (31-73); PLATELET COUNT 441 x10^3/uL (140-400); RED BLOOD COUNT 2.89 x10^6/uL (3.50-5.40); RED CELL DISTRIBUTION WIDTH 18.2 % (11.5-14.5); WHITE BLOOD COUNT 13.9 x10^3/uL (4.0-11.0)
[2021-07-28 08:00] LABS: CALCIUM 9.1 mg/dL (8.5-10.1); CREATININE 1.3 mg/dL (0.6-1.0); GFR 40.9
--- NOTE | 2021-07-28 08:43 | PDOC ---
PULMONARY PROGRESS NOTES DATE: 07/28/21 TIME: 08:43 Subjective Patient continues to wheeze, continue cough Vitals Vital Signs Date Time Temp Pulse Resp B/P (MAP) Pulse Ox O2 Delivery O2 Flow Rate FiO2 07/28/21 07:41 98 Nasal Cannula 3.0 07/28/21 07:00 98.1 85 17 96/51 (66) 98.1 ROS: No Nausea, No Chest Pain, No Abdominal Pain, No Increase Cough General: Alert, Oriented X4, No acute distress HEENT: Other (Audible wheezing) Lungs: Wheezing Cardiovascular: S1, S2 Abdomen: Soft, Non-tender Extremities: No Edema Labs Laboratory Tests Test 07/27/21 04:10 07/28/21 03:30 07/28/21 07:10 White Blood Count 9.7 x10^3/uL (4.0-11.0) 13.9 x10^3/uL (4.0-11.0) Red Blood Count 2.65 x10^6/uL (3.50-5.40) 2.89 x10^6/uL (3.50-5.40) Hemoglobin 7.8 g/dL (12.0-15.5) 8.6 g/dL (12.0-15.5) Hematocrit 24.7 % (36.0-47.0) 27.1 % (36.0-47.0) Mean Corpuscular Volume 93 fL (79-100) 94 fL (79-100) Mean Corpuscular Hemoglobin 29 pg (25-35) 30 pg (25-35) Mean Corpuscular Hemoglobin Concent 32 g/dL (31-37) 32 g/dL (31-37) Red Cell Distribution Width 17.9 % (11.5-14.5) 18.2 % (11.5-14.5) Platelet Count 373 x10^3/uL (140-400) 441 x10^3/uL (140-400) Neutrophils (%) (Auto) 93 % (31-73) 95 % (31-73) Lymphocytes (%) (Auto) 5 % (24-48) 4 % (24-48) Monocytes (%) (Auto) 2 % (0-9) 2 % (0-9) Eosinophils (%) (Auto) 0 % (0-3) 0 % (0-3) Basophils (%) (Auto) 0 % (0-3) 0 % (0-3) Neutrophils # (Auto) 9.0 x10^3/uL (1.8-7.7) 13.2 x10^3/uL (1.8-7.7) Lymphocytes # (Auto) 0.5 x10^3/uL (1.0-4.8) 0.5 x10^3/uL (1.0-4.8) Monocytes # (Auto) 0.2 x10^3/uL (0.0-1.1) 0.3 x10^3/uL (0.0-1.1) Eosinophils # (Auto) 0.0 x10^3/uL (0.0-0.7) 0.0 x10^3/uL (0.0-0.7) Basophils # (Auto) 0.0 x10^3/uL (0.0-0.2) 0.0 x10^3/uL (0.0-0.2) Segmented Neutrophils % 96 % (35-66) Lymphocytes % 3 % (24-48) Monocytes % 1 % (0-10) Platelet Estimate Adequate (ADEQUATE) Large Platelets Occ Polychromasia Present Anisocytosis Present Sodium Level 137 mmol/L (136-145) 139 mmol/L (136-145) Potassium Level 5.0 mmol/L (3.5-5.1) 6.0 mmol/L (3.5-5.1) Chloride Level 101 mmol/L (98-107) 101 mmol/L (98-107) Carbon Dioxide Level 34 mmol/L (21-32) 32 mmol/L (21-32) Anion Gap 2 (6-14) 6 (6-14) Blood Urea Nitrogen 14 mg/dL (7-20) 26 mg/dL (7-20) Creatinine 1.2 mg/dL (0.6-1.0) 1.3 mg/dL (0.6-1.0) Estimated GFR (Cockcroft-Gault) 44.8 40.9 Glucose Level 183 mg/dL (70-99) 152 mg/dL (70-99) Calcium Level 8.9 mg/dL (8.5-10.1) 9.1 mg/dL (8.5-10.1) Urine Collection Type Void Urine Color Yellow Urine Clarity Clear Urine pH 5.5 (<5.0-8.0) Urine Specific [place] <=1.005 (1.000-1.030) Urine Protein Negative mg/dL (NEG-TRACE) Urine Glucose (UA) Negative mg/dL (NEG) Urine Ketones (Stick) Negative mg/dL (NEG) Urine Blood Negative (NEG) Urine Nitrite Negative (NEG) Urine Bilirubin Negative (NEG) Urine Urobilinogen Dipstick 0.2 mg/dL (0.2 mg/dL) Urine Leukocyte Esterase Negative (NEG) Urine RBC 0 /HPF (0-2) Urine WBC Rare /HPF (0-4) Urine Squamous Epithelial Cells Few /LPF Urine Bacteria 0 /HPF (0-FEW) Urine Mucus Slight /LPF Laboratory Tests Test 07/28/21 03:30 07/28/21 07:10 Urine Collection Type Void Urine Color Yellow Urine Clarity Clear Urine pH 5.5 (<5.0-8.0) Urine Specific [place] <=1.005 (1.000-1.030) Urine Protein Negative mg/dL (NEG-TRACE) Urine Glucose (UA) Negative mg/dL (NEG) Urine Ketones (Stick) Negative mg/dL (NEG) Urine Blood Negative (NEG) Urine Nitrite Negative (NEG) Urine Bilirubin Negative (NEG) Urine Urobilinogen Dipstick 0.2 mg/dL (0.2 mg/dL) Urine Leukocyte Esterase Negative (NEG) Urine RBC 0 /HPF (0-2) Urine WBC Rare /HPF (0-4) Urine Squamous Epithelial Cells Few /LPF Urine Bacteria 0 /HPF (0-FEW) Urine Mucus Slight /LPF White Blood Count 13.9 x10^3/uL (4.0-11.0) Red Blood Count 2.89 x10^6/uL (3.50-5.40) Hemoglobin 8.6 g/dL (12.0-15.5) Hematocrit 27.1 % (36.0-47.0) Mean Corpuscular Volume 94 fL (79-100) Mean Corpuscular Hemoglobin 30 pg (25-35) Mean Corpuscular Hemoglobin Concent 32 g/dL (31-37) Red Cell Distribution Width 18.2 % (11.5-14.5) Platelet Count 441 x10^3/uL (140-400) Neutrophils (%) (Auto) 95 % (31-73) Lymphocytes (%) (Auto) 4 % (24-48) Monocytes (%) (Auto) 2 % (0-9) Eosinophils (%) (Auto) 0 % (0-3) Basophils (%) (Auto) 0 % (0-3) Neutrophils # (Auto) 13.2 x10^3/uL (1.8-7.7) Lymphocytes # (Auto) 0.5 x10^3/uL (1.0-4.8) Monocytes # (Auto) 0.3 x10^3/uL (0.0-1.1) Eosinophils # (Auto) 0.0 x10^3/uL (0.0-0.7) Basophils # (Auto) 0.0 x10^3/uL (0.0-0.2) Sodium Level 139 mmol/L (136-145) Potassium Level 6.0 mmol/L (3.5-5.1) Chloride Level 101 mmol/L (98-107) Carbon Dioxide Level 32 mmol/L (21-32) Anion Gap 6 (6-14) Blood Urea Nitrogen 26 mg/dL (7-20) Creatinine 1.3 mg/dL (0.6-1.0) Estimated GFR (Cockcroft-Gault) 40.9 Glucose Level 152 mg/dL (70-99) Calcium Level 9.1 mg/dL (8.5-10.1) Medications Active Scripts Medications Dose Route/Sig Max Daily Dose Days Date Category Ferrous Sulfate 325 Mg Tablet 1 Tab PO DAILY 07/26/21 Reported Sucralfate 1 Gm Tablet 1 Tab PO QID 07/26/21 Reported Clopidogrel (Clopidogrel Bisulfate) 75 Mg Tablet 1 Tab PO DAILY 07/20/21 Reported Methocarbamol 500 Mg Tablet 1,000 Mg PO PRN BID PRN 05/25/21 Reported Spironolactone 25 Mg Tablet 25 Mg PO DAILY 05/19/21 Reported Metoprolol Succinate ( Xl ) (Metoprolol Succinate) 25 Mg Tab.er.24h 25 Mg PO DAILY 05/19/21 Reported Voltaren Arthritis Pain (Diclofenac Sodium) 20 Gm Gel..gram. 20 Gm TP PRN PRN 05/19/21 Reported Entresto 24 mg-26 mg Tablet (Sacubitril/Valsartan) 1 Each Tablet 1 Each PO BID 30 11/19/20 Rx Gabapentin (Gabapentin) 100 Mg Capsule 100 Mg PO TID 10/18/20 Reported Alendronate Sodium 70 Mg Tablet 1 Tab PO WEEKLY 10/16/20 Reported Allopurinol 300 Mg Tablet 1 Tab PO DAILY 10/16/20 Reported Trelegy Ellipta 100-62.5-25 (Fluticasone/Umeclidin/Vilanter) 1 Each Blst.w.dev 1 Each IH DAILY 03/17/20 Reported Prilosec Otc (Omeprazole Magnesium) 20 Mg Tablet.dr 40 Mg PO DAILY 03/17/20 Reported Duoneb 0.5-3(2.5) Mg/3 Ml (Albuterol/Ipratropium) 3 Ml Ampul.neb 3 Ml NEB Q4HRS 14 10/22/19 Rx K-Tab ER (Potassium Chloride) 20 Meq Tablet.er 20 Meq PO DAILY 07/30/19 Reported Montelukast Sodium Tablet (Montelukast Sodium) 10 Mg Tablet 10 Mg PO HS 07/29/19 Reported Levocetirizine Dihydrochloride 5 Mg Tablet 5 Mg PO DAILY 07/29/19 Reported Amitriptyline Hcl 25 Mg Tablet 25 Mg PO QHS 07/29/19 Reported Aspir 81 (Aspirin) 81 Mg Tablet.dr 1 Tab PO DAILY 01/03/18 Reported Vitamin D3 (Cholecalciferol (Vitamin D3)) 1,000 Unit Tablet 1 Tab PO DAILY 01/02/18 Reported Torsemide 20 Mg Tablet 2 Tab PO DAILY 01/02/18 Reported Daliresp (Roflumilast) 500 Mcg Tablet 1 Tab PO DAILY 09/23/17 Reported Atorvastatin Calcium 20 Mg Tablet 20 Mg PO HS 09/23/17 Reported Requip (Ropinirole Hcl) 1 Mg Tablet 3 Tab PO QHS 09/23/17 Reported Proair Hfa Inhaler (Albuterol Sulfate) 8.5 Gm Hfa.aer.ad 1 Puff INH PRN Q6HRS PRN 09/23/17 Reported Levothyroxine Sodium 50 Mcg Tablet 1 Tab PO DAILY 09/23/17 Reported Impression . IMPRESSION: 1. Progressive dyspnea secondary to acute exacerbation of chronic obstructive pulmonary disease. 2. Chronic respiratory failure. 3. Abnormal CT revealing right upper lobe nodule, currently measuring 1 cm. Previous workup is nondiagnostic. 4. Chronic obstructive pulmonary disease. 5. Hyperlipidemia. 6. Viral tracheobronchitis Plan . Updated 07/28 Discussed with patient, avoid caffeinated beverages Sit up in the chair Continue current support UPDATED 07/27 Continue current support Office notes reviewed, follow-up with Dr. Tejeda once discharge Continues steroid LETICIA FORTUNE MD Jul 28, 2021 08:43
[2021-07-28] MEDS: ENTRESTO PO SCH (09:00)
[2021-07-28] MEDS: CHOLECALCIFEROL (VITAMIN D3) 1,000 UNIT TABLET PO SCH (09:10)
[2021-07-28] MEDS: SUCRALFATE 1 GM TABLET. PO SCH ×4 (09:10→21:52)
[2021-07-28] MEDS: FERROUS SULFATE 325 MG TABLET. PO SCH (09:10)
[2021-07-28] MEDS: CETIRIZINE HCL 10 MG TABLET. PO SCH (09:10)
[2021-07-28] MEDS: TORSEMIDE 20 MG TABLET. PO SCH (09:10)
[2021-07-28] MEDS: GABAPENTIN 100 MG CAPSULE. PO SCH ×3 (09:10→21:52)
[2021-07-28] MEDS: CLOPIDOGREL BISULFATE 75 MG TABLET PO SCH (09:10)
[2021-07-28] MEDS: ROFLUMILAST 500 MCG TABLET. PO SCH (09:10)
[2021-07-28] MEDS: SPIRONOLACTONE 25 MG TABLET PO SCH (09:11)
[2021-07-28] MEDS: PANTOPRAZOLE 40 MG TABLET.DR. PO SCH (09:11)
[2021-07-28] MEDS: METOPROLOL SUCC 24HR ER 25 MG TAB.ER.24H. PO SCH (09:11)
[2021-07-28] MEDS: ENOXAPARIN 40 MG/0.4 ML SYRINGE. SQ SCH (09:12)
[2021-07-28] MEDS: ALLOPURINOL 300 MG TABLET. PO SCH (09:12)
[2021-07-28] MEDS: LACTOBACILLUS RHAMNOSUS GG 1 CAPSULE. PO SCH ×2 (09:12→21:52)
[2021-07-28] MEDS: methylPREDNISolone SOD SUCC PF 125 MG/2 ML VIAL. IV SCH ×2 (09:12→21:52)
[2021-07-28] MEDS: DOXYCYCLINE HYCLATE 100 MG TABLET PO SCH ×2 (09:12→21:52)
[2021-07-28] MEDS: ASPIRIN ENTERIC COATED 81 MG TABLET.DR. PO SCH (09:12)
[2021-07-28 11:00] VITALS: BP 94/55
--- NOTE | 2021-07-28 12:02 | PDOC ---
[employer] PROGRESS NOTE Date of Service DOS: DATE: 07/28/21 TIME: 11:53 Chief Complaint Chief Complaint End-stage COPD Exacerbation Respiratory Failure CAD CHF diabetes, hypertension hyperlipidemia hypothyroidism AICD Hx left shoulder surgery, Hx tobacco abuse (quit 3 years ago) LAILA MDD History of Present Illness History of Present Illness 07/28 Pt seen and examined Chart reviewed No acute overnight events noted Pt still audibly wheezing and SOA Pt is satting ~98 on 3L by NUZHAT DWRN and HEIKE 07/27 Patient seen and examined at bedside Charts reviewed No acute overnight events Pt visibly dyspneic and coughing,currently on 3L by NUZHAT Discussed case with RN and HEIKE Vitals/I&O Vitals/I&O: Vital Signs Date Time Temp Pulse Resp B/P (MAP) Pulse Ox O2 Delivery O2 Flow Rate FiO2 07/28/21 11:37 98 Nasal Cannula 3.0 07/28/21 11:00 97.9 98 19 94/55 (68) 97.9 I & O 07/27/21 07/27/21 07/28/21 15:00 23:00 07:00 Intake Total 500 ml 360 ml 640 ml Output Total 900 ml Balance 500 ml 360 ml -260 ml Physical Exam General: Alert, Oriented X3, Cooperative Heart: Regular rate, Normal S1, Normal S2 Lungs: Wheezing Abdomen: Normal bowel sounds, Soft Extremities: No cyanosis, No edema Skin: No rashes, No breakdown Labs Labs: Laboratory Tests Test 07/28/21 03:30 07/28/21 07:10 Urine Collection Type Void Urine Color Yellow Urine Clarity Clear Urine pH 5.5 (<5.0-8.0) Urine Specific [place] <=1.005 (1.000-1.030) Urine Protein Negative mg/dL (NEG-TRACE) Urine Glucose (UA) Negative mg/dL (NEG) Urine Ketones (Stick) Negative mg/dL (NEG) Urine Blood Negative (NEG) Urine Nitrite Negative (NEG) Urine Bilirubin Negative (NEG) Urine Urobilinogen Dipstick 0.2 mg/dL (0.2 mg/dL) Urine Leukocyte Esterase Negative (NEG) Urine RBC 0 /HPF (0-2) Urine WBC Rare /HPF (0-4) Urine Squamous Epithelial Cells Few /LPF Urine Bacteria 0 /HPF (0-FEW) Urine Mucus Slight /LPF White Blood Count 13.9 x10^3/uL (4.0-11.0) Red Blood Count 2.89 x10^6/uL (3.50-5.40) Hemoglobin 8.6 g/dL (12.0-15.5) Hematocrit 27.1 % (36.0-47.0) Mean Corpuscular Volume 94 fL (79-100) Mean Corpuscular Hemoglobin 30 pg (25-35) Mean Corpuscular Hemoglobin Concent 32 g/dL (31-37) Red Cell Distribution Width 18.2 % (11.5-14.5) Platelet Count 441 x10^3/uL (140-400) Neutrophils (%) (Auto) 95 % (31-73) Lymphocytes (%) (Auto) 4 % (24-48) Monocytes (%) (Auto) 2 % (0-9) Eosinophils (%) (Auto) 0 % (0-3) Basophils (%) (Auto) 0 % (0-3) Neutrophils # (Auto) 13.2 x10^3/uL (1.8-7.7) Lymphocytes # (Auto) 0.5 x10^3/uL (1.0-4.8) Monocytes # (Auto) 0.3 x10^3/uL (0.0-1.1) Eosinophils # (Auto) 0.0 x10^3/uL (0.0-0.7) Basophils # (Auto) 0.0 x10^3/uL (0.0-0.2) Sodium Level 139 mmol/L (136-145) Potassium Level 6.0 mmol/L (3.5-5.1) Chloride Level 101 mmol/L (98-107) Carbon Dioxide Level 32 mmol/L (21-32) Anion Gap 6 (6-14) Blood Urea Nitrogen 26 mg/dL (7-20) Creatinine 1.3 mg/dL (0.6-1.0) Estimated GFR (Cockcroft-Gault) 40.9 Glucose Level 152 mg/dL (70-99) Calcium Level 9.1 mg/dL (8.5-10.1) Review of Systems Review of Systems: ROS negative Assessment and Plan Assessmemt and Plan Problems Medical Problems: (1) COPD exacerbation Status: Acute End-stage COPD Exacerbation Respiratory Failure CAD CHF diabetes hypertension hyperlipidemia hypothyroidism AICD Hx left shoulder surgery, Hx tobacco abuse (quit 3 years ago) LAILA MDD Plan Pulmonology input appreciated Pulmonology evaluating RUL nodule, plan for outpatient follow up with Dr. Tejeda Continue PRN Robitussen with codeine Continue monitoring on telemetry Continue IV steroids Continue antibiotics Continue breathing treatments Titrate oxygen PRN Encourage p.o. intake Restarted home meds as indicated DVT prophylaxis PT/OT Full code Discharge disposition pending Comment Review of Relevant I have reviewed the following items jon (where applicable) has been applied. Medications: Current Medications Medications (Trade) Dose Ordered Sig/Keshav Route PRN Reason Start Time Stop Time Status Last Admin Dose Admin Lactobacillus Rhamnosus (Culturelle) 1 cap BID PO 07/27/21 21:00 07/28/21 09:12 Justifications for Admission Other Justification MALFUNCTIONING AICJULIANA SALGUERO III DO Jul 28, 2021 12:02
[2021-07-28 15:00] VITALS: BP 105/52
--- NOTE | 2021-07-28 15:33 | NUR ---
SS following up with discharge planning. SS reviewed pt chart and discussed with pt RN. Pt is currently requiring oxygen at three liters nasal canula. Pt has home oxygen. COVID19 negative. Pt on IV Solu Medrol. PT/OT ordered. SS will continue to follow for discharge planning.
[2021-07-28] MEDS ORDERED: SODIUM POLYSTYRENE SULFON/SORB 15 GM/60 ML ORAL.SUSP. PO ONE (17:00)
[2021-07-28 19:40] VITALS: BP 103/53
[2021-07-28] MEDS: ATORVASTATIN CALCIUM 20 MG TABLET PO SCH (21:52)
[2021-07-28] MEDS: AMITRIPTYLINE HCL 25 MG TABLET. PO SCH (21:52)
[2021-07-28] MEDS: MONTELUKAST SODIUM 10 MG TABLET. PO SCH (21:52)
[2021-07-28] MEDS: rOPINIRole 1 MG TABLET. PO SCH (21:52)
[2021-07-28 22:25] VITALS: BP 108/53
[2021-07-29 03:05] VITALS: BP 97/51
[2021-07-29 05:20] LABS: BASO % 0 % (0-3); EOS % 0 % (0-3); HEMATOCRIT 25.4 % (36.0-47.0); HEMOGLOBIN 8.2 g/dL (12.0-15.5); LYMPH # 0.9 x10^3/uL (1.0-4.8); LYMPH % 8 % (24-48); MEAN CORPUSCULAR HEMOGLOBIN 30 pg (25-35); MEAN CORPUSCULAR HGB CONC 32 g/dL (31-37); MEAN CORPUSCULAR VOLUME 92 fL (79-100); MONO # 0.7 x10^3/uL (0.0-1.1); MONO % 6 % (0-9); NEUT # 9.1 x10^3/uL (1.8-7.7); NEUT % 86 % (31-73); PLATELET COUNT 385 x10^3/uL (140-400); RED BLOOD COUNT 2.75 x10^6/uL (3.50-5.40); RED CELL DISTRIBUTION WIDTH 17.5 % (11.5-14.5); WHITE BLOOD COUNT 10.7 x10^3/uL (4.0-11.0)
[2021-07-29 06:04] LABS: CALCIUM 8.8 mg/dL (8.5-10.1); CREATININE 1.4 mg/dL (0.6-1.0); GFR 37.5; POTASSIUM 4.2 mmol/L (3.5-5.1)
[2021-07-29] MEDS: LEVOTHYROXINE 50 MCG TABLET PO SCH (06:18)
[2021-07-29 07:00] VITALS: BP 111/54
[2021-07-29] MEDS: BUDESONIDE 0.5 MG/2 ML NEBU. NEB SCH ×2 (07:24→19:48)
[2021-07-29] MEDS: IPRATRPIUM/ALBUTEROL 0.5/2.5MG 3 ML NEBU. NEB SCH ×4 (07:24→19:47)
[2021-07-29] MEDS: ASPIRIN ENTERIC COATED 81 MG TABLET.DR. PO SCH (09:00)
--- NOTE | 2021-07-29 10:00 | PDOC ---
PULMONARY PROGRESS NOTES DATE: 07/29/21 TIME: 09:59 Subjective Patient continues to wheeze, continue cough Vitals Vital Signs Date Time Temp Pulse Resp B/P (MAP) Pulse Ox O2 Delivery O2 Flow Rate FiO2 07/29/21 08:05 Nasal Cannula 3.0 07/29/21 07:25 100 07/29/21 07:00 98.2 83 16 111/54 (73) 98.2 ROS: No Nausea, No Chest Pain, No Abdominal Pain, No Increase Cough General: Alert, Oriented X4, No acute distress HEENT: Other (Audible wheezing) Lungs: Wheezing Cardiovascular: S1, S2 Abdomen: Soft, Non-tender Extremities: No Edema Labs Laboratory Tests Test 07/28/21 03:30 07/28/21 07:10 07/29/21 04:10 Urine Collection Type Void Urine Color Yellow Urine Clarity Clear Urine pH 5.5 (<5.0-8.0) Urine Specific [place] <=1.005 (1.000-1.030) Urine Protein Negative mg/dL (NEG-TRACE) Urine Glucose (UA) Negative mg/dL (NEG) Urine Ketones (Stick) Negative mg/dL (NEG) Urine Blood Negative (NEG) Urine Nitrite Negative (NEG) Urine Bilirubin Negative (NEG) Urine Urobilinogen Dipstick 0.2 mg/dL (0.2 mg/dL) Urine Leukocyte Esterase Negative (NEG) Urine RBC 0 /HPF (0-2) Urine WBC Rare /HPF (0-4) Urine Squamous Epithelial Cells Few /LPF Urine Bacteria 0 /HPF (0-FEW) Urine Mucus Slight /LPF White Blood Count 13.9 x10^3/uL (4.0-11.0) 10.7 x10^3/uL (4.0-11.0) Red Blood Count 2.89 x10^6/uL (3.50-5.40) 2.75 x10^6/uL (3.50-5.40) Hemoglobin 8.6 g/dL (12.0-15.5) 8.2 g/dL (12.0-15.5) Hematocrit 27.1 % (36.0-47.0) 25.4 % (36.0-47.0) Mean Corpuscular Volume 94 fL (79-100) 92 fL (79-100) Mean Corpuscular Hemoglobin 30 pg (25-35) 30 pg (25-35) Mean Corpuscular Hemoglobin Concent 32 g/dL (31-37) 32 g/dL (31-37) Red Cell Distribution Width 18.2 % (11.5-14.5) 17.5 % (11.5-14.5) Platelet Count 441 x10^3/uL (140-400) 385 x10^3/uL (140-400) Neutrophils (%) (Auto) 95 % (31-73) 86 % (31-73) Lymphocytes (%) (Auto) 4 % (24-48) 8 % (24-48) Monocytes (%) (Auto) 2 % (0-9) 6 % (0-9) Eosinophils (%) (Auto) 0 % (0-3) 0 % (0-3) Basophils (%) (Auto) 0 % (0-3) 0 % (0-3) Neutrophils # (Auto) 13.2 x10^3/uL (1.8-7.7) 9.1 x10^3/uL (1.8-7.7) Lymphocytes # (Auto) 0.5 x10^3/uL (1.0-4.8) 0.9 x10^3/uL (1.0-4.8) Monocytes # (Auto) 0.3 x10^3/uL (0.0-1.1) 0.7 x10^3/uL (0.0-1.1) Eosinophils # (Auto) 0.0 x10^3/uL (0.0-0.7) 0.0 x10^3/uL (0.0-0.7) Basophils # (Auto) 0.0 x10^3/uL (0.0-0.2) 0.0 x10^3/uL (0.0-0.2) Sodium Level 139 mmol/L (136-145) 140 mmol/L (136-145) Potassium Level 6.0 mmol/L (3.5-5.1) 4.2 mmol/L (3.5-5.1) Chloride Level 101 mmol/L (98-107) 98 mmol/L (98-107) Carbon Dioxide Level 32 mmol/L (21-32) 38 mmol/L (21-32) Anion Gap 6 (6-14) 4 (6-14) Blood Urea Nitrogen 26 mg/dL (7-20) 37 mg/dL (7-20) Creatinine 1.3 mg/dL (0.6-1.0) 1.4 mg/dL (0.6-1.0) Estimated GFR (Cockcroft-Gault) 40.9 37.5 Glucose Level 152 mg/dL (70-99) 123 mg/dL (70-99) Calcium Level 9.1 mg/dL (8.5-10.1) 8.8 mg/dL (8.5-10.1) Laboratory Tests Test 07/29/21 04:10 White Blood Count 10.7 x10^3/uL (4.0-11.0) Red Blood Count 2.75 x10^6/uL (3.50-5.40) Hemoglobin 8.2 g/dL (12.0-15.5) Hematocrit 25.4 % (36.0-47.0) Mean Corpuscular Volume 92 fL (79-100) Mean Corpuscular Hemoglobin 30 pg (25-35) Mean Corpuscular Hemoglobin Concent 32 g/dL (31-37) Red Cell Distribution Width 17.5 % (11.5-14.5) Platelet Count 385 x10^3/uL (140-400) Neutrophils (%) (Auto) 86 % (31-73) Lymphocytes (%) (Auto) 8 % (24-48) Monocytes (%) (Auto) 6 % (0-9) Eosinophils (%) (Auto) 0 % (0-3) Basophils (%) (Auto) 0 % (0-3) Neutrophils # (Auto) 9.1 x10^3/uL (1.8-7.7) Lymphocytes # (Auto) 0.9 x10^3/uL (1.0-4.8) Monocytes # (Auto) 0.7 x10^3/uL (0.0-1.1) Eosinophils # (Auto) 0.0 x10^3/uL (0.0-0.7) Basophils # (Auto) 0.0 x10^3/uL (0.0-0.2) Sodium Level 140 mmol/L (136-145) Potassium Level 4.2 mmol/L (3.5-5.1) Chloride Level 98 mmol/L (98-107) Carbon Dioxide Level 38 mmol/L (21-32) Anion Gap 4 (6-14) Blood Urea Nitrogen 37 mg/dL (7-20) Creatinine 1.4 mg/dL (0.6-1.0) Estimated GFR (Cockcroft-Gault) 37.5 Glucose Level 123 mg/dL (70-99) Calcium Level 8.8 mg/dL (8.5-10.1) Medications Active Scripts Medications Dose Route/Sig Max Daily Dose Days Date Category Ferrous Sulfate 325 Mg Tablet 1 Tab PO DAILY 07/26/21 Reported Sucralfate 1 Gm Tablet 1 Tab PO QID 07/26/21 Reported Clopidogrel (Clopidogrel Bisulfate) 75 Mg Tablet 1 Tab PO DAILY 07/20/21 Reported Methocarbamol 500 Mg Tablet 1,000 Mg PO PRN BID PRN 05/25/21 Reported Spironolactone 25 Mg Tablet 25 Mg PO DAILY 05/19/21 Reported Metoprolol Succinate ( Xl ) (Metoprolol Succinate) 25 Mg Tab.er.24h 25 Mg PO DAILY 05/19/21 Reported Voltaren Arthritis Pain (Diclofenac Sodium) 20 Gm Gel..gram. 20 Gm TP PRN PRN 05/19/21 Reported Entresto 24 mg-26 mg Tablet (Sacubitril/Valsartan) 1 Each Tablet 1 Each PO BID 30 11/19/20 Rx Gabapentin (Gabapentin) 100 Mg Capsule 100 Mg PO TID 10/18/20 Reported Alendronate Sodium 70 Mg Tablet 1 Tab PO WEEKLY 10/16/20 Reported Allopurinol 300 Mg Tablet 1 Tab PO DAILY 10/16/20 Reported Trelegy Ellipta 100-62.5-25 (Fluticasone/Umeclidin/Vilanter) 1 Each Blst.w.dev 1 Each IH DAILY 03/17/20 Reported Prilosec Otc (Omeprazole Magnesium) 20 Mg Tablet.dr 40 Mg PO DAILY 03/17/20 Reported Duoneb 0.5-3(2.5) Mg/3 Ml (Albuterol/Ipratropium) 3 Ml Ampul.neb 3 Ml NEB Q4HRS 14 10/22/19 Rx K-Tab ER (Potassium Chloride) 20 Meq Tablet.er 20 Meq PO DAILY 07/30/19 Reported Montelukast Sodium Tablet (Montelukast Sodium) 10 Mg Tablet 10 Mg PO HS 07/29/19 Reported Levocetirizine Dihydrochloride 5 Mg Tablet 5 Mg PO DAILY 07/29/19 Reported Amitriptyline Hcl 25 Mg Tablet 25 Mg PO QHS 07/29/19 Reported Aspir 81 (Aspirin) 81 Mg Tablet. 1 Tab PO DAILY 01/03/18 Reported Vitamin D3 (Cholecalciferol (Vitamin D3)) 1,000 Unit Tablet 1 Tab PO DAILY 01/02/18 Reported Torsemide 20 Mg Tablet 2 Tab PO DAILY 01/02/18 Reported Daliresp (Roflumilast) 500 Mcg Tablet 1 Tab PO DAILY 09/23/17 Reported Atorvastatin Calcium 20 Mg Tablet 20 Mg PO HS 09/23/17 Reported Requip (Ropinirole Hcl) 1 Mg Tablet 3 Tab PO QHS 09/23/17 Reported Proair Hfa Inhaler (Albuterol Sulfate) 8.5 Gm Hfa.aer.ad 1 Puff INH PRN Q6HRS PRN 09/23/17 Reported Levothyroxine Sodium 50 Mcg Tablet 1 Tab PO DAILY 09/23/17 Reported Impression . IMPRESSION: 1. Progressive dyspnea secondary to acute exacerbation of chronic obstructive pulmonary disease. 2. Chronic respiratory failure. 3. Abnormal CT revealing right upper lobe nodule, currently measuring 1 cm. Previous workup is nondiagnostic. 4. Chronic obstructive pulmonary disease. 5. Hyperlipidemia. 6. Viral tracheobronchitis Plan . Updated 07/29 Patient currently on Solu-Medrol 125 mg twice daily Add Pepcid 20 mg twice daily Suspect wheezing related to viral tracheobronchitis, will last for several days to week, Possible discharge in the next 24 to 48 hours updated 07/28 Discussed with patient, avoid caffeinated beverages Sit up in the chair Continue current support UPDATED 07/27 Continue current support Office notes reviewed, follow-up with Dr. Tejeda once discharge Continues steroid LETICIA FORTUNE MD Jul 29, 2021 10:00
[2021-07-29] MEDS: DOXYCYCLINE HYCLATE 100 MG TABLET PO SCH ×2 (10:17→21:16)
[2021-07-29] MEDS: FERROUS SULFATE 325 MG TABLET. PO SCH (10:17)
[2021-07-29] MEDS: PANTOPRAZOLE 40 MG TABLET.DR. PO SCH (10:17)
[2021-07-29] MEDS: GABAPENTIN 100 MG CAPSULE. PO SCH ×3 (10:17→21:16)
[2021-07-29] MEDS: CETIRIZINE HCL 10 MG TABLET. PO SCH (10:17)
[2021-07-29] MEDS: LACTOBACILLUS RHAMNOSUS GG 1 CAPSULE. PO SCH ×2 (10:17→21:16)
[2021-07-29] MEDS: ROFLUMILAST 500 MCG TABLET. PO SCH (10:17)
[2021-07-29] MEDS: CLOPIDOGREL BISULFATE 75 MG TABLET PO SCH (10:17)
[2021-07-29] MEDS: TORSEMIDE 20 MG TABLET. PO SCH (10:17)
[2021-07-29] MEDS: CHOLECALCIFEROL (VITAMIN D3) 1,000 UNIT TABLET PO SCH (10:17)
[2021-07-29] MEDS: SUCRALFATE 1 GM TABLET. PO SCH ×4 (10:17→21:16)
[2021-07-29] MEDS: METOPROLOL SUCC 24HR ER 25 MG TAB.ER.24H. PO SCH (10:18)
[2021-07-29] MEDS: ENOXAPARIN 40 MG/0.4 ML SYRINGE. SQ SCH (10:18)
[2021-07-29] MEDS: ALLOPURINOL 300 MG TABLET. PO SCH (10:18)
[2021-07-29] MEDS: SPIRONOLACTONE 25 MG TABLET PO SCH (10:20)
[2021-07-29 11:00] VITALS: BP 89/51
--- NOTE | 2021-07-29 11:00 | PDOC ---
[employer] PROGRESS NOTE Date of Service DOS: DATE: 07/29/21 TIME: 10:54 Chief Complaint Chief Complaint End-stage COPD Exacerbation Bronchitis Intractable cough Respiratory Failure CAD CHF diabetes hypertension hyperlipidemia hypothyroidism AICD Hx left shoulder surgery, Hx tobacco abuse (quit 3 years ago) LAILA MDD History of Present Illness History of Present Illness 07/29 Patient seen and examined at bedside Chart reviewed No acute overnight events Pt's wheezing slightly improved, though pt still reports not feeling well, SOA, and coughing Pt satting ~98 on 3L by NUZHAT Discussed with RN and pt examined with HEIKE 07/28 Pt seen and examined Chart reviewed No acute overnight events noted Pt still audibly wheezing and SOA Pt is satting ~98 on 3L by NUZHAT NICHOLSONRN and HEIKE 07/27 Patient seen and examined at bedside Charts reviewed No acute overnight events Pt visibly dyspneic and coughing,currently on 3L by NUZHAT Discussed case with RN and HEIKE Vitals/I&O Vitals/I&O: Vital Signs Date Time Temp Pulse Resp B/P (MAP) Pulse Ox O2 Delivery O2 Flow Rate FiO2 07/29/21 10:18 83 111/54 07/29/21 08:05 Nasal Cannula 3.0 07/29/21 07:25 100 07/29/21 07:00 98.2 16 98.2 I & O 07/28/21 07/28/21 07/29/21 15:00 23:00 07:00 Intake Total 700 ml 300 ml 400 ml Output Total 1150 ml 300 ml Balance 700 ml -850 ml 100 ml Physical Exam General: Alert, Oriented X3, Cooperative Heart: Regular rate, Normal S1, Normal S2 Lungs: Wheezing Abdomen: Normal bowel sounds, Soft Extremities: No cyanosis, No edema Skin: No rashes, No breakdown Labs Labs: Laboratory Tests Test 07/29/21 04:10 White Blood Count 10.7 x10^3/uL (4.0-11.0) Red Blood Count 2.75 x10^6/uL (3.50-5.40) Hemoglobin 8.2 g/dL (12.0-15.5) Hematocrit 25.4 % (36.0-47.0) Mean Corpuscular Volume 92 fL (79-100) Mean Corpuscular Hemoglobin 30 pg (25-35) Mean Corpuscular Hemoglobin Concent 32 g/dL (31-37) Red Cell Distribution Width 17.5 % (11.5-14.5) Platelet Count 385 x10^3/uL (140-400) Neutrophils (%) (Auto) 86 % (31-73) Lymphocytes (%) (Auto) 8 % (24-48) Monocytes (%) (Auto) 6 % (0-9) Eosinophils (%) (Auto) 0 % (0-3) Basophils (%) (Auto) 0 % (0-3) Neutrophils # (Auto) 9.1 x10^3/uL (1.8-7.7) Lymphocytes # (Auto) 0.9 x10^3/uL (1.0-4.8) Monocytes # (Auto) 0.7 x10^3/uL (0.0-1.1) Eosinophils # (Auto) 0.0 x10^3/uL (0.0-0.7) Basophils # (Auto) 0.0 x10^3/uL (0.0-0.2) Sodium Level 140 mmol/L (136-145) Potassium Level 4.2 mmol/L (3.5-5.1) Chloride Level 98 mmol/L (98-107) Carbon Dioxide Level 38 mmol/L (21-32) Anion Gap 4 (6-14) Blood Urea Nitrogen 37 mg/dL (7-20) Creatinine 1.4 mg/dL (0.6-1.0) Estimated GFR (Cockcroft-Gault) 37.5 Glucose Level 123 mg/dL (70-99) Calcium Level 8.8 mg/dL (8.5-10.1) Review of Systems Review of Systems: ROS negative Assessment and Plan Assessmemt and Plan Problems Medical Problems: (1) COPD exacerbation Status: Acute End-stage COPD Exacerbation Bronchitis Intractable cough Respiratory Failure Hyperkalemia- currently resolved CAD CHF diabetes hypertension hyperlipidemia hypothyroidism AICD Hx left shoulder surgery, Hx tobacco abuse (quit 3 years ago) LAILA MDD Plan Pulmonology input appreciated Pulmonology evaluating RUL nodule, plan for outpatient follow up with Dr. Tejeda Hyperkalemia resolved for now (potassium at 4.2 s/p kayexalate) Continue PRN Robitussen with codeine Continue monitoring on telemetry Continue IV steroids Continue antibiotics Continue breathing treatments Titrate oxygen PRN Encourage p.o. intake Restarted home meds as indicated DVT prophylaxis PT/OT Full code Discharge disposition pending Long-term prognosis guarded due to near end-stage COPD (she quit smoking 3 years ago) Comment Review of Relevant I have reviewed the following items jon (where applicable) has been applied. Medications: Current Medications Medications (Trade) Dose Ordered Sig/Keshav Route PRN Reason Start Time Stop Time Status Last Admin Dose Admin Sodium Polystyrene Sulfonate (Kayexalate) 15 gm 1X ONCE PO 07/28/21 17:00 07/28/21 17:01 DC 07/28/21 17:25 Spironolactone (Aldactone) 25 mg DAILY PO 07/29/21 10:30 07/29/21 10:20 Justifications for Admission Other Justification MALFUNCTIONING JULIANA RAO III DO Jul 29, 2021 11:00
[2021-07-29] MEDS: methylPREDNISolone SOD SUCC PF 125 MG/2 ML VIAL. IV SCH ×2 (11:58→21:15)
--- NOTE | 2021-07-29 14:53 | NUR ---
SS following up with discharge planning. SS reviewed pt chart and discussed with pt RN. Pt is currently requiring oxygen at three liters nasal canula. Pt has home oxygen. COVID19 negative. Pt on IV Solu Medrol. PT/OT ordered and pt declining at this time. Pt has had previous services with [facility], ; fax [phone]. SS will continue to follow for discharge planning.
[2021-07-29 15:00] VITALS: BP 94/52
[2021-07-29 19:51] VITALS: BP 104/51
[2021-07-29] MEDS: ENTRESTO PO SCH (21:00)
[2021-07-29] MEDS: FAMOTIDINE 20 MG TABLET. PO SCH (21:15)
[2021-07-29] MEDS: MONTELUKAST SODIUM 10 MG TABLET. PO SCH (21:16)
[2021-07-29] MEDS: AMITRIPTYLINE HCL 25 MG TABLET. PO SCH (21:16)
[2021-07-29] MEDS: ATORVASTATIN CALCIUM 20 MG TABLET PO SCH (21:16)
[2021-07-29] MEDS: rOPINIRole 1 MG TABLET. PO SCH (21:16)
[2021-07-29] MEDS: guaiFENesin/CODEINE 100mg/10mg 5 ML LIQUID PO PRN (21:17)
[2021-07-29 22:50] VITALS: BP 123/59
[2021-07-30 02:59] VITALS: BP 116/58
[2021-07-30 04:54] LABS: BASO % 0 % (0-3); EOS % 0 % (0-3); HEMATOCRIT 24.7 % (36.0-47.0); HEMOGLOBIN 8.3 g/dL (12.0-15.5); LYMPH # 0.5 x10^3/uL (1.0-4.8); LYMPH % 6 % (24-48); MEAN CORPUSCULAR HEMOGLOBIN 31 pg (25-35); MEAN CORPUSCULAR HGB CONC 34 g/dL (31-37); MEAN CORPUSCULAR VOLUME 92 fL (79-100); MONO # 0.2 x10^3/uL (0.0-1.1); MONO % 3 % (0-9); NEUT # 7.5 x10^3/uL (1.8-7.7); NEUT % 91 % (31-73); PLATELET COUNT 361 x10^3/uL (140-400); RED BLOOD COUNT 2.69 x10^6/uL (3.50-5.40); RED CELL DISTRIBUTION WIDTH 16.7 % (11.5-14.5); WHITE BLOOD COUNT 8.3 x10^3/uL (4.0-11.0)
[2021-07-30 05:08] LABS: CALCIUM 8.8 mg/dL (8.5-10.1); CREATININE 1.3 mg/dL (0.6-1.0); GFR 40.9; POTASSIUM 4.5 mmol/L (3.5-5.1)
[2021-07-30] MEDS: LEVOTHYROXINE 50 MCG TABLET PO SCH (05:57)
[2021-07-30 07:00] VITALS: BP 107/32
[2021-07-30] MEDS: IPRATRPIUM/ALBUTEROL 0.5/2.5MG 3 ML NEBU. NEB SCH ×4 (07:50→18:08)
[2021-07-30] MEDS: BUDESONIDE 0.5 MG/2 ML NEBU. NEB SCH ×2 (07:50→18:09)
[2021-07-30] MEDS: ROFLUMILAST 500 MCG TABLET. PO SCH (08:56)
[2021-07-30] MEDS: METOPROLOL SUCC 24HR ER 25 MG TAB.ER.24H. PO SCH (08:56)
[2021-07-30] MEDS: SPIRONOLACTONE 25 MG TABLET PO SCH (08:56)
[2021-07-30] MEDS: CHOLECALCIFEROL (VITAMIN D3) 1,000 UNIT TABLET PO SCH (08:56)
[2021-07-30] MEDS: ALLOPURINOL 300 MG TABLET. PO SCH (08:56)
[2021-07-30] MEDS: ASPIRIN ENTERIC COATED 81 MG TABLET.DR. PO SCH (08:56)
[2021-07-30] MEDS: TORSEMIDE 20 MG TABLET. PO SCH (08:57)
[2021-07-30] MEDS: CETIRIZINE HCL 10 MG TABLET. PO SCH (08:57)
[2021-07-30] MEDS: guaiFENesin/CODEINE 100mg/10mg 5 ML LIQUID PO PRN (08:57)
[2021-07-30] MEDS: DOXYCYCLINE HYCLATE 100 MG TABLET PO SCH ×2 (08:57→23:17)
[2021-07-30] MEDS: GABAPENTIN 100 MG CAPSULE. PO SCH ×3 (08:57→23:18)
[2021-07-30] MEDS: PANTOPRAZOLE 40 MG TABLET.DR. PO SCH (08:57)
[2021-07-30] MEDS: FERROUS SULFATE 325 MG TABLET. PO SCH (08:57)
[2021-07-30] MEDS: LACTOBACILLUS RHAMNOSUS GG 1 CAPSULE. PO SCH ×2 (08:57→23:18)
[2021-07-30] MEDS: CLOPIDOGREL BISULFATE 75 MG TABLET PO SCH (08:57)
[2021-07-30] MEDS: methylPREDNISolone SOD SUCC PF 125 MG/2 ML VIAL. IV SCH ×2 (08:57→23:17)
[2021-07-30] MEDS: FAMOTIDINE 20 MG TABLET. PO SCH ×2 (08:57→21:00)
[2021-07-30] MEDS: ENOXAPARIN 40 MG/0.4 ML SYRINGE. SQ SCH (08:58)
--- NOTE | 2021-07-30 09:22 | PDOC ---
PULMONARY PROGRESS NOTES DATE: 07/30/21 TIME: 09:22 Subjective Patient does not feel better, she thinks she is worse, Vitals Vital Signs Date Time Temp Pulse Resp B/P (MAP) Pulse Ox O2 Delivery O2 Flow Rate FiO2 07/30/21 08:56 73 107/32 07/30/21 07:50 98 Nasal Cannula 3.0 07/30/21 07:00 98.4 16 98.4 ROS: No Nausea, No Chest Pain, No Abdominal Pain, No Increase Cough General: Alert, Oriented X4, No acute distress HEENT: Other (Audible wheezing) Lungs: Wheezing Cardiovascular: S1, S2 Abdomen: Soft, Non-tender Extremities: No Edema Labs Laboratory Tests Test 07/29/21 04:10 07/30/21 04:15 White Blood Count 10.7 x10^3/uL (4.0-11.0) 8.3 x10^3/uL (4.0-11.0) Red Blood Count 2.75 x10^6/uL (3.50-5.40) 2.69 x10^6/uL (3.50-5.40) Hemoglobin 8.2 g/dL (12.0-15.5) 8.3 g/dL (12.0-15.5) Hematocrit 25.4 % (36.0-47.0) 24.7 % (36.0-47.0) Mean Corpuscular Volume 92 fL (79-100) 92 fL (79-100) Mean Corpuscular Hemoglobin 30 pg (25-35) 31 pg (25-35) Mean Corpuscular Hemoglobin Concent 32 g/dL (31-37) 34 g/dL (31-37) Red Cell Distribution Width 17.5 % (11.5-14.5) 16.7 % (11.5-14.5) Platelet Count 385 x10^3/uL (140-400) 361 x10^3/uL (140-400) Neutrophils (%) (Auto) 86 % (31-73) 91 % (31-73) Lymphocytes (%) (Auto) 8 % (24-48) 6 % (24-48) Monocytes (%) (Auto) 6 % (0-9) 3 % (0-9) Eosinophils (%) (Auto) 0 % (0-3) 0 % (0-3) Basophils (%) (Auto) 0 % (0-3) 0 % (0-3) Neutrophils # (Auto) 9.1 x10^3/uL (1.8-7.7) 7.5 x10^3/uL (1.8-7.7) Lymphocytes # (Auto) 0.9 x10^3/uL (1.0-4.8) 0.5 x10^3/uL (1.0-4.8) Monocytes # (Auto) 0.7 x10^3/uL (0.0-1.1) 0.2 x10^3/uL (0.0-1.1) Eosinophils # (Auto) 0.0 x10^3/uL (0.0-0.7) 0.0 x10^3/uL (0.0-0.7) Basophils # (Auto) 0.0 x10^3/uL (0.0-0.2) 0.0 x10^3/uL (0.0-0.2) Sodium Level 140 mmol/L (136-145) 138 mmol/L (136-145) Potassium Level 4.2 mmol/L (3.5-5.1) 4.5 mmol/L (3.5-5.1) Chloride Level 98 mmol/L (98-107) 98 mmol/L (98-107) Carbon Dioxide Level 38 mmol/L (21-32) 40 mmol/L (21-32) Anion Gap 4 (6-14) 0 (6-14) Blood Urea Nitrogen 37 mg/dL (7-20) 34 mg/dL (7-20) Creatinine 1.4 mg/dL (0.6-1.0) 1.3 mg/dL (0.6-1.0) Estimated GFR (Cockcroft-Gault) 37.5 40.9 Glucose Level 123 mg/dL (70-99) 192 mg/dL (70-99) Calcium Level 8.8 mg/dL (8.5-10.1) 8.8 mg/dL (8.5-10.1) Laboratory Tests Test 07/30/21 04:15 White Blood Count 8.3 x10^3/uL (4.0-11.0) Red Blood Count 2.69 x10^6/uL (3.50-5.40) Hemoglobin 8.3 g/dL (12.0-15.5) Hematocrit 24.7 % (36.0-47.0) Mean Corpuscular Volume 92 fL (79-100) Mean Corpuscular Hemoglobin 31 pg (25-35) Mean Corpuscular Hemoglobin Concent 34 g/dL (31-37) Red Cell Distribution Width 16.7 % (11.5-14.5) Platelet Count 361 x10^3/uL (140-400) Neutrophils (%) (Auto) 91 % (31-73) Lymphocytes (%) (Auto) 6 % (24-48) Monocytes (%) (Auto) 3 % (0-9) Eosinophils (%) (Auto) 0 % (0-3) Basophils (%) (Auto) 0 % (0-3) Neutrophils # (Auto) 7.5 x10^3/uL (1.8-7.7) Lymphocytes # (Auto) 0.5 x10^3/uL (1.0-4.8) Monocytes # (Auto) 0.2 x10^3/uL (0.0-1.1) Eosinophils # (Auto) 0.0 x10^3/uL (0.0-0.7) Basophils # (Auto) 0.0 x10^3/uL (0.0-0.2) Sodium Level 138 mmol/L (136-145) Potassium Level 4.5 mmol/L (3.5-5.1) Chloride Level 98 mmol/L (98-107) Carbon Dioxide Level 40 mmol/L (21-32) Anion Gap 0 (6-14) Blood Urea Nitrogen 34 mg/dL (7-20) Creatinine 1.3 mg/dL (0.6-1.0) Estimated GFR (Cockcroft-Gault) 40.9 Glucose Level 192 mg/dL (70-99) Calcium Level 8.8 mg/dL (8.5-10.1) Medications Active Scripts Medications Dose Route/Sig Max Daily Dose Days Date Category Ferrous Sulfate 325 Mg Tablet 1 Tab PO DAILY 07/26/21 Reported Sucralfate 1 Gm Tablet 1 Tab PO QID 07/26/21 Reported Clopidogrel (Clopidogrel Bisulfate) 75 Mg Tablet 1 Tab PO DAILY 07/20/21 Reported Methocarbamol 500 Mg Tablet 1,000 Mg PO PRN BID PRN 05/25/21 Reported Spironolactone 25 Mg Tablet 25 Mg PO DAILY 05/19/21 Reported Metoprolol Succinate ( Xl ) (Metoprolol Succinate) 25 Mg Tab.er.24h 25 Mg PO DAILY 05/19/21 Reported Voltaren Arthritis Pain (Diclofenac Sodium) 20 Gm Gel..gram. 20 Gm TP PRN PRN 05/19/21 Reported Entresto 24 mg-26 mg Tablet (Sacubitril/Valsartan) 1 Each Tablet 1 Each PO BID 30 11/19/20 Rx Gabapentin (Gabapentin) 100 Mg Capsule 100 Mg PO TID 10/18/20 Reported Alendronate Sodium 70 Mg Tablet 1 Tab PO WEEKLY 10/16/20 Reported Allopurinol 300 Mg Tablet 1 Tab PO DAILY 10/16/20 Reported Trelegy Ellipta 100-62.5-25 (Fluticasone/Umeclidin/Vilanter) 1 Each Blst.w.dev 1 Each IH DAILY 03/17/20 Reported Prilosec Otc (Omeprazole Magnesium) 20 Mg Tablet.dr 40 Mg PO DAILY 03/17/20 Reported Duoneb 0.5-3(2.5) Mg/3 Ml (Albuterol/Ipratropium) 3 Ml Ampul.neb 3 Ml NEB Q4HRS 14 10/22/19 Rx K-Tab ER (Potassium Chloride) 20 Meq Tablet.er 20 Meq PO DAILY 07/30/19 Reported Montelukast Sodium Tablet (Montelukast Sodium) 10 Mg Tablet 10 Mg PO HS 07/29/19 Reported Levocetirizine Dihydrochloride 5 Mg Tablet 5 Mg PO DAILY 07/29/19 Reported Amitriptyline Hcl 25 Mg Tablet 25 Mg PO QHS 07/29/19 Reported Aspir 81 (Aspirin) 81 Mg Tablet.dr 1 Tab PO DAILY 01/03/18 Reported Vitamin D3 (Cholecalciferol (Vitamin D3)) 1,000 Unit Tablet 1 Tab PO DAILY 01/02/18 Reported Torsemide 20 Mg Tablet 2 Tab PO DAILY 01/02/18 Reported Daliresp (Roflumilast) 500 Mcg Tablet 1 Tab PO DAILY 09/23/17 Reported Atorvastatin Calcium 20 Mg Tablet 20 Mg PO HS 09/23/17 Reported Requip (Ropinirole Hcl) 1 Mg Tablet 3 Tab PO QHS 09/23/17 Reported Proair Hfa Inhaler (Albuterol Sulfate) 8.5 Gm Hfa.aer.ad 1 Puff INH PRN Q6HRS PRN 09/23/17 Reported Levothyroxine Sodium 50 Mcg Tablet 1 Tab PO DAILY 09/23/17 Reported Impression . IMPRESSION: 1. Progressive dyspnea secondary to acute exacerbation of chronic obstructive pulmonary disease. 2. Chronic respiratory failure. 3. Abnormal CT revealing right upper lobe nodule, currently measuring 1 cm. Previous workup is nondiagnostic. 4. Chronic obstructive pulmonary disease. 5. Hyperlipidemia. 6. Viral tracheobronchitis Plan . Updated 07/30 Wheezing and coughing worse today Continue current support USP unit evaluation updated 07/29 Patient currently on Solu-Medrol 125 mg twice daily Add Pepcid 20 mg twice daily Suspect wheezing related to viral tracheobronchitis, will last for several days to week, LETICIA FORTUNE MD Jul 30, 2021 09:22
[2021-07-30] MEDS: ENTRESTO PO SCH ×2 (10:30→23:19)
[2021-07-30] MEDS: SUCRALFATE 1 GM TABLET. PO SCH ×4 (10:30→23:17)
[2021-07-30 11:11] VITALS: BP 92/37
--- NOTE | 2021-07-30 13:26 | NUR ---
SS following up with discharge planning. SS reviewed pt chart and discussed with pt RN. Pt is currently requiring oxygen at three liters nasal canula. Pt has home oxygen. COVID19 negative. Pt on IV Solu Medrol. PT/OT ordered and recommended home with assistance. Pt has had previous services with [facility], ; fax [phone]. SS and Tita from [facility] met with pt in room and discussed discharge planning and services to include hospice and usp unit. Pt declining hospice stating that she "is not ready to and will continue to come to the hospital if she feels that it is needed." Pt also reported that she will not go to usp unit. She reported that she has several doctor appointments next month that she will not reschedule and needs to be at home. Pt agreeable to home with home healthcare with [facility]. Referral sent to [facility]. Physician and RN notified. SS will continue to follow for discharge planning.
--- NOTE | 2021-07-30 13:26 | PDOC ---
[employer] PROGRESS NOTE Date of Service DOS: DATE: 07/30/21 TIME: 13:24 Chief Complaint Chief Complaint End-stage COPD Exacerbation Bronchitis Intractable cough Respiratory Failure CAD CHF diabetes hypertension hyperlipidemia hypothyroidism AICD Hx left shoulder surgery, Hx tobacco abuse (quit 3 years ago) LAILA MDD History of Present Illness History of Present Illness 07/30, social work meeting today, she refused palliative, refused skilled wants to DC to Home health, jorge, has mult Appts this next month too weak to DC 07/29 Patient seen and examined at bedside Chart reviewed No acute overnight events Pt's wheezing slightly improved, though pt still reports not feeling well, SOA, and coughing Pt satting ~98 on 3L by NUZHAT Discussed with RN and pt examined with HEIKE 07/28 Pt seen and examined Chart reviewed No acute overnight events noted Pt still audibly wheezing and SOA Pt is satting ~98 on 3L by NUZHAT DWRN and HEIKE 07/27 Patient seen and examined at bedside Charts reviewed No acute overnight events Pt visibly dyspneic and coughing,currently on 3L by NUZHAT Discussed case with RN and HEIKE Vitals/I&O Vitals/I&O: Vital Signs Date Time Temp Pulse Resp B/P (MAP) Pulse Ox O2 Delivery O2 Flow Rate FiO2 07/30/21 11:28 Nasal Cannula 3.0 07/30/21 11:11 98.8 89 16 92/37 (55) 98 98.8 I & O 07/29/21 07/29/21 07/30/21 15:00 23:00 07:00 Intake Total 600 ml 200 ml Output Total 1000 ml Balance -400 ml 200 ml Physical Exam General: Alert, Oriented X3, Cooperative Heart: Regular rate, Normal S1, Normal S2 Lungs: Wheezing Abdomen: Normal bowel sounds, Soft Extremities: No cyanosis, No edema Skin: No rashes, No breakdown Labs Labs: Laboratory Tests Test 07/30/21 04:15 White Blood Count 8.3 x10^3/uL (4.0-11.0) Red Blood Count 2.69 x10^6/uL (3.50-5.40) Hemoglobin 8.3 g/dL (12.0-15.5) Hematocrit 24.7 % (36.0-47.0) Mean Corpuscular Volume 92 fL (79-100) Mean Corpuscular Hemoglobin 31 pg (25-35) Mean Corpuscular Hemoglobin Concent 34 g/dL (31-37) Red Cell Distribution Width 16.7 % (11.5-14.5) Platelet Count 361 x10^3/uL (140-400) Neutrophils (%) (Auto) 91 % (31-73) Lymphocytes (%) (Auto) 6 % (24-48) Monocytes (%) (Auto) 3 % (0-9) Eosinophils (%) (Auto) 0 % (0-3) Basophils (%) (Auto) 0 % (0-3) Neutrophils # (Auto) 7.5 x10^3/uL (1.8-7.7) Lymphocytes # (Auto) 0.5 x10^3/uL (1.0-4.8) Monocytes # (Auto) 0.2 x10^3/uL (0.0-1.1) Eosinophils # (Auto) 0.0 x10^3/uL (0.0-0.7) Basophils # (Auto) 0.0 x10^3/uL (0.0-0.2) Sodium Level 138 mmol/L (136-145) Potassium Level 4.5 mmol/L (3.5-5.1) Chloride Level 98 mmol/L (98-107) Carbon Dioxide Level 40 mmol/L (21-32) Anion Gap 0 (6-14) Blood Urea Nitrogen 34 mg/dL (7-20) Creatinine 1.3 mg/dL (0.6-1.0) Estimated GFR (Cockcroft-Gault) 40.9 Glucose Level 192 mg/dL (70-99) Calcium Level 8.8 mg/dL (8.5-10.1) Assessment and Plan Assessmemt and Plan Problems Medical Problems: (1) COPD exacerbation Status: Acute Comment Review of Relevant I have reviewed the following items jon (where applicable) has been applied. Medications: Current Medications Medications (Trade) Dose Ordered Sig/Keshav Route PRN Reason Start Time Stop Time Status Last Admin Dose Admin Non-Formulary Medication (Entresto ) 1 ea BID PO 07/29/21 21:00 07/30/21 10:30 Famotidine (Pepcid) 20 mg BID PO 07/29/21 21:00 07/30/21 08:57 Justifications for Admission Other Justification MALFUNCTIONING AICD DEMETRA BABIN MD Jul 30, 2021 13:26
[2021-07-30] MEDS: PHENOL ORAL SPRAY 177ML BOTTLE. PO PRN ×2 (14:04→18:13)
[2021-07-30 15:00] VITALS: BP 110/49
[2021-07-30 19:00] VITALS: BP 92/40
[2021-07-30 23:00] VITALS: BP 97/44
[2021-07-30] MEDS: MONTELUKAST SODIUM 10 MG TABLET. PO SCH (23:17)
[2021-07-30] MEDS: rOPINIRole 1 MG TABLET. PO SCH (23:18)
[2021-07-30] MEDS: ATORVASTATIN CALCIUM 20 MG TABLET PO SCH (23:18)
[2021-07-30] MEDS: AMITRIPTYLINE HCL 25 MG TABLET. PO SCH (23:18)
[2021-07-31 03:00] VITALS: BP 83/31
[2021-07-31 07:00] VITALS: BP 106/33
[2021-07-31] MEDS: LEVOTHYROXINE 50 MCG TABLET PO SCH (07:22)
[2021-07-31] MEDS: PANTOPRAZOLE 40 MG TABLET.DR. PO SCH (07:22)
[2021-07-31 07:29] LABS: BASO % 0 % (0-3); EOS % 0 % (0-3); HEMATOCRIT 27.1 % (36.0-47.0); HEMOGLOBIN 8.5 g/dL (12.0-15.5); LYMPH # 0.5 x10^3/uL (1.0-4.8); LYMPH % 4 % (24-48); MEAN CORPUSCULAR HEMOGLOBIN 29 pg (25-35); MEAN CORPUSCULAR HGB CONC 32 g/dL (31-37); MEAN CORPUSCULAR VOLUME 92 fL (79-100); MONO # 0.3 x10^3/uL (0.0-1.1); MONO % 2 % (0-9); NEUT # 11.6 x10^3/uL (1.8-7.7); NEUT % 93 % (31-73); PLATELET COUNT 394 x10^3/uL (140-400); RED BLOOD COUNT 2.96 x10^6/uL (3.50-5.40); RED CELL DISTRIBUTION WIDTH 17.1 % (11.5-14.5); WHITE BLOOD COUNT 12.4 x10^3/uL (4.0-11.0)
[2021-07-31] MEDS: IPRATRPIUM/ALBUTEROL 0.5/2.5MG 3 ML NEBU. NEB SCH ×4 (07:29→18:23)
[2021-07-31] MEDS: BUDESONIDE 0.5 MG/2 ML NEBU. NEB SCH ×2 (07:29→18:23)
[2021-07-31 07:45] LABS: CALCIUM 9.3 mg/dL (8.5-10.1); CREATININE 1.4 mg/dL (0.6-1.0); GFR 37.5; POTASSIUM 4.6 mmol/L (3.5-5.1)
--- NOTE | 2021-07-31 08:43 | PDOC ---
PULMONARY PROGRESS NOTES DATE: 07/31/21 TIME: 08:43 Subjective Patient working with PT, feels better, less short of air She agrees she needs help at home, met with [facility] Vitals Vital Signs Date Time Temp Pulse Resp B/P (MAP) Pulse Ox O2 Delivery O2 Flow Rate FiO2 07/31/21 07:30 99 Nasal Cannula 3.0 07/31/21 03:00 97.9 75 16 83/31 (48) 97.9 ROS: No Nausea, No Chest Pain, No Abdominal Pain, No Increase Cough General: Alert, Oriented X4, No acute distress HEENT: Other (Audible wheezing) Lungs: Wheezing Cardiovascular: S1, S2 Abdomen: Soft, Non-tender Extremities: No Edema Labs Laboratory Tests Test 07/30/21 04:15 07/31/21 07:05 White Blood Count 8.3 x10^3/uL (4.0-11.0) 12.4 x10^3/uL (4.0-11.0) Red Blood Count 2.69 x10^6/uL (3.50-5.40) 2.96 x10^6/uL (3.50-5.40) Hemoglobin 8.3 g/dL (12.0-15.5) 8.5 g/dL (12.0-15.5) Hematocrit 24.7 % (36.0-47.0) 27.1 % (36.0-47.0) Mean Corpuscular Volume 92 fL (79-100) 92 fL (79-100) Mean Corpuscular Hemoglobin 31 pg (25-35) 29 pg (25-35) Mean Corpuscular Hemoglobin Concent 34 g/dL (31-37) 32 g/dL (31-37) Red Cell Distribution Width 16.7 % (11.5-14.5) 17.1 % (11.5-14.5) Platelet Count 361 x10^3/uL (140-400) 394 x10^3/uL (140-400) Neutrophils (%) (Auto) 91 % (31-73) 93 % (31-73) Lymphocytes (%) (Auto) 6 % (24-48) 4 % (24-48) Monocytes (%) (Auto) 3 % (0-9) 2 % (0-9) Eosinophils (%) (Auto) 0 % (0-3) 0 % (0-3) Basophils (%) (Auto) 0 % (0-3) 0 % (0-3) Neutrophils # (Auto) 7.5 x10^3/uL (1.8-7.7) 11.6 x10^3/uL (1.8-7.7) Lymphocytes # (Auto) 0.5 x10^3/uL (1.0-4.8) 0.5 x10^3/uL (1.0-4.8) Monocytes # (Auto) 0.2 x10^3/uL (0.0-1.1) 0.3 x10^3/uL (0.0-1.1) Eosinophils # (Auto) 0.0 x10^3/uL (0.0-0.7) 0.0 x10^3/uL (0.0-0.7) Basophils # (Auto) 0.0 x10^3/uL (0.0-0.2) 0.0 x10^3/uL (0.0-0.2) Sodium Level 138 mmol/L (136-145) 139 mmol/L (136-145) Potassium Level 4.5 mmol/L (3.5-5.1) 4.6 mmol/L (3.5-5.1) Chloride Level 98 mmol/L (98-107) 98 mmol/L (98-107) Carbon Dioxide Level 40 mmol/L (21-32) 40 mmol/L (21-32) Anion Gap 0 (6-14) 1 (6-14) Blood Urea Nitrogen 34 mg/dL (7-20) 38 mg/dL (7-20) Creatinine 1.3 mg/dL (0.6-1.0) 1.4 mg/dL (0.6-1.0) Estimated GFR (Cockcroft-Gault) 40.9 37.5 Glucose Level 192 mg/dL (70-99) 233 mg/dL (70-99) Calcium Level 8.8 mg/dL (8.5-10.1) 9.3 mg/dL (8.5-10.1) Thyroid Stimulating Hormone (TSH) 0.779 uIU/mL (0.358-3.74) Laboratory Tests Test 07/31/21 07:05 White Blood Count 12.4 x10^3/uL (4.0-11.0) Red Blood Count 2.96 x10^6/uL (3.50-5.40) Hemoglobin 8.5 g/dL (12.0-15.5) Hematocrit 27.1 % (36.0-47.0) Mean Corpuscular Volume 92 fL (79-100) Mean Corpuscular Hemoglobin 29 pg (25-35) Mean Corpuscular Hemoglobin Concent 32 g/dL (31-37) Red Cell Distribution Width 17.1 % (11.5-14.5) Platelet Count 394 x10^3/uL (140-400) Neutrophils (%) (Auto) 93 % (31-73) Lymphocytes (%) (Auto) 4 % (24-48) Monocytes (%) (Auto) 2 % (0-9) Eosinophils (%) (Auto) 0 % (0-3) Basophils (%) (Auto) 0 % (0-3) Neutrophils # (Auto) 11.6 x10^3/uL (1.8-7.7) Lymphocytes # (Auto) 0.5 x10^3/uL (1.0-4.8) Monocytes # (Auto) 0.3 x10^3/uL (0.0-1.1) Eosinophils # (Auto) 0.0 x10^3/uL (0.0-0.7) Basophils # (Auto) 0.0 x10^3/uL (0.0-0.2) Sodium Level 139 mmol/L (136-145) Potassium Level 4.6 mmol/L (3.5-5.1) Chloride Level 98 mmol/L (98-107) Carbon Dioxide Level 40 mmol/L (21-32) Anion Gap 1 (6-14) Blood Urea Nitrogen 38 mg/dL (7-20) Creatinine 1.4 mg/dL (0.6-1.0) Estimated GFR (Cockcroft-Gault) 37.5 Glucose Level 233 mg/dL (70-99) Calcium Level 9.3 mg/dL (8.5-10.1) Thyroid Stimulating Hormone (TSH) 0.779 uIU/mL (0.358-3.74) Medications Active Scripts Medications Dose Route/Sig Max Daily Dose Days Date Category Ferrous Sulfate 325 Mg Tablet 1 Tab PO DAILY 07/26/21 Reported Sucralfate 1 Gm Tablet 1 Tab PO QID 07/26/21 Reported Clopidogrel (Clopidogrel Bisulfate) 75 Mg Tablet 1 Tab PO DAILY 07/20/21 Reported Methocarbamol 500 Mg Tablet 1,000 Mg PO PRN BID PRN 05/25/21 Reported Spironolactone 25 Mg Tablet 25 Mg PO DAILY 05/19/21 Reported Metoprolol Succinate ( Xl ) (Metoprolol Succinate) 25 Mg Tab.er.24h 25 Mg PO DAILY 05/19/21 Reported Voltaren Arthritis Pain (Diclofenac Sodium) 20 Gm Gel..gram. 20 Gm TP PRN PRN 05/19/21 Reported Entresto 24 mg-26 mg Tablet (Sacubitril/Valsartan) 1 Each Tablet 1 Each PO BID 30 11/19/20 Rx Gabapentin (Gabapentin) 100 Mg Capsule 100 Mg PO TID 10/18/20 Reported Alendronate Sodium 70 Mg Tablet 1 Tab PO WEEKLY 10/16/20 Reported Allopurinol 300 Mg Tablet 1 Tab PO DAILY 10/16/20 Reported Trelegy Ellipta 100-62.5-25 (Fluticasone/Umeclidin/Vilanter) 1 Each Blst.w.dev 1 Each IH DAILY 03/17/20 Reported Prilosec Otc (Omeprazole Magnesium) 20 Mg Tablet.dr 40 Mg PO DAILY 03/17/20 Reported Duoneb 0.5-3(2.5) Mg/3 Ml (Albuterol/Ipratropium) 3 Ml Ampul.neb 3 Ml NEB Q4HRS 14 10/22/19 Rx K-Tab ER (Potassium Chloride) 20 Meq Tablet.er 20 Meq PO DAILY 07/30/19 Reported Montelukast Sodium Tablet (Montelukast Sodium) 10 Mg Tablet 10 Mg PO HS 07/29/19 Reported Levocetirizine Dihydrochloride 5 Mg Tablet 5 Mg PO DAILY 07/29/19 Reported Amitriptyline Hcl 25 Mg Tablet 25 Mg PO QHS 07/29/19 Reported Aspir 81 (Aspirin) 81 Mg Tablet.dr 1 Tab PO DAILY 01/03/18 Reported Vitamin D3 (Cholecalciferol (Vitamin D3)) 1,000 Unit Tablet 1 Tab PO DAILY 01/02/18 Reported Torsemide 20 Mg Tablet 2 Tab PO DAILY 01/02/18 Reported Daliresp (Roflumilast) 500 Mcg Tablet 1 Tab PO DAILY 09/23/17 Reported Atorvastatin Calcium 20 Mg Tablet 20 Mg PO HS 09/23/17 Reported Requip (Ropinirole Hcl) 1 Mg Tablet 3 Tab PO QHS 09/23/17 Reported Proair Hfa Inhaler (Albuterol Sulfate) 8.5 Gm Hfa.aer.ad 1 Puff INH PRN Q6HRS PRN 09/23/17 Reported Levothyroxine Sodium 50 Mcg Tablet 1 Tab PO DAILY 09/23/17 Reported Impression . IMPRESSION: 1. Progressive dyspnea secondary to acute exacerbation of chronic obstructive pulmonary disease. 2. Chronic respiratory failure. 3. Abnormal CT revealing right upper lobe nodule, currently measuring 1 cm. Previous workup is nondiagnostic. 4. Chronic obstructive pulmonary disease. 5. Hyperlipidemia. 6. Viral tracheobronchitis Plan . Updated 07/31 PT evaluation Possible home today or tomorrow with home health Follow-up with Dr. Casillas as instructed to do so Updated 07/30 Wheezing and coughing worse today Continue current support [facility] unit evaluation updated 07/29 Patient currently on Solu-Medrol 125 mg twice daily Add Pepcid 20 mg twice daily Suspect wheezing related to viral tracheobronchitis, will last for several days to week, LETICIA FORTUNE MD Jul 31, 2021 08:43
[2021-07-31] MEDS: PHENOL ORAL SPRAY 177ML BOTTLE. PO PRN (09:58)
[2021-07-31] MEDS: ENTRESTO PO SCH ×2 (09:58→20:36)
[2021-07-31] MEDS: methylPREDNISolone SOD SUCC PF 125 MG/2 ML VIAL. IV SCH ×2 (09:58→20:36)
[2021-07-31] MEDS: TORSEMIDE 20 MG TABLET. PO SCH (09:59)
[2021-07-31] MEDS: GABAPENTIN 100 MG CAPSULE. PO SCH ×3 (09:59→20:36)
[2021-07-31] MEDS: ENOXAPARIN 40 MG/0.4 ML SYRINGE. SQ SCH (09:59)
[2021-07-31] MEDS: ASPIRIN ENTERIC COATED 81 MG TABLET.DR. PO SCH (09:59)
[2021-07-31] MEDS: DOXYCYCLINE HYCLATE 100 MG TABLET PO SCH ×2 (09:59→20:36)
[2021-07-31] MEDS: ROFLUMILAST 500 MCG TABLET. PO SCH (09:59)
[2021-07-31] MEDS: METOPROLOL SUCC 24HR ER 25 MG TAB.ER.24H. PO SCH (10:00)
[2021-07-31] MEDS: CETIRIZINE HCL 10 MG TABLET. PO SCH (10:00)
[2021-07-31] MEDS: FAMOTIDINE 20 MG TABLET. PO SCH ×2 (10:00→20:36)
[2021-07-31] MEDS: CHOLECALCIFEROL (VITAMIN D3) 1,000 UNIT TABLET PO SCH (10:00)
[2021-07-31] MEDS: CLOPIDOGREL BISULFATE 75 MG TABLET PO SCH (10:00)
[2021-07-31] MEDS: FERROUS SULFATE 325 MG TABLET. PO SCH (10:00)
[2021-07-31] MEDS: LACTOBACILLUS RHAMNOSUS GG 1 CAPSULE. PO SCH ×2 (10:01→20:36)
[2021-07-31] MEDS: ALLOPURINOL 300 MG TABLET. PO SCH (10:01)
[2021-07-31] MEDS: SPIRONOLACTONE 25 MG TABLET PO SCH (10:01)
[2021-07-31] MEDS: SUCRALFATE 1 GM TABLET. PO SCH ×4 (10:05→20:36)
--- NOTE | 2021-07-31 10:25 | PDOC ---
[facility] PROGRESS NOTE Date of Service DOS: DATE: 07/31/21 TIME: 10:24 Chief Complaint Chief Complaint End-stage COPD Exacerbation Bronchitis Intractable cough Respiratory Failure CAD CHF diabetes hypertension hyperlipidemia hypothyroidism AICD Hx left shoulder surgery, Hx tobacco abuse (quit 3 years ago) LAILA MDD History of Present Illness History of Present Illness Afebrile overnight. States her cough is still pretty violent and now she has a headache and sore throat which is unusual for her. She is not feeling any better. She is able to get up and ambulate with a walker but not very far. 07/30, social work meeting today, she refused palliative, refused skilled wants to DC to Home health, [facility], has mult Appts this next month too weak to DC 07/29 Patient seen and examined at bedside Chart reviewed No acute overnight events Pt's wheezing slightly improved, though pt still reports not feeling well, SOA, and coughing Pt satting ~98 on 3L by NC Discussed with RN and pt examined with HEIKE 07/28 Pt seen and examined Chart reviewed No acute overnight events noted Pt still audibly wheezing and SOA Pt is satting ~98 on 3L by NUZHAT DWRN and HEIKE 07/27 Patient seen and examined at bedside Charts reviewed No acute overnight events Pt visibly dyspneic and coughing,currently on 3L by NUZHAT Discussed case with RN and SW Vitals/I&O Vitals/I&O: Vital Signs Date Time Temp Pulse Resp B/P (MAP) Pulse Ox O2 Delivery O2 Flow Rate FiO2 07/31/21 10:00 81 106/33 07/31/21 08:00 Nasal Cannula 3.0 07/31/21 07:30 99 07/31/21 07:00 98.5 19 98.5 I & O 07/30/21 07/30/21 07/31/21 15:00 23:00 07:00 Intake Total 480 ml 240 ml 360 ml Balance 480 ml 240 ml 360 ml Physical Exam General: Alert, Oriented X3, Cooperative Heart: Regular rate, Normal S1, Normal S2 Lungs: Wheezing Abdomen: Normal bowel sounds, Soft Extremities: No cyanosis, No edema Skin: No rashes, No breakdown Labs Labs: Laboratory Tests Test 07/31/21 07:05 White Blood Count 12.4 x10^3/uL (4.0-11.0) Red Blood Count 2.96 x10^6/uL (3.50-5.40) Hemoglobin 8.5 g/dL (12.0-15.5) Hematocrit 27.1 % (36.0-47.0) Mean Corpuscular Volume 92 fL (79-100) Mean Corpuscular Hemoglobin 29 pg (25-35) Mean Corpuscular Hemoglobin Concent 32 g/dL (31-37) Red Cell Distribution Width 17.1 % (11.5-14.5) Platelet Count 394 x10^3/uL (140-400) Neutrophils (%) (Auto) 93 % (31-73) Lymphocytes (%) (Auto) 4 % (24-48) Monocytes (%) (Auto) 2 % (0-9) Eosinophils (%) (Auto) 0 % (0-3) Basophils (%) (Auto) 0 % (0-3) Neutrophils # (Auto) 11.6 x10^3/uL (1.8-7.7) Lymphocytes # (Auto) 0.5 x10^3/uL (1.0-4.8) Monocytes # (Auto) 0.3 x10^3/uL (0.0-1.1) Eosinophils # (Auto) 0.0 x10^3/uL (0.0-0.7) Basophils # (Auto) 0.0 x10^3/uL (0.0-0.2) Sodium Level 139 mmol/L (136-145) Potassium Level 4.6 mmol/L (3.5-5.1) Chloride Level 98 mmol/L (98-107) Carbon Dioxide Level 40 mmol/L (21-32) Anion Gap 1 (6-14) Blood Urea Nitrogen 38 mg/dL (7-20) Creatinine 1.4 mg/dL (0.6-1.0) Estimated GFR (Cockcroft-Gault) 37.5 Glucose Level 233 mg/dL (70-99) Calcium Level 9.3 mg/dL (8.5-10.1) Thyroid Stimulating Hormone (TSH) 0.779 uIU/mL (0.358-3.74) Assessment and Plan Assessmemt and Plan Problems Medical Problems: (1) COPD exacerbation Status: Acute Comment Review of Relevant I have reviewed the following items jon (where applicable) has been applied. Medications: Current Medications Medications (Trade) Dose Ordered Sig/Keshav Route PRN Reason Start Time Stop Time Status Last Admin Dose Admin Phenol (Chloraseptic) 1 spray PRN Q2HR PRN PO SORE THROAT 07/30/21 13:45 07/31/21 09:58 Justifications for Admission Other Justification MALFUNCTIONING AICD PHONG YEBOAH MD Jul 31, 2021 10:25
[2021-07-31] MEDS ORDERED: DEXTROSE 50% 25 GM / 50ML DISP.SYRIN. IV PRN (10:30)
[2021-07-31] MEDS ORDERED: BENZOCAINE/MENTHOL LOZENGE. PO PRN (10:30)
[2021-07-31 11:00] VITALS: BP 91/37
[2021-07-31] MEDS: INSULIN LISPRO 300 UNITS/3 ML VIAL. SQ SCH ×2 (12:00→17:11)
[2021-07-31 15:00] VITALS: BP 122/38
[2021-07-31 19:00] VITALS: BP 128/88
[2021-07-31] MEDS: MONTELUKAST SODIUM 10 MG TABLET. PO SCH (20:36)
[2021-07-31] MEDS: rOPINIRole 1 MG TABLET. PO SCH (20:36)
[2021-07-31] MEDS: ATORVASTATIN CALCIUM 20 MG TABLET PO SCH (20:36)
[2021-07-31] MEDS: AMITRIPTYLINE HCL 25 MG TABLET. PO SCH (20:36)
[2021-07-31 23:00] VITALS: BP 97/45
[2021-08-01 00:14] LABS: HEMOGLOBIN A1C 5.7 % (4.8-5.6)
[2021-08-01 03:13] VITALS: BP 105/44
[2021-08-01] MEDS: LEVOTHYROXINE 50 MCG TABLET PO SCH (06:08)
[2021-08-01 07:00] VITALS: BP 103/38
--- NOTE | 2021-08-01 07:05 | PDOC ---
PULMONARY PROGRESS NOTES DATE: 08/01/21 TIME: 07:03 Subjective sob cough better no cp Vitals Vital Signs Date Time Temp Pulse Resp B/P (MAP) Pulse Ox O2 Delivery O2 Flow Rate FiO2 08/01/21 03:13 97.7 85 20 105/44 (64) 99 Nasal Cannula 97.7 07/31/21 19:35 3.0 ROS: No Nausea, No Chest Pain, No Abdominal Pain, No Increase Cough General: Alert, Oriented X4, No acute distress HEENT: Other Lungs: Other (b lat diminished ) Cardiovascular: S1, S2 Abdomen: Soft, Non-tender Neuro Exam: Alert Extremities: No Edema Skin: Warm Labs Laboratory Tests Test 07/31/21 07:05 07/31/21 12:23 07/31/21 16:48 07/31/21 20:26 White Blood Count 12.4 x10^3/uL (4.0-11.0) Red Blood Count 2.96 x10^6/uL (3.50-5.40) Hemoglobin 8.5 g/dL (12.0-15.5) Hematocrit 27.1 % (36.0-47.0) Mean Corpuscular Volume 92 fL (79-100) Mean Corpuscular Hemoglobin 29 pg (25-35) Mean Corpuscular Hemoglobin Concent 32 g/dL (31-37) Red Cell Distribution Width 17.1 % (11.5-14.5) Platelet Count 394 x10^3/uL (140-400) Neutrophils (%) (Auto) 93 % (31-73) Lymphocytes (%) (Auto) 4 % (24-48) Monocytes (%) (Auto) 2 % (0-9) Eosinophils (%) (Auto) 0 % (0-3) Basophils (%) (Auto) 0 % (0-3) Neutrophils # (Auto) 11.6 x10^3/uL (1.8-7.7) Lymphocytes # (Auto) 0.5 x10^3/uL (1.0-4.8) Monocytes # (Auto) 0.3 x10^3/uL (0.0-1.1) Eosinophils # (Auto) 0.0 x10^3/uL (0.0-0.7) Basophils # (Auto) 0.0 x10^3/uL (0.0-0.2) Sodium Level 139 mmol/L (136-145) Potassium Level 4.6 mmol/L (3.5-5.1) Chloride Level 98 mmol/L (98-107) Carbon Dioxide Level 40 mmol/L (21-32) Anion Gap 1 (6-14) Blood Urea Nitrogen 38 mg/dL (7-20) Creatinine 1.4 mg/dL (0.6-1.0) Estimated GFR (Cockcroft-Gault) 37.5 Glucose Level 233 mg/dL (70-99) Hemoglobin A1c 5.7 % (4.8-5.6) Calcium Level 9.3 mg/dL (8.5-10.1) Thyroid Stimulating Hormone (TSH) 0.779 uIU/mL (0.358-3.74) Glucose (Fingerstick) 150 mg/dL (70-99) 260 mg/dL (70-99) 329 mg/dL (70-99) Laboratory Tests Test 07/31/21 07:05 07/31/21 12:23 07/31/21 16:48 07/31/21 20:26 White Blood Count 12.4 x10^3/uL (4.0-11.0) Red Blood Count 2.96 x10^6/uL (3.50-5.40) Hemoglobin 8.5 g/dL (12.0-15.5) Hematocrit 27.1 % (36.0-47.0) Mean Corpuscular Volume 92 fL (79-100) Mean Corpuscular Hemoglobin 29 pg (25-35) Mean Corpuscular Hemoglobin Concent 32 g/dL (31-37) Red Cell Distribution Width 17.1 % (11.5-14.5) Platelet Count 394 x10^3/uL (140-400) Neutrophils (%) (Auto) 93 % (31-73) Lymphocytes (%) (Auto) 4 % (24-48) Monocytes (%) (Auto) 2 % (0-9) Eosinophils (%) (Auto) 0 % (0-3) Basophils (%) (Auto) 0 % (0-3) Neutrophils # (Auto) 11.6 x10^3/uL (1.8-7.7) Lymphocytes # (Auto) 0.5 x10^3/uL (1.0-4.8) Monocytes # (Auto) 0.3 x10^3/uL (0.0-1.1) Eosinophils # (Auto) 0.0 x10^3/uL (0.0-0.7) Basophils # (Auto) 0.0 x10^3/uL (0.0-0.2) Sodium Level 139 mmol/L (136-145) Potassium Level 4.6 mmol/L (3.5-5.1) Chloride Level 98 mmol/L (98-107) Carbon Dioxide Level 40 mmol/L (21-32) Anion Gap 1 (6-14) Blood Urea Nitrogen 38 mg/dL (7-20) Creatinine 1.4 mg/dL (0.6-1.0) Estimated GFR (Cockcroft-Gault) 37.5 Glucose Level 233 mg/dL (70-99) Hemoglobin A1c 5.7 % (4.8-5.6) Calcium Level 9.3 mg/dL (8.5-10.1) Thyroid Stimulating Hormone (TSH) 0.779 uIU/mL (0.358-3.74) Glucose (Fingerstick) 150 mg/dL (70-99) 260 mg/dL (70-99) 329 mg/dL (70-99) Medications Active Scripts Medications Dose Route/Sig Max Daily Dose Days Date Category Ferrous Sulfate 325 Mg Tablet 1 Tab PO DAILY 07/26/21 Reported Sucralfate 1 Gm Tablet 1 Tab PO QID 07/26/21 Reported Clopidogrel (Clopidogrel Bisulfate) 75 Mg Tablet 1 Tab PO DAILY 07/20/21 Reported Methocarbamol 500 Mg Tablet 1,000 Mg PO PRN BID PRN 05/25/21 Reported Spironolactone 25 Mg Tablet 25 Mg PO DAILY 05/19/21 Reported Metoprolol Succinate ( Xl ) (Metoprolol Succinate) 25 Mg Tab.er.24h 25 Mg PO DAILY 05/19/21 Reported Voltaren Arthritis Pain (Diclofenac Sodium) 20 Gm Gel..gram. 20 Gm TP PRN PRN 05/19/21 Reported Entresto 24 mg-26 mg Tablet (Sacubitril/Valsartan) 1 Each Tablet 1 Each PO BID 30 11/19/20 Rx Gabapentin (Gabapentin) 100 Mg Capsule 100 Mg PO TID 10/18/20 Reported Alendronate Sodium 70 Mg Tablet 1 Tab PO WEEKLY 10/16/20 Reported Allopurinol 300 Mg Tablet 1 Tab PO DAILY 10/16/20 Reported Trelegy Ellipta 100-62.5-25 (Fluticasone/Umeclidin/Vilanter) 1 Each Blst.w.dev 1 Each IH DAILY 03/17/20 Reported Prilosec Otc (Omeprazole Magnesium) 20 Mg Tablet.dr 40 Mg PO DAILY 03/17/20 Reported Duoneb 0.5-3(2.5) Mg/3 Ml (Albuterol/Ipratropium) 3 Ml Ampul.neb 3 Ml NEB Q4HRS 14 10/22/19 Rx K-Tab ER (Potassium Chloride) 20 Meq Tablet.er 20 Meq PO DAILY 07/30/19 Reported Montelukast Sodium Tablet (Montelukast Sodium) 10 Mg Tablet 10 Mg PO HS 07/29/19 Reported Levocetirizine Dihydrochloride 5 Mg Tablet 5 Mg PO DAILY 07/29/19 Reported Amitriptyline Hcl 25 Mg Tablet 25 Mg PO QHS 07/29/19 Reported Aspir 81 (Aspirin) 81 Mg Tablet.dr 1 Tab PO DAILY 01/03/18 Reported Vitamin D3 (Cholecalciferol (Vitamin D3)) 1,000 Unit Tablet 1 Tab PO DAILY 01/02/18 Reported Torsemide 20 Mg Tablet 2 Tab PO DAILY 01/02/18 Reported Daliresp (Roflumilast) 500 Mcg Tablet 1 Tab PO DAILY 09/23/17 Reported Atorvastatin Calcium 20 Mg Tablet 20 Mg PO HS 09/23/17 Reported Requip (Ropinirole Hcl) 1 Mg Tablet 3 Tab PO QHS 09/23/17 Reported Proair Hfa Inhaler (Albuterol Sulfate) 8.5 Gm Hfa.aer.ad 1 Puff INH PRN Q6HRS PRN 09/23/17 Reported Levothyroxine Sodium 50 Mcg Tablet 1 Tab PO DAILY 09/23/17 Reported Impression . IMPRESSION: 1. Progressive dyspnea secondary to acute exacerbation of chronic obstructive pulmonary disease. 2. Chronic respiratory failure. 3. Abnormal CT revealing right upper lobe nodule, currently measuring 1 cm. Previous workup is nondiagnostic. 4. Chronic obstructive pulmonary disease. 5. Hyperlipidemia. 6. Viral tracheobronchitis Plan . Updated 08/01 change solumedrol to prednisone 40 mg w taper by 10 mg q 3 d 02 titration PT/OT ok to dc with home health Follow-up with Dr. Casillas Updated 07/31 PT evaluation Possible home today or tomorrow with home health Follow-up with Dr. Casillas as instructed to do so Updated 07/30 Wheezing and coughing worse today Continue current support assisted unit evaluation updated 07/29 Patient currently on Solu-Medrol 125 mg twice daily Add Pepcid 20 mg twice daily Suspect wheezing related to viral tracheobronchitis, will last for several days to week, KING CHUNG MD Aug 01, 2021 07:05
[2021-08-01] MEDS: IPRATRPIUM/ALBUTEROL 0.5/2.5MG 3 ML NEBU. NEB SCH ×4 (07:20→18:20)
[2021-08-01] MEDS: BUDESONIDE 0.5 MG/2 ML NEBU. NEB SCH ×2 (07:20→18:20)
[2021-08-01 07:51] LABS: BASO % 0 % (0-3); EOS % 0 % (0-3); HEMATOCRIT 27.7 % (36.0-47.0); HEMOGLOBIN 8.8 g/dL (12.0-15.5); LYMPH # 0.5 x10^3/uL (1.0-4.8); LYMPH % 4 % (24-48); MEAN CORPUSCULAR HEMOGLOBIN 29 pg (25-35); MEAN CORPUSCULAR HGB CONC 32 g/dL (31-37); MEAN CORPUSCULAR VOLUME 93 fL (79-100); MONO # 0.3 x10^3/uL (0.0-1.1); MONO % 2 % (0-9); NEUT # 11.3 x10^3/uL (1.8-7.7); NEUT % 94 % (31-73); PLATELET COUNT 368 x10^3/uL (140-400); RED BLOOD COUNT 2.99 x10^6/uL (3.50-5.40); RED CELL DISTRIBUTION WIDTH 17.1 % (11.5-14.5); WHITE BLOOD COUNT 12.1 x10^3/uL (4.0-11.0)
[2021-08-01 08:06] LABS: CALCIUM 8.8 mg/dL (8.5-10.1); CREATININE 1.3 mg/dL (0.6-1.0); GFR 40.9
[2021-08-01] MEDS: FAMOTIDINE 20 MG TABLET. PO SCH ×2 (08:33→21:17)
[2021-08-01] MEDS: DOXYCYCLINE HYCLATE 100 MG TABLET PO SCH ×2 (08:33→21:16)
[2021-08-01] MEDS: CLOPIDOGREL BISULFATE 75 MG TABLET PO SCH (08:33)
[2021-08-01] MEDS: GABAPENTIN 100 MG CAPSULE. PO SCH ×3 (08:33→21:16)
[2021-08-01] MEDS: CETIRIZINE HCL 10 MG TABLET. PO SCH (08:33)
[2021-08-01] MEDS: PANTOPRAZOLE 40 MG TABLET.DR. PO SCH (08:33)
[2021-08-01] MEDS: predniSONE 20 MG TABLET PO SCH (08:33)
[2021-08-01] MEDS: CHOLECALCIFEROL (VITAMIN D3) 1,000 UNIT TABLET PO SCH (08:33)
[2021-08-01] MEDS: ENOXAPARIN 40 MG/0.4 ML SYRINGE. SQ SCH (08:34)
[2021-08-01] MEDS: LACTOBACILLUS RHAMNOSUS GG 1 CAPSULE. PO SCH ×2 (08:37→21:00)
[2021-08-01] MEDS: SPIRONOLACTONE 25 MG TABLET PO SCH (08:38)
[2021-08-01] MEDS: ASPIRIN ENTERIC COATED 81 MG TABLET.DR. PO SCH (08:42)
[2021-08-01] MEDS: ROFLUMILAST 500 MCG TABLET. PO SCH (08:42)
[2021-08-01] MEDS: FERROUS SULFATE 325 MG TABLET. PO SCH (08:42)
[2021-08-01] MEDS: ENTRESTO PO SCH ×2 (08:43→21:16)
[2021-08-01] MEDS: TORSEMIDE 20 MG TABLET. PO SCH (08:43)
[2021-08-01] MEDS: METOPROLOL SUCC 24HR ER 25 MG TAB.ER.24H. PO SCH (08:43)
[2021-08-01] MEDS: ALLOPURINOL 300 MG TABLET. PO SCH (08:43)
[2021-08-01] MEDS: ASA/APAP/CAFFEINE 250/250/65MG TABLET. PO PRN ×2 (08:52→21:21)
[2021-08-01] MEDS: INSULIN LISPRO 300 UNITS/3 ML VIAL. SQ SCH ×3 (08:59→18:07)
[2021-08-01 11:00] VITALS: BP 102/42
[2021-08-01] MEDS: SUCRALFATE 1 GM TABLET. PO SCH ×4 (12:12→21:16)
[2021-08-01] MEDS ORDERED: ONDANSETRON PF 4 MG/2 ML VIAL. IVP PRN (12:30)
--- NOTE | 2021-08-01 12:55 | PDOC ---
[facility] PROGRESS NOTE Date of Service DOS: DATE: 08/01/21 TIME: 12:54 Chief Complaint Chief Complaint End-stage COPD Exacerbation Bronchitis Intractable cough Respiratory Failure CAD CHF diabetes hypertension hyperlipidemia hypothyroidism AICD Hx left shoulder surgery, Hx tobacco abuse (quit 3 years ago) LAILA MDD History of Present Illness History of Present Illness 08/01, nausea today, poor po intake weak, lung exam grossly audible, Afebrile overnight. States her cough is still pretty violent and now she has a headache and sore throat which is unusual for her. She is not feeling any better. She is able to get up and ambulate with a walker but not very far. 07/30, social work meeting today, she refused palliative, refused skilled wants to DC to Home health, [place], too weak to DC 07/29 Patient seen and examined at bedside Chart reviewed No acute overnight events Pt's wheezing slightly improved, though pt still reports not feeling well, SOA, and coughing Pt satting ~98 on 3L by NUZHAT Discussed with RN and pt examined with HEIKE 07/28 Pt seen and examined Chart reviewed No acute overnight events noted Pt still audibly wheezing and SOA Pt is satting ~98 on 3L by NUZHAT DWRN and HEIKE 07/27 Patient seen and examined at bedside Charts reviewed No acute overnight events Pt visibly dyspneic and coughing,currently on 3L by NUZHAT Discussed case with RN and HEIKE Vitals/I&O Vitals/I&O: Vital Signs Date Time Temp Pulse Resp B/P (MAP) Pulse Ox O2 Delivery O2 Flow Rate FiO2 08/01/21 11:33 99 Nasal Cannula 3.0 08/01/21 08:43 78 103/38 08/01/21 07:00 98.0 20 98.0 I & O 07/31/21 07/31/21 08/01/21 15:00 23:00 07:00 Intake Total 600 ml 400 ml Balance 600 ml 400 ml Physical Exam General: Alert, Oriented X3, Cooperative Heart: Regular rate, Normal S1, Normal S2 Lungs: Crackles (flock of seagulls), Other (b lat diminished ) Abdomen: Normal bowel sounds, Soft Extremities: No cyanosis, No edema Skin: No rashes, No breakdown Labs Labs: Laboratory Tests Test 07/31/21 16:48 07/31/21 20:26 08/01/21 07:15 08/01/21 07:44 Glucose (Fingerstick) 260 mg/dL (70-99) 329 mg/dL (70-99) 167 mg/dL (70-99) White Blood Count 12.1 x10^3/uL (4.0-11.0) Red Blood Count 2.99 x10^6/uL (3.50-5.40) Hemoglobin 8.8 g/dL (12.0-15.5) Hematocrit 27.7 % (36.0-47.0) Mean Corpuscular Volume 93 fL (79-100) Mean Corpuscular Hemoglobin 29 pg (25-35) Mean Corpuscular Hemoglobin Concent 32 g/dL (31-37) Red Cell Distribution Width 17.1 % (11.5-14.5) Platelet Count 368 x10^3/uL (140-400) Neutrophils (%) (Auto) 94 % (31-73) Lymphocytes (%) (Auto) 4 % (24-48) Monocytes (%) (Auto) 2 % (0-9) Eosinophils (%) (Auto) 0 % (0-3) Basophils (%) (Auto) 0 % (0-3) Neutrophils # (Auto) 11.3 x10^3/uL (1.8-7.7) Lymphocytes # (Auto) 0.5 x10^3/uL (1.0-4.8) Monocytes # (Auto) 0.3 x10^3/uL (0.0-1.1) Eosinophils # (Auto) 0.0 x10^3/uL (0.0-0.7) Basophils # (Auto) 0.0 x10^3/uL (0.0-0.2) Sodium Level 141 mmol/L (136-145) Potassium Level 4.0 mmol/L (3.5-5.1) Chloride Level 99 mmol/L (98-107) Carbon Dioxide Level 37 mmol/L (21-32) Anion Gap 5 (6-14) Blood Urea Nitrogen 45 mg/dL (7-20) Creatinine 1.3 mg/dL (0.6-1.0) Estimated GFR (Cockcroft-Gault) 40.9 Glucose Level 194 mg/dL (70-99) Calcium Level 8.8 mg/dL (8.5-10.1) Test 08/01/21 11:56 Glucose (Fingerstick) 199 mg/dL (70-99) Review of Systems Review of Systems: nausea Assessment and Plan Assessmemt and Plan Problems Medical Problems: (1) COPD exacerbation Status: Acute Comment Review of Relevant I have reviewed the following items jon (where applicable) has been applied. Medications: Current Medications Medications (Trade) Dose Ordered Sig/Keshav Route PRN Reason Start Time Stop Time Status Last Admin Dose Admin Prednisone (Prednisone) 40 mg DAILY PO 08/01/21 09:00 08/01/21 08:33 Ondansetron HCl (Zofran) 4 mg PRN Q8HRS PRN IVP NAUSEA/VOMITING 08/01/21 12:30 08/01/21 12:24 Justifications for Admission Other Justification MALFUNCTIONING DEMETRA NIELSEN MD Aug 01, 2021 12:55
[2021-08-01 15:00] VITALS: BP 106/34
[2021-08-01 19:00] VITALS: BP 103/44
[2021-08-01] MEDS: rOPINIRole 1 MG TABLET. PO SCH (21:16)
[2021-08-01] MEDS: MONTELUKAST SODIUM 10 MG TABLET. PO SCH ×2 (21:16→21:17)
[2021-08-01] MEDS: ATORVASTATIN CALCIUM 20 MG TABLET PO SCH (21:16)
[2021-08-01] MEDS: AMITRIPTYLINE HCL 25 MG TABLET. PO SCH (21:17)
[2021-08-01 23:05] VITALS: BP 105/37
[2021-08-02 03:34] VITALS: BP 93/40
[2021-08-02 05:32] LABS: BASO % 0 % (0-3); EOS % 0 % (0-3); HEMATOCRIT 24.5 % (36.0-47.0); HEMOGLOBIN 7.8 g/dL (12.0-15.5); LYMPH # 0.9 x10^3/uL (1.0-4.8); LYMPH % 7 % (24-48); MEAN CORPUSCULAR HEMOGLOBIN 29 pg (25-35); MEAN CORPUSCULAR HGB CONC 32 g/dL (31-37); MEAN CORPUSCULAR VOLUME 92 fL (79-100); MONO # 0.6 x10^3/uL (0.0-1.1); MONO % 5 % (0-9); NEUT # 10.8 x10^3/uL (1.8-7.7); NEUT % 88 % (31-73); PLATELET COUNT 319 x10^3/uL (140-400); RED BLOOD COUNT 2.68 x10^6/uL (3.50-5.40); RED CELL DISTRIBUTION WIDTH 16.9 % (11.5-14.5); WHITE BLOOD COUNT 12.3 x10^3/uL (4.0-11.0)
[2021-08-02 05:35] LABS: CALCIUM 8.5 mg/dL (8.5-10.1); CREATININE 1.8 mg/dL (0.6-1.0); GFR 28.1; POTASSIUM 4.5 mmol/L (3.5-5.1)
[2021-08-02] MEDS: LEVOTHYROXINE 50 MCG TABLET PO SCH (05:47)
--- NOTE | 2021-08-02 06:13 | PDOC ---
PULMONARY PROGRESS NOTES DATE: 08/02/21 TIME: 06:12 Subjective has cough slightly better sob better no cp Vitals Vital Signs Date Time Temp Pulse Resp B/P (MAP) Pulse Ox O2 Delivery O2 Flow Rate FiO2 08/02/21 03:34 97.9 68 18 93/40 (57) 100 Nasal Cannula 97.9 08/01/21 20:20 3.0 ROS: No Nausea, No Chest Pain, No Abdominal Pain, No Increase Cough General: Alert, Oriented X4, No acute distress HEENT: Other Lungs: Wheezing, Crackles (flock of seagulls), Other (b lat diminished ) Cardiovascular: S1, S2 Abdomen: Soft, Non-tender Neuro Exam: Alert Extremities: No Edema Skin: Warm Labs Laboratory Tests Test 07/31/21 07:05 07/31/21 12:23 07/31/21 16:48 07/31/21 20:26 White Blood Count 12.4 x10^3/uL (4.0-11.0) Red Blood Count 2.96 x10^6/uL (3.50-5.40) Hemoglobin 8.5 g/dL (12.0-15.5) Hematocrit 27.1 % (36.0-47.0) Mean Corpuscular Volume 92 fL (79-100) Mean Corpuscular Hemoglobin 29 pg (25-35) Mean Corpuscular Hemoglobin Concent 32 g/dL (31-37) Red Cell Distribution Width 17.1 % (11.5-14.5) Platelet Count 394 x10^3/uL (140-400) Neutrophils (%) (Auto) 93 % (31-73) Lymphocytes (%) (Auto) 4 % (24-48) Monocytes (%) (Auto) 2 % (0-9) Eosinophils (%) (Auto) 0 % (0-3) Basophils (%) (Auto) 0 % (0-3) Neutrophils # (Auto) 11.6 x10^3/uL (1.8-7.7) Lymphocytes # (Auto) 0.5 x10^3/uL (1.0-4.8) Monocytes # (Auto) 0.3 x10^3/uL (0.0-1.1) Eosinophils # (Auto) 0.0 x10^3/uL (0.0-0.7) Basophils # (Auto) 0.0 x10^3/uL (0.0-0.2) Sodium Level 139 mmol/L (136-145) Potassium Level 4.6 mmol/L (3.5-5.1) Chloride Level 98 mmol/L (98-107) Carbon Dioxide Level 40 mmol/L (21-32) Anion Gap 1 (6-14) Blood Urea Nitrogen 38 mg/dL (7-20) Creatinine 1.4 mg/dL (0.6-1.0) Estimated GFR (Cockcroft-Gault) 37.5 Glucose Level 233 mg/dL (70-99) Hemoglobin A1c 5.7 % (4.8-5.6) Calcium Level 9.3 mg/dL (8.5-10.1) Thyroid Stimulating Hormone (TSH) 0.779 uIU/mL (0.358-3.74) Glucose (Fingerstick) 150 mg/dL (70-99) 260 mg/dL (70-99) 329 mg/dL (70-99) Test 08/01/21 07:15 08/01/21 07:44 08/01/21 11:56 08/01/21 16:41 White Blood Count 12.1 x10^3/uL (4.0-11.0) Red Blood Count 2.99 x10^6/uL (3.50-5.40) Hemoglobin 8.8 g/dL (12.0-15.5) Hematocrit 27.7 % (36.0-47.0) Mean Corpuscular Volume 93 fL (79-100) Mean Corpuscular Hemoglobin 29 pg (25-35) Mean Corpuscular Hemoglobin Concent 32 g/dL (31-37) Red Cell Distribution Width 17.1 % (11.5-14.5) Platelet Count 368 x10^3/uL (140-400) Neutrophils (%) (Auto) 94 % (31-73) Lymphocytes (%) (Auto) 4 % (24-48) Monocytes (%) (Auto) 2 % (0-9) Eosinophils (%) (Auto) 0 % (0-3) Basophils (%) (Auto) 0 % (0-3) Neutrophils # (Auto) 11.3 x10^3/uL (1.8-7.7) Lymphocytes # (Auto) 0.5 x10^3/uL (1.0-4.8) Monocytes # (Auto) 0.3 x10^3/uL (0.0-1.1) Eosinophils # (Auto) 0.0 x10^3/uL (0.0-0.7) Basophils # (Auto) 0.0 x10^3/uL (0.0-0.2) Sodium Level 141 mmol/L (136-145) Potassium Level 4.0 mmol/L (3.5-5.1) Chloride Level 99 mmol/L (98-107) Carbon Dioxide Level 37 mmol/L (21-32) Anion Gap 5 (6-14) Blood Urea Nitrogen 45 mg/dL (7-20) Creatinine 1.3 mg/dL (0.6-1.0) Estimated GFR (Cockcroft-Gault) 40.9 Glucose Level 194 mg/dL (70-99) Calcium Level 8.8 mg/dL (8.5-10.1) Glucose (Fingerstick) 167 mg/dL (70-99) 199 mg/dL (70-99) 199 mg/dL (70-99) Test 08/02/21 04:30 White Blood Count 12.3 x10^3/uL (4.0-11.0) Red Blood Count 2.68 x10^6/uL (3.50-5.40) Hemoglobin 7.8 g/dL (12.0-15.5) Hematocrit 24.5 % (36.0-47.0) Mean Corpuscular Volume 92 fL (79-100) Mean Corpuscular Hemoglobin 29 pg (25-35) Mean Corpuscular Hemoglobin Concent 32 g/dL (31-37) Red Cell Distribution Width 16.9 % (11.5-14.5) Platelet Count 319 x10^3/uL (140-400) Neutrophils (%) (Auto) 88 % (31-73) Lymphocytes (%) (Auto) 7 % (24-48) Monocytes (%) (Auto) 5 % (0-9) Eosinophils (%) (Auto) 0 % (0-3) Basophils (%) (Auto) 0 % (0-3) Neutrophils # (Auto) 10.8 x10^3/uL (1.8-7.7) Lymphocytes # (Auto) 0.9 x10^3/uL (1.0-4.8) Monocytes # (Auto) 0.6 x10^3/uL (0.0-1.1) Eosinophils # (Auto) 0.0 x10^3/uL (0.0-0.7) Basophils # (Auto) 0.0 x10^3/uL (0.0-0.2) Sodium Level 140 mmol/L (136-145) Potassium Level 4.5 mmol/L (3.5-5.1) Chloride Level 99 mmol/L (98-107) Carbon Dioxide Level 41 mmol/L (21-32) Anion Gap 0 (6-14) Blood Urea Nitrogen 43 mg/dL (7-20) Creatinine 1.8 mg/dL (0.6-1.0) Estimated GFR (Cockcroft-Gault) 28.1 Glucose Level 154 mg/dL (70-99) Calcium Level 8.5 mg/dL (8.5-10.1) Laboratory Tests Test 08/01/21 07:15 08/01/21 07:44 08/01/21 11:56 08/01/21 16:41 White Blood Count 12.1 x10^3/uL (4.0-11.0) Red Blood Count 2.99 x10^6/uL (3.50-5.40) Hemoglobin 8.8 g/dL (12.0-15.5) Hematocrit 27.7 % (36.0-47.0) Mean Corpuscular Volume 93 fL (79-100) Mean Corpuscular Hemoglobin 29 pg (25-35) Mean Corpuscular Hemoglobin Concent 32 g/dL (31-37) Red Cell Distribution Width 17.1 % (11.5-14.5) Platelet Count 368 x10^3/uL (140-400) Neutrophils (%) (Auto) 94 % (31-73) Lymphocytes (%) (Auto) 4 % (24-48) Monocytes (%) (Auto) 2 % (0-9) Eosinophils (%) (Auto) 0 % (0-3) Basophils (%) (Auto) 0 % (0-3) Neutrophils # (Auto) 11.3 x10^3/uL (1.8-7.7) Lymphocytes # (Auto) 0.5 x10^3/uL (1.0-4.8) Monocytes # (Auto) 0.3 x10^3/uL (0.0-1.1) Eosinophils # (Auto) 0.0 x10^3/uL (0.0-0.7) Basophils # (Auto) 0.0 x10^3/uL (0.0-0.2) Sodium Level 141 mmol/L (136-145) Potassium Level 4.0 mmol/L (3.5-5.1) Chloride Level 99 mmol/L (98-107) Carbon Dioxide Level 37 mmol/L (21-32) Anion Gap 5 (6-14) Blood Urea Nitrogen 45 mg/dL (7-20) Creatinine 1.3 mg/dL (0.6-1.0) Estimated GFR (Cockcroft-Gault) 40.9 Glucose Level 194 mg/dL (70-99) Calcium Level 8.8 mg/dL (8.5-10.1) Glucose (Fingerstick) 167 mg/dL (70-99) 199 mg/dL (70-99) 199 mg/dL (70-99) Test 08/02/21 04:30 White Blood Count 12.3 x10^3/uL (4.0-11.0) Red Blood Count 2.68 x10^6/uL (3.50-5.40) Hemoglobin 7.8 g/dL (12.0-15.5) Hematocrit 24.5 % (36.0-47.0) Mean Corpuscular Volume 92 fL (79-100) Mean Corpuscular Hemoglobin 29 pg (25-35) Mean Corpuscular Hemoglobin Concent 32 g/dL (31-37) Red Cell Distribution Width 16.9 % (11.5-14.5) Platelet Count 319 x10^3/uL (140-400) Neutrophils (%) (Auto) 88 % (31-73) Lymphocytes (%) (Auto) 7 % (24-48) Monocytes (%) (Auto) 5 % (0-9) Eosinophils (%) (Auto) 0 % (0-3) Basophils (%) (Auto) 0 % (0-3) Neutrophils # (Auto) 10.8 x10^3/uL (1.8-7.7) Lymphocytes # (Auto) 0.9 x10^3/uL (1.0-4.8) Monocytes # (Auto) 0.6 x10^3/uL (0.0-1.1) Eosinophils # (Auto) 0.0 x10^3/uL (0.0-0.7) Basophils # (Auto) 0.0 x10^3/uL (0.0-0.2) Sodium Level 140 mmol/L (136-145) Potassium Level 4.5 mmol/L (3.5-5.1) Chloride Level 99 mmol/L (98-107) Carbon Dioxide Level 41 mmol/L (21-32) Anion Gap 0 (6-14) Blood Urea Nitrogen 43 mg/dL (7-20) Creatinine 1.8 mg/dL (0.6-1.0) Estimated GFR (Cockcroft-Gault) 28.1 Glucose Level 154 mg/dL (70-99) Calcium Level 8.5 mg/dL (8.5-10.1) Medications Active Scripts Medications Dose Route/Sig Max Daily Dose Days Date Category Ferrous Sulfate 325 Mg Tablet 1 Tab PO DAILY 07/26/21 Reported Sucralfate 1 Gm Tablet 1 Tab PO QID 07/26/21 Reported Clopidogrel (Clopidogrel Bisulfate) 75 Mg Tablet 1 Tab PO DAILY 07/20/21 Reported Methocarbamol 500 Mg Tablet 1,000 Mg PO PRN BID PRN 05/25/21 Reported Spironolactone 25 Mg Tablet 25 Mg PO DAILY 05/19/21 Reported Metoprolol Succinate ( Xl ) (Metoprolol Succinate) 25 Mg Tab.er.24h 25 Mg PO DAILY 05/19/21 Reported Voltaren Arthritis Pain (Diclofenac Sodium) 20 Gm Gel..gram. 20 Gm TP PRN PRN 05/19/21 Reported Entresto 24 mg-26 mg Tablet (Sacubitril/Valsartan) 1 Each Tablet 1 Each PO BID 30 11/19/20 Rx Gabapentin (Gabapentin) 100 Mg Capsule 100 Mg PO TID 10/18/20 Reported Alendronate Sodium 70 Mg Tablet 1 Tab PO WEEKLY 10/16/20 Reported Allopurinol 300 Mg Tablet 1 Tab PO DAILY 10/16/20 Reported Trelegy Ellipta 100-62.5-25 (Fluticasone/Umeclidin/Vilanter) 1 Each Blst.w.dev 1 Each IH DAILY 6/15/20 Reported Prilosec Otc (Omeprazole Magnesium) 20 Mg Tablet.dr 40 Mg PO DAILY 03/17/20 Reported Duoneb 0.5-3(2.5) Mg/3 Ml (Albuterol/Ipratropium) 3 Ml Ampul.neb 3 Ml NEB Q4HRS 14 10/22/19 Rx K-Tab ER (Potassium Chloride) 20 Meq Tablet.er 20 Meq PO DAILY 07/30/19 Reported Montelukast Sodium Tablet (Montelukast Sodium) 10 Mg Tablet 10 Mg PO HS 07/29/19 Reported Levocetirizine Dihydrochloride 5 Mg Tablet 5 Mg PO DAILY 07/29/19 Reported Amitriptyline Hcl 25 Mg Tablet 25 Mg PO QHS 07/29/19 Reported Aspir 81 (Aspirin) 81 Mg Tablet.dr 1 Tab PO DAILY 01/03/18 Reported Vitamin D3 (Cholecalciferol (Vitamin D3)) 1,000 Unit Tablet 1 Tab PO DAILY 01/02/18 Reported Torsemide 20 Mg Tablet 2 Tab PO DAILY 01/02/18 Reported Daliresp (Roflumilast) 500 Mcg Tablet 1 Tab PO DAILY 09/23/17 Reported Atorvastatin Calcium 20 Mg Tablet 20 Mg PO HS 09/23/17 Reported Requip (Ropinirole Hcl) 1 Mg Tablet 3 Tab PO QHS 09/23/17 Reported Proair Hfa Inhaler (Albuterol Sulfate) 8.5 Gm Hfa.aer.ad 1 Puff INH PRN Q6HRS PRN 09/23/17 Reported Levothyroxine Sodium 50 Mcg Tablet 1 Tab PO DAILY 09/23/17 Reported Impression . IMPRESSION: 1. Progressive dyspnea secondary to acute exacerbation of chronic obstructive pulmonary disease. 2. Chronic respiratory failure. 3. Abnormal CT revealing right upper lobe nodule, currently measuring 1 cm. Previous workup is nondiagnostic. 4. Chronic obstructive pulmonary disease. 5. Hyperlipidemia. 6. Viral tracheobronchitis Plan . Updated 08/02 prednisone 40 mg w taper by 10 mg q 3 d BD ICS 02 titration PT/OT ok to dc with home health Follow-up with Dr. Casillas Updated 08/01 change solumedrol to prednisone 40 mg w taper by 10 mg q 3 d 02 titration PT/OT ok to dc with home health Follow-up with Dr. Casillas Updated 07/31 PT evaluation Possible home today or tomorrow with home health Follow-up with Dr. Casillas as instructed to do so Updated 07/30 Wheezing and coughing worse today Continue current [facility] updated 07/29 Patient currently on Solu-Medrol 125 mg twice daily Add Pepcid 20 mg twice daily Suspect wheezing related to viral tracheobronchitis, will last for several days to week, KING CHUNG MD Aug 02, 2021 06:13
[2021-08-02 07:00] VITALS: BP 107/41
--- NOTE | 2021-08-02 07:06 | PDOC ---
[facility] PROGRESS NOTE Date of Service DOS: DATE: 08/02/21 TIME: 07:06 Chief Complaint Chief Complaint End-stage COPD Exacerbation Bronchitis Intractable cough Respiratory Failure CAD CHF diabetes hypertension hyperlipidemia hypothyroidism AICD Hx left shoulder surgery, Hx tobacco abuse (quit 3 years ago) LAILA MDD History of Present Illness History of Present Illness Ms Mathur is a 66 yo F with PMHx end-stage COPD on home O2, diabetes, hypertension, hyperlipidemia, hypothyroidism, CHF s/p AICD, previous tobacco abuse but she quit 3 years ago, anxiety and depression who comes through ED for progressive shortness of breath, cough, wheezing. Admitted for further care with consultation with Pulmonary Medicine. 07/27: Pt visibly dyspneic and coughing,currently on 3L by ID 07/28: No acute overnight events noted. Pt still audibly wheezing and SOA. Pt is satting ~98 on 3L by ID 07/29: Pt's wheezing slightly improved, though pt still reports not feeling well, SOA, and coughing. Pt satting ~98 on 3L by ID 07/30: Social work meeting today, she refused palliative, refused skilled 07/31: Afebrile overnight. Cough is still pretty violent and now she has a h eadache and sore throat. Not feeling any better. Able to get up and ambulate with a walker but not very far. 08/01: Nausea today, poor po intake. weak, lung exam grossly audible, Creatinine increased to 1.8 today. Holding torsemide and Entresto. C/o abdominal fullness and gas today, no BM in the past day. Feels worse. Vitals/I&O Vitals/I&O: Vital Signs Date Time Temp Pulse Resp B/P (MAP) Pulse Ox O2 Delivery O2 Flow Rate FiO2 08/02/21 03:34 97.9 68 18 93/40 (57) 100 Nasal Cannula 97.9 08/01/21 20:20 3.0 I & O 08/01/21 08/01/21 08/02/21 15:00 23:00 07:00 Intake Total 180 ml 1080 ml Output Total 0 ml Balance 180 ml 1080 ml 0 ml Physical Exam General: Alert, Oriented X3, Cooperative Heart: Regular rate, Normal S1, Normal S2 Lungs: Wheezing, Crackles (flock of seagulls), Other (b lat diminished ) Abdomen: Normal bowel sounds, Soft Extremities: No cyanosis, No edema Skin: No rashes, No breakdown Labs Labs: Laboratory Tests Test 08/01/21 07:15 08/01/21 07:44 08/01/21 11:56 08/01/21 16:41 White Blood Count 12.1 x10^3/uL (4.0-11.0) Red Blood Count 2.99 x10^6/uL (3.50-5.40) Hemoglobin 8.8 g/dL (12.0-15.5) Hematocrit 27.7 % (36.0-47.0) Mean Corpuscular Volume 93 fL (79-100) Mean Corpuscular Hemoglobin 29 pg (25-35) Mean Corpuscular Hemoglobin Concent 32 g/dL (31-37) Red Cell Distribution Width 17.1 % (11.5-14.5) Platelet Count 368 x10^3/uL (140-400) Neutrophils (%) (Auto) 94 % (31-73) Lymphocytes (%) (Auto) 4 % (24-48) Monocytes (%) (Auto) 2 % (0-9) Eosinophils (%) (Auto) 0 % (0-3) Basophils (%) (Auto) 0 % (0-3) Neutrophils # (Auto) 11.3 x10^3/uL (1.8-7.7) Lymphocytes # (Auto) 0.5 x10^3/uL (1.0-4.8) Monocytes # (Auto) 0.3 x10^3/uL (0.0-1.1) Eosinophils # (Auto) 0.0 x10^3/uL (0.0-0.7) Basophils # (Auto) 0.0 x10^3/uL (0.0-0.2) Sodium Level 141 mmol/L (136-145) Potassium Level 4.0 mmol/L (3.5-5.1) Chloride Level 99 mmol/L (98-107) Carbon Dioxide Level 37 mmol/L (21-32) Anion Gap 5 (6-14) Blood Urea Nitrogen 45 mg/dL (7-20) Creatinine 1.3 mg/dL (0.6-1.0) Estimated GFR (Cockcroft-Gault) 40.9 Glucose Level 194 mg/dL (70-99) Calcium Level 8.8 mg/dL (8.5-10.1) Glucose (Fingerstick) 167 mg/dL (70-99) 199 mg/dL (70-99) 199 mg/dL (70-99) Test 08/02/21 04:30 White Blood Count 12.3 x10^3/uL (4.0-11.0) Red Blood Count 2.68 x10^6/uL (3.50-5.40) Hemoglobin 7.8 g/dL (12.0-15.5) Hematocrit 24.5 % (36.0-47.0) Mean Corpuscular Volume 92 fL (79-100) Mean Corpuscular Hemoglobin 29 pg (25-35) Mean Corpuscular Hemoglobin Concent 32 g/dL (31-37) Red Cell Distribution Width 16.9 % (11.5-14.5) Platelet Count 319 x10^3/uL (140-400) Neutrophils (%) (Auto) 88 % (31-73) Lymphocytes (%) (Auto) 7 % (24-48) Monocytes (%) (Auto) 5 % (0-9) Eosinophils (%) (Auto) 0 % (0-3) Basophils (%) (Auto) 0 % (0-3) Neutrophils # (Auto) 10.8 x10^3/uL (1.8-7.7) Lymphocytes # (Auto) 0.9 x10^3/uL (1.0-4.8) Monocytes # (Auto) 0.6 x10^3/uL (0.0-1.1) Eosinophils # (Auto) 0.0 x10^3/uL (0.0-0.7) Basophils # (Auto) 0.0 x10^3/uL (0.0-0.2) Sodium Level 140 mmol/L (136-145) Potassium Level 4.5 mmol/L (3.5-5.1) Chloride Level 99 mmol/L (98-107) Carbon Dioxide Level 41 mmol/L (21-32) Anion Gap 0 (6-14) Blood Urea Nitrogen 43 mg/dL (7-20) Creatinine 1.8 mg/dL (0.6-1.0) Estimated GFR (Cockcroft-Gault) 28.1 Glucose Level 154 mg/dL (70-99) Calcium Level 8.5 mg/dL (8.5-10.1) Assessment and Plan Assessmemt and Plan Problems Medical Problems: (1) COPD exacerbation Status: Acute Comment Review of Relevant I have reviewed the following items jon (where applicable) has been applied. Medications: Current Medications Medications (Trade) Dose Ordered Sig/Keshav Route PRN Reason Start Time Stop Time Status Last Admin Dose Admin Prednisone (Prednisone) 40 mg DAILY PO 08/01/21 09:00 08/01/21 08:33 Ondansetron HCl (Zofran) 4 mg PRN Q8HRS PRN IVP NAUSEA/VOMITING 08/01/21 12:30 08/01/21 12:24 Justifications for Admission Other Justification MALFUNCTIONING PHONG RICK MD Aug 02, 2021 07:06
[2021-08-02] MEDS: INSULIN LISPRO 300 UNITS/3 ML VIAL. SQ SCH ×4 (08:00→21:25)
[2021-08-02] MEDS: predniSONE 20 MG TABLET PO SCH (08:17)
[2021-08-02] MEDS: ROFLUMILAST 500 MCG TABLET. PO SCH (08:17)
[2021-08-02] MEDS: LACTOBACILLUS RHAMNOSUS GG 1 CAPSULE. PO SCH ×2 (08:17→20:19)
[2021-08-02] MEDS: CHOLECALCIFEROL (VITAMIN D3) 1,000 UNIT TABLET PO SCH (08:17)
[2021-08-02] MEDS: CLOPIDOGREL BISULFATE 75 MG TABLET PO SCH (08:18)
[2021-08-02] MEDS: SPIRONOLACTONE 25 MG TABLET PO SCH (08:18)
[2021-08-02] MEDS: CETIRIZINE HCL 10 MG TABLET. PO SCH (08:18)
[2021-08-02] MEDS: ALLOPURINOL 300 MG TABLET. PO SCH (08:18)
[2021-08-02] MEDS: DOXYCYCLINE HYCLATE 100 MG TABLET PO SCH ×2 (08:19→20:19)
[2021-08-02] MEDS: PANTOPRAZOLE 40 MG TABLET.DR. PO SCH (08:19)
[2021-08-02] MEDS: METOPROLOL SUCC 24HR ER 25 MG TAB.ER.24H. PO SCH (08:19)
[2021-08-02] MEDS: FAMOTIDINE 20 MG TABLET. PO SCH (08:19)
[2021-08-02] MEDS: FERROUS SULFATE 325 MG TABLET. PO SCH (08:19)
[2021-08-02] MEDS: GABAPENTIN 100 MG CAPSULE. PO SCH ×3 (08:20→20:19)
[2021-08-02] MEDS: ASPIRIN ENTERIC COATED 81 MG TABLET.DR. PO SCH (08:20)
[2021-08-02] MEDS: ENOXAPARIN 40 MG/0.4 ML SYRINGE. SQ SCH (08:21)
[2021-08-02] MEDS: IPRATRPIUM/ALBUTEROL 0.5/2.5MG 3 ML NEBU. NEB SCH ×4 (08:52→18:12)
[2021-08-02] MEDS: BUDESONIDE 0.5 MG/2 ML NEBU. NEB SCH ×2 (08:52→18:12)
[2021-08-02] MEDS ORDERED: NON FORMULARY ITEM (Alendronate Sodium 1 TAB) PO SCH (09:00)
[2021-08-02] MEDS ORDERED: SIMETHICONE 80 MG TAB.CHEW PO PRN (10:45)
[2021-08-02 11:00] VITALS: BP 115/33
[2021-08-02] MEDS: SUCRALFATE 1 GM TABLET. PO SCH ×4 (12:13→20:19)
[2021-08-02 15:00] VITALS: BP 112/34
[2021-08-02 19:00] VITALS: BP 109/37
[2021-08-02] MEDS: ATORVASTATIN CALCIUM 20 MG TABLET PO SCH (20:19)
[2021-08-02] MEDS: AMITRIPTYLINE HCL 25 MG TABLET. PO SCH (20:19)
[2021-08-02] MEDS: ASA/APAP/CAFFEINE 250/250/65MG TABLET. PO PRN (20:19)
[2021-08-02] MEDS: rOPINIRole 1 MG TABLET. PO SCH (20:20)
[2021-08-02 23:03] VITALS: BP 126/61
[2021-08-03 03:15] VITALS: BP 102/44
[2021-08-03] MEDS: LEVOTHYROXINE 50 MCG TABLET PO SCH (05:58)
[2021-08-03] MEDS: BUDESONIDE 0.5 MG/2 ML NEBU. NEB SCH (06:11)
[2021-08-03] MEDS: IPRATRPIUM/ALBUTEROL 0.5/2.5MG 3 ML NEBU. NEB SCH ×3 (06:11→15:41)
[2021-08-03 07:00] VITALS: BP 97/33
--- NOTE | 2021-08-03 08:44 | PDOC ---
PULMONARY PROGRESS NOTES DATE: 08/03/21 TIME: 08:44 Subjective NOT SOA SOME BACK PAIN Vitals Vital Signs Date Time Temp Pulse Resp B/P (MAP) Pulse Ox O2 Delivery O2 Flow Rate FiO2 08/03/21 07:00 98.4 84 20 97/33 (54) 100 Nasal Cannula 98.4 08/03/21 06:12 3.0 ROS: No Nausea, No Chest Pain, No Abdominal Pain, No Increase Cough General: Alert, Oriented X4, No acute distress HEENT: Other Lungs: Wheezing, Crackles (flock of seagulls), Other (b lat diminished ) Cardiovascular: S1, S2 Abdomen: Soft, Non-tender Neuro Exam: Alert Extremities: No Edema Skin: Warm Labs Laboratory Tests Test 08/01/21 11:56 08/01/21 16:41 08/02/21 04:30 08/02/21 07:57 Glucose (Fingerstick) 199 mg/dL (70-99) 199 mg/dL (70-99) 116 mg/dL (70-99) White Blood Count 12.3 x10^3/uL (4.0-11.0) Red Blood Count 2.68 x10^6/uL (3.50-5.40) Hemoglobin 7.8 g/dL (12.0-15.5) Hematocrit 24.5 % (36.0-47.0) Mean Corpuscular Volume 92 fL (79-100) Mean Corpuscular Hemoglobin 29 pg (25-35) Mean Corpuscular Hemoglobin Concent 32 g/dL (31-37) Red Cell Distribution Width 16.9 % (11.5-14.5) Platelet Count 319 x10^3/uL (140-400) Neutrophils (%) (Auto) 88 % (31-73) Lymphocytes (%) (Auto) 7 % (24-48) Monocytes (%) (Auto) 5 % (0-9) Eosinophils (%) (Auto) 0 % (0-3) Basophils (%) (Auto) 0 % (0-3) Neutrophils # (Auto) 10.8 x10^3/uL (1.8-7.7) Lymphocytes # (Auto) 0.9 x10^3/uL (1.0-4.8) Monocytes # (Auto) 0.6 x10^3/uL (0.0-1.1) Eosinophils # (Auto) 0.0 x10^3/uL (0.0-0.7) Basophils # (Auto) 0.0 x10^3/uL (0.0-0.2) Sodium Level 140 mmol/L (136-145) Potassium Level 4.5 mmol/L (3.5-5.1) Chloride Level 99 mmol/L (98-107) Carbon Dioxide Level 41 mmol/L (21-32) Anion Gap 0 (6-14) Blood Urea Nitrogen 43 mg/dL (7-20) Creatinine 1.8 mg/dL (0.6-1.0) Estimated GFR (Cockcroft-Gault) 28.1 Glucose Level 154 mg/dL (70-99) Calcium Level 8.5 mg/dL (8.5-10.1) Test 08/02/21 11:58 08/02/21 16:56 08/02/21 20:32 08/03/21 07:24 Glucose (Fingerstick) 155 mg/dL (70-99) 284 mg/dL (70-99) 261 mg/dL (70-99) 91 mg/dL (70-99) Laboratory Tests Test 08/02/21 11:58 08/02/21 16:56 08/02/21 20:32 08/03/21 07:24 Glucose (Fingerstick) 155 mg/dL (70-99) 284 mg/dL (70-99) 261 mg/dL (70-99) 91 mg/dL (70-99) Medications Active Scripts Medications Dose Route/Sig Max Daily Dose Days Date Category Ferrous Sulfate 325 Mg Tablet 1 Tab PO DAILY 07/26/21 Reported Sucralfate 1 Gm Tablet 1 Tab PO QID 07/26/21 Reported Clopidogrel (Clopidogrel Bisulfate) 75 Mg Tablet 1 Tab PO DAILY 07/20/21 Reported Methocarbamol 500 Mg Tablet 1,000 Mg PO PRN BID PRN 05/25/21 Reported Spironolactone 25 Mg Tablet 25 Mg PO DAILY 05/19/21 Reported Metoprolol Succinate ( Xl ) (Metoprolol Succinate) 25 Mg Tab.er.24h 25 Mg PO DAILY 05/19/21 Reported Voltaren Arthritis Pain (Diclofenac Sodium) 20 Gm Gel..gram. 20 Gm TP PRN PRN 05/19/21 Reported Entresto 24 mg-26 mg Tablet (Sacubitril/Valsartan) 1 Each Tablet 1 Each PO BID 30 11/19/20 Rx Gabapentin (Gabapentin) 100 Mg Capsule 100 Mg PO TID 10/18/20 Reported Alendronate Sodium 70 Mg Tablet 1 Tab PO WEEKLY 10/16/20 Reported Allopurinol 300 Mg Tablet 1 Tab PO DAILY 10/16/20 Reported Trelegy Ellipta 100-62.5-25 (Fluticasone/Umeclidin/Vilanter) 1 Each Blst.w.dev 1 Each IH DAILY 03/17/20 Reported Prilosec Otc (Omeprazole Magnesium) 20 Mg Tablet.dr 40 Mg PO DAILY 03/17/20 Reported Duoneb 0.5-3(2.5) Mg/3 Ml (Albuterol/Ipratropium) 3 Ml Ampul.neb 3 Ml NEB Q4HRS 14 10/22/19 Rx K-Tab ER (Potassium Chloride) 20 Meq Tablet.er 20 Meq PO DAILY 07/30/19 Reported Montelukast Sodium Tablet (Montelukast Sodium) 10 Mg Tablet 10 Mg PO HS 07/29/19 Reported Levocetirizine Dihydrochloride 5 Mg Tablet 5 Mg PO DAILY 07/29/19 Reported Amitriptyline Hcl 25 Mg Tablet 25 Mg PO QHS 07/29/19 Reported Aspir 81 (Aspirin) 81 Mg Tablet.dr 1 Tab PO DAILY 01/03/18 Reported Vitamin D3 (Cholecalciferol (Vitamin D3)) 1,000 Unit Tablet 1 Tab PO DAILY 01/02/18 Reported Torsemide 20 Mg Tablet 2 Tab PO DAILY 01/02/18 Reported Daliresp (Roflumilast) 500 Mcg Tablet 1 Tab PO DAILY 09/23/17 Reported Atorvastatin Calcium 20 Mg Tablet 20 Mg PO HS 09/23/17 Reported Requip (Ropinirole Hcl) 1 Mg Tablet 3 Tab PO QHS 09/23/17 Reported Proair Hfa Inhaler (Albuterol Sulfate) 8.5 Gm Hfa.aer.ad 1 Puff INH PRN Q6HRS PRN 09/23/17 Reported Levothyroxine Sodium 50 Mcg Tablet 1 Tab PO DAILY 09/23/17 Reported Impression . IMPRESSION: 1. Progressive dyspnea secondary to acute exacerbation of chronic obstructive pulmonary disease. 2. Chronic respiratory failure. 3. Abnormal CT revealing right upper lobe nodule, currently measuring 1 cm. Previous workup is nondiagnostic. 4. Chronic obstructive pulmonary disease. 5. Hyperlipidemia. 6. Viral tracheobronchitis Plan . OK FOLLOW UP WITH DR EASTMAN Updated 08/02 prednisone 40 mg w taper by 10 mg q 3 d BD ICS 02 titration PT/OT ok to dc with home health Follow-up with Dr. Casillas Updated 08/01 change solumedrol to prednisone 40 mg w taper by 10 mg q 3 d 02 titration PT/OT ok to dc with home health Follow-up with LETICIA Campbell MD Aug 03, 2021 08:44
[2021-08-03 08:47] LABS: BLOOD UREA NITROGEN 34 mg/dL (7-20); CALCIUM 9.5 mg/dL (8.5-10.1); CARBON DIOXIDE 39 mmol/L (21-32); CHLORIDE 101 mmol/L (98-107); CREATININE 1.1 mg/dL (0.6-1.0); GFR 49.5; GLUCOSE 96 mg/dL (70-99); MAGNESIUM 2.5 mg/dL (1.8-2.4); POTASSIUM 4.1 mmol/L (3.5-5.1); SODIUM 139 mmol/L (136-145)
[2021-08-03] MEDS: CLOPIDOGREL BISULFATE 75 MG TABLET PO SCH (08:58)
[2021-08-03] MEDS: FERROUS SULFATE 325 MG TABLET. PO SCH (08:58)
[2021-08-03] MEDS: ASPIRIN ENTERIC COATED 81 MG TABLET.DR. PO SCH (08:58)
[2021-08-03] MEDS: SPIRONOLACTONE 25 MG TABLET PO SCH (08:58)
[2021-08-03] MEDS: CHOLECALCIFEROL (VITAMIN D3) 1,000 UNIT TABLET PO SCH (08:58)
[2021-08-03] MEDS: PANTOPRAZOLE 40 MG TABLET.DR. PO SCH (08:59)
[2021-08-03] MEDS: ALLOPURINOL 300 MG TABLET. PO SCH (08:59)
[2021-08-03] MEDS: DOXYCYCLINE HYCLATE 100 MG TABLET PO SCH (08:59)
[2021-08-03] MEDS: CETIRIZINE HCL 10 MG TABLET. PO SCH (08:59)
[2021-08-03] MEDS: LACTOBACILLUS RHAMNOSUS GG 1 CAPSULE. PO SCH (08:59)
[2021-08-03] MEDS: GABAPENTIN 100 MG CAPSULE. PO SCH ×2 (08:59→16:17)
[2021-08-03] MEDS: predniSONE 20 MG TABLET PO SCH (08:59)
[2021-08-03] MEDS: ROFLUMILAST 500 MCG TABLET. PO SCH (08:59)
[2021-08-03] MEDS: ENOXAPARIN 40 MG/0.4 ML SYRINGE. SQ SCH (09:00)
[2021-08-03] MEDS: METOPROLOL SUCC 24HR ER 25 MG TAB.ER.24H. PO SCH (09:00)
[2021-08-03 11:00] VITALS: BP 94/30
[2021-08-03] MEDS: INSULIN LISPRO 300 UNITS/3 ML VIAL. SQ SCH ×2 (12:00→17:00)
--- NOTE | 2021-08-03 12:39 | SNU/HH DC ---
DISCHARGE WITH HOME HEALTH DISCHARGE INFORMATION: Discharge Date: Aug 03, 2021 Final Diagnosis: Problems Medical Problems: (1) COPD exacerbation Status: Acute Condition on Discharge: Guarded CODE STATUS: Code Status: Full HOME HEALTH: Face to Face: I certify this patient is under my care and that I, or a nurse practitioner or physician's physician assistant surgery working with me, had a face to face encounter that meets the physician face to face encounter requirements with this patient on []. Medical Complications: COPD Fci For: Medication Management RN For Eval/Treatment: Yes Physical Therapy For: Evalulation/Treatment Occupational Therapy For: Evaluation/Treatment Pt Meets Homebound Status: Fatigue w/ amb., Limited distance walking, Unable to negotiate home POST DISCHARGE ORDERS: Activity Instructions for Disc: Activity as tolerated Weight Bearing Status after Di: Full weight bearing Bathing Instructions: No Tub Bath until see Dr. CABA AFTER DISCHARGE: Cardiac Wound/Incision Care: Change dressing, May get incision wet CHECKS AFTER DISCHARGE: Checks after discharge: Check blood press - daily, Check your Temp as needed, Weigh Yourself Daily FOLLOW-UP: Follow up with: PCP within 2 weeks of discharge Follow Up With: Pulmonology as needed TREATMENT/EQUIPMENT ORDERS: Adaptive Equipment Issued: None Discharge Respiratory Equipmen: Oxygen, Nebulizer CERTIFICATION STATEMENT: Certification Statement: Certification Statement: Based on the above finding, I certify that this patient is confined to the home and needs intermittent prison care, physical therapy and/or speech therapy, or continues to need occupational therapy.~ This patient is under my care, and I have initiated the establishment of the plan of care.~ This patient will be followed by myself or a community physician who will periodically review the plan of care. Home Meds Active Scripts Sacubitril/Valsartan (Entresto 24 mg-26 mg Tablet) 1 Each Tablet, 1 EACH PO BID for chf for 30 Days, #60 TAB 2 Refills Prov:KJ LORA APRN 11/19/20 Ipratropium/Albuterol Sulfate (DUONEB 0.5-3(2.5) MG/3 ML) 3 Ml Ampul.neb, 3 ML NEB Q4HRS for WHEEZING, COUGH for 14 Days, #84 EACH Prov:PHONG YEBOAH MD 10/22/19 Reported Medications Ferrous Sulfate (FERROUS SULFATE) 325 Mg Tablet, 1 TAB PO DAILY for supplement, #30 TAB 3 Refills 07/26/21 Sucralfate (SUCRALFATE) 1 Gm Tablet, 1 TAB PO QID for gerd, #120 TAB 3 Refills 07/26/21 Clopidogrel Bisulfate (CLOPIDOGREL) 75 Mg Tablet, 1 TAB PO DAILY for rx, #90 TAB 1 Refill 07/20/21 Methocarbamol (METHOCARBAMOL) 500 Mg Tablet, 1000 MG PO PRN BID PRN for muscle relaxer, TAB 05/25/21 Spironolactone (SPIRONOLACTONE) 25 Mg Tablet, 25 MG PO DAILY for , TAB 05/19/21 Metoprolol Succinate (METOPROLOL SUCCINATE ( XL )) 25 Mg Tab.er.24h, 25 MG PO DAILY for FOR HYPERTENSION, #30 TAB 0 Refills 05/19/21 Diclofenac Sodium (Voltaren Arthritis Pain) 20 Gm Gel..gram., 20 GM TP PRN PRN for PAIN, EACH 05/19/21 Gabapentin (GABAPENTIN ) 100 Mg Capsule, 100 MG PO TID for NEUROGENIC PAIN, CAP 10/18/20 Alendronate Sodium (ALENDRONATE SODIUM) 70 Mg Tablet, 1 TAB PO WEEKLY for 10/16/20 Allopurinol (ALLOPURINOL) 300 Mg Tablet, 1 TAB PO DAILY for gout 10/16/20 Fluticasone/Umeclidin/Vilanter (Trelegy Ellipta 100-62.5-25) 1 Each Blst.w.dev, 1 EACH IH DAILY for rx 03/17/20 Omeprazole Magnesium (PRILOSEC OTC) 20 Mg Tablet.dr, 40 MG PO DAILY for rx, TAB 03/17/20 Potassium Chloride (K-Tab ER) 20 Meq Tablet.er, 20 MEQ PO DAILY for hypokalemia 07/30/19 Montelukast Sodium (MONTELUKAST SODIUM TABLET ) 10 Mg Tablet, 10 MG PO HS for FOR ASTHMA, TAB 0 Refills 07/29/19 Levocetirizine Dihydrochloride (LEVOCETIRIZINE DIHYDROCHLORIDE) 5 Mg Tablet, 5 MG PO DAILY for allergies, TAB 07/29/19 Amitriptyline Hcl (AMITRIPTYLINE HCL) 25 Mg Tablet, 25 MG PO QHS for nerve pain, TAB 07/29/19 Aspirin (ASPIR 81) 81 Mg Tablet.dr, 1 TAB PO DAILY, #30 TAB 5 Refills 01/03/18 Cholecalciferol (Vitamin D3) (VITAMIN D3) 1,000 Unit Tablet, 1 TAB PO DAILY, #30 TAB 5 Refills 01/02/18 Torsemide (TORSEMIDE) 20 Mg Tablet, 2 TAB PO DAILY for , #90 TAB 1 Refill 01/02/18 Roflumilast (DALIRESP) 500 Mcg Tablet, 1 TAB PO DAILY, #90 TAB 3 Refills 09/23/17 Atorvastatin Calcium (ATORVASTATIN CALCIUM) 20 Mg Tablet, 20 MG PO HS for FOR CHOLESTEROL, #30 TAB 0 Refills 09/23/17 Ropinirole Hcl (REQUIP) 1 Mg Tablet, 3 TAB PO QHS, #30 TAB 2 Refills 09/23/17 Albuterol Sulfate (PROAIR HFA INHALER) 8.5 Gm Hfa.aer.ad, 1 PUFF INH PRN Q6HRS PRN for SHORTNESS OF BREATH, INHALER 0 Refills 09/23/17 Levothyroxine Sodium (LEVOTHYROXINE SODIUM) 50 Mcg Tablet, 1 TAB PO DAILY, #30 TAB 5 Refills 09/23/17 BRAYAN RAYMOND MD Aug 03, 2021 12:39
[2021-08-03] MEDS ORDERED: PRED-220 PO (12:44)
[2021-08-03] MEDS: SUCRALFATE 1 GM TABLET. PO SCH ×2 (13:21→16:17)
--- NOTE | 2021-08-03 17:21 | NUR ---
Discharge Note: JAYCOB CRAWFORD [address] Discharge instructions and discharge home medications reviewed with the patient and a copy given. All questions have been answered and understanding verbalized. The following instructions and handouts were given: Home meds as directed. Prednisone prescribed, sent to pharmacy. Continue home oxygen Resume nebulization upon arrival at home. Follow up with Dr. Tejeda, call for appointment, calling card given to the patient. Home health to check patient's progress. Discontinued lines and drains: peripheral IV intact, patient tolerated removal, no complications noted. Patient discharged to home with home health accompanied by the patient's at 1635.
--- NOTE | 2021-08-13 10:21 | PDOC3 ---
[facility]-Discharge Summary Date of Admission: Date of Admission: Jul 26, 2021 Date of Discharge: Date of Discharge: Aug 03, 2021 Discharge Diagnosis: Discharge Diagnosis: End-stage COPD Exacerbation Bronchitis Intractable cough Respiratory Failure CAD CHF diabetes hypertension hyperlipidemia hypothyroidism AICD Hx left shoulder surgery, Hx tobacco abuse (quit 3 years ago) LAILA MDD Hospital Course: Hospital Course: 66 yo F with PMHx end-stage COPD on home O2, diabetes, hypertension, hyper lipidemia, hypothyroidism, CHF s/p AICD, previous tobacco abuse but she quit 3 years ago, anxiety and depression who comes through ED for progressive shortness of breath, cough, wheezing. Admitted for further care with consultation with Pulmonary Medicine. 07/27: Pt visibly dyspneic and coughing,currently on 3L by NC 07/28: No acute overnight events noted. Pt still audibly wheezing and SOA. Pt is satting ~98 on 3L by NC 07/29: Pt's wheezing slightly improved, though pt still reports not feeling well, SOA, and coughing. Pt satting ~98 on 3L by NC 07/30: Social work meeting today, she refused palliative, refused skilled 07/31: Afebrile overnight. Cough is still pretty violent and now she has a headache and sore throat. Not feeling any better. Able to get up and ambulate with a walker but not very far. 08/01: Nausea today, poor po intake. weak, lung exam grossly audible, Creatinine increased to 1.8 today. Holding torsemide and Entresto. C/o abdominal fullness and gas today, no BM in the past day. Feels worse. By day of discharge, pt was clinically stable and ready for discharge. She was able to have a BM and was not more dyspneic. Continues to have some back pain. Rest of hospital course was uneventful Disposition: Disposition/Orders: D/C to Home Activity: Activity: Resume previous activity Diet: Diet: Cardiac Medications: Home Meds Active Scripts Prednisone (PREDNISONE ) 10 Mg Tablet, 1 TAB PO DAILY for prednisone taper for 3 Days, #3 TAB 0 Refills Prov:BRAYAN RAYMOND MD 08/03/21 Prednisone (PREDNISONE ) 10 Mg Tablet, 2 TAB PO DAILY for prednisone taper for 3 Days, #6 TAB 0 Refills Prov:BRAYAN RAYMOND MD 08/03/21 Prednisone (PREDNISONE ) 10 Mg Tablet, 3 TAB PO DAILY for prednisone taper for 3 Days, #9 TAB 0 Refills Prov:BRAYAN RAYMOND MD 08/03/21 Sacubitril/Valsartan (Entresto 24 mg-26 mg Tablet) 1 Each Tablet, 1 EACH PO BID for chf for 30 Days, #60 TAB 2 Refills Prov:KJ LORA ETHANOL OPERATOR 11/19/20 Ipratropium/Albuterol Sulfate (DUONEB 0.5-3(2.5) MG/3 ML) 3 Ml Ampul.neb, 3 ML NEB Q4HRS for WHEEZING, COUGH for 14 Days, #84 EACH Prov:RIFFEPHONG Whipple MD 10/22/19 Reported Medications Ferrous Sulfate (FERROUS SULFATE) 325 Mg Tablet, 1 TAB PO DAILY for supplement, #30 TAB 3 Refills 07/26/21 Sucralfate (SUCRALFATE) 1 Gm Tablet, 1 TAB PO QID for gerd, #120 TAB 3 Refills 07/26/21 Clopidogrel Bisulfate (CLOPIDOGREL) 75 Mg Tablet, 1 TAB PO DAILY for rx, #90 TAB 1 Refill 07/20/21 Methocarbamol (METHOCARBAMOL) 500 Mg Tablet, 1000 MG PO PRN BID PRN for muscle relaxer, TAB 05/25/21 Spironolactone (SPIRONOLACTONE) 25 Mg Tablet, 25 MG PO DAILY for , TAB 05/19/21 Metoprolol Succinate (METOPROLOL SUCCINATE ( XL )) 25 Mg Tab.er.24h, 25 MG PO DAILY for FOR HYPERTENSION, #30 TAB 0 Refills 05/19/21 Diclofenac Sodium (Voltaren Arthritis Pain) 20 Gm Gel..gram., 20 GM TP PRN PRN for PAIN, EACH 05/19/21 Gabapentin (GABAPENTIN ) 100 Mg Capsule, 100 MG PO TID for NEUROGENIC PAIN, C AP 10/18/20 Alendronate Sodium (ALENDRONATE SODIUM) 70 Mg Tablet, 1 TAB PO WEEKLY for 10/16/20 Allopurinol (ALLOPURINOL) 300 Mg Tablet, 1 TAB PO DAILY for gout 10/16/20 Fluticasone/Umeclidin/Vilanter (Trelegy Ellipta 100-62.5-25) 1 Each Blst.w.dev, 1 EACH IH DAILY for rx 03/17/20 Omeprazole Magnesium (PRILOSEC OTC) 20 Mg Tablet.dr, 40 MG PO DAILY for rx, TAB 03/17/20 Potassium Chloride (K-Tab ER) 20 Meq Tablet.er, 20 MEQ PO DAILY for hypokalemia 07/30/19 Montelukast Sodium (MONTELUKAST SODIUM TABLET ) 10 Mg Tablet, 10 MG PO HS for FOR ASTHMA, TAB 0 Refills 07/29/19 Levocetirizine Dihydrochloride (LEVOCETIRIZINE DIHYDROCHLORIDE) 5 Mg Tablet, 5 MG PO DAILY for allergies, TAB 07/29/19 Amitriptyline Hcl (AMITRIPTYLINE HCL) 25 Mg Tablet, 25 MG PO QHS for nerve pain, TAB 07/29/19 Aspirin (ASPIR 81) 81 Mg Tablet.dr, 1 TAB PO DAILY, #30 TAB 5 Refills 01/03/18 Cholecalciferol (Vitamin D3) (VITAMIN D3) 1,000 Unit Tablet, 1 TAB PO DAILY, #30 TAB 5 Refills 01/02/18 Torsemide (TORSEMIDE) 20 Mg Tablet, 2 TAB PO DAILY for , #90 TAB 1 Refill 01/02/18 Roflumilast (DALIRESP) 500 Mcg Tablet, 1 TAB PO DAILY, #90 TAB 3 Refills 09/23/17 Atorvastatin Calcium (ATORVASTATIN CALCIUM) 20 Mg Tablet, 20 MG PO HS for FOR CHOLESTEROL, #30 TAB 0 Refills 09/23/17 Ropinirole Hcl (REQUIP) 1 Mg Tablet, 3 TAB PO QHS, #30 TAB 2 Refills 09/23/17 Albuterol Sulfate (PROAIR HFA INHALER) 8.5 Gm Hfa.aer.ad, 1 PUFF INH PRN Q6HRS PRN for SHORTNESS OF BREATH, INHALER 0 Refills 09/23/17 Levothyroxine Sodium (LEVOTHYROXINE SODIUM) 50 Mcg Tablet, 1 TAB PO DAILY, #30 TAB 5 Refills 09/23/17 Scheduled Alendronate Sodium (Alendronate Sodium), 1 TAB PO WEEKLY, (Reported) Allopurinol (Allopurinol), 1 TAB PO DAILY, (Reported) Amitriptyline Hcl (Amitriptyline Hcl), 25 MG PO QHS, (Reported) Aspirin (Aspir 81), 1 TAB PO DAILY, (Reported) Atorvastatin Calcium (Atorvastatin Calcium), 20 MG PO HS, (Reported) Cholecalciferol (Vitamin D3) (Vitamin D3), 1 TAB PO DAILY, (Reported) Clopidogrel Bisulfate (Clopidogrel), 1 TAB PO DAILY, (Reported) Ferrous Sulfate (Ferrous Sulfate), 1 TAB PO DAILY, (Reported) Fluticasone/Umeclidin/Vilanter (Trelegy Ellipta 100-62.5-25), 1 EACH IH DAILY, (Reported) Gabapentin (Gabapentin ), 100 MG PO TID, (Reported) Ipratropium/Albuterol Sulfate (Duoneb 0.5-3(2.5) Mg/3 Ml), 3 ML NEB Q4HRS Levocetirizine Dihydrochloride (Levocetirizine Dihydrochloride), 5 MG PO DAILY, (Reported) Levothyroxine Sodium (Levothyroxine Sodium), 1 TAB PO DAILY, (Reported) Metoprolol Succinate (Metoprolol Succinate ( Xl )), 25 MG PO DAILY, (Reported) Montelukast Sodium (Montelukast Sodium Tablet ), 10 MG PO HS, (Reported) Omeprazole Magnesium (Prilosec Otc), 40 MG PO DAILY, (Reported) Potassium Chloride (K-Tab ER), 20 MEQ PO DAILY, (Reported) Prednisone (Prednisone ), 3 TAB PO DAILY Prednisone (Prednisone ), 2 TAB PO DAILY Prednisone (Prednisone ), 1 TAB PO DAILY Roflumilast (Daliresp), 1 TAB PO DAILY, (Reported) Ropinirole Hcl (Requip), 3 TAB PO QHS, (Reported) Sacubitril/Valsartan (Entresto 24 mg-26 mg Tablet), 1 EACH PO BID Spironolactone (Spironolactone), 25 MG PO DAILY, (Reported) Sucralfate (Sucralfate), 1 TAB PO QID, (Reported) Torsemide (Torsemide), 2 TAB PO DAILY, (Reported) Scheduled PRN Albuterol Sulfate (Proair Hfa Inhaler), 1 PUFF INH PRN Q6HRS PRN for SHORTNESS OF BREATH, (Reported) Diclofenac Sodium (Voltaren Arthritis Pain), 20 GM TP PRN PRN for PAIN, (Reported) Methocarbamol (Methocarbamol), 1,000 MG PO PRN BID PRN for muscle relaxer, (Reported) Total Time: Total Time: Total time spent was 35 minutes in preparing scripts, discharge planning with SW and RN, and preparing this discharge summary. Justicifation of Admission Dx: Justifications for Admission: Justification of Admission Dx: Yes BRAYAN RAYMOND MD Aug 13, 2021 10:21
[2021-08-19] MEDS ORDERED: DOXY100C3 PO (13:01)
[2021-08-19] MEDS ORDERED: METH4TAB2 PO (13:01)
== END 2021-08-03 16:35 | disposition home health service (06) | DRG 189 ==
LOC: ER 22:04 → 6 SOUTH 07-26 01:41 → 5 SOUTH 07-30 07:16
PROVIDERS: ADMIT Internal Medicine; ATTEND Internal Medicine
DX: J96.21 Acute and chronic respiratory failure with hypoxia (principal); I50.43 Acute on chronic combined systolic (congestive) and diastolic (congestive) heart failure; J44.1 Chronic obstructive pulmonary disease with (acute) exacerbation; D64.9 Anemia, unspecified; E03.9 Hypothyroidism, unspecified; E11.9 Type 2 diabetes mellitus without complications; E78.00 Pure hypercholesterolemia, unspecified; E78.5 Hyperlipidemia, unspecified; E87.5 Hyperkalemia; F32.9 Major depressive disorder, single episode, unspecified; I25.10 Atherosclerotic heart disease of native coronary artery without angina pectoris; F41.1 Generalized anxiety disorder; Z20.822 Contact with and (suspected) exposure to COVID-19; Z83.3 Family history of diabetes mellitus; Z86.711 Personal history of pulmonary embolism; Z87.891 Personal history of nicotine dependence; Z95.810 Presence of automatic (implantable) cardiac defibrillator; Z99.81 Dependence on supplemental oxygen; Z88.1 Allergy status to other antibiotic agents; Z88.8 Allergy status to other drugs, medicaments and biological substances
CPT/HCPCS: 36415; 71045; 71275; 80048; 81001; 82962; 83036; 83735; 83880; 84443; 84484; 85007; 85025; 87426; 87804; 93005; 94640; 94760; 96374; J1650; J1815; J2405; J2930; J7512; Q9967; U0003; U0005; 97110-GP; 97530-GO; 97530-GP; 99285-25; G0378; J7613; J7626

== ENCOUNTER → 2021-08-12 | Outpatient (CLI) | payer MEDICARE, OTHER ==
[2021-08-03 11:00] VITALS: BP 94/30
[~2021-08-12] MED LIST changes: +DOXY100C3 PO; +METH4TAB2 PO
[2021-08-12 11:55] LABS: BASO % 0 % (0-3); EOS % 0 % (0-3); HEMATOCRIT 28.5 % (36.0-47.0); LYMPH # 0.6 x10^3/uL (1.0-4.8); LYMPH % 3 % (24-48); MEAN CORPUSCULAR HEMOGLOBIN 29 pg (25-35); MEAN CORPUSCULAR HGB CONC 32 g/dL (31-37); MEAN CORPUSCULAR VOLUME 92 fL (79-100); MONO # 0.5 x10^3/uL (0.0-1.1); MONO % 2 % (0-9); NEUT # 19.6 x10^3/uL (1.8-7.7); NEUT % 95 % (31-73); PLATELET COUNT 284 x10^3/uL (140-400); RED BLOOD COUNT 3.11 x10^6/uL (3.50-5.40); RED CELL DISTRIBUTION WIDTH 17.1 % (11.5-14.5); WHITE BLOOD COUNT 20.7 x10^3/uL (4.0-11.0)
[2021-08-12 13:40] LABS: % BANDS 7 % (0-9); % LYMPHS 3 % (24-48); % SEGS 90 % (35-66); PLT ESTIMATE ADEQUATE (ADEQUATE)
[2021-08-13 13:17] LABS: IMMUNOGLOBULIN A 164 mg/dL (87-352); IMMUNOGLOBULIN G 473 mg/dL (586-1602); IMMUNOGLOBULIN M 207 mg/dL (26-217)
[2021-08-13 15:18] LABS: ALPHA 1 0.4 g/dL (0.0-0.4); ALPHA 2 1.2 g/dL (0.4-1.0); GAMMA 0.7 g/dL (0.4-1.8); KAPPA FREE 25.9 mg/L (3.3-19.4); KAPPA LAMBDA RATIO 1.07 (0.26-1.65); LAMBDA FREE 24.1 mg/L (5.7-26.3); PROTEIN TOTAL 6.2 g/dL (6.0-8.5); SPEP AG RATIO 0.9 (0.7-1.7)
== END ==
LOC: ONCLAB 10:57
PROVIDERS: ATTEND Internal Medicine Hematology & Oncology
DX: D64.9 Anemia, unspecified (principal)
CPT/HCPCS: 36415; 82525; 82607; 82668; 82728; 82746; 82784; 83010; 83520; 83540; 83550; 84165; 85007; 85025; 85045; 86334

== ENCOUNTER 2021-08-14 08:22 | Outpatient (CLI) | payer MEDICARE, OTHER ==
[~2021-08-14] VITALS: Ht 152.4 cm; Wt 64.0 kg
[2021-08-14] VITALS (15 sets, daily range): BP systolic 66–90; BP diastolic 35–49
[~2021-08-14 08:22] MED LIST changes: -DOXY100C3 PO; -METH4TAB2 PO
[2021-08-14 09:05] LABS: BASO % 0 % (0-3); EOS # 0.1 x10^3/uL (0.0-0.7); EOS % 1 % (0-3); HEMATOCRIT 28.8 % (36.0-47.0); HEMOGLOBIN 8.8 g/dL (12.0-15.5); LYMPH # 0.5 x10^3/uL (1.0-4.8); LYMPH % 4 % (24-48); MEAN CORPUSCULAR HEMOGLOBIN 28 pg (25-35); MEAN CORPUSCULAR HGB CONC 31 g/dL (31-37); MEAN CORPUSCULAR VOLUME 91 fL (79-100); MONO # 0.3 x10^3/uL (0.0-1.1); MONO % 3 % (0-9); NEUT # 11.5 x10^3/uL (1.8-7.7); NEUT % 93 % (31-73); PLATELET COUNT 269 x10^3/uL (140-400); RED BLOOD COUNT 3.16 x10^6/uL (3.50-5.40); RED CELL DISTRIBUTION WIDTH 17.1 % (11.5-14.5); WHITE BLOOD COUNT 12.4 x10^3/uL (4.0-11.0)
[2021-08-14] MEDS ORDERED: LIDOCAINE WITH 8.4% SOD BICARB 3 ML DISP.SYRIN. ONE (09:11)
[2021-08-14 09:16] LABS: PROTHROMBIN TIME PATIENT 12.1 SEC (11.7-14.0)
[2021-08-14 09:41] LABS: CALCIUM 8.7 mg/dL (8.5-10.1); CREATININE 1.4 mg/dL (0.6-1.0); GFR 37.5; POTASSIUM 3.8 mmol/L (3.5-5.1)
[2021-08-14 09:45] LABS: % BANDS 6 % (0-9); % LYMPHS 2 % (24-48); % SEGS 92 % (35-66); PLT ESTIMATE ADEQUATE (ADEQUATE); POLYCHROMASIA OCCASIONAL
[2021-08-14 09:47] LABS: ANISOCYTOSIS SLIGHT
[2021-08-14] MEDS ORDERED: fentaNYL PF VIAL 100 MCG/2 ML VIAL ONE (10:16)
[2021-08-14] MEDS ORDERED: MIDAZOLAM HCL/PF 2 MG/2 ML VIAL. ONE (10:16)
[2021-08-14] MEDS ORDERED: fentaNYL PF VIAL 100 MCG/2 ML VIAL IV ONE (10:45)
[2021-08-14] MEDS ORDERED: LIDOCAINE WITH 8.4% SOD BICARB 3 ML DISP.SYRIN. IJ ONE (10:45)
[2021-08-14] MEDS ORDERED: MIDAZOLAM HCL/PF 2 MG/2 ML VIAL. IV ONE (10:45)
--- NOTE | 2021-08-14 13:30 | NUR ---
Discharge Note: JAYCOB CRAWFORD Discharge instructions and discharge home medications reviewed with Patient and and a copy given. All questions have been answered and understanding verbalized. The following instructions and handouts were given: Lung biopsy and moderate sedation. Discontinued lines and drains: Right wrist IV dc'd, tip intact, and bandage placed. Patient discharged to home with via personal vehicle.
--- NOTE | 2021-08-14 13:51 | NUR ---
Chest xray reviewed with Dr. Arora. Xray cleared for patient to go home. Pt was asked if she was doing okay and felt well enough to go home. Pt and explained yes, she was feeling better and would rest better at home. Pt was advised; that if she started feeling worse to call Dr. Diego.
--- NOTE | 2021-08-14 17:10 | RAD ---
EXAM: AP View of the chest DATE: 08/14/2021 12:44 PM INDICATION: Reason: post lung biopsy / Spl. Instructions: / History: COMPARISON: 07/25/2021 05/25/2021 FINDINGS: Cardiac generator pack obscures a portion of the left chest with leads in stable position. Cardiac de vice is partially profiled. The heart is not enlarged. Left lung base airspace opacities possibly atelectasis. Nodular opacity right upper lung is more prom inent likely postsurgical. No definite pneumothorax is seen. IMPRESSION: 1. No definite pneumothorax is seen. 2. Nodular opacity right upper lung more prominent, likely postsurgical change. 3. Lower lung base opacity likely atelectasis. Electronically signed by: Bashir Pandya MD (08/14/2021 5:08 PM) [id number]
--- NOTE | 2021-08-17 09:32 | RAD ---
CT-guided biopsy, right upper lobe pulmonary nodule 08/17/2021 indication: Enlarging right upper lobe pulmonary nodule. Prior nondiagnostic biopsy. COMPARISON STUDY: CT of the chest July 26, 2021 Consent: The procedure was explained in its entirety to the patient or the patients designated repres entative by a member of the treatment team, including a discussion of the risks, benefits and commonl y accepted alternatives to the procedure, as well as the expected consequences of no therapy whatsoev er. Discussion of the risks included, but was not limited to, pneumothorax, hemoptysis, those that are most frequent and those that are rare but possibly severe or life-threatening, as well as the pos sibility of unforeseen complications. The patient was brought to the CT scanner and placed in the supine position. A timeout procedure was performed. CT imaging redemonstrates a nodule in the right upper lobe. Anterior chest was prepped and draped using sterile barrier technique. 1% lidocaine was administered for local anesthesia. Under in termittent CT guidance a 17-gauge needle was advanced to the nodule. Core biopsy samples were obtaine d. The needle was removed. Scant pleural air and mild parenchymal hemorrhage is seen, which is stable on serial vomiting. The patient remained asymptomatic. Patient was transferred to the recovery area in stable condition. Sedation: The procedure was performed under conscious sedation including continuous cardiopulmonary m onitoring via a dedicated sedation nurse. [id number] sedation time:: 24 minutes IMPRESSION: CT-guided biopsy, right upper lobe pulmonary nodule CT DOSING PQRS STATEMENT: One or more of the following individualized dose reduction techniques were utilized for this examinat ion: 1. Automated exposure control 2. Adjustment of the mA and/or kV according to patient size 3. Use of iterative reconstruction technique Electronically signed by: Tejas Arora MD (08/17/2021 9:29 AM) [id number]
--- NOTE | 2021-08-17 15:07 | PATHOLOGY ---
[facility] Accession Number: [id number] . 01 Material submitted: . lung - RIGHT LUNG BIOPSY. Modifiers: right . 01 Clinical history: . LUNG MASS RIGHT . 02 Diagnosis: Lung tissue, right lung mass needle biopsies: - Small focus of interstitial fibrosis. (JPM:david; 08/17/2021) QMS 08/17/2021 1111 Local . 02 Comment: Sections of the right lung mass needle biopsy reveal multiple small fragments of lung parenchyma. The latter consists predominantly of lung tissue showing delicate alveolar septa lined by bland appearing pneumocytes. Focally, there are a few intra-alveolar pigmented macrophages. There is a small focus of interstitial fibrosis. There is no evidence of malignancy. (JPM:david; 08/17/2021) . 02 Electronically signed: . Herman Arceo MD, Pathologist NPI- [id number] . 01 Gross description: . The specimen is received in formalin, labeled "Sarah Mathur, right lung mass". Received are multiple segments of pale boateng friable tissue measuring 0.3 x 0.3 x 0.1 cm in aggregate dimensions. The specimen is filtered and entirely submitted in cassette A1. (CAA; 08/14/2021) QAC/QAC 08/14/2021 1510 Local . 02 Pathologist provided ICD-10: J84.10 . 02 CPT . 890271 Specimen Comment: A courtesy copy of this report has been sent to [phone] Specimen Comment: [id number], Specimen Comment: Report sent to , DR EASTMAN, DR BROOKS / DR FORTUNE Performed at: [address] [place] [address] [address], [place], [place] [id number] MD Gerson Rodriguez MD Phone: [phone] Performed at: [address] [id number] MD Herman Arceo MD Phone: [phone]
== END 2021-08-14 13:22 | disposition home or self-care (01) ==
LOC: INTRAD 08:22
PROVIDERS: ATTEND Internal Medicine Pulmonary Disease
DX: R91.8 Other nonspecific abnormal finding of lung field (principal); Z51.81 Encounter for therapeutic drug level monitoring; I11.0 Hypertensive heart disease with heart failure; I50.9 Heart failure, unspecified; I48.91 Unspecified atrial fibrillation; E78.00 Pure hypercholesterolemia, unspecified; J44.9 Chronic obstructive pulmonary disease, unspecified; K21.9 Gastro-esophageal reflux disease without esophagitis; M19.90 Unspecified osteoarthritis, unspecified site; E11.9 Type 2 diabetes mellitus without complications; E03.9 Hypothyroidism, unspecified; Z87.891 Personal history of nicotine dependence; Z90.49 Acquired absence of other specified parts of digestive tract; Z90.710 Acquired absence of both cervix and uterus; Z98.890 Other specified postprocedural states; Z72.89 Other problems related to lifestyle; Z82.49 Family history of ischemic heart disease and other diseases of the circulatory system; Z80.3 Family history of malignant neoplasm of breast; Z88.8 Allergy status to other drugs, medicaments and biological substances; Z88.6 Allergy status to analgesic agent
CPT/HCPCS: 32408; 99152; 99153; J2250; J3010; J3490; 36415; 71045; 80048; 85007; 85025; 85610; 88305

== ENCOUNTER 2021-08-15 15:55 | Inpatient (IN) | payer MEDICARE, OTHER ==
[~2021-08-15] VITALS: Ht 152.4 cm; Wt 69.0 kg
--- NOTE | 2021-08-15 16:28 | PHYS DOC ---
Past Medical History Past Medical History: CAD, CHF, COPD, Diabetes-Type II, High Cholesterol, Hypertension, Hypothyroid Additional Past Medical Histor: O2 dependant Past Surgical History: Pacemaker, Other Additional Past Surgical Histo: left shoulder; pacemaker/defibrillator, R lung bx Smoking Status: Former Smoker Alcohol Use: None Drug Use: None General Adult EDM: Chief Complaint: SHORTNESS OF BREATH HPI: HPI: Patient is a 66-year-old female that presents today for shortness of air. Patient states that she had a right upper lobe lung biopsy done on August 14 and since that time has had increased shortness of air. Patient has a long history of COPD with oxygen dependency, CHF, former smoker, she presents today with increased shortness of breath after her lung biopsy. Patient states she is normally on 3 L nasal cannula of oxygen at home and that has not been helping her shortness of air. Review of Systems: Review of Systems: Constitutional: Denies fever or chills. [] Eyes: Denies change in visual acuity. [] HENT: nasal congestion or no sore throat. [] Respiratory: shortness of breath. [] Cardiovascular: Denies chest pain or edema. [] GI: Denies abdominal pain, nausea, vomiting, bloody stools or diarrhea. [] : Denies dysuria. [] Musculoskeletal: Denies back pain or joint pain. [] Integument: Denies rash. [] Neurologic: Denies headache, focal weakness or sensory changes. [] Endocrine: Denies polyuria or polydipsia. [] Lymphatic: Denies swollen glands. [] Psychiatric: Denies depression or anxiety. [] Heart Score: C/O Chest Pain: N/A Risk Factors: Risk Factors: DM, Current or recent (<one month) smoker, HTN, HLP, family history of CAD, obesity. Risk Scores: Score 0 - 3: 2.5% MACE over next 6 weeks - Discharge Home Score 4 - 6: 20.3% MACE over next 6 weeks - Admit for Clinical Observation Score 7 - 10: 72.7% MACE over next 6 weeks - Early Invasive Strategies Allergies: Allergies: Allergies Coded Allergies Type Severity Reaction Last Updated Verified ibuprofen Allergy Severe Swelling 08/09/18 Yes naproxen Allergy Severe Shortness of Air 10/25/18 Yes piperacillin Allergy Severe Swelling 11/17/19 Yes tazobactam Allergy Severe Swelling 08/09/18 Yes Physical Exam: PE: Constitutional: Well developed, well nourished, no acute distress, non-toxic appearance. [] HENT: Normocephalic, atraumatic, bilateral external ears normal, oropharynx moist, no oral exudates, nose normal. [] Eyes: PERRLA, EOMI, conjunctiva normal, no discharge. [] Neck: Normal range of motion, no tenderness, supple, no stridor. [] Cardiovascular:Heart rate regular rhythm, no murmur [] Lungs & Thorax: Bilateral breath sounds clear to auscultation, increase work of breathing noted Abdomen: Bowel sounds normal, soft, no tenderness, no masses, no pulsatile masses. [] Skin: Warm, dry, no erythema, no rash. [] Back: No tenderness, no CVA tenderness. [] Extremities: No tenderness, no cyanosis, no clubbing, ROM intact, no edema. [] Neurologic: Alert and oriented X 3, normal motor function, normal sensory function, no focal deficits noted. [] Psychologic: Affect normal, judgement normal, mood normal. [] Current Patient Data: Labs: Laboratory Tests Test 08/15/21 16:50 08/15/21 17:00 08/15/21 17:07 Sodium Level 135 mmol/L Potassium Level 4.8 mmol/L Chloride Level 98 mmol/L Carbon Dioxide Level 35 mmol/L Anion Gap 2 Blood Urea Nitrogen 13 mg/dL Creatinine 1.2 mg/dL Estimated GFR (Cockcroft-Gault) 44.8 Glucose Level 96 mg/dL Calcium Level 9.3 mg/dL Troponin I High Sensitivity 7 ng/L [id number]-Type Natriuretic Peptide 1025 pg/mL Influenza Type A Antigen Negative Influenza Type B Antigen Negative SARS-CoV-2 Antigen (Rapid) Negative White Blood Count 15.3 x10^3/uL Red Blood Count 3.45 x10^6/uL Hemoglobin 9.8 g/dL Hematocrit 32.4 % Mean Corpuscular Volume 94 fL Mean Corpuscular Hemoglobin 29 pg Mean Corpuscular Hemoglobin Concent 30 g/dL Red Cell Distribution Width 17.5 % Platelet Count 257 x10^3/uL Neutrophils (%) (Auto) 92 % Lymphocytes (%) (Auto) 4 % Monocytes (%) (Auto) 3 % Eosinophils (%) (Auto) 0 % Basophils (%) (Auto) 0 % Neutrophils # (Auto) 14.1 x10^3/uL Lymphocytes # (Auto) 0.6 x10^3/uL Monocytes # (Auto) 0.5 x10^3/uL Eosinophils # (Auto) 0.1 x10^3/uL Basophils # (Auto) 0.0 x10^3/uL Segmented Neutrophils % 93 % Band Neutrophils % 2 % Lymphocytes % 4 % Basophils % 1 % Platelet Estimate Adequate Anisocytosis Slight Vital Signs: Vital Signs Date Time Temp Pulse Resp B/P (MAP) Pulse Ox O2 Delivery O2 Flow Rate FiO2 08/15/21 20:38 62 29 94/50 (65) 96 Nasal Cannula 3.0 08/15/21 20:08 59 22 94/46 (62) 98 Nasal Cannula 3.0 08/15/21 19:08 92 22 102/49 (66) 98 Nasal Cannula 3.0 08/15/21 18:38 108 53 111/52 (71) 98 Nasal Cannula 3.0 08/15/21 17:40 84 20 112/53 (72) 97 Nasal Cannula 3.0 08/15/21 16:55 76 20 135/65 (88) 97 Nasal Cannula 3.0 08/15/21 16:15 99.3 116 24 111/54 (73) 98 Nasal Cannula 3.0 99.3 EKG: EKG: EKG done at [address] Nix at 1628 shows sinus tach with an abnormal right superior axis deviation CT interval is 0.54 ms with a QT interval of 3. 24ms[] Radiology/Procedures: Radiology/Procedures: Did review chest x-ray with Dr. Devi no pneumothorax noted in the right lung no official read at this time [] Course & Med Decision Making: Course & Med Decision Making Pertinent Labs and Imaging studies reviewed. (See chart for details) 1750 patient up to bathroom with assistance no oxygen patient was returned to bed with increased work of breathing noted was placed back on her 3 L nasal c annula by staff. 1836 reassessment of patient noted patient continues to have increased work of breathing, patient did states she just ended her prednisone dose about 4 days ago, patient had a lung biopsy done on 08/14 and she states she has been short of breath since then. Talk with patient about plan of care will call hospitalist group for admission. Justin Disclaimer: Justin Disclaimer: This electronic medical record was generated, in whole or in part, using a voice recognition dictation system. Departure Departure Impression: Primary Impression: COPD exacerbation Disposition: ADMITTED INPATIENT Condition: GUARDED Referrals: ANGIE WILLINGHAM MD (PCP) JESSICA BERTRAND APRN Aug 15, 2021 16:28
--- NOTE | 2021-08-15 16:44 | EKG ---
[facility] [address] [place] [address] Test Date: 2021-08-15 Test Time: 16:27:53 Pat Name: JAYCOB CRAWFORD Department: Room: Gender: F District Manager In Training: : 1955 Requested By: JESSICA BERTRAND Order Number: [id number] Reading MD: Hair Garza MD Measurements Intervals [place] Rate: 114 P: 67 CA: 154 QRS: 193 QRSD: 116 T: 111 QT: 324 QTc: 450 Interpretive Statements V-PACED PROBABLE SR Electronically Signed On 08-16-2021 13:47:30 RESTAURANT RECRUITER by Hair Garza MD
[2021-08-15 17:24] LABS: BASO % 0 % (0-3); EOS # 0.1 x10^3/uL (0.0-0.7); EOS % 0 % (0-3); HEMATOCRIT 32.4 % (36.0-47.0); HEMOGLOBIN 9.8 g/dL (12.0-15.5); LYMPH # 0.6 x10^3/uL (1.0-4.8); LYMPH % 4 % (24-48); MEAN CORPUSCULAR HEMOGLOBIN 29 pg (25-35); MEAN CORPUSCULAR HGB CONC 30 g/dL (31-37); MEAN CORPUSCULAR VOLUME 94 fL (79-100); MONO # 0.5 x10^3/uL (0.0-1.1); MONO % 3 % (0-9); NEUT # 14.1 x10^3/uL (1.8-7.7); NEUT % 92 % (31-73); PLATELET COUNT 257 x10^3/uL (140-400); RED BLOOD COUNT 3.45 x10^6/uL (3.50-5.40); RED CELL DISTRIBUTION WIDTH 17.5 % (11.5-14.5); WHITE BLOOD COUNT 15.3 x10^3/uL (4.0-11.0)
[2021-08-15 17:26] LABS: INFLUENZA A PATIENT NEGATIVE (NEGATIVE); INFLUENZA B PATIENT NEGATIVE (NEGATIVE)
[2021-08-15 17:30] LABS: CALCIUM 9.3 mg/dL (8.5-10.1); CREATININE 1.2 mg/dL (0.6-1.0); GFR 44.8; POTASSIUM 4.8 mmol/L (3.5-5.1)
[2021-08-15 17:47] LABS: % BANDS 2 % (0-9); % BASOS 1 % (0-3); % LYMPHS 4 % (24-48); % SEGS 93 % (35-66); PLT ESTIMATE ADEQUATE (ADEQUATE)
[2021-08-15 17:48] LABS: ANISOCYTOSIS SLIGHT
[2021-08-15] MEDS ORDERED: METHOCARBAMOL 500 MG TABLET PO PRN (18:45)
[2021-08-15] MEDS ORDERED: LORazepam 0.5 MG TABLET PO PRN (18:45)
[2021-08-15] MEDS ORDERED: ALBUTEROL SULFATE 2.5 MG/3 ML NEBU. NEB PRN (18:45)
[2021-08-15] MEDS ORDERED: DOCUSATE SODIUM 100 MG CAPSULE. PO PRN (18:45)
[2021-08-15] MEDS ORDERED: DICLOFENAC SODIUM 1% TOPICAL GEL 100GM TUBE. TP PRN (18:45)
[2021-08-15] MEDS ORDERED: ALBUTEROL SULFATE 2.5 MG/3 ML NEBU. INH PRN (18:45)
[2021-08-15] MEDS ORDERED: ZOLPIDEM 5 MG TABLET. PO PRN (18:45)
[2021-08-15] MEDS ORDERED: IPRATRPIUM/ALBUTEROL 0.5/2.5MG 3 ML NEBU. NEB SCH ×2 (18:45→20:00)
[2021-08-15] MEDS ORDERED: ONDANSETRON PF 4 MG/2 ML VIAL. IV PRN (18:45)
[2021-08-15] MEDS ORDERED: MAG HYDROX/ALUMINUM HYD/SIMETH 30 ML ORAL.SUSP PO PRN (18:45)
[2021-08-15] MEDS ORDERED: methylPREDNISolone SOD SUCC PF 125 MG/2 ML VIAL. IV ONE (19:00)
[2021-08-15] MEDS: ENOXAPARIN 40 MG/0.4 ML SYRINGE. SQ SCH (20:01)
--- NOTE | 2021-08-15 21:02 | RAD ---
Exam: Chest one view INDICATION: Short of air TECHNIQUE: Frontal view of the chest Comparisons: 08/14/2021 FINDINGS: AICD with leads terminating the right atrium, ventricle and coronary sinus. Stable intracardiac occlu clovis device. The cardiomediastinal silhouette and pulmonary vessels are within normal limits. Strandy bibasilar airspace disease. No pleural effusion IMPRESSION: Strandy bibasilar airspace disease may relate to atelectasis or edema or developing atypical infectio us process. Electronically signed by: Alejandro Conde MD (08/15/2021 9:00 PM) ARELI
[2021-08-15 21:20] VITALS: BP 94/52
--- NOTE | 2021-08-15 22:00 | NUR ---
Pt arrived to unit per cart at 5 pt assisted to bed telemonitor applied to pt , vs obtained and stable pt without c/o pain poc explained assessment completed call light placed in reach will resume care and continue to monitor pt.
[2021-08-15] MEDS: MONTELUKAST SODIUM 10 MG TABLET. PO SCH (22:18)
[2021-08-15] MEDS: guaiFENesin ORAL 200 MG/10 ML LIQUID. PO PRN (22:18)
[2021-08-15] MEDS: GABAPENTIN 100 MG CAPSULE. PO SCH (22:18)
[2021-08-15] MEDS: ATORVASTATIN CALCIUM 20 MG TABLET PO SCH (22:18)
[2021-08-15] MEDS: AMITRIPTYLINE HCL 25 MG TABLET. PO SCH (22:18)
[2021-08-15] MEDS: rOPINIRole 1 MG TABLET. PO SCH (22:19)
[2021-08-15] MEDS: SACUBITRIL/VALSARTAN 24/26MG TABLET. PO SCH (22:19)
[2021-08-15] MEDS: SUCRALFATE 1 GM TABLET. PO SCH (22:19)
[2021-08-15 23:17] VITALS: BP 95/45
--- NOTE | 2021-08-15 23:25 | PDOC1 ---
History and Physical Date of Admission Date of Admission 08/15/2021 Identification/Chief Complaint Chief Complaint I cannot breathe Source Source: Chart review, Patient History of Present Illness History of Present Illness Patient is a 66-year-old female with past medical history of end-stage COPD on home oxygen therapy at 3 L who was in her usual state of health until yesterday when she underwent a procedure for a lung nodule that she presented several months ago. The patient has been an avid smoker up until 3 years ago when the patient has been admitted to the hospital on several occasion for acute COPD exacerbation. The patient has history of CHF status post AICD placement who follows in the pulmonology clinic on a regular basis. The patient was recently admitted for an acute exacerbation of her COPD bronchitis and intractable cough. She was in the hospital from late July to August 03. Recently she has not had any recent travels outside the area no sick contacts she lives at home with her and he has not been exposed to COVID-19 she has not been exposed to COVID-19 either. They take all the precautions necessary to minimize the risk and she denies any fever chills no generalized malaise. She is currently on her usual 3 L oxygen supplementation through nasal cannula. She is not exhibiting increased work of breathing nevertheless we were asked to admit the patient given her symptoms of inability to catch her breath after the procedure. The patient has not evidence of pneumothorax on imaging studies. She will be started on Solu-Medrol given that she just finished a course of prednisone slow taper during her last hospital stay. Patient has history also of bronchitis recently she denies any fever chills no sensation of impending doom denies any focal neurological deficits no chest pain palpitations no urinary symptoms were reported. Plan of care has been explained detail to the patient all of her concerns were addressed to the best of my abilities she is being admitted at the request of the ER for COPD exacerbation Past Medical History Cardiovascular: CHF Pulmonary: COPD CENTRAL NERVOUS SYSTEM: Other GI: No pertinent hx Heme/Onc: No pertinent hx Hepatobiliary: No pertinent hx Psych: No pertinent hx Rheumatologic: No pertinent hx Infectious disease: No pertinent hx Renal/: Chronic renal insuff Endocrine: Diabetes, Hypothyroidism Past Surgical History Past Surgical History: Pacemaker Family History Family History: No Significant, Heart Disease Social History Smoke: No ALCOHOL: none Drugs: None Current Problem List Problem List Problems Medical Problems: (1) COPD exacerbation Status: Acute Current Medications Current Medications Current Medications Medications (Trade) Dose Ordered Sig/Keshav Start Time Stop Time Status Last Admin Dose Admin Acetaminophen (Tylenol) 650 mg PRN Q4HRS PRN 08/15/21 18:45 Al Hydroxide/Mg Hydroxide (Mylanta Plus Xs) 30 ml PRN DAILY PRN 08/15/21 18:45 Albuterol Sulfate (Ventolin Neb Soln) 2.5 mg PRN Q4HRS PRN 08/15/21 18:45 Albuterol/ Ipratropium (Combivent Respimat 20-100 Mcg) 1 puff Q4HRS 08/16/21 08:30 Albuterol/ Ipratropium (Duoneb) 3 ml Q4H 08/15/21 18:45 UNV Allopurinol (Zyloprim) 300 mg DAILY 08/16/21 09:00 Amitriptyline HCl (Elavil) 25 mg QHS 08/15/21 21:00 08/15/21 22:18 25 MG Aspirin (Ecotrin) 81 mg DAILY 08/16/21 09:00 Atorvastatin Calcium (Lipitor) 20 mg HS 08/15/21 21:00 08/15/21 22:18 20 MG Cetirizine HCl (ZyrTEC) 5 mg DAILY 08/16/21 09:00 Clopidogrel Bisulfate (Plavix) 75 mg DAILY 08/16/21 09:00 Diclofenac Sodium (Voltaren) 1 rosa elena PRN BID PRN 08/15/21 18:45 Docusate Sodium (Colace) 100 mg PRN BID PRN 08/15/21 18:45 Enoxaparin Sodium (Lovenox 40mg Syringe) 40 mg Q24H 08/15/21 19:00 08/15/21 20:01 40 MG Ferrous Sulfate (Feosol) 325 mg DAILY 08/16/21 09:00 Fluticasone/ Vilanterol (Breo Ellipta 100-25 Mcg) 1 puff DAILY 08/16/21 09:00 Cancel Gabapentin (Neurontin) 100 mg TID 08/15/21 21:00 08/15/21 22:18 100 MG Guaifenesin (Robitussin) 200 mg PRN Q4HRS PRN 08/15/21 18:45 08/15/21 22:18 200 MG Ipratropium [place] (Atrovent) 0.5 mg Q6HRS 08/16/21 00:00 Cancel Levofloxacin/ Dextrose 100 ml @ 100 mls/hr Q24H 08/15/21 19:00 08/15/21 19:57 100 MLS/HR Levothyroxine Sodium (Synthroid) 50 mcg DAILY06 08/16/21 06:00 Lorazepam (Ativan) 0.5 mg PRN Q4HRS PRN 08/15/21 18:45 Methocarbamol (Robaxin) 1,000 mg PRN BID PRN 08/15/21 18:45 Methylprednisolone Sodium Succinate (SOLU-Medrol 125MG VIAL) 125 mg 1X ONCE 08/15/21 19:00 08/15/21 19:04 DC 08/15/21 19:53 125 MG Metoprolol Succinate (Toprol Xl) 25 mg DAILY 08/16/21 09:00 Montelukast Sodium (Singulair) 10 mg HS 08/15/21 21:00 08/15/21 22:18 10 MG Non-Formulary Medication (ARNUITY ELLIPTA 100mcg/puff Inhaler) 1 ea DAILY 08/16/21 09:00 Non-Formulary Medication (Alendronate Sodium ) 1 tab WEEKLY 08/22/21 09:00 UNV Ondansetron HCl (Zofran) 4 mg PRN Q4HRS PRN 08/15/21 18:45 Pantoprazole Sodium (Protonix) 40 mg DAILYAC 08/16/21 07:30 Potassium Chloride (Klor-Con) 20 meq DAILYWBKFT 08/16/21 08:00 Roflumilast (Daliresp) 500 mcg DAILY 08/16/21 09:00 Ropinirole HCl (Requip) 3 mg QHS 08/15/21 21:00 08/15/21 22:19 3 MG Sacubitril/ Valsartan (Entresto 24 Mg-26 Mg) 1 tab BID 08/15/21 21:00 Spironolactone (Aldactone) 25 mg DAILY 08/16/21 09:00 Sucralfate (Carafate) 1 gm QIDACHS 08/15/21 21:00 08/15/21 22:19 1 GM Torsemide (Demadex) 40 mg DAILY 08/16/21 09:00 Vitamin D (Vitamin D3) 1,000 unit DAILY 08/16/21 09:00 Zolpidem Tartrate (Ambien) 5 mg PRN QHS PRN 08/15/21 18:45 Allergies Allergies Allergies Coded Allergies Type Severity Reaction Last Updated Verified fentanyl Allergy Severe agitation 08/15/21 Yes ibuprofen Allergy Severe Swelling 08/09/18 Yes naproxen Allergy Severe Shortness of Air 10/25/18 Yes piperacillin Allergy Severe Swelling 11/17/19 Yes tazobactam Allergy Severe Swelling 08/09/18 Yes ROS Review of System CONSTITUTIONAL: No fever or chills EYES: No recent changes SKIN: No rash or itching CARDIOVASCULAR: No chest pain, syncope, palpitations, or edema RESPIRATORY: No SOB or cough GASTROINTESTINAL: No nausea, vomiting or abdominal pain NEUROLOGICAL: No headaches or weakness ENDOCRINE: No cold or heat intolerance GENITOURINARY: No urgency or frequency of urination MUSCULOSKELETAL: No back pain or joint pain LYMPHATICS: No enlarged lymph nodes PSYCHIATRIC: No anxiety or depression Physical Exam Physical Exam GEN.: No apparent distress. Alert and oriented. HEENT: Head is normocephalic, atraumatic NECK: Supple. LUNGS: Clear to auscultation. HEART: RRR, S1, S2 present. Peripheral pulses intact ABDOMEN: Soft, nontender. Positive bowel sounds. EXTREMITIES: Without any cyanosis. NEUROLOGIC: Normal speech, normal tone PSYCHIATRIC: Normal affect, normal mood. SKIN: No ulcerations Vitals Vitals Vital Signs Date Time Temp Pulse Resp B/P (MAP) Pulse Ox O2 Delivery O2 Flow Rate FiO2 08/15/21 23:17 98.9 75 18 95/45 (62) 99 Nasal Cannula 3.0 98.9 Labs Labs Laboratory Tests Test 08/15/21 16:50 08/15/21 17:00 08/15/21 17:07 Sodium Level 135 mmol/L (136-145) Potassium Level 4.8 mmol/L (3.5-5.1) Chloride Level 98 mmol/L (98-107) Carbon Dioxide Level 35 mmol/L (21-32) Anion Gap 2 (6-14) Blood Urea Nitrogen 13 mg/dL (7-20) Creatinine 1.2 mg/dL (0.6-1.0) Estimated GFR (Cockcroft-Gault) 44.8 Glucose Level 96 mg/dL (70-99) Calcium Level 9.3 mg/dL (8.5-10.1) Troponin I High Sensitivity 7 ng/L (4-50) TD-Ijk-J-Type Natriuretic Peptide 1025 pg/mL (0-124) Influenza Type A Antigen Negative (NEGATIVE) Influenza Type B Antigen Negative (NEGATIVE) SARS-CoV-2 Antigen (Rapid) Negative (NEGATIVE) White Blood Count 15.3 x10^3/uL (4.0-11.0) Red Blood Count 3.45 x10^6/uL (3.50-5.40) Hemoglobin 9.8 g/dL (12.0-15.5) Hematocrit 32.4 % (36.0-47.0) Mean Corpuscular Volume 94 fL (79-100) Mean Corpuscular Hemoglobin 29 pg (25-35) Mean Corpuscular Hemoglobin Concent 30 g/dL (31-37) Red Cell Distribution Width 17.5 % (11.5-14.5) Platelet Count 257 x10^3/uL (140-400) Neutrophils (%) (Auto) 92 % (31-73) Lymphocytes (%) (Auto) 4 % (24-48) Monocytes (%) (Auto) 3 % (0-9) Eosinophils (%) (Auto) 0 % (0-3) Basophils (%) (Auto) 0 % (0-3) Neutrophils # (Auto) 14.1 x10^3/uL (1.8-7.7) Lymphocytes # (Auto) 0.6 x10^3/uL (1.0-4.8) Monocytes # (Auto) 0.5 x10^3/uL (0.0-1.1) Eosinophils # (Auto) 0.1 x10^3/uL (0.0-0.7) Basophils # (Auto) 0.0 x10^3/uL (0.0-0.2) Segmented Neutrophils % 93 % (35-66) Band Neutrophils % 2 % (0-9) Lymphocytes % 4 % (24-48) Basophils % 1 % (0-3) Platelet Estimate Adequate (ADEQUATE) Anisocytosis Slight Laboratory Tests Test 08/15/21 16:50 08/15/21 17:00 08/15/21 17:07 Sodium Level 135 mmol/L (136-145) Potassium Level 4.8 mmol/L (3.5-5.1) Chloride Level 98 mmol/L (98-107) Carbon Dioxide Level 35 mmol/L (21-32) Anion Gap 2 (6-14) Blood Urea Nitrogen 13 mg/dL (7-20) Creatinine 1.2 mg/dL (0.6-1.0) Estimated GFR (Cockcroft-Gault) 44.8 Glucose Level 96 mg/dL (70-99) Calcium Level 9.3 mg/dL (8.5-10.1) Troponin I High Sensitivity 7 ng/L (4-50) YR-Cji-G-Type Natriuretic Peptide 1025 pg/mL (0-124) Influenza Type A Antigen Negative (NEGATIVE) Influenza Type B Antigen Negative (NEGATIVE) SARS-CoV-2 Antigen (Rapid) Negative (NEGATIVE) White Blood Count 15.3 x10^3/uL (4.0-11.0) Red Blood Count 3.45 x10^6/uL (3.50-5.40) Hemoglobin 9.8 g/dL (12.0-15.5) Hematocrit 32.4 % (36.0-47.0) Mean Corpuscular Volume 94 fL (79-100) Mean Corpuscular Hemoglobin 29 pg (25-35) Mean Corpuscular Hemoglobin Concent 30 g/dL (31-37) Red Cell Distribution Width 17.5 % (11.5-14.5) Platelet Count 257 x10^3/uL (140-400) Neutrophils (%) (Auto) 92 % (31-73) Lymphocytes (%) (Auto) 4 % (24-48) Monocytes (%) (Auto) 3 % (0-9) Eosinophils (%) (Auto) 0 % (0-3) Basophils (%) (Auto) 0 % (0-3) Neutrophils # (Auto) 14.1 x10^3/uL (1.8-7.7) Lymphocytes # (Auto) 0.6 x10^3/uL (1.0-4.8) Monocytes # (Auto) 0.5 x10^3/uL (0.0-1.1) Eosinophils # (Auto) 0.1 x10^3/uL (0.0-0.7) Basophils # (Auto) 0.0 x10^3/uL (0.0-0.2) Segmented Neutrophils % 93 % (35-66) Band Neutrophils % 2 % (0-9) Lymphocytes % 4 % (24-48) Basophils % 1 % (0-3) Platelet Estimate Adequate (ADEQUATE) Anisocytosis Slight VTE Prophylaxis Ordered VTE Prophylaxis Devices: Yes VTE Pharmacological Prophylaxi: Yes Assessment/Plan Assessment/Plan End-stage COPD Exacerbation Acute bronchitis? Home oxygen therapy at 3 L currently at baseline History of CAD asymptomatic History of CHF compensated Diabetes mellitus type 2 insulin requiring Essential hypertension hyperlipidemia Acquired hypothyroidism History of AICD Hx left shoulder surgery, Hx tobacco abuse (quit 3 years ago) Plan Resume home medication Start Solu-Medrol and broad-spectrum antibiotics with levofloxacin Consult pulmonology Patient may benefit from hospice consult if no further or new recommendations from multi site leasing consultant. Continues to be a full code Further recommendations based on the clinical course Encourage as much activity as possible DVT prophylaxis Lovenox Justifications for Admission Other Justification COPD exacerbation KAYLA MARIE MD Aug 15, 2021 23:25
[2021-08-16] VITALS (10 sets, daily range): BP systolic 75–128; BP diastolic 40–60
[2021-08-16] MEDS ORDERED: IPRATROPIUM BROMIDE 0.5 MG/2.5 ML NEBU. NEB SCH
[2021-08-16] MEDS: SUCRALFATE 1 GM TABLET. PO SCH ×4 (06:04→20:51)
[2021-08-16] MEDS: LEVOTHYROXINE 50 MCG TABLET PO SCH (06:04)
[2021-08-16] MEDS: PANTOPRAZOLE 40 MG TABLET.DR. PO SCH (06:04)
[2021-08-16] MEDS: POTASSIUM CHLORIDE 20 MEQ TABLET.ER. PO SCH (08:00)
[2021-08-16] MEDS ORDERED: IPRATROPIUM/ALBUTEROL 20/100mcg/INH INHALER. INH SCH (08:30)
[2021-08-16] MEDS: SACUBITRIL/VALSARTAN 24/26MG TABLET. PO SCH ×2 (08:38→20:51)
[2021-08-16] MEDS: SPIRONOLACTONE 25 MG TABLET PO SCH (08:40)
--- NOTE | 2021-08-16 08:50 | CONS ---
DATE OF CONSULTATION: 08/16/2021 REASON FOR CONSULTATION: I was asked to see this 66-year-old for acute on chronic respiratory failure, acute exacerbation of COPD. HISTORY OF PRESENT ILLNESS: She has history of [id number] smoking, quit smoking 3 years ago. She has chronic respiratory failure and is on oxygen 3 liters per minute via nasal cannula. She was discharged from [facility] on 08/03. She finished a course of antibiotic and also finished prednisone. She was seen by Dr. Tejeda in the office for followup for pulmonary nodules and a CT-guided biopsy was ordered. She had a CT-guided biopsy on 08/14/2021 at [facility]. I cannot find procedure note. She started to have increased shortness of breath, cough and wheezing yesterday, presented to the Emergency Room and was admitted for further evaluation. She has cough with yellow sputum production. She has wheezing. She denies fever or chills. She had a COVID vaccination including her booster last month. PAST MEDICAL HISTORY: Chronic respiratory failure, COPD, enlarging pulmonary nodules, CHF, coronary artery disease, hyperlipidemia, hypertension, pacemaker, defibrillator, left shoulder surgery. ALLERGIES: FENTANYL, IBUPROFEN, NAPROSYN, ZOSYN. MEDICATIONS: Currently, she is on Combivent, Zyrtec, Anoro, torsemide, Aldactone, Daliresp, Toprol-XL, iron, Plavix, vitamin D, aspirin, potassium, Protonix, levothyroxine, Entresto, Requip, Singulair, Neurontin, Lipitor, Elavil, Levaquin, Lovenox 40 mg subQ daily. SOCIAL HISTORY: History of [id number] smoking, quit smoking 3 years ago. FAMILY HISTORY: Hypertension. REVIEW OF SYSTEMS: As mentioned as above, other systems otherwise negative. PHYSICAL EXAMINATION: GENERAL: This is an overweight lady. VITAL SIGNS: Her O2 saturation on 3 liters of oxygen is 98%, respiratory rate 16, heart rate 77, blood pressure 97/51, temperature 98.8. HEENT: Normocephalic, atraumatic. Pupils equal, round, reactive to light. Nose is clear. NECK: There is no JVD, lymphadenopathy or thyromegaly. CARDIOVASCULAR: Regular rate and rhythm. CHEST: Inspection is normal. There is a dressing in the right upper chest area (status post CT-guided biopsy). LUNGS: End-expiratory wheezing. ABDOMEN: Soft and obese. Bowel sounds are good. EXTREMITIES: There is no edema. LYMPHATICS: There is no lymphadenopathy. NEUROLOGIC: Alert and oriented. LABORATORY DATA: I reviewed the following lab data. Rapid COVID testing is negative. Influenza A and B negative. Sodium 135, potassium 4.8, chloride 98, CO2 of 35, BUN 13, creatinine 1.2. BNP 1025. Troponin 7. WBC 15.3, hemoglobin 9.8, platelet 257. Chest x-ray did not show pneumothorax. There were some bibasilar atelectasis versus infiltrate. IMPRESSION: 1. Acute on chronic respiratory failure secondary to acute exacerbation of chronic obstructive pulmonary disease, acute bronchitis, doubt COVID-19 pneumonia. 2. Abnormal chest x-ray and CT of the chest with enlarging lung nodule, status post right upper lobe CT-guided biopsy on 08/14. 3. Chronic obstructive pulmonary disease with acute exacerbation. 4. Acute bronchitis. 5. Leukocytosis. 6. Coronary artery disease. 7. History of congestive heart failure. 8. Status post automatic implantable cardioverter-defibrillator. 9. Ex-smoker. PLAN AND RECOMMENDATIONS: 1. Titrate FiO2 to keep O2 saturation 92%. 2. Start Solu-Medrol 40 mg IV every 12 hours. 3. Her COVID-19 PCR testing is pending. When it is back and negative, I will change Combivent to DuoNeb. 4. Follow up lung nodule biopsy. 5. Continue antibiotic. 6. Lovenox for DVT prophylaxis. 7. Protonix for stress ulcer prophylaxis. 8. The findings and recommendations were discussed with the patient. She understood and agreed to proceed with the plan. I have answered all of her questions. Thank you very much for allowing me to participate in care of this very nice lady. JUN GREENE: Kareem TID: [id number] [email or web address]
[2021-08-16] MEDS: METOPROLOL SUCC 24HR ER 25 MG TAB.ER.24H. PO SCH (09:00)
[2021-08-16] MEDS ORDERED: FLUTICASONE/VILANTEROL 100/25 INHALER. INH SCH (09:00)
[2021-08-16] MEDS ORDERED: FLUTICASONE FUROATE 100mcg/INH ELLIPTA INHALER. INH ONE (09:00)
[2021-08-16] MEDS: ARNUITY ELLIPTA INH SCH (09:50)
[2021-08-16] MEDS: ASPIRIN ENTERIC COATED 81 MG TABLET.DR. PO SCH (09:50)
[2021-08-16] MEDS: CHOLECALCIFEROL (VITAMIN D3) 1,000 UNIT TABLET PO SCH (09:50)
[2021-08-16] MEDS: ROFLUMILAST 500 MCG TABLET. PO SCH (09:51)
[2021-08-16] MEDS: GABAPENTIN 100 MG CAPSULE. PO SCH ×3 (09:51→20:51)
[2021-08-16] MEDS: methylPREDNISolone SOD SUCC PF 40 MG/ML VIAL. IV SCH ×2 (09:51→20:52)
[2021-08-16] MEDS: CETIRIZINE HCL 10 MG TABLET. PO SCH (09:52)
[2021-08-16] MEDS: TORSEMIDE 20 MG TABLET. PO SCH (09:52)
[2021-08-16] MEDS: CLOPIDOGREL BISULFATE 75 MG TABLET PO SCH (09:52)
[2021-08-16] MEDS: ALLOPURINOL 300 MG TABLET. PO SCH (09:52)
[2021-08-16] MEDS: FERROUS SULFATE 325 MG TABLET. PO SCH (10:06)
--- NOTE | 2021-08-16 10:42 | PDOC ---
[employer] PROGRESS NOTE Date of Service DOS: DATE: 08/16/21 TIME: 10:37 Chief Complaint Chief Complaint End-stage COPD iwth acute Exacerbation Acute bronchitis chronic hypoxic respiratory failure, acute on chronic hypercarbia History of CAD asymptomatic History of CHF compensated Diabetes mellitus type 2 insulin requiring Essential hypertension hyperlipidemia Acquired hypothyroidism has AICD for CAD, CHF Hx tobacco abuse (quit 3 years ago) History of Present Illness History of Present Illness Resume home medication Start Solu-Medrol and broad-spectrum antibiotics with levofloxacin Consult pulmonology Patient may benefit from hospice consult if no further or new recommendations from legal consultant. Continues to be a full code Further recommendations based on the clinical course Encourage as much activity as possible DVT prophylaxis Lovenox Vitals/I&O Vitals/I&O: Vital Signs Date Time Temp Pulse Resp B/P (MAP) Pulse Ox O2 Delivery O2 Flow Rate FiO2 08/16/21 08:38 78 94/48 08/16/21 06:32 98.4 16 100 Nasal Cannula 3.0 98.4 I & O 08/15/21 08/15/21 08/16/21 15:00 23:00 07:00 Intake Total 220 ml 0 ml Output Total 600 ml Balance -380 ml 0 ml Physical Exam General: Alert, Cooperative, mild distress Lungs: Wheezing, Crackles, Other Extremities: No cyanosis, No edema Skin: No breakdown Labs Labs: Laboratory Tests Test 08/15/21 16:50 08/15/21 17:00 08/15/21 17:07 Sodium Level 135 mmol/L (136-145) Potassium Level 4.8 mmol/L (3.5-5.1) Chloride Level 98 mmol/L (98-107) Carbon Dioxide Level 35 mmol/L (21-32) Anion Gap 2 (6-14) Blood Urea Nitrogen 13 mg/dL (7-20) Creatinine 1.2 mg/dL (0.6-1.0) Estimated GFR (Cockcroft-Gault) 44.8 Glucose Level 96 mg/dL (70-99) Calcium Level 9.3 mg/dL (8.5-10.1) Troponin I High Sensitivity 7 ng/L (4-50) MX-Vyo-G-Type Natriuretic Peptide 1025 pg/mL (0-124) Influenza Type A Antigen Negative (NEGATIVE) Influenza Type B Antigen Negative (NEGATIVE) SARS-CoV-2 RNA (GUDELIA) Negative (Negative) SARS-CoV-2 Antigen (Rapid) Negative (NEGATIVE) White Blood Count 15.3 x10^3/uL (4.0-11.0) Red Blood Count 3.45 x10^6/uL (3.50-5.40) Hemoglobin 9.8 g/dL (12.0-15.5) Hematocrit 32.4 % (36.0-47.0) Mean Corpuscular Volume 94 fL (79-100) Mean Corpuscular Hemoglobin 29 pg (25-35) Mean Corpuscular Hemoglobin Concent 30 g/dL (31-37) Red Cell Distribution Width 17.5 % (11.5-14.5) Platelet Count 257 x10^3/uL (140-400) Neutrophils (%) (Auto) 92 % (31-73) Lymphocytes (%) (Auto) 4 % (24-48) Monocytes (%) (Auto) 3 % (0-9) Eosinophils (%) (Auto) 0 % (0-3) Basophils (%) (Auto) 0 % (0-3) Neutrophils # (Auto) 14.1 x10^3/uL (1.8-7.7) Lymphocytes # (Auto) 0.6 x10^3/uL (1.0-4.8) Monocytes # (Auto) 0.5 x10^3/uL (0.0-1.1) Eosinophils # (Auto) 0.1 x10^3/uL (0.0-0.7) Basophils # (Auto) 0.0 x10^3/uL (0.0-0.2) Segmented Neutrophils % 93 % (35-66) Band Neutrophils % 2 % (0-9) Lymphocytes % 4 % (24-48) Basophils % 1 % (0-3) Platelet Estimate Adequate (ADEQUATE) Anisocytosis Slight Review of Systems Review of Systems: cough, dyspnea, waekness, Assessment and Plan Assessmemt and Plan Problems Medical Problems: (1) COPD exacerbation Status: Acute Comment Review of Relevant I have reviewed the following items jon (where applicable) has been applied. Medications: Current Medications Medications (Trade) Dose Ordered Sig/Keshav Route PRN Reason Start Time Stop Time Status Last Admin Dose Admin Methylprednisolone Sodium Succinate (SOLU-Medrol 125MG VIAL) 125 mg 1X ONCE IV 08/15/21 19:00 08/15/21 19:04 DC 08/15/21 19:53 Allopurinol (Zyloprim) 300 mg DAILY PO 08/16/21 09:00 08/16/21 09:52 Amitriptyline HCl (Elavil) 25 mg QHS PO 08/15/21 21:00 08/15/21 22:18 Aspirin (Ecotrin) 81 mg DAILY PO 08/16/21 09:00 08/16/21 09:50 Atorvastatin Calcium (Lipitor) 20 mg HS PO 08/15/21 21:00 08/15/21 22:18 Vitamin D (Vitamin D3) 1,000 unit DAILY PO 08/16/21 09:00 08/16/21 09:50 Clopidogrel Bisulfate (Plavix) 75 mg DAILY PO 08/16/21 09:00 08/16/21 09:52 Ferrous Sulfate (Feosol) 325 mg DAILY PO 08/16/21 09:00 08/16/21 10:06 Gabapentin (Neurontin) 100 mg TID PO 08/15/21 21:00 08/16/21 09:51 Levothyroxine Sodium (Synthroid) 50 mcg DAILY06 PO 08/16/21 06:00 08/16/21 06:04 Montelukast Sodium (Singulair) 10 mg HS PO 08/15/21 21:00 08/15/21 22:18 Roflumilast (Daliresp) 500 mcg DAILY PO 08/16/21 09:00 08/16/21 09:51 Ropinirole HCl (Requip) 3 mg QHS PO 08/15/21 21:00 08/15/21 22:19 Sucralfate (Carafate) 1 gm QIDACHS PO 08/15/21 21:00 08/16/21 06:04 Torsemide (Demadex) 40 mg DAILY PO 08/16/21 09:00 08/16/21 09:52 Cetirizine HCl (ZyrTEC) 5 mg DAILY PO 08/16/21 09:00 08/16/21 09:52 Pantoprazole Sodium (Protonix) 40 mg DAILYAC PO 08/16/21 07:30 08/16/21 06:04 Guaifenesin (Robitussin) 200 mg PRN Q4HRS PRN PO COUGH 08/15/21 18:45 11/13/21 22:18 Enoxaparin Sodium (Lovenox 40mg Syringe) 40 mg Q24H SQ 08/15/21 19:00 08/15/21 20:01 Levofloxacin/ Dextrose 100 ml @ 100 mls/hr Q24H IV 08/15/21 19:00 08/15/21 19:57 Non-Formulary Medication (ARNUITY ELLIPTA 100mcg/puff Inhaler) 1 ea DAILY INH 08/16/21 09:00 08/16/21 09:50 Methylprednisolone Sodium Succinate (SOLU-Medrol 40MG VIAL) 40 mg Q12HR IV 08/16/21 09:00 08/16/21 09:51 Justifications for Admission Other Justification COPD exacerbation DEMETRA BABIN MD Aug 16, 2021 10:42
[2021-08-16] MEDS: IPRATRPIUM/ALBUTEROL 0.5/2.5MG 3 ML NEBU. NEB SCH ×3 (10:45→14:59)
[2021-08-16] MEDS: ENOXAPARIN 40 MG/0.4 ML SYRINGE. SQ SCH (18:58)
--- NOTE | 2021-08-16 19:05 | NUR ---
Pt in bed assessment completed pt denied pain , pt still sob at rest poc explained call light in reach will resume care and continue to monitor pt.
[2021-08-16] MEDS: ATORVASTATIN CALCIUM 20 MG TABLET PO SCH (20:50)
[2021-08-16] MEDS: guaiFENesin ORAL 200 MG/10 ML LIQUID. PO PRN (20:50)
[2021-08-16] MEDS: rOPINIRole 1 MG TABLET. PO SCH (20:50)
[2021-08-16] MEDS: MONTELUKAST SODIUM 10 MG TABLET. PO SCH (20:50)
[2021-08-16] MEDS: AMITRIPTYLINE HCL 25 MG TABLET. PO SCH (20:51)
[2021-08-17 02:44] VITALS: BP 83/40
[2021-08-17] MEDS: LEVOTHYROXINE 50 MCG TABLET PO SCH (06:00)
[2021-08-17] MEDS: SUCRALFATE 1 GM TABLET. PO SCH ×4 (06:00→20:49)
[2021-08-17] MEDS: PANTOPRAZOLE 40 MG TABLET.DR. PO SCH (06:01)
[2021-08-17 07:00] VITALS: BP 93/36
[2021-08-17] MEDS: IPRATRPIUM/ALBUTEROL 0.5/2.5MG 3 ML NEBU. NEB SCH ×4 (07:31→20:32)
[2021-08-17] MEDS: SPIRONOLACTONE 25 MG TABLET PO SCH (09:00)
[2021-08-17] MEDS: METOPROLOL SUCC 24HR ER 25 MG TAB.ER.24H. PO SCH (09:00)
[2021-08-17] MEDS: SACUBITRIL/VALSARTAN 24/26MG TABLET. PO SCH ×2 (09:00→20:48)
--- NOTE | 2021-08-17 09:32 | PDOC ---
PULMONARY PROGRESS NOTES DATE: 08/17/21 TIME: 09:31 Subjective Patient continues to be short of breath, increasing wheezing, cough mostly nonproductive Vitals Vital Signs Date Time Temp Pulse Resp B/P (MAP) Pulse Ox O2 Delivery O2 Flow Rate FiO2 08/17/21 07:31 99 Nasal Cannula 3.0 08/17/21 07:00 98.2 91 20 93/36 (55) 98.2 ROS: No Nausea, No Chest Pain, No Abdominal Pain, No Increase Cough General: Alert, No acute distress HEENT: Other Lungs: Wheezing, Crackles Cardiovascular: S1, S2 Abdomen: Soft, Non-tender Neuro Exam: Alert Extremities: No Edema Skin: Warm Labs Laboratory Tests Test 08/15/21 16:50 08/15/21 17:00 08/15/21 17:07 Sodium Level 135 mmol/L (136-145) Potassium Level 4.8 mmol/L (3.5-5.1) Chloride Level 98 mmol/L (98-107) Carbon Dioxide Level 35 mmol/L (21-32) Anion Gap 2 (6-14) Blood Urea Nitrogen 13 mg/dL (7-20) Creatinine 1.2 mg/dL (0.6-1.0) Estimated GFR (Cockcroft-Gault) 44.8 Glucose Level 96 mg/dL (70-99) Calcium Level 9.3 mg/dL (8.5-10.1) Troponin I High Sensitivity 7 ng/L (4-50) TL-Hmh-U-Type Natriuretic Peptide 1025 pg/mL (0-124) Influenza Type A Antigen Negative (NEGATIVE) Influenza Type B Antigen Negative (NEGATIVE) SARS-CoV-2 RNA (GUDELIA) Negative (Negative) SARS-CoV-2 Antigen (Rapid) Negative (NEGATIVE) White Blood Count 15.3 x10^3/uL (4.0-11.0) Red Blood Count 3.45 x10^6/uL (3.50-5.40) Hemoglobin 9.8 g/dL (12.0-15.5) Hematocrit 32.4 % (36.0-47.0) Mean Corpuscular Volume 94 fL (79-100) Mean Corpuscular Hemoglobin 29 pg (25-35) Mean Corpuscular Hemoglobin Concent 30 g/dL (31-37) Red Cell Distribution Width 17.5 % (11.5-14.5) Platelet Count 257 x10^3/uL (140-400) Neutrophils (%) (Auto) 92 % (31-73) Lymphocytes (%) (Auto) 4 % (24-48) Monocytes (%) (Auto) 3 % (0-9) Eosinophils (%) (Auto) 0 % (0-3) Basophils (%) (Auto) 0 % (0-3) Neutrophils # (Auto) 14.1 x10^3/uL (1.8-7.7) Lymphocytes # (Auto) 0.6 x10^3/uL (1.0-4.8) Monocytes # (Auto) 0.5 x10^3/uL (0.0-1.1) Eosinophils # (Auto) 0.1 x10^3/uL (0.0-0.7) Basophils # (Auto) 0.0 x10^3/uL (0.0-0.2) Segmented Neutrophils % 93 % (35-66) Band Neutrophils % 2 % (0-9) Lymphocytes % 4 % (24-48) Basophils % 1 % (0-3) Platelet Estimate Adequate (ADEQUATE) Anisocytosis Slight Medications Active Scripts Medications Dose Route/Sig Max Daily Dose Days Date Category Prednisone (Prednisone) 10 Mg Tablet 1 Tab PO DAILY 3 08/03/21 Rx Prednisone (Prednisone) 10 Mg Tablet 2 Tab PO DAILY 3 08/03/21 Rx Prednisone (Prednisone) 10 Mg Tablet 3 Tab PO DAILY 3 08/03/21 Rx Ferrous Sulfate 325 Mg Tablet 1 Tab PO DAILY 07/26/21 Reported Sucralfate 1 Gm Tablet 1 Tab PO QID 07/26/21 Reported Clopidogrel (Clopidogrel Bisulfate) 75 Mg Tablet 1 Tab PO DAILY 07/20/21 Reported Methocarbamol 500 Mg Tablet 1,000 Mg PO PRN BID PRN 05/25/21 Reported Spironolactone 25 Mg Tablet 25 Mg PO DAILY 05/19/21 Reported Metoprolol Succinate ( Xl ) (Metoprolol Succinate) 25 Mg Tab.er.24h 25 Mg PO DAILY 05/19/21 Reported Voltaren Arthritis Pain (Diclofenac Sodium) 20 Gm Gel..gram. 20 Gm TP PRN PRN 05/19/21 Reported Entresto 24 mg-26 mg Tablet (Sacubitril/Valsartan) 1 Each Tablet 1 Each PO BID 30 11/19/20 Rx Gabapentin (Gabapentin) 100 Mg Capsule 100 Mg PO TID 10/18/20 Reported Alendronate Sodium 70 Mg Tablet 1 Tab PO WEEKLY 10/16/20 Reported Allopurinol 300 Mg Tablet 1 Tab PO DAILY 10/16/20 Reported Trelegy Ellipta 100-62.5-25 (Fluticasone/Umeclidin/Vilanter) 1 Each Blst.w.dev 1 Each IH DAILY 03/17/20 Reported Prilosec Otc (Omeprazole Magnesium) 20 Mg Tablet.dr 40 Mg PO DAILY 03/17/20 Reported Duoneb 0.5-3(2.5) Mg/3 Ml (Albuterol/Ipratropium) 3 Ml Ampul.neb 3 Ml NEB Q4HRS 14 10/22/19 Rx K-Tab ER (Potassium Chloride) 20 Meq Tablet.er 20 Meq PO DAILY 07/30/19 Reported Montelukast Sodium Tablet (Montelukast Sodium) 10 Mg Tablet 10 Mg PO HS 07/29/19 Reported Levocetirizine Dihydrochloride 5 Mg Tablet 5 Mg PO DAILY 07/29/19 Reported Amitriptyline Hcl 25 Mg Tablet 25 Mg PO QHS 07/29/19 Reported Aspir 81 (Aspirin) 81 Mg Tablet.dr 1 Tab PO DAILY 01/03/18 Reported Vitamin D3 (Cholecalciferol (Vitamin D3)) 1,000 Unit Tablet 1 Tab PO DAILY 01/02/18 Reported Torsemide 20 Mg Tablet 2 Tab PO DAILY 01/02/18 Reported Daliresp (Roflumilast) 500 Mcg Tablet 1 Tab PO DAILY 09/23/17 Reported Atorvastatin Calcium 20 Mg Tablet 20 Mg PO HS 09/23/17 Reported Requip (Ropinirole Hcl) 1 Mg Tablet 3 Tab PO QHS 09/23/17 Reported Proair Hfa Inhaler (Albuterol Sulfate) 8.5 Gm Hfa.aer.ad 1 Puff INH PRN Q6HRS PRN 09/23/17 Reported Levothyroxine Sodium 50 Mcg Tablet 1 Tab PO DAILY 09/23/17 Reported Impression . IMPRESSION: 1. Acute on chronic respiratory failure secondary to acute exacerbation of chronic obstructive pulmonary disease, acute bronchitis 2. Abnormal chest x-ray and CT of the chest with enlarging lung nodule, status post right upper lobe CT-guided biopsy on 08/14. 3. Chronic obstructive pulmonary disease with acute exacerbation. 4. Acute bronchitis. 5. Leukocytosis. 6. Coronary artery disease. 7. History of congestive heart failure. 8. Status post automatic implantable cardioverter-defibrillator. 9. Ex-smoker. Plan . Updated 08/17 SARS-CoV-2 negative Continue current support IV Solu-Medrol Lung biopsy results pending DVT prophylaxis PLAN AND RECOMMENDATIONS: 1. Titrate FiO2 to keep O2 saturation 92%. 2. Start Solu-Medrol 40 mg IV every 12 hours. 3. Her COVID-19 PCR testing is pending. When it is back and negative, I will change Combivent to DuoNeb. 4. Follow up lung nodule biopsy. 5. Continue antibiotic. 6. Lovenox for DVT prophylaxis. 7. Protonix for stress ulcer prophylaxis. 8. The findings and recommendations were discussed with the patient. She understood and agreed to proceed with the plan. I have answered all of her questions. Thank you very much for allowing me to participate in care of this very nice lady. LETICIA FORTUNE MD Aug 17, 2021 09:31
[2021-08-17] MEDS: guaiFENesin ORAL 200 MG/10 ML LIQUID. PO PRN (09:35)
[2021-08-17] MEDS: ARNUITY ELLIPTA INH SCH (09:36)
[2021-08-17] MEDS: ROFLUMILAST 500 MCG TABLET. PO SCH (09:36)
[2021-08-17] MEDS: POTASSIUM CHLORIDE 20 MEQ TABLET.ER. PO SCH (09:37)
[2021-08-17] MEDS: CHOLECALCIFEROL (VITAMIN D3) 1,000 UNIT TABLET PO SCH (09:37)
[2021-08-17] MEDS: ASPIRIN ENTERIC COATED 81 MG TABLET.DR. PO SCH (09:37)
[2021-08-17] MEDS: ALLOPURINOL 300 MG TABLET. PO SCH (09:37)
[2021-08-17] MEDS: GABAPENTIN 100 MG CAPSULE. PO SCH ×3 (09:37→20:48)
[2021-08-17] MEDS: TORSEMIDE 20 MG TABLET. PO SCH (09:37)
[2021-08-17] MEDS: CLOPIDOGREL BISULFATE 75 MG TABLET PO SCH (09:37)
[2021-08-17] MEDS: LACTOBACILLUS RHAMNOSUS GG 1 CAPSULE. PO SCH ×2 (09:37→20:48)
[2021-08-17] MEDS: CETIRIZINE HCL 10 MG TABLET. PO SCH (09:38)
[2021-08-17] MEDS: FERROUS SULFATE 325 MG TABLET. PO SCH (09:38)
[2021-08-17] MEDS: methylPREDNISolone SOD SUCC PF 40 MG/ML VIAL. IV SCH ×2 (09:39→20:48)
[2021-08-17 11:00] VITALS: BP 97/50
[2021-08-17] MEDS: ACETAMINOPHEN 325 MG TABLET. PO PRN (11:39)
--- NOTE | 2021-08-17 12:19 | NUR ---
SW following. Discussed with Kenia (SS), chart reviewed. Pt from home, uses oxygen at home, COVID-19 negative. Pulmonology following. Pt has [facility] at home. SW will continue to follow.
--- NOTE | 2021-08-17 13:46 | PDOC ---
[facility] PROGRESS NOTE Date of Service DOS: DATE: 08/17/21 TIME: 13:44 Chief Complaint Chief Complaint End-stage COPD iwth acute Exacerbation Status post lung biopsy last Tuesday awaiting results Acute bronchitis chronic hypoxic respiratory failure, acute on chronic hypercarbia History of CAD asymptomatic History of CHF compensated Diabetes mellitus type 2 insulin requiring Essential hypertension hyperlipidemia Acquired hypothyroidism has AICD for CAD, CHF Hx tobacco abuse (quit 3 years ago) History of Present Illness History of Present Illness 08/17/2021 Patient seen and examined Discussed with RN Chart reviewed She is still very short of breath and coughing a lot and wheezing Vitals/I&O Vitals/I&O: Vital Signs Date Time Temp Pulse Resp B/P (MAP) Pulse Ox O2 Delivery O2 Flow Rate FiO2 08/17/21 12:44 96 Nasal Cannula 3.0 08/17/21 11:00 97.8 87 20 97/50 (66) 97.8 I & O 08/16/21 08/16/21 08/17/21 15:00 23:00 07:00 Intake Total 480 ml 640 ml 0 ml Output Total 500 ml 1300 ml Balance -20 ml -660 ml 0 ml Physical Exam General: Alert, Cooperative, mild distress Lungs: Wheezing, Crackles Extremities: No cyanosis, No edema Skin: No breakdown Assessment and Plan Assessmemt and Plan Problems Medical Problems: (1) COPD exacerbation Status: Acute End-stage COPD iwth acute Exacerbation Status post lung biopsy last Tuesday awaiting results Acute bronchitis chronic hypoxic respiratory failure, acute on chronic hypercarbia History of CAD asymptomatic History of CHF compensated Diabetes mellitus type 2 insulin requiring Essential hypertension hyperlipidemia Acquired hypothyroidism has AICD for CAD, CHF Hx tobacco abuse (quit 3 years ago) Plan Cardiac monitoring Solu-Medrol IV antibiotics O2 per nasal cannula Pulmonary following Awaiting biopsy report Trend labs Home meds DVT prophylaxis Full code Long-term prognosis guarded (might need hospice) Comment Review of Relevant I have reviewed the following items jon (where applicable) has been applied. Medications: Current Medications Medications (Trade) Dose Ordered Sig/Keshav Route PRN Reason Start Time Stop Time Status Last Admin Dose Admin Levofloxacin/ Dextrose 150 ml @ 100 mls/hr Q48H IV 08/16/21 17:00 08/16/21 17:56 Lactobacillus Rhamnosus (Culturelle) 1 cap BID PO 08/17/21 09:00 08/17/21 09:37 Justifications for Admission Other Justification COPD exacerbation JULIANA ERNST III DO Aug 17, 2021 13:46
[2021-08-17 14:24] VITALS: BP 93/42
[2021-08-17] MEDS: ENOXAPARIN 40 MG/0.4 ML SYRINGE. SQ SCH (18:08)
[2021-08-17 19:45] VITALS: BP 120/87
[2021-08-17] MEDS: MONTELUKAST SODIUM 10 MG TABLET. PO SCH (20:48)
[2021-08-17] MEDS: ATORVASTATIN CALCIUM 20 MG TABLET PO SCH (20:48)
[2021-08-17] MEDS: AMITRIPTYLINE HCL 25 MG TABLET. PO SCH (20:49)
[2021-08-17] MEDS: rOPINIRole 1 MG TABLET. PO SCH (20:49)
[2021-08-17 23:15] VITALS: BP 99/45
[2021-08-18] VITALS (7 sets, daily range): BP systolic 80–126; BP diastolic 43–55
[2021-08-18] MEDS: LEVOTHYROXINE 50 MCG TABLET PO SCH (06:00)
[2021-08-18] MEDS: IPRATRPIUM/ALBUTEROL 0.5/2.5MG 3 ML NEBU. NEB SCH ×4 (07:28→19:57)
--- NOTE | 2021-08-18 08:34 | PDOC ---
PULMONARY PROGRESS NOTES DATE: 08/18/21 TIME: 08:34 Subjective Patient feels better today less wheeze less cough Vitals Vital Signs Date Time Temp Pulse Resp B/P (MAP) Pulse Ox O2 Delivery O2 Flow Rate FiO2 08/18/21 07:29 99 Nasal Cannula 3.0 08/18/21 03:35 98.4 87 20 84/46 (59) 98.4 ROS: No Nausea, No Chest Pain, No Abdominal Pain, No Increase Cough General: Alert, No acute distress HEENT: Other Lungs: Wheezing, Crackles Cardiovascular: S1, S2 Abdomen: Soft, Non-tender Neuro Exam: Alert Extremities: No Edema Skin: Warm Medications Active Scripts Medications Dose Route/Sig Max Daily Dose Days Date Category Prednisone (Prednisone) 10 Mg Tablet 1 Tab PO DAILY 3 08/03/21 Rx Prednisone (Prednisone) 10 Mg Tablet 2 Tab PO DAILY 3 08/03/21 Rx Prednisone (Prednisone) 10 Mg Tablet 3 Tab PO DAILY 3 08/03/21 Rx Ferrous Sulfate 325 Mg Tablet 1 Tab PO DAILY 07/26/21 Reported Sucralfate 1 Gm Tablet 1 Tab PO QID 07/26/21 Reported Clopidogrel (Clopidogrel Bisulfate) 75 Mg Tablet 1 Tab PO DAILY 07/20/21 Reported Methocarbamol 500 Mg Tablet 1,000 Mg PO PRN BID PRN 05/25/21 Reported Spironolactone 25 Mg Tablet 25 Mg PO DAILY 05/19/21 Reported Metoprolol Succinate ( Xl ) (Metoprolol Succinate) 25 Mg Tab.er.24h 25 Mg PO DAILY 05/19/21 Reported Voltaren Arthritis Pain (Diclofenac Sodium) 20 Gm Gel..gram. 20 Gm TP PRN PRN 05/19/21 Reported Entresto 24 mg-26 mg Tablet (Sacubitril/Valsartan) 1 Each Tablet 1 Each PO BID 30 11/19/20 Rx Gabapentin (Gabapentin) 100 Mg Capsule 100 Mg PO TID 10/18/20 Reported Alendronate Sodium 70 Mg Tablet 1 Tab PO WEEKLY 10/16/20 Reported Allopurinol 300 Mg Tablet 1 Tab PO DAILY 10/16/20 Reported Trelegy Ellipta 100-62.5-25 (Fluticasone/Umeclidin/Vilanter) 1 Each Blst.w.dev 1 Each IH DAILY 03/17/20 Reported Prilosec Otc (Omeprazole Magnesium) 20 Mg Tablet. 40 Mg PO DAILY 03/17/20 Reported Duoneb 0.5-3(2.5) Mg/3 Ml (Albuterol/Ipratropium) 3 Ml Ampul.neb 3 Ml NEB Q4HRS 14 10/22/19 Rx K-Tab ER (Potassium Chloride) 20 Meq Tablet.er 20 Meq PO DAILY 07/30/19 Reported Montelukast Sodium Tablet (Montelukast Sodium) 10 Mg Tablet 10 Mg PO HS 07/29/19 Reported Levocetirizine Dihydrochloride 5 Mg Tablet 5 Mg PO DAILY 07/29/19 Reported Amitriptyline Hcl 25 Mg Tablet 25 Mg PO QHS 07/29/19 Reported Aspir 81 (Aspirin) 81 Mg Tablet.dr 1 Tab PO DAILY 01/03/18 Reported Vitamin D3 (Cholecalciferol (Vitamin D3)) 1,000 Unit Tablet 1 Tab PO DAILY 01/02/18 Reported Torsemide 20 Mg Tablet 2 Tab PO DAILY 01/02/18 Reported Daliresp (Roflumilast) 500 Mcg Tablet 1 Tab PO DAILY 09/23/17 Reported Atorvastatin Calcium 20 Mg Tablet 20 Mg PO HS 09/23/17 Reported Requip (Ropinirole Hcl) 1 Mg Tablet 3 Tab PO QHS 09/23/17 Reported Proair Hfa Inhaler (Albuterol Sulfate) 8.5 Gm Hfa.aer.ad 1 Puff INH PRN Q6HRS PRN 09/23/17 Reported Levothyroxine Sodium 50 Mcg Tablet 1 Tab PO DAILY 09/23/17 Reported Impression . IMPRESSION: 1. Acute on chronic respiratory failure secondary to acute exacerbation of chronic obstructive pulmonary disease, acute bronchitis 2. Abnormal chest x-ray and CT of the chest with enlarging lung nodule, status post right upper lobe CT-guided biopsy on 08/14. 3. Chronic obstructive pulmonary disease with acute exacerbation. 4. Acute bronchitis. 5. Leukocytosis. 6. Coronary artery disease. 7. History of congestive heart failure. 8. Status post automatic implantable cardioverter-defibrillator. 9. Ex-smoker. Plan . Updated 08/18 Spoke with pathologist, preliminary report no evidence of cancer on biopsy Patient slowly improving possible discharge in a.m. on 08/19 Home with home health Follow-up with Dr. Casillas in the office Updated 11/15 SARS-CoV-2 negative Continue current support IV Solu-Medrol Lung biopsy results pending DVT prophylaxis LETICIA FORTUNE MD Aug 18, 2021 08:34
--- NOTE | 2021-08-18 08:34 | PDOC ---
PULMONARY PROGRESS NOTES DATE: 08/18/21 TIME: 08:34 Subjective Patient continues to be short of breath, increasing wheezing, cough mostly nonproductive Vitals Vital Signs Date Time Temp Pulse Resp B/P (MAP) Pulse Ox O2 Delivery O2 Flow Rate FiO2 08/18/21 07:29 99 Nasal Cannula 3.0 08/18/21 03:35 98.4 87 20 84/46 (59) 98.4 ROS: No Nausea, No Chest Pain, No Abdominal Pain, No Increase Cough General: Alert, No acute distress HEENT: Other Lungs: Wheezing, Crackles Cardiovascular: S1, S2 Abdomen: Soft, Non-tender Neuro Exam: Alert Extremities: No Edema Skin: Warm Medications Active Scripts Medications Dose Route/Sig Max Daily Dose Days Date Category Prednisone (Prednisone) 10 Mg Tablet 1 Tab PO DAILY 3 08/03/21 Rx Prednisone (Prednisone) 10 Mg Tablet 2 Tab PO DAILY 3 08/03/21 Rx Prednisone (Prednisone) 10 Mg Tablet 3 Tab PO DAILY 3 08/03/21 Rx Ferrous Sulfate 325 Mg Tablet 1 Tab PO DAILY 07/26/21 Reported Sucralfate 1 Gm Tablet 1 Tab PO QID 07/26/21 Reported Clopidogrel (Clopidogrel Bisulfate) 75 Mg Tablet 1 Tab PO DAILY 07/20/21 Reported Methocarbamol 500 Mg Tablet 1,000 Mg PO PRN BID PRN 05/25/21 Reported Spironolactone 25 Mg Tablet 25 Mg PO DAILY 05/19/21 Reported Metoprolol Succinate ( Xl ) (Metoprolol Succinate) 25 Mg Tab.er.24h 25 Mg PO DAILY 05/19/21 Reported Voltaren Arthritis Pain (Diclofenac Sodium) 20 Gm Gel..gram. 20 Gm TP PRN PRN 05/19/21 Reported Entresto 24 mg-26 mg Tablet (Sacubitril/Valsartan) 1 Each Tablet 1 Each PO BID 30 11/19/20 Rx Gabapentin (Gabapentin) 100 Mg Capsule 100 Mg PO TID 10/18/20 Reported Alendronate Sodium 70 Mg Tablet 1 Tab PO WEEKLY 10/16/20 Reported Allopurinol 300 Mg Tablet 1 Tab PO DAILY 10/16/20 Reported Trelegy Ellipta 100-62.5-25 (Fluticasone/Umeclidin/Vilanter) 1 Each Blst.w.dev 1 Each IH DAILY 03/17/20 Reported Prilosec Otc (Omeprazole Magnesium) 20 Mg Tablet.dr 40 Mg PO DAILY 03/17/20 Reported Duoneb 0.5-3(2.5) Mg/3 Ml (Albuterol/Ipratropium) 3 Ml Ampul.neb 3 Ml NEB Q4HRS 14 10/22/19 Rx K-Tab ER (Potassium Chloride) 20 Meq Tablet.er 20 Meq PO DAILY 07/30/19 Reported Montelukast Sodium Tablet (Montelukast Sodium) 10 Mg Tablet 10 Mg PO HS 07/29/19 Reported Levocetirizine Dihydrochloride 5 Mg Tablet 5 Mg PO DAILY 07/29/19 Reported Amitriptyline Hcl 25 Mg Tablet 25 Mg PO QHS 07/29/19 Reported Aspir 81 (Aspirin) 81 Mg Tablet.dr 1 Tab PO DAILY 01/03/18 Reported Vitamin D3 (Cholecalciferol (Vitamin D3)) 1,000 Unit Tablet 1 Tab PO DAILY 01/02/18 Reported Torsemide 20 Mg Tablet 2 Tab PO DAILY 01/02/18 Reported Daliresp (Roflumilast) 500 Mcg Tablet 1 Tab PO DAILY 09/23/17 Reported Atorvastatin Calcium 20 Mg Tablet 20 Mg PO HS 09/23/17 Reported Requip (Ropinirole Hcl) 1 Mg Tablet 3 Tab PO QHS 09/23/17 Reported Proair Hfa Inhaler (Albuterol Sulfate) 8.5 Gm Hfa.aer.ad 1 Puff INH PRN Q6HRS PRN 09/23/17 Reported Levothyroxine Sodium 50 Mcg Tablet 1 Tab PO DAILY 09/23/17 Reported Impression . IMPRESSION: 1. Acute on chronic respiratory failure secondary to acute exacerbation of chronic obstructive pulmonary disease, acute bronchitis 2. Abnormal chest x-ray and CT of the chest with enlarging lung nodule, status post right upper lobe CT-guided biopsy on 08/14. 3. Chronic obstructive pulmonary disease with acute exacerbation. 4. Acute bronchitis. 5. Leukocytosis. 6. Coronary artery disease. 7. History of congestive heart failure. 8. Status post automatic implantable cardioverter-defibrillator. 9. Ex-smoker. Plan . Updated 08/17 SARS-CoV-2 negative Continue current support IV Solu-Medrol Lung biopsy results pending DVT prophylaxis PLAN AND RECOMMENDATIONS: 1. Titrate FiO2 to keep O2 saturation 92%. 2. Start Solu-Medrol 40 mg IV every 12 hours. 3. Her COVID-19 PCR testing is pending. When it is back and negative, I will change Combivent to DuoNeb. 4. Follow up lung nodule biopsy. 5. Continue antibiotic. 6. Lovenox for DVT prophylaxis. 7. Protonix for stress ulcer prophylaxis. 8. The findings and recommendations were discussed with the patient. She understood and agreed to proceed with the plan. I have answered all of her questions. Thank you very much for allowing me to participate in care of this very nice lady. LETICIA FORTUNE MD Aug 18, 2021 08:34
[2021-08-18] MEDS: METOPROLOL SUCC 24HR ER 25 MG TAB.ER.24H. PO SCH (09:00)
[2021-08-18] MEDS: SACUBITRIL/VALSARTAN 24/26MG TABLET. PO SCH ×2 (09:00→21:55)
[2021-08-18] MEDS: ARNUITY ELLIPTA INH SCH (09:10)
[2021-08-18] MEDS: LACTOBACILLUS RHAMNOSUS GG 1 CAPSULE. PO SCH ×2 (09:11→21:55)
[2021-08-18] MEDS: CLOPIDOGREL BISULFATE 75 MG TABLET PO SCH (09:11)
[2021-08-18] MEDS: TORSEMIDE 20 MG TABLET. PO SCH (09:12)
[2021-08-18] MEDS: ROFLUMILAST 500 MCG TABLET. PO SCH (09:12)
[2021-08-18] MEDS: ASPIRIN ENTERIC COATED 81 MG TABLET.DR. PO SCH (09:12)
[2021-08-18] MEDS: SPIRONOLACTONE 25 MG TABLET PO SCH (09:12)
[2021-08-18] MEDS: PANTOPRAZOLE 40 MG TABLET.DR. PO SCH (09:12)
[2021-08-18] MEDS: SUCRALFATE 1 GM TABLET. PO SCH ×4 (09:12→21:54)
[2021-08-18] MEDS: CHOLECALCIFEROL (VITAMIN D3) 1,000 UNIT TABLET PO SCH (09:13)
[2021-08-18] MEDS: GABAPENTIN 100 MG CAPSULE. PO SCH ×3 (09:13→21:54)
[2021-08-18] MEDS: FERROUS SULFATE 325 MG TABLET. PO SCH (09:13)
[2021-08-18] MEDS: ALLOPURINOL 300 MG TABLET. PO SCH (09:13)
[2021-08-18] MEDS: CETIRIZINE HCL 10 MG TABLET. PO SCH (09:13)
[2021-08-18] MEDS: methylPREDNISolone SOD SUCC PF 40 MG/ML VIAL. IV SCH ×2 (09:16→21:52)
[2021-08-18] MEDS: POTASSIUM CHLORIDE 20 MEQ TABLET.ER. PO SCH (09:45)
--- NOTE | 2021-08-18 12:28 | PN ---
DATE: 08/18/2021 CHIEF COMPLAINT: Respiratory failure. HISTORY OF PRESENT ILLNESS: The patient is a pleasant 66-year-old female who has end-stage COPD. Once again seen and examined today in room 652 where she is resting, with no apparent distress. I did call the pathologist, he states the lung biopsy was surprisingly negative. I discussed the case with the nurse and the case resolution specialist. ASSESSMENT AND PLAN: Respiratory failure, suspect severe chronic obstructive pulmonary disease with surprisingly negative result on her lung biopsy. For now, we will continue steroids, breathing treatments, oxygen, antibiotics, home meds. DVT prophylaxis. Full code. MARTA/GREGORY DR: Shelby TID: [id number]
--- NOTE | 2021-08-18 13:38 | NUR ---
SS following up with discharge planning. SS reviewed pt chart and discussed with pt RN. Pt is from home and is currently requiring oxygen at three liters nasal canula. COVID19 negative. Pt on IV Levaquin and IV Solu-Medrol. Pt has home oxygen. Pt was on services with [facility], ; fax [phone]. SS will continue to follow for discharge planning.
[2021-08-18] MEDS: ENOXAPARIN 40 MG/0.4 ML SYRINGE. SQ SCH (21:53)
[2021-08-18] MEDS: rOPINIRole 1 MG TABLET. PO SCH (21:53)
[2021-08-18] MEDS: AMITRIPTYLINE HCL 25 MG TABLET. PO SCH (21:54)
[2021-08-18] MEDS: MONTELUKAST SODIUM 10 MG TABLET. PO SCH (21:54)
[2021-08-18] MEDS: ATORVASTATIN CALCIUM 20 MG TABLET PO SCH (21:55)
[2021-08-19 02:50] VITALS: BP 94/48
[2021-08-19] MEDS: LEVOTHYROXINE 50 MCG TABLET PO SCH (06:07)
[2021-08-19 07:00] VITALS: BP 94/49
[2021-08-19] MEDS: SUCRALFATE 1 GM TABLET. PO SCH ×4 (08:24→20:44)
[2021-08-19] MEDS: SPIRONOLACTONE 25 MG TABLET PO SCH (08:24)
[2021-08-19] MEDS: methylPREDNISolone SOD SUCC PF 40 MG/ML VIAL. IV SCH ×2 (08:24→20:43)
[2021-08-19] MEDS: LACTOBACILLUS RHAMNOSUS GG 1 CAPSULE. PO SCH ×2 (08:24→20:43)
[2021-08-19] MEDS: SACUBITRIL/VALSARTAN 24/26MG TABLET. PO SCH ×2 (08:25→20:43)
[2021-08-19] MEDS: ASPIRIN ENTERIC COATED 81 MG TABLET.DR. PO SCH (08:25)
[2021-08-19] MEDS: ROFLUMILAST 500 MCG TABLET. PO SCH (08:25)
[2021-08-19] MEDS: CHOLECALCIFEROL (VITAMIN D3) 1,000 UNIT TABLET PO SCH (08:25)
[2021-08-19] MEDS: CETIRIZINE HCL 10 MG TABLET. PO SCH (08:25)
[2021-08-19] MEDS: FERROUS SULFATE 325 MG TABLET. PO SCH (08:25)
[2021-08-19] MEDS: METOPROLOL SUCC 24HR ER 25 MG TAB.ER.24H. PO SCH (08:26)
[2021-08-19] MEDS: GABAPENTIN 100 MG CAPSULE. PO SCH ×3 (08:26→20:43)
[2021-08-19] MEDS: TORSEMIDE 20 MG TABLET. PO SCH (08:26)
[2021-08-19] MEDS: POTASSIUM CHLORIDE 20 MEQ TABLET.ER. PO SCH (08:26)
[2021-08-19] MEDS: PANTOPRAZOLE 40 MG TABLET.DR. PO SCH (08:26)
[2021-08-19] MEDS: ALLOPURINOL 300 MG TABLET. PO SCH (08:26)
[2021-08-19] MEDS: CLOPIDOGREL BISULFATE 75 MG TABLET PO SCH (08:26)
--- NOTE | 2021-08-19 08:27 | PDOC ---
[facility] [facility] PROGRESS NOTE Date of Service DOS: DATE: 08/19/21 TIME: 08:26 Chief Complaint Chief Complaint End-stage COPD iwth acute Exacerbation Status post lung biopsy last Tuesday (results were negative for malignancy) Acute bronchitis chronic hypoxic respiratory failure, acute on chronic hypercarbia History of CAD asymptomatic History of CHF compensated Diabetes mellitus type 2 insulin requiring Essential hypertension hyperlipidemia Acquired hypothyroidism has AICD for CAD, CHF Hx tobacco abuse (quit 3 years ago) History of Present Illness History of Present Illness 08/19/2021 Patient seen and examined She is resting with no apparent distress Chart reviewed 08/17/2021 Patient seen and examined Discussed with RN Chart reviewed She is still very short of breath and coughing a lot and wheezing Vitals/I&O Vitals/I&O: Vital Signs Date Time Temp Pulse Resp B/P (MAP) Pulse Ox O2 Delivery O2 Flow Rate FiO2 08/19/21 02:50 98.4 89 20 94/48 (63) 96 Nasal Cannula 3.0 98.4 I & O 08/18/21 08/18/21 08/19/21 15:00 23:00 07:00 Intake Total 500 ml 310 ml 400 ml Output Total 1101 ml Balance 500 ml -791 ml 400 ml Physical Exam General: No acute distress Heart: No murmurs Lungs: Wheezing, Crackles Extremities: No cyanosis, No edema Skin: No breakdown Assessment and Plan Assessmemt and Plan Problems Medical Problems: (1) COPD exacerbation Status: Acute End-stage COPD iwth acute Exacerbation Status post lung biopsy last Tuesday awaiting results Acute bronchitis chronic hypoxic respiratory failure, acute on chronic hypercarbia History of CAD asymptomatic History of CHF compensated Diabetes mellitus type 2 insulin requiring Essential hypertension hyperlipidemia Acquired hypothyroidism has AICD for CAD, CHF Hx tobacco abuse (quit 3 years ago) Plan Hope to discharge when okay with pulmonary for now continue the following; Cardiac monitoring Steroid Antibiotics O2 per nasal cannula Pulmonary following Trend labs Home meds DVT prophylaxis Full code Long-term prognosis guarded (might need hospice)? Comment Review of Relevant I have reviewed the following items jon (where applicable) has been applied. Justifications for Admission Other Justification COPD exacerbation JULIANA ERNST III DO Aug 19, 2021 08:27
[2021-08-19] MEDS: ARNUITY ELLIPTA INH SCH (08:36)
[2021-08-19] MEDS: IPRATRPIUM/ALBUTEROL 0.5/2.5MG 3 ML NEBU. NEB SCH ×4 (08:53→18:19)
--- NOTE | 2021-08-19 09:26 | PDOC ---
PULMONARY PROGRESS NOTES DATE: 08/19/21 TIME: 09:26 Subjective Patient severely more short of breath unable to walk around the room without experiencing dyspnea and tachypnea Vitals Vital Signs Date Time Temp Pulse Resp B/P (MAP) Pulse Ox O2 Delivery O2 Flow Rate FiO2 08/19/21 08:54 99 Nasal Cannula 3.0 08/19/21 08:26 89 118/48 08/19/21 07:00 98.4 20 98.4 ROS: No Nausea, No Chest Pain, No Abdominal Pain, No Increase Cough General: Alert, No acute distress HEENT: Other Lungs: Wheezing, Crackles Cardiovascular: S1, S2 Abdomen: Soft, Non-tender Neuro Exam: Alert Extremities: No Edema Skin: Warm Medications Active Scripts Medications Dose Route/Sig Max Daily Dose Days Date Category Prednisone (Prednisone) 10 Mg Tablet 1 Tab PO DAILY 3 08/03/21 Rx Prednisone (Prednisone) 10 Mg Tablet 2 Tab PO DAILY 3 08/03/21 Rx Prednisone (Prednisone) 10 Mg Tablet 3 Tab PO DAILY 3 08/03/21 Rx Ferrous Sulfate 325 Mg Tablet 1 Tab PO DAILY 07/26/21 Reported Sucralfate 1 Gm Tablet 1 Tab PO QID 07/26/21 Reported Clopidogrel (Clopidogrel Bisulfate) 75 Mg Tablet 1 Tab PO DAILY 07/20/21 Reported Methocarbamol 500 Mg Tablet 1,000 Mg PO PRN BID PRN 05/25/21 Reported Spironolactone 25 Mg Tablet 25 Mg PO DAILY 05/19/21 Reported Metoprolol Succinate ( Xl ) (Metoprolol Succinate) 25 Mg Tab.er.24h 25 Mg PO DAILY 05/19/21 Reported Voltaren Arthritis Pain (Diclofenac Sodium) 20 Gm Gel..gram. 20 Gm TP PRN PRN 05/19/21 Reported Entresto 24 mg-26 mg Tablet (Sacubitril/Valsartan) 1 Each Tablet 1 Each PO BID 30 11/19/20 Rx Gabapentin (Gabapentin) 100 Mg Capsule 100 Mg PO TID 10/18/20 Reported Alendronate Sodium 70 Mg Tablet 1 Tab PO WEEKLY 10/16/20 Reported Allopurinol 300 Mg Tablet 1 Tab PO DAILY 10/16/20 Reported Trelegy Ellipta 100-62.5-25 (Fluticasone/Umeclidin/Vilanter) 1 Each Blst.w.dev 1 Each IH DAILY 03/17/20 Reported Prilosec Otc (Omeprazole Magnesium) 20 Mg Tablet.dr 40 Mg PO DAILY 03/17/20 Reported Duoneb 0.5-3(2.5) Mg/3 Ml (Albuterol/Ipratropium) 3 Ml Ampul.neb 3 Ml NEB Q4HRS 14 10/22/19 Rx K-Tab ER (Potassium Chloride) 20 Meq Tablet.er 20 Meq PO DAILY 07/30/19 Reported Montelukast Sodium Tablet (Montelukast Sodium) 10 Mg Tablet 10 Mg PO HS 07/29/19 Reported Levocetirizine Dihydrochloride 5 Mg Tablet 5 Mg PO DAILY 07/29/19 Reported Amitriptyline Hcl 25 Mg Tablet 25 Mg PO QHS 07/29/19 Reported Aspir 81 (Aspirin) 81 Mg Tablet.dr 1 Tab PO DAILY 01/03/18 Reported Vitamin D3 (Cholecalciferol (Vitamin D3)) 1,000 Unit Tablet 1 Tab PO DAILY 01/02/18 Reported Torsemide 20 Mg Tablet 2 Tab PO DAILY 01/02/18 Reported Daliresp (Roflumilast) 500 Mcg Tablet 1 Tab PO DAILY 09/23/17 Reported Atorvastatin Calcium 20 Mg Tablet 20 Mg PO HS 09/23/17 Reported Requip (Ropinirole Hcl) 1 Mg Tablet 3 Tab PO QHS 09/23/17 Reported Proair Hfa Inhaler (Albuterol Sulfate) 8.5 Gm Hfa.aer.ad 1 Puff INH PRN Q6HRS PRN 09/23/17 Reported Levothyroxine Sodium 50 Mcg Tablet 1 Tab PO DAILY 09/23/17 Reported Impression . IMPRESSION: 1. Acute on chronic respiratory failure secondary to acute exacerbation of chronic obstructive pulmonary disease, acute bronchitis 2. Abnormal chest x-ray and CT of the chest with enlarging lung nodule, status post right upper lobe CT-guided biopsy on 08/14. 3. Chronic obstructive pulmonary disease with acute exacerbation. 4. Acute bronchitis. 5. Leukocytosis. 6. Coronary artery disease. 7. History of congestive heart failure. 8. Status post automatic implantable cardioverter-defibrillator. 9. Ex-smoker. Plan . Updated 08/19 We will continue current support hopeful that she can discharge tomorrow Discussed with Dr. Pop On exam patient with significant wheezing, utilizing accessory muscles to breathe, prolonged expiratory phase, suspect if she goes home today she will be right back in the emergency room Updated 08/18 Spoke with pathologist, preliminary report no evidence of cancer on biopsy Patient slowly improving possible discharge in a.m. on 08/19 Home with home health Follow-up with Dr. Casillas in the office Updated 08/17 SARS-CoV-2 negative Continue current support IV Solu-Medrol Lung biopsy results pending DVT prophylaxis LETICIA FORTUNE MD Aug 19, 2021 09:26
[2021-08-19 09:52] LABS: BASO % 0 % (0-3); EOS % 0 % (0-3); HEMATOCRIT 25.2 % (36.0-47.0); HEMOGLOBIN 8.2 g/dL (12.0-15.5); LYMPH # 0.5 x10^3/uL (1.0-4.8); LYMPH % 5 % (24-48); MEAN CORPUSCULAR HEMOGLOBIN 29 pg (25-35); MEAN CORPUSCULAR HGB CONC 33 g/dL (31-37); MEAN CORPUSCULAR VOLUME 89 fL (79-100); MONO # 0.4 x10^3/uL (0.0-1.1); MONO % 4 % (0-9); NEUT # 8.3 x10^3/uL (1.8-7.7); NEUT % 91 % (31-73); PLATELET COUNT 439 x10^3/uL (140-400); RED BLOOD COUNT 2.84 x10^6/uL (3.50-5.40); RED CELL DISTRIBUTION WIDTH 16.5 % (11.5-14.5); WHITE BLOOD COUNT 9.2 x10^3/uL (4.0-11.0)
[2021-08-19 10:23] LABS: CALCIUM 9.7 mg/dL (8.5-10.1); CREATININE 1.6 mg/dL (0.6-1.0); GFR 32.2; POTASSIUM 4.8 mmol/L (3.5-5.1)
[2021-08-19 11:00] VITALS: BP 98/47
[2021-08-19] MEDS ORDERED: DOXY100C3 PO (13:01)
[2021-08-19] MEDS ORDERED: METH4TAB2 PO (13:01)
--- NOTE | 2021-08-19 13:02 | SNU/HH DC ---
DISCHARGE WITH HOME HEALTH DISCHARGE INFORMATION: Final Diagnosis: Problems Medical Problems: (1) COPD exacerbation Status: Acute Condition on Discharge: Stable CODE STATUS: Code Status: Full HOME HEALTH: Face to Face: I certify this patient is under my care and that I, or a nurse practitioner or physician's training assistant working with me, had a face to face encounter that meets the physician face to face encounter requirements with this patient on []. Medical Complications: COPD RN For Eval/Treatment: Yes Physical Therapy For: Evalulation/Treatment Occupational Therapy For: Evaluation/Treatment Home Health Aide For: Self-care MARINE BIOLOGIST For: Community Resources Pt Meets Homebound Status: Poor coordination w/ amb. POST DISCHARGE ORDERS: Activity Instructions for Disc: Activity as tolerated Weight Bearing Status after Di: No restrictions Bathing Instructions: No Tub Bath until see DIET AFTER DISCHARGE: Cardiac Wound/Incision Care: Ice to area for comfort, Change dressing, May get incision wet CHECKS AFTER DISCHARGE: Checks after discharge: Check blood press - daily, Check your Temp as needed, Weigh Yourself Daily TREATMENT/EQUIPMENT ORDERS: Adaptive Equipment Issued: None Discharge Respiratory Equipmen: Oxygen CERTIFICATION STATEMENT: Certification Statement: Certification Statement: Based on the above finding, I certify that this patient is confined to the home and needs intermittent alf care, physical therapy and/or speech therapy, or continues to need occupational therapy.~ This patient is under my care, and I have initiated the establishment of the plan of care.~ This patient will be followed by myself or a community physician who will periodically review the plan of care. Home Meds Active Scripts Doxycycline Hyclate (DOXYCYCLINE HYCLATE) 100 Mg Capsule, 1 CAP PO BID for ., #14 CAP Prov:CASTLE,NIAL K III DO 08/19/21 Methylprednisolone (MEDROL) 4 Mg Tab.ds.pk, 1 PKG PO UD for ., #1 PKG Prov:CASTLE,NIAL K III DO 08/19/21 Prednisone (PREDNISONE ) 10 Mg Tablet, 1 TAB PO DAILY for prednisone taper for 3 Days, #3 TAB 0 Refills Prov:BRAYAN RAYMOND MD 08/03/21 Prednisone (PREDNISONE ) 10 Mg Tablet, 2 TAB PO DAILY for prednisone taper for 3 Days, #6 TAB 0 Refills Prov:BRAYAN RAYMOND MD 08/03/21 Prednisone (PREDNISONE ) 10 Mg Tablet, 3 TAB PO DAILY for prednisone taper for 3 Days, #9 TAB 0 Refills Prov:BRAYAN RAYMOND MD 08/03/21 Sacubitril/Valsartan (Entresto 24 mg-26 mg Tablet) 1 Each Tablet, 1 EACH PO BID for chf for 30 Days, #60 TAB 2 Refills Prov:GENOTOÑORomana Mclean [employer]CELAIN FINISHER 11/19/20 Ipratropium/Albuterol Sulfate (DUONEB 0.5-3(2.5) MG/3 ML) 3 Ml Ampul.neb, 3 ML NEB Q4HRS for WHEEZING, COUGH for 14 Days, #84 EACH Prov:PHONG YEBOAH MD 10/22/19 Reported Medications Ferrous Sulfate (FERROUS SULFATE) 325 Mg Tablet, 1 TAB PO DAILY for supplement, #30 TAB 3 Refills 07/26/21 Sucralfate (SUCRALFATE) 1 Gm Tablet, 1 TAB PO QID for gerd, #120 TAB 3 Refills 07/26/21 Clopidogrel Bisulfate (CLOPIDOGREL) 75 Mg Tablet, 1 TAB PO DAILY for rx, #90 TAB 1 Refill 07/20/21 Methocarbamol (METHOCARBAMOL) 500 Mg Tablet, 1000 MG PO PRN BID PRN for muscle relaxer, TAB 05/25/21 Spironolactone (SPIRONOLACTONE) 25 Mg Tablet, 25 MG PO DAILY for , TAB 05/19/21 Metoprolol Succinate (METOPROLOL SUCCINATE ( XL )) 25 Mg Tab.er.24h, 25 MG PO DAILY for FOR HYPERTENSION, #30 TAB 0 Refills 05/19/21 Diclofenac Sodium (Voltaren Arthritis Pain) 20 Gm Gel..gram., 20 GM TP PRN PRN for PAIN, EACH 05/19/21 Gabapentin (GABAPENTIN ) 100 Mg Capsule, 100 MG PO TID for NEUROGENIC PAIN, CAP 10/18/20 Alendronate Sodium (ALENDRONATE SODIUM) 70 Mg Tablet, 1 TAB PO WEEKLY for 10/16/20 Allopurinol (ALLOPURINOL) 300 Mg Tablet, 1 TAB PO DAILY for gout 10/16/20 Fluticasone/Umeclidin/Vilanter (Trelegy Ellipta 100-62.5-25) 1 Each Blst.w.dev, 1 EACH IH DAILY for rx 6/15/20 Omeprazole Magnesium (PRILOSEC OTC) 20 Mg Tablet.dr, 40 MG PO DAILY for rx, TAB 03/17/20 Potassium Chloride (K-Tab ER) 20 Meq Tablet.er, 20 MEQ PO DAILY for hypokalemia 07/30/19 Montelukast Sodium (MONTELUKAST SODIUM TABLET ) 10 Mg Tablet, 10 MG PO HS for FOR ASTHMA, TAB 0 Refills 07/29/19 Levocetirizine Dihydrochloride (LEVOCETIRIZINE DIHYDROCHLORIDE) 5 Mg Tablet, 5 MG PO DAILY for allergies, TAB 07/29/19 Amitriptyline Hcl (AMITRIPTYLINE HCL) 25 Mg Tablet, 25 MG PO QHS for nerve pain, TAB 07/29/19 Aspirin (ASPIR 81) 81 Mg Tablet.dr, 1 TAB PO DAILY, #30 TAB 5 Refills 01/03/18 Cholecalciferol (Vitamin D3) (VITAMIN D3) 1,000 Unit Tablet, 1 TAB PO DAILY, #30 TAB 5 Refills 01/02/18 Torsemide (TORSEMIDE) 20 Mg Tablet, 2 TAB PO DAILY for , #90 TAB 1 Refill 01/02/18 Roflumilast (DALIRESP) 500 Mcg Tablet, 1 TAB PO DAILY, #90 TAB 3 Refills 09/23/17 Atorvastatin Calcium (ATORVASTATIN CALCIUM) 20 Mg Tablet, 20 MG PO HS for FOR CHOLESTEROL, #30 TAB 0 Refills 09/23/17 Ropinirole Hcl (REQUIP) 1 Mg Tablet, 3 TAB PO QHS, #30 TAB 2 Refills 09/23/17 Albuterol Sulfate (PROAIR HFA INHALER) 8.5 Gm Hfa.aer.ad, 1 PUFF INH PRN Q6HRS PRN for SHORTNESS OF BREATH, INHALER 0 Refills 09/23/17 Levothyroxine Sodium (LEVOTHYROXINE SODIUM) 50 Mcg Tablet, 1 TAB PO DAILY, #30 TAB 5 Refills 09/23/17 JULIANA ERNST III DO Aug 19, 2021 13:02
[2021-08-19] MEDS: ACETAMINOPHEN 325 MG TABLET. PO PRN (14:09)
[2021-08-19 15:00] VITALS: BP 79/38
--- NOTE | 2021-08-19 15:48 | NUR ---
SS following up with discharge planning. SS reviewed pt chart and discussed with pt RN. Pt is currently requiring oxygen at three liters nasal canula. COVID19 negative. Pt on IV Levaquin and IV Solu-Medrol. Pt has home oxygen and is currently on services with [facility], ; fax [phone]. Per Pulmonology, pt not ready for discharge at this time. SS will continue to follow for discharge planning.
[2021-08-19] MEDS: ENOXAPARIN 40 MG/0.4 ML SYRINGE. SQ SCH (18:37)
[2021-08-19 19:39] VITALS: BP 91/55
[2021-08-19] MEDS: rOPINIRole 1 MG TABLET. PO SCH (20:43)
[2021-08-19] MEDS: ATORVASTATIN CALCIUM 20 MG TABLET PO SCH (20:43)
[2021-08-19] MEDS: MONTELUKAST SODIUM 10 MG TABLET. PO SCH (20:44)
[2021-08-19] MEDS: AMITRIPTYLINE HCL 25 MG TABLET. PO SCH (20:44)
[2021-08-19 22:51] VITALS: BP 94/46
[2021-08-20 02:47] VITALS: BP 91/47
[2021-08-20] MEDS: LEVOTHYROXINE 50 MCG TABLET PO SCH (06:26)
[2021-08-20 07:00] VITALS: BP 88/43
[2021-08-20] MEDS: SUCRALFATE 1 GM TABLET. PO SCH ×2 (07:44→11:36)
[2021-08-20] MEDS: PANTOPRAZOLE 40 MG TABLET.DR. PO SCH (07:44)
[2021-08-20] MEDS: SACUBITRIL/VALSARTAN 24/26MG TABLET. PO SCH (07:55)
[2021-08-20] MEDS: SPIRONOLACTONE 25 MG TABLET PO SCH (07:56)
[2021-08-20] MEDS: METOPROLOL SUCC 24HR ER 25 MG TAB.ER.24H. PO SCH (07:56)
--- NOTE | 2021-08-20 08:21 | PDOC ---
PULMONARY PROGRESS NOTES DATE: 08/20/21 TIME: 08:21 Subjective Patient almost back to baseline, continues to be short of breath and wheezing. Vitals Vital Signs Date Time Temp Pulse Resp B/P (MAP) Pulse Ox O2 Delivery O2 Flow Rate FiO2 08/20/21 07:56 115 88/43 08/20/21 07:00 98.0 18 100 Nasal Cannula 3.0 98.0 ROS: No Nausea, No Chest Pain, No Abdominal Pain, No Increase Cough General: Alert, No acute distress HEENT: Other Lungs: Wheezing, Crackles Cardiovascular: S1, S2 Abdomen: Soft, Non-tender Neuro Exam: Alert Extremities: No Edema Skin: Warm Labs Laboratory Tests Test 08/19/21 09:35 White Blood Count 9.2 x10^3/uL (4.0-11.0) Red Blood Count 2.84 x10^6/uL (3.50-5.40) Hemoglobin 8.2 g/dL (12.0-15.5) Hematocrit 25.2 % (36.0-47.0) Mean Corpuscular Volume 89 fL (79-100) Mean Corpuscular Hemoglobin 29 pg (25-35) Mean Corpuscular Hemoglobin Concent 33 g/dL (31-37) Red Cell Distribution Width 16.5 % (11.5-14.5) Platelet Count 439 x10^3/uL (140-400) Neutrophils (%) (Auto) 91 % (31-73) Lymphocytes (%) (Auto) 5 % (24-48) Monocytes (%) (Auto) 4 % (0-9) Eosinophils (%) (Auto) 0 % (0-3) Basophils (%) (Auto) 0 % (0-3) Neutrophils # (Auto) 8.3 x10^3/uL (1.8-7.7) Lymphocytes # (Auto) 0.5 x10^3/uL (1.0-4.8) Monocytes # (Auto) 0.4 x10^3/uL (0.0-1.1) Eosinophils # (Auto) 0.0 x10^3/uL (0.0-0.7) Basophils # (Auto) 0.0 x10^3/uL (0.0-0.2) Sodium Level 135 mmol/L (136-145) Potassium Level 4.8 mmol/L (3.5-5.1) Chloride Level 92 mmol/L (98-107) Carbon Dioxide Level 41 mmol/L (21-32) Anion Gap 2 (6-14) Blood Urea Nitrogen 36 mg/dL (7-20) Creatinine 1.6 mg/dL (0.6-1.0) Estimated GFR (Cockcroft-Gault) 32.2 Glucose Level 210 mg/dL (70-99) Calcium Level 9.7 mg/dL (8.5-10.1) Laboratory Tests Test 08/19/21 09:35 White Blood Count 9.2 x10^3/uL (4.0-11.0) Red Blood Count 2.84 x10^6/uL (3.50-5.40) Hemoglobin 8.2 g/dL (12.0-15.5) Hematocrit 25.2 % (36.0-47.0) Mean Corpuscular Volume 89 fL (79-100) Mean Corpuscular Hemoglobin 29 pg (25-35) Mean Corpuscular Hemoglobin Concent 33 g/dL (31-37) Red Cell Distribution Width 16.5 % (11.5-14.5) Platelet Count 439 x10^3/uL (140-400) Neutrophils (%) (Auto) 91 % (31-73) Lymphocytes (%) (Auto) 5 % (24-48) Monocytes (%) (Auto) 4 % (0-9) Eosinophils (%) (Auto) 0 % (0-3) Basophils (%) (Auto) 0 % (0-3) Neutrophils # (Auto) 8.3 x10^3/uL (1.8-7.7) Lymphocytes # (Auto) 0.5 x10^3/uL (1.0-4.8) Monocytes # (Auto) 0.4 x10^3/uL (0.0-1.1) Eosinophils # (Auto) 0.0 x10^3/uL (0.0-0.7) Basophils # (Auto) 0.0 x10^3/uL (0.0-0.2) Sodium Level 135 mmol/L (136-145) Potassium Level 4.8 mmol/L (3.5-5.1) Chloride Level 92 mmol/L (98-107) Carbon Dioxide Level 41 mmol/L (21-32) Anion Gap 2 (6-14) Blood Urea Nitrogen 36 mg/dL (7-20) Creatinine 1.6 mg/dL (0.6-1.0) Estimated GFR (Cockcroft-Gault) 32.2 Glucose Level 210 mg/dL (70-99) Calcium Level 9.7 mg/dL (8.5-10.1) Medications Active Scripts Medications Dose Route/Sig Max Daily Dose Days Date Category Prednisone (Prednisone) 10 Mg Tablet 1 Tab PO DAILY 3 08/03/21 Rx Prednisone (Prednisone) 10 Mg Tablet 2 Tab PO DAILY 3 08/03/21 Rx Prednisone (Prednisone) 10 Mg Tablet 3 Tab PO DAILY 3 08/03/21 Rx Ferrous Sulfate 325 Mg Tablet 1 Tab PO DAILY 07/26/21 Reported Sucralfate 1 Gm Tablet 1 Tab PO QID 07/26/21 Reported Clopidogrel (Clopidogrel Bisulfate) 75 Mg Tablet 1 Tab PO DAILY 07/20/21 Reported Methocarbamol 500 Mg Tablet 1,000 Mg PO PRN BID PRN 05/25/21 Reported Spironolactone 25 Mg Tablet 25 Mg PO DAILY 05/19/21 Reported Metoprolol Succinate ( Xl ) (Metoprolol Succinate) 25 Mg Tab.er.24h 25 Mg PO DAILY 05/19/21 Reported Voltaren Arthritis Pain (Diclofenac Sodium) 20 Gm Gel..gram. 20 Gm TP PRN PRN 05/19/21 Reported Entresto 24 mg-26 mg Tablet (Sacubitril/Valsartan) 1 Each Tablet 1 Each PO BID 30 11/19/20 Rx Gabapentin (Gabapentin) 100 Mg Capsule 100 Mg PO TID 10/18/20 Reported Alendronate Sodium 70 Mg Tablet 1 Tab PO WEEKLY 10/16/20 Reported Allopurinol 300 Mg Tablet 1 Tab PO DAILY 10/16/20 Reported Trelegy Ellipta 100-62.5-25 (Fluticasone/Umeclidin/Vilanter) 1 Each Blst.w.dev 1 Each IH DAILY 03/17/20 Reported Prilosec Otc (Omeprazole Magnesium) 20 Mg Tablet.dr 40 Mg PO DAILY 03/17/20 Reported Duoneb 0.5-3(2.5) Mg/3 Ml (Albuterol/Ipratropium) 3 Ml Ampul.neb 3 Ml NEB Q4HRS 14 10/22/19 Rx K-Tab ER (Potassium Chloride) 20 Meq Tablet.er 20 Meq PO DAILY 07/30/19 Reported Montelukast Sodium Tablet (Montelukast Sodium) 10 Mg Tablet 10 Mg PO HS 07/29/19 Reported Levocetirizine Dihydrochloride 5 Mg Tablet 5 Mg PO DAILY 07/29/19 Reported Amitriptyline Hcl 25 Mg Tablet 25 Mg PO QHS 07/29/19 Reported Aspir 81 (Aspirin) 81 Mg Tablet.dr 1 Tab PO DAILY 01/03/18 Reported Vitamin D3 (Cholecalciferol (Vitamin D3)) 1,000 Unit Tablet 1 Tab PO DAILY 01/02/18 Reported Torsemide 20 Mg Tablet 2 Tab PO DAILY 01/02/18 Reported Daliresp (Roflumilast) 500 Mcg Tablet 1 Tab PO DAILY 09/23/17 Reported Atorvastatin Calcium 20 Mg Tablet 20 Mg PO HS 09/23/17 Reported Requip (Ropinirole Hcl) 1 Mg Tablet 3 Tab PO QHS 09/23/17 Reported Proair Hfa Inhaler (Albuterol Sulfate) 8.5 Gm Hfa.aer.ad 1 Puff INH PRN Q6HRS PRN 09/23/17 Reported Levothyroxine Sodium 50 Mcg Tablet 1 Tab PO DAILY 09/23/17 Reported Impression . IMPRESSION: 1. Acute on chronic respiratory failure secondary to acute exacerbation of chronic obstructive pulmonary disease, acute bronchitis 2. Abnormal chest x-ray and CT of the chest with enlarging lung nodule, status post right upper lobe CT-guided biopsy on 08/14. 3. Chronic obstructive pulmonary disease with acute exacerbation. 4. Acute bronchitis. 5. Leukocytosis. 6. Coronary artery disease. 7. History of congestive heart failure. 8. Status post automatic implantable cardioverter-defibrillator. 9. Ex-smoker. Plan . Updated 08/20 Patient discharged home discussed with Dr. Coello Follow-up with Dr. Tejeda in the office updated 08/19 We will continue current support hopeful that she can discharge tomorrow Discussed with Dr. Pop On exam patient with significant wheezing, utilizing accessory muscles to breathe, prolonged expiratory phase, suspect if she goes home today she will be right back in the emergency room Updated 08/18 Spoke with pathologist, preliminary report no evidence of cancer on biopsy Patient slowly improving possible discharge in a.m. on 08/19 Home with home health Follow-up with Dr. Casillas in the office LETICIA FORTUNE MD Aug 20, 2021 08:21
[2021-08-20] MEDS: IPRATRPIUM/ALBUTEROL 0.5/2.5MG 3 ML NEBU. NEB SCH ×2 (08:41→11:16)
[2021-08-20] MEDS: ROFLUMILAST 500 MCG TABLET. PO SCH (09:40)
[2021-08-20] MEDS: CHOLECALCIFEROL (VITAMIN D3) 1,000 UNIT TABLET PO SCH (09:40)
[2021-08-20] MEDS: ASPIRIN ENTERIC COATED 81 MG TABLET.DR. PO SCH (09:40)
[2021-08-20] MEDS: POTASSIUM CHLORIDE 20 MEQ TABLET.ER. PO SCH (09:41)
[2021-08-20] MEDS: CLOPIDOGREL BISULFATE 75 MG TABLET PO SCH (09:41)
[2021-08-20] MEDS: LACTOBACILLUS RHAMNOSUS GG 1 CAPSULE. PO SCH (09:41)
[2021-08-20] MEDS: ALLOPURINOL 300 MG TABLET. PO SCH (09:41)
[2021-08-20] MEDS: GABAPENTIN 100 MG CAPSULE. PO SCH (09:41)
[2021-08-20] MEDS: FERROUS SULFATE 325 MG TABLET. PO SCH (09:41)
[2021-08-20] MEDS: CETIRIZINE HCL 10 MG TABLET. PO SCH (09:42)
[2021-08-20] MEDS: TORSEMIDE 20 MG TABLET. PO SCH (09:42)
[2021-08-20] MEDS: ARNUITY ELLIPTA INH SCH (09:42)
[2021-08-20] MEDS: methylPREDNISolone SOD SUCC PF 40 MG/ML VIAL. IV SCH (09:43)
[2021-08-20 10:16] VITALS: BP 107/48
--- NOTE | 2021-08-20 12:29 | NUR ---
SS following up with discharge planning. SS reviewed pt chart and discussed with pt RN. Pt is currently requiring oxygen at four liters nasal canula. Pt has home oxygen. COVID19 negative. Pt accepted on services with [facility], ; fax [phone]. Discharge orders received for home with home healthcare and phoned and faxed to [facility]. Pt reported that her spouse will transport her to home between 1300 and 1330 today. Pt's RN notified.
--- NOTE | 2021-08-20 12:30 | PDOC ---
[facility] PROGRESS NOTE Date of Service DOS: DATE: 08/20/21 TIME: 12:29 Chief Complaint Chief Complaint End-stage COPD iwth acute Exacerbation Status post lung biopsy last Tuesday (results were negative for malignancy) Acute bronchitis chronic hypoxic respiratory failure, acute on chronic hypercarbia History of CAD asymptomatic History of CHF compensated Diabetes mellitus type 2 insulin requiring Essential hypertension hyperlipidemia Acquired hypothyroidism has AICD for CAD, CHF Hx tobacco abuse (quit 3 years ago) History of Present Illness History of Present Illness 08/20/2021 Patient seen and examined with pulmonary physician She seems to be at baseline We will go ahead and redischarge with home health 08/19/2021 Patient seen and examined She is resting with no apparent distress Chart reviewed 08/17/2021 Patient seen and examined Discussed with RN Chart reviewed She is still very short of breath and coughing a lot and wheezing Vitals/I&O Vitals/I&O: Vital Signs Date Time Temp Pulse Resp B/P (MAP) Pulse Ox O2 Delivery O2 Flow Rate FiO2 08/20/21 11:19 98 Nasal Cannula 4.0 08/20/21 10:16 97.6 79 16 107/48 (67) 97.6 I & O 08/19/21 08/19/21 08/20/21 15:00 23:00 07:00 Intake Total 200 ml 740 ml 700 ml Output Total 1000 ml Balance 200 ml 740 ml -300 ml Physical Exam General: No acute distress Heart: No murmurs Lungs: Wheezing, Crackles Extremities: No cyanosis, No edema Skin: No breakdown Assessment and Plan Assessmemt and Plan Problems Medical Problems: (1) COPD exacerbation Status: Acute Discharge with home health see dictation and orders Comment Review of Relevant I have reviewed the following items jon (where applicable) has been applied. Justifications for Admission Other Justification COPD exacerbation JULIANA ERNST III DO Aug 20, 2021 12:30
--- NOTE | 2021-08-20 13:39 | NUR ---
Discharge Note: JAYCOB CRAWFORD [address] Discharge instructions and discharge home medications reviewed with Patient and a copy given. All questions have been answered and understanding verbalized. The following instructions and handouts were given: COPD, COPD exacerbation IV discontinued, no complications Patient discharged to home with home health All belongings taken home with patient.
--- NOTE | 2021-08-20 13:54 | DS ---
DATE OF DISCHARGE: 08/20/2021 ADMITTING DIAGNOSIS: Severe respiratory failure secondary to end-stage chronic obstructive pulmonary disease. DISCHARGE DIAGNOSES: Resolving chronic obstructive pulmonary disease exacerbation (she still has end-stage COPD, though as a baseline), history lung biopsy last Tuesday, which results were surprisingly negative; resolving bronchitis; history of coronary artery disease, history of congestive heart failure, diabetes, hypertension, hyperlipidemia, polypharmacy, hypothyroidism, history of automatic implantable cardioverter-defibrillator; tobacco abuse, but she quit smoking 3 years ago. CONSULTS: Pulmonary Medicine. PROCEDURES: None. HOSPITAL COURSE: The patient is a pleasant, middle-aged female well known to our service. She basically has end-stage COPD. She also had a lung biopsy done last Tuesday. We admitted the patient with respiratory failure secondary to COPD. We gave her steroids, breathing treatments, oxygen, antibiotics and consult to Pulmonary Medicine. I spoke with Dr. Arceo. Her pathology report is actually negative. Today, I saw and examined Dr. Diego. She seems to be at her baseline. We are going to discharge with home health. DISPOSITION: Home with home health. ACTIVITY: As tolerated. DIET: Low sodium. DISCHARGE MEDICATIONS: 1. Medrol Dosepak. 2. Doxycycline 100 p.o. b.i.d. 3. Albuterol. 4. Alendronate 70 weekly. 5. Allopurinol 300 a day. 6. Amitriptyline 25 at bedtime. 7. Atorvastatin 20 a day. 8. Vitamin D. 9. Plavix 75 a day. 10. Voltaren cream. 11. Iron 325 a day. 12. Fluticasone. 13. Gabapentin 100 t.i.d. 14. DuoNeb 4 times a day. 15. Levocetirizine 5 mg daily. 16. Synthroid 50 a day. 17. Methocarbamol 1000 b.i.d. p.r.n. 18. Metoprolol 25 a day. 19. Singulair 10 a day. 20. Omeprazole 40 a day. 21. Potassium 20 a day. 22. Aldactone 25 a day. 23. Requip 3 at bedtime. 24. Entresto 24/ one b.i.d. 25. Furosemide 20 daily. TOTAL TIME: A [address]: MARTA/lisa TID: [id number]
[2021-08-22] MEDS ORDERED: NON FORMULARY ITEM (Alendronate Sodium 1 TAB) PO SCH (09:00)
== END 2021-08-20 13:25 | disposition home health service (06) | DRG 189 ==
LOC: ER 15:55 → ED HOLD 18:50 → 6 SOUTH 21:43
PROVIDERS: ADMIT Internal Medicine; ATTEND Internal Medicine
DX: J96.21 Acute and chronic respiratory failure with hypoxia (principal); I13.0 Hypertensive heart and chronic kidney disease with heart failure and stage 1 through stage 4 chronic kidney disease, or unspecified chronic kidney disease; J44.0 Chronic obstructive pulmonary disease with (acute) lower respiratory infection; J44.1 Chronic obstructive pulmonary disease with (acute) exacerbation; J20.9 Acute bronchitis, unspecified; E03.9 Hypothyroidism, unspecified; E11.22 Type 2 diabetes mellitus with diabetic chronic kidney disease; E78.00 Pure hypercholesterolemia, unspecified; E78.5 Hyperlipidemia, unspecified; I25.10 Atherosclerotic heart disease of native coronary artery without angina pectoris; I50.9 Heart failure, unspecified; N18.9 Chronic kidney disease, unspecified; Z79.4 Long term (current) use of insulin; Z82.49 Family history of ischemic heart disease and other diseases of the circulatory system; Z87.891 Personal history of nicotine dependence; Z95.810 Presence of automatic (implantable) cardiac defibrillator; Z99.81 Dependence on supplemental oxygen; Z20.822 Contact with and (suspected) exposure to COVID-19; Z88.8 Allergy status to other drugs, medicaments and biological substances
CPT/HCPCS: 36415; 71045; 80048; 82525; 82607; 82668; 82728; 82746; 82784; 83010; 83520; 83540; 83550; 83880; 84165; 84484; 85007; 85025; 85045; 85610; 86334; 87426; 87804; 88305; 93005; 94640; 94760; 96361; 96374; J1650; J1956; J2405; J2920; J2930; U0003; U0005; 99285-25; G0378

== ENCOUNTER → 2021-08-26 | Outpatient (CLI) | payer MEDICARE, OTHER ==
[2021-08-20 10:16] VITALS: BP 107/48
[~2021-08-26] MED LIST changes: +DOXY100C3 PO; +METH4TAB2 PO
[2021-08-26 09:04] LABS: BASO % 0 % (0-3); EOS % 0 % (0-3); HEMATOCRIT 29.7 % (36.0-47.0); HEMOGLOBIN 9.6 g/dL (12.0-15.5); LYMPH # 0.7 x10^3/uL (1.0-4.8); LYMPH % 6 % (24-48); MEAN CORPUSCULAR HEMOGLOBIN 29 pg (25-35); MEAN CORPUSCULAR HGB CONC 32 g/dL (31-37); MEAN CORPUSCULAR VOLUME 89 fL (79-100); MONO # 0.4 x10^3/uL (0.0-1.1); MONO % 4 % (0-9); NEUT # 10.5 x10^3/uL (1.8-7.7); NEUT % 90 % (31-73); PLATELET COUNT 483 x10^3/uL (140-400); RED BLOOD COUNT 3.35 x10^6/uL (3.50-5.40); RED CELL DISTRIBUTION WIDTH 17.7 % (11.5-14.5); WHITE BLOOD COUNT 11.7 x10^3/uL (4.0-11.0)
== END ==
LOC: ONCLAB 08:34
PROVIDERS: ATTEND Physician Assistant
DX: D64.9 Anemia, unspecified (principal)
CPT/HCPCS: 36415; 83615; 85025

== ENCOUNTER → 2021-09-18 | Outpatient (CLI) | payer MEDICARE, OTHER ==
[2021-08-20 10:16] VITALS: BP 107/48
[~2021-09-18] MED LIST changes: +HEPARIN PF 500 UNIT/5 ML DISP.SYRIN. IVP ONE
--- NOTE | 2021-09-18 14:12 | RAD ---
NM PET/CT SKULL BASE TO MID THIGH Clinical Indication: Pulmonary nodules Comparison: CT July 26, 2021 CT. PET/CT December 05, 2020. Technique: Patient blood glucose at the time of injection is 84 mg/dL. The patient was administered 1 1.8 mCi of F-18 FDG intravenously. The patient rested quietly during a 60 minute uptake period. Then PET imaging from the skull base to the upper thighs was performed. A noncontrast CT was acquired over this same area. The CT is for attenuation correction and anatomic localization, it is not of diagnos tic quality and is not intended to diagnose disease independently of the PET. PQRS Compliance Statement: One or more of the following individualized dose reduction techniques were utilized for this examinat ion: 1. Automated exposure control 2. Adjustment of the mA and/or kV according to patient size 3. Use of iterative reconstruction technique Findings: Background: Mediastinal SUV max: 3.3 Liver SUV max: 4.12 Head and neck: There is no evidence of FDG-avid disease. Chest: 1 cm right upper lobe pulmonary nodule (series 3 image 46) SUV max 2.56, unchanged. Numerous addition al pulmonary nodules bilaterally. Respiratory motion degrades evaluation and comparison. Largest left upper lobe pulmonary nodule measures 7 mm, unchanged. No consultation or pleural effusion. No pneumo thorax. Right chest wall port. Left-sided pacemaker. Pulmonary emphysema. No pneumothorax. No consoli dation. Small precarinal lymph node measures 0.9 x 0.9 cm SUV max 2.59. Metabolic activity below background S UV Max. Overall size of the lymph node is unchanged compared to recent CT. Increased compared to prio r PET Abdomen and pelvis: The liver, spleen, adrenal glands, and pancreas are unremarkable. Prior cholecystectomy. Right renal cortical defect related to prior insult or infarct. No renal cortical calcification on the right. No hydronephrosis. Decompressed urinary bladder. Mild colonic diverticulosis. Normal appendix. No eviden ce of bowel obstruction. No pathologic lymphadenopathy. No ascites. Focal hypermetabolic activity within the descending colon distal to the splenic flexure. SUV max 7.2 hypermetabolic focus measures approximately 1.4 cm. Well-defined focus on noncontrast CT is difficult to differentiate. Musculoskeletal: There is no evidence of FDG-avid disease. IMPRESSION: 1. Right upper lobe pulmonary nodule with mild metabolic activity. Increased in size over time is st ill concerning for malignancy. 2. Numerous additional pulmonary nodules are PET indeterminate given size. 3. Small precarinal lymph node with metabolic activity below background, similar in overall size com pared to recent CT although increased compared to prior PET. Recommend continued follow-up. 4. Focal hypermetabolic activity within the left descending colon. Recommend patient is up-to-date o n colonoscopy to evaluate for underlying lesion. Also recommend attention on follow-up. Electronically signed by: Michael Jerry DO (09/18/2021 2:09 PM) [id number]
== END ==
LOC: PETSC 09:16
PROVIDERS: ATTEND Internal Medicine Critical Care Medicine
DX: R91.8 Other nonspecific abnormal finding of lung field (principal); J43.9 Emphysema, unspecified; K57.30 Diverticulosis of large intestine without perforation or abscess without bleeding; N32.89 Other specified disorders of bladder
CPT/HCPCS: 78815; A9552; J1642

== ENCOUNTER → 2021-09-30 | Day surgery (SDC) | payer MEDICARE, OTHER ==
[~2021-09-30] VITALS: Ht 165.1 cm; Wt 70.0 kg
[~2021-09-30] MED LIST changes: -HEPARIN PF 500 UNIT/5 ML DISP.SYRIN. IVP ONE; +IPRATRPIUM/ALBUTEROL 0.5/2.5MG 3 ML NEBU. NEB ONE; +IV RINGERS,LACTATED 1000ML 1,000 ML IV SCH; +LIDOCAINE 2% PF 5 ML VIAL. ONE; +PROPOFOL 10 MG/ML (20ML) VIAL. IV ONE
[2021-09-30 07:20] VITALS: BP 102/55
[2021-09-30 08:57] VITALS: BP 121/54
--- NOTE | 2021-09-30 12:08 | CONS ---
DATE OF CONSULTATION: 09/30/2021 REASON FOR CONSULTATION: Anemia. REFERRING PHYSICIAN: Sarah Pate MD. HISTORY OF PRESENT ILLNESS: A 66-year-old female, whose past medical history is significant for COPD as well as GERD, palpitations, CHF, colonic polyps, is seen for interval colon exam. Bowel habits have been regular without diarrhea or constipation. She has been on iron supplements for anemia with hemoglobin of 8.1. Her stools have been dark in color since starting the iron. Last colonoscopy in 2012 did reveal polyps with the recent labs findings and history of polyps. She requests additional evaluation. PAST MEDICAL HISTORY: Stage 3 kidney disease, COPD, CHF, colonic polyps, anemia. ALLERGIES: FENTANYL, IBUPROFEN, NAPROSYN, PIPERACILLIN/TAZOBACTAM. MEDICATIONS: Include albuterol, Fosamax, allopurinol, amitriptyline, atorvastatin, Plavix, diclofenac, doxycycline, gabapentin, levothyroxine, methocarbamol, methylprednisolone, metoprolol, montelukast, omeprazole, Palesep, Requip, Entresto, spironolactone, sucralfate, torsemide. FAMILY HISTORY: Significant for breast cancer with a sister, diabetes and hypertension with mother, diabetes with 2 sibling, VT with mother, liver disease with a brother. PAST SURGICAL HISTORY: Status post pacemaker placement, defibrillator, , cholecystectomy, hysterectomy, joint replacement surgery. REVIEW OF SYSTEMS: Per records. PHYSICAL EXAMINATION: GENERAL: Reveals a pale white female. VITAL SIGNS: Temperature is 98.1, pulse 104, respiratory rate 22, sats are 95. LUNGS: Reveal decreased breath sounds. CARDIOVASCULAR: Reveals S1 and S2, without S3, S4 or appreciable murmur. The defibrillator is noted. ABDOMEN: Reveals a soft abdomen, normal bowel sounds, without appreciable hepatosplenomegaly. IMPRESSION: Anemia with the anticoagulation and a history of colonic polyps. Interval colon exam is recommended at this time. Risks and benefits have been previously discussed including risk of perforation. She is willing to proceed. ANGELIC/JOSE DR: Citlaly TID: [id number]
--- NOTE | 2021-10-01 16:10 | PATHOLOGY ---
[facility] Accession Number: [id number] . 01 Material submitted: . colon - TRANSVERSE COLON POLYP. Modifiers: transverse . 01 Clinical history: . HX POLYPS COLONOSCOPY . 02 Diagnosis: Colon biopsies, transverse colon polyp: - Tubular adenoma. . ([facility]:mm; 10/01/2021) [facility] 10/01/2021 1401 Local . 02 Comment: There is no high grade dysplasia or evidence of malignancy. . ([facility]:mml; 10/01/2021) . 02 Electronically signed: . Herman Arceo MD, Pathologist NPI- [id number] . 01 Gross description: . The specimen is received in formalin, labeled "LeanderSarah, transverse colon polyp". Received are 2 segments of pale boateng tissue measuring 0.2 and 0.4 cm in maximum dimensions. The specimen is entirely submitted in cassette A1. ([facility]; 09/30/2021) [facility] 09/30/2021 2158 Local . 02 Pathologist provided ICD-10: D12.3 . 02 CPT . 304196 Specimen Comment: A courtesy copy of this report has been sent to [phone], [phone] Specimen Comment: [id number] Specimen Comment: Report sent to / DR WILLINGHAM Performed at: 01 [facility] [address] [facility] [address], [place] [id number] MD Gerson Rodriguez MD Phone: [phone] Performed at: 02 [facility] [address] [place], [place] [id number] MD Herman Arceo MD Phone: [phone]
== END | disposition home or self-care (01) ==
LOC: ENDOS 06:56
PROVIDERS: ATTEND Internal Medicine Gastroenterology
DX: D50.9 Iron deficiency anemia, unspecified (principal); D12.3 Benign neoplasm of transverse colon; K57.30 Diverticulosis of large intestine without perforation or abscess without bleeding; K64.0 First degree hemorrhoids; K63.89 Other specified diseases of intestine; I25.10 Atherosclerotic heart disease of native coronary artery without angina pectoris; I13.0 Hypertensive heart and chronic kidney disease with heart failure and stage 1 through stage 4 chronic kidney disease, or unspecified chronic kidney disease; I50.9 Heart failure, unspecified; E11.22 Type 2 diabetes mellitus with diabetic chronic kidney disease; N18.30 Chronic kidney disease, stage 3 unspecified; J44.9 Chronic obstructive pulmonary disease, unspecified; E78.00 Pure hypercholesterolemia, unspecified; E03.9 Hypothyroidism, unspecified; I48.91 Unspecified atrial fibrillation; M19.90 Unspecified osteoarthritis, unspecified site; M81.0 Age-related osteoporosis without current pathological fracture; Z87.891 Personal history of nicotine dependence; Z90.49 Acquired absence of other specified parts of digestive tract; Z90.710 Acquired absence of both cervix and uterus; Z98.890 Other specified postprocedural states; Z86.010 Personal history of colon polyps; Z79.899 Other long term (current) drug therapy; Z79.84 Long term (current) use of oral hypoglycemic drugs; Z88.1 Allergy status to other antibiotic agents; Z88.8 Allergy status to other drugs, medicaments and biological substances; Z82.49 Family history of ischemic heart disease and other diseases of the circulatory system; Z80.3 Family history of malignant neoplasm of breast; Z83.3 Family history of diabetes mellitus
CPT/HCPCS: 45380; 88305; 94640; J2704

== ENCOUNTER → 2021-10-01 | Outpatient (CLI) | payer MEDICARE, OTHER ==
[2021-09-30 08:57] VITALS: BP 121/54
[~2021-10-01] MED LIST changes: -IPRATRPIUM/ALBUTEROL 0.5/2.5MG 3 ML NEBU. NEB ONE; -IV RINGERS,LACTATED 1000ML 1,000 ML IV SCH; -LIDOCAINE 2% PF 5 ML VIAL. ONE; -PROPOFOL 10 MG/ML (20ML) VIAL. IV ONE
[2021-10-01 10:10] LABS: BASO % 0 % (0-3); EOS # 0.1 x10^3/uL (0.0-0.7); EOS % 1 % (0-3); HEMATOCRIT 30.4 % (36.0-47.0); HEMOGLOBIN 9.4 g/dL (12.0-15.5); LYMPH # 0.6 x10^3/uL (1.0-4.8); LYMPH % 8 % (24-48); MEAN CORPUSCULAR HEMOGLOBIN 28 pg (25-35); MEAN CORPUSCULAR HGB CONC 31 g/dL (31-37); MEAN CORPUSCULAR VOLUME 90 fL (79-100); MONO # 0.4 x10^3/uL (0.0-1.1); MONO % 5 % (0-9); NEUT # 6.5 x10^3/uL (1.8-7.7); NEUT % 85 % (31-73); PLATELET COUNT 265 x10^3/uL (140-400); RED BLOOD COUNT 3.39 x10^6/uL (3.50-5.40); WHITE BLOOD COUNT 7.6 x10^3/uL (4.0-11.0)
== END ==
LOC: ONCLAB 09:42
PROVIDERS: ATTEND Internal Medicine Hematology & Oncology
DX: D64.9 Anemia, unspecified (principal)
CPT/HCPCS: 36415; 82728; 83540; 83550; 85025

== ENCOUNTER 2021-10-27 19:38 | Inpatient (IN) | payer MEDICARE, OTHER ==
[~2021-10-27] VITALS: Ht 152.4 cm; Wt 58.6 kg
[2021-10-27] MEDS ORDERED: DEXAMETHASONE SOD PHOS 20 MG/5 ML VIAL. IV ONE (21:00)
--- NOTE | 2021-10-27 21:00 | PHYS DOC ---
Past Medical History Past Medical History: CAD, CHF, COPD, Diabetes-Type II, High Cholesterol, Hypertension, Hypothyroid Additional Past Medical Histor: O2 dependant Past Surgical History: Cholecystectomy, , Hysterectomy, Knee Replacement, Pacemaker, Other Additional Past Surgical Histo: left shoulder; pacemaker/defibrillator, R lung bx Smoking Status: Former Smoker Alcohol Use: None Drug Use: None General Adult EDM: Chief Complaint: SHORTNESS OF BREATH HPI: HPI: Patient is a 66 year old female with a history of diabetes type 2, hypertension, high cholesterol, COPD, oxygen dependent at 3 L continuously, CHF, CAD, who presents the ED today to be evaluated for cough and shortness of breath that has been going on for 3 days. Patient states she has used her breathing treatments prior to coming to the ED. Denies any fever. Denies any chest pain. Review of Systems: Review of Systems: Constitutional: Denies fever or chills. [] Eyes: Denies change in visual acuity. [] HENT: Denies nasal congestion or sore throat. [] Respiratory: Reports cough and shortness of breath Cardiovascular: Denies chest pain or edema. [] GI: Denies abdominal pain, nausea, vomiting, bloody stools or diarrhea. [] : Denies dysuria. [] Musculoskeletal: Denies back pain or joint pain. [] Integument: Denies rash. [] Neurologic: Denies headache, focal weakness or sensory changes. [] Psychiatric: Denies depression or anxiety. [] Heart Score: C/O Chest Pain: N/A Risk Factors: Risk Factors: DM, Current or recent (<one month) smoker, HTN, HLP, family history of CAD, obesity. Risk Scores: Score 0 - 3: 2.5% MACE over next 6 weeks - Discharge Home Score 4 - 6: 20.3% MACE over next 6 weeks - Admit for Clinical Observation Score 7 - 10: 72.7% MACE over next 6 weeks - Early Invasive Strategies Current Medications: Current Medications Medications (Trade) Dose Ordered Sig/Keshav Start Time Stop Time Status Last Admin Dose Admin Dexamethasone Sodium Phosphate (Decadron) 10 mg 1X ONCE 10/27/21 21:00 10/27/21 21:01 Allergies: Allergies: Allergies Coded Allergies Type Severity Reaction Last Updated Verified ibuprofen Allergy Severe Swelling 09/30/21 Yes naproxen Allergy Severe Shortness of Air 09/30/21 Yes piperacillin Allergy Severe Swelling 09/30/21 Yes tazobactam Allergy Severe Swelling 09/30/21 Yes fentanyl Adverse Reaction Severe agitation 09/30/21 Yes Physical Exam: PE: Constitutional: Well developed, well nourished, no acute distress, non-toxic appearance. [] HENT: Normocephalic, atraumatic, bilateral external ears normal, oropharynx moist, no oral exudates, nose normal. [] Eyes: PERRLA, EOMI, conjunctiva normal, no discharge. [] Neck: Normal range of motion, no tenderness, supple, no stridor. [] Cardiovascular:Heart rate regular rhythm, no murmur [] Lungs & Thorax: Bilateral breath sounds clear to auscultation [] Abdomen: Bowel sounds normal, soft, no tenderness, no masses, no pulsatile masses. [] Skin: Warm, dry, no erythema, no rash. [] Back: No tenderness, no CVA tenderness. [] Extremities: No tenderness, no cyanosis, no clubbing, ROM intact, no edema. [] Neurologic: Alert and oriented X 3, normal motor function, normal sensory function, no focal deficits noted. [] Psychologic: Affect normal, judgement normal, mood normal. [] EKG: EK interpreted by Dr. Ward sinus rhythm heart rate 91 no STEMI [] Radiology/Procedures: Radiology/Procedures: []PROCEDURE: PORTABLE CHEST 1V Exam: Chest one view INDICATION: Shortness of breath TECHNIQUE: Frontal view of the chest Comparisons: 08/15/2021 FINDINGS: AICD with leads remaining the right heart. There is a right anterior chest wall port with tip in the SVC. Heart is mildly enlarged. Pulmonary vessels are within normal limits. The lung and pleural spaces are clear. IMPRESSION: No acute pulmonary process. Electronically signed by: Alejandro Knight MD (10/27/2021 9:34 PM) [facility] DICTATED and SIGNED BY: ALEJANDRO KNIGHT MD DATE: 10/27/210678KDY8 0 Course & Med Decision Making: Course & Med Decision Making Pertinent Labs and Imaging studies reviewed. (See chart for details) This a 66-year-old female patient history of COPD on oxygen 3 L at home presenting today complaining of cough shortness of breath for 3 days. Vitals on arrival to the ED temperature 98.5, heart rate 95, blood pressure 105/ 52, O2 sats 100% on 3 L of oxygen, respiration 21. CBC with a normal WBC, hemoglobin 7.5 with hematocrit of 33.6, history of chronic anemia. BNP 194, chest x-ray negative for any acute findings. Spoke with Dr. Pop who accepted patient for admission Justin Disclaimer: Justin Disclaimer: This electronic medical record was generated, in whole or in part, using a voice recognition dictation system. Departure Departure Referrals: ANGIE WILLINGHAM MD (PCP) HESHAM CASTANEDA APRN Oct 27, 2021 21:00
[2021-10-27 21:26] LABS: BASO % 0 % (0-3); EOS % 1 % (0-3); HEMATOCRIT 23.6 % (36.0-47.0); HEMOGLOBIN 7.5 g/dL (12.0-15.5); LYMPH # 0.6 x10^3/uL (1.0-4.8); LYMPH % 9 % (24-48); MEAN CORPUSCULAR HEMOGLOBIN 28 pg (25-35); MEAN CORPUSCULAR HGB CONC 32 g/dL (31-37); MEAN CORPUSCULAR VOLUME 89 fL (79-100); MONO # 0.4 x10^3/uL (0.0-1.1); MONO % 6 % (0-9); NEUT # 5.4 x10^3/uL (1.8-7.7); NEUT % 84 % (31-73); PLATELET COUNT 330 x10^3/uL (140-400); RED BLOOD COUNT 2.65 x10^6/uL (3.50-5.40); RED CELL DISTRIBUTION WIDTH 18.2 % (11.5-14.5); WHITE BLOOD COUNT 6.4 x10^3/uL (4.0-11.0)
--- NOTE | 2021-10-27 21:30 | EKG ---
[facility] [address] [place] [address] Test Date: 2021-10-27 Test Time: 21:04:25 Pat Name: JAYCOB CRAWFORD Department: Room: Gender: F Seconds Handler: : 1955 Requested By: HESHAM CASTANEDA Order Number: [id number] Reading MD: Octaviano Driscoll Measurements Intervals [place] Rate: 91 P: -8 PA: 180 QRS: -12 QRSD: 118 T: 89 QT: 366 QTc: 458 Interpretive Statements SINUS RHYTHM LEFTWARD AXIS LOW LIMB LEAD VOLTAGE T ABNORMALITY IN HIGH LATERAL LEADS Electronically Signed On 10-28-2021 19:28:50 REGULATORY CONSULTANT by Octaviano Driscoll
[2021-10-27 21:36] LABS: CALCIUM 8.1 mg/dL (8.5-10.1); CREATININE 0.9 mg/dL (0.6-1.0); GFR 62.5; POTASSIUM 4.8 mmol/L (3.5-5.1)
--- NOTE | 2021-10-27 21:36 | RAD ---
Exam: Chest one view INDICATION: Shortness of breath TECHNIQUE: Frontal view of the chest Comparisons: 08/15/2021 FINDINGS: AICD with leads remaining the right heart. There is a right anterior chest wall port with tip in the SVC. Heart is mildly enlarged. Pulmonary vessels are within normal limits. The lung and pleural spaces are clear. IMPRESSION: No acute pulmonary process. Electronically signed by: Alejandro Conde MD (10/27/2021 9:34 PM) [facility]
[2021-10-27 21:42] LABS: ALBUMIN 1.9 g/dL (3.4-5.0); ALBUMIN/GLOBULIN RATIO 0.4 (1.0-1.7); MAGNESIUM 1.5 mg/dL (1.8-2.4); TOTAL BILIRUBIN 0.3 mg/dL (0.2-1.0); TOTAL PROTEIN 6.7 g/dL (6.4-8.2)
[2021-10-27 21:47] LABS: INFLUENZA A PATIENT NEGATIVE (NEGATIVE); INFLUENZA B PATIENT NEGATIVE (NEGATIVE)
[2021-10-28] MEDS ORDERED: ONDANSETRON PF 4 MG/2 ML VIAL. IVP PRN (00:15)
[2021-10-28] MEDS ORDERED: MORPHINE SULFATE 2 MG/ML INJ. IVP PRN (00:15)
[2021-10-28 03:00] VITALS: BP 97/43
[2021-10-28] MEDS ORDERED: ALBUTEROL SULFATE 8GM INHALER. INH PRN (04:01)
[2021-10-28 07:00] VITALS: BP 91/45
[2021-10-28] MEDS ORDERED: IPRATRPIUM/ALBUTEROL 0.5/2.5MG 3 ML NEBU. NEB SCH (08:00)
--- NOTE | 2021-10-28 09:01 | PDOC1 ---
History and Physical Date of Service: DOS: DATE: 10/28/21 TIME: 08:55 Chief Complaint: Chief Complain: Shortness of breath History of Present Illness: HPI: History obtained from discussion with the ED physician and chart review: 66 year old female with a history of diabetes type 2, hypertension, high cholesterol, COPD, oxygen dependent at 3 L continuously, CHF, CAD, who presents the ED today to be evaluated for cough and shortness of breath that has been going on for 3 days. Patient states she has used her breathing treatments prior to coming to the ED. Denies any fever. Denies any chest pain. Past Medical/Surgical History: PMH/PSH: Past Medical History: CAD, CHF, COPD, Diabetes-Type II, High Cholesterol, Hypertension, Hypothyroid, 2 L O2 dependant Past Surgical History: Cholecystectomy, , Hysterectomy, Knee Repl acement, Pacemaker, left shoulder; pacemaker/defibrillator, R lung bx Smoking Status: Former Smoker Alcohol Use: None Drug Use: None Allergies: Allergies: Coded Allergies: ibuprofen (Verified Allergy, Severe, Swelling, 09/30/21) naproxen (Verified Allergy, Severe, Shortness of Air, 09/30/21) tolerates asa piperacillin (Verified Allergy, Severe, Swelling, 09/30/21) Tolerated cefepime tazobactam (Verified Allergy, Severe, Swelling, 09/30/21) fentanyl (Verified Adverse Reaction, Severe, agitation, 09/30/21) violent behavior Family History: Family History: GA, COPD, Alzheimer's, CHF, breast cancer Social History: Social History: Smoking Status: Former Smoker Alcohol Use: None Drug Use: None Current Medications: Current Medications Current Medications Dexamethasone Sodium Phosphate (Decadron) 10 mg 1X ONCE IV Last administered on 10/27/21at 22:07; Start 10/27/21 at 21:00; Stop 10/27/21 at 21:01; Status DC Ondansetron HCl (Zofran) 4 mg PRN Q8HRS PRN IVP NAUSEA/VOMITING; Start 10/28/21 at 00:15; Stop 10/29/21 at 00:14 Morphine Sulfate (Morphine Sulfate) 2 mg PRN Q2HR PRN IVP PAIN; Start 10/28/21 at 00:15; Stop 10/29/21 at 00:14 Acetaminophen (Tylenol) 650 mg PRN Q4HRS PRN PO FEVER > 100.3'F; Start 10/28/21 at 00:15; Stop 10/29/21 at 00:14 Albuterol/ Ipratropium (Duoneb) 3 ml RTQID NEB ; Start 10/28/21 at 08:00; Stop 10/29/21 at 07:59 Albuterol Sulfate (Ventolin Hfa) 2 puff PRN QID PRN INH SOA; Start 10/28/21 at 04:01 Active Scripts Active Doxycycline Hyclate 100 Mg Capsule 1 Cap PO BID Medrol (Methylprednisolone) 4 Mg Tab.ds.pk 1 Pkg PO UD Entresto 24 mg-26 mg Tablet (Sacubitril/Valsartan) 1 Each Tablet 1 Each PO BID 30 Days Duoneb 0.5-3(2.5) Mg/3 Ml (Albuterol/Ipratropium) 3 Ml Ampul.neb 3 Ml NEB Q4HRS 14 Days Reported Ferrous Sulfate 325 Mg Tablet 1 Tab PO DAILY Sucralfate 1 Gm Tablet 1 Tab PO QID Clopidogrel (Clopidogrel Bisulfate) 75 Mg Tablet 1 Tab PO DAILY Methocarbamol 500 Mg Tablet 1,000 Mg PO PRN BID PRN Spironolactone 25 Mg Tablet 25 Mg PO DAILY Metoprolol Succinate ( Xl ) (Metoprolol Succinate) 25 Mg Tab.er.24h 25 Mg PO DAILY Voltaren Arthritis Pain (Diclofenac Sodium) 20 Gm Gel..gram. 20 Gm TP PRN PRN Gabapentin (Gabapentin) 100 Mg Capsule 100 Mg PO TID Alendronate Sodium 70 Mg Tablet 1 Tab PO WEEKLY Allopurinol 300 Mg Tablet 1 Tab PO DAILY Trelegy Ellipta 100-62.5-25 (Fluticasone/Umeclidin/Vilanter) 1 Each Blst.w.dev 1 Each IH DAILY Prilosec Otc (Omeprazole Magnesium) 20 Mg Tablet.dr 40 Mg PO DAILY K-Tab ER (Potassium Chloride) 20 Meq Tablet.er 20 Meq PO DAILY Montelukast Sodium Tablet (Montelukast Sodium) 10 Mg Tablet 10 Mg PO HS Levocetirizine Dihydrochloride 5 Mg Tablet 5 Mg PO DAILY Amitriptyline Hcl 25 Mg Tablet 25 Mg PO QHS Vitamin D3 (Cholecalciferol (Vitamin D3)) 1,000 Unit Tablet 1 Tab PO DAILY Torsemide 20 Mg Tablet 2 Tab PO DAILY Daliresp (Roflumilast) 500 Mcg Tablet 1 Tab PO DAILY Atorvastatin Calcium 20 Mg Tablet 20 Mg PO HS Requip (Ropinirole Hcl) 1 Mg Tablet 3 Tab PO QHS Proair Hfa Inhaler (Albuterol Sulfate) 8.5 Gm Hfa.aer.ad 1 Puff INH PRN Q6HRS PRN Levothyroxine Sodium 50 Mcg Tablet 1 Tab PO DAILY ROS: Review of Systems Review of System REVIEW OF SYSTEMS: GENERAL: Denies weakness SKIN: No bruising, hair changes or rashes. EYES: No blurred, double or loss of vision. NOSE AND THROAT: No history of nosebleeds, hoarseness or sore throat. HEART: No history of palpitations, chest pain or shortness of breath on exertion. LUNGS: Denies cough, hemoptysis, wheezing or shortness of breath. GASTROINTESTINAL: Denies changes in appetite, nausea, vomiting, diarrhea or constipation. GENITOURINARY: No history of frequency, urgency, hesitancy or nocturia. NEUROLOGIC: Denies history of numbness, tingling, or tremor. PSYCHIATRIC: No history of panic, anxiety or depression. ENDOCRINE: No history of heat or cold intolerance, polyuria or polydipsia. EXTREMITIES: Denies joint pain, pain on walking or stiffness. Physical Exam: Vital Signs: Vital Signs Date Time Temp Pulse Resp B/P (MAP) Pulse Ox O2 Delivery O2 Flow Rate FiO2 10/28/21 07:00 97.7 85 16 91/45 (60) 100 Nasal Cannula 3.0 97.7 Physcial Exam: GEN: No apparent distress. Alert and oriented HEENT: Normal cephalic, atraumatic, external auditory canals are patent EYES: Extraocular muscles are intact, pupil are equally round and reactive to light and accommodation MUSCULOSKELETAL: Well developed , well nourished, good range of motion ENDOCRINE: No thyromegaly was palpated LYMPHATICS: No cervical chain or axillary nodes were noted HEMATOPOIETIC: No bruising NECK: Supple, no JVD, no thyromegaly was noted LUNGS: Clear to auscultation in all lung connell without rhonchi or wheezing HEART: RRR, S!, S2 present. Peripheral pulses intact, no obvious murmurs noted ABDOMEN: Soft, nontender. Positive bowel sounds, no organomegaly, normal bowel sounds EXTREMITIES: Without clubbing, cyanosis, or edema. Pedal pulses intact. Negative Homans sign NEUROLOGIC: Normal speech and tone. A&O x 3, moves all extremities, no obvious focal deficits PSYCHIATRIC: Normal affect, normal mood. Stable SKIN: No ulcerations or rashes, good skin turgor, no jaundice VASCULAR: Good capillary refill, neurovascular bundle appears to be intact Labs: Labs: Laboratory Tests Test 10/27/21 21:14 10/27/21 21:16 10/27/21 23:49 10/28/21 02:35 White Blood Count 6.4 x10^3/uL (4.0-11.0) Red Blood Count 2.65 x10^6/uL (3.50-5.40) Hemoglobin 7.5 g/dL (12.0-15.5) Hematocrit 23.6 % (36.0-47.0) Mean Corpuscular Volume 89 fL (79-100) Mean Corpuscular Hemoglobin 28 pg (25-35) Mean Corpuscular Hemoglobin Concent 32 g/dL (31-37) Red Cell Distribution Width 18.2 % (11.5-14.5) Platelet Count 330 x10^3/uL (140-400) Neutrophils (%) (Auto) 84 % (31-73) Lymphocytes (%) (Auto) 9 % (24-48) Monocytes (%) (Auto) 6 % (0-9) Eosinophils (%) (Auto) 1 % (0-3) Basophils (%) (Auto) 0 % (0-3) Neutrophils # (Auto) 5.4 x10^3/uL (1.8-7.7) Lymphocytes # (Auto) 0.6 x10^3/uL (1.0-4.8) Monocytes # (Auto) 0.4 x10^3/uL (0.0-1.1) Eosinophils # (Auto) 0.0 x10^3/uL (0.0-0.7) Basophils # (Auto) 0.0 x10^3/uL (0.0-0.2) Sodium Level 134 mmol/L (136-145) Potassium Level 4.8 mmol/L (3.5-5.1) Chloride Level 101 mmol/L (98-107) Carbon Dioxide Level 31 mmol/L (21-32) Anion Gap 2 (6-14) Blood Urea Nitrogen 11 mg/dL (7-20) Creatinine 0.9 mg/dL (0.6-1.0) Estimated GFR (Cockcroft-Gault) 62.5 BUN/Creatinine Ratio 12 (6-20) Glucose Level 93 mg/dL (70-99) Calcium Level 8.1 mg/dL (8.5-10.1) Magnesium Level 1.5 mg/dL (1.8-2.4) Total Bilirubin 0.3 mg/dL (0.2-1.0) Aspartate Amino Transf (AST/SGOT) 25 U/L (15-37) Alanine Aminotransferase (ALT/SGPT) 13 U/L (14-59) Alkaline Phosphatase 125 U/L (46-116) Troponin I High Sensitivity 16 ng/L (4-50) 16 ng/L (4-50) 17 ng/L (4-50) CN-Esr-S-Type Natriuretic Peptide 1940 pg/mL (0-124) Total Protein 6.7 g/dL (6.4-8.2) Albumin 1.9 g/dL (3.4-5.0) Albumin/Globulin Ratio 0.4 (1.0-1.7) Influenza Type A Antigen Negative (NEGATIVE) Influenza Type B Antigen Negative (NEGATIVE) SARS-CoV-2 Antigen (Rapid) Negative (NEGATIVE) Laboratory Tests Test 10/27/21 21:14 10/27/21 21:16 10/27/21 23:49 10/28/21 02:35 White Blood Count 6.4 x10^3/uL (4.0-11.0) Red Blood Count 2.65 x10^6/uL (3.50-5.40) Hemoglobin 7.5 g/dL (12.0-15.5) Hematocrit 23.6 % (36.0-47.0) Mean Corpuscular Volume 89 fL (79-100) Mean Corpuscular Hemoglobin 28 pg (25-35) Mean Corpuscular Hemoglobin Concent 32 g/dL (31-37) Red Cell Distribution Width 18.2 % (11.5-14.5) Platelet Count 330 x10^3/uL (140-400) Neutrophils (%) (Auto) 84 % (31-73) Lymphocytes (%) (Auto) 9 % (24-48) Monocytes (%) (Auto) 6 % (0-9) Eosinophils (%) (Auto) 1 % (0-3) Basophils (%) (Auto) 0 % (0-3) Neutrophils # (Auto) 5.4 x10^3/uL (1.8-7.7) Lymphocytes # (Auto) 0.6 x10^3/uL (1.0-4.8) Monocytes # (Auto) 0.4 x10^3/uL (0.0-1.1) Eosinophils # (Auto) 0.0 x10^3/uL (0.0-0.7) Basophils # (Auto) 0.0 x10^3/uL (0.0-0.2) Sodium Level 134 mmol/L (136-145) Potassium Level 4.8 mmol/L (3.5-5.1) Chloride Level 101 mmol/L (98-107) Carbon Dioxide Level 31 mmol/L (21-32) Anion Gap 2 (6-14) Blood Urea Nitrogen 11 mg/dL (7-20) Creatinine 0.9 mg/dL (0.6-1.0) Estimated GFR (Cockcroft-Gault) 62.5 BUN/Creatinine Ratio 12 (6-20) Glucose Level 93 mg/dL (70-99) Calcium Level 8.1 mg/dL (8.5-10.1) Magnesium Level 1.5 mg/dL (1.8-2.4) Total Bilirubin 0.3 mg/dL (0.2-1.0) Aspartate Amino Transf (AST/SGOT) 25 U/L (15-37) Alanine Aminotransferase (ALT/SGPT) 13 U/L (14-59) Alkaline Phosphatase 125 U/L (46-116) Troponin I High Sensitivity 16 ng/L (4-50) 16 ng/L (4-50) 17 ng/L (4-50) OV-Fhc-F-Type Natriuretic Peptide 1940 pg/mL (0-124) Total Protein 6.7 g/dL (6.4-8.2) Albumin 1.9 g/dL (3.4-5.0) Albumin/Globulin Ratio 0.4 (1.0-1.7) Influenza Type A Antigen Negative (NEGATIVE) Influenza Type B Antigen Negative (NEGATIVE) SARS-CoV-2 Antigen (Rapid) Negative (NEGATIVE) Images: Images PROCEDURE: PORTABLE CHEST 1V Exam: Chest one view INDICATION: Shortness of breath TECHNIQUE: Frontal view of the chest Comparisons: 08/15/2021 FINDINGS: AICD with leads remaining the right heart. There is a right anterior chest wall port with tip in the SVC. Heart is mildly enlarged. Pulmonary vessels are within normal limits. The lung and pleural spaces are clear. IMPRESSION: No acute pulmonary process. Assessment/Plan Assessment/Plan Acute hypoxic respiratory failure Normocytic anemia of unclear etiology, likely related to chronic inflammatory disease Isolated elevated alkaline phosphatase Home oxygen therapy at 3 L currently at baseline History of CAD asymptomatic History of CHF compensated Diabetes mellitus type 2 insulin requiring Essential hypertension hyperlipidemia Acquired hypothyroidism History of AICD History of diastolic CHF, grade 1 abnormal relaxation pattern Hx left shoulder surgery, Hx tobacco abuse (quit 3 years ago) Admit to hospitalist service for further management Pulmonology consult Pending ferritin levels Pending GGT Trial of IV steroids Duo nebs as needed Lovenox for DVT prophylaxis Protonix GI prophylaxis ADA diet CODE STATUS full Discussed with RN and SW Disposition inpatient management as above DPOA: Justifications for Admission Other Justification COPD exacerbation BRAYAN RAYMOND MD Oct 28, 2021 09:01
[2021-10-28] MEDS ORDERED: MAGNESIUM SULFATE 2GM 50 ML IV ONE (10:00)
[2021-10-28 10:02] LABS: GAMMA GLUTAMYL TRANSPEPTIDASE 27 U/L (5-55)
[2021-10-28 11:00] VITALS: BP 94/39
[2021-10-28] MEDS: ACETAMINOPHEN 325 MG TABLET. PO PRN ×2 (11:02→22:52)
--- NOTE | 2021-10-28 13:14 | NUR ---
SW following. Discussed with RN, pt from home, uses oxygen at home, cardiac diet, Flu and COVID-19 negative. Pt typically discharges home with [facility]. SW will continue to follow.
[2021-10-28] MEDS ORDERED: METHOCARBAMOL 500 MG TABLET PO PRN (14:00)
[2021-10-28 15:00] VITALS: BP 101/44
[2021-10-28] MEDS: ROFLUMILAST 500 MCG TABLET. PO SCH (15:21)
[2021-10-28] MEDS: GABAPENTIN 100 MG CAPSULE. PO SCH ×2 (15:21→21:37)
[2021-10-28] MEDS: TORSEMIDE 20 MG TABLET. PO SCH (15:21)
[2021-10-28] MEDS: ALLOPURINOL 300 MG TABLET. PO SCH (15:22)
[2021-10-28] MEDS: CLOPIDOGREL BISULFATE 75 MG TABLET PO SCH (15:22)
[2021-10-28] MEDS: LEVOTHYROXINE 50 MCG TABLET PO SCH (15:22)
[2021-10-28] MEDS: PANTOPRAZOLE 40 MG TABLET.DR. PO SCH (15:22)
[2021-10-28] MEDS: methylPREDNISolone SOD SUCC PF 40 MG/ML VIAL. IV SCH ×2 (15:23→21:36)
--- NOTE | 2021-10-28 16:30 | NUR ---
pt transferred to 412. pt transported via wheelchair with all belongings to 412. report given to Jovana HUGHES.
[2021-10-28] MEDS: IPRATRPIUM/ALBUTEROL 0.5/2.5MG 3 ML NEBU. NEB SCH ×2 (16:49→20:00)
[2021-10-28 19:00] VITALS: BP 98/43
[2021-10-28] MEDS: ATORVASTATIN CALCIUM 20 MG TABLET PO SCH (21:37)
[2021-10-28] MEDS: MONTELUKAST SODIUM 10 MG TABLET. PO SCH (21:37)
[2021-10-28] MEDS: rOPINIRole 1 MG TABLET. PO SCH (21:37)
[2021-10-28] MEDS: AMITRIPTYLINE HCL 25 MG TABLET. PO SCH (21:37)
[2021-10-28 23:00] VITALS: BP 107/50
[2021-10-29] VITALS (13 sets, daily range): BP systolic 91–115; BP diastolic 37–52
[2021-10-29] MEDS: IPRATRPIUM/ALBUTEROL 0.5/2.5MG 3 ML NEBU. NEB SCH ×7 (00:03→21:31)
[2021-10-29] MEDS: methylPREDNISolone SOD SUCC PF 40 MG/ML VIAL. IV SCH ×3 (05:37→22:17)
[2021-10-29] MEDS: LEVOTHYROXINE 50 MCG TABLET PO SCH (05:37)
[2021-10-29 07:29] LABS: ALBUMIN 1.8 g/dL (3.4-5.0); ALBUMIN/GLOBULIN RATIO 0.4 (1.0-1.7); CALCIUM 9.2 mg/dL (8.5-10.1); CREATININE 1.1 mg/dL (0.6-1.0); GFR 49.5; POTASSIUM 4.1 mmol/L (3.5-5.1); TOTAL BILIRUBIN 0.2 mg/dL (0.2-1.0); TOTAL PROTEIN 6.7 g/dL (6.4-8.2)
[2021-10-29 07:34] LABS: BASO % 0 % (0-3); EOS % 0 % (0-3); HEMATOCRIT 21.6 % (36.0-47.0); LYMPH # 0.4 x10^3/uL (1.0-4.8); LYMPH % 6 % (24-48); MEAN CORPUSCULAR HEMOGLOBIN 28 pg (25-35); MEAN CORPUSCULAR HGB CONC 32 g/dL (31-37); MEAN CORPUSCULAR VOLUME 89 fL (79-100); MONO # 0.3 x10^3/uL (0.0-1.1); MONO % 5 % (0-9); NEUT # 5.7 x10^3/uL (1.8-7.7); NEUT % 90 % (31-73); PLATELET COUNT 323 x10^3/uL (140-400); RED BLOOD COUNT 2.43 x10^6/uL (3.50-5.40); RED CELL DISTRIBUTION WIDTH 17.8 % (11.5-14.5); WHITE BLOOD COUNT 6.4 x10^3/uL (4.0-11.0)
[2021-10-29 07:48] LABS: HEMOGLOBIN 6.8 g/dL (12.0-15.5)
[2021-10-29] MEDS: ROFLUMILAST 500 MCG TABLET. PO SCH (08:25)
[2021-10-29] MEDS: TORSEMIDE 20 MG TABLET. PO SCH (08:25)
[2021-10-29] MEDS: ALLOPURINOL 300 MG TABLET. PO SCH (08:26)
[2021-10-29] MEDS: PANTOPRAZOLE 40 MG TABLET.DR. PO SCH (08:26)
[2021-10-29] MEDS: GABAPENTIN 100 MG CAPSULE. PO SCH ×3 (08:26→21:14)
[2021-10-29] MEDS: CLOPIDOGREL BISULFATE 75 MG TABLET PO SCH (08:26)
--- NOTE | 2021-10-29 10:41 | PDOC ---
[employer] PROGRESS NOTE Date of Service DOS: DATE: 10/29/21 TIME: 10:40 Chief Complaint Chief Complaint shortness of breath, history of diabetes type 2, hypertension, high cholesterol, COPD, oxygen dependent at 3 L continuously, CHF, CAD History of Present Illness History of Present Illness 10/29/21 Patient seen and examined Chart reviewed Discussed with RN Hemoglobin 6.8 Patient is short of breath with some audible wheezing Patient laying in bed comfortably in n apparent distress Patient endorsed an occasional black tarry stool. 66 year old female with a history of diabetes type 2, hypertension, high cholesterol, COPD, oxygen dependent at 3 L continuously, CHF, CAD, who presents the ED yesterday to be evaluated for cough and shortness of breath that has been going on for 3 days. Patient states she used her breathing treatments prior to coming to the ED. Vitals/I&O Vitals/I&O: Vital Signs Date Time Temp Pulse Resp B/P (MAP) Pulse Ox O2 Delivery O2 Flow Rate FiO2 10/29/21 07:50 Nasal Cannula 3.0 10/29/21 07:00 98.1 102 18 91/52 (65) 98 98.1 I & O 10/28/21 10/28/21 10/29/21 15:00 23:00 07:00 Intake Total 100 ml 0 ml Balance 100 ml 0 ml Physical Exam General: Alert, Oriented X3, Cooperative Heart: Regular rate Lungs: Wheezing, Crackles Extremities: No edema Labs Labs: Laboratory Tests Test 10/29/21 05:30 White Blood Count 6.4 x10^3/uL (4.0-11.0) Red Blood Count 2.43 x10^6/uL (3.50-5.40) Hemoglobin 6.8 g/dL (12.0-15.5) Hematocrit 21.6 % (36.0-47.0) Mean Corpuscular Volume 89 fL (79-100) Mean Corpuscular Hemoglobin 28 pg (25-35) Mean Corpuscular Hemoglobin Concent 32 g/dL (31-37) Red Cell Distribution Width 17.8 % (11.5-14.5) Platelet Count 323 x10^3/uL (140-400) Neutrophils (%) (Auto) 90 % (31-73) Lymphocytes (%) (Auto) 6 % (24-48) Monocytes (%) (Auto) 5 % (0-9) Eosinophils (%) (Auto) 0 % (0-3) Basophils (%) (Auto) 0 % (0-3) Neutrophils # (Auto) 5.7 x10^3/uL (1.8-7.7) Lymphocytes # (Auto) 0.4 x10^3/uL (1.0-4.8) Monocytes # (Auto) 0.3 x10^3/uL (0.0-1.1) Eosinophils # (Auto) 0.0 x10^3/uL (0.0-0.7) Basophils # (Auto) 0.0 x10^3/uL (0.0-0.2) Sodium Level 138 mmol/L (136-145) Potassium Level 4.1 mmol/L (3.5-5.1) Chloride Level 99 mmol/L (98-107) Carbon Dioxide Level 34 mmol/L (21-32) Anion Gap 5 (6-14) Blood Urea Nitrogen 17 mg/dL (7-20) Creatinine 1.1 mg/dL (0.6-1.0) Estimated GFR (Cockcroft-Gault) 49.5 BUN/Creatinine Ratio 15 (6-20) Glucose Level 160 mg/dL (70-99) Calcium Level 9.2 mg/dL (8.5-10.1) Total Bilirubin 0.2 mg/dL (0.2-1.0) Aspartate Amino Transf (AST/SGOT) 16 U/L (15-37) Alanine Aminotransferase (ALT/SGPT) 13 U/L (14-59) Alkaline Phosphatase 111 U/L (46-116) Total Protein 6.7 g/dL (6.4-8.2) Albumin 1.8 g/dL (3.4-5.0) Albumin/Globulin Ratio 0.4 (1.0-1.7) Review of Systems Review of Systems: Patient affirms shortness of air and wheezing. Denies lower extremity swelling. Assessment and Plan Assessmemt and Plan ASSESSMENT: Acute hypoxic respiratory failure Normocytic anemia of unclear etiology Home oxygen therapy at 3 L currently at baseline History of CAD asymptomatic History of CHF compensated Diabetes mellitus type 2 insulin requiring Essential hypertension hyperlipidemia Acquired hypothyroidism History of AICD History of diastolic CHF, grade 1 abnormal relaxation pattern Hx left shoulder surgery, Hx tobacco abuse (quit 3 years ago) PLAN: Transfusion 1 unit RBCs Appreciate subspecialty recommendations Home medication reconciliation Trial of IV steroids Duo nebs as needed Lovenox for DVT prophylaxis Protonix GI prophylaxis ADA diet CODE STATUS full Discussed with RN and SW Discharge disposition pending DPOA: Comment Review of Relevant I have reviewed the following items jon (where applicable) has been applied. Medications: Current Medications Medications (Trade) Dose Ordered Sig/Keshav Route PRN Reason Start Time Stop Time Status Last Admin Dose Admin Allopurinol (Zyloprim) 300 mg DAILY PO 10/28/21 15:00 10/29/21 08:26 Amitriptyline HCl (Elavil) 25 mg QHS PO 10/28/21 21:00 10/28/21 21:37 Atorvastatin Calcium (Lipitor) 20 mg QHS PO 10/28/21 21:00 10/28/21 21:37 Clopidogrel Bisulfate (Plavix) 75 mg DAILY PO 10/28/21 15:00 10/29/21 08:26 Gabapentin (Neurontin) 100 mg TID PO 10/28/21 14:00 10/29/21 08:26 Albuterol/ Ipratropium (Duoneb) 3 ml Q4HRS NEB 10/28/21 16:00 10/28/21 20:00 Levothyroxine Sodium (Synthroid) 50 mcg DAILY06 PO 10/28/21 15:00 10/29/21 05:37 Montelukast Sodium (Singulair) 10 mg QHS PO 10/28/21 21:00 10/28/21 21:37 Roflumilast (Daliresp) 500 mcg DAILY PO 10/28/21 15:00 10/29/21 08:25 Ropinirole HCl (Requip) 3 mg QHS PO 10/28/21 21:00 10/28/21 21:37 Torsemide (Demadex) 40 mg DAILY PO 10/28/21 15:00 10/29/21 08:25 Pantoprazole Sodium (Protonix) 40 mg DAILYAC PO 10/28/21 15:00 10/29/21 08:26 Methylprednisolone Sodium Succinate (SOLU-Medrol 40MG VIAL) 40 mg Q8HRS IV 10/28/21 14:30 10/29/21 05:37 Justifications for Admission Other Justification COPD exacerbation JULIANA ERNST III DO Oct 29, 2021 10:41
[2021-10-29] MEDS ORDERED: DICLOFENAC SODIUM 1% TOPICAL GEL 100GM TUBE. TP PRN (11:15)
[2021-10-29] MEDS ORDERED: ALBUTEROL SULFATE 2.5 MG/3 ML NEBU. INH PRN (11:15)
[2021-10-29] MEDS: SPIRONOLACTONE 25 MG TABLET PO SCH (12:00)
[2021-10-29] MEDS: ASPIRIN CHEWABLE 81 MG TABLET. PO SCH (12:09)
[2021-10-29] MEDS: CHOLECALCIFEROL (VITAMIN D3) 1,000 UNIT TABLET PO SCH (12:09)
[2021-10-29] MEDS: FERROUS SULFATE 325 MG TABLET. PO SCH (12:09)
[2021-10-29] MEDS: POTASSIUM CHLORIDE 20 MEQ TABLET.ER. PO SCH (12:09)
[2021-10-29] MEDS: METOPROLOL SUCC 24HR ER 25 MG TAB.ER.24H. PO SCH (12:13)
[2021-10-29] MEDS: FLUTICASONE/VILANTEROL 100/25 INHALER. INH SCH (12:16)
--- NOTE | 2021-10-29 15:52 | PDOC ---
PULMONARY PROGRESS NOTES DATE: 10/29/21 TIME: 15:51 Vitals Vital Signs Date Time Temp Pulse Resp B/P (MAP) Pulse Ox O2 Delivery O2 Flow Rate FiO2 10/29/21 15:00 97.0 107 20 105/45 (65) 96 Nasal Cannula 3.0 97.0 General: Alert, No acute distress HEENT: Other Lungs: Wheezing, Crackles Cardiovascular: S1, S2 Abdomen: Soft, Non-tender Extremities: No Edema Labs Laboratory Tests Test 10/27/21 21:14 10/27/21 21:16 10/27/21 23:49 10/28/21 02:35 White Blood Count 6.4 x10^3/uL (4.0-11.0) Red Blood Count 2.65 x10^6/uL (3.50-5.40) Hemoglobin 7.5 g/dL (12.0-15.5) Hematocrit 23.6 % (36.0-47.0) Mean Corpuscular Volume 89 fL (79-100) Mean Corpuscular Hemoglobin 28 pg (25-35) Mean Corpuscular Hemoglobin Concent 32 g/dL (31-37) Red Cell Distribution Width 18.2 % (11.5-14.5) Platelet Count 330 x10^3/uL (140-400) Neutrophils (%) (Auto) 84 % (31-73) Lymphocytes (%) (Auto) 9 % (24-48) Monocytes (%) (Auto) 6 % (0-9) Eosinophils (%) (Auto) 1 % (0-3) Basophils (%) (Auto) 0 % (0-3) Neutrophils # (Auto) 5.4 x10^3/uL (1.8-7.7) Lymphocytes # (Auto) 0.6 x10^3/uL (1.0-4.8) Monocytes # (Auto) 0.4 x10^3/uL (0.0-1.1) Eosinophils # (Auto) 0.0 x10^3/uL (0.0-0.7) Basophils # (Auto) 0.0 x10^3/uL (0.0-0.2) Sodium Level 134 mmol/L (136-145) Potassium Level 4.8 mmol/L (3.5-5.1) Chloride Level 101 mmol/L (98-107) Carbon Dioxide Level 31 mmol/L (21-32) Anion Gap 2 (6-14) Blood Urea Nitrogen 11 mg/dL (7-20) Creatinine 0.9 mg/dL (0.6-1.0) Estimated GFR (Cockcroft-Gault) 62.5 BUN/Creatinine Ratio 12 (6-20) Glucose Level 93 mg/dL (70-99) Calcium Level 8.1 mg/dL (8.5-10.1) Magnesium Level 1.5 mg/dL (1.8-2.4) Total Bilirubin 0.3 mg/dL (0.2-1.0) Aspartate Amino Transf (AST/SGOT) 25 U/L (15-37) Alanine Aminotransferase (ALT/SGPT) 13 U/L (14-59) Alkaline Phosphatase 125 U/L (46-116) Troponin I High Sensitivity 16 ng/L (4-50) 16 ng/L (4-50) 17 ng/L (4-50) NZ-Cxc-S-Type Natriuretic Peptide 1940 pg/mL (0-124) Total Protein 6.7 g/dL (6.4-8.2) Albumin 1.9 g/dL (3.4-5.0) Albumin/Globulin Ratio 0.4 (1.0-1.7) Influenza Type A Antigen Negative (NEGATIVE) Influenza Type B Antigen Negative (NEGATIVE) SARS-CoV-2 RNA (GUDELIA) Negative (Negative) SARS-CoV-2 Antigen (Rapid) Negative (NEGATIVE) Ferritin 1914 ng/mL (8-252) Gamma Glutamyl Transpeptidase 27 U/L (5-55) Test 10/29/21 05:30 White Blood Count 6.4 x10^3/uL (4.0-11.0) Red Blood Count 2.43 x10^6/uL (3.50-5.40) Hemoglobin 6.8 g/dL (12.0-15.5) Hematocrit 21.6 % (36.0-47.0) Mean Corpuscular Volume 89 fL (79-100) Mean Corpuscular Hemoglobin 28 pg (25-35) Mean Corpuscular Hemoglobin Concent 32 g/dL (31-37) Red Cell Distribution Width 17.8 % (11.5-14.5) Platelet Count 323 x10^3/uL (140-400) Neutrophils (%) (Auto) 90 % (31-73) Lymphocytes (%) (Auto) 6 % (24-48) Monocytes (%) (Auto) 5 % (0-9) Eosinophils (%) (Auto) 0 % (0-3) Basophils (%) (Auto) 0 % (0-3) Neutrophils # (Auto) 5.7 x10^3/uL (1.8-7.7) Lymphocytes # (Auto) 0.4 x10^3/uL (1.0-4.8) Monocytes # (Auto) 0.3 x10^3/uL (0.0-1.1) Eosinophils # (Auto) 0.0 x10^3/uL (0.0-0.7) Basophils # (Auto) 0.0 x10^3/uL (0.0-0.2) Sodium Level 138 mmol/L (136-145) Potassium Level 4.1 mmol/L (3.5-5.1) Chloride Level 99 mmol/L (98-107) Carbon Dioxide Level 34 mmol/L (21-32) Anion Gap 5 (6-14) Blood Urea Nitrogen 17 mg/dL (7-20) Creatinine 1.1 mg/dL (0.6-1.0) Estimated GFR (Cockcroft-Gault) 49.5 BUN/Creatinine Ratio 15 (6-20) Glucose Level 160 mg/dL (70-99) Calcium Level 9.2 mg/dL (8.5-10.1) Total Bilirubin 0.2 mg/dL (0.2-1.0) Aspartate Amino Transf (AST/SGOT) 16 U/L (15-37) Alanine Aminotransferase (ALT/SGPT) 13 U/L (14-59) Alkaline Phosphatase 111 U/L (46-116) Total Protein 6.7 g/dL (6.4-8.2) Albumin 1.8 g/dL (3.4-5.0) Albumin/Globulin Ratio 0.4 (1.0-1.7) Laboratory Tests Test 10/29/21 05:30 White Blood Count 6.4 x10^3/uL (4.0-11.0) Red Blood Count 2.43 x10^6/uL (3.50-5.40) Hemoglobin 6.8 g/dL (12.0-15.5) Hematocrit 21.6 % (36.0-47.0) Mean Corpuscular Volume 89 fL (79-100) Mean Corpuscular Hemoglobin 28 pg (25-35) Mean Corpuscular Hemoglobin Concent 32 g/dL (31-37) Red Cell Distribution Width 17.8 % (11.5-14.5) Platelet Count 323 x10^3/uL (140-400) Neutrophils (%) (Auto) 90 % (31-73) Lymphocytes (%) (Auto) 6 % (24-48) Monocytes (%) (Auto) 5 % (0-9) Eosinophils (%) (Auto) 0 % (0-3) Basophils (%) (Auto) 0 % (0-3) Neutrophils # (Auto) 5.7 x10^3/uL (1.8-7.7) Lymphocytes # (Auto) 0.4 x10^3/uL (1.0-4.8) Monocytes # (Auto) 0.3 x10^3/uL (0.0-1.1) Eosinophils # (Auto) 0.0 x10^3/uL (0.0-0.7) Basophils # (Auto) 0.0 x10^3/uL (0.0-0.2) Sodium Level 138 mmol/L (136-145) Potassium Level 4.1 mmol/L (3.5-5.1) Chloride Level 99 mmol/L (98-107) Carbon Dioxide Level 34 mmol/L (21-32) Anion Gap 5 (6-14) Blood Urea Nitrogen 17 mg/dL (7-20) Creatinine 1.1 mg/dL (0.6-1.0) Estimated GFR (Cockcroft-Gault) 49.5 BUN/Creatinine Ratio 15 (6-20) Glucose Level 160 mg/dL (70-99) Calcium Level 9.2 mg/dL (8.5-10.1) Total Bilirubin 0.2 mg/dL (0.2-1.0) Aspartate Amino Transf (AST/SGOT) 16 U/L (15-37) Alanine Aminotransferase (ALT/SGPT) 13 U/L (14-59) Alkaline Phosphatase 111 U/L (46-116) Total Protein 6.7 g/dL (6.4-8.2) Albumin 1.8 g/dL (3.4-5.0) Albumin/Globulin Ratio 0.4 (1.0-1.7) Medications Active Scripts Medications Dose Route/Sig Max Daily Dose Days Date Category Doxycycline Hyclate 100 Mg Capsule 1 Cap PO BID 08/19/21 Rx Medrol (Methylprednisolone) 4 Mg Tab.ds.pk 1 Pkg PO UD 08/19/21 Rx Ferrous Sulfate 325 Mg Tablet 1 Tab PO DAILY 07/26/21 Reported Clopidogrel (Clopidogrel Bisulfate) 75 Mg Tablet 1 Tab PO DAILY 07/20/21 Reported Spironolactone 25 Mg Tablet 25 Mg PO DAILY 05/19/21 Reported Metoprolol Succinate ( Xl ) (Metoprolol Succinate) 25 Mg Tab.er.24h 25 Mg PO DAILY 05/19/21 Reported Voltaren Arthritis Pain (Diclofenac Sodium) 20 Gm Gel..gram. 20 Gm TP PRN PRN 05/19/21 Reported Entresto 24 mg-26 mg Tablet (Sacubitril/Valsartan) 1 Each Tablet 1 Each PO BID 30 11/19/20 Rx Gabapentin (Gabapentin) 100 Mg Capsule 100 Mg PO TID 10/18/20 Reported Alendronate Sodium 70 Mg Tablet 1 Tab PO WEEKLY 10/16/20 Reported Allopurinol 300 Mg Tablet 1 Tab PO DAILY 10/16/20 Reported Trelegy Ellipta 100-62.5-25 (Fluticasone/Umeclidin/Vilanter) 1 Each Blst.w.dev 1 Each IH DAILY 03/17/20 Reported Prilosec Otc (Omeprazole Magnesium) 20 Mg Tablet.dr 40 Mg PO DAILY 03/17/20 Reported Duoneb 0.5-3(2.5) Mg/3 Ml (Albuterol/Ipratropium) 3 Ml Ampul.neb 3 Ml NEB Q4HRS 14 10/22/19 Rx K-Tab ER (Potassium Chloride) 20 Meq Tablet.er 20 Meq PO DAILY 07/30/19 Reported Montelukast Sodium Tablet (Montelukast Sodium) 10 Mg Tablet 10 Mg PO HS 07/29/19 Reported Levocetirizine Dihydrochloride 5 Mg Tablet 5 Mg PO DAILY 07/29/19 Reported Amitriptyline Hcl 25 Mg Tablet 25 Mg PO QHS 07/29/19 Reported Vitamin D3 (Cholecalciferol (Vitamin D3)) 1,000 Unit Tablet 1 Tab PO DAILY 01/02/18 Reported Torsemide 20 Mg Tablet 2 Tab PO DAILY 01/02/18 Reported Daliresp (Roflumilast) 500 Mcg Tablet 1 Tab PO DAILY 09/23/17 Reported Atorvastatin Calcium 20 Mg Tablet 20 Mg PO HS 09/23/17 Reported Requip (Ropinirole Hcl) 1 Mg Tablet 3 Tab PO QHS 09/23/17 Reported Proair Hfa Inhaler (Albuterol Sulfate) 8.5 Gm Hfa.aer.ad 1 Puff INH PRN Q6HRS PRN 09/23/17 Reported Levothyroxine Sodium 50 Mcg Tablet 1 Tab PO DAILY 09/23/17 Reported Impression . FULL NOTE DICTATD AGREE WITH CURRENT RX LETICIA FORTUNE MD Oct 29, 2021 15:52
[2021-10-29] MEDS: AMITRIPTYLINE HCL 25 MG TABLET. PO SCH (21:13)
[2021-10-29] MEDS: ATORVASTATIN CALCIUM 20 MG TABLET PO SCH (21:13)
[2021-10-29] MEDS: rOPINIRole 1 MG TABLET. PO SCH (21:14)
[2021-10-29] MEDS: MONTELUKAST SODIUM 10 MG TABLET. PO SCH (21:14)
[2021-10-30 02:43] VITALS: BP 94/36
[2021-10-30] MEDS: IPRATRPIUM/ALBUTEROL 0.5/2.5MG 3 ML NEBU. NEB SCH ×6 (04:00→20:52)
[2021-10-30] MEDS: PANTOPRAZOLE 40 MG TABLET.DR. PO SCH (06:05)
[2021-10-30] MEDS: methylPREDNISolone SOD SUCC PF 40 MG/ML VIAL. IV SCH ×3 (06:05→21:14)
[2021-10-30] MEDS: LEVOTHYROXINE 50 MCG TABLET PO SCH (06:05)
[2021-10-30 07:00] VITALS: BP 92/42
--- NOTE | 2021-10-30 07:18 | CONS ---
DATE OF CONSULTATION: 10/29/2021 ATTENDING PHYSICIAN: Dr. Hector Abbasi. REASON FOR CONSULTATION: The patient is seen in pulmonary consultation at the request of Dr. Abbasi for increasing shortness of breath. HISTORY OF PRESENT ILLNESS: The patient is a 66-year-old with underlying COPD, vaccinated for COVID-19, presented with increasing shortness of breath, some wheezing. No chest pain or pressure. She normally is on 3 liters of oxygen supplementation. She had labs, hemoglobin was severely down at 6.8. Electrolytes were noted. She is currently undergoing transfusion. SARS-CoV-2 testing was negative. Chest x-ray was clear. The patient has had acute blood loss anemia in the past. She sees , the leasing professional. She has not had a bone marrow. PAST MEDICAL HISTORY: Chronic respiratory failure, COPD, type 2 diabetes, chronic heart failure, coronary artery disease, hypertension, hypothyroidism. PAST SURGICAL HISTORY: Multiple surgeries including cholecystectomy, , hysterectomy, knee surgery, previous lung biopsy. SOCIAL HISTORY: She is currently not smoking. ALLERGIES: FENTANYL, IBUPROFEN, NAPROSYN, PIPERACILLIN/TAZOBACTAM. REVIEW OF SYSTEMS: As indicated above, otherwise other systems were reviewed and negative. FAMILY HISTORY: Remarkable for Alzheimer dementia, chronic heart failure, breast cancer. PHYSICAL EXAMINATION: VITAL SIGNS: Stable since admission. She has been afebrile. O2 saturation greater than 92%. HEENT: Eyes: The sclerae were nonicteric. NECK: Jugular venous distention was not elevated. No lymphadenopathy. CHEST: Full expansion. LUNGS: Adequate flow, no wheezes. CARDIOVASCULAR: Regular rate and rhythm with S1, S2, no S3. ABDOMEN: Soft. EXTREMITIES: No clubbing, cyanosis or edema. IMAGING DATA: Chest x-ray reviewed as indicated above. IMPRESSION: 1. Acute exacerbation of chronic obstructive pulmonary disease. 2. Progressive dyspnea secondary to above and acute blood loss anemia. 3. Acute on chronic hypoxemic respiratory failure. 4. Compensated chronic diastolic heart failure. 5. Type 2 diabetes. 6. Essential hypertension. 7. Tobacco dependent, quit 3 years ago. PLAN: 1. Continue current support. 2. Transfuse to maintain hemoglobin above 7. 3. IV steroids. 4. No need for antibiotics. 5. The patient tested negative for SARS-CoV-2. She is also vaccinated. JOHANNA/DIXON/GIRISH DR: Delphine TID: [id number]
[2021-10-30 08:33] LABS: BASO % 0 % (0-3); EOS % 0 % (0-3); HEMATOCRIT 23.6 % (36.0-47.0); HEMOGLOBIN 7.8 g/dL (12.0-15.5); LYMPH # 0.3 x10^3/uL (1.0-4.8); LYMPH % 4 % (24-48); MEAN CORPUSCULAR HEMOGLOBIN 30 pg (25-35); MEAN CORPUSCULAR HGB CONC 33 g/dL (31-37); MEAN CORPUSCULAR VOLUME 90 fL (79-100); MONO # 0.2 x10^3/uL (0.0-1.1); MONO % 3 % (0-9); NEUT # 7.9 x10^3/uL (1.8-7.7); NEUT % 93 % (31-73); PLATELET COUNT 335 x10^3/uL (140-400); RED BLOOD COUNT 2.62 x10^6/uL (3.50-5.40); RED CELL DISTRIBUTION WIDTH 17.4 % (11.5-14.5); WHITE BLOOD COUNT 8.5 x10^3/uL (4.0-11.0)
[2021-10-30 08:44] LABS: CALCIUM 8.2 mg/dL (8.5-10.1); GFR 55.3; POTASSIUM 4.3 mmol/L (3.5-5.1)
[2021-10-30] MEDS: CHOLECALCIFEROL (VITAMIN D3) 1,000 UNIT TABLET PO SCH (09:03)
[2021-10-30] MEDS: ASPIRIN CHEWABLE 81 MG TABLET. PO SCH (09:03)
[2021-10-30] MEDS: GABAPENTIN 100 MG CAPSULE. PO SCH ×3 (09:03→21:14)
[2021-10-30] MEDS: ALLOPURINOL 300 MG TABLET. PO SCH (09:03)
[2021-10-30] MEDS: ACETAMINOPHEN 325 MG TABLET. PO PRN (09:03)
[2021-10-30] MEDS: CETIRIZINE HCL 10 MG TABLET. PO SCH (09:04)
[2021-10-30] MEDS: METOPROLOL SUCC 24HR ER 25 MG TAB.ER.24H. PO SCH (09:05)
[2021-10-30] MEDS: FERROUS SULFATE 325 MG TABLET. PO SCH (09:06)
[2021-10-30] MEDS: SPIRONOLACTONE 25 MG TABLET PO SCH (09:06)
[2021-10-30] MEDS: CLOPIDOGREL BISULFATE 75 MG TABLET PO SCH (09:06)
[2021-10-30] MEDS: POTASSIUM CHLORIDE 20 MEQ TABLET.ER. PO SCH (09:06)
[2021-10-30] MEDS: ROFLUMILAST 500 MCG TABLET. PO SCH (09:06)
[2021-10-30] MEDS: FLUTICASONE/VILANTEROL 100/25 INHALER. INH SCH (09:07)
[2021-10-30] MEDS: TORSEMIDE 20 MG TABLET. PO SCH (09:07)
[2021-10-30 09:46] LABS: % BANDS 3 % (0-9); % LYMPHS 4 % (24-48); % MONOS 2 % (0-10); % SEGS 91 % (35-66)
[2021-10-30 09:47] LABS: PLT ESTIMATE ADEQUATE (ADEQUATE)
--- NOTE | 2021-10-30 10:16 | PDOC ---
PULMONARY PROGRESS NOTES DATE: 10/30/21 TIME: 10:16 Subjective Patient sitting up in bed eating breakfast this morning Reports Headache and sore throat, she states it is from coughing Currently on 3L NC Vitals Vital Signs Date Time Temp Pulse Resp B/P (MAP) Pulse Ox O2 Delivery O2 Flow Rate FiO2 10/30/21 09:05 94 92/42 10/30/21 07:00 97.8 18 99 Nasal Cannula 3.0 97.8 ROS: No Nausea, No Chest Pain, No Increase Cough General: Alert, No acute distress HEENT: Other Lungs: Wheezing, Crackles Cardiovascular: S1, S2 Abdomen: Soft, Non-tender Extremities: No Edema Skin: Warm, No Rashes Labs Laboratory Tests Test 10/29/21 05:30 10/30/21 08:20 White Blood Count 6.4 x10^3/uL (4.0-11.0) 8.5 x10^3/uL (4.0-11.0) Red Blood Count 2.43 x10^6/uL (3.50-5.40) 2.62 x10^6/uL (3.50-5.40) Hemoglobin 6.8 g/dL (12.0-15.5) 7.8 g/dL (12.0-15.5) Hematocrit 21.6 % (36.0-47.0) 23.6 % (36.0-47.0) Mean Corpuscular Volume 89 fL (79-100) 90 fL (79-100) Mean Corpuscular Hemoglobin 28 pg (25-35) 30 pg (25-35) Mean Corpuscular Hemoglobin Concent 32 g/dL (31-37) 33 g/dL (31-37) Red Cell Distribution Width 17.8 % (11.5-14.5) 17.4 % (11.5-14.5) Platelet Count 323 x10^3/uL (140-400) 335 x10^3/uL (140-400) Neutrophils (%) (Auto) 90 % (31-73) 93 % (31-73) Lymphocytes (%) (Auto) 6 % (24-48) 4 % (24-48) Monocytes (%) (Auto) 5 % (0-9) 3 % (0-9) Eosinophils (%) (Auto) 0 % (0-3) 0 % (0-3) Basophils (%) (Auto) 0 % (0-3) 0 % (0-3) Neutrophils # (Auto) 5.7 x10^3/uL (1.8-7.7) 7.9 x10^3/uL (1.8-7.7) Lymphocytes # (Auto) 0.4 x10^3/uL (1.0-4.8) 0.3 x10^3/uL (1.0-4.8) Monocytes # (Auto) 0.3 x10^3/uL (0.0-1.1) 0.2 x10^3/uL (0.0-1.1) Eosinophils # (Auto) 0.0 x10^3/uL (0.0-0.7) 0.0 x10^3/uL (0.0-0.7) Basophils # (Auto) 0.0 x10^3/uL (0.0-0.2) 0.0 x10^3/uL (0.0-0.2) Sodium Level 138 mmol/L (136-145) 135 mmol/L (136-145) Potassium Level 4.1 mmol/L (3.5-5.1) 4.3 mmol/L (3.5-5.1) Chloride Level 99 mmol/L (98-107) 98 mmol/L (98-107) Carbon Dioxide Level 34 mmol/L (21-32) 37 mmol/L (21-32) Anion Gap 5 (6-14) 0 (6-14) Blood Urea Nitrogen 17 mg/dL (7-20) 28 mg/dL (7-20) Creatinine 1.1 mg/dL (0.6-1.0) 1.0 mg/dL (0.6-1.0) Estimated GFR (Cockcroft-Gault) 49.5 55.3 BUN/Creatinine Ratio 15 (6-20) Glucose Level 160 mg/dL (70-99) 177 mg/dL (70-99) Calcium Level 9.2 mg/dL (8.5-10.1) 8.2 mg/dL (8.5-10.1) Total Bilirubin 0.2 mg/dL (0.2-1.0) Aspartate Amino Transf (AST/SGOT) 16 U/L (15-37) Alanine Aminotransferase (ALT/SGPT) 13 U/L (14-59) Alkaline Phosphatase 111 U/L (46-116) Total Protein 6.7 g/dL (6.4-8.2) Albumin 1.8 g/dL (3.4-5.0) Albumin/Globulin Ratio 0.4 (1.0-1.7) Segmented Neutrophils % 91 % (35-66) Band Neutrophils % 3 % (0-9) Lymphocytes % 4 % (24-48) Monocytes % 2 % (0-10) Platelet Estimate Adequate (ADEQUATE) Laboratory Tests Test 10/30/21 08:20 White Blood Count 8.5 x10^3/uL (4.0-11.0) Red Blood Count 2.62 x10^6/uL (3.50-5.40) Hemoglobin 7.8 g/dL (12.0-15.5) Hematocrit 23.6 % (36.0-47.0) Mean Corpuscular Volume 90 fL (79-100) Mean Corpuscular Hemoglobin 30 pg (25-35) Mean Corpuscular Hemoglobin Concent 33 g/dL (31-37) Red Cell Distribution Width 17.4 % (11.5-14.5) Platelet Count 335 x10^3/uL (140-400) Neutrophils (%) (Auto) 93 % (31-73) Lymphocytes (%) (Auto) 4 % (24-48) Monocytes (%) (Auto) 3 % (0-9) Eosinophils (%) (Auto) 0 % (0-3) Basophils (%) (Auto) 0 % (0-3) Neutrophils # (Auto) 7.9 x10^3/uL (1.8-7.7) Lymphocytes # (Auto) 0.3 x10^3/uL (1.0-4.8) Monocytes # (Auto) 0.2 x10^3/uL (0.0-1.1) Eosinophils # (Auto) 0.0 x10^3/uL (0.0-0.7) Basophils # (Auto) 0.0 x10^3/uL (0.0-0.2) Segmented Neutrophils % 91 % (35-66) Band Neutrophils % 3 % (0-9) Lymphocytes % 4 % (24-48) Monocytes % 2 % (0-10) Platelet Estimate Adequate (ADEQUATE) Sodium Level 135 mmol/L (136-145) Potassium Level 4.3 mmol/L (3.5-5.1) Chloride Level 98 mmol/L (98-107) Carbon Dioxide Level 37 mmol/L (21-32) Anion Gap 0 (6-14) Blood Urea Nitrogen 28 mg/dL (7-20) Creatinine 1.0 mg/dL (0.6-1.0) Estimated GFR (Cockcroft-Gault) 55.3 Glucose Level 177 mg/dL (70-99) Calcium Level 8.2 mg/dL (8.5-10.1) Medications Active Scripts Medications Dose Route/Sig Max Daily Dose Days Date Category Doxycycline Hyclate 100 Mg Capsule 1 Cap PO BID 08/19/21 Rx Medrol (Methylprednisolone) 4 Mg Tab.ds.pk 1 Pkg PO UD 08/19/21 Rx Ferrous Sulfate 325 Mg Tablet 1 Tab PO DAILY 07/26/21 Reported Clopidogrel (Clopidogrel Bisulfate) 75 Mg Tablet 1 Tab PO DAILY 07/20/21 Reported Spironolactone 25 Mg Tablet 25 Mg PO DAILY 05/19/21 Reported Metoprolol Succinate ( Xl ) (Metoprolol Succinate) 25 Mg Tab.er.24h 25 Mg PO DAILY 05/19/21 Reported Voltaren Arthritis Pain (Diclofenac Sodium) 20 Gm Gel..gram. 20 Gm TP PRN PRN 05/19/21 Reported Entresto 24 mg-26 mg Tablet (Sacubitril/Valsartan) 1 Each Tablet 1 Each PO BID 30 11/19/20 Rx Gabapentin (Gabapentin) 100 Mg Capsule 100 Mg PO TID 10/18/20 Reported Alendronate Sodium 70 Mg Tablet 1 Tab PO WEEKLY 10/16/20 Reported Allopurinol 300 Mg Tablet 1 Tab PO DAILY 10/16/20 Reported Trelegy Ellipta 100-62.5-25 (Fluticasone/Umeclidin/Vilanter) 1 Each Blst.w.dev 1 Each IH DAILY 03/17/20 Reported Prilosec Otc (Omeprazole Magnesium) 20 Mg Tablet.dr 40 Mg PO DAILY 03/17/20 Reported Duoneb 0.5-3(2.5) Mg/3 Ml (Albuterol/Ipratropium) 3 Ml Ampul.neb 3 Ml NEB Q4HRS 14 10/22/19 Rx K-Tab ER (Potassium Chloride) 20 Meq Tablet.er 20 Meq PO DAILY 07/30/19 Reported Montelukast Sodium Tablet (Montelukast Sodium) 10 Mg Tablet 10 Mg PO HS 07/29/19 Reported Levocetirizine Dihydrochloride 5 Mg Tablet 5 Mg PO DAILY 07/29/19 Reported Amitriptyline Hcl 25 Mg Tablet 25 Mg PO QHS 07/29/19 Reported Vitamin D3 (Cholecalciferol (Vitamin D3)) 1,000 Unit Tablet 1 Tab PO DAILY 01/02/18 Reported Torsemide 20 Mg Tablet 2 Tab PO DAILY 01/02/18 Reported Daliresp (Roflumilast) 500 Mcg Tablet 1 Tab PO DAILY 09/23/17 Reported Atorvastatin Calcium 20 Mg Tablet 20 Mg PO HS 09/23/17 Reported Requip (Ropinirole Hcl) 1 Mg Tablet 3 Tab PO QHS 09/23/17 Reported Proair Hfa Inhaler (Albuterol Sulfate) 8.5 Gm Hfa.aer.ad 1 Puff INH PRN Q6HRS PRN 09/23/17 Reported Levothyroxine Sodium 50 Mcg Tablet 1 Tab PO DAILY 09/23/17 Reported Impression . FULL NOTE DICTATD AGREE WITH CURRENT RX Plan . Continue current support Labs reviewed. Hgb improved Possible discharge tomorrow. LETICIA FORTUNE MD Oct 30, 2021 10:16
--- NOTE | 2021-10-30 10:44 | PDOC ---
[employer] PROGRESS NOTE Date of Service DOS: DATE: 10/30/21 TIME: 10:43 Chief Complaint Chief Complaint shortness of breath, history of diabetes type 2, hypertension, high cholesterol, COPD, oxygen dependent at 3 L continuously, CHF, CAD History of Present Illness History of Present Illness 10/30/21: Patient seen and examined Chart reviewed Discussed with RN Patient lying in bed comfortable on 3L NC and in no apparent distress Hemoglobin post transfusion 7.8 today up from 6.8 yesterday 10/29/21 Patient seen and examined Chart reviewed Discussed with RN Hemoglobin 6.8 Patient is short of breath with some audible wheezing Patient laying in bed comfortably in n apparent distress Patient endorsed an occasional black tarry stool. 66 year old female with a history of diabetes type 2, hypertension, high cholesterol, COPD, oxygen dependent at 3 L continuously, CHF, CAD, who presents the ED yesterday to be evaluated for cough and shortness of breath that has been going on for 3 days. Patient states she used her breathing treatments prior to coming to the ED. Vitals/I&O Vitals/I&O: Vital Signs Date Time Temp Pulse Resp B/P (MAP) Pulse Ox O2 Delivery O2 Flow Rate FiO2 10/30/21 09:05 94 92/42 10/30/21 07:00 97.8 18 99 Nasal Cannula 3.0 97.8 I & O 10/29/21 10/29/21 10/30/21 15:00 23:00 07:00 Intake Total 350 ml 590 ml Balance 350 ml 590 ml Physical Exam General: Alert, Oriented X3, Cooperative Heart: Regular rate Lungs: Wheezing, Crackles Extremities: No edema Labs Labs: Laboratory Tests Test 10/30/21 08:20 White Blood Count 8.5 x10^3/uL (4.0-11.0) Red Blood Count 2.62 x10^6/uL (3.50-5.40) Hemoglobin 7.8 g/dL (12.0-15.5) Hematocrit 23.6 % (36.0-47.0) Mean Corpuscular Volume 90 fL (79-100) Mean Corpuscular Hemoglobin 30 pg (25-35) Mean Corpuscular Hemoglobin Concent 33 g/dL (31-37) Red Cell Distribution Width 17.4 % (11.5-14.5) Platelet Count 335 x10^3/uL (140-400) Neutrophils (%) (Auto) 93 % (31-73) Lymphocytes (%) (Auto) 4 % (24-48) Monocytes (%) (Auto) 3 % (0-9) Eosinophils (%) (Auto) 0 % (0-3) Basophils (%) (Auto) 0 % (0-3) Neutrophils # (Auto) 7.9 x10^3/uL (1.8-7.7) Lymphocytes # (Auto) 0.3 x10^3/uL (1.0-4.8) Monocytes # (Auto) 0.2 x10^3/uL (0.0-1.1) Eosinophils # (Auto) 0.0 x10^3/uL (0.0-0.7) Basophils # (Auto) 0.0 x10^3/uL (0.0-0.2) Segmented Neutrophils % 91 % (35-66) Band Neutrophils % 3 % (0-9) Lymphocytes % 4 % (24-48) Monocytes % 2 % (0-10) Platelet Estimate Adequate (ADEQUATE) Sodium Level 135 mmol/L (136-145) Potassium Level 4.3 mmol/L (3.5-5.1) Chloride Level 98 mmol/L (98-107) Carbon Dioxide Level 37 mmol/L (21-32) Anion Gap 0 (6-14) Blood Urea Nitrogen 28 mg/dL (7-20) Creatinine 1.0 mg/dL (0.6-1.0) Estimated GFR (Cockcroft-Gault) 55.3 Glucose Level 177 mg/dL (70-99) Calcium Level 8.2 mg/dL (8.5-10.1) Assessment and Plan Assessmemt and Plan ASSESSMENT: Acute hypoxic respiratory failure Normocytic anemia of unclear etiology Home oxygen therapy at 3 L currently at baseline History of CAD asymptomatic History of CHF compensated Diabetes mellitus type 2 insulin requiring Essential hypertension hyperlipidemia Acquired hypothyroidism History of AICD History of diastolic CHF, grade 1 abnormal relaxation pattern Hx left shoulder surgery, Hx tobacco abuse (quit 3 years ago) PLAN: Trend labs Appreciate pulmonary input Home meds IV steroids Duo nebs as needed Lovenox for DVT prophylaxis Protonix GI prophylaxis ADA diet CODE STATUS full Discussed with RN and SW Discharge disposition pending DPOA: Comment Review of Relevant I have reviewed the following items jon (where applicable) has been applied. Medications: Current Medications Medications (Trade) Dose Ordered Sig/Keshav Route PRN Reason Start Time Stop Time Status Last Admin Dose Admin Vitamin D (Vitamin D3) 1,000 unit DAILY PO 10/29/21 12:00 10/30/21 09:03 Ferrous Sulfate (Feosol) 325 mg DAILY PO 10/29/21 12:00 10/30/21 09:06 Metoprolol Succinate (Toprol Xl) 25 mg DAILY PO 10/29/21 12:00 10/30/21 09:05 Spironolactone (Aldactone) 25 mg DAILY PO 10/29/21 12:00 10/30/21 09:06 Fluticasone/ Vilanterol (Breo Ellipta 100-25 Mcg) 1 puff DAILY INH 10/29/21 12:00 10/30/21 09:07 Cetirizine HCl (ZyrTEC) 5 mg DAILY PO 10/30/21 09:00 10/30/21 09:04 Potassium Chloride (Klor-Con) 20 meq DAILYWBKFT PO 10/29/21 12:00 10/30/21 09:06 Aspirin (Aspirin Chewable) 81 mg DAILYWBKFT PO 10/29/21 12:00 10/30/21 09:03 Acetaminophen (Tylenol) 650 mg PRN Q6HRS PRN PO MILD PAIN / TEMP > 100.3'F 10/30/21 08:45 10/30/21 09:03 Justifications for Admission Other Justification COPD exacerbation JULIANA ERNST III DO Oct 30, 2021 10:44
[2021-10-30 11:00] VITALS: BP 88/31
--- NOTE | 2021-10-30 11:26 | NUR ---
SW following. Discussed with RN, pt from home, uses oxygen at home, cardiac diet. Pt will discharge home with [facility] when medically ready. SW will continue to follow.
[2021-10-30 15:00] VITALS: BP 83/26
[2021-10-30 19:00] VITALS: BP 100/47
[2021-10-30] MEDS: rOPINIRole 1 MG TABLET. PO SCH (21:14)
[2021-10-30] MEDS: MONTELUKAST SODIUM 10 MG TABLET. PO SCH (21:14)
[2021-10-30] MEDS: ATORVASTATIN CALCIUM 20 MG TABLET PO SCH (21:14)
[2021-10-30] MEDS: AMITRIPTYLINE HCL 25 MG TABLET. PO SCH (21:14)
[2021-10-30 23:00] VITALS: BP 95/53
[2021-10-31] MEDS: IPRATRPIUM/ALBUTEROL 0.5/2.5MG 3 ML NEBU. NEB SCH ×6 (00:50→20:00)
[2021-10-31 03:00] VITALS: BP 102/46
[2021-10-31] MEDS: PANTOPRAZOLE 40 MG TABLET.DR. PO SCH (05:59)
[2021-10-31] MEDS: methylPREDNISolone SOD SUCC PF 40 MG/ML VIAL. IV SCH ×3 (05:59→21:53)
[2021-10-31] MEDS: LEVOTHYROXINE 50 MCG TABLET PO SCH (05:59)
[2021-10-31 07:00] VITALS: BP 99/45
[2021-10-31] MEDS: FLUTICASONE/VILANTEROL 100/25 INHALER. INH SCH (09:52)
--- NOTE | 2021-10-31 09:53 | PDOC ---
PULMONARY PROGRESS NOTES DATE: 10/31/21 TIME: 09:44 Subjective Patient lying in bed this morning, feeling slightly worse Wet cough Continues on 3L NC Vitals Vital Signs Date Time Temp Pulse Resp B/P (MAP) Pulse Ox O2 Delivery O2 Flow Rate FiO2 10/31/21 08:57 100 Nasal Cannula 3.0 10/31/21 07:00 98.2 94 16 99/45 (63) 98.2 ROS: No Nausea, No Chest Pain, No Increase Cough General: Alert, No acute distress HEENT: Other Lungs: Wheezing, Crackles Cardiovascular: S1, S2 Abdomen: Soft, Non-tender Extremities: No Edema Skin: Warm, No Rashes Labs Laboratory Tests Test 10/30/21 08:20 White Blood Count 8.5 x10^3/uL (4.0-11.0) Red Blood Count 2.62 x10^6/uL (3.50-5.40) Hemoglobin 7.8 g/dL (12.0-15.5) Hematocrit 23.6 % (36.0-47.0) Mean Corpuscular Volume 90 fL (79-100) Mean Corpuscular Hemoglobin 30 pg (25-35) Mean Corpuscular Hemoglobin Concent 33 g/dL (31-37) Red Cell Distribution Width 17.4 % (11.5-14.5) Platelet Count 335 x10^3/uL (140-400) Neutrophils (%) (Auto) 93 % (31-73) Lymphocytes (%) (Auto) 4 % (24-48) Monocytes (%) (Auto) 3 % (0-9) Eosinophils (%) (Auto) 0 % (0-3) Basophils (%) (Auto) 0 % (0-3) Neutrophils # (Auto) 7.9 x10^3/uL (1.8-7.7) Lymphocytes # (Auto) 0.3 x10^3/uL (1.0-4.8) Monocytes # (Auto) 0.2 x10^3/uL (0.0-1.1) Eosinophils # (Auto) 0.0 x10^3/uL (0.0-0.7) Basophils # (Auto) 0.0 x10^3/uL (0.0-0.2) Segmented Neutrophils % 91 % (35-66) Band Neutrophils % 3 % (0-9) Lymphocytes % 4 % (24-48) Monocytes % 2 % (0-10) Platelet Estimate Adequate (ADEQUATE) Sodium Level 135 mmol/L (136-145) Potassium Level 4.3 mmol/L (3.5-5.1) Chloride Level 98 mmol/L (98-107) Carbon Dioxide Level 37 mmol/L (21-32) Anion Gap 0 (6-14) Blood Urea Nitrogen 28 mg/dL (7-20) Creatinine 1.0 mg/dL (0.6-1.0) Estimated GFR (Cockcroft-Gault) 55.3 Glucose Level 177 mg/dL (70-99) Calcium Level 8.2 mg/dL (8.5-10.1) Medications Active Scripts Medications Dose Route/Sig Max Daily Dose Days Date Category Doxycycline Hyclate 100 Mg Capsule 1 Cap PO BID 08/19/21 Rx Medrol (Methylprednisolone) 4 Mg Tab.ds.pk 1 Pkg PO UD 08/19/21 Rx Ferrous Sulfate 325 Mg Tablet 1 Tab PO DAILY 07/26/21 Reported Clopidogrel (Clopidogrel Bisulfate) 75 Mg Tablet 1 Tab PO DAILY 07/20/21 Reported Spironolactone 25 Mg Tablet 25 Mg PO DAILY 05/19/21 Reported Metoprolol Succinate ( Xl ) (Metoprolol Succinate) 25 Mg Tab.er.24h 25 Mg PO DAILY 05/19/21 Reported Voltaren Arthritis Pain (Diclofenac Sodium) 20 Gm Gel..gram. 20 Gm TP PRN PRN 05/19/21 Reported Entresto 24 mg-26 mg Tablet (Sacubitril/Valsartan) 1 Each Tablet 1 Each PO BID 30 11/19/20 Rx Gabapentin (Gabapentin) 100 Mg Capsule 100 Mg PO TID 10/18/20 Reported Alendronate Sodium 70 Mg Tablet 1 Tab PO WEEKLY 10/16/20 Reported Allopurinol 300 Mg Tablet 1 Tab PO DAILY 10/16/20 Reported Trelegy Ellipta 100-62.5-25 (Fluticasone/Umeclidin/Vilanter) 1 Each Blst.w.dev 1 Each IH DAILY 03/17/20 Reported Prilosec Otc (Omeprazole Magnesium) 20 Mg Tablet.dr 40 Mg PO DAILY 03/17/20 Reported Duoneb 0.5-3(2.5) Mg/3 Ml (Albuterol/Ipratropium) 3 Ml Ampul.neb 3 Ml NEB Q4HRS 14 10/22/19 Rx K-Tab ER (Potassium Chloride) 20 Meq Tablet.er 20 Meq PO DAILY 07/30/19 Reported Montelukast Sodium Tablet (Montelukast Sodium) 10 Mg Tablet 10 Mg PO HS 07/29/19 Reported Levocetirizine Dihydrochloride 5 Mg Tablet 5 Mg PO DAILY 07/29/19 Reported Amitriptyline Hcl 25 Mg Tablet 25 Mg PO QHS 07/29/19 Reported Vitamin D3 (Cholecalciferol (Vitamin D3)) 1,000 Unit Tablet 1 Tab PO DAILY 01/02/18 Reported Torsemide 20 Mg Tablet 2 Tab PO DAILY 01/02/18 Reported Daliresp (Roflumilast) 500 Mcg Tablet 1 Tab PO DAILY 09/23/17 Reported Atorvastatin Calcium 20 Mg Tablet 20 Mg PO HS 09/23/17 Reported Requip (Ropinirole Hcl) 1 Mg Tablet 3 Tab PO QHS 09/23/17 Reported Proair Hfa Inhaler (Albuterol Sulfate) 8.5 Gm Hfa.aer.ad 1 Puff INH PRN Q6HRS PRN 09/23/17 Reported Levothyroxine Sodium 50 Mcg Tablet 1 Tab PO DAILY 09/23/17 Reported Impression . FULL NOTE DICTATD AGREE WITH CURRENT RX Plan . Updated 10/31 Possible discharge in 24 to 48 hours, respiratory status compensated Continue current support Benzocaine for sore throat CXR ordered Patient to follow up with oncology concerning Hgb. LETICIA FORTUNE MD Oct 31, 2021 09:53
[2021-10-31] MEDS: SPIRONOLACTONE 25 MG TABLET PO SCH (09:54)
[2021-10-31] MEDS: POTASSIUM CHLORIDE 20 MEQ TABLET.ER. PO SCH (09:54)
[2021-10-31] MEDS: GABAPENTIN 100 MG CAPSULE. PO SCH ×3 (09:54→21:53)
[2021-10-31] MEDS: ROFLUMILAST 500 MCG TABLET. PO SCH (09:54)
[2021-10-31] MEDS: ALLOPURINOL 300 MG TABLET. PO SCH (09:54)
[2021-10-31] MEDS: CHOLECALCIFEROL (VITAMIN D3) 1,000 UNIT TABLET PO SCH (09:54)
[2021-10-31] MEDS: ASPIRIN CHEWABLE 81 MG TABLET. PO SCH (09:54)
[2021-10-31] MEDS: CLOPIDOGREL BISULFATE 75 MG TABLET PO SCH (09:55)
[2021-10-31] MEDS: TORSEMIDE 20 MG TABLET. PO SCH (09:55)
[2021-10-31] MEDS: FERROUS SULFATE 325 MG TABLET. PO SCH (09:56)
[2021-10-31] MEDS: METOPROLOL SUCC 24HR ER 25 MG TAB.ER.24H. PO SCH (09:56)
[2021-10-31] MEDS: CETIRIZINE HCL 10 MG TABLET. PO SCH (09:56)
--- NOTE | 2021-10-31 10:02 | PDOC ---
[employer] PROGRESS NOTE Date of Service DOS: DATE: 10/31/21 TIME: 09:57 Chief Complaint Chief Complaint shortness of breath, history of diabetes type 2, hypertension, high cholesterol, COPD, oxygen dependent at 2 L continuously, CHF, CAD History of Present Illness History of Present Illness 10/31/21 Patient seen and examined at bedside. Patient lying comfortably on 2L NC and in no apparent distress Chart reviewed Discussed with RN 10/30/21: Patient seen and examined Chart reviewed Discussed with RN Patient lying in bed comfortable on 3L NC and in no apparent distress Hemoglobin post transfusion 7.8 today up from 6.8 yesterday 10/29/21 Patient seen and examined Chart reviewed Discussed with RN Hemoglobin 6.8 Patient is short of breath with some audible wheezing Patient laying in bed comfortably in n apparent distress Patient endorsed an occasional black tarry stool. 66 year old female with a history of diabetes type 2, hypertension, high cholesterol, COPD, oxygen dependent at 3 L continuously, CHF, CAD, who presents the ED yesterday to be evaluated for cough and shortness of breath that has been going on for 3 days. Patient states she used her breathing treatments prior to coming to the ED. Vitals/I&O Vitals/I&O: Vital Signs Date Time Temp Pulse Resp B/P (MAP) Pulse Ox O2 Delivery O2 Flow Rate FiO2 10/31/21 09:56 94 99/45 10/31/21 08:57 100 Nasal Cannula 3.0 10/31/21 07:00 98.2 16 98.2 Physical Exam General: Alert, Oriented X3, Cooperative Heart: Regular rate Lungs: Wheezing, Crackles Extremities: No edema Assessment and Plan Assessmemt and Plan Assessment: shortness of breath history of diabetes type 2 hypertension high cholesterol COPD Oxygen dependent at 2 L continuously CHF CAD Plan: Continue steroids, prn pain meds, home meds Appreciate pulmonary input DVT prophylaxis Full code Encourage PO intake Discharge with home health when ok with pulmonology Comment Review of Relevant I have reviewed the following items jon (where applicable) has been applied. Justifications for Admission Other Justification COPD exacerbation JULIANA ERNST III DO Oct 31, 2021 10:02
--- NOTE | 2021-10-31 10:49 | RAD ---
EXAM: Chest, single view. HISTORY: Cough. COMPARISON: 10/27/2021 FINDINGS: A frontal view of the chest is obtained. There is suspected emphysema. There is stable diff use interstitial infiltrate. There is no consolidation, pleural effusion or pneumothorax. There is a stable cardiac silhouette and cardiac pacemaker defibrillator. There is a closure device overlying th e left heart. There is a small nodule overlying the right upper lobe. IMPRESSION: 1. Stable diffuse interstitial infiltrate superimposed on chronic interstitial changes. 2. Small right upper lobe pulmonary nodule, likely corresponding with a nodule demonstrated on the pr ior PET/CT dated 09/18/2021. There are multiple additional pulmonary nodules on the prior PET/CT whic h are not well seen radiographically due to size. Please refer to the prior PET/CT report. Electronically signed by: Peyton Pizano MD (10/31/2021 10:47 AM) [facility]
[2021-10-31 11:00] VITALS: BP 101/50
[2021-10-31] MEDS: BENZOCAINE/MENTHOL LOZENGE. PO PRN (12:26)
[2021-10-31] MEDS: guaiFENesin/CODEINE 100mg/10mg 5 ML LIQUID PO PRN ×2 (14:35→22:02)
[2021-10-31 15:00] VITALS: BP 104/43
[2021-10-31 19:00] VITALS: BP 102/48
[2021-10-31] MEDS: AMITRIPTYLINE HCL 25 MG TABLET. PO SCH (21:52)
[2021-10-31] MEDS: MONTELUKAST SODIUM 10 MG TABLET. PO SCH (21:52)
[2021-10-31] MEDS: ATORVASTATIN CALCIUM 20 MG TABLET PO SCH (21:53)
[2021-10-31] MEDS: rOPINIRole 1 MG TABLET. PO SCH (21:53)
[2021-10-31 23:00] VITALS: BP 100/53
[2021-11-01 03:00] VITALS: BP 104/47
[2021-11-01] MEDS: IPRATRPIUM/ALBUTEROL 0.5/2.5MG 3 ML NEBU. NEB SCH ×7 (03:56→23:30)
[2021-11-01] MEDS: methylPREDNISolone SOD SUCC PF 40 MG/ML VIAL. IV SCH ×3 (06:00→21:49)
[2021-11-01] MEDS: LEVOTHYROXINE 50 MCG TABLET PO SCH (06:00)
[2021-11-01 07:00] VITALS: BP 106/39
[2021-11-01] MEDS: CHOLECALCIFEROL (VITAMIN D3) 1,000 UNIT TABLET PO SCH (08:56)
[2021-11-01] MEDS: CLOPIDOGREL BISULFATE 75 MG TABLET PO SCH (08:56)
[2021-11-01] MEDS: PANTOPRAZOLE 40 MG TABLET.DR. PO SCH (08:56)
[2021-11-01] MEDS: ROFLUMILAST 500 MCG TABLET. PO SCH (08:56)
[2021-11-01] MEDS: CETIRIZINE HCL 10 MG TABLET. PO SCH (08:58)
[2021-11-01] MEDS: GABAPENTIN 100 MG CAPSULE. PO SCH ×3 (08:58→21:30)
[2021-11-01] MEDS: POTASSIUM CHLORIDE 20 MEQ TABLET.ER. PO SCH (08:58)
[2021-11-01] MEDS: FERROUS SULFATE 325 MG TABLET. PO SCH (08:58)
[2021-11-01] MEDS: ASPIRIN CHEWABLE 81 MG TABLET. PO SCH (08:58)
[2021-11-01] MEDS: FLUTICASONE/VILANTEROL 100/25 INHALER. INH SCH (09:02)
[2021-11-01] MEDS: ALLOPURINOL 300 MG TABLET. PO SCH (09:37)
[2021-11-01 11:00] VITALS: BP 105/49
--- NOTE | 2021-11-01 11:21 | PDOC ---
[employer] PROGRESS NOTE Date of Service DOS: DATE: 11/01/21 TIME: 11:19 Chief Complaint Chief Complaint shortness of breath, history of diabetes type 2, hypertension, high cholesterol, COPD, oxygen dependent at 2 L continuously, CHF, CAD History of Present Illness History of Present Illness 11/01/21: Patient seen and examined Patient on 3L NC, and wheezing more audibly than yesterday Chart reviewed Discussed with RN 10/31/21 Patient seen and examined at bedside. Patient lying comfortably on 2L NC and in no apparent distress Chart reviewed Discussed with RN 10/30/21: Patient seen and examined Chart reviewed Discussed with RN Patient lying in bed comfortable on 3L NC and in no apparent distress Hemoglobin post transfusion 7.8 today up from 6.8 yesterday 10/29/21 Patient seen and examined Chart reviewed Discussed with RN Hemoglobin 6.8 Patient is short of breath with some audible wheezing Patient laying in bed comfortably in n apparent distress Patient endorsed an occasional black tarry stool. 66 year old female with a history of diabetes type 2, hypertension, high cholesterol, COPD, oxygen dependent at 3 L continuously, CHF, CAD, who presents the ED yesterday to be evaluated for cough and shortness of breath that has been going on for 3 days. Patient states she used her breathing treatments prior to coming to the ED. Vitals/I&O Vitals/I&O: Vital Signs Date Time Temp Pulse Resp B/P (MAP) Pulse Ox O2 Delivery O2 Flow Rate FiO2 11/01/21 07:00 97.5 101 18 106/39 (61) 99 Nasal Cannula 3.0 97.5 I & O 10/31/21 10/31/21 11/01/21 15:00 23:00 07:00 Intake Total 240 ml Balance 240 ml Physical Exam General: Alert, Oriented X3, Cooperative Heart: Regular rate Lungs: Wheezing, Crackles Extremities: No edema Assessment and Plan Assessmemt and Plan Assessmemt and Plan Assessment: SOA history of diabetes type 2 hypertension high cholesterol COPD Oxygen dependent at 2 L continuously CHF CAD Plan: Continue steroids, breathing treatments oxygen ,prn pain meds, home meds DVT prophylaxis Full code Encourage PO intake Consult social services manager for skill nurse evaluation Comment Review of Relevant I have reviewed the following items jon (where applicable) has been applied. Medications: Current Medications Medications (Trade) Dose Ordered Sig/Keshav Route PRN Reason Start Time Stop Time Status Last Admin Dose Admin Guaifenesin/ Codeine Phosphate (Robitussin Ac) 5 ml PRN Q6HRS PRN PO COUGH 10/31/21 14:30 10/31/21 22:02 Justifications for Admission Other Justification COPD exacerbation JULIANA ERNST III DO Nov 01, 2021 11:21
[2021-11-01] MEDS: METOPROLOL SUCC 24HR ER 25 MG TAB.ER.24H. PO SCH (13:22)
[2021-11-01] MEDS: TORSEMIDE 20 MG TABLET. PO SCH (13:23)
[2021-11-01] MEDS: SPIRONOLACTONE 25 MG TABLET PO SCH (13:23)
[2021-11-01] MEDS: ACETAMINOPHEN 325 MG TABLET. PO PRN ×2 (13:25→20:16)
[2021-11-01 15:00] VITALS: BP 105/48
[2021-11-01 19:00] VITALS: BP 114/46
[2021-11-01] MEDS: guaiFENesin/CODEINE 100mg/10mg 5 ML LIQUID PO PRN (20:16)
[2021-11-01] MEDS: BENZOCAINE/MENTHOL LOZENGE. PO PRN (20:16)
[2021-11-01] MEDS: ATORVASTATIN CALCIUM 20 MG TABLET PO SCH (21:30)
[2021-11-01] MEDS: rOPINIRole 1 MG TABLET. PO SCH (21:30)
[2021-11-01] MEDS: MONTELUKAST SODIUM 10 MG TABLET. PO SCH (21:30)
[2021-11-01] MEDS: AMITRIPTYLINE HCL 25 MG TABLET. PO SCH (21:30)
[2021-11-01 23:00] VITALS: BP 98/45
[2021-11-02 03:00] VITALS: BP 100/45
[2021-11-02] MEDS: IPRATRPIUM/ALBUTEROL 0.5/2.5MG 3 ML NEBU. NEB SCH ×5 (03:30→19:50)
[2021-11-02] MEDS: PANTOPRAZOLE 40 MG TABLET.DR. PO SCH (05:51)
[2021-11-02] MEDS: methylPREDNISolone SOD SUCC PF 40 MG/ML VIAL. IV SCH ×3 (05:51→22:21)
[2021-11-02] MEDS: LEVOTHYROXINE 50 MCG TABLET PO SCH (05:51)
[2021-11-02] MEDS: guaiFENesin/CODEINE 100mg/10mg 5 ML LIQUID PO PRN (05:58)
[2021-11-02 07:00] VITALS: BP 104/39
[2021-11-02] MEDS: ALLOPURINOL 300 MG TABLET. PO SCH (07:44)
[2021-11-02] MEDS: CLOPIDOGREL BISULFATE 75 MG TABLET PO SCH (07:44)
[2021-11-02] MEDS: ROFLUMILAST 500 MCG TABLET. PO SCH (07:44)
[2021-11-02] MEDS: CHOLECALCIFEROL (VITAMIN D3) 1,000 UNIT TABLET PO SCH (07:44)
[2021-11-02] MEDS: ASPIRIN CHEWABLE 81 MG TABLET. PO SCH (07:44)
[2021-11-02] MEDS: GABAPENTIN 100 MG CAPSULE. PO SCH ×3 (07:44→21:03)
[2021-11-02] MEDS: POTASSIUM CHLORIDE 20 MEQ TABLET.ER. PO SCH (07:45)
[2021-11-02] MEDS: CETIRIZINE HCL 10 MG TABLET. PO SCH (07:45)
[2021-11-02] MEDS: SPIRONOLACTONE 25 MG TABLET PO SCH (07:46)
[2021-11-02] MEDS: FERROUS SULFATE 325 MG TABLET. PO SCH (07:47)
[2021-11-02] MEDS: TORSEMIDE 20 MG TABLET. PO SCH (07:47)
[2021-11-02] MEDS: FLUTICASONE/VILANTEROL 100/25 INHALER. INH SCH (07:54)
[2021-11-02] MEDS: METOPROLOL SUCC 24HR ER 25 MG TAB.ER.24H. PO SCH (07:58)
--- NOTE | 2021-11-02 08:52 | PDOC ---
PULMONARY PROGRESS NOTES DATE: 11/02/21 TIME: 08:52 Subjective Patient lying in bed this morning, feeling slightly worse Wet cough Continues on 3L NC Vitals Vital Signs Date Time Temp Pulse Resp B/P (MAP) Pulse Ox O2 Delivery O2 Flow Rate FiO2 11/02/21 07:58 84 104/48 11/02/21 07:40 Nasal Cannula 3.0 11/02/21 07:00 98.4 18 93 98.4 ROS: No Nausea, No Chest Pain, No Increase Cough General: Alert, No acute distress HEENT: Other Lungs: Wheezing, Crackles Cardiovascular: S1, S2 Abdomen: Soft, Non-tender Extremities: No Edema Skin: Warm, No Rashes Medications Active Scripts Medications Dose Route/Sig Max Daily Dose Days Date Category Doxycycline Hyclate 100 Mg Capsule 1 Cap PO BID 08/19/21 Rx Medrol (Methylprednisolone) 4 Mg Tab.ds.pk 1 Pkg PO UD 08/19/21 Rx Ferrous Sulfate 325 Mg Tablet 1 Tab PO DAILY 07/26/21 Reported Clopidogrel (Clopidogrel Bisulfate) 75 Mg Tablet 1 Tab PO DAILY 07/20/21 Reported Spironolactone 25 Mg Tablet 25 Mg PO DAILY 05/19/21 Reported Metoprolol Succinate ( Xl ) (Metoprolol Succinate) 25 Mg Tab.er.24h 25 Mg PO DAILY 05/19/21 Reported Voltaren Arthritis Pain (Diclofenac Sodium) 20 Gm Gel..gram. 20 Gm TP PRN PRN 05/19/21 Reported Entresto 24 mg-26 mg Tablet (Sacubitril/Valsartan) 1 Each Tablet 1 Each PO BID 30 11/19/20 Rx Gabapentin (Gabapentin) 100 Mg Capsule 100 Mg PO TID 10/18/20 Reported Alendronate Sodium 70 Mg Tablet 1 Tab PO WEEKLY 10/16/20 Reported Allopurinol 300 Mg Tablet 1 Tab PO DAILY 10/16/20 Reported Trelegy Ellipta 100-62.5-25 (Fluticasone/Umeclidin/Vilanter) 1 Each Blst.w.dev 1 Each IH DAILY 03/17/20 Reported Prilosec Otc (Omeprazole Magnesium) 20 Mg Tablet.dr 40 Mg PO DAILY 03/17/20 Reported Duoneb 0.5-3(2.5) Mg/3 Ml (Albuterol/Ipratropium) 3 Ml Ampul.neb 3 Ml NEB Q4HRS 14 10/22/19 Rx K-Tab ER (Potassium Chloride) 20 Meq Tablet.er 20 Meq PO DAILY 07/30/19 Reported Montelukast Sodium Tablet (Montelukast Sodium) 10 Mg Tablet 10 Mg PO HS 07/29/19 Reported Levocetirizine Dihydrochloride 5 Mg Tablet 5 Mg PO DAILY 07/29/19 Reported Amitriptyline Hcl 25 Mg Tablet 25 Mg PO QHS 07/29/19 Reported Vitamin D3 (Cholecalciferol (Vitamin D3)) 1,000 Unit Tablet 1 Tab PO DAILY 01/02/18 Reported Torsemide 20 Mg Tablet 2 Tab PO DAILY 01/02/18 Reported Daliresp (Roflumilast) 500 Mcg Tablet 1 Tab PO DAILY 09/23/17 Reported Atorvastatin Calcium 20 Mg Tablet 20 Mg PO HS 09/23/17 Reported Requip (Ropinirole Hcl) 1 Mg Tablet 3 Tab PO QHS 09/23/17 Reported Proair Hfa Inhaler (Albuterol Sulfate) 8.5 Gm Hfa.aer.ad 1 Puff INH PRN Q6HRS PRN 09/23/17 Reported Levothyroxine Sodium 50 Mcg Tablet 1 Tab PO DAILY 09/23/17 Reported Impression . FULL NOTE DICTATD AGREE WITH CURRENT RX Plan . Updated 10/31 Possible discharge in 24 to 48 hours, respiratory status compensated Continue current support Benzocaine for sore throat CXR ordered Patient to follow up with oncology concerning Hgb. LETICIA FORTUNE MD Nov 02, 2021 08:52
[2021-11-02 11:00] VITALS: BP 102/58
[2021-11-02 15:00] VITALS: BP 104/68
--- NOTE | 2021-11-02 15:10 | PDOC ---
[employer] PROGRESS NOTE Date of Service DOS: DATE: 11/02/21 TIME: 15:07 Chief Complaint Chief Complaint shortness of breath, acute exacerbation of COPD acute on chronic respiratory failure, chronic hypoxia history of diabetes type 2, hypertension, high cholesterol, CHF, CAD symptomatic anemia on this admit, 1 u prbc given History of Present Illness History of Present Illness 11/02, she reports bloody stool x1 this AM, bright red blood, anemia on admit, breathign OK, but feels abd bloated, and abd is larger than her usual. she would also like to [facility], she feels that home health doesnt help much, only comes once per week, 11/01/21: Patient seen and examined Patient on 3L NC, and wheezing more audibly than yesterday Chart reviewed Discussed with RN 10/31/21 Patient seen and examined at bedside. Patient lying comfortably on 2L NC and in no apparent distress Chart reviewed Discussed with RN 10/30/21: Patient seen and examined Chart reviewed Discussed with RN Patient lying in bed comfortable on 3L NC and in no apparent distress Hemoglobin post transfusion 7.8 today up from 6.8 yesterday 10/29/21 Patient seen and examined Chart reviewed Discussed with RN Hemoglobin 6.8 Patient is short of breath with some audible wheezing Patient laying in bed comfortably in n apparent distress Patient endorsed an occasional black tarry stool. 66 year old female with a history of diabetes type 2, hypertension, high cholesterol, COPD, oxygen dependent at 3 L continuously, CHF, CAD, who presents the ED yesterday to be evaluated for cough and shortness of breath that has been going on for 3 days. Patient states she used her breathing treatments prior to coming to the ED. Vitals/I&O Vitals/I&O: Vital Signs Date Time Temp Pulse Resp B/P (MAP) Pulse Ox O2 Delivery O2 Flow Rate FiO2 11/02/21 12:59 99 Nasal Cannula 3.0 11/02/21 11:00 98.3 80 16 102/58 (73) 98.3 I & O 11/01/21 11/01/21 11/02/21 15:00 23:00 07:00 Intake Total 400 ml Balance 400 ml Physical Exam General: Alert, Oriented X3, Cooperative Heart: Regular rate Lungs: Wheezing, Crackles Abdomen: Soft Extremities: No clubbing, No edema Skin: No rashes, No breakdown Comment Review of Relevant I have reviewed the following items jon (where applicable) has been applied. Justifications for Admission Other Justification COPD exacerbation DEMETRA BABIN MD Nov 02, 2021 15:09
--- NOTE | 2021-11-02 15:34 | NUR ---
SW following. Discussed with RN, pt apparently wanting to go to [facility]. Therapy ordered today. SW requested repeat COVID PCR. HEIKE spoke with Aida at [facility], they can accept her pending therapy notes. Could likely discharge tomorrow to [facility]. HEIKE will continue to follow.
[2021-11-02 19:25] VITALS: BP 99/48
[2021-11-02] MEDS: AMITRIPTYLINE HCL 25 MG TABLET. PO SCH (21:03)
[2021-11-02] MEDS: MONTELUKAST SODIUM 10 MG TABLET. PO SCH (21:03)
[2021-11-02] MEDS: ATORVASTATIN CALCIUM 20 MG TABLET PO SCH (21:03)
[2021-11-02] MEDS: rOPINIRole 1 MG TABLET. PO SCH (21:03)
[2021-11-02 23:18] VITALS: BP 103/51
[2021-11-03 02:59] VITALS: BP 104/53
[2021-11-03] MEDS: IPRATRPIUM/ALBUTEROL 0.5/2.5MG 3 ML NEBU. NEB SCH ×6 (03:30→18:31)
[2021-11-03] MEDS: PANTOPRAZOLE 40 MG TABLET.DR. PO SCH (06:35)
[2021-11-03] MEDS: LEVOTHYROXINE 50 MCG TABLET PO SCH (06:35)
[2021-11-03] MEDS: methylPREDNISolone SOD SUCC PF 40 MG/ML VIAL. IV SCH ×3 (06:35→20:57)
[2021-11-03 07:15] VITALS: BP 102/45
[2021-11-03] MEDS: POTASSIUM CHLORIDE 20 MEQ TABLET.ER. PO SCH (08:23)
[2021-11-03] MEDS: CETIRIZINE HCL 10 MG TABLET. PO SCH (08:23)
[2021-11-03] MEDS: CLOPIDOGREL BISULFATE 75 MG TABLET PO SCH (08:24)
[2021-11-03] MEDS: CHOLECALCIFEROL (VITAMIN D3) 1,000 UNIT TABLET PO SCH (08:24)
[2021-11-03] MEDS: GABAPENTIN 100 MG CAPSULE. PO SCH ×3 (08:24→20:56)
[2021-11-03] MEDS: FERROUS SULFATE 325 MG TABLET. PO SCH (08:24)
[2021-11-03] MEDS: SPIRONOLACTONE 25 MG TABLET PO SCH (08:24)
[2021-11-03] MEDS: ASPIRIN CHEWABLE 81 MG TABLET. PO SCH (08:24)
[2021-11-03] MEDS: ALLOPURINOL 300 MG TABLET. PO SCH (08:24)
[2021-11-03] MEDS: TORSEMIDE 20 MG TABLET. PO SCH (08:24)
[2021-11-03] MEDS: ROFLUMILAST 500 MCG TABLET. PO SCH (08:24)
[2021-11-03] MEDS: METOPROLOL SUCC 24HR ER 25 MG TAB.ER.24H. PO SCH (08:25)
[2021-11-03 08:35] LABS: BASO % 0 % (0-3); EOS % 0 % (0-3); HEMATOCRIT 24.8 % (36.0-47.0); HEMOGLOBIN 7.8 g/dL (12.0-15.5); LYMPH # 0.4 x10^3/uL (1.0-4.8); LYMPH % 3 % (24-48); MEAN CORPUSCULAR HEMOGLOBIN 29 pg (25-35); MEAN CORPUSCULAR HGB CONC 31 g/dL (31-37); MEAN CORPUSCULAR VOLUME 92 fL (79-100); MONO # 0.5 x10^3/uL (0.0-1.1); MONO % 3 % (0-9); NEUT # 15.1 x10^3/uL (1.8-7.7); NEUT % 94 % (31-73); PLATELET COUNT 246 x10^3/uL (140-400); RED BLOOD COUNT 2.69 x10^6/uL (3.50-5.40); RED CELL DISTRIBUTION WIDTH 17.2 % (11.5-14.5)
[2021-11-03 08:58] LABS: CALCIUM 8.2 mg/dL (8.5-10.1); GFR 55.3; POTASSIUM 4.3 mmol/L (3.5-5.1)
[2021-11-03] MEDS: FLUTICASONE/VILANTEROL 100/25 INHALER. INH SCH (09:40)
[2021-11-03 11:05] VITALS: BP 107/40
--- NOTE | 2021-11-03 12:57 | PDOC2 ---
FRANCO CARLSON CASE SEALER 11/03/21 1257: CONSULT Date of Consult Date of Consult DATE: 11/03/21 TIME: 12:54 Reason for Consult Reason for Consult: rectal bleeding, internal hemorrhoids Referring Physician Referring Physician: Dr Parra Identification/Chief Complaint Chief Complaint SOA Source Source: Chart review, Patient History of Present Illness Reason for Visit: Here do to issues with COPD. has been having trouble with rectal bleeding, anemia for couple months. Seen hematology, iron, blood transfusion. Colonoscopy in Dec, reports internal hemorrhoids. Since here more rectal bleeding. Occasional lower abdominal pain does take plavix Past Medical History Cardiovascular: CHF Pulmonary: COPD CENTRAL NERVOUS SYSTEM: Other GI: No pertinent hx Heme/Onc: No pertinent hx Hepatobiliary: No pertinent hx Psych: No pertinent hx Musculoskeletal: Osteoarthritis Rheumatologic: No pertinent hx Infectious disease: No pertinent hx Renal/: Chronic renal insuff Endocrine: Diabetes, Hypothyroidism Past Surgical History Past Surgical History: Pacemaker Family History Family History: No Significant, Heart Disease Social History ALCOHOL: none Drugs: None Lives: with Family Current Medications Current Medications Current Medications Dexamethasone Sodium Phosphate (Decadron) 10 mg 1X ONCE IV Last administered on 10/27/21at 22:07; Start 10/27/21 at 21:00; Stop 10/27/21 at 21:01; Status DC Ondansetron HCl (Zofran) 4 mg PRN Q8HRS PRN IVP NAUSEA/VOMITING; Start 10/28/21 at 00:15; Stop 10/29/21 at 00:14; Status DC Morphine Sulfate (Morphine Sulfate) 2 mg PRN Q2HR PRN IVP PAIN Last administered on 10/28/21at 15:28; Start 10/28/21 at 00:15; Stop 10/29/21 at 00:14; Status DC Acetaminophen (Tylenol) 650 mg PRN Q4HRS PRN PO FEVER > 100.3'F Last administered on 10/28/21at 22:52; Start 10/28/21 at 00:15; Stop 10/29/21 at 00:14; Status DC Albuterol/ Ipratropium (Duoneb) 3 ml RTQID NEB ; Start 10/28/21 at 08:00; Stop 10/28/21 at 14:20; Status DC Albuterol Sulfate (Ventolin Hfa) 2 puff PRN QID PRN INH SOA; Start 10/28/21 at 04:01 Magnesium Sulfate 50 ml @ 25 mls/hr 1X ONCE IV Last administered on 10/28/21at 11:03; Start 10/28/21 at 10:00; Stop 10/28/21 at 11:59; Status DC Allopurinol (Zyloprim) 300 mg DAILY PO Last administered on 11/03/21at 08:24; Start 10/28/21 at 15:00 Amitriptyline HCl (Elavil) 25 mg QHS PO Last administered on 11/02/21at 21:03; Start 10/28/21 at 21:00 Atorvastatin Calcium (Lipitor) 20 mg QHS PO Last administered on 11/02/21 21:03; Start 10/28/21 at 21:00 Clopidogrel Bisulfate (Plavix) 75 mg DAILY PO Last administered on 11/03/21 08:24; Start 10/28/21 at 15:00 Gabapentin (Neurontin) 100 mg TID PO Last administered on 11/03/21at 08:24; Start 10/28/21 at 14:00 Albuterol/ Ipratropium (Duoneb) 3 ml Q4HRS NEB Last administered on 11/03/21at 11:13; Start 10/28/21 at 16:00 Levothyroxine Sodium (Synthroid) 50 mcg DAILY06 PO Last administered on 11/03at 06:35; Start 10/28/21 at 15:00 Methocarbamol (Robaxin) 1,000 mg PRN BID PRN PO muscle relaxer; Start 10/28/21 at 14:00 Montelukast Sodium (Singulair) 10 mg QHS PO Last administered on 11/02/21at 21:03; Start 10/28/21 at 21:00 Roflumilast (Daliresp) 500 mcg DAILY PO Last administered on 11/03/21 08:24; Start 10/28/21 at 15:00 Ropinirole HCl (Requip) 3 mg QHS PO Last administered on 11/02/21at 21:03; Start 10/28/21 at 21:00 Torsemide (Demadex) 40 mg DAILY PO Last administered on 11/03/21 08:24; Start 10/28/21 at 15:00 Pantoprazole Sodium (Protonix) 40 mg DAILYAC PO Last administered on 11/03/21at 06:35; Start 10/28/21 at 15:00 Methylprednisolone Sodium Succinate (SOLU-Medrol 40MG VIAL) 40 mg Q8HRS IV Last administered on 11/03/21at 06:35; Start 10/28/21 at 14:30 Albuterol Sulfate (Ventolin Neb Soln) 2.5 mg PRN Q6HRS PRN INH SHORTNESS OF BREATH; Start 10/29/21 at 11:15 Vitamin D (Vitamin D3) 1,000 unit DAILY PO Last administered on 11/03/21at 08:24; Start 10/29/21 at 12:00 Diclofenac Sodium (Voltaren) 20 rosa elena [id number] PRN TP PAIN; Start 10/29/21 at 11:15 Ferrous Sulfate (Feosol) 325 mg DAILY PO Last administered on 11/03/21at 08:24; Start 10/29/21 at 12:00 Metoprolol Succinate (Toprol Xl) 25 mg DAILY PO Last administered on 11/01/21at 13:22; Start 10/29/21 at 12:00 Spironolactone (Aldactone) 25 mg DAILY PO Last administered on 11/03/21at 08:24; Start 10/29/21 at 12:00 Non-Formulary Medication (Alendronate Sodium ) 1 tab WEEKLY PO ; Start 11/05/21 at 09:00; Status UNV Fluticasone/ Vilanterol (Breo Ellipta 100-25 Mcg) 1 puff DAILY INH Last administered on 11/03/21at 09:40; Start 10/29/21 at 12:00 Cetirizine HCl (ZyrTEC) 5 mg DAILY PO Last administered on 11/03/21at 08:23; Start 10/30/21 at 09:00 Potassium Chloride (Klor-Con) 20 meq DAILYWBKFT PO Last administered on 11/03/21at 08:23; Start 10/29/21 at 12:00 Aspirin (Aspirin Chewable) 81 mg DAILYWBKFT PO Last administered on 11/03/21at 08:24; Start 10/29/21 at 12:00 Acetaminophen (Tylenol) 650 mg PRN Q6HRS PRN PO MILD PAIN / TEMP > 100.3'F Last administered on 11/01/21at 20:16; Start 10/30/21 at 08:45 Throat Lozenges (Cepacol Sore Throat Lozenge) 1 venancio PRN Q2HRS PRN PO SORE THROAT Last administered on 11/01/21at 20:16; Start 10/31/21 at 10:00 Guaifenesin/ Codeine Phosphate (Robitussin Ac) 5 ml PRN Q6HRS PRN PO COUGH Last administered on 11/02/21at 05:58; Start 10/31/21 at 14:30 Active Scripts Active Doxycycline Hyclate 100 Mg Capsule 1 Cap PO BID Medrol (Methylprednisolone) 4 Mg Tab.ds.pk 1 Pkg PO UD Entresto 24 mg-26 mg Tablet (Sacubitril/Valsartan) 1 Each Tablet 1 Each PO BID 30 Days Duoneb 0.5-3(2.5) Mg/3 Ml (Albuterol/Ipratropium) 3 Ml Ampul.neb 3 Ml NEB Q4HRS 14 Days Reported Ferrous Sulfate 325 Mg Tablet 1 Tab PO DAILY Clopidogrel (Clopidogrel Bisulfate) 75 Mg Tablet 1 Tab PO DAILY Spironolactone 25 Mg Tablet 25 Mg PO DAILY Metoprolol Succinate ( Xl ) (Metoprolol Succinate) 25 Mg Tab.er.24h 25 Mg PO DAILY Voltaren Arthritis Pain (Diclofenac Sodium) 20 Gm Gel..gram. 20 Gm TP PRN PRN Gabapentin (Gabapentin) 100 Mg Capsule 100 Mg PO TID Alendronate Sodium 70 Mg Tablet 1 Tab PO WEEKLY Allopurinol 300 Mg Tablet 1 Tab PO DAILY Trelegy Ellipta 100-62.5-25 (Fluticasone/Umeclidin/Vilanter) 1 Each Blst.w.dev 1 Each IH DAILY Prilosec Otc (Omeprazole Magnesium) 20 Mg Tablet.dr 40 Mg PO DAILY K-Tab ER (Potassium Chloride) 20 Meq Tablet.er 20 Meq PO DAILY Montelukast Sodium Tablet (Montelukast Sodium) 10 Mg Tablet 10 Mg PO HS Levocetirizine Dihydrochloride 5 Mg Tablet 5 Mg PO DAILY Amitriptyline Hcl 25 Mg Tablet 25 Mg PO QHS Vitamin D3 (Cholecalciferol (Vitamin D3)) 1,000 Unit Tablet 1 Tab PO DAILY Torsemide 20 Mg Tablet 2 Tab PO DAILY Daliresp (Roflumilast) 500 Mcg Tablet 1 Tab PO DAILY Atorvastatin Calcium 20 Mg Tablet 20 Mg PO HS Requip (Ropinirole Hcl) 1 Mg Tablet 3 Tab PO QHS Proair Hfa Inhaler (Albuterol Sulfate) 8.5 Gm Hfa.aer.ad 1 Puff INH PRN Q6HRS PRN Levothyroxine Sodium 50 Mcg Tablet 1 Tab PO DAILY Allergies Allergies: Coded Allergies: ibuprofen (Verified Allergy, Severe, Swelling, 09/30/21) naproxen (Verified Allergy, Severe, Shortness of Air, 09/30/21) tolerates asa piperacillin (Verified Allergy, Severe, Swelling, 09/30/21) Tolerated cefepime tazobactam (Verified Allergy, Severe, Swelling, 09/30/21) fentanyl (Verified Adverse Reaction, Severe, agitation, 09/30/21) violent behavior ROS General: No: Chills, Other (fevers) PSYCHOLOGICAL ROS: No: Anxiety, Depression Eyes: No Blurry vision, No Double vision HEENT: No: Heacaches, Sore Throat Hematological and Lymphatic: YES: Bleeding Problems; No: Blood Clots Respiratory: YES: Shortness of breath, SOB with excertion; No: Cough Cardiovascular: No Chest Pain, No Palpitations Gastrointestinal: Yes Other (see hpi) Genitourinary: No Dysuria, No Retention Musculoskeletal: No Joint Pain, No Muscle Pain Neurological: No Impaired Coord/balance, No Numbness/Tingling Skin: No Pruritus, No Rash Physical Exam General: Alert, Oriented X3, Cooperative HEENT: Atraumatic, PERRLA Lungs: Clear to auscultation, Normal air movement Heart: Regular rate, Normal S1, Normal S2 Abdomen: Soft, Other (mild ttp lower abdomen ) Extremities: No clubbing, No cyanosis Skin: No rashes, No breakdown Neuro: Normal gait, Normal speech Psych/Mental Status: Mental status NL, Mood NL MUSCULOSKELETAL: No deformity, No swelling Vitals VITALS Vital Signs Date Time Temp Pulse Resp B/P (MAP) Pulse Ox O2 Delivery O2 Flow Rate FiO2 11/03/21 11:14 Nasal Cannula 3.0 11/03/21 11:05 98.2 90 20 107/40 (62) 100 98.2 Labs Labs Laboratory Tests Test 11/02/21 15:00 11/03/21 08:00 SARS-CoV-2 RNA (GUDELIA) Negative (Negative) White Blood Count 16.0 x10^3/uL (4.0-11.0) Red Blood Count 2.69 x10^6/uL (3.50-5.40) Hemoglobin 7.8 g/dL (12.0-15.5) Hematocrit 24.8 % (36.0-47.0) Mean Corpuscular Volume 92 fL (79-100) Mean Corpuscular Hemoglobin 29 pg (25-35) Mean Corpuscular Hemoglobin Concent 31 g/dL (31-37) Red Cell Distribution Width 17.2 % (11.5-14.5) Platelet Count 246 x10^3/uL (140-400) Neutrophils (%) (Auto) 94 % (31-73) Lymphocytes (%) (Auto) 3 % (24-48) Monocytes (%) (Auto) 3 % (0-9) Eosinophils (%) (Auto) 0 % (0-3) Basophils (%) (Auto) 0 % (0-3) Neutrophils # (Auto) 15.1 x10^3/uL (1.8-7.7) Lymphocytes # (Auto) 0.4 x10^3/uL (1.0-4.8) Monocytes # (Auto) 0.5 x10^3/uL (0.0-1.1) Eosinophils # (Auto) 0.0 x10^3/uL (0.0-0.7) Basophils # (Auto) 0.0 x10^3/uL (0.0-0.2) Sodium Level 136 mmol/L (136-145) Potassium Level 4.3 mmol/L (3.5-5.1) Chloride Level 96 mmol/L (98-107) Carbon Dioxide Level 40 mmol/L (21-32) Anion Gap 0 (6-14) Blood Urea Nitrogen 30 mg/dL (7-20) Creatinine 1.0 mg/dL (0.6-1.0) Estimated GFR (Cockcroft-Gault) 55.3 Glucose Level 171 mg/dL (70-99) Calcium Level 8.2 mg/dL (8.5-10.1) Laboratory Tests Test 11/02/21 15:00 11/03/21 08:00 SARS-CoV-2 RNA (GUDELIA) Negative (Negative) White Blood Count 16.0 x10^3/uL (4.0-11.0) Red Blood Count 2.69 x10^6/uL (3.50-5.40) Hemoglobin 7.8 g/dL (12.0-15.5) Hematocrit 24.8 % (36.0-47.0) Mean Corpuscular Volume 92 fL (79-100) Mean Corpuscular Hemoglobin 29 pg (25-35) Mean Corpuscular Hemoglobin Concent 31 g/dL (31-37) Red Cell Distribution Width 17.2 % (11.5-14.5) Platelet Count 246 x10^3/uL (140-400) Neutrophils (%) (Auto) 94 % (31-73) Lymphocytes (%) (Auto) 3 % (24-48) Monocytes (%) (Auto) 3 % (0-9) Eosinophils (%) (Auto) 0 % (0-3) Basophils (%) (Auto) 0 % (0-3) Neutrophils # (Auto) 15.1 x10^3/uL (1.8-7.7) Lymphocytes # (Auto) 0.4 x10^3/uL (1.0-4.8) Monocytes # (Auto) 0.5 x10^3/uL (0.0-1.1) Eosinophils # (Auto) 0.0 x10^3/uL (0.0-0.7) Basophils # (Auto) 0.0 x10^3/uL (0.0-0.2) Sodium Level 136 mmol/L (136-145) Potassium Level 4.3 mmol/L (3.5-5.1) Chloride Level 96 mmol/L (98-107) Carbon Dioxide Level 40 mmol/L (21-32) Anion Gap 0 (6-14) Blood Urea Nitrogen 30 mg/dL (7-20) Creatinine 1.0 mg/dL (0.6-1.0) Estimated GFR (Cockcroft-Gault) 55.3 Glucose Level 171 mg/dL (70-99) Calcium Level 8.2 mg/dL (8.5-10.1) Assessment/Plan Assessment/Plan COPD anemia, anticoagulant use, rectal bleeding, internal hemorrhoids will ask GI to evaluate will follow CAMILA GEE MD 11/04/21 1227: CONSULT Assessment/Plan Assessment/Plan Patient on anticoagulation with rectal bleeding review GIs notes. Agree with Helen assessment and plan. Currently H&H stable FRANCO CARLSON APRN Nov 03, 2021 12:57 CAMILA GEE MD Nov 04, 2021 12:27
--- NOTE | 2021-11-03 13:32 | PDOC2 ---
GI CONSULT Date of Service: DATE: 11/03/21 TIME: 13:09 Reason For Consult: internal hemorrhoids, abdominal pain, anemia HPI: HPI: 66 y/o female admitted 10/28/21 w/ COPD exacerbation. Began passing bright red blood w/ brown stool on Tuesday (10/31/21). Worse/more everyday since. Now "fills the toilet like red matthew aid" - says 4 times today. Associated w/ lower abdominal discomfort after stooling and sometimes randomly. Chronic anemia on iron. Says has required 5 unit pRBCs since 01/2021. Has had several episodes of similar bleeding at home - not associated w/ abdominal pain, diarrhea, constipation, or rectal pain (though does occasionally feeling a "knot" inside rectum, unrelated to stooling/bleeding). Additionally reports not infrequent episodes of feeling dizzy/sweating when standing. Long h/o GERD controlled w/ Prilosec QD. No dysphagia, n/v, change in appetite, weight loss, diarrhea, or constipation. Yesterday had a "black" stool (but today brown). Previously reported EGD and colonoscopy >10 years ago w/ Dr. Kimble. CT in 04/2021 noted mild diffuse gastric wall thickening along the greater curvature of the stomach without focal mass and diverticula in the first portion of the duodenum. Colonoscopy for DAYANA by Dr. Oliveira on 09/30/21 showed 7mm adenomatous polyp in transverse colon, sigmoid diverticulosis, and non-bleeding internal hemorrhoids. S/p cholecystectomy for stones. No liver, pancreas, or PUD history. H/o A Fib on Plavix and ASA. Iron profile c/w ACD in 09/2021, B12 normal (406) in 08/2021. Cortisol normal in 2017, TSH normal 07/2021, ferritin elevated 10/2021, haptoglobin elevated 08/2021. PMH: PMH: A Fib, CHF, HTN, HLD, NICM, COPD, pulm HTN, RLS, OA, osteoporosis, gout, DM, CKD, hypothyroidism, pulmonary nodules, anxiety, depression pacemaker/defib, left shoulder arthroscopy, total hysterectomy, cholecystectomy, lung biopsies (no malignancy), cardiac cath, Watchman FH: Family History: No pertinent hx Social History: Smoke: Quit ALCOHOL: none Drugs: None ROS: GEN: +sweats HEENT: Denies blurred vision, sore throat CV: Denies chest pain RESP: +SOA +cough GI: Per HPI : Denies hematuria, dysuria ENDO: Denies weight changes NEURO: +dizziness MSK: +weakness SKIN: Denies jaundice, pruritus Vitals: Vitals: Vital Signs Date Time Temp Pulse Resp B/P (MAP) Pulse Ox O2 Delivery O2 Flow Rate FiO2 11/03/21 11:14 Nasal Cannula 3.0 11/03/21 11:05 98.2 90 20 107/40 (62) 100 98.2 Labs: Labs: Laboratory Tests Test 11/02/21 15:00 11/03/21 08:00 SARS-CoV-2 RNA (GUDELIA) Negative (Negative) White Blood Count 16.0 x10^3/uL (4.0-11.0) Red Blood Count 2.69 x10^6/uL (3.50-5.40) Hemoglobin 7.8 g/dL (12.0-15.5) Hematocrit 24.8 % (36.0-47.0) Mean Corpuscular Volume 92 fL (79-100) Mean Corpuscular Hemoglobin 29 pg (25-35) Mean Corpuscular Hemoglobin Concent 31 g/dL (31-37) Red Cell Distribution Width 17.2 % (11.5-14.5) Platelet Count 246 x10^3/uL (140-400) Neutrophils (%) (Auto) 94 % (31-73) Lymphocytes (%) (Auto) 3 % (24-48) Monocytes (%) (Auto) 3 % (0-9) Eosinophils (%) (Auto) 0 % (0-3) Basophils (%) (Auto) 0 % (0-3) Neutrophils # (Auto) 15.1 x10^3/uL (1.8-7.7) Lymphocytes # (Auto) 0.4 x10^3/uL (1.0-4.8) Monocytes # (Auto) 0.5 x10^3/uL (0.0-1.1) Eosinophils # (Auto) 0.0 x10^3/uL (0.0-0.7) Basophils # (Auto) 0.0 x10^3/uL (0.0-0.2) Sodium Level 136 mmol/L (136-145) Potassium Level 4.3 mmol/L (3.5-5.1) Chloride Level 96 mmol/L (98-107) Carbon Dioxide Level 40 mmol/L (21-32) Anion Gap 0 (6-14) Blood Urea Nitrogen 30 mg/dL (7-20) Creatinine 1.0 mg/dL (0.6-1.0) Estimated GFR (Cockcroft-Gault) 55.3 Glucose Level 171 mg/dL (70-99) Calcium Level 8.2 mg/dL (8.5-10.1) Allergies: Coded Allergies: ibuprofen (Verified Allergy, Severe, Swelling, 09/30/21) naproxen (Verified Allergy, Severe, Shortness of Air, 09/30/21) tolerates asa piperacillin (Verified Allergy, Severe, Swelling, 09/30/21) Tolerated cefepime tazobactam (Verified Allergy, Severe, Swelling, 09/30/21) fentanyl (Verified Adverse Reaction, Severe, agitation, 09/30/21) violent behavior Medications: please see [facility] Imaging: Imaging: CXR 10/31 IMPRESSION: 1. Stable diffuse interstitial infiltrate superimposed on chronic interstitial changes. 2. Small right upper lobe pulmonary nodule, likely corresponding with a nodule demonstrated on the prior PET/CT dated 09/18/2021. There are multiple additional pulmonary nodules on the prior PET/CT which are not well seen radiographically due to size. Please refer to the prior PET/CT report. PE: GEN: NAD HEENT: Atraumatic, PERRL LUNGS: diminished, wet cough, coarse, NC 3L HEART: RRR ABD: NABS, S/ND, LLQ to suprapubic discomfort - less so RLQ EXTREMITY: No edema SKIN: No rashes, no jaundice NEURO/PSYCH: A & O 3 A/P: A/P: COPD exacerbation Hematochezia - apparently recurrent Lower abdominal pain Chronic anemia - requiring transfusions recently, on iron at home GERD - on PPI CRC screen, h/o adenomatous polyp - UTD (09/2021) Diverticulosis, hemorrhoids S/p cholecystectomy H/o A Fib on Plavix and ASA - still receiving here -- Pt seen w/ Dr. Oliveira this afternoon. Bleeding possibly related to hemorrhoids - try suppository, monitor bleeding and labs. Continue PPI and iron. Does have some lower abdominal pain - consider imaging. SOPHIE DUPONT Nov 03, 2021 13:32
--- NOTE | 2021-11-03 13:36 | PDOC ---
[employer] PROGRESS NOTE Date of Service DOS: DATE: 11/03/21 TIME: 13:34 Chief Complaint Chief Complaint shortness of breath, acute exacerbation of COPD acute on chronic respiratory failure, chronic hypoxia history of diabetes type 2, hypertension, high cholesterol, CHF, CAD symptomatic anemia on this admit, 1 u prbc given History of Present Illness History of Present Illness 11/03, again reports bright red blood per rectum has known internal roids will consult gen surg PT went well, she would like to go to rehab 11/02, she reports bloody stool x1 this AM, bright red blood, anemia on admit, breathign OK, but feels abd bloated, and abd is larger than her usual. she would also like to DC to [facility], she feels that home health doesnt help much, only comes once per week, 11/01/21: Patient seen and examined Patient on 3L NC, and wheezing more audibly than yesterday Chart reviewed Discussed with RN 10/31/21 Patient seen and examined at bedside. Patient lying comfortably on 2L NC and in no apparent distress Chart reviewed Discussed with RN 10/30/21: Patient seen and examined Chart reviewed Discussed with RN Patient lying in bed comfortable on 3L NC and in no apparent distress Hemoglobin post transfusion 7.8 today up from 6.8 yesterday 10/29/21 Patient seen and examined Chart reviewed Discussed with RN Hemoglobin 6.8 Patient is short of breath with some audible wheezing Patient laying in bed comfortably in n apparent distress Patient endorsed an occasional black tarry stool. 66 year old female with a history of diabetes type 2, hypertension, high cholesterol, COPD, oxygen dependent at 3 L continuously, CHF, CAD, who presents the ED yesterday to be evaluated for cough and shortness of breath that has been going on for 3 days. Patient states she used her breathing treatments prior to coming to the ED. Vitals/I&O Vitals/I&O: Vital Signs Date Time Temp Pulse Resp B/P (MAP) Pulse Ox O2 Delivery O2 Flow Rate FiO2 11/03/21 11:14 Nasal Cannula 3.0 11/03/21 11:05 98.2 90 20 107/40 (62) 100 98.2 I & O 11/02/21 11/02/21 11/03/21 15:00 23:00 07:00 Intake Total 480 ml Balance 480 ml Physical Exam General: Alert, Oriented X3, Cooperative Heart: Regular rate, Normal S1, Normal S2 Lungs: Wheezing, Crackles Abdomen: Soft, Other (mild ttp lower abdomen ) Extremities: No clubbing, No cyanosis Skin: No rashes, No breakdown Labs Labs: Laboratory Tests Test 11/02/21 15:00 11/03/21 08:00 SARS-CoV-2 RNA (GUDELIA) Negative (Negative) White Blood Count 16.0 x10^3/uL (4.0-11.0) Red Blood Count 2.69 x10^6/uL (3.50-5.40) Hemoglobin 7.8 g/dL (12.0-15.5) Hematocrit 24.8 % (36.0-47.0) Mean Corpuscular Volume 92 fL (79-100) Mean Corpuscular Hemoglobin 29 pg (25-35) Mean Corpuscular Hemoglobin Concent 31 g/dL (31-37) Red Cell Distribution Width 17.2 % (11.5-14.5) Platelet Count 246 x10^3/uL (140-400) Neutrophils (%) (Auto) 94 % (31-73) Lymphocytes (%) (Auto) 3 % (24-48) Monocytes (%) (Auto) 3 % (0-9) Eosinophils (%) (Auto) 0 % (0-3) Basophils (%) (Auto) 0 % (0-3) Neutrophils # (Auto) 15.1 x10^3/uL (1.8-7.7) Lymphocytes # (Auto) 0.4 x10^3/uL (1.0-4.8) Monocytes # (Auto) 0.5 x10^3/uL (0.0-1.1) Eosinophils # (Auto) 0.0 x10^3/uL (0.0-0.7) Basophils # (Auto) 0.0 x10^3/uL (0.0-0.2) Sodium Level 136 mmol/L (136-145) Potassium Level 4.3 mmol/L (3.5-5.1) Chloride Level 96 mmol/L (98-107) Carbon Dioxide Level 40 mmol/L (21-32) Anion Gap 0 (6-14) Blood Urea Nitrogen 30 mg/dL (7-20) Creatinine 1.0 mg/dL (0.6-1.0) Estimated GFR (Cockcroft-Gault) 55.3 Glucose Level 171 mg/dL (70-99) Calcium Level 8.2 mg/dL (8.5-10.1) Comment Review of Relevant I have reviewed the following items jon (where applicable) has been applied. Justifications for Admission Other Justification COPD exacerbation DEMETRA BABIN MD Nov 03, 2021 13:36
[2021-11-03 15:07] VITALS: BP 114/50
[2021-11-03 19:20] VITALS: BP 108/54
[2021-11-03] MEDS: ATORVASTATIN CALCIUM 20 MG TABLET PO SCH (20:56)
[2021-11-03] MEDS: AMITRIPTYLINE HCL 25 MG TABLET. PO SCH (20:56)
[2021-11-03] MEDS: rOPINIRole 1 MG TABLET. PO SCH (20:56)
[2021-11-03] MEDS: HYDROCORTISONE ACETATE 25 MG SUPP.RECT PR SCH (20:57)
[2021-11-03] MEDS: MONTELUKAST SODIUM 10 MG TABLET. PO SCH (21:02)
[2021-11-03 23:19] VITALS: BP 103/44
[2021-11-04] MEDS: IPRATRPIUM/ALBUTEROL 0.5/2.5MG 3 ML NEBU. NEB SCH ×5 (00:40→16:55)
[2021-11-04 03:05] VITALS: BP 117/51
[2021-11-04] MEDS: methylPREDNISolone SOD SUCC PF 40 MG/ML VIAL. IV SCH ×2 (05:39→16:05)
[2021-11-04] MEDS: LEVOTHYROXINE 50 MCG TABLET PO SCH (05:39)
[2021-11-04] MEDS: PANTOPRAZOLE 40 MG TABLET.DR. PO SCH (05:40)
[2021-11-04 07:05] LABS: HEMATOCRIT 23.4 % (36.0-47.0); HEMOGLOBIN 7.5 g/dL (12.0-15.5); RED BLOOD COUNT 2.54 x10^6/uL (3.50-5.40); RED CELL DISTRIBUTION WIDTH 17.6 % (11.5-14.5)
[2021-11-04 07:15] VITALS: BP 125/59
[2021-11-04] MEDS: ALLOPURINOL 300 MG TABLET. PO SCH (09:03)
[2021-11-04] MEDS: ASPIRIN CHEWABLE 81 MG TABLET. PO SCH (09:03)
[2021-11-04] MEDS: ROFLUMILAST 500 MCG TABLET. PO SCH (09:04)
[2021-11-04] MEDS: TORSEMIDE 20 MG TABLET. PO SCH (09:04)
[2021-11-04] MEDS: FERROUS SULFATE 325 MG TABLET. PO SCH (09:04)
[2021-11-04] MEDS: CLOPIDOGREL BISULFATE 75 MG TABLET PO SCH (09:04)
[2021-11-04] MEDS: METOPROLOL SUCC 24HR ER 25 MG TAB.ER.24H. PO SCH (09:04)
[2021-11-04] MEDS: FLUTICASONE/VILANTEROL 100/25 INHALER. INH SCH (09:04)
[2021-11-04] MEDS: GABAPENTIN 100 MG CAPSULE. PO SCH ×2 (09:04→16:04)
[2021-11-04] MEDS: CHOLECALCIFEROL (VITAMIN D3) 1,000 UNIT TABLET PO SCH (09:04)
[2021-11-04] MEDS: POTASSIUM CHLORIDE 20 MEQ TABLET.ER. PO SCH (09:04)
[2021-11-04] MEDS: SPIRONOLACTONE 25 MG TABLET PO SCH (09:04)
[2021-11-04] MEDS: CETIRIZINE HCL 10 MG TABLET. PO SCH (09:05)
[2021-11-04] MEDS: HYDROCORTISONE ACETATE 25 MG SUPP.RECT PR SCH (10:23)
[2021-11-04 11:17] VITALS: BP 110/49
[2021-11-04] MEDS ORDERED: SIMETHICONE 80 MG TAB.CHEW PO PRN (11:30)
[2021-11-04] MEDS ORDERED: GUAI120L35 PO (13:07)
[2021-11-04] MEDS ORDERED: PRED-220 PO ×2 (13:07→13:12)
[2021-11-04] MEDS ORDERED: DOXY100C3 PO ×2 (13:07→13:12)
--- NOTE | 2021-11-04 13:14 | SNU/HH DC ---
DISCHARGE WITH HOME HEALTH DISCHARGE INFORMATION: Discharge Date: Nov 04, 2021 Final Diagnosis: shortness of breath, acute exacerbation of COPD acute on chronic respiratory failure, chronic hypoxia history of diabetes type 2, hypertension, high cholesterol, CHF, CAD symptomatic anemia on this admit, 1 u prbc given, BRBPR weakness and debility Condition on Discharge: Stable CODE STATUS: Code Status: Full HOME HEALTH: Face to Face: I certify this patient is under my care and that I, or a nurse practitioner or physician's veterinarian assistant working with me, had a face to face encounter that meets t he physician face to face encounter requirements with this patient on []. Medical Complications: COPD Senior Living For: Assess/Skilled Observatio, Medication Management RN For Eval/Treatment: Yes Physical Therapy For: Evalulation/Treatment Occupational Therapy For: Evaluation/Treatment Pt Meets Homebound Status: Unsteady balance w/ amb,, Limited distance walking POST DISCHARGE ORDERS: Activity Instructions for Disc: Activity as tolerated Weight Bearing Status after Di: No restrictions Bathing Instructions: No Tub Bath until see Dr. CABA AFTER DISCHARGE: Cardiac Wound/Incision Care: Ice to area for comfort, Change dressing, May get incision wet CHECKS AFTER DISCHARGE: Checks after discharge: Check blood press - daily, Check your Temp as needed FOLLOW-UP: Follow up with: primary care TREATMENT/EQUIPMENT ORDERS: Adaptive Equipment Issued: None Discharge Respiratory Equipmen: Oxygen CERTIFICATION STATEMENT: Certification Statement: Certification Statement: Based on the above finding, I certify that this patient is confined to the home and needs intermittent fpc care, physical therapy and/or speech therapy, or continues to need occupational therapy.~ This patient is under my care, and I have initiated the establishment of the plan of care.~ This patient will be followed by myself or a community physician who will periodically review the plan of care. Home Meds Active Scripts Prednisone (PREDNISONE ) 10 Mg Tablet, 10 MG PO UD for COPD, #50 TAB 0 Refills Take 5 tablets by mouth daily for 6 days, then take 4 tablets by mouth daily for 2 days, then take 3 tablets by mouth daily for 2 days, then take 2 tablets by mouth daily for 2 days, then take 1 tablets by mouth daily for 2 days, then stop. Prov:DEMETRA BABIN MD 11/04/21 Doxycycline Hyclate (DOXYCYCLINE HYCLATE) 100 Mg Capsule, 1 CAP PO BID for COPD, #14 CAP Prov:DEMETRA BABIN MD 11/04/21 Guaifenesin/Codeine Phosphate (Codeine-Guaifen 10-100 mg/5 ml) 120 Ml Liquid, 5 ML PO PRN Q6HRS PRN for COUGH, #100 ML Prov:DEMETRA BABIN MD 11/04/21 Sacubitril/Valsartan (Entresto 24 mg-26 mg Tablet) 1 Each Tablet, 1 EACH PO BID for chf for 30 Days, #60 TAB 2 Refills Prov:KJ LORA COIL BINDER 11/19/20 Ipratropium/Albuterol Sulfate (DUONEB 0.5-3(2.5) MG/3 ML) 3 Ml Ampul.neb, 3 ML NEB Q4HRS for WHEEZING, COUGH for 14 Days, #84 EACH Prov:PHONG YEBOAH MD 10/22/19 Reported Medications Ferrous Sulfate (FERROUS SULFATE) 325 Mg Tablet, 1 TAB PO DAILY for supplement, #30 TAB 3 Refills 07/26/21 Clopidogrel Bisulfate (CLOPIDOGREL) 75 Mg Tablet, 1 TAB PO DAILY for rx, #90 TAB 1 Refill 07/20/21 Spironolactone (SPIRONOLACTONE) 25 Mg Tablet, 25 MG PO DAILY for , TAB 05/19/21 Metoprolol Succinate (METOPROLOL SUCCINATE ( XL )) 25 Mg Tab.er.24h, 25 MG PO DAILY for FOR HYPERTENSION, #30 TAB 0 Refills 05/19/21 Diclofenac Sodium (Voltaren Arthritis Pain) 20 Gm Gel..gram., 20 GM TP PRN PRN for PAIN, EACH 05/19/21 Gabapentin (GABAPENTIN ) 100 Mg Capsule, 100 MG PO TID for NEUROGENIC PAIN, CAP 10/18/20 Alendronate Sodium (ALENDRONATE SODIUM) 70 Mg Tablet, 1 TAB PO WEEKLY for 10/16/20 Allopurinol (ALLOPURINOL) 300 Mg Tablet, 1 TAB PO DAILY for gout 10/16/20 Fluticasone/Umeclidin/Vilanter (Trelegy Ellipta 100-62.5-25) 1 Each Blst.w.dev, 1 EACH IH DAILY for rx 03/17/20 Omeprazole Magnesium (PRILOSEC OTC) 20 Mg Tablet.dr, 40 MG PO DAILY for rx, TAB 03/17/20 Potassium Chloride (K-Tab ER) 20 Meq Tablet.er, 20 MEQ PO DAILY for hypokalemia 07/30/19 Montelukast Sodium (MONTELUKAST SODIUM TABLET ) 10 Mg Tablet, 10 MG PO HS for FOR ASTHMA, TAB 0 Refills 07/29/19 Levocetirizine Dihydrochloride (LEVOCETIRIZINE DIHYDROCHLORIDE) 5 Mg Tablet, 5 MG PO DAILY for allergies, TAB 07/29/19 Amitriptyline Hcl (AMITRIPTYLINE HCL) 25 Mg Tablet, 25 MG PO QHS for nerve pain, TAB 07/29/19 Cholecalciferol (Vitamin D3) (VITAMIN D3) 1,000 Unit Tablet, 1 TAB PO DAILY, #30 TAB 5 Refills 01/02/18 Torsemide (TORSEMIDE) 20 Mg Tablet, 2 TAB PO DAILY for , #90 TAB 1 Refill 01/02/18 Roflumilast (DALIRESP) 500 Mcg Tablet, 1 TAB PO DAILY, #90 TAB 3 Refills 09/23/17 Atorvastatin Calcium (ATORVASTATIN CALCIUM) 20 Mg Tablet, 20 MG PO HS for FOR CHOLESTEROL, #30 TAB 0 Refills 09/23/17 Ropinirole Hcl (REQUIP) 1 Mg Tablet, 3 TAB PO QHS, #30 TAB 2 Refills 09/23/17 Albuterol Sulfate (PROAIR HFA INHALER) 8.5 Gm Hfa.aer.ad, 1 PUFF INH PRN Q6HRS PRN for SHORTNESS OF BREATH, INHALER 0 Refills 09/23/17 Levothyroxine Sodium (LEVOTHYROXINE SODIUM) 50 Mcg Tablet, 1 TAB PO DAILY, #30 TAB 5 Refills 09/23/17 Discontinued Reported Medications Sucralfate (SUCRALFATE) 1 Gm Tablet, 1 TAB PO QID for gerd, #120 TAB 3 Refills 07/26/21 Methocarbamol (METHOCARBAMOL) 500 Mg Tablet, 1000 MG PO PRN BID PRN for muscle relaxer, TAB 05/25/21 Discontinued Scripts Doxycycline Hyclate (DOXYCYCLINE HYCLATE) 100 Mg Capsule, 1 CAP PO BID for ., #14 CAP Prov:CASTLE,NIAL K III DO 08/19/21 Methylprednisolone (MEDROL) 4 Mg Tab.ds.pk, 1 PKG PO UD for ., #1 PKG Prov:CASTLE,NIAL K III DO 08/19/21 DEMETRA BABIN MD Nov 04, 2021 13:14
--- NOTE | 2021-11-04 13:19 | PDOC3 ---
Discharge Summary Visit Information Date of Admission: Oct 27, 2021 Date of Discharge: Nov 04, 2021 Final Diagnosis shortness of breath, acute exacerbation of COPD acute on chronic respiratory failure, chronic hypoxia history of diabetes type 2, hypertension, high cholesterol, CHF, CAD symptomatic anemia on this admit, 1 u prbc given BRBPR, internal hemorroids, on plavix for cardiac afib chroinc diastolic CHF weakness, debility, poor ability to walk Brief Hospital Course Allergies Allergies Coded Allergies Type Severity Reaction Last Updated Verified ibuprofen Allergy Severe Swelling 09/30/21 Yes naproxen Allergy Severe Shortness of Air 09/30/21 Yes piperacillin Allergy Severe Swelling 09/30/21 Yes tazobactam Allergy Severe Swelling 09/30/21 Yes fentanyl Adverse Reaction Severe agitation 09/30/21 Yes Vital Signs Vital Signs Date Time Temp Pulse Resp B/P (MAP) Pulse Ox O2 Delivery O2 Flow Rate FiO2 11/04/21 11:17 98.0 96 20 110/49 (69) 99 Nasal Cannula 3.0 98.0 Lab Results Laboratory Tests Test 11/02/21 15:00 11/03/21 08:00 11/04/21 05:50 SARS-CoV-2 RNA (GUDELIA) Negative (Negative) White Blood Count 16.0 x10^3/uL (4.0-11.0) 17.0 x10^3/uL (4.0-11.0) Red Blood Count 2.69 x10^6/uL (3.50-5.40) 2.54 x10^6/uL (3.50-5.40) Hemoglobin 7.8 g/dL (12.0-15.5) 7.5 g/dL (12.0-15.5) Hematocrit 24.8 % (36.0-47.0) 23.4 % (36.0-47.0) Mean Corpuscular Volume 92 fL (79-100) 92 fL (79-100) Mean Corpuscular Hemoglobin 29 pg (25-35) 30 pg (25-35) Mean Corpuscular Hemoglobin Concent 31 g/dL (31-37) 32 g/dL (31-37) Red Cell Distribution Width 17.2 % (11.5-14.5) 17.6 % (11.5-14.5) Platelet Count 246 x10^3/uL (140-400) 203 x10^3/uL (140-400) Neutrophils (%) (Auto) 94 % (31-73) Lymphocytes (%) (Auto) 3 % (24-48) Monocytes (%) (Auto) 3 % (0-9) Eosinophils (%) (Auto) 0 % (0-3) Basophils (%) (Auto) 0 % (0-3) Neutrophils # (Auto) 15.1 x10^3/uL (1.8-7.7) Lymphocytes # (Auto) 0.4 x10^3/uL (1.0-4.8) Monocytes # (Auto) 0.5 x10^3/uL (0.0-1.1) Eosinophils # (Auto) 0.0 x10^3/uL (0.0-0.7) Basophils # (Auto) 0.0 x10^3/uL (0.0-0.2) Sodium Level 136 mmol/L (136-145) Potassium Level 4.3 mmol/L (3.5-5.1) Chloride Level 96 mmol/L (98-107) Carbon Dioxide Level 40 mmol/L (21-32) Anion Gap 0 (6-14) Blood Urea Nitrogen 30 mg/dL (7-20) Creatinine 1.0 mg/dL (0.6-1.0) Estimated GFR (Cockcroft-Gault) 55.3 Glucose Level 171 mg/dL (70-99) Calcium Level 8.2 mg/dL (8.5-10.1) Laboratory Tests Test 11/04/21 05:50 White Blood Count 17.0 x10^3/uL (4.0-11.0) Red Blood Count 2.54 x10^6/uL (3.50-5.40) Hemoglobin 7.5 g/dL (12.0-15.5) Hematocrit 23.4 % (36.0-47.0) Mean Corpuscular Volume 92 fL (79-100) Mean Corpuscular Hemoglobin 30 pg (25-35) Mean Corpuscular Hemoglobin Concent 32 g/dL (31-37) Red Cell Distribution Width 17.6 % (11.5-14.5) Platelet Count 203 x10^3/uL (140-400) Brief Hospital Course Ms. [place] is a 66 old admitted w/ COPD exacerbation. acute on chronic failure, mult admits fo rsame, did have BRBPr, GI and gen surg consult, will follow outpateitn, hgb sta bel breathign btter she was very weak, wanted to DC to Skilled, she walked too far wtihout assist, and did not qualify Discharge Information Condition at Discharge: Improved Follow Up: Weeks Disposition/Orders: D/C to Home w/ HH Scheduled Alendronate Sodium (Alendronate Sodium) 70 Mg Tablet, 1 TAB PO WEEKLY for , (Reported) Entered as Reported by: DAMARIS SÁNCHEZ RN on 10/16/2013 Last Action: Converted on 10/29/21 112 by FRANNIE HERNANDEZ Allopurinol (Allopurinol) 300 Mg Tablet, 1 TAB PO DAILY for gout, (Reported) Entered as Reported by: DAMARIS SÁNCHEZ RN on 10/16/2013 Last Action: Continued on 10/28/21 140 by BRAYAN RAYMOND MD Amitriptyline Hcl (Amitriptyline Hcl) 25 Mg Tablet, 25 MG PO QHS for nerve pain, (Reported) Entered as Reported by: BURTON HORTON on 07/29/19 2106 Last Action: Continued on 10/28/21 140 by BRAYAN RAYMOND MD Atorvastatin Calcium (Atorvastatin Calcium) 20 Mg Tablet, 20 MG PO HS for FOR CHOLESTEROL, #30 Ref 0 (Reported) Entered as Reported by: SANDRO CRAFT on 09/23/17 1028 Last Action: Continued on 10/28/21 1404 by BRAYAN RAYMOND MD Cholecalciferol (Vitamin D3) (Vitamin D3) 1,000 Unit Tablet, 1 TAB PO DAILY, #30 Ref 5 (Reported) Entered as Reported by: Kenya Hodgson on 01/02/18 1012 Last Action: Continued on 10/29/21 1120 by FRANNIE HERNANDEZ Clopidogrel Bisulfate (Clopidogrel) 75 Mg Tablet, 1 TAB PO DAILY for rx, #90 Ref 1 (Reported) Entered as Reported by: KATT RIVERA on 07/20/21 1308 Last Action: Continued on 10/28/21 1404 by BRAYAN RAYMOND MD Doxycycline Hyclate (Doxycycline Hyclate) 100 Mg Capsule, 1 CAP PO BID for COPD, #14 Prescribed by: DEMETRA BABIN on 11/04/21 1312 Ferrous Sulfate (Ferrous Sulfate) 325 Mg Tablet, 1 TAB PO DAILY for supplement, #30 Ref 3 (Reported) Entered as Reported by: Eduardo Gonzalez on 07/26/21 0313 Last Action: Continued on 10/29/211119 by FRANNIE HERNANDEZ Fluticasone/Umeclidin/Vilanter (Trelegy Ellipta 100-62.5-25) 1 Each Blst.w.dev, 1 EACH IH DAILY for rx, (Reported) Entered as Reported by: KATT RIVERA on 03/17/20 0748 Last Action: Converted on 10/29/211119 by FRANNIE HERNANDEZ Gabapentin (Gabapentin ) 100 Mg Capsule, 100 MG PO TID for NEUROGENIC PAIN, (R eported) Entered as Reported by: NURY VAUGHN on 10/18/20 1012 Last Action: Continued on 10/28/21 1404 by BRAYAN RAYMOND MD Ipratropium/Albuterol Sulfate (Duoneb 0.5-3(2.5) Mg/3 Ml) 3 Ml Ampul.neb, 3 ML NEB Q4HRS for WHEEZING, COUGH for 14 Days, #84 Prescribed by: PHONG YEBOAH MD on 10/22/19 1305 Last Action: Reviewed on 10/29/211119 by FRANNIE HERNANDEZ Levocetirizine Dihydrochloride (Levocetirizine Dihydrochloride) 5 Mg Tablet, 5 MG PO DAILY for allergies, (Reported) Entered as Reported by: BURTON HORTON on 07/29/19 2106 Last Action: Converted on 10/29/211119 by FRANNIE HERNANDEZ Levothyroxine Sodium (Levothyroxine Sodium) 50 Mcg Tablet, 1 TAB PO DAILY, #30 Ref 5 (Reported) Entered as Reported by: SANDRO CRAFT on 09/23/17 1028 Last Action: Continued on 10/28/21 1404 by BRAYAN RAYMOND MD Metoprolol Succinate (Metoprolol Succinate ( Xl )) 25 Mg Tab.er.24h, 25 MG PO DAILY for FOR HYPERTENSION, #30 Ref 0 (Reported) Entered as Reported by: TIA ZAMORA on 05/19/21 0951 Last Action: Continued on 10/29/211119 by FRANNIE HERNANDEZ Montelukast Sodium (Montelukast Sodium Tablet ) 10 Mg Tablet, 10 MG PO HS for FOR ASTHMA, Ref 0 (Reported) Entered as Reported by: BURTON HORTON on 07/29/192105 Last Action: Continued on 10/28/211403 by BRAYAN RAYMOND MD Omeprazole Magnesium (Prilosec Otc) 20 Mg Tablet.dr, 40 MG PO DAILY for rx, (Reported) Entered as Reported by: KATT RIVERA on 03/17/20 0748 Last Action: Converted on 10/28/211403 by BRAYAN RAYMOND MD Potassium Chloride (K-Tab ER) 20 Meq Tablet.er, 20 MEQ PO DAILY for hypokalemia, (Reported) Entered as Reported by: CECILIA NOVAK on 07/30/191942 Last Action: Converted on 10/29/211119 by FRANNIE HERNANDEZ Prednisone (Prednisone ) 10 Mg Tablet, 10 MG PO UD for COPD, #50 Ref 0 Take 5 tablets by mouth daily for 6 days, then take 4 tablets by mouth daily for 2 days, then take 3 tablets by mouth daily for 2 days, then take 2 tablets b y mouth daily for 2 days, then take 1 tablets by mouth daily for 2 days, then stop. Prescribed by: DEMETRA BABIN on 11/04/21 1312 Roflumilast (Daliresp) 500 Mcg Tablet, 1 TAB PO DAILY, #90 Ref 3 (Reported) Entered as Reported by: SANDRO CRAFT on 09/23/17 1028 Last Action: Continued on 10/28/21 140 by BRAYAN RAYMOND MD Ropinirole Hcl (Requip) 1 Mg Tablet, 3 TAB PO QHS, #30 Ref 2 (Reported) Entered as Reported by: SANDRO CRAFT on 09/23/17 1028 Last Action: Continued on 10/28/21 140 by BRAYAN RAYMOND MD Sacubitril/Valsartan (Entresto 24 mg-26 mg Tablet) 1 Each Tablet, 1 EACH PO BID for chf for 30 Days, #60 Ref 2 Prescribed by: KJ LORA on 11/19/20 1255 Last Action: Reviewed on 10/28/21 0516 by Aida Contreras Spironolactone (Spironolactone) 25 Mg Tablet, 25 MG PO DAILY for , (Reported) Entered as Reported by: TIA ZAMORA on 05/19/21 0951 Last Action: Continued on 10/29/21 1120 by FRANNIE HERNANDEZ Torsemide (Torsemide) 20 Mg Tablet, 2 TAB PO DAILY for , #90 Ref 1 (Reported) Entered as Reported by: Kenya Hodgson on 01/02/18 1012 Last Action: Continued on 10/28/21 1404 by BRAYAN RAYMOND MD Scheduled PRN Albuterol Sulfate (Proair Hfa Inhaler) 8.5 Gm Hfa.aer.ad, 1 PUFF INH PRN Q6HRS PRN for SHORTNESS OF BREATH, Ref 0 (Reported) Entered as Reported by: SANDRO CRAFT on 09/23/17 1028 Last Action: Continued on 10/29/21 112 by FRANNIE HERNANDEZ Diclofenac Sodium (Voltaren Arthritis Pain) 20 Gm Gel..gram., 20 GM TP PRN PRN for PAIN, (Reported) Entered as Reported by: TIA ZAMORA on 05/19/21 0940 Last Action: Continued on 10/29/21 112 by FRANNIE HERNANDEZ Guaifenesin/Codeine Phosphate (Codeine-Guaifen 10-100 mg/5 ml) 120 Ml Liquid, 5 ML PO PRN Q6HRS PRN for COUGH, #100 Prescribed by: DEMETRA BABIN on 11/04/21 1309 Discontinued Medications Doxycycline Hyclate (Doxycycline Hyclate) 100 Mg Capsule, 1 CAP PO BID for ., #14 Discontinued Reason: Prescription changed Prescribed by: JULIANA ERNST on 08/19/21 1301 Methocarbamol (Methocarbamol) 500 Mg Tablet, 1,000 MG PO PRN BID PRN for muscle relaxer, (Reported) Entered as Reported by: TIA ZAMORA on 05/25/21 0859 Last Action: Discontinued on 10/29/21 1120 by FRANNIE HERNANDEZ Methylprednisolone (Medrol) 4 Mg Tab.ds.pk, 1 PKG PO UD for ., #1 Prescribed by: JULIANA ERNST on 08/19/21 1301 Last Action: HELD on 10/28/21 1404 by BRAYAN RAYMOND MD Sucralfate (Sucralfate) 1 Gm Tablet, 1 TAB PO QID for gerd, #120 Ref 3 (Reported) Entered as Reported by: Eduardo Gonzalez on 07/26/21 0313 Last Action: Discontinued on 10/29/21 1120 by FRANNIE HERNANDEZ Patient Instructions Patient Instructions f/u GI or gen surg for bleeding pt seen face to face and in mancera 42 total minutes, orders written for skilled and home health, meds reconciled x2, resent to correct pharm Justicifation of Admission Dx: Justifications for Admission: Justification of Admission Dx: Yes DEMETRA BABIN MD Nov 04, 2021 13:19
--- NOTE | 2021-11-04 15:00 | NUR ---
SW following. Discussed with RN, discharge order for SNF. SW notified Dr. Parra that SNF is not an option as pt does not qualify. SW discussed with pt, she is upset but will do outpatient therapy. Dr. Mccloud is going to write the script for pt to take for outpatient therapy. Pt's will collect her after work. RN notified.
[2021-11-04 15:02] VITALS: BP 110/50
[2021-11-04] MEDS ORDERED: HEPARIN PF 500 UNIT/5 ML DISP.SYRIN. IVP ONE (16:00)
--- NOTE | 2021-11-04 17:57 | NUR ---
PT DISCHARGED HOME WITH SELF CARE. DISCHARGE INSTRUCTIONS AND PRESCRIPTIONS DISCUSSED. PT VERBALIZED UNDERSTANDING. ASSISTED TO WHEELCHAIR AND WAS SECURED IN CAR WITH
[2021-11-05] MEDS ORDERED: NON FORMULARY ITEM (Alendronate Sodium 1 TAB) PO SCH (09:00)
== END 2021-11-04 17:59 | disposition home or self-care (01) | DRG 189 ==
LOC: ER 19:38 → ED HOLD 21:56 → 5 SOUTH 10-28 01:59 → 4 NORTH 10-28 16:34
PROVIDERS: ADMIT Internal Medicine; ATTEND Internal Medicine
PROC: 30233N1 Transfusion of Nonautologous Red Blood Cells into Peripheral Vein, Percutaneous Approach (ICD-10-PCS; principal; 2021-10-29)
DX: J96.21 Acute and chronic respiratory failure with hypoxia (principal); I13.0 Hypertensive heart and chronic kidney disease with heart failure and stage 1 through stage 4 chronic kidney disease, or unspecified chronic kidney disease; I42.8 Other cardiomyopathies; I50.32 Chronic diastolic (congestive) heart failure; J44.1 Chronic obstructive pulmonary disease with (acute) exacerbation; D62 Acute posthemorrhagic anemia; G25.81 Restless legs syndrome; D12.3 Benign neoplasm of transverse colon; E03.9 Hypothyroidism, unspecified; E11.22 Type 2 diabetes mellitus with diabetic chronic kidney disease; E78.00 Pure hypercholesterolemia, unspecified; E78.5 Hyperlipidemia, unspecified; F32.A Depression, unspecified; F41.9 Anxiety disorder, unspecified; I25.10 Atherosclerotic heart disease of native coronary artery without angina pectoris; I27.20 Pulmonary hypertension, unspecified; I48.91 Unspecified atrial fibrillation; K57.30 Diverticulosis of large intestine without perforation or abscess without bleeding; K64.8 Other hemorrhoids; M10.9 Gout, unspecified; M81.0 Age-related osteoporosis without current pathological fracture; N18.9 Chronic kidney disease, unspecified; Z79.4 Long term (current) use of insulin; Z80.3 Family history of malignant neoplasm of breast; Z82.0 Family history of epilepsy and other diseases of the nervous system; Z82.49 Family history of ischemic heart disease and other diseases of the circulatory system; Z82.5 Family history of asthma and other chronic lower respiratory diseases; Z87.891 Personal history of nicotine dependence; Z90.49 Acquired absence of other specified parts of digestive tract; Z90.710 Acquired absence of both cervix and uterus; Z95.810 Presence of automatic (implantable) cardiac defibrillator; Z96.659 Presence of unspecified artificial knee joint; Z99.81 Dependence on supplemental oxygen; K21.9 Gastro-esophageal reflux disease without esophagitis; M19.90 Unspecified osteoarthritis, unspecified site
CPT/HCPCS: 36415; 36430; 71045; 80048; 80053; 82728; 82977; 83735; 83880; 84484; 85007; 85025; 85027; 86850; 86900; 86901; 86920; 87428; 93005; 94640; 94760; 96374; J1100; J1642; J2270; J2920; J3475; P9016; U0003; U0005; 97116-GP; 97530-GP; 99285-25; G0378

== ENCOUNTER → 2021-11-18 | Outpatient (CLI) | payer MEDICARE, OTHER ==
[2021-11-04 15:02] VITALS: BP 110/50
[~2021-11-18] MED LIST changes: +GUAI120L35 PO
--- NOTE | 2021-11-18 15:42 | RAD ---
EXAM: Chest, 2 views. HISTORY: Diastolic heart failure. COMPARISON: 10/31/2021 FINDINGS: 2 views of the chest are obtained. There is coarse diffuse increased interstitial opacity. There is no consolidation, pleural effusion or pneumothorax. The heart is normal in size. There is a cardiac pacemaker defibrillator in expected position. There is a septal closure device overlying the heart. There is a port catheter with the tip in the superior cava. There is irregular lobe pulmonary nodule. IMPRESSION: 1. Diffuse increased interstitial opacity likely due to interstitial infiltrate. 2. Right upper lobe pulmonary nodule. This is slightly increased in size compared to a PET/CT dated 1 11/19/2020, allowing for differences in imaging modality. Electronically signed by: Peyton Pizano MD (11/18/2021 3:40 PM) [id number]
[2021-11-18 15:57] LABS: CALCIUM 8.3 mg/dL (8.5-10.1); CREATININE 1.3 mg/dL (0.6-1.0); GFR 40.9; POTASSIUM 4.4 mmol/L (3.5-5.1)
== END ==
LOC: RAD 14:59
PROVIDERS: ATTEND Internal Medicine Cardiovascular Disease
DX: R91.1 Solitary pulmonary nodule (principal); R91.8 Other nonspecific abnormal finding of lung field; I50.32 Chronic diastolic (congestive) heart failure; Z95.0 Presence of cardiac pacemaker
CPT/HCPCS: 36415; 71046; 80048; 83880

== ENCOUNTER 2021-11-20 18:38 | Inpatient (IN) | payer MEDICARE, OTHER ==
[~2021-11-20] VITALS: Ht 152.4 cm; Wt 65.6 kg
[2021-11-20] MEDS ORDERED: 0.9 % SOD CHL for STERILE FIELD 10 ML DISP.SYRIN. ONE (19:00)
[2021-11-20 19:30] LABS: BASO # 0.1 x10^3/uL (0.0-0.2); BASO % 1 % (0-3); EOS % 0 % (0-3); HEMOGLOBIN 8.2 g/dL (12.0-15.5); LYMPH # 0.4 x10^3/uL (1.0-4.8); LYMPH % 5 % (24-48); MEAN CORPUSCULAR HEMOGLOBIN 30 pg (25-35); MEAN CORPUSCULAR HGB CONC 32 g/dL (31-37); MEAN CORPUSCULAR VOLUME 94 fL (79-100); MONO # 0.3 x10^3/uL (0.0-1.1); MONO % 4 % (0-9); NEUT # 7.5 x10^3/uL (1.8-7.7); NEUT % 90 % (31-73); PLATELET COUNT 376 x10^3/uL (140-400); RED BLOOD COUNT 2.78 x10^6/uL (3.50-5.40); RED CELL DISTRIBUTION WIDTH 17.4 % (11.5-14.5); WHITE BLOOD COUNT 8.3 x10^3/uL (4.0-11.0)
[2021-11-20 19:41] LABS: CALCIUM 8.1 mg/dL (8.5-10.1); CREATININE 1.2 mg/dL (0.6-1.0); GFR 44.8; POTASSIUM 4.2 mmol/L (3.5-5.1)
[2021-11-20 19:47] LABS: ALBUMIN/GLOBULIN RATIO 0.4 (1.0-1.7); MAGNESIUM 1.1 mg/dL (1.8-2.4); TOTAL BILIRUBIN 0.5 mg/dL (0.2-1.0); TOTAL PROTEIN 6.6 g/dL (6.4-8.2)
--- NOTE | 2021-11-20 20:05 | PHYS DOC ---
Past Medical History Past Medical History: CAD, CHF, COPD, Diabetes-Type II, High Cholesterol, Hypertension, Hypothyroid Additional Past Medical Histor: O2 dependant Past Surgical History: Cholecystectomy, , Hysterectomy, Knee Replacement, Pacemaker Additional Past Surgical Histo: left shoulder; pacemaker/defibrillator, R lung bx, ablation Smoking Status: Former Smoker Alcohol Use: None Drug Use: None General Adult EDM: Chief Complaint: SHORTNESS OF BREATH HPI: HPI: Patient is a 66 year old female with extensive past medical history including CAD, CHF and COPD who presents with 1 week history of shortness of breath. Patient states she saw her third steel pourer, Dr. Driscoll, 2 days ago regarding her symptoms. She states she was instructed to double her Lasix for a few days. Patient reported associated bilateral lower extremity swelling, that has since resolved. Patient reports she is unable to lay down to sleep and has had to periodically increase her daily oxygen by 0.5-1 L during the day. Patient denies chest pain, palpitations, cough, fever, chills. Review of Systems: Review of Systems: Constitutional: Denies fever, chills or generalized weakness Eyes: Denies change in visual acuity, visual field deficits or discharge HENT: Denies ear pain, nasal congestion or sore throat Respiratory: See HPI Cardiovascular: See HPI GI: Denies abdominal pain, nausea, vomiting, bloody stools or diarrhea : Denies dysuria or hematuria Musculoskeletal: Denies back pain or joint pain Integument: Denies rash or other skin lesion Neurologic: Denies headache, focal weakness or sensory changes Heart Score: C/O Chest Pain: No Current Medications: Current Medications Medications (Trade) Dose Ordered Sig/Keshav Start Time Stop Time Status Last Admin Dose Admin Sodium Chloride (NORMAL SALINE FLUSH for STERILE FIELD) 10 ml STK-MED ONCE 11/20/21 19:00 11/20/21 19:00 DC Allergies: Allergies: Allergies Coded Allergies Type Severity Reaction Last Updated Verified ibuprofen Allergy Severe Swelling 09/30/21 Yes naproxen Allergy Severe Shortness of Air 09/30/21 Yes piperacillin Allergy Severe Swelling 09/30/21 Yes tazobactam Allergy Severe Swelling 09/30/21 Yes fentanyl Adverse Reaction Severe agitation 09/30/21 Yes Physical Exam: PE: Constitutional: Well developed, well nourished, increased work of breathing, non-toxic appearance. HENT: Normocephalic, atraumatic, bilateral external ears normal, oropharynx moist, no oral exudates, nose normal. Eyes: EOMI, conjunctiva normal, no discharge. Neck: Normal range of motion, no stridor. Cardiovascular: Elevated heart rate with regular rhythm. Lungs & Thorax: Diffuse expiratory wheezing with wet rales. Equal thoracic expansion, no crepitus or chest wall tenderness. Skin: Warm, dry, no erythema, no rash. Extremities: No tenderness, no cyanosis, no clubbing, ROM intact, no pitting edema appreciated. Neurologic: Alert and oriented x4, no focal deficits noted. Current Patient Data: Labs: Laboratory Tests Test 11/20/21 19:12 White Blood Count 8.3 x10^3/uL (4.0-11.0) Red Blood Count 2.78 x10^6/uL (3.50-5.40) L Hemoglobin 8.2 g/dL (12.0-15.5) L Hematocrit 26.0 % (36.0-47.0) L Mean Corpuscular Volume 94 fL (79-100) Mean Corpuscular Hemoglobin 30 pg (25-35) Mean Corpuscular Hemoglobin Concent 32 g/dL (31-37) Red Cell Distribution Width 17.4 % (11.5-14.5) H Platelet Count 376 x10^3/uL (140-400) Neutrophils (%) (Auto) 90 % (31-73) H Lymphocytes (%) (Auto) 5 % (24-48) L Monocytes (%) (Auto) 4 % (0-9) Eosinophils (%) (Auto) 0 % (0-3) Basophils (%) (Auto) 1 % (0-3) Neutrophils # (Auto) 7.5 x10^3/uL (1.8-7.7) Lymphocytes # (Auto) 0.4 x10^3/uL (1.0-4.8) L Monocytes # (Auto) 0.3 x10^3/uL (0.0-1.1) Eosinophils # (Auto) 0.0 x10^3/uL (0.0-0.7) Basophils # (Auto) 0.1 x10^3/uL (0.0-0.2) Sodium Level 133 mmol/L (136-145) L Potassium Level 4.2 mmol/L (3.5-5.1) Chloride Level 93 mmol/L (98-107) L Carbon Dioxide Level 33 mmol/L (21-32) H Anion Gap 7 (6-14) Blood Urea Nitrogen 19 mg/dL (7-20) Creatinine 1.2 mg/dL (0.6-1.0) H Estimated GFR (Cockcroft-Gault) 44.8 BUN/Creatinine Ratio 16 (6-20) Glucose Level 134 mg/dL (70-99) H Calcium Level 8.1 mg/dL (8.5-10.1) L Magnesium Level 1.1 mg/dL (1.8-2.4) L Total Bilirubin 0.5 mg/dL (0.2-1.0) Aspartate Amino Transferase (AST) 24 U/L (15-37) Alanine Aminotransferase (ALT) 18 U/L (14-59) Alkaline Phosphatase 113 U/L (46-116) Troponin I High Sensitivity 404 ng/L (4-50) H RQ-Gpt-F-Type Natriuretic Peptide 17741 pg/mL (0-124) H Total Protein 6.6 g/dL (6.4-8.2) Albumin 2.0 g/dL (3.4-5.0) L Albumin/Globulin Ratio 0.4 (1.0-1.7) L Laboratory Tests 11/20/21 19:12 Laboratory Tests 11/20/21 19:12 Vital Signs: Vital Signs Date Time Temp Pulse Resp B/P (MAP) Pulse Ox O2 Delivery O2 Flow Rate FiO2 11/20/21 18:50 98.7 99 24 104/59 (74) 99 Nasal Cannula 3.0 98.7 EKG: EKG: EKG Interpreted by Dr. Langston at 1902: Ventricular paced rhythm 119 bpm. QT 334 ms/prolonged QTc 470 ms. No STEMI. Radiology/Procedures: Radiology/Procedures: PROCEDURE: CHEST AP ONLY XR CHEST 1V History: Shortness of breath Comparison: 11/18/2021. Technique: Portable AP radiograph of the chest. Findings: Accessed right chest Mediport with catheter tip at the mid SVC. 3-lead left chest pacemaker-defibrillator. Left atrial appendage occlusion device. There are patchy bilateral airspace opacities. No pleural effusion or pneumothorax. The cardiac silhouette is normal in size. Pulmonary vasculature is mildly indistinct. Degenerative changes of the shoulders and spine. Soft tissues are unremarkable. Impression: 1. Patchy bilateral airspace opacities may represent pleural effusion or multifocal pneumonia. Electronically signed by: James De Jesus MD (11/20/2021 11:15 PM) [facility] Course & Med Decision Making: Course & Med Decision Making Pertinent Labs and Imaging studies reviewed. (See chart for details) Patient is a 66-year-old female with extensive past medical history that includes CAD, CHF, COPD presents with increased shortness of breath. She was seen 2 days ago by her third steel pourer, who recommended that she double her Lasix dose for the next few days. Despite following these instruction, her shortness of breath has not gotten better. She does report that her feet are no longer swollen. Work-up today will include labs, EKG, chest x-ray. Patient's BNP is elevated to over 21,000, which is up from 15,000 on Tuesday. Additionally, her troponin is elevated at 404. Dr. Abbasi, hospitalist, gladly accepts patient for admission for CHF exacerbation with elevated troponin. Dr. Driscoll, cardiology service, was informed his patient would be here in the hospital. He agrees to see her during her stay. 40 Lasix IV was administered prior to transfer to hospital floor. Justin Disclaimer: Justin Disclaimer: This electronic medical record was generated, in whole or in part, using a voice recognition dictation system. Departure Departure Impression: Primary Impression: Acute exacerbation of CHF (congestive heart failure) Qualified Codes: I50.9 - Heart failure, unspecified Additional Impression: Elevated troponin Disposition: ADMITTED INPATIENT Admitting Physician: ROYCE (Elroy) Condition: GUARDED Referrals: MARGARITA MARTIN MD (PCP) ALBERT ROSE Nov 20, 2021 20:05
[2021-11-20] MEDS: FUROSEMIDE 40 MG/4 ML VIAL. IVP SCH (20:42)
[2021-11-20 22:17] VITALS: BP 107/58
--- NOTE | 2021-11-20 23:17 | RAD ---
XR CHEST 1V History: Shortness of breath Comparison: 11/18/2021. Technique: Portable AP radiograph of the chest. Findings: Accessed right chest Mediport with catheter tip at the mid SVC. 3-lead left chest pacemaker-defibrill ator. Left atrial appendage occlusion device. There are patchy bilateral airspace opacities. No pleur al effusion or pneumothorax. The cardiac silhouette is normal in size. Pulmonary vasculature is mildl y indistinct. Degenerative changes of the shoulders and spine. Soft tissues are unremarkable. Impression: 1. Patchy bilateral airspace opacities may represent pleural effusion or multifocal pneumonia. Electronically signed by: James De Jesus MD (11/20/2021 11:15 PM) [facility]
[2021-11-21 02:07] VITALS: BP 102/54
--- NOTE | 2021-11-21 03:50 | EKG ---
[facility] [address] [place] [address] Test Date: 2021-11-20 Test Time: 18:59:16 Pat Name: JAYCOB CRAWFORD Department: Room: 646 1 Gender: F Location Director: : [id number] Requested By: ALBERT ROSE Order Number: [id number] Reading MD: Octaviano Driscoll Measurements Intervals [place] Rate: 119 P: -13 MS: 144 QRS: 57 QRSD: 114 T: 210 QT: 334 QTc: 470 Interpretive Statements SINUS TACHYCARDIA CANNOT RULE OUT BIV PACED RHYTHM Electronically Signed On 11-22-2021 13:58:28 SILK SNAPPER by Octaviano Driscoll
[2021-11-21] MEDS ORDERED: ALBUTEROL SULFATE 2.5 MG/3 ML NEBU. INH PRN (05:45)
[2021-11-21] MEDS ORDERED: DICLOFENAC SODIUM 1% TOPICAL GEL 100GM TUBE. TP PRN (05:45)
[2021-11-21] MEDS ORDERED: IPRATRPIUM/ALBUTEROL 0.5/2.5MG 3 ML NEBU. NEB SCH (06:00)
[2021-11-21] MEDS ORDERED: ALBUTEROL SULFATE 8GM INHALER. INH PRN (06:15)
[2021-11-21] MEDS: IPRATROPIUM/ALBUTEROL 20/100mcg/INH INHALER. INH SCH ×3 (06:17→14:00)
[2021-11-21 07:00] VITALS: BP 105/56
[2021-11-21] MEDS: CLOPIDOGREL BISULFATE 75 MG TABLET PO SCH (08:11)
[2021-11-21] MEDS: LEVOTHYROXINE 50 MCG TABLET PO SCH (08:11)
[2021-11-21] MEDS: FERROUS SULFATE 325 MG TABLET. PO SCH (08:11)
[2021-11-21] MEDS: FUROSEMIDE 40 MG/4 ML VIAL. IVP SCH (08:13)
[2021-11-21] MEDS: ALLOPURINOL 300 MG TABLET. PO SCH (08:13)
[2021-11-21] MEDS: CHOLECALCIFEROL (VITAMIN D3) 1,000 UNIT TABLET PO SCH (08:13)
[2021-11-21] MEDS: ROFLUMILAST 500 MCG TABLET. PO SCH (08:13)
[2021-11-21] MEDS: SACUBITRIL/VALSARTAN 24/26MG TABLET. PO SCH ×2 (08:13→21:35)
[2021-11-21] MEDS: GABAPENTIN 100 MG CAPSULE. PO SCH ×3 (08:13→21:35)
--- NOTE | 2021-11-21 09:06 | PDOC1 ---
History and Physical Date of Service: DOS: DATE: 11/21/21 TIME: 08:44 Chief Complaint: Chief Complain: Shortness of breath History of Present Illness: HPI: History obtained from chart review and discussion with the ED physician: 66 year old female with extensive past medical history including CAD, CHF and COPD who presents with 1 week history of shortness of breath. Patient states she saw her tube heater, Dr. Driscoll, 2 days ago regarding her symptoms. She states she was instructed to double her Lasix for a few days. Patient reported associated bilateral lower extremity swelling, that has since resolved. Patient reports she is unable to lay down to sleep and has had to periodically increase her daily oxygen by 0.5-1 L during the day. Patient denies chest pain, palpi tations, cough, fever, chills. Past Medical/Surgical History: PMH/PSH: Past Medical History: CAD, CHF, COPD, Diabetes-Type II, High Cholesterol, Hypertension, Hypothyroid, O2 dependant Past Surgical History: Cholecystectomy, , Hysterectomy, Knee Replacement, Pacemaker, left shoulder; pacemaker/defibrillator, R lung bx, ablation Allergies: Allergies: Coded Allergies: ibuprofen (Verified Allergy, Severe, Swelling, 09/30/21) naproxen (Verified Allergy, Severe, Shortness of Air, 09/30/21) tolerates asa piperacillin (Verified Allergy, Severe, Swelling, 09/30/21) Tolerated cefepime tazobactam (Verified Allergy, Severe, Swelling, 09/30/21) fentanyl (Verified Adverse Reaction, Severe, agitation, 09/30/21) violent behavior Family History: Family History: Reviewed with no relevant findings in the chart Social History: Social History: Smoking Status: Former Smoker Alcohol Use: None Drug Use: None Current Medications: Current Medications Current Medications Sodium Chloride (NORMAL SALINE FLUSH for STERILE FIELD) 10 ml STK-MED ONCE .ROUTE ; Start 11/20/21 at 19:00; Stop 11/20/21 at 19:00; Status DC Furosemide (Lasix) 40 mg DAILY IVP Last administered on 11/21/21at 08:13; Start 11/20/21 at 20:30 Albuterol Sulfate (Ventolin Neb Soln) 2.5 mg PRN Q6HRS PRN INH SHORTNESS OF BREATH; Start 11/21/21 at 05:45; Status Cancel Allopurinol (Zyloprim) 300 mg DAILY PO Last administered on 11/21/21at 08:13; Start 11/21/21 at 09:00 Amitriptyline HCl (Elavil) 25 mg QHS PO ; Start 11/21/21 at 21:00 Atorvastatin Calcium (Lipitor) 20 mg HS PO ; Start 11/21/21 at 21:00 Vitamin D (Vitamin D3) 1,000 unit DAILY PO Last administered on 11/21/21at 08:13; Start 11/21/21 at 09:00 Clopidogrel Bisulfate (Plavix) 75 mg DAILY08 PO Last administered on 11/21/21at 08:11; Start 11/21/21 at 08:00 Diclofenac Sodium (Voltaren) 20 rosa elena PRN BID PRN TP PAINFUL JOINTS; Start 11/21/21 at 05:45 Ferrous Sulfate (Feosol) 325 mg DAILY08 PO Last administered on 11/21/21at 08:11; Start 11/21/21 at 08:00 Gabapentin (Neurontin) 100 mg TID PO Last administered on 11/21/21at 08:13; Start 11/21/21 at 09:00 Albuterol/ Ipratropium (Duoneb) 3 ml Q4HRS W/A NEB ; Start 11/21/21 at 06:00; Stop 11/21/21 at 06:06; Status DC Levothyroxine Sodium (Synthroid) 50 mcg DAILY PO Last administered on 11/21/21at 08:11; Start 11/21/21 at 09:00 Montelukast Sodium (Singulair) 10 mg HS PO ; Start 11/21/21 at 21:00 Roflumilast (Daliresp) 500 mcg DAILY PO Last administered on 11/21/21at 08:13; Start 11/21/21 at 09:00 Ropinirole HCl (Requip) 3 mg QHS PO ; Start 11/21/21 at 21:00 Sacubitril/ Valsartan (Entresto 24 Mg-26 Mg) 1 tab BID PO Last administered on 11/21/21at 08:13; Start 11/21/21 at 09:00 Albuterol Sulfate (Ventolin Hfa) 2 puff PRN Q6HRS PRN INH SOA Last administered on 11/21/21at 06:17; Start 11/21/21 at 06:15 Albuterol/ Ipratropium (Combivent Respimat 20-100 Mcg) 1 puff Q4HRS W/A INH Last administered on 11/21/21at 06:17; Start 11/21/21 at 06:30 Active Scripts Active Entresto 24 mg-26 mg Tablet (Sacubitril/Valsartan) 1 Each Tablet 1 Each PO BID 30 Days Duoneb 0.5-3(2.5) Mg/3 Ml (Albuterol/Ipratropium) 3 Ml Ampul.neb 3 Ml NEB Q4HRS 14 Days Reported Ferrous Sulfate 325 Mg Tablet 1 Tab PO DAILY Clopidogrel (Clopidogrel Bisulfate) 75 Mg Tablet 1 Tab PO DAILY Spironolactone 25 Mg Tablet 25 Mg PO DAILY Metoprolol Succinate ( Xl ) (Metoprolol Succinate) 25 Mg Tab.er.24h 25 Mg PO DAILY Voltaren Arthritis Pain (Diclofenac Sodium) 20 Gm Gel..gram. 20 Gm TP PRN PRN Gabapentin (Gabapentin) 100 Mg Capsule 100 Mg PO TID Alendronate Sodium 70 Mg Tablet 1 Tab PO WEEKLY Allopurinol 300 Mg Tablet 1 Tab PO DAILY Trelegy Ellipta 100-62.5-25 (Fluticasone/Umeclidin/Vilanter) 1 Each Blst.w.dev 1 Each IH DAILY Prilosec Otc (Omeprazole Magnesium) 20 Mg Tablet.dr 40 Mg PO DAILY K-Tab ER (Potassium Chloride) 20 Meq Tablet.er 20 Meq PO DAILY Montelukast Sodium Tablet (Montelukast Sodium) 10 Mg Tablet 10 Mg PO HS Levocetirizine Dihydrochloride 5 Mg Tablet 5 Mg PO DAILY Amitriptyline Hcl 25 Mg Tablet 25 Mg PO QHS Vitamin D3 (Cholecalciferol (Vitamin D3)) 1,000 Unit Tablet 1 Tab PO DAILY Torsemide 20 Mg Tablet 2 Tab PO DAILY Daliresp (Roflumilast) 500 Mcg Tablet 1 Tab PO DAILY Atorvastatin Calcium 20 Mg Tablet 20 Mg PO HS Requip (Ropinirole Hcl) 1 Mg Tablet 3 Tab PO QHS Proair Hfa Inhaler (Albuterol Sulfate) 8.5 Gm Hfa.aer.ad 1 Puff INH PRN Q6HRS PRN Levothyroxine Sodium 50 Mcg Tablet 1 Tab PO DAILY ROS: Review of Systems Review of System REVIEW OF SYSTEMS: GENERAL: Denies weakness SKIN: No bruising, hair changes or rashes. EYES: No blurred, double or loss of vision. NOSE AND THROAT: No history of nosebleeds, hoarseness or sore throat. HEART: No history of palpitations, chest pain or shortness of breath on exertion. LUNGS: Positive for shortness of breath GASTROINTESTINAL: Denies changes in appetite, nausea, vomiting, diarrhea or constipation. GENITOURINARY: No history of frequency, urgency, hesitancy or nocturia. NEUROLOGIC: Denies history of numbness, tingling, or tremor. PSYCHIATRIC: No history of panic, anxiety or depression. ENDOCRINE: No history of heat or cold intolerance, polyuria or polydipsia. EXTREMITIES: Denies joint pain, pain on walking or stiffness. Physical Exam: Vital Signs: Vital Signs Date Time Temp Pulse Resp B/P (MAP) Pulse Ox O2 Delivery O2 Flow Rate FiO2 11/21/21 08:13 124 105/56 11/21/21 08:04 Nasal Cannula 3.0 11/21/21 07:00 97.5 18 98 97.5 Physcial Exam: General: Well developed, well nourished, no acute distress, well appearing HEENT: Pupils equally round and reactive to light, EOMI, no discharge, normal conjunctiva Neck: Supple, no nuchal rigidity, no JVD, trachea midline, no tenderness Cardiac: RRR, no murmurs, no gallops, no rubs Chest/Lungs: CTAB, no wheeze, no rhonchi, no crackles Abdomen: soft, non-distended, no guarding, no peritoneal signs, non-tender Back: No tenderness Extremities: no edema, pulses intact, non-tender,capillary refill <3 sec bilateral upper and lower extremities, Neuro: Alert and oriented x 4, no focal deficits, normal speech Labs: Labs: Laboratory Tests Test 11/20/21 19:12 11/20/21 20:38 11/21/21 01:15 White Blood Count 8.3 x10^3/uL (4.0-11.0) Red Blood Count 2.78 x10^6/uL (3.50-5.40) Hemoglobin 8.2 g/dL (12.0-15.5) Hematocrit 26.0 % (36.0-47.0) Mean Corpuscular Volume 94 fL (79-100) Mean Corpuscular Hemoglobin 30 pg (25-35) Mean Corpuscular Hemoglobin Concent 32 g/dL (31-37) Red Cell Distribution Width 17.4 % (11.5-14.5) Platelet Count 376 x10^3/uL (140-400) Neutrophils (%) (Auto) 90 % (31-73) Lymphocytes (%) (Auto) 5 % (24-48) Monocytes (%) (Auto) 4 % (0-9) Eosinophils (%) (Auto) 0 % (0-3) Basophils (%) (Auto) 1 % (0-3) Neutrophils # (Auto) 7.5 x10^3/uL (1.8-7.7) Lymphocytes # (Auto) 0.4 x10^3/uL (1.0-4.8) Monocytes # (Auto) 0.3 x10^3/uL (0.0-1.1) Eosinophils # (Auto) 0.0 x10^3/uL (0.0-0.7) Basophils # (Auto) 0.1 x10^3/uL (0.0-0.2) Sodium Level 133 mmol/L (136-145) Potassium Level 4.2 mmol/L (3.5-5.1) Chloride Level 93 mmol/L (98-107) Carbon Dioxide Level 33 mmol/L (21-32) Anion Gap 7 (6-14) Blood Urea Nitrogen 19 mg/dL (7-20) Creatinine 1.2 mg/dL (0.6-1.0) Estimated GFR (Cockcroft-Gault) 44.8 BUN/Creatinine Ratio 16 (6-20) Glucose Level 134 mg/dL (70-99) Calcium Level 8.1 mg/dL (8.5-10.1) Magnesium Level 1.1 mg/dL (1.8-2.4) Total Bilirubin 0.5 mg/dL (0.2-1.0) Aspartate Amino Transf (AST/SGOT) 24 U/L (15-37) Alanine Aminotransferase (ALT/SGPT) 18 U/L (14-59) Alkaline Phosphatase 113 U/L (46-116) Troponin I High Sensitivity 404 ng/L (4-50) 430 ng/L (4-50) DY-Ldy-O-Type Natriuretic Peptide 07950 pg/mL (0-124) Total Protein 6.6 g/dL (6.4-8.2) Albumin 2.0 g/dL (3.4-5.0) Albumin/Globulin Ratio 0.4 (1.0-1.7) SARS-CoV-2 Antigen (Rapid) Negative (NEGATIVE) Laboratory Tests Test 11/20/21 19:12 11/20/21 20:38 11/21/21 01:15 White Blood Count 8.3 x10^3/uL (4.0-11.0) Red Blood Count 2.78 x10^6/uL (3.50-5.40) Hemoglobin 8.2 g/dL (12.0-15.5) Hematocrit 26.0 % (36.0-47.0) Mean Corpuscular Volume 94 fL (79-100) Mean Corpuscular Hemoglobin 30 pg (25-35) Mean Corpuscular Hemoglobin Concent 32 g/dL (31-37) Red Cell Distribution Width 17.4 % (11.5-14.5) Platelet Count 376 x10^3/uL (140-400) Neutrophils (%) (Auto) 90 % (31-73) Lymphocytes (%) (Auto) 5 % (24-48) Monocytes (%) (Auto) 4 % (0-9) Eosinophils (%) (Auto) 0 % (0-3) Basophils (%) (Auto) 1 % (0-3) Neutrophils # (Auto) 7.5 x10^3/uL (1.8-7.7) Lymphocytes # (Auto) 0.4 x10^3/uL (1.0-4.8) Monocytes # (Auto) 0.3 x10^3/uL (0.0-1.1) Eosinophils # (Auto) 0.0 x10^3/uL (0.0-0.7) Basophils # (Auto) 0.1 x10^3/uL (0.0-0.2) Sodium Level 133 mmol/L (136-145) Potassium Level 4.2 mmol/L (3.5-5.1) Chloride Level 93 mmol/L (98-107) Carbon Dioxide Level 33 mmol/L (21-32) Anion Gap 7 (6-14) Blood Urea Nitrogen 19 mg/dL (7-20) Creatinine 1.2 mg/dL (0.6-1.0) Estimated GFR (Cockcroft-Gault) 44.8 BUN/Creatinine Ratio 16 (6-20) Glucose Level 134 mg/dL (70-99) Calcium Level 8.1 mg/dL (8.5-10.1) Magnesium Level 1.1 mg/dL (1.8-2.4) Total Bilirubin 0.5 mg/dL (0.2-1.0) Aspartate Amino Transf (AST/SGOT) 24 U/L (15-37) Alanine Aminotransferase (ALT/SGPT) 18 U/L (14-59) Alkaline Phosphatase 113 U/L (46-116) Troponin I High Sensitivity 404 ng/L (4-50) 430 ng/L (4-50) VF-Iwj-E-Type Natriuretic Peptide 13441 pg/mL (0-124) Total Protein 6.6 g/dL (6.4-8.2) Albumin 2.0 g/dL (3.4-5.0) Albumin/Globulin Ratio 0.4 (1.0-1.7) SARS-CoV-2 Antigen (Rapid) Negative (NEGATIVE) Images: Images PROCEDURE: CHEST AP ONLY XR CHEST 1V History: Shortness of breath Comparison: 11/18/2021. Technique: Portable AP radiograph of the chest. Findings: Accessed right chest Mediport with catheter tip at the mid SVC. 3-lead left chest pacemaker-defibrillator. Left atrial appendage occlusion device. There are patchy bilateral airspace opacities. No pleural effusion or pneumothorax. The cardiac silhouette is normal in size. Pulmonary vasculature is mildly indistinct. Degenerative changes of the shoulders and spine. Soft tissues are unremarkable. Impression: 1. Patchy bilateral airspace opacities may represent pleural effusion or multifocal pneumonia. Assessment/Plan Assessment/Plan Assessment/Plan Acute hypoxic respiratory failure Elevated troponins due to demand ischemia Elevated BNP likely due to volume overload versus chronic hypoxia Isolated elevated alkaline phosphatase Home oxygen therapy at 3 L currently at baseline History of CAD asymptomatic History of CHF compensated Diabetes mellitus type 2 insulin requiring Essential hypertension hyperlipidemia Acquired hypothyroidism History of AICD History of diastolic CHF, grade 1 abnormal relaxation pattern Hx left shoulder surgery, Hx tobacco abuse (quit 3 years ago) Admit to hospitalist service for further management Cardiology consult for elevated troponins IV steroids IV Lasix diuresis as needed Combivent inhaler Lovenox for DVT prophylaxis Protonix GI prophylaxis ADA diet CODE STATUS full Discussed with RN and SW Disposition inpatient management as above DPOA: In addition to my E/M visit, advance care planning done with A total time of 20 minutes was spent from 9:00 to 920 face to face in discussion regarding the patient's goals of care, CODE STATUS. Justifications for Admission Other Justification COPD exacerbation BRAYAN RAYMOND MD Nov 21, 2021 09:06
[2021-11-21] MEDS ORDERED: SENNOSIDES 8.6 MG TABLET PO PRN (09:15)
[2021-11-21] MEDS ORDERED: ONDANSETRON PF 4 MG/2 ML VIAL. IVP PRN (09:15)
[2021-11-21] MEDS ORDERED: diphenhydrAMINE HCL 25 MG CAPSULE PO PRN ×2 (09:15)
[2021-11-21] MEDS ORDERED: DOCUSATE SODIUM 100 MG CAPSULE. PO PRN (09:15)
[2021-11-21] MEDS ORDERED: ZOLPIDEM 5 MG TABLET. PO PRN (09:15)
[2021-11-21] MEDS ORDERED: diphenhydrAMINE 50 MG/ML VIAL IVP PRN (09:15)
[2021-11-21] MEDS ORDERED: PROCHLORPERAZINE 10 MG/2 ML VIAL. IV PRN (09:15)
[2021-11-21] MEDS ORDERED: LORazepam 0.5 MG TABLET PO PRN (09:15)
[2021-11-21] MEDS ORDERED: DEXTROSE 50% 25 GM / 50ML DISP.SYRIN. IV PRN (09:15)
[2021-11-21] MEDS: ENOXAPARIN 30 MG/0.3 ML SYRINGE. SQ SCH (10:17)
[2021-11-21 10:43] VITALS: BP 123/58
[2021-11-21] MEDS: methylPREDNISolone SOD SUCC PF 40 MG/ML VIAL. IV SCH ×2 (14:08→21:36)
--- NOTE | 2021-11-21 14:27 | PDOC2 ---
CONSULT Date of Consult Date of Consult DATE: 11/21/21 TIME: 14:27 Reason for Consult Reason for Consult: Shortness of breath Referring Physician Referring Physician: Dr. Abbasi Identification/Chief Complaint Chief Complaint Shortness of breath Source Source: Chart review, Patient History of Present Illness Reason for Visit: 66-year-old female with history of nonischemic cardiomyopathy s/p biventricular ICD implantation and atrial fibrillation s/p ablation therapy was recently seen in our office for bilateral lower extremity edema. She was thought to be in mild acute on chronic systolic heart failure and recommended extra dose of Lasix daily. She apparently became progressively dyspneic despite increased dose of diuretics and hence presented to ED. She denied any chest pain, palpitations or syncope. She also denied any ICD firing episodes. Past Medical History Cardiovascular: AFIB, CHF Pulmonary: COPD CENTRAL NERVOUS SYSTEM: Other GI: No pertinent hx Heme/Onc: No pertinent hx Hepatobiliary: No pertinent hx Psych: No pertinent hx Musculoskeletal: Osteoarthritis Rheumatologic: No pertinent hx Infectious disease: No pertinent hx Renal/: Chronic renal insuff Endocrine: Diabetes, Hypothyroidism Past Surgical History Past Surgical History: Pacemaker Family History Family History: No Significant, Heart Disease Social History ALCOHOL: none Drugs: None Lives: with Family Current Problem List Problem List Problems Medical Problems: (1) Acute exacerbation of CHF (congestive heart failure) Status: Acute (2) Elevated troponin Status: Acute Current Medications Current Medications Current Medications Sodium Chloride (NORMAL SALINE FLUSH for STERILE FIELD) 10 ml STK-MED ONCE .ROUTE ; Start 11/20/21 at 19:00; Stop 11/20/21 at 19:00; Status DC Furosemide (Lasix) 40 mg DAILY IVP Last administered on 11/21/21at 08:13; Start 11/20/21 at 20:30 Albuterol Sulfate (Ventolin Neb Soln) 2.5 mg PRN Q6HRS PRN INH SHORTNESS OF BREATH; Start 11/21/21 at 05:45; Status Cancel Allopurinol (Zyloprim) 300 mg DAILY PO Last administered on 11/21/21at 08:13; Start 11/21/21 at 09:00 Amitriptyline HCl (Elavil) 25 mg QHS PO ; Start 11/21/21 at 21:00 Atorvastatin Calcium (Lipitor) 20 mg HS PO ; Start 11/21/21 at 21:00 Vitamin D (Vitamin D3) 1,000 unit DAILY PO Last administered on 11/21/21at 08:13; Start 11/21/21 at 09:00 Clopidogrel Bisulfate (Plavix) 75 mg DAILY08 PO Last administered on 11/21/21at 08:11; Start 11/21/21 at 08:00 Diclofenac Sodium (Voltaren) 20 rosa elena PRN BID PRN TP PAINFUL JOINTS; Start 11/21/21 at 05:45 Ferrous Sulfate (Feosol) 325 mg DAILY08 PO Last administered on 11/21/21at 08:11; Start 11/21/21 at 08:00 Gabapentin (Neurontin) 100 mg TID PO Last administered on 11/21/21at 14:08; Start 11/21/21 at 09:00 Albuterol/ Ipratropium (Duoneb) 3 ml Q4HRS W/A NEB ; Start 11/21/21 at 06:00; Stop 11/21/21 at 06:06; Status DC Levothyroxine Sodium (Synthroid) 50 mcg DAILY PO Last administered on 11/21/21at 08:11; Start 11/21/21 at 09:00 Montelukast Sodium (Singulair) 10 mg HS PO ; Start 11/21/21 at 21:00 Roflumilast (Daliresp) 500 mcg DAILY PO Last administered on 11/21/21at 08:13; Start 11/21/21 at 09:00 Ropinirole HCl (Requip) 3 mg QHS PO ; Start 11/21/21 at 21:00 Sacubitril/ Valsartan (Entresto 24 Mg-26 Mg) 1 tab BID PO Last administered on 11/21/21at 08:13; Start 11/21/21 at 09:00 Albuterol Sulfate (Ventolin Hfa) 2 puff PRN Q6HRS PRN INH SOA Last administered on 11/21/21at 06:17; Start 11/21/21 at 06:15; Stop 11/21/21 at 12:54; Status DC Albuterol/ Ipratropium (Combivent Respimat 20-100 Mcg) 1 puff Q4HRS W/A INH Last administered on 11/21/21at 14:00; Start 11/21/21 at 06:30 Sennosides (Senna) 17.2 mg PRN BID PRN PO CONSTIPATION; Start 11/21/21 at 09:15 Docusate Sodium (Colace) 100 mg PRN DAILY PRN PO HARD STOOLS; Start 11/21/21 at 09:15 Ondansetron HCl (Zofran) 4 mg PRN Q6HRS PRN IVP NAUSEA/VOMITING, 1st CHOICE; Start 11/21/21 at 09:15 Dextrose (Dextrose 50%-Water Syringe) 12.5 gm PRN Q15MIN PRN IV SEE COMMENTS; Start 11/21/21 at 09:15 Acetaminophen (Tylenol) 650 mg PRN Q4HRS PRN PO TEMP OVER 100.4F OR MILD PAIN; Start 11/21/21 at 09:15 Lorazepam (Ativan) 0.5 mg PRN Q6HRS PRN PO ANXIETY / AGITATION; Start 11/21/21 at 09:15 Lorazepam (Ativan Inj) 0.25 mg PRN Q4HRS PRN IV ANXIETY / AGITATION; Start 11/21/21 at 09:15 Enoxaparin Sodium (Lovenox 30mg Syringe) 30 mg DAILY SQ Last administered on 11/21/21at 10:17; Start 11/21/21 at 10:00 Prochlorperazine Edisylate (Compazine) 10 mg PRN Q6HRS PRN IV NAUSEA/VOMITING, 2nd CHOICE; Start 11/21/21 at 09:15 Diphenhydramine HCl (Benadryl) 25 mg PRN Q6HRS PRN IVP ITCHING; Start 11/21/21 at 09:15 Diphenhydramine HCl (Benadryl) 25 mg PRN Q6HRS PRN PO ITCHING; Start 11/21/21 at 09:15 Diphenhydramine HCl (Benadryl) 25 mg PRN QHS PRN PO INSOMNIA, 1st CHOICE; Start 11/21/21 at 09:15 Zolpidem Tartrate (Ambien) 2.5 mg PRN QHS PRN PO INSOMNIA, 2nd CHOICE; Start 11/21/21 at 09:15 Methylprednisolone Sodium Succinate (SOLU-Medrol 40MG VIAL) 40 mg Q8HRS IV Last administered on 11/21/21at 14:08; Start 11/21/21 at 14:00 Thiamine Mononitrate (Vitamin B-1) 300 mg DAILY PO ; Start 11/22/21 at 09:00 Active Scripts Active Entresto 24 mg-26 mg Tablet (Sacubitril/Valsartan) 1 Each Tablet 1 Each PO BID 30 Days Duoneb 0.5-3(2.5) Mg/3 Ml (Albuterol/Ipratropium) 3 Ml Ampul.neb 3 Ml NEB Q4HRS 14 Days Reported Ferrous Sulfate 325 Mg Tablet 1 Tab PO DAILY Clopidogrel (Clopidogrel Bisulfate) 75 Mg Tablet 1 Tab PO DAILY Spironolactone 25 Mg Tablet 25 Mg PO DAILY Metoprolol Succinate ( Xl ) (Metoprolol Succinate) 25 Mg Tab.er.24h 25 Mg PO DAILY Voltaren Arthritis Pain (Diclofenac Sodium) 20 Gm Gel..gram. 20 Gm TP PRN PRN Gabapentin (Gabapentin) 100 Mg Capsule 100 Mg PO TID Alendronate Sodium 70 Mg Tablet 1 Tab PO WEEKLY Allopurinol 300 Mg Tablet 1 Tab PO DAILY Trelegy Ellipta 100-62.5-25 (Fluticasone/Umeclidin/Vilanter) 1 Each Blst.w.dev 1 Each IH DAILY Prilosec Otc (Omeprazole Magnesium) 20 Mg Tablet.dr 40 Mg PO DAILY K-Tab ER (Potassium Chloride) 20 Meq Tablet.er 20 Meq PO DAILY Montelukast Sodium Tablet (Montelukast Sodium) 10 Mg Tablet 10 Mg PO HS Levocetirizine Dihydrochloride 5 Mg Tablet 5 Mg PO DAILY Amitriptyline Hcl 25 Mg Tablet 25 Mg PO QHS Vitamin D3 (Cholecalciferol (Vitamin D3)) 1,000 Unit Tablet 1 Tab PO DAILY Torsemide 20 Mg Tablet 2 Tab PO DAILY Daliresp (Roflumilast) 500 Mcg Tablet 1 Tab PO DAILY Atorvastatin Calcium 20 Mg Tablet 20 Mg PO HS Requip (Ropinirole Hcl) 1 Mg Tablet 3 Tab PO QHS Proair Hfa Inhaler (Albuterol Sulfate) 8.5 Gm Hfa.aer.ad 1 Puff INH PRN Q6HRS PRN Levothyroxine Sodium 50 Mcg Tablet 1 Tab PO DAILY Allergies Allergies: Coded Allergies: ibuprofen (Verified Allergy, Severe, Swelling, 09/30/21) naproxen (Verified Allergy, Severe, Shortness of Air, 09/30/21) tolerates asa piperacillin (Verified Allergy, Severe, Swelling, 09/30/21) Tolerated cefepime tazobactam (Verified Allergy, Severe, Swelling, 09/30/21) fentanyl (Verified Adverse Reaction, Severe, agitation, 09/30/21) violent behavior ROS PSYCHOLOGICAL ROS: No: Hallucinations Eyes: No Loss of vision HEENT: No: Epistaxis Respiratory: YES: Shortness of breath; No: Hemoptysis Cardiovascular: No Chest Pain Gastrointestinal: No Vomiting Genitourinary: No Hematuria Neurological: No Seizures Skin: No Rash Physical Exam General: mild distress HEENT: Atraumatic Lungs: Other (Scattered crepitations bilaterally) Abdomen: Soft Extremities: No edema Neuro: Normal speech Psych/Mental Status: Mood NL Vitals VITALS Vital Signs Date Time Temp Pulse Resp B/P (MAP) Pulse Ox O2 Delivery O2 Flow Rate FiO2 11/21/21 10:43 96.3 134 24 123/58 (79) 94 Nasal Cannula 3.0 96.3 Labs Labs Laboratory Tests Test 11/20/21 19:12 11/20/21 20:38 11/21/21 01:15 White Blood Count 8.3 x10^3/uL (4.0-11.0) Red Blood Count 2.78 x10^6/uL (3.50-5.40) Hemoglobin 8.2 g/dL (12.0-15.5) Hematocrit 26.0 % (36.0-47.0) Mean Corpuscular Volume 94 fL (79-100) Mean Corpuscular Hemoglobin 30 pg (25-35) Mean Corpuscular Hemoglobin Concent 32 g/dL (31-37) Red Cell Distribution Width 17.4 % (11.5-14.5) Platelet Count 376 x10^3/uL (140-400) Neutrophils (%) (Auto) 90 % (31-73) Lymphocytes (%) (Auto) 5 % (24-48) Monocytes (%) (Auto) 4 % (0-9) Eosinophils (%) (Auto) 0 % (0-3) Basophils (%) (Auto) 1 % (0-3) Neutrophils # (Auto) 7.5 x10^3/uL (1.8-7.7) Lymphocytes # (Auto) 0.4 x10^3/uL (1.0-4.8) Monocytes # (Auto) 0.3 x10^3/uL (0.0-1.1) Eosinophils # (Auto) 0.0 x10^3/uL (0.0-0.7) Basophils # (Auto) 0.1 x10^3/uL (0.0-0.2) Sodium Level 133 mmol/L (136-145) Potassium Level 4.2 mmol/L (3.5-5.1) Chloride Level 93 mmol/L (98-107) Carbon Dioxide Level 33 mmol/L (21-32) Anion Gap 7 (6-14) Blood Urea Nitrogen 19 mg/dL (7-20) Creatinine 1.2 mg/dL (0.6-1.0) Estimated GFR (Cockcroft-Gault) 44.8 BUN/Creatinine Ratio 16 (6-20) Glucose Level 134 mg/dL (70-99) Calcium Level 8.1 mg/dL (8.5-10.1) Magnesium Level 1.1 mg/dL (1.8-2.4) Total Bilirubin 0.5 mg/dL (0.2-1.0) Aspartate Amino Transf (AST/SGOT) 24 U/L (15-37) Alanine Aminotransferase (ALT/SGPT) 18 U/L (14-59) Alkaline Phosphatase 113 U/L (46-116) Troponin I High Sensitivity 404 ng/L (4-50) 430 ng/L (4-50) IC-Kem-N-Type Natriuretic Peptide 93980 pg/mL (0-124) Total Protein 6.6 g/dL (6.4-8.2) Albumin 2.0 g/dL (3.4-5.0) Albumin/Globulin Ratio 0.4 (1.0-1.7) SARS-CoV-2 Antigen (Rapid) Negative (NEGATIVE) Laboratory Tests Test 11/20/21 19:12 11/20/21 20:38 11/21/21 01:15 White Blood Count 8.3 x10^3/uL (4.0-11.0) Red Blood Count 2.78 x10^6/uL (3.50-5.40) Hemoglobin 8.2 g/dL (12.0-15.5) Hematocrit 26.0 % (36.0-47.0) Mean Corpuscular Volume 94 fL (79-100) Mean Corpuscular Hemoglobin 30 pg (25-35) Mean Corpuscular Hemoglobin Concent 32 g/dL (31-37) Red Cell Distribution Width 17.4 % (11.5-14.5) Platelet Count 376 x10^3/uL (140-400) Neutrophils (%) (Auto) 90 % (31-73) Lymphocytes (%) (Auto) 5 % (24-48) Monocytes (%) (Auto) 4 % (0-9) Eosinophils (%) (Auto) 0 % (0-3) Basophils (%) (Auto) 1 % (0-3) Neutrophils # (Auto) 7.5 x10^3/uL (1.8-7.7) Lymphocytes # (Auto) 0.4 x10^3/uL (1.0-4.8) Monocytes # (Auto) 0.3 x10^3/uL (0.0-1.1) Eosinophils # (Auto) 0.0 x10^3/uL (0.0-0.7) Basophils # (Auto) 0.1 x10^3/uL (0.0-0.2) Sodium Level 133 mmol/L (136-145) Potassium Level 4.2 mmol/L (3.5-5.1) Chloride Level 93 mmol/L (98-107) Carbon Dioxide Level 33 mmol/L (21-32) Anion Gap 7 (6-14) Blood Urea Nitrogen 19 mg/dL (7-20) Creatinine 1.2 mg/dL (0.6-1.0) Estimated GFR (Cockcroft-Gault) 44.8 BUN/Creatinine Ratio 16 (6-20) Glucose Level 134 mg/dL (70-99) Calcium Level 8.1 mg/dL (8.5-10.1) Magnesium Level 1.1 mg/dL (1.8-2.4) Total Bilirubin 0.5 mg/dL (0.2-1.0) Aspartate Amino Transf (AST/SGOT) 24 U/L (15-37) Alanine Aminotransferase (ALT/SGPT) 18 U/L (14-59) Alkaline Phosphatase 113 U/L (46-116) Troponin I High Sensitivity 404 ng/L (4-50) 430 ng/L (4-50) LK-Eye-T-Type Natriuretic Peptide 46028 pg/mL (0-124) Total Protein 6.6 g/dL (6.4-8.2) Albumin 2.0 g/dL (3.4-5.0) Albumin/Globulin Ratio 0.4 (1.0-1.7) SARS-CoV-2 Antigen (Rapid) Negative (NEGATIVE) Assessment/Plan Assessment/Plan 1. Acute hypoxic respiratory failure, most probably multifactorial secondary to combination of acute COPD exacerbation and acute on chronic diastolic heart failure. Continue intravenous steroids. 2. Acute on chronic diastolic heart failure: Symptoms improved with diuresis and presently she does not have any edema. She however continues to be dyspneic, raising the suspicion of pulmonary etiology. Recent 2D echo showed normalized left ventricle systolic function with EF 50 to 55%. Recent right heart catheterization did not show any significant pulmonary hypertension. Consider pulmonary team consultation. 3. 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 Recent device interrogation showed normal function. 4. Paroxysmal atrial fibrillation s/p ablation therapy followed by external ca rdioversion for recurrent atrial fibrillation and left atrial appendage closure. She is presently maintaining sinus rhythm and telemetry showed sinus tachycardia probably secondary to her dyspnea. She was taken off all anticoagulation in the past by EP service. 5. Mitral regurgitation: Patient was noted to have moderate to severe mitral regurgitation on 2D echo and was referred to valve clinic for possible mitral valve clip procedure. She was however recommended conservative management for now. 6. Hypertension: Controlled 7. Hyperlipidemia: Continue statin therapy 8. DM2: Continue treatment per IM 9. Non-STEMI, most probably type II/demand ischemia. She is presently chest pain-free. Left heart catheterization in the past did not show any significant coronary artery disease. Thank you for your consultation SAMM CRUZ MD Nov 21, 2021 14:27
[2021-11-21 15:00] VITALS: BP 123/64
[2021-11-21 19:53] VITALS: BP 117/60
[2021-11-21] MEDS: AMITRIPTYLINE HCL 25 MG TABLET. PO SCH (21:35)
[2021-11-21] MEDS: ATORVASTATIN CALCIUM 20 MG TABLET PO SCH (21:35)
[2021-11-21] MEDS: MONTELUKAST SODIUM 10 MG TABLET. PO SCH (21:35)
[2021-11-21] MEDS: rOPINIRole 1 MG TABLET. PO SCH (21:36)
[2021-11-21] MEDS: IPRATRPIUM/ALBUTEROL 0.5/2.5MG 3 ML NEBU. NEB SCH (21:40)
[2021-11-21 22:46] VITALS: BP 99/61
[2021-11-22 02:25] VITALS: BP 107/59
[2021-11-22] MEDS: methylPREDNISolone SOD SUCC PF 40 MG/ML VIAL. IV SCH ×3 (06:15→19:51)
[2021-11-22 06:51] LABS: BASO % 0 % (0-3); EOS % 0 % (0-3); HEMATOCRIT 24.2 % (36.0-47.0); HEMOGLOBIN 7.6 g/dL (12.0-15.5); LYMPH # 0.2 x10^3/uL (1.0-4.8); LYMPH % 4 % (24-48); MEAN CORPUSCULAR HEMOGLOBIN 30 pg (25-35); MEAN CORPUSCULAR HGB CONC 32 g/dL (31-37); MEAN CORPUSCULAR VOLUME 94 fL (79-100); MONO # 0.1 x10^3/uL (0.0-1.1); MONO % 3 % (0-9); NEUT # 3.5 x10^3/uL (1.8-7.7); NEUT % 93 % (31-73); PLATELET COUNT 383 x10^3/uL (140-400); RED BLOOD COUNT 2.58 x10^6/uL (3.50-5.40); RED CELL DISTRIBUTION WIDTH 17.6 % (11.5-14.5); WHITE BLOOD COUNT 3.8 x10^3/uL (4.0-11.0)
[2021-11-22 06:59] VITALS: BP 97/52
[2021-11-22 07:00] LABS: CALCIUM 8.3 mg/dL (8.5-10.1); CREATININE 0.9 mg/dL (0.6-1.0); GFR 62.5; MAGNESIUM 1.6 mg/dL (1.8-2.4); PHOSPHORUS 4.3 mg/dL (2.6-4.7); POTASSIUM 4.1 mmol/L (3.5-5.1)
[2021-11-22] MEDS: IPRATRPIUM/ALBUTEROL 0.5/2.5MG 3 ML NEBU. NEB SCH ×5 (08:00→21:32)
[2021-11-22] MEDS: ENOXAPARIN 30 MG/0.3 ML SYRINGE. SQ SCH (08:18)
[2021-11-22] MEDS: CLOPIDOGREL BISULFATE 75 MG TABLET PO SCH (08:18)
[2021-11-22] MEDS: FUROSEMIDE 40 MG/4 ML VIAL. IVP SCH (08:19)
[2021-11-22] MEDS: FERROUS SULFATE 325 MG TABLET. PO SCH (08:19)
[2021-11-22] MEDS: SACUBITRIL/VALSARTAN 24/26MG TABLET. PO SCH ×2 (08:19→19:50)
[2021-11-22] MEDS: LEVOTHYROXINE 50 MCG TABLET PO SCH (08:19)
[2021-11-22] MEDS: THIAMINE 100 MG TABLET. PO SCH (08:19)
[2021-11-22] MEDS: CHOLECALCIFEROL (VITAMIN D3) 1,000 UNIT TABLET PO SCH (08:19)
[2021-11-22] MEDS: GABAPENTIN 100 MG CAPSULE. PO SCH ×3 (08:19→19:52)
[2021-11-22] MEDS: ALLOPURINOL 300 MG TABLET. PO SCH (08:19)
[2021-11-22] MEDS: ROFLUMILAST 500 MCG TABLET. PO SCH (08:19)
[2021-11-22] MEDS ORDERED: MAGNESIUM SULFATE 2GM 50 ML IV ONE (09:00)
[2021-11-22] MEDS ORDERED: DOXYCYCLINE HYCLATE 100 MG TABLET PO ONE ×2 (09:15)
[2021-11-22] MEDS ORDERED: CONTRAST GIVEN. MC PRN (09:30)
[2021-11-22] MEDS: IOHEXOL 350 MG/ML 100 ML VIAL. IV ONE (09:30)
[2021-11-22] MEDS: DOXYCYCLINE HYCLATE 100 MG TABLET PO SCH ×2 (09:50→19:50)
--- NOTE | 2021-11-22 10:04 | CONS ---
DATE OF CONSULTATION: 11/22/2021 REASON FOR CONSULTATION: I was asked to see this 66-year-old for acute on chronic respiratory failure. HISTORY OF PRESENT ILLNESS: She does have history of [id number] smoking, quit smoking 3 years ago. She has chronic respiratory failure, is on oxygen 3 liters per minute via nasal cannula. She does have significant cardiac history with nonischemic cardiomyopathy, status post biventricular ICD and atrial fibrillation, status post ablation. Her recent echo, her ejection fraction was normal. She has had increased shortness of breath, cough, wheezing, chest tightness for the past few days. She went to [place], a 13-hour drive on 11/08 and came back on 11/14. She did develop lower extremity edema while she was there. She saw Dr. Driscoll and her Lasix dose was increased and her lower extremity edema did improve, but still has some lower extremity edema. She has had increased cough, not much sputum production. She has had wheezing. She denies fever or chills. PAST MEDICAL HISTORY: COPD; diastolic CHF; history of ischemic cardiomyopathy, status post biventricular ICD; history of atrial fibrillation, status post ablation followed by an external cardioversion for recurrent atrial fibrillation and left atrial appendage; mitral regurgitation, moderate to severe; hypertension; hyperlipidemia; diabetes mellitus; chronic respiratory failure. ALLERGIES: FENTANYL, IBUPROFEN, NAPROSYN, PIPERACILLIN/TAZOBACTAM. MEDICATIONS: Currently, she is on Lasix 40 mg IV daily, mag sulfate, vitamin C, Requip, Singulair, Lipitor, Elavil, DuoNeb, Solu-Medrol 40 mg IV every 8 hours, Lovenox 30 mg subcutaneous daily, Entresto, Plavix, Voltaren, ferrous sulfate, allopurinol, vitamin D, gabapentin, Synthroid, Daliresp. SOCIAL HISTORY: History of [id number] smoking, quit smoking 3 years ago. FAMILY HISTORY: Hypertension. REVIEW OF SYSTEMS: As mentioned as above, she has not been on anticoagulation since June last year. Other systems otherwise negative. PHYSICAL EXAMINATION: GENERAL: This is a well-developed lady. VITAL SIGNS: Her O2 saturation on 3 liters of oxygen is 93%, respiratory rate 20, heart rate 120, blood pressure 97/52, temperature 97.2. HEENT: Normocephalic, atraumatic. Pupils equal, round, reactive to light. There is shallow oropharynx. Nose is clear. NECK: There is no lymphadenopathy or thyromegaly. Positive JVD. CARDIOVASCULAR: Tachycardic. CHEST INSPECTION: There is mild accessory muscle use. LUNGS: There are bibasilar crackles and expiratory wheezing, dullness at the bases. ABDOMEN: Soft. Bowel sounds are good. There is no mass. EXTREMITIES: There is trace lower extremity edema. LYMPHATICS: There is no lymphadenopathy. NEUROLOGIC: Alert and oriented. LABORATORY DATA: I reviewed the following lab data. Chest x-ray shows bilateral infiltrate, right more than left. WBC 8.3, hemoglobin 8.2, platelet 376. COVID-19 PCR rapid negative. Sodium 133, potassium 4.2, chloride 93, CO2 of 33, BUN 19, creatinine 1.2. Repeat creatinine 0.9, glucose 185. BNP 21,408. Troponin high sensitivity 404, repeat 430. Total bili 0.5, AST 24, ALT 18, alk phos 113. IMPRESSION: 1. Acute hypoxemic respiratory failure, multifactorial in etiology including acute diastolic congestive heart failure, acute exacerbation of chronic obstructive pulmonary disease, acute bronchitis, rule out thromboembolic disease. 2. Abnormal chest x-ray. 3. Acute diastolic congestive heart failure. 4. Acute exacerbation of chronic obstructive pulmonary disease. 5. Acute bronchitis. 6. History of nonischemic cardiomyopathy, status post biventricular implantable cardioverter defibrillator. A subsequent echocardiogram showed normal ejection fraction. 7. Paroxysmal atrial fibrillation, status post ablation followed by external cardioversion for recurrent atrial fibrillation, left atrial appendage closure, now in sinus tachycardia. She has been off anticoagulation since June of last year. 8. Mitral regurgitation, moderate to severe. 9. Hypertension. 10. Diabetes mellitus. 11. Non-ST elevation myocardial infarction. PLAN AND RECOMMENDATIONS: 1. Titrate FiO2 to keep O2 saturation 90%. 2. Continue bronchodilator. 3. Solu-Medrol 40 mg IV every 8 hours. 4. Start doxycycline 100 mg b.i.d. 5. I will do lower extremity venous Doppler. 6. I will do a CT angiogram of the chest. We need to rule out thromboembolic disease as she has recent [address] trip and lower extremity edema. 7. Agree with Lasix. 8. Lovenox for DVT prophylaxis. 9. Protonix for stress ulcer prophylaxis. 10. Monitor respiratory status very closely. Thank you very much for allowing me to participate in care of this very nice lady. The findings and recommendations were discussed with the patient and RN. I have answered all of the patient's questions. She understood and agreed to proceed with the plan. JUN DR: Kareem TID: [id number] BONIFACIO
[2021-11-22 10:25] VITALS: BP 97/53
--- NOTE | 2021-11-22 11:31 | PDOC ---
[employer] PROGRESS NOTE Date of Service DOS: DATE: 11/22/21 TIME: 11:29 Chief Complaint Chief Complaint Assessment/Plan Acute hypoxic respiratory failure Elevated troponins due to demand ischemia Elevated BNP likely due to volume overload versus chronic hypoxia Isolated elevated alkaline phosphatase Home oxygen therapy at 3 L currently at baseline History of CAD asymptomatic History of CHF compensated Diabetes mellitus type 2 insulin requiring Essential hypertension hyperlipidemia Acquired hypothyroidism History of AICD History of diastolic CHF, grade 1 abnormal relaxation pattern Hx left shoulder surgery, Hx tobacco abuse (quit 3 years ago) Admit to hospitalist service for further management Pulmonology consult for COPD work-up and PE rule out Cardiology consult for elevated troponins IV steroids IV Lasix diuresis as needed Combivent inhaler Lovenox for DVT prophylaxis Protonix GI prophylaxis ADA diet CODE STATUS full Discussed with RN and SW Disposition inpatient management as above DPOA: History of Present Illness History of Present Illness 66 year old female with extensive past medical history including CAD, CHF and COPD who presents with 1 week history of shortness of breath. Patient states she saw her sueding machine operator, Dr. Driscoll, 2 days ago regarding her symptoms. She states she was instructed to double her Lasix for a few days. Patient reported associated bilateral lower extremity swelling, that has since resolved. Patient reports she is unable to lay down to sleep and has had to periodically increase her daily oxygen by 0.5-1 L during the day. Patient denies chest pain, palpitations, cough, fever, chills. 11/22/2021 No acute events overnight. Patient seen examined bedside. Patient saturating 93% on 3 L nasal cannula. Not more short of breath than usual. Edema has improved. I have consulted pulmonology for further work-up. As of now we will try to rule out PE. We will continue with IV steroids and diuresis as needed. Appreciate cardiology and pulmonary recommendations. Patient's chart, labs, images were reviewed and discussed with RN Vitals/I&O Vitals/I&O: Vital Signs Date Time Temp Pulse Resp B/P (MAP) Pulse Ox O2 Delivery O2 Flow Rate FiO2 11/22/21 10:25 97.6 116 18 97/53 (68) 98 Nasal Cannula 3.0 97.6 I & O 11/21/21 11/21/21 11/22/21 15:00 23:00 07:00 Intake Total 480 ml 480 ml 0 ml Output Total 500 ml Balance 480 ml -20 ml 0 ml Physical Exam General: Alert, Oriented X3, Cooperative, mild distress Heart: Regular rate Lungs: Wheezing, Crackles Abdomen: Soft Extremities: No clubbing, No edema Skin: No rashes Labs Labs: Laboratory Tests Test 11/22/21 06:20 White Blood Count 3.8 x10^3/uL (4.0-11.0) Red Blood Count 2.58 x10^6/uL (3.50-5.40) Hemoglobin 7.6 g/dL (12.0-15.5) Hematocrit 24.2 % (36.0-47.0) Mean Corpuscular Volume 94 fL (79-100) Mean Corpuscular Hemoglobin 30 pg (25-35) Mean Corpuscular Hemoglobin Concent 32 g/dL (31-37) Red Cell Distribution Width 17.6 % (11.5-14.5) Platelet Count 383 x10^3/uL (140-400) Neutrophils (%) (Auto) 93 % (31-73) Lymphocytes (%) (Auto) 4 % (24-48) Monocytes (%) (Auto) 3 % (0-9) Eosinophils (%) (Auto) 0 % (0-3) Basophils (%) (Auto) 0 % (0-3) Neutrophils # (Auto) 3.5 x10^3/uL (1.8-7.7) Lymphocytes # (Auto) 0.2 x10^3/uL (1.0-4.8) Monocytes # (Auto) 0.1 x10^3/uL (0.0-1.1) Eosinophils # (Auto) 0.0 x10^3/uL (0.0-0.7) Basophils # (Auto) 0.0 x10^3/uL (0.0-0.2) Sodium Level 138 mmol/L (136-145) Potassium Level 4.1 mmol/L (3.5-5.1) Chloride Level 98 mmol/L (98-107) Carbon Dioxide Level 38 mmol/L (21-32) Anion Gap 2 (6-14) Blood Urea Nitrogen 14 mg/dL (7-20) Creatinine 0.9 mg/dL (0.6-1.0) Estimated GFR (Cockcroft-Gault) 62.5 Glucose Level 185 mg/dL (70-99) Calcium Level 8.3 mg/dL (8.5-10.1) Phosphorus Level 4.3 mg/dL (2.6-4.7) Magnesium Level 1.6 mg/dL (1.8-2.4) Assessment and Plan Assessmemt and Plan Problems Medical Problems: (1) Acute exacerbation of CHF (congestive heart failure) Status: Acute (2) Elevated troponin Status: Acute Comment Review of Relevant I have reviewed the following items jon (where applicable) has been applied. Medications: Current Medications Medications (Trade) Dose Ordered Sig/Keshav Route PRN Reason Start Time Stop Time Status Last Admin Dose Admin Amitriptyline HCl (Elavil) 25 mg QHS PO 11/21/21 21:00 11/21/21 21:35 Atorvastatin Calcium (Lipitor) 20 mg HS PO 11/21/21 21:00 11/21/21 21:35 Montelukast Sodium (Singulair) 10 mg HS PO 11/21/21 21:00 11/21/21 21:35 Ropinirole HCl (Requip) 3 mg QHS PO 11/21/21 21:00 11/21/21 21:36 Methylprednisolone Sodium Succinate (SOLU-Medrol 40MG VIAL) 40 mg Q8HRS IV 11/21/21 14:00 11/22/21 06:15 Thiamine Mononitrate (Vitamin B-1) 300 mg DAILY PO 11/22/21 09:00 11/22/21 08:19 Albuterol/ Ipratropium (Duoneb) 3 ml RTQID NEB 11/21/21 16:00 11/22/21 09:00 Magnesium Sulfate 50 ml @ 25 mls/hr 1X ONCE IV 11/22/21 09:00 11/22/21 10:59 DC 11/22/21 09:05 Doxycycline Hyclate (Vibra-Tab) 100 mg BID PO 11/22/21 10:00 11/22/21 09:50 Iohexol (Omnipaque 350 Mg/ml) 90 ml 1X ONCE IV 11/22/21 09:30 11/22/21 09:31 DC 11/22/21 09:30 Justifications for Admission Other Justification CHF exacerbation and elevated troponins BRAYAN RAYMOND MD Nov 22, 2021 11:31
--- NOTE | 2021-11-22 11:59 | RAD ---
EXAM: Bilateral lower extremity venous Doppler sonogram. HISTORY: Pain and swelling. TECHNIQUE: Linares scale and color Doppler sonographic evaluation of the bilateral lower extremity veins with spectral waveform analysis was performed. FINDINGS: There is normal color flow, normal compressibility and there are normal spectral waveforms in the common femoral, superficial femoral, popliteal, posterior tibial and greater saphenous veins. IMPRESSION: No Doppler evidence of lower extremity deep venous thrombosis. Electronically signed by: Peyton Pizano MD (11/22/2021 11:57 AM) [facility]
[2021-11-22 12:23] LABS: % BANDS 3 % (0-9); % LYMPHS 4 % (24-48); % MONOS 1 % (0-10); % SEGS 92 % (35-66); ANISOCYTOSIS SLIGHT; PLT ESTIMATE ADEQUATE (ADEQUATE)
--- NOTE | 2021-11-22 12:39 | PDOC ---
PROGRESS NOTES Date of Service: DATE: 11/22/21 TIME: 12:38 Subjective Subjective Dyspnea improved but has not resolved Objective Objective Vital Signs Date Time Temp Pulse Resp B/P (MAP) Pulse Ox O2 Delivery O2 Flow Rate FiO2 11/22/21 10:25 97.6 116 18 97/53 (68) 98 Nasal Cannula 3.0 97.6 Intake and Output 11/22/21 07:00 Intake Total 960 ml Output Total 500 ml Balance 460 ml Intake Oral 960 ml Output Urine Total 500 ml Physical Exam Abdomen: Soft Heart: Regular rate Extremities: No clubbing, No edema General: Alert, Oriented X3, Cooperative, mild distress HEENT: Atraumatic Lungs: Other (Scattered crepitations bilaterally) MUSCULOSKELETAL: No deformity, No swelling Neuro: Normal speech Psych/Mental Status: Mood NL Skin: No rashes Assessment Assessment 1. Acute hypoxic respiratory failure, most probably multifactorial secondary to combination of acute COPD exacerbation and acute on chronic diastolic heart failure. Continue intravenous steroids. 2. Acute on chronic diastolic heart failure: Symptoms improved with diuresis and presently she does not have any edema. She however continues to be dyspneic -continue work-up per pulmonary team. Recent 2D echo showed normalized left ventricle systolic function with EF 50 to 55%. Recent right heart catheterization did not show any significant pulmonary hypertension. 3. 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 Recent device interrogation showed normal function. 4. Paroxysmal atrial fibrillation s/p ablation therapy followed by external cardioversion for recurrent atrial fibrillation and left atrial appendage closure. She is presently maintaining sinus rhythm and telemetry showed sinus tachycardia probably secondary to her dyspnea. She was taken off all anticoagulation in the past by EP service. 5. Mitral regurgitation: Patient was noted to have moderate to severe mitral regurgitation on 2D echo and was referred to valve clinic for possible mitral valve clip procedure. She was however recommended conservative management for now. 6. Hypertension: Controlled 7. Hyperlipidemia: Continue statin therapy 8. DM2: Continue treatment per IM 9. Non-STEMI, most probably type II/demand ischemia. She is presently chest pain-free. Left heart catheterization in the past did not show any significant coronary artery disease. Plan Plan of Care Problems Medical Problems: (1) Acute exacerbation of CHF (congestive heart failure) Status: Acute (2) Elevated troponin Status: Acute Comment Review of Relevant I have reviewed the following items jon (where applicable) has been applied. Labs Laboratory Tests Test 11/22/21 06:20 White Blood Count 3.8 x10^3/uL (4.0-11.0) Red Blood Count 2.58 x10^6/uL (3.50-5.40) Hemoglobin 7.6 g/dL (12.0-15.5) Hematocrit 24.2 % (36.0-47.0) Mean Corpuscular Volume 94 fL (79-100) Mean Corpuscular Hemoglobin 30 pg (25-35) Mean Corpuscular Hemoglobin Concent 32 g/dL (31-37) Red Cell Distribution Width 17.6 % (11.5-14.5) Platelet Count 383 x10^3/uL (140-400) Neutrophils (%) (Auto) 93 % (31-73) Lymphocytes (%) (Auto) 4 % (24-48) Monocytes (%) (Auto) 3 % (0-9) Eosinophils (%) (Auto) 0 % (0-3) Basophils (%) (Auto) 0 % (0-3) Neutrophils # (Auto) 3.5 x10^3/uL (1.8-7.7) Lymphocytes # (Auto) 0.2 x10^3/uL (1.0-4.8) Monocytes # (Auto) 0.1 x10^3/uL (0.0-1.1) Eosinophils # (Auto) 0.0 x10^3/uL (0.0-0.7) Basophils # (Auto) 0.0 x10^3/uL (0.0-0.2) Segmented Neutrophils % 92 % (35-66) Band Neutrophils % 3 % (0-9) Lymphocytes % 4 % (24-48) Monocytes % 1 % (0-10) Platelet Estimate Adequate (ADEQUATE) Anisocytosis Slight Sodium Level 138 mmol/L (136-145) Potassium Level 4.1 mmol/L (3.5-5.1) Chloride Level 98 mmol/L (98-107) Carbon Dioxide Level 38 mmol/L (21-32) Anion Gap 2 (6-14) Blood Urea Nitrogen 14 mg/dL (7-20) Creatinine 0.9 mg/dL (0.6-1.0) Estimated GFR (Cockcroft-Gault) 62.5 Glucose Level 185 mg/dL (70-99) Calcium Level 8.3 mg/dL (8.5-10.1) Phosphorus Level 4.3 mg/dL (2.6-4.7) Magnesium Level 1.6 mg/dL (1.8-2.4) Medications Current Medications Albuterol/ Ipratropium (Duoneb) 3 ml RTQID NEB Last administered on 11/22/21at 12:36; Start 11/21/21 at 16:00 Amitriptyline HCl (Elavil) 25 mg QHS PO Last administered on 11/21/21at 21:35; Start 11/21/21 at 21:00 Atorvastatin Calcium (Lipitor) 20 mg HS PO Last administered on 11/21/21at 21:35; Start 11/21/21 at 21:00 Doxycycline Hyclate (Vibra-Tab) 100 mg 1X ONCE PO ; Start 11/22/21 at 09:15; Stop 11/22/21 at 09:16; Status UNV Doxycycline Hyclate (Vibra-Tab) 100 mg 1X ONCE PO ; Start 11/22/21 at 09:15; Stop 11/22/21 at 09:16; Status UNV Doxycycline Hyclate (Vibra-Tab) 100 mg BID PO Last administered on 11/22/21at 09:50; Start 11/22/21 at 10:00 Enoxaparin Sodium (Lovenox 40mg Syringe) 40 mg Q24H SQ ; Start 11/23/21 at 09:00 Info (CONTRAST GIVEN -- Rx MONITORING) 1 each PRN DAILY PRN MC SEE COMMENTS; Start 11/22/21 at 09:30; Stop 11/24/21 at 09:29 Iohexol (Omnipaque 350 Mg/ml) 90 ml 1X ONCE IV Last administered on 11/22/21at 09:30; Start 11/22/21 at 09:30; Stop 11/22/21 at 09:31; Status DC Lactobacillus Rhamnosus (Culturelle) 1 cap BID PO ; Start 11/22/21 at 21:00 Magnesium Sulfate 50 ml @ 25 mls/hr 1X ONCE IV Last administered on 11/22/21at 09:05; Start 11/22/21 at 09:00; Stop 11/22/21 at 10:59; Status DC Methylprednisolone Sodium Succinate (SOLU-Medrol 40MG VIAL) 40 mg Q8HRS IV Last administered on 11/22/21at 06:15; Start 11/21/21 at 14:00 Montelukast Sodium (Singulair) 10 mg HS PO Last administered on 11/21/21at 21:35; Start 11/21/21 at 21:00 Ropinirole HCl (Requip) 3 mg QHS PO Last administered on 11/21/21at 21:36; Start 11/21/21 at 21:00 Thiamine Mononitrate (Vitamin B-1) 300 mg DAILY PO Last administered on 11/22/21at 08:19; Start 11/22/21 at 09:00 Vitals/I & O Vital Sign - Last 24 Hours 11/21/21 11/21/21 11/21/21 11/21/21 15:00 19:49 19:53 21:35 Temp 98.9 97.5 98.9 97.5 Pulse 132 120 120 Resp 18 18 B/P (MAP) 123/64 (83) 117/60 (79) 117/60 Pulse Ox 96 97 O2 Delivery Nasal Cannula Nasal Cannula Nasal Cannula O2 Flow Rate 3.0 3.0 3.0 11/21/21 11/21/21 11/22/21 11/22/21 21:42 22:46 02:25 06:59 Temp 98.1 98.3 97.2 98.1 98.3 97.2 Pulse 141 117 138 Resp 16 16 18 B/P (MAP) 99/61 (74) 107/59 (75) 97/52 (67) Pulse Ox 99 99 98 93 O2 Delivery Nasal Cannula Nasal Cannula Nasal Cannula Nasal Cannula O2 Flow Rate 3.0 3.0 3.0 3.0 11/22/21 11/22/21 11/22/21 11/22/21 08:00 08:19 09:00 10:25 Temp 97.6 97.6 Pulse 138 116 Resp 18 B/P (MAP) 97/52 97/53 (68) Pulse Ox 98 98 O2 Delivery Nasal Cannula Nasal Cannula Nasal Cannula O2 Flow Rate 3.0 3.0 3.0 Intake and Output 11/21/21 11/21/21 11/22/21 15:00 23:00 07:00 Intake Total 480 ml 480 ml 0 ml Output Total 500 ml Balance 480 ml -20 ml 0 ml SAMM CRUZ MD Nov 22, 2021 12:39
--- NOTE | 2021-11-22 13:49 | RAD ---
CTA scan of the Chest with Contrast (Pulmonary Embolism protocol) 11/22/2021 Clinical History: Shortness of breath. Chest pain. Technique: After the intravenous administration of 90 cc of Omnipaque 350, contiguous, 0.625 mm axial sections were obtained through the chest. 2 mm axial and 3D MIP coronal and sagittal reconstructed images were obtained. One or more of the following individualized dose reduction techniques were utilized for this study: 1. Automated exposure control. 2. Adjustment of the mA and/or kV according to patient size. 3. Use of iterative reconstruction technique. Findings: Comparison study is dated 07/26/2021. No filling defect is seen within the major branches of either pulmonary artery. There is no CT eviden ce of pulmonary embolism. The heart is mildly enlarged. Atherosclerotic calcification of the thoracic aorta is seen. The thoracic aorta tapers normally. An occlusion device is seen within the left atria l appendage. A pacemaker is unchanged in position. A right internal jugular Hjayka-q-Isov type cathet er is seen with tip extending to the SVC/right atrial junction. There are small bilateral pleural effusions. Congestive changes are seen involving both lungs. Small bulla are noted throughout both lungs. Dependent subsegmental atelectasis is seen bilaterally. A 1 cm nodule is seen within the lateral aspect of the right upper lobe which has not significantly changed . Multiple additional noncalcified nodules are seen throughout both upper lobes which measure 3 to 7 mm in size. These have not significant changed. What appears to be a focal area of infiltrate is seen involving the lateral aspect of the right lower lobe this measures approximately 3 cm in size. No pn eumothorax is noted. Impression: There is no CT evidence of pulmonary embolism. Electronically signed by: Clyde Hsieh MD (11/22/2021 1:47 PM) [id number]
[2021-11-22 14:31] VITALS: BP 92/50
[2021-11-22 19:06] VITALS: BP 113/70
[2021-11-22] MEDS: AMITRIPTYLINE HCL 25 MG TABLET. PO SCH (19:50)
[2021-11-22] MEDS: MONTELUKAST SODIUM 10 MG TABLET. PO SCH (19:50)
[2021-11-22] MEDS: rOPINIRole 1 MG TABLET. PO SCH (19:50)
[2021-11-22] MEDS: LACTOBACILLUS RHAMNOSUS GG 1 CAPSULE. PO SCH (19:50)
[2021-11-22] MEDS: ATORVASTATIN CALCIUM 20 MG TABLET PO SCH (19:51)
[2021-11-22 22:46] VITALS: BP 115/56
[2021-11-23 03:05] VITALS: BP 137/63
[2021-11-23] MEDS: methylPREDNISolone SOD SUCC PF 40 MG/ML VIAL. IV SCH ×3 (05:06→20:22)
[2021-11-23 05:30] LABS: BASO % 0 % (0-3); EOS % 0 % (0-3); HEMATOCRIT 23.4 % (36.0-47.0); HEMOGLOBIN 7.2 g/dL (12.0-15.5); LYMPH # 0.2 x10^3/uL (1.0-4.8); LYMPH % 2 % (24-48); MEAN CORPUSCULAR HEMOGLOBIN 29 pg (25-35); MEAN CORPUSCULAR HGB CONC 31 g/dL (31-37); MEAN CORPUSCULAR VOLUME 94 fL (79-100); MONO # 0.3 x10^3/uL (0.0-1.1); MONO % 3 % (0-9); NEUT # 9.4 x10^3/uL (1.8-7.7); NEUT % 95 % (31-73); PLATELET COUNT 454 x10^3/uL (140-400); RED CELL DISTRIBUTION WIDTH 17.8 % (11.5-14.5); WHITE BLOOD COUNT 9.9 x10^3/uL (4.0-11.0)
[2021-11-23 05:32] LABS: POTASSIUM 4.9 mmol/L (3.5-5.1)
[2021-11-23 05:41] LABS: CALCIUM 8.5 mg/dL (8.5-10.1); CREATININE 1.4 mg/dL (0.6-1.0); GFR 37.5; MAGNESIUM 2.1 mg/dL (1.8-2.4)
[2021-11-23] MEDS: IPRATRPIUM/ALBUTEROL 0.5/2.5MG 3 ML NEBU. NEB SCH ×4 (07:14→20:40)
[2021-11-23 07:24] VITALS: BP 96/52
[2021-11-23] MEDS: FUROSEMIDE 40 MG/4 ML VIAL. IVP SCH (07:59)
[2021-11-23] MEDS: SACUBITRIL/VALSARTAN 24/26MG TABLET. PO SCH (08:00)
[2021-11-23] MEDS: ROFLUMILAST 500 MCG TABLET. PO SCH (08:00)
[2021-11-23] MEDS: FERROUS SULFATE 325 MG TABLET. PO SCH (08:00)
[2021-11-23] MEDS: LEVOTHYROXINE 50 MCG TABLET PO SCH (08:00)
[2021-11-23] MEDS: CHOLECALCIFEROL (VITAMIN D3) 1,000 UNIT TABLET PO SCH (08:00)
[2021-11-23] MEDS: GABAPENTIN 100 MG CAPSULE. PO SCH ×3 (08:00→19:09)
[2021-11-23] MEDS: LACTOBACILLUS RHAMNOSUS GG 1 CAPSULE. PO SCH ×2 (08:00→19:09)
[2021-11-23] MEDS: ALLOPURINOL 300 MG TABLET. PO SCH (08:01)
[2021-11-23] MEDS: ENOXAPARIN 40 MG/0.4 ML SYRINGE. SQ SCH (08:01)
[2021-11-23] MEDS: THIAMINE 100 MG TABLET. PO SCH (08:01)
[2021-11-23] MEDS: CLOPIDOGREL BISULFATE 75 MG TABLET PO SCH (08:01)
[2021-11-23] MEDS: DOXYCYCLINE HYCLATE 100 MG TABLET PO SCH ×2 (08:01→19:15)
--- NOTE | 2021-11-23 10:09 | PDOC ---
PULMONARY PROGRESS NOTES DATE: 11/23/21 TIME: 10:00 Subjective patient resting in bed, on 3L NC. complains of sob, mildy tachypneic. reports dry cough. Vitals Vital Signs Date Time Temp Pulse Resp B/P (MAP) Pulse Ox O2 Delivery O2 Flow Rate FiO2 11/23/21 08:00 121 96/52 11/23/21 07:33 Nasal Cannula 3.0 11/23/21 07:24 97.8 18 99 97.8 General: Alert, No acute distress HEENT: Other Lungs: Wheezing, Crackles Cardiovascular: S1, S2 Abdomen: Soft, Non-tender Extremities: No Edema Labs Laboratory Tests Test 11/22/21 06:20 11/23/21 05:10 White Blood Count 3.8 x10^3/uL (4.0-11.0) 9.9 x10^3/uL (4.0-11.0) Red Blood Count 2.58 x10^6/uL (3.50-5.40) 2.50 x10^6/uL (3.50-5.40) Hemoglobin 7.6 g/dL (12.0-15.5) 7.2 g/dL (12.0-15.5) Hematocrit 24.2 % (36.0-47.0) 23.4 % (36.0-47.0) Mean Corpuscular Volume 94 fL (79-100) 94 fL (79-100) Mean Corpuscular Hemoglobin 30 pg (25-35) 29 pg (25-35) Mean Corpuscular Hemoglobin Concent 32 g/dL (31-37) 31 g/dL (31-37) Red Cell Distribution Width 17.6 % (11.5-14.5) 17.8 % (11.5-14.5) Platelet Count 383 x10^3/uL (140-400) 454 x10^3/uL (140-400) Neutrophils (%) (Auto) 93 % (31-73) 95 % (31-73) Lymphocytes (%) (Auto) 4 % (24-48) 2 % (24-48) Monocytes (%) (Auto) 3 % (0-9) 3 % (0-9) Eosinophils (%) (Auto) 0 % (0-3) 0 % (0-3) Basophils (%) (Auto) 0 % (0-3) 0 % (0-3) Neutrophils # (Auto) 3.5 x10^3/uL (1.8-7.7) 9.4 x10^3/uL (1.8-7.7) Lymphocytes # (Auto) 0.2 x10^3/uL (1.0-4.8) 0.2 x10^3/uL (1.0-4.8) Monocytes # (Auto) 0.1 x10^3/uL (0.0-1.1) 0.3 x10^3/uL (0.0-1.1) Eosinophils # (Auto) 0.0 x10^3/uL (0.0-0.7) 0.0 x10^3/uL (0.0-0.7) Basophils # (Auto) 0.0 x10^3/uL (0.0-0.2) 0.0 x10^3/uL (0.0-0.2) Segmented Neutrophils % 92 % (35-66) Band Neutrophils % 3 % (0-9) Lymphocytes % 4 % (24-48) Monocytes % 1 % (0-10) Platelet Estimate Adequate (ADEQUATE) Anisocytosis Slight Sodium Level 138 mmol/L (136-145) 131 mmol/L (136-145) Potassium Level 4.1 mmol/L (3.5-5.1) 4.9 mmol/L (3.5-5.1) Chloride Level 98 mmol/L (98-107) 91 mmol/L (98-107) Carbon Dioxide Level 38 mmol/L (21-32) 34 mmol/L (21-32) Anion Gap 2 (6-14) 6 (6-14) Blood Urea Nitrogen 14 mg/dL (7-20) 25 mg/dL (7-20) Creatinine 0.9 mg/dL (0.6-1.0) 1.4 mg/dL (0.6-1.0) Estimated GFR (Cockcroft-Gault) 62.5 37.5 Glucose Level 185 mg/dL (70-99) 214 mg/dL (70-99) Calcium Level 8.3 mg/dL (8.5-10.1) 8.5 mg/dL (8.5-10.1) Phosphorus Level 4.3 mg/dL (2.6-4.7) Magnesium Level 1.6 mg/dL (1.8-2.4) 2.1 mg/dL (1.8-2.4) Laboratory Tests Test 11/23/21 05:10 White Blood Count 9.9 x10^3/uL (4.0-11.0) Red Blood Count 2.50 x10^6/uL (3.50-5.40) Hemoglobin 7.2 g/dL (12.0-15.5) Hematocrit 23.4 % (36.0-47.0) Mean Corpuscular Volume 94 fL (79-100) Mean Corpuscular Hemoglobin 29 pg (25-35) Mean Corpuscular Hemoglobin Concent 31 g/dL (31-37) Red Cell Distribution Width 17.8 % (11.5-14.5) Platelet Count 454 x10^3/uL (140-400) Neutrophils (%) (Auto) 95 % (31-73) Lymphocytes (%) (Auto) 2 % (24-48) Monocytes (%) (Auto) 3 % (0-9) Eosinophils (%) (Auto) 0 % (0-3) Basophils (%) (Auto) 0 % (0-3) Neutrophils # (Auto) 9.4 x10^3/uL (1.8-7.7) Lymphocytes # (Auto) 0.2 x10^3/uL (1.0-4.8) Monocytes # (Auto) 0.3 x10^3/uL (0.0-1.1) Eosinophils # (Auto) 0.0 x10^3/uL (0.0-0.7) Basophils # (Auto) 0.0 x10^3/uL (0.0-0.2) Sodium Level 131 mmol/L (136-145) Potassium Level 4.9 mmol/L (3.5-5.1) Chloride Level 91 mmol/L (98-107) Carbon Dioxide Level 34 mmol/L (21-32) Anion Gap 6 (6-14) Blood Urea Nitrogen 25 mg/dL (7-20) Creatinine 1.4 mg/dL (0.6-1.0) Estimated GFR (Cockcroft-Gault) 37.5 Glucose Level 214 mg/dL (70-99) Calcium Level 8.5 mg/dL (8.5-10.1) Magnesium Level 2.1 mg/dL (1.8-2.4) Medications Active Scripts Medications Dose Route/Sig Max Daily Dose Days Date Category Ferrous Sulfate 325 Mg Tablet 1 Tab PO DAILY 07/26/21 Reported Clopidogrel (Clopidogrel Bisulfate) 75 Mg Tablet 1 Tab PO DAILY 07/20/21 Reported Spironolactone 25 Mg Tablet 25 Mg PO DAILY 05/19/21 Reported Metoprolol Succinate ( Xl ) (Metoprolol Succinate) 25 Mg Tab.er.24h 25 Mg PO DAILY 05/19/21 Reported Voltaren Arthritis Pain (Diclofenac Sodium) 20 Gm Gel..gram. 20 Gm TP PRN PRN 05/19/21 Reported Entresto 24 mg-26 mg Tablet (Sacubitril/Valsartan) 1 Each Tablet 1 Each PO BID 30 11/19/20 Rx Gabapentin (Gabapentin) 100 Mg Capsule 100 Mg PO TID 10/18/20 Reported Alendronate Sodium 70 Mg Tablet 1 Tab PO WEEKLY 10/16/20 Reported Allopurinol 300 Mg Tablet 1 Tab PO DAILY 10/16/20 Reported Trelegy Ellipta 100-62.5-25 (Fluticasone/Umeclidin/Vilanter) 1 Each Blst.w.dev 1 Each IH DAILY 03/17/20 Reported Prilosec Otc (Omeprazole Magnesium) 20 Mg Tablet.dr 40 Mg PO DAILY 03/17/20 Reported Duoneb 0.5-3(2.5) Mg/3 Ml (Albuterol/Ipratropium) 3 Ml Ampul.neb 3 Ml NEB Q4HRS 14 10/22/19 Rx K-Tab ER (Potassium Chloride) 20 Meq Tablet.er 20 Meq PO DAILY 07/30/19 Reported Montelukast Sodium Tablet (Montelukast Sodium) 10 Mg Tablet 10 Mg PO HS 07/29/19 Reported Levocetirizine Dihydrochloride 5 Mg Tablet 5 Mg PO DAILY 07/29/19 Reported Amitriptyline Hcl 25 Mg Tablet 25 Mg PO QHS 07/29/19 Reported Vitamin D3 (Cholecalciferol (Vitamin D3)) 1,000 Unit Tablet 1 Tab PO DAILY 01/02/18 Reported Torsemide 20 Mg Tablet 2 Tab PO DAILY 4/2/18 Reported Daliresp (Roflumilast) 500 Mcg Tablet 1 Tab PO DAILY 09/23/17 Reported Atorvastatin Calcium 20 Mg Tablet 20 Mg PO HS 09/23/17 Reported Requip (Ropinirole Hcl) 1 Mg Tablet 3 Tab PO QHS 09/23/17 Reported Proair Hfa Inhaler (Albuterol Sulfate) 8.5 Gm Hfa.aer.ad 1 Puff INH PRN Q6HRS PRN 09/23/17 Reported Levothyroxine Sodium 50 Mcg Tablet 1 Tab PO DAILY 09/23/17 Reported Impression . IMPRESSION: 1. Acute hypoxemic respiratory failure, multifactorial in etiology including acute diastolic congestive heart failure, acute exacerbation of chronic obstructive pulmonary disease, acute bronchitis, rule out thromboembolic disease. 2. Abnormal chest x-ray. 3. Acute diastolic congestive heart failure. 4. Acute exacerbation of chronic obstructive pulmonary disease. 5. Acute bronchitis. 6. History of nonischemic cardiomyopathy, status post biventricular implantable cardioverter defibrillator. A subsequent echocardiogram showed normal ejection fraction. 7. Paroxysmal atrial fibrillation, status post ablation followed by external cardioversion for recurrent atrial fibrillation, left atrial appendage closure, now in sinus tachycardia. She has been off anticoagulation since June of last year. 8. Mitral regurgitation, moderate to severe. 9. Hypertension. 10. Diabetes mellitus. 11. Non-ST elevation myocardial infarction. Plan . Updated 11/23 Continue current diuresis Continue oxygen supplementation I think this time most of patient's difficulties related to acute CHF PLAN AND RECOMMENDATIONS: 1. Titrate FiO2 to keep O2 saturation 90%. 2. Continue bronchodilator. 3. Solu-Medrol 40 mg IV every 8 hours. 4. continue doxycycline 100 mg b.i.d. 5. lower extremity venous Doppler, negative 6. CT angiogram of the chest, negative for PE 7. continue Lasix. 8. Lovenox for DVT prophylaxis. 9. Protonix for stress ulcer prophylaxis. 10. Monitor respiratory status very closely. LETICIA FORTUNE MD Nov 23, 2021 10:09
[2021-11-23 10:47] VITALS: BP 84/49
[2021-11-23] MEDS: ACETAMINOPHEN 325 MG TABLET. PO PRN (10:55)
--- NOTE | 2021-11-23 11:02 | PDOC ---
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 RESOURCE ANALYST 11/23/21 1102: CARDIO Progress Notes Date and Time Date of Service 11/23/21 Time of Evaluation 1050 Subjective Subjective: No Chest Pain, No Palpitations, No Dizziness, Other (still SOA) Vitals Vitals Vital Signs Date Time Temp Pulse Resp B/P (MAP) Pulse Ox O2 Delivery O2 Flow Rate FiO2 11/23/21 10:47 97.5 111 18 84/49 (61) 99 Nasal Cannula 3.0 97.5 Weight Weight [ ] Input and Output Intake and Output Intake and Output 11/23/21 07:00 Intake Total 560 ml Output Total 200 ml Balance 360 ml Intake Oral 560 ml Output Urine Total 200 ml # Voids 3 # Bowel Movements 1 Laboratory Labs Laboratory Tests Test 11/23/21 05:10 White Blood Count 9.9 x10^3/uL (4.0-11.0) Red Blood Count 2.50 x10^6/uL (3.50-5.40) Hemoglobin 7.2 g/dL (12.0-15.5) Hematocrit 23.4 % (36.0-47.0) Mean Corpuscular Volume 94 fL (79-100) Mean Corpuscular Hemoglobin 29 pg (25-35) Mean Corpuscular Hemoglobin Concent 31 g/dL (31-37) Red Cell Distribution Width 17.8 % (11.5-14.5) Platelet Count 454 x10^3/uL (140-400) Neutrophils (%) (Auto) 95 % (31-73) Lymphocytes (%) (Auto) 2 % (24-48) Monocytes (%) (Auto) 3 % (0-9) Eosinophils (%) (Auto) 0 % (0-3) Basophils (%) (Auto) 0 % (0-3) Neutrophils # (Auto) 9.4 x10^3/uL (1.8-7.7) Lymphocytes # (Auto) 0.2 x10^3/uL (1.0-4.8) Monocytes # (Auto) 0.3 x10^3/uL (0.0-1.1) Eosinophils # (Auto) 0.0 x10^3/uL (0.0-0.7) Basophils # (Auto) 0.0 x10^3/uL (0.0-0.2) Sodium Level 131 mmol/L (136-145) Potassium Level 4.9 mmol/L (3.5-5.1) Chloride Level 91 mmol/L (98-107) Carbon Dioxide Level 34 mmol/L (21-32) Anion Gap 6 (6-14) Blood Urea Nitrogen 25 mg/dL (7-20) Creatinine 1.4 mg/dL (0.6-1.0) Estimated GFR (Cockcroft-Gault) 37.5 Glucose Level 214 mg/dL (70-99) Calcium Level 8.5 mg/dL (8.5-10.1) Magnesium Level 2.1 mg/dL (1.8-2.4) Physical Exam HEENT: Neck Supple W Full Motion Chest: Symmetric LUNGS: Other (diminished bases) Heart: irregularly irregular (AFIB, rate near 110-115) Abdomen: Soft N/T Extremities: No Edema Neurology: alert, oriented, follow commands Assessment Assessment 1. Acute hypoxic respiratory failure; multifactorial with AE COPD and acute on chronic diastolic heart failure. 2. Acute on chronic diastolic heart failure: Recent echo showed normalized left ventricle systolic function with EF 50 to 55%. Recent right heart catheterization did not show any significant pulmonary hypertension. S/p IV diuresis. Lasix held with ^ Cr. 3. 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 Recent device interrogation showed normal function. 4. PAFIB s/p ablation therapy followed by external cardioversion for recurrent atrial fibrillation and left atrial appendage closure. She was taken off all anticoagulation in the past by EP service. 5. Mitral regurgitation: moderate to severe MR on 2D echo and was referred to valve clinic for possible mitral valve clip procedure. Conservative management recommended for now. 6. Hypertension: Controlled 7. Hyperlipidemia: Continue statin therapy 8. DM2: Continue treatment per IM 9. Non-STEMI, most probably type II/demand ischemia. She is presently chest pain-free. Left heart catheterization in the past did not show any significant CAD 10. ETSEFANI Justicifation of Admission Dx: Justifications for Admission: Justification of Admission Dx: Yes SAMM CRUZ MD 11/24/21 0627: CARDIO Progress Notes Assessment Assessment Patient seen and examined 11/23/2021. Agree with TECHNICAL MANAGER's assessment and plan. Acute on chronic diastolic heart failure well compensated Non-STEMI most of her type II/demand ischemia PAF, presently sinus tachycardia Continue current management for acute COPD exacerbation per pulmonary team 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 APRN Nov 23, 2021 11:02 SAMM CRUZ MD Nov 24, 2021 06:27
--- NOTE | 2021-11-23 12:46 | PDOC ---
[employer] PROGRESS NOTE Date of Service DOS: DATE: 11/23/21 TIME: 12:44 Chief Complaint Chief Complaint Assessment/Plan Acute hypoxic respiratory failure Elevated troponins due to demand ischemia Elevated BNP likely due to volume overload versus chronic hypoxia Isolated elevated alkaline phosphatase Home oxygen therapy at 3 L currently at baseline History of CAD asymptomatic History of CHF compensated Diabetes mellitus type 2 insulin requiring Essential hypertension hyperlipidemia Acquired hypothyroidism History of AICD History of diastolic CHF, grade 1 abnormal relaxation pattern Hx left shoulder surgery, Hx tobacco abuse (quit 3 years ago) We will hold on IV Lasix today due to hypotension Patient has not been taking Entresto for couple months I have discontinued this. Pulmonology consult for COPD work-up and PE rule out Cardiology consult for elevated troponins IV steroids IV Lasix diuresis as needed Combivent inhaler Lovenox for DVT prophylaxis Protonix GI prophylaxis ADA diet CODE STATUS full Discussed with RN and SW Disposition inpatient management as above DPOA: History of Present Illness History of Present Illness 66 year old female with extensive past medical history including CAD, CHF and COPD who presents with 1 week history of shortness of breath. Patient states she saw her production metal sprayer, Dr. Driscoll, 2 days ago regarding her symptoms. She states she was instructed to double her Lasix for a few days. Patient reported associated bilateral lower extremity swelling, that has since resolved. Patient reports she is unable to lay down to sleep and has had to periodically increase her daily oxygen by 0.5-1 L during the day. Patient denies chest pain, palpitations, cough, fever, chills. 11/22/2021 No acute events overnight. Patient seen examined bedside. Patient saturating 93% on 3 L nasal cannula. Not more short of breath than usual. Edema has improved. I have consulted pulmonology for further work-up. As of now we will try to rule out PE. We will continue with IV steroids and diuresis as needed. Appreciate cardiology and pulmonary recommendations. Patient's chart, labs, images were reviewed and discussed with RN 11/23/2021 No acute events overnight. Patient seen and examined bedside. Patient saturating 93% on 3 L nasal cannula. Complaining of a dry cough with no production but sounds wet. Edema has improved. Creatinine bumped to 1.4 so I will hold her IV Lasix today. Her blood pressure is also in the low normal range. I have also held her Entresto which she states that she has not been given for past couple months. We will continue with IV steroids at this time. Hemoglobin 7.2 today and patient complaining of small purpuric pain less like lesions in her extremities that started before her hospitalization. Patient is not on any blood thinners and platelets are normal. We will continue to observe for now. Patient's chart, labs, images were reviewed and discussed with RN Vitals/I&O Vitals/I&O: Vital Signs Date Time Temp Pulse Resp B/P (MAP) Pulse Ox O2 Delivery O2 Flow Rate FiO2 11/23/21 11:17 97 Nasal Cannula 3.0 11/23/21 10:47 97.5 111 18 84/49 (61) 97.5 I & O 11/22/21 11/22/21 11/23/21 15:00 23:00 07:00 Intake Total 260 ml 300 ml 0 ml Output Total 200 ml Balance 260 ml 100 ml 0 ml Physical Exam General: Alert, Oriented X3, Cooperative, mild distress Heart: Regular rate Lungs: Wheezing, Crackles Abdomen: Soft Extremities: No clubbing, No edema Skin: No rashes Labs Labs: Laboratory Tests Test 11/23/21 05:10 White Blood Count 9.9 x10^3/uL (4.0-11.0) Red Blood Count 2.50 x10^6/uL (3.50-5.40) Hemoglobin 7.2 g/dL (12.0-15.5) Hematocrit 23.4 % (36.0-47.0) Mean Corpuscular Volume 94 fL (79-100) Mean Corpuscular Hemoglobin 29 pg (25-35) Mean Corpuscular Hemoglobin Concent 31 g/dL (31-37) Red Cell Distribution Width 17.8 % (11.5-14.5) Platelet Count 454 x10^3/uL (140-400) Neutrophils (%) (Auto) 95 % (31-73) Lymphocytes (%) (Auto) 2 % (24-48) Monocytes (%) (Auto) 3 % (0-9) Eosinophils (%) (Auto) 0 % (0-3) Basophils (%) (Auto) 0 % (0-3) Neutrophils # (Auto) 9.4 x10^3/uL (1.8-7.7) Lymphocytes # (Auto) 0.2 x10^3/uL (1.0-4.8) Monocytes # (Auto) 0.3 x10^3/uL (0.0-1.1) Eosinophils # (Auto) 0.0 x10^3/uL (0.0-0.7) Basophils # (Auto) 0.0 x10^3/uL (0.0-0.2) Sodium Level 131 mmol/L (136-145) Potassium Level 4.9 mmol/L (3.5-5.1) Chloride Level 91 mmol/L (98-107) Carbon Dioxide Level 34 mmol/L (21-32) Anion Gap 6 (6-14) Blood Urea Nitrogen 25 mg/dL (7-20) Creatinine 1.4 mg/dL (0.6-1.0) Estimated GFR (Cockcroft-Gault) 37.5 Glucose Level 214 mg/dL (70-99) Calcium Level 8.5 mg/dL (8.5-10.1) Magnesium Level 2.1 mg/dL (1.8-2.4) Assessment and Plan Assessmemt and Plan Problems Medical Problems: (1) Acute exacerbation of CHF (congestive heart failure) Status: Acute (2) Elevated troponin Status: Acute Comment Review of Relevant I have reviewed the following items jon (where applicable) has been applied. Medications: Current Medications Medications (Trade) Dose Ordered Sig/Keshav Route PRN Reason Start Time Stop Time Status Last Admin Dose Admin Enoxaparin Sodium (Lovenox 40mg Syringe) 40 mg Q24H SQ 11/23/21 09:00 11/23/21 08:01 Lactobacillus Rhamnosus (Culturelle) 1 cap BID PO 11/22/21 21:00 11/23/21 08:00 Justifications for Admission Other Justification CHF exacerbation and elevated troponins BRAYAN RAYMOND MD Nov 23, 2021 12:46
[2021-11-23 14:25] VITALS: BP 103/55
--- NOTE | 2021-11-23 14:40 | NUR ---
SS following up with discharge planning. SS reviewed pt chart and discussed with pt RN. Pt is from home with spouse and is currently requiring oxygen at three liters nasal canula. COVID19 negative. Pt has home oxygen. Pulmonology and Cardiology following. Pt on IV Solu-Medrol and PO Doxycycline. PT/OT recommended longterm unit. SS met with pt to discuss discharge planning and longterm unit. Pt undecided at this time and reported that she would discuss with her spouse. Pt reported that she has outpatient services here at the hospital but has been unable to come to the hospital for the appointments. Pt reported that home healthcare does not help her. SS will continue to follow for discharge planning.
[2021-11-23] MEDS: MONTELUKAST SODIUM 10 MG TABLET. PO SCH (19:09)
[2021-11-23] MEDS: ATORVASTATIN CALCIUM 20 MG TABLET PO SCH (19:09)
[2021-11-23] MEDS: rOPINIRole 1 MG TABLET. PO SCH (19:09)
[2021-11-23 19:10] VITALS: BP 106/58
[2021-11-23] MEDS: AMITRIPTYLINE HCL 25 MG TABLET. PO SCH (19:14)
[2021-11-23] MEDS: PANTOPRAZOLE 40 MG TABLET.DR. PO SCH (21:08)
[2021-11-23 22:55] VITALS: BP 100/56
[2021-11-24 03:35] VITALS: BP 108/59
[2021-11-24 04:19] LABS: BILIRUBIN,URINE NEGATIVE (NEG); CLARITY,URINE CLEAR; COLOR,URINE YELLOW; NITRITE,URINE NEGATIVE (NEG); PH,URINE 5.5 (<5.0-8.0); PROTEIN,URINE NEGATIVE (NEG-TRACE); UROBILINOGEN,URINE 0.2 mg/dL (0.2 mg/dL)
[2021-11-24 04:34] LABS: RBC,URINE 0 /HPF (0-2)
[2021-11-24 04:35] LABS: BACTERIA,URINE FEW /HPF (0-FEW); HYALINE CASTS, URINE MODERATE /HPF
[2021-11-24] MEDS: methylPREDNISolone SOD SUCC PF 40 MG/ML VIAL. IV SCH ×2 (05:30→12:59)
[2021-11-24 06:23] LABS: BASO % 0 % (0-3); EOS % 0 % (0-3); HEMATOCRIT 23.4 % (36.0-47.0); HEMOGLOBIN 7.3 g/dL (12.0-15.5); LYMPH # 0.2 x10^3/uL (1.0-4.8); LYMPH % 2 % (24-48); MEAN CORPUSCULAR HEMOGLOBIN 30 pg (25-35); MEAN CORPUSCULAR HGB CONC 31 g/dL (31-37); MEAN CORPUSCULAR VOLUME 95 fL (79-100); MONO # 0.3 x10^3/uL (0.0-1.1); MONO % 3 % (0-9); NEUT # 9.3 x10^3/uL (1.8-7.7); NEUT % 94 % (31-73); PLATELET COUNT 472 x10^3/uL (140-400); RED BLOOD COUNT 2.47 x10^6/uL (3.50-5.40); RED CELL DISTRIBUTION WIDTH 17.7 % (11.5-14.5); WHITE BLOOD COUNT 9.9 x10^3/uL (4.0-11.0)
[2021-11-24 06:48] LABS: CREATININE 1.4 mg/dL (0.6-1.0); GFR 37.5; POTASSIUM 5.9 mmol/L (3.5-5.1)
[2021-11-24] MEDS: IPRATRPIUM/ALBUTEROL 0.5/2.5MG 3 ML NEBU. NEB SCH ×4 (07:27→19:57)
[2021-11-24] MEDS: THIAMINE 100 MG TABLET. PO SCH (07:44)
[2021-11-24] MEDS: CHOLECALCIFEROL (VITAMIN D3) 1,000 UNIT TABLET PO SCH (07:44)
[2021-11-24] MEDS: ALLOPURINOL 300 MG TABLET. PO SCH (07:44)
[2021-11-24] MEDS: LACTOBACILLUS RHAMNOSUS GG 1 CAPSULE. PO SCH ×2 (07:44→20:58)
[2021-11-24] MEDS: CLOPIDOGREL BISULFATE 75 MG TABLET PO SCH (07:44)
[2021-11-24] MEDS: DOXYCYCLINE HYCLATE 100 MG TABLET PO SCH ×2 (07:44→20:58)
[2021-11-24] MEDS: ROFLUMILAST 500 MCG TABLET. PO SCH (07:44)
[2021-11-24] MEDS: LEVOTHYROXINE 50 MCG TABLET PO SCH (07:44)
[2021-11-24] MEDS: PANTOPRAZOLE 40 MG TABLET.DR. PO SCH (07:44)
[2021-11-24] MEDS: GABAPENTIN 100 MG CAPSULE. PO SCH ×3 (07:44→20:59)
[2021-11-24] MEDS: FERROUS SULFATE 325 MG TABLET. PO SCH (07:44)
[2021-11-24] MEDS: ENOXAPARIN 40 MG/0.4 ML SYRINGE. SQ SCH (07:45)
[2021-11-24 07:51] VITALS: BP 109/55
[2021-11-24] MEDS ORDERED: IV NORMAL SALINE 1000ML BAG 250 ML IV ONE (09:00)
[2021-11-24 10:30] LABS: CALCIUM 8.7 mg/dL (8.5-10.1); CREATININE 1.4 mg/dL (0.6-1.0); GFR 37.5
--- NOTE | 2021-11-24 10:42 | PDOC ---
PULMONARY PROGRESS NOTES DATE: 11/24/21 TIME: 10:42 Subjective Patient currently not more short of air, nasal cannula oxygen Vitals Vital Signs Date Time Temp Pulse Resp B/P (MAP) Pulse Ox O2 Delivery O2 Flow Rate FiO2 11/24/21 08:00 Nasal Cannula 3.0 11/24/21 07:51 97.9 112 20 109/55 (73) 98 97.9 General: Alert, No acute distress HEENT: Other Lungs: Wheezing, Crackles Cardiovascular: S1, S2 Abdomen: Soft, Non-tender Extremities: No Edema Labs Laboratory Tests Test 11/23/21 05:10 11/24/21 03:40 11/24/21 06:00 11/24/21 09:50 White Blood Count 9.9 x10^3/uL (4.0-11.0) 9.9 x10^3/uL (4.0-11.0) Red Blood Count 2.50 x10^6/uL (3.50-5.40) 2.47 x10^6/uL (3.50-5.40) Hemoglobin 7.2 g/dL (12.0-15.5) 7.3 g/dL (12.0-15.5) Hematocrit 23.4 % (36.0-47.0) 23.4 % (36.0-47.0) Mean Corpuscular Volume 94 fL (79-100) 95 fL (79-100) Mean Corpuscular Hemoglobin 29 pg (25-35) 30 pg (25-35) Mean Corpuscular Hemoglobin Concent 31 g/dL (31-37) 31 g/dL (31-37) Red Cell Distribution Width 17.8 % (11.5-14.5) 17.7 % (11.5-14.5) Platelet Count 454 x10^3/uL (140-400) 472 x10^3/uL (140-400) Neutrophils (%) (Auto) 95 % (31-73) 94 % (31-73) Lymphocytes (%) (Auto) 2 % (24-48) 2 % (24-48) Monocytes (%) (Auto) 3 % (0-9) 3 % (0-9) Eosinophils (%) (Auto) 0 % (0-3) 0 % (0-3) Basophils (%) (Auto) 0 % (0-3) 0 % (0-3) Neutrophils # (Auto) 9.4 x10^3/uL (1.8-7.7) 9.3 x10^3/uL (1.8-7.7) Lymphocytes # (Auto) 0.2 x10^3/uL (1.0-4.8) 0.2 x10^3/uL (1.0-4.8) Monocytes # (Auto) 0.3 x10^3/uL (0.0-1.1) 0.3 x10^3/uL (0.0-1.1) Eosinophils # (Auto) 0.0 x10^3/uL (0.0-0.7) 0.0 x10^3/uL (0.0-0.7) Basophils # (Auto) 0.0 x10^3/uL (0.0-0.2) 0.0 x10^3/uL (0.0-0.2) Sodium Level 131 mmol/L (136-145) 130 mmol/L (136-145) 131 mmol/L (136-145) Potassium Level 4.9 mmol/L (3.5-5.1) 5.9 mmol/L (3.5-5.1) 6.0 mmol/L (3.5-5.1) Chloride Level 91 mmol/L (98-107) 89 mmol/L (98-107) 90 mmol/L (98-107) Carbon Dioxide Level 34 mmol/L (21-32) 38 mmol/L (21-32) 36 mmol/L (21-32) Anion Gap 6 (6-14) 3 (6-14) 5 (6-14) Blood Urea Nitrogen 25 mg/dL (7-20) 38 mg/dL (7-20) 41 mg/dL (7-20) Creatinine 1.4 mg/dL (0.6-1.0) 1.4 mg/dL (0.6-1.0) 1.4 mg/dL (0.6-1.0) Estimated GFR (Cockcroft-Gault) 37.5 37.5 37.5 Glucose Level 214 mg/dL (70-99) 166 mg/dL (70-99) 190 mg/dL (70-99) Calcium Level 8.5 mg/dL (8.5-10.1) 9.0 mg/dL (8.5-10.1) 8.7 mg/dL (8.5-10.1) Magnesium Level 2.1 mg/dL (1.8-2.4) 2.0 mg/dL (1.8-2.4) Urine Collection Type Unknown Urine Color Yellow Urine Clarity Clear Urine pH 5.5 (<5.0-8.0) Urine Specific [place] 1.025 (1.000-1.030) Urine Protein Negative mg/dL (NEG-TRACE) Urine Glucose (UA) Negative mg/dL (NEG) Urine Ketones (Stick) Trace mg/dL (NEG) Urine Blood Negative (NEG) Urine Nitrite Negative (NEG) Urine Bilirubin Negative (NEG) Urine Urobilinogen Dipstick 0.2 mg/dL (0.2 mg/dL) Urine Leukocyte Esterase Negative (NEG) Urine RBC 0 /HPF (0-2) Urine WBC 1-4 /HPF (0-4) Urine Squamous Epithelial Cells Mod /LPF Urine Bacteria Few /HPF (0-FEW) Urine Hyaline Casts Moderate /HPF Urine Mucus Mod /LPF Laboratory Tests Test 11/24/21 03:40 11/24/21 06:00 11/24/21 09:50 Urine Collection Type Unknown Urine Color Yellow Urine Clarity Clear Urine pH 5.5 (<5.0-8.0) Urine Specific [place] 1.025 (1.000-1.030) Urine Protein Negative mg/dL (NEG-TRACE) Urine Glucose (UA) Negative mg/dL (NEG) Urine Ketones (Stick) Trace mg/dL (NEG) Urine Blood Negative (NEG) Urine Nitrite Negative (NEG) Urine Bilirubin Negative (NEG) Urine Urobilinogen Dipstick 0.2 mg/dL (0.2 mg/dL) Urine Leukocyte Esterase Negative (NEG) Urine RBC 0 /HPF (0-2) Urine WBC 1-4 /HPF (0-4) Urine Squamous Epithelial Cells Mod /LPF Urine Bacteria Few /HPF (0-FEW) Urine Hyaline Casts Moderate /HPF Urine Mucus Mod /LPF White Blood Count 9.9 x10^3/uL (4.0-11.0) Red Blood Count 2.47 x10^6/uL (3.50-5.40) Hemoglobin 7.3 g/dL (12.0-15.5) Hematocrit 23.4 % (36.0-47.0) Mean Corpuscular Volume 95 fL (79-100) Mean Corpuscular Hemoglobin 30 pg (25-35) Mean Corpuscular Hemoglobin Concent 31 g/dL (31-37) Red Cell Distribution Width 17.7 % (11.5-14.5) Platelet Count 472 x10^3/uL (140-400) Neutrophils (%) (Auto) 94 % (31-73) Lymphocytes (%) (Auto) 2 % (24-48) Monocytes (%) (Auto) 3 % (0-9) Eosinophils (%) (Auto) 0 % (0-3) Basophils (%) (Auto) 0 % (0-3) Neutrophils # (Auto) 9.3 x10^3/uL (1.8-7.7) Lymphocytes # (Auto) 0.2 x10^3/uL (1.0-4.8) Monocytes # (Auto) 0.3 x10^3/uL (0.0-1.1) Eosinophils # (Auto) 0.0 x10^3/uL (0.0-0.7) Basophils # (Auto) 0.0 x10^3/uL (0.0-0.2) Sodium Level 130 mmol/L (136-145) 131 mmol/L (136-145) Potassium Level 5.9 mmol/L (3.5-5.1) 6.0 mmol/L (3.5-5.1) Chloride Level 89 mmol/L (98-107) 90 mmol/L (98-107) Carbon Dioxide Level 38 mmol/L (21-32) 36 mmol/L (21-32) Anion Gap 3 (6-14) 5 (6-14) Blood Urea Nitrogen 38 mg/dL (7-20) 41 mg/dL (7-20) Creatinine 1.4 mg/dL (0.6-1.0) 1.4 mg/dL (0.6-1.0) Estimated GFR (Cockcroft-Gault) 37.5 37.5 Glucose Level 166 mg/dL (70-99) 190 mg/dL (70-99) Calcium Level 9.0 mg/dL (8.5-10.1) 8.7 mg/dL (8.5-10.1) Magnesium Level 2.0 mg/dL (1.8-2.4) Medications Active Scripts Medications Dose Route/Sig Max Daily Dose Days Date Category Ferrous Sulfate 325 Mg Tablet 1 Tab PO DAILY 07/26/21 Reported Clopidogrel (Clopidogrel Bisulfate) 75 Mg Tablet 1 Tab PO DAILY 07/20/21 Reported Spironolactone 25 Mg Tablet 25 Mg PO DAILY 05/19/21 Reported Metoprolol Succinate ( Xl ) (Metoprolol Succinate) 25 Mg Tab.er.24h 25 Mg PO DAILY 05/19/21 Reported Voltaren Arthritis Pain (Diclofenac Sodium) 20 Gm Gel..gram. 20 Gm TP PRN PRN 05/19/21 Reported Entresto 24 mg-26 mg Tablet (Sacubitril/Valsartan) 1 Each Tablet 1 Each PO BID 30 11/19/20 Rx Gabapentin (Gabapentin) 100 Mg Capsule 100 Mg PO TID 10/18/20 Reported Alendronate Sodium 70 Mg Tablet 1 Tab PO WEEKLY 10/16/20 Reported Allopurinol 300 Mg Tablet 1 Tab PO DAILY 10/16/20 Reported Trelegy Ellipta 100-62.5-25 (Fluticasone/Umeclidin/Vilanter) 1 Each Blst.w.dev 1 Each IH DAILY 03/17/20 Reported Prilosec Otc (Omeprazole Magnesium) 20 Mg Tablet.dr 40 Mg PO DAILY 03/17/20 Reported Duoneb 0.5-3(2.5) Mg/3 Ml (Albuterol/Ipratropium) 3 Ml Ampul.neb 3 Ml NEB Q4HRS 14 10/22/19 Rx K-Tab ER (Potassium Chloride) 20 Meq Tablet.er 20 Meq PO DAILY 07/30/19 Reported Montelukast Sodium Tablet (Montelukast Sodium) 10 Mg Tablet 10 Mg PO HS 07/29/19 Reported Levocetirizine Dihydrochloride 5 Mg Tablet 5 Mg PO DAILY 07/29/19 Reported Amitriptyline Hcl 25 Mg Tablet 25 Mg PO QHS 07/29/19 Reported Vitamin D3 (Cholecalciferol (Vitamin D3)) 1,000 Unit Tablet 1 Tab PO DAILY 01/02/18 Reported Torsemide 20 Mg Tablet 2 Tab PO DAILY 4/2/18 Reported Daliresp (Roflumilast) 500 Mcg Tablet 1 Tab PO DAILY 09/23/17 Reported Atorvastatin Calcium 20 Mg Tablet 20 Mg PO HS 09/23/17 Reported Requip (Ropinirole Hcl) 1 Mg Tablet 3 Tab PO QHS 09/23/17 Reported Proair Hfa Inhaler (Albuterol Sulfate) 8.5 Gm Hfa.aer.ad 1 Puff INH PRN Q6HRS PRN 09/23/17 Reported Levothyroxine Sodium 50 Mcg Tablet 1 Tab PO DAILY 09/23/17 Reported Impression . IMPRESSION: 1. Acute hypoxemic respiratory failure, multifactorial in etiology including acute diastolic congestive heart failure, acute exacerbation of chronic obstructive pulmonary disease, acute bronchitis, rule out thromboembolic disease. 2. Abnormal chest x-ray. 3. Acute diastolic congestive heart failure. 4. Acute exacerbation of chronic obstructive pulmonary disease. 5. Acute bronchitis. 6. History of nonischemic cardiomyopathy, status post biventricular implantable cardioverter defibrillator. A subsequent echocardiogram showed normal ejection fraction. 7. Paroxysmal atrial fibrillation, status post ablation followed by external cardioversion for recurrent atrial fibrillation, left atrial appendage closure, now in sinus tachycardia. She has been off anticoagulation since June of last year. 8. Mitral regurgitation, moderate to severe. 9. Hypertension. 10. Diabetes mellitus. 11. Non-ST elevation myocardial infarction. Plan . Updated 11/24 diuresis on hold Creatinine BUN increased Patient may be vascularly depleted Follow cardiology input Decrease steroids to daily LETICIA FORTUNE MD Nov 24, 2021 10:42
[2021-11-24] MEDS ORDERED: SODIUM POLYSTYRENE SULFON/SORB 15 GM/60 ML ORAL.SUSP. PO ONE (11:00)
[2021-11-24 11:08] VITALS: BP 119/57
--- NOTE | 2021-11-24 11:13 | NUR ---
SS following up with discharge planning. SS reviewed pt chart and discussed with pt RN. Pt is currently requiring oxygen at three liters nasal canula. COVID19 negative. Pt has home oxygen. Pt on IV Solu-Medrol. PT/OT recommended senior living unit. SS met with pt and discussed discharge planning. Pt agreeable to senior living unit and requested referrals to #1 [facility], ; fax [phone], and #2 [facility], ; fax [phone]. Referrals sent as requested. SS will continue to follow for discharge planning. Addendum: 11/24/21 at 1339 by DEV KOENIG Pt accepted at [facility].
--- NOTE | 2021-11-24 12:24 | PDOC ---
[employer] PROGRESS NOTE Date of Service DOS: DATE: 11/24/21 TIME: 12:21 Chief Complaint Chief Complaint Assessment/Plan Acute hypoxic respiratory failure Elevated troponins due to demand ischemia Elevated BNP likely due to volume overload versus chronic hypoxia Isolated elevated alkaline phosphatase Home oxygen therapy at 3 L currently at baseline History of CAD asymptomatic History of CHF compensated Diabetes mellitus type 2 insulin requiring Essential hypertension hyperlipidemia Acquired hypothyroidism History of AICD History of diastolic CHF, grade 1 abnormal relaxation pattern Hx left shoulder surgery, Hx tobacco abuse (quit 3 years ago) We will hold on IV Lasix today due to hypotension Patient has not been taking Entresto for couple months I have discontinued this. Pulmonology consult for COPD work-up and PE rule out Cardiology consult for elevated troponins IV steroids IV Lasix diuresis as needed Combivent inhaler Lovenox for DVT prophylaxis Protonix GI prophylaxis ADA diet CODE STATUS full Discussed with RN and SW Disposition inpatient management as above DPOA: History of Present Illness History of Present Illness 66 year old female with extensive past medical history including CAD, CHF and COPD who presents with 1 week history of shortness of breath. Patient states she saw her fuel oil truck driver, Dr. Driscoll, 2 days ago regarding her symptoms. She states she was instructed to double her Lasix for a few days. Patient reported associated bilateral lower extremity swelling, that has since resolved. Patient reports she is unable to lay down to sleep and has had to periodically increase her daily oxygen by 0.5-1 L during the day. Patient denies chest pain, palpitations, cough, fever, chills. 11/22/2021 No acute events overnight. Patient seen examined bedside. Patient saturating 93% on 3 L nasal cannula. Not more short of breath than usual. Edema has improved. I have consulted pulmonology for further work-up. As of now we will try to rule out PE. We will continue with IV steroids and diuresis as needed. Appreciate cardiology and pulmonary recommendations. Patient's chart, labs, images were reviewed and discussed with RN 11/23/2021 No acute events overnight. Patient seen and examined bedside. Patient saturating 93% on 3 L nasal cannula. Complaining of a dry cough with no production but sounds wet. Edema has improved. Creatinine bumped to 1.4 so I will hold her IV Lasix today. Her blood pressure is also in the low normal range. I have also held her Entresto which she states that she has not been given for past couple months. We will continue with IV steroids at this time. Hemoglobin 7.2 today and patient complaining of small purpuric pain less like lesions in her extremities that started before her hospitalization. Patient is not on any blood thinners and platelets are normal. We will continue to observe for now. Patient's chart, labs, images were reviewed and discussed with RN 11/24/2021 No acute events overnight. Patient seen examined bedside. Still saturating 93% on 3 l nasal cannula. Complains of productive cough. Yellowish sputum. Will obtain chest x-ray today. Potassium was 6.0 today and creatinine 1.4. We will consult nephrology for ESTEFANI. Kayexalate one-time dose was given. 250 NS bolus given I suspect there might be some volume depletion. Protonix started last night for GI upset and reflux secondary to likely steroid use. Vitals/I&O Vitals/I&O: Vital Signs Date Time Temp Pulse Resp B/P (MAP) Pulse Ox O2 Delivery O2 Flow Rate FiO2 11/24/21 11:26 Nasal Cannula 3.0 11/24/21 11:08 97.8 110 18 119/57 (77) 98 97.8 I & O 11/23/21 11/23/21 11/24/21 15:00 23:00 07:00 Intake Total 600 ml 400 ml 600 ml Output Total 200 ml Balance 600 ml 400 ml 400 ml Physical Exam General: Alert, Oriented X3, Cooperative, mild distress Heart: Regular rate Lungs: Wheezing, Crackles Abdomen: Soft Extremities: No clubbing, No edema Skin: No rashes Labs Labs: Laboratory Tests Test 11/24/21 03:40 11/24/21 06:00 11/24/21 09:50 Urine Collection Type Unknown Urine Color Yellow Urine Clarity Clear Urine pH 5.5 (<5.0-8.0) Urine Specific [place] 1.025 (1.000-1.030) Urine Protein Negative mg/dL (NEG-TRACE) Urine Glucose (UA) Negative mg/dL (NEG) Urine Ketones (Stick) Trace mg/dL (NEG) Urine Blood Negative (NEG) Urine Nitrite Negative (NEG) Urine Bilirubin Negative (NEG) Urine Urobilinogen Dipstick 0.2 mg/dL (0.2 mg/dL) Urine Leukocyte Esterase Negative (NEG) Urine RBC 0 /HPF (0-2) Urine WBC 1-4 /HPF (0-4) Urine Squamous Epithelial Cells Mod /LPF Urine Bacteria Few /HPF (0-FEW) Urine Hyaline Casts Moderate /HPF Urine Mucus Mod /LPF White Blood Count 9.9 x10^3/uL (4.0-11.0) Red Blood Count 2.47 x10^6/uL (3.50-5.40) Hemoglobin 7.3 g/dL (12.0-15.5) Hematocrit 23.4 % (36.0-47.0) Mean Corpuscular Volume 95 fL (79-100) Mean Corpuscular Hemoglobin 30 pg (25-35) Mean Corpuscular Hemoglobin Concent 31 g/dL (31-37) Red Cell Distribution Width 17.7 % (11.5-14.5) Platelet Count 472 x10^3/uL (140-400) Neutrophils (%) (Auto) 94 % (31-73) Lymphocytes (%) (Auto) 2 % (24-48) Monocytes (%) (Auto) 3 % (0-9) Eosinophils (%) (Auto) 0 % (0-3) Basophils (%) (Auto) 0 % (0-3) Neutrophils # (Auto) 9.3 x10^3/uL (1.8-7.7) Lymphocytes # (Auto) 0.2 x10^3/uL (1.0-4.8) Monocytes # (Auto) 0.3 x10^3/uL (0.0-1.1) Eosinophils # (Auto) 0.0 x10^3/uL (0.0-0.7) Basophils # (Auto) 0.0 x10^3/uL (0.0-0.2) Sodium Level 130 mmol/L (136-145) 131 mmol/L (136-145) Potassium Level 5.9 mmol/L (3.5-5.1) 6.0 mmol/L (3.5-5.1) Chloride Level 89 mmol/L (98-107) 90 mmol/L (98-107) Carbon Dioxide Level 38 mmol/L (21-32) 36 mmol/L (21-32) Anion Gap 3 (6-14) 5 (6-14) Blood Urea Nitrogen 38 mg/dL (7-20) 41 mg/dL (7-20) Creatinine 1.4 mg/dL (0.6-1.0) 1.4 mg/dL (0.6-1.0) Estimated GFR (Cockcroft-Gault) 37.5 37.5 Glucose Level 166 mg/dL (70-99) 190 mg/dL (70-99) Calcium Level 9.0 mg/dL (8.5-10.1) 8.7 mg/dL (8.5-10.1) Magnesium Level 2.0 mg/dL (1.8-2.4) Assessment and Plan Assessmemt and Plan Problems Medical Problems: (1) Acute exacerbation of CHF (congestive heart failure) Status: Acute (2) Elevated troponin Status: Acute Comment Review of Relevant I have reviewed the following items jon (where applicable) has been applied. Medications: Current Medications Medications (Trade) Dose Ordered Sig/Keshav Route PRN Reason Start Time Stop Time Status Last Admin Dose Admin Pantoprazole Sodium (Protonix) 40 mg DAILYAC PO 11/23/21 21:30 11/24/21 07:44 Sodium Chloride 250 ml @ 125 mls/hr 1X ONCE IV 11/24/21 09:00 11/24/21 10:59 DC 11/24/21 08:58 Sodium Polystyrene Sulfonate (Kayexalate) 15 gm 1X ONCE PO 11/24/21 11:00 11/24/21 11:01 DC 11/24/21 10:58 Justifications for Admission Other Justification CHF exacerbation and elevated troponins BRAYAN RAYMOND MD Nov 24, 2021 12:24
--- NOTE | 2021-11-24 14:06 | PDOC ---
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 11/24/21 1406: CARDIO Progress Notes Date and Time Date of Service 11/24/21 Time of Evaluation 1045 Subjective Subjective: No Chest Pain, No Palpitations, No Dizziness, Other (SOA slightly improved ) Vitals Vitals Vital Signs Date Time Temp Pulse Resp B/P (MAP) Pulse Ox O2 Delivery O2 Flow Rate FiO2 11/24/21 11:26 Nasal Cannula 3.0 11/24/21 11:08 97.8 110 18 119/57 (77) 98 97.8 Weight Weight [ ] Input and Output Intake and Output Intake and Output 11/24/21 07:00 Intake Total 1600 ml Output Total 200 ml Balance 1400 ml Intake Oral 1600 ml Output Urine Total 200 ml # Voids 3 # Bowel Movements 3 Laboratory Labs Laboratory Tests Test 11/24/21 03:40 11/24/21 06:00 11/24/21 09:50 Urine Collection Type Unknown Urine Color Yellow Urine Clarity Clear Urine pH 5.5 (<5.0-8.0) Urine Specific [place] 1.025 (1.000-1.030) Urine Protein Negative mg/dL (NEG-TRACE) Urine Glucose (UA) Negative mg/dL (NEG) Urine Ketones (Stick) Trace mg/dL (NEG) Urine Blood Negative (NEG) Urine Nitrite Negative (NEG) Urine Bilirubin Negative (NEG) Urine Urobilinogen Dipstick 0.2 mg/dL (0.2 mg/dL) Urine Leukocyte Esterase Negative (NEG) Urine RBC 0 /HPF (0-2) Urine WBC 1-4 /HPF (0-4) Urine Squamous Epithelial Cells Mod /LPF Urine Bacteria Few /HPF (0-FEW) Urine Hyaline Casts Moderate /HPF Urine Mucus Mod /LPF White Blood Count 9.9 x10^3/uL (4.0-11.0) Red Blood Count 2.47 x10^6/uL (3.50-5.40) Hemoglobin 7.3 g/dL (12.0-15.5) Hematocrit 23.4 % (36.0-47.0) Mean Corpuscular Volume 95 fL (79-100) Mean Corpuscular Hemoglobin 30 pg (25-35) Mean Corpuscular Hemoglobin Concent 31 g/dL (31-37) Red Cell Distribution Width 17.7 % (11.5-14.5) Platelet Count 472 x10^3/uL (140-400) Neutrophils (%) (Auto) 94 % (31-73) Lymphocytes (%) (Auto) 2 % (24-48) Monocytes (%) (Auto) 3 % (0-9) Eosinophils (%) (Auto) 0 % (0-3) Basophils (%) (Auto) 0 % (0-3) Neutrophils # (Auto) 9.3 x10^3/uL (1.8-7.7) Lymphocytes # (Auto) 0.2 x10^3/uL (1.0-4.8) Monocytes # (Auto) 0.3 x10^3/uL (0.0-1.1) Eosinophils # (Auto) 0.0 x10^3/uL (0.0-0.7) Basophils # (Auto) 0.0 x10^3/uL (0.0-0.2) Sodium Level 130 mmol/L (136-145) 131 mmol/L (136-145) Potassium Level 5.9 mmol/L (3.5-5.1) 6.0 mmol/L (3.5-5.1) Chloride Level 89 mmol/L (98-107) 90 mmol/L (98-107) Carbon Dioxide Level 38 mmol/L (21-32) 36 mmol/L (21-32) Anion Gap 3 (6-14) 5 (6-14) Blood Urea Nitrogen 38 mg/dL (7-20) 41 mg/dL (7-20) Creatinine 1.4 mg/dL (0.6-1.0) 1.4 mg/dL (0.6-1.0) Estimated GFR (Cockcroft-Gault) 37.5 37.5 Glucose Level 166 mg/dL (70-99) 190 mg/dL (70-99) Calcium Level 9.0 mg/dL (8.5-10.1) 8.7 mg/dL (8.5-10.1) Magnesium Level 2.0 mg/dL (1.8-2.4) Physical Exam HEENT: Neck Supple W Full Motion Chest: Symmetric LUNGS: Other (diminished bases) Heart: RRR (ST), irregularly irregular (AFIB, rate near 110-115) Abdomen: Soft N/T Extremities: No Edema Neurology: alert, oriented, follow commands Assessment Assessment 1. Acute hypoxic respiratory failure; multifactorial with AE COPD and acute on chronic diastolic heart failure. 2. Acute on chronic diastolic heart failure: Recent echo showed normalized left ventricle systolic function with EF 50 to 55%. Recent right heart catheterization did not show any significant pulmonary hypertension. S/p IV diuresis. Lasix held with ^ Cr. 3. Nonischemic cardiomyopathy s/p biventricular ICD/FERRY CAPTAIN-D implantation with subsequent echocardiogram showing normalized LVEF. Recent device interrogation showed normal function. 4. PAFIB s/p ablation therapy followed by external cardioversion for recurrent atrial fibrillation and left atrial appendage closure. She was taken off all anticoagulation in the past by EP service. presently ST. Resume metoprolol as BP allows 5. Mitral regurgitation: moderate to severe MR on 2D echo and was referred to valve clinic for possible mitral valve clip procedure. Conservative management recommended for now. 6. Hypertension: Controlled 7. Hyperlipidemia: Continue statin therapy 8. DM2: Continue treatment per IM 9. Non-STEMI, most probably type II/demand ischemia. She is presently chest pain-free. Left heart catheterization in the past did not show any significant CAD 10. ESTEFANI, hyperkalemia; s/p kayexalate. nephrology consulted Justicifation of Admission Dx: Justifications for Admission: Justification of Admission Dx: Yes SAMM CRUZ MD 11/24/21 1545: CARDIO Progress Notes Assessment Assessment Patient seen and examined. Agree with MEETING COORDINATOR's assessment and plan. Acute on chronic diastolic heart failure well compensated Non-STEMI most of her type II/demand ischemia PAF, presently sinus tachycardia Continue current management for acute COPD exacerbation per pulmonary team Nephrology following for ESTEFANI/hyperkalemia 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 APRN Nov 24, 2021 14:06 SAMM CRUZ MD Nov 24, 2021 15:45
[2021-11-24 14:47] VITALS: BP 118/57
--- NOTE | 2021-11-24 14:48 | RAD ---
XR CHEST 1V INDICATION: SOB COMPARISON STUDY: 11/20/2021. FINDINGS: Life Support Devices: Right IJ Port-A-Cath. Left pectoral ICD/pacemaker. Lungs: Normal lung volume. Stable bilateral perihilar and basilar opacities. Pleura: Stable small pleural effusions. Heart and Mediastinum: Stable cardiomediastinal silhouette and great vessels. Bones and Soft Tissues: Stable regional skeleton and soft tissues. IMPRESSION: 1. Stable bilateral perihilar and basilar opacities. 2. Stable small pleural effusions. Electronically signed by: Randell Atkins MD (11/24/2021 2:45 PM) [id number]
[2021-11-24] MEDS: METOPROLOL SUCC 24HR ER 25 MG TAB.ER.24H. PO SCH (15:22)
[2021-11-24 19:20] VITALS: BP 102/60
[2021-11-24] MEDS: rOPINIRole 1 MG TABLET. PO SCH (20:58)
[2021-11-24] MEDS: ATORVASTATIN CALCIUM 20 MG TABLET PO SCH (20:58)
[2021-11-24] MEDS: AMITRIPTYLINE HCL 25 MG TABLET. PO SCH (20:58)
[2021-11-24] MEDS: MONTELUKAST SODIUM 10 MG TABLET. PO SCH (20:58)
[2021-11-24 22:35] VITALS: BP 120/69
[2021-11-25] VITALS (13 sets, daily range): BP systolic 61–114; BP diastolic 32–60
[2021-11-25] MEDS: IPRATRPIUM/ALBUTEROL 0.5/2.5MG 3 ML NEBU. NEB SCH ×3 (07:52→16:10)
[2021-11-25] MEDS: DOXYCYCLINE HYCLATE 100 MG TABLET PO SCH (08:06)
[2021-11-25] MEDS: ACETAMINOPHEN 325 MG TABLET. PO PRN (08:07)
[2021-11-25] MEDS: CHOLECALCIFEROL (VITAMIN D3) 1,000 UNIT TABLET PO SCH (08:07)
[2021-11-25] MEDS: CLOPIDOGREL BISULFATE 75 MG TABLET PO SCH (08:07)
[2021-11-25] MEDS: LACTOBACILLUS RHAMNOSUS GG 1 CAPSULE. PO SCH (08:07)
[2021-11-25] MEDS: THIAMINE 100 MG TABLET. PO SCH (08:07)
[2021-11-25] MEDS: FERROUS SULFATE 325 MG TABLET. PO SCH (08:07)
[2021-11-25] MEDS: LEVOTHYROXINE 50 MCG TABLET PO SCH (08:07)
[2021-11-25] MEDS: ROFLUMILAST 500 MCG TABLET. PO SCH (08:07)
[2021-11-25] MEDS: ALLOPURINOL 300 MG TABLET. PO SCH (08:07)
[2021-11-25] MEDS: GABAPENTIN 100 MG CAPSULE. PO SCH ×2 (08:08→13:29)
[2021-11-25] MEDS: ENOXAPARIN 40 MG/0.4 ML SYRINGE. SQ SCH (08:08)
[2021-11-25] MEDS: PANTOPRAZOLE 40 MG TABLET.DR. PO SCH (08:11)
--- NOTE | 2021-11-25 08:51 | PDOC ---
PULMONARY PROGRESS NOTES DATE: 11/25/21 TIME: 08:49 Subjective Patient deteriorated since this morning, ABG noted Placed on BiPAP Vitals Vital Signs Date Time Temp Pulse Resp B/P (MAP) Pulse Ox O2 Delivery O2 Flow Rate FiO2 11/25/21 07:32 Nasal Cannula 3.0 11/25/21 07:00 96.9 98 20 87/52 (64) 96 96.9 ROS: No Chest Pain, No Abdominal Pain, No Increase Cough General: Alert, No acute distress Lungs: Wheezing, Crackles Cardiovascular: S1, S2 Abdomen: Soft, Non-tender Extremities: No Edema Labs Laboratory Tests Test 11/24/21 03:40 11/24/21 06:00 11/24/21 09:50 Urine Collection Type Unknown Urine Color Yellow Urine Clarity Clear Urine pH 5.5 (<5.0-8.0) Urine Specific [place] 1.025 (1.000-1.030) Urine Protein Negative mg/dL (NEG-TRACE) Urine Glucose (UA) Negative mg/dL (NEG) Urine Ketones (Stick) Trace mg/dL (NEG) Urine Blood Negative (NEG) Urine Nitrite Negative (NEG) Urine Bilirubin Negative (NEG) Urine Urobilinogen Dipstick 0.2 mg/dL (0.2 mg/dL) Urine Leukocyte Esterase Negative (NEG) Urine RBC 0 /HPF (0-2) Urine WBC 1-4 /HPF (0-4) Urine Squamous Epithelial Cells Mod /LPF Urine Bacteria Few /HPF (0-FEW) Urine Hyaline Casts Moderate /HPF Urine Mucus Mod /LPF White Blood Count 9.9 x10^3/uL (4.0-11.0) Red Blood Count 2.47 x10^6/uL (3.50-5.40) Hemoglobin 7.3 g/dL (12.0-15.5) Hematocrit 23.4 % (36.0-47.0) Mean Corpuscular Volume 95 fL (79-100) Mean Corpuscular Hemoglobin 30 pg (25-35) Mean Corpuscular Hemoglobin Concent 31 g/dL (31-37) Red Cell Distribution Width 17.7 % (11.5-14.5) Platelet Count 472 x10^3/uL (140-400) Neutrophils (%) (Auto) 94 % (31-73) Lymphocytes (%) (Auto) 2 % (24-48) Monocytes (%) (Auto) 3 % (0-9) Eosinophils (%) (Auto) 0 % (0-3) Basophils (%) (Auto) 0 % (0-3) Neutrophils # (Auto) 9.3 x10^3/uL (1.8-7.7) Lymphocytes # (Auto) 0.2 x10^3/uL (1.0-4.8) Monocytes # (Auto) 0.3 x10^3/uL (0.0-1.1) Eosinophils # (Auto) 0.0 x10^3/uL (0.0-0.7) Basophils # (Auto) 0.0 x10^3/uL (0.0-0.2) Sodium Level 130 mmol/L (136-145) 131 mmol/L (136-145) Potassium Level 5.9 mmol/L (3.5-5.1) 6.0 mmol/L (3.5-5.1) Chloride Level 89 mmol/L (98-107) 90 mmol/L (98-107) Carbon Dioxide Level 38 mmol/L (21-32) 36 mmol/L (21-32) Anion Gap 3 (6-14) 5 (6-14) Blood Urea Nitrogen 38 mg/dL (7-20) 41 mg/dL (7-20) Creatinine 1.4 mg/dL (0.6-1.0) 1.4 mg/dL (0.6-1.0) Estimated GFR (Cockcroft-Gault) 37.5 37.5 Glucose Level 166 mg/dL (70-99) 190 mg/dL (70-99) Calcium Level 9.0 mg/dL (8.5-10.1) 8.7 mg/dL (8.5-10.1) Magnesium Level 2.0 mg/dL (1.8-2.4) Laboratory Tests Test 11/24/21 09:50 Sodium Level 131 mmol/L (136-145) Potassium Level 6.0 mmol/L (3.5-5.1) Chloride Level 90 mmol/L (98-107) Carbon Dioxide Level 36 mmol/L (21-32) Anion Gap 5 (6-14) Blood Urea Nitrogen 41 mg/dL (7-20) Creatinine 1.4 mg/dL (0.6-1.0) Estimated GFR (Cockcroft-Gault) 37.5 Glucose Level 190 mg/dL (70-99) Calcium Level 8.7 mg/dL (8.5-10.1) Medications Active Scripts Medications Dose Route/Sig Max Daily Dose Days Date Category Ferrous Sulfate 325 Mg Tablet 1 Tab PO DAILY 07/26/21 Reported Clopidogrel (Clopidogrel Bisulfate) 75 Mg Tablet 1 Tab PO DAILY 07/20/21 Reported Spironolactone 25 Mg Tablet 25 Mg PO DAILY 05/19/21 Reported Metoprolol Succinate ( Xl ) (Metoprolol Succinate) 25 Mg Tab.er.24h 25 Mg PO DAILY 05/19/21 Reported Voltaren Arthritis Pain (Diclofenac Sodium) 20 Gm Gel..gram. 20 Gm TP PRN PRN 05/19/21 Reported Entresto 24 mg-26 mg Tablet (Sacubitril/Valsartan) 1 Each Tablet 1 Each PO BID 30 11/19/20 Rx Gabapentin (Gabapentin) 100 Mg Capsule 100 Mg PO TID 10/18/20 Reported Alendronate Sodium 70 Mg Tablet 1 Tab PO WEEKLY 10/16/20 Reported Allopurinol 300 Mg Tablet 1 Tab PO DAILY 10/16/20 Reported Trelegy Ellipta 100-62.5-25 (Fluticasone/Umeclidin/Vilanter) 1 Each Blst.w.dev 1 Each IH DAILY 03/17/20 Reported Prilosec Otc (Omeprazole Magnesium) 20 Mg Tablet.dr 40 Mg PO DAILY 03/17/20 Reported Duoneb 0.5-3(2.5) Mg/3 Ml (Albuterol/Ipratropium) 3 Ml Ampul.neb 3 Ml NEB Q4HRS 14 10/22/19 Rx K-Tab ER (Potassium Chloride) 20 Meq Tablet.er 20 Meq PO DAILY 07/30/19 Reported Montelukast Sodium Tablet (Montelukast Sodium) 10 Mg Tablet 10 Mg PO HS 07/29/19 Reported Levocetirizine Dihydrochloride 5 Mg Tablet 5 Mg PO DAILY 07/29/19 Reported Amitriptyline Hcl 25 Mg Tablet 25 Mg PO QHS 07/29/19 Reported Vitamin D3 (Cholecalciferol (Vitamin D3)) 1,000 Unit Tablet 1 Tab PO DAILY 01/02/18 Reported Torsemide 20 Mg Tablet 2 Tab PO DAILY 01/02/18 Reported Daliresp (Roflumilast) 500 Mcg Tablet 1 Tab PO DAILY 09/23/17 Reported Atorvastatin Calcium 20 Mg Tablet 20 Mg PO HS 09/23/17 Reported Requip (Ropinirole Hcl) 1 Mg Tablet 3 Tab PO QHS 09/23/17 Reported Proair Hfa Inhaler (Albuterol Sulfate) 8.5 Gm Hfa.aer.ad 1 Puff INH PRN Q6HRS PRN 09/23/17 Reported Levothyroxine Sodium 50 Mcg Tablet 1 Tab PO DAILY 09/23/17 Reported Impression . IMPRESSION: 1. Acute hypoxemic respiratory failure, multifactorial in etiology including acute diastolic congestive heart failure, acute exacerbation of chronic obstructive pulmonary disease, acute bronchitis, rule out thromboembolic disease. 2. Abnormal chest x-ray. 3. Acute diastolic congestive heart failure. 4. Acute exacerbation of chronic obstructive pulmonary disease. 5. Acute bronchitis. 6. History of nonischemic cardiomyopathy, status post biventricular implantable cardioverter defibrillator. A subsequent echocardiogram showed normal ejection fraction. 7. Paroxysmal atrial fibrillation, status post ablation followed by external cardioversion for recurrent atrial fibrillation, left atrial appendage closure, now in sinus tachycardia. She has been off anticoagulation since June of last year. 8. Mitral regurgitation, moderate to severe. 9. Hypertension. 10. Diabetes mellitus. 11. Non-ST elevation myocardial infarction. Plan . Updated 11/25/2021 Continue BiPAP As needed anxiolytic IV Lasix, unfortunately patient had hypotension, continue diuresis on hold Chest x-ray reviewed slightly improved Nausea per PCP Bronchodilators Continue steroids Follow cardiology recommendations-Recent echo showed normalized left ventricle systolic function with EF 50 to 55%.--Diuresis remains on hold Continue doxycycline DVT/GI prophylaxis: Protonix/Lovenox Discussed with RN Discussed with Dr. Parra Updated 11/24 diuresis on hold Creatinine BUN increased Patient may be vascularly depleted Follow cardiology input Decrease steroids to daily LETICIA FORTUNE MD Nov 25, 2021 08:51
[2021-11-25] MEDS: METOPROLOL SUCC 24HR ER 25 MG TAB.ER.24H. PO SCH (09:00)
[2021-11-25] MEDS ORDERED: methylPREDNISolone SOD SUCC PF 40 MG/ML VIAL. IV SCH (09:00)
--- NOTE | 2021-11-25 10:20 | PDOC2 ---
CONSULT Date of Consult Date of Consult DATE: 11/25/21 TIME: 10:20 Reason for Consult Reason for Consult: ESTEFANI and Hyperkalemia Identification/Chief Complaint Chief Complaint "I m not feeling very good". Doesnt offer any specific complaints Source Source: Chart review, Patient History of Present Illness Reason for Visit: 66 year old CF with extensive past medical history including CAD, CHF and COPD who presents with 1 week history of shortness of breath.admitted to [facility] on 11/21 . She had seen her magnetic observer, Dr. Driscoll, 2 days prior to the symptoms. She reports she was instructed to double her Lasix for a few days. She states she uses O2 at home 3 lts by [place]. States her SOB is stable . Denies any CP . C/O some Nausea . Denies abdominal pain . No F/C. Denies any symptoms of UTI- no dysuria , hematuria. States she feels she is not emptying her bladder completely and has some dribbling She states she thinks she has LE swelling but doctors think otherwise. She states she has been referred to Nephrology for OP appt but is not sure if it has been scheduled Past Medical History Cardiovascular: AFIB, CHF Pulmonary: COPD CENTRAL NERVOUS SYSTEM: Other GI: No pertinent hx Heme/Onc: No pertinent hx Hepatobiliary: No pertinent hx Psych: No pertinent hx Musculoskeletal: Osteoarthritis Rheumatologic: No pertinent hx Infectious disease: No pertinent hx Renal/: Chronic renal insuff Endocrine: Diabetes, Hypothyroidism Past Surgical History Past Surgical History: Pacemaker Family History Family History: No Significant, Heart Disease Social History ALCOHOL: none Drugs: None Lives: with Family Current Problem List Problem List Problems Medical Problems: (1) Acute exacerbation of CHF (congestive heart failure) Status: Acute (2) Elevated troponin Status: Acute Current Medications Current Medications Current Medications Sodium Chloride (NORMAL SALINE FLUSH for STERILE FIELD) 10 ml STK-MED ONCE .ROUTE ; Start 11/20/21 at 19:00; Stop 11/20/21 at 19:00; Status DC Furosemide (Lasix) 40 mg DAILY IVP Last administered on 11/22/21at 08:19; Start 11/20/21 at 20:30; Stop 11/23/21 at 12:43; Status DC Albuterol Sulfate (Ventolin Neb Soln) 2.5 mg PRN Q6HRS PRN INH SHORTNESS OF BREATH; Start 11/21/21 at 05:45; Status Cancel Allopurinol (Zyloprim) 300 mg DAILY PO Last administered on 11/25/21 08:07; Start 11/21/21 at 09:00 Amitriptyline HCl (Elavil) 25 mg QHS PO Last administered on 11/24/21at 20:58; Start 11/21/21 at 21:00 Atorvastatin Calcium (Lipitor) 20 mg HS PO Last administered on 11/24/21 20: 58; Start 11/21/21 at 21:00 Vitamin D (Vitamin D3) 1,000 unit DAILY PO Last administered on 11/25/21 08:07; Start 11/21/21 at 09:00 Clopidogrel Bisulfate (Plavix) 75 mg DAILY08 PO Last administered on 11/25/21 08:07; Start 11/21/21 at 08:00 Diclofenac Sodium (Voltaren) 20 rosa elena PRN BID PRN TP PAINFUL JOINTS; Start 11/21/21 at 05:45 Ferrous Sulfate (Feosol) 325 mg DAILY08 PO Last administered on 11/25/21at 08:07; Start 11/21/21 at 08:00 Gabapentin (Neurontin) 100 mg TID PO Last administered on 11/25/21at 08:08; Start 11/21/21 at 09:00 Albuterol/ Ipratropium (Duoneb) 3 ml Q4HRS W/A NEB ; Start 11/21/21 at 06:00; Stop 11/21/21 at 06:06; Status DC Levothyroxine Sodium (Synthroid) 50 mcg DAILY PO Last administered on 11/25/21at 08:07; Start 11/21/21 at 09:00 Montelukast Sodium (Singulair) 10 mg HS PO Last administered on 11/24/21at 20:58; Start 11/21/21 at 21:00 Roflumilast (Daliresp) 500 mcg DAILY PO Last administered on 11/25/21 08:07; Start 11/21/21 at 09:00 Ropinirole HCl (Requip) 3 mg QHS PO Last administered on 11/24/21at 20:58; Start 11/21/21 at 21:00 Sacubitril/ Valsartan (Entresto 24 Mg-26 Mg) 1 tab BID PO Last administered on 11/22/21at 19:50; Start 11/21/21 at 09:00; Stop 11/23/21 at 12:43; Status DC Albuterol Sulfate (Ventolin Hfa) 2 puff PRN Q6HRS PRN INH SOA Last administered on 11/21/21at 06:17; Start 11/21/21 at 06:15; Stop 11/21/21 at 12:54; Status DC Albuterol/ Ipratropium (Combivent Respimat 20-100 Mcg) 1 puff Q4HRS W/A INH Last administered on 11/21/21at 14:00; Start 11/21/21 at 06:30; Stop 11/21/21 at 16:04; Status DC Sennosides (Senna) 17.2 mg PRN BID PRN PO CONSTIPATION; Start 11/21/21 at 09:15 Docusate Sodium (Colace) 100 mg PRN DAILY PRN PO HARD STOOLS; Start 11/21/21 at 09:15 Ondansetron HCl (Zofran) 4 mg PRN Q6HRS PRN IVP NAUSEA/VOMITING, 1st CHOICE Last administered on 11/23/21at 19:09; Start 11/21/21 at 09:15 Dextrose (Dextrose 50%-Water Syringe) 12.5 gm PRN Q15MIN PRN IV SEE COMMENTS; Start 11/21/21 at 09:15 Acetaminophen (Tylenol) 650 mg PRN Q4HRS PRN PO TEMP OVER 100.4F OR MILD PAIN Last administered on 11/25/21at 08:07; Start 11/21/21 at 09:15 Lorazepam (Ativan) 0.5 mg PRN Q6HRS PRN PO ANXIETY / AGITATION; Start 11/21/21 at 09:15 Lorazepam (Ativan Inj) 0.25 mg PRN Q4HRS PRN IV ANXIETY / AGITATION; Start 11/21/21 at 09:15 Enoxaparin Sodium (Lovenox 30mg Syringe) 30 mg DAILY SQ Last administered on 11/22/21at 08:18; Start 11/21/21 at 10:00; Stop 11/22/21 at 10:04; Status DC Prochlorperazine Edisylate (Compazine) 10 mg PRN Q6HRS PRN IV NAUSEA/VOMITING, 2nd CHOICE; Start 11/21/21 at 09:15 Diphenhydramine HCl (Benadryl) 25 mg PRN Q6HRS PRN IVP ITCHING; Start 11/21/21 at 09:15 Diphenhydramine HCl (Benadryl) 25 mg PRN Q6HRS PRN PO ITCHING; Start 11/21/21 at 09:15 Diphenhydramine HCl (Benadryl) 25 mg PRN QHS PRN PO INSOMNIA, 1st CHOICE; Start 11/21/21 at 09:15 Zolpidem Tartrate (Ambien) 2.5 mg PRN QHS PRN PO INSOMNIA, 2nd CHOICE; Start 11/21/21 at 09:15 Methylprednisolone Sodium Succinate (SOLU-Medrol 40MG VIAL) 40 mg Q8HRS IV Last administered on 11/24/21at 12:59; Start 11/21/21 at 14:00; Stop 11/24/21 at 14:33; Status DC Thiamine Mononitrate (Vitamin B-1) 300 mg DAILY PO Last administered on at 08:07; Start 11/22/21 at 09:00 Albuterol/ Ipratropium (Duoneb) 3 ml RTQID NEB Last administered on 11/24/21at 19:57; Start 11/21/21 at 16:00 Magnesium Sulfate 50 ml @ 25 mls/hr 1X ONCE IV Last administered on 11/22/21at 09:05; Start 11/22/21 at 09:00; Stop 11/22/21 at 10:59; Status DC Doxycycline Hyclate (Vibra-Tab) 100 mg 1X ONCE PO ; Start 11/22/21 at 09:15; Stop 11/22/21 at 09:16; Status UNV Doxycycline Hyclate (Vibra-Tab) 100 mg BID PO Last administered on 11/25/21at 08:06; Start 11/22/21 at 10:00 Doxycycline Hyclate (Vibra-Tab) 100 mg 1X ONCE PO ; Start 11/22/21 at 09:15; Stop 11/22/21 at 09:16; Status UNV Iohexol (Omnipaque 350 Mg/ml) 90 ml 1X ONCE IV Last administered on 11/22/21at 09:30; Start 11/22/21 at 09:30; Stop 11/22/21 at 09:31; Status DC Info (CONTRAST GIVEN -- Rx MONITORING) 1 each PRN DAILY PRN MC SEE COMMENTS; Start 11/22/21 at 09:30; Stop 11/24/21 at 09:29; Status DC Enoxaparin Sodium (Lovenox 40mg Syringe) 40 mg Q24H SQ Last administered on 11/25/21at 08:08; Start 11/23/21 at 09:00 Lactobacillus Rhamnosus (Culturelle) 1 cap BID PO Last administered on 11/25/21at 08:07; Start 11/22/21 at 21:00 Pantoprazole Sodium (Protonix) 40 mg DAILYAC PO Last administered on 11/25/21at 08:11; Start 11/23/21 at 21:30 Sodium Chloride 250 ml @ 125 mls/hr 1X ONCE IV Last administered on 11/24/21at 08:58; Start 11/24/21 at 09:00; Stop 11/24/21 at 10:59; Status DC Sodium Polystyrene Sulfonate (Kayexalate) 15 gm 1X ONCE PO Last administered on 11/24/21at 10:58; Start 11/24/21 at 11:00; Stop 11/24/21 at 11:01; Status DC Methylprednisolone Sodium Succinate (SOLU-Medrol 40MG VIAL) 40 mg DAILY IV Last administered on 11/25/21at 08:08; Start 11/25/21 at 09:00 Metoprolol Succinate (Toprol Xl) 25 mg DAILY PO Last administered on 11/25/21at 09:00; Start 11/24/21 at 16:00 Active Scripts Active Entresto 24 mg-26 mg Tablet (Sacubitril/Valsartan) 1 Each Tablet 1 Each PO BID 30 Days Duoneb 0.5-3(2.5) Mg/3 Ml (Albuterol/Ipratropium) 3 Ml Ampul.neb 3 Ml NEB Q4HRS 14 Days Reported Ferrous Sulfate 325 Mg Tablet 1 Tab PO DAILY Clopidogrel (Clopidogrel Bisulfate) 75 Mg Tablet 1 Tab PO DAILY Spironolactone 25 Mg Tablet 25 Mg PO DAILY Metoprolol Succinate ( Xl ) (Metoprolol Succinate) 25 Mg Tab.er.24h 25 Mg PO DAILY Voltaren Arthritis Pain (Diclofenac Sodium) 20 Gm Gel..gram. 20 Gm TP PRN PRN Gabapentin (Gabapentin) 100 Mg Capsule 100 Mg PO TID Alendronate Sodium 70 Mg Tablet 1 Tab PO WEEKLY Allopurinol 300 Mg Tablet 1 Tab PO DAILY Trelegy Ellipta 100-62.5-25 (Fluticasone/Umeclidin/Vilanter) 1 Each Blst.w.dev 1 Each IH DAILY Prilosec Otc (Omeprazole Magnesium) 20 Mg Tablet.dr 40 Mg PO DAILY K-Tab ER (Potassium Chloride) 20 Meq Tablet.er 20 Meq PO DAILY Montelukast Sodium Tablet (Montelukast Sodium) 10 Mg Tablet 10 Mg PO HS Levocetirizine Dihydrochloride 5 Mg Tablet 5 Mg PO DAILY Amitriptyline Hcl 25 Mg Tablet 25 Mg PO QHS Vitamin D3 (Cholecalciferol (Vitamin D3)) 1,000 Unit Tablet 1 Tab PO DAILY Torsemide 20 Mg Tablet 2 Tab PO DAILY Daliresp (Roflumilast) 500 Mcg Tablet 1 Tab PO DAILY Atorvastatin Calcium 20 Mg Tablet 20 Mg PO HS Requip (Ropinirole Hcl) 1 Mg Tablet 3 Tab PO QHS Proair Hfa Inhaler (Albuterol Sulfate) 8.5 Gm Hfa.aer.ad 1 Puff INH PRN Q6HRS PRN Levothyroxine Sodium 50 Mcg Tablet 1 Tab PO DAILY Allergies Allergies: Coded Allergies: ibuprofen (Verified Allergy, Severe, Swelling, 09/30/21) naproxen (Verified Allergy, Severe, Shortness of Air, 09/30/21) tolerates asa piperacillin (Verified Allergy, Severe, Swelling, 09/30/21) Tolerated cefepime tazobactam (Verified Allergy, Severe, Swelling, 09/30/21) fentanyl (Verified Adverse Reaction, Severe, agitation, 09/30/21) violent behavior ROS Review of System As per HPI, rest of the ROS is negative Physical Exam Physical Exam General: NAD, sitting up in chair HEENT: Atraumatic, OM moist, On O2 by [place] 3 lts- chronic Neck Supple Lungs Decreased at bases, Non labored CVS1S2 Abdomen: Soft, NT, BS + Extremities: No LE edema Neuro: Grossly normal Cooperative No Ortiz, No CVA or SP tenderness Derm No Rash Vital Signs Vital Signs Date Time Temp Pulse Resp B/P (MAP) Pulse Ox O2 Delivery O2 Flow Rate FiO2 11/25/21 09:00 104 92/51 11/25/21 07:32 Nasal Cannula 3.0 11/25/21 07:00 96.9 20 96 96.9 Assessment & Plan ESTEFANI vs CKD - Baseline Creat fluctuating 1.2-1.4 at least since 2018 per [facility] records; UA unremarkable UOP not recorded . Supportive care, avoid Nephrotoxins , Strict I/O , maintain fluid balance . HyperKalemia- etiology uncertain. Recd Kayexalate x1 on 11/24. No labs this morning Renal Calculus -CT scan in 2020 r: Kidneys are normal in size. There is right nephrolithiasis. No hydronephrosis. Ureters are normal. Urinary bladder is normal. Renal ordered US HTN- BP's low , Cardiology managing Acute hypoxic respiratory failure; multifactorial with AE COPD and acute on chronic diastolic heart failure. Acute on chronic diastolic heart failure: Recent echo showed normalized left ventricle systolic function with EF 50 to 55%. Recent right heart catheterization did not show any significant pulmonary hypertension. S/p IV diuresis. Lasix held with ^ Cr. Nonischemic cardiomyopathy s/p biventricular ICD/GROUP CONTROLLER-D implantation with subsequent echocardiogram showing normalized LVEF PAFIB s/p ablation therapy followed by external cardioversion for recurrent atrial fibrillation and left atrial appendage closure. Mitral regurgitation: moderate to severe MR on 2D echo and was referred to valve clinic for possible mitral valve clip procedure. DM2: Continue treatment per IM Labs Labs Laboratory Tests Test 11/24/21 03:40 11/24/21 06:00 11/24/21 09:50 Urine Collection Type Unknown Urine Color Yellow Urine Clarity Clear Urine pH 5.5 (<5.0-8.0) Urine Specific [place] 1.025 (1.000-1.030) Urine Protein Negative mg/dL (NEG-TRACE) Urine Glucose (UA) Negative mg/dL (NEG) Urine Ketones (Stick) Trace mg/dL (NEG) Urine Blood Negative (NEG) Urine Nitrite Negative (NEG) Urine Bilirubin Negative (NEG) Urine Urobilinogen Dipstick 0.2 mg/dL (0.2 mg/dL) Urine Leukocyte Esterase Negative (NEG) Urine RBC 0 /HPF (0-2) Urine WBC 1-4 /HPF (0-4) Urine Squamous Epithelial Cells Mod /LPF Urine Bacteria Few /HPF (0-FEW) Urine Hyaline Casts Moderate /HPF Urine Mucus Mod /LPF White Blood Count 9.9 x10^3/uL (4.0-11.0) Red Blood Count 2.47 x10^6/uL (3.50-5.40) Hemoglobin 7.3 g/dL (12.0-15.5) Hematocrit 23.4 % (36.0-47.0) Mean Corpuscular Volume 95 fL (79-100) Mean Corpuscular Hemoglobin 30 pg (25-35) Mean Corpuscular Hemoglobin Concent 31 g/dL (31-37) Red Cell Distribution Width 17.7 % (11.5-14.5) Platelet Count 472 x10^3/uL (140-400) Neutrophils (%) (Auto) 94 % (31-73) Lymphocytes (%) (Auto) 2 % (24-48) Monocytes (%) (Auto) 3 % (0-9) Eosinophils (%) (Auto) 0 % (0-3) Basophils (%) (Auto) 0 % (0-3) Neutrophils # (Auto) 9.3 x10^3/uL (1.8-7.7) Lymphocytes # (Auto) 0.2 x10^3/uL (1.0-4.8) Monocytes # (Auto) 0.3 x10^3/uL (0.0-1.1) Eosinophils # (Auto) 0.0 x10^3/uL (0.0-0.7) Basophils # (Auto) 0.0 x10^3/uL (0.0-0.2) Sodium Level 130 mmol/L (136-145) 131 mmol/L (136-145) Potassium Level 5.9 mmol/L (3.5-5.1) 6.0 mmol/L (3.5-5.1) Chloride Level 89 mmol/L (98-107) 90 mmol/L (98-107) Carbon Dioxide Level 38 mmol/L (21-32) 36 mmol/L (21-32) Anion Gap 3 (6-14) 5 (6-14) Blood Urea Nitrogen 38 mg/dL (7-20) 41 mg/dL (7-20) Creatinine 1.4 mg/dL (0.6-1.0) 1.4 mg/dL (0.6-1.0) Estimated GFR (Cockcroft-Gault) 37.5 37.5 Glucose Level 166 mg/dL (70-99) 190 mg/dL (70-99) Calcium Level 9.0 mg/dL (8.5-10.1) 8.7 mg/dL (8.5-10.1) Magnesium Level 2.0 mg/dL (1.8-2.4) Review All relevant outside records, renal labs, imaging studies, telemetry/EKG's were reviewed. Images Images B PROCEDURE: CHEST AP ONLY XR CHEST 1V INDICATION: SOB COMPARISON STUDY: 11/20/2021. FINDINGS: Life Support Devices: Right IJ Port-A-Cath. Left pectoral ICD/pacemaker. Lungs: Normal lung volume. Stable bilateral perihilar and basilar opacities. Pleura: Stable small pleural effusions. Heart and Mediastinum: Stable cardiomediastinal silhouette and great vessels. Bones and Soft Tissues: Stable regional skeleton and soft tissues. IMPRESSION: 1. Stable bilateral perihilar and basilar opacities. 2. Stable small pleural effusions. Electronically signed by: Randell Atkins MD (11/24/2021 2:45 PM) [id number] DIMITRY DIOR MD Nov 25, 2021 10:20
--- NOTE | 2021-11-25 10:31 | PDOC ---
[employer] PROGRESS NOTE Date of Service DOS: DATE: 11/25/21 TIME: 10:29 Chief Complaint Chief Complaint Assessment/Plan Acute hypoxic respiratory failure Elevated troponins due to demand ischemia Elevated BNP likely due to volume overload versus chronic hypoxia Isolated elevated alkaline phosphatase Home oxygen therapy at 3 L currently at baseline History of CAD asymptomatic History of CHF compensated Diabetes mellitus type 2 insulin requiring Essential hypertension hyperlipidemia Acquired hypothyroidism History of AICD History of diastolic CHF, grade 1 abnormal relaxation pattern Hx left shoulder surgery, Hx tobacco abuse (quit 3 years ago) We will hold on IV Lasix today due to hypotension Patient has not been taking Entresto for couple months I have discontinued this. Pulmonology consult for COPD work-up and PE rule out Cardiology consult for elevated troponins IV steroids IV Lasix diuresis as needed Combivent inhaler Lovenox for DVT prophylaxis Protonix GI prophylaxis ADA diet CODE STATUS full Discussed with RN and SW Disposition inpatient management as above DPOA: History of Present Illness History of Present Illness 66 year old female with extensive past medical history including CAD, CHF and COPD who presents with 1 week history of shortness of breath. Patient states she saw her boiler plant operator, Dr. Driscoll, 2 days ago regarding her symptoms. She states she was instructed to double her Lasix for a few days. Patient reported associated bilateral lower extremity swelling, that has since resolved. Patient reports she is unable to lay down to sleep and has had to periodically increase her daily oxygen by 0.5-1 L during the day. Patient denies chest pain, palpitations, cough, fever, chills. 11/22/2021 No acute events overnight. Patient seen examined bedside. Patient saturating 93% on 3 L nasal cannula. Not more short of breath than usual. Edema has improved. I have consulted pulmonology for further work-up. As of now we will try to rule out PE. We will continue with IV steroids and diuresis as needed. Appreciate cardiology and pulmonary recommendations. Patient's chart, labs, images were reviewed and discussed with RN 11/23/2021 No acute events overnight. Patient seen and examined bedside. Patient saturating 93% on 3 L nasal cannula. Complaining of a dry cough with no production but sounds wet. Edema has improved. Creatinine bumped to 1.4 so I will hold her IV Lasix today. Her blood pressure is also in the low normal range. I have also held her Entresto which she states that she has not been given for past couple months. We will continue with IV steroids at this time. Hemoglobin 7.2 today and patient complaining of small purpuric pain less like lesions in her extremities that started before her hospitalization. Patient is not on any blood thinners and platelets are normal. We will continue to observe for now. Patient's chart, labs, images were reviewed and discussed with RN 11/24/2021 No acute events overnight. Patient seen examined bedside. Still saturating 93% on 3 l nasal cannula. Complains of productive cough. Yellowish sputum. Will obtain chest x-ray today. Potassium was 6.0 today and creatinine 1.4. We will consult nephrology for ESTEFANI. Kayexalate one-time dose was given. 250 NS bolus given I suspect there might be some volume depletion. Protonix started last night for GI upset and reflux secondary to likely steroid use.\\ 11/25, weakness, marked nausea, has vomited x2, potassium was up for 2 days, kayexalate given, would not give additional dosing due to GI symptoms has been diuresed very aggressively, 1 lite given yesterday, consult GI, on protonix, has hx GERD, did get EGD by Dr. Oliveira she says a year ago acute hyperkaleima, given IV fluid, tried to give Lasix, BP dropped, renal consult, may need HD Vitals/I&O Vitals/I&O: Vital Signs Date Time Temp Pulse Resp B/P (MAP) Pulse Ox O2 Delivery O2 Flow Rate FiO2 11/25/21 09:00 104 92/51 11/25/21 07:32 Nasal Cannula 3.0 11/25/21 07:00 96.9 20 96 96.9 I & O 11/24/21 11/24/21 11/25/21 14:59 22:59 06:59 Intake Total 600 ml Output Total 200 ml Balance 400 ml Physical Exam General: Alert, Oriented X3, Cooperative, mild distress Heart: Regular rate Lungs: Wheezing, Crackles Abdomen: Soft Extremities: No clubbing, No edema Skin: No rashes Assessment and Plan Assessmemt and Plan Problems Medical Problems: (1) Acute exacerbation of CHF (congestive heart failure) Status: Acute (2) Elevated troponin Status: Acute Comment Review of Relevant I have reviewed the following items jon (where applicable) has been applied. Medications: Current Medications Medications (Trade) Dose Ordered Sig/Keshav Route PRN Reason Start Time Stop Time Status Last Admin Dose Admin Sodium Polystyrene Sulfonate (Kayexalate) 15 gm 1X ONCE PO 11/24/21 11:00 11/24/21 11:01 DC 11/24/21 10:58 Methylprednisolone Sodium Succinate (SOLU-Medrol 40MG VIAL) 40 mg DAILY IV 11/25/21 09:00 11/25/21 08:08 Metoprolol Succinate (Toprol Xl) 25 mg DAILY PO 11/24/21 16:00 11/25/21 09:00 Justifications for Admission Other Justification CHF exacerbation and elevated troponins DEMETRA BABIN MD Nov 25, 2021 10:30
--- NOTE | 2021-11-25 10:56 | PDOC ---
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 SUPERVISOR [employer]EL[employer]INTENANCE 11/25/21 1056: CARDIO Progress Notes Date and Time Date of Service 11/25/21 Time of Evaluation 1050 Subjective Subjective: No Chest Pain, No Palpitations, No Dizziness, Other (c/o SOA) Comments: Rapid response called for brief period of unresposivenss on commode today Vitals Vitals Vital Signs Date Time Temp Pulse Resp B/P (MAP) Pulse Ox O2 Delivery O2 Flow Rate FiO2 11/25/21 09:00 104 92/51 11/25/21 07:32 Nasal Cannula 3.0 11/25/21 07:00 96.9 20 96 96.9 Weight Weight [ ] Input and Output Intake and Output Intake and Output 11/25/21 07:00 Intake Total 600 ml Output Total 200 ml Balance 400 ml Intake Oral 600 ml Output Urine Total 200 ml # Bowel Movements 1 Physical Exam HEENT: Neck Supple W Full Motion Chest: Symmetric LUNGS: Other (diminished bases) Heart: RRR (SR) Abdomen: Soft N/T Extremities: No Edema Neurology: alert, oriented, follow commands Assessment Assessment 1. Acute hypoxic respiratory failure; multifactorial with AE COPD and acute on chronic diastolic heart failure. 2. Acute on chronic diastolic heart failure: Recent echo showed normalized left ventricle systolic function with EF 50 to 55%. Recent right heart catheterization did not show any significant pulmonary hypertension. S/p IV diuresis. Lasix held with ^ Cr. 3. Nonischemic cardiomyopathy s/p biventricular ICD/[employer] TESTER-D implantation with subsequent echocardiogram showing normalized LVEF. Recent device interrogation showed normal function. 4. PAFIB s/p ablation therapy followed by external cardioversion for recurrent atrial fibrillation and left atrial appendage closure. She was taken off all anticoagulation in the past by EP service. presently SR. hold metoprolol with low-end blood pressure 5. Mitral regurgitation: moderate to severe MR on 2D echo and was referred to valve clinic for possible mitral valve clip procedure. Conservative management recommended for now. 6. Hypertension: Controlled 7. Hyperlipidemia: Continue statin therapy 8. DM2: Continue treatment per IM 9. Non-STEMI, most probably type II/demand ischemia. She is presently chest pain-free. Left heart catheterization in the past did not show any significant CAD 10. ESTEFANI, hyperkalemia; s/p kayexalate. as per nephrology 11. Syncope; brief episode. most probably vasovagal as patient was on commode. No arrhythmias noted on tele. Justicifation of Admission Dx: Justifications for Admission: Justification of Admission Dx: Yes SAMM CRUZ MD 11/25/212111: CARDIO Progress Notes Assessment Assessment Patient seen and examined. Agree with DIRECTOR OF VOLUNTEER SERVICES's assessment and plan. Syncope and events surrounding rapid response noted Acute on chronic diastolic heart failure well compensated Non-STEMI most of her type II/demand ischemia PAF, presently sinus tachycardia Continue current management for acute COPD exacerbation per pulmonary team Nephrology following for ESTEFANI/hyperkalemia 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 APRN Nov 25, 2021 10:56 SAMM CRUZ MD Nov 25, 2021 21:12
[2021-11-25 11:42] LABS: CALCIUM 8.9 mg/dL (8.5-10.1); CREATININE 1.5 mg/dL (0.6-1.0); GFR 34.6
[2021-11-25 11:45] LABS: POTASSIUM 6.9 mmol/L (3.5-5.1)
[2021-11-25 12:26] LABS: BASE EXCESS ABG -5 mmol/L (-3-3); HCO3 ABG 24 mmol/L (21-28); PO2 ABG 99 mmHg (65-108); SAT O2 ABG 96 % (92-99)
[2021-11-25 12:28] LABS: FIO2 ABG 32/ 3LNC; PCO2 ABG 62 mmHg (35-46)
--- NOTE | 2021-11-25 12:43 | NUR ---
SS following up with discharge planning. SS reviewed pt chart and discussed with pt RN. Pt is currently requiring oxygen at three liters nasal canula. COVID19 negative. Pt has home oxygen. Pt on IV Solu-Medrol and PO Doxycycline. PT/OT recommended fdc unit. Pt accepted at [facility], ; fax [phone]. Rapid called today. Not ready per physician. SS will continue to follow for discharge planning.
--- NOTE | 2021-11-25 12:46 | PDOC2 ---
GI CONSULT Date of Service: DATE: 11/25/21 TIME: 12:29 Reason For Consult: nausea HPI: HPI: 66 y/o female admitted 11/21/21 w/ resp failure, now w/ ESTEFANI, hyponatremia, hyperkalemia (K 6.9 today). We're asked to see today for nausea. Rapid response just called - staff in room, EKG in process. Nurse says she was up to use commode, possible hypotensive episode. Says she has c/o increased acid reflux and nausea. Stooled yesterday after Kayexalate. Long h/o GERD controlled w/ Prilosec QD. Chronic anemia on iron. Has needed transfusions over the past year. We last saw here in the hospital on 11/03/21 for suspected hemorrhoidal bleeding - she reported this being a chronic issue. Recommendation for topical treatment w/ consideration for flex sig/hemorrhoidectomy if persistent. Previously reported EGD and colonoscopy >10 years ago w/ Dr. Kimble. CT in 04/2021 noted mild diffuse gastric wall thickening along the greater curvature of the stomach without focal mass and diverticula in the first portion of the duodenum. Colonoscopy for DAYANA by Dr. Oliveira on 09/30/21 showed 7mm adenomatous polyp in transverse colon, sigmoid diverticulosis, and non-bleeding internal hemorrhoids. S/p cholecystectomy for stones. No liver, pancreas, or PUD history. H/o A Fib on Plavix and ASA. Iron profile c/w ACD in 09/2021, B12 normal (406) in 08/2021. Cortisol normal in 2017, TSH normal 07/2021, ferritin elevated 10/2021, haptoglobin elevated 08/2021. PMH: PMH: A Fib, CHF, HTN, HLD, NICM, COPD, pulm HTN, RLS, OA, osteoporosis, gout, DM, CKD, hypothyroidism, pulmonary nodules, anxiety, depression pacemaker/defib, left shoulder arthroscopy, total hysterectomy, cholecystectomy, lung biopsies (no malignancy), cardiac cath, Watchman FH: Family History: No pertinent hx Social History: Smoke: Quit ALCOHOL: none Drugs: None ROS: currently unable to obtain Vitals: Vitals: Vital Signs Date Time Temp Pulse Resp B/P (MAP) Pulse Ox O2 Delivery O2 Flow Rate FiO2 11/25/21 11:00 98.0 93 20 102/60 (74) 97 Nasal Cannula 3.0 98.0 Labs: Labs: Laboratory Tests Test 11/25/21 11:11 11/25/21 12:18 Sodium Level 125 mmol/L (136-145) Potassium Level 6.9 mmol/L (3.5-5.1) Chloride Level 88 mmol/L (98-107) Carbon Dioxide Level 28 mmol/L (21-32) Anion Gap 9 (6-14) Blood Urea Nitrogen 40 mg/dL (7-20) Creatinine 1.5 mg/dL (0.6-1.0) Estimated GFR (Cockcroft-Gault) 34.6 Glucose Level 161 mg/dL (70-99) Calcium Level 8.9 mg/dL (8.5-10.1) O2 Saturation 96 % (92-99) Arterial Blood pH 7.20 (7.35-7.45) Arterial Blood pCO2 at Patient Temp 62 mmHg (35-46) Arterial Blood pO2 at Patient Temp 99 mmHg (65-108) Arterial Blood HCO3 24 mmol/L (21-28) Arterial Blood Base Excess -5 mmol/L (-3-3) FiO2 32/ 3lnc Allergies: Coded Allergies: ibuprofen (Verified Allergy, Severe, Swelling, 09/30/21) naproxen (Verified Allergy, Severe, Shortness of Air, 09/30/21) tolerates asa piperacillin (Verified Allergy, Severe, Swelling, 09/30/21) Tolerated cefepime tazobactam (Verified Allergy, Severe, Swelling, 09/30/21) fentanyl (Verified Adverse Reaction, Severe, agitation, 09/30/21) violent behavior Medications: Current Medications Medications (Trade) Dose Ordered Sig/Keshav Route PRN Reason Start Time Stop Time Status Last Admin Dose Admin Methylprednisolone Sodium Succinate (SOLU-Medrol 40MG VIAL) 40 mg DAILY IV 11/25/21 09:00 11/25/21 08:08 Metoprolol Succinate (Toprol Xl) 25 mg DAILY PO 11/24/21 16:00 11/25/21 09:00 Imaging: Imaging: CXR 11/20 Impression: 1. Patchy bilateral airspace opacities may represent pleural effusion or multifocal pneumonia. Chest CTA 11/22 Impression: There is no CT evidence of pulmonary embolism. LE US 11/22 IMPRESSION: No Doppler evidence of lower extremity deep venous thrombosis. CXR 11/24 IMPRESSION: 1. Stable bilateral perihilar and basilar opacities. 2. Stable small pleural effusions. Renal US 11/25 pending PE: GEN: mild distress - laying in bed, staff present for rapid response - more stable now LUNGS: NC 3L HEART: irregular ABD: non-distended NEURO/PSYCH: awake and alert A/P: A/P: Acute resp failure, NSTEMI - COPD, CHF, NICM ESTEFANI, hyponatremia, hypokalemia Acid reflux, nausea Chronic anemia - stable H/o GERD CRC screen, h/o adenomatous polyp - UTD (09/2021) Diverticulosis, hemorrhoids S/p cholecystectomy H/o A Fib on Plavix COVID negative 11/20 -- Nausea probably multi-factorial w/ pulm, renal, and electrolyte issues. Rapid response currently - will follow-up later. Would continue with some sort of acid-burrer hand if okay w/ nephrology - currently has PO PPI QD - could change to IV if indicated or increase to BID. SOPHIE DUPONT Nov 25, 2021 12:46
--- NOTE | 2021-11-25 14:12 | RAD ---
XR CHEST 1V INDICATION: Reason: resp failure / Spl. Instructions: / History: . COMPARISON STUDY: 11/24/2021. FINDINGS: Life Support Devices: Right IJ Port-A-Cath. Left pectoral pacemaker. Lungs: Normal lung volume. Slightly improved bilateral perihilar and basilar opacities. Pleura: Stable small pleural effusions. Heart and Mediastinum: Stable cardiomediastinal silhouette and great vessels. Bones and Soft Tissues: Stable regional skeleton and soft tissues. IMPRESSION: 1. Slightly improved bilateral opacities. 2. Stable small pleural effusions Electronically signed by: Randell Atkins MD (11/25/2021 2:09 PM) [id number]
--- NOTE | 2021-11-25 15:05 | RAD ---
EXAM: RENAL ULTRASOUND CLINICAL HISTORY: Reason: acute kidney injury, hyperkalemia, renal calculus on CT 2020. COMPARISON: PET/CT 09/18/2021. TECHNIQUE: Ultrasound examination of the bilateral kidneys and urinary bladder was performed. FINDINGS: The right kidney measures 10.1 x 4.2 x 4.1 cm. Left kidney measures 9.5 x 3.8 x 4.6 cm. Both kidneys are normal in echogenicity. Mild lobulation of the cortex of the right kidney, unchanged. No definite nephrolithiasis visualized. No hydronephrosis. The urinary bladder is normal. Hepatic steatosis is noted. IMPRESSION: No hydronephrosis or definite nephrolithiasis. Electronically signed by: Emma Lizama MD (11/25/2021 3:02 PM) [id number]
[2021-11-25] MEDS ORDERED: NOREPINEPHRINE VIAL 8 MG in IV DEXTROSE 5% 250 ML IV PRN (17:00)
[2021-11-25] MEDS ORDERED: ATROPINE 0.5 MG/5 ML DISP.SYRINGE. IV PRN (17:15)
[2021-11-25] MEDS ORDERED: IV NORMAL SALINE 500ML BAG 500 ML IV PRN (17:15)
[2021-11-25] MEDS ORDERED: DEXMEDETOMIDINE 400 MCG in IV NORMAL SALINE 100ML 96 ML IV PRN (17:15)
[2021-11-25] MEDS ORDERED: CALCIUM GLUCONATE 1,000 MG/10 ML VIAL. IVP ONE (17:15)
[2021-11-25 17:27] LABS: BASE EXCESS COOX -3 mmol/L (-3-3); HCO3 COOX 22 mmol/L (21-28); METHEMOGLOBIN 0.3 % (0.0-1.9); OXYHEMOGLOBIN 96.4 %; PCO2 COOX 39 mmHg (35-46); PO2 COOX 104 mmHg (65-108); SAT O2 COOX 97 % (92-99)
[2021-11-25] MEDS ORDERED: FUROSEMIDE 40 MG/4 ML VIAL. IVP ONE (17:45)
[2021-11-25 18:42] LABS: CALCIUM 8.1 mg/dL (8.5-10.1); CREATININE 1.9 mg/dL (0.6-1.0); GFR 26.4
[2021-11-25 18:54] LABS: POTASSIUM 8.2 mmol/L (3.5-5.1)
--- NOTE | 2021-11-25 19:50 | NUR ---
pt was transferred to icu room 115 at 1715. pt on bipap, bp low, levophed started and rapidly titrated to achieve map >65. Pt also started on precedex gtt d/t increased anxiety, desired RASS score achieved at starting rate. attempted to place a peripheral iv in addition to pt port a cath, unsuccessfully, accucath also attempted unsuccessfully. Ortiz catheter was placed and minimal straw colored urine returned. pt av paced on monitor. , germán went home for the night. labs drawn per dr moeller, critical potassium called to dr marte who gave orders for dialysis catheter insertion, she called reduction furnace operator IR physician who is supposed to be coming in to start line.
[2021-11-25] MEDS ORDERED: EPINEPHrine SYRINGE 1 MG/10 ML SYRINGE. ONE ×3 (20:14→21:00)
[2021-11-25] MEDS ORDERED: EPINEPHrine VIAL 5 MG in IV NORMAL SALINE 250ML 250 ML IV PRN (20:15)
[2021-11-25] MEDS ORDERED: EPINEPHrine 1 MG/ML VIAL ONE (20:24)
[2021-11-25] MEDS ORDERED: CALCIUM CHLORIDE 1,000 MG/10 ML DISP.SYRIN ONE (21:00)
[2021-11-25] MEDS ORDERED: SODIUM BICARB ADULT 8.4% 50 MEQ/50 ML DISP.SYRIN. ONE (21:00)
[2021-11-25] MEDS ORDERED: AMIODARONE 150 MG/3 ML VIAL ONE (21:00)
--- NOTE | 2021-11-25 21:28 | NUR ---
Patient very anxious upon start of shift, constantly trying to sit up, moving arms, and grabbing at bipap. Patient already on continuous precedex gtt and levophed. Having to hold arm down in order to get BP. Precedex bolus given to calm patient. Notified by previous RN that Dr. Quan was coming in at [address] dialysis catheter due to critically elevated potassium. Patient took bipap mask back off, bipap mask was placed back on face. Patient became less and less responsive. Noticed abrupt EKG changes. Able to dopper a femoral pulse, a few minutes later could no longer hear on doppler or feel pulse. Gayle Deutsch called at 1957. This RN had already attempted to call for permission for dialysis catheter. Both numbers were attempted with one of them allowing voicemail. Voicemail was left. A few more calls were attempted, but could not get a hold of . answered phone around 2099 and notified of patient's passing.
--- NOTE | 2021-11-25 21:30 | NUR ---
Patient arrived to unit at approximately 2100, took belongings with patient including cellphone, glasses, and purse. All questions answered.
--- NOTE | 2021-11-25 22:12 | PDOC3 ---
Discharge Summary Visit Information Date of Admission: Nov 20, 2021 Date of Discharge: Nov 25, 2021 Final Diagnosis PEA arrest on 11/25 Acute on chronic hypoxic respiratory failure acute renal failure, ATN with acute hyperkalemia, Elevated troponins due to demand ischemia Elevated BNP likely due to volume overload versus chronic hypoxia, acute combined CHF exacerbatino COPD with chronic bronchitis Isolated elevated alkaline phosphatase History of CAD asymptomatic Diabetes mellitus type 2; insulin requiring Essential hypertension hyperlipidemia Acquired hypothyroidism History of AICD Hx tobacco abuse (quit 3 years ago) History of Present Illness Problems Medical Problems: (1) Acute exacerbation of CHF (congestive heart failure) Status: Acute (2) Elevated troponin Status: Acute Brief Hospital Course Allergies Allergies Coded Allergies Type Severity Reaction Last Updated Verified ibuprofen Allergy Severe Swelling 09/30/21 Yes naproxen Allergy Severe Shortness of Air 09/30/21 Yes piperacillin Allergy Severe Swelling 09/30/21 Yes tazobactam Allergy Severe Swelling 09/30/21 Yes fentanyl Adverse Reaction Severe agitation 09/30/21 Yes Vital Signs Vital Signs Date Time Temp Pulse Resp B/P (MAP) Pulse Ox O2 Delivery O2 Flow Rate FiO2 11/25/21 20:00 Bi-pap 11/25/21 19:00 60 17 110/51 11/25/21 17:45 96 11/25/21 17:15 96.3 96.3 11/25/21 11:00 3.0 Lab Results Laboratory Tests Test 11/24/21 03:40 11/24/21 06:00 11/24/21 09:50 11/25/21 11:11 Urine Collection Type Unknown Urine Color Yellow Urine Clarity Clear Urine pH 5.5 (<5.0-8.0) Urine Specific [place] 1.025 (1.000-1.030) Urine Protein Negative mg/dL (NEG-TRACE) Urine Glucose (UA) Negative mg/dL (NEG) Urine Ketones (Stick) Trace mg/dL (NEG) Urine Blood Negative (NEG) Urine Nitrite Negative (NEG) Urine Bilirubin Negative (NEG) Urine Urobilinogen Dipstick 0.2 mg/dL (0.2 mg/dL) Urine Leukocyte Esterase Negative (NEG) Urine RBC 0 /HPF (0-2) Urine WBC 1-4 /HPF (0-4) Urine Squamous Epithelial Cells Mod /LPF Urine Bacteria Few /HPF (0-FEW) Urine Hyaline Casts Moderate /HPF Urine Mucus Mod /LPF White Blood Count 9.9 x10^3/uL (4.0-11.0) Red Blood Count 2.47 x10^6/uL (3.50-5.40) Hemoglobin 7.3 g/dL (12.0-15.5) Hematocrit 23.4 % (36.0-47.0) Mean Corpuscular Volume 95 fL (79-100) Mean Corpuscular Hemoglobin 30 pg (25-35) Mean Corpuscular Hemoglobin Concent 31 g/dL (31-37) Red Cell Distribution Width 17.7 % (11.5-14.5) Platelet Count 472 x10^3/uL (140-400) Neutrophils (%) (Auto) 94 % (31-73) Lymphocytes (%) (Auto) 2 % (24-48) Monocytes (%) (Auto) 3 % (0-9) Eosinophils (%) (Auto) 0 % (0-3) Basophils (%) (Auto) 0 % (0-3) Neutrophils # (Auto) 9.3 x10^3/uL (1.8-7.7) Lymphocytes # (Auto) 0.2 x10^3/uL (1.0-4.8) Monocytes # (Auto) 0.3 x10^3/uL (0.0-1.1) Eosinophils # (Auto) 0.0 x10^3/uL (0.0-0.7) Basophils # (Auto) 0.0 x10^3/uL (0.0-0.2) Sodium Level 130 mmol/L (136-145) 131 mmol/L (136-145) 125 mmol/L (136-145) Potassium Level 5.9 mmol/L (3.5-5.1) 6.0 mmol/L (3.5-5.1) 6.9 mmol/L (3.5-5.1) Chloride Level 89 mmol/L (98-107) 90 mmol/L (98-107) 88 mmol/L (98-107) Carbon Dioxide Level 38 mmol/L (21-32) 36 mmol/L (21-32) 28 mmol/L (21-32) Anion Gap 3 (6-14) 5 (6-14) 9 (6-14) Blood Urea Nitrogen 38 mg/dL (7-20) 41 mg/dL (7-20) 40 mg/dL (7-20) Creatinine 1.4 mg/dL (0.6-1.0) 1.4 mg/dL (0.6-1.0) 1.5 mg/dL (0.6-1.0) Estimated GFR (Cockcroft-Gault) 37.5 37.5 34.6 Glucose Level 166 mg/dL (70-99) 190 mg/dL (70-99) 161 mg/dL (70-99) Calcium Level 9.0 mg/dL (8.5-10.1) 8.7 mg/dL (8.5-10.1) 8.9 mg/dL (8.5-10.1) Magnesium Level 2.0 mg/dL (1.8-2.4) Test 11/25/21 12:18 11/25/21 17:20 11/25/21 17:27 11/25/21 18:10 O2 Saturation 96 % (92-99) 97 % (92-99) Arterial Blood pH 7.20 (7.35-7.45) 7.38 (7.35-7.45) Arterial Blood pCO2 at Patient Temp 62 mmHg (35-46) 39 mmHg (35-46) Arterial Blood pO2 at Patient Temp 99 mmHg (65-108) 104 mmHg (65-108) Arterial Blood HCO3 24 mmol/L (21-28) 22 mmol/L (21-28) Arterial Blood Base Excess -5 mmol/L (-3-3) -3 mmol/L (-3-3) FiO2 32/ 3lnc 30% bipap Oxyhemoglobin 96.4 % Methemoglobin 0.3 % (0.0-1.9) Carbon Monoxide, Quantitative 0.4 % (0.0-1.9) Glucose (Fingerstick) 180 mg/dL (70-99) Sodium Level 124 mmol/L (136-145) Potassium Level 8.2 mmol/L (3.5-5.1) Chloride Level 87 mmol/L (98-107) Carbon Dioxide Level 26 mmol/L (21-32) Anion Gap 11 (6-14) Blood Urea Nitrogen 45 mg/dL (7-20) Creatinine 1.9 mg/dL (0.6-1.0) Estimated GFR (Cockcroft-Gault) 26.4 Glucose Level 170 mg/dL (70-99) Calcium Level 8.1 mg/dL (8.5-10.1) Test 11/25/21 20:09 Glucose (Fingerstick) 140 mg/dL (70-99) Laboratory Tests Test 11/25/21 11:11 11/25/21 12:18 11/25/21 17:20 11/25/21 17:27 Sodium Level 125 mmol/L (136-145) Potassium Level 6.9 mmol/L (3.5-5.1) Chloride Level 88 mmol/L (98-107) Carbon Dioxide Level 28 mmol/L (21-32) Anion Gap 9 (6-14) Blood Urea Nitrogen 40 mg/dL (7-20) Creatinine 1.5 mg/dL (0.6-1.0) Estimated GFR (Cockcroft-Gault) 34.6 Glucose Level 161 mg/dL (70-99) Calcium Level 8.9 mg/dL (8.5-10.1) O2 Saturation 96 % (92-99) 97 % (92-99) Arterial Blood pH 7.20 (7.35-7.45) 7.38 (7.35-7.45) Arterial Blood pCO2 at Patient Temp 62 mmHg (35-46) 39 mmHg (35-46) Arterial Blood pO2 at Patient Temp 99 mmHg (65-108) 104 mmHg (65-108) Arterial Blood HCO3 24 mmol/L (21-28) 22 mmol/L (21-28) Arterial Blood Base Excess -5 mmol/L (-3-3) -3 mmol/L (-3-3) FiO2 32/ 3lnc 30% bipap Oxyhemoglobin 96.4 % Methemoglobin 0.3 % (0.0-1.9) Carbon Monoxide, Quantitative 0.4 % (0.0-1.9) Glucose (Fingerstick) 180 mg/dL (70-99) Test 11/25/21 18:10 11/25/21 20:09 Sodium Level 124 mmol/L (136-145) Potassium Level 8.2 mmol/L (3.5-5.1) Chloride Level 87 mmol/L (98-107) Carbon Dioxide Level 26 mmol/L (21-32) Anion Gap 11 (6-14) Blood Urea Nitrogen 45 mg/dL (7-20) Creatinine 1.9 mg/dL (0.6-1.0) Estimated GFR (Cockcroft-Gault) 26.4 Glucose Level 170 mg/dL (70-99) Calcium Level 8.1 mg/dL (8.5-10.1) Glucose (Fingerstick) 140 mg/dL (70-99) Brief Hospital Course Ms. Mathur is a 66 old female, admit with shortness of breath, BNP up, treated as CHF, hx of severe COPD, CHF cor pulmonale, was improved over days, then declined rapidly starting AM of 11/25, rapid in AM , notes x2, more oxygen req. acidosis when renal failure, lost renal compensation, worsened Discharge Information Condition at Discharge: / Scheduled Alendronate Sodium (Alendronate Sodium) 70 Mg Tablet, 1 TAB PO WEEKLY for , (Reported) Entered as Reported by: DAMARIS SÁNCHEZ RN on 10/16/2013 Allopurinol (Allopurinol) 300 Mg Tablet, 1 TAB PO DAILY for gout, (Reported) Entered as Reported by: DAMARIS SÁNCHEZ RN on 10/16/2013 Last Action: Continued on 11/21/21 0539 by Nash Hernandez Amitriptyline Hcl (Amitriptyline Hcl) 25 Mg Tablet, 25 MG PO QHS for nerve pain, (Reported) Entered as Reported by: BURTON HORTON on 07/29/19 2106 Last Action: Continued on 11/21/21 0539 by Nash Hernandez Atorvastatin Calcium (Atorvastatin Calcium) 20 Mg Tablet, 20 MG PO HS for FOR CHOLESTEROL, #30 Ref 0 (Reported) Entered as Reported by: SANDRO CRAFT on 09/23/17 1028 Last Action: Continued on 11/21/21 0539 by Nash Hernandez Cholecalciferol (Vitamin D3) (Vitamin D3) 1,000 Unit Tablet, 1 TAB PO DAILY, #30 Ref 5 (Reported) Entered as Reported by: Kenya Hodgson on 01/02/18 1012 Last Action: Continued on 11/21/21 0539 by Nash Hernandez Clopidogrel Bisulfate (Clopidogrel) 75 Mg Tablet, 1 TAB PO DAILY for rx, #90 Ref 1 (Reported) Entered as Reported by: KATT RIVERA on 07/20/21 1308 Last Action: Continued on 11/21/21538 by Nash Hernandez Ferrous Sulfate (Ferrous Sulfate) 325 Mg Tablet, 1 TAB PO DAILY for supplement, #30 Ref 3 (Reported) Entered as Reported by: Eduardo Gonzalez on 07/26/21 0313 Last Action: Continued on 11/21/2139 by Nash Hernandez Fluticasone/Umeclidin/Vilanter (Trelegy Ellipta 100-62.5-25) 1 Each Blst.w.dev, 1 EACH IH DAILY for rx, (Reported) Entered as Reported by: KATT RIVERA on 03/17/20 0748 Gabapentin (Gabapentin ) 100 Mg Capsule, 100 MG PO TID for NEUROGENIC PAIN, (Reported) Entered as Reported by: NURY VAUGHN on 10/18/20 1012 Last Action: Continued on 11/21/21538 by Nash Hernandez Ipratropium/Albuterol Sulfate (Duoneb 0.5-3(2.5) Mg/3 Ml) 3 Ml Ampul.neb, 3 ML NEB Q4HRS for WHEEZING, COUGH for 14 Days, #84 Prescribed by: PHONG YEBOAH MD on 10/22/19 1305 Last Action: Continued on 11/21/21538 by Nash Hernandez Levocetirizine Dihydrochloride (Levocetirizine Dihydrochloride) 5 Mg Tablet, 5 MG PO DAILY for allergies, (Reported) Entered as Reported by: BURTON HORTON on 07/29/19 2106 Levothyroxine Sodium (Levothyroxine Sodium) 50 Mcg Tablet, 1 TAB PO DAILY, #30 Ref 5 (Reported) Entered as Reported by: SANDRO CRAFT on 09/23/17 1028 Last Action: Continued on 11/21/21538 by Nash Hernandez Metoprolol Succinate (Metoprolol Succinate ( Xl )) 25 Mg Tab.er.24h, 25 MG PO DAILY for FOR HYPERTENSION, #30 Ref 0 (Reported) Entered as Reported by: TIA ZAMORA on 05/19/21 0951 Last Action: Continued on 11/24/21 1511 by 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 APRN Montelukast Sodium (Montelukast Sodium Tablet ) 10 Mg Tablet, 10 MG PO HS for FOR ASTHMA, Ref 0 (Reported) Entered as Reported by: BURTON HORTON on 07/29/192105 Last Action: Continued on 11/21/2139 by Nash Hernandez Omeprazole Magnesium (Prilosec Otc) 20 Mg Tablet.dr, 40 MG PO DAILY for rx, (Reported) Entered as Reported by: KATT RIVERA on 03/17/20 0748 Last Action: Converted on 11/23/212054 by Carlitos Kim Potassium Chloride (K-Tab ER) 20 Meq Tablet.er, 20 MEQ PO DAILY for hypokalemia, (Reported) Entered as Reported by: CECILIA NOVAK on 07/30/191942 Roflumilast (Daliresp) 500 Mcg Tablet, 1 TAB PO DAILY, #90 Ref 3 (Reported) Entered as Reported by: SANDRO CRAFT on 09/23/17 1028 Last Action: Continued on 11/21/2139 by Nash Hernandez Ropinirole Hcl (Requip) 1 Mg Tablet, 3 TAB PO QHS, #30 Ref 2 (Reported) Entered as Reported by: SANDRO CRAFT on 09/23/17 1028 Last Action: Continued on 11/21/2139 by Nash Hernandez Sacubitril/Valsartan (Entresto 24 mg-26 mg Tablet) 1 Each Tablet, 1 EACH PO BID for chf for 30 Days, #60 Ref 2 Prescribed by: KJ LORA on 11/19/20 1255 Last Action: Continued on 11/21/2139 by Nash Hernandez Spironolactone (Spironolactone) 25 Mg Tablet, 25 MG PO DAILY for , (Reported) Entered as Reported by: TIA ZAMORA on 05/19/21 0951 Torsemide (Torsemide) 20 Mg Tablet, 2 TAB PO DAILY for , #90 Ref 1 (Reported) Entered as Reported by: Kenya Hodgson on 01/02/18 1012 Scheduled PRN Albuterol Sulfate (Proair Hfa Inhaler) 8.5 Gm Hfa.aer.ad, 1 PUFF INH PRN Q6HRS PRN for SHORTNESS OF BREATH, Ref 0 (Reported) Entered as Reported by: SANDRO CRAFT on 09/23/17 1028 Last Action: Continued on 11/21/21 05 by Nash Hernandez Diclofenac Sodium (Voltaren Arthritis Pain) 20 Gm Gel..gram., 20 GM TP PRN PRN for PAIN, (Reported) Entered as Reported by: TIA ZAMORA on 05/19/21 0940 Last Action: Continued on 11/21/21538 by Nash Hernandez Patient Instructions Patient Instructions she this evening after code blue run for about 30 minutes, PEA arrest, hypoxia, no shockable rhythm, no Vfib or vtach I was present for code and was present when family came to sign for the body Justicifation of Admission Dx: Justifications for Admission: Justification of Admission Dx: Yes DEMETRA BABIN MD Nov 25, 2021 22:12
== END 2021-11-25 20:30 ==
LOC: ER 18:38 → 6 SOUTH 20:12 → 1 WEST ICU 11-25 17:15
PROVIDERS: ADMIT Internal Medicine; ATTEND Internal Medicine
PROC: 5A09357 Assistance with Respiratory Ventilation, Less than 24 Consecutive Hours, Continuous Positive Airway Pressure (ICD-10-PCS; principal; 2021-11-25)
DX: I13.0 Hypertensive heart and chronic kidney disease with heart failure and stage 1 through stage 4 chronic kidney disease, or unspecified chronic kidney disease (principal); I50.33 Acute on chronic diastolic (congestive) heart failure; I21.A1 Myocardial infarction type 2; J96.21 Acute and chronic respiratory failure with hypoxia; N17.0 Acute kidney failure with tubular necrosis; E87.1 Hypo-osmolality and hyponatremia; J44.0 Chronic obstructive pulmonary disease with (acute) lower respiratory infection; J44.1 Chronic obstructive pulmonary disease with (acute) exacerbation; I42.8 Other cardiomyopathies; D12.3 Benign neoplasm of transverse colon; E03.9 Hypothyroidism, unspecified; E11.22 Type 2 diabetes mellitus with diabetic chronic kidney disease; E78.00 Pure hypercholesterolemia, unspecified; E78.5 Hyperlipidemia, unspecified; E87.5 Hyperkalemia; E87.6 Hypokalemia; F32.A Depression, unspecified; F41.9 Anxiety disorder, unspecified; G25.81 Restless legs syndrome; I25.10 Atherosclerotic heart disease of native coronary artery without angina pectoris; I25.5 Ischemic cardiomyopathy; I27.29 Other secondary pulmonary hypertension; I27.81 Cor pulmonale (chronic); I34.0 Nonrheumatic mitral (valve) insufficiency; I46.9 Cardiac arrest, cause unspecified; I48.0 Paroxysmal atrial fibrillation; J20.9 Acute bronchitis, unspecified; K21.9 Gastro-esophageal reflux disease without esophagitis; K57.30 Diverticulosis of large intestine without perforation or abscess without bleeding; K64.8 Other hemorrhoids; M10.9 Gout, unspecified; M19.90 Unspecified osteoarthritis, unspecified site; M81.0 Age-related osteoporosis without current pathological fracture; N18.9 Chronic kidney disease, unspecified; Z79.02 Long term (current) use of antithrombotics/antiplatelets; Z79.4 Long term (current) use of insulin; Z79.899 Other long term (current) drug therapy; Z82.49 Family history of ischemic heart disease and other diseases of the circulatory system; Z87.891 Personal history of nicotine dependence; Z90.49 Acquired absence of other specified parts of digestive tract; Z90.710 Acquired absence of both cervix and uterus; Z95.810 Presence of automatic (implantable) cardiac defibrillator; Z96.659 Presence of unspecified artificial knee joint; Z99.81 Dependence on supplemental oxygen; Z88.8 Allergy status to other drugs, medicaments and biological substances; Z20.822 Contact with and (suspected) exposure to COVID-19
CPT/HCPCS: 36415; 36600; 71045; 71046; 71275; 76770; 80048; 80053; 81001; 82805; 82962; 83735; 83880; 84100; 84484; 85007; 85025; 87426; 93005; 93970; 94640; 94660; 94760; J0171; J0282; J0610; J1650; J1940; J2060; J2405; J2920; J3475; J3490; J7030; J7050; J7060; Q9967; U0003; 97110-GO; 97110-GP; 97116-GP; 99285-25; G0378